=== PATIENT | male | born 1965 | race Caucasian/White ===

== ENCOUNTER 2022-11-15 09:22 | Emergency (ER) | payer OTHER, SELFPAY ==
[2022-11-15 09:27] VITALS: BP 114/78; PULSE 93; RESP 18; TEMP 36.9; O2SAT 99; BMI 40.7
--- NOTE | 2022-11-15 09:53 | XR_ITS ---
[facility] [place] [id number] Patient Name: JUAN VILLAVICENCIO MRN: [id number] date: 1965 Sex: M Assigned Patient Location: ER Current Patient Location: ED.MAIN Accession/Order Number: [id number] Exam Date: 11/15/2022 09:40 Report Date: 11/15/2022 10:19 At the request of: JARAD REBOLLAR Procedure: XR hip RT 2V w/ pelvis STUDY: XR hip RT 2V w/ pelvis, [id number] HISTORY: pain COMPARISON: None FINDINGS: No acute fracture, dislocation, or suspicious osseous lesion. No evidence of osteonecrosis. Minimal osteoarthritis of the right hip. Prominence of the left femoral head neck junction which can be exposed to left-sided CAM-type femoral acetabular impingement. XR/XR hip RT 2V w/ pelvis IMPRESSION: No acute osseous abnormality. Electronically authenticated by: LEMUEL CAMPOS Date: 11/15/2022 10:19
--- NOTE | 2022-11-15 12:19 | ED.GENADUL1 ---
HPI - General Adult General Chief complaint: Extremity Problem, Nontraumatic Stated complaint: HIP PAIN Time Seen by Provider: 11/15/22 12:08 Source: patient Mode of arrival: walk-in Limitations: no limitations History of Present Illness HPI narrative: Patient is a 57-year-old male who is presenting to the Emergency Room today with chief complaint of cellulitis of left leg, pain to left leg, and also right hip pain secondary to the pain to left leg is causing him to put more weight onto his right leg/hip. Patient has no systemic complaints. Patient has no fever, chills, nausea, vomiting, or any other systemic complaints. Patient has no headache. No chest pain or shortness of breath. No significant swelling in the left leg compared to the right, but he does have a bandlike redness/cellulitis starts around his right ankle and progresses up to the right knee. Patient has circumferential redness and swelling. Patient does have a PCP. Patient is a diabetic. Patient states that he is stubborn and didn't call anybody until today he came into the Emergency Room. No other acute complaints. . All systems are negative except as noted/marked. All systems reviewed and otherwise negative. . Nurses note and vital signs reviewed and patient is not hypoxic. General: The patient appears well and in no apparent distress. Patient is resting comfortably on cart. Patient is not toxic, lethargic, or listless Skin: Warm, dry, no pallor noted. There is no rash noted. No petechiae, purpura. Patient has diffuse redness/erythema, mild, to the left lower extremity that starts at the left ankle and comes on the way up to the left knee, irregular border. No swelling in the left leg more compared to the right. Patient has no tenderness to palpation to the posterior aspect of his left calf, popliteal fossa, or thigh. No signs of deep vein thrombosis. No pain to the right posterior aspect of his right lower extremity, no signs of deep vein thrombosis. Head: Normocephalic, atraumatic Eye: Normal conjunctiva, no drainage, EOMI. PERRL Ears, Nose, Mouth, and Throat: oral mucosa is moist. Nares patent. Mouth without vesicles. Cardiovascular: Regular Rate and Rhythm, no murmur, gallop, rub Respiratory: Patient is in no distress, no accessory muscle use, lungs are clear to auscultation, no wheezing, rales or rhonchi Back: non-tender, no CVA tenderness bilaterally to percussion. No CT LS midline pain GI: soft, no tenderness to palpation, no masses appreciated. No rebound, guarding, or rigidity noted. No flank pain bilateral, No distention Musculoskeletal: Patient has full range of motion of all of the extremities Except to his left leg. Patient feels like there is mild swelling to left leg, feeling his left leg is tight, he does have full range of motion of left knee, ankle and foot with mild pain deep vein thrombosis, see skin section. no motor, sensory, or focal neurological deficits Neurological: A&O x3, normal speech Psychiatric: Cooperative Related Data Home Medications Medication Instructions Recorded Confirmed amlodipine 5 mg tablet 5 mg PO QDAY 11/15/22 11/15/22 ergocalciferol (vitamin D2) 1,250 1,250 mcg PO QDAY 11/15/22 11/15/22 mcg (50,000 unit) capsule glimepiride 4 mg tablet 4 mg PO QDAY 11/15/22 11/15/22 lisinopril 20 mg tablet 20 mg PO QDAY 11/15/22 11/15/22 meloxicam 15 mg tablet 15 mg PO .qhs 11/15/22 11/15/22 metformin 1,000 mg tablet 1,000 mg PO BID 11/15/22 11/15/22 metoprolol succinate 50 mg 50 mg PO QDAY 11/15/22 11/15/22 tablet,extended release 24 hr pioglitazone 45 mg tablet 45 mg PO QDAY 11/15/22 11/15/22 tadalafil 20 mg tablet 20 mg PO .qhs PRN sexual activity 11/15/22 11/15/22 vardenafil 20 mg tablet 20 mg PO QDAY 11/15/22 11/15/22 Previous Rx's Medication Instructions Recorded cephalexin 500 mg capsule 500 mg PO QID 10 days #40 caps 11/15/22 sulfamethoxazole 800 1 tab PO TID 10 days #30 tabs 11/15/22 mg-trimethoprim 160 mg tablet (Bactrim DS) Allergies Allergy/AdvReac Type Severity Reaction Status Date / Time No Known Drug Allergies Allergy Verified 11/15/22 09:27 [facility] Medical History (Updated 11/15/22 @ 12:12 by Scout Bustos MD) Social History Smoking status: Current every day smoker Exam Constitutional Vital Signs, click to edit/add: Last Vital Signs Temp 98.4 F 11/15/22 09:27 Pulse 93 H 11/15/22 09:27 Resp 18 11/15/22 09:27 BP 114/78 11/15/22 09:27 Pulse Ox 99 11/15/22 09:27 O2 Del Method Room Air 11/15/22 09:27 Course Vital Signs Vital signs: Vital Signs Temperature 98.4 F 11/15/22 09:27 Pulse Rate 93 H 11/15/22 09:27 Respiratory Rate 18 11/15/22 09:27 Blood Pressure 114/78 11/15/22 09:27 Pulse Oximetry 99 11/15/22 09:27 Oxygen Delivery Method Room Air 11/15/22 09:27 Temperature 98.4 F 11/15/22 09:27 Pulse Rate 93 H 11/15/22 09:27 Respiratory Rate 18 11/15/22 09:27 Blood Pressure 114/78 11/15/22 09:27 Pulse Oximetry 99 11/15/22 09:27 Oxygen Delivery Method Room Air 11/15/22 09:27 Medical Decision Making MDM Narrative Medical decision making narrative: Patient's right hip x--ray shows arthritis to the left hip, compared to the right. Patient's pelvis x-ray, bilateral hips, right hip x-ray show no acute findings or changes. Patient was given IM injection of Rocephin, 2 g secondary to his weight. Patient was given 2 tablets of Bactrim today as well to be aggressive with starting antibiotics therapy for left leg cellulitis. No indication for ultrasound testing rule out deep vein thrombosis at this time. Patient understands importance of following up with PCP the next 2 or 3 days. No questions at discharge Discharge Plan Discharge Chief Complaint: Extremity Problem, Nontraumatic Clinical Impression: Cellulitis of left leg, Lower extremity edema, Hip pain, right Patient Disposition: Home, Self-Care Time of Disposition Decision: 12:18 Condition: Fair Prescriptions / Home Meds: New sulfamethoxazole-trimethoprim [Bactrim DS] 800-160 mg tablet 1 tab PO TID 10 Days Qty: 30 0RF cephalexin 500 mg capsule 500 mg PO QID 10 Days Qty: 40 0RF No Action amlodipine 5 mg tablet 5 mg PO QDAY glimepiride 4 mg tablet 4 mg PO QDAY lisinopril 20 mg tablet 20 mg PO QDAY ergocalciferol (vitamin D2) 1,250 mcg (50,000 unit) capsule 1,250 mcg PO QDAY meloxicam 15 mg tablet 15 mg PO .qhs metformin 1,000 mg tablet 1,000 mg PO BID metoprolol succinate 50 mg tablet extended release 24 hr 50 mg PO QDAY pioglitazone 45 mg tablet 45 mg PO QDAY tadalafil 20 mg tablet 20 mg PO .qhs PRN (Reason: sexual activity) vardenafil 20 mg tablet 20 mg PO QDAY Instructions: Cellulitis (ED), Leg Edema (ED), Hip Pain (ED) Additional Instructions: Keep her legs elevated, especially nighttime in your sleeping. The redness here left leg will get outside the skin marker line that was made today before it starts getting better. The redness will go one or 2 fingers outside the line before starts improving like discussed at bedside. Take all your antibiotics as prescribed. If the redness is going up into the middle of your left thigh, and he streaks going up into her middle of the left thigh or into her groin, he started having fever, chills, nausea, vomiting, or any other systemic complaints, return to the Emergency Room. A copy of your x-ray report was given to you. Stand Alone Forms: Portal Instructions Referrals: MARIA L MITTAL [Primary Care Provider] - 1 week
[2022-11-15] MEDS: CEFTRIAXONE 1,000 MG, LIDOCAINE HCL/PF 2.1 ML IM ×2 (12:38→12:39)
[2022-11-15] MEDS: SULFAMETHOXAZOLE/TRIMETHOPRIM 800-160 MG TABLET 2 TAB PO (12:38)
== END 2022-11-15 12:41 | disposition home or self-care (01) ==
PROVIDERS: Emergency Provider Emergency Medicine; PCP Physician Assistant
DX: L03.116 Cellulitis of left lower limb (principal); M25.551 Pain in right hip; R60.0 Localized edema; F17.210 Nicotine dependence, cigarettes, uncomplicated; Z79.899 Other long term (current) drug therapy; Z79.84 Long term (current) use of oral hypoglycemic drugs; E11.9 Type 2 diabetes mellitus without complications
CPT/HCPCS: 73502; 96372; 99284

== ENCOUNTER 2022-11-19 10:35 | Outpatient (OUT) | payer OTHER, SELFPAY ==
--- NOTE | 2022-11-19 10:41 | US_ITS ---
The [address] [address] Patient Name: JUAN VILLAVICENCIO MRN: [id number] date: 1965 Sex: M Assigned Patient Location: US Current Patient Location: US Accession/Order Number: [id number] Exam Date: 11/19/2022 10:42 Report Date: 11/19/2022 11:17 At the request of: MARIA L MITTAL Procedure: US venous doppler LE LT ULTRASOUND OF BILATERAL LOWER EXTREMITY VENOUS SYSTEMS WITH DUPLEX, 11/19/2022 10:42 AM EDT INDICATION: Left lower leg erythema x2 weeks. COMPARISON: None. TECHNIQUE: Multi-planar real-time ultrasonography of the left lower extremity venous systems using grayscale imaging supplemented by color Doppler. Augmentation and compression maneuvers were utilized as needed. FINDINGS: The saphenofemoral junction, common femoral, profunda femoral, superficial femoral, popliteal, posterior tibial and anterior tibial veins are fully compressible. Respiratory variation and waveform response to augmentation within normal limits. US/US venous doppler LE LT IMPRESSION: Negative for deep venous thrombosis within the left lower extremity. Electronically authenticated by: WEN NUNEZ Date: 11/19/2022 11:17
== END 2022-11-19 10:36 | disposition home or self-care (01) ==
LOC: US 10:36
PROVIDERS: PCP Physician Assistant; Visit Provider Physician Assistant
DX: M79.89 Other specified soft tissue disorders (principal); M79.662 Pain in left lower leg; L53.9 Erythematous condition, unspecified
CPT/HCPCS: 93971

== ENCOUNTER 2023-01-26 00:36 | Inpatient (IN) | payer OTHER, SELFPAY ==
[2023-01-26] VITALS (25 sets, daily range): BP systolic 123–185; BP diastolic 62–91; PULSE 10–109; RESP 16–32; TEMP 36.7–39.4; O2SAT 92–96; BMI 49.4
--- NOTE | 2023-01-26 00:39 | ED_ITS ---
HPI - Extremity Problem General Chief complaint: Extremity Problem, Nontraumatic Stated complaint: LEG INFECTION Time Seen by Provider: 01/26/23 00:39 History of Present Illness HPI Narrative: patient presents complaining of redness and pain of his left leg for a couple of days. Last admitted for infection of his leg 11/27. States tonight low grade fever and started to feel weak. He is diabetic. Brought to the ER via Squad. No nausea or chills Complaint: Reports extremity pain and extremity swelling Related Data Home Medications Medication Instructions Recorded Confirmed amlodipine 5 mg tablet 5 mg PO QDAY 11/15/22 11/15/22 ergocalciferol (vitamin D2) 1,250 1,250 mcg PO QDAY 11/15/22 11/15/22 mcg (50,000 unit) capsule glimepiride 4 mg tablet 4 mg PO QDAY 11/15/22 11/15/22 lisinopril 20 mg tablet 20 mg PO QDAY 11/15/22 11/15/22 meloxicam 15 mg tablet 15 mg PO .qhs 11/15/22 11/15/22 metformin 1,000 mg tablet 1,000 mg PO BID 11/15/22 11/15/22 metoprolol succinate 50 mg 50 mg PO QDAY 11/15/22 11/15/22 tablet,extended release 24 hr pioglitazone 45 mg tablet 45 mg PO QDAY 11/15/22 11/15/22 tadalafil 20 mg tablet 20 mg PO .qhs PRN sexual activity 11/15/22 11/15/22 vardenafil 20 mg tablet 20 mg PO QDAY 11/15/22 11/15/22 Previous Rx's Medication Instructions Recorded cephalexin 500 mg capsule 500 mg PO QID 10 days #40 caps 11/15/22 sulfamethoxazole 800 1 tab PO TID 10 days #30 tabs 11/15/22 mg-trimethoprim 160 mg tablet (Bactrim DS) Allergies Allergy/AdvReac Type Severity Reaction Status Date / Time No Known Drug Allergies Allergy Verified 11/15/22 09:27 Review of Systems ROS Status of ROS 10 or more systems reviewed and unremarkable except as noted in history and below [facility] Medical History (Updated 01/26/23 @ 02:42 by Zach Houston MD) Diabetes ?E11.9 - Type 2 diabetes mellitus without complications (ICD-10) High cholesterol ?E78.00 - Pure hypercholesterolemia, unspecified (ICD-10) Hypertension ?I10 - Essential (primary) hypertension (ICD-10) Social History Smoking status: Former smoker Exam Constitutional Vital Signs, click to edit/add: Last Vital Signs Temp 99.1 F 01/26/23 00:38 Pulse 109 H 01/26/23 00:38 Resp 16 01/26/23 00:38 BP 160/91 H 01/26/23 00:38 Pulse Ox 96 01/26/23 00:38 O2 Del Method Room Air 01/26/23 00:38 Common normals: no apparent distress, average body habitus, oriented x3, no limitations, healthy appearing, alert and well nourished Eye Common normals: EOMs intact bilaterally and conjunctivae normal Respiratory Common normals: normal respiratory effort, no retractions, no use of accessory muscles and clear to auscultation bilaterally Cardio Common normals: regular rate, regular rhythm, S1 normal heart sound and S2 normal heart sound GI Common normals: Normal to inspection, nondistended, normoactive bowel sounds present and soft to palpation Extremity Other: swelling and erythema of his entire lower left leg. mild tenderness. Leg is warm Neuro Common normals: oriented x3, CN's II-XII intact bilaterally, moves all extremities and no focal motor deficits Psych Appearance: grossly normal Course Vital Signs Vital signs: Vital Signs Temperature 99.1 F 01/26/23 00:38 Pulse Rate 109 H 01/26/23 00:38 Respiratory Rate 16 01/26/23 00:38 Blood Pressure 160/91 H 01/26/23 00:38 Pulse Oximetry 96 01/26/23 00:38 Oxygen Delivery Method Room Air 01/26/23 00:38 Temperature 99.1 F 01/26/23 00:38 Pulse Rate 109 H 01/26/23 00:38 Respiratory Rate 16 01/26/23 00:38 Blood Pressure 160/91 H 01/26/23 00:38 Pulse Oximetry 96 01/26/23 00:38 Oxygen Delivery Method Room Air 01/26/23 00:38 MDM - Extremity (Nontraumatic) MDM Narrative Medical decision making narrative: patient is diabetic. Past history of cellulitis left leg 11/27. Now presents complaining of redness and swelling of the left leg for past couple of days. Low grade fever at home. Started to feel weak tonight and arrives via Squad. Low grade fever of 99.1., tachycardia and elevated lactic acid and WBC 15.6. left leg is warm erythematous and tender. Also has mildly elevated d-dimer. IV clindamycin ordered. Hospitalist paged for admission Lab Data Labs: Lab Results 01/26/23 Range/Units 01:09 WBC 15.6 H (4.0-11.0) 10^3/uL RBC 4.42 L (4.70-6.10) 10^6/uL Hgb 13.4 L (14.0-18.0) g/dL Hct 40.3 L (42.0-54.0) % MCV 91.2 (80.0-94.0) fL MCH 30.3 (25.9-34.0) pg MCHC 33.3 (29.9-35.2) g/dL RDW 14.6 (11.0-15.0) % Plt Count 163 (150-450) 10^3/uL MPV 9.8 (9.5-13.5) fL Neut % (Auto) 93.3 H (43.0-75.0) % Lymph % (Auto) 2.6 L (20.5-60.0) % Starke % (Auto) 3.2 (1.7-12.0) % Eos % (Auto) 0.0 L (0.9-7.0) % Baso % (Auto) 0.1 L (0.2-2.0) % Neut # (Auto) 14.5 H (1.4-6.5) 10^3/uL Lymph # (Auto) 0.4 L (1.2-3.8) 10^3/uL Starke # (Auto) 0.5 (0.3-0.8) 10^3/uL Eos # (Auto) 0.0 (0.0-0.7) 10^3/uL Baso # (Auto) 0.0 (0.0-0.1) 10^3/uL Abs Immat Gran (auto) 0.13 H (0.00-0.03) 10^3/uL Imm/Tot Granulo (auto) 0.8 H (0.0-0.5) % D-Dimer 1.23 H* (<=0.59) mg/L FEU Sodium 131 L (136-145) mmol/L Potassium 3.7 (3.5-5.1) mmol/L Chloride 93 L (98-107) mmol/L Carbon Dioxide 29.3 (21.0-32.0) mmol/L Anion Gap 12.4 BUN 18.0 (7.0-18.0) mg/dL Creatinine 1.25 (0.70-1.30) mg/dL Est GFR ( Amer) >60 (>=60) Est GFR (Non-Af Amer) 59 L (>=60) BUN/Creatinine Ratio 14.4 Glucose 293 H (74-106) mg/dL Lactate 2.6 H* (0.4-2.0) mmol/L Calcium 9.2 (8.5-10.1) mg/dL Troponin I High Sens 45.8 (4.0-76.1) pg/mL Discharge Plan Discharge Chief Complaint: Extremity Problem, Nontraumatic Clinical Impression: Cellulitis of left leg, Elevated d-dimer Prescriptions / Home Meds: No Action amlodipine 5 mg tablet 5 mg PO QDAY glimepiride 4 mg tablet 4 mg PO QDAY lisinopril 20 mg tablet 20 mg PO QDAY ergocalciferol (vitamin D2) 1,250 mcg (50,000 unit) capsule 1,250 mcg PO QDAY meloxicam 15 mg tablet 15 mg PO .qhs metformin 1,000 mg tablet 1,000 mg PO BID metoprolol succinate 50 mg tablet extended release 24 hr 50 mg PO QDAY pioglitazone 45 mg tablet 45 mg PO QDAY tadalafil 20 mg tablet 20 mg PO .qhs PRN (Reason: sexual activity) vardenafil 20 mg tablet 20 mg PO QDAY sulfamethoxazole-trimethoprim [Bactrim DS] 800-160 mg tablet 1 tab PO TID 10 Days Qty: 30 0RF cephalexin 500 mg capsule 500 mg PO QID 10 Days Qty: 40 0RF Referrals: MARIA L MITTAL [Primary Care Provider] - 1 week
--- NOTE | 2023-01-26 00:42 | ECG_ITS ---
[facility] Test Date: 2023-01-26 Pat Name: JUAN VILLAVICENCIO Department: Room: - Gender: Male Physical Therapist Aide: : 1965 Requested By: [id number] Order Number: [id number] Reading MD: VILMA MULLER Measurements Intervals [place] Rate: 106 P: 70 OR: 144 QRS: 13 QRSD: 112 T: 20 QT: 372 QTc: 434 Interpretive Statements 1120 Sinus tachycardia RIGHT BUNDLE BRANCH BLOCK [address] depression, probably normal 9140 abnormal rhythm ECG No previous ECG available for comparison Electronically Signed On 01-27-2023 7:17:36 EST by VILMA MULLER
[2023-01-26 01:16] LABS: Basophils Percent Auto 0.1 % (0.2-2.0); Hematocrit 40.3 % (42.0-54.0); Hemoglobin 13.4 g/dL (14.0-18.0); Immature Granulocytes Abs Auto 0.13 10^3/uL (0.00-0.03); Immature Granulocytes Pct Auto 0.8 % (0.0-0.5); Lymphocytes Absolute Auto 0.4 10^3/uL (1.2-3.8); Lymphocytes Percent Auto 2.6 % (20.5-60.0); Mean Corpuscular HGB Conc 33.3 g/dL (29.9-35.2); Mean Corpuscular Hemoglobin 30.3 pg (25.9-34.0); Mean Corpuscular Volume 91.2 fL (80.0-94.0); Mean Platelet Volume 9.8 fL (9.5-13.5); Monocytes Absolute Auto 0.5 10^3/uL (0.3-0.8); Monocytes Percent Auto 3.2 % (1.7-12.0); Neutrophils Absolute Auto 14.5 10^3/uL (1.4-6.5); Neutrophils Percent Auto 93.3 % (43.0-75.0); Platelet Count 163 10^3/uL (150-450); Red Blood Count 4.42 10^6/uL (4.70-6.10); Red Cell Distribution Width 14.6 % (11.0-15.0); White Blood Count 15.6 10^3/uL (4.0-11.0)
[2023-01-26] MEDS: 0.9 % SODIUM CHLORIDE 1,000 ML 100 ML IV ×3 (01:19→19:42)
[2023-01-26] MEDS: CLINDAMYCIN PHOSPHATE/D5W 900 MG/50 ML PIGGYBACK 100 MG IV (01:20)
[2023-01-26 01:34] LABS: Anion Gap 12.4; BUN Creatinine Ratio 14.4; Calcium 9.2 mg/dL (8.5-10.1); Carbon Dioxide 29.3 mmol/L (21.0-32.0); Chloride 93 mmol/L (98-107); Estimated GFR (African America >60 (>=60); Estimated GFR (Non-African Ame 59 (>=60); Glucose 293 mg/dL (74-106); Potassium 3.7 mmol/L (3.5-5.1); Sodium 131 mmol/L (136-145); Troponin I High Sensitivity 45.8 pg/mL (4.0-76.1)
[2023-01-26 01:40] LABS: Lactate/Lactic Acid 2.6 mmol/L (0.4-2.0)
[2023-01-26 01:49] LABS: D Dimer 1.23 mg/L FEU (<=0.59)
--- NOTE | 2023-01-26 04:32 | P.PN_ITS ---
Progress Note: Subjective Subjective Interval history: 58yo man with a PMHx of HTN and T2DM who presented to the ED with LLE pain and swelling. Exam Constitutional Vital Signs, click to edit/add: Last Vital Signs Temp 98.7 F 01/26/23 03:52 Pulse 10 L 01/26/23 03:52 Resp 20 01/26/23 03:52 BP 185/62 H 01/26/23 03:52 Pulse Ox 92 L 01/26/23 03:52 O2 Del Method Room Air 01/26/23 03:52 Extremity General: other findings (Erythema to left lower extremity from ankle to knee. There is a small wound) Progress Note: Objective Labs Labs: Short CBC 01/26/23 Range/Units 01:09 WBC 15.6 H (4.0-11.0) 10^3/uL Hgb 13.4 L (14.0-18.0) g/dL Hct 40.3 L (42.0-54.0) % Plt Count 163 (150-450) 10^3/uL BMP 01/26/23 01:09 Sodium 131 L Potassium 3.7 Chloride 93 L Carbon Dioxide 29.3 BUN 18.0 Creatinine 1.25 Glucose 293 H Calcium 9.2 Progress Note: A&P Assessment and Plan (1) Cellulitis of left leg: Assessment and Plan: - admit to hospitalist service - c/w ceftriaxone and vancomycin - f/u blood cultures - pain control - track border of cellulitis (2) Elevated d-dimer: Assessment and Plan: He has an elevated D-dimer and swelling in his leg. Most likely the leg is swollen from cellulitis but we should rule out a DVT. - check US duplex of left LE (3) Diabetes: Assessment and Plan: - insulin sliding scale - restart oral medications (4) High cholesterol: Assessment and Plan: - c/w simvastatin (5) Hypertension: Assessment and Plan: - c/w lisinopril, amlodipine, metoprolol Telemedicine Attestation Telemedicine Attestation I conducted this encounter from [place] via secure live, [id number] video conference with the patient, located at [facility] with Kaitlin. Prior to the interview, the risks and benefits of telemedicine were discussed with the patient and verbal consent was obtained.
--- NOTE | 2023-01-26 04:50 | US_ITS ---
[address] [address] Patient Name: JUAN VILLAVICENCIO MRN: [id number] date: 1965 Sex: M Assigned Patient Location: MS Current Patient Location: MS Accession/Order Number: [id number] Exam Date: 01/26/2023 07:40 Report Date: 01/26/2023 09:58 At the request of: CHECO CARBONE Procedure: US venous doppler LE LT EXAMINATION: US venous doppler LE LT HISTORY: elevated D-dimer, swelling of left foot COMPARISON: Ultrasound venous Doppler lower extremity left 11/19/2022 FINDINGS: REGION: Left lower extremity THROMBI: None. COMPRESSIBILITY: Normal compressibility. FLOW: Normal waveform and antegrade flow between 5 and 20 cm/s. OTHER: None. US/US venous doppler LE LT IMPRESSION: 1. No deep vein thrombus within the left lower extremity. Electronically authenticated by: LYLY RUVALCABA Date: 01/26/2023 09:58
[2023-01-26 05:38] LABS: Basophils Percent Auto 0.2 % (0.2-2.0); Hematocrit 36.1 % (42.0-54.0); Hemoglobin 12.2 g/dL (14.0-18.0); Immature Granulocytes Abs Auto 0.17 10^3/uL (0.00-0.03); Immature Granulocytes Pct Auto 1.2 % (0.0-0.5); Lymphocytes Absolute Auto 0.5 10^3/uL (1.2-3.8); Lymphocytes Percent Auto 3.7 % (20.5-60.0); Mean Corpuscular HGB Conc 33.8 g/dL (29.9-35.2); Mean Corpuscular Hemoglobin 30.7 pg (25.9-34.0); Mean Corpuscular Volume 90.7 fL (80.0-94.0); Mean Platelet Volume 10.2 fL (9.5-13.5); Monocytes Absolute Auto 0.6 10^3/uL (0.3-0.8); Monocytes Percent Auto 3.9 % (1.7-12.0); Neutrophils Absolute Auto 12.9 10^3/uL (1.4-6.5); Platelet Count 146 10^3/uL (150-450); Red Blood Count 3.98 10^6/uL (4.70-6.10); Red Cell Distribution Width 14.4 % (11.0-15.0); White Blood Count 14.2 10^3/uL (4.0-11.0)
[2023-01-26] MEDS: CEFTRIAXONE 1,000 MG in 0.9 % SODIUM CHLORIDE 50 ML 100 MG IV (05:40)
[2023-01-26 05:45] LABS: BUN Creatinine Ratio 15.9; Calcium 8.8 mg/dL (8.5-10.1); Carbon Dioxide 28.5 mmol/L (21.0-32.0); Chloride 95 mmol/L (98-107); Estimated GFR (African America >60 (>=60); Estimated GFR (Non-African Ame >60 (>=60); Glucose 282 mg/dL (74-106); Potassium 3.5 mmol/L (3.5-5.1); Sodium 132 mmol/L (136-145)
[2023-01-26 05:55] LABS: Lactate/Lactic Acid 2.1 mmol/L (0.4-2.0)
[2023-01-26 07:49] LABS: Estimated Average Glucose 171 mg/dL; Glycohemoglobin A1C 7.6 % (4.5-6.2)
[2023-01-26] MEDS: ENOXAPARIN SODIUM 40 MG/0.4 ML SYRINGE SUBQ (09:22)
[2023-01-26] MEDS: HYDROCHLOROTHIAZIDE 25 MG TABLET PO (09:23)
[2023-01-26] MEDS: PIOGLITAZONE 15 MG TABLET 45 MG PO (09:23)
[2023-01-26] MEDS: LISINOPRIL 20 MG TABLET PO ×2 (09:24→20:31)
[2023-01-26] MEDS: AMLODIPINE BESYLATE 5 MG TABLET PO (09:24)
[2023-01-26] MEDS: METOPROLOL SUCCINATE 50 MG TAB.ER.24H PO (09:24)
[2023-01-26] MEDS: INSULIN ASPART 300 UNIT/3 ML PEN SUBQ ×4 (09:24→21:21)
[2023-01-26] MEDS: ACETAMINOPHEN 325 MG TABLET 650 MG PO ×2 (09:45→21:25)
[2023-01-26 10:26] LABS: Lactate/Lactic Acid 1.8 mmol/L (0.4-2.0)
[2023-01-26] MEDS: VANCOMYCIN HCL 2,000 MG in 0.9 % SODIUM CHLORIDE 500 ML 250 MG IV ×2 (10:35→22:23)
[2023-01-26 11:12] LABS: Glucometer 210 mg/dL (74-106)
--- NOTE | 2023-01-26 13:10 | DIETREC ---
Pt's estimated nutrient requirements are calculated at 9322-3782 kcal (20-25 kcal/kg adjusted BW 118.2 kg), 142-177 gm PRO (1.2-1.5 gm/kg adj BW 118.2 kg). Recommend change diet order to 2200 kcal CCD. Also recommend 30 mL PRO-stat BID to ensure adequate PRO for healing and 1 packet Rickey BID to aid wound healing.
--- NOTE | 2023-01-26 13:30 | P.HP_ITS ---
Agree with input and findings from nurse practitioner. Would also add patient meets criteria for his severe sepsis.(Tachycardia, respiratory distress, leukocytosis, positive lactate) treatment currently would be the same. Also thrombocytopenia-we will monitor daily. Sugars well-controlled at home per patient but likely elevated here with the severe sepsis. H&P: HPI History of Present Illness Chief complaint: LEG INFECTION Narrative: Date/time of exam: 01/26/23 0891 This is a 58-year-old male patient with a past medical history as outlined below including poorly controlled DM 2, hypertension, and hyperlipidemia; who presented to the ED with a recurrent left lower extremity cellulitic infection. The patient was seen in the ED in November for the same issue and was treated effectively with outpatient antibiotics. Patient reports complete resolution of that infection. He scraped his left haines on something last week. He noted yesterday that he had a red band developing in the area around that injury. By the time he went back to bed there was significant increase in the redness and swelling and pain of that extremity. He was unable able to sleep due to fevers (100.0) and chills and presented to the ED for further evaluation. Work-up in the ED noted leukocytosis (15.6), lactic acidosis (2.6), borderline fever (99.9), and clinical findings consistent with significant cellulitis. He was admitted last night to the hospitalist service for definitive treatment with IV antibiotics. At the time of my exam this morning the patient is warm to the touch and repeat temperature taken by nursing is now 102.9. The patient is alert and oriented in no mottling is noted on exam. His BP remains stable, but he is mildly tachycardic. Cellulitis encompassing more than 50% of the LLE is noted on exam. No wound drainage is present. Clinical concern exists for sepsis based on exam findings. He reports feeling a little better after receiving IVFs and antibiotics overnight. 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 - Other postprocedural complications and disorders of genitourinary system (ICD-10) ?N47.5 - Adhesions of prepuce and glans penis (ICD-10) Surgical History (Updated 01/26/23 @ 03:45 by Yuli Lo) Hx of tonsillectomy ?Z90.89 - Acquired absence of other organs (ICD-10) Family History (Updated 01/26/23 @ 03:47 by Yuli Lo) Sister Family history of cancer Mother Family history of diabetes mellitus Family history of hypertension Family history of myocardial infarction Father Family history of diabetes mellitus Grandfather Family history of stroke Social History (Updated 01/26/23 @ 03:50 by Yuli Lo) Within the past year, how often did you have a drink containing alcohol: 2-3 times a week Within the past year, how many standard drinks containing alcohol did you have on a typical day: 3 or 4 Within the past year, how often did you have six or more drinks on one occasion: less than monthly Total score: 3 Score interpretation: A score of 4 or more indicates drinking is likely to affect patient's safety. 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 Highest level of school completed/degree received: 11th grade Do you want help with school or training: No Are you now , , , , never or living with a partner: In a typical week, how many times do you talk on the telephone with family, friends, or neighbors: 3 or more times per week How often do you get together with friends or relatives: twice per week How often do you attend jehovah's witness or mandaen services: 1-3 times per year Do you belong to any clubs or organizations such as jehovah's witness groups unions, fraternal or athletic groups, or school groups: no Total score: 1 Score interpretation: A score of less than or equal to 1 indicates the most socially isolated. Little interest or pleasure in doing things: not at all Feeling down, depressed, or hopeless: not at all Feel stressed/tense/nervous/anxious/difficulty sleeping: not at all Due to disability, difficulty making decisions: No Do you think of yourself as: straight/heterosexual Gender Identity: male Meds Home Medications and Allergies Home Medications Medication Instructions Recorded Confirmed Type amlodipine 5 mg tablet 5 mg PO QDAY 11/15/22 01/26/23 History ergocalciferol (vitamin D2) 1,250 1,250 mcg PO .COMPLEX 11/15/22 01/26/23 History mcg (50,000 unit) capsule glimepiride 4 mg tablet 4 mg PO BID 11/15/22 01/26/23 History lisinopril 20 mg tablet 20 mg PO QDAY 11/15/22 01/26/23 History meloxicam 15 mg tablet 15 mg PO .qhs 11/15/22 01/26/23 History metformin 1,000 mg tablet 1,000 mg PO BID 11/15/22 01/26/23 History metoprolol succinate 50 mg 50 mg PO QDAY 11/15/22 01/26/23 History tablet,extended release 24 hr pioglitazone 45 mg tablet 45 mg PO QDAY 11/15/22 01/26/23 History lisinopril 20 1 tab PO .AM 01/26/23 01/26/23 History mg-hydrochlorothiazide 25 mg tablet simvastatin 40 mg tablet 40 mg PO BEDTIME 01/26/23 01/26/23 History tizanidine 4 mg capsule 4 mg PO Q8H PRN Back Spasm 01/26/23 01/26/23 History Allergies Allergy/AdvReac Type Severity Reaction Status Date / Time No Known Drug Allergies Allergy Verified 11/15/22 09:27 Exam Constitutional Vital Signs, click to edit/add: Last Vital Signs Temp 99.1 F 01/26/23 11:12 Pulse 102 H 01/26/23 10:32 Resp 18 01/26/23 10:32 BP 137/77 01/26/23 10:32 Pulse Ox 93 L 01/26/23 10:32 O2 Del Method Room Air 01/26/23 10:32 Common normals: no apparent distress, oriented x3, alert and well nourished General appearance: cooperative Nutritional appearance: obese Orientation/consciousness: Yes awake HENMT Common normals: normocephalic, head/scalp atraumatic, hearing grossly normal bilaterally and moist oral mucous membranes Face and sinus: normal facial exam Eye Common normals: PERRL, EOMs intact bilaterally, conjunctivae normal and no scleral icterus Alignment: alignment normal Eyelid: eyelids normal Neck & C-Spine Common normals: full ROM, supple and no JVD Chest Common normals: inspection of chest normal Chest: symmetrical chest wall rise Respiratory Common normals: normal respiratory effort, no retractions, no use of accessory muscles and clear to auscultation bilaterally Effort & inspection: able to speak in complete sentences Cardio Common normals: no JVD, regular rhythm, S1 normal heart sound, S2 normal heart sound, no gallops, no clicks, no murmurs, no rub and peripheral pulses 2+ throughout Rate: tachycardic GI Common normals: Normal to inspection, nondistended, normoactive bowel sounds present, soft to palpation, non-tender, no hepatosplenomegaly, no masses and no bruits Bladder/kidney exam: bladder normal to palpation Back & Pelvis Common normals: thoracic and lumbar spine normal to inspection Extremity Common normals: normal capillary refill General: edema (trace bilat insteps); no clubbing and no cyanosis Left lower extremity: lower leg (Entire lower leg except the foot red, swollen, warm, tender) Neuro Iva Coma Scale: GCS not evaluated Common normals: CN's II-XII intact bilaterally, moves all extremities, no focal motor deficits and no sensory deficits noted Speech: speech normal Motor exam: strength 5/5 throughout Psych Common normals: mental status grossly normal, thought process normal, affect normal and activity/motor behavior normal Results Labs Labs: Short CBC 01/26/23 01/26/23 Range/Units 01:09 05:10 WBC 15.6 H 14.2 H (4.0-11.0) 10^3/uL Hgb 13.4 L 12.2 L (14.0-18.0) g/dL Hct 40.3 L 36.1 L (42.0-54.0) % Plt Count 163 146 L (150-450) 10^3/uL BMP 01/26/23 01/26/23 01:09 05:10 Sodium 131 L 132 L Potassium 3.7 3.5 Chloride 93 L 95 L Carbon Dioxide 29.3 28.5 BUN 18.0 17.0 Creatinine 1.25 1.07 Glucose 293 H 282 H Calcium 9.2 8.8 Pulse Oximetry Attestation: I have reviewed the pertinent pulse oximetry results. Assessment and Plan Assessment and Plan (1) Sepsis: Assessment and Plan: ACUTE * Adm inpatient * AEB * T-102.9, P-109, R-30, WBC-15.6, Lactic Acid 2.6, Source: LLE Cellulitis * Continue NS IVF as initiated in the ED, after 1 liter bolus was administered * No clinical concern for septic shock at this time * Monitor VS q4h * No blood cultures drawn in ED - draw BC x 2 now * CBC, CMP in AM (2) Cellulitis of left leg: Assessment and Plan: ACUTE * >50% LLE * IVPB Vancomycin and rocephin initiated in the ED * Continue vancomycin * Change gram neg coverage to Zosyn in setting of sepsis for broader empiric coverage * No wound drainage to culture at this time * Cellulitic margins marked (3) Hyponatremia: Assessment and Plan: ACUTE * Likely d/t dehydration in setting of sepsis and concurrent HCTZ administration * Hold HCTZ * IVF as above * CMP daily (4) Elevated d-dimer: Assessment and Plan: ACUTE * Obtain venous doppler study today to r/o DVT of the affected extremity (5) Diabetes: Assessment and Plan: CHRONIC * Hold home glimepiride, pioglitazone, and metformin for now during acute infection/hospitalization * ACHS glucometer checks * CC diet - 2200 Kcal per molded rubber goods cutter recommendations * Med dose SS insulin correction * start Levemir 20 un at HS tonight * A1C 7.6 today - not at goal but not severely abnormal either. Defer to outpatient management after discharge (6) High cholesterol: Assessment and Plan: CHRONIC * Continue home statin * low threshold to hold if renal or liver function is impaired (7) Hypertension: Assessment and Plan: CHRONIC * Continue home ACEi * Low threshold to hold if BPs become soft in setting of sepsis * Hold HCTZ d/t hyponatremia/sepsis/IVF admin
[2023-01-26] MEDS: PIPERACILLIN SODIUM/TAZOBACTAM 3.375 GM in 0.9 % SODIUM CHLORIDE 50 ML IV ×2 (14:32→21:22)
[2023-01-26 16:13] LABS: Glucometer 154 mg/dL (74-106)
[2023-01-26 20:03] LABS: Glucometer 204 mg/dL (74-106)
[2023-01-26] MEDS: JUVEN PACKET 1 PACKET PO (20:31)
[2023-01-26] MEDS: PROSTAT 15 GM PROTEIN/100 CAL 30 ML LIQUID PACKET PO (20:31)
[2023-01-26] MEDS: TIZANIDINE HCL 4 MG TABLET PO (20:32)
[2023-01-26] MEDS: ATORVASTATIN CALCIUM 20 MG TABLET PO (21:19)
[2023-01-26] MEDS: MELOXICAM 7.5 MG TABLET 15 MG PO (21:19)
[2023-01-26] MEDS: INSULIN DETEMIR 300 UNIT/3 ML INSULN.PEN 20 UNIT SUBQ (21:20)
[2023-01-26 22:34] LABS: Glucometer 267 mg/dL (74-106)
[2023-01-27] VITALS (7 sets, daily range): BP systolic 91–147; BP diastolic 56–81; PULSE 78–93; RESP 18–20; TEMP 36.6–37.4; O2SAT 92–95
[2023-01-27 05:08] LABS: Basophils Percent Auto 0.3 % (0.2-2.0); Eosinophils Absolute Auto 0.1 10^3/uL (0.0-0.7); Eosinophils Percent Auto 0.4 % (0.9-7.0); Hematocrit 36.8 % (42.0-54.0); Immature Granulocytes Abs Auto 0.07 10^3/uL (0.00-0.03); Immature Granulocytes Pct Auto 0.6 % (0.0-0.5); Lymphocytes Absolute Auto 1.1 10^3/uL (1.2-3.8); Lymphocytes Percent Auto 9.4 % (20.5-60.0); Mean Corpuscular HGB Conc 32.6 g/dL (29.9-35.2); Mean Corpuscular Hemoglobin 30.6 pg (25.9-34.0); Mean Corpuscular Volume 93.9 fL (80.0-94.0); Mean Platelet Volume 10.6 fL (9.5-13.5); Monocytes Absolute Auto 1.1 10^3/uL (0.3-0.8); Monocytes Percent Auto 9.6 % (1.7-12.0); Neutrophils Absolute Auto 9.5 10^3/uL (1.4-6.5); Neutrophils Percent Auto 79.7 % (43.0-75.0); Platelet Count 130 10^3/uL (150-450); Red Blood Count 3.92 10^6/uL (4.70-6.10); Red Cell Distribution Width 15.1 % (11.0-15.0); White Blood Count 11.9 10^3/uL (4.0-11.0)
[2023-01-27] MEDS: 0.9 % SODIUM CHLORIDE 1,000 ML 100 ML IV ×2 (05:10→15:29)
[2023-01-27] MEDS: PIPERACILLIN SODIUM/TAZOBACTAM 3.375 GM in 0.9 % SODIUM CHLORIDE 50 ML IV ×3 (05:10→21:28)
[2023-01-27 05:28] LABS: Estimated Average Glucose 171 mg/dL; Glycohemoglobin A1C 7.6 % (4.5-6.2)
[2023-01-27 05:42] LABS: Alanine Aminotransferase 24 U/L (16-63); Albumin Globulin Ratio 0.6; Albumin Level 2.8 g/dL (3.4-5.0); Alkaline Phosphatase 67 U/L (46-116); Aspartate Amino Transferase 31 U/L (15-37); Bilirubin Total 0.7 mg/dL (0.2-1.0); Calcium 8.6 mg/dL (8.5-10.1); Carbon Dioxide 27.7 mmol/L (21.0-32.0); Chloride 98 mmol/L (98-107); Estimated GFR (African America >60 (>=60); Estimated GFR (Non-African Ame >60 (>=60); Globulin 4.6 g/dL; Glucose 228 mg/dL (74-106); Potassium 3.7 mmol/L (3.5-5.1); Sodium 132 mmol/L (136-145); Total Protein 7.4 g/dL (6.4-8.2)
[2023-01-27 07:35] LABS: Glucometer 204 mg/dL (74-106)
[2023-01-27] MEDS: METOPROLOL SUCCINATE 50 MG TAB.ER.24H PO (08:34)
[2023-01-27] MEDS: AMLODIPINE BESYLATE 5 MG TABLET PO (08:34)
[2023-01-27] MEDS: LISINOPRIL 20 MG TABLET PO ×2 (08:34→20:02)
[2023-01-27] MEDS: JUVEN PACKET 1 PACKET PO ×2 (08:35→20:04)
[2023-01-27] MEDS: ENOXAPARIN SODIUM 40 MG/0.4 ML SYRINGE SUBQ (08:35)
[2023-01-27] MEDS: PROSTAT 15 GM PROTEIN/100 CAL 30 ML LIQUID PACKET PO ×2 (08:35→20:01)
[2023-01-27] MEDS: INSULIN ASPART 300 UNIT/3 ML PEN SUBQ ×4 (08:36→21:25)
--- NOTE | 2023-01-27 11:03 | P.PN_ITS ---
Progress Note: Subjective Subjective Interval history: Leg definitely looks improved, less swelling. Erythema is still at the line of demarcation but has not spread outside the line of demarcation. Exam Constitutional Vital Signs, click to edit/add: Last Vital Signs Temp 99.1 F 01/27/23 05:36 Pulse 84 01/27/23 05:36 Resp 20 01/27/23 05:36 BP 122/71 01/27/23 08:34 Pulse Ox 92 L 01/27/23 05:36 O2 Del Method Room Air 01/27/23 05:36 Documenting provider has reviewed patient's vital signs: yes Common normals: no apparent distress HENMT Common normals: moist oral mucous membranes Chest Common normals: inspection of chest normal Respiratory Common normals: normal respiratory effort and no retractions Cardio Common normals: regular rate and regular rhythm GI Common normals: Normal to inspection, nondistended, normoactive bowel sounds present Extremity Common normals: abnormal to inspection Other: Erythema at the line of demarcation, less edema than previous day Progress Note: Objective Labs Labs: Short CBC 01/27/23 Range/Units 04:19 WBC 11.9 H (4.0-11.0) 10^3/uL Hgb 12.0 L (14.0-18.0) g/dL Hct 36.8 L (42.0-54.0) % Plt Count 130 L (150-450) 10^3/uL BMP 01/27/23 04:19 Sodium 132 L Potassium 3.7 Chloride 98 Carbon Dioxide 27.7 BUN 25.0 H Creatinine 1.04 Glucose 228 H Calcium 8.6 Liver Function 01/27/23 Range/Units 04:19 Total Bilirubin 0.7 (0.2-1.0) mg/dL AST 31 (15-37) U/L ALT 24 (16-63) U/L Alkaline Phosphatase 67 (46-116) U/L Albumin 2.8 L (3.4-5.0) g/dL Progress Note: A&P Assessment and Plan (1) Sepsis: (2) Cellulitis of left leg: (3) Hyponatremia: (4) Elevated d-dimer: (5) Diabetes: (6) High cholesterol: (7) Hypertension: Plan Fever, leukocytosis, thrombocytopenia, positive lactate secondary to cellulitis resulting in severe Sepsis: Secondary to cellulitis of left lower extremity complicated by diabetes. Cellulitis of left leg: Overall not deteriorated. Erythema still inside the line of demarcation somewhat less edema of his left lower extremity. Ultrasound of left lower extremity without DVT Hyponatremia: Stable Elevated d-dimer: Secondary to the inflammation as outlined above Diabetes: Elevated here likely complicated by the cellulitis. High cholesterol: Maintain current medications Hypertension: Maintain current medications Morbid obesity-diet management Moderate protein calorie malnutrition-diet supplement
[2023-01-27 11:24] LABS: Glucometer 202 mg/dL (74-106)
[2023-01-27] MEDS: VANCOMYCIN HCL 2,000 MG in 0.9 % SODIUM CHLORIDE 500 ML 250 MG IV (11:28)
[2023-01-27 16:26] LABS: Glucometer 170 mg/dL (74-106)
[2023-01-27 20:24] LABS: Vancomycin Trough 15.4 ug/mL (5.0-20.0)
--- NOTE | 2023-01-27 21:02 | PC.NURSE ---
vanco re-timed due to two IV antibiotics overlapping infusion time
[2023-01-27] MEDS: ATORVASTATIN CALCIUM 20 MG TABLET PO (21:21)
[2023-01-27] MEDS: MELOXICAM 7.5 MG TABLET 15 MG PO (21:21)
[2023-01-27] MEDS: L. ACIDOPHILUS/L.BULGARICUS 1 PACKET GRAN.PACK PO (21:21)
[2023-01-27] MEDS: INSULIN DETEMIR 300 UNIT/3 ML INSULN.PEN 20 UNIT SUBQ (21:25)
[2023-01-27 21:27] LABS: Glucometer 211 mg/dL (74-106)
[2023-01-28] VITALS: BP 122/73; PULSE 83; RESP 18; TEMP 37.6; O2SAT 94
[2023-01-28] MEDS: 0.9 % SODIUM CHLORIDE 1,000 ML 100 ML IV (01:24)
[2023-01-28 01:28] VITALS: TEMP 37.6
[2023-01-28] MEDS: VANCOMYCIN HCL 2,000 MG in 0.9 % SODIUM CHLORIDE 500 ML 250 MG IV ×2 (01:28→12:07)
[2023-01-28 04:00] VITALS: BP 123/67; PULSE 85; RESP 18; TEMP 37; O2SAT 93
[2023-01-28 05:05] LABS: Basophils Percent Auto 0.3 % (0.2-2.0); Eosinophils Absolute Auto 0.1 10^3/uL (0.0-0.7); Eosinophils Percent Auto 1.1 % (0.9-7.0); Hematocrit 32.7 % (42.0-54.0); Hemoglobin 10.6 g/dL (14.0-18.0); Immature Granulocytes Abs Auto 0.04 10^3/uL (0.00-0.03); Immature Granulocytes Pct Auto 0.5 % (0.0-0.5); Lymphocytes Percent Auto 13.4 % (20.5-60.0); Mean Corpuscular HGB Conc 32.4 g/dL (29.9-35.2); Mean Corpuscular Hemoglobin 30.6 pg (25.9-34.0); Mean Corpuscular Volume 94.5 fL (80.0-94.0); Mean Platelet Volume 10.8 fL (9.5-13.5); Monocytes Absolute Auto 0.5 10^3/uL (0.3-0.8); Monocytes Percent Auto 6.9 % (1.7-12.0); Neutrophils Absolute Auto 5.8 10^3/uL (1.4-6.5); Neutrophils Percent Auto 77.8 % (43.0-75.0); Platelet Count 148 10^3/uL (150-450); Red Blood Count 3.46 10^6/uL (4.70-6.10); Red Cell Distribution Width 14.7 % (11.0-15.0); White Blood Count 7.4 10^3/uL (4.0-11.0)
[2023-01-28] MEDS: PIPERACILLIN SODIUM/TAZOBACTAM 3.375 GM in 0.9 % SODIUM CHLORIDE 50 ML IV ×2 (05:07→14:14)
[2023-01-28 05:32] LABS: Alanine Aminotransferase 33 U/L (16-63); Albumin Globulin Ratio 0.7; Albumin Level 2.7 g/dL (3.4-5.0); Alkaline Phosphatase 54 U/L (46-116); Anion Gap 10.9; Aspartate Amino Transferase 35 U/L (15-37); BUN Creatinine Ratio 22.9; Bilirubin Total 0.7 mg/dL (0.2-1.0); Calcium 8.4 mg/dL (8.5-10.1); Carbon Dioxide 28.6 mmol/L (21.0-32.0); Chloride 101 mmol/L (98-107); Estimated GFR (African America >60 (>=60); Estimated GFR (Non-African Ame >60 (>=60); Globulin 4.1 g/dL; Glucose 179 mg/dL (74-106); Potassium 3.5 mmol/L (3.5-5.1); Sodium 137 mmol/L (136-145); Total Protein 6.8 g/dL (6.4-8.2)
[2023-01-28 07:26] VITALS: BP 127/72; PULSE 85; RESP 20; TEMP 36.6; O2SAT 94
[2023-01-28] MEDS: INSULIN ASPART 300 UNIT/3 ML PEN SUBQ (08:00)
--- NOTE | 2023-01-28 08:08 | CM.NOTE ---
Rounds made with Dr. Phelan. Dr. Phelan would like Mr. Bean to complete his IV antibiotics today and then may be discharged to home. Follow up with PCP next week or as scheduled.
--- NOTE | 2023-01-28 08:11 | P.DS_ITS ---
DS: Providers Provider Date of admission: 01/26/23 05:52 Primary care physician: MARIA L MITTAL DS: Diagnosis Discharge Diagnosis (1) Sepsis: (2) Cellulitis of left leg: (3) Hyponatremia: (4) Elevated d-dimer: (5) Diabetes: (6) High cholesterol: (7) Hypertension: Plan Fever, leukocytosis, thrombocytopenia, positive lactate secondary to cellulitis resulting in severe Sepsis: Secondary to cellulitis of left lower extremity complicated by diabetes. Cellulitis of left leg: Overall not deteriorated. Erythema still inside the line of demarcation somewhat less edema of his left lower extremity. Ultrasound of left lower extremity without DVT Hyponatremia: Stable Elevated d-dimer: Secondary to the inflammation as outlined above Diabetes: Elevated here likely complicated by the cellulitis. High cholesterol: Maintain current medications Hypertension: Maintain current medications Morbid obesity-diet management Moderate protein calorie malnutrition-diet supplement ? DS: Summary Hospital Course Hospital Course: Patient was admitted with a very aggressive cellulitis of his left lower extremity. Spread throughout most of his left lower leg over the course of less than a day. This is complicated and likely due to his diabetes. He was treated with IV vancomycin and Zosyn. Overall the swelling is improved today. Erythema is improving. Did not spread outside the line of demarcation. Patient feels like he is comfortable with going home with close follow-up with his PCP. Will discharge patient home in improving condition. Medications see list. Follow-up with his PCP next week. Other issues that may need to be followed up on his thrombocytopenia and mild anemia. Hyponatremia on admission is improved. Time Spent with Patient Time attestation: Total time spent providing and/or coordinating discharge services: Exam Constitutional Vital Signs, click to edit/add: Last Vital Signs Temp 98 F 01/28/23 07:26 Pulse 85 01/28/23 07:26 Resp 20 01/28/23 07:26 BP 127/72 01/28/23 07:26 Pulse Ox 94 L 01/28/23 07:26 O2 Del Method Room Air 01/28/23 07:26 Documenting provider has reviewed patient's vital signs: yes Common normals: no apparent distress HENMT Common normals: moist oral mucous membranes Chest Common normals: inspection of chest normal Respiratory Common normals: normal respiratory effort and no retractions Cardio Common normals: regular rate and regular rhythm GI Common normals: Normal to inspection, nondistended, normoactive bowel sounds present Extremity Common normals: abnormal to inspection Other: Erythema at the line of demarcation, less edema than previous day DS: Data Data Completed and Pending Labs on day of discharge: Labs from last 24 hours 01/28/23 01/27/23 01/27/23 04:05 21:23 19:53 WBC 7.4 RBC 3.46 L Hgb 10.6 L Hct 32.7 L MCV 94.5 H MCH 30.6 MCHC 32.4 RDW 14.7 Plt Count 148 L MPV 10.8 Neut % (Auto) 77.8 H Lymph % (Auto) 13.4 L Preston % (Auto) 6.9 Eos % (Auto) 1.1 Baso % (Auto) 0.3 Neut # (Auto) 5.8 Lymph # (Auto) 1.0 L Preston # (Auto) 0.5 Eos # (Auto) 0.1 Baso # (Auto) 0.0 Abs Immat Gran (auto) 0.04 H Imm/Tot Granulo (auto) 0.5 Sodium 137 Potassium 3.5 Chloride 101 Carbon Dioxide 28.6 Anion Gap 10.9 BUN 19.0 H Creatinine 0.83 Est GFR ( Amer) >60 Est GFR (Non-Af Amer) >60 BUN/Creatinine Ratio 22.9 Glucose 179 H Calcium 8.4 L Total Bilirubin 0.7 AST 35 ALT 33 Alkaline Phosphatase 54 Total Protein 6.8 Albumin 2.7 L Globulin 4.1 Albumin/Globulin Ratio 0.7 Vancomycin Trough 15.4 POC Glucose 211 H 01/27/23 01/27/23 16:21 11:24 WBC RBC Hgb Hct MCV MCH MCHC RDW Plt Count MPV Neut % (Auto) Lymph % (Auto) Preston % (Auto) Eos % (Auto) Baso % (Auto) Neut # (Auto) Lymph # (Auto) Preston # (Auto) Eos # (Auto) Baso # (Auto) Abs Immat Gran (auto) Imm/Tot Granulo (auto) Sodium Potassium Chloride Carbon Dioxide Anion Gap BUN Creatinine Est GFR ( Amer) Est GFR (Non-Af Amer) BUN/Creatinine Ratio Glucose Calcium Total Bilirubin AST ALT Alkaline Phosphatase Total Protein Albumin Globulin Albumin/Globulin Ratio Vancomycin Trough POC Glucose 170 H 202 H Discharge Plan Discharge Disposition: Home, Self-Care Discharge Medications: New doxycycline monohydrate 100 mg capsule 100 mg PO BID 14 Days Qty: 28 0RF cefdinir 300 mg capsule 600 mg PO DAILY 14 Days Qty: 28 0RF Continued amlodipine 5 mg tablet 5 mg PO QDAY glimepiride 4 mg tablet 4 mg PO BID Rx Instructions: per refill hx: last filled 01/04 #60/30 days. directions are 1BID with meals. attending [facility] PA[employer] Alysha notified of different instructions via [employer] (originally entered as QD) lisinopril 20 mg tablet 20 mg PO QDAY ergocalciferol (vitamin D2) 1,250 mcg (50,000 unit) capsule 1,250 mcg PO .COMPLEX Rx Instructions: 1,250 mcg orally once a week; meloxicam 15 mg tablet 15 mg PO .qhs metformin 1,000 mg tablet 1,000 mg PO BID metoprolol succinate 50 mg tablet extended release 24 hr 50 mg PO QDAY pioglitazone 45 mg tablet 45 mg PO QDAY simvastatin 40 mg tablet 40 mg PO BEDTIME lisinopril-hydrochlorothiazide 20-25 mg tablet 1 tab PO .AM tizanidine 4 mg capsule 4 mg PO Q8H PRN (Reason: Back Spasm) Rx Instructions: per refill hx: last filled 01/04/23 1QHS PRN #30/30 days - attending [facility] Alysha notified of different instructions via [employer] Patient Instructions: Doxycycline (By mouth), Cefdinir (By mouth), Cellulitis (GEN) Forms: Portal Instructions Referrals: MARIA L MITTAL [Primary Care Provider] - 1 week Follow Up Appointments: Patient is to call MEGGAN Lawler on Mon. Nov. 27 to schedule a hospital stay follow up appt. for 5-7 days following discharge. office #: [phone]
[2023-01-28] MEDS: ENOXAPARIN SODIUM 40 MG/0.4 ML SYRINGE SUBQ (08:18)
[2023-01-28] MEDS: PROSTAT 15 GM PROTEIN/100 CAL 30 ML LIQUID PACKET PO (08:18)
[2023-01-28] MEDS: L. ACIDOPHILUS/L.BULGARICUS 1 PACKET GRAN.PACK PO (08:18)
[2023-01-28] MEDS: JUVEN PACKET 1 PACKET PO (08:18)
[2023-01-28] MEDS: LISINOPRIL 20 MG TABLET PO (08:19)
[2023-01-28] MEDS: METOPROLOL SUCCINATE 50 MG TAB.ER.24H PO (08:19)
[2023-01-28] MEDS: AMLODIPINE BESYLATE 5 MG TABLET PO (08:19)
--- NOTE | 2023-01-31 11:36 | CM.DCFOLLOWU ---
Person spoke with: patient How are you feeling? still a little sore but the redness seems to be a little less How is your pain? just a little sore Did you understand your discharge instructions? yes Do you have any questions about your discharge instructions? no Were you given any prescriptions at discharge? yes antibiotics Were you able to get your prescriptions filled? yes Do you understand how to take your medications as ordered? yes and patient has no questions regarding medications at this time. Do you have any questions about your follow up appointment and do you plan to keep your follow up appointment? patient stated he has a follow up this tuesday in the operations processor hours. Is there anything else that you would like to discuss? no Questions/Comments/Concerns/Other: n/a
== END 2023-01-28 15:39 | disposition home or self-care (01) | DRG 872 ==
LOC: ER 02:47 → MS 03:48
PROVIDERS: Internal Medicine; Nurse Practitioner; Admitting Provider Family Medicine; Emergency Provider Internal Medicine; PCP Physician Assistant; Visit Provider Family Medicine
DX: A41.9 Sepsis, unspecified organism (principal); L03.116 Cellulitis of left lower limb; E87.1 Hypo-osmolality and hyponatremia; E44.0 Moderate protein-calorie malnutrition; Z68.42 Body mass index [BMI] 45.0-49.9, adult; E11.628 Type 2 diabetes mellitus with other skin complications; D69.6 Thrombocytopenia, unspecified; E66.01 Morbid (severe) obesity due to excess calories; E78.00 Pure hypercholesterolemia, unspecified; I10 Essential (primary) hypertension; R79.1 Abnormal coagulation profile; R65.20 Severe sepsis without septic shock; E11.65 Type 2 diabetes mellitus with hyperglycemia; Z90.89 Acquired absence of other organs; F17.220 Nicotine dependence, chewing tobacco, uncomplicated; Z79.899 Other long term (current) drug therapy; Z79.84 Long term (current) use of oral hypoglycemic drugs
CPT/HCPCS: 36415; 80048; 80053; 80202; 82948; 83036; 83605; 84484; 85025; 85378; 87040; 93005; 93971; 96365; 96366; 96367; 96368; 96372; 99285; G0328; J3370

== ENCOUNTER 2024-03-07 14:52 | Inpatient (IN) | payer OTHER, SELFPAY ==
[2024-03-07] VITALS (30 sets, daily range): BP systolic 158–200; BP diastolic 78–85; PULSE 109–119; TEMP 37–39.2; O2SAT 87–95; BMI 48.4; BMI 53.7
--- NOTE | 2024-03-07 15:51 | XR_ITS ---
[place] [id number] Patient Name: JUAN VILLAVICENCIO MRN: [id number] date: 1965 Sex: M Assigned Patient Location: ER Current Patient Location: ER Accession/Order Number: [id number] Exam Date: 03/07/2024 16:14 Report Date: 03/07/2024 17:16 At the request of: RAVINDRA SANCHEZ Procedure: XR chest 1V EXAMINATION: XR chest 1V, , 03/07/2024 4:14 PM EST INDICATION: Shortness of breath HISTORY: Ordering Provider Reason for Exam: Shortness of breath Technologist Note: Additional: COMPARISON: None. TECHNIQUE: Chest x-ray: One view. FINDINGS: No pneumothorax, pleural effusion or focal airspace consolidation. Heart is normal in size. Bony thorax is unremarkable. XR/XR chest 1V IMPRESSION: No acute cardiopulmonary process. Electronically authenticated by: RAMESH PENN Date: 03/07/2024 17:16
--- NOTE | 2024-03-07 15:51 | ECG_ITS ---
[facility] Test Date: 2024-03-07 Pat Name: JUAN VILLAVICENCIO Department: Room: - Gender: Male Mate Relief: : 1965 Requested By: [id number] Order Number: [id number] Reading MD: TRACEY HUDSON Measurements Intervals [place] Rate: 111 P: -71 ME: 120 QRS: -45 QRSD: 150 T: 8 QT: 360 QTc: 426 Interpretive Statements Sinus rhythm 2450 Right bundle branch block 7300 Indeterminate axis 9150 abnormal ECG Electronically Signed On 03-10-2024 8:10:35 EST by TRACEY HUDSON
--- NOTE | 2024-03-07 15:53 | ED.GENADUL1 ---
HPI HPI - General Adult General Chief complaint: Shortness of Breath/Dyspnea Stated complaint: DIZZINESS AND SHORTNESS OF BREATH Time Seen by Provider: 03/07/24 15:42 Source: patient Mode of arrival: Wheelchair Limitations: no limitations History of Present Illness HPI narrative: Patient is a 59-year-old male with a history of obesity, diabetes who presents to the emergency department for evaluation of not feeling well for the last several days. He reports body aches, shortness of breath and cough, diarrhea. He reports his grandchildren were also sick with upper respiratory symptoms. No medications taken prior to arrival. He states he feels dizzy and weak. He denies chest pain, vomiting. He has not had any significant sputum production or hemoptysis. Related Data Home Medications ?Medication ?Instructions ?Recorded ?Confirmed amlodipine 5 mg tablet 5 mg PO QDAY 11/15/22 03/07/24 ergocalciferol (vitamin D2) 1,250 1,250 mcg PO .COMPLEX 11/15/22 03/07/24 mcg (50,000 unit) capsule glimepiride 4 mg tablet 4 mg PO BID 11/15/22 03/07/24 lisinopril 20 mg tablet 20 mg PO QDAY 11/15/22 03/07/24 meloxicam 15 mg tablet 15 mg PO .qhs 11/15/22 03/07/24 metformin 1,000 mg tablet 1,000 mg PO BID 11/15/22 03/07/24 metoprolol succinate 50 mg 50 mg PO QDAY 11/15/22 03/07/24 tablet,extended release 24 hr pioglitazone 45 mg tablet 45 mg PO QDAY 11/15/22 03/07/24 lisinopril 20 1 tab PO .AM 01/26/23 03/07/24 mg-hydrochlorothiazide 25 mg tablet simvastatin 40 mg tablet 40 mg PO BEDTIME 01/26/23 03/07/24 tizanidine 4 mg capsule 4 mg PO Q8H PRN Back Spasm 01/26/23 03/07/24 Previous Rx's ?Medication ?Instructions ?Recorded cefdinir 300 mg capsule 600 mg (2 x 300 mg) PO DAILY 14 01/28/23 days #28 caps doxycycline monohydrate 100 mg 100 mg PO BID 14 days #28 caps 01/28/23 capsule Allergies Allergy/AdvReac Type Severity Reaction Status Date / Time No Known Drug Allergies Allergy Verified 03/07/24 15:38 Opioid HPI Opioid Management Most Recent Opioid Data: Last Pain Scale 0 01/26/23 22:21 01/26/23 Review of Systems ROS Constitutional Reports: fever and chills Ears, nose, mouth, and throat Denies: throat pain or nasal congestion Cardiovascular Denies: chest pain Respiratory Reports: shortness of breath and cough Gastrointestinal Reports: nausea and diarrhea; Denies: abdominal pain or vomiting Musculoskeletal Denies: back pain Integumentary/Breast Denies: rash Neurological Reports: dizziness; Denies: headache, numbness in extremities or weakness in extremities Hematologic/Lymphatic Denies: easy bruising or easy bleeding [facility] Medical History (Updated 03/07/24 @ 19:03 by MEGGAN Shipman) Hyponatremia ?E87.1 - Hypo-osmolality and hyponatremia (ICD-10) Sepsis ?A41.9 - Sepsis, unspecified organism (ICD-10) 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 - Other postprocedural complications and disorders of genitourinary system (ICD-10) ?N47.5 - Adhesions of prepuce and glans penis (ICD-10) Elevated d-dimer ?R79.89 - Other specified abnormal findings of blood chemistry (ICD-10) Hip pain, right ?M25.551 - Pain in right hip (ICD-10) Lower extremity edema ?R60.0 - Localized edema (ICD-10) Cellulitis of left leg ?L03.116 - Cellulitis of left lower limb (ICD-10) Diabetes ?E11.9 - Type 2 diabetes mellitus without complications (ICD-10) Hypertension ?I10 - Essential (primary) hypertension (ICD-10) High cholesterol ?E78.00 - Pure hypercholesterolemia, unspecified (ICD-10) Surgical History (Updated 01/26/23 @ 03:45 by Yuli Lo) Hx of tonsillectomy ?Z90.89 - Acquired absence of other organs (ICD-10) Family History (Updated 01/26/23 @ 03:47 by Yuli Lo) Sister Family history of cancer Mother Family history of diabetes mellitus Family history of hypertension Family history of myocardial infarction Father Family history of diabetes mellitus Grandfather Family history of stroke Social History Within the past year, how often did you have a drink containing alcohol: 2-3 times a week Within the past year, how many standard drinks containing alcohol did you have on a typical day: 3 or 4 Within the past year, how often did you have six or more drinks on one occasion: less than monthly Total score: 3 Score interpretation: A score of 4 or more indicates drinking is likely to affect patient's safety. 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 Highest level of school completed/degree received: 11th grade Do you want help with school or training: No Are you now , , , , never or living with a partner: In a typical week, how many times do you talk on the telephone with family, friends, or neighbors: 3 or more times per week How often do you get together with friends or relatives: twice per week How often do you attend protestant or anabaptism services: 1-3 times per year Do you belong to any clubs or organizations such as protestant groups unions, fraternal or athletic groups, or school groups: no Total score: 1 Score interpretation: A score of less than or equal to 1 indicates the most socially isolated. Little interest or pleasure in doing things: not at all Feeling down, depressed, or hopeless: not at all Feel stressed/tense/nervous/anxious/difficulty sleeping: not at all Due to disability, difficulty making decisions: No Do you think of yourself as: straight/heterosexual Gender Identity: male Exam Narrative Exam Narrative: Gen.: Awake, alert, in no distress, morbidly obese male Head: Normocephalic, atraumatic ENT: Moist mucous membranes Respiratory: No respiratory distress, lungs clear bilaterally Cardio: Regular rate and rhythm Gastrointestinal: Abdomen is soft, nondistended and nontender to palpation Extremities: Moves extremities equally Psych: Normal mood and affect Neuro: No focal neuro deficit Skin: Warm, dry, intact Constitutional Vital Signs, click to edit/add: Last Vital Signs Temp 102.5 F H 03/07/24 15:29 Pulse 118 H 03/07/24 16:40 Resp 23 H 03/07/24 16:40 BP 175/85 H 03/07/24 18:24 Pulse Ox 92 L 03/07/24 18:24 O2 Del Method Room Air 03/07/24 16:39 Course Vital Signs Vital signs: Vital Signs Temperature 102.5 F H 03/07/24 15:29 Pulse Rate 117 H 03/07/24 15:29 Respiratory Rate 20 03/07/24 15:29 Blood Pressure 200/80 H 03/07/24 15:29 Pulse Oximetry 92 L 03/07/24 15:29 Oxygen Delivery Method Room Air 03/07/24 15:29 Temperature 102.5 F H 03/07/24 15:29 Pulse Rate 118 H 03/07/24 16:40 Respiratory Rate 23 H 03/07/24 16:40 Blood Pressure 175/85 H 03/07/24 18:24 Pulse Oximetry 92 L 03/07/24 18:24 Oxygen Delivery Method Room Air 03/07/24 16:39 Medical Decision Making MDM Narrative Medical decision making narrative: A full septic workup was ordered for this patient including chest x-ray, blood cultures, urine specimen, blood work, respiratory swabs. Workup shows the patient has mild leukocytosis, bandemia, elevated lactic acid. He was treated with 2 L of IV fluids. Chest x-ray with no evidence of acute cardiopulmonary changes, however by my interpretation this is very limited by body habitus. He was treated with Tylenol for fever. CT of the chest was ordered to evaluate the lungs further. Almost 4 hours into the patient's evaluation, his daughter came to the desk to state that his left leg is warm and red. He has a history of cellulitis. The patient was aware of the redness and pain, however he did not mention it. Daughter states this is typical for him. Patient treated for cellulitis with Zosyn and vancomycin, he meets sepsis criteria so he is admitted for further evaluation and treatment. SUPERVISED APC VISIT, PHYSICIAN ATTESTATION: Based on the medical record the care appears appropriate. ? Medical Records Medical records reviewed: Yes I reviewed the patient's medical records Lab Data Lab results reviewed: Yes I reviewed the patient's lab results Labs: Lab Results 03/07/24 03/07/24 03/07/24 Range/Units 14:55 15:46 16:15 WBC 11.7 H (4.0-11.0) 10^3/uL RBC 4.23 L (4.70-6.10) 10^6/uL Hgb 13.2 L (14.0-18.0) g/dL Hct 39.8 L (42.0-54.0) % MCV 94.1 H (80.0-94.0) fL MCH 31.2 (25.9-34.0) pg MCHC 33.2 (29.9-35.2) g/dL RDW 13.5 (11.0-15.0) % Plt Count 170 (150-450) 10^3/uL MPV 10.2 (9.5-13.5) fL Seg Neuts % (Manual) 84.0 H (43.0-75.0) Band Neutrophils % 2.0 (0-5) % Lymphocytes % (Manual) 6.0 L (20.5-60.0) % Monocytes % (Manual) 6.0 (1.7-12.0) % Eosinophils % (Manual) 0.0 L (0.9-7.0) % Basophils % (Manual) 2.0 (0.2-2.0) % Neutrophils # (Manual) 9.82 H (1.4-6.5) 10^3/uL Band Neutrophils # 0.2 (0.0-0.3) 10^3/uL Lymphocytes # (Manual) 0.70 L (1.20-3.80) 10^3/uL Monocytes # (Manual) 0.70 (0.30-0.80) 10^3/uL Eosinophils # (Manual) 0.00 (0.00-0.70) 10^3/uL Basophils # (Manual) 0.23 H (0.00-0.10) 10^3/uL PT 11.2 (9.0-11.6) sec INR 1.06 VBG pH 7.419 (7.330-7.430) VBG pCO2 52.2 H (40.0-52.0) mmHg Sodium (136-145) mmol/L Potassium (3.5-5.1) mmol/L Chloride (98-107) mmol/L Carbon Dioxide (21.0-32.0) mmol/L Anion Gap BUN (7.0-18.0) mg/dL Creatinine (0.70-1.30) mg/dL Est GFR ( Amer) (>=60 mL/min/1.73m^2) Est GFR (Non-Af Amer) (>=60 mL/min/1.73m^2) BUN/Creatinine Ratio Glucose (74-106) mg/dL Lactate 2.8 H* (0.4-2.0) mmol/L Calcium (8.5-10.1) mg/dL Total Bilirubin (0.2-1.0) mg/dL AST (15-37) U/L ALT (16-63) U/L Alkaline Phosphatase (46-116) U/L Troponin I High Sens (4.0-76.1) pg/mL NT-Pro-B Natriuret Pep (<=900.0) pg/mL Total Protein (6.4-8.2) g/dL Albumin (3.4-5.0) g/dL Globulin g/dL Albumin/Globulin Ratio Influenza Type A Ag Negative Influenza Type B Ag Negative RSV Antigen Not detected (NOT DETECTE) SARS-CoV-2 Ag (CV2AG) Negative (NEGATIVE) 03/07/24 Range/Units 16:42 WBC (4.0-11.0) 10^3/uL RBC (4.70-6.10) 10^6/uL Hgb (14.0-18.0) g/dL Hct (42.0-54.0) % MCV (80.0-94.0) fL MCH (25.9-34.0) pg MCHC (29.9-35.2) g/dL RDW (11.0-15.0) % Plt Count (150-450) 10^3/uL MPV (9.5-13.5) fL Seg Neuts % (Manual) (43.0-75.0) Band Neutrophils % (0-5) % Lymphocytes % (Manual) (20.5-60.0) % Monocytes % (Manual) (1.7-12.0) % Eosinophils % (Manual) (0.9-7.0) % Basophils % (Manual) (0.2-2.0) % Neutrophils # (Manual) (1.4-6.5) 10^3/uL Band Neutrophils # (0.0-0.3) 10^3/uL Lymphocytes # (Manual) (1.20-3.80) 10^3/uL Monocytes # (Manual) (0.30-0.80) 10^3/uL Eosinophils # (Manual) (0.00-0.70) 10^3/uL Basophils # (Manual) (0.00-0.10) 10^3/uL PT (9.0-11.6) sec INR VBG pH (7.330-7.430) VBG pCO2 (40.0-52.0) mmHg Sodium 139 (136-145) mmol/L Potassium 4.0 (3.5-5.1) mmol/L Chloride 97 L (98-107) mmol/L Carbon Dioxide 34.3 H (21.0-32.0) mmol/L Anion Gap 11.7 BUN 15.0 (7.0-18.0) mg/dL Creatinine 1.06 (0.70-1.30) mg/dL Est GFR ( Amer) >60 (>=60 mL/min/1.73m^2) Est GFR (Non-Af Amer) >60 (>=60 mL/min/1.73m^2) BUN/Creatinine Ratio 14.2 Glucose 240 H (74-106) mg/dL Lactate (0.4-2.0) mmol/L Calcium 9.6 (8.5-10.1) mg/dL Total Bilirubin 1.0 (0.2-1.0) mg/dL AST 28 (15-37) U/L ALT 40 (16-63) U/L Alkaline Phosphatase 92 (46-116) U/L Troponin I High Sens 17.3 (4.0-76.1) pg/mL NT-Pro-B Natriuret Pep 58.0 (<=900.0) pg/mL Total Protein 7.5 (6.4-8.2) g/dL Albumin 3.5 (3.4-5.0) g/dL Globulin 4.0 g/dL Albumin/Globulin Ratio 0.9 Influenza Type A Ag Influenza Type B Ag RSV Antigen (NOT DETECTE) SARS-CoV-2 Ag (CV2AG) (NEGATIVE) Imaging Data Chest x-ray: Attestation: I have reviewed the pertinent imaging results. Radiologist's impression: ITS Impressions Chest X-Ray 03/07/24 15:51 IMPRESSION: No acute cardiopulmonary process. Electronically authenticated by: RAMESH PENN Date: 03/07/2024 17:16 ECG Data Attestation: I personally reviewed and interpreted this ECG as follows: (Sinus tachycardia at a rate of 111, right bundle branch block, no acute ST elevation or ectopy. No significant change from EKG 01/26/2023. EKG reviewed by attending physician) Discharge Plan Discharge Chief Complaint: Shortness of Breath/Dyspnea Clinical Impression: Cellulitis of left leg, Sepsis, Fever Patient Disposition: Admitted As Inpatient Time of Disposition Decision: 19:02 Condition: Good
--- OUTSIDE RECORDS SUMMARY | 2024-03-07 16:14 | XMS_ITS | CCD ---
Author Organization [facility] Care Team Providers Care Field Marketing Director Name Role Phone MANISH RODRIGUEZ Primary Care Physician MD Timmy Santana Attending Provider MIKEY Verdin Primary Care Provider [phone] Divya Verdin Unavailable Unavailable Unavailable Unavailable Ritesh Ordonez Attending Unavailable Lambert, Mrs. Stokes Dnoa Primary Care Unav ailable Dr. Timmy Santana Referring Unavailab Daniel Huerta MD Primary Care Provider DO Silvio Yu II Attending Provider MD Timmy Santana Referring Provider [phone] DIVYA VERDIN Primary Care Physician [phone] Divya Verdin Primary Care Provider DANIEL LEONARD Primary Care Unavailable VÍCTOR ROSALES Attending UnavailDANIEL Echavarria Primary Care Unavailable VÍCTOR ROSALES Attending UnavailVÍCTOR Quiñones Admitting UnavailDIVYA Mascorro Primary Care Unavailable Timmy SANTANA Attending Unavailable Timmy SANTANA Attending Unavailable DIVYA VERDIN Referring Unavailable Timmy SANTANA Attending Unavailable Timmy SANTANA Attending Unavailable DIVYA VERDIN Primary Care Unavailable Timmy SANTANA Attending Unavailable DIVYA VERDIN Primary Care Unavailable MIKEY Verdin Primary Care Provider Amadeo, SPA RECEPTIONIST-BC Roya E Emergency Provider [phone] Osiel Lewis Unavailable Divya Thornton Unavailable [phone] Manish Rodriguez MD Primary Care Provider Roya Childs Admitting Unavailable Roya Childs Attending Unavailable Divya Verdin Primary Care Unavailable Divya Verdin Primary Care Unavailable Osiel Lewis Admitting Unavailable Osiel Lewis Attending Unavailable Manish Rodriguze MD Unavailable DIVYA VERDIN Attending Unavailable DIVYA VERDIN Attending Unavailable DIVYA VERDIN Attending Unavailable DIVYA VERDIN Attending Unavailable DIVYA VERDIN Attending Unavailable Allergies Allergy Classification Reported Allergen(s) Allergy Type Date of Onset Reaction(s) Facility (1 source) No Known Medication Allergies; Translations: [No Known Medication Allergies] Propensity to adverse reactions (disorder) [facility] Repository Medications Current Medications Medication Drug Class(es) Dates Sig (Normalized) Sig (Original) acetaminophen 325 mg / HYDROcodone bitartrate 5 mg oral tablet (8 sources) Opioid Agonist Start: 12-01-2022 take 1 tablet by mouth every six hours Hydrocodone-Aceta minophen Active 1 TAB PO Q6H 10 3 December 01, 2022 Start: 05-31-2022 End: 06-22-2022 take 1 tablet by mouth every four to six hours Hydrocodone-Acetaminophen Discontinued 1 TAB PO EVERY 4-6 HOURS 10 3 May 31, 2022 June 22, 2022 8:06am Start: 05-31-2022 take 1 tablet by vickey th once HYDROcodone-acetaminophen (NORCO) 5-325 mg per tablet Take 1 tablet by mouth. 0 05/31/2022 Active Comment on above: Take 1 tablet by vickey th. 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) TAKE 1 TABLET BY MOUTH DAILY 100 tablet 3 10/19/2023 Active Start: 05-17-2022 take 5 mg by mouth o nce daily in the morning Amlodipine Active 5 MG PO Every morning May 17, 2022 12:00am BD Luer-Shruthi Syringe 22G X 1 (2 sources) BD Luer-Shruthi Syri nge 22G X 1 use every 2 (TWO) weeks with testosterone injection intramuscular once every 2 weeks for 90 days Active BD Luer-Shruthi Syringe 22G X 1 3 ML (2 sources) BD Luer-Shruthi Syri nge 22G X 1 3 ML USE DIRECTED WITH testosterone EVERY 2 WEEKS Active Blood Glucose Monitoring Sup pl (D-Care Glucometer) w/Device kit (10 sources) Start: 08-24-2023 Blood Glucose Monitoring Suppl (D-Care Glucometer) w/Device kit Indications: Type 2 diabetes mellitus with other specified complication (CMS/FORMER[facility]) 1 each Daily Test glucose once a day. 08/24/2023 Active Start: 02-02-2023 Blood Glucose Monitoring Suppl (D-Care Glucometer) w/Device kit Indications: Type 2 diabetes mellitus without complication, without long-term current use of insulin ([facility]) 1 each in the morning. Test glucose once a day.. 1 kit 0 02/02/2023 Active cefdinir 300 mg oral capsule (1 source) Cephalosporin Antibacterial Cefdinir 300 MG as directed Orally Active cephalexin 500 mg oral capsule (3 sources) Cephalosporin Antibacterial Start: 3 End: 3 take 1 capsule by mouth twice daily cephALEXin (KEFLEX) 500 mg capsule Take 1 capsule by mouth twice daily for 7 days. 14 capsule 0 08/13/2022 08/20/2022 Active Start: 05-31-2022 take 1 capsule by mo ut twice daily cephALEXin (KEFLEX) 500 mg capsule Take 500 mg by mouth twice daily. 0 05/31/2022 Active Comment on above: Take 500 mg by mouth twice daily. Take 1 capsule by mo uth twice daily for 7 days. docosahexaenoic acid 120 mg / eicosapentaenoic acid 180 mg oral capsule (14 sources) take 1 capsule by mouth once daily omega-3 (Fish Oil) 1000 MG capsule Take 1 capsule by mouth 1 (one) time each day at the same time. Active Docosahexanoic A rebecca-Eicosapent 120-180 mg capsule Take by mouth q 24 HR. 0 Active Comment on above: Take by mouth q 24 H R. doxycycline monohydrate 100 mg oral capsule (1 source) Tetracycline-class Drug take 1 capsule by mouth every twenty-four hours Doxycycline Monohydrate 100 MG 1 capsule Orally Once a day Active ergocalciferol 1.25 mg oral capsule (20 sources) Provitamin D2 Compound Start: 09-06-19 take 1 capsule by mouth every week ergocalciferol (Vitamin D2) 1.25 MG (87834 UT) capsule Indications: Vitamin D deficiency TAKE 1 CAPSULE BY MOUTH once a week 12 capsule 3 09/06/2023 Active Start: 08-12-2022 take 1 capsule by mo [facility] every week ergocalciferol (Vitamin D2) 1.25 MG (68825 UT) capsule Indications: Vitamin D deficiency Take 1 capsule (1.25 mg) by mouth 1 (one) time per week. 12 capsule 3 08/12/2022 Active Start: 05-10-2022 take 1250 [IU] by mo ut every week Ergocalciferol (Vitamin D2) Active 1250 UNIT PO every week May 17, 2022 12:00am Start: 05-10-2022 ergocalciferol 50,000 intl units Cap Refills(s) 0 Start Date: 05/10/22 Status: Ordered Comment on above: Ergocalciferol (Marjan min D2) Active 1250 UNIT PO every week May 17, 2022 12:00am glimepiride 4 mg oral tablet (20 sources) Sulfonylurea Start: 08-24-19 take 1 tablet by mouth in the morning glimepiride (Amaryl) 4 MG tablet Indications: Type 2 diabetes mellitus with other specified complication (CMS/HCC) Take 1 tablet (4 mg) by mouth in the morning. 08/24/2023 Active Start: 05-10-2022 take 4 mg by mouth twice daily Glimepiride Active 4 MG PO Twice daily May 17, 2022 12:00am take 1 tablet by vickey th once daily Glimepiride 4 MG Oral Tablet TAKE 1 TABLET DAILY DIRECTED. 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 In addition to lisinopril 20 mg QPM. 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) TAKE 1 TABLET BY MOUTH ONCE DAILY 100 tablet 3 07/05/2023 Active Comment on above: Lisinopril Active 20 MG PO Every evening May 17, 2022 12:00am meloxicam 15 mg oral tablet (18 sources) Nonsteroidal Anti-inflammatory Drug Start: 05-18-19 take 1 tablet by mouth once daily at mealtime meloxicam (Mobic) 15 MG tablet Indications: Lumbar pain TAKE 1 TABLET BY MOUTH ONCE DAILY WITH FOOD 100 tablet 3 06/06/2023 Active metFORMIN hydrochloride 1000 mg oral tablet (20 sources) Biguanide Start: 08-24-19 take 1 tablet by mouth in the morning metFORMIN (Glucophage) 1000 MG tablet Indications: Type 2 diabetes mellitus with other specified complication (CMS/HCC) Take 1 tablet (1,000 mg) by mouth in the morning and 1 tablet (1,000 mg) in the evening. Take with meals. 08/24/2023 Active Start: 10-14-2015 take 1000 mg by mout h twice daily Metformin Active 1000 MG PO Twice daily May 17, 2022 12:00am take 1 tablet by vickey th twice daily metFORMIN HCl ER (MOD) 1000 MG Oral Tablet Extended Release 24 Hour Take 1 tablet twice daily Quantity: 0 Refills: 0 Ordered: 20-May-2022 DO Active 24 hr metoprolol succinate 50 mg extended release oral tablet (20 sources) beta-Adrenergic Isiah Start: 07-07-2022 metopr olol succinate ER (TOPROL XL) 50 mg 24 hr tablet Start: 05-17-2022 take 1 tablet by vickey th once daily metoprolol succinate XL (Toprol-XL) 50 MG 24 hr tablet 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) TAKE 1 TABLET BY MOUTH DAILY 100 tablet 3 01/20/2023 Active Start: 05-10-2022 metoprolol suc cinate ER 50 mg tablet,extended release 24 hr metoprolol succinate ER 50 mg tablet,extended release 24 hr Start Date: 05/10/22 Status: Ordered OneTouch Verio - (2 sources) OneTouch Verio - use to test blood sugar twice daily Active phentermine hydrochloride 37.5 mg oral tablet (13 sources) Sympathomimetic Amine Anorectic Start: 09-12-19 End: 12-28-19 take 1 tablet by mouth before mealtime phentermine (Adipex-P) 37.5 MG tablet Indications: Morbid obesity (CMS/HCC) Take 1 tablet (37.5 mg) by mouth in the morning. Take before meals. 30 tablet 11/21/2023 Active Start: 04-06-2023 End: 05-06-2023 take 1 tablet by mouth before mealtime phentermine (Adipex-P) 37.5 MG tablet Indications: Morbid obesity (CMS/HCC) Take 1 tablet (37.5 mg) by mouth in the morning. Take before meals. 30 tablet 0 04/06/2023 05/06/2023 Active pioglitazone 45 mg oral tablet (20 sources) Peroxisome Proliferator Receptor alpha Agonist, Peroxisome Proliferator Receptor gamma Agonist, Thiazolidinedione Start: 08-24-2023 take 1 tablet by mouth once daily pioglitazone (Actos) 45 MG tablet Indications: Type 2 diabetes mellitus with other specified complication (CMS/HCC) Take 1 tablet (45 mg) by mouth Daily 08/24/2023 Active Start: 12-10-2014 take 45 mg by mouth once daily in the morning Pioglitazone Active 45 MG PO Every morning May 17, 2022 12:00am predniSONE 20 mg oral tablet (2 sources) Start: 12-01-2022 take 20 mg by mouth twice daily Prednisone Active 20 MG PO Twice daily 12 09December 01, 2022 12:00am simvastatin 40 mg oral tablet (20 sources) HMG-CoA Reductase Inhibitor Start: 05-17-2022 take 1 tablet by mouth once daily in the evening simvastatin (Zocor) 40 MG tablet Indications: Pure hypercholesterolem ia, unspecified (CMS/HCC) TAKE 1 TABLET BY MOUTH EVERY EVENING 100 tablet 3 01/20/2023 Active Comment on above: Simvastatin Active 4 0 MG PO Every evening May 17, 2022 12:00am Syringe 23G X 1 3 ML misc (10 sources) Start: 02-09-2023 Syringe 23G X 1 3 ML misc Indications: Testicular dysfunction Inject 1 each into the shoulder, thigh, or buttocks every 14 (fourteen) days 6 each 1 02/09/2023 Active testosterone cypionate 100 mg/ml injectable solution (14 sources) Androgen Start: 02-09-2023 testosterone cypionate (Depo-Testosterone ) 100 MG/ML injection Indications: Testicular dysfunction Inject 1 mL (100 mg) into the shoulder, thigh, or buttocks every 14 (fourteen) days 2 mL 2 02/09/2023 Active inject 100 mg by int ramuscular injection every other week Depo-Testosterone 200 MG/ML 100 mg (0.5 ml) Intramuscular Q 2 weeks Not-Taking Testosterone Cyp ionate 200 MG/ML 100 mg (0.50ml) of 200mg/ml vial intramuscularly every 2 weeks for 90 days Not-Taking tiZANidine 4 mg oral capsule (18 sources) Central alpha-2 Adrenergic Agonist Start: 05-17-2022 take 1 capsule by mouth at bedtime as needed tiZANidine (Zanaflex) 4 MG capsule Indications: Muscle spasm of back TAKE 1 CAPSULE BY MOUTH AT BEDTIME NEEDED 30 capsule 5 07/05/2023 Active Comment on above: Tizanidine (Zanaflex ) 4 mg capsule Active 4 MG PO Every evening May 17, 2022 12:00am Completed/Discontinued Medications Medication Drug Class(es) Dates Sig (Normalized) Sig (Original) acetaminophen 500 mg oral tablet (1 source) Start: 08-13-2022 take 2 tablets by mouth every six hours as needed acetaminophen (TYLENOL EXTRA STRENGTH) 500 mg tablet Take 2 tablets by mouth every 6 hours as needed for pain. 60 tablet 0 08/13/2022 Active Comment on above: Take 2 tablets by mo uth every 6 hours as needed for pain. cholecalciferol 1.25 mg oral capsule (3 sources) Vitamin D cholecalciferol, Vitamin D3, (VITAMIN D3) 1,250 mcg (50,000 unit) cap capsule Take by mouth. 0 Active take 1 tablet by mouth every wee k Vitamin D3 1.25 MG (42141 UT) Oral Capsule one tablet weekly Quantity: 30 Refills: 5 Ordered: 20-May-2022 DO Active Comment on above: Take by mouth. dicyclomine hydrochloride 20 mg oral tablet (3 sources) Anticholinergic Start: 03-09-19 20 dicyclomine (BENTYL) 20 mg tablet Take 20 mg by mouth. 0 03/09/2019 Active Comment on above: Take 20 mg by mouth. docusate sodium 100 mg oral capsule (1 source) Start: 08-14-19 23 take 1 capsule by mouth twice daily docusate sodium (COLACE) 100 mg capsule Take 1 capsule by mouth twice daily. 14 capsule 0 08/13/2022 Active Comment on above: Take 1 capsule by [facility] twice daily. Ketorolac (4 sources) Nonsteroidal Anti-inflammatory Drug, Cyclooxygenase Inhibitor Start: 04-15-19 Toradol per 15 mg Apr, 30 mg Start: 10-30-2015 Toradol per 15 mg Oct, 30 mg latanoprost 0.05 mg/ml ophthalmic solution (4 sources) Prostaglandin Analog latanoprost (XALATAN) 0.005 % ophthalmic solution Use in eyes q 24 HR. 0 Active take 1 drop(s) into the eye(s) once daily Latanoprost 0.005 % Ophthalmic Solution INSTILL 1 DROP INTO AFFECTED EYE(S) ONCE DAILY DIRECTED. Quantity: 0 Refills: 0 Ordered: 20-May-2022 DO Active Comment on above: Use in eyes q 24 HR. methylPREDNISolone (2 sources) Corticosteroid Start: 2015 Depo-Medrol 40 mg Oct, 20 mg naproxen sodium 550 mg oral tablet (2 sources) Nonsteroidal Anti-inflammatory Drug take 1 tablet by mouth every twelve hours Anaprox DS 550 MG 1 tablet Orally Twice a day for 10 days Not-Taking Syringe (Disposable) 1 ML (2 sources) Start: 2013 Syringe (Disposable) 1 ML 22 guage 1 intramuscularly Q 2 weeks for 90 days Nov, Not-Taking Syringe (Disposable) 3 ML (2 sources) Start: 2013 Syringe (Disposable) 3 ML as directed IM q 2 weeks for 90 days Jun, Not-Taking Triamcinolone (2 sources) Corticosteroid Start: 2019 KENALOG - 10 mg Apr, 20 mg Problems Active Problems Problem Classification Problem Date Documented Date Episodic/Chronic Cancer of other male genital organs (20 sources) Malignant tumor of penis; Translations: [Malignant neoplasm of penis, unspecified] Onset: 07-12-2022 Chronic Conduction disorders (11 sources) EKG: right bundle branch block; Translations: [Right bundle branch block] Onset: 08-12-2022 08-12-2022 Chronic Diabetes mellitus with complications (20 sources) Disorder due to type 2 diabetes mellitus; Translations: [Type 2 diabetes mellitus with unspecified complications] Onset: 08-24-2023 08-24-2023 Chronic Disorders of lipid metabolism (20 sources) Hyperlipidemia; Translations: [Other and unspecified hyperlipidemia] Onset: 08-12-2022 Resolved: 02-02-2023 05-06-2022 Chronic Essential hypertension (19 sources) Hypertensive disorder; Translations: [Unspecified essential hypertension] Onset: 10-13-2022 05-06-2022 Chronic Gout and other crystal arthropathies (10 sources) Gout; Translations: [Gout, unspecified] Onset: 08-12-2022 08-12-2022 Chronic Hypertension with complications and secondary hypertension (10 sources) Hypertension secondary to endocrine disorder; Translations: [Hypertension secondary to endocrine disorders] Onset: 08-12-2022 08-12-2022 Chronic Inflammatory conditions of male genital organs (13 sources) Balanoposthitis; 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] Onset: 05-10-2022 Chronic Nutritional deficiencies (12 sources) Vitamin D deficiency; Translations: [Vitamin D deficiency, unspecified] Onset: 08-12-2022 08-12-2022 Chronic Other acquired deformities (10 sources) Scoliosis of lumbar spine; Translations: [Other forms of scoliosis, lumbar region] Onset: 08-12-2022 08-12-2022 Chronic Other aftercare (2 sources) Long-term current use of insulin; Translations: [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] Episodic Other endocrine disorders (1 source) Testicular hypofunction; Translations: [Testicular hypofunction] Onset: 05-10-2022 Chronic Other endocrine disorders (1 source) Male hypogonadism 06-21-2022 Chronic Other endocrine disorders (2 sources) Hypogonadotropic hypogonadism; Translations: [Hypopituitarism] Chronic Other endocrine disorders (10 sources) Disorder of endocrine testis; Translations: [Testicular dysfunction, unspecified] Onset: 08-12-2022 08-12-2022 Chronic Other male genital disorders (7 sources) Male erectile dysfunction, unspecified; Translations: [Impotence of organic origin] Onset: 08-24-2023 08-24-2023 Chronic Other nervous system disorders (2 sources) Chronic pain; Translations: [Other chronic pain] Chronic Other nervous system disorders (2 sources) Other chronic pain Chronic Other non-traumatic joint disorders (2 sources) Hip pain; Translations: [Pain in right hip] 12-01-2022 Episodic Other nutritional; endocrine; and metabolic disorders (2 sources) Obesity 05-06-2022 Chronic Other nutritional; endocrine; and metabolic disorders (7 sources) Body mass index 40+ - severely obese; Translations: [Morbid obesity] Onset: 07-12-2022 Chronic Other nutritional; endocrine; and metabolic disorders (1 source) Morbid (severe) obesity due to excess calories; Translations: [Morbid obesity with BMI of 45.0-49.9, adult ([facility])] Onset: 07-12-2022 Chronic Other nutritional; endocrine; and metabolic disorders (1 source) Body mass index (BMI) 45.0-49.9, adult; Translations: [Morbid obesity with BMI of 45.0-49.9, adult ([facility])] Onset: 07-12-2022 Chronic Other nutritional; endocrine; and metabolic disorders (20 sources) Morbid obesity; Translations: [Morbid (severe) obesity due to excess calories] Onset: 08-12-2022 08-12-2022 Chronic Other screening for suspected conditions (not mental disorders or infectious disease) (1 source) Patient encounter status; Translations: [Encounter for screening for other disorder] Episodic Screening and history of mental health and substance abuse codes (1 source) Ex-smoker; Translations: [Personal history of tobacco use] Episodic Comment on above: quit 29+ years ago; Spondylosis; intervertebral disc disorders; other back problems (20 sources) Solitary sacroiliitis; Translations: [Sacroiliitis, not elsewhere classified] Onset: 08-12-2022 Chronic Unclassified (1 source) Pain in right hip; Translations: [Pain in right hip] Onset: 12-01-2022 Past or Other Problems Problem Classification Problem Date Documented Date Episodic/Chronic Biliary tract disease (12 sources) Biliary calculus; Translations: [Calculus of gallbladder without cholecystitis without obstruction] Onset: 10-13-2022 05-06-2022 Episodic Diabetes mellitus without complication (20 sources) Diabetes mellitus; Translations: [Diabetes mellitus without mention of complication, type II or unspecified type, not stated as uncontrolled] Onset: 08-12-2022 Resolved: 08-24-2023 05-06-2022 Chronic Genitourinary congenital anomalies (15 sources) Congenital buried penis; 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] Onset: 07-12-2022 Resolved: 10-13-2022 Chronic Infective arthritis and osteomyelitis (except that caused by tuberculosis or sexually transmitted disease) (10 sources) Bacterial arthritis of sacroiliac joint; Translations: [Arthritis due to other bacteria, vertebrae] Onset: 12-03-2022 12-03-2022 Episodic Other male genital disorders (16 sources) Phimosis; Translations: [Phimosis] Onset: 05-10-2022 Episodic Other non-traumatic joint disorders (9 sources) Pain in right hip joint; Translations: [Pain in right hip] Onset: 04-20-2023 04-20-2023 Episodic Spondylosis; intervertebral disc disorders; other back problems (20 sources) Radiculopathy, lumbar region; Translations: [Low back pain] Onset: 08-12-2022 Episodic Results Test Name Value Interpretation Reference Range Facility Laboratory - Hematology and Cell countson 12-28-2023 HbA1c (Bld) [Mass fraction] 7.3 % [facility] No Panel Informationon 12-27 Interpretation and review of laboratory results Abnormal [facility] XR pre/post mri xrayon 01-28 XR pre/post mri xray [facility] [place] [address] MRI Report Signed Patient: Juan Bean JR MR#: [id number] : 1965 Acct:[id number] Age/Sex: 58 / M ADM Date: 01/28/23 Loc: MR Room: Type: [facility] Attending Dr: Osiel Lewis MD Copies to: Osiel Lewis MD Ordering Provider: Osiel Lewis MD Date of Service: 01/28/23 MR/MR lumbar spine wo con: M54.16 ([id number]) XR/XR pre/post mri xray: PRE MRI LUMBAR MR lumbar spine wo con, XR pre/post mri xray 01/28/2023 7:30 PM SIGNS AND SYMPTOMS: Low back and right leg pain PROTOCOL: Frontal and lateral radiographs of the lumbar spine. Multiplanar multisequence MR images of the lumbar spine were obtained without IV contrast. COMPARISON: None. FINDINGS: Radiograph the lumbar spine: There is a levoconvex curvature of the lumbar spine. There is moderate disc height loss throughout the lumbar spine. Vertebral body heights are preserved. There is no fracture or subluxation. Degenerative changes are noted in the hips and sacroiliac joints. Stones are noted in the gallbladder lumen. Anterior and lateral osteophyte formation is noted throughout, greatest between the L2-L3 and L3-L4 levels. MRI lumbar spine: Disc height loss and alignment is as noted above. This preservation vertebral body heights. There is Schmorl's information the superior endplate at L2 and superior endplate of L4. There are benign- appearing hemangiomas at L2 and L5. There is Modic type II fatty endplate degenerative change at L5- S1. This is present to a lesser extent at T12-L1. The marrow signal is within normal limits. The conus terminates at the superior endplate of the L1 vertebral body level. No epidural or paraspinous fluid collection is appreciated. There is a simple cyst in the left renal cortex requiring no further follow-up. At T12-L1: There is a circumferential disc bulge with a central disc extrusion and cranial migration. There is mild to moderate spinal canal stenosis with moderate left and mild right neural foraminal narrowing. At L1-L2: There is a circumferential disc bulge with facet hypertrophy and endplate osteophyte formation contributing to moderate spinal canal stenosis with mild left and moderate right neural foraminal narrowing. At L2-L3: There is a circumferential disc bulge with anterior and lateral osteophyte formation. There is subtle periventricular left. There is moderate narrowing of spinal canal with mild left and moderate severe right neural foraminal narrowing. At L3-L4: There is a circumferential disc bulge with anterior and lateral aspect formation in the right. There is facet hypertrophy right greater than left. There is moderate to severe spinal canal stenosis with severe right and mild left neural foraminal narrowing. There is mass effect on the exiting right L3 nerve roots. At L4-L5: There is a circumferential disc bulge with facet hypertrophy and ligamentum flavum thickening. There is moderate to severe stenosis of the spinal canal. There is severe bilateral neural foraminal narrowing with mass effect on the exiting L4 nerve roots bilaterally. At L5-S1: There is a circumferential disc bulge with endplate osteophyte formation and facet hypertrophy left greater than right. There is mild spinal canal narrowing with severe left and mild to moderate right neural foraminal narrowing. There is mass effect on the exiting left L5 nerve roots. MR/MR lumbar spine wo con IMPRESSION: There is a levoconvex curvature of the lumbar spine. At L3-L4: There is a circumferential disc bulge with anterior and lateral aspect formation in the right. There is facet hypertrophy right greater than left. There is moderate to severe spinal canal stenosis with severe right and mild left neural foraminal narrowing. There is mass effect on the exiting right L3 nerve roots. At L4-L5: There is a circumferential disc bulge with facet hypertrophy and ligamentum flavum thickening. There is moderate to severe stenosis of the spinal canal. There is severe bilateral neural foraminal narrowing with mass effect on the exiting L4 nerve roots bilaterally. At L5-S1: There is a circumferential disc bulge with endplate osteophyte formation and facet hypertrophy left greater than right. There is mild spinal canal narrowing with severe left and mild to moderate right neural foraminal narrowing. There is mass effect on the exiting left L5 nerve roots. Significant but lesser degrees of degenerative changes are noted above these levels. Gallstones are noted in the right upper quadrant. Impression dictated by: Tyrese Coon M.D.01/28/2023 9:08 PM Dictation Location: [place] [address] Transcribed By: [facility] 01/28/232107 Dictated By: Tyrese Coon II, MD 01/28/232056 Signed By: 01/28/232107 [place] [facility] CT hip RT wo [facility] 3 CT hip RT wo [facility] [place] [address] CT Scan Report Signed Patient: Juan Bean JR MR#: [id number] : 1965 Acct:[id number] Age/Sex: 57 / M ADM Date: 12/01/22 Loc: ER Room: Type: [facility] ER Attending Dr: Copies to: POLO Andrade Ordering Provider: POLO Andrade Date of Service: 12/01/22 CT/CT hip RT wo con: severe pain numbness R hip groin CT hip RT wo con 12/01/2022 9:42 AM SIGNS AND SYMPTOMS: severe pain numbness R hip groin TECHNIQUE: Multidetector CT axial slices of the right hip without IV contrast. Multiplanar and 3-D reformats were performed and viewed on a separate workstation and reviewed to further define anatomy and possible pathology. CT was performed with one or more of the following dose reduction techniques: Automated exposure control, adjustment of the mA and/or kV according to patient size, or use of iterative reconstruction technique. COMPARISON: 06/30/2022 FINDINGS: Degenerative changes are redemonstrated in the sacroiliac joints bilaterally. The sacrum and iliac bones are intact. The right hip shows mild narrowing of the joint space. There is no fracture or dislocation. Bony ring of the pelvis is intact. The visualized pelvic viscera are within normal limits. CT/CT hip RT wo con IMPRESSION: No fracture or dislocation. Degenerative changes are noted in the sacroiliac joints with mild degenerative changes in the right hip joint space similar to the prior study. Impression dictated by: Tyrese Coon M.D.12/01/2022 10:10 AM Dictation Location: [place] [address] Transcribed By: [facility] 12/01/22 1010 Dictated By: Tyrese Coon II, MD 12/01/22 1002 Signed By: 12/01/22 1010 Normal [facility] Pre-Certification Formon Pre-Certification Form [id number]:127 Normal [facility] RAD - CT Reporton 09-06-2022 RAD - CT Report [id number]:[address] [facility] Consultation Noteon 08-27-19 Consultation Note [id number]:[address] [facility] CNPNon 08-19-2022 CNPN Telephone (UROLMN) -- JUAN BEAN ([id number]) 1965 M Date Time Provider Department 08/19/22 VÍCTOR ROSALES During your visit today, we recorded the following information about you: Víctor Rosales MD 08/19/2022 9:50 AM Signed Phoned patient with pathology results from recent surgery - no evidence of malignancy, LS present. Recommend periodic physical exam and CT scan pelvis to monitor for local recurrence and to monitor inguinal nodes that cannot be reliably palpated due to obesity. He prefers to arrange follow-up with Dr. Santana and will return here as needed. Víctor Rosales MD Allergies As of Date: 08/19/2022 (No Known Allergies) Date Reviewed: 08/13/2022 Reviewed by: Fany Dorado RN - Fully Assessed Reason for Visit: Results [95] Prescriptions as of 08/19/2022 - cephALEXin (KEFLEX) 500 mg capsule Take 1 capsule by mouth twice daily for 7 days. - acetaminophen (TYLENOL EXTRA STRENGTH) 500 mg tablet Take 2 tablets by mouth every 6 hours as needed for pain. - docusate sodium (COLACE) 100 mg capsule Take 1 capsule by mouth twice daily. - lisinopril-hydroCHLOROthia zide (ZESTORETIC) 20-25 mg per tablet Take 1 tablet by mouth once daily. In addition to lisinopril 20 mg QPM. - amLODIPine (NORVASC) 5 mg tablet - dicyclomine (BENTYL) 20 mg tablet Take 20 mg by mouth. - Docosahexanoic Acid-Eicosapent 120-180 mg capsule Take by mouth q 24 HR. - ergocalciferol 50,000 unit capsule (VITAMIN D2, DRISDOL) Ergocalciferol (Vitamin D2) Active 1250 UNIT PO every week May 17, 2022 12:00am - glimepiride (AMARYL) 4 mg tablet - HYDROcodone-acetaminophen (NORCO) 5-325 mg per tablet Take 1 tablet by mouth. - latanoprost (XALATAN) 0.005 % ophthalmic solution Use in eyes q 24 HR. 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 Author Type: Anesthesiologist Type: Anesthesia Postprocedure Evaluation Filed: 08/13/2022 5:07 PM Note Text: POST ANESTHESIA EVALUATION NOTE : 1965 Procedure Summary Date: 08/13/22 Room / Location: [address] [facility] Anesthesia Start: 1448 Anesthesia Stop: 1632 Procedures: BIOPSY PENIS (Penis) EXCISION BENIGN LESION GENITALS 3.1 TO 4.0 CM (Penis) Diagnosis: Penile cancer (HCC) (Penile cancer (HCC) [C60.9]) Surgeons: Víctor Rosales MD Responsible Provider: Brennan Henley MD Anesthesia Type: general ASA Status: 3 Anesthesia Type: general Airway Type: LMA Last Vitals Vitals Value Taken Time BP 119/57 08/13/22 1700 Temp 36.7 ?C (98.1 ?F) 08/13/22 1630 Pulse 81 08/13/22 1704 Resp 17 08/13/22 1704 SpO2 91 % 08/13/22 1704 Vitals shown include unvalidated device data. Post Anesthesia Patient Status Patient Evaluation: PACU. PACU/ICU Patient Condition: stable. Anticipated Disposition: phase 2 then home. Neurological Status: aware and responsive. Pulmonary Status: breathing comfortably on room air Airway Control: returned to baseline unsupported. Cardiovascular Status: stable. Pain Management: clinically adequate Postoperative Hydration: acceptable. Intraoperative Events: no significant anesthesia events Post Operative Nausea/Vomiting Status: no significant post operative nausea or vomiting Recommendation: continue current plan of care. Anesthesia Observations No Documentation SIGNATURE: Brennan Henley MD PATIENT NAME: Juan Bean DATE: August 13, 2022 TIME: 5:06 PM CSN: [id number] Normal [facility] ANES PRE-OPon 08-13-2022 ANES PRE-OP HNO ID: [id number] Author: Brennan Henley MD Service: ? Author Type: Anesthesiologist Type: Anesthesia Preprocedure Evaluation Filed: 08/13/2022 1:52 PM Note Text: ANESTHESIOLOGY DAY OF SURGERY NOTE : 1965 Procedure Information Date/Time: 08/13/22 1310 Procedures: BIOPSY PENIS (Penis) EXCISION BENIGN LESION GENITALS 3.1 TO 4.0 CM (Penis) [facility] Surgeons: Víctor Rosales MD Estimated body mass index is 46.97 kg/m? as calculated from the following: Height as of 07/12/22: 185.4 cm (6' 1 ). Weight as of 07/12/22: 161.5 kg (356 lb). Most recent hematocrit and potassium results: No results found for this basename: HCT,HEMATOCRIT,K,POTASSIUM Relevant Problems No relevant active problems I - PHYSICAL EVALUATION AIRWAY Patient intubated: No. Tracheostomy tube not present Mallampati: III. TM distance: >3 FB. Neck ROM: full ROM without neurological symptoms. Mouth opening: adequate. Short neck: no. Thick neck: no Garibay present: yes Lip Bite Test: I Microretrognathia/Micronag thia/Recessed Chin: No DENTAL Dental findings: missing tooth/teeth. Dentures, upper: complete. Additional exam findings: no II - ANESTHESIA PLAN ASA Score: 3 Anesthetic Plan: general Airway type: LMA NPO Status: adequate Beta Isiah Monitoring Plan Monitoring plan: standard ASA. Post Procedure Analgesic Plan Postoperative analgesic plan: multimodal analgesia. Informed Consent Anesthetic risks, benefits, alternatives, personnel and consent discussed: yes. Patient / Responsible Constitution Party agrees to proceed: yes Patient / Surrogate agrees to blood products: Yes DNR status not reviewed with patient and/or family prior to surgery. Significant changes in the patient condition since the History and Physical, not otherwise documented in primary service progress note: no. Potential Anesthesia issues that may suggest increased risk of complications or contraindication to planned procedure: none and potential difficult intubation. Vitals Value Taken Time BP 125/58 08/13/22 1144 Pulse 87 08/13/22 1144 Resp 16 08/13/22 1144 Temp 37 ?C (98.6 ?F) 08/13/22 1144 SpO2 95 % 08/13/22 1144 Facility-Administered Medications as of 08/13/2022 Medication Dose Route Frequency - lidocaine (PF) 10 mg/mL (1 %) 1-2 mg injection (XYLOCAINE) 0.1-0.2 mL INTRADERMAL PRN Or - lidocaine 1% 0.25 mL subcutaneous j-tip syringe (XYLOCAINE) 0.25 mL SUBCUTANEOUS PRN - lactated ringers iv infusion 5-30 mL/hr INTRAVENOUS CONTINUOUS - NaCl 0.9% iv flush bag 20 mL INTRAVENOUS PRN - ceFAZolin 3 g in D5W 100 mL (ANCEF) 3 g INTRAVENOUS Pre-Op Once Outpatient Medications as of 08/13/2022 Medication Sig - amLODIPine (NORVASC) 5 mg tablet - Docosahexanoic Acid-Eicosapent 120-180 mg capsule Take by mouth q 24 HR. - ergocalciferol 50,000 unit capsule (VITAMIN D2, BALWINDEROL) Ergocalciferol (Vitamin D2) Active 1250 UNIT PO every week May 17, 2022 12:00am - glimepiride (AMARYL) 4 mg tablet - latanoprost (XALATAN) 0.005 % ophthalmic solution Use in eyes q 24 HR. - lisinopril (ZESTRIL) 20 mg tablet Lisinopril Active 20 MG PO Every evening May 17, 2022 12:00am - meloxicam (MOBIC) 15 mg tablet - metFORMIN (GLUCOPHAGE) 1,000 mg tablet - metoprolol succinate ER (TOPROL XL) 50 mg 24 hr tablet - pioglitazone (ACTOS) 45 mg tablet - simvastatin (ZOCOR) 40 mg tablet Simvastatin Active 40 MG PO Every evening May 17, 2022 12:00am - tiZANidine HCl (ZANAFLEX) 4 mg capsule Tizanidine (Zanaflex) 4 mg capsule Active 4 MG PO Every evening May 17, 2022 12:00am - cephALEXin (KEFLEX) 500 mg capsule Take 500 mg by mouth twice daily. - dicyclomine (BENTYL) 20 mg tablet Take 20 mg by mouth. - HYDROcodone-acetaminophen (NORCO) 5-325 mg per tablet Take 1 tablet by mouth. I have interviewed and examined the patient. I have reviewed the medical record and/or the pre-anesthesia evaluation, pertinent labs, and test results. This contains updated information obtained within 48 hours of Surgery/Procedure. SIGNATURE: Brennan Henley MD PATIENT NAME: Juan Bean DATE: August 13, 2022 TIME: 1:51 PM CSN: [id number] [facility] BRIEF OP NOTon 08-13-2022 BRIEF OP NOT HNO ID: [id number] Author: Vinh Montague MD Service: Urology Author Type: Resident Type: Brief Op Note Filed: 08/13/2022 4:03 PM Note Text: UROLOGY SERVICE BRIEF OPERATIVE NOTE LOG ID: [id number] Surgery/Procedure Date: 08/13/2022 Incision/Procedure Start Time: 3:30 PM Incision Close/Procedure End Time: 3:57 PM Patient Age: [age] year old Surgeon(s)/Proceduralist(s ) and Medicine Teacher(s): Surgeon(s) and Role: * Víctor Rosales MD - Primary * Vinh Montague MD - Fellow No Additional Staff Anesthesia: General Preop Diagnosis: Pre-Op Diagnosis Codes: * Penile cancer (HCC) [C60.9] Postop Diagnosis: Same as preoperative diagnosis Procedure: Excision of penile lesions FLUIDS Intake: 1500cc crystalloid Urine Output: Not recorded Estimated Blood Loss: 5 mls Accidental punctures or Lacerations: None Drains: None Cultures: None Findings: - 5 mm polypoid lesion just inferior to the frenulum on the ventral shaft excised with elliptical excision -Erythematous glanular tissue along the dorsum biopsied with wedge excision -Dorsal shaft skin along the circ line excised -Hemostatic at conclusion Specimens: ID Type Source Tests Collected by Time Destination A : distal ventral penile lesion Tissue PENIS BIOPSY SURGICAL PATHOLOGY Víctor Rosales MD 08/13/2022 3:33 PM B : left dorsal glans penis Tissue PENIS BIOPSY SURGICAL PATHOLOGY Víctor Rosales MD 08/13/2022 3:41 PM C : dorsal distal penile skin Tissue PENIS BIOPSY SURGICAL PATHOLOGY Víctor Rosales MD 08/13/2022 3:46 PM Complications: None SIGNATURE: Vinh Montague MD PATIENT NAME: Juan Bean DATE: August 13, 2022 TIME: 4:00 PM PAGER/CONTACT #: Normal [facility] CNCOon 08-13-2022 CNCO Letter Text Normal [facility] HISTORY PHYSICALon HISTORY PHYSICAL HNO ID: [id number] Author: Hollis Lugo MD Service: Urology Author Type: Resident Type: HANDP Filed: 08/13/2022 12:31 PM Note Text: -- Attestation signed by Víctor Rosales MD at 08/13/2022 2:06 PM Discussed with resident, agree with plan Víctor Rosales M.D. -- Preoperative HANDP Chief complaint: Patient is here today for management of penile cancer via excisional biopsy. History, update from last visit: Previous notes, reviewed, no significant new changes, patient is doing well, denies fever, abdominal pain, nausea or vomiting, no new voiding symptoms or constipation. Examination: Patient is awake and alert , oriented to time, person, place Chest: unlabored breathing, lung sounds clear and equal bilaterally on auscultation Heart: regular rate and rhythm, normal S1/S2 hear sounds appreciated, normal peripheral pulsations Abdomen: Soft, non tender, non distended, no palpable organs All lab results, imaging reviewed and there was no change. Assessment and plan of management: Patient is here today for management of penile cancer Plan for excisional biopsy with Dr. Parks All patient's questions were discussed in details, outline of procedure and recovery discussed. Hollis Lugo MD, MS Urology PGY-2 Pager: [phone] After Hours [facility] Urology Service Pager: [phone] [facility] NURSING PROGon 08-13-2022 NURSING PROG HNO ID: [id number] Author: Fany Dorado RN Service: ? 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 Bean [id number], needs letter written not to work for at least one week. Thanks Fany [phone] This note was completed by: Fany Dorado RN [facility] NURSING PROG HNO ID: [id number] Author: Fany Dorado RN Service: ? Author Type: Registered Nurse Type: Nursing Progress Note Filed: 08/13/2022 7:10 PM Note Text: Nursing Progress Note Topic of Note: Maria D Bean [id number] Dr. Rosales text paged: Mr. 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 Needs work excuse if can't go to work. Please call [phone]. Fany This note was completed by: Fany Dorado RN [facility] NURSING PROG HNO ID: [id number] Author: Fany Dorado RN Service: ? Author Type: Registered Nurse Type: Nursing Progress Note Filed: 08/13/2022 7:06 PM Note Text: Nursing Progress Note Topic of Note: Incidental Juan Pack [place] [id number] Dr. Montague (urology surgical instrument mechanic) text paged: good afternoon, Mr. Bean [id number], ? re: work, lifting, [place] [phone]? Thanks, Fany [phone] This note was completed by: Fany Dorado RN [facility] NURSING PROG HNO ID: [id number] Author: Fany Dorado RN Service: ? Author Type: Registered Nurse Type: Nursing Progress Note Filed: 08/13/2022 6:51 PM Note Text: PATIENT EDUCATION TOPIC: PROCEDURE / SURGERY: Post-op Teaching: Med Administration, Symptom Management, and Wound Care PATIENT NAME: Juan Bean PATIENT LOCATION: Main - Periop OR/Main - * READINESS TO LEARN COGNITIVE ABILITY: Alert and oriented MOTIVATION TO LEARN: Eager Interested FAMILY SUPPORT: High - Very involved in pt care INSTRUCTION PROVIDED TO: Patient and Significant Other PATIENT LEARNS BEST BY: Written Instruction - Hand-outs Verbal Instruction FACTORS AFFECTING LEARNING: None PHYSICAL LIMITATIONS AFFECTING LEARNING: None LEARNING RESPONSE DIAGNOSIS: ADULT: penile cancer PATIENT/FAMILY RESPONSE: Verbalizes understanding of: INFECTION MANAGEMENT-Signs and symptoms of an infection and importance of contacting the physician MEDICAL REGIMEN-Importance of following prescribed medical regimen MEDICATION DOSE MISSED-Correct action to take if medication dose is missed MEDICATION PRESCRIBED-Accurate knowledge of prescribed medication prior to discharge MEDICATION ROUTE-Correct route for administration of the prescribed medication MEDICATION SIDE EFFECTS-Side effects associated with the medication that warrant a call to the physician PAIN MANAGEMENT-Effective strategies to manage pain in addition to pain medication PHYSICAL RESTRICTIONS-Physical restrictions and recommendations after discharge from the hospital POST-OPERATIVE INSTRUCTIONS-Correct actions to take to reduce postoperative complications PATIENT SAFETY PRINCIPLES SYMPTOM MANAGEMENT-Correct actions to take to manage symptoms associated with his/her disease/illness WORSENING CONDITION-Signs and symptoms of a worsening condition that warrant a call to the physician WOUND CARE-Correct procedure to perform wound care Information received as demonstrated by interest and questions METHOD OF INSTRUCTION: Written instruction - handouts Verbal instruction FOLLOW-UP PLAN: Patient instructed to call with any further issues Recommend - Recommend continued instruction and follow up as directed Contact information given. INSTRUCTIONAL AIDS USED: NA SUPPLEMENTAL MATERIAL PROVIDED TO PATIENT: None REFERRAL (RECOMMENDATION): None Electronically Signed By: Fany Dorado RN [facility] NURSING PROG HNO ID: [id number] Author: Marisel Jones, ОЛЕГ Service: Nursing Author Type: Registered Nurse Type: Nursing Progress Note Filed: 08/13/2022 12:06 PM Note Text: Other: [facility] Nursing Note Dr. Henley, anesthesia, paged [id number], OR , [facility], [facility] patient's pre-op blood sugar is 197. Held PO diabetic meds per pre-op instructions. Thanks, Karla [id number] Urology resident paged [phone]) for updated HANDP. [id number], OR 21 - [facility], Patient's HANDP needs updated, > 30 days. Thanks, Karla Manzanares [facility] OPERATIVE NOon 08-13-2022 OPERATIVE NO HNO ID: [id number] Author: Víctor Rosales MD Service: Urology Author Type: Physician Type: Operative Report Filed: 08/16/2022 9:36 AM Note Text: UROLOGY OPERATIVE REPORT LOG ID: [id number] Surgery/Procedure Date: 08/13/2022 Incision/Procedure Start Time: 3:30 PM Incision Close/Procedure End Time: 3:57 PM Surgeon(s)/Proceduralist(s ) and Medicine Teacher(s): Surgeon(s) and Role: * Víctor Rosales MD - Primary * Vinh Montague MD - Fellow No Additional Staff Procedure(s): Operation: Excision of penile lesions Anatomic Site: Penis, Laterality: Not applicable Approach: Open Device: None Qualifier: None Anesthesia: General Operative Indications: Juan Bean is a 57 year old male with a history of morbid obesity, diabetes, hypertension and hyperlipidemia who underwent circumcision at an outside hospital and was found to have invasive moderately differentiated squamous cell carcinoma on pathology. On post-operative exam, there was concern for penile lesions on the distal penile shaft skin and glans. He was referred to us for further management. After discussing the risks, benefits, and alternatives of the procedure, the patient elected to pursue management of their condition via the aforementioned surgery. Operative Findings: -5 mm polypoid lesion just inferior to the frenulum on the ventral shaft excised with a wide elliptical excision -Erythematous glanular tissue along the dorsum biopsied with wedge excision -Reddened dorsal shaft skin along the circumcision line excised -Hemostatic at conclusion Procedure Details: The patient was correctly identified and the operative plan was confirmed with the patient and the operative team. A weight appropriate dose of prophylactic antibiotics was administered intravenously prior to the procedure and sequential compression devices were applied to the lower extremities and activated prior to induction of anesthesia. The patient was placed in the supine position. General anesthesia was induced. All pressure points were padded per protocol and the operative area was prepped and draped in the standard sterile fashion. The penis was moderately buried given his obesity and pannus, but could be exposed with manual pressure. A glans traction suture was placed to tailor helper in exposure of the penis. Exam revealed a ~5 mm polypoid lesion just inferior to the frenulum on the ventral shaft. The mass was mobile and did not appear invasive into the urethra or sponge. A large portion of the dorsal aspect of the glans was erythematous which looked like balanitis but malignancy could not be ruled out. Finally, along the dorsal shaft skin just distal to the circumcision line there was some erythematous skin, but no obvious mass. An elliptical incision was made around the ventral shaft lesion with a blade. Tenotomy scissors were used to excise the mass along with some underlying dartos as well. The urethra was identified just deep to the excision bed but appeared uninvolved. Hemostasis was then obtained with bipolar cautery. The frenulum was brought together with several interrupted 5-0 vicryl sutures. The elliptical incision was then brought together transversely with interrupted 5-0 vicryl as well. Attention was then turned to the glans. An elliptical wedge incision was made in the left aspect of the dorsal glans in an area of concerning erythema. Hemostasis was obtained and the glans was re-approximated with several interrupted 5-0 vicryl. Finally, tenotomy scissors were used to excise some of the concerning dorsal penile shaft skin at about 12 o'clock. The skin was also re-approximated with several interrupted 5-0 vicryl sutures. All specimens were sent to pathology for analysis. Hemostasis was excellent. The incisions were covered with Bacitracin ointment. The glans traction suture was removed and pressure held until it was hemostatic. The patient tolerated the procedure well, emerged from anesthesia without incident, and was transferred to PACU in stable condition. The primary surgeon/proceduralist performed the procedure with assistance. Pre-Op/Pre-Procedure Diagnosis: Pre-Op Diagnosis Codes: * Penile cancer (HCC) [C60.9] Post-Op/Post-Procedure Diagnosis: Post-Op Diagnosis Codes: * Penile cancer (HCC) [C60.9] Accidental Punctures or Lacerations: Not applicable Estimated Blood Loss: 5cc Specimens: ID Type Source Tests Collected by Time Destination A : distal ventral penile lesion Tissue PENIS BIOPSY SURGICAL PATHOLOGY Víctor Rosales MD 08/13/2022 3:33 PM B : left dorsal glans penis Tissue PENIS BIOPSY SURGICAL PATHOLOGY Víctor Rosales MD 08/13/2022 3:41 PM C : dorsal distal penile skin Tissue PENIS BIOPSY SURGICAL PATHOLOGY Víctor Rosales MD 08/13/2022 3:46 PM Implanted Devices: None Drains: None Complications: None I/primary surgeon/proceduralist performed the procedure with (more content not included)... Normal [facility] SURGICAL PATHOLOGYon 023 CASE REPORT Normal [facility] Comment on above: Order Comment: Speci men Type: TISSUE SPECIMENOrdering Facility: [facility] Address: [address] [place] [phone] Result Comment: Surg [facility] Pathology Report Case: [id number] Authorizing Provider: Víctor Rosales MD Collected: 08/13/2022 03:33 PM Ordering Location: Admitting Received: 08/13/2022 04:30 PM Pathologist: Nazia Dunne MD Specimens: A) - PENIS BIOPSY, distal ventral penile lesion B) - PENIS BIOPSY, left dorsal glans penis C) - PENIS BIOPSY, dorsal distal penile skin Performed By: #### S ####[facility] LABCLIA [id number] [place] [address] [place] CLINICAL HISTORY Normal [facility] Comment on above: Order Comment: Speci men Type: TISSUE SPECIMENOrdering Facility: [facility] Address: [address] [address] Result Comment: Pre- op diagnosis: Penile cancer (HCC) [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 D istal ventral penile lesion, excision: -Lichen sclerosus. -Skin with ulceration, acute and chronic inflammation and reactive changes. -Negative for malignancy. B. Left dorsal glans penis, biopsy: -Lichen sclerosus. -Negative for malignancy. C. Distal dorsal penile skin, biopsy: -Benign skin with acute and chronic inflammation. Performed By: #### S ####[facility] LABIA [id number] [address] [place] FINAL PERFORMING LAB Normal [facility] Comment on above: Order Comment: Speci men Type: TISSUE SPECIMENOrdering Facility: [facility] Address: [address] [place] [address] Result Comment: Diag nostic interpretation performed at [facility] [place], [address] [address] CLIA# [id number] Dual Hose Cementer: Antonio Peters M.D. Performed By: #### S ####[facility] LABCLIA [id number] [place] [address] [place] GROSS DESCRIPTION A. PENIS BIOPSY Normal [facility] Comment on above: Order Comment: Speci men Type: TISSUE SPECIMENOrdering Facility: [facility] Address: [address] [address] Result Comment: Rece ived in formalin labeled as distal ventral penile lesion is an elliptical segment of possible briceno-mcgill, wrinkled unoriented skin measuring 1.7 x 0.9 x 0.5 cm. The margin is completely inked black. A mcgill, nodular area is identified measuring 0.6 x 0.5 cm, extending 0.3 cm above the possible skin surface. The specimen is bisected to reveal the nodule extends 0.1 cm below the skin surface, located 0.4 cm from the deep margin the remaining cut surfaces are slightly fibrous. Totally submitted in 1 cassette. B. PENIS BIOPSY Received in formalin labeled as left dorsal glans penis is a briceno-mcgill mucosal covered, unoriented, irregularly shaped tissue fragment measuring 0.4 x 0.2 x 0.2 cm. A possible resection margin is identified and inked black. Totally submitted in 1 cassette. C. PENIS BIOPSY Received in formalin labeled as dorsal distal penile skin is an elliptical segment of briceno-mcgill mucosal covered, irregularly shaped tissue measuring 1.3 x 0.6 x 0.2 cm. The specimen is bisected and totally submitted in 1 cassette. RSA August 16, 2022 1:19 PM Gross examination performed at [facility] [place], [address] [place] [address] Performed By: #### S ####[facility] LABCLIA [id number] [facility] [id number] [place] Bernadette 07-28-2022 DANGELO Telephone (DARLING) -- JUAN BEAN ([id number]) 1965 M Date Time Provider Department 07/28/22 NEEMA ARIAS During your visit today, we recorded the following information about you: Neema Arias RN 07/28/2022 8:32 AM Signed ----- Message from Atiya Cotter Patient Service Spec sent at 07/21/2022 11:18 AM EDT ----- Regarding: pre op instructions Contact: Spoke to Juan- he wants to know of any pre op instructions as far as fasting and/or stopping any medications. Please advise and thank you, Atiya Allergies As of Date: 07/28/2022 (No Known Allergies) Date Reviewed: 07/12/2022 Reviewed by: ADELA Crandall - Fully Assessed Reason for Visit: Patient Question [4682] Cmt: Patient call with Marco Antonio Michael NP to discuss pre op medications to hold. Prescriptions as of 07/28/2022 - lisinopril-hydroCHLOROthia zide (ZESTORETIC) 20-25 mg per tablet Take 1 tablet by mouth once daily. In addition to lisinopril 20 mg QPM. - amLODIPine (NORVASC) 5 mg tablet - cephALEXin (KEFLEX) 500 mg capsule Take 500 mg by mouth twice daily. - dicyclomine (BENTYL) 20 mg tablet Take 20 mg by mouth. - Docosahexanoic Acid-Eicosapent 120-180 mg capsule Take by mouth q 24 HR. - ergocalciferol 50,000 unit capsule (VITAMIN D2, DRISDOL) Ergocalciferol (Vitamin D2) Active 1250 UNIT PO every week May 17, 2022 12:00am - glimepiride (AMARYL) 4 mg tablet - HYDROcodone-acetaminophen (NORCO) 5-325 mg per tablet Take 1 tablet by mouth. - latanoprost (XALATAN) 0.005 % ophthalmic solution Use in eyes q 24 HR. 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] 07/12/2022 Morbid obesity with BMI of 45.0-49.9, adult (HC*07/12/2022 Encounter Status:Closed by NEEMA ARIAS on 07/28/22 [facility] 07-27-2022 CNPN Telephone (UROLBE) -- JUAN BEAN ([id number]) 1965 M Date Time Provider Department 07/27/22 MARCO ANTONIO MICHAEL UROLBE During your visit today, we recorded the following information about you: Marco Antonio Michael APRN.[facility] 07/27/2022 1:33 PM Signed ----- Message from Neema Arias RN sent at 07/23/2022 1:01 PM EDT ----- Regarding: FW: pre op instructions Contact: Marco Antonio, This patient is having a penile biopsy with [facility] on 08/13. He lives far away and did not want to come and take time off work for [employer]. Now he is calling to find out what meds to hold prior to surgery. I really don't feel comfortable looking at his list making those judgments. Can you let me know what he should hold and either call him or tell me and I will call him? He did get labwork locally ThanksJOSE ANGEL ----- Message ----- From: Atiya Cotter Patient Service Spec Sent: 07/21/2022 11:32 AM EDT To: Neema Arias RN Subject: pre op instructions Spoke to Juan- he wants to know of any pre op instructions as far as fasting and/or stopping any medications. Please advise and thank you, Atiya Michael APRN.[employer] 07/27/2022 1:41 PM Signed Called Juan Bean. He reports that he takes lisinopril-HCTZ 20-25 mg in AM and lisinopril 20 mg in PM. Typically takes meloxicam every day. Advised that he should stop fish oil on 07/30/2022. He should stop meloxicam on 08/06/2022. He should hold lisinopril-HCTZ and lisinopril on 08/12/2022 and 08/13/2022. He should hold all DM meds (metformin, glipizide, and Actos) on 08/13/2022. Advised that he will likely need to arrive around 12:00 (but will get call on 08/12/2022 with official check in instructions) and that surgery may take up to 4 hours. Juan Bean verbalizes understanding. No other questions at this time. Marco Antonio Michael, SHAHZAD.ELECTRICAL TESTER Allergies As of Date: 07/27/2022 (No Known Allergies) Date Reviewed: 07/12/2022 Reviewed by: ADELA Crandall - Fully Assessed Reason for Visit: Patient Question [1477] Prescriptions as of 07/27/2022 - lisinopril-hydroCHLOROthia zide (ZESTORETIC) 20-25 mg per tablet Take 1 tablet by mouth once daily. In addition to lisinopril 20 mg QPM. - amLODIPine (NORVASC) 5 mg tablet - cephALEXin (KEFLEX) 500 mg capsule Take 500 mg by mouth twice daily. - dicyclomine (BENTYL) 20 mg tablet Take 20 mg by mouth. - Docosahexanoic Acid-Eicosapent 120-180 mg capsule Take by mouth q 24 HR. - ergocalciferol 50,000 unit capsule (VITAMIN D2, DRISDOL) Ergocalciferol (Vitamin D2) Active 1250 UNIT PO every week May 17, 2022 12:00am - glimepiride (AMARYL) 4 mg tablet - HYDROcodone-acetaminophen (NORCO) 5-325 mg per tablet Take 1 tablet by mouth. - latanoprost (XALATAN) 0.005 % ophthalmic solution Use in eyes q 24 HR. 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 - lisinopril (ZESTRIL) 20 mg tablet (Discontinued) - lisinopril-hydroCHLOROthia zide (ZESTORETIC) 20-25 mg per tablet (Discontinued) Encounter Status:Closed by MARCO ANTONIO MICHAEL on 07/27/22 [facility] Consultation Noteon 07-19-19 Consultation Note [id number]:[address] [facility] Consultation Noteon 07-15-19 Consultation Note [id number]:[address] [facility] CNOVon 07-12-2022 CNOV Office Visit (UROLMN ) -- JUAN BEAN ([id number]) 1965 M Date Time Provider Department 07/12/22 8:30 AM VÍCTOR ROSALES During your visit today, we recorded the following information about you: Pulse Blood pressure Weight Height 92/minute 162/81 161.5 kg 1.854 m Víctor Rosales MD 07/12/2022 9:40 AM Signed [facility] NEW PATIENT HISTORY AND PHYSICAL EXAM PATIENT INFO: Juan Bean 57 year old REFERRING M.D.: No referring provider defined for this encounter. This consult was requested by Daniel Leonard MD for an opinion regarding penile cancer, and my final recommendations will be communicated to the requesting health care provider by way of the shared medical record for internal providers or letter via the [employer] for external providers. ====== HISTORY ====== CHIEF COMPLAINT: Penile cancer HPI: 57M former smoker w BMI 46, HTN, HLD, and DM2 presents for penile cancer. 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 Today, he has recovered well from surgery and denies LUTS. He is able to get moderate erections, and he hopes to be sexually active w his girlfriend in the future. MEDICATIONS: Current Outpatient Medications Medication Sig dicyclomine (BENTYL) 20 mg tablet Take 20 mg by mouth. ergocalciferol 50,000 unit capsule (VITAMIN D2, DRISDOL) Ergocalciferol (Vitamin D2) Active 1250 UNIT PO every week May 17, 2022 12:00am lisinopril (ZESTRIL) 20 mg tablet Lisinopril Active 20 MG PO Every evening May 17, 2022 12:00am simvastatin (ZOCOR) 40 mg tablet Simvastatin Active 40 MG PO Every evening May 17, 2022 12:00am tiZANidine HCl (ZANAFLEX) 4 mg capsule Tizanidine (Zanaflex) 4 mg capsule Active 4 MG PO Every evening May 17, 2022 12:00am amLODIPine (NORVASC) 5 mg tablet cephALEXin (KEFLEX) 500 mg capsule Take 500 mg by mouth twice daily. cholecalciferol, Vitamin D3, (VITAMIN D3) 1,250 mcg (50,000 unit) cap capsule Take by mouth. Docosahexanoic Acid-Eicosapent 120-180 mg capsule Take by mouth q 24 HR. glimepiride (AMARYL) 4 mg tablet HYDROcodone-acetaminophen (NORCO) 5-325 mg per tablet Take 1 tablet by mouth. latanoprost (XALATAN) 0.005 % ophthalmic solution Use in eyes q 24 HR. lisinopril (ZESTRIL) 20 mg tablet lisinopril-hydroCHLOROthia zide (ZESTORETIC) 20-25 mg per tablet meloxicam (MOBIC) 15 mg tablet metFORMIN (GLUCOPHAGE) 1,000 mg tablet metoprolol succinate ER (TOPROL XL) 50 mg 24 hr tablet pioglitazone (ACTOS) 45 mg tablet No current facility-administered medications for this visit. MEDICATION ALLERGIES: ALLERGIES No Known Allergies No past medical history on file. No past surgical history on file. FAMILY HISTORY: NEGATIVE: No related previous family history. Social History Tobacco Use Smoking status: Former Types: Cigarettes Smokeless tobacco: Current REVIEW OF SYSTEMS: Constitutional: negative Eyes: negative Ear Nose and Throat: negative Cardiovascular: negative Respiratory: negative Gastrointestinal: negative Musculoskeletal: negative Integumentary: negative Neurological: negative Psychiatric: negative Endocrine: negative Hematologic/Lymphatic: negative Allergic/Immunologic: negative ====== PHYSICAL EXAM: ====== BP 162/81 (BP Site: Left Arm, BP Position: Sitting, BP Cuff Size: Large Adult) Pulse 92 Ht 185.4 cm (6' 1 ) Wt (!) 161.5 kg (356 lb) BMI 46.97 kg/m? GENERAL:WNL nutrition, no deformities, healthy appearing HEAD AND NECK: No masses, adenopathy, icterus. Thyroid nonpalpable RESP: Chest clear to auscultation without wheezing, rales, or rhonchi. CV: RRR, no murmurs, rubs or gallops ABDOMEN: Soft, nontender, nondistended, no masses. HERNIAS: None SKIN/LYMPH: No rash, lesions NEURO/PSYCH: No signs of depression, anxiety, or agitation EXTREMITIES: Extremities normal. No deformities, edema, clubbing or skin discoloration. GENITOURINARY: MALE EXAM: No scrotal lesions, cysts, rashes. Spermatoceles: None Hydroceles: None Varicoceles: None Epididymis AND testes: normal size, position, without masses Urethra AND meatus: normal size AND position w/o lesion or discharge Penis: buried but easily exposed with pressure. circumcised with a subcentimeter erythematous polyp at the ventral circ line as well as multiple erythematous areas of the glans c/f SCC. ====== MEDICAL DECISION MAKING: ====== (A1) IMPRESSION: (Diagnostic Possibilities) New or Established 1) Buried penis 2) Penile SCC (A2) PLAN: (Management Options) OR excision of concerning lesions Allan Mayorga Jr., MD Reconstructive Urology Fellow Electronically signed = (more content not included)... Normal [facility] URINALYSIS, REFLEX MICROSCOP ICon 07-12-2022 Bilirubin Ql (U) Negative Normal Negative [facility] Comment on above: Order Comment: Speci men Type: URINE SPECIMENOrdering Facility: [facility] Address: [address] [place] [address] Performed By: #### L [id number] ####[facility] LABCLIA [id number] [place] [address] [place] Clarity (Unsp spec) Clear Normal Clear [facility] Comment on above: Order Comment: Speci men Type: URINE SPECIMENOrdering Facility: [facility] Address: [address] [place] [address] Performed By: #### L [id number] ####[facility] LABCLIA [id number] [place] [address] [place] Color (U) Light Yellow Normal Yellow [facility] Comment on above: Order Comment: Speci men Type: URINE SPECIMENOrdering Facility: [facility] Address: [address] [address] Performed By: #### L [id number] ####[facility] LABCLIA [id number] [place] [address] [place] Glucose Test strip (U) [Mass/Vol] Negative Normal Trace, Negative [facility] Comment on above: Order Comment: Speci men Type: URINE SPECIMENOrdering Facility: [facility] Address: [address] [place] [address] Performed By: #### L [id number] ####[facility] LABCLIA [id number] [place] [address] [place] Hemoglobin Ql (U) Negative Normal Negative, Trace [facility] Comment on above: Order Comment: Speci men Type: URINE SPECIMENOrdering Facility: [facility] Address: [address] [place], [place] [id number] Performed By: #### L [id number] ####[facility] LABCLIA [id number] [place] [address] [place] Ketones Ql (U) Negative Normal Negative, Trace [facility] Comment on above: Order Comment: Speci men Type: URINE SPECIMENOrdering Facility: [facility] Address: [address] Performed By: #### L [id number] ####[facility] LABCLIA [id number] [place] [address] [place] Leukocyte esterase Test strip Ql (U) 75 Doreen/uL Abnormal Negative, 25 Doreen/uL [facility] Comment on above: Order Comment: Speci men Type: URINE SPECIMENOrdering Facility: [facility] Address: [address] [place] [address] Performed By: #### L [id number] ####[facility] LABIA [id number] [place] [address] [place] Nitrite Ql (U) Negative Normal Negative [facility] Comment on above: Order Comment: Speci men Type: URINE SPECIMENOrdering Facility: [facility] Address: [address] [place], [place] [id number] Performed By: #### L [id number] ####[facility] LABIA [id number] [place] [address] [place] pH (U) 5.5 [pH] Normal 5.0-8.0 [facility] Comment on above: Order Comment: Speci men Type: URINE SPECIMENOrdering Facility: [facility] Address: [address] [place], [place] [id number] Performed By: #### L [id number] ####[facility] LABIA [id number] [place] [address] [place] Protein (U) [Mass/Vol] Negative Normal Trace , Negative [facility] Comment on above: Order Comment: Speci men Type: URINE SPECIMENOrdering Facility: [facility] Address: [address] [place], [place] [id number] Performed By: #### L [id number] ####[facility] LABIA [id number] [place] [address] [place] Specific gravity (U) [Rel density] 1.018 Normal 1.005-1.030 [facility] Comment on above: Order Comment: Speci men Type: URINE SPECIMENOrdering Facility: [facility] Address: [address] [place], [place] [id number] Performed By: #### L [id number] ####[facility] LABIA [id number] [place] [address] [place] Urobilinogen Ql (U) Negative Normal Negative [facility] Comment on above: Order Comment: Speci men Type: URINE SPECIMENOrdering Facility: [facility] Address: [address] [place] [address] Performed By: #### L [id number] ####[facility] LABCLIA [id number] MAGUI [facility]ITAL[facility]elle [id number] OF [facility] Bilirubin Ql (U) Negative Negative [facility] Clarity (Unsp spec) Clear Clear [facility] Color (U) Light Yellow Yellow [facility] Glucose Test strip (U) [Mass/Vol] Negative Trace, Negative [facility] Hemoglobin Ql (U) Negative Negative, Trace [facility] Ketones Ql (U) Negative Negative, Trace [facility] Leukocyte esterase Test strip Ql (U) 75 Doreen/uL Abnormal Negative, 25 Doreen/uL [facility] Nitrite Ql (U) Negative Negative [facility] pH (U) 5.5 [pH] 5.0 - 8.0 [facility] Protein (U) [Mass/Vol] Negative Trace , Negative [facility] Specific gravity (U) [Rel density] 1.018 1.005 - 1.030 [facility] Urobilinogen Ql (U) Negative Negative [facility] Pathology Noteon 07-06-2022 Pathology Note [id number]:127 Normal [facility] Alanine aminotransferase [En zymatic activity/volume] in Serum or PlasmaOrdered By: Silvio Yu on 06-30-2022 ALT [Catalytic activity/Vol] 20 U/L 7-52 [facility] Albumin [Mass/volume] in Ser um or Plasma by Bromocresol green (BCG) dye binding methoOrdered By: Silvio Yu on 06-30-2022 Albumin BCG dye [Mass/Vol] 4.5 g/dL 3.5-5.7 [facility] Alkaline phosphatase [Enzyma tic activity/volume] in Serum or PlasmaOrdered By: Silvio Yu on 06-30-2022 ALP [Catalytic activity/Vol] 57 U/L 34-104 [facility] Aspartate aminotransferase [ Enzymatic activity/volume] in Serum or PlasmaOrdered By: Silvio Yu on 06-30-2022 AST [Catalytic activity/Vol] 17 U/L 13-39 [facility] Basophils Auto (Bld) [#/Vol] Ordered By: Silvio Yu on 06-30-2022 Basophils (Bld) [#/Vol] 0.0 10*3/uL 0.0-0.2 [facility] Basophils/100 WBC Auto (Bld) Ordered By: Silvio Yu on 06-30-2022 Basophils/100 WBC (Bld) 0.2 % . [facility] Bilirubin.total [Mass/volume ] in Serum or PlasmaOrdered By: Silvio Yu on 06-30-2022 Bilirubin [Mass/Vol] 0.7 mg/dL 0.3-1.0 [facility] Calcium [Mass/volume] in Ser um or PlasmaOrdered By: Silvio Yu on 06-30-2022 Calcium [Mass/Vol] 9.7 mg/dL 8.6-10.3 [facility] Carbon dioxide, total [Moles /volume] in Serum or PlasmaOrdered By: Silvio Yu on 06-30-2022 CO2 [Moles/Vol] 29.5 mmol/L 21.0-31.0 [facility] Chloride [Moles/volume] in S radha or PlasmaOrdered By: Silvio Yu on 06-30-2022 Chloride [Moles/Vol] 98 mmol/L 98-107 [facility] Creatinine [Mass/volume] in Serum or PlasmaOrdered By: Silvio Yu on 06-30-2022 Creatinine [Mass/Vol] 0.85 mg/dL 0.70-1.30 [facility] Eosinophils Auto (Bld) [#/Vo l]Ordered By: Silvio Yu on 06-30-2022 Eosinophils (Bld) [#/Vol] 0.1 10*3/uL 0.0-0.45 [facility] Eosinophils/100 WBC Auto (Bl d)Ordered By: Silvio Yu on 06-30-2022 Eosinophils/100 WBC (Bld) 1.3 % . [facility] Erythrocyte distribution wid th Auto (RBC) [Ratio]Ordered By: Silvio Yu on 06-30-2022 Erythrocyte distribution width (RBC) [Ratio] 13.8 % 12.0-14.8 [facility] Globulin Calc (S) [Mass/Vol] Ordered By: Silvio Yu on 06-30-2022 Globulin (S) [Mass/Vol] 3.1 g/dL [facility] Glucose [Mass/volume] in Ser um or PlasmaOrdered By: Silvio Yu on 06-30-2022 Glucose [Mass/Vol] 154 mg/dL 70-100 [facility] Comment on above: ADA recommended refe rence rangeRandom Glucose Reference Range is dependent on time and content of last meal. Glucose of more than 200 mg/dL in a nonstressed, ambulatory subject supports the diagnosis of Diabetes Mellitus. Hematocrit Auto (Bld) [Volum e fraction]Ordered By: Silvio Yu on 06-30-2022 Hematocrit (Bld) [Volume fraction] 43.8 % 38.8-50.0 [facility] Hemoglobin [Mass/volume] in BloodOrdered By: Silvio Yu on 06-30-2022 Hemoglobin (Bld) [Mass/Vol] 14.7 g/dL 13.0-17.0 [facility] Leukocytes [#/volume] correc mariah for nucleated erythrocytes in Blood by Automated counOrdered By: Silvio Yu on 06-30-2022 WBC corrected for nucl RBC Auto (Bld) [#/Vol] 8.5 10*3/uL 4.1-10.5 [facility] Lymphocytes Auto (Bld) [#/Vo l]Ordered By: Silvio Yu on 06-30-2022 Lymphocytes (Bld) [#/Vol] 1.3 10*3/uL 1.00-4.8 [facility] Lymphocytes/100 WBC Auto (Bl d)Ordered By: Silvio Yu on 06-30-2022 Lymphocytes/100 WBC (Bld) 15.0 % . [facility] MCH Auto (RBC) [Entitic mass ]Ordered By: Silvio Yu on 06-30-2022 MCH (RBC) [Entitic mass] 30.4 pg 27.5-35.2 [facility] MCHC Auto (RBC) [Mass/Vol]Or dered By: Silvio Yu on 06-30-2022 MCHC (RBC) [Mass/Vol] 33.6 g/dL 32.5-35.6 [facility] MCV Auto (RBC) [Entitic vol] Ordered By: Silvio Yu on 06-30-2022 MCV (RBC) [Entitic vol] 90.6 fL 83.5-101 [facility] Monocytes Auto (Bld) [#/Vol] Ordered By: Silvio Yu on 06-30-2022 Monocytes (Bld) [#/Vol] 0.7 10*3/uL 0.0-0.8 [facility] Monocytes/100 WBC Auto (Bld) Ordered By: Silvio Yu on 06-30-2022 Monocytes/100 WBC (Bld) 8.8 % . [facility] Neutrophils Auto (Bld) [#/Vo l]Ordered By: Silvio Yu on 06-30-2022 Neutrophils (Bld) [#/Vol] 6.3 10*3/uL 1.8-7.7 [facility] Neutrophils/100 WBC Auto (Bl d)Ordered By: Silvio Yu on 06-30-2022 Neutrophils/100 WBC (Bld) 74.7 % . [facility] No Panel InformationOrdered By: Silvio Yu on 06-30-2022 Estimated GFR (CKD-EPI) > 60.0 mL/Min [facility] Creatinine Clearance (Chem 154.44 [facility] Nucleated erythrocytes [Pres ence] in Blood by Automated countOrdered By: Silvio Yu on 06-30-2022 Nucleated RBC Auto Ql (Bld) 0.1 /100{WBC} 0-0.5 [facility] Platelet mean volume Auto (B ld) [Entitic vol]Ordered By: Silvio Yu on 06-30-2022 Platelet mean volume (Bld) [Entitic vol] 8.3 fL 6.6-10.1 [facility] Platelets Auto (Bld) [#/Vol] Ordered By: Silvio Yu on 06-30-2022 Platelets (Bld) [#/Vol] 173 10*3/uL 150-450 [facility] Potassium [Moles/volume] in Serum or PlasmaOrdered By: Silvio Yu on 06-30-2022 Potassium [Moles/Vol] 4.1 mmol/L 3.5-5.1 [facility] Protein [Mass/volume] in Ser um or PlasmaOrdered By: Silvio Yu on 06-30-2022 Protein [Mass/Vol] 7.6 g/dL 6.4-8.9 [facility] RBC Auto (Bld) [#/Vol]Ordere d By: Silvio Yu on 06-30-2022 RBC (Bld) [#/Vol] 4.83 10*6/uL 3.90-5.60 [facility] Serum or plasma albumin/glob ulin mass ratioOrdered By: Silvio Yu on 06-30-2022 Albumin/Globulin [Mass ratio] 1.5 {ratio} [facility] Serum or plasma anion gap de terminationOrdered By: Silvio Yu on 06-30-2022 Anion gap [Moles/Vol] 12.6 mmol/L 6.0-15.0 [facility] Serum or plasma carcinoembry onic antigen measurement (mass/volume)Ordered By: Silvio Yu on 06-30-2022 Carcinoembryonic Ag [Mass/Vol] 1.7 ng/mL 0.0-3.0 [facility] Sodium [Moles/volume] in Ser um or PlasmaOrdered By: Silvio Yu on 06-30-2022 Sodium [Moles/Vol] 136 mmol/L 136-145 [facility] Urea nitrogen [Mass/volume] in Serum or PlasmaOrdered By: Silvio Yu on 06-30-2022 Urea nitrogen [Mass/Vol] 20 mg/dL 7-25 [facility] WBC Auto (Bld) [#/Vol]Ordere d By: Silvio Yu on 06-30-2022 WBC (Bld) [#/Vol] 8.5 10*3/uL 4.1-10.5 [facility] Pathology Noteon 06-28-2022 Pathology Note [id number]:127 Normal [facility] Pathology Noteon 06-24-2022 Pathology Note [id number]#1.00CD:127 Normal [facility] Physician Referralon 023 Physician Referral [id number]#[id number]:127 Normal [facility] Pathology Noteon 06-23-2022 Pathology Note [id number]#[id number]:127 Normal [facility] SURGICAL PATHOLOGY REFERENCE LAB CONSULTon 06-23-2022 CASE REPORT Normal [facility] Comment on above: Order Comment: Speci men Type: SLIDEOrdering Facility: [facility] Address: [address] [place], [place] [phone] Result Comment: Surg ical Pathology Report Case: [id number] Authorizing Provider: Ritesh Calderon MD Collected: 06/23/2022 10:07 AM Ordering Location: [facility] Main Received: 06/23/2022 10:07 AM Pathologist: Shubham Pritchett MD, PhD Specimen: SLIDE(S), 3 SLIDES ([id number]) Performed By: #### L [id number] ####[facility] LABCLIA [id number] [place] [address] [place] CLINICAL HISTORY CONSULT REQUESTED Normal [facility] Comment on above: Order Comment: Speci men Type: SLIDEOrdering Facility: [facility] Address: [address] [place] [id number] Performed By: #### L [id number] ####[facility] LABCLIA [id number] [place] [address] [place] DIAGNOSIS COMMENT [facility] Comment on above: Order Comment: Speci men Type: SLIDEOrdering Facility: [facility] Address: [address] [place], [place] [phone] Result Comment: Many thanks for sending in consultation this excision specimen from the penis of a 57-year-old male. Histologic sections demonstrate a keratinocytic neoplasm composed of full-thickness keratinocyte dysplasia with invasive irregular islands of atypical keratinocytes. These islands demonstrate marked cellular atypia and mitotic activity. Enclosed immunohistochemical stains are reviewed at the [facility] [place]. A Ki-67 stain demonstrates an increased proliferative index amongst the lesional cells. A stain for p16 is diffusely positive in the dysplastic areas. These findings support the above diagnosis. Overall, I agree with Dr. 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 The squamous cell carcinoma involves the excision margins. Performed By: #### L [id number] ####[facility] LABCLIA [id number] [address] OF [facility] FINAL DIAGNOSIS Normal [facility] Comment on above: Order Comment: Speci men Type: SLIDEOrdering Facility: [facility] Address: [address] [place], [place] [phone] Result Comment: A. Allegra clemons, foreskin, circumcision ( [id number], 06/01/2022) : -Invasive moderately differentiated squamous cell carcinoma, see comment. AF/CK 06/23/2022 Performed By: #### L [id number] ####[facility] LABCLIA [id number] [address] OF [facility] FINAL PERFORMING LAB Normal [facility] Comment on above: Order Comment: Speci men Type: SLIDEOrdering Facility: [facility] Address: [address] [place], [place] [phone] Result Comment: Diag nostic interpretation performed at [facility] [place], [address] [place] [address] CLIA# [id number] Dual Hose Cementer: Antonio Peters M.D. Performed By: #### L [id number] ####[facility] LABCLIA [id number] [address] [address] [place] Consultation Noteon 06-23-19 Consultation Note [id number]:127 Normal [facility] Screenson 06-22-2022 Screens [id number]:127 Normal [facility] Patient Educationon 06-22-19 Patient Education Urology Balanitis Balanitis is swelling and irritation (inflammation) of the head of the penis (glans penis). The condition may also cause inflammation of the skin around the glans penis (foreskin) in men who have not been circumcised. It may develop because of an infection or another medical condition. Balanitis occurs most often among men who have not had their foreskin removed (uncircumcised men). Balanitis sometimes causes scarring of the penis or foreskin, which can require surgery. Untreated balanitis can increase the risk of penile cancer. What are the causes? Common causes of this condition include: ? Poor personal hygiene, especially in uncircumcised men. Not cleaning the glans penis and foreskin well can result in buildup of bacteria, viruses, and yeast, which can lead to infection and inflammation. ? Irritation and lack of air flow due to fluid (smegma) that can build up on the glans penis. Other causes include: ? Chemical irritation from products such as soaps or shower gels (especially those that have fragrance), condoms, personal lubricants, petroleum jelly, spermicides, or fabric softeners. ? Skin conditions, such as eczema, dermatitis, and psoriasis. ? Allergies to medicines, such as tetracycline and sulfa drugs. ? Certain medical conditions, including liver cirrhosis, congestive heart failure, diabetes, and kidney disease. ? Infections, such as candidiasis, HPV (human papillomavirus), herpes simplex, gonorrhea, and syphilis. ? Severe obesity. What increases the risk? The following factors may make you more likely to develop this condition: ? Having diabetes. This is the most common risk factor. ? Having a tight foreskin that is difficult to pull back (retract) past the glans. ? Having sexual intercourse without using a condom. What are the signs or symptoms? Symptoms of this condition include: ? Discharge from under the foreskin. ? A bad smell. ? Pain or difficulty retracting the foreskin. ? Tenderness, redness, and swelling of the glans. ? A rash or sores on the glans or foreskin. ? Itchiness. ? Inability to get an erection due to pain. ? Difficulty urinating. ? Scarring of the penis or foreskin, in some cases. How is this diagnosed? This condition may be diagnosed based on: ? A physical exam. ? Testing a swab of discharge to check for bacterial or fungal infection. ? Blood tests: ? To check for viruses that can cause balanitis. ? To check your blood sugar (glucose) level. High blood glucose could be a sign of diabetes, which can cause balanitis. How is this treated? Treatment for balanitis depends on the cause. Treatment may include: ? Improving personal hygiene. Your health care provider may recommend sitting in a bath of warm water that is deep enough to cover your hips and buttocks (sitz bath). ? Medicines such as: ? Creams or ointments to reduce swelling (steroids) or to treat an infection. ? Antibiotic medicine. ? Antifungal medicine. ? Surgery to remove or cut the foreskin (circumcision). This may be done if you have scarring on the foreskin that makes it difficult to retract. ? Controlling other medical problems that may be causing your condition or making it worse. Follow these instructions at home: ? Do not have sex until the condition clears up, or until your health care provider approves. ? Keep your penis clean and dry. Take sitz baths as recommended by your health care provider. ? Avoid products that irritate your skin or make symptoms worse, such as soaps and shower gels that have fragrance. ? Take [id number] and prescription medicines only as told by your health care provider. ? If you were prescribed an antibiotic medicine or a cream or ointment, use it as told by your health care provider. Do not stop using your medicine, cream, or ointment even if you start to feel better. ? Do not drive or use heavy machinery while taking prescription pain medicine. Contact a health care provider if: ? Your symptoms get worse or do not improve with home care. ? You develop chills or a fever. ? You have trouble urinating. ? You cannot retract your foreskin. Get help right away if: ? You develop severe pain. ? You are unable to urinate. Summary ? Balanitis is inflammation of the head of the penis (glans penis) caused by irritation or infection. ? Balanitis causes pain, redness, and swelling of the glans penis. ? This condition is most common among uncircumcised men who do not keep their glans penis clean and in men who have diabetes. ? Treatment may include creams or ointments. ? Good hygiene is important for prevention. This includes pulling back the foreskin when washing your penis. This information is not intended to replace advice given to you by your health care provider. Make sure you discuss any questions you have with your health care provider. Document Released: 07/10/2009 Document Revised: 02/03/2018 (more content not included)... Normal [facility] Urology Office/Clinic Noteon 06-21-2022 Urology Office/Clinic Note Chief Complaint Pt is here for PO circumcision HPI Staff Juan is a 57 y.o. male here for PO circumcision. Previous Dx: balanoposthitis, phimosis. S/P circumcision done on 05/31/22. Pathology showed moderately differentiated squamous cell carcinomas at least superficially invasive. Dysuria: denies Incomplete bladder emptying: denies Hematuria: denies Frequency: denies Urgency: denies Nocturia: 1x a night on occasion Stream: steady stream Leaking: denies Post void dripping: denies Wearing pads/ Depends: denies Urge incontinence: denies Stress incontinence: denies Incontinence without Sensory Awareness: denies Abdominal pain: denies Flank pain: denies Sexual complaints: _ History of Present Illness I have reviewed and verified the staff HPI to be accurate for this encounter. Review of Systems PHQ Score Initial Depression Screen Score: 0 ROS - Provider Constitutional: denies weight loss, denies hot flashes. Eyes: denies eye problems. Gastrointestinal: denies nausea, denies vomiting. Cardiovascular: denies chest pain or angina. Integumentary: no dryness Musculoskeletal: denies musculoskeletal symptoms. ENMT: denies otolaryngeal symptoms. Respiratory: no shortness of breath. Heme/Lymph: denies easy bleeding tendency, denies easy bruising tendency. Psychiatric: no confusion, no anxiety. Genitourinary: denies dysuria, denies hematuria, denies discharge, denies urinary frequency, denies urinary hesitancy, denies nocturia, denies incontinence, denies genital sores, denies decreased libido, and denies erectile dysfunction. Physical Exam Vitals & Measurements HT: 73 in HT: 186 cm WT: 165 kg WT: 363 lb BMI: 47.69 General Appearance: alert, no distress, well nourished, well developed male. Genitourinary: normal scrotum, normal testes, normal urethra, normal epididymis, normal vas deferens/spermatic cord. Healing penile anastomosis. Chromic sutures still intact. Assessment/Plan 1. Phimosis (N47.1: Phimosis) S/P circumcision done on 05/31/22. Pathology showed moderately differentiated squamous cell carcinomas at least superficially invasive. This was certainly not an expected diagnosis. Upon today's exam pt appears to be healing well. Pt was treated last OV for a yeast infection. 2. Hypogonadism male (E29.1: Testicular hypofunction) Pt was on testosterone via his PCP but was taken off due to Elevated Blood pressure. PCP checks pt's PSA 3. Cancer of skin of penis (C60.9: Malignant neoplasm of penis, unspecified) S/P circumcision done on 05/31/22. 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 Will consult with from medical oncology No obvious palpable lymphadenopathy the patient has not been noticing any groin masses. He agrees with opinion from Dr. Vega concerning this new diagnosis. Decision whether or not to proceed with any imaging studies will be left up to Dr. García. (? CT or PET, etc) , and consideration for other therapies. Follow-up With When Contact Information RHONDA PROCTOR, Timmy Howard, URL In 2 months 08/21/2022 EDT [address] [place] [phone] Additional Instructions: Patient Education Ramona Christiansen , personally scribed for Dr. Santana on 06/21/2022 09:11:31. . Problem List/Past Medical History Ongoing Balanoposthitis Cancer of skin of penis Cholelithiasis Diabetes Diabetes mellitus Hyperlipidemia Hypertension Hypogonadism male Obesity Penile carcinoma Phimosis Historical No qualifying data Procedure/Surgical History Circumcision (05/31/2022), History of tonsillectomy (1969). Medications ergocalciferol 50,000 intl units Cap glimepiride 4 mg Tab hydrochlorothiazide-lisino pril 25 mg-20 mg Tab metformin 1000 mg Tab, 1000 mg= 1 tab(s) metoprolol succinate ER 50 mg tablet,extended release 24 hr, 0 pioglitazone 45 mg Tab Allergies No Known Medication Allergies Social History Tobacco Never (less than 100 in lifetime) Tobacco Use:. Never Smokeless Tobacco Use:., 05/10/2022 Family History Diabetes: Mother. Kidney stone: Father. Stroke: Grandparent. Immunizations Vaccine Date Status Comments SARS-CoV-2 (COVID-19) mRNA-1273 vaccine 02/24/2021 Recorded SARS-CoV-2 (COVID-19) mRNA-1273 vaccine 07/03/2020 Recorded 2022-05-10: TPV50 SARS-CoV-2 (COVID-19) mRNA-1273 vaccine 06/05/2020 Recorded 2022-05-10: TPV50 influenza virus vaccine, inactivated 12/06/2016 Recorded Normal [facility] Comment on above: Result Comment: Elec tronically Signed By: RHONDA PROCTOR, Timmy Howard\.br\Date and Time Signed: 06/21/22 09:30 EDT\.br\Electronically Co-Signed By: Ramona Yost MA\.br\Date and Time Co-Signed: 06/21/22 09:11 EDT Pathology Noteon 06-16-2022 Pathology Note [id number]#1.00CD:127 Normal [facility] Operative Reporton Operative Report [id number]#1.00CD:127 Normal [facility] Consultation Noteon 06-01-19 Consultation Note [id number]#1.00CD:[address] [facility] Consultation Note [id number]#1.00CD:[address] [facility] Glucose Glucometer (BldC) [M ass/Vol]Ordered By: Timmy Santana on 05-31-2022 Glucose [Mass/Vol] 176 mg/dL [facility] Comment on above: Random Glucose Refer ence Range is dependent on time and content of last meal. Glucose of more than 200 mg/dL in a nonstressed, ambulatory subject supports the diagnosis of Diabetes Mellitus. Lab Reportson 05-31-2022 Lab Reports [id number]#1.00CD:[address] [facility] RAD - MISCon 05-26-2022 RAD - MISC [id number]#1.00CD:[address] [facility] Office Visit (Cardiology)on 05-20-2022 Follow-up visit Diagnoses/Problems Assessed Hyperlipidemia (272.4) (E78.5) Hypertension (401.9) (I10) Diabetes (250.00) (E11.9) Right bundle branch block (RBBB) on electrocardiogram (ECG) (426.4) (I45.10) Preoperative cardiovascular examination (V72.81) (Z01.810) Morbid obesity with BMI of 45.0-49.9, adult (278.01,V85.42) (E66.01,Z68.42) Former smoker (V15.82) (Z87.891) quit 29+ years ago Orders Hypertension, Preoperative cardiovascular examination, Right bundle branch block (RBBB) on electrocardiogram (ECG) IO EKG Electrocardiogram- 12 Lead; Status:Complete; Done: 20May2022 Morbid obesity with BMI of 45.0-49.9, adult Healthy Weight Tips; Status:Complete - Retrospective Authorization; Done: 20May2022 Some eating tips that can help you lose weight.; Status:Complete - Retrospective Authorization; Done: 20May2022 SocHx: Former smoker Tobacco Use Screening; Status:Complete; Done: 20May2022 Patient Instructions Please bring all medicines, vitamins, and herbal supplements with you when you come to the office. Prescriptions will not be filled unless you are compliant with your follow up appointments or have a follow up appointment scheduled as per instruction of your physician. Refills should be requested at the time of your visit. Patient is clear for surgical procedure per Dr. Ritesh Ordonez, DO Follow-up as needed only Chief Complaint JUAN BEAN is being seen for a cardiovascular evaluation of pre-operative clearance and Dr. Santana Circumcision. 57-year-old gentleman seen in cardiology consultation at the request of anesthesia and Dr. Santana of urology for preoperative risk assessment prior to circumcision. Surgery itself is a low risk procedure. The patient has comorbidities inclusive for diabetes, hypertension and obesity. There is no prior history of myocardial infarction, revascularization, stroke, thromboembolic or bleeding disorder. He is a reformed smoker quit over 27 years ago. Baseline ECG reveals sinus rhythm with right bundle branch block (not necessarily pathologic). 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 Medications are reviewed and are appropriate for his comorbidities, he is slightly tachycardic and hypertensive today likely due to underlying anxiety in the office. His overall revised Mariusz criteria for presurgical assessment for major adverse cardiac events is low at 0.6%. He can proceed without any further cardiovascular testing or imaging. We will follow-up on a as needed basis Surgical History Problems Denied: History of Complete colonoscopy Current Meds Medication NameInstruction amLODIPine Besylate 5 MG Oral TabletTAKE 1 TABLET BY MOUTH EVERY DAY Fish Oil 1000 MG Oral CapsuleTAKE 1 CAPSULE Daily Glimepiride 4 MG Oral TabletTAKE 1 TABLET DAILY DIRECTED. Latanoprost 0.005 % Ophthalmic SolutionINSTILL 1 DROP INTO AFFECTED EYE(S) ONCE DAILY DIRECTED. Lisinopril 20 MG Oral TabletTAKE 1 TABLET DAILY DIRECTED. Lisinopril-hydroCHLOROthia zide 20-25 MG Oral TabletTAKE 1 TABLET DAILY. Meloxicam 15 MG Oral TabletTAKE 1 TABLET DAILY WITH FOOD. metFORMIN HCl ER (MOD) 1000 MG Oral Tablet Extended Release 24 HourTake 1 tablet twice daily Metoprolol Succinate ER 50 MG Oral Tablet Extended Release 24 HourTake 1 tablet daily Pioglitazone HCl - 45 MG Oral TabletTAKE 1 TABLET ONCE DAILY. Simvastatin 40 MG Oral TabletTAKE 1 TABLET AT BEDTIME. tiZANidine HCl - 4 MG Oral CapsuleTAKE 1 CAPSULE Bedtime as needed Vitamin D3 1.25 MG (38798 UT) Oral Capsuleone tablet weekly Allergies Medication No Known Drug Allergies Recorded By: Simi Santa; 05/20/2022 11:13:02 AM Family History Mother Family history of amyotrophic lateral sclerosis (V17.2) (Z82.0) Family history of cardiovascular disease (V17.49) (Z82.49) Family history of diabetes mellitus (V18.0) (Z83.3) Father Family history of diabetes mellitus (V18.0) (Z83.3) Sister Family history of malignant neoplasm (V16.9) (Z80.9) Brother Family history of diabetes mellitus (V18.0) (Z83.3) Social History Problems Caffeine use (V49.89) (Z78.9) tea all day, occasionally coffee Former smoker (V15.82) (Z87.891) quit 29+ years ago No illicit drug use Occasional alcohol use couple shots 1- 2 per week Review of Systems Constitutional: not feeling tired. Cardiovascular: no intermittent leg claudication and as noted in HPI. Respiratory: no cough and no shortness of breath. Gastrointestinal: no change in bowel habits and no blood in stools. Integumentary: no skin rashes. Neurological: no seizures and no frequent falls. All other systems have been reviewed and are negative for complaint. Vitals Vital Signs Recorded: 20May2022 11:13AMRecorded: 20May2022 11:12AM [id number], LUE, [id number], RUE, Sitting [id number], LUE, [id number], RUE, Sitting Heart Ra (more content not included)... Normal [facility] Tobacco Screening.on 023 Adult depression screening assessment No [facility] [employer] DO Work Phone: Fall risk assessment c) Not medically indicated [facility] [employer] DO Work Phone: Tobacco use status CP b) No [facility] [employer] DO Work Phone: Activated partial thrombopla stin time (aPTT) in platelet poor plasma by coagulation aOrdered By: Timmy Santana on 05-17-2022 aPTT Coag (PPP) [Time] 31.0 s 25.1-36.5 [facility] Basophils Auto (Bld) [#/Vol] Ordered By: Timmy Santana on 05-17-2022 Basophils (Bld) [#/Vol] 0.0 10*3/uL 0.0-0.2 [facility] Basophils/100 WBC Auto (Bld) Ordered By: Timmy Santana on 05-17-2022 Basophils/100 WBC (Bld) 0.6 % . [facility] Calcium [Mass/volume] in Ser um or PlasmaOrdered By: Timmy Santana on 05-17-2022 Calcium [Mass/Vol] 9.5 mg/dL 8.6-10.3 [facility] Carbon dioxide, total [Moles /volume] in Serum or PlasmaOrdered By: Timmy Santana on 05-17-2022 CO2 [Moles/Vol] 27.9 mmol/L 21.0-31.0 [facility] Chloride [Moles/volume] in S radha or PlasmaOrdered By: Timmy Santana on 05-17-2022 Chloride [Moles/Vol] 98 mmol/L 98-107 [facility] Creatinine [Mass/volume] in Serum or PlasmaOrdered By: Timmy Santana on 05-17-2022 Creatinine [Mass/Vol] 0.75 mg/dL 0.70-1.30 [facility] Eosinophils Auto (Bld) [#/Vo l]Ordered By: Timmy Santana on 05-17-2022 Eosinophils (Bld) [#/Vol] 0.1 10*3/uL 0.0-0.45 [facility] Eosinophils/100 WBC Auto (Bl d)Ordered By: Timmy Santana on 05-17-2022 Eosinophils/100 WBC (Bld) 1.2 % . [facility] Erythrocyte distribution wid th Auto (RBC) [Ratio]Ordered By: Timmy Santana on 05-17-2022 Erythrocyte distribution width (RBC) [Ratio] 13.8 % 12.0-14.8 [facility] Glucose [Mass/volume] in Ser um or PlasmaOrdered By: Timmy Santana on 05-17-2022 Glucose [Mass/Vol] 172 mg/dL 74-109 [facility] Comment on above: ADA recommended refe rence rangeRandom Glucose Reference Range is dependent on time and content of last meal. Glucose of more than 200 mg/dL in a nonstressed, ambulatory subject supports the diagnosis of Diabetes Mellitus. Hematocrit Auto (Bld) [Volum e fraction]Ordered By: Timmy Santana on 05-17-2022 Hematocrit (Bld) [Volume fraction] 39.5 % 38.8-50.0 [facility] Hemoglobin [Mass/volume] in BloodOrdered By: Timmy Santana on 05-17-2022 Hemoglobin (Bld) [Mass/Vol] 13.7 g/dL 13.0-17.0 [facility] Laboratory - Chemistry and C hemistry - challengeOrdered By: Timmy Santana on 05-17-2022 GFR/1.73 sq M.predicted MDRD (S/P/Bld) [Vol rate/Area] mL/min/{1.73_m2} [facility] Laboratory - CoagulationOrde red By: Timmy Santana on 05-17-2022 PT Coag (PPP) [Time] 11.9 s 9.0-12.9 [facility] Leukocytes [#/volume] correc mariah for nucleated erythrocytes in Blood by Automated counOrdered By: Timmy Santana on 05-17-2022 WBC corrected for nucl RBC Auto (Bld) [#/Vol] 7.9 10*3/uL 4.1-10.5 [facility] Lymphocytes Auto (Bld) [#/Vo l]Ordered By: Timmy Santana on 05-17-2022 Lymphocytes (Bld) [#/Vol] 1.1 10*3/uL 1.00-4.8 [facility] Lymphocytes/100 WBC Auto (Bl d)Ordered By: Timmy Santana on 05-17-2022 Lymphocytes/100 WBC (Bld) 14.3 % . [facility] MCH Auto (RBC) [Entitic mass ]Ordered By: Timmy Santana on 05-17-2022 MCH (RBC) [Entitic mass] 30.8 pg 27.5-35.2 [facility] MCHC Auto (RBC) [Mass/Vol]Or dered By: Timmy Santana on 05-17-2022 MCHC (RBC) [Mass/Vol] 34.5 g/dL 32.5-35.6 [facility] MCV Auto (RBC) [Entitic vol] Ordered By: Timmy Santana on 05-17-2022 MCV (RBC) [Entitic vol] 89.2 fL 83.5-101 [facility] Monocytes Auto (Bld) [#/Vol] Ordered By: Timmy Santana on 05-17-2022 Monocytes (Bld) [#/Vol] 0.6 10*3/uL 0.0-0.8 [facility] Monocytes/100 WBC Auto (Bld) Ordered By: Timmy Santana on 05-17-2022 Monocytes/100 WBC (Bld) 7.5 % . [facility] Neutrophils Auto (Bld) [#/Vo l]Ordered By: Timmy Santana on 05-17-2022 Neutrophils (Bld) [#/Vol] 6.1 10*3/uL 1.8-7.7 [facility] Neutrophils/100 WBC Auto (Bl d)Ordered By: Timmy Santana on 05-17-2022 Neutrophils/100 WBC (Bld) 76.4 % . [facility] No Panel InformationOrdered By: Timmy Santana on 05-17-2022 Pharmacy Creatinine Clearance (Chem N/A [facility] Nucleated erythrocytes [Pres ence] in Blood by Automated countOrdered By: Timmy Santana on 05-17-2022 Nucleated RBC Auto Ql (Bld) 0.0 /100{WBC} 0-0.5 [facility] Platelet mean volume Auto (B ld) [Entitic vol]Ordered By: Timmy Santana on 05-17-2022 Platelet mean volume (Bld) [Entitic vol] 8.2 fL 6.6-10.1 [facility] Platelet poor plasma interna tional normalized ratio (INR) by coagulation assay (relatOrdered By: Timmy Santana on 05-17-2022 INR Coag (PPP) [Relative time] 1.0 {INR} [facility] Comment on above: INR Therapeutic Rang e A) Pre- and Peroperative OAT started two weeks before surgery. NOT HIP SURGERY: 1.5 - 2.5 HIP SURGERY: 2 - 3B) Primary and secondary prevention of venous THROMBOSIS: 2 - 3C) Active venous thrombosis, pulmonary embolismand prevention of recurrent venous thrombosis: 2 - 3D) Prevention of arterial thromboembolismincluding patients with mechanical heart valves: 3 - 4.5 Platelets Auto (Bld) [#/Vol] Ordered By: Timmy Santana on 05-17-2022 Platelets (Bld) [#/Vol] 174 10*3/uL 150-450 [facility] Potassium [Moles/volume] in Serum or PlasmaOrdered By: Timmy Santana on 05-17-2022 Potassium [Moles/Vol] 3.9 mmol/L 3.5-5.1 [facility] RBC Auto (Bld) [#/Vol]Ordere d By: Timmy Santana on 05-17-2022 RBC (Bld) [#/Vol] 4.43 10*6/uL 3.90-5.60 [facility] Serum or plasma anion gap de terminationOrdered By: Timmy Santana on 05-17-2022 Anion gap [Moles/Vol] 13.0 mmol/L 6.0-15.0 [facility] Sodium [Moles/volume] in Ser um or PlasmaOrdered By: Timmy Santana on 05-17-2022 Sodium [Moles/Vol] 135 mmol/L 136-145 [facility] Urea nitrogen [Mass/volume] in Serum or PlasmaOrdered By: Timmy Santana on 05-17-2022 Urea nitrogen [Mass/Vol] 16 mg/dL 7-25 [facility] WBC Auto (Bld) [#/Vol]Ordere d By: Timmy Santana on 05-17-2022 WBC (Bld) [#/Vol] 7.9 10*3/uL 4.1-10.5 [facility] [employer] 05-12-2022 Forms [id number]:127 Normal [facility] Physician Referralon 023 Physician Referral [id number]:127 Normal [facility] Screenson 05-12-2022 Screens [id number]:127 Normal [facility] Ambulatory Visit Summaryon 0 05-10-2022 Ambulatory Visit Summary JUAN BEAN :1965 Visit Date:05/10/2022 Ambulatory Visit Instructions Your Diagnosis Phimosis Balanoposthitis Hypogonadism male Tests Performed Urnls Dip Stick Auto w/o Microscopy POC 70922 Your Care Team Attending Physician - RHONDA PROCTOR, Timmy Howard Primary Care Physician - YUE PROCTOR, MANISH Coffman Referring Physician - DIVYA THORNTON This Is Your Medications List Contact prescribing physician if questions or concerns Misc Prescription (metoprolol succinate ER 50 mg tablet,extended release 24 hr) ergocalciferol (ergocalciferol 50,000 intl units Cap) glimepiride (glimepiride 4 mg Tab) hydrochlorothiazide-lisino pril (hydrochlorothiazide-lisin opril 25 mg-20 mg Tab) metformin (metformin 1000 mg Tab) pioglitazone (pioglitazone 45 mg Tab) Procedures Performed History of tonsillectomy (1969). Discharge Vitals Heart Rate (Peripheral) 84 Respiratory Rate 70 Blood Pressure 146/85 Height 73 in Height 186 cm Weight 364.76 lb Weight 165.8 kg BMI 47.92 What to do next You Need to Schedule the Following Appointments Follow Up with RHONDA PROCTOR, ROSCOE Garcia When: Where: [address] [place], [place] [id number]- Medications What How Much When Instructions Unchanged ergocalciferol (ergocalciferol 50,000 intl units Cap) Contact prescribing physician if questions or concerns Unchanged glimepiride (glimepiride 4 mg Tab) Contact prescribing physician if questions or concerns Unchanged hydrochlorothiazide-lisino pril (hydrochlorothiazide-lisin opril 25 mg-20 mg Tab) Contact prescribing physician if questions or concerns Unchanged metformin (metformin 1000 mg Tab) 1 Tablets Contact prescribing physician if questions or concerns Unchanged Misc Prescription (metoprolol succinate ER 50 mg tablet,extended release 24 hr) 0 Contact prescribing physician if questions or concerns Unchanged pioglitazone (pioglitazone 45 mg Tab) Contact prescribing physician if questions or concerns Test Results Urnls Dip Stick Auto w/o Microscopy POC 28436 (05/10/2022) Bilirubin Urine Dipstick - Negative Blood Urine Dipstick - Trace-intact Glucose Urine Dipstick - Negative Ketones Urine Dipstick - Negative Leukocytes Urine Dipstick - Negative Nitrite Urine Dipstick - Negative Protein Urine Dipstick - Negative Specific [place] Urine Dipstick - 1.025 Urine Appearance Urine Dipstick - Clear Urine Color Urine Dipstick - Yellow Urobilinogen Urine Dipstick - Normal 0.2-1 EU/dl pH Urine Dipstick - 6 Allergies No Known Medication Allergies Problems Ongoing - Any problem that you are currently receiving treatment for. Balanoposthitis Cholelithiasis Diabetes Diabetes mellitus Hyperlipidemia Hypertension Obesity Phimosis [employer] Balanitis Balanitis is swelling and irritation (inflammation) of the head of the penis (glans penis). The condition may also cause inflammation of the skin around the glans penis (foreskin) in men who have not been circumcised. It may develop because of an infection or another medical condition. Balanitis occurs most often among men who have not had their foreskin removed (uncircumcised men). Balanitis sometimes causes scarring of the penis or foreskin, which can require surgery. Untreated balanitis can increase the risk of penile cancer. What are the causes? Common causes of this condition include: ? Poor personal hygiene, especially in uncircumcised men. Not cleaning the glans penis and foreskin well can result in buildup of bacteria, viruses, and yeast, which can lead to infection and inflammation. ? Irritation and lack of air flow due to fluid (smegma) that can build up on the glans penis. Other causes include: ? Chemical irritation from products such as soaps or shower gels (especially those that have fragrance), condoms, personal lubricants, petroleum jelly, spermicides, or fabric softeners. ? Skin conditions, such as eczema, dermatitis, and psoriasis. ? Allergies to medicines, such as tetracycline and sulfa drugs. ? Certain medical conditions, including liver cirrhosis, congestive heart failure, diabetes, and kidney disease. ? Infections, such as candidiasis, HPV (human papillomavirus), herpes simplex, gonorrhea, and syphilis. ? Severe obesity. What increases the risk? The following factors may make you more likely to develop this condition: ? Having diabetes. This is the most common risk factor. ? Having a tight foreskin that is difficult to pull back (retract) past the glans. ? Having sexual intercourse without using a condom. What are the signs or symptoms? Symptoms of this condition include: ? Discharge from under the foreskin. ? A bad smell. ? Pain or difficulty retracting the foreskin. ? Tenderness, redness, and swelling of the glans. ? A rash or sores on the glans or foreskin. ? Itc (more content not included)... Normal [facility] Patient Educationon 05-11-19 23 Patient Education Urology Balanitis Balanitis is swelling and irritation (inflammation) of the head of the penis (glans penis). The condition may also cause inflammation of the skin around the glans penis (foreskin) in men who have not been circumcised. It may develop because of an infection or another medical condition. Balanitis occurs most often among men who have not had their foreskin removed (uncircumcised men). Balanitis sometimes causes scarring of the penis or foreskin, which can require surgery. Untreated balanitis can increase the risk of penile cancer. What are the causes? Common causes of this condition include: ? Poor personal hygiene, especially in uncircumcised men. Not cleaning the glans penis and foreskin well can result in buildup of bacteria, viruses, and yeast, which can lead to infection and inflammation. ? Irritation and lack of air flow due to fluid (smegma) that can build up on the glans penis. Other causes include: ? Chemical irritation from products such as soaps or shower gels (especially those that have fragrance), condoms, personal lubricants, petroleum jelly, spermicides, or fabric softeners. ? Skin conditions, such as eczema, dermatitis, and psoriasis. ? Allergies to medicines, such as tetracycline and sulfa drugs. ? Certain medical conditions, including liver cirrhosis, congestive heart failure, diabetes, and kidney disease. ? Infections, such as candidiasis, HPV (human papillomavirus), herpes simplex, gonorrhea, and syphilis. ? Severe obesity. What increases the risk? The following factors may make you more likely to develop this condition: ? Having diabetes. This is the most common risk factor. ? Having a tight foreskin that is difficult to pull back (retract) past the glans. ? Having sexual intercourse without using a condom. What are the signs or symptoms? Symptoms of this condition include: ? Discharge from under the foreskin. ? A bad smell. ? Pain or difficulty retracting the foreskin. ? Tenderness, redness, and swelling of the glans. ? A rash or sores on the glans or foreskin. ? Itchiness. ? Inability to get an erection due to pain. ? Difficulty urinating. ? Scarring of the penis or foreskin, in some cases. How is this diagnosed? This condition may be diagnosed based on: ? A physical exam. ? Testing a swab of discharge to check for bacterial or fungal infection. ? Blood tests: ? To check for viruses that can cause balanitis. ? To check your blood sugar (glucose) level. High blood glucose could be a sign of diabetes, which can cause balanitis. How is this treated? Treatment for balanitis depends on the cause. Treatment may include: ? Improving personal hygiene. Your health care provider may recommend sitting in a bath of warm water that is deep enough to cover your hips and buttocks (sitz bath). ? Medicines such as: ? Creams or ointments to reduce swelling (steroids) or to treat an infection. ? Antibiotic medicine. ? Antifungal medicine. ? Surgery to remove or cut the foreskin (circumcision). This may be done if you have scarring on the foreskin that makes it difficult to retract. ? Controlling other medical problems that may be causing your condition or making it worse. Follow these instructions at home: ? Do not have sex until the condition clears up, or until your health care provider approves. ? Keep your penis clean and dry. Take sitz baths as recommended by your health care provider. ? Avoid products that irritate your skin or make symptoms worse, such as soaps and shower gels that have fragrance. ? Take bzzm-xxt-hwhwnwn and prescription medicines only as told by your health care provider. ? If you were prescribed an antibiotic medicine or a cream or ointment, use it as told by your health care provider. Do not stop using your medicine, cream, or ointment even if you start to feel better. ? Do not drive or use heavy machinery while taking prescription pain medicine. Contact a health care provider if: ? Your symptoms get worse or do not improve with home care. ? You develop chills or a fever. ? You have trouble urinating. ? You cannot retract your foreskin. Get help right away if: ? You develop severe pain. ? You are unable to urinate. Summary ? Balanitis is inflammation of the head of the penis (glans penis) caused by irritation or infection. ? Balanitis causes pain, redness, and swelling of the glans penis. ? This condition is most common among uncircumcised men who do not keep their glans penis clean and in men who have diabetes. ? Treatment may include creams or ointments. ? Good hygiene is important for prevention. This includes pulling back the foreskin when washing your penis. This information is not intended to replace advice given to you by your health care provider. Make sure you discuss any questions you have with your health care provider. Document Released: 07/10/2009 Document Revised: 02/03/2018 (more content not included)... Normal [facility] Vital Signs Date Time Vital Sign Value Performing Clinician Facility 12-28-2023 16:51-0400 Body height 185.4 cm Divya BRODERICK Work Phone: [facility] 12-28-2023 16:51-0400 Body mass index (BMI) [Ratio] 49.5 kg/m2 Divya BRODERICK Work Phone: [facility] 12-28-2023 16:51-0400 Body weight 170.19 kg Divya BRODERICK Work Phone: [facility] 12-28-2023 16:51-0400 Diastolic blood pressure 86 mm[Hg] Divya BRODERICK Work Phone: [facility] 12-28-2023 16:51-0400 Heart rate 93 /min Divya Verdin PA Work Phone: [facility] 12-28-2023 16:51-0400 Respiratory rate 16 /min Divya BRODERICK Work Phone: [facility] 12-28-2023 16:51-0400 SaO2% (BldA) [Mass fraction] 96 % Divya BRODERICK Work Phone: [facility] 12-28-2023 16:51-0400 Systolic blood pressure 142 mm[Hg] Divya Hemmer PA Work Phone: [facility] 04-20-2023 16:40-0500 Diastolic blood pressure 82 mm[Hg] Divya Hemmer PA Work Phone: [facility] 04-20-2023 16:40-0500 Systolic blood pressure 138 mm[Hg] Divya Hemmer PA Work Phone: [facility] 04-20-2023 16:28-0500 Body mass index (BMI) [Ratio] 46.39 kg/m2 Divya Hemmer PA Work Phone: [facility] 04-20-2023 16:28-0500 Body weight 159.49 kg Divya Hemmer PA Work Phone: [facility] 04-20-2023 16:28-0500 Heart rate 91 /min Divya Hemmer PA Work Phone: [facility] 04-20-2023 16:28-0500 Respiratory rate 18 /min Divya Hemmer PA Work Phone: [facility] 04-20-2023 16:28-0500 SaO2% (BldA) [Mass fraction] 97 % Divya Hemmer PA Work Phone: [facility] 02-02-2023 13:45-0500 Body height 185.42 cm Osiel Lewis Other [employer] Other 02-02-2023 13:45-0500 Diastolic blood pressure 70 mm[Hg] Osiel Lewis Other [employer] Other 02-02-2023 13:45-0500 SaO2% (BldA) [Mass fraction] 97 % Osiel Lewis Other [employer] Other 02-02-2023 13:45-0500 Systolic blood pressure 120 mm[Hg] Osiel Lewis Other [employer] Other 12-30-2022 16:00-0400 Body height 185.42 cm Osiel Lewis Other [employer] Other 12-30-2022 16:00-0400 Body mass index (BMI) [Ratio] 48.02 kg/m2 Osiel Lewis Other [employer] Other 12-30-2022 16:00-0400 Body weight 165.11 kg Osiel Lewis Other [employer] Other 12-30-2022 16:00-0400 Diastolic blood pressure 82 mm[Hg] Osiel Lewis Other [employer] Other 12-30-2022 16:00-0400 SaO2% (BldA) [Mass fraction] 96 % Osile Lewis Other [employer] Other 12-30-2022 16:00-0400 Systolic blood pressure 138 mm[Hg] Osiel Lewis Other [employer] Other 12-01-2022 11:06-0400 Diastolic blood pressure 82 mm[Hg] PA-C Divya Hemmer Work Phone: [facility] 12-01-2022 11:06-0400 Heart rate 77 /min PA-C Divya Hemmer Work Phone: [facility] 12-01-2022 11:06-0400 Respiratory rate 19 /min PA-C Divya Hemmer Work Phone: [facility] 12-01-2022 11:06-0400 SaO2% (BldA) [Mass fraction] 97 % PA-C Divya Hemmer Work Phone: [facility] 12-01-2022 11:06-0400 Systolic blood pressure 158 mm[Hg] PA-C Divya Hemmer Work Phone: [facility] 12-01-2022 09:24-0400 Body temperature 98.6 [degF] PA-C Divya Hemmer Work Phone: [facility] 12-01-2022 09:23-0400 Body height 185.42 cm PA-C Divya Hemmer Work Phone: [facility] 12-01-2022 09:23-0400 Body weight 162.8 kg PA-C Divya Hemmer Work Phone: [facility] 07-13-2022 09:07-0400 Body temperature 98.2 [degF] PA-C Divya Hemmer Work Phone: [facility] 07-13-2022 09:07-0400 Body weight 169.68 kg PA-C Divya Hemmer Work Phone: [facility] 07-13-2022 09:07-0400 Diastolic blood pressure 89 mm[Hg] PA-C Divya Hemmer Work Phone: [facility] 07-13-2022 09:07-0400 Heart rate 80 /min PA-C Divya Hemmer Work Phone: [facility] 07-13-2022 09:07-0400 Respiratory rate 20 /min PA-C Divya Hemmer Work Phone: [facility] 07-13-2022 09:07-0400 SaO2% (BldA) [Mass fraction] 97 % PA-C Divya Hemmer Work Phone: [facility] 07-13-2022 09:07-0400 Systolic blood pressure 158 mm[Hg] PA-C Divya Hemmer Work Phone: [facility] 07-12-2022 08:52-0400 Body height 185.4 cm Víctor Rosales MD Work Phone: [facility] 07-12-2022 08:52-0400 Body weight 161.48 kg Víctor Rosales MD Work Phone: [facility] 07-12-2022 08:52-0400 Diastolic blood pressure 81 mm[Hg] Víctor Rosales MD Work Phone: [facility] 07-12-2022 08:52-0400 Heart rate 92 /min Víctor Rosales MD Work Phone: [facility] 07-12-2022 08:52-0400 Systolic blood pressure 162 mm[Hg] Víctor Rosales MD Work Phone: [facility] 06-22-2022 08:01-0400 Body height 185.42 cm PA-C Divya Hemmer Work Phone: [facility] 05-31-2022 17:55-0400 Diastolic blood pressure 77 mm[Hg] PA-C Divya Hemmer Work Phone: [facility] 05-31-2022 17:55-0400 Heart rate 92 /min PA-C Divya Hemmer Work Phone: [facility] 05-31-2022 17:55-0400 Respiratory rate 16 /min PA-C Divya Hemmer Work Phone: [facility] 05-31-2022 17:55-0400 SaO2% (BldA) [Mass fraction] 94 % PA-C Divya Hemmer Work Phone: [facility] 05-31-2022 17:55-0400 Systolic blood pressure 131 mm[Hg] PA-C Divya Hemmer Work Phone: [facility] 05-31-2022 17:25-0400 Inhaled oxygen flow rate 1 L/min PA-C Divya Hemmer Work Phone: [facility] 05-31-2022 16:26-0400 Body temperature 97.4 [degF] PA-C Divya Hemmer Work Phone: [facility] 05-31-2022 15:31-0400 Body height 185.42 cm PA-C Divya Conwaymer Work Phone: [facility] 05-31-2022 15:31-0400 Body mass index (BMI) [Ratio] 48.2 kg/m2 PA-C Divya Hemmer Work Phone: [facility] 05-31-2022 15:31-0400 Body weight 166 kg PA-C Divya Hemmer Work Phone: [facility] 05-20-2022 11:13-0400 Diastolic blood pressure 94 mm[Hg] Divya Verdin -[facility] DO Work Phone: 05-20-2022 11:13-0400 Systolic blood pressure 152 mm[Hg] Divya Verdin [facility] DO Work Phone: 05-20-2022 11:12-0400 Body height 185.42 cm Divya Verdin [facility] 250 DO Work Phone: 05-20-2022 11:12-0400 Body mass index (BMI) [Ratio] 47.36 kg/m2 Divya Verdin [facility] DO Work Phone: 05-20-2022 11:12-0400 Body surface area Derived from formula 2.76 m2 Divya Verdin [facility] DO Work Phone: 05-20-2022 11:12-0400 Body weight 162.84 kg Divya Verdin -[facility] DO Work Phone: 05-20-2022 11:12-0400 Diastolic blood pressure 90 mm[Hg] Divya Verdin -[facility] DO Work Phone: 05-20-2022 11:12-0400 Heart rate 90 /min Divya Verdin MP-[facility] 250 DO Work Phone: 05-20-2022 11:12-0400 Systolic blood pressure 154 mm[Hg] Divya Verdin MP-[facility] 250 DO Work Phone: 05-10-2022 10:54-0500 Diastolic blood pressure 85 mm[Hg] [facility] 05-10-2022 10:54-0500 Mean blood pressure 105 mm[Hg] [facility] 05-10-2022 10:54-0500 Respiratory rate 70 /min [facility] 05-10-2022 10:54-0500 Systolic blood pressure 146 mm[Hg] [facility] 05-10-2022 10:37-0500 Blood Pressure Location [facility] 05-10-2022 10:37-0500 Diastolic blood pressure 90 mm[Hg] [facility] 05-10-2022 10:37-0500 Heart rate 84 /min [facility] 05-10-2022 10:37-0500 Systolic blood pressure 150 mm[Hg] [facility] Encounters Encounter Date Encounter Type Care Provider Facility Start: 12-28-2023 End: 12-28-2023 Office outpatient visit 25 minutes Divya Verdin PA Work Phone: [facility] Comment on above: Type 2 diabetes yareli itus with other specified complication, without long-term current use of insulin ([facility]) (Primary Dx); Primary hypertension (CMS/HCC); Morbid obesity (CMS/HCC) Start: 12-28-2023 End: 12-28-2023 ambulatory DIVYA VERDIN Not Available Start: 12-28-2023 End: 12-28-2023 Bamboo flowsheet Divya Verdin PA Work Phone: [facility] Start: 12-28-2023 End: 12-28-2023 Bamboo flowsheet Divya Conwaymer PA Work Phone: [facility] Start: 12-27-2023 End: 12-27-2023 Refill Manish Rodriguez MD Work Phone: [facility] Comment on above: Morbid obesity (CMS/ HCC) Start: 11-23-2023 End: 11-23-2023 Refill Divya Verdin PA Work Phone: [facility] Comment on above: Morbid obesity (CMS/ HCC) Start: 11-21-2023 End: 11-21-2023 Refill Manish Rodriguez MD Work Phone: [facility] Comment on above: Morbid obesity (CMS/ HCC) Start: 10-24-2023 End: 10-25-2023 Refill Divya Verdin PA Work Phone: [facility] Comment on above: Morbid obesity (CMS/ HCC) Start: 08-24-2023 End: 08-24-2023 ambulatory DIVYA VERDIN Not Available Start: 04-20-2023 End: 04-20-2023 Office outpatient visit 15 minutes Divya Verdin PA Work Phone: [facility] Comment on above: Primary hypertension (CMS/HCC) (Primary Dx); Morbid obesity (CMS/HCC) Start: 04-20-2023 End: 04-20-2023 ambulatory DIVYA VERDIN Not Available Start: 04-20-2023 Bamboo flowsheet Divya Andrews Hemme r PA Work Phone: [facility] Start: 04-20-2023 Bamboo flowsheet Divya Andrews Hemme r PA Work Phone: [facility] Start: 03-16-2023 End: 03-16-2023 ambulatory DIVYA VERDIN Not Available Start: 02-02-2023 End: 02-02-2023 ambulatory DIVYA VERDIN [facility] Other Start: 02-02-2023 Office outpatient vi sit 15 minutes Osiel Joshua [facility] Start: 01-28-2023 End: 01-28-2023 ambulatory Divya Hemmer Facility:[facility] Start: 12-30-2022 End: 12-30-2022 ambulatory Osielsilvano Lewis Other [facility] Other Start: 12-30-2022 Office consultation new/estab patient 60 min Osiel Joshua [facility] Start: 12-01-2022 End: 12-01-2022 Emergency department patient visit PA-Falguni Verdin Work Phone: [facility]Emergency [facility] Work Phone: Start: 11-09-2022 End: 11-10-2022 ambulatory DIVYA HEMMER Facility:[facility] Start: 08-19-2022 Telephone encounter Víctor Rosales MD Work Phone: Urology Comment on above: Results Start: 08-13-2022 End: 08-13-2022 ambulatory DANIEL LEONARD Facility:[facility] Start: 08-09-2022 End: 08-10-2022 ambulatory Timmy SANATNA Facility:[facility] Start: 08-09-2022 End: 08-09-2022 Patient encounter procedure Timmy SANTANA [facility] Start: 07-13-2022 End: 07-13-2022 ambulatory PA-C Divyabritney Conwayjef Work Phone: [facility] Work Phone: Start: 07-13-2022 End: 07-13-2022 Registered Recurring PA-C Divya Hemmer Work Phone: [facility]Cancer Center Work Phone: Start: 07-12-2022 End: 07-13-2022 ambulatory Víctor Rosales MD Work Phone: Urology Start: 07-12-2022 End: 07-12-2022 Patient encounter procedure Víctor Rosales MD Work Phone: Urology Comment on above: Penile cancer (HCC) (Primary Dx); Hidden penis; Morbid obesity with BMI of 45.0-49.9, adult (HCC) Start: 06-21-2022 End: 06-22-2022 ambulatory Timmy SANTANA Facility: [facility] Start: 05-31-2022 End: 06-01-2022 ambulatory Timmy SANTANA Facility:[id number] Start: 05-31-2022 End: 05-31-2022 Admission to same day surgery center MIKEY Verdin Work Phone: [facility] [place] Start: 05-20-2022 Office consultation new/estab patient 60 min Divya Verdin -[facility] 250 DO Work Phone: Start: 05-20-2022 ambulatory Ritesh Ordonez Ariadne y: Start: 05-17-2022 End: 05-17-2022 ambulatory MIKEY Verdin Work Phone: [facility] Work Phone: Start: 05-17-2022 End: 05-17-2022 Patient encounter procedure MIKEY Verdin Work Phone: [facility]-Pre-Surgical Testing Work Phone: Start: 05-10-2022 End: 05-11-2022 ambulatory Timmy SANTANA Facility: [facility] Start: 05-10-2022 End: 05-10-2022 Patient encounter procedure Timmy SANTANA [facility] Start: 04-08-2022 ambulatory DIVYA VERDIN Facility:[facility] Patient encounter status Divya Verdin -[facility] DO Work Phone: Procedures Date Procedure Procedure Detail Performing Clinician Start: 12-28-2023 Hemoglobin glycosyla mariah a1c Divya Verdin PA Work Phone: Start: 12-01-2022 CT of right hip PA-C Jada Verdin Work Phone: Start: 07-12-2022 Urnls dip stick/tabl et rgnt auto w/o microscopy Bulk Order Provider Start: 06-30-2022 Computed tomography of abdomen and pelvis with contrast PA-C Divya Verdin Work Phone: Start: 06-30-2022 CT of thorax with contrast PA-C Divya Verdin Work Phone: Start: 05-31-2022 Circumcision PA-C Divya Verdin Work Phone: Start: 05-31-2022 Circumcision Timmy THOMAS Start: 05-17-2022 Plain chest X-ray PA-C Divya Verdin Work Phone: Start: 03-07-1969 History of tonsillectomy Timmy SANTANA NEGATED: Highlighted row has not occurred! Total colonoscopy Divya Verdin Plan of Treatment Date Care Activity Detail Author Start: 07-10-2025 PROSTATE CANCER SCREENING DISCUSSION PROSTATE CANCER SCREENING DISCUSSION [facility] Start: 09-03-2024 Influenza vaccination Influenza Vacc ine (#1) [facility] Comment on above: Postponed from 11/05 (Patient Refused) Start: 08-23-2024 Screening for malign ant neoplasm of colon Colorectal Cancer Screening [facility] Comment on above: Postponed from 01/16 (Patient Refused) Start: 04-04-2024 End: 04-04-2024 Patient encounter procedure 04/04/2024 5:00 PM EST Office Visit [facility] [address] [place] [address] Divya Verdin, PA [address] [place] [address] [facility] Start: 03-29-2024 Hemoglobin A1c measurement Diabetes: Hemoglobin A1C [facility] Start: 02-05-2024 Urine screening for protein Diabetes: Urine Protein Screening [facility] Start: 12-28-2023 End: 12-28-2023 Patient encounter procedure [facility] Comment on above: Arrived Start: 11-24-2023 Hemoglobin A1c measurement Diabetes: Hemoglobin A1C [facility] Start: 11-23-2023 End: 11-23-2023 Patient encounter procedure 11/23/2023 5:00 PM EDT Office Visit [facility] [address] [place] [address] Divya Verdin, PA [address] [place] [address] [facility] Start: 11-06-2023 Influenza vaccination Influenza Vacc ine (#1) [facility] Start: 08-07-2023 DIABETES SCREEN DIABETES SCREEN [facility] Start: 07-20-2023 End: 07-20-2023 Patient encounter procedure 07/20/2023 5:00 PM EDT Office Visit [facility] [address] [place] [address] Divya Verdin, PA [address] [place] [address] [facility] Start: 05-05-2023 Hemoglobin A1c measurement Diabetes: Hemoglobin A1C [facility] Start: 04-20-2023 End: 04-20-2023 Patient encounter procedure 04/20/2023 5:00 PM EST Office Visit [facility] [address] [place] [address] Divya Verdin, PA [address] [place] [address] Arrived [facility] Comment on above: Arrived Start: 11-05-2022 Influenza vaccination INFLUENZ A (Season Ended) [facility] Start: 09-18-2022 Screening for malign ant neoplasm of colon [facility] Start: 06-10-2022 Glaucoma screening Diabetes: R etinopathy Screening [facility] Start: 05-31-2022 [facility] Start: 05-31-2022 [facility] Start: 05-17-2022 Plain chest X-ray XR chest 2V* [facility] Start: 05-17-2022 XR Chest 2 Views [facility] Start: 03-07-2022 DEPRESSION ASSESSMENT DEPRESSION ASS ESSMENT [facility] Start: 04-21-2021 COVID-19 VACCINE (4 - Booster for Moderna series) COVID-19 VACCINE (4 - Booster for Moderna series) [facility] Start: 2015 SHINGRIX VACCINE (1 of 2) SHINGRIX VACCINE (1 of 2) [facility] Start: 2010 COLOGUARD (FIT-DNA) COLOGUARD (FIT-D NA) [facility] Start: 2010 Colonoscopy COLONOSCOPY [facility] Start: 2010 COLORECTAL CANCER SCREENING COLORECTAL CANCER SCREENING [facility] Start: [address] COLONOGRAPHY [facility] Start: 2010 FECAL OCCULT BLOOD FECAL OCCULT BLOO D [facility] Start: 2010 SIGMOIDOSCOPY SIGMOIDOSCOPY [facility] Start: 01-17-2000 LIPID SCREEN LIPID SCREEN [facility] Start: 01-17-1984 Urine microalbumin profile DTAP,TDAP,TD (1 - Tdap) [facility] Start: 1983 HEPATITIS C SCREENING HEPATITIS C SC [facility] Start: 1983 HIV SCREENING HIV SCREENING [facility] Start: 1965 HEPATITIS B (1 of 3 - 3-dose series) HEPATITIS B (1 of 3 - 3-dose series) [facility] Start: 1965 Screening for malign ant neoplasm of colon [facility] Patient Education Hip Pain ED [facility] Work Phone: Patient referral [facility] Work Phone: [facility] Immunizations Immunization Date Immunization Notes Care Provider Fa cility 12-21-2022 influenza, injectabl e, quadrivalent, preservative free Divya BRODERICK Work Phone: [facility] 12-21-2022 influenza virus vaccine, unspecified formulation Divya BRODERICK Work Phone: [facility] 02-24-2021 SARS-CoV-2 (COVID-19 ) mRNA-1273 vaccine Timmy SANTANA [facility] 07-03-2020 SARS-CoV-2 (COVID-19 ) mRNA-1273 vaccine Timmy [employer] [facility] Comment on above: Result Comment: 2022: [id number] 06-05-2020 SARS-CoV-2 (COVID-19 ) mRNA-1273 vaccine Timmy SANTANA [facility] Comment on above: Result Comment: 2022: [id number] 12-06-2016 influenza virus vaccine, unspecified formulation Timmy SANTANA [facility] 12-06-2016 seasonal influenza, intradermal, preservative free Divya Verdin [facility] Payers Date Payer Category Payer Self-pay 2022 Private Health Insurance [employer] [id number] 2022 Unknown 2022 Unknown [id number] 1965 Unknown [id number]. 356 1965 Unknown [id number] [id number]. 727 1965 Unknown [id number] [id number]. 727 1965 Unknown [id number] [id number]. 727 1965 Unknown [id number] [id number]. 727 1965 Unknown [id number] [id number]. 727 1965 Unknown [id number] [id number]. 1259 1965 Unknown [id number] [id number]. 1259 1965 Unknown [id number] [id number]. 1259 1965 Unknown [id number] [id number]. 1259 1965 Unknown [id number] [id number]. 1259 Unknown [id number] [id number]. 531 Unknown [id number]. 531 Social History Date Type Detail Facility Start: 05-10-2022 End: 03-16-2023 Tobacco smoking status Never smoked tobacco (finding) [facility] Tobacco smoking status Never [facility] Start: 03-16-2023 End: 08-24-2023 Sex Assigned At Male [facility] Start: 05-17-2022 End: 07-12-2022 Tobacco smoking status NHIS Ex-smoker (finding) [facility] Start: 1965 Sex Assigned At Male [facility] Start: 03-16-2023 End: 08-24-2023 Occasional alcohol use Occasional alcohol use [facility] 250 DO Work Phone: Comment on above: couple shots 1- 2 pe r week; tea all day, occasio kendra coffee; quit 29+ years ago; History of tobacco use Current smoker [facility] History of tobacco use Cigarette Smoker [facility] Start: 07-12-2022 End: 03-16-2023 Tobacco use and exposure User of smokeless tobacco [facility] Start: 1965 Sex Assigned At Not on file [facility] History of tobacco use Snuff User [facility] Start: 03-16-2023 End: 08-24-2023 Alcohol intake Current drinker of alcohol (finding) [facility] Start: 10-13-2022 Alcohol Comment Caffeine intak e: coffee, soda [facility] Medical Equipment Procedure Code Equipment Code Equipment Origin al Text Equipment Identifier Dates [id number], [id number] Start: 07-03-2013 Goals Date Patient Goal Desired Activity /State Functional Status Date Assessment Result Facility 05-10-2022 Functional Status N/A [facility] Clinical Notes 05-10-2022 to 12-28-2023 MEGGAN Lopez - 12/28/2023 5:00 PM EDTTelephone Encounter - MEGGAN Lopez - 12/27/2023 10:02 AM EDTTelephone Encounter - MEGGAN Lopez - 12/27/2023 10:02 AM EDT Note Date & Type Note Facility 12-28-2023 History of Presen t illness Narrative Images from the original note were not included. Subjective Patient ID: Juan Bean is a 58 y.o. male who presents for diabetes. Juan is present today for follow up diabetes. Denies foot ulcers. Admits hypoglycemia and tingling/numbness in extremities. Does not check BS's at home. Currently on Glimepiride, Metformin, and Pioglitazone. [facility] has a co-worker who saw him have a hypoglycemic episode and so has been buying him lunch every day, not healthy foods. Has had 3-4 episodes since his last appointment. Happens when he doesn't eat. Is starting to carry some bars with him in case he is running late. States while he was on the Adipex he did not crave sweets. Current Outpatient Medications on File Prior to Visit Medication Sig Dispense Refill amLODIPine (Norvasc) 5 MG tablet TAKE 1 TABLET BY MOUTH DAILY 100 tablet 3 Blood Glucose Monitoring Suppl (D-Tacoda Glucometer) w/Device kit 1 each Daily Test glucose once a day. ergocalciferol (Vitamin D2) 1.25 MG (49997 UT) capsule TAKE 1 CAPSULE BY MOUTH once a week 12 capsule 3 glimepiride (Amaryl) 4 MG tablet Take 1 tablet (4 mg) by mouth in the morning. glucose blood (FREESTYLE TEST STRIPS) test strip 1 each by Other route Daily Use as instructed Lancets 30G misc 1 each Daily lisinopril 20 MG tablet TAKE 1 TABLET BY MOUTH ONCE DAILY 100 tablet 3 lisinopril-hydroCHLOROthiazide 20-25 MG tablet TAKE 1 TABLET BY MOUTH ONCE DAILY 100 tablet 3 meloxicam (Mobic) 15 MG tablet TAKE 1 TABLET BY MOUTH ONCE DAILY WITH FOOD 100 tablet 3 metFORMIN (Glucophage) 1000 MG tablet Take 1 tablet (1,000 mg) by mouth in the morning and 1 tablet (1,000 mg) in the evening. Take with meals. metoprolol succinate XL (Toprol-XL) 50 MG 24 hr tablet TAKE 1 TABLET BY MOUTH DAILY 100 tablet 3 omega-3 (Fish Oil) 1000 MG capsule Take 1 capsule by mouth 1 (one) time each day at the same time. pioglitazone (Actos) 45 MG tablet Take 1 tablet (45 mg) by mouth Daily simvastatin (Zocor) 40 MG tablet TAKE 1 TABLET BY MOUTH EVERY EVENING 100 tablet 3 Syringe 23G X 1 3 ML misc Inject 1 each into the shoulder, thigh, or buttocks every 14 (fourteen) days 6 each 1 testosterone cypionate (Depo-Testosterone) 100 MG/ML injection Inject 1 mL (100 mg) into the shoulder, thigh, or buttocks every 14 (fourteen) days 2 mL 2 tiZANidine (Zanaflex) 4 MG capsule TAKE 1 CAPSULE BY MOUTH AT BEDTIME NEEDED 30 capsule 5 [DISCONTINUED] phentermine (Adipex-P) 37.5 MG tablet Take 1 tablet (37.5 mg) by mouth in the morning. Take before meals. 30 tablet 0 [DISCONTINUED] phentermine (Adipex-P) 37.5 MG tablet Take 1 tablet (37.5 mg) by mouth in the morning. Take before meals. 30 tablet 0 No current facility-administered medications on file prior to visit. I have reviewed and reconciled the history and medication list with the patient today. 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 Negative for chills, fatigue and fever. Respiratory: Negative for cough, shortness of breath and wheezing. Cardiovascular: Negative for chest pain, palpitations and leg swelling. Gastrointestinal: Negative for abdominal pain, constipation, diarrhea, nausea and vomiting. Skin: Negative for rash. Objective Physical Exam Constitutional: General: He is not in acute distress. Appearance: He is obese. Comments: Very pleasant HENT: Head: Normocephalic and atraumatic. Eyes: General: No scleral icterus. Cardiovascular: Rate and Rhythm: Normal rate and regular rhythm. Heart sounds: No murmur heard. Pulmonary: Effort: Pulmonary effort is normal. No respiratory distress. Breath sounds: Normal breath sounds. No wheezing, rhonchi or rales. Musculoskeletal: General: No swelling. Skin: General: Skin is warm and dry. Neurological: General: No focal deficit present. Mental Status: He is alert and oriented to person, place, and time. Psychiatric: Mood and Affect: Mood normal. Behavior: Behavior normal. Office Visit on 12/28/2023 Component Date Value Ref Range Status Hemoglobin A1C 12/28/2023 7.3 Final Assessment/Plan Diagnoses and all orders for this visit: Type 2 diabetes mellitus with other specified complication, without long-term current use of insulin ([facility]) - POCT Glycated hemoglobin, total Advised pt that his HgbA1c has increased to 7.3. He had a recent change in his diet and was eating unhealthier foods at lunch consistently. Discussed healthier options for snacks or quick meal solutions. Limit simple sugars and carbs. Will recheck in three months. His insurance does not cover GLP class medications. Primary hypertension ([facility]) Patient's blood pressure is currently stable. Continue with current medications and I will continue to monitor. Morbid obesity ([facility]) Pt has gained 21 pounds since his last appointment. Unable to continue the Adipex for the patient at this time as the benefits are no longer outweighing the potential risks of the medication. Encouraged him to work on improving his diet. Stay active, can re-evaluate in three months. Follow up in about 3 months (around 03/29/2024) for Diabetes. documented in this encounter [facility] 12-27-2023 Telephone encounter Note Form atting of this note might be different from the original. OARRS reviewed, Rx sent into patient's pharmacy. [facility] 12-27-2023 Miscellaneous Notes Formattin g of this note might be different from the original. OARRS reviewed, Rx sent into patient's pharmacy. phentermine (Adipex-P) 37.5 MG tablet Ddm in [place] documented in this encounter [facility] 12-27-2023 Telephone encounter Note Form atting of this note might be different from the original. phentermine (Adipex-P) 37.5 MG tablet Ddm in [place] [facility] 11-23-2023 Telephone encounter Note Form atting of this note might be different from the original. Yes, med was already sent [facility] 11-23-2023 Miscellaneous Notes Formattin g of this note might be different from the original. Yes, med was already sent This looks as though it was sent in on 11/20 documented in this encounter [facility] 11-23-2023 Telephone encounter Note Form atting of this note might be different from the original. This looks as though it was sent in on 11/20 [facility] 11-21-2023 Telephone encounter Note Form atting of this note might be different from the original. OARRS reviewed, Rx sent into patient's pharmacy. [facility] 11-21-2023 Miscellaneous Notes Formattin g of this note might be different from the original. OARRS reviewed, Rx sent into patient's pharmacy. phentermine (Adipex-P) 37.[address] [facility] [place] documented in this encounter [facility] 11-21-2023 Telephone encounter Note Form atting of this note might be different from the original. phentermine (Adipex-P) 37.5 [facility] [place] [facility] 10-25-2023 Telephone encounter Note Form atting of this note might be different from the original. OARRS reviewed, Rx sent into patient's pharmacy. [facility] 10-25-2023 Miscellaneous Notes Formattin g of this note might be different from the original. OARRS reviewed, Rx sent into patient's pharmacy. documented in this encounter [facility] 02-02-2023 Evaluation note Encounter Date Diagnosis Assessment Notes Jan, Lumbosacral spondylosis (ICD-10 - M47.817) In the future if the pain persists, we can consider proceeding with lumbar facet MBB followed by a RFA if applicable under fluoroscopic guidance. Jan, Lumbar radiculopathy (ICD-10 - M54.16) 58 year old male here for follow up to discuss chronic pain. He voices complaints of low back and right hip pain with radiation into the groin and to the anterior aspect of the right thigh. He feels the numbness in the right thigh has improved some since his last office visit. Since he was here last he was hospitalized for cellulitis of the left lower extremity. He is currently on 2 ATB. Pertinent imaging of the lumbar spine reviewed in detail with the patient and shows degenerative changes. Anatomy of spine discussed in detail with patient in regards to patients condition. I do not recommend proceeding with injections at this time due to active infection. If his symptoms, persist we can consider other interventional treatment options in the future Jan, Chronic pain (ICD-10 - G89.29) Patient is encouraged to call the office if his symptoms worsen. appbackr Other 11-29-2023 History of Present illness Narrative* MEGGAN Lopez - 04/20/2023 5:00 PM EST Subjective Patient ID: Juan Bean is a 58 y.o. male who presents for weight check. Juan is present today for follow up obesity. Here for weight check. Started Adipex 02/02/23. 02/02/23 wt - 373 03/16/23 wt - 356.6 Today - 351.6 Pt is watching what he eats. Current Outpatient Medications on File Prior to Visit Medication Sig Dispense Refill amLODIPine (Norvasc) 5 MG tablet TAKE 1 TABLET BY MOUTH DAILY 100 tablet 3 Blood Glucose Monitoring Suppl (D-Care Glucometer) w/Device kit 1 each in the morning. Test glucoseonce a day.. 1 kit 0 ergocalciferol (Vitamin D2) 1.25 MG (41525 UT) capsule Take 1 capsule (1.25 mg) by mouth 1 (one) time per week. 12 capsule 3 glimepiride (Amaryl) 4 MG tablet Take 1 tablet by mouth. With a meal twice a day glucose blood (FREESTYLE TEST STRIPS) test strip 1 each by Other route in the morning. Use as instructed. 100 each 3 Lancets 30G misc 1 each in the morning. 100 each 3 lisinopril 20 MG tablet Take 1 tablet by mouth 1 (one) time each day. lisinopril-hydroCHLOROthiazide 20-25 MG tablet Take 1 tablet by mouth 1 (one) time each day. meloxicam (Mobic) 15 MG tablet Take 1 tablet by mouth 1 (one) time each day. Take with food. metFORMIN (Glucophage) 1000 MG tablet Take 1 tablet by mouth in the morning and 1 tablet in the evening. Take with meals. metoprolol succinate XL (Toprol-XL) 50 MG 24 hr tablet TAKE 1 TABLET BY MOUTH DAILY 100 tablet 3 omega-3 (Fish Oil) 1000 MG capsule Take 1 capsule by mouth 1 (one) time each day at the same time. phentermine (Adipex-P) 37.5 MG tablet Take 1 tablet (37.5 mg) by mouth in the morning. Take before meals. 30 tablet 0 pioglitazone (Actos) 45 MG tablet Take 1 tablet by mouth 1 (one) time each day. simvastatin (Zocor) 40 MG tablet TAKE 1 TABLET BY MOUTH EVERY EVENING 100 tablet 3 Syringe 23G X 1 3 ML misc Inject 1 each into the shoulder, thigh, or buttocks every 14 (fourteen) days 6 each 1 testosterone cypionate (Depo-Testosterone) 100 MG/ML injection Inject 1 mL (100 mg) into the shoulder, thigh, or buttocks every 14 (fourteen) days 2 mL 2 tiZANidine (Zanaflex) 4 MG capsule TAKE 1 CAPSULE BY MOUTH AT BEDTIME NEEDED 30 capsule 5 No current facility-administered medications on file prior to visit. 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 Respiratory: Negative for cough and shortness of breath. Cardiovascular: Negative for chest pain, palpitations and leg swelling. Gastrointestinal: Negative for abdominal pain, constipation, diarrhea, nausea and vomiting. Skin: Negative for rash. Objective Physical Exam Constitutional: General: He is not in acute distress. Appearance: He is obese. Comments: Very pleasant HENT: Head: Normocephalic and atraumatic. Eyes: General: No scleral icterus. Cardiovascular: Rate and Rhythm: Normal rate and regular rhythm. Heart sounds: No murmur heard. Pulmonary: Effort: Pulmonary effort is normal. No respiratory distress. Breath sounds: Normal breath sounds. No wheezing, rhonchi or rales. Musculoskeletal: General: No swelling. Skin: General: Skin is warm and dry. Neurological: General: No focal deficit present. Mental Status: He is alert and oriented to person, place, and time. Psychiatric: Mood and Affect: Mood normal. Behavior: Behavior normal. Assessment/Plan Diagnoses and all orders for this visit: Primary hypertension (CMS/HCC) BP improved on recheck. Continue current medications as prescribed. Will continue to monitor. Goal BP < 130/80. He does have a wrist cuff now and will be monitoring his BP at home periodically. Reviewed proper technique for checking BP with wrist cuff. Morbid obesity (CMS/HCC) Patient has lost a total of 21.4 pounds since starting the Adipex. Encouraged pt to continue to aimfor a gradual weight loss over the next 3 months. Encouraged routine exercise. Limit simple sugars and carbohydrates, watch portion sizes. Will see pt back in 3 months. If continues to tolerate it well and patient continues to have health benefit from medication, the Adipex can be continued. Follow up in about 3 months (around 07/19/2023) for Medication Follow Up, Hypertension. documented in this encounterMiss[facility]-[id number] Evaluation note* Encounter Date Diagnosis Assessment Notes Treatment Notes Treatment Clinical Notes Dec, Lumbar radiculopathy (ICD-10 - M54.16) 57 year old male presents with complaints of low back and right hip pain with radiation into the groin and to the anterior aspect of the right thigh. He states pain has been constant and increasing over the last 3-4 years. He states he completed physical therapy last week which he states improved radicular symptoms. He feels pain negatively impacts his ADLs and sleeping pattern. Prior to examining the patient, I reviewed progress notes from his referring physician Satnam Wright. I also independently reviewed recent imaging of the lumbar spine which shows moderatley extensive rotary levoscoliosis and facet arthropathy. Anatomy of spine discussed in detail with patient in regards to patients condition. I will order an updated MRI of the lumbar spine at this time to determine if patient will benefit from interventional treatment. Dec, Chronic pain (ICD-10 - G89.29) Follow up after imaging Dec, Sacroiliitis (ICD-10 - M46.1) In the future if the pain persists, we can consider proceeding with a right sacroiliac joint injection under fluoroscopic guidance Dec, Lumbosacral spondylosis (ICD-10 - M47.817) In the future if the pain persists, we can consider proceeding with a right lumbar facet MBB followed by a RFA if applicable under fluoroscopic guidance. Dec, Other Medical deci mark making shows a new problem to me with further workup planned or suggested with the potential for extensive treatment options that were considered with the most applicable given this patient's situation as noted above. Treatment options considered include a combination of physical therapy approaches, pharmacologic management, and interventional procedures. Those most applicable to the patient were discussed at this time. Risk of complications and/or morbidity and mortality is high given that acute and chronic pain poses a threat to life and bodily function if undertreated, poorly treated or with failure to maintain adequate treatment and timely followup. Given the serious and fluctuating nature of pain with extensive consideration for whenever pain changes, there always remains the possibility of prolonged functional impairment requiring constant patient reassessment and high-level medical decision making. The amount and complexity of data reviewed is high given that patient labs, radiology reports, and other test were obtained, reviewed and summarized as applicable from the physician portal and/or outside medical records. Pertinent positive and negative findings were considered in medical decision-making. appbackr Other [id number] Miscellaneous Notes* Telephone Encounter - Víctor Rosales MD - 08/19/2022 9:48 AM EDT Phoned patient with pathology results from recent surgery - no evidence of malignancy, LS present. Recommend periodic physical exam and CT scan pelvis to monitor for local recurrence and to monitor inguinal nodes that cannot be reliably palpated due to obesity. He prefers to arrange follow-up withDr. Santana and will return here as needed. Víctor Rosales MD documented in this encounterSelect [facility] [place] NoteHNO ID: [id number] Author: Elena Teran APRN.BREAKFAST BAR ATTENDANT Service: ? Author Type: Nurse Shoes Hand Sewer Type: Anesthesia Procedure Notes Filed: 08/13/2022 3:45 PM Note Text: ANESTHESIOLOGY PROCEDURE NOTE Airway General Information Procedure Start Time/Medication Administration: 08/13/2022 3:07 PM Procedure End Time: 08/13/2022 3:08 PM Patient location during procedure: OR Timeout Performed Pre-procedure: timeout performed Consent Obtained: Yes Patient identity confirmed: patient sedated or unresponsive and arm band Staffing Anesthesiologist: Brennan Henley MD BREAKFAST BAR ATTENDANT: Elena Teran APRN.BREAKFAST BAR ATTENDANT Performed by: BREAKFAST BAR ATTENDANT Indications and Patient Condition Indications for airway management: anesthesia Preoxygenated: yes anesthesia circuit Patient position: sniffing and ramp Method: asleep Difficult Mask: Yes (garibay, two handed mask unsuccessful, LMA placed) Airway Accessory: LMA and oral airway (Oral airway 5 unsuccessful LMA 5 placed) Final Airway Details Final airway type: endotracheal airway Final Endotracheal Airway: ETT Cuffed: yes Successful intubation technique: video laryngoscopy Devices used: Mcmahon and intubating stylet Endotracheal tube insertion site: oral Blade: Toya Blade size: #4 ETT size (mm): 7.5 Measured from: lips Measurement (cm): 23 Placement verified by: capnometry Cormack-Lehane Classification: grade I - full view of glottis Number of attempts at approach: 2 Ventilation between attempts: supraglottic airway Airway not difficult Comments First attempt with iGel 5 did not seat, LMA removed and 2 handed BVM unsuccessful, Succ given and iGel 5 replaced with successful ventilation. Pt then intubated with Mcmahon and stylette. SIGNATURE: Elena Teran APRN.BREAKFAST BAR ATTENDANT PATIENT NAME: Juan Bean DATE: August 13, 2022 TIME: 3:38 PM CSN: [id number] [facility]als [facility]06-09-2023 NoteThis case was seen in consultation with Drs. Florentin Shirley, Hema Edwards and Rita Funez who agree with the above interpretation.[facility] Comment on above:Order Comment: Specimen Type: TISSUE SPECIMENOrdering Facility: [facility] Address: [address] [id number] Performed By: #### S ####[facility] LABCLIA [id number] [address] OF [id number] Note Patient Outreach (UROLMN) JUAN BAEN ([id number]) 1965 M Date Time Provider Department 07/12/22 VÍCTOR ROSALES During your visit today, we recorded the following information about you: Allergies As of Date: 07/12/2022 (No Known Allergies) Date Reviewed: 07/12/2022 Reviewed by: ADELA Crandall - Fully Assessed Visit Diagnosis:Screening for genitourinary condition [Z13.89] Order(s):URINALYSIS, REFLEX MICROSCOPIC [[id number]] Order #: [id number]. #:[id number] Prescriptions as of 07/15/2022 - amLODIPine (NORVASC) 5 mg tablet - cephALEXin (KEFLEX) 500 mg capsule Take 500 mg by mouth twice daily. - cholecalciferol, Vitamin D3, (VITAMIN D3) 1,250 mcg (50,000 unit) cap capsule Take by mouth. - dicyclomine (BENTYL) 20 mg tablet Take 20 mg by mouth. - Docosahexanoic Acid-Eicosapent 120-180 mg capsule Take by mouth q 24 HR. - ergocalciferol 50,000 unit capsule (VITAMIN D2, DRISDOL) Ergocalciferol (Vitamin D2) Active 1250 UNIT PO every week May 17, 2022 12:00am - glimepiride (AMARYL) 4 mg tablet - HYDROcodone-acetaminophen (NORCO) 5-325 mg per tablet Take 1 tablet by mouth. - latanoprost (XALATAN) 0.005 % ophthalmic solution Use in eyes q 24 HR. - lisinopril (ZESTRIL) 20 mg tablet - lisinopril (ZESTRIL) 20 mg tablet Lisinopril Active 20 MG PO Every evening May 17, 2022 12:00am - lisinopril-hydroCHLOROthiazide (ZESTORETIC) 20-25 mg per tablet - meloxicam (MOBIC) 15 mg tablet - metFORMIN (GLUCOPHAGE) 1,000 mg tablet - metoprolol succinate ER (TOPROL XL) 50 mg 24 hr tablet - pioglitazone (ACTOS) 45 mg tablet - simvastatin (ZOCOR) 40 mg tablet Simvastatin Active 40 MG PO Every evening May 17, 2022 12:00am - tiZANidine HCl (ZANAFLEX) 4 mg capsule Tizanidine (Zanaflex) 4 mg capsule Active 4 MG PO Every evening May 17, 2022 12:00am Problem List As Of Date 07/12/2022 Noted Resolved Penile cancer (HCC) [C60.9] 07/12/2022 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 Author Type: Physician Type: Progress Notes Filed: 07/12/2022 9:40 AM Note Text: [facility] NEW PATIENT HISTORY AND PHYSICAL EXAM PATIENT INFO: Juan Bean 57 year old REFERRING M.D.: No referring provider defined for this encounter. This consult was requested by Daniel Leonard MD for an opinion regarding penile cancer, and my final recommendations will be communicated to the requesting health care provider by way of the shared medical record for internal providers or letter via the [employer] for external providers. HISTORY CHIEF COMPLAINT: Penile cancer HPI: 57M former smoker w BMI 46, HTN, HLD, and DM2 presents for penile cancer. 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 Today, he has recovered well from surgery and denies LUTS. He is able to get moderate erections, and he hopes to be sexually active w his girlfriend in the future. MEDICATIONS: Current Outpatient Medications Medication Sig dicyclomine (BENTYL) 20 mg tablet Take 20 mg by mouth. ergocalciferol 50,000 unit capsule (VITAMIN D2, DRISDOL) Ergocalciferol (Vitamin D2) Active 1250 UNIT PO every week May 17, 2022 12:00am lisinopril (ZESTRIL) 20 mg tablet Lisinopril Active 20 MG PO Every evening May 17, 2022 12:00am simvastatin (ZOCOR) 40 mg tablet Simvastatin Active 40 MG PO Every evening May 17, 2022 12:00am tiZANidine HCl (ZANAFLEX) 4 mg capsule Tizanidine (Zanaflex) 4 mg capsule Active 4 MG PO Every evening May 17, 2022 12:00am amLODIPine (NORVASC) 5 mg tablet cephALEXin (KEFLEX) 500 mg capsule Take 500 mg by mouth twice daily. cholecalciferol, Vitamin D3, (VITAMIN D3) 1,250 mcg (50,000 unit) cap capsule Take by mouth. Docosahexanoic Acid-Eicosapent 120-180 mg capsule Take by mouth q 24 HR. glimepiride (AMARYL) 4 mg tablet HYDROcodone-acetaminophen (NORCO) 5-325 mg per tablet Take 1 tablet by mouth. latanoprost (XALATAN) 0.005 % ophthalmic solution Use in eyes q 24 HR. lisinopril (ZESTRIL) 20 mg tablet lisinopril-hydroCHLOROthiazide (ZESTORETIC) 20-25 mg per tablet meloxicam (MOBIC) 15 mg tablet metFORMIN (GLUCOPHAGE) 1,000 mg tablet metoprolol succinate ER (TOPROL XL) 50 mg 24 hr tablet pioglitazone (ACTOS) 45 mg tablet No current facility-administered medications for this visit. MEDICATION ALLERGIES: ALLERGIES No Known Allergies No past medical history on file. No past surgical history on file. FAMILY HISTORY: NEGATIVE: No related previous family history. Social History Tobacco Use Smoking status: Former Types: Cigarettes Smokeless tobacco: Current REVIEW OF SYSTEMS: Constitutional: negative Eyes: negative Ear Nose and Throat: negative Cardiovascular: negative Respiratory: negative Gastrointestinal: negative Musculoskeletal: negative Integumentary: negative Neurological: negative Psychiatric: negative Endocrine: negative Hematologic/Lymphatic: negative Allergic/Immunologic: negative PHYSICAL EXAM: BP 162/81 (BP Site: Left Arm, BP Position: Sitting, BP Cuff Size: Large Adult) Pulse 92 Ht 185.4 cm (6' 1 ) Wt (!) 161.5 kg (356 lb) BMI 46.97 kg/m? GENERAL:WNL nutrition, no deformities, healthy appearing HEAD AND NECK: No masses, adenopathy, icterus. Thyroid nonpalpable RESP: Chest clear to auscultation without wheezing, rales, or rhonchi. CV: RRR, no murmurs, rubs or gallops ABDOMEN: Soft, nontender, nondistended, no masses. HERNIAS: None SKIN/LYMPH: No rash, lesions NEURO/PSYCH: No signs of depression, anxiety, or agitation EXTREMITIES: Extremities normal. No deformities, edema, clubbing or skin discoloration. GENITOURINARY: MALE EXAM: No scrotal lesions, cysts, rashes. Spermatoceles: None Hydroceles: None Varicoceles: None Epididymis AND testes: normal size, position, without masses Urethra AND meatus: normal size AND position w/o lesion or discharge Penis: buried but easily exposed with pressure. circumcised with a subcentimeter erythematous polyp at the ventral circ line as well as multiple erythematous areas of the glans c/f SCC. MEDICAL DECISION MAKING: (A1) IMPRESSION: (Diagnostic Possibilities) New or Established 1) Buried penis 2) Penile SCC (A2) PLAN: (Management Options) OR excision of concerning lesions Allan Mayorga Jr., MD Reconstructive Urology Fellow Electronically signed STAFF NOTE: I evaluated the patient and personally participated in the sanches components. I agree with the resident's findings and plan as documented and have discussed the case and management of the patient's care with the res (more content not included)...[facility]05-08-2023 History of Present illness Narrative* Víctor Rosales MD - 07/12/2022 9:18 AM EDT [facility] NEW PATIENT HISTORY AND PHYSICAL EXAM PATIENT INFO: Juan Bean 57 year old REFERRING M.D.: No referring provider defined for this encounter. This consult was requested by Daniel Leonard MD for an opinion regarding penile cancer, and my final recommendations will be communicated to the requesting health care provider by way of the shared medical record for internal providers or letter via the [employer] for external p roviders. HISTORY CHIEF COMPLAINT: Penile cancer HPI: 57M former smoker w BMI 46, HTN, HLD, and DM2 presents for penile cancer. 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 Today, he has recovered well from surgery and denies LUTS. He is able to get moderate erections, and he hopes to be sexually active w his girlfriend in the future. MEDICATIONS: Current Outpatient Medications Medication Sig dicyclomine (BENTYL) 20 mg tablet Take 20 mg by mouth. ergocalciferol 50,000 unit capsule (VITAMIN D2, DRISDOL) Ergocalciferol (Vitamin D2) Active 1250 UNIT PO every week May 17, 2022 12:00am lisinopril (ZESTRIL) 20 mg tablet Lisinopril Active 20 MG PO Every evening May 17, 2022 12:00am simvastatin (ZOCOR) 40 mg tablet Simvastatin Active 40 MG PO Every evening May 17, 2022 12:00am tiZANidine HCl (ZANAFLEX) 4 mg capsule Tizanidine (Zanaflex) 4 mg capsule Active 4 MG PO Every evening May 17, 2022 12:00am amLODIPine (NORVASC) 5 mg tablet cephALEXin (KEFLEX) 500 mg capsule Take 500 mg by mouth twice daily. cholecalciferol, Vitamin D3, (VITAMIN D3) 1,250 mcg (50,000 unit) cap capsule Take by mouth. Docosahexanoic Acid-Eicosapent 120-180 mg capsule Take by mouth q 24 HR. glimepiride (AMARYL) 4 mg tablet HYDROcodone-acetaminophen (NORCO) 5-325 mg per tablet Take 1 tablet by mouth. latanoprost (XALATAN) 0.005 % ophthalmic solution Use in eyes q 24 HR. lisinopril (ZESTRIL) 20 mg tablet lisinopril-hydroCHLOROthiazide (ZESTORETIC) 20-25 mg per tablet meloxicam (MOBIC) 15 mg tablet metFORMIN (GLUCOPHAGE) 1,000 mg tablet metoprolol succinate ER (TOPROL XL) 50 mg 24 hr tablet pioglitazone (ACTOS) 45 mg tablet No current facility-administered medications for this visit. MEDICATION ALLERGIES: ALLERGIES No Known Allergies No past medical history on file. No past surgical history on file. FAMILY HISTORY: NEGATIVE: No related previous family history. Social History Tobacco Use Smoking status: Former Types: Cigarettes Smokeless tobacco: Current REVIEW OF SYSTEMS: Constitutional: negative Eyes: negative Ear Nose and Throat: negative Cardiovascular: negative Respiratory: negative Gastrointestinal: negative Musculoskeletal: negative Integumentary: negative Neurological: negative Psychiatric: negative Endocrine: negative Hematologic/Lymphatic: negative Allergic/Immunologic: negative PHYSICAL EXAM: BP 162/81 (BP Site: Left Arm, BP Position: Sitting, BP Cuff Size: Large Adult) Pulse 92 Ht 185.4 cm (6' 1 ) Wt (!) 161.5 kg (356 lb) BMI 46.97 kg/m GENERAL:WNL nutrition, no deformities, healthy appearing HEAD & NECK: No masses, adenopathy, icterus. Thyroid nonpalpable RESP: Chest clear to auscultation without wheezing, rales, or rhonchi. CV: RRR, no murmurs, rubs or gallops ABDOMEN: Soft, nontender, nondistended, no masses. HERNIAS: None SKIN/LYMPH: No rash, lesions NEURO/PSYCH: No signs of depression, anxiety, or agitation EXTREMITIES: Extremities normal. No deformities, edema, clubbing or skin discoloration. GENITOURINARY: MALE EXAM: No scrotal lesions, cysts, rashes. Spermatoceles: None Hydroceles: None Varicoceles: None Epididymis & testes: normal size, position, without masses Urethra & meatus: normal size & position w/o lesion or discharge Penis: buried but easily exposed with pressure. circumcised with a subcentimeter erythematous polypat the ventral circ line as well as multiple erythematous areas of the glans c/f SCC. MEDICAL DECISION MAKING: (A1) IMPRESSION: (Diagnostic Possibilities) New or Established 1) Buried penis 2) Penile SCC (A2) PLAN: (Management Options) OR excision of concerning lesions Allan Mayorga Jr., MD Reconstructive Urology Fellow Electronically signed STAFF NOTE: I evaluated the patient and personally participated in the sanches components. I agree with the resident's findings and plan as documented and have discussed the case and management of the patient's carewith the resident. Referred for evaluation of recently diagnosed penile cancer. He underwent circumcision with pathology report as noted above. On examination, the penis is buried when supine, however it can be exposed. Ventrally at 6:00 thereis a raised lesion that could be consistent with persistent or recurrent disease. Dorsally there isdark red inflammatory appearing skin that needs to be biopsied again as well. The glans penis looks fairly good, likely will biopsy this area during upcoming surgery. Urethral meatus patent. Morbidlyobese and unable to do an adequate exam of the inguinal regions, however he had a recent CT scan. BMI = 47 ASSESSMENT/PLAN: 1. 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 Morbid obesity with BMI of 45.0-49.9, adult (HCC) - ICD9: 278.01, V85.42, ICD10: E66.01, Z68.42 Discussed with patient, emphasized the importance of weight loss to improve penile hygiene and improve exposure. Recommend biopsies in the operating room to determine the extent of disease currently,if any. He understands that the results of the biopsies will determine future treatment. I discussed the RBAP related to the procedure, outcomes, appropriate postoperative expectations, recovery. Patient agrees to proceed. Signature: Víctor Rosales MD Service Date: 07/12/2022 Service Time: 9:37 AM documented in this encounterSelect [facility], [place]04-18-2023 Progress note Author Silvio Yu [facility] June 22, 2022 9:03am Note Date/Time June 22, 2022 8:2 [facility] [place] [address] Hem/Onc Follow Up Note - OP Signed Patient: Juan Bean JR MR#: [id number] : 1965 Acct:[id number] Age/Sex: 57 / M Type: REG RCR Copies to: MD Div[facility] Caicedo [facility]~ Date of Service: 06/22/2022 Time of Service: 08:21 - Assessment & Plan (1) Squamous cell carcinoma, penis Plan: I reviewed the guidelines very closely in the situation as I do not have a lot of experience with early-stage penile cancers. Based on the NCCN guidelines if this is a T1 a lesion which would mean the pathologic grade is 1 or 2 and limited to the foreskin only he would be monitored if we were certain that margins were negative. This would be considered a T1b lesion if pathologic grade 3 or 4 and he would beconsidered for CT of the chest abdomen and pelvis and inguinal lymph node dissection. Based on the Ki-67 of 85%, it is possible he is a T1b. will send to [facility] path review for second opinion. We would like to ascertain he has no residual disease. Dr. Santana will speak withhis colleague Dr. Víctor Rosales at [facility] and determine if additional excision or biopsy is necessary. Follow Up Instructions: Dr. Santana is setting up to see [facility] urology. send path report to [facility] for review. ct c/a/p with contrst cbc, cmp, cea with ct . f/u in 3 wks. 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 Hadcircumcision 05/31/22, [facility] pathology. HPI: 57-year-old male past medical history includes hypertension, hyperlipidemia, type 2 diabetes, low testosterone. Outpatient medications include glimepiride, hydrochlorothiazide, lisinopril, metformin, metoprolol, pioglitazone. His primary care provider is Divya Verdin. On May 31, 2022 Dr. Santana took him to the operating room for circumcision to correct phimosis with inability to retract the foreskin. After careful reading of the op report it did not seem like there was a significant concern for cancer. Pathology confirmed a moderately differentiated squamous cell carcinomaat least superficially invasive which is p16 positive. Adjacent to the tumor and there is a penile intraepithelial neoplasia with no definitive perineural orlymphovascular invasion seen. Ki-67 was noted to be 85%. - Physical Exam ECOG PS:0 General : patient is alert and oriented to person place and time, no acute distress. Neck: no JVD or thyromegaly. Lymph: no cervical, supraclavicular, axillary adenopathy. Heart: regular rate and rhythm no murmurs rubs or gallops. Abdomen: soft tender centrally, nondistended, no hepatosplenomegaly. Lungs: clear to auscultation bilaterally. No wheezes, rales, rhonchi. Extremities: no clubbing cyanosis Careful examination of the glans penis reveals well-healing circumferential suture line with no excessive erythema. He does have superficial skin maceration of the glans penis and surrounding the suture line consistent with probable fungal infection and granulation tissue. He does have a small nodule at the inferior portion of the glans penis of unclear significance. No obvious lumps or masses. No testicular masses. Normal epididymis bilaterally. He does not have any palpable inguinal lymph nodes. - Time with Patient Coordination of Care & Counseling Time: Greater than 50% of time spent with patient was for coordination of care (as documented) and [id number] counseling of patient and/or family. [facility] - Medical History Medical History: Medical History (Last Updated 06/22/22 @ 08:05 by Tatiana Brown) Back pain Chewing tobacco use Cholelithiasis Diabetes type 2 History of gout HTN (hypertension) Hyperlipemia Male circumcision 05/31/22 Pain in right leg Phimosis Scoliosis deformity of spine - Surgical History Surgical History: Surgical History (Last Reviewed 05/31/22 @ 12:06 by Pamela Machado LPN) History of tonsillectomy - Family History Family History: Family History (Last Reviewed 06/22/22 @ 08:08 by Tatiana Brown) Mother Heart attack Keri Gehrig disease Father Heart attack Renal disease Sister Cancer - Social History Smoking Status: Former smoker Substance Use Type: Alcohol Social History Comments: adult son stays with patient Additional Data - Additional Objective Data Height/Weight: Height 6 ft 1 in Weight 164.835 kg Vital Signs: 06/22/22 08:12 Temperature 97.9 F Pulse Rate [Right Brachial] 86 Respiratory Rate 20 Blood Pressure [Right Arm] 145/79 H 02 Sat by Pulse Oximetry 97 Oxygen Delivery Method Room Air - Home Medications and Allergies Allergies/Adverse Reactions: Allergies No Known Allergies Allergy (Verified 06/22/22 08:06) Home Medications: Home Medications amlodipine 5 mg tablet 5 mg PO QAM 05/17/22 [History Confirmed 06/22/22] ergocalciferol (vitamin D2) 1,250 mcg (50,000 unit) capsule 1,250 unit PO QWEEK 05/17/22 [History Confirmed 06/22/22] glimepiride 4 mg tablet 4 mg PO BID 05/17/22 [History Confirmed 06/22/22] lisinopril 20 mg tablet 20 mg PO QPM 05/17/22 [History Confirmed 06/22/22] lisinopril 20 mg-hydrochlorothiazide 25 mg tablet 1 tab PO QAM 05/17/22 [History Confirmed 06/22/22] meloxicam 15 mg tablet 15 mg PO DAILY 05/17/22 [History Confirmed 06/22/22] metformin 1,000 mg tablet 1,000 mg PO BID 05/17/22 [History Confirmed 06/22/22] metoprolol succinate 50 mg tablet,extended release 24 hr 50 mg PO QAM 05/17/22 [History Confirmed 06/22/22] pioglitazone 45 mg tablet 45 mg PO QAM 05/17/22 [History Confirmed 06/22/22] simvastatin 40 mg tablet 40 mg PO QPM 05/17/22 [History Confirmed 06/22/22] tizanidine 4 mg capsule (Zanaflex) 4 mg PO QPM PRN Pain 05/17/22 [History Confirmed 06/22/22] Dictated By: Silvio Yu II, DO DD/ 0821 Signed By: <Electronically signed by Silvio Yu II, DO> 06/22/22 [address] [facility] Work Phone: [phone]) 308-615603-06-2023 NoteChief Complaint Referral HPI Staff Referral per Divya Verdin due to circumcision. IPSS score is 2. Pt states penis gets sore, pt states a women has scrapped her tooth across his foreskin and it caused the slight bleeding and tenderness. Pt seen per DLS back in 2016. Dysuria: sore sometimes when urinating Incomplete bladder emptying: denies Hematuria: denies visible blood Frequency: denies Urgency: denies Nocturia: sometimes once a night Stream: denies hesitancy, denies weak stream Leaking: denies Post void dripping: denies Wearing pads/ Depends: denies Urge incontinence: denies Stress incontinence: denies Incontinence without Sensory Awareness: denies Abdominal pain: denies Flank pain: denies Sexual complaints: denies History of Present Illness I have reviewed and verified the staff HPI to be accurate for this encounter. Review of Systems PHQ Score Initial Depression Screen Score: 0 ROS - Provider Constitutional: denies weight loss, denies hot flashes. Eyes: denies eye problems. Gastrointestinal: denies nausea, denies vomiting. Cardiovascular: denies chest pain or angina. Integumentary: no dryness Musculoskeletal: denies musculoskeletal symptoms. ENMT: denies otolaryngeal symptoms. Respiratory: no shortness of breath. Heme/Lymph: denies easy bleeding tendency, denies easy bruising tendency. Psychiatric: no confusion, no anxiety. Genitourinary: denies dysuria, denies hematuria, denies discharge, denies urinary frequency, deniesurinary hesitancy, denies nocturia, denies incontinence, denies genital sores, denies decreased libido, and denies erectile dysfunction. Physical Exam Vitals & Measurements HR: 84(Peripheral) RR: 70 BP: 146/85 HT: 73 in HT: 186 cm WT: 165.8 kg WT: 364.76 lb BMI: 47.92 General Appearance: alert, no distress, well nourished, well developed male. Obese Head: normocephalic . Eyes: normal orbit and globe. ENMT: normal examination of external ears. Chest: Lungs CTA, respirations non labored. Cardiovascular: regular rate and rhythm. Abdomen: soft, non distended, no tenderness, no mass or organomegaly, no hernia. Obese, prominent pannus Genitourinary: normal scrotum, normal testes, normal urethra, normal epididymis, normal vas deferens/spermatic cord. Flank Pain: none. Bladder: nonpalpable. Penis: With moderate retraction of the foreskin he does have excoriated areas with cracking and erythema. Unable to retract. Unable to evaluate the head of the penis. Lymph Nodes: unremarkable palpation of the cervical area. Skin: warm, dry, no bruising. Psychiatric: cooperative, affect appropriate for age, normal judgement, euthymic mood. Assessment/Plan 1. Phimosis (N47.1: Phimosis) Pt is having difficulty retracting his foreskin. Will schedule Circumcision. The procedure risks, benefits, and details have been discussed with thepatient. These include bleeding, infection, potential separation of the skin edges (which will healin), change in penile sensation which may affect sexual intercourse and erections, as well as the need for additional procedures, among others. Full informed consent has been obtained. Will order General anesthesia. 2. Balanoposthitis (N47.6: Balanoposthitis) Pt states penis gets sore, pt states a women has scrapped her tooth across his foreskin and it caused the slight bleeding and tenderness. Pt saw in the past and was treated for yeast infections in the past. Upon exam today it appears that pt may have a yeast infection currently. Discussed with pt getting over the counter medication to help clear this up. 3. Hypogonadism male (E29.1: Testicular hypofunction) Pt was on testosterone via his PCP but was taken off due to Elevated Blood pressure. PCP checks pt's PSA Overall the patient has having fairly long-term difficulties with balanoposthitis, even back in 2016. He is now having difficulty retracting the penis indicating a phimosis. He is morbidly obese and does carry an increased anesthesia risk. PFTs will definitely be indicated. Due to his body habitus and obesity, and anatomy I let him know that he may have some redundant foreskin still present even after circumcision. This is not optimal but I would rather leave more foreskin so he can achieve an erection without pulling on the scrotal skin. He understands all that and wants to proceed. He denies any past history of heart or pulmonary difficulties. He agrees with the plan Follow-up With When Contact Information Timmy SANTANA MD, URL [address] [id number]- Additional Instructions: pt will f/u after procedure Patient Education Ramona Christiansen , personally scribed for Dr. Santana on 05/10/2022 11:00:16. . Documentation recorded by the scribe, Ramona Yost MA, accurately reflects the services(s) I performed and decisions made by me. Authenticated by (more content not included)...[facility] HospitalComment on above:Result Comment: Electronically Signed By: Timmy SANTANA MD\.br\Date and Time Signed: 05/10/22 11:03 EST\.br\Electronically Co-Signed By: Ramona Yost MA\.br\Date and Time Co-Signed: 05/10/22 11:00 [id number] Hospital Discharge instructions Patient Education 05/10/2022 10:53:42 Balanitis Balanitis Balanitis is swelling and irritation (inflammation) of the head of the penis (glans penis). The condition may also cause inflammation of the skin around the glans penis (foreskin) in men who have notbeen circumcised. It may develop because of an infection or another medical condition. Balanitis occurs most often among men who have not had their foreskin removed (uncircumcised men). Balanitis sometimes causes scarring of the penis or foreskin, which can require surgery. Untreated balanitis can increase the risk of penile cancer. What are the causes? Common causes of this condition include: Poor personal hygiene, especially in uncircumcised men. Not cleaning the glans penis and foreskin well can result in buildup of bacteria, viruses, and yeast, which can lead to infection and inflammation. Irritation and lack of air flow due to fluid (smegma) that can build up on the glans penis. Other causes include: Chemical irritation from products such as soaps or shower gels (especially those that have fragrance), condoms, personal lubricants, petroleum jelly, spermicides, or fabric softeners. Skin conditions, such as eczema, dermatitis, and psoriasis. Allergies to medicines, such as tetracycline and sulfa drugs. Certain medical conditions, including liver cirrhosis, congestive heart failure, diabetes, and kidney disease. Infections, such as candidiasis, HPV (human papillomavirus), herpes simplex, gonorrhea, and syphilis. Severe obesity. What increases the risk? The following factors may make you more likely to develop this condition: Having diabetes. This is the most common risk factor. Having a tight foreskin that is difficult to pull back (retract) past the glans. Having sexual intercourse without using a condom. What are the signs or symptoms? Symptoms of this condition include: Discharge from under the foreskin. A bad smell. Pain or difficulty retracting the foreskin. Tenderness, redness, and swelling of the glans. A rash or sores on the glans or foreskin. Itchiness. Inability to get an erection due to pain. Difficulty urinating. Scarring of the penis or foreskin, in some cases. How is this diagnosed? This condition may be diagnosed based on: A physical exam. Testing a swab of discharge to check for bacterial or fungal infection. Blood tests: ?To check for viruses that can cause balanitis. ?To check your blood sugar (glucose) level. High blood glucose could be a sign of diabetes, which can cause balanitis. How is this treated? Treatment for balanitis depends on the cause. Treatment may include: Improving personal hygiene. Your health care provider may recommend sitting in a bath of warm waterthat is deep enough to cover your hips and buttocks (sitz bath). Medicines such as: ?Creams or ointments to reduce swelling (steroids) or to treat an infection. ?Antibiotic medicine. ?Antifungal medicine. Surgery to remove or cut the foreskin (circumcision). This may be done if you have scarring on the foreskin that makes it difficult to retract. Controlling other medical problems that may be causing your condition or making it worse. Follow these instructions at home: Do not have sex until the condition clears up, or until your health care provider approves. Keep your penis clean and dry. Take sitz baths as recommended by your health care provider. Avoid products that irritate your skin or make symptoms worse, such as soaps and shower gels that have fragrance. Take [id number] and prescription medicines only as told by your health care provider. ?If you were prescribed an antibiotic medicine or a cream or ointment, use it as told by your health care provider. Do not stop using your medicine, cream, or ointment even if you start to feel better. ?Do not drive or use heavy machinery while taking prescription pain medicine. Contact a health care provider if: Your symptoms get worse or do not improve with home care. You develop chills or a fever. You have trouble urinating. You cannot retract your foreskin. Get help right away if: You develop severe pain. You are unable to urinate. Summary Balanitis is inflammation of the head of the penis (glans penis) caused by irritation or infection. Balanitis causes pain, redness, and swelling of the glans penis. This condition is most common among uncircumcised men who do not keep their glans penis clean and in men who have diabetes. Treatment may include creams or ointments. Good hygiene is important for prevention. This includes pulling back the foreskin when washing yourpenis. This information is not intended to replace advice given to you by your health care provider. Make sure you discuss any questions you have with your health care provider. Document Released: 07/10/2009 Document Revised: 02/03/2018 Document Reviewed: 01/10/2017 [employer] Patient Education 2020 [employer] Follow Up Care 04/08/2022 10:13:04 With:RHONDA PROCTOR, Timmy Howard, URL Address: [address] [place], [place] [id number]- When: Unknown [facility] Shane Chief complaint Narrative - Reported* JUAN BEAN is being seen for a cardiovascular evaluation of pre-operative clearance and Dr. Santana Circumcision. * 57-year-old gentleman seen in cardiology consultation at the request of anesthesia and Dr. Santana of urology for preoperative risk assessment prior to circumcision. Surgery itself is a low risk procedure. * The patient has comorbidities inclusive for diabetes, hypertension and obesity. * There is no prior history of myocardial infarction, revascularization, stroke, thromboembolic or bleeding disorder. He is a reformed smoker quit over 27 years ago. * Baseline ECG reveals sinus rhythm with right bundle branch block (not necessarily pathologic). 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 * Medications are reviewed and are appropriate for his comorbidities, he is slightly tachycardic and hypertensive today likely due to underlying anxiety in the office. * His overall revised Mariusz criteria for presurgical assessment for major adverse cardiac events is lowat 0.6%. * He can proceed without any further cardiovascular testing or imaging. We will follow-up on a as needed basis [facility] 250 DO Work Phone: Evaluation + Plan note No data available for this section [facility] Shaen Evaluation noteNo assessment information available [facility] Work Phone: Evaluation note* Diagnosis Penile cancer (HCC)- Primary Malignant neoplasm of penis, part unspecified Hidden penis Morbid obesity with BMI of 45.0-49.9, adult (HCC) Morbid obesity [facility] in this encounter [facility]* Diagnosis Onset Date Resolution Status Squamous cell carcinoma, penis acute [facility] Work Phone: Evaluation note* Diagnosis Screening for genitourinary condition Screening for other and unspecified genitourinary condition Penile cancer (HCC) Malignant neoplasm of penis, part unspecified documented in this encounter [facility]* Diagnosis Primary hypertension (CMS/HCC)- Primary Unspecified essential hypertension Morbid obesity (CMS/HCC) Morbid obesity [facility]* Diagnosis Morbid obesity (CMS/HCC) Morbid obesity documented in this encounter [facility]* Diagnosis Type 2 diabetes mellitus with other specified complication, without long-term current use of insulin (CMS/HCC)- Primary Primary hypertension (CMS/HCC) Unspecified essential hypertension Morbid obesity (CMS/HCC) Morbid obesity documented in this encounter [facility]* Diagnosis Morbid obesity (CMS/HCC) Morbid obesity documented in [facility] encounter [facility]* Diagnosis Morbid obesity (CMS/HCC) Morbid obesity documented in this encounter [facility]* Diagnosis Morbid obesity (CMS/HCC) Morbid obesity [facility] Narrative - Reported* Type Description Date Medical History DM2 Medical History hyperlipedemia Medical History HTN Medical History gum disease Medical History hypogonadism Medical History vit d dif Medical History Gout Surgical History T&A 1969 Hospitalization History SEE ABOVE SURGERY appbackr Other History general Narrative - Reported* Type Description Date Medical History DM2 Medical History hyperlipedemia Medical History HTN Medical History gum disease Medical History hypogonadism Medical History vit d dif Medical History Gout Surgical History T&A 1970 Hospitalization History SEE ABOVE SURGERY Hospitalization History cellulitis LLE 01/2023 appbackr Other Hospital Discharge instructions No data available for this section [facility] Discharge instructions Additional Instructions Take the prednisone twice a day for 5 days Take 1 hydrocodone every 6 hours for severe pain May use ice or warm moist heat Gentle stretching Continue your other medication The steroids can elevate your blood sugar so carefully watch her blood sugar in your diet Follow-up with family doctor and/or [facility] Return to the ER for worsening pain unable to walk fever or any other concerns [facility] Work Phone: Procmccg note No data available for this section [facility] Progrtfr note Author Silvio Yu [facility] July 13, 2022 9:24am Note Date/Time July 13, 2022 9:18am [facility] [place] [id number] Hem/Onc Follow Up Note - OP Signed Patient: Juan Bean JR MR#: [id number] : 1965 Acct:[id number] Age/Sex: 57 / M Type: REG RCR Copies to: MD Divya Caicedo [facility]~ Date of Service: 07/13/2022 Time of Service: 09:17 - Assessment & Plan (1) Squamous cell carcinoma, penis Plan: I reviewed the guidelines very closely in the situation as I do not have a lot of experience with early-stage penile cancers. Based on the NCCN guidelines if this is a T1 a lesion which would mean the pathologic grade is 1 or 2 and limited to the foreskin only he would be monitored if we were certain that margins were negative. ct c/a/p in july 2022 with no evidence of metastatic disease. comanaged by Dr. Av Rosales at [facility], plans additional biopsies under anesthesia for accurate staging. not yet scheduled. This would be considered a T1b lesion if pathologic grade 3 or 4 and he would beconsidered for inguinal lymph node dissection. Based on the Ki-67 of 85%, it is possible he is a T1b. Follow Up Instructions: f/u in about 2 months. make sure we thave notes from dr rosales at [facility] and potential surgical report and pathology at f/u. no labs. - History of Present Illness Chief Complaint: Patient is here for a 3 week follow up with CT scans and labs 06/30/22 for review. Also has outside notes for review. No concerns voiced at this time. HPI: 57-year-old male past medical history includes hypertension, hyperlipidemia, type 2 diabetes, low testosterone. Outpatient medications include glimepiride, hydrochlorothiazide, lisinopril, metformin, metoprolol, pioglitazone. His primary care provider is Divya Verdin. On May 31, 2022 Dr. Santana took him to the operating room for circumcision to correct phimosis with inability to retract the foreskin. After careful reading of the op report it did not seem like there was a significant concern for cancer. Pathology confirmed a moderately differentiated squamous cell carcinoma at least superficially invasive which is p16 positive. Adjacent to the tumor and there is a penile intraepithelial neoplasia with no definitive perineural or lymphovascular invasion seen. Ki-67 was noted to be 85%. 07/13/[address] av rosales at [facility]. recommended additional biopsy under anesthesia. ct c/a/p from 06/30 noted IMPRESSION: No malignant or metastatic disease. No acute findings. Hepatic steatosis. Cholelithiasis. The LEFT renal cyst. no new complaints. - Physical Exam ECOG PS:0 General : patient is alert and oriented to person place and time, no acute distress. Neck: no JVD or thyromegaly. Lymph: no cervical, supraclavicular, axillary adenopathy. Heart: regular rate and rhythm no murmurs rubs or gallops. Abdomen: soft tender centrally, nondistended, no hepatosplenomegaly. Lungs: clear to auscultation bilaterally. No wheezes, rales, rhonchi. Extremities: no clubbing cyanosis did not examine penis today. - Time with Patient Coordination of Care & Counseling Time: Greater than 50% of time spent with patient was for coordination of care (as documented) and [id number] counseling of patient and/or family. [facility] - Medical History Medical History: Medical History (Last Updated 06/22/22 @ 08:05 by Tatiana Brown) Back pain Chewing tobacco use Cholelithiasis Diabetes type 2 History of gout HTN (hypertension) Hyperlipemia Male circumcision 05/31/22 Pain in right leg Phimosis Scoliosis deformity of spine - Surgical History Surgical History: Surgical History (Last Reviewed 05/31/22 @ 12:06 by Pamela Machado LPN) History of tonsillectomy - Family History Family History: Family History (Last Reviewed 06/22/22 @ 08:08 by Tatiana Brown) Mother Heart attack Keri Gehrig disease Father Heart attack Renal disease Sister Cancer - Social History Smoking Status: Former smoker Substance Use Type: Alcohol Social History Comments: adult son stays with patient Additional Data - Additional Objective Data Height/Weight: Height 6 ft 1 in Weight 169.689 kg Vital Signs: 07/13/22 09:07 Temperature 98.2 F Pulse Rate [Right Brachial] 80 Respiratory Rate 20 Blood Pressure [Right Arm] 158/89 H 02 Sat by Pulse Oximetry 97 Oxygen Delivery Method Room Air - Lab Results Diagram of Most Recent CBC and CMP 06/30/22 09:52 06/30/22 09:52 - Home Medications and Allergies Allergies/Adverse Reactions: Allergies No Known Allergies Allergy (Verified 06/22/22 08:06) Home Medications: Home Medications amlodipine 5 mg tablet 5 mg PO QAM 05/17/22 [History Confirmed 07/13/22] ergocalciferol (vitamin D2) 1,250 mcg (50,000 unit) capsule 1,250 unit PO QWEEK 05/17/22 [History Confirmed 07/13/22] glimepiride 4 mg tablet 4 mg PO BID 05/17/22 [History Confirmed 07/13/22] lisinopril 20 mg tablet 20 mg PO QPM 05/17/22 [History Confirmed 07/13/22] lisinopril 20 mg-hydrochlorothiazide 25 mg tablet 1 tab PO QAM 05/17/22 [History Confirmed 07/13/22] meloxicam 15 mg tablet 15 mg PO DAILY 05/17/22 [History Confirmed 07/13/22] metformin 1,000 mg tablet 1,000 mg PO BID 05/17/22 [History Confirmed 07/13/22] metoprolol succinate 50 mg tablet,extended release 24 hr 50 mg PO QAM 05/17/22 [History Confirmed 07/13/22] pioglitazone 45 mg tablet 45 mg PO QAM 05/17/22 [History Confirmed 07/13/22] simvastatin 40 mg tablet 40 mg PO QPM 05/17/22 [History Confirmed 07/13/22] tizanidine 4 mg capsule (Zanaflex) 4 mg PO QPM PRN Pain 05/17/22 [History Confirmed 07/13/22] Dictated By: Silvio Yu II, DO DD/ 6 Signed By: <Electronically signed by Silvio Yu II, DO> 07/13/22923 [facility] Work Phone: Chief Complaint and Reason for Visit Chief Complaint Phimosis Chief Complaint Phimosis Phimosis squamous cell cancer of penis Reason for Visit Squamous cell carcin brendan, penis Chief Complaint rt hip pain, nki Family History Relationship Condition Age at Onset Recorded Date/T raghav Not Specified Myocardial infarction Unknown Amyotrophic lateral sclerosis Unknown father Myocardial infarction Unknown Disorder of kidney Unknown sister Malignant neoplasm Unknown Unknown Family Member Name Dates Details Family history of cardiovasc ular disease: Mother(V17.49, Z82.49) Status:Active Family history of diabetes m ellitus: Mother, Father, Brother(V18.0, Z83.3) Status:Active Family history of malignant neoplasm: Sister(V16.9, Z80.9) Status:Active Family history of amyotrophi c lateral sclerosis: Mother(V17.2, Z82.0) Status:Active Relationship Condition Age at Onset Recorded Date/T raghav Not Specified Myocardial infarction Unknown Amyotrophic lateral sclerosis Unknown father Myocardial infarction Unknown Disorder of kidney Unknown sister Malignant neoplasm Unknown father Hypertension Unknown family member Family history of other condition Unknow n Not Specified Unknown Diabetes mellitus Unknown Type 2 diabetes mellitus Unknown sister Unknown Advance Directives Advance Directive Response Recorded Date/ Time Advance Directives No May 14, 023 10:32am Summary Purpose Reason for Referral Specialty Diagnoses / Procedures Referred By Contac t Referred To Contact Diagnoses Morbid obesity (CMS/HCC) Divya Verdin PA [address] [place] [address] Referral ID Status Reason Start Date Expiration Date V isits Requested Visits Authorized [id number] Pending Review 1 1 Additional Source Comments Patient Care team informatio n (unrecognized section and content) Team Status: Active Member Role Status Dates Divya Verdin PA-C Primary Care Provider Active Team Status: Inactive Member Role Status Dates Timmy Santana MD Attending Provider Active Divya Verdin PA-C Primary Care Provider Active Field Marketing Director Relationship Specialty Start Date End Date Daniel Leonard MD PCP - General Family Medicine 01/10/13 Team Status: Active Member Role Status Dates Divya Verdin PA-C Primary Care Provider Active Silvio Yu II, DO Attending Provider Active Timmy Santana MD Referring Provider Active Field Marketing Director Relationship Specialty Start Date End Date Daniel Leonard MD PCP - General Family Medicine 01/10/13 Field Marketing Director Relationship Specialty Start Date End Date Divya Verdin [address] [place] [address] PCP - General Family Medicine 07/27/22 Team Status: Inactive Member Role Status Dates MEGGAN Lawler-C Primary Care Provider Active Roya Childs , SPA RECEPTIONIST-BC Emergency Provider Active Field Marketing Director Relationship Specialty Start Date End Date Divya Verdin PA [address] [place] [address] PCP - Medical [employer] 08/05/22 Manish Rodriguez MD [address] [place] [address] PCP - General Internal Medicine 07/13/22 Field Marketing Director Relationship Specialty Start Date End Date Divya Verdin PA [address] [place] [address] PCP - [facility] [employer] 08/05/22 Manish Rodriguez MD [address] [place] [address] PCP - General Internal Medicine 07/13/22 Field Marketing Director Relationship Specialty Start Date End Date Manish Rodriguez MD [address] [place] [address] PCP - General Internal Medicine 07/13/22 Manish Rodriguez MD [address] [place] [address] PCP - Medical [employer] 03/07/17 03/06/99 Field Marketing Director Relationship Specialty Start Date End Date Manish Rodriguez MD [address] [place] [address] PCP - General Internal Medicine 07/13/22 Manish Rodriguez MD [address] [place] [address] PCP - [facility] [employer] 03/07/17 03/06/99 Field Marketing Director Relationship Specialty Start Date End Date Manish Rodriguez MD [address] [place] [address] PCP - General Internal Medicine 07/13/22 Manish Rodriguez MD [address] [place] [address] PCP - [facility] [employer] 03/07/17 03/06/99 Field Marketing Director Relationship Specialty Start Date End Date Manish Rodriguez MD [address] [place] [address] PCP - General Internal Medicine 07/13/22 Manish Rodriguez MD [address] [place] [address] PCP - [facility] [employer] 03/07/17 03/06/99 Field Marketing Director Relationship Specialty Start Date End Date Manish Rodriguez MD [address] [place] [address] PCP - General Internal Medicine 07/13/22 Manish Rodriguez MD [address] [place] [address] PCP - [facility] [employer] 03/07/17 03/06/99 Field Marketing Director Relationship Specialty Start Date End Date Manish Rodriguez MD [address] [place] [address] PCP - General Internal Medicine 07/13/22 Manish Rodriguez MD [address] [facility] [address] [place] [address] PCP - Medical [employer] 03/07/17 03/06/99 Goals (unrecognized section and content) Goals may be documented in a n alternate section (unrecognized sect ion and content) No Status Records FoundNo Status Records FoundNo Status Records FoundNo Status Records FoundNo Status Records FoundNo Status Records Found INFORMATION SOURCE (unrecogn ized section and content) DATE CREATED AUTHOR 05/21/2022 [facility] DATE CREATED AUTHOR AUTHOR'S ORGANIZ ATION 05/21/2022 [employer] DATE CREATED AUTHOR AUTHOR'S ORGANIZ ATION 08/19/2022 [facility] DATE CREATED AUTHOR AUTHOR'S ORGANIZ ATION 11/10/2022 [facility] DATE CREATED AUTHOR AUTHOR'S ORGANIZ ATION 08/19/2023 [facility] DATE CREATED AUTHOR AUTHOR'S ORGANIZ ATION 12/30/2023 [facility] EPIC Source Comments (unrecognize d section and content) In the event this informatio n is protected by the Federal Confidentiality of Alcohol and Drug Abuse Patient Records regulations: The Federal rules restrict any use of the information to criminally investigate or prosecute any alcohol or drug abuse patient.[facility] the event this information is protected by the Federal Confidentiality of Alcohol and Drug Abuse Patient Records regulations: The Federal rules restrict any use of the information to criminally investigate or prosecute any alcohol or drug abuse patient.[facility] the event this information is protected by the Federal Confidentiality of Alcohol and Drug Abuse Patient Records regulations: The Federal rules restrict any use of the information to criminally investigate or prosecute any alcohol or drug abuse patient.[facility] Reason for Visit (unrecogniz ed section and content) Reason Comments New Patient Reason Comments Results Reason Onset Date Comments Med Refill 12/27/2023 Reason Comments Med Refill Reason Onset Date Comments Med Refill 10/24/2023 [facility] [place] FOR RECORDS PERTAINING TO PATIENTS WHO ARE OR HAVE BEEN ENROLLED IN A CHEMICAL DEPENDENCY/SUBSTANCEABUSE PROGRAM, SOME INFORMATION MAY BE OMITTED. This clinical summary was aggregated from multiple sources. Caution should be exercised in using it in the provision of clinical care. This summary normalizes information from multiple sources, and as a consequence, information in this document may materially change the coding, format and clinical context of patient data. In addition, data may be omitted in some cases. CLINICAL DECISIONS SHOULD BE BASED ON THE PRIMARY CLINICAL RECORDS. [facility]. provides no warranty or guarantee of the accuracy or completeness of information in this document.
[2024-03-07 16:17] LABS: Influenza Virus A Antigen Negative; Influenza Virus B Antigen Negative
[2024-03-07 16:18] LABS: Internal Control Within Normal Limits; Respiratory Syncytial Virus Not Detected (NOT DETECTE); SARS-CoV-2 Ag NEGATIVE (NEGATIVE)
[2024-03-07] MEDS: 0.9 % SODIUM CHLORIDE 1,000 ML 1000 ML IV ×2 (16:31→19:36)
[2024-03-07] MEDS: ACETAMINOPHEN 500 MG TABLET 1000 MG PO ×2 (16:31→22:49)
[2024-03-07] MEDS: ALBUTEROL SULFATE 2.5 MG/3 ML VIAL NEB IH (16:39)
[2024-03-07 16:55] LABS: Hematocrit 39.8 % (42.0-54.0); Hemoglobin 13.2 g/dL (14.0-18.0); Mean Corpuscular HGB Conc 33.2 g/dL (29.9-35.2); Mean Corpuscular Hemoglobin 31.2 pg (25.9-34.0); Mean Corpuscular Volume 94.1 fL (80.0-94.0); Mean Platelet Volume 10.2 fL (9.5-13.5); Platelet Count 170 10^3/uL (150-450); Red Blood Count 4.23 10^6/uL (4.70-6.10); Red Cell Distribution Width 13.5 % (11.0-15.0); White Blood Count 11.7 10^3/uL (4.0-11.0)
[2024-03-07 16:58] LABS: PCO2 VBG 52.2 mmHg (40.0-52.0); pH VBG 7.419 (7.330-7.430)
[2024-03-07 17:32] LABS: Alanine Aminotransferase 40 U/L (16-63); Albumin Globulin Ratio 0.9; Albumin Level 3.5 g/dL (3.4-5.0); Alkaline Phosphatase 92 U/L (46-116); Anion Gap 11.7; Aspartate Amino Transferase 28 U/L (15-37); BUN Creatinine Ratio 14.2; Calcium 9.6 mg/dL (8.5-10.1); Carbon Dioxide 34.3 mmol/L (21.0-32.0); Chloride 97 mmol/L (98-107); Estimated GFR (African America >60 (>=60 mL/min/1.73m^2); Estimated GFR (Non-African Ame >60 (>=60 mL/min/1.73m^2); Glucose 240 mg/dL (74-106); Sodium 139 mmol/L (136-145); Total Protein 7.5 g/dL (6.4-8.2); Troponin I High Sensitivity 17.3 pg/mL (4.0-76.1)
[2024-03-07 17:35] LABS: Lactate/Lactic Acid 2.8 mmol/L (0.4-2.0)
[2024-03-07 17:46] LABS: Band Neutrophils Absolute 0.2 10^3/uL (0.0-0.3); Basophils Abs Manual 0.23 10^3/uL (0.00-0.10); Segmented Neut Absolute Manual 9.82 10^3/uL (1.4-6.5)
[2024-03-07 18:06] LABS: INR 1.06; Prothrombin Time 11.2 sec (9.0-11.6)
--- NOTE | 2024-03-07 18:09 | CT_ITS ---
[address] [address] Patient Name: JUAN VILLAVICENCIO MRN: [id number] date: 1965 Sex: M Assigned Patient Location: ED.MAIN Current Patient Location: ED.MAIN Accession/Order Number: [id number] Exam Date: 03/07/2024 18:48 Report Date: 03/07/2024 19:53 At the request of: RAVINDRA SANCHEZ Procedure: CT chest w con EXAMINATION: CT chest w con HISTORY: Shortness of breath, fever COMPARISON: No relevant comparison available. TECHNIQUE: Multi-planar CT images were obtained without and/or with IV contrast as indicated by examination type. Axial, Coronal, and Sagittal images. Dose reduction techniques were achieved by using automated exposure control and/or adjustment of mA and/or kV according to patient size and/or use of iterative reconstruction technique. FINDINGS: LUNGS: Trace amount of basilar discoid atelectasis or scarring. Infectious infiltrates are felt less likely. PLEURA: No mass, effusion, or pneumothorax. VASCULATURE: No abnormality. ROMULO: No mass or adenopathy. MEDIASTINUM: No mass or adenopathy. CARDIAC: No enlargement or pericardial thickening.. Coronary artery calcifications: AORTA: No aneurysm or dissection. CHEST WALL: No mass or axillary adenopathy. BONES: No bone lesion or fracture. LIMITED ABDOMEN: No suspicious findings Limited images of the upper abdomen. OTHER: Negative. CT/CT chest w con IMPRESSION: 1. Trace amount of bibasilar discoid atelectasis versus scarring, or possibly very mild infiltrates. Electronically authenticated by: LYLY RUVALCABA Date: 03/07/2024 19:53
[2024-03-07] MEDS: PIPERACILLIN SODIUM/TAZOBACTAM 4.5 GM in 0.9 % SODIUM CHLORIDE 50 ML IV (19:36)
[2024-03-07] MEDS: ENOXAPARIN SODIUM 100 MG/ML SYRINGE 170 MG SUBQ (19:38)
[2024-03-07 20:17] LABS: Lactate/Lactic Acid 2.4 mmol/L (0.4-2.0)
--- OUTSIDE RECORDS SUMMARY | 2024-03-07 21:01 | XMS_ITS | CCD ---
Author Organization [facility] Care Team Providers Care Flare Stitcher Name Role Phone MANISH RODRIGUEZ Primary Care Physician MD Timmy Santana Attending Provider MIKEY Verdin Primary Care Provider Divya Verdin Unavailable Unavailable Unavailable Unavailable Ritesh Ordonez Attending Unavailable Lambert, Mrs. Stokes Dona Primary Care Unav ailable Dr. Timmy Santana Referring Unavailab Daniel Huerta MD Primary Care Provider DO Silvio Yu II Attending Provider MD Timmy Santana Referring Provider DIVYA VERDIN Primary Care Physician Divya Verdin Primary Care Provider DANIEL LEONARD Primary Care Unavailable VÍCTRO ROSALES Attending UnavailDANIEL Echavarria Primary Care Unavailable VÍCTOR ROSALES Attending UnavailVÍCTOR Quiñones Admitting UnavailDIVYA Mascorro Primary Care Unavailable Timmy SANTANA Attending Unavailable Timmy SANTANA Attending Unavailable DIVYA VERDIN Referring Unavailable Timmy SANTANA Attending Unavailable Timmy SANTANA Attending Unavailable DIVYA VERDIN Primary Care Unavailable Timmy SANTANA Attending Unavailable DIVYA VERDIN Primary Care Unavailable MIKEY Verdin Primary Care Provider Amadeo, EMPLOYEE COMMUNICATIONS COORDINATOR-BC Roya E Emergency Provider Osiel Lewis Unavailable Divya Thornton Unavailable Manish Rodriguez MD Primary Care Provider [phone] Roya Childs Admitting Unavailable Roya Childs Attending Unavailable Divya Verdin Primary Care Unavailable Divya Verdin Primary Care Unavailable Osiel Lewis Admitting Unavailable Osiel Lewis Attending Unavailable Manish Rodriguez MD Unavailable [phone] DIVYA VERDIN Attending Unavailable DIVYA VERDIN Attending Unavailable DIVYA VERDIN Attending Unavailable DIVYA VERDIN Attending Unavailable DIVYA VERDIN Attending Unavailable Allergies Allergy Classification Reported Allergen(s) Allergy Type Date of Onset Reaction(s) Facility (1 source) No Known Medication Allergies; Translations: [No Known Medication Allergies] Propensity to adverse reactions (disorder) [facility] Repository Medications Current Medications Medication Drug [...] diabetes mellitus with other specified complication (CMS/FORMERLY [facility]) 1 each Daily Test glucose once a day. 08/24/2023 Active Start: 02-02-2023 Blood Glucose Monitoring Suppl (D-Care Glucometer) w/Device kit Indications: Type 2 diabetes mellitus without complication, without long-term current use of insulin ([facility]) 1 each in the morning. Test glucose [...] every week ergocalciferol (Vitamin D2) 1.25 MG (54321 UT) capsule Indications: Vitamin D deficiency TAKE 1 CAPSULE BY MOUTH once a week 12 capsule 3 09/06/2023 Active Start: 08-12-2022 take 1 capsule by mo [facility] every week ergocalciferol (Vitamin D2) 1.25 MG (20516 UT) capsule Indications: Vitamin D deficiency Take [...] every wee k Vitamin D3 1.25 MG (13115 UT) Oral Capsule one tablet weekly Quantity: [...] Comment on above: Take [address] [facility] twice daily. 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] Episodic Other endocrine [...] obesity with BMI of 45.0-49.9, adult (FORMER[facility])] Onset: 07-12-2022 Chronic Other nutritional; endocrine; and metabolic disorders (1 source) Body mass index (BMI) 45.0-49.9, adult; Translations: [Morbid obesity with BMI of 45.0-49.9, adult ([facility])] Onset: 07-12-2022 Chronic Other nutritional; endocrine; and [...] 12-28-2023 HbA1c (Bld) [Mass fraction] 7.3 % [facility] No Panel Informationon 12-27 Interpretation and review of laboratory results Abnormal [facility] XR pre/post mri xrayon 01-28 XR pre/post mri xray [facility] [place] [address] MRI Report Signed Patient: Juan Bean JR MR#: [id number] : 1965 Acct:[id number] Age/Sex: 58 / M ADM Date: 01/28/23 Loc: MR Room: Type: [facility] Attending Dr: Osiel Lewis MD Copies to: Osiel Lewis MD Ordering Provider: Osiel Lewis MD Date of Service: 01/28/23 MR/MR lumbar spine wo con: M54.16 ([id number]) XR/XR pre/post mri xray: PRE MRI LUMBAR [...] Tyrese Coon M.D.01/28/2023 9:08 PM Dictation Location: [place] [address] Transcribed By: [facility] 01/28/232107 Dictated By: Tyrese Coon II, MD 01/28/232056 Signed By: 01/28/232107 [place] [facility] CT hip RT wo [facility] 3 CT hip RT [place] [facility] [place] [address] CT Scan Report Signed Patient: Juan Bean JR MR#: [id number] : 1965 Acct:[id number] Age/Sex: 57 / M ADM Date: 12/01/22 Loc: ER Room: Type: [facility] ER Attending Dr: Copies to: POLO Andrade [...] Tyrese Coon M.D.12/01/2022 10:10 AM Dictation Location: [place] [address] Transcribed By: [facility] 12/01/22 1010 Dictated By: Tyrese Coon II, MD 12/01/22 1002 Signed By: 12/01/22 1010 Normal [facility] Pre-Certification Formon Pre-Certification Form [id number]#1.00CD:127 Normal [facility] RAD - CT Reporton 09-06-2022 RAD - CT Report [id number]#1.00CD:127 [facility] Consultation Noteon 08-27-19 Consultation Note [id number]#[id number]:127 [facility] CNPNon 08-19-2022 CNPN Telephone (UROLMN) -- JUAN BEAN ([id number]) 1965 M Date Time Provider Department 08/19/22 [...] Encounter Status:Closed by VÍCTOR ROSALES on 08/19/22 [facility] ANES POSTPROC EVALon 023 ANES POSTPROC EVAL HNO ID: [id number] Author: Brennan Henley MD Service: ? Author Type: Anesthesiologist Type: Anesthesia Postprocedure Evaluation Filed: 08/13/2022 5:07 PM Note Text: POST ANESTHESIA EVALUATION NOTE : 1965 Procedure Summary Date: 08/13/22 Room / Location: [address] [facility] Anesthesia Start: 1448 Anesthesia Stop: [...] August 13, 2022 TIME: 5:06 PM CSN: [id number] Normal [facility] ANES PRE-OPon 08-13-2022 ANES PRE-OP HNO ID: [id number] Author: Brennan Henley MD Service: ? Author Type: Anesthesiologist Type: Anesthesia Preprocedure Evaluation Filed: 08/13/2022 1:52 PM Note Text: ANESTHESIOLOGY DAY OF SURGERY NOTE : 1965 Procedure Information Date/Time: 08/13/22 1310 Procedures: BIOPSY PENIS (Penis) EXCISION BENIGN LESION GENITALS 3.1 TO 4.0 CM (Penis) [facility] Sur[facility]: Víctor Rosales MD Estimated body mass [...] and consent discussed: yes. Patient / Responsible Alliance Party agrees to proceed: yes Patient / [...] August 13, 2022 TIME: 1:51 PM CSN: [id number] [facility] BRIEF OP NOTon 08-13-2022 BRIEF OP NOT HNO ID: [id number] Author: Vinh Montague MD Service: Urology Author Type: Resident Type: Brief Op Note Filed: 08/13/2022 4:03 PM Note Text: UROLOGY SERVICE BRIEF OPERATIVE NOTE LOG ID: [id number] Surgery/Procedure Date: 08/13/2022 Incision/Procedure Start Time: 3:30 PM Incision Close/Procedure End Time: 3:57 PM Patient Age: [age] year old Surgeon(s)/Proceduralist(s ) and Mattress Renovator(s): Surgeon(s) and Role: * Víctor Rosales MD [...] 2022 TIME: 4:00 PM PAGER/CONTACT #: Normal [facility] CNCOon 08-13-2022 CNCO Letter Text Normal [facility] HISTORY PHYSICALon HISTORY PHYSICAL HNO ID: [id number] Author: Hollis Lugo MD Service: Urology Author [...] Hollis Lugo MD, MS Urology PGY-2 Pager: [phone] After Hours [facility] Urology Service Pager: [phone] [facility] NURSING PROGon 08-13-2022 NURSING PROG HNO ID: [id number] Author: Fany Dorado RN Service: ? 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 Bean [id number], needs letter written not to work for at least one week. Thanks Fany [phone] This note was completed by: Fany Dorado RN [facility] NURSING PROG HNO ID: [id number] Author: Fany Dorado RN Service: ? Author Type: Registered Nurse Type: Nursing Progress Note Filed: 08/13/2022 7:10 PM Note Text: Nursing Progress Note Topic of Note: Maria D Bean [id number] Dr. Rosales text paged: Mr. 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 Needs work excuse if can't go to work. Please call [phone]. Fany This note was completed by: Fany Dorado RN [facility] NURSING PROG HNO ID: [id number] Author: Fany Dorado RN Service: ? Author Type: Registered Nurse Type: Nursing Progress Note Filed: 08/13/2022 7:06 PM Note Text: Nursing Progress Note Topic of Note: Incidental Juan Pack Reader [phone] Dr. Montague (urology surgical scrub technologist) text paged: good afternoon, Mr. Bean M023-34, ? re: work, lifting, [place] [phone]? Thanks, Fany [phone] This note was completed by: Fany Dorado RN [facility] NURSING PROG HNO ID: [id number] Author: Fany Dorado RN Service: ? Author [...] None Electronically Signed By: Fany Dorado RN [facility] NURSING PROG HNO ID: [id number] Author: Marisel Jones, ОЛЕГ Service: Nursing Author Type: Registered Nurse Type: Nursing Progress Note Filed: 08/13/2022 12:06 PM Note Text: Other: [facility] Nursing Note Dr. Henley, anesthesia, paged M23-38, OR , [facility] [place], [facility] patient's pre-op blood sugar is 197. Held PO diabetic meds per pre-op instructions. Thanks, Karla Hylton288 Urology resident paged [phone]) for updated HANDP. [id number], OR 21 - [facility], Patient's HANDP needs updated, > 30 days. Thanks, Karla Manzanares [facility] OPERATIVE NOon 08-13-2022 OPERATIVE NO HNO ID: [id number] Author: Víctor Rosales MD Service: Urology Author Type: Physician Type: Operative Report Filed: 08/16/2022 9:36 AM Note Text: UROLOGY OPERATIVE REPORT LOG ID: [id number] Surgery/Procedure Date: 08/13/2022 Incision/Procedure Start Time: 3:30 PM Incision Close/Procedure End Time: 3:57 PM Surgeon(s)/Proceduralist(s ) and Mattress Renovator(s): Surgeon(s) and Role: * Víctor Rosales MD [...] A glans traction suture was placed to cork insulator helper in exposure of the penis. Exam [...] procedure with (more content not included)... Normal [facility] SURGICAL PATHOLOGYon 023 CASE REPORT [facility] Comment on above: Order Comment: Speci men Type: TISSUE SPECIMENOrdering Facility: [facility] Address: [address] [place] [id number] Result Comment: Surg [facility] Pathology Report Case: [id number] Authorizing Provider: Víctor Rosales MD Collected: 08/13/2022 03:33 PM Ordering Location: Admitting Received: 08/13/2022 04:30 PM Pathologist: Nazia Dunne MD Specimens: A) - PENIS BIOPSY, distal ventral penile lesion B) - PENIS BIOPSY, left dorsal glans penis C) - PENIS BIOPSY, dorsal distal penile skin Performed By: #### S ####[facility] LABCLIA [id number] [place] [address] [place] CLINICAL HISTORY Normal [facility] Comment on above: Order Comment: Speci men Type: TISSUE SPECIMENOrdering Facility: [facility] Address: [address] [place] [address] Result Comment: 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 D istal ventral penile lesion, excision: -Lichen sclerosus. -Skin with ulceration, acute and chronic inflammation and reactive changes. -Negative for malignancy. B. Left dorsal glans penis, biopsy: -Lichen sclerosus. -Negative for malignancy. C. Distal dorsal penile skin, biopsy: -Benign skin with acute and chronic inflammation. Performed By: #### S ####[facility] LABIA [id number] [address] [place] FINAL PERFORMING LAB Normal [facility] Comment on above: Order Comment: Speci men Type: TISSUE SPECIMENOrdering Facility: [facility] Address: [address] [place] [address] Result Comment: Diag nostic interpretation performed at [facility], [address] [place] [address] CLIA# [id number] Signals Intelligence Analysis Manager: Antonio Peters M.D. Performed By: #### S ####[facility] LABCLIA [id number] [place] [address] [place] GROSS DESCRIPTION A. PENIS BIOPSY Normal [facility] Comment on above: Order Comment: Speci men Type: TISSUE SPECIMENOrdering Facility: [facility] Address: [address] [facility] [place] [place] [address] Result Comment: Rece ived in formalin labeled [...] 2022 1:19 PM Gross examination performed at [facility], [address] [place] [address] Performed By: #### S ####[facility] LABCLIA [id number] [facility] [id number] [place] Bernadette 07-28-2022 DANGELO Telephone (DARLING) -- JUAN BEAN ([id number]) 1965 M Date Time Provider Department 07/28/22 [...] Fully Assessed Reason for Visit: Patient Question [1841] Cmt: Patient call with Marco Antonio Michael [...] Encounter Status:Closed by NEEMA ARIAS on 07/28/22 [facility] 07-27-2022 CNPN Telephone (UROLBE) -- JUAN BEAN ([id number]) 1965 M Date Time Provider Department 07/27/22 MARCO ANTONIO MICHAEL UROLBE During your visit today, we recorded the following information about you: Marco Antonio Michael APRN.[employer] 07/27/2022 1:33 PM Signed ----- Message from [...] Please advise and thank you, Atiya Michael APRN.PATTERN HANGER 07/27/2022 1:41 PM Signed Called Juan Bean. [...] questions at this time. Marco Antonio Michael, SHAHZAD.PATTERN HANGER Allergies As of Date: 07/27/2022 (No Known [...] Status:Closed by MARCO ANTONIO MICHAEL on 07/27/22 [facility] Consultation Noteon 07-19-19 Consultation Note [id number]#1.00CD:127 [facility] Consultation Noteon 07-15-19 Consultation Note [id number]#1.00CD:127 [facility] CNOVon 07-12-2022 CNOV Office Visit (UROLMN ) -- JUAN BEAN ([id number]) 1965 M Date Time Provider Department 07/12/22 8:30 AM VÍCTOR ROSALES During your visit today, we recorded the following information about you: Pulse Blood pressure Weight Height 92/minute 162/81 161.5 kg 1.854 m Víctor Rosales MD 07/12/2022 9:40 AM Signed [facility] NEW PATIENT HISTORY AND PHYSICAL [...] for internal providers or letter via the [employer] for external providers. ====== HISTORY [...] signed = (more content not included)... Normal [facility] URINALYSIS, REFLEX MICROSCOP ICon 07-12-2022 Bilirubin Ql (U) Negative Normal Negative [facility] Comment on above: Order Comment: Speci men Type: URINE SPECIMENOrdering Facility: [facility] Address: [address] [place] [address] Performed By: #### L [id number] ####[facility] LABCLIA [id number] [place] [address] [place] Clarity (Unsp spec) Clear Normal Clear [facility] Comment on above: Order Comment: Speci men Type: URINE SPECIMENOrdering Facility: [facility] Address: [address] [place] [address] Performed By: #### L [id number] ####[facility] LABCLIA [id number] [place] [address] [place] Color (U) Light Yellow Normal Yellow [facility] Comment on above: Order Comment: Speci men Type: URINE SPECIMENOrdering Facility: [facility] Address: [address] [place] [address] Performed By: #### L [id number] ####[facility] LABCLIA [id number] [place] [address] [place] Glucose Test strip (U) [Mass/Vol] Negative Normal Trace, Negative [facility] Comment on above: Order Comment: Speci men Type: URINE SPECIMENOrdering Facility: [facility] Address: [address] [place] [address] Performed By: #### L [id number] ####[facility] LABCLIA [id number] [place] [address] [place] Hemoglobin Ql (U) Negative Normal Negative, Trace [facility] Comment on above: Order Comment: Speci men Type: URINE SPECIMENOrdering Facility: [facility] Address: [address] [place], [place] [address] Performed By: #### L [id number] ####[facility] LABCLIA [id number] [place] [address] [place] Ketones Ql (U) Negative Normal Negative, Trace [facility] Comment on above: Order Comment: Speci men Type: URINE SPECIMENOrdering Facility: [facility] Address: [address] Performed By: #### L [id number] ####[facility] LABCLIA [id number] [place] [address] [place] Leukocyte esterase Test strip Ql (U) 75 Doreen/uL Abnormal Negative, 25 Doreen/uL [facility] Comment on above: Order Comment: Speci men Type: URINE SPECIMENOrdering Facility: [facility] Address: [address] [place] [address] Performed By: #### L [id number] ####[facility] LABIA [id number] [place] [address] [place] Nitrite Ql (U) Negative Normal Negative [facility] Comment on above: Order Comment: Speci men Type: URINE SPECIMENOrdering Facility: [facility] Address: [address] [place], [place] [address] Performed By: #### L [id number] ####[facility] LABIA [id number] [place] [address] [place] pH (U) 5.5 [pH] Normal 5.0-8.0 [facility] Comment on above: Order Comment: Speci men Type: URINE SPECIMENOrdering Facility: [facility] Address: [address] [place], [place] [address] Performed By: #### L [id number] ####[facility] LABIA [id number] [place] [address] [place] Protein (U) [Mass/Vol] Negative Normal Trace , Negative [facility] Comment on above: Order Comment: Speci men Type: URINE SPECIMENOrdering Facility: [facility] Address: [address] [place], [place] [address] Performed By: #### L [id number] ####[facility] LABIA [id number] [place] [address] [place] Specific gravity (U) [Rel density] 1.018 Normal 1.005-1.030 [facility] Comment on above: Order Comment: Speci men Type: URINE SPECIMENOrdering Facility: [facility] Address: [address] [place], [place] [address] Performed By: #### L [id number] ####[facility] LABIA [id number] [place] [address] [place] Urobilinogen Ql (U) Negative Normal Negative [facility] Comment on above: Order Comment: Speci men Type: URINE SPECIMENOrdering Facility: [facility] Address: [address] [place] [address] Performed By: #### L [id number] ####[facility] LABCLIA [id number] [facility]ITAL[facility] [id number] OF [facility] Bilirubin Ql (U) Negative Negative [facility] Clarity (Unsp spec) Clear Clear [facility] Color (U) Light Yellow Yellow [facility] Glucose Test strip (U) [Mass/Vol] Negative Trace, Negative [facility] Hemoglobin Ql (U) Negative Negative, Trace [facility] Ketones Ql (U) Negative Negative, Trace [facility] Leukocyte esterase Test strip Ql (U) 75 Doreen/uL Abnormal Negative, 25 Doreen/uL [facility] Nitrite Ql (U) Negative Negative [facility] pH (U) 5.5 [pH] 5.0 - 8.0 [facility] Protein (U) [Mass/Vol] Negative Trace , Negative [facility] Specific gravity (U) [Rel density] 1.018 1.005 - 1.030 [facility] Urobilinogen Ql (U) Negative Negative [facility] Pathology Noteon 07-06-2022 Pathology Note [id number]#[id number]:127 Normal [facility] Alanine aminotransferase [En zymatic activity/volume] in Serum or PlasmaOrdered By: Silvio Yu on 06-30-2022 ALT [Catalytic activity/Vol] 20 U/L 7-52 [facility] Albumin [Mass/volume] in Ser um or Plasma by Bromocresol green (BCG) dye binding methoOrdered By: Silvio Yu on 06-30-2022 Albumin BCG dye [Mass/Vol] 4.5 g/dL 3.5-5.7 [facility] Alkaline phosphatase [Enzyma tic activity/volume] in Serum or PlasmaOrdered By: Silvio Yu on 06-30-2022 ALP [Catalytic activity/Vol] 57 U/L 34-104 [facility] Aspartate aminotransferase [ Enzymatic activity/volume] in Serum or PlasmaOrdered By: Silvio Yu on 06-30-2022 AST [Catalytic activity/Vol] 17 U/L 13-39 [facility] Basophils Auto (Bld) [#/Vol] Ordered By: Silvio Yu on 06-30-2022 Basophils (Bld) [#/Vol] 0.0 10*3/uL 0.0-0.2 [facility] Basophils/100 WBC Auto (Bld) Ordered By: Silvio Yu on 06-30-2022 Basophils/100 WBC (Bld) 0.2 % . [facility] Bilirubin.total [Mass/volume ] in Serum or PlasmaOrdered By: Silvio Yu on 06-30-2022 Bilirubin [Mass/Vol] 0.7 mg/dL 0.3-1.0 [facility] Calcium [Mass/volume] in Ser um or PlasmaOrdered By: Silvio Yu on 06-30-2022 Calcium [Mass/Vol] 9.7 mg/dL 8.6-10.3 [facility] Carbon dioxide, total [Moles /volume] in Serum or PlasmaOrdered By: Silvio Yu on 06-30-2022 CO2 [Moles/Vol] 29.5 mmol/L 21.0-31.0 [facility] Chloride [Moles/volume] in S radha or PlasmaOrdered By: Silvio Yu on 06-30-2022 Chloride [Moles/Vol] 98 mmol/L 98-107 [facility] Creatinine [Mass/volume] in Serum or PlasmaOrdered By: Silvio Yu on 06-30-2022 Creatinine [Mass/Vol] 0.85 mg/dL 0.70-1.30 [facility] Eosinophils Auto (Bld) [#/Vo l]Ordered By: Silvio Yu on 06-30-2022 Eosinophils (Bld) [#/Vol] 0.1 10*3/uL 0.0-0.45 [facility] Eosinophils/100 WBC Auto (Bl d)Ordered By: Silvio Yu on 06-30-2022 Eosinophils/100 WBC (Bld) 1.3 % . [facility] Erythrocyte distribution wid th Auto (RBC) [Ratio]Ordered By: Silvio Yu on 06-30-2022 Erythrocyte distribution width (RBC) [Ratio] 13.8 % 12.0-14.8 [facility] Globulin Calc (S) [Mass/Vol] Ordered By: Silvio Yu on 06-30-2022 Globulin (S) [Mass/Vol] 3.1 g/dL [facility] Glucose [Mass/volume] in Ser um or PlasmaOrdered By: Silvio Yu on 06-30-2022 Glucose [Mass/Vol] 154 mg/dL 70-100 [facility] Comment on above: ADA recommended refe rence rangeRandom Glucose Reference Range is dependent on time and content of last meal. Glucose of more than 200 mg/dL in a nonstressed, ambulatory subject supports the diagnosis of Diabetes Mellitus. Hematocrit Auto (Bld) [Volum e fraction]Ordered By: Silvio Yu on 06-30-2022 Hematocrit (Bld) [Volume fraction] 43.8 % 38.8-50.0 [facility] Hemoglobin [Mass/volume] in BloodOrdered By: Silvio Yu on 06-30-2022 Hemoglobin (Bld) [Mass/Vol] 14.7 g/dL 13.0-17.0 [facility] Leukocytes [#/volume] correc mariah for nucleated erythrocytes in Blood by Automated counOrdered By: Silvio Yu on 06-30-2022 WBC corrected for nucl RBC Auto (Bld) [#/Vol] 8.5 10*3/uL 4.1-10.5 [facility] Lymphocytes Auto (Bld) [#/Vo l]Ordered By: Silvio Yu on 06-30-2022 Lymphocytes (Bld) [#/Vol] 1.3 10*3/uL 1.00-4.8 [facility] [facility] Lymphocytes/100 WBC Auto (Bl d)Ordered By: Silvio Yu on 06-30-2022 Lymphocytes/100 WBC (Bld) 15.0 % . [facility] MCH Auto (RBC) [Entitic mass ]Ordered By: Silvio Yu on 06-30-2022 MCH (RBC) [Entitic mass] 30.4 pg 27.5-35.2 [facility] MCHC Auto (RBC) [Mass/Vol]Or dered By: Silvio Yu on 06-30-2022 MCHC (RBC) [Mass/Vol] 33.6 g/dL 32.5-35.6 [facility] MCV Auto (RBC) [Entitic vol] Ordered By: Silvio Yu on 06-30-2022 MCV (RBC) [Entitic vol] 90.6 fL 83.5-101 [facility] Monocytes Auto (Bld) [#/Vol] Ordered By: Silvio Yu on 06-30-2022 Monocytes (Bld) [#/Vol] 0.7 10*3/uL 0.0-0.8 [facility] Monocytes/100 WBC Auto (Bld) Ordered By: Silvio Yu on 06-30-2022 Monocytes/100 WBC (Bld) 8.8 % . [facility] Neutrophils Auto (Bld) [#/Vo l]Ordered By: Silvio Yu on 06-30-2022 Neutrophils (Bld) [#/Vol] 6.3 10*3/uL 1.8-7.7 [facility] Neutrophils/100 WBC Auto (Bl d)Ordered By: Silvio Yu on 06-30-2022 Neutrophils/100 WBC (Bld) 74.7 % . [facility] No Panel InformationOrdered By: Silvio Yu on 06-30-2022 Estimated GFR (CKD-EPI) > 60.0 mL/Min [facility] Creatinine Clearance (Chem 154.44 [facility] Nucleated erythrocytes [Pres ence] in Blood by Automated countOrdered By: Silvio Yu on 06-30-2022 Nucleated RBC Auto Ql (Bld) 0.1 /100{WBC} 0-0.5 [facility] Platelet mean volume Auto (B ld) [Entitic vol]Ordered By: Silvio Yu on 06-30-2022 Platelet mean volume (Bld) [Entitic vol] 8.3 fL 6.6-10.1 [facility] Platelets Auto (Bld) [#/Vol] Ordered By: Silvio Yu on 06-30-2022 Platelets (Bld) [#/Vol] 173 10*3/uL 150-450 [facility] Potassium [Moles/volume] in Serum or PlasmaOrdered By: Silvio Yu on 06-30-2022 Potassium [Moles/Vol] 4.1 mmol/L 3.5-5.1 [facility] Protein [Mass/volume] in Ser um or PlasmaOrdered By: Silvio Yu on 06-30-2022 Protein [Mass/Vol] 7.6 g/dL 6.4-8.9 [facility] RBC Auto (Bld) [#/Vol]Ordere d By: Silvio Yu on 06-30-2022 RBC (Bld) [#/Vol] 4.83 10*6/uL 3.90-5.60 [facility] Serum or plasma albumin/glob ulin mass ratioOrdered By: Silvio Yu on 06-30-2022 Albumin/Globulin [Mass ratio] 1.5 {ratio} [facility] Serum or plasma anion gap de terminationOrdered By: Silvio Yu on 06-30-2022 Anion gap [Moles/Vol] 12.6 mmol/L 6.0-15.0 [facility] Serum or plasma carcinoembry onic antigen measurement (mass/volume)Ordered By: Silvio Yu on 06-30-2022 Carcinoembryonic Ag [Mass/Vol] 1.7 ng/mL 0.0-3.0 [facility] Sodium [Moles/volume] in Ser um or PlasmaOrdered By: Silvio Yu on 06-30-2022 Sodium [Moles/Vol] 136 mmol/L 136-145 [facility] Urea nitrogen [Mass/volume] in Serum or PlasmaOrdered By: Silvio Yu on 06-30-2022 Urea nitrogen [Mass/Vol] 20 mg/dL 7-25 [facility] WBC Auto (Bld) [#/Vol]Ordere d By: Silvio Yu on 06-30-2022 WBC (Bld) [#/Vol] 8.5 10*3/uL 4.1-10.5 [facility] Pathology Noteon 06-28-2022 Pathology Note [id number]#1.00CD:127 Normal [facility] Pathology Noteon 06-24-2022 Pathology Note [id number]#1.00CD:127 Normal [facility] Physician Referralon 023 Physician Referral [id number]#1.00CD:127 Normal [facility] Pathology Noteon 06-23-2022 Pathology Note [id number]#1.00CD:127 Normal [facility] SURGICAL PATHOLOGY REFERENCE LAB CONSULTon 06-23-2022 CASE REPORT Normal [facility] Comment on above: Order Comment: Speci men Type: SLIDEOrdering Facility: [facility] Address: [address] [place], [place] [address] Result Comment: Surg ical Pathology Report Case: [id number] Authorizing Provider: Ritesh Calderon MD Collected: 06/23/2022 10:07 AM Ordering Location: [facility] Received: 06/23/2022 10:07 AM Pathologist: Shubham Pritchett MD, PhD Specimen: SLIDE(S), 3 SLIDES ([id number]) Performed By: #### L [id number] ####[facility] LABCLIA [id number] [place] [address] [place] CLINICAL HISTORY CONSULT REQUESTED [facility] Comment on above: Order Comment: Speci men Type: SLIDEOrdering Facility: [facility] Address: [address] [place] [address] Performed By: #### L [id number] ####[facility] LABCLIA [id number] [place] [address] [place] DIAGNOSIS COMMENT [facility] Comment on above: Order Comment: Speci men Type: SLIDEOrdering Facility: [facility] Address: [address] [place], [place] [address] Result Comment: Many thanks for sending in consultation this excision specimen from the penis of a 57-year-old male. Histologic sections demonstrate a keratinocytic neoplasm composed of full-thickness keratinocyte dysplasia with invasive irregular islands of atypical keratinocytes. These islands demonstrate marked cellular atypia and mitotic activity. Enclosed immunohistochemical stains are reviewed at the [facility]. A Ki-67 stain demonstrates an increased proliferative index amongst the lesional cells. A stain for p16 is diffusely positive in the dysplastic areas. These findings support the above diagnosis. Overall, I agree with Dr. 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 The squamous cell carcinoma involves the excision margins. Performed By: #### L [id number] ####[facility] LABCLIA [id number] [address] OF [facility] FINAL DIAGNOSIS Normal [facility] Comment on above: Order Comment: Speci men Type: SLIDEOrdering Facility: [facility] Address: [address] [place], [place] [address] Result Comment: A. Allegra clemons, foreskin, circumcision ( [id number], 06/01/2022) : -Invasive moderately differentiated squamous cell carcinoma, see comment. AF/CK 06/23/2022 Performed By: #### L [id number] ####[facility] LABCLIA [id number] [address] OF [facility] FINAL PERFORMING LAB Normal [facility] Comment on above: Order Comment: Speci men Type: SLIDEOrdering Facility: [facility] Address: [address] [place], [place] [address] Result Comment: Diag nostic interpretation performed at [facility], [address] [place] [address] CLIA# [id number] Signals Intelligence Analysis Manager: Antonio Peters M.D. Performed By: #### L [id number] ####[facility] LABCLIA [id number] [address] [address] [place] Consultation Noteon 06-23-19 Consultation Note [id number]#1.00CD:127 Normal [facility] Screenson 06-22-2022 Screens [id number]#1.00CD:127 Normal [facility] Patient Educationon 06-22-19 Patient Education Urology [...] shower gels that have fragrance. ? Take xlkq-hhf-vozxeyh and prescription medicines only as told by [...] 02/03/2018 (more content not included)... Normal [facility] Urology Office/Clinic Noteon 06-21-2022 Urology [...] URL In 2 months 08/21/[address] [place] [id number]- Additional Instructions: Patient Education Ramona Christiansen , [...] influenza virus vaccine, inactivated 12/06/2016 Recorded Normal [facility] Comment on above: Result Comment: Elec tronically Signed By: RHONDA PROCTOR, Timmy Howard\.br\Date and Time Signed: 06/21/22 09:30 EDT\.br\Electronically Co-Signed By: Ramona Yost MA\.br\Date and Time Co-Signed: 06/21/22 09:11 EDT Pathology Noteon 06-16-2022 Pathology Note [id number]#1.00CD:127 Normal [facility] Operative Reporton Operative Report [id number]#1.00CD:127 Normal [facility] Consultation Noteon 06-01-19 Consultation Note [id number]#1.00CD:127 [facility] Consultation Note [id number]#1.00CD:127 [facility] Glucose Glucometer (BldC) [M ass/Vol]Ordered By: Timmy Santana on 05-31-2022 Glucose [Mass/Vol] 176 mg/dL [facility] Comment on above: Random Glucose Refer ence Range is dependent on time and content of last meal. Glucose of more than 200 mg/dL in a nonstressed, ambulatory subject supports the diagnosis of Diabetes Mellitus. 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 Normal 71lbs Tobacco Screening.on 023 Adult depression screening assessment No [facility] [employer] DO Work Phone: Fall risk assessment c) Not medically indicated [facility] [employer] DO Work Phone: Tobacco use status CP b) No [facility] [employer] DO Work Phone: Activated partial thrombopla stin time (aPTT) in platelet poor plasma by coagulation aOrdered By: Timmy Santana on 05-17-2022 aPTT Coag (PPP) [Time] 31.0 s 25.1-36.5 [facility] Basophils Auto (Bld) [#/Vol] Ordered By: Timmy Santana on 05-17-2022 Basophils (Bld) [#/Vol] 0.0 10*3/uL 0.0-0.2 [facility] Basophils/100 WBC Auto (Bld) Ordered By: Timmy Santana on 05-17-2022 Basophils/100 WBC (Bld) 0.6 % . [facility] Calcium [Mass/volume] in Ser um or PlasmaOrdered By: Timmy Santana on 05-17-2022 Calcium [Mass/Vol] 9.5 mg/dL 8.6-10.3 [facility] Carbon dioxide, total [Moles /volume] in Serum or PlasmaOrdered By: Timmy Santana on 05-17-2022 CO2 [Moles/Vol] 27.9 mmol/L 21.0-31.0 [facility] Chloride [Moles/volume] in S radha or PlasmaOrdered By: Timmy Santana on 05-17-2022 Chloride [Moles/Vol] 98 mmol/L 98-107 [facility] Creatinine [Mass/volume] in Serum or PlasmaOrdered By: Timmy Santana on 05-17-2022 Creatinine [Mass/Vol] 0.75 mg/dL 0.70-1.30 [facility] Eosinophils Auto (Bld) [#/Vo l]Ordered By: Timmy Santana on 05-17-2022 Eosinophils (Bld) [#/Vol] 0.1 10*3/uL 0.0-0.45 [facility] Eosinophils/100 WBC Auto (Bl d)Ordered By: Timmy Santana on 05-17-2022 Eosinophils/100 WBC (Bld) 1.2 % . [facility] Erythrocyte distribution wid th Auto (RBC) [Ratio]Ordered By: Timmy Santana on 05-17-2022 Erythrocyte distribution width (RBC) [Ratio] 13.8 % 12.0-14.8 [facility] Glucose [Mass/volume] in Ser um or PlasmaOrdered By: Timmy Santana on 05-17-2022 Glucose [Mass/Vol] 172 mg/dL 74-109 [facility] Comment on above: ADA recommended refe rence rangeRandom Glucose Reference Range is dependent on time and content of last meal. Glucose of more than 200 mg/dL in a nonstressed, ambulatory subject supports the diagnosis of Diabetes Mellitus. Hematocrit Auto (Bld) [Volum e fraction]Ordered By: Timmy Santana on 05-17-2022 Hematocrit (Bld) [Volume fraction] 39.5 % 38.8-50.0 [facility] Hemoglobin [Mass/volume] in BloodOrdered By: Timmy Santana on 05-17-2022 Hemoglobin (Bld) [Mass/Vol] 13.7 g/dL 13.0-17.0 [facility] Laboratory - Chemistry and C hemistry - challengeOrdered By: Timmy Santana on 05-17-2022 GFR/1.73 sq M.predicted MDRD (S/P/Bld) [Vol rate/Area] mL/min/{1.73_m2} [facility] - CoagulationOrde red By: Timmy Santana on 05-17-2022 PT Coag (PPP) [Time] 11.9 s 9.0-12.9 [facility] Leukocytes [#/volume] correc mariah for nucleated erythrocytes in Blood by Automated counOrdered By: Timmy Santana on 05-17-2022 WBC corrected for nucl RBC Auto (Bld) [#/Vol] 7.9 10*3/uL 4.1-10.5 [facility] Lymphocytes Auto (Bld) [#/Vo l]Ordered By: Timmy Santana on 05-17-2022 Lymphocytes (Bld) [#/Vol] 1.1 10*3/uL 1.00-4.8 [facility] Lymphocytes/100 WBC Auto (Bl d)Ordered By: Timmy Santana on 05-17-2022 Lymphocytes/100 WBC (Bld) 14.3 % . [facility] MCH Auto (RBC) [Entitic mass ]Ordered By: Timmy Santana on 05-17-2022 MCH (RBC) [Entitic mass] 30.8 pg 27.5-35.2 [facility] MCHC Auto (RBC) [Mass/Vol]Or dered By: Timmy Santana on 05-17-2022 MCHC (RBC) [Mass/Vol] 34.5 g/dL 32.5-35.6 [facility] MCV Auto (RBC) [Entitic vol] Ordered By: Timmy Santana on 05-17-2022 MCV (RBC) [Entitic vol] 89.2 fL 83.5-101 [facility] Monocytes Auto (Bld) [#/Vol] Ordered By: Timmy Santana on 05-17-2022 Monocytes (Bld) [#/Vol] 0.6 10*3/uL 0.0-0.8 [facility] Monocytes/100 WBC Auto (Bld) Ordered By: Timmy Santana on 05-17-2022 Monocytes/100 WBC (Bld) 7.5 % . [facility] Neutrophils Auto (Bld) [#/Vo l]Ordered By: Timmy Santana on 05-17-2022 Neutrophils (Bld) [#/Vol] 6.1 10*3/uL 1.8-7.7 [facility] Neutrophils/100 WBC Auto (Bl d)Ordered By: Timmy Santana on 05-17-2022 Neutrophils/100 WBC (Bld) 76.4 % . [facility] No Panel InformationOrdered By: Timmy Santana on 05-17-2022 Pharmacy Creatinine Clearance (Chem N/A [facility] Nucleated erythrocytes [Pres ence] in Blood by Automated countOrdered By: Timmy Santana on 05-17-2022 Nucleated RBC Auto Ql (Bld) 0.0 /100{WBC} 0-0.5 [facility] Platelet mean volume Auto (B ld) [Entitic vol]Ordered By: Timmy Santana on 05-17-2022 Platelet mean volume (Bld) [Entitic vol] 8.2 fL 6.6-10.1 [facility] Platelet poor plasma interna tional normalized ratio (INR) by coagulation assay (relatOrdered By: Timmy Santana on 05-17-2022 INR Coag (PPP) [Relative time] 1.0 {INR} [facility] Comment on above: INR Therapeutic Rang e [...] 05-17-2022 Platelets (Bld) [#/Vol] 174 10*3/uL 150-450 [facility] Potassium [Moles/volume] in Serum or PlasmaOrdered By: Timmy Santana on 05-17-2022 Potassium [Moles/Vol] 3.9 mmol/L 3.5-5.1 [facility] RBC Auto (Bld) [#/Vol]Ordere d By: Timmy Santana on 05-17-2022 RBC (Bld) [#/Vol] 4.43 10*6/uL 3.90-5.60 [facility] Serum or plasma anion gap de terminationOrdered By: Timmy Santana on 05-17-2022 Anion gap [Moles/Vol] 13.0 mmol/L 6.0-15.0 [facility] Sodium [Moles/volume] in Ser um or PlasmaOrdered By: Timmy Santana on 05-17-2022 Sodium [Moles/Vol] 135 mmol/L 136-145 [facility] Urea nitrogen [Mass/volume] in Serum or PlasmaOrdered By: Timmy Santana on 05-17-2022 Urea nitrogen [Mass/Vol] 16 mg/dL 7-25 [facility] WBC Auto (Bld) [#/Vol]Ordere d By: Timmy Santana on 05-17-2022 WBC (Bld) [#/Vol] 7.9 10*3/uL 4.1-10.5 [facility] Formson 05-12-2022 Forms [id number]#[id number]:127 Normal [facility] Physician Referralon 023 Physician Referral [id number]#[id number]:127 Normal [facility] Screenson 05-12-2022 Screens [id number]#[id number]:127 Normal [facility] Ambulatory Visit Summaryon 0 05-10-2022 Ambulatory Visit Summary JUAN BEAN :1965 Visit Date:05/10/2022 Ambulatory Visit Instructions Your Diagnosis Phimosis Balanoposthitis Hypogonadism male Tests Performed Urnls Dip Stick Auto w/o Microscopy POC 46687 Your Care Team Attending Physician - RHONDA [...] RHONDA PROCTOR, ROSCOE Garcia When: Where: [address] [place], [place] [id number]- Medications What How Much When Instructions Unchanged [...] Urnls Dip Stick Auto w/o Microscopy POC 38846 (05/10/2022) Bilirubin Urine Dipstick - Negative Blood Urine Dipstick - Trace-intact Glucose Urine Dipstick - Negative Ketones Urine Dipstick - Negative Leukocytes Urine Dipstick - Negative Nitrite Urine Dipstick - Negative Protein Urine Dipstick - Negative Specific [place] Urine Dipstick - 1.025 Urine Appearance Urine [...] ? Itc (more content not included)... Normal [facility] Patient Educationon 05-11-19 23 Patient Education [...] shower gels that have fragrance. ? Take fkeh-txv-hlspjws and prescription medicines only as told by [...] Revised: 02/03/2018 (more content not included)... Normal [facility] Vital Signs Date Time Vital Sign Value Performing Clinician Facility 12-28-2023 16:51-0400 Body height 185.4 cm Divya BRODERICK Work Phone: [facility] 12-28-2023 16:51-0400 Body mass index (BMI) [Ratio] 49.5 kg/m2 Divya BRODERICK Work Phone: [facility] 12-28-2023 16:51-0400 Body weight 170.19 kg Divya BRODERICK Work Phone: [facility] 12-28-2023 16:51-0400 Diastolic blood pressure 86 mm[Hg] Divya BRODERICK Work Phone: [facility] 12-28-2023 16:51-0400 Heart rate 93 /min Divya Verdin PA Work Phone: [facility] 12-28-2023 16:51-0400 Respiratory rate 16 /min Divya BRODERICK Work Phone: [facility] 12-28-2023 16:51-0400 SaO2% (BldA) [Mass fraction] 96 % Divya BRODERICK Work Phone: [facility] 12-28-2023 16:51-0400 Systolic blood pressure 142 mm[Hg] Divya Hemmer PA Work Phone: [facility] 04-20-2023 16:40-0500 Diastolic blood pressure 82 mm[Hg] Divya Hemmer PA Work Phone: [facility] 04-20-2023 16:40-0500 Systolic blood pressure 138 mm[Hg] Divya Hemmer PA Work Phone: [facility] 04-20-2023 16:28-0500 Body mass index (BMI) [Ratio] 46.39 kg/m2 Divya Hemmer PA Work Phone: [facility] 04-20-2023 16:28-0500 Body weight 159.49 kg Divya Hemmer PA Work Phone: [facility] 04-20-2023 16:28-0500 Heart rate 91 /min Divya Hemmer PA Work Phone: [facility] 04-20-2023 16:28-0500 Respiratory rate 18 /min Divya Hemmer PA Work Phone: [facility] 04-20-2023 16:28-0500 SaO2% (BldA) [Mass fraction] 97 % Divya Hemmer PA Work Phone: [facility] 02-02-2023 13:45-0500 Body height 185.42 cm Osiel Lewis Other [employer] Other 02-02-2023 13:45-0500 Diastolic blood pressure 70 mm[Hg] Osiel Lewis Other [employer] Other 02-02-2023 13:45-0500 SaO2% (BldA) [Mass fraction] 97 % Osiel Lewis Other [employer] Other 02-02-2023 13:45-0500 Systolic blood pressure 120 mm[Hg] Osiel Lewis Other [employer] Other 12-30-2022 16:00-0400 Body height 185.42 cm Osiel Lewis Other [employer] Other 12-30-2022 16:00-0400 Body mass index (BMI) [Ratio] 48.02 kg/m2 Osiel Lewis Other [employer] Other 12-30-2022 16:00-0400 Body weight 165.11 kg Osiel Lewis Other [employer] Other 12-30-2022 16:00-0400 Diastolic blood pressure 82 mm[Hg] Osiel Lewis Other [employer] Other 12-30-2022 16:00-0400 SaO2% (BldA) [Mass fraction] 96 % Osiel Lewis Other [employer] Other 12-30-2022 16:00-0400 Systolic blood pressure 138 mm[Hg] Osiel Lewis Other [employer] Other 12-01-2022 11:06-0400 Diastolic blood pressure 82 mm[Hg] PA-C Divya Hemmer Work Phone: [facility] 12-01-2022 11:06-0400 Heart rate 77 /min PA-C Divya Hemmer Work Phone: [facility] 12-01-2022 11:06-0400 Respiratory rate 19 /min PA-C Divya Hemmer Work Phone: [facility] 12-01-2022 11:06-0400 SaO2% (BldA) [Mass fraction] 97 % PA-C Divya Hemmer Work Phone: [facility] 12-01-2022 11:06-0400 Systolic blood pressure 158 mm[Hg] PA-C Divya Hemmer Work Phone: [facility] 12-01-2022 09:24-0400 Body temperature 98.6 [degF] PA-C Divya Hemmer Work Phone: [facility] 12-01-2022 09:23-0400 Body height 185.42 cm PA-C Divya Hemmer Work Phone: [facility] 12-01-2022 09:23-0400 Body weight 162.8 kg PA-C Divya Hemmer Work Phone: [facility] 07-13-2022 09:07-0400 Body temperature 98.2 [degF] PA-C Divya Hemmer Work Phone: [facility] 07-13-2022 09:07-0400 Body weight 169.68 kg PA-C Divya Hemmer Work Phone: [facility] 07-13-2022 09:07-0400 Diastolic blood pressure 89 mm[Hg] PA-C Divya Hemmer Work Phone: [facility] 07-13-2022 09:07-0400 Heart rate 80 /min PA-C Divya Hemmer Work Phone: [facility] 07-13-2022 09:07-0400 Respiratory rate 20 /min PA-C Divya Hemmer Work Phone: [facility] 07-13-2022 09:07-0400 SaO2% (BldA) [Mass fraction] 97 % PA-C Divya Hemmer Work Phone: [facility] 07-13-2022 09:07-0400 Systolic blood pressure 158 mm[Hg] PA-C Divya Hemmer Work Phone: [facility] 07-12-2022 08:52-0400 Body height 185.4 cm Víctor Rosales MD Work Phone: [facility] 07-12-2022 08:52-0400 Body weight 161.48 kg Víctor Rosales MD Work Phone: [facility] 07-12-2022 08:52-0400 Diastolic blood pressure 81 mm[Hg] Víctor Rosales MD Work Phone: [facility] 07-12-2022 08:52-0400 Heart rate 92 /min Víctor Rosales MD Work Phone: [facility] 07-12-2022 08:52-0400 Systolic blood pressure 162 mm[Hg] Víctor Rosales MD Work Phone: [facility] 06-22-2022 08:01-0400 Body height 185.42 cm PA-C Divya Hemmer Work Phone: [facility] 05-31-2022 17:55-0400 Diastolic blood pressure 77 mm[Hg] PA-C Divya Hemmer Work Phone: [facility] 05-31-2022 17:55-0400 Heart rate 92 /min PA-C Divya Hemmer Work Phone: [facility] 05-31-2022 17:55-0400 Respiratory rate 16 /min PA-C Divya Hemmer Work Phone: [facility] 05-31-2022 17:55-0400 SaO2% (BldA) [Mass fraction] 94 % PA-C Divya Hemmer Work Phone: [facility] 05-31-2022 17:55-0400 Systolic blood pressure 131 mm[Hg] PA-C Divya Hemmer Work Phone: [facility] 05-31-2022 17:25-0400 Inhaled oxygen flow rate 1 L/min PA-C Divya Hemmer Work Phone: [facility] 05-31-2022 16:26-0400 Body temperature 97.4 [degF] PA-C Divya Hemmer Work Phone: [facility] 05-31-2022 15:31-0400 Body height 185.42 cm PA-C Divya Conwaymer Work Phone: [facility] 05-31-2022 15:31-0400 Body mass index (BMI) [Ratio] 48.2 kg/m2 PA-C Divya Hemmer Work Phone: [facility] 05-31-2022 15:31-0400 Body weight 166 kg PA-C Divya Hemmer Work Phone: [facility] 05-20-2022 11:13-0400 Diastolic blood pressure 94 mm[Hg] Divya Verdin -[facility] [employer] DO Work Phone: 05-20-2022 11:13-0400 Systolic blood pressure 152 mm[Hg] Divya Verdin [facility] [employer] DO Work Phone: 05-20-2022 11:12-0400 Body height 185.42 cm Divya Verdin [facility] [facility] [facility] 250 DO Work Phone: 05-20-2022 11:12-0400 Body mass index (BMI) [Ratio] 47.36 kg/m2 Divya Verdin [facility] [place] [facility] 250 DO Work Phone: 05-20-2022 11:12-0400 Body surface area Derived from formula 2.76 m2 Divya Verdin [facility] [place] [facility] 250 DO Work Phone: 05-20-2022 11:12-0400 Body weight 162.84 kg Divya Verdin -[facility] 250 DO Work Phone: 05-20-2022 11:12-0400 Diastolic blood pressure 90 mm[Hg] Divya Verdin -[facility] 250 DO Work Phone: 05-20-2022 11:12-0400 Heart rate 90 /min Divya Verdin [facility] [facility] 250 DO Work Phone: 05-20-2022 11:12-0400 Systolic blood pressure 154 mm[Hg] Divya Verdin [facility] 250 DO Work Phone: 05-10-2022 10:54-0500 Diastolic blood pressure 85 mm[Hg] [place] [facility] 05-10-2022 10:54-0500 Mean blood pressure 105 mm[Hg] [place] [facility] 05-10-2022 10:54-0500 Respiratory rate 70 /min [place] [facility] 05-10-2022 10:54-0500 Systolic blood pressure 146 mm[Hg] [place] [facility] 05-10-2022 10:37-0500 Blood Pressure Location [place] [facility] 05-10-2022 10:37-0500 Diastolic blood pressure 90 mm[Hg] [place] [facility] 05-10-2022 10:37-0500 Heart rate 84 /min [place] [facility] 05-10-2022 10:37-0500 Systolic blood pressure 150 mm[Hg] [place] Encounters Encounter Date Encounter Type Care Provider Facility Start: 12-28-2023 End: 12-28-2023 Office outpatient visit 25 minutes Divya Verdin PA Work Phone: [facility] Comment on above: Type 2 diabetes yareli itus with other specified complication, without long-term current use of insulin ([facility]) (Primary Dx); Primary hypertension (CMS/HCC); Morbid obesity [...] Start: 02-02-2023 End: 02-02-2023 ambulatory DIVYA VERDIN [facility] Other Start: 02-02-2023 Office outpatient vi sit 15 minutes Osiel Joshua [facility] Start: 01-28-2023 End: 01-28-2023 ambulatory Divya Hemmer Facility:[facility] Start: 12-30-2022 End: 12-30-2022 ambulatory Osielsilvano Lewis Other [facility] Other Start: 12-30-2022 Office consultation new/estab patient 60 min Osiel Joshua [facility] Start: 12-01-2022 End: 12-01-2022 Emergency department patient visit PA-Falguni Verdin Work Phone: [facility]gency [facility] Work Phone: Start: 11-09-2022 End: 11-10-2022 ambulatory DIVYA HEMMER Facility:[facility] Start: 08-19-2022 Telephone encounter Víctor Rosales MD Work Phone: Urology Comment on above: Results Start: 08-13-2022 End: 08-13-2022 ambulatory DANIEL LEONARD Facility:[facility] Start: 08-09-2022 End: 08-10-2022 ambulatory Timmy SANTANA Facility:[facility] Start: 08-09-2022 End: 08-09-2022 Patient encounter procedure Timmy SANTANA [facility] Start: 07-13-2022 End: 07-13-2022 ambulatory PA-C Divyabritney Conwayjef Work Phone: [facility] Work Phone: Start: 07-13-2022 End: 07-13-2022 Registered Recurring PA-C Divya Hemmer Work Phone: [facility] Work Phone: Start: 07-12-2022 End: 07-13-2022 ambulatory Víctor Rosales MD Work Phone: Urology Start: 07-12-2022 End: 07-12-2022 Patient encounter procedure Víctor Rosales MD Work Phone: Urology Comment on above: Penile cancer (HCC) (Primary Dx); Hidden penis; Morbid obesity with BMI of 45.0-49.9, adult (HCC) Start: 06-21-2022 End: 06-22-2022 ambulatory Timmy SANTANA Facility: [facility] Start: 05-31-2022 End: 06-01-2022 ambulatory Timmy SANTANA Facility:CD:[id number] Start: 05-31-2022 End: 05-31-2022 Admission to same day surgery center MIKEY Verdin Work Phone: [facility] [place] Start: 05-20-2022 Office consultation new/estab patient 60 min Divya Verdin -[facility] 250 DO Work Phone: Start: 05-20-2022 ambulatory Ritesh Ordonez Ariadne y: Start: 05-17-2022 End: 05-17-2022 ambulatory MIKEY Verdin Work Phone: [facility] Work Phone: Start: 05-17-2022 End: 05-17-2022 Patient encounter procedure MIKEY Verdin Work Phone: [facility]Pre-Surgical Testing Work Phone: Start: 05-10-2022 End: 05-11-2022 ambulatory Timmy SANTANA Facility: [facility] Start: 05-10-2022 End: 05-10-2022 Patient encounter procedure Timmy SANTANA [facility] Start: 04-08-2022 ambulatory DIVYA VERDIN Facility:[facility] Patient encounter status [facility] Work Phone: Procedures Date Procedure [...] CANCER SCREENING DISCUSSION PROSTATE CANCER SCREENING DISCUSSION [facility] Start: 09-03-2024 Influenza vaccination Influenza Vacc ine (#1) [facility] Comment on above: Postponed from 11/05 (Patient Refused) Start: 08-23-2024 Screening for malign ant neoplasm of colon Colorectal Cancer Screening [facility] Comment on above: Postponed from 01/16 (Patient Refused) Start: 04-04-2024 End: 04-04-2024 Patient encounter procedure 04/04/2024 5:00 PM EST Office Visit [facility] [address] [place] [address] Divya Verdin, PA [address] [place] [address] [facility] Start: 03-29-2024 Hemoglobin A1c [...] [address] [place] [address] Divya Verdin, PA [address] [place] [address] [facility] Start: 11-06-2023 Influenza vaccination Influenza Vacc ine (#1) [facility] Start: 08-07-2023 DIABETES SCREEN DIABETES SCREEN [facility] Start: 07-20-2023 End: 07-20-2023 Patient encounter procedure 07/20/2023 5:00 PM EDT Office Visit [facility] [address] [place] [address] Divya Verdin, PA [address] [place] [address] [facility] Start: 05-05-2023 Hemoglobin A1c measurement Diabetes: Hemoglobin A1C [facility] Start: 04-20-2023 End: 04-20-2023 Patient encounter procedure 04/20/2023 5:00 PM EST Office Visit [facility] [address] [place] [address] Divya Verdin, PA [address] [place] [address] Arrived [facility] Comment on above: Arrived Start: 11-05-2022 Influenza vaccination INFLUENZ A (Season Ended) [facility] Start: 09-18-2022 Screening for malign ant neoplasm of colon [facility] Start: 06-10-2022 Glaucoma screening Diabetes: R etinopathy Screening [facility] Healthcare Start: 05-31-2022 [facility] Start: 05-31-2022 [facility] Start: 05-17-2022 Plain chest X-ray XR chest 2V* [facility] Start: 05-17-2022 XR Chest 2 Views [facility] Start: 03-07-2022 DEPRESSION ASSESSMENT DEPRESSION ASS ESSMENT [facility] Start: 04-21-2021 COVID-19 VACCINE (4 - Booster for Moderna series) COVID-19 VACCINE (4 - Booster for Moderna series) [facility] Start: 2015 SHINGRIX VACCINE (1 of 2) SHINGRIX VACCINE (1 of 2) [facility] Start: 2010 COLOGUARD (FIT-DNA) COLOGUARD (FIT-D NA) [facility] Start: 2010 Colonoscopy COLONOSCOPY [facility] Start: 2010 COLORECTAL CANCER SCREENING COLORECTAL CANCER SCREENING [facility] Start: [address] COLONOGRAPHY [facility] Start: 2010 FECAL OCCULT BLOOD FECAL OCCULT BLOO D [facility] Start: 2010 SIGMOIDOSCOPY SIGMOIDOSCOPY [facility] Start: 01-17-2000 LIPID SCREEN LIPID SCREEN [facility] Start: 01-17-1984 Urine microalbumin profile DTAP,TDAP,TD (1 - Tdap) [facility] Start: 1983 HEPATITIS C SCREENING HEPATITIS C [facility] Start: 1983 HIV SCREENING HIV SCREENING [facility] Start: 1965 HEPATITIS B (1 of 3 - 3-dose series) HEPATITIS B (1 of 3 - 3-dose series) [facility] Start: 1965 Screening for malign ant neoplasm of colon [facility] Healthcare Patient Education Hip Pain ED [facility] Work Phone: Patient referral [facility] Work Phone: [facility] Immunizations Immunization Date Immunization Notes Care Provider Fa cility 12-21-2022 influenza, injectabl e, quadrivalent, preservative free Divya BRODERICK Work Phone: [facility] 12-21-2022 influenza virus vaccine, unspecified formulation Divya BRODERICK Work Phone: [facility] 02-24-2021 SARS-CoV-2 (COVID-19 ) mRNA-1273 vaccine Timmy SANTANA [facility] 07-03-2020 SARS-CoV-2 (COVID-19 ) mRNA-1273 vaccine Timmy Urban Ladder [facility] Comment on above: Result Comment: 2022: TPV50 06-05-2020 SARS-CoV-2 (COVID-19 ) mRNA-1273 vaccine Timmy SANTANA [facility] Comment on above: Result Comment: 2022: TPV50 12-06-2016 influenza virus vaccine, unspecified formulation Timmy SANTANA [facility] 12-06-2016 seasonal influenza, intradermal, preservative free Divya Verdin [facility] Healthcare Payers Date Payer Category Payer Self-pay 2022 Private Health Insurance [employer] [id number] 2022 Unknown 2022 Unknown [id number] 1965 Unknown [id number] [id number]. 356 1965 Unknown [id number] 2.16.840.1.266808.3.579.2. 727 1965 Unknown [id number] 2.16.840.1.991500.3.579.2. 727 1965 Unknown [id number] 2.16.840.1.547008.3.579.2. 727 1965 Unknown [id number] 2.16.840.1.365206.3.579.2. 727 1965 Unknown [id number] 2.16.840.1.795976.3.579.2. 727 1965 Unknown [id number] 2.16.840.1.994212.3.579.2. 1259 1965 Unknown [id number] 2.16.840.1.116256.3.579.2. 1259 1965 Unknown [id number] 2.16.840.1.763556.3.579.2. 1259 1965 Unknown [id number] 2.16.840.1.564513.3.579.2. 1259 1965 Unknown [id number] 2.16.840.1.941095.3.579.2. 1259 Unknown [id number] 2.16.840.1.012795.3.579.2. 531 Unknown [id number] 2.16.840.1.264150.3.579.2. 531 Social History Date Type Detail Facility Start: 05-10-2022 End: 03-16-2023 Tobacco smoking status Never smoked tobacco (finding) [facility] Tobacco smoking status Never [facility] Start: 03-16-2023 End: 08-24-2023 Sex Assigned At Male [facility] Start: 05-17-2022 End: 07-12-2022 Tobacco smoking status NHIS Ex-smoker (finding) [facility] Start: 1965 Sex Assigned At Male [facility] Start: 03-16-2023 End: 08-24-2023 Occasional alcohol use Occasional alcohol use [facility] 250 DO Work Phone: Comment on above: couple shots 1- 2 pe r week; tea all day, occasio kendra coffee; quit 29+ years ago; History of tobacco use Current smoker [facility] History of tobacco use Cigarette Smoker [facility] Start: 07-12-2022 End: 03-16-2023 Tobacco use and exposure User of smokeless tobacco [facility] Start: 1965 Sex Assigned At Not on file C [facility] History of tobacco use Snuff User [facility] Start: 03-16-2023 End: 08-24-2023 Alcohol intake Current drinker of alcohol (finding) [facility] Start: 10-13-2022 Alcohol Comment Caffeine intak e: coffee, soda [facility] Medical Equipment Procedure Code Equipment Code Equipment Origin al Text Equipment Identifier Dates [id number], [id number] Start: 07-03-2013 Goals Date Patient Goal Desired Activity /State Functional Status Date Assessment Result Facility 05-10-2022 Functional Status N/A [facility] Clinical Notes 05-10-2022 to 12-28-2023 MEGGAN Lopez - 12/28/2023 5:00 PM EDTTelephone Encounter - MEGGAN Lopez - 12/27/2023 10:02 AM EDTTelephone Encounter - MEGGNA Lopez - 12/27/2023 10:02 AM EDT Note [...] home. Currently on Glimepiride, Metformin, and Pioglitazone. [facility] has a co-worker who saw him have [...] 100 tablet 3 Blood Glucose Monitoring Suppl ([employer] ([employer]) Glucometer) w/Device kit 1 each Daily Test glucose once a day. ergocalciferol (Vitamin D2) 1.25 MG (57139 UT) capsule TAKE 1 CAPSULE BY MOUTH [...] complication, without long-term current use of insulin ([facility]) - POCT Glycated hemoglobin, total Advised pt that his HgbA1c has increased to 7.3. He had a recent change in his diet and was eating unhealthier foods at lunch consistently. Discussed healthier options for snacks or quick meal solutions. Limit simple sugars and carbs. Will recheck in three months. His insurance does not cover GLP class medications. Primary hypertension ([facility]) Patient's blood pressure is currently stable. Continue with current medications and I will continue to monitor. Morbid obesity ([facility]) Pt has gained 21 pounds since his last appointment. Unable to continue the Adipex for the patient at this time as the benefits are no longer outweighing the potential risks of the medication. Encouraged him to work on improving his diet. Stay active, can re-evaluate in three months. Follow up in about 3 months (around 03/29/2024) for Diabetes. documented in this encounter [facility] 12-27-2023 Telephone encounter Note Form atting of this note might be different from the original. OARRS reviewed, Rx sent into patient's pharmacy. [facility] 12-27-2023 Miscellaneous Notes Formattin g of this note might be different from the original. OARRS reviewed, Rx sent into patient's pharmacy. phentermine (Adipex-P) 37.5 MG tablet Ddm in [place] documented in this encounter [facility] 12-27-2023 Telephone encounter Note Form atting of this note might be different from the original. phentermine (Adipex-P) 37.5 MG tablet Ddm in [place] [facility] 11-23-2023 Telephone encounter Note Form atting of this note might be different from the original. Yes, med was already sent [facility] 11-23-2023 Miscellaneous Notes Formattin g of this note might be different from the original. Yes, med was already sent This looks as though it was sent in on 11/20 documented in this encounter [facility] 11-23-2023 Telephone encounter Note Form atting of this note might be different from the original. This looks as though it was sent in on 11/20 [facility] 11-21-2023 Telephone encounter Note Form atting of this note might be different from the original. OARRS reviewed, Rx sent into patient's pharmacy. [facility] 11-21-2023 Miscellaneous Notes Formattin g of this note might be different from the original. OARRS reviewed, Rx sent into patient's pharmacy. phentermine (Adipex-P) [facility] [place] documented in this encounter [facility] 11-21-2023 Telephone encounter Note Form atting of this note might be different from the original. phentermine (Adipex-P) 37.5 MG tablet [facility] [place] [facility] 10-25-2023 Telephone encounter Note Form atting of this note might be different from the original. OARRS reviewed, Rx sent into patient's pharmacy. [facility] 10-25-2023 Miscellaneous Notes Formattin g of this note might be different from the original. OARRS reviewed, Rx sent into patient's pharmacy. documented in this encounter [facility] 02-02-2023 Evaluation note Encounter Date Diagnosis Assessment [...] call the office if his symptoms worsen. [employer] Other 11-29-2023 History of Present illness Narrative* [...] kit 0 ergocalciferol (Vitamin D2) 1.25 MG (62988 UT) capsule Take 1 capsule (1.25 mg) [...] Medication Follow Up, Hypertension. documented in this encounterCox [id number] Evaluation note* Encounter Date Diagnosis Assessment Notes [...] negative findings were considered in medical decision-making. [employer] Other [id number] Miscellaneous Notes* Telephone Encounter - Víctor Rosales [...] needed. Víctor Rosales MD [facility] NoteHNO ID: [id number] Author: Elena Teran APRN.LAUNDRY TECH Service: ? Author Type: Nurse Rn Psych Type: Anesthesia Procedure Notes Filed: 08/13/2022 3:45 PM Note Text: ANESTHESIOLOGY PROCEDURE NOTE Airway General Information Procedure Start Time/Medication Administration: 08/13/2022 3:07 PM Procedure End Time: 08/13/2022 3:08 PM Patient location during procedure: OR Timeout Performed Pre-procedure: timeout performed Consent Obtained: Yes Patient identity confirmed: patient sedated or unresponsive and arm band Staffing Anesthesiologist: Brennan Henley MD LAUNDRY TECH: Elena Teran APRN.LAUNDRY TECH Performed by: LAUNDRY TECH Indications and Patient Condition Indications for airway [...] with Mcmahon and stylette. SIGNATURE: Elena Teran APRN.LAUNDRY TECH PATIENT NAME: Juan Bean DATE: August 13, 2022 TIME: 3:38 PM CSN: [id number] NoteThis case was seen in consultation with Drs. Florentin Shirley, Hema Edwards and Rita Funez who agree with the above interpretation.[facility] Comment on above:Order Comment: Specimen Type: TISSUE SPECIMENOrdering Facility: [facility] Address: [address] [id number] Performed By: #### S ####[facility] LABCLIA [id number] [address] OF [id number] Note Patient Outreach (UROLMN) JUAN BEAN ([id number]) 1965 M Date Time Provider Department 07/12/22 VÍCTOR ROSALES During your visit today, we recorded the following information about you: Allergies As of Date: 07/12/2022 (No Known Allergies) Date Reviewed: 07/12/2022 Reviewed by: ADELA Crandall - Fully Assessed Visit Diagnosis:Screening for genitourinary condition [Z13.89] Order(s):URINALYSIS, REFLEX MICROSCOPIC [TIF2833] Order #: [id number]. #:[id number] Prescriptions as of 07/15/2022 - amLODIPine (NORVASC) [...] of 45.0-49.9, adult (HC*07/12/2022 Encounter Status:Closed by [employer], PRODUSER on 07/15/22[facility] 07-12-2022 NoteHNO ID: [id number] Author: Víctor Rosales MD Service: ? Author Type: Physician Type: Progress Notes Filed: 07/12/2022 9:40 AM Note Text: [facility] NEW PATIENT HISTORY AND PHYSICAL [...] for internal providers or letter via the [employer] for external providers. HISTORY CHIEF [...] care with the res (more content not included)...[facility]05-08-2023 History of Present illness Narrative* Víctor Rosales MD - 07/12/2022 9:18 AM EDT [facility] NEW PATIENT HISTORY AND PHYSICAL [...] for internal providers or letter via the [employer] for external p roviders. HISTORY CHIEF COMPLAINT: [...] Service Time: 9:37 AM documented in this encounterMer[facility]04-18-2023 Progress note Author Silvio Yu [facility] June 22, 2022 9:03am Note Date/Time June 22, 2022 8:2 [facility] [place] [address] Hem/Onc Follow Up Note - OP Signed Patient: Juan Bean JR MR#: [id number] : 1965 Acct:[id number] Age/Sex: 57 / M Type: REG RCR [...] he is a T1b. will send to [facility] path review for second opinion. We would like to ascertain he has no residual disease. Dr. Santana will speak withhis colleague Dr. Víctor Rosales at [facility] and determine if additional excision or biopsy is necessary. Follow Up Instructions: Dr. Santana is setting up to see [facility] urology. send path report to [facility] for review. ct c/a/p with contrst cbc, cmp, cea with ct . f/u in 3 wks. 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 Hadcircumcision 05/31/22, [facility] pathology. HPI: 57-year-old male past medical history [...] for coordination of care (as documented) and ycir-jo-uvvv counseling of patient and/or family. [facility] - Medical History Medical History: Medical [...] by Silvio Yu II, DO> 06/22/22 0903 [facility] Work Phone: 1(387) 158-899503-06-2023 NoteChief Complaint Referral HPI Staff Referral per [...] Contact Information Timmy SANTANA MD, URL [address] [address]- Additional Instructions: pt will f/u after procedure Patient Education Ramona Christiansen , personally scribed for Dr. Santana on 05/10/2022 11:00:16. . Documentation recorded by the scribe, Ramona Yost MA, accurately reflects the services(s) I performed and decisions made by me. Authenticated by (more content not included)...[facility]:Result Comment: Electronically Signed By: Timmy SANTANA MD\.br\Date and Time Signed: 05/10/22 11:03 EST\.br\Electronically Co-Signed By: Ramona Yost MA\.br\Date and Time Co-Signed: 05/10/22 11:00 [id number] Hospital Discharge instructions Patient Education 05/10/2022 10:53:42 [...] and shower gels that have fragrance. Take axwm-sml-ggxsgtd and prescription medicines only as told by [...] 07/10/2009 Document Revised: 02/03/2018 Document Reviewed: 01/10/2017 [employer] Patient Education 2020 [employer] 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 and yard [...] will follow-up on a as needed basis [facility] 250 DO Work Phone: Evaluation + Plan note No data available for this section [facility] Evaluation noteNo assessment information available [facility] Work Phone: Evaluation note* Diagnosis Penile cancer (HCC)- Primary Malignant neoplasm of penis, part unspecified Hidden penis Morbid obesity with BMI of 45.0-49.9, adult (HCC) Morbid obesity documented in [facility]* Diagnosis Onset Date Resolution Status Squamous cell carcinoma, penis acute [facility] Work Phone: Evaluation note* Diagnosis Screening for genitourinary condition Screening for other and unspecified genitourinary condition Penile cancer (HCC) Malignant neoplasm of penis, part unspecified documented in this encounter [facility]* Diagnosis Primary hypertension (CMS/HCC)- Primary Unspecified essential hypertension Morbid obesity (CMS/HCC) Morbid obesity [facility] Diagnosis Morbid obesity (CMS/HCC) Morbid obesity documented in this encounter [facility] HealthcareEvaluation note* Diagnosis Type 2 diabetes mellitus with other specified complication, without long-term current use of insulin (CMS/HCC)- Primary Primary hypertension (CMS/HCC) Unspecified essential hypertension Morbid obesity (CMS/HCC) Morbid obesity documented in this encounter [facility] HealthcareEvaluation note* Diagnosis Morbid obesity (CMS/HCC) Morbid obesity [facility]* Diagnosis Morbid obesity (CMS/HCC) Morbid obesity documented in this encounter [facility] HealthcareEvaluation note* Diagnosis Morbid obesity (CMS/HCC) Morbid obesity documented in this encounter [facility] HealthcareHistory general Narrative - Reported* Type Description Date Medical History DM2 Medical History hyperlipedemia Medical History HTN Medical History gum disease Medical History hypogonadism Medical History vit d dif Medical History Gout Surgical History T&A 1969 Hospitalization History SEE ABOVE SURGERY [employer] Other History general Narrative - Reported* Type Description Date Medical History DM2 Medical History hyperlipedemia Medical History HTN Medical History gum disease Medical History hypogonadism Medical History vit d dif Medical History Gout Surgical History T&A 1970 Hospitalization History SEE ABOVE SURGERY Hospitalization History cellulitis LLE 01/2023 [employer] Other Hospital Discharge instructions No data available for this section [facility] [employer] [facility] Discharge instructions Additional Instructions Take the prednisone twice a day for 5 days Take 1 hydrocodone every 6 hours for severe pain May use ice or warm moist heat Gentle stretching Continue your other medication The steroids can elevate your blood sugar so carefully watch her blood sugar in your diet Follow-up with family doctor and/or [facility] Return to the ER for worsening pain unable to walk fever or any other concerns [facility] Work Phone: Proxncnn note No data available for this section [facility] note Author Silvio Yu [facility] July 13, 2022 9:24am Note Date/Time July 13, 2022 9:18am [facility] [place] [id number] Hem/Onc Follow Up Note - OP Signed Patient: Juan Bean JR MR#: [id number] : 1965 Acct:[id number] Age/Sex: 57 / M Type: REG RCR [...] disease. comanaged by Dr. Av Rosales at [facility], plans additional biopsies under anesthesia for [...] we thave notes from dr rosales at [facility] and potential surgical report and pathology [...] 85%. 07/13/[address] av rosales at [facility]. recommended additional biopsy under anesthesia. ct [...] for coordination of care (as documented) and [id number] counseling of patient and/or family. [facility] - Medical History Medical History: Medical [...] signed by Silvio Yu II, DO> 07/13/22923 [facility] Work Phone: Chief Complaint and Reason [...] Morbid obesity (CMS/HCC) Divya Verdin PA [address] [place] [address] Referral ID Status Reason Start Date Expiration Date V isits Requested Visits Authorized [id number] Pending Review 1 1 Additional Source Comments Patient Care team informatio n (unrecognized section and content) Team Status: Active Member Role Status Dates Divya Verdin PA-C Primary Care Provider Active Team Status: Inactive Member Role Status Dates Timmy Santana MD Attending Provider Active Divya Verdin PA-C Primary Care Provider Active Flare Stitcher Relationship Specialty Start Date End Date Daniel Leonard MD PCP - General Family Medicine 01/10/13 Team Status: Active Member Role Status Dates Divya Verdin PA-C Primary Care Provider Active Silvio Yu II, DO Attending Provider Active Timmy Santana MD Referring Provider Active Flare Stitcher Relationship Specialty Start Date End Date Daniel Leonard MD PCP - General Family Medicine 01/10/13 Flare Stitcher Relationship Specialty Start Date End Date Divya Verdin [address] [place] [address] PCP - General Family Medicine 07/27/22 Team Status: Inactive Member Role Status Dates MEGGAN Lawler-C Primary Care Provider Active Roya Childs , EMPLOYEE COMMUNICATIONS COORDINATOR-BC Emergency Provider Active Flare Stitcher Relationship Specialty Start Date End Date Divya Verdin PA [address] [place] [address] PCP - Medical [employer] 08/05/22 Manish Rodriguez MD [address] [place] [address] PCP - General Internal Medicine 07/13/22 Flare Stitcher Relationship Specialty Start Date End Date Divya Verdin PA [address] [place] [address] PCP - Medical [employer] 08/05/22 Manish Rodriguez MD [address] [place] [address] PCP - General Internal Medicine 07/13/22 Flare Stitcher Relationship Specialty Start Date End Date Manish Rodriguez MD [address] [place] [address] PCP - General Internal Medicine 07/13/22 Manish Rodriguez MD [address] [place] [address] PCP - Medical [employer] 03/07/17 03/06/99 Flare Stitcher Relationship Specialty Start Date End Date Manish Rodriguez MD [address] [place] [address] PCP - General Internal Medicine 07/13/22 Manish Rodriguez MD [address] [place] [address] PCP - Medical [employer] 03/07/17 03/06/99 Flare Stitcher Relationship Specialty Start Date End Date Manish Rodriguez MD [address] [place] [address] PCP - General Internal Medicine 07/13/22 Manish Rodriguez MD [address] [place] [address] PCP - Medical [employer] 03/07/17 03/06/99 Flare Stitcher Relationship Specialty Start Date End Date Manish Rodriguez MD [address] [place] [address] PCP - General Internal Medicine 07/13/22 Manish Rodriguez MD [address] [place] [address] PCP - Medical [employer] 03/07/17 03/06/99 Flare Stitcher Relationship Specialty Start Date End Date Manish Rodriguez MD [address] [place] [address] PCP - General Internal Medicine 07/13/22 Manish Rodriguez MD [address] [place] [address] PCP - Medical [employer] 03/07/17 03/06/99 Flare Stitcher Relationship Specialty Start Date End Date Manish Rodriguez MD [address] [place] [address] PCP - General Internal Medicine 07/13/22 Manish Rodriguez MD [address] [facility] [address] [place] [address] PCP - Medical [employer] 03/07/17 03/06/99 Goals (unrecognized section and content) Goals may be documented in a n alternate section (unrecognized sect ion and content) No Status Records FoundNo Status Records FoundNo Status Records FoundNo Status Records FoundNo Status Records FoundNo Status Records Found INFORMATION SOURCE (unrecogn ized section and content) DATE CREATED AUTHOR 05/21/2022 [facility] DATE CREATED AUTHOR AUTHOR'S ORGANIZ ATION 05/21/2022 [employer] DATE CREATED AUTHOR AUTHOR'S ORGANIZ ATION 08/19/2022 [facility] DATE CREATED AUTHOR AUTHOR'S ORGANIZ ATION 11/10/[address] [facility] DATE CREATED AUTHOR AUTHOR'S ORGANIZ ATION 08/19/2023 [facility] DATE CREATED AUTHOR AUTHOR'S ORGANIZ ATION 12/30/2023 [facility] EPIC Source Comments (unrecognize d section and content) In the event this informatio n is protected by the Federal Confidentiality of Alcohol and Drug Abuse Patient Records regulations: The Federal rules restrict any use of the information to criminally investigate or prosecute any alcohol or drug abuse patient.[facility] the event this information is protected by the Federal Confidentiality of Alcohol and Drug Abuse Patient Records regulations: The Federal rules restrict any use of the information to criminally investigate or prosecute any alcohol or drug abuse patient.[facility] the event this information is protected by the Federal Confidentiality of Alcohol and Drug Abuse Patient Records regulations: The Federal rules restrict any use of the information to criminally investigate or prosecute any alcohol or drug abuse patient.[facility] Reason for Visit (unrecogniz ed section and content) Reason Comments New Patient Reason Comments Results Reason Onset Date Comments Med Refill 12/27/2023 Reason Comments Med Refill Reason Onset Date Comments Med Refill 10/24/2023 [facility] [place] FOR RECORDS PERTAINING TO PATIENTS WHO [...] BE BASED ON THE PRIMARY CLINICAL RECORDS. [facility] [employer] [facility]. provides no warranty or guarantee of the accuracy or completeness of information in this document.
[2024-03-07 21:30] LABS: Glucometer 206 mg/dL (74-106)
[2024-03-07] MEDS: ATORVASTATIN CALCIUM 20 MG TABLET PO (22:50)
[2024-03-07] MEDS: VANCOMYCIN HCL 2,000 MG in 0.9 % SODIUM CHLORIDE 500 ML 250 MG IV (22:50)
[2024-03-08] VITALS (22 sets, daily range): BP systolic 115–168; BP diastolic 62–78; PULSE 92–113; TEMP 36.7–37.7; O2SAT 90–94
[2024-03-08] MEDS: PIPERACILLIN SODIUM/TAZOBACTAM 3.375 GM in 0.9 % SODIUM CHLORIDE 50 ML IV ×3 (02:26→17:12)
[2024-03-08 04:28] LABS: Bilirubin Urine SMALL (NEGATIVE); Blood Urine NEGATIVE (NEGATIVE); Clarity Urine CLEAR (CLEAR); Color Urine DK. YELLOW (YELLOW); Glucose Urine UA NEGATIVE (NEGATIVE); Ketones Urine 15 mg/dL (NEGATIVE); Leukocyte Esterase Urine NEGATIVE (NEGATIVE); Nitrite Urine NEGATIVE (NEGATIVE); Protein Urine 30 mg/dL (NEG/TRACE); Specific Gravity Urine 1.025 (1.005-1.025); pH Urine 5.5 (5.0-9.0)
[2024-03-08 04:30] LABS: Urine Microscopic Indicated YES
[2024-03-08 04:48] LABS: Bacteria Urine SMALL #/HPF (NONE SEEN); Cast Seen? NONE SEEN #/LPF (NONE SEEN); Crystals Seen? None Seen #/HPF (None Seen); Mucus Urine NONE SEEN (NONE SEEN); RBC Urine 0-2 #/HPF (0-2); Squamous Epithelial Cell Urine FEW #/LPF (NONE/RARE); Urine Culture Indicated YES
[2024-03-08 05:20] LABS: A. calcoaceticus-baumannii Cpx NOT DETECTED (NOT DETECTE); Bacteroides fragilis NOT DETECTED (NOT DETECTE); Candida albicans NOT DETECTED (NOT DETECTE); Candida auris NOT DETECTED (NOT DETECTE); Candida glabrata NOT DETECTED (NOT DETECTE); Candida krusei NOT DETECTED (NOT DETECTE); Candida parapsilosis NOT DETECTED (NOT DETECTE); Candida tropicalis NOT DETECTED (NOT DETECTE); Cryptococcus neoformans/gattii NOT DETECTED (NOT DETECTE); Enterobacter cloacae complex NOT DETECTED (NOT DETECTE); Enterobacterales NOT DETECTED (NOT DETECTE); Enterococcus faecalis NOT DETECTED (NOT DETECTE); Enterococcus faecium NOT DETECTED (NOT DETECTE); Haemophilus influenzae NOT DETECTED (NOT DETECTE); Klebsiella aerogenes NOT DETECTED (NOT DETECTE); Klebsiella pneumoniae group NOT DETECTED (NOT DETECTE); Listeria monocytogenes NOT DETECTED (NOT DETECTE); Neisseria meningitidis NOT DETECTED (NOT DETECTE); Proteus spp. NOT DETECTED (NOT DETECTE); Pseudomonas aeruginosa NOT DETECTED (NOT DETECTE); Salmonella spp. NOT DETECTED (NOT DETECTE); Serratia marcescens NOT DETECTED (NOT DETECTE); Staphylococcus epidermidis NOT DETECTED (NOT DETECTE); Staphylococcus lugdunensis NOT DETECTED (NOT DETECTE); Staphylococcus spp. NOT DETECTED (NOT DETECTE); Stenotrophomonas maltophilia NOT DETECTED (NOT DETECTE); Streptococcus agalactiae NOT DETECTED (NOT DETECTE); Streptococcus pneumoniae NOT DETECTED (NOT DETECTE); Streptococcus pyogenes NOT DETECTED (NOT DETECTE)
[2024-03-08 05:49] LABS: Basophils Percent Auto 0.2 % (0.2-2.0); Hematocrit 35.4 % (42.0-54.0); Hemoglobin 11.7 g/dL (14.0-18.0); Immature Granulocytes Abs Auto 0.16 10^3/uL (0.00-0.03); Immature Granulocytes Pct Auto 1.2 % (0.0-0.5); Lymphocytes Absolute Auto 0.4 10^3/uL (1.2-3.8); Lymphocytes Percent Auto 2.7 % (20.5-60.0); Mean Corpuscular HGB Conc 33.1 g/dL (29.9-35.2); Mean Corpuscular Hemoglobin 30.9 pg (25.9-34.0); Mean Corpuscular Volume 93.4 fL (80.0-94.0); Mean Platelet Volume 10.1 fL (9.5-13.5); Monocytes Absolute Auto 0.4 10^3/uL (0.3-0.8); Neutrophils Absolute Auto 12.2 10^3/uL (1.4-6.5); Neutrophils Percent Auto 92.9 % (43.0-75.0); Platelet Count 161 10^3/uL (150-450); Red Blood Count 3.79 10^6/uL (4.70-6.10); Red Cell Distribution Width 13.7 % (11.0-15.0); White Blood Count 13.1 10^3/uL (4.0-11.0)
[2024-03-08 06:11] LABS: Alanine Aminotransferase 31 U/L (16-63); Albumin Globulin Ratio 0.8; Albumin Level 2.9 g/dL (3.4-5.0); Alkaline Phosphatase 62 U/L (46-116); Anion Gap 9.4; Aspartate Amino Transferase 25 U/L (15-37); BUN Creatinine Ratio 14.3; Bilirubin Total 1.3 mg/dL (0.2-1.0); Calcium 8.4 mg/dL (8.5-10.1); Carbon Dioxide 31.1 mmol/L (21.0-32.0); Chloride 96 mmol/L (98-107); Estimated GFR (African America >60 (>=60 mL/min/1.73m^2); Estimated GFR (Non-African Ame >60 (>=60 mL/min/1.73m^2); Globulin 3.6 g/dL; Glucose 244 mg/dL (74-106); Magnesium 1.3 mg/dL (1.8-2.4); Potassium 3.5 mmol/L (3.5-5.1); Sodium 133 mmol/L (136-145); Total Protein 6.5 g/dL (6.4-8.2)
[2024-03-08 06:30] LABS: C Reactive Protein 12.72 mg/dL (<=0.50)
[2024-03-08 06:42] LABS: Source BLOOD
[2024-03-08 06:44] LABS: Streptococcus spp. DETECTED (NOT DETECTE)
--- OUTSIDE RECORDS SUMMARY | 2024-03-08 07:07 | XMS_ITS | CCD ---
Author Organization [facility] Care Team Providers Care Clock And Watch Assembler Name Role Phone MANISH RODRIGUEZ Primary Care Physician MD Timmy Santana Attending Provider MIKEY Verdin Primary Care Provider [phone] Divya Verdin Unavailable Unavailable Unavailable Unavailable Ritesh Ordonez Attending Unavailable Lambert, Mrs. Stokes Dona Primary Care Unav ailable Dr. Timmy Santana Referring Unavailab Daniel Huerta MD Primary Care Provider DO Silvio Yu II Attending Provider [phone] MD Timmy Santana Referring Provider DIVYA VERDIN [...] Care Unavailable MIKEY Verdin Primary Care Provider [phone] Amadeo, LIBRARY CIRCULATION TECHNICIAN-BC Roya E Emergency Provider [phone] Osiel Lewis Unavailable Divya Thornton Unavailable [phone] Manish Rodriguez MD Primary Care Provider [phone] Roya Childs Admitting Unavailable Roya Childs Attending Unavailable Divya Verdin Primary Care Unavailable Divya Verdin Primary Care Unavailable Osiel Lewis Admitting Unavailable Osiel Lewis Attending Unavailable Manish Rodriguez MD Unavailable DIVYA VERDIN Attending Unavailable DIVYA VERDIN Attending Unavailable DIVYA VERDIN Attending Unavailable DIVYA VERDIN Attending Unavailable DIVYA VERDIN Attending Unavailable Allergies Allergy Classification Reported Allergen(s) Allergy Type Date of Onset Reaction(s) Facility (1 source) No Known Medication Allergies; Translations: [No Known Medication Allergies] Propensity to adverse reactions (disorder) [facility] Medications Current Medications Medication [...] 2 diabetes mellitus with other specified complication (CMS/[facility]) 1 each Daily Test glucose once a day. 08/24/2023 Active Start: 02-02-2023 Blood Glucose Monitoring Suppl (D-Care Glucometer) w/Device kit Indications: Type 2 diabetes mellitus without complication, without long-term current use of insulin ([facility]) 1 each in the morning. Test [...] every week ergocalciferol (Vitamin D2) 1.25 MG (67962 UT) capsule Indications: Vitamin D deficiency TAKE 1 CAPSULE BY MOUTH once a week 12 capsule 3 09/06/2023 Active Start: 08-12-2022 take 1 capsule by mo [facility] every week ergocalciferol (Vitamin D2) 1.25 MG (97164 UT) capsule Indications: Vitamin D deficiency Take [...] every wee k Vitamin D3 1.25 MG (26818 UT) Oral Capsule one tablet weekly Quantity: [...] Comment on above: Take 1 capsule by [facility] twice daily. 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] Episodic Other endocrine [...] [Morbid obesity with BMI of 45.0-49.9, adult ([facility])] Onset: 07-12-2022 Chronic Other nutritional; endocrine; and metabolic disorders (1 source) Body mass index (BMI) 45.0-49.9, adult; Translations: [Morbid obesity with BMI of 45.0-49.9, adult ([facility])] Onset: 07-12-2022 Chronic Other nutritional; endocrine; [...] 12-28-2023 HbA1c (Bld) [Mass fraction] 7.3 % [facility] No Panel Informationon 12-27 Interpretation and review of laboratory results Abnormal On license of [facility] XR pre/post mri xrayon 01-28 XR pre/post mri xray [facility] [place] [address] MRI Report Signed Patient: Juan Bean JR MR#: [id number] : 1965 Acct:[id number] Age/Sex: 58 / M ADM Date: 01/28/23 Loc: MR Room: Type: [facility] Attending Dr: Osiel Lewis MD Copies to: Osiel Lewis MD Ordering Provider: Osiel Lewis MD Date of Service: 01/28/23 MR/MR lumbar spine wo con: M54.16 ([id number]) XR/XR pre/post mri xray: PRE MRI LUMBAR [...] Tyrese Coon M.D.01/28/2023 9:08 PM Dictation Location: [place] [address] Transcribed By: [facility] 01/28/232107 Dictated By: Tyrese Coon II, MD 01/28/232056 Signed By: 01/28/232107 [place] [facility] CT hip RT wo [facility] [place] 3 CT hip RT wo [facility] [place] [address] CT Scan Report Signed Patient: Juan Bean JR MR#: [id number] : 1965 Acct:[id number] Age/Sex: 57 / M ADM Date: 12/01/22 Loc: ER Room: Type: [facility] ER Attending Dr: Copies to: POLO Andrade [...] Tyrese Coon M.D.12/01/2022 10:10 AM Dictation Location: [place] [address] Transcribed By: [facility] 12/01/22 1010 Dictated By: Tyrese Coon II, MD 12/01/22 1002 Signed By: 12/01/22 1010 Normal [facility] Pre-Certification Formon Pre-Certification Form [id number]#1.00CD:127 [facility] RAD - CT Reporton 09-06-2022 RAD - CT Report [id number]#1.00CD:127 [facility] Consultation Noteon 08-27-19 Consultation Note [id number]#1.00CD:127 [facility] CNPNon 08-19-2022 CNPN Telephone (UROLMN) -- JUAN BEAN ([id number]) 1965 M Date Time Provider Department 08/19/22 [...] Encounter Status:Closed by VÍCTOR ROSALES on 08/19/22 [facility] ANES POSTPROC EVALon 023 ANES POSTPROC EVAL HNO ID: [id number] Author: Brennan Henley MD Service: ? Author Type: Anesthesiologist Type: Anesthesia Postprocedure Evaluation Filed: 08/13/2022 5:07 PM Note Text: POST ANESTHESIA EVALUATION NOTE : 1965 Procedure Summary Date: 08/13/22 Room / Location: [address] [facility] Anesthesia Start: 1448 Anesthesia Stop: [...] August 13, 2022 TIME: 5:06 PM CSN: [id number] Normal [facility] ANES PRE-OPon 08-13-2022 ANES PRE-OP HNO ID: [id number] Author: Brennan Henley MD Service: ? Author Type: Anesthesiologist Type: Anesthesia Preprocedure Evaluation Filed: 08/13/2022 1:52 PM Note Text: ANESTHESIOLOGY DAY OF SURGERY NOTE : 1965 Procedure Information Date/Time: 08/13/22 1310 Procedures: BIOPSY PENIS (Penis) EXCISION BENIGN LESION GENITALS 3.1 TO 4.0 CM (Penis) [facility]: Víctor Rosales MD Estimated body [...] August 13, 2022 TIME: 1:51 PM CSN: [id number] [facility] BRIEF OP NOTon 08-13-2022 BRIEF OP NOT HNO ID: [id number] Author: Vinh Montague MD Service: Urology Author Type: Resident Type: Brief Op Note Filed: 08/13/2022 4:03 PM Note Text: UROLOGY SERVICE BRIEF OPERATIVE NOTE LOG ID: [id number] Surgery/Procedure Date: 08/13/2022 Incision/Procedure Start Time: 3:30 PM Incision Close/Procedure End Time: 3:57 PM Patient Age: [age] year old Surgeon(s)/Proceduralist(s ) and Eight Section Blower(s): Surgeon(s) and Role: * Víctor Rosales MD [...] 2022 TIME: 4:00 PM PAGER/CONTACT #: Normal [facility] CNCOon 08-13-2022 CNCO Letter Text Normal [facility] HISTORY PHYSICALon HISTORY PHYSICAL HNO ID: [id number] Author: Hollis Lugo MD Service: Urology Author Type: Resident Type: HANDP Filed: 08/13/2022 12:31 PM Note Text: -- Attestation signed by Víctor Rosalse MD at 08/13/2022 2:06 PM Discussed with [...] Hollis Lugo MD, MS Urology PGY-2 Pager: [phone] [facility] Urology Service Pager: [phone] [facility] NURSING PROGon 08-13-2022 NURSING PROG HNO ID: [id number] Author: Fany Dorado RN Service: ? Author Type: Registered Nurse Type: Nursing Progress Note Filed: 08/13/2022 7:21 PM Note Text: Nursing Progress Note Topic of Note: Maria D Bean [id number] Urology Resident Slitting Machine Feeder text paged: Can you please call me re: . Bean M023-33, needs letter written not to work for at least one week. Thanks Fany [phone] This note was completed by: Fany Dorado RN [facility] NURSING PROG HNO ID: [id number] Author: Fany Dorado RN Service: ? Author Type: Registered Nurse Type: Nursing Progress Note Filed: 08/13/2022 7:10 PM Note Text: Nursing Progress Note Topic of Note: Maria D Bean [id number] Dr. Rosales text paged: Mr. 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 Needs work excuse if can't go to work. Please call [phone]. Fany This note was completed by: Fany Dorado RN [facility] NURSING PROG HNO ID: [id number] Author: Fany Dorado RN Service: ? Author Type: Registered Nurse Type: Nursing Progress Note Filed: 08/13/2022 7:06 PM Note Text: Nursing Progress Note Topic of Note: Incidental Juan Pack Aniwa [id number] Dr. Montague (urology surgical garment inspector) text paged: good afternoon, Mr. Bean M023-34, ? re: work, lifting, [place] [phone]? Thanks, Fany [id number] This note was completed by: Fany Dorado RN [facility] NURSING PROG HNO ID: [id number] Author: Fany Dorado RN Service: ? Author [...] None Electronically Signed By: Fany Dorado RN [facility] NURSING PROG HNO ID: [id number] Author: Marisel Jones, ОЛЕГ Service: Nursing Author Type: Registered Nurse Type: Nursing Progress Note Filed: 08/13/2022 12:06 PM Note Text: Other: [facility] Nursing Note Dr. Henley, anesthesia, paged M23-38, OR , [facility], [facility] patient's pre-op blood sugar is 197. Held PO diabetic meds per pre-op instructions. Thanks, Karla Hylton288 Urology resident paged [phone]) for updated HANDP. [id number], OR 21 - [facility], Patient's HANDP needs updated, > 30 days. Thanks, Karla Manzanares [facility] OPERATIVE NOon 08-13-2022 OPERATIVE NO HNO ID: [id number] Author: Víctor Rosales MD Service: Urology Author Type: Physician Type: Operative Report Filed: 08/16/2022 9:36 AM Note Text: UROLOGY OPERATIVE REPORT LOG ID: [id number] Surgery/Procedure Date: 08/13/2022 Incision/Procedure Start Time: 3:30 PM Incision Close/Procedure End Time: 3:57 PM Surgeon(s)/Proceduralist(s ) and Eight Section Blower(s): Surgeon(s) and Role: * Víctor Rosales MD [...] A glans traction suture was placed to butadiene converter helper in exposure of the penis. Exam [...] procedure with (more content not included)... Normal [facility] SURGICAL PATHOLOGYon 023 CASE REPORT Normal [facility] Comment on above: Order Comment: Speci men Type: TISSUE SPECIMENOrdering Facility: [facility] Address: [address] [place] [phone] Result Comment: [facility] Pathology Report Case: [id number] Authorizing Provider: Víctor Rosales MD Collected: 08/13/2022 03:33 PM Ordering Location: Admitting Received: 08/13/2022 04:30 PM Pathologist: Nazia Dunne MD Specimens: A) - PENIS BIOPSY, distal ventral penile lesion B) - PENIS BIOPSY, left dorsal glans penis C) - PENIS BIOPSY, dorsal distal penile skin Performed By: #### S ####[facility] LABCLIA [id number] [place] [address] [place] CLINICAL HISTORY Normal [facility] Comment on above: Order Comment: Speci men Type: TISSUE SPECIMENOrdering Facility: [facility] Address: [address] [place] [address] Result Comment: 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 D istal ventral penile lesion, excision: -Lichen sclerosus. -Skin with ulceration, acute and chronic inflammation and reactive changes. -Negative for malignancy. B. Left dorsal glans penis, biopsy: -Lichen sclerosus. -Negative for malignancy. C. Distal dorsal penile skin, biopsy: -Benign skin with acute and chronic inflammation. Performed By: #### S ####[facility] LABIA [id number] [address] [place] FINAL PERFORMING LAB Normal [facility] Comment on above: Order Comment: Speci men Type: TISSUE SPECIMENOrdering Facility: [facility] Address: [address] [place] [address] Result Comment: Diag nostic interpretation performed at [facility], [address] [place] [address] CLIA# [id number] Toy Electric Train Repairer: Antonio Peters M.D. Performed By: #### S ####[facility] LABCLIA [id number] [place] [address] [place] GROSS DESCRIPTION A. PENIS BIOPSY Normal [facility] Comment on above: Order Comment: Speci men Type: TISSUE SPECIMENOrdering Facility: [facility] Address: [address] [place] [address] Result Comment: Rece ived in formalin labeled [...] 2022 1:19 PM Gross examination performed at [facility], [address] [place] [address] Performed By: #### S ####[facility] LABCLIA [id number] [facility] [id number] [place] Bernadette 07-28-2022 DANGELO Telephone (DARLING) -- JUAN BEAN ([id number]) 1965 M Date Time Provider Department 07/28/22 [...] Fully Assessed Reason for Visit: Patient Question [5308] Cmt: Patient call with Marco Antonio Michael [...] Encounter Status:Closed by NEEMA ARIAS on 07/28/22 [facility] 07-27-2022 CNPN Telephone (UROLBE) -- JUAN BEAN ([id number]) 1965 M Date Time Provider Department 07/27/22 MARCO ANTONIO MICHAEL UROLBE During your visit today, we recorded the following information about you: Marco Antonio Michael APRN.[facility] 07/27/2022 1:33 PM Signed ----- Message [...] Please advise and thank you, Atiya Michael APRN.MANAGER RESEARCH AND DEVELOPMENT 07/27/2022 1:41 PM Signed Called Juan Bean. [...] questions at this time. Marco Antonio Michael, SHAHZAD.MANAGER RESEARCH AND DEVELOPMENT Allergies As of Date: 07/27/2022 (No Known [...] Status:Closed by MARCO ANTONIO MICHAEL on 07/27/22 [facility] Consultation Noteon 07-19-19 Consultation Note [id number]#[id number]:127 [facility] Consultation Noteon 07-15-19 Consultation Note [id number]#1.00CD:127 [facility] CNOVon 07-12-2022 CNOV Office Visit (UROLMN ) -- JUAN BEAN ([id number]) 1965 M Date Time Provider Department 07/12/22 8:30 AM VÍCTOR ROSALES During your visit today, we recorded the following information about you: Pulse Blood pressure Weight Height 92/minute 162/81 161.5 kg 1.854 m Víctor Rosales MD 07/12/2022 9:40 AM Signed COUNTS INCLUDE 234 BEDS AT THE [facility] NEW PATIENT HISTORY AND PHYSICAL [...] for internal providers or letter via the [employer] Postal Service for external providers. ====== HISTORY [...] signed = (more content not included)... Normal [facility] URINALYSIS, REFLEX MICROSCOP ICon 07-12-2022 Bilirubin Ql (U) Negative Normal Negative [facility] Comment on above: Order Comment: Speci men Type: URINE SPECIMENOrdering Facility: [facility] Address: [address] [place] [address] Performed By: #### L [id number] ####[facility] LABCLIA [id number] [place] [address] [place] Clarity (Unsp spec) Clear Normal Clear [facility] Comment on above: Order Comment: Speci men Type: URINE SPECIMENOrdering Facility: [facility] Address: [address] [place] [address] Performed By: #### L [id number] ####[facility] LABCLIA [id number] [place] [address] [place] Color (U) Light Yellow Normal Yellow [facility] Comment on above: Order Comment: Speci men Type: URINE SPECIMENOrdering Facility: [facility] Address: [address] [place] [address] Performed By: #### L [id number] ####[facility] LABCLIA [id number] [place] [address] [place] Glucose Test strip (U) [Mass/Vol] Negative Normal Trace, Negative [facility] Comment on above: Order Comment: Speci men Type: URINE SPECIMENOrdering Facility: [facility] Address: [address] [place] [address] Performed By: #### L [id number] ####[facility] LABCLIA [id number] [place] [address] [place] Hemoglobin Ql (U) Negative Normal Negative, Trace [facility] Comment on above: Order Comment: Speci men Type: URINE SPECIMENOrdering Facility: [facility] Address: [address] [place], [place] [address] Performed By: #### L [id number] ####[facility] LABCLIA [id number] [place] [address] [place] Ketones Ql (U) Negative Normal Negative, Trace [facility] Comment on above: Order Comment: Speci men Type: URINE SPECIMENOrdering Facility: [facility] Address: [address] Performed By: #### L [id number] ####[facility] LABCLIA [id number] [place] [address] [place] Leukocyte esterase Test strip Ql (U) 75 Doreen/uL Abnormal Negative, 25 Doreen/uL [facility] Comment on above: Order Comment: Speci men Type: URINE SPECIMENOrdering Facility: [facility] Address: [address] [place] [address] Performed By: #### L [id number] ####[facility] LABIA [id number] [place] [address] [place] Nitrite Ql (U) Negative Normal Negative [facility] Comment on above: Order Comment: Speci men Type: URINE SPECIMENOrdering Facility: [facility] Address: [address] [place], [place] [address] Performed By: #### L [id number] ####[facility] LABIA [id number] [place] [address] [place] pH (U) 5.5 [pH] Normal 5.0-8.0 [facility] Comment on above: Order Comment: Speci men Type: URINE SPECIMENOrdering Facility: [facility] Address: [address] [place], [place] [address] Performed By: #### L [id number] ####[facility] LABIA [id number] [place] [address] [place] Protein (U) [Mass/Vol] Negative Normal Trace , Negative [facility] Comment on above: Order Comment: Speci men Type: URINE SPECIMENOrdering Facility: [facility] Address: [address] [place], [place] [address] Performed By: #### L [id number] ####[facility] LABIA [id number] [place] [address] [place] Specific gravity (U) [Rel density] 1.018 Normal 1.005-1.030 [facility] Comment on above: Order Comment: Speci men Type: URINE SPECIMENOrdering Facility: [facility] Address: [address] [place], [place] [address] Performed By: #### L [id number] ####[facility] LABIA [id number] [place] [address] [place] Urobilinogen Ql (U) Negative Normal Negative [facility] Comment on above: Order Comment: Speci men Type: URINE SPECIMENOrdering Facility: [facility] Address: [address] [place] [address] Performed By: #### L [id number] ####[facility] LABCLIA [id number] MAG[facility]PITALGabrielle [id number] OF [facility] Bilirubin Ql (U) Negative Negative [facility] Clarity (Unsp spec) Clear Clear [facility] Color (U) Light Yellow Yellow [facility] Glucose Test strip (U) [Mass/Vol] Negative Trace, Negative [facility] Hemoglobin Ql (U) Negative Negative, Trace [facility] Ketones Ql (U) Negative Negative, Trace [facility] Leukocyte esterase Test strip Ql (U) 75 Doreen/uL Abnormal Negative, 25 Doreen/uL [facility] Nitrite Ql (U) Negative Negative [facility] pH (U) 5.5 [pH] 5.0 - 8.0 [facility] Protein (U) [Mass/Vol] Negative Trace , Negative [facility] Specific gravity (U) [Rel density] 1.018 1.005 - 1.030 [facility] Urobilinogen Ql (U) Negative Negative [facility] Pathology Noteon 07-06-2022 Pathology Note [id number]:127 [facility] Alanine aminotransferase [En zymatic activity/volume] in Serum or PlasmaOrdered By: Silvio Yu on 06-30-2022 ALT [Catalytic activity/Vol] 20 U/L 7-52 [facility] Albumin [Mass/volume] in Ser um or Plasma by Bromocresol green (BCG) dye binding methoOrdered By: Silvio Yu on 06-30-2022 Albumin BCG dye [Mass/Vol] 4.5 g/dL 3.5-5.7 [facility] Alkaline phosphatase [Enzyma tic activity/volume] in Serum or PlasmaOrdered By: Silvio Yu on 06-30-2022 ALP [Catalytic activity/Vol] 57 U/L 34-104 [facility] Aspartate aminotransferase [ Enzymatic activity/volume] in Serum or PlasmaOrdered By: Silvio Yu on 06-30-2022 AST [Catalytic activity/Vol] 17 U/L 13-39 [facility] Basophils Auto (Bld) [#/Vol] Ordered By: Silvio Yu on 06-30-2022 Basophils (Bld) [#/Vol] 0.0 10*3/uL 0.0-0.2 [facility] Basophils/100 WBC Auto (Bld) Ordered By: Silvio Yu on 06-30-2022 Basophils/100 WBC (Bld) 0.2 % . [facility] Bilirubin.total [Mass/volume ] in Serum or PlasmaOrdered By: Silvio Yu on 06-30-2022 Bilirubin [Mass/Vol] 0.7 mg/dL 0.3-1.0 [facility] Calcium [Mass/volume] in Ser um or PlasmaOrdered By: Silvio Yu on 06-30-2022 Calcium [Mass/Vol] 9.7 mg/dL 8.6-10.3 [facility] Carbon dioxide, total [Moles /volume] in Serum or PlasmaOrdered By: Silvio Yu on 06-30-2022 CO2 [Moles/Vol] 29.5 mmol/L 21.0-31.0 [facility] Chloride [Moles/volume] in S radha or PlasmaOrdered By: Silvio Yu on 06-30-2022 Chloride [Moles/Vol] 98 mmol/L 98-107 [facility] Creatinine [Mass/volume] in Serum or PlasmaOrdered By: Silvio Yu on 06-30-2022 Creatinine [Mass/Vol] 0.85 mg/dL 0.70-1.30 [facility] Eosinophils Auto (Bld) [#/Vo l]Ordered By: Silvio Yu on 06-30-2022 Eosinophils (Bld) [#/Vol] 0.1 10*3/uL 0.0-0.45 [facility] Eosinophils/100 WBC Auto (Bl d)Ordered By: Silvio Yu on 06-30-2022 Eosinophils/100 WBC (Bld) 1.3 % . [facility] Erythrocyte distribution wid th Auto (RBC) [Ratio]Ordered By: Silvio Yu on 06-30-2022 Erythrocyte distribution width (RBC) [Ratio] 13.8 % 12.0-14.8 [facility] Globulin Calc (S) [Mass/Vol] Ordered By: Silvio Yu on 06-30-2022 Globulin (S) [Mass/Vol] 3.1 g/dL [facility] Glucose [Mass/volume] in Ser um or PlasmaOrdered By: Silvio Yu on 06-30-2022 Glucose [Mass/Vol] 154 mg/dL 70-100 [facility] Comment on above: ADA recommended refe rence rangeRandom Glucose Reference Range is dependent on time and content of last meal. Glucose of more than 200 mg/dL in a nonstressed, ambulatory subject supports the diagnosis of Diabetes Mellitus. Hematocrit Auto (Bld) [Volum e fraction]Ordered By: Silvio Yu on 06-30-2022 Hematocrit (Bld) [Volume fraction] 43.8 % 38.8-50.0 [facility] Hemoglobin [Mass/volume] in BloodOrdered By: Silvio Yu on 06-30-2022 Hemoglobin (Bld) [Mass/Vol] 14.7 g/dL 13.0-17.0 [facility] Leukocytes [#/volume] correc mariah for nucleated erythrocytes in Blood by Automated counOrdered By: Silvio Yu on 06-30-2022 WBC corrected for nucl RBC Auto (Bld) [#/Vol] 8.5 10*3/uL 4.1-10.5 [facility] Lymphocytes Auto (Bld) [#/Vo l]Ordered By: Silvio Yu on 06-30-2022 Lymphocytes (Bld) [#/Vol] 1.3 10*3/uL 1.00-4.8 [facility] Lymphocytes/100 WBC Auto (Bl d)Ordered By: Silvio Yu on 06-30-2022 Lymphocytes/100 WBC (Bld) 15.0 % . [facility] MCH Auto (RBC) [Entitic mass ]Ordered By: Silvio Yu on 06-30-2022 MCH (RBC) [Entitic mass] 30.4 pg 27.5-35.2 [facility] MCHC Auto (RBC) [Mass/Vol]Or dered By: Silvio Yu on 06-30-2022 MCHC (RBC) [Mass/Vol] 33.6 g/dL 32.5-35.6 [facility] MCV Auto (RBC) [Entitic vol] Ordered By: Silvio Yu on 06-30-2022 MCV (RBC) [Entitic vol] 90.6 fL 83.5-101 [facility] Monocytes Auto (Bld) [#/Vol] Ordered By: Silvio Yu on 06-30-2022 Monocytes (Bld) [#/Vol] 0.7 10*3/uL 0.0-0.8 [facility] Monocytes/100 WBC Auto (Bld) Ordered By: Silvio Yu on 06-30-2022 Monocytes/100 WBC (Bld) 8.8 % . [facility] Neutrophils Auto (Bld) [#/Vo l]Ordered By: Silvio Yu on 06-30-2022 Neutrophils (Bld) [#/Vol] 6.3 10*3/uL 1.8-7.7 [facility] Neutrophils/100 WBC Auto (Bl d)Ordered By: Silvio Yu on 06-30-2022 Neutrophils/100 WBC (Bld) 74.7 % . [facility] No Panel InformationOrdered By: Silvio Yu on 06-30-2022 Estimated GFR (CKD-EPI) > 60.0 mL/Min [facility] Creatinine Clearance (Chem 154.44 [facility] Nucleated erythrocytes [Pres ence] in Blood by Automated countOrdered By: Silvio Yu on 06-30-2022 Nucleated RBC Auto Ql (Bld) 0.1 /100{WBC} 0-0.5 [facility] Platelet mean volume Auto (B ld) [Entitic vol]Ordered By: Silvio Yu on 06-30-2022 Platelet mean volume (Bld) [Entitic vol] 8.3 fL 6.6-10.1 [facility] Platelets Auto (Bld) [#/Vol] Ordered By: Silvio Yu on 06-30-2022 Platelets (Bld) [#/Vol] 173 10*3/uL 150-450 [facility] Potassium [Moles/volume] in Serum or PlasmaOrdered By: Silvio Yu on 06-30-2022 Potassium [Moles/Vol] 4.1 mmol/L 3.5-5.1 [facility] Protein [Mass/volume] in Ser um or PlasmaOrdered By: Silvio Yu on 06-30-2022 Protein [Mass/Vol] 7.6 g/dL 6.4-8.9 [facility] RBC Auto (Bld) [#/Vol]Ordere d By: Silvio Yu on 06-30-2022 RBC (Bld) [#/Vol] 4.83 10*6/uL 3.90-5.60 [facility] Serum or plasma albumin/glob ulin mass ratioOrdered By: Silvio Yu on 06-30-2022 Albumin/Globulin [Mass ratio] 1.5 {ratio} [facility] Serum or plasma anion gap de terminationOrdered By: Silvio Yu on 06-30-2022 Anion gap [Moles/Vol] 12.6 mmol/L 6.0-15.0 [facility] Serum or plasma carcinoembry onic antigen measurement (mass/volume)Ordered By: Silvio Yu on 06-30-2022 Carcinoembryonic Ag [Mass/Vol] 1.7 ng/mL 0.0-3.0 [facility] Sodium [Moles/volume] in Ser um or PlasmaOrdered By: Silvio Yu on 06-30-2022 Sodium [Moles/Vol] 136 mmol/L 136-145 [facility] Urea nitrogen [Mass/volume] in Serum or PlasmaOrdered By: Silvio Yu on 06-30-2022 Urea nitrogen [Mass/Vol] 20 mg/dL 7-25 [facility] WBC Auto (Bld) [#/Vol]Ordere d By: Silvio Yu on 06-30-2022 WBC (Bld) [#/Vol] 8.5 10*3/uL 4.1-10.5 [facility] Pathology Noteon 06-28-2022 Pathology Note [id number]#1.00CD:127 [facility] Pathology Noteon 06-24-2022 Pathology Note [id number]#1.00CD:127 [facility] Physician Referralon 023 Physician Referral [id number]#1.00CD:127 [facility] Pathology Noteon 06-23-2022 Pathology Note [id number]#1.00CD:127 [facility] SURGICAL PATHOLOGY REFERENCE LAB CONSULTon 06-23-2022 CASE REPORT Normal [facility] Comment on above: Order Comment: Speci men Type: SLIDEOrdering Facility: [facility] Address: [address] [place], [place] [address] Result Comment: Surg ical Pathology Report Case: [id number] Authorizing Provider: Ritesh Calderon MD Collected: 06/23/2022 10:07 AM Ordering Location: [facility] Main Received: 06/23/2022 10:07 AM Pathologist: Shubham Pritchett MD, PhD Specimen: SLIDE(S), 3 SLIDES ([id number]) Performed By: #### L [id number] ####[facility] LABCLIA [id number] [place] [address] [place] CLINICAL HISTORY CONSULT REQUESTED [facility] Comment on above: Order Comment: Speci men Type: SLIDEOrdering Facility: [facility] Address: [address] [place] [id number] Performed By: #### L [id number] ####[facility] LABCLIA [id number] [place] [address] [place] DIAGNOSIS COMMENT [facility] Comment on above: Order Comment: Speci men Type: SLIDEOrdering Facility: [facility] Address: [address] [place], [place] [address] Result Comment: Many thanks for sending in consultation this excision specimen from the penis of a 57-year-old male. Histologic sections demonstrate a keratinocytic neoplasm composed of full-thickness keratinocyte dysplasia with invasive irregular islands of atypical keratinocytes. These islands demonstrate marked cellular atypia and mitotic activity. Enclosed immunohistochemical stains are reviewed at the [facility]. A Ki-67 stain demonstrates an increased proliferative index amongst the lesional cells. A stain for p16 is diffusely positive in the dysplastic areas. These findings support the above diagnosis. Overall, I agree with Dr. 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 The squamous cell carcinoma involves the excision margins. Performed By: #### L [id number] ####[facility] LABCLIA [id number] [address] OF [facility] FINAL DIAGNOSIS Normal [facility] Comment on above: Order Comment: Speci men Type: SLIDEOrdering Facility: [facility] Address: [address] [place], [place] [address] Result Comment: A. Allegra clemons, foreskin, circumcision ( [id number], 06/01/2022) : -Invasive moderately differentiated squamous cell carcinoma, see comment. AF/CK 06/23/2022 Performed By: #### L [id number] ####[facility] LABCLIA [id number] [address] OF [facility] FINAL PERFORMING LAB Normal [facility] Comment on above: Order Comment: Speci men Type: SLIDEOrdering Facility: [facility] Address: [address] [place], [place] [address] Result Comment: Diag nostic interpretation performed at [facility], [address] [place] [address] CLIA# [id number] [employer] Repairer: Antonio Peters M.D. Performed By: #### L [id number] ####[facility] LABCLIA [id number] [address] [address] [place] Consultation Noteon 06-23-19 Consultation Note [id number]#1.00CD:127 [facility] Screenson 06-22-2022 Screens [id number]#1.00CD:127 [facility] Patient Educationon 06-22-19 Patient Education [...] shower gels that have fragrance. ? Take unul-rmc-kellbqp and prescription medicines only as told by [...] 02/03/2018 (more content not included)... Normal [facility] Urology Office/Clinic Noteon 06-21-2022 Urology Office/Clinic Note Chief Complaint Pt is here for PO circumcision HPI Staff Jaun is a 57 y.o. male here for [...] URL In 2 months 08/21/2022 EDT [address] [place] [address]- Additional Instructions: Patient Education Ramona Christiansen , [...] influenza virus vaccine, inactivated 12/06/2016 Recorded [facility] Comment on above: Result Comment: Elec tronically Signed By: RHONDA PROCTOR, Timmy Howard\.br\Date and Time Signed: 06/21/22 09:30 EDT\.br\Electronically Co-Signed By: Ramona Yost MA\.br\Date and Time Co-Signed: 06/21/22 09:11 EDT Pathology Noteon 06-16-2022 Pathology Note [id number]#1.00CD:127 [facility] Operative Reporton Operative Report [id number]#1.00CD:127 [facility] Consultation Noteon 06-01-19 Consultation Note [id number]#1.00CD:127 [facility] Consultation Note [id number]#1.00CD:127 [facility] Glucose Glucometer (BldC) [M ass/Vol]Ordered By: Timmy Santana on 05-31-2022 Glucose [Mass/Vol] 176 mg/dL [facility] Comment on above: Random Glucose Refer ence Range is dependent on time and content of last meal. Glucose of more than 200 mg/dL in a nonstressed, ambulatory subject supports the diagnosis of Diabetes Mellitus. 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 Normal [facility] Tobacco Screening.on 023 Adult depression screening assessment No [facility] Britely DO Work Phone: Fall risk assessment c) Not medically indicated [facility] Britely DO Work Phone: Tobacco use status CP b) No [facility] [employer] 250 DO Work Phone: Activated partial thrombopla stin time (aPTT) in platelet poor plasma by coagulation aOrdered By: Timmy Santana on 05-17-2022 aPTT Coag (PPP) [Time] 31.0 s 25.1-36.5 [facility] Basophils Auto (Bld) [#/Vol] Ordered By: Timmy Santana on 05-17-2022 Basophils (Bld) [#/Vol] 0.0 10*3/uL 0.0-0.2 [facility] Basophils/100 WBC Auto (Bld) Ordered By: Timmy Santana on 05-17-2022 Basophils/100 WBC (Bld) 0.6 % . [facility] Calcium [Mass/volume] in Ser um or PlasmaOrdered By: Timmy Santana on 05-17-2022 Calcium [Mass/Vol] 9.5 mg/dL 8.6-10.3 [facility] Carbon dioxide, total [Moles /volume] in Serum or PlasmaOrdered By: Timmy Santana on 05-17-2022 CO2 [Moles/Vol] 27.9 mmol/L 21.0-31.0 [facility] Chloride [Moles/volume] in S radha or PlasmaOrdered By: Timmy Santana on 05-17-2022 Chloride [Moles/Vol] 98 mmol/L 98-107 [facility] Creatinine [Mass/volume] in Serum or PlasmaOrdered By: Timmy Santana on 05-17-2022 Creatinine [Mass/Vol] 0.75 mg/dL 0.70-1.30 [facility] Eosinophils Auto (Bld) [#/Vo l]Ordered By: Timmy Santana on 05-17-2022 Eosinophils (Bld) [#/Vol] 0.1 10*3/uL 0.0-0.45 [facility] Eosinophils/100 WBC Auto (Bl d)Ordered By: Timmy Santana on 05-17-2022 Eosinophils/100 WBC (Bld) 1.2 % . [facility] Erythrocyte distribution wid th Auto (RBC) [Ratio]Ordered By: Timmy Santana on 05-17-2022 Erythrocyte distribution width (RBC) [Ratio] 13.8 % 12.0-14.8 [facility] Glucose [Mass/volume] in Ser um or PlasmaOrdered By: Timmy Santana on 05-17-2022 Glucose [Mass/Vol] 172 mg/dL 74-109 [facility] Comment on above: ADA recommended refe rence rangeRandom Glucose Reference Range is dependent on time and content of last meal. Glucose of more than 200 mg/dL in a nonstressed, ambulatory subject supports the diagnosis of Diabetes Mellitus. Hematocrit Auto (Bld) [Volum e fraction]Ordered By: Timmy Santana on 05-17-2022 Hematocrit (Bld) [Volume fraction] 39.5 % 38.8-50.0 [facility] Hemoglobin [Mass/volume] in BloodOrdered By: Timmy Santana on 05-17-2022 Hemoglobin (Bld) [Mass/Vol] 13.7 g/dL 13.0-17.0 [facility] Laboratory - Chemistry and C hemistry - challengeOrdered By: Timmy Santana on 05-17-2022 GFR/1.73 sq M.predicted MDRD (S/P/Bld) [Vol rate/Area] mL/min/{1.73_m2} [facility] Laboratory - CoagulationOrde red By: Timmy Santana on 05-17-2022 PT Coag (PPP) [Time] 11.9 s 9.0-12.9 [facility] Leukocytes [#/volume] correc mariah for nucleated erythrocytes in Blood by Automated counOrdered By: Timmy Santana on 05-17-2022 WBC corrected for nucl RBC Auto (Bld) [#/Vol] 7.9 10*3/uL 4.1-10.5 [facility] Lymphocytes Auto (Bld) [#/Vo l]Ordered By: Timmy Santana on 05-17-2022 Lymphocytes (Bld) [#/Vol] 1.1 10*3/uL 1.00-4.8 [facility] Lymphocytes/100 WBC Auto (Bl d)Ordered By: Timmy Santana on 05-17-2022 Lymphocytes/100 WBC (Bld) 14.3 % . [facility] MCH Auto (RBC) [Entitic mass ]Ordered By: Timmy Santana on 05-17-2022 MCH (RBC) [Entitic mass] 30.8 pg 27.5-35.2 [facility] MCHC Auto (RBC) [Mass/Vol]Or dered By: Timmy Santana on 05-17-2022 MCHC (RBC) [Mass/Vol] 34.5 g/dL 32.5-35.6 [facility] MCV Auto (RBC) [Entitic vol] Ordered By: Timmy Santana on 05-17-2022 MCV (RBC) [Entitic vol] 89.2 fL 83.5-101 [facility] Monocytes Auto (Bld) [#/Vol] Ordered By: Timmy Santana on 05-17-2022 Monocytes (Bld) [#/Vol] 0.6 10*3/uL 0.0-0.8 [facility] Monocytes/100 WBC Auto (Bld) Ordered By: Timmy Santana on 05-17-2022 Monocytes/100 WBC (Bld) 7.5 % . [facility] Neutrophils Auto (Bld) [#/Vo l]Ordered By: Timmy Santana on 05-17-2022 Neutrophils (Bld) [#/Vol] 6.1 10*3/uL 1.8-7.7 [facility] Neutrophils/100 WBC Auto (Bl d)Ordered By: Timmy Santana on 05-17-2022 Neutrophils/100 WBC (Bld) 76.4 % . [facility] No Panel InformationOrdered By: Timmy Santana on 05-17-2022 Pharmacy Creatinine Clearance (Chem N/A [facility] Nucleated erythrocytes [Pres ence] in Blood by Automated countOrdered By: Timmy Santana on 05-17-2022 Nucleated RBC Auto Ql (Bld) 0.0 /100{WBC} 0-0.5 [facility] Platelet mean volume Auto (B ld) [Entitic vol]Ordered By: Timmy Santana on 05-17-2022 Platelet mean volume (Bld) [Entitic vol] 8.2 fL 6.6-10.1 [facility] Platelet poor plasma interna tional normalized ratio (INR) by coagulation assay (relatOrdered By: Timmy Santana on 05-17-2022 INR Coag (PPP) [Relative time] 1.0 {INR} [facility] Comment on above: INR Therapeutic Rang e [...] 05-17-2022 Platelets (Bld) [#/Vol] 174 10*3/uL 150-450 [facility] Potassium [Moles/volume] in Serum or PlasmaOrdered By: Timmy Santana on 05-17-2022 Potassium [Moles/Vol] 3.9 mmol/L 3.5-5.1 [facility] RBC Auto (Bld) [#/Vol]Ordere d By: Timmy Santana on 05-17-2022 RBC (Bld) [#/Vol] 4.43 10*6/uL 3.90-5.60 [facility] Serum or plasma anion gap de terminationOrdered By: Timmy Santana on 05-17-2022 Anion gap [Moles/Vol] 13.0 mmol/L 6.0-15.0 [facility] Sodium [Moles/volume] in Ser um or PlasmaOrdered By: Timmy Santana on 05-17-2022 Sodium [Moles/Vol] 135 mmol/L 136-145 [facility] Urea nitrogen [Mass/volume] in Serum or PlasmaOrdered By: Timmy Santana on 05-17-2022 Urea nitrogen [Mass/Vol] 16 mg/dL 7-25 [facility] WBC Auto (Bld) [#/Vol]Ordere d By: Timmy Santana on 05-17-2022 WBC (Bld) [#/Vol] 7.9 10*3/uL 4.1-10.5 [facility]son 05-12-2022 Forms [id number]#1.00CD:127 [facility] Physician Referralon 023 Physician Referral [id number]#1.00CD:127 [facility] 05-12-2022 Screens [id number]#1.00CD:127 [facility] Ambulatory Visit Summaryon 0 05-10-2022 Ambulatory Visit Summary JUAN BEAN :1965 Visit Date:05/10/2022 Ambulatory Visit Instructions Your Diagnosis Phimosis Balanoposthitis Hypogonadism male Tests Performed Urnls Dip Stick Auto w/o Microscopy POC 33212 Your Care Team Attending Physician - RHONDA [...] RHONDA PROCTOR, ROSCOE Garcia When: Where: [address] [place], [place] [id number]- Medications What How Much When Instructions Unchanged [...] Urnls Dip Stick Auto w/o Microscopy POC 89179 (05/10/2022) Bilirubin Urine Dipstick - Negative Blood Urine Dipstick - Trace-intact Glucose Urine Dipstick - Negative Ketones Urine Dipstick - Negative Leukocytes Urine Dipstick - Negative Nitrite Urine Dipstick - Negative Protein Urine Dipstick - Negative Specific [place] Urine Dipstick - 1.025 Urine Appearance Urine [...] ? Itc (more content not included)... [facility] Patient Educationon 05-11-19 23 Patient [...] shower gels that have fragrance. ? Take oqoz-ftk-icpuaqs and prescription medicines only as told by [...] Revised: 02/03/2018 (more content not included)... [facility] Vital Signs Date Time Vital Sign Value Performing Clinician Facility 12-28-2023 16:51-0400 Body height 185.4 cm Divya BRODERICK Work Phone: [facility] 12-28-2023 16:51-0400 Body mass index (BMI) [Ratio] 49.5 kg/m2 Divya BRODERICK Work Phone: [facility] 12-28-2023 16:51-0400 Body weight 170.19 kg Divya BRODERICK Work Phone: [facility] 12-28-2023 16:51-0400 Diastolic blood pressure 86 mm[Hg] Divya BRODERICK Work Phone: [facility] 12-28-2023 16:51-0400 Heart rate 93 /min Divya Verdin PA Work Phone: [facility] 12-28-2023 16:51-0400 Respiratory rate 16 /min Divya BRODERICK Work Phone: [facility] 12-28-2023 16:51-0400 SaO2% (BldA) [Mass fraction] 96 % Divya BRODERICK Work Phone: [facility] 12-28-2023 16:51-0400 Systolic blood pressure 142 mm[Hg] Divya Hemmer PA Work Phone: [facility] 04-20-2023 16:40-0500 Diastolic blood pressure 82 mm[Hg] Divya Hemmer PA Work Phone: [facility] 04-20-2023 16:40-0500 Systolic blood pressure 138 mm[Hg] Divya Hemmer PA Work Phone: [facility] 04-20-2023 16:28-0500 Body mass index (BMI) [Ratio] 46.39 kg/m2 Divya Hemmer PA Work Phone: [facility] 04-20-2023 16:28-0500 Body weight 159.49 kg Divya Hemmer PA Work Phone: [facility] 04-20-2023 16:28-0500 Heart rate 91 /min Divya Hemmer PA Work Phone: [facility] 04-20-2023 16:28-0500 Respiratory rate 18 /min Divya Hemmer PA Work Phone: [facility] 04-20-2023 16:28-0500 SaO2% (BldA) [Mass fraction] 97 % Divya Hemmer PA Work Phone: [facility] 02-02-2023 13:45-0500 Body height 185.42 cm Osiel Lewis Other [facility] Other 02-02-2023 13:45-0500 Diastolic blood pressure 70 mm[Hg] Osiel Lewis Other [facility] Other 02-02-2023 13:45-0500 SaO2% (BldA) [Mass fraction] 97 % Osiel Lewis Other [facility] Other 02-02-2023 13:45-0500 Systolic blood pressure 120 mm[Hg] Osiel Lewis Other [facility] Other 12-30-2022 16:00-0400 Body height 185.42 cm Osiel Lewis Other [facility] Other 12-30-2022 16:00-0400 Body mass index (BMI) [Ratio] 48.02 kg/m2 Osiel Lewis Other [facility] Other 12-30-2022 16:00-0400 Body weight 165.11 kg Osiel Lewis Other [facility] Other 12-30-2022 16:00-0400 Diastolic blood pressure 82 mm[Hg] Osiel Lewis Other [facility] Other 12-30-2022 16:00-0400 SaO2% (BldA) [Mass fraction] 96 % Osiel Lewis Other [facility] Other 12-30-2022 16:00-0400 Systolic blood pressure 138 mm[Hg] Osiel Lewis Other [facility] Other 12-01-2022 11:06-0400 Diastolic blood pressure 82 mm[Hg] PA-C Divya Hemmer Work Phone: [facility] 12-01-2022 11:06-0400 Heart rate 77 /min PA-C Divya Hemmer Work Phone: [facility] 12-01-2022 11:06-0400 Respiratory rate 19 /min PA-C Divya Hemmer Work Phone: [facility] 12-01-2022 11:06-0400 SaO2% (BldA) [Mass fraction] 97 % PA-C Divya Hemmer Work Phone: [facility] 12-01-2022 11:06-0400 Systolic blood pressure 158 mm[Hg] PA-C Divya Hemmer Work Phone: [facility] 12-01-2022 09:24-0400 Body temperature 98.6 [degF] PA-C Divya Hemmer Work Phone: [facility] 12-01-2022 09:23-0400 Body height 185.42 cm PA-C Divya Hemmer Work Phone: [facility] 12-01-2022 09:23-0400 Body weight 162.8 kg PA-C Divya Hemmer Work Phone: [facility] 07-13-2022 09:07-0400 Body temperature 98.2 [degF] PA-C Divya Hemmer Work Phone: [facility] 07-13-2022 09:07-0400 Body weight 169.68 kg PA-C Divya Hemmer Work Phone: [facility] 07-13-2022 09:07-0400 Diastolic blood pressure 89 mm[Hg] PA-C Divya Hemmer Work Phone: [facility] 07-13-2022 09:07-0400 Heart rate 80 /min PA-C Divya Hemmer Work Phone: [facility] 07-13-2022 09:07-0400 Respiratory rate 20 /min PA-C Divya Hemmer Work Phone: [facility] 07-13-2022 09:07-0400 SaO2% (BldA) [Mass fraction] 97 % PA-C Divya Hemmer Work Phone: [facility] 07-13-2022 09:07-0400 Systolic blood pressure 158 mm[Hg] PA-C Divya Hemmer Work Phone: [facility] 07-12-2022 08:52-0400 Body height 185.4 cm Víctor Rosales MD Work Phone: [facility] 07-12-2022 08:52-0400 Body weight 161.48 kg Víctor Rosales MD Work Phone: [facility] 07-12-2022 08:52-0400 Diastolic blood pressure 81 mm[Hg] Víctor Rosales MD Work Phone: [facility] 07-12-2022 08:52-0400 Heart rate 92 /min Víctor Rosales MD Work Phone: [facility] 07-12-2022 08:52-0400 Systolic blood pressure 162 mm[Hg] Víctor Rosales MD Work Phone: [facility] 06-22-2022 08:01-0400 Body height 185.42 cm PA-C Divya Hemmer Work Phone: [facility] 05-31-2022 17:55-0400 Diastolic blood pressure 77 mm[Hg] PA-C Divya Hemmer Work Phone: [facility] 05-31-2022 17:55-0400 Heart rate 92 /min PA-C Divya Hemmer Work Phone: [facility] 05-31-2022 17:55-0400 Respiratory rate 16 /min PA-C Divya Hemmer Work Phone: [facility] 05-31-2022 17:55-0400 SaO2% (BldA) [Mass fraction] 94 % PA-C Divya Hemmer Work Phone: [facility] 05-31-2022 17:55-0400 Systolic blood pressure 131 mm[Hg] PA-C Divya Hemmer Work Phone: [facility] 05-31-2022 17:25-0400 Inhaled oxygen flow rate 1 L/min PA-C Divya Hemmer Work Phone: [facility] 05-31-2022 16:26-0400 Body temperature 97.4 [degF] PA-C Divya Hemmer Work Phone: [facility] 05-31-2022 15:31-0400 Body height 185.42 cm PA-C Divya Conwaymer Work Phone: [facility] 05-31-2022 15:31-0400 Body mass index (BMI) [Ratio] 48.2 kg/m2 PA-C Divya Hemmer Work Phone: [facility] 05-31-2022 15:31-0400 Body weight 166 kg PA-C Divya Hemmer Work Phone: [facility] 05-20-2022 11:13-0400 Diastolic blood pressure 94 mm[Hg] Divya Verdin -[facility] DO Work Phone: 05-20-2022 11:13-0400 Systolic blood pressure 152 mm[Hg] Divya Verdin [facility] DO Work Phone: 05-20-2022 11:12-0400 Body height 185.42 cm Divya Verdin [facility] DO Work Phone: 05-20-2022 11:12-0400 Body mass index (BMI) [Ratio] 47.36 kg/m2 Divya Verdin [facility] [employer] DO Work Phone: 05-20-2022 11:12-0400 Body surface area Derived from formula 2.76 m2 Divya Verdin [facility] DO Work Phone: 05-20-2022 11:12-0400 Body weight 162.84 kg Divya Verdin -[facility] DO Work Phone: 05-20-2022 11:12-0400 Diastolic blood pressure 90 mm[Hg] Divya Verdin -[facility] DO Work Phone: 05-20-2022 11:12-0400 Heart rate 90 /min Divya Verdin [facility] [facility] DO Work Phone: 05-20-2022 11:12-0400 Systolic blood pressure 154 mm[Hg] Divya Verdin [facility] 250 DO Work Phone: 05-10-2022 10:54-0500 Diastolic blood pressure 85 mm[Hg] [facility] [facility] 05-10-2022 10:54-0500 Mean blood pressure 105 mm[Hg] Fusion Antibodies [facility] 05-10-2022 10:54-0500 Respiratory rate 70 /min Fusion Antibodies [facility] 05-10-2022 10:54-0500 Systolic blood pressure 146 mm[Hg] Fusion Antibodies [facility] 05-10-2022 10:37-0500 Blood Pressure Location Fusion Antibodies [facility] 05-10-2022 10:37-0500 Diastolic blood pressure 90 mm[Hg] Fusion Antibodies [facility] 05-10-2022 10:37-0500 Heart rate 84 /min Fusion Antibodies [facility] 05-10-2022 10:37-0500 Systolic blood pressure 150 mm[Hg] Fusion Antibodies [facility] Encounters Encounter Date Encounter Type Care Provider Facility Start: 12-28-2023 End: 12-28-2023 Office outpatient visit 25 minutes Divya Verdin PA Work Phone: [facility] Comment on above: Type 2 diabetes yareli itus with other specified complication, without long-term current use of insulin ([facility]) (Primary Dx); Primary hypertension (CMS/HCC); Morbid [...] Start: 02-02-2023 End: 02-02-2023 ambulatory DIVYA VERDIN [facility] [employer] Other Start: 02-02-2023 Office outpatient vi sit 15 minutes Osiel Joshua [facility] Start: 01-28-2023 End: 01-28-2023 ambulatory Divya Hemmer Facility:[facility] Start: 12-30-2022 End: 12-30-2022 ambulatory Osielsilvano Lewis Other [facility] [employer] Other Start: 12-30-2022 Office consultation new/estab patient 60 min Osiel Joshua [facility] Start: 12-01-2022 End: 12-01-2022 Emergency department patient visit PA-Falguni Verdin Work Phone: [facility]-Emergency Room Work Phone: Start: 11-09-2022 End: 11-10-2022 ambulatory DIVYA HEMMER Facility:[facility] Start: 08-19-2022 Telephone encounter Víctor Rosales MD Work Phone: Urology Comment on above: Results Start: 08-13-2022 End: 08-13-2022 ambulatory DANIEL LEONARD Facility:[facility] Start: 08-09-2022 End: 08-10-2022 ambulatory Timmy SANTANA Facility:[facility] Start: 08-09-2022 End: 08-09-2022 Patient encounter procedure Timmy SANTANA [facility] [place] Start: 07-13-2022 End: 07-13-2022 ambulatory PA-C Divyabritney Conwayjef Work Phone: [facility] Work Phone: Start: 07-13-2022 End: 07-13-2022 Registered Recurring PA-C Divya Hemmer Work Phone: [facility]-Cancer Center Work Phone: Start: 07-12-2022 End: 07-13-2022 ambulatory Víctor Rosales MD Work Phone: Urology Start: 07-12-2022 End: 07-12-2022 Patient encounter procedure Víctor Rosales MD Work Phone: Urology Comment on above: Penile cancer (HCC) (Primary Dx); Hidden penis; Morbid obesity with BMI of 45.0-49.9, adult (HCC) Start: 06-21-2022 End: 06-22-2022 ambulatory Timmy SANTANA Facility: [place] Start: 05-31-2022 End: 06-01-2022 ambulatory Timmy SANTANA Facility:CD:[id number] Start: 05-31-2022 End: 05-31-2022 Admission to same day surgery center MIKEY Verdin Work Phone: [facility]-Surgery Center [place] Start: 05-20-2022 Office consultation new/estab patient 60 min Divya Verdin -[facility] 250 DO Work Phone: Start: 05-20-2022 ambulatory Ritesh Ordonez Ariadne y: Start: 05-17-2022 End: 05-17-2022 ambulatory MIKEY Verdin Work Phone: [facility] Work Phone: Start: 05-17-2022 End: 05-17-2022 Patient encounter procedure MIKEY Verdin Work Phone: [facility]-Pre-Surgical Testing Work Phone: Start: 05-10-2022 End: 05-11-2022 ambulatory Timmy SANTANA Facility: [place] Start: 05-10-2022 End: 05-10-2022 Patient encounter procedure Timmy SANTANA [facility] Start: 04-08-2022 ambulatory DIVYA VERDIN Facility:[facility] [place] Patient encounter status Divya Verdin -[facility] Work Phone: Procedures Date Procedure [...] CANCER SCREENING DISCUSSION PROSTATE CANCER SCREENING DISCUSSION [facility] Start: 09-03-2024 Influenza vaccination Influenza Vacc ine (#1) [facility] Comment on above: Postponed from 11/05 (Patient Refused) Start: 08-23-2024 Screening for malign ant neoplasm of colon Colorectal Cancer Screening [facility] Comment on above: Postponed from 01/16 (Patient Refused) Start: 04-04-2024 End: 04-04-2024 Patient encounter procedure 04/04/2024 5:00 PM EST Office Visit [facility] [address] [place] [address] Divya Verdin, PA [address] [place] [address] [facility] Start: 03-29-2024 Hemoglobin A1c [...] [address] [place] [address] Divya Verdin, PA [address] [place] [address] [facility] Start: 11-06-2023 Influenza vaccination Influenza Vacc ine (#1) [facility] Start: 08-07-2023 DIABETES SCREEN DIABETES SCREEN [facility] Start: 07-20-2023 End: 07-20-2023 Patient encounter procedure 07/20/2023 5:00 PM EDT Office Visit [facility] [address] [place] [address] Divya Verdin, PA [address] [place] [address] [facility] Start: 05-05-2023 Hemoglobin A1c measurement Diabetes: Hemoglobin A1C [facility] Start: 04-20-2023 End: 04-20-2023 Patient encounter procedure 04/20/2023 5:00 PM EST Office Visit [facility] [address] [place] [address] Divya Verdin, PA [address] [place] [address] Arrived [facility] Comment on above: Arrived Start: 11-05-2022 Influenza vaccination INFLUENZ A (Season Ended) [facility] Start: 09-18-2022 Screening for malign ant neoplasm of colon [facility] Start: 06-10-2022 Glaucoma screening Diabetes: R etinopathy Screening [facility] Start: 05-31-2022 [facility] Start: 05-31-2022 [facility] Start: 05-17-2022 Plain chest X-ray XR chest 2V* [facility] Start: 05-17-2022 XR Chest 2 Views [facility] Start: 03-07-2022 DEPRESSION ASSESSMENT DEPRESSION ASS ESSMENT [facility] Start: 04-21-2021 COVID-19 VACCINE (4 - Booster for Moderna series) COVID-19 VACCINE (4 - Booster for Moderna series) [facility] Start: 2015 SHINGRIX VACCINE (1 of 2) SHINGRIX VACCINE (1 of 2) [facility] Start: 2010 COLOGUARD (FIT-DNA) COLOGUARD (FIT-D NA) [facility] Start: 2010 Colonoscopy COLONOSCOPY [facility] Start: 2010 COLORECTAL CANCER SCREENING COLORECTAL CANCER SCREENING [facility] Start: [address] COLONOGRAPHY [facility] Start: 2010 FECAL OCCULT BLOOD FECAL OCCULT BLOO D [facility] Start: 2010 SIGMOIDOSCOPY SIGMOIDOSCOPY [facility] Start: 01-17-2000 LIPID SCREEN LIPID SCREEN [facility] Start: 01-17-1984 Urine microalbumin profile DTAP,TDAP,TD (1 - Tdap) [facility] Start: 1983 HEPATITIS C SCREENING HEPATITIS C SC [facility] Start: 1983 HIV SCREENING HIV SCREENING [facility] Start: 1965 HEPATITIS B (1 of 3 - 3-dose series) HEPATITIS B (1 of 3 - 3-dose series) [facility] Start: 1965 Screening for malign ant neoplasm of colon [facility] Healthcare Patient Education Hip Pain ED [facility] Work Phone: Patient referral [facility] Work Phone: [facility] Immunizations Immunization Date Immunization Notes Care Provider Fa cility 12-21-2022 influenza, injectabl e, quadrivalent, preservative free Divya BRODERICK Work Phone: [facility] 12-21-2022 influenza virus vaccine, unspecified formulation Divya BRODERICK Work Phone: [facility] 02-24-2021 SARS-CoV-2 (COVID-19 ) mRNA-1273 vaccine Timmy SANTANA [facility] 07-03-2020 SARS-CoV-2 (COVID-19 ) mRNA-1273 vaccine Timmy [employer] [facility] Comment on above: Result Comment: 2022: TPV50 06-05-2020 SARS-CoV-2 (COVID-19 ) mRNA-1273 vaccine Timmy SANTANA [facility] Comment on above: Result Comment: 2022: TPV50 12-06-2016 influenza virus vaccine, unspecified formulation Timmy SANTANA [facility] 12-06-2016 seasonal influenza, intradermal, preservative free Divya Verdin [facility] Healthcare Payers Date Payer Category Payer Self-pay 2022 Private Health Insurance [employer] [id number] 2022 Unknown 2022 Unknown [id number] 1965 Unknown [id number] [id number]. 356 1965 Unknown [id number] 2.16.840.1.666919.3.579.2. 727 1965 Unknown [id number] 2.16.840.1.172198.3.579.2. 727 1965 Unknown [id number] 2.16.840.1.803440.3.579.2. 727 1965 Unknown [id number] 2.16.840.1.167675.3.579.2. 727 1965 Unknown [id number] 2.16.840.1.003054.3.579.2. 727 1965 Unknown [id number] 2.16.840.1.630999.3.579.2. 1259 1965 Unknown [id number] 2.16.840.1.950768.3.579.2. 1259 1965 Unknown [id number] 2.16.840.1.304786.3.579.2. 1259 1965 Unknown [id number] 2.16.840.1.241851.3.579.2. 1259 1965 Unknown [id number] 2.16.840.1.653137.3.579.2. 1259 Unknown [id number] 2.16.840.1.534894.3.579.2. 531 Unknown [id number] 2.16.840.1.343051.3.579.2. 531 Social History Date Type Detail Facility Start: 05-10-2022 End: 03-16-2023 Tobacco smoking status Never smoked tobacco (finding) [facility] Tobacco smoking status Never [facility] Start: 03-16-2023 End: 08-24-2023 Sex Assigned At Male [facility] Start: 05-17-2022 End: 07-12-2022 Tobacco smoking status NHIS Ex-smoker (finding) [facility] Start: 1965 Sex Assigned At Male [facility] Start: 03-16-2023 End: 08-24-2023 Occasional alcohol use Occasional alcohol use [facility] 250 DO Work Phone: Comment on above: couple shots 1- 2 pe r week; tea all day, occasio kendra coffee; quit 29+ years ago; History of tobacco use Current smoker [facility] History of tobacco use Cigarette Smoker C [facility] Start: 07-12-2022 End: 03-16-2023 Tobacco use and exposure User of smokeless tobacco [facility] Start: 1965 Sex Assigned At Not on file C [facility] History of tobacco use Snuff User [facility] Start: 03-16-2023 End: 08-24-2023 Alcohol intake Current drinker of alcohol (finding) [facility] Start: 10-13-2022 Alcohol Comment Caffeine intak e: coffee, soda [facility] Medical Equipment Procedure Code Equipment Code Equipment Origin al Text Equipment Identifier Dates [id number], [id number] Start: 07-03-2013 Goals Date Patient Goal Desired Activity /State Functional Status Date Assessment Result Facility 05-10-2022 Functional Status N/A [facility] Clinical Notes 05-10-2022 to 12-28-2023 MEGGAN Lopze - 12/28/2023 5:00 PM EDTTelephone Encounter - [...] home. Currently on Glimepiride, Metformin, and Pioglitazone. [facility] has a co-worker who saw him [...] 100 tablet 3 Blood Glucose Monitoring Suppl (D-[employer] Glucometer) w/Device kit 1 each Daily Test glucose once a day. ergocalciferol (Vitamin D2) 1.25 MG (00252 UT) capsule TAKE 1 CAPSULE BY MOUTH [...] complication, without long-term current use of insulin ([facility]) - POCT Glycated hemoglobin, total Advised pt that his HgbA1c has increased to 7.3. He had a recent change in his diet and was eating unhealthier foods at lunch consistently. Discussed healthier options for snacks or quick meal solutions. Limit simple sugars and carbs. Will recheck in three months. His insurance does not cover GLP class medications. Primary hypertension ([facility]) Patient's blood pressure is currently stable. Continue with current medications and I will continue to monitor. Morbid obesity ([facility]) Pt has gained 21 pounds since his last appointment. Unable to continue the Adipex for the patient at this time as the benefits are no longer outweighing the potential risks of the medication. Encouraged him to work on improving his diet. Stay active, can re-evaluate in three months. Follow up in about 3 months (around 03/29/2024) for Diabetes. documented in this encounter [facility] 12-27-2023 Telephone encounter Note Form atting of this note might be different from the original. OARRS reviewed, Rx sent into patient's pharmacy. [facility] 12-27-2023 Miscellaneous Notes Formattin g of this note might be different from the original. OARRS reviewed, Rx sent into patient's pharmacy. phentermine (Adipex-P) 37.5 MG tablet Ddm in [place] documented in this encounter [facility] 12-27-2023 Telephone encounter Note Form atting of this note might be different from the original. phentermine (Adipex-P) 37.5 MG tablet Ddm in [place] [facility] 11-23-2023 Telephone encounter Note Form atting of this note might be different from the original. Yes, med was already sent [facility] 11-23-2023 Miscellaneous Notes Formattin g of this note might be different from the original. Yes, med was already sent This looks as though it was sent in on 11/20 documented in this encounter [facility] 11-23-2023 Telephone encounter Note Form atting of this note might be different from the original. This looks as though it was sent in on 11/20 [facility] 11-21-2023 Telephone encounter Note Form atting of this note might be different from the original. OARRS reviewed, Rx sent into patient's pharmacy. [facility] 11-21-2023 Miscellaneous Notes Formattin g of this note might be different from the original. OARRS reviewed, Rx sent into patient's pharmacy. phentermine (Adipex-P) [facility] [place] documented in this encounter [facility] 11-21-2023 Telephone encounter Note Form atting of this note might be different from the original. phentermine (Adipex-P) 37.5 MG tablet [facility] [place] [facility] 10-25-2023 Telephone encounter Note Form atting of this note might be different from the original. OARRS reviewed, Rx sent into patient's pharmacy. [facility] 10-25-2023 Miscellaneous Notes Formattin g of this note might be different from the original. OARRS reviewed, Rx sent into patient's pharmacy. documented in this encounter [facility] 02-02-2023 Evaluation note Encounter Date Diagnosis Assessment [...] call the office if his symptoms worsen. [facility] Other 11-29-2023 History of Present illness Narrative* [...] kit 0 ergocalciferol (Vitamin D2) 1.25 MG (31402 UT) capsule Take 1 capsule (1.25 mg) [...] Medication Follow Up, Hypertension. documented [facility] encounter[facility] [id number] Evaluation note* Encounter Date Diagnosis Assessment Notes [...] negative findings were considered in medical decision-making. [facility] Other [id number] Miscellaneous Notes* Telephone Encounter - Víctor Rosales [...] needed. Víctor Rosales MD [facility] NoteHNO ID: [id number] Author: Elena Teran APRN.[employer] Service: ? Author Type: Nurse Business Continuity Director Type: Anesthesia Procedure Notes Filed: 08/13/2022 3:45 PM Note Text: ANESTHESIOLOGY PROCEDURE NOTE Airway General Information Procedure Start Time/Medication Administration: 08/13/2022 3:07 PM Procedure End Time: 08/13/2022 3:08 PM Patient location during procedure: OR Timeout Performed Pre-procedure: timeout performed Consent Obtained: Yes Patient identity confirmed: patient sedated or unresponsive and arm band Staffing Anesthesiologist: Brennan Henley MD [employer]: Elena Teran APRN.[employer] Performed by: [employer] Indications and Patient Condition Indications for airway [...] with Mcmahon and stylette. SIGNATURE: Elena Teran APRN.[employer] PATIENT NAME: Juan Bean DATE: August 13, 2022 TIME: 3:38 PM CSN: [id number]06-[facility]-2023 NoteThis case was seen in consultation with Drs. Florentin Shirley, Hema Edwards and Rita Funez who agree with the above interpretation.[facility] Comment on above:Order Comment: Specimen Type: TISSUE SPECIMENOrdering Facility: [facility] Address: [address] [id number] Performed By: #### S ####[facility] LABCLIA [id number] [address] OF [id number] Note Patient Outreach (UROLMN) JUAN BEAN ([id number]) 1965 M Date Time Provider Department 07/12/22 VÍCTOR ROSALES During your visit today, we recorded the following information about you: Allergies As of Date: 07/12/2022 (No Known Allergies) Date Reviewed: 07/12/2022 Reviewed by: ADELA Crandall - Fully Assessed Visit Diagnosis:Screening for genitourinary condition [Z13.89] Order(s):URINALYSIS, REFLEX MICROSCOPIC [LNK1971] Order #: [id number]. #:[id number] Prescriptions as of 07/15/2022 - amLODIPine (NORVASC) [...] of 45.0-49.9, adult (HC*07/12/2022 Encounter Status:Closed by [employer], PRODUSER on 07/15/22[facility] 07-12-2022 NoteHNO ID: [id number] Author: Víctor Rosales MD Service: ? Author Type: Physician Type: Progress Notes Filed: 07/12/2022 9:40 AM Note Text: COUNTS INCLUDE 234 BEDS AT THE [facility] NEW PATIENT HISTORY AND PHYSICAL [...] for internal providers or letter via the [employer] Service for external providers. HISTORY CHIEF [...] care with the res (more content not included)...[facility]05-08-20[facility] History of Present illness Narrative* Víctor Rosales MD - 07/12/2022 9:18 AM EDT COUNTS INCLUDE 234 BEDS AT THE [facility] NEW PATIENT HISTORY AND PHYSICAL [...] for internal providers or letter via the [employer] for external p roviders. HISTORY CHIEF COMPLAINT: [...] Service Time: 9:37 AM documented in [facility]04-[facility]-2023 Progress note Author Silvio Yu [facility] June 22, 2022 9:03am Note Date/Time June 22, 2022 8:2 [facility] [place] [address] Hem/Onc Follow Up Note - OP Signed Patient: Juan Bean JR MR#: [id number] : 1965 Acct:[id number] Age/Sex: 57 / M Type: REG RCR [...] he is a T1b. will send to [facility] path review for second opinion. We would like to ascertain he has no residual disease. Dr. Santana will speak withhis colleague Dr. Víctor Rosales at [facility] and determine if additional excision or biopsy is necessary. Follow Up Instructions: Dr. Santana is setting up to see [facility] urology. send path report to [facility] for review. ct c/a/p with contrst cbc, cmp, cea with ct . f/u in 3 wks. 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 Hadcircumcision 05/31/22, [facility] pathology. HPI: 57-year-old male past medical history [...] for coordination of care (as documented) and [id number] counseling of patient and/or family. [facility] - Medical History Medical History: Medical [...] by Silvio Yu II, DO> 06/22/22 0903 [facility] Work Phone: 1(382) 555-194003-06-2023 NoteChief Complaint Referral HPI Staff Referral per [...] Contact Information Timmy SANTANA MD, URL [address] [address]- Additional Instructions: pt will f/u after procedure Patient Education Ramona Christiansen , personally scribed for Dr. Santana on 05/10/2022 11:00:16. . Documentation recorded by the scribe, Ramona Yost MA, accurately reflects the services(s) I performed and decisions made by me. Authenticated by (more content not included)...[facility] HospitalComment [facility]:Result Comment: Electronically Signed By: Timmy SANTANA MD\.br\Date and Time Signed: 05/10/22 11:03 EST\.br\Electronically Co-Signed By: Ramona Yost MA\.br\Date and Time Co-Signed: 05/10/22 11:00 [id number] Hospital Discharge instructions Patient Education 05/10/2022 10:53:42 [...] and shower gels that have fragrance. Take [id number] and prescription medicines only as told by [...] 07/10/2009 Document Revised: 02/03/2018 Document Reviewed: 01/10/2017 [email or web address] Patient Education 2020 [email or web address] 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 250 DO Work Phone: Evaluation + Plan note No data available for this section [facility] Evaluation noteNo assessment information available [facility] Work Phone: Evaluation note* Diagnosis Penile cancer (HCC)- Primary Malignant neoplasm of penis, part unspecified Hidden penis Morbid obesity with BMI of 45.0-49.9, adult (HCC) Morbid obesity [facility] Diagnosis Onset Date Resolution Status Squamous cell carcinoma, penis acute [facility] Work Phone: Evaluation note* Diagnosis Screening for genitourinary condition Screening for other and unspecified genitourinary condition Penile cancer (HCC) Malignant neoplasm of penis, part unspecified [facility]* Diagnosis Primary hypertension (CMS/HCC)- Primary Unspecified essential hypertension Morbid obesity (CMS/HCC) Morbid obesity [facility]* Diagnosis Morbid obesity (CMS/HCC) Morbid obesity documented in this encounter [facility]* Diagnosis Type 2 diabetes mellitus with other specified complication, without long-term current use of insulin (CMS/HCC)- Primary Primary hypertension (CMS/HCC) Unspecified essential hypertension Morbid obesity (CMS/HCC) Morbid obesity documented in this encounter [facility] HealthcareEvaluation note* Diagnosis Morbid obesity (CMS/HCC) Morbid obesity [facility]* Diagnosis Morbid obesity (CMS/HCC) Morbid obesity documented in this encounter [facility] note* Diagnosis Morbid obesity (CMS/HCC) Morbid obesity documented in this encounter [facility] HealthcareHistory general Narrative - Reported* Type Description Date Medical History DM2 Medical History hyperlipedemia Medical History HTN Medical History gum disease Medical History hypogonadism Medical History vit d dif Medical History Gout Surgical History T&A 1969 Hospitalization History SEE ABOVE SURGERY [facility] Other History general Narrative - Reported* Type Description Date Medical History DM2 Medical History hyperlipedemia Medical History HTN Medical History gum disease Medical History hypogonadism Medical History vit d dif Medical History Gout Surgical History T&A 1970 Hospitalization History SEE ABOVE SURGERY Hospitalization History cellulitis LLE 01/2023 [facility] Discharge instructions No data available for this section [facility] Discharge instructions Additional Instructions Take the prednisone twice a day for 5 days Take 1 hydrocodone every 6 hours for severe pain May use ice or warm moist heat Gentle stretching Continue your other medication The steroids can elevate your blood sugar so carefully watch her blood sugar in your diet Follow-up with family doctor and/or [facility] Return to the ER for worsening pain unable to walk fever or any other concerns [facility] Work Phone: Provwzdf note No data available for this section [facility] note Author Silvio Yu [facility] July 13, 2022 9:24am Note Date/Time July 13, 2022 9:18am [facility] [place] [id number] Hem/Onc Follow Up Note - OP Signed Patient: Juan Bean JR MR#: [id number] : 1965 Acct:[id number] Age/Sex: 57 / M Type: REG RCR [...] disease. comanaged by Dr. Av Rosales at [facility], plans additional biopsies under anesthesia for accurate staging. not yet scheduled. This would be considered a T1b lesion if pathologic grade 3 or 4 and he would beconsidered for inguinal lymph node dissection. Based on the Ki-67 of 85%, it is possible he is a T1b. Follow Up Instructions: f/u in about 2 months. make sure we thave notes from dr rosales at [facility] and potential surgical report and pathology at [...] 85%. 07/13/[address] av rosales at [facility]. recommended additional biopsy under anesthesia. ct c/a/p [...] for coordination of care (as documented) and [id number] counseling of patient and/or family. [facility] - Medical History Medical History: Medical [...] signed by Silvio Yu II, DO> 07/13/22923 [facility] Work Phone: Chief Complaint and [...] Morbid obesity (CMS/HCC) Divya Verdin PA [address] [place] [address] Referral ID Status Reason Start Date Expiration Date V isits Requested Visits Authorized [id number] Pending Review 1 1 Additional Source Comments Patient Care team informatio n (unrecognized section and content) Team Status: Active Member Role Status Dates Divya Verdin PA-C Primary Care Provider Active Team Status: Inactive Member Role Status Dates Timmy Santana MD Attending Provider Active Divya Verdin PA-C Primary Care Provider Active Clock And Watch Assembler Relationship Specialty Start Date End Date Daniel Leonard MD PCP - General Family Medicine 01/10/13 Team Status: Active Member Role Status Dates Divya Verdin PA-C Primary Care Provider Active Silvio Yu II, DO Attending Provider Active Timmy Santana MD Referring Provider Active Clock And Watch Assembler Relationship Specialty Start Date End Date Daniel Leonard MD PCP - General Family Medicine 01/10/13 Clock And Watch Assembler Relationship Specialty Start Date End Date Divya Verdin [address] [place] [address] PCP - General Family Medicine 07/27/22 Team Status: Inactive Member Role Status Dates MEGGAN Lawler-C Primary Care Provider Active Roya Childs , LIBRARY CIRCULATION TECHNICIAN-BC Emergency Provider Active Clock And Watch Assembler Relationship Specialty Start Date End Date Divya Verdin PA [address] [place] [address] PCP - Medical [facility] 08/05/22 Manish Rodriguez MD [address] [place] [address] PCP - General Internal Medicine 07/13/22 Clock And Watch Assembler Relationship Specialty Start Date End Date Divya Verdin PA [address] [place] [address] PCP - Medical [facility] [employer] 08/05/22 Manish Rodriguez MD [address] [place] [address] PCP - General Internal Medicine 07/13/22 Clock And Watch Assembler Relationship Specialty Start Date End Date Manish Rodriguez MD [address] [place] [address] PCP - General Internal Medicine 07/13/22 Manish Rodriguez MD [address] [place] [address] PCP - Medical [facility] [employer] 03/07/17 03/06/99 Clock And Watch Assembler Relationship Specialty Start Date End Date Manish Rodriguez MD [address] [place] [address] PCP - General Internal Medicine 07/13/22 Manish Rodriguez MD [address] [place] [address] PCP - Medical [facility] [employer] 03/07/17 03/06/99 Clock And Watch Assembler Relationship Specialty Start Date End Date Manish Rodriguez MD [address] [place] [address] PCP - General Internal Medicine 07/13/22 Manish Rodriguez MD [address] [place] [address] PCP - Medical [facility] [employer] 03/07/17 03/06/99 Clock And Watch Assembler Relationship Specialty Start Date End Date Manish Rodriguez MD [address] [place] [address] PCP - General Internal Medicine 07/13/22 Manish Rodriguez MD [address] [place] [address] PCP - Medical [facility] [employer] 03/07/17 03/06/99 Clock And Watch Assembler Relationship Specialty Start Date End Date Manish Rodriguez MD [address] [place] [address] PCP - General Internal Medicine 07/13/22 Manish Rodriguez MD [address] [place] [address] PCP - Medical [facility] [employer] 03/07/17 03/06/99 Clock And Watch Assembler Relationship Specialty Start Date End Date Manish Rodriguez MD [address] [place] [address] PCP - General Internal Medicine 07/13/22 Manish Rodriguez MD [address] [facility] [address] [place] [address] PCP - Medical [employer] [facility] [employer] 03/07/17 03/06/99 Goals (unrecognized section and content) Goals may be documented in a n alternate section (unrecognized sect ion and content) No Status Records FoundNo Status Records FoundNo Status Records FoundNo Status Records FoundNo Status Records FoundNo Status Records Found INFORMATION SOURCE (unrecogn ized section and content) DATE CREATED AUTHOR 05/21/2022 [facility] DATE CREATED AUTHOR AUTHOR'S ORGANIZ ATION 05/21/2022 [facility] DATE CREATED AUTHOR AUTHOR'S ORGANIZ ATION 08/19/2022 [facility] DATE CREATED AUTHOR AUTHOR'S ORGANIZ ATION 11/10/2022 [facility] DATE CREATED AUTHOR AUTHOR'S ORGANIZ ATION 08/19/2023 [facility] DATE CREATED AUTHOR AUTHOR'S ORGANIZ ATION 12/30/2023 [facility] EPIC Source Comments (unrecognize d section and content) In the event this informatio n is protected by the Federal Confidentiality of Alcohol and Drug Abuse Patient Records regulations: The Federal rules restrict any use of the information to criminally investigate or prosecute any alcohol or drug abuse patient.[facility] the event this information is protected by the Federal Confidentiality of Alcohol and Drug Abuse Patient Records regulations: The Federal rules restrict any use of the information to criminally investigate or prosecute any alcohol or drug abuse patient.[facility] the event this information is protected by the Federal Confidentiality of Alcohol and Drug Abuse Patient Records regulations: The Federal rules restrict any use of the information to criminally investigate or prosecute any alcohol or drug abuse patient.[facility] Reason for Visit (unrecogniz ed section and content) Reason Comments New Patient Reason Comments Results Reason Onset Date Comments Med Refill 12/27/2023 Reason Comments Med Refill Reason Onset Date Comments Med Refill 10/24/2023 [facility] [place] FOR RECORDS PERTAINING TO PATIENTS WHO [...] ON THE PRIMARY CLINICAL RECORDS. [facility]. provides no warranty or guarantee of the accuracy or completeness of information in this document.
[2024-03-08 08:31] LABS: Glucometer 304 mg/dL (74-106)
[2024-03-08] MEDS: METOPROLOL SUCCINATE 50 MG TAB.ER.24H PO (08:50)
[2024-03-08] MEDS: INSULIN ASPART 300 UNIT/3 ML PEN SUBQ ×3 (08:50→21:36)
[2024-03-08] MEDS: AMLODIPINE BESYLATE 5 MG TABLET PO (08:50)
[2024-03-08] MEDS: PIOGLITAZONE 15 MG TABLET 45 MG PO (08:50)
[2024-03-08] MEDS: ACETAMINOPHEN 500 MG TABLET 1000 MG PO (08:50)
[2024-03-08] MEDS: GLIMEPIRIDE 2 MG TABLET 4 MG PO ×2 (08:51→21:33)
[2024-03-08] MEDS: ENOXAPARIN SODIUM 100 MG/ML SYRINGE 150 MG SUBQ ×2 (08:51→21:34)
--- NOTE | 2024-03-08 09:00 | P.HP_ITS ---
HPI H&P: HPI History of Present Illness Chief complaint: CELLULITIS LEG c SEPSIS Narrative: Patient presented to emergency room with increasing swelling left leg and increasing erythema, has had a history of cellulitis there before and feels like this is coming back, exam would be consistent with that, he also had fever sinus tachycardia respiratory distress and acute hypoxia resulting in severe sepsis. With lactic acidosis. When I saw patient up on the medical surgical floor, resting comfortably at the side of the bed, significant erythema in his lower extremity, so far at the line of demarcation but just placed, some significant labored with his breathing though. 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 - Other postprocedural complications and disorders of genitourinary system (ICD-10) ?N47.5 - Adhesions of prepuce and glans penis (ICD-10) Elevated d-dimer ?R79.89 - Other specified abnormal findings of blood chemistry (ICD-10) Hip pain, right ?M25.551 - Pain in right hip (ICD-10) Lower extremity edema ?R60.0 - Localized edema (ICD-10) Cellulitis of left leg ?L03.116 - Cellulitis of left lower limb (ICD-10) Diabetes ?E11.9 - Type 2 diabetes mellitus without complications (ICD-10) Hypertension ?I10 - Essential (primary) hypertension (ICD-10) High cholesterol ?E78.00 - Pure hypercholesterolemia, unspecified (ICD-10) Surgical History (Updated 01/26/23 @ 03:45 by Yuli Lo) Hx of tonsillectomy ?Z90.89 - Acquired absence of other organs (ICD-10) Family History (Updated 01/26/23 @ 03:47 by Yuli Lo) Sister Family history of cancer Mother Family history of diabetes mellitus Family history of hypertension Family history of myocardial infarction Father Family history of diabetes mellitus Grandfather Family history of stroke Social History Within the past year, how often did you have a drink containing alcohol: 2-3 times a week Within the past year, how many standard drinks containing alcohol did you have on a typical day: 3 or 4 Within the past year, how often did you have six or more drinks on one occasion: less than monthly Total score: 3 Score interpretation: A score of 4 or more indicates drinking is likely to affect patient's safety. 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 Highest level of school completed/degree received: high school graduate Do you want help with school or training: No Are you now , , , , never or living with a partner: In a typical week, how many times do you talk on the telephone with family, friends, or neighbors: 3 or more times per week How often do you get together with friends or relatives: twice per week How often do you attend congregation or pentecostalism services: 1-3 times per year Do you belong to any clubs or organizations such as congregation groups unions, fraternal or athletic groups, or school groups: no Total score: 1 Score interpretation: A score of less than or equal to 1 indicates the most socially isolated. Little interest or pleasure in doing things: not at all Feeling down, depressed, or hopeless: not at all Feel stressed/tense/nervous/anxious/difficulty sleeping: not at all Due to disability, difficulty making decisions: No Do you think of yourself as: straight/heterosexual Gender Identity: male Meds Home Medications and Allergies Home Medications ?Medication ?Instructions ?Recorded ?Confirmed ?Type amlodipine 5 mg tablet 5 mg PO QDAY 11/15/22 03/07/24 History ergocalciferol (vitamin D2) 1,250 1,250 mcg PO .COMPLEX 11/15/22 03/07/24 History mcg (50,000 unit) capsule glimepiride 4 mg tablet 4 mg PO BID 11/15/22 03/08/24 History lisinopril 20 mg tablet 20 mg PO QDAY 11/15/22 03/07/24 History meloxicam 15 mg tablet 15 mg PO .qhs 11/15/22 03/07/24 History metformin 1,000 mg tablet 1,000 mg PO BID 11/15/22 03/07/24 History metoprolol succinate 50 mg 50 mg PO QDAY 11/15/22 03/07/24 History tablet,extended release 24 hr pioglitazone 45 mg tablet 45 mg PO QDAY 11/15/22 03/07/24 History lisinopril 20 1 tab PO .AM 01/26/23 03/07/24 History mg-hydrochlorothiazide 25 mg tablet simvastatin 40 mg tablet 40 mg PO BEDTIME 01/26/23 03/07/24 History tizanidine 4 mg tablet 4 mg PO .QHS PRN muscle spasticity 03/08/24 03/08/24 History Allergies Allergy/AdvReac Type Severity Reaction Status Date / Time No Known Drug Allergies Allergy Verified 03/07/24 15:38 Exam Constitutional Vital Signs, click to edit/add: Last Vital Signs Temp 99.8 F 03/08/24 04:05 Pulse 103 H 03/08/24 07:59 Resp 20 03/08/24 04:05 BP 134/78 03/08/24 04:05 Pulse Ox 92 L 03/08/24 05:40 O2 Del Method Nasal Cannula 03/08/24 05:40 O2 Flow Rate 2 03/08/24 05:40 Documenting provider has reviewed patient's vital signs: yes Common normals: apparent distress (Mild resp distress) Respiratory Common normals: abnormal respiratory effort (Mild respiratory distress) Auscultation: rhonchi Cardio Common normals: regular rate and regular rhythm Extremity Common normals: abnormal to inspection (Cellulitis left lower extremity with significant edema) Results Labs Labs: Short CBC 03/07/24 03/08/24 Range/Units 16:15 05:08 WBC 11.7 H 13.1 H (4.0-11.0) 10^3/uL Hgb 13.2 L 11.7 L (14.0-18.0) g/dL Hct 39.8 L 35.4 L (42.0-54.0) % Plt Count 170 161 (150-450) 10^3/uL BMP 03/07/24 03/08/24 16:42 05:08 Sodium 139 133 L Potassium 4.0 3.5 Chloride 97 L 96 L Carbon Dioxide 34.3 H 31.1 BUN 15.0 15.0 Creatinine 1.06 1.05 Glucose 240 H 244 H Calcium 9.6 8.4 L Liver Function 03/07/24 03/08/24 Range/Units 16:42 05:08 Total Bilirubin 1.0 1.3 H (0.2-1.0) mg/dL AST 28 25 (15-37) U/L ALT 40 31 (16-63) U/L Alkaline Phosphatase 92 62 (46-116) U/L Albumin 3.5 2.9 L (3.4-5.0) g/dL Urine 03/08/24 Range/Units 04:20 Urine Color Dk. yellow (YELLOW) Urine Clarity Clear (CLEAR) Urine pH 5.5 (5.0-9.0) Ur Specific [place] 1.025 (1.005-1.025) Urine Protein 30 A (NEG/TRACE) mg/dL Urine Glucose (UA) Negative (NEGATIVE) mg/dL ABG ABG results: 03/07/24 16:15 VBG pH 7.419 VBG pCO2 52.2 H Assessment and Plan Assessment and Plan (1) Fever: (2) Sepsis: (3) Cellulitis of left leg: (4) Hyponatremia: (5) Cellulitis of left leg: (6) Diabetes: (7) Hypertension: Plan Admission findings: Fever, sinus tachycardia, respiratory distress, uncontrolled hypertension, acute hypoxia with O2 sat of 87%, leukocytosis, lactic acidosis, positive culture for Peptostreptococcus on PCR testing, all consistent with cellulitis with severe sepsis Cellulitis resulting in severe sepsis-infection so far showing positive for Peptostreptococcus-on Zosyn and vancomycin which should cover that, will maintain current antibiotics and repeat labs in a.m., white blood cell count is higher today Bilateral lower lobe pneumonia with hypoxia-try to obtain sputum culture, antibiotics as outlined above should improve With the Peptostreptococcus-concern for valvular vegetations-check echocardiogram Hypertension-continue with home medications Diabetes mellitus-insulin sliding scale and home medications Hypercholesterolemia continue with home medications Low back pain continue with home medications Severe morbid obesity-diet management Iron deficiency anemia-monitor daily Abnormal UA with few white blood cells-culture pending Admission status: Patient with cellulitis lower extremity but is resulting in severe sepsis with lactic acidosis and leukocytosis and positive blood culture on PCR testing for Peptostreptococcus. Medically necessary treatment will span 2 midnights, inpatient status.
--- NOTE | 2024-03-08 09:02 | CA_ITS ---
Patient Name: JUAN VILLAVICENCIO MR#: [id number] : 1965 Exam Date: 03/08/2024 Ordering Doctor: DR VILMA MULLER . ECHOCARDIOGRAM REPORT PROCEDURE: CA ECHO DOPPLER COMPLETE INDICATIONS: R/O Valvular vegetations, sepsis COMPARISON: None. DESCRIPTION: COMPLETE ECHOCARDIOGRAM Real-time transthoracic echocardiography with 2D, M-mode, spectral and color flow Doppler performed. QUALITY: Technical quality was adequate. LEFT VENTRICLE: Normal chamber size. Mild concentric left ventricular hypertrophy. LV EF: Global left ventricular systolic function is hyperdynamic; visually estimated ejection fraction 65 to 70%. No obvious wall motion abnormalities. DIASTOLIC: Normal diastolic function. ATRIAL SEPTUM: Inadequately seen. LEFT ATRIUM: Normal chamber size. RIGHT ATRIUM: Mild dilatation. RIGHT VENTRICLE: Normal chamber size. Normal right ventricular systolic function. TRICUSPID VALVE: Normal mobility and thickness. No vegetations are present. No stenosis with mild regurgitation. Mild pulmonary hypertension. RVSP 38mmHg. MITRAL VALVE: Normal mobility and thickness. No vegetations are present. No evidence of mitral valve stenosis. There is no mitral annular calcification. No mitral regurgitation. AORTIC VALVE: Normal trileaflet appearance. No visible sclerosis. Normal leaflet mobility. No vegetations are present. No evidence of aortic valve stenosis. No aortic regurgitation. AORTIC ROOT: Normal diameter and appearance. PULMONIC VALVE: Grossly normal. No stenosis. No regurgitation. PERICARDIUM: Anterior free space; trivial effusion versus fat pad IVC: Not well visualized. CONCLUSION: 1. Normal left ventricular systolic function is hyperdynamic; visually estimated ejection fraction 65 to 70% 2. Normal right ventricular size and systolic function 3. Normal diastolic function 4. The right atrium is mildly dilated 5. Mild tricuspid regurgitation 6. Valves are poorly seen; no obvious valvular masses/vegetations are seen -consider transesophageal echocardiography if clinically appropriate 7. Anterior free space; trivial effusion versus fat pad Adult Echocardiography Procedure Report Left Ventricle LVEDD (3.7 - 5.6 cm): 4.37 cm LVESD (2.2 - 4.0 cm): 2.99 cm LVIVS thickness (0.6 - 1.2 cm): 1.42 cm LVPW thickness (0.5 - 1.0 cm): 1.21 cm e': 0.11 m/s E - e': 9.27 LVOT Max Gradient: 2.09 mm[Hg] LVOT Area (cm2): 0.72 m/s Peak Velocity (LVOT): 0.72 m/s Mean Velocity (LVOT): 0.47 m/s LVOT Diameter 2.21 cm Left Atrium Left Atrium Systolic Dimension: 4.25 cm Mitral Valve MV E to A Ratio: 1.21 Mitral Valve A-Wave Peak Velocity: 0.87 m/s Mitral Valve E-Wave Peak Velocity: 1.06 m/s Right Ventricle RV Internal Diastolic Dimension: 3.07 cm Aorta AO Root Diam: 3.47 cm Ascending Ao Diam: 2.98 cm Aortic Valve AoV Area (Peak Elliot): 2.12 cm2, 2.12 cm2 AoV Area (VTI): 2.57 cm2, 2.57 cm2 Peak Velocity(Antegrade Flow): 1.32 m/s Peak Gradient(Antegrade Flow): 6.92 mm[Hg] Mean Velocity(Antegrade Flow): 0.97 m/s Mean Gradient(Antegrade Flow): 4.07 mm[Hg] Velocity Time Integral: 24.60 cm Tricuspid Valve Peak Velocity (Regurgitant Flow): 2.98 m/s, 2.78 m/s, 2.50 m/s, 2.76 m/s Pulmonic Valve Mean Gradient: 2.17 mm[Hg] Mean Velocity: 0.67 m/s Peak Velocity: 1.13 m/s, 1.22 m/s Peak Gradient: 5.08 mm[Hg], 5.92 mm[Hg] Right Atrium Right Atrium Systolic Pressure: 38.19 ml, 38.19 ml Dictated by: Jon Turner M.D. on 03/12/2024 at 16:10 Approved by: Jon Turner M.D. on 03/12/2024 at 16:14
--- NOTE | 2024-03-08 09:04 | US_ITS ---
[place] [id number] Patient Name: JUAN VILLAVICENCIO MRN: [id number] date: 1965 Sex: M Assigned Patient Location: [place] Current Patient Location: [place] Accession/Order Number: [id number] Exam Date: 03/08/2024 09:05 Report Date: 03/08/2024 10:13 At the request of: VILMA MULLER Procedure: US venous doppler LE BI EXAM: US venous doppler LE BI HISTORY: dvt COMPARISON: None. TECHNIQUE: Grayscale, color and Doppler FINDINGS: Region: Bilateral legs Thrombus: None Flow: Normal Augmentation: Normal Compressibility: Normal Other: Bilateral lower leg subcutaneous edema US/US venous doppler LE BI IMPRESSION: No deep or superficial vein thrombus identified in the legs Electronically authenticated by: SAFIA WEINSTEIN Date: 03/08/2024 10:13
--- NOTE | 2024-03-08 09:48 | CM.NOTE ---
Rounds made with Dr. Phelan, pt will have echo and ultrasound of lower extremity today. No discharge. Discussed with pt plan of care.
[2024-03-08] MEDS: VANCOMYCIN HCL 1,500 MG in 0.9 % SODIUM CHLORIDE 500 ML 250 MG IV (10:24)
[2024-03-08] MEDS: 0.9 % SODIUM CHLORIDE 250 ML 100 ML IV (10:24)
[2024-03-08] MEDS: IPRATROPIUM/ALBUTEROL SULFATE 3 ML AMPUL.NEB IH ×2 (10:46→17:21)
[2024-03-08 11:56] LABS: Glucometer 221 mg/dL (74-106)
[2024-03-08] MEDS: HYDROCHLOROTHIAZIDE 25 MG TABLET PO (11:56)
[2024-03-08] MEDS: LISINOPRIL 20 MG TABLET PO ×2 (11:56→21:35)
[2024-03-08 16:15] LABS: Glucometer 200 mg/dL (74-106)
--- NOTE | 2024-03-08 17:27 | XR_ITS ---
The [address] [address] Patient Name: JUAN VILLAVICENCIO MRN: [id number] date: 1965 Sex: M Assigned Patient Location: Current Patient Location: Accession/Order Number: [id number] Exam Date: 03/08/2024 17:45 Report Date: 03/08/2024 21:09 At the request of: VILMA MULLER Procedure: XR chest 1V EXAM: XR chest 1V HISTORY: sepsis COMPARISON: Chest 03/07/2024. TECHNIQUE: One view was performed. FINDINGS: This study is limited due to low lung volumes and body habitus. The cardiac silhouette is normal in size. There is developing moderate subsegmental atelectasis at the right lung base and there is also mild left basilar atelectasis. There is no definite pleural effusion or pneumothorax. Bones and soft tissues appear unremarkable. XR/XR chest 1V IMPRESSION: 1. Limited study. 2. Low lung volumes with bibasilar atelectasis, right greater than left. Electronically authenticated by: LYLY CHANDRA Date: 03/08/2024 21:09
[2024-03-08] MEDS: 0.9 % SODIUM CHLORIDE 1,000 ML 1000 ML IV ×2 (17:38→21:44)
[2024-03-08 18:59] LABS: Basophils Percent Auto 0.2 % (0.2-2.0); Hematocrit 34.2 % (42.0-54.0); Hemoglobin 11.4 g/dL (14.0-18.0); Immature Granulocytes Abs Auto 0.31 10^3/uL (0.00-0.03); Immature Granulocytes Pct Auto 2.4 % (0.0-0.5); Lymphocytes Absolute Auto 0.5 10^3/uL (1.2-3.8); Lymphocytes Percent Auto 3.9 % (20.5-60.0); Mean Corpuscular HGB Conc 33.3 g/dL (29.9-35.2); Mean Corpuscular Hemoglobin 31.2 pg (25.9-34.0); Mean Corpuscular Volume 93.7 fL (80.0-94.0); Mean Platelet Volume 9.8 fL (9.5-13.5); Monocytes Absolute Auto 0.5 10^3/uL (0.3-0.8); Monocytes Percent Auto 3.9 % (1.7-12.0); Neutrophils Absolute Auto 11.6 10^3/uL (1.4-6.5); Neutrophils Percent Auto 89.6 % (43.0-75.0); Platelet Count 167 10^3/uL (150-450); Red Blood Count 3.65 10^6/uL (4.70-6.10); Red Cell Distribution Width 13.7 % (11.0-15.0)
[2024-03-08 19:00] LABS: pH VBG 7.451 (7.330-7.430)
[2024-03-08 19:01] LABS: PCO2 VBG 42.3 mmHg (40.0-52.0)
[2024-03-08 19:10] LABS: Anion Gap 10.4; BUN Creatinine Ratio 16.3; Calcium 8.4 mg/dL (8.5-10.1); Chloride 96 mmol/L (98-107); Estimated GFR (African America >60 (>=60 mL/min/1.73m^2); Estimated GFR (Non-African Ame >60 (>=60 mL/min/1.73m^2); Glucose 214 mg/dL (74-106); Potassium 3.4 mmol/L (3.5-5.1); Sodium 134 mmol/L (136-145)
[2024-03-08 19:28] LABS: Troponin I High Sensitivity 19.3 pg/mL (4.0-76.1)
--- NOTE | 2024-03-08 19:57 | P.DS_ITS ---
DS: Providers Provider Date of admission: 03/08/24 06:14 Primary care physician: MARIA L MITTAL DS: Diagnosis Discharge Diagnosis (1) Fever: (2) Sepsis: (3) Cellulitis of left leg: (4) Hyponatremia: (5) Diabetes: (6) Hypertension: Plan Admission findings: Fever, sinus tachycardia, respiratory distress, uncontrolled hypertension, acute hypoxia with O2 sat of 87%, leukocytosis, lactic acidosis, positive culture for Peptostreptococcus on PCR testing, all consistent with cellulitis with severe sepsis Cellulitis resulting in severe sepsis-infection so far showing positive for Peptostreptococcus-on Zosyn and vancomycin which should cover that, will maintain current antibiotics and repeat labs in a.., white blood cell count is higher today Bilateral lower lobe pneumonia with hypoxia-try to obtain sputum culture, antibiotics as outlined above should improve With the Peptostreptococcus-concern for valvular vegetations-check echocardiogram Hypertension-continue with home medications Diabetes mellitus-insulin sliding scale and home medications Hypercholesterolemia continue with home medications Low back pain continue with home medications Severe morbid obesity-diet management Iron deficiency anemia-monitor daily Abnormal UA with few white blood cells-culture pending Admission status: Patient with cellulitis lower extremity but is resulting in severe sepsis with lactic acidosis and leukocytosis and positive blood culture on PCR testing for Peptostreptococcus. Medically necessary treatment will span 2 midnights, inpatient status. DS: Summary Hospital Course Hospital Course: Patient admitted with cellulitis of his lower extremity, initial culture came back showing likelihood for Peptostreptococcus, white blood cell count was slightly elevated but he just tarted the treatments, he does have lactic acidosis consistent with sepsis, verbal report that the culture also came back positive for E. coli. Patient had a episode where he was just feeling kind of weak all over, repeated labs white blood cell count still stable his lactic acidosis has resolved, his heart failure test is still pending but was normal on admission, echocardiogram for valvular vegetations is pending, likely needs DEMETRIUS at some point, after discussion with patient he discussed with his send he would prefer to be transferred to [facility] for infectious disease management. Currently have a call out to the hospitalist with viral illness, likely arrange transfer for this evening Currently on vancomycin and Zosyn, will add levofloxacin for double coverage for gram-negative's, he received 3 L of fluids in the ER received 1 additional liter this evening and will repeat later on this evening, patient improved after last bolus Time Spent with Patient Time attestation: Total time spent providing and/or coordinating discharge services: Exam Constitutional Vital Signs, click to edit/add: Last Vital Signs Temp 98.2 F 03/08/24 16:16 Pulse 113 H 03/08/24 18:00 Resp 24 H 03/08/24 16:16 BP 168/71 H 03/08/24 16:16 Pulse Ox 91 L 03/08/24 17:22 O2 Del Method Nasal Cannula 03/08/24 17:22 O2 Flow Rate 2 03/08/24 16:16 Documenting provider has reviewed patient's vital signs: yes Common normals: apparent distress (Mild resp distress) Respiratory Common normals: abnormal respiratory effort (Mild respiratory distress) Auscultation: rhonchi Cardio Common normals: regular rate and regular rhythm Extremity Common normals: abnormal to inspection (Cellulitis left lower extremity with significant edema) DS: Data Data Completed and Pending Labs on day of discharge: Labs from last 24 hours 03/08/24 03/08/24 03/08/24 18:40 16:03 11:53 WBC 13.0 H RBC 3.65 L Hgb 11.4 L Hct 34.2 L MCV 93.7 MCH 31.2 MCHC 33.3 RDW 13.7 Plt Count 167 MPV 9.8 Neut % (Auto) 89.6 H Lymph % (Auto) 3.9 L Haakon % (Auto) 3.9 Eos % (Auto) 0.0 L Baso % (Auto) 0.2 Neut # (Auto) 11.6 H Lymph # (Auto) 0.5 L Haakon # (Auto) 0.5 Eos # (Auto) 0.0 Baso # (Auto) 0.0 Abs Immat Gran (auto) 0.31 H Imm/Tot Granulo (auto) 2.4 H VBG pH 7.451 H VBG pCO2 42.3 Sodium 134 L Potassium 3.4 L Chloride 96 L Carbon Dioxide 31.0 Anion Gap 10.4 BUN 17.0 Creatinine 1.04 Est GFR ( Amer) >60 Est GFR (Non-Af Amer) >60 BUN/Creatinine Ratio 16.3 Glucose 214 H Lactate 1.0 Calcium 8.4 L Magnesium Total Bilirubin AST ALT Alkaline Phosphatase Troponin I High Sens 19.3 C-Reactive Protein NT-Pro-B Natriuret Pep 201.0 Total Protein Albumin Globulin Albumin/Globulin Ratio Urine Color Urine Clarity Urine pH Ur Specific [place] Urine Protein Urine Glucose (UA) Urine Ketones Urine Occult Blood Urine Nitrite Urine Bilirubin Urine Urobilinogen Ur Leukocyte Esterase Urine RBC Urine WBC Ur Squamous Epith Cells Urine Crystals Urine Bacteria Urine Casts Urine Mucus Ur Culture Indicated? Specimen Source A.calcoaceticus-baumannii cmplx PCR Bacteroides fragilis Margaret albicans (PCR) Margaret auris (PCR) C. glabrata (PCR) C. krusei (PCR) C. parapsilosis (PCR) C. tropicalis (PCR) C. neoform/gattii (PCR) Enterobacterales (PCR) E. cloacae complex PCR Enterococc faecalis PCR Enterococc faecium PCR E. coli (PCR) H. influenzae (PCR) Klebsiella aerogenes (PCR) Klebsiella oxytoca PCR K. pneumoniae group (PCR) List. monocytogenes PCR N. meningitidis (PCR) Proteus spp. (copies/mL) Salmonella spp. (PCR) Serratia marcescens PCR Staphylococcus sp PCR Staph aureus (PCR) mecA/C & MREJ Resist Gene mecA/C-Methicil Resis Gene mcr-1 Colistin Res Gene PCR Staph epidermidis (PCR) Staph lugdunensis (TEM-PCR) S. maltophilia (PCR) Streptococcus sp PCR Strep agalactiae (PCR) Strep pneumoniae (PCR) S. pyogenes (PCR) P. aeruginosa (PCR) Blanca/B-Vanco Res Genes blaIMP Car res Gene PCR KPC (blaKPC) Detect PCR NDM (blaNDM) Detect PCR OXA-48 Carbapenem Resis Gene (PCR) blaVIM Car Res Gene PCR CTX-M ESBL (PCR) POC Glucose 200 H 221 H 03/08/24 03/08/24 03/08/24 08:22 05:08 04:20 WBC 13.1 H RBC 3.79 L Hgb 11.7 L Hct 35.4 L MCV 93.4 MCH 30.9 MCHC 33.1 RDW 13.7 Plt Count 161 MPV 10.1 Neut % (Auto) 92.9 H Lymph % (Auto) 2.7 L Haakon % (Auto) 3.0 Eos % (Auto) 0.0 L Baso % (Auto) 0.2 Neut # (Auto) 12.2 H Lymph # (Auto) 0.4 L Haakon # (Auto) 0.4 Eos # (Auto) 0.0 Baso # (Auto) 0.0 Abs Immat Gran (auto) 0.16 H Imm/Tot Granulo (auto) 1.2 H VBG pH VBG pCO2 Sodium 133 L Potassium 3.5 Chloride 96 L Carbon Dioxide 31.1 Anion Gap 9.4 BUN 15.0 Creatinine 1.05 Est GFR ( Amer) >60 Est GFR (Non-Af Amer) >60 BUN/Creatinine Ratio 14.3 Glucose 244 H Lactate Calcium 8.4 L Magnesium 1.3 L Total Bilirubin 1.3 H AST 25 ALT 31 Alkaline Phosphatase 62 Troponin I High Sens C-Reactive Protein 12.72 H NT-Pro-B Natriuret Pep 221.0 Total Protein 6.5 Albumin 2.9 L Globulin 3.6 Albumin/Globulin Ratio 0.8 Urine Color Dk. yellow Urine Clarity Clear Urine pH 5.5 Ur Specific [place] 1.025 Urine Protein 30 A Urine Glucose (UA) Negative Urine Ketones 15 A Urine Occult Blood Negative Urine Nitrite Negative Urine Bilirubin Small A Urine Urobilinogen 1.0 Ur Leukocyte Esterase Negative Urine RBC 0-2 Urine WBC 2-5 A Ur Squamous Epith Cells Few A Urine Crystals None seen Urine Bacteria Small A Urine Casts None seen Urine Mucus None seen Ur Culture Indicated? Yes Specimen Source A.calcoaceticus-baumannii cmplx PCR Bacteroides fragilis Margaret albicans (PCR) Margaret auris (PCR) C. glabrata (PCR) C. krusei (PCR) C. parapsilosis (PCR) C. tropicalis (PCR) C. neoform/gattii (PCR) Enterobacterales (PCR) E. cloacae complex PCR Enterococc faecalis PCR Enterococc faecium PCR E. coli (PCR) H. influenzae (PCR) Klebsiella aerogenes (PCR) Klebsiella oxytoca PCR K. pneumoniae group (PCR) List. monocytogenes PCR N. meningitidis (PCR) Proteus spp. (copies/mL) Salmonella spp. (PCR) Serratia marcescens PCR Staphylococcus sp PCR Staph aureus (PCR) mecA/C & MREJ Resist Gene mecA/C-Methicil Resis Gene mcr-1 Colistin Res Gene PCR Staph epidermidis (PCR) Staph lugdunensis (TEM-PCR) S. maltophilia (PCR) Streptococcus sp PCR Strep agalactiae (PCR) Strep pneumoniae (PCR) S. pyogenes (PCR) P. aeruginosa (PCR) Blanca/B-Vanco Res Genes blaIMP Car res Gene PCR KPC (blaKPC) Detect PCR NDM (blaNDM) Detect PCR OXA-48 Carbapenem Resis Gene (PCR) blaVIM Car Res Gene PCR CTX-M ESBL (PCR) POC Glucose 304 H 03/07/24 03/07/24 03/07/24 21:28 19:43 16:14 WBC RBC Hgb Hct MCV MCH MCHC RDW Plt Count MPV Neut % (Auto) Lymph % (Auto) Haakon % (Auto) Eos % (Auto) Baso % (Auto) Neut # (Auto) Lymph # (Auto) Haakon # (Auto) Eos # (Auto) Baso # (Auto) Abs Immat Gran (auto) Imm/Tot Granulo (auto) VBG pH VBG pCO2 Sodium Potassium Chloride Carbon Dioxide Anion Gap BUN Creatinine Est GFR ( Amer) Est GFR (Non-Af Amer) BUN/Creatinine Ratio Glucose Lactate 2.4 H* Calcium Magnesium Total Bilirubin AST ALT Alkaline Phosphatase Troponin I High Sens C-Reactive Protein NT-Pro-B Natriuret Pep Total Protein Albumin Globulin Albumin/Globulin Ratio Urine Color Urine Clarity Urine pH Ur Specific [place] Urine Protein Urine Glucose (UA) Urine Ketones Urine Occult Blood Urine Nitrite Urine Bilirubin Urine Urobilinogen Ur Leukocyte Esterase Urine RBC Urine WBC Ur Squamous Epith Cells Urine Crystals Urine Bacteria Urine Casts Urine Mucus Ur Culture Indicated? Specimen Source Blood A.calcoaceticus-baumannii cmplx PCR Not detected Bacteroides fragilis Not detected Margaret albicans (PCR) Not detected Margaret auris (PCR) Not detected C. glabrata (PCR) Not detected C. krusei (PCR) Not detected C. parapsilosis (PCR) Not detected C. tropicalis (PCR) Not detected C. neoform/gattii (PCR) Not detected Enterobacterales (PCR) Not detected E. cloacae complex PCR Not detected Enterococc faecalis PCR Not detected Enterococc faecium PCR Not detected E. coli (PCR) Not detected H. influenzae (PCR) Not detected Klebsiella aerogenes (PCR) Not detected Klebsiella oxytoca PCR Not detected K. pneumoniae group (PCR) Not detected List. monocytogenes PCR Not detected N. meningitidis (PCR) Not detected Proteus spp. (copies/mL) Not detected Salmonella spp. (PCR) Not detected Serratia marcescens PCR Not detected Staphylococcus sp PCR Not detected Staph aureus (PCR) Not detected mecA/C & MREJ Resist Gene Not applicable mecA/C-Methicil Resis Gene Not applicable mcr-1 Colistin Res Gene PCR Not applicable Staph epidermidis (PCR) Not detected Staph lugdunensis (TEM-PCR) Not detected S. maltophilia (PCR) Not detected Streptococcus sp PCR Detected A* Strep agalactiae (PCR) Not detected Strep pneumoniae (PCR) Not detected S. pyogenes (PCR) Not detected P. aeruginosa (PCR) Not detected Blanca/B-Vanco Res Genes Not applicable blaIMP Car res Gene PCR Not applicable KPC (blaKPC) Detect PCR Not applicable NDM (blaNDM) Detect PCR Not applicable OXA-48 Carbapenem Resis Gene (PCR) Not applicable blaVIM Car Res Gene PCR Not applicable CTX-M ESBL (PCR) Not applicable POC Glucose 206 H Preliminary micro results at discharge 03/07/24 20:17 Blood Culture Result 2 - Preliminary Blood - Left Forearm 03/07/24 16:14 Blood Culture Result 1 - Preliminary Blood Discharge Plan Discharge Disposition: [facility] Condition: Good
[2024-03-08 21:17] LABS: Glucometer 225 mg/dL (74-106)
[2024-03-08] MEDS: ATORVASTATIN CALCIUM 20 MG TABLET PO (21:33)
[2024-03-08] MEDS: MELOXICAM 7.5 MG TABLET 15 MG PO (21:33)
[2024-03-08] MEDS: METFORMIN HCL 500 MG TABLET 1000 MG PO (21:34)
--- NOTE | 2024-03-08 21:35 | PC.NURSE ---
[facility] paper work faxed and will have transportation within an hour to take pt to [facility]. Demographic sheet also faxed to [facility]
[2024-03-09 07:54] LABS: BOX Test Reference Lab FIRELANDS; BOX Test Sent Out POSITIVE BLOOD CX
[2024-03-09 07:56] LABS: BOX Test Reference Lab FIRELANDS
--- NOTE | 2024-03-11 08:42 | PC.NURSE ---
Urine culture completed from 03/08/24 and no growth in two days. no change in treatment.
== END 2024-03-08 22:08 | disposition short-term general hospital (02) | DRG 871 ==
LOC: ER 19:03 → MS 03-08 07:04
PROVIDERS: Physician Assistant; Registered Nurse; Admitting Provider Family Medicine; Emergency Provider Emergency Medicine; PCP Physician Assistant; Visit Provider Family Medicine
DX: A40.8 Other streptococcal sepsis (principal); J18.9 Pneumonia, unspecified organism; L03.116 Cellulitis of left lower limb; E87.1 Hypo-osmolality and hyponatremia; Z68.43 Body mass index [BMI] 50.0-59.9, adult; I10 Essential (primary) hypertension; R09.02 Hypoxemia; R65.20 Severe sepsis without septic shock; E78.00 Pure hypercholesterolemia, unspecified; M54.50 Low back pain, unspecified; E66.01 Morbid (severe) obesity due to excess calories; D50.9 Iron deficiency anemia, unspecified; R82.998 Other abnormal findings in urine; E11.9 Type 2 diabetes mellitus without complications; Z79.84 Long term (current) use of oral hypoglycemic drugs; Z79.899 Other long term (current) drug therapy; Z79.1 Long term (current) use of non-steroidal anti-inflammatories (NSAID); Z87.891 Personal history of nicotine dependence; Z82.49 Family history of ischemic heart disease and other diseases of the circulatory system; Z83.3 Family history of diabetes mellitus
CPT/HCPCS: 36415; 71045; 71260; 80048; 80053; 81001; 82800; 82948; 83605; 83735; 83880; 84484; 85007; 85025; 85027; 85610; 86140; 87040; 87070; 87086; 87150; 87205; 87420; 87804; 87811; 93005; 93306; 93970; 94640; 94667; 94668; 94761; 96361; 96365; 96372; 99285; G0378; J1650; J2543; J3370; Q9967

== ENCOUNTER 2025-01-04 08:48 | Inpatient (IN) | payer OTHER, SELFPAY ==
--- OUTSIDE RECORDS SUMMARY | 2025-01-04 08:59 | XMS_ITS | Clinical Summary ---
Author Organization [facility] Address [address] [place] [address] Phone Care Team Providers Care Cowlman Name Role Phone Divya Verdin PA-C Primary Care Provider Social History Tobacco UseTypesPacks/DayYears UsedDateSmoking Tobacco: Never AssessedSex and Gender InformationValueDate RecordedSex Assigned at BirthNot on fileLegal Sex Male05/19/2022 9:59 AM EDTGender IdentityNot on fileSexual OrientationNot on file Last Filed Vital Signs Vital SignReadingTime TakenCommentsBlood Gtzelkca260/9405/20/2022 11:13 AM EDT Ccqdf056505/20/2022 11:12 AM EDTTemperature--Respiratory Rate--Oxygen Saturation-- Inhaled Oxygen Concentration--Upbamx910 kg (359 lb)05/20/2022 11:12 AM EDTHeight 185.4 cm (6' 1 )05/20/2022 11:12 AM EDTBody Mass Index47.36005/20/2022 11:12 AM EDT Plan of Treatment Health MaintenanceDue DateLast DoneCommentsCT Ypkggsmnqtsf1965Colonoscopy 1965Colorectal Cancer Udtdvrzip1965FIT-DNA (Cologuard)1965FIT 1965HIV Ctnjpnbja1965Lipid Panel01/16/19653188Pswyqiridpjqi1965 Yearly Adult Trqbwvgw1965MMR Vaccines (1 of 1 - Standard series)1966 Hepatitis C Yvotwjeqi80/12/1983Hepatitis B Vaccines (1 of 3 - 19+ 3-dose series) 01/17/1984DTaP/Tdap/Td Vaccines (1 - Tdap)1987PSA Prostate Cancer Jckfetwqu99/12/2015Pneumococcal Vaccine (1 of 1 - PCV)2015Zoster Vaccines (1 of 2)2015Influenza Vaccine (#1)5COVID-19 Vaccine (1 - season)2024HIB VaccinesAged OutNo longer eligible based on patient's age to complete this topicHPV VaccinesAged OutNo longer eligible based on patient's age to complete this topicHepatitis A VaccinesAged OutNo longer eligible based on patient's age to complete this topicIPV VaccinesAged OutNo longer eligible based on patient's age to complete this topicMeningococcal VaccineAged OutNo longer eligible based on patient's age to complete this topicRotavirus Vaccines Aged OutNo longer eligible based on patient's age to complete this topic Care Teams Team MemberRelationshipSpecialtyStart DateEnd Date Divya Verdin PA-C [facility]05/20/22
--- OUTSIDE RECORDS SUMMARY | 2025-01-04 08:59 | XMS_ITS | CCD ---
Author Organization [facility] Care Team Providers Care Compliance Advisor Name Role Phone MANISH RODRIGUEZ Primary Care Physician [phone] MD Timmy Santana Attending Provider [phone] MIKEY Verdin Primary Care Provider Carolyn Verdin Unavailable Unavailable Unavailable Unavailable Ritesh Ordonez Attending Unavailable Lambert, Mrs. Stokes Dona Primary Care Unav ailable Dr. Timmy Santana Referring Unavailab Daniel Huerta MD Primary Care Provider [phone] DO Silvio Yu II Attending Provider MD Timmy Santana Referring Provider CAROLYN VERDIN Primary Care Physician Carolyn Verdin Primary Care Provider [phone] DANIEL LEONARD Primary Care Unavailable VÍCTOR ROSALES Attending UnavailDANIEL Echavarria Primary Care Unavailable VÍCTOR ROSALES Attending UnavailVÍCTOR Quiñones Admitting UnavailCAROLYN Mascorro Primary Care Unavailable Timmy SANTANA Attending Unavailable Timmy SANTANA Attending Unavailable CAROLYN VERDIN Referring Unavailable Timmy SANTANA Attending Unavailable Timmy SANTANA Attending Unavailable CAROLYN VERDIN Primary Care Unavailable Timmy SANTANA Attending Unavailable CAROLYN VERDIN Primary Care Unavailable MIKEY Verdin Primary Care Provider Amadeo TECHNICAL PROJECT LEAD- Roya E Emergency Provider Osiel Lewis Unavailable Carolyn Thornton Unavailable Manish Rodriugez MD Primary Care Provider Michael PROCTOR, Manish Coffman Unavailable Mike Phelan MD Attending Provider NON STAFF Primary Care Provider Unavailabl e Adelaida MADDEN, Calvin Admit Provider Calvin Son DO Attending Provider Brett Chang MD Other Provider Nelda Casanova MD Other Provider Vasquez CHEMICAL PROCESSING TECHNICIAN-C, Makayla Cedeno Other Provider Franco Graf DO Other Provider [phone] Marek Mullen MD Other Provider Waldemar Rizzo DO Other Provider Jorge Luis Mcgregor MD Attending Provider [phone] Calvin Navarro MD Other Provider Hemjef CHEMICAL PROCESSING TECHNICIAN-C, Carolyn Primary Care Provider Vasquez CHEMICAL PROCESSING TECHNICIAN-C, Makayla Cedeno Other Provider Unavail able Carolyn Bautista APRN Attending Provider [phone] CAROLYN VERDIN Attending Unavailable HEMMERCAROLYN Attending Unavailable HEMMER, CAROLYN Andrews Attending Unavailable HEMMERCAROLYN Attending Unavailable HEMMERCAROLYN Attending Unavailable HEMMERCAROLYN Attending Unavailable HEMCAROLYN BURNS Attending Unavailable HEMCAROLYN BURNS Attending Unavailable Hemmer CHEMICAL PROCESSING TECHNICIAN-C, Carolyn Primary Care Provider [phone] Osiel Lewis MD Attending Provider Osiel Lewis Admitting Unavailable Osiel Lewis Attending Unavailable Carolyn Verdin Primary Care Unavailable Carolyn Verdin Admitting Unavailable HemCarolyn burns Primary Care Unavailable Carolyn Verdin Attending Unavailable Calvin Son Admitting Unavailable Jorge Luis Mcgregor Attending Unavailable Brett Chang Consulting Unavailable Carolyn Verdin Primary Care Unavailable Nelda Casanova Consulting Unavailable Makayla Ovalle Consulting Unavailable Franco Graf Consulting Unavailable Marek Mullen II Consulting UnavailWaldemar Hanna Consulting Unavailable Calvin Navarro Consulting Unavailable Mike Phelan Admitting Unavailable Mike Phelan Attending Unavailable Carolyn Bautista Admitting Unavailable Carolyn Bautista Attending Unavailable Carolyn Verdin Primary Care Unavailable Allergies Allergy ClassificationReported Allergen(s)Allergy TypeDate of OnsetReaction(s) Facility (1 source)No Known Medication Allergies; Translations: [No Known Medication Allergies]Propensity to adverse reactions (disorder)[facility] Medications Current Medications MedicationDrug Class(es)DatesSig (Normalized)Sig (Original)amLODIPine 5 mg oral tablet (20 sources)Dihydropyridine Calcium Channel BlockerStart: 58-13-6154yafl 1 tablet by mouth once daily in the morningAmlodipine 5 mg tablet Active 5 MG PO Every morning May 17, 2022 12:00am Complies with drug therapyBD Luer-Shruthi Syringe 22G X 1 (2 sources)BD Luer-Shruthi Syringe 22G X 1 use every 2 (TWO) weeks with testosterone injection intramuscular once every 2 weeks for 90 days ActiveBD Luer-Shruthi Syringe 22G X 1 3 ML (2 sources)BD Luer-Shruthi Syringe 22G X 1 3 ML USE DIRECTED WITH testosterone EVERY 2 WEEKS ActiveBlood Glucose Monitoring Suppl (D-Care Glucometer) w/Device kit (20 sources)Start: 74-31-7711Xrkro Glucose Monitoring Suppl (D-Care Glucometer) w/Device kit Indications: Type 2 diabetes mellitus with other specified complication (HCC) 1 each Daily Test glucose once a day. 08/24/2023 ActiveStart: 29-87-1673Udlwv Glucose Monitoring Suppl (D-Care Glucometer) w/Device kit Indications: Type 2 diabetes mellitus with other specified complication 1 each Daily Test glucose once a day. 08/24/2023 ActiveStart: 46-12-9082Nfrhy Glucose Monitoring Suppl (D-Care Glucometer) w/Device kit Indications: Type 2 diabetes mellitus with other specified complication ([facility]/HCC) 1 each Daily Test glucose once a day. 08/24/2023 ActiveStart: 18-42-8568Rdvqx Glucose Monitoring Suppl (D- Care Glucometer) w/Device kit Indications: Type 2 diabetes mellitus without complication, without long-term current use of insulin ([facility]/HCC) 1 each in the morning. Test glucose once a day.. 1 kit 0 02/02/2023 Activecefdinir 300 mg oral capsule (1 source)Cephalosporin AntibacterialCefdinir 300 MG as directed Orally Active clobetasol propionate 0.0005 mg/mg topical ointment (20 sources)CorticosteroidStart: 40-65-2369pirbmnhqcg (Temovate) 0.05 % ointment Apply 1 application topically in the morning and 1 application before bedtime. 04/02/2024 ActiveStart: 27-32-1472Dheoymjvii 0.05 % ointment Active 1 APPLIC TOPICAL Daily 60 March 19, 2024 1:00am Complies with drug therapy Continuous Glucose Sensor (FreeStyle Jalil 3 Plus Sensor) misc (7 sources)Start: 77-20-7589Rypdzzdusq Glucose Sensor (FreeStyle Jalil 3 Plus Sensor) misc Indications: Type 2 diabetes mellitus with other specified complication, with long-term current use of insulin ([facility]) 1 each every 14 (fou rteen) days 6 each 3 08/01/2024 ActiveStart: 80-09-8416Ihyjlwnjmn Glucose Sensor (FreeStyle Jalil 3 Plus Sensor) misc Indications: Type 2 diabetes mellitus with other specified complication, with long-term current use of insulin 1 each every 14 (fourteen) days 6 each 3 08/01/2024 Activedoxycycline hyclate 100 mg oral capsule (7 sources)Tetracycline-class DrugStart: 04-26-2024 End: 26-47-3385ctfppfxzuei (Vibramycin) 100 MG capsule Indications: Cellulitis of left lower leg Take 1 capsule (100 mg) by mouth in the morning and 1 capsule (100 mg) before bedtime. Do all this for 10 days. Take with at least 8 ounces (large glass) of water, do not lie down for 30 minutes after. 20 capsule 05/0905/19/2024 Activetake 1 capsule by mouth every twenty-four hours Doxycycline Monohydrate 100 MG 1 capsule Orally Once a day Activeergocalciferol 1.25 mg oral capsule (20 sources)Provitamin D2 CompoundStart: 38-85-9170nwyl 1 capsule by mouth every weekergocalciferol (Vitamin D2) 1.25 MG (62498 UT) capsule Indications: Vitamin D deficiency TAKE 1 CAPSULE BY MOUTH ONCE A WEEK 12 capsule 3 10/01/2024 Active Start: 73-94-2293wsvz 1 capsule by mouth every weekergocalciferol (Vitamin D2) 1.25 MG (98176 UT) capsule Indications: Vitamin D deficiency TAKE 1 CAPSULE BY MOUTH once a week 12 capsule 3 09/06/2023 ActiveStart: 96-91-3035aceg 1 capsule by mouth every weekergocalciferol (Vitamin D2) 1.25 MG (59659 UT) capsule Indications: Vitamin D deficiency Take 1 capsule (1.25 mg) by mouth 1 (one) time per week. 12 capsule 3 08/12/2022 ActiveStart: 74-40-6628Pcskjivfhyforv (Vitamin D2) 1,250 mcg (50,000 unit) capsule Active 1250 UNIT PO every week May 17, 2022 12:00am Complies with drug therapyStart: 62-44-1059cpxfeafawcmxqn 50,000 intl units Cap Refills(s) 0 Start Date: 05/10/22 Status: OrderedComment on above: Ergocalciferol (Vitamin D2) Active 1250 UNIT PO every week May 17, 2022 12:00amfurosemide 40 mg oral tablet (14 sources)Loop DiureticStart: 26-12-0404ctfp 1 tablet by mouth once daily Furosemide (Lasix) 40 mg tablet Active 40 MG PO Daily November 12, 2024 12:00am Complies with drug therapyStart: 46-44-9482ibyh 1 tablet by mouth once dailyfurosemide (Lasix) 40 MG tablet 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 Take 1 tablet (40 mg) by mouth Daily 30 tablet 5 05/09/2024 Active3 ml insulin glargine 100 unt/ml / lixisenatide 0.033 mg/ml pen injector (13 sources)Insulin AnalogStart: 53-42-6052Fkpwjnh Glargine-Lixisenatide (Soliqua 100/33) 100 unit-33 mcg/mL insulin pen Active 20 UNIT SUBCUTEvery morning November 12, 2024 12:00am Complies with drug therapyStart: 08-29-2024 insulin glargine-lixisenatide (Soliqua) 100-33 UNT-MCG/ML pen Indications: Type 2 diabetes mellituswith other specified complication, with long-term current use of insulin ([facility]) Inject 20 Units under the skin in the morning. Inject before meals. 6 mL 5 08/29/2024 ActiveStart: 08-01-2024 End: 26-84-0220jipqcc 15 [IU] by subcutaneous injection before mealtimeSoliqua 100-33 UNT-MCG/ML pen Indications: Type 2 diabetes mellitus with other specified complication, with long-term current use of insulin ([facility]) INJECT 15 UNITS SUBCUTANEOUSLY (UNDER THE SKIN) IN THE MORNING. 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 ([facility]/HCC) Take 1 tablet (20 mg) by mouth at bedtime 04/04/2024 05/09/2024 DiscontinuedStart: 05-17-2022 End: 21-41-1053soac 1 tablet by mouth once daily in the eveningLisinopril 20 mg tablet Discontinued 20 MG PO Every evening May 17, 2022 12:00am March 14, 2024 3:05pmComment on above:Lisinopril Active 20 MG PO Every evening May 17, 2022 12:00ammeloxicam 15 mg oral tablet (20 sources)Nonsteroidal Anti-inflammatory DrugStart: 63-40-4278cbfb 1 tablet by mouth once dailyMeloxicam 15 mg tablet Active 15 MG PO Daily May 17, 2022 12:00am Complies with drug therapymetFORMIN hydrochloride 1000 mg oral tablet (20 sources)BiguanideStart: 50-29-0742aftm 0.5 tablet by mouth in the morning metFORMIN (Glucophage) 1000 MG tablet Indications: Type 2 diabetes mellitus with other specified complication, with long-term current use of insulin (HCC) Take 0.5 tablets (500 mg) by mouth in the morning and 0.5 tablets (500 mg) in the evening. Take with meals. 08/01/2024 ActiveStart: 10-14-2015 End: 16-21-5898oqcf 1 tablet by mouth twice dailyMetformin 1,000 mg tablet Active 1000 MG PO Twice daily May 17, 2022 12:00am Complies with drugtherapy take 1 tablet by mouth twice dailymetFORMIN HCl ER (MOD) 1000 MG Oral Tablet Extended Release 24 Hour Take 1 tablet twice daily Quantity: 0 Refills: 0 Ordered: 20-May-2022 DO Xresos38 hr metoprolol succinate 50 mg extended release oral tablet (20 sources)beta-Adrenergic BlockerStart: 68-67-8116Yqxwlvgpfc Succinate 50 mg tablet extended release 24 hr Active 100 MG PO Every morning November 12, 2024 3:15pm Complies with drug therapyStart: 96-96-4417mtsr 1 tablet by mouth once dailymetoprolol succinate XL (Toprol-XL) 100 MG 24 hr tablet 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 Take 1 tablet (100 mg) by mouth Daily 100 tablet 3 04/26/2024 ActiveStart: 13-35-7757fxln 1 tablet by mouth once dailymetoprolol succinate XL (Toprol-XL) 100 MG 24 hr tablet 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) Take 1 tablet (100 mg) by mouth Daily 04/04/2024 ActiveStart: 42-29-8322lfmetlwgsx succinate ER (TOPROL XL) 50 mg 24 hr tabletStart: 05-17-2022 End: 48-45-3499pcjd 1 tablet by mouth once daily in the morningMetoprolol Succinate 50 mg tablet extended release 24 hr Discontinued 50 MG PO Every morning May 17, 2022 12:00am November 12, 2024 3:16pmStart: 05-10-2022 metoprolol succinate ER 50 mg tablet,extended release 24 hr metoprolol succinate ER 50 mg tablet,extended release 24 hr Start Date: 05/10/22 Status: Ordered OneTouch Verio - (2 sources)OneTouch Verio - use to test blood sugar twice daily Active phentermine hydrochloride 37.5 mg oral tablet (13 sources)Sympathomimetic Amine AnorecticStart: 09-12-2023 End: 29-12-2471nbai 1 tablet by mouth before mealtimephentermine (Adipex-P) 37.5 MG tablet Indications: Morbid obesity (CMS/HCC) Take 1 tablet (37.5 mg)by mouth in the morning. Take before meals. 30 tablet 11/21/2023 ActiveStart: 04-06-2023 End: 16-71-3305pjnv 1 tablet by mouth before mealtimephentermine (Adipex-P) 37.5 MG tablet Indications: Morbid obesity (CMS/HCC) Take 1 tablet (37.5 mg)by mouth in the morning. Take before meals. 30 tablet 0 04/06/2023 05/06/2023 Active pioglitazone 45 mg oral tablet (20 sources)Peroxisome Proliferator Receptor alpha Agonist, Peroxisome Proliferator Receptor gamma Agonist, ThiazolidinedioneStart: 92-51-8731eqmn 1 tablet by mouth once daily in the morningPioglitazone 45 mg tablet Active 45 MG PO Every morning May 17, 2022 12:00am Complies with drugtherapy microencapsulated potassium chloride 10 meq extended release oral tablet (14 sources)Start: 04-26-2024 End: 07-36-3361lipk 1 tablet by mouth once dailypotassium chloride CR (Klor-Con M10) 10 MEQ ER tablet Indications: Pitting edema Take 1 tablet (10 mEq) by mouth Daily Do not crush or chew. 30 tablet 5 05/09/2024 Activesimvastatin 40 mg oral tablet (20 sources)HMG-CoA Reductase InhibitorStart: 53-95-6985psqk 1 tablet by mouth once daily in the eveningSimvastatin 40 mg Tablet Active 40 MG PO Every evening May 17, 2022 12:00am Complies with drug therapyComment on above:Simvastatin Active 40 MG PO Every evening May 17, 2022 12:00amtiZANidine 4 mg oral tablet (20 sources)Central alpha-2 Adrenergic AgonistStart: 12-18-7349rifa 1 tablet by mouth at bedtime as neededtiZANidine (Zanaflex) 4 MG tablet Indications: Muscle spasm of back TAKE 1 TABLET BY MOUTH AT BEDTIME NEEDED 30 tablet 3 05/28/2024 ActiveStart: 43-19-7239uskb 1 tablet by mouth at bedtime as neededtiZANidine (Zanaflex) 4 MG tablet Indications: Muscle spasm of back TAKE 1 TABLET BY MOUTH AT BEDTIME NEEDED 30 tablet 3 01/26/2024 ActiveStart: 87-63-4590eelc 1 capsule by mouth once daily in the evening as needed for painTizanidine (Zanaflex) 4 mg capsule Active 4 MG PO Every evening as needed for Pain May 172:00am Complies with drug therapyComment on above:Tizanidine (Zanaflex) 4 mg capsule Active 4 MG PO Every evening May 17, 2022 12:00am Completed/Discontinued Medications MedicationDrug Class(es)DatesSig (Normalized)Sig (Original)acetaminophen 500 mg oral tablet (1 source)Start: 62-19-9060ecas 2 tablets by mouth every six hours as needed acetaminophen (TYLENOL EXTRA STRENGTH) 500 mg tablet Take 2 tablets by mouth every 6 hours as needed for pain. 60 tablet 0 08/13/2022 ActiveComment on above: Take 2 tablets by mouth every 6 hours as needed for pain.acetaminophen 325 mg / HYDROcodone bitartrate 5 mg oral tablet (20 sources)Opioid AgonistStart: 03-14-2024 End: 49-04-7140onap 1 tablet by mouth twice daily as needed for painHydrocodone- Acetaminophen 5-325 mg tablet Discontinued 1 TAB PO Twice daily as needed for pain 10 5March 14, 2024 November 12, 2024 3:13pmStart: 12-01-2022 End: 15-74-8475wmph 1 tablet by mouth every six hours as needed for pain Hydrocodone-Acetaminophen 5-325 mg tablet Discontinued 1 TAB PO Q6H as needed for pain 10 December 01, 2022 March 09, 2024 3:42amStart: 05-31-2022 End: 04-15-6181yenm 1 tablet by mouth every four to six hours as needed for pain Hydrocodone-Acetaminophen 5-325 mg tablet Discontinued 1 TAB PO EVERY 4-6 HOURS as needed for pain 10 May 31, 2022 June 22, 2022 8:06amStart: 18-35-7422aazf 1 tablet by mouth onceHYDROcodone-acetaminophen (NORCO) 5-325 mg per tablet Take 1 tablet by mouth. 0 05/31/2022 ActiveComment on above:Take 1 tablet by mouth.amoxicillin 875 mg / clavulanate 125 mg oral tablet (12 sources)Penicillin-class AntibacterialStart: 03-23-2024 End: 53-37-1449mjdl 1 tablet by mouth onceamoxicillin-clavulanate (Augmentin) 875-125 MG tablet Indications: Cellulitis of left lower leg Take 1 tablet (875 mg) by mouth every 12 (twelve) hours for 7 days 14 tablet 03/23/2024 04/04/2024 Discontinued (Therapy completed)Start: 03-14-2024 End: 42-74-6639xkid 1 tablet by mouth every twelve hoursamoxicillin-clavulanate (Augmentin) 875-125 MG tablet Take 1 tablet by mouth every 12 (twelve) hours 03/14/2024 03/23/2024 Discontinued (Reorder)Start: 03-14-2024 End: 98-39-5706wkqv 1 tablet by mouth every twelve hoursAmoxicillin-Pot Clavulanate 875-125 mg tablet Discontinued 1 TAB PO Every 12 hours 24 12March 14, 2024 1:00am November 12, 2024 3:13pmcephalexin 500 mg oral capsule (6 sources)Cephalosporin AntibacterialStart: 04-10-2024 End: 72-78-1549wfax 1 capsule by mouth in the morning, then take 1 capsule by mouth in the evening, then take 1 capsule by mouth at bedtimecephalexin (Keflex) 500 MG capsule Indications: Cellulitis of both lower extremities Take 1 capsule (500 mg) by mouth in the morning and 1 capsule (500 mg) in the evening and 1 capsule (500 mg) before bedtime. Do all this for 10 days. 30 capsule 04/10/2024 04/26/2024 Discontinued (Therapy completed)Start: 08-13-2022 End: 45-99-7006gzoy 1 capsule by mouth twice dailycephALEXin (KEFLEX) 500 mg capsule Take 1 capsule by mouth twice daily for 7 days. 14 capsule 0 08/13/2022 08/20/2022 ActiveStart: 74-49-3295relu 1 capsule by mouth twice dailycephALEXin (KEFLEX) 500 mg capsule Take 500 mg by mouth twice daily. 0 05/31/2022 Active Comment on above:Take 500 mg by mouth twice daily.Take 1 capsule by mouth twice daily for 7 days.cholecalciferol 1.25 mg oral capsule (3 sources)Vitamin Dcholecalciferol, Vitamin D3, (VITAMIN D3) 1,250 mcg (50,000 unit) cap capsule Take by mouth. 0 Activetake 1 tablet by mouth every week Vitamin D3 1.25 MG (05789 UT) Oral Capsule one tablet weekly Quantity: 30 Refills: 5 Ordered: 20-May-2022 DO ActiveComment on above:Take by mouth. dicyclomine hydrochloride 20 mg oral tablet (3 sources)AnticholinergicStart: 10-74-3206lqbexyksazf (BENTYL) 20 mg tablet Take 20 mg by mouth. 0 03/09/2019 ActiveComment on above:Take 20 mg by mouth. docosahexaenoic acid 120 mg / eicosapentaenoic acid 180 mg oral capsule (20 sources) End: 84-23-7840zwcc 1 capsule by mouth once dailyomega-3 (Fish Oil) 1000 MG capsule Take 1 capsule by mouth 1 (one) time each day at the same time. 0 04/04/2024 Discontinued (Other)Docosahexanoic Acid-Eicosapent 120-180 mg capsule Take by mouth q 24 HR. 0 ActiveComment on above:Take by mouth q 24 HR.docusate sodium 100 mg oral capsule (1 source)Start: 29-92-0704fjgk 1 capsule by mouth twice dailydocusate sodium (COLACE) 100 mg capsule Take 1 capsule by mouth twice daily. 14 capsule 0 08/13/2022 ActiveComment on above:Take 1 capsule by mouth twice daily. glimepiride 4 mg oral tablet (20 sources)SulfonylureaStart: 05-10-2022 End: 87-83-9953agvl 1 tablet by mouth twice dailyGlimepiride 4 mg tablet Discontinued 4 MG PO Twice daily May 17, 2022 12:00am November 12, 2024 3:13pmtake 1 tablet by mouth once dailyGlimepiride 4 MG Oral Tablet TAKE 1 TABLET DAILY DIRECTED. Quantity: 0 Refills: 0 Ordered: 20-May-2022 DO Active hydroCHLOROthiazide 25 mg / lisinopril 20 mg oral tablet (20 sources)Thiazide Diuretic, Angiotensin Converting Enzyme InhibitorStart: 39-12-7162pufbgjcoqy-hydroCHLOROthiazide (ZESTORETIC) 20-25 mg per tabletStart: 05-17-2022 End: 62-60-9258hmaj 1 tablet by mouth once daily in the morningLisinopril- Hydrochlorothiazide 20-25 mg tablet Discontinued 1 TAB PO Every morning May 172:00am November 12, 2024 3:13pmStart: 05-10-2022 hydrochlorothiazide-lisinopril 25 mg-20 mg Tab Refill(s) 0 Start Date: 05/10/22 Status: OrderedComment on above:Take 1 tablet by mouth once daily. In addition to lisinopril 20 mg QPM.Ketorolac (4 sources)Nonsteroidal Anti-inflammatory Drug, Cyclooxygenase InhibitorStart: 38-26-3297Othbord per 15 mg Apr, 30 mgStart: 32-40-8546Zhugpfd per 15 mg Oct, 30 mglatanoprost 0.05 mg/ml ophthalmic solution (4 sources)Prostaglandin Analoglatanoprost (XALATAN) 0.005 % ophthalmic solution Use in eyes q 24 HR. 0 Activetake 1 drop(s) into the eye(s) once daily Latanoprost 0.005 % Ophthalmic Solution INSTILL 1 DROP INTO AFFECTED EYE(S) ONCE DAILY DIRECTED.Quantity: 0 Refills: 0 Ordered: 20-May-2022 DO ActiveComment on above:Use in eyes q 24 HR.levoFLOXacin 500 mg oral tablet (11 sources)Quinolone AntimicrobialStart: 04-02-2024 End: 71-72-9037nvcc 1 tablet by mouth once dailyLevofloxacin 500 mg tablet Discontinued 500 MG PO Daily April 02, 2024 1:00am November 12, 2024 3:13pmmethylPREDNISolone (2 sources)CorticosteroidStart: 86-65-0142Urdt-Medrol 40 mg Oct, 20 mg metOLazone 5 mg oral tablet (5 sources)Thiazide-like DiureticStart: 04-26-2024 End: 84-34-7525zslz 1 tablet by mouth once dailymetOLazone (Zaroxolyn) 5 MG tablet Indications: Pitting edema Take 1 tablet (5 mg) by mouth Daily for 5 days 5 tablet 04/26/2024 05/09/2024 Discontinued (Therapy completed)naproxen sodium 550 mg oral tablet (2 sources)Nonsteroidal Anti-inflammatory Drugtake 1 tablet by mouth every twelve hoursAnaprox DS 550 MG 1 tablet Orally Twice a day for 10 days Not-Taking predniSONE 20 mg oral tablet (9 sources)Start: 12-01-2022 End: 66-77-2954eyoc 1 tablet by mouth twice dailyPrednisone 20 mg tablet Discontinued 20 MG PO Twice daily 10 December 01, 2022 12:00am 2024 3:43amSemaglutide,0.25 or 0.5MG/DOS, (Ozempic, 0.25 or 0.5 MG/DOSE,) 2 MG/3ML solution pen-injector (2 sources)Start: 08-01-2024 End: 82-72-0428ttnqmf 0.25 mg by subcutaneous injection every week, then inject 0.25 mg by subcutaneous injection every week, then inject 0.5 mg by subcutaneous injection every weekSemaglutide,0.25 or 0.5MG/DOS, (Ozempic, 0.25 or 0.5 MG/DOSE,) 2 MG/3ML solution pen-injector Inject 0.25 mg under the skin 1 (one) time per week 0.25 mg weekly x 1 month, then 0.5 mg weekly. 3 mL 1 08/01/2024 08/01/2024 DiscontinuedSyringe (Disposable) 1 ML (2 sources)Start: 47-42-8336Cvpkrso (Disposable) 1 ML 22 guage 1 intramuscularly Q 2 weeks for 90 days Nov, Not-TakingSyringe (Disposable) 3 ML (2 sources)Start: 01-40-6292Okjfkiz (Disposable) 3 ML as directed IM q 2 weeks for 90 days Jun, Not-TakingSyringe 23G X 1 3 ML misc (19 sources)Start: 02-09-2023 End: 03-25-1171Wtwklch 23G X 1 3 ML misc Indications: Testicular dysfunction Inject 1 each into the shoulder, thigh, or buttocks every 14 (fourteen) days 6 each 1 02/09/2023 04/26/2024 Discontinued (Other)Start: 99-69-0500Fxpkwwq 23G X 1 3 ML [facility] [place] Indications: Testicular dysfunction Inject 1 each into the shoulder, thigh, or buttocks every 14 (fourteen) days 6 each 1 02/09/2023 Active testosterone cypionate 100 mg/ml injectable solution (20 sources)AndrogenStart: 02-09-2023 End: 84-07-4534ervznhndwwxr cypionate (Depo-Testosterone) 100 MG/ML injection Indications: Testicular dysfunction Inject 1 mL (100 mg) into the shoulder, thigh, or buttocks every 14 (fourteen) days 2 mL 2 02/09/2023 04/26/2024 Discontinued (Other)inject 100 mg by intramuscular injection every other week Depo-Testosterone 200 MG/ML 100 mg (0.5 ml) Intramuscular Q 2 weeks Not-Taking Testosterone Cypionate 200 MG/ML 100 mg (0.50ml) of 200mg/ml vial intramuscularly every 2 weeks for90 days Not-TakingTriamcinolone (2 sources)CorticosteroidStart: 19-28-6778NZJSFDZ - 10 mg Apr, 20 mg Problems Active Problems Problem ClassificationProblemDateDocumented DateEpisodic/ChronicBacterial infection; unspecified site (9 sources)Bacteremia; Translations: [Bacteremia]Onset: 608778-27-7764 EpisodicCancer of other male genital organs (20 sources)Malignant tumor of penis; Translations: [Malignant neoplasm of penis, unspecified]Onset: 69-05-1870AjgfhcfBapkzvq ulcer of skin (13 sources)Ulcer of skin of lower extremity; Translations: [Non-pressure chronic ulcer of unspecified part of left lower leg with unspecified severity] Onset: 385125-61-2479KcctwwuRlqefrdfxb disorders (20 sources)EKG: right bundle branch block; Translations: [Right bundle branch block]Onset: 246525-63-0902IpkqagdKgqwhybw mellitus with complications (20 sources)Disorder due to type 2 diabetes mellitus; Translations: [Type 2 diabetes mellitus with unspecified complications]Onset: 649163-97-7704 ChronicDiabetes mellitus without complication (20 sources)Diabetes mellitus; Translations: [Diabetes mellitus without mention of complication, type II or unspecified type, not stated as uncontrolled]Onset: 08-12-2022 Resolved: 502591-62-0707BoaifrxKzkmsxx on above:type 2Disorders of lipid metabolism (20 sources)Hyperlipidemia; Translations: [Other and unspecified hyperlipidemia] Onset: 08-12-2022 Resolved: 052209-85-1063GyeseucImirtbpcd hypertension (20 sources)Hypertensive disorder; Translations: [Unspecified essential hypertension]Onset: 848732-01-1726WyavrekRxwv and other crystal arthropathies (20 sources)Gout; Translations: [Gout, unspecified]Onset: ChronicHeart valve disorders (18 sources)Rheumatic tricuspid insufficiency; Translations: [Diseases of tricuspid valve]Onset: 336354-86-8577YcayirbDzwvlbronjgm with complications and secondary hypertension (20 sources)Hypertension secondary to endocrine disorder; Translations: [Hypertension secondary to endocrine disorders]Onset: ChronicNutritional deficiencies (20 sources)Vitamin D deficiency; Translations: [Vitamin D deficiency, unspecified]Onset: 765952-82-0091AxawukqXxwko acquired deformities (20 sources)Scoliosis of lumbar spine; Translations: [Other forms of scoliosis, lumbar region]Onset: 991567-90-6430SasrhwnKcokn aftercare (2 sources)Long-term current use of insulin; Translations: [wrist liner (current) use of insulin]EpisodicOther connective tissue disease (1 source)Pain in calf; Translations: [Pain in left lower leg]71-95-4095Hhkdwpgo Other connective tissue disease (1 source)Pain in left lower leg; Translations: [Pain in limb]62-98-2054Ecgowsja Other connective tissue disease (4 sources)Pain of left calf; Translations: [Pain in left lower leg]04-02-2024 EpisodicOther connective tissue disease (5 sources)Myofascial pain; Translations: [Myalgia, other site]12-06-2024 EpisodicOther diseases of veins and lymphatics (20 sources)Lymphedema; Translations: [Lymphedema, not elsewhere classified] Onset: 996167-91-1432WiywzcfXjrbj diseases of veins and lymphatics (4 sources)Lymphedema, not elsewhere classified; Translations: [Other lymphedema]Onset: 564647-41-6141NurysbbZscou diseases of veins and lymphatics (5 sources)Edema of left lower limb; Translations: [Chronic venous hypertension (idiopathic) without complications of left lower extremity]78-07-6394Odigufr Other diseases of veins and lymphatics (5 sources)Disorder of vein of lower extremity; Translations: [Venous insufficiency (chronic) (peripheral)]33-82-3239HqawssxwRfuyv diseases of veins and lymphatics (1 source)Venous insufficiency (chronic) (peripheral); Translations: [Varicose veins of lower extremities with inflammation]40-23-0502HhwjrcvnKybvt endocrine disorders (1 source)Testicular hypofunction; Translations: [Testicular hypofunction]Onset: 76-77-9808XjctegfFxmjb endocrine disorders (1 source)Male hzxlvxenzfkp75-80-6904LnognoqJlcjr endocrine disorders (2 sources)Hypogonadotropic hypogonadism; 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 Other endocrine disorders (20 sources)Disorder of endocrine testis; Translations: [Testicular dysfunction, unspecified]Onset: 084927-95-6630BriacxsVzsyt infections; including parasitic (2 sources)History of sepsis; Translations: [Personal history of other infectious and parasitic diseases]23-54-7450XvzjomyvLarho male genital disorders (20 sources)Male erectile dysfunction, unspecified; Translations: [Impotence of organic origin]Onset: 560432-92-2944UrestroWgszf male genital disorders (20 sources)Phimosis; Translations: [Phimosis]Onset: 93-00-1019MpqdeihmEenhl nervous system disorders (17 sources)Chronic pain; Translations: [Other chronic pain]97-29-3146Ltynuut Other nervous system disorders (2 sources)Other chronic painChronicOther non-traumatic joint disorders (12 sources)Hip pain; Translations: [Pain in right hip]12-81-3637NiqwgctdAogjq non-traumatic joint disorders (20 sources)Pain in right hip joint; Translations: [Pain in right hip]Onset: 098774-24-1675TrarlbbmHqjfb non-traumatic joint disorders (1 source)Pain in right hip; Translations: [Pain in right hip]Onset: 11-13-2024 EpisodicOther nutritional; endocrine; and metabolic disorders (2 sources)Sxcuepc26-58-3932CnuhzxuTduwe nutritional; endocrine; and metabolic disorders (20 sources)Body mass index 40+ - severely obese; Translations: [Morbid obesity] Onset: 80-50-0091TllbtehKcswa nutritional; endocrine; and metabolic disorders (1 source)Morbid (severe) obesity due to excess calories; Translations: [Morbid obesity with BMI of 45.0-49.9, adult ([facility])]Onset: 02-64-7808WltvbpxCpdjw nutritional; endocrine; and metabolic disorders (1 source)Body mass index (BMI) 45.0-49.9, adult; Translations: [Morbid obesity with BMI of 45.0-49.9, adult ([facility])]Onset: 55-97-3552ZhlletlSwrtn nutritional; endocrine; and metabolic disorders (20 sources)Morbid obesity; Translations: [Morbid (severe) obesity due to excess calories]Onset: 429087-74-0695XjuduylYntuj nutritional; endocrine; and metabolic disorders (6 sources)Hypophosphatemia; Translations: [Other disorders of phosphorus metabolism]27-53-2952ZslzeyzWybin nutritional; endocrine; and metabolic disorders (6 sources)Hypomagnesemia; Translations: [Hypomagnesemia]70-83-9442NeftxohBmitt nutritional; endocrine; and metabolic disorders (3 sources)Hypomagnesemia; Translations: [Disorders of magnesium metabolism] Onset: 715084-04-4281QzkizheNcvxi nutritional; endocrine; and metabolic disorders (3 sources)Other disorders of phosphorus metabolism; Translations: [Disorders of phosphorus metabolism]Onset: 829431-72-2042LpmfkwbAoiuj screening for suspected conditions (not mental disorders or infectious disease) (1 source)Patient encounter status; Translations: [Encounter for screening for other disorder]EpisodicOther skin disorders (5 sources)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; Translations: [Other specified disorders of pigmentation]03-19-2024 EpisodicOther skin disorders (1 source)Other specified disorders of pigmentation; Translations: [Dyschromia, unspecified]76-03-7500IdzrcaoyOwlgokeu codes; unclassified (6 sources)Pitting edema; Translations: [Edema, unspecified]94-47-6601Ybymuubz Respiratory failure; insufficiency; arrest (adult) (9 sources)Acute respiratory failure; Translations: [Acute respiratory failure with hypoxia]Onset: 445751-52-7792VjcfhlyzUbuxrqbjf and history of mental health and substance abuse codes (1 source)Ex-smoker; Translations: [Personal history of tobacco use]Episodic Comment on above:quit 29+ years ago;Septicemia (except in labor) (9 sources)Sepsis; Translations: [Sepsis, unspecified organism]Onset: 03-08-2024 92-55-3290TrlxoczkWsgw and subcutaneous tissue infections (20 sources)Cellulitis; Translations: [Cellulitis, unspecified]Onset: 03-08-2024 81-10-0790VeggmmypKylbpflbhlq; intervertebral disc disorders; other back problems (20 sources)Solitary sacroiliitis; Translations: [Sacroiliitis, not elsewhere classified]Onset: 20-52-2849UxbrxfmHdgirvcqrkh; intervertebral disc disorders; other back problems (20 sources)Radiculopathy, lumbar region; Translations: [Low back pain]Onset: 23-81-5801Ztsfojnq Past or Other Problems Problem ClassificationProblemDateDocumented DateEpisodic/ChronicBiliary tract disease (20 sources)Biliary calculus; Translations: [Calculus of gallbladder without cholecystitis without obstruction]Onset: 213789-42-5163Zkipvdaz Genitourinary congenital anomalies (20 sources)Congenital buried penis; 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]Onset: 07-12-2022 Resolved: 36-12-0916YtnthrfRnudcqqjz arthritis and osteomyelitis (except that caused by tuberculosis or sexually transmitted disease) (20 sources)Bacterial arthritis of sacroiliac joint; Translations: [Arthritis due to other bacteria, vertebrae]Onset: 174252-36-7257XzoapauvMonooltggyfo conditions of male genital organs (20 sources)Balanoposthitis; 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]Onset: 05-10-2022 Resolved: 82-58-3029Gmbrbev Results Test NameValueInterpretationReference RangeFacilityX-ray reportOrdered By: Adryan Del Castillo on 69-26-1969Vxmkp [facility] Main [place] [id number] XRay Report Signed Patient: Juan Bean JR MR#: [id number] : 1965 Acct:[id number] Age/Sex: 59 / M ADM Date: 5 Loc: XD Room: Type: REG CLI Attending Dr: Osiel Lewis MD Copies to: Osiel Lewis MD~ Ordering Provider: Osiel Lewis MD Date of Service: 11/13/24 XR/XR hip RT min 2V(w/wo pelvis)*: M25.551 - Pain in right hip 2 views right hip INDICATION: Mid to lower back pain, right hip pain FINDINGS: Mild to moderate degenerative changes right hip and right sacroiliac joint. No fractures or dislocation identified. Soft tissues unremarkable. XR/XR hip RT min 2V(w/wo pelvis)* IMPRESSION: Xtgo-ox-rpqeyvjg degenerative changes without evidence acute osseousabnormality. Impression dictated by: Adryan Del Castillo M.D. 11/13/2024 11:24 PM Dictation Location: [place] [address] Transcribed By: [facility] 11/13/242323 Dictated By: Adryan Del Castillo MD 11/13/242323 Signed By: 11/13/24 [facility] Work Phone: [facility] Main [address] [address] XRay Report Signed Patient: Juan Bean JR MR#: [id number] : 1965 Acct:[id number] Age/Sex: 59 / M ADM Date: 5 Loc: XD Room: Type: REG CLI Attending Dr: Osiel Lewis MD Copies to: Osiel Lewis MD~ Ordering Provider: Osiel Lewis MD Date of Service: 11/13/24 XR/XR thoracic spine 3V*: M54.9 - Dorsalgia, unspecified 3 views of the thoracic spine INDICATION: Mid/lower back pain, right hip pain for years getting worse Comparison CT chest 03/07/2024 FINDINGS: Straightening of the normal thoracic kyphosis. Overall moderate multilevel intervertebralspace narrowing and endplate spurring involving the thoracic spine. Focal congenital wedging of W02gwvtjgksv body likely congenital basis. Otherwise the The thoracic vertebral heights preserved. Mild dextrocurvature at the level of the thoracal lumbar junction. Gallstones identified. XR/XR thoracic spine 3V* IMPRESSION: Moderate degenerative changes. No evidence acute fracture malalignment. Incidental note of cholelithiasis. Impression dictated by: Adryan Del Castillo M.D. 11/13/2024 10:28 PM Dictation Location: [facility] Transcribed By: [facility] 11/13/242227 Dictated By: Adryan Del Castillo MD 11/13/242224 Signed By: 11/13/242227 [facility] Work Phone: XR hip RT min 2V(w/wo pelvis)*on 84-20-2001IZ hip RT min 2V(w/wo pelvis)*[facility] [place] [address] [place] [address] XRay Report Signed Patient: Juan Bean JR MR#: [id number] : 1965 Acct:[id number] Age/Sex: 59 / M ADM Date: 11/13/24 Loc: XD Room: Type: [facility] Attending Dr: Osiel Lewis MD Copies to: Osiel Lewis MD Ordering Provider: Osiel Lewis MD Date of Service: 11/13/24 XR/XR hip RT min 2V(w/wo pelvis)*: M25.551 - Pain in right hip 2 views right hip INDICATION: Mid to lower back pain, right hip pain FINDINGS: Mild to moderate degenerative changes right hip and right sacroiliac joint. No fractures or dislocation identified. Soft tissues unremarkable. XR/XR hip RT min 2V(w/wo pelvis)* IMPRESSION: Dwvk-kc-zvtowawd degenerative changes without evidence acute osseous abnormality. Impression dictated by: Adryan Del Castillo M.D. 11/13/2024 11:24 PM Dictation Location: [facility]IO-PC-29 Transcribed By: GISSELL 11/13/242323 Dictated By: Adryan Del Castillo MD 11/13/242323 Signed By: 11/13/242323[facility] Physician GroupXR thoracic spine 3V*on 35-14-0181SM thoracic spine 3V*[facility] Main [place] [address] [place] [address] XRay Report Signed Patient: Juan Bean JR MR#: [id number] : 1965 Acct:[id number] Age/Sex: 59 / M ADM Date: 11/13/24 Loc: XD Room: Type: [facility] Attending Dr: Osiel Lewis MD Copies to: Osiel Lewis MD Ordering Provider: Osiel Lewis MD Date of Service: 11/13/24 XR/XR thoracic spine 3V*: M54.9 - Dorsalgia, unspecified 3 views of the thoracic spine INDICATION: Mid/lower back pain, right hip pain for years getting worse Comparison CT chest 03/07/2024 FINDINGS: Straightening of the normal thoracic kyphosis. Overall moderate multilevel intervertebral space narrowing and endplate spurring involving the thoracic spine. Focal congenital wedging of T10 vertebral body likely congenital basis. Otherwise the The thoracic vertebral heights preserved. Mild dextrocurvature at the level of the thoracal lumbar junction. Gallstones identified. XR/XR thoracic spine 3V* IMPRESSION: Moderate degenerative changes. No evidence acute fracture malalignment. Incidental note of cholelithiasis. Impression dictated by: Adryan Del Castillo M.D. 11/13/2024 10:28 PM Dictation Location: [facility]-29 Transcribed By: GISSELL 11/13/242227 Dictated By: Adryan Del Castillo MD 11/13/242224 Signed By: 11/13/242227[facility] GroupLaboratory - Hematology and Cell countson 88-24-7690ZqN7o (Bld) [Mass fraction]6.9 %[facility] Panel Informationon 90-58-5024Cglkcvgyfxgulb and review of laboratory resultsAbUNC Health SoutheasternLaboratory - Hematology and Cell countson 03-46-4297AmK4r (Bld) [Mass fraction]8.3 %[facility] Panel Informationon 85-51-4618Xasqwmkutgzexu and review of laboratory resultsAbMcLaren Oakland HealthcareALBUMIN, RANDOM URINE W/CREATININEon 27-49-1455SYJDEBY, URINE<0.2 NormalSee Note:[facility] DiagnosticsComment on above:Result Comment: Reference Range: Reference Range Not establishedPerformed By: #### 6517, 3850 #### [facility] [address], [address] [place] [address] Zipper Repairer: Urban Galloway MD #### 6399, 366[address] #### [facility] [address] [place] [phone] Zipper Repairer: Ryann FrankliniALBUMIN/CREATININE RATIO, RANDOM URINENOTE Normal<30Quest DiagnosticsComment on above:Result Comment: NOTE: The urine albumin value is less than 0.2 mg/dL therefore we are unable to calculate excretion and/or creatinine ratio. The ADA defines abnormalities in albumin excretion as follows: Albuminuria Category Result (mg/g creatinine) Normal to Mildly increased <30 Moderately increased 30-299 Severely increased > OR = 300 The ADA recommends that at least two of three specimens collected within a 3-6 month period be abnormal before considering a patient to be within a diagnostic category.Performed By: #### 6517, 7600 #### [facility] [address], [address] [place] [address] Zipper Repairer: Urban Galloway MD #### 6399, 20997 #### [email or web address] [address] [place] [phone] Zipper Repairer: Ryann Pack FlatiCreatinine (U) [Mass/Vol]12 mg/tOYsq04-592 Quest DiagnosticsComment on above:Performed By: #### 6517, 7600 #### [facility] [address], [address] [place] [address] Zipper Repairer: Urban Galloway MD #### 6399, 38[address] #### [facility] [address] [place] [address] Zipper Repairer: Ryann FrankliniCBC (INCLUDES DIFF/PLT)on 82-16-5753Obtmenenj (Bld) [#/Vol]0.017 10*3/uLNormal0-200Quest DiagnosticsComment on above:Performed By: #### 6517, 7600 #### [facility] [address], [address] [place] [address] Zipper Repairer: Urban Galloway MD #### 6399, 78360 #### [facility] [address] [place] [address] Zipper Repairer: Ryann FrankliniBasophils/100 WBC (Bld)0.2 %NormalQuest DiagnosticsComment on above:Performed By: #### 6517, 0 #### [facility] [address], [address] [place] [address] Zipper Repairer: Urban Galloway MD #### 6399, 15853 #### [facility] [address] [place] [address] Zipper Repairer: Ryann FrankliniCOMMENT(S)NormalQuest DiagnosticsComment on above:Result Comment: Review of peripheral smear confirms automated results.Performed By: #### 6517, 0 #### [facility] [address], [address] [place] [address] Zipper Repairer: Urban Galloway MD #### 6399, 850[address] #### [facility] [address] [place] [address] Zipper Repairer: Ryann Pack FlatiEosinophils (Bld) [#/Vol]0.118 10*3/uLNormal 15-500Quest DiagnosticsComment on above:Performed By: #### 6517, 5280 #### [facility] [address], [address] [place] [address] Zipper Repairer: Urban Galloway MD #### 6399, 30626 #### [facility] [address] [place] [address] Zipper Repairer: Ryann FrankliniEosinophils/100 WBC (Bld)1.4 %NormalQuest DiagnosticsComment on above:Performed By: #### 6517, 7600 #### [facility] [address], [address] [place] [address] Zipper Repairer: Urban Galloway MD #### 6399, 37931 #### [facility] [address] [place] [address] Zipper Repairer: Ryann FrankliniErythrocyte distribution width (RBC) [Ratio] 14.7 %Japajr69.0-15.0Quest DiagnosticsComment on above:Performed By: #### 6517, 5470 #### [facility] [address], [address] [place] [address] Zipper Repairer: Urban Galloway MD #### 6399, 30457 #### [facility] [address] [place] [address] Zipper Repairer: Ryann Pack FlatiHematocrit (Bld) [Volume fraction]40.6 %Normal 38.5-50.0Quest DiagnosticsComment on above:Performed By: #### 6517, 0 #### [facility] [address], [address] [place] [address] Zipper Repairer: Urban Galloway MD #### 6399, 23996 #### [facility] [address] [place] [address] Zipper Repairer: Ryann Pack FlatiHemoglobin (Bld) [Mass/Vol]12.9 g/dLLow 13.2-17.1Quest DiagnosticsComment on above:Performed By: #### 6517, 7600 #### [facility] [address], [address] [place] [address] Zipper Repairer: Urban Galloway MD #### 6399, 36468 #### [facility] [address] [place] [address] Zipper Repairer: Ryann FrankliniLymphocytes (Bld) [#/Vol]1.109 10*3/uLNormal 850-3900Quest DiagnosticsComment on above:Performed By: #### 6517, 7600 #### [facility] [place] [address], [address] [place] [address] Zipper Repairer: Urban Galloway MD #### 6399, 27272 #### [facility] [address] [place] [address] Zipper Repairer: Ryann FrankliniLymphocytes/100 WBC (Bld)13.2 %NormalQuest DiagnosticsComment on above:Performed By: #### 6517, 7600 #### [facility] [address], [address] [place] [address] Zipper Repairer: Urban Galloway MD #### 6399, 91801 #### [facility] [address] [place] [address] Zipper Repairer: Ryann BaltazarCH (RBC) [Entitic mass]29.7 guKukurj31.0-33.0 Quest DiagnosticsComment on above:Performed By: #### 6517, 7600 #### [facility] [address], [address] [place] [address] Zipper Repairer: Urban Galloway MD #### 6399, 95236 #### [facility] [address] [place], [place] [id number] Zipper Repairer: Ryann FrankliniMCHC (RBC) [Mass/Vol]31.8 g/dLLow32.0-36.0 Quest DiagnosticsComment on above:Result Comment: For adults, a slight decrease in the calculated MCHC value (in the range of 30 to 32 g/dL) is most likely not clinically significant; however, it should be interpreted with caution in correlation with other red cell parameters and the patient's clinical condition.Performed By: #### 6517, 0 #### [facility] [address], [address] [place] [address] Zipper Repairer: Urban Galloway MD #### 6399, 26853 #### [facility] [address] [place] [address] Zipper Repairer: Ryann Pack FlatiMCV (RBC) [Entitic vol]93.5 pVYjfynx40.0-100.0 Quest DiagnosticsComment on above:Performed By: #### 6517, 0 #### [facility] [address], [address] [place] [address] Zipper Repairer: Urban Galloway MD #### 6399, 59881 #### [facility] [address] Zipper Repairer: Ryann Pack FlatiMonocytes (Bld) [#/Vol]0.596 10*3/uLNormal 200-950Quest DiagnosticsComment on above:Performed By: #### 6517, 0 #### [facility] [address], [address] [place] [address] Zipper Repairer: Urban Galloway MD #### 6399, 36206 #### [facility]-[address] Zipper Repairer: Ryann Pack FlatiMonocytes/100 WBC (Bld)7.1 %NormalQuest DiagnosticsComment on above:Performed By: #### 6517, 7600 #### [facility] [address] , [address] [place] [address] Zipper Repairer: Urban Galloway MD #### 6399, 91515 #### [facility] [address] [place] [address] Zipper Repairer: Ryann Pack FlatiNeutrophils (Bld) [#/Vol]6.56 10*3/uLNormal 1500-7800Quest DiagnosticsComment on above:Performed By: #### 6517, 7600 #### [facility] [address], [address] [place], [place] [id number] Zipper Repairer: Urban Galloway MD #### 6399, 90836 #### [facility] [address] [place] [address] Zipper Repairer: Ryann Pack FlatiNeutrophils/100 WBC (Bld)78.1 %NormalQuest DiagnosticsComment on above:Performed By: #### 6517, 7600 #### [facility] [address], [address] [place] [address] Zipper Repairer: Urban Galloway MD #### 6399, 64886 #### [facility] [address] Zipper Repairer: Ryann Pack FlatiPlatelet mean volume (Bld) [Entitic vol]10.0 fLNormal7.5-12.5Quest DiagnosticsComment on above:Performed By: #### 6517, 7600 #### [facility] [place] [address], [address] [place] [address] Zipper Repairer: Urban Galloway MD #### 6399, 15362 #### [facility] [address] Zipper Repairer: Ryann Pack FlatiPlatelets (Bld) [#/Vol]186 10*3/uLNormal 140-400Quest DiagnosticsComment on above:Performed By: #### 6517, 7600 #### [facility] [address], [address] [place] [address] Zipper Repairer: Urban Galloway MD #### 6399, 12651 #### [facility] [address] [place] [address] Zipper Repairer: Ryann Pack FlatiRBC (Bld) [#/Vol]4.34 10*6/uLNormal4.20-5.80 [facility] DiagnosticsComment on above:Performed By: #### 6517, 0 #### [facility] [address], [address] [place] [address] Zipper Repairer: Urban Galloway MD #### 6399, 23688 #### [facility] [address] [place] [address] Zipper Repairer: Ryann FrankliniWBC (Bld) [#/Vol]8.4 10*3/uLNormal3.8-10.8 [facility] DiagnosticsComment on above:Performed By: #### 6517, 7600 #### [facility] [address], [address] [place] [address] Zipper Repairer: Urban Galloway MD #### 6399, 69157 #### [facility]-[place] [address] Zipper Repairer: Ryann FrankliniCOMPREHENSIVE METABOLIC PANELon 05-15-2024 Albumin [Mass/Vol]4.4 g/dLNormal3.6-5.1Quest DiagnosticsComment on above: Performed By: #### 6517, 0 #### [facility] [address], [address] [place] [address] Zipper Repairer: Urban Galloway MD #### 6399, 83522 #### [facility] [address] Zipper Repairer: Ryann FrankliniAlbumin/Globulin [Mass ratio]1.4 {ratio}Normal 1.0-2.5Quest DiagnosticsComment on above:Performed By: #### 6517, 7600 #### [facility] [address], [address] [place] [address] Zipper Repairer: Urban Galloway MD #### 6399, 20613 #### [facility] [address] [place], [place] [address] Zipper Repairer: Ryann Pack FlatiALP [Catalytic activity/Vol]54 U/MKcsuyr08-276 Quest DiagnosticsComment on above:Performed By: #### 6517, 3700 #### [facility] [address], [address] [place] [address] Zipper Repairer: Urban Galloway MD #### 6399, 17184 #### [facility] [address] [place] [address] Zipper Repairer: Ryann Pack FlatiALT [Catalytic activity/Vol]22 U/LNormal9-46 [facility] DiagnosticsComment on above:Performed By: #### 6517, 7600 #### [facility] [address], [address] [place] [address] Zipper Repairer: Urban Galloway MD #### 6399, 01927 #### [facility] [address] [place] [address] Zipper Repairer: Ryann FrankliniAST [Catalytic activity/Vol]21 U/TVbieoj56-06 [facility] DiagnosticsComment on above:Performed By: #### 6517, 0 #### [facility] [address], [address] [place] [address] Zipper Repairer: Urban Galloway MD #### 6399, 89094 #### [facility] [address] [place] [address] Zipper Repairer: Ryann FrankliniBilirubin [Mass/Vol]0.6 mg/dLNormal0.2-1.2 Quest DiagnosticsComment on above:Performed By: #### 6517, 0 #### [facility] [address], [address] [place] [address] Zipper Repairer: Urban Galloway MD #### 6399, 80184 #### [facility] [address] [place] [address] Zipper Repairer: Ryann FrankliniBUN/CREATININE RATIOSEE NOTE:Normal6-22Quest DiagnosticsComment on above:Result Comment: Not Reported: BUN and Creatinine are within reference range.Performed By: #### 6517, 8660 #### [facility] [address], [address] [place] [address] Zipper Repairer: Urban Galloway MD #### 6399, 19013 #### [facility] [address] [place] [address] Zipper Repairer: Ryann Pack FlatiCalcium [Mass/Vol]9.7 mg/dLNormal8.6-10.3Quest DiagnosticsComment on above:Performed By: #### 6517, 7600 #### [facility] [address], [address] [place] [address] Zipper Repairer: Urban Galloway MD #### 6399, 00549 #### [facility] [address] [place] [address] Zipper Repairer: Ryann Pack FlatiChloride [Moles/Vol]98 mmol/BKfogyf88-881Oauhk DiagnosticsComment on above:Performed By: #### 6517, 0830 #### [facility] [address] , [address] [place] [address] Zipper Repairer: Urban Galloway MD #### 6399, 26587 #### [facility] [address] Zipper Repairer: Ryann FrankliniCO2 [Moles/Vol]31 mmol/YNxayha37-54Gxhtr DiagnosticsComment on above:Performed By: #### 6517, 7600 #### [facility] [address], [address] [place] [address] Zipper Repairer: Urban Galloway MD #### 6399, 70330 #### [facility] [address] [place] [address] Zipper Repairer: Ryann Pack FlatiCreatinine [Mass/Vol]0.79 mg/dLNormal0.70-1.30 Quest DiagnosticsComment on above:Performed By: #### 6517, 7600 #### [facility] [address] , [address] [place] [address] Zipper Repairer: Urban Galloway MD #### 6399, 93095 #### [facility] [address] [place] [phone] Zipper Repairer: Ryann FrankliniGFR/1.73 sq M.predicted among non-blacks MDRD (S/P/Bld) [Vol rate/Area]102 mL/min/{1.73_m2}Normal> OR = 60[facility] Comment on above:Performed By: #### 6517, 4370 #### [facility] [address], [address] [place] [address] Zipper Repairer: Urban Galloway MD #### 6399, 32468 #### [facility] [address] [place] [phone] Zipper Repairer: Ryann FrankliniGlobulin (S) [Mass/Vol]3.1 g/dLNormal1.9-3.7 Quest DiagnosticsComment on above:Performed By: #### 6517, 5150 #### [facility] [address], [address] [place] [address] Zipper Repairer: Urban Galloway MD #### 6399, 64162 #### [facility] [address] [place] [phone] Zipper Repairer: Ryann Pack FlatiGlucose [Mass/Vol]193 mg/gYTvrm18-85Zckvx DiagnosticsComment on above:Result Comment: Fasting reference interval For someone without known diabetes, a glucose value >125 mg/dL indicates that they may have diabetes and this should be confirmed with a follow-up test.Performed By: #### 6517, 8030 #### [facility] [address], [address] [place], [place] [id number] Zipper Repairer: Urban Galloway MD #### 6399, 88218 #### [facility] [address] [place] [phone] Zipper Repairer: Ryann Pack FlatiPotassium [Moles/Vol]4.5 mmol/LNormal3.5-5.3 Quest DiagnosticsComment on above:Performed By: #### 6517, 7430 #### [facility] [address], [address] [place] [address] Zipper Repairer: Urban Galloway MD #### 6399, 04304 #### [facility] [address] [place] [address] Zipper Repairer: Ryann FrankliniProtein [Mass/Vol]7.5 g/dLNormal6.1-8.1Quest DiagnosticsComment on above:Performed By: #### 6517, 7600 #### [facility] [address], [address] [place] [address] Zipper Repairer: Urban Galloway MD #### 6399, 55549 #### [facility] [address] Zipper Repairer: Ryann FrankliniSodium [Moles/Vol]139 mmol/JGmdmau429-147Xbwvu DiagnosticsComment on above:Performed By: #### 6517, 0 #### [facility] [address], [address] [place] [address] Zipper Repairer: Urban Galloway MD #### 6399, 32854 #### [facility] [address] Zipper Repairer: Ryann FrankliniUrea nitrogen [Mass/Vol]25 mg/dLNormal7-25 Quest DiagnosticsComment on above:Performed By: #### 6517, 0 #### [facility] [address], [address] [place] [address] Zipper Repairer: Urban Galloway MD #### 6399, 93459 #### [facility] [address] [place] [phone] Zipper Repairer: Ryann FrankliniLIPIJorge HYLTON, [facility] 93-27-5080Pqocowraaxx [Mass/Vol]136 mg/dLNormal<200Quest DiagnosticsComment on above:Order Comment: FASTING:YES FASTING: YESPerformed By: #### 6517, 0 #### [facility] [address], [address] [place], [place] [address] Zipper Repairer: Urban Galloway MD #### 6399, 26185 #### [facility] [address] [place] [phone] Zipper Repairer: Ryann Pack FlatiCholesterol in HDL [Mass/Vol]63 mg/dLNormal> OR = 40Quest DiagnosticsComment on above:Order Comment: FASTING:YES FASTING: YESPerformed By: #### 6517, 0 #### [facility] [address], [address] [place] [address] Zipper Repairer: Urban Galloway MD #### 6399, 70605 #### [facility] [address] Zipper Repairer: Ryann Pack FlatiCholesterol in LDL [Mass/Vol]50 mg/dLNormal [facility] DiagnosticsComment on above:Order Comment: FASTING:YES FASTING: YESResult Comment: Reference range: <100 Desirable range <100 mg/dL for primary prevention; <70 mg/dL for patients with CHD or diabetic patients with > or = 2 CHD risk factors. LDL-C is now calculated using the Sedrick-Papito calculation, which is a validated novel method providing better accuracy than the Friedewald equation in the estimation of LDL-C. Sedrick HOLBROOK et al. MITZY. 2013;310(19): 7656-6095 (http://education.[employer]/faq/VVL795)Performed By: #### 6517, 0 #### [facility] [address], [address] [place], [place] [address] Zipper Repairer: Urban Galloway MD #### 6399, 35351 #### [facility] [address] [place] [phone] Zipper Repairer: Ryann Ashley.total/Cholesterol in HDL [Mass ratio]2.2 {ratio}Normal<5.0Quest DiagnosticsComment on above:Order Comment: FASTING:YES FASTING: YESPerformed By: #### 6517, 0 #### [facility] [address], [address] [place] [address] Zipper Repairer: Urban Galloway MD #### 6399, 60519 #### [facility] [address] [place] [phone] Zipper Repairer: Ryann Anne HDL IEARDJGVZWK18 mg/dL (calc)Normal<130 Quest DiagnosticsComment on above:Order Comment: FASTING:YES FASTING: YESResult Comment: For patients with diabetes plus 1 major ASCVD risk factor, treating to a non-HDL-C goal of <100 mg/dL (LDL-C of <70 mg/dL) is considered a therapeutic option.Performed By: #### 6517, 7600 #### [facility] [address], [address] [place] [address] Zipper Repairer: Urban Galloway MD #### 6399, 80297 #### [facility] [address] [place] [phone] Zipper Repairer: Ryann FrankliniTriglyceride [Mass/Vol]152 mg/dLHigh<150Quest DiagnosticsComment on above:Order Comment: FASTING:YES FASTING: YESPerformed By: #### 6517, 7600 #### [facility] [address], [address] [place] [address] Zipper Repairer: Urban Galloway MD #### 6399, 48514 #### [facility] [address] [place] [phone] Zipper Repairer: Ryann Goodrichatory - Hematology and Cell countson 60-68-7066IcG4o (Bld) [Mass fraction]7.8 %NOMS HealthcareNo Panel Informationon 18-09-6639Mhpivcjaqdamqr and review of laboratory resultsAbnormalNOIA Healthcare NOMS HealthcareUS venous duplex LE LTon 76-45-9582ZK venous duplex LE [facility] [address] Ultrasound Report Signed Patient: Juan Bean JR MR#: [id number] : 1965 Acct:[id number] Age/Sex: 59 / M ADM Date: 04/02/24 [facility]: [facility]: [facility] Att[facility] Dr: Carolyn Bautista APRN Ordering Provider: Carolyn Bautista APRN Date of Service: 04/02/24 US/US venous duplex LE LT: CALF TENDERNESS, EDEMA, PAIN REDNESS Copies to: Carolyn Bautista APRN LEFT LOWER EXTREMITY VENOUS DUPLEX INDICATION: Edema pain and tenderness. Wound on the left leg. Unilateral left lower extremity venous duplex Doppler study was obtained utilizing B-mode, color- flow and spectral Doppler. FINDINGS: The left common femoral, femoral, and popliteal veins showed adequate compressibility, color-flow and augmentation. The left posterior tibial and peroneal veins were compressible, as well as proximal greater saphenous vein. The contralateral right common femoral vein was compressible with color-flow and augmentation. US/US venous duplex LE LT IMPRESSION: NO EVIDENCE OF DEEP VENOUS THROMBOSIS IN THE LEFT LOWER EXTREMITY. NO SUPERFICIAL THROMBOPHLEBITIS WAS NOTED. Impression dictated by: Alex Sandoval MD04/02/2024 3:30 PM Dictation Location: [place] [address] Tech: Joanne Lorenzo Transcribed By: GISSELL 04/02/24 1530 Dictated By: Alex Sandoval MD 04/02/24 1527 Signed By: 04/02/24 1530NoFormerly [facility] Physician GroupGlucose Glucometer (dC) [Mass/Vol]Ordered By: Jorge Luis Mcgregor on 75-12-1026Iwypqqh [Mass/Vol]Capillary blood glucose measurement by glucometer (mass/volume)[facility] Jewish HospitalComment on above:Random Glucose Reference Range is dependent on time and content of last meal. Glucose of more than 200 mg/dL in a nonstressed, ambulatory subject supports the diagnosis of Diabetes Mellitus.Glucose Poct Glucometerson 12-16-1228Fhqplhf [Mass/Vol]172 mg/dLTGH Crystal River Physician GroupComment on above:Result Comment: Random Glucose Reference Range is dependent on time and content of last meal. Glucose of more than 200 mg/dL in a nonstressed, ambulatory subject supports the diagnosis of Diabetes Mellitus. PERFORMED BY: [place] [id number] PATHOLOGIST INSPECTOR HAIRSPRING WICHO EVERETT M.D.Performed By: #### MG, CMP, CBC #### [place] [address] USAGlucose [Mass/Vol]177 mg/dLNoFormerly [facility] Physician GroupComment on above:Result Comment: Random Glucose Reference Range is dependent on time and content of last meal. Glucose of more than 200 mg/dL in a nonstressed, ambulatory subject supports the diagnosis of Diabetes Mellitus. PERFORMED BY: [place] [id number] PATHOLOGIST INSPECTOR HAIRSPRING WICHO EVERETT M.D.Performed By: #### MG, CMP, CBC #### [place] [address] USAGlucose [Mass/Vol]154 mg/dLNormBeraja Medical Institute Physician GroupComment on above:Result Comment: Random Glucose Reference Range is dependent on time and content of last meal. Glucose of more than 200 mg/dL in a nonstressed, ambulatory subject supports the diagnosis of Diabetes Mellitus. PERFORMED BY: [place] [id number] PATHOLOGIST INSPECTOR HAIRSPRING WICHO EVERETT M.D.Performed By: #### GLULS #### Point of Care testing ,Glucose Poct Glucometerson 81-63-6932Fmcpcqx [Mass/Vol]222 mg/dLNoFormerly [facility] Physician GroupComment on above:Result Comment: Random Glucose Reference Range is dependent on time and content of last meal. Glucose of more than 200 mg/dL in a nonstressed, ambulatory subject supports the diagnosis of Diabetes Mellitus. PERFORMED BY: [place] [id number] PATHOLOGIST INSPECTOR HAIRSPRING WICHO EVERETT M.D.Performed By: #### MG, CMP, CBC #### [place] [address] USAGlucose [Mass/Vol]179 mg/dLTGH [facility] River Physician GroupComment on above:Result Comment: Random Glucose Reference Range is dependent on time and content of last meal. Glucose of more than 200 mg/dL in a nonstressed, ambulatory subject supports the diagnosis of Diabetes Mellitus. PERFORMED BY: [place] [id number] PATHOLOGIST INSPECTOR HAIRSPRING WICHO EVERETT M.D.Performed By: #### MG, CMP, CBC #### [facility] [address] [place] [address] [id number]: Cleaned MeterNoFormerly [facility] Physician GroupComment on above:Result Comment: PERFORMED BY: [place] [id number] PATHOLOGIST INSPECTOR HAIRSPRING WICHO EVERETT M.D.Performed By: #### GLULS #### Point of Care testing ,Glucose [Mass/Vol]183 mg/dLNoFormerly [facility] Physician GroupComment on above: Result Comment: Random Glucose Reference Range is dependent on time and content of last meal. Glucose of more than 200 mg/dL in a nonstressed, ambulatory subject supports the diagnosis of Diabetes Mellitus.Performed By: #### GLULS #### Point of Care testing ,Glucose [Mass/Vol]176 mg/dLNoFormerly [facility] Physician GroupComment on above: Result Comment: Random Glucose Reference Range is dependent on time and content of last meal. Glucose of more than 200 mg/dL in a nonstressed, ambulatory subject supports the diagnosis of Diabetes Mellitus. PERFORMED BY: [place] [id number] PATHOLOGIST INSPECTOR HAIRSPRING WICHO EVERETT M.D.Performed By: #### MG, CMP, CBC #### [facility] [address] [place], [place] [address] USANo Panel InformationOrdered By: Jorge Luis Mcgregor on 37-00-2101Thjooxh Glucose CommentGlu2: cleaned meterMercy Health – The Jewish HospitalGlucose Poct Glucometerson 87-27-8033Qcrqoxr [Mass/Vol]184 mg/dLNoFormerly [facility] Physician GroupComment on above:Result Comment: Random Glucose Reference Range is dependent on time and content of last meal. Glucose of more than 200 mg/dL in a nonstressed, ambulatory subject supports the diagnosis of Diabetes Mellitus. PERFORMED BY: [place] [id number] PATHOLOGIST INSPECTOR HAIRSPRING WICHO EVERETT M.D.Performed By: #### GLULS #### Point of Care testing ,Vgkuxtm5Xbm1: Cleaned MeterNoFormerly [facility] Physician GroupComment on above: Result Comment: PERFORMED BY: [place] [address] PATHOLOGIST INSPECTOR HAIRSPRING WICHO EVERETT M.D.Performed By: #### MG, CMP, CBC #### [facility] [address] [place] [address] USAGlucose [Mass/Vol]171 mg/dLNoFormerly [facility] Physician GroupComment on above:Result Comment: Random Glucose Reference Range is dependent on time and content of last meal. Glucose of more than 200 mg/dL in a nonstressed, ambulatory subject supports the diagnosis of Diabetes Mellitus.Performed By: #### MG, CMP, CBC #### [facility] [address] [place] [address] USAGlucose [Mass/Vol]257 mg/dLNoFormerly [facility] Physician GroupComment on above:Result Comment: Random Glucose Reference Range is dependent on time and content of last meal. Glucose of more than 200 mg/dL in a nonstressed, ambulatory subject supports the diagnosis of Diabetes Mellitus. PERFORMED BY: [place] [id number] PATHOLOGIST INSPECTOR HAIRSPRING WICHO EVERETT M.D.Performed By: #### MG, CMP, CBC #### [facility] [address] [place] [address] [id number]: Cleaned MeterTGH Crystal River Physician GroupComment on above:Result Comment: PERFORMED BY: [address] [place] [address] PATHOLOGIST INSPECTOR HAIRSPRING WICHO EVERETT M.D.Performed By: #### GLULS #### Point of Care testing ,Glucose [Mass/Vol]237 mg/dLTGH [facility] River Physician GroupComment on above: Result Comment: Random Glucose Reference Range is dependent on time and content of last meal. Glucose of more than 200 mg/dL in a nonstressed, ambulatory subject supports the diagnosis of Diabetes Mellitus.Performed By: #### GLULS #### Point of Care testing ,Basic Metabolic Panelon 52-14-9517Rsuyf gap [Moles/Vol]11.6 mmol/LNormal 6.0-15.0The [facility] Physician GroupComment on above:Performed By: #### MG, CMP, CBC #### [facility] [address] [place] [address] USACalcium [Mass/Vol]8.6 mg/dLNormal8.6-10.3The [facility] Physician GroupComment on above:Performed By: #### MG, CMP, CBC #### [facility] [address] [place] [address] USAChloride [Moles/Vol]94 mmol/YJlh45-150Uqk [facility] Physician GroupComment on above:Performed By: #### MG, CMP, CBC #### [facility] [address] [place] [address] USACO2 [Moles/Vol]33.6 mmol/LHigh21.0-31.0The [facility] Physician GroupComment on above:Performed By: #### MG, CMP, CBC #### [facility] [address] [place] [id number] USACreatinine [Mass/Vol]0.89 mg/dLNormal0.70-1.30The [facility] Physician GroupComment on above:Performed By: #### MG, CMP, CBC #### [facility] [address] [place] [id number] USACreatinine Clr Calc Gxrrotpw651.42NormMarymount Hospitale [facility] Physician GroupComment on above:Performed By: #### MG, CMP, CBC #### [facility] [address] [place] [address] USAGFR/1.73 sq M.predicted MDRD (S/P/Bld) [Vol rate/Area] mL/min/{1.73_m2}NormalThe [facility] Physician GroupComment on above:Performed By: #### MG CMP, CBC #### [facility] [address] [place] [address] USAGlucose [Mass/Vol]214 mg/tEVrjq92-159Nld [facility] Physician GroupComment on above:Result Comment: Random Glucose Reference Range is dependent on time and content of last meal. Glucose of more than 200 mg/dL in a nonstressed, ambulatory subject supports the diagnosis of Diabetes Mellitus. ADA recommended reference rangePerformed By: #### MG CMP, CBC #### [facility] [address] [place] [address] USAPotassium [Moles/Vol]4.2 mmol/LNormal3.5-5.1The [facility] Physician GroupComment on above:Performed By: #### MG CMP, CBC #### [facility] [address] [place] [address] USASodium [Moles/Vol]135 mmol/LSignificant change bjbc356-478 The [facility] Physician GroupComment on above:Performed By: #### MG CMP, CBC #### [facility] [address] [place] [address] USAUrea nitrogen [Mass/Vol]15 mg/dLNormal7-25The [facility] Physician GroupComment on above:Performed By: #### MG CMP, CBC #### [facility] [address] [place] [address] USACalcium [Mass/volume] in Serum or PlasmaOrdered By: Gomez Sunshine on 28-16-0962Yvwcowz [Mass/Vol]Calcium [Mass/volume] in Serum or Plasma 8.6-10.3FPremier Health Atrium Medical CenterCarbon dioxide, total [Moles/volume] in Serum or PlasmaOrdered By: Gomez Sunshine on 76-78-0813GH4 [Moles/Vol]Carbon dioxide, total [Moles/volume] in Serum or YdpcypWufj09.0-31.0[facility] HospitalChloride [Moles/volume] in Serum or PlasmaOrdered By: Gomez Sunshine on 11-35-4297Ptnrmyyf [Moles/Vol]Chloride [Moles/volume] in Serum or IyrakmXyl21-948ZvqbqsxvlMercy Health – The Jewish HospitalCreatinine [Mass/volume] in Serum or PlasmaOrdered By: Gomez Sunshine on 13-46-8916Iqmrcursbh [Mass/Vol] Creatinine [Mass/volume] in Serum or Plasma0.70-1.30[facility] HospitalGlucose Poct Glucometerson 65-25-0731Czahmcr0Vfz4: Cleaned MeterTGH Crystal River Physician GroupComment on above:Result Comment: PERFORMED BY: [place] [id number] PATHOLOGIST INSPECTOR HAIRSPRING WICHO EVERETT M.D.Performed By: #### MG, CMP, CBC #### [facility] [address] [place] [address] USAGlucose [Mass/Vol]227 mg/dLNoFormerly [facility] Physician GroupComment on above:Result Comment: Random Glucose Reference Range is dependent on time and content of last meal. Glucose of more than 200 mg/dL in a nonstressed, ambulatory subject supports the diagnosis of Diabetes Mellitus.Performed By: #### MG, CMP, CBC #### [place] [address] TSZOopcifc4Vdc3: Cleaned MeterTGH Crystal River Physician GroupComment on above:Result Comment: PERFORMED BY: [place] [address] PATHOLOGIST INSPECTOR HAIRSPRING WICHO EVERETT M.D.Performed By: #### MG, CMP, CBC #### [facility] [address] [place] [address] USAGlucose [Mass/Vol]276 mg/dLNoFormerly [facility] Physician GroupComment on above:Result Comment: Random Glucose Reference Range is dependent on time and content of last meal. Glucose of more than 200 mg/dL in a nonstressed, ambulatory subject supports the diagnosis of Diabetes Mellitus.Performed By: #### MG, CMP, CBC #### [facility] [address] [place] [address] USAGlucose [Mass/Vol]262 mg/dLTGH [facility] River Physician GroupComment on above:Result Comment: Random Glucose Reference Range is dependent on time and content of last meal. Glucose of more than 200 mg/dL in a nonstressed, ambulatory subject supports the diagnosis of Diabetes Mellitus. PERFORMED BY: [place] [id number] PATHOLOGIST INSPECTOR HAIRSPRING WICHO EVERETT M.D.Performed By: #### MG, CMP, CBC #### [facility] [address] [place] [address] HANFjwddvd1Wni4: Cleaned MeterNoFormerly [facility] Physician GroupComment on above:Result Comment: PERFORMED BY: [place] [address] PATHOLOGIST INSPECTOR HAIRSPRING WICHO EVERETT M.D.Performed By: #### GLULS #### Point of Care testing ,Glucose [Mass/Vol]224 mg/dLTGH Crystal River Physician GroupComment on above: Result Comment: Random Glucose Reference Range is dependent on time and content of last meal. Glucose of more than 200 mg/dL in a nonstressed, ambulatory subject supports the diagnosis of Diabetes Mellitus.Performed By: #### GLULS #### Point of Care testing ,Glucose [Mass/volume] in Serum or PlasmaOrdered By: Gomez Sunshine on 03-11-2024 Glucose [Mass/Vol]Glucose [Mass/volume] in Serum or UanaphTkmd00-532JpjgdqxibMercy Health – The Jewish HospitalComment on above:ADA recommended reference rangeRandom Glucose Reference Range is dependent on time and content of last meal. Glucose of more than 200 mg/dL in a nonstressed, ambulatory subject supports the diagnosisof Diabetes Mellitus.No Panel InformationOrdered By: Gomez Sunshine on 96-66-1984Odtdvuntp GFR (CKD-EPI)> 60.0 mL/MinMercy Health – The Jewish Hospital Pharmacy Creatinine Clearance (Tesw621.42[facility] Phosphate [Mass/volume] in Serum or PlasmaOrdered By: Gomez Sunhsine on 79-09-7858Npkvxpxai [Mass/Vol]Phosphate [Mass/volume] in Serum or Plasma2.5-4.5 [facility] Jewish HospitalPhosphoruson 12-17-8682Ygisoxqai [Mass/Vol]3.0 mg/dLNormal2.5-4.5The [facility] Physician GroupComment on above:Result Comment: PERFORMED BY: [facility] [address] [place] [address] PATHOLOGIST INSPECTOR HAIRSPRING WICHO EVERETT M.D.Performed By: #### MG, CMP, CBC #### [place] [address] USAPotassium [Moles/volume] in Serum or PlasmaOrdered By: Gomez Sunshine on 93-35-4346Tkibmxrzh [Moles/Vol]Potassium [Moles/volume] in Serum or Plasma3.5-5.1FUniversity Hospitals Samaritan Medical Centererum or plasma anion gap determinationOrdered By: Gomez Sunshine on 57-22-8036Gbizx gap [Moles/Vol]Serum or plasma anion gap determination6.0-15.0[facility] Hospitalodium [Moles/volume] in Serum or PlasmaOrdered By: Gomez Sunshine on 29-82-0165Kurshc [Moles/Vol]Sodium [Moles/volume] in Serum or PlasmaInvalid Interpretation Code 136-145[facility] Jewish HospitalComment on above:Delta: 129 on 03/10/24Urea nitrogen [Mass/volume] in Serum or PlasmaOrdered By: Gomez Sunshine on 30-55-7267Renp nitrogen [Mass/Vol]Urea nitrogen [Mass/volume] in Serum or Plasma09-28[facility] HospitalVancomycin [Mass/volume] in Serum or Plasma --troughOrdered By: Gomez Sunshine on 47-03-9700Btpwiszhxd trough [Mass/Vol]Serum or plasma trough vancomycin level10.0-20.0[facility] HospitalComment on above:Last dose: -Vancomycin,Troughon 03-11-2024 Vancomycin,Xnfiuw62.8 ug/aJCtrumb93.0-20.0[facility] Physician GroupComment on above:Order Comment: Time of next dose? 499 Date of last dose?: 20240310 Time of last dose?: 2099Result Comment: Last dose: - PERFORMED BY: [place] [id number] PATHOLOGIST INSPECTOR HAIRSPRING WICHO EVERETT M.D.Performed By: #### MG, CMP, CBC #### [facility] [address]Alanine aminotransferase [Enzymatic activity/volume] in Serum or PlasmaOrdered By: Gomez Sunshine on 23-75-4055NBJ [Catalytic activity/Vol]Alanine aminotransferase [Enzymatic activity/volume] in Serum or Plasma7[facility] HospitalAlbumin [Mass/volume] in Serum or Plasma by Bromocresol green (BCG) dye binding methoOrdered By: Gomez Sunshine on 58-16-6711Uhvgsuf BCG dye [Mass/Vol]Albumin [Mass/volume] in Serum or Plasma by Bromocresol green (BCG) dye binding methoLow3.5-5.7FPremier Health Atrium Medical CenterAlkaline phosphatase [Enzymatic activity/volume] in Serum or PlasmaOrdered By: Gomez Sunshine on 89-87-6227ZRQ [Catalytic activity/Vol]Alkaline phosphatase [Enzymatic activity/volume] in Serum or Kenoeu73-114HswmdwkrbMercy Health – The Jewish HospitalAppearance of UrineOrdered By: Gomez Sunshine on 27-14-4287Flwhimqqpj (U) Urine appearanceCleWilson HealthAspartate aminotransferase [Enzymatic activity/volume] in Serum or PlasmaOrdered By: Gomez Sunshine on 12-79-8833RIM [Catalytic activity/Vol]Aspartate aminotransferase [Enzymatic activity/volume] in Serum or Yiabgk12-20GieggjyydMercy Health – [facility] Hospital Bacteria [Presence] in Urine by AutomatedOrdered By: Gomez Sunshine on 03-10-2024 Bacteria Auto Ql (U)Bacteria [Presence] in Urine by AutomatedNone SeenMercy Health – The Jewish HospitalBasophils Auto (Bld) [#/Vol]Ordered By: Gomez Sunshine on 24-67-2202Xjclxhkjx (Bld) [#/Vol]Automated basophil count0.0-0.2FPremier Health Atrium Medical CenterBasophils/100 WBC Auto (Bld)Ordered By: Gomez Sunshine on 13-06-7852Enrutxfjg/100 WBC (Bld)Automated basophil %.[facility] HospitalBilirubin Test strip Ql (U)Ordered By: Gomez Sunshine on 03-10-2024 Bilirubin Ql (U)Bilirubin.total [Presence] in Urine by Test stripNegative [facility] HospitalBilirubin.total [Mass/volume] in Serum or PlasmaOrdered By: Gomez Sunshine on 55-96-3238Tywmnpcdl [Mass/Vol]Bilirubin.total [Mass/volume] in Serum or Plasma0.3-1.0[facility] HospitalColor Auto (U)Ordered By: Gomez Sunshine on 61-28-5254Nmrlt (U)Color of Urine by Auto YellowMercy Health – The Jewish HospitalComplete Blood Count Auto Diffon 68-49-4516Vptijyeys (Bld) [#/Vol]0.0 10*3/uLNormal0.0-0.2The [facility] Physician GroupComment on above:Result Comment: PERFORMED BY: [place] [id number] PATHOLOGIST INSPECTOR HAIRSPRING WICHO EVERETT M.D.Performed By: #### MG, CMP, CBC #### [facility] [address] [place] [address] USABasophils/100 WBC (Bld)0.2 %Normal.The [facility] Physician GroupComment on above:Performed By: #### MG, CMP, CBC #### [facility] [address] [place] [address] USAEosinophils (Bld) [#/Vol]0.1 10*3/uLNormal0.0-0.45The [facility] Physician GroupComment on above:Performed By: #### MG, CMP, CBC #### [facility] [address] [place] [address] USAEosinophils/100 WBC (Bld)0.6 %Normal.The [facility] Physician GroupComment on above:Performed By: #### MG, CMP, CBC #### [place] [address] USAErythrocyte distribution width (RBC) [Ratio]14.0 %Normal 12.0-14.8The [facility] Physician GroupComment on above:Performed By: #### MG, CMP, CBC #### [place] [address] USAHematocrit (Bld) [Volume fraction]31.1 %Low38.8-50.0[facility] Physician GroupComment on above:Performed By: #### MG, CMP, CBC #### [place] [address] USAHemoglobin (Bld) [Mass/Vol]10.6 g/dLLow13.0-17.0The [facility] Physician GroupComment on above:Performed By: #### MG, CMP, CBC #### [place] [address] USALymphocytes (Bld) [#/Vol]0.9 10*3/uLLow1.00-4.8The [facility] Physician GroupComment on above:Performed By: #### MG, CMP, CBC #### [place] [address] USALymphocytes/100 WBC (Bld)8.2 %Normal.The [facility] Physician GroupComment on above:Performed By: #### MG, CMP, CBC #### [place] [address] USAMCH (RBC) [Entitic mass]31.2 mjIocoop82.5-35.2The [facility] Physician GroupComment on above:Performed By: #### MG, CMP, CBC #### [place] [address] USAMCV (RBC) [Entitic vol]91.3 kKUzpzmo95.5-101The [facility] Physician GroupComment on above:Performed By: #### MG, CMP, CBC #### [address] [place] [address] USAMean Corpuscular HGB Conc34.2 g/hMHjvcky20.5-35.6The [facility] Physician GroupComment on above:Performed By: #### MG, CMP, CBC #### [place] [address] USAMonocytes (Bld) [#/Vol]0.9 10*3/uLHigh0.0-0.8The [facility] Physician GroupComment on above:Performed By: #### MG, CMP, CBC #### [place] [address] USAMonocytes/100 WBC (Bld)8.2 %Normal.The [facility] Physician GroupComment on above:Performed By: #### MG, CMP, CBC #### [place] [address] USANeutrophils (Bld) [#/Vol]8.7 10*3/uLHigh1.8-7.7The [facility] Physician GroupComment on above:Performed By: #### MG, CMP, CBC #### [place] [address] USANeutrophils/100 WBC (Bld)82.8 %Normal.The [facility] Physician GroupComment on above:Performed By: #### MG, CMP, CBC #### [place] [address] USANRBC%0.1 /100{WBC}Normal0-0.5The [facility]ician Group Comment on above:Performed By: #### MG, CMP, CBC #### [place] [address] USAPlatelet mean volume (Bld) [Entitic vol]8.1 fLNormal 6.6-10.1The [facility] Physician GroupComment on above:Performed By: #### MG, CMP, CBC #### [place] [address] USAPlatelets (Bld) [#/Vol]184 10*3/uGWszaco398-144Npt [facility] Physician GroupComment on above:Performed By: #### MG, CMP, CBC #### [place] [address] USARBC (Bld) [#/Vol]3.40 10*6/uLLow3.90-5.60The [facility] Physician GroupComment on above:Performed By: #### MG, CMP, CBC #### [place] [address] USAWBC (Bld) [#/Vol]10.5 10*3/uLNormal4.1-10.5The [facility] Physician GroupComment on above:Performed By: #### MG, CMP, CBC #### [place] [address] USAComprehensive Metabolic Panelon 57-43-8952Svbpcuq [Mass/Vol]3.2 g/dLLow3.5-5.7The [facility] Physician GroupComment on above: Performed By: #### MG, CMP, CBC #### [place] [address] USAAlbumin/Globulin [Mass ratio]1.0 {ratio}NormalThe [facility] Physician GroupComment on above:Performed By: #### MG, CMP, CBC #### [place] [address] USAALP [Catalytic activity/Vol]54 U/GTfwlpk48-690Zjc [facility] Physician GroupComment on above:Performed By: #### MG, CMP, CBC #### [place] [address] USAALT [Catalytic activity/Vol]36 U/LNormal7-52The [facility] Physician GroupComment on above:Performed By: #### MG, CMP, CBC #### [place] [address] USAAnion gap [Moles/Vol]8.0 mmol/LNormal6.0-15.0The [facility] Physician GroupComment on above:Performed By: #### MG, CMP, CBC #### [place] [address] USAAST [Catalytic activity/Vol]39 U/TGqlkzv89-75Hep [facility] Physician GroupComment on above:Performed By: #### MG, CMP, CBC #### [place] [address] USABilirubin [Mass/Vol]0.8 mg/dLNormal0.3-1.0The [facility] Physician GroupComment on above:Performed By: #### MG, CMP, CBC #### [place] [address] USACalcium [Mass/Vol]8.3 mg/dLLow8.6-10.3The [facility] Physician GroupComment on above:Performed By: #### MG, CMP, CBC #### [place] [address] USAChloride [Moles/Vol]94 mmol/ALqp04-325Ifm [facility] Physician GroupComment on above:Performed By: #### MG, CMP, CBC #### [place] [address] USACO2 [Moles/Vol]30.7 mmol/RVnknfm65.0-31.0The [facility] Physician GroupComment on above:Performed By: #### MG, CMP, CBC #### [place] [address] USACreatinine [Mass/Vol]0.82 mg/dLNormal0.70-1.30The [facility] Physician GroupComment on above:Performed By: #### MG, CMP, CBC #### [place] [address] USACreatinine Clr Calc Nwklxmyk337.70NormalThe [facility] Physician GroupComment on above:Performed By: #### MG, CMP, CBC #### [place] [address] USAGFR/1.73 sq M.predicted MDRD (S/P/Bld) [Vol rate/Area] mL/min/{1.73_m2}NormalThe [facility] Physician GroupComment on above:Performed By: #### MG, CMP, CBC #### [place] [id number] USAGlobulin (S) [Mass/Vol]3.1 g/dLNormalThe [facility] Physician GroupComment on above:Performed By: #### MG, CMP, CBC #### [place] [address] USAGlucose [Mass/Vol]222 mg/kTSfia68-987Kto [facility] Physician GroupComment on above:Result Comment: Random Glucose Reference Range is dependent on time and content of last meal. Glucose of more than 200 mg/dL in a nonstressed, ambulatory subject supports the diagnosis of Diabetes Mellitus. ADA recommended reference rangePerformed By: #### MG, CMP, CBC #### [place] [address] USAPotassium [Moles/Vol]3.7 mmol/LNormal3.5-5.1The [facility] Physician GroupComment on above:Performed By: #### MG, CMP, CBC #### [place] [address] USAProtein [Mass/Vol]6.3 g/dLLow6.4-8.9The [facility] Physician GroupComment on above:Performed By: #### MG, CMP, CBC #### [place] [address] USASodium [Moles/Vol]129 mmol/VNxh809-818Iud [facility] Physician GroupComment on above:Performed By: #### MG, CMP, CBC #### [place] [address] USAUrea nitrogen [Mass/Vol]15 mg/dLNormal7-25The [facility] Physician GroupComment on above:Performed By: #### MG, CMP, CBC #### [place] [address] USADipstick and Microscopicon 80-20-3387Rqxddeyrib (U)Clear NormalClearThe [facility] Physician GroupComment on above:Order Comment: Name Collection Type:: Clean-Voided MidstreamPerformed By: #### MG, CMP, CBC #### [place] [address] USABacteria,UrineRareNormalNone SeenJackson Memorial Hospital Physician GroupComment on above:Order Comment: Name Collection Type:: Clean-Voided MidstreamPerformed By: #### MG, CMP, CBC #### [facility] [address] [place] [address] USABilirubin,UrineNegativeNormalNegativeJackson Memorial Hospital Physician GroupComment on above:Order Comment: Name Collection Type:: Clean- Voided MidstreamPerformed By: #### MG, CMP, CBC #### [facility] [address] [place] [address] USAColor (U)YellowNormalYellowJackson Memorial Hospital Physician Group Comment on above:Order Comment: Name Collection Type:: Clean-Voided Midstream Performed By: #### MG, CMP, CBC #### [facility] [address] [place], [place] [id number] USAGlucose Ql (U)NormalNormalNormalThSt. Luke's [facility] Physician GroupComment on above:Order Comment: Name Collection Type:: Clean-Voided MidstreamPerformed By: #### MG, CMP, CBC #### [facility] [address] [place] [address] USAHyaline Casts,UrineNoneNormal0-8The [facility] Physician GroupComment on above:Order Comment: Name Collection Type:: Clean-Voided MidstreamPerformed By: #### MG, CMP, CBC #### [facility] [address] [place] [address] USAKetones Ql (U)NegativeNormalNegativeJackson Memorial Hospital Physician GroupComment on above:Order Comment: Name Collection Type:: Clean- Voided MidstreamPerformed By: #### MG, CMP, CBC #### [facility] [address] [place] [address] USALeukocyte esterase Test strip Ql (U)NegativeNormalNegative The [facility] Physician GroupComment on above:Order Comment: Name Collection Type:: Clean-Voided MidstreamPerformed By: #### MG, CMP, CBC #### [facility] [address] [place], [place] [id number] USAMucus,UrineRareNormalJackson Memorial Hospital Physician GroupComment on above:Order Comment: Name Collection Type:: Clean-Voided MidstreamResult Comment: PERFORMED BY: [place] [id number] PATHOLOGIST INSPECTOR HAIRSPRING WICHO EVERETT M.D.Performed By: #### MG, CMP, CBC #### [place] [address] USANitrite,UrineNegativeNormalNegativeThe [facility] Physician GroupComment on above:Order Comment: Name Collection Type:: Clean-Voided MidstreamPerformed By: #### MG, CMP, CBC #### [place] [address] USAOccult Blood,Urine1+HighNegativeThe [facility] Physician GroupComment on above:Order Comment: Name Collection Type:: Clean-Voided MidstreamResult Comment: PERFORMED BY: [place] [id number] PATHOLOGIST INSPECTOR HAIRSPRING WICHO EVERETT M.D.Performed By: #### MG, CMP, CBC #### [place] [address] USApH (U)6.0 [pH]Normal5.0-9.0The [facility]ician Group Comment on above:Order Comment: Name Collection Type:: Clean-Voided Midstream Performed By: #### MG, CMP, CBC #### [place] [address] USAProtein (U) [Mass/Vol]50 mg/dLHighNegativeThe [facility] Physician GroupComment on above:Order Comment: Name Collection Type:: Clean- Voided MidstreamPerformed By: #### MG, CMP, CBC #### [place] [address] USARBC,Urine1 [HPF]Normal0-4The [facility]ician Group Comment on above:Order Comment: Name Collection Type:: Clean-Voided Midstream Performed By: #### MG, CMP, CBC #### [place] [address] USASpecificy Dora,Urine1.169Uufk2.001-1.030The [facility] Physician GroupComment on above:Order Comment: Name Collection Type:: Clean- Voided MidstreamPerformed By: #### MG, CMP, CBC #### [facility] [address] [place] [address] USASquamous Epithelial Cell,Urine1 [HPF]Normal0-2The [facility] Physician GroupComment on above:Order Comment: Name Collection Type:: Clean-Voided MidstreamPerformed By: #### MG, CMP, CBC #### [facility] [address] [place] [address] USAUrobilinogen,UrineNormalNormalNormalThe [facility] Physician GroupComment on above:Order Comment: Name Collection Type:: Clean- Voided MidstreamPerformed By: #### MG, CMP, CBC #### [facility] [address] [place] [address] USAWBC,Urine5 [HPF]High0-4The [facility] Comment on above:Order Comment: Name Collection Type:: Clean-Voided Midstream Performed By: #### MG, CMP, CBC #### [facility] [address] [place] [address] USAEosinophils Auto (Bld) [#/Vol]Ordered By: Gomez Sunshine on 03-67-1640Vphdsnmtbzy (Bld) [#/Vol]Automated eosinophil count0.0-0.45[facility] HospitalEosinophils/100 WBC Auto (Bld)Ordered By: Gomez Sunshine on 36-07-2616Hihlkgqepze/100 WBC (Bld)Automated eosinophil %.[facility] HospitalEpithelial cells.squamous [#/area] in Urine sediment by Automated countOrdered By: Gomez Sunshine on 29-63-0008Krasdydnvl cells.squamous Auto (Urine sed) [#/Area]Epithelial cells.squamous [#/area] in Urine sediment by Automated count0-2FPremier Health Atrium Medical CenterErythrocyte distribution width Auto (RBC) [Ratio]Ordered By: Gomez Sunshine on 10-47-2147Cgxbgvetsvo distribution width (RBC) [Ratio]Erythrocyte distribution width [Ratio] by Automated count12.0-14.8[facility] HospitalErythrocytes [#/area] in Urine sediment by Automated countOrdered By: Gomez Sunshine on 16-75-8812KSH Auto (Urine sed) [#/Area]Erythrocytes [#/area] in Urine sediment by Automated count0-4FPremier Health Atrium Medical CenterGlobulin Calc (S) [Mass/Vol]Ordered By: Gomez Sunshine on 89-33-4539Csvvtbhq (S) [Mass/Vol]Serum globulin measurement by calculation (mass/volume)[facility] HospitalGlucose Poct Glucometerson 93-79-9619Ugegxkt [Mass/Vol]267 mg/dLNoFormerly [facility] Physician GroupComment on above:Result Comment: Random Glucose Reference Range is dependent on time and content of last meal. Glucose of more than 200 mg/dL in a nonstressed, ambulatory subject supports the diagnosis of Diabetes Mellitus. PERFORMED BY: [place] [id number] PATHOLOGIST INSPECTOR HAIRSPRING WICHO EVERETT M.D.Performed By: #### GLULS #### Point of Care testing ,Vatcyea8Lex8: Cleaned MeterNoFormerly [facility] Physician GroupComment on above: Result Comment: PERFORMED BY: [place] [id number] PATHOLOGIST INSPECTOR HAIRSPRING WICHO EVERETT M.D.Performed By: #### MG, CMP, CBC #### [facility] [address] [place] [address] USAGlucose [Mass/Vol]232 mg/dLNoFormerly [facility] Physician GroupComment on above:Result Comment: Random Glucose Reference Range is dependent on time and content of last meal. Glucose of more than 200 mg/dL in a nonstressed, ambulatory subject supports the diagnosis of Diabetes Mellitus.Performed By: #### MG, CMP, CBC #### [facility] [address] [place] [address] USAGlucose [Mass/Vol]259 mg/dLNoFormerly [facility] Physician GroupComment on above:Result Comment: Random Glucose Reference Range is dependent on time and content of last meal. Glucose of more than 200 mg/dL in a nonstressed, ambulatory subject supports the diagnosis of Diabetes Mellitus. PERFORMED BY: [facility] [address] [place] [id number] PATHOLOGIST INSPECTOR HAIRSPRING WICHO EVERETT M.D.Performed By: #### GLULS #### Point of Care testing ,Glucose [Mass/Vol]240 mg/dLTGH Crystal River Physician GroupComment on above: Result Comment: Random Glucose Reference Range is dependent on time and content of last meal. Glucose of more than 200 mg/dL in a nonstressed, ambulatory subject supports the diagnosis of Diabetes Mellitus. PERFORMED BY: [facility] [address] [place] [address] PATHOLOGIST INSPECTOR HAIRSPRING WICHO EVERETT M.D.Performed By: #### MG, CMP, CBC #### [place] [address] USAGlucose [Mass/volume] in Urine by Test stripOrdered By: Gomez Sunshine on 65-88-9730Vzyukqn Test strip (U) [Mass/Vol]Glucose [Mass/volume] in Urine by Test stripNormalMercy Health – [facility] Hospital Hematocrit Auto (Bld) [Volume fraction]Ordered By: Gomez Sunshine on 03-10-2024 Hematocrit (Bld) [Volume fraction]Hematocrit [Volume Fraction] of Blood by Automated dxkuiGcj07.8-50.0[facility] HospitalHemoglobin Test strip Ql (U)Ordered By: Gomez Sunshine on 00-70-5929Uprxybcqyb Ql (U)Hemoglobin [Presence] in Urine by Test stripHighNegativeMercy Health – [facility] Hospital Hemoglobin [Mass/volume] in BloodOrdered By: Gomez Sunshine on 03-10-2024 Hemoglobin (Bld) [Mass/Vol]Hemoglobin [Mass/volume] in OhitqWwi70.0-17.0 [facility] HospitalHyaline casts [#/area] in Urine sediment by Automated countOrdered By: Gomez Sunshine on 26-26-8745Pixtliu casts Auto (Urine sed) [#/Area]Hyaline casts [#/area] in Urine sediment by Automated count0-8 [facility] HospitalKetones Test strip Ql (U)Ordered By: Gomez Sunshine on 04-93-0621Xmrmuhj Ql (U)Ketones [Presence] in Urine by Test strip NegativeMercy Health – The Jewish HospitalLeukocyte esterase [Presence] in Urine by Test stripOrdered By: Gomez Sunshine on 57-48-3698Mcfxbbchq esterase Test strip Ql (U)Leukocyte esterase [Presence] in Urine by Test stripNegative [facility] HospitalLeukocytes [#/area] in Urine sediment by Automated countOrdered By: Gomez Sunshine on 88-87-1374VTS Auto (Urine sed) [#/Area]Leukocytes [#/area] in Urine sediment by Automated countHigh0-4FPremier Health Atrium Medical CenterLeukocytes [#/volume] corrected for nucleated erythrocytes in Blood by Automated counOrdered By: Gomez Sunshine on 03-10-2024 WBC corrected for nucl RBC Auto (Bld) [#/Vol]Leukocytes [#/volume] corrected for nucleated erythrocytes in Blood by Automated coun4.1-10.5FPremier Health Atrium Medical CenterLymphocytes Auto (Bld) [#/Vol]Ordered By: Gomez Snushine on 26-04-4160Vogxizuykjj (Bld) [#/Vol]Lymphocytes [#/volume] in Blood by Automated countLow1.00-4.8[facility] HospitalLymphocytes/100 WBC Auto (Bld) Ordered By: Gomez Sunshine on 02-76-4750Vdwzdbvygkp/100 WBC (Bld)Lymphocytes/100 leukocytes in Blood by Automated count.[facility] HospitalMCH Auto (RBC) [Entitic mass]Ordered By: Gomez Sunshine on 59-94-9678VAK (RBC) [Entitic mass]MCH [Entitic mass] by Automated count27.5-35.2FPremier Health Atrium Medical CenterMCHC Auto (RBC) [Mass/Vol]Ordered By: Gomez Sunshine on 12-57-7297IOJQ (RBC) [Mass/Vol]MCHC [Mass/volume] by Automated count32.5-35.6FPremier Health Atrium Medical CenterMCV Auto (RBC) [Entitic vol]Ordered By: Gomez Sunshine on 03-11-2891VHY (RBC) [Entitic vol]MCV [Entitic volume] by Automated count83.5-101 [facility] HospitalMagnesiumon 56-84-5567Bapseojje [Mass/Vol]1.9 mg/dLNormal1.9-2.7The [facility] Physician GroupComment on above:Result Comment: PERFORMED BY: [facility] [address] [place] [address] PATHOLOGIST INSPECTOR HAIRSPRING WICHO EVERETT M.D.Performed By: #### MG, CMP, CBC #### [place] [address] USAMagnesium [Mass/volume] in Serum or PlasmaOrdered By: Gomez Guan on 03-06-1518Gzjyhtrmz [Mass/Vol]Magnesium [Mass/volume] in Serum or Plasma1.9-2.7FPremier Health Atrium Medical CenterMonocytes Auto (Bld) [#/Vol] Ordered By: Gomez Sunshine on 92-04-4593Hxvkqlsxi (Bld) [#/Vol]Automated blood monocyte countHigh0.0-0.8[facility] HospitalMonocytes/100 WBC Auto (Bld)Ordered By: Gomez Sunshine on 70-53-4810Ibuttirmb/100 WBC (Bld)Automated monocyte %.[facility] HospitalMucus [Presence] in Urine by AutomatedOrdered By: Gomez Sunshine on 85-89-8904Xzwao Auto Ql (U)Mucus [Presence] in Urine by AutomatedMercy Health – The Jewish HospitalNeutrophils Auto (Bld) [#/Vol]Ordered By: Gomez Sunshine on 29-09-8413Xvuboolgdoi (Bld) [#/Vol]Neutrophils [#/volume] in Blood by Automated countHigh1.8-7.7FPremier Health Atrium Medical CenterNeutrophils/100 WBC Auto (Bld)Ordered By: Gomez Guan on 65-90-8072Hmdvlkxkubs/100 WBC (Bld)Automated neutrophil %.[facility] HospitalNitrite Test strip Ql (U)Ordered By: Gomez Sunshine on 03-10-2024 Nitrite Ql (U)Nitrite [Presence] in Urine by Test stripNegativeMercy Health – The Jewish HospitalNucleated erythrocytes [Presence] in Blood by Automated countOrdered By: Gomez Sunshine on 67-26-3997Kbkkrjyjv RBC Auto Ql (Bld)Nucleated erythrocytes [Presence] in Blood by Automated count0-0.5FPremier Health Atrium Medical CenterPlatelet mean volume Auto (Bld) [Entitic vol]Ordered By: Gomez Sunshine on 08-77-0887Gegmgewa mean volume (Bld) [Entitic vol]Platelet mean volume [Entitic volume] in Blood by Automated count6.6-10.1FPremier Health Atrium Medical CenterPlatelets Auto (Bld) [#/Vol]Ordered By: Gomez Sunshine on 42-93-3243Mragoohjj (Bld) [#/Vol]Platelets [#/volume] in Blood by Automated -125IauweletyMercy Health – The Jewish HospitalProtein Test strip (U) [Mass/Vol] Ordered By: Gomez Sunshine on 48-92-4495Mflfxdu (U) [Mass/Vol]Protein [Mass/volume] in Urine by Test stripHighNegWilson Memorial HospitalProtein [Mass/volume] in Serum or PlasmaOrdered By: Gomez Sunshine on 48-72-1304Adhjofw [Mass/Vol]Protein [Mass/volume] in Serum or PlasmaLow6.4-8.9 [facility] HospitalRBC Auto (Bld) [#/Vol]Ordered By: Gomez Sunshine on 26-16-7338OSJ (Bld) [#/Vol]Erythrocytes [#/volume] in Blood by Automated countLow3.90-5.60Sheltering Arms Hospitalerum or plasma albumin/globulin mass ratioOrdered By: Gomez Sunshine on 03-10-2024 Albumin/Globulin [Mass ratio]Serum or plasma albumin/globulin mass ratio [facility] Hospitalpecific gravity Test strip (U) [Rel density] Ordered By: Gomez Sunshine on 90-10-8479Jzxyyftm gravity (U) [Rel density] Specific gravity of Urine by Test stripHigh1.001-1.030[facility] HospitalUrobilinogen Test strip (U) [Mass/Vol]Ordered By: Gomez Sunshine on 67-33-8753Rbggntuexzrz (U) [Mass/Vol]Urobilinogen [Mass/volume] in Urine by Test stripNoalMercy Health – The Jewish HospitalVancomycin [Mass/volume] in Serum or Plasma --peakOrdered By: Gomez Sunshine on 06-13-3060Ivlmnqpmjf peak [Mass/Vol]Vancomycin [Mass/volume] in Serum or Plasma --peak20.0-40.0[facility] HospitalComment on above:Last dose: -Vancomycin,Peakon 03-10-2024 Vancomycin,Peak22.6 ug/uGNytrjc07.0-40.0The [facility] Physician GroupComment on above:Order Comment: Comment ?DRAW 1 HOUR AFTER INFUSION COMPLETES Date of last dose?: 20240310 Time of last dose?: 2099Result Comment: Last dose: - PERFORMED BY: [address] [id number] PATHOLOGIST INSPECTOR HAIRSPRING WICHO EVERETT M.D.Performed By: #### GLULS #### Point of Care testing ,WBC Auto (Bld) [#/Vol]Ordered By: Gomez Sunshine on 96-03-1930HJO (Bld) [#/Vol] Leukocytes [#/volume] in Blood by Automated count4.1-10.5FPremier Health Atrium Medical CenterpH Test strip (U)Ordered By: Gomez Sunshine on 40-55-0292eP (U)pH of Urine by Test strip5.0-9.0[facility] HospitalA1C with Estimated Average Gluon 27-87-4351Xhhowbn [Mass/Vol]192 mg/dLNoalThSt. Luke's El[facility] Center Physician GroupComment on above:Result Comment: PERFORMED BY: [address] [address] PATHOLOGIST INSPECTOR HAIRSPRING WICHO EVERETT M.D.Performed By: #### MG, CMP, CBC #### [facility] [address] [place] [address] LOFWwA4d (Bld) [Mass fraction]8.3 %High4.3-5.6The [facility] Physician GroupComment on above:Result Comment: Increased risk for diabetes: 5.7 - 6.4 diabetes: >6.4 glycemic control for adults with diabetes: <7.0Performed By: #### MG, CMP, CBC #### [facility] [address] [place] [address] USABasic Metabolic Panelon 50-78-6326Kgaed gap [Moles/Vol] 10.8 mmol/LNormal6.0-15.0The [facility] Physician GroupComment on above:Performed By: #### MG, CMP, CBC #### [facility] [address] [place] [address] USACalcium [Mass/Vol]8.4 mg/dLLow8.6-10.3The [facility] Physician GroupComment on above:Performed By: #### MG, CMP, CBC #### [facility] [address] [place] [address] USAChloride [Moles/Vol]94 mmol/BGmg90-900Nfj [facility] Physician GroupComment on above:Performed By: #### MG, CMP, CBC #### [facility] [address] [place] [address] USACO2 [Moles/Vol]29.4 mmol/KPsuxij14.0-31.0The [facility] Physician GroupComment on above:Performed By: #### MG, CMP, CBC #### [facility] [address] [place] [address] USACreatinine [Mass/Vol]0.84 mg/dLNormal0.70-1.30The [facility] Physician GroupComment on above:Performed By: #### MG, CMP, CBC #### [facility] [address] [place] [address] USACreatinine Clr Calc Ecrkhjvq426.63NormalThe [facility] Physician GroupComment on above:Performed By: #### MG, CMP, CBC #### [facility] [address] [place] [address] USAGFR/1.73 sq M.predicted MDRD (S/P/Bld) [Vol rate/Area] mL/min/{1.73_m2}NormalThe [facility] Physician GroupComment on above:Performed By: #### MG, CMP, CBC #### [facility] [address] [place] [address] USAGlucose [Mass/Vol]185 mg/iGKkke34-697Gsf [facility] Physician GroupComment on above:Result Comment: Random Glucose Reference Range is dependent on time and content of last meal. Glucose of more than 200 mg/dL in a nonstressed, ambulatory subject supports the diagnosis of Diabetes Mellitus. ADA recommended reference rangePerformed By: #### MG, CMP, CBC #### [facility] [address] [place] [address] USAPotassium [Moles/Vol]3.2 mmol/LLow3.5-5.1The [facility] Physician GroupComment on above:Performed By: #### MG, CMP, CBC #### [facility] [address] [place] [address] USASodium [Moles/Vol]131 mmol/HHlf659-693Mbn [facility] Physician GroupComment on above:Performed By: #### MG, CMP, CBC #### [facility] [address] [place] [address] USAUrea nitrogen [Mass/Vol]15 mg/dLNormal7-25The [facility] Physician GroupComment on above:Performed By: #### MG, CMP, CBC #### [facility] [address] [place] [address] USAAnion gap [Moles/Vol]11.4 mmol/LNormal6.0-15.0The [facility] Physician GroupComment on above:Performed By: #### MG, CMP, CBC #### [facility] [address] [place] [address] USACalcium [Mass/Vol]8.4 mg/dLLow8.6-10.3The [facility] Physician GroupComment on above:Performed By: #### MG, CMP, CBC #### [facility] [address] [place] [address] USAChloride [Moles/Vol]94 mmol/QAao53-780Kjs [facility] Physician GroupComment on above:Performed By: #### MG, CMP, CBC #### [place] [address] USACO2 [Moles/Vol]29.2 mmol/ZEcotlr98.0-31.0The [facility] Physician GroupComment on above:Performed By: #### MG, CMP, CBC #### [place] [address] USACreatinine [Mass/Vol]0.86 mg/dLNormal0.70-1.30The [facility] Physician GroupComment on above:Performed By: #### MG, CMP, CBC #### [place] [address] USACreatinine Clr Calc Ilbwfqto429.76NormalThe [facility] Physician [facility] CenterComment on above:Result Comment: PERFORMED BY: [place] [id number] PATHOLOGIST INSPECTOR HAIRSPRING WICHO EVERETT M.D.Performed By: #### MG, CMP, CBC #### [place] [address] USAGFR/1.73 sq M.predicted MDRD (S/P/Bld) [Vol rate/Area] mL/min/{1.73_m2}NormalThe [facility] Physician [facility] CenterComment on above:Performed By: #### MG, CMP, CBC #### [place] [address] USAGlucose [Mass/Vol]196 mg/tGInjg38-845Tmj [facility] Physician GroupComment on above:Result Comment: Random Glucose Reference Range is dependent on time and content of last meal. Glucose of more than 200 mg/dL in a nonstressed, ambulatory subject supports the diagnosis of Diabetes Mellitus. ADA recommended reference rangePerformed By: #### MG, CMP, CBC #### [place] [address] USAPotassium [Moles/Vol]3.6 mmol/LNormal3.5-5.1The [facility] Physician GroupComment on above:Result Comment: Hemolysis is present at a level that could interfere with the result. Contact lab if redraw is requiredPerformed By: #### MG, CMP, CBC #### [facility] [address] [place] [address] USASodium [Moles/Vol]131 mmol/DLme212-288Njj [facility] Physician GroupComment on above:Performed By: #### MG, CMP, CBC #### [facility] [address] [place] [address] USAUrea nitrogen [Mass/Vol]16 mg/dLNormal7-25The [facility] Physician GroupComment on above:Performed By: #### MG, CMP, CBC #### [facility] [address] [place] [address] USABlood Cultureon 18-34-8117Lmzsgeze identified Cx Nom (Bld) NO GROWTH 5 DAYS PERFORMED BY: [place] [id number] PATHOLOGIST INSPECTOR HAIRSPRING WICHO EVERETT M.D.NormalThe [facility] Physician GroupComment on above: Performed By: #### MG, CMP, CBC #### [place] [address] USABacteria identified Cx Nom (Bld)NO GROWTH 5 DAYS PERFORMED BY: [place] [id number] PATHOLOGIST INSPECTOR HAIRSPRING WICHO EVERETT M.D.[facility] Physician [facility]idential CenterComment on above: Performed By: #### MG, CMP, CBC #### [facility] [address] [place] [address] USABlood estimated average glucose determination by estimation from glycated hemoglobinOrdered By: Yecenia Meléndez on 48-23-2936Aphaxmk glucose Estimated from glycated hemoglobin (Bld) [Mass/Vol]Glucose mean value [Mass/volume] in Blood Estimated from glycated hemoglobinMercy Health – The Jewish HospitalC reactive protein [Mass/volume] in Serum or PlasmaOrdered By: Yecenia Meléndez on 38-78-7579RFZ [Mass/Vol]C reactive protein [Mass/volume] in Serum or PlasmaHigh0.0-0.5FPremier Health Atrium Medical CenterC-Reactive Proteinon 38-34-5448D-Reactive Rrcrgjx56.1 mg/dLHigh0.0-0.5The [facility] Physician Group Comment on above:Result Comment: PERFORMED BY: [place] [id number] PATHOLOGIST INSPECTOR HAIRSPRING WICHO EVERETT M.D.Performed By: #### MG, CMP, CBC #### [place] [address] USACT lower leg LT w conon 12-33-0885GQ lower leg LT w con [facility] [place] [address] [place], [place] [id number] CT Scan Report Signed Patient: Juan Bean JR MR#: [id number] : 1965 Acct:[id number] Age/Sex: 59 / M ADM Date: 03/08/24 Loc: Room: [address] [place] [address] Type: ADM IN Attending Dr: Gomez Sunshine MD Copies to: Gomez Sunshine MD Ordering Provider: Gomez Sunshine MD Date of Service: 03/09/24 CT/CT lower leg LT w con: deep tissue abscess CT lower leg LT w con 03/09/2024 1:28 PM SIGNS AND SYMPTOMS: Tenderness and redness from left knee to left ankle with bulging in the pretibial soft tissues, leukocytosis, rule out abscess TECHNIQUE: Multidetector CT axial slices of the left lower leg with IV contrast. Multiplanar reformats were performed and viewed on a separate workstation and reviewed to further define anatomy and possible pathology. CT was performed with one or more of the following dose reduction techniques: Automated exposure control, adjustment of the mA and/or kV according to patient size, or use of iterative reconstruction technique. CONTRAST: 90 mL of intravenous Isovue-300 COMPARISON: None. FINDINGS: There is a healing transverse aortic fracture of the mid body of the navicular with periosteal new bone incorporation. There is enthesophyte formation along the lateral margin of the navicular and cuneiforms. The tibiotalar joint space is preserved. No osteolytic or bony destructive process is noted. There is diffuse soft tissue swelling. There is a focal area of soft tissue swelling involving the cutaneous soft tissues of the anterior/lateral aspect of the mid haines which may represent a cutaneous abscess or sebaceous cyst. No peripherally enhancing subcutaneous abscess. Vascular calcifications are noted in the popliteal artery, anterior tibial artery, and posterior tibial artery. CT/CT lower leg LT w con IMPRESSION: No osteolytic or bony destructive process is noted. No peripherally enhancing subcutaneous abscess. There is a focal area of soft tissue swelling involving the cutaneous soft tissues of the anterior/lateral aspect of the mid haines which may represent a cutaneous abscess or sebaceous cyst. There is diffuse soft tissue edema suggesting cellulitis. Impression dictated by: Tyrese Coon M.D.03/09/2024 7:51 PM Dictation Location: [place] [address] Transcribed By: [facility] 03/09/241950 Dictated By: Tyrese Coon II, MD 03/09/241943 Signed By: 03/09/241950NoFormerly [facility] Physician [facility] CenterComplete Blood Count Auto Diffon 01-42-7453Gvjoqdhun (Bld) [#/Vol]0.1 10*3/uLNormal0.0-0.2The [facility] Physician GroupComment on above:Performed By: #### MG, CMP, CBC #### [facility] [address] [place] [address] USABasophils/100 WBC (Bld)0.5 %Normal.The [facility] Physician GroupComment on above:Performed By: #### MG, CMP, CBC #### [facility] [address] [place] [address] USAEosinophils (Bld) [#/Vol]0.0 10*3/uLNormal0.0-0.45The [facility] Physician GroupComment on above:Performed By: #### MG, CMP, CBC #### [facility] [address] [place] [address] USAEosinophils/100 WBC (Bld)0.0 %Normal.The [facility] Physician GroupComment on above:Performed By: #### MG, CMP, CBC #### [facility] [address] [place] [address] USAErythrocyte distribution width (RBC) [Ratio]14.0 %Normal 12.0-14.8The [facility] Physician GroupComment on above:Performed By: #### MG, CMP, CBC #### [place] [address] USAHematocrit (Bld) [Volume fraction]33.6 %Low38.8-50.0The [facility] Physician GroupComment on above:Performed By: #### MG, CMP, CBC #### [place] [address] USAHemoglobin (Bld) [Mass/Vol]11.4 g/dLLow13.0-17.0The [facility] Physician GroupComment on above:Performed By: #### MG, CMP, CBC #### [place] [address] USALymphocytes (Bld) [#/Vol]0.8 10*3/uLLow1.00-4.8The [facility] Physician GroupComment on above:Performed By: #### MG, CMP, CBC #### [place] [address] USALymphocytes/100 WBC (Bld)5.7 %Normal.The [facility] Physician GroupComment on above:Performed By: #### MG, CMP, CBC #### [place] [address] USAMCH (RBC) [Entitic mass]31.0 jrYighpk07.5-35.2The [facility] Physician GroupComment on above:Performed By: #### MG, CMP, CBC #### [place] [address] USAMCV (RBC) [Entitic vol]91.5 rXDijrdu22.5-101The [facility] Physician GroupComment on above:Performed By: #### MG, CMP, CBC #### [place] [address] USAMean Corpuscular HGB Conc33.8 g/kORsqipp80.5-35.6The [facility] Physician GroupComment on above:Performed By: #### MG, CMP, CBC #### [address] [address] USAMonocytes (Bld) [#/Vol]0.6 10*3/uLNormal0.0-0.8The [facility] Physician GroupComment on above:Performed By: #### MG, CMP, CBC #### [facility] [address] [place] [address] USAMonocytes/100 WBC (Bld)4.5 %Normal.The [facility] Physician GroupComment on above:Performed By: #### MG, CMP, CBC #### [facility] [address] [place] [address] USANeutrophils (Bld) [#/Vol]12.4 10*3/uLHigh1.8-7.7The [facility] Physician GroupComment on above:Performed By: #### MG, CMP, CBC #### [place] [address] USANeutrophils/100 WBC (Bld)89.3 %Normal.The [facility] Physician GroupComment on above:Performed By: #### MG, CMP, CBC #### [facility] [address] [place] [address] USANRBC%0.3 /100{WBC}Normal0-0.5The [facility] Physician Group Comment on above:Performed By: #### MG, CMP, CBC #### [facility] [address] [place] [address] USAPlatelet mean volume (Bld) [Entitic vol]8.0 fLNormal 6.6-10.1The [facility] Physician GroupComment on above:Performed By: #### MG, CMP, CBC #### [facility] [address] [place] [address] USAPlatelets (Bld) [#/Vol]196 10*3/vGPvipsk425-990Who [facility] Physician GroupComment on above:Performed By: #### MG, CMP, CBC #### [facility] [address] [place] [address] USARBC (Bld) [#/Vol]3.67 10*6/uLLow3.90-5.60The [facility] Physician GroupComment on above:Performed By: #### MG, CMP, CBC #### [facility] [address] [place] [address] USAWBC (Bld) [#/Vol]13.9 10*3/uLHigh4.1-10.5The [facility] Physician GroupComment on above:Performed By: #### MG, CMP, CBC #### [facility] [address] [place] [id number] USAErythrocyte Sedimentation Rateon 11-51-3346GQU (Bld) [Velocity]67 mm/hHigh0-19The [facility] Physician GroupComment on above:Result Comment: PERFORMED BY: [place] [id number] PATHOLOGIST INSPECTOR HAIRSPRING WICHO EVERETT M.D.Performed By: #### MG, CMP, CBC #### [facility] [address] [place] [address] USAErythrocyte sedimentation rate by Photometric method Ordered By: Yecenia Meléndez on 87-91-9481PCD Photometric method (Bld) [Velocity] Erythrocyte sedimentation rate by Photometric methodHigh0-19[facility] HospitalGlucose Poct Glucometerson 51-81-3919Vefeodp [Mass/Vol]212 mg/dL NormalThe [facility] Physician GroupComment on above:Result Comment: Random Glucose Reference Range is dependent on time and content of last meal. Glucose of more than 200 mg/dL in a nonstressed, ambulatory subject supports the diagnosis of Diabetes Mellitus. PERFORMED BY: [place] [id number] PATHOLOGIST INSPECTOR HAIRSPRING WICHO EVERETT M.D.Performed By: #### GLULS #### Point of Care testing ,Glucose [Mass/Vol]328 mg/dLNormalThe [facility] Physician GroupComment on above: Result Comment: Random Glucose Reference Range is dependent on time and content of last meal. Glucose of more than 200 mg/dL in a nonstressed, ambulatory subject supports the diagnosis of Diabetes Mellitus. PERFORMED BY: [place] [id number] PATHOLOGIST INSPECTOR HAIRSPRING WICHO EVERETT M.D.Performed By: #### GLULS #### Point of Care testing ,Glucose [Mass/Vol]240 mg/dLNoFormerly [facility] Physician GroupComment on above: Result Comment: Random Glucose Reference Range is dependent on time and content of last meal. Glucose of more than 200 mg/dL in a nonstressed, ambulatory subject supports the diagnosis of Diabetes Mellitus. PERFORMED BY: [place] [id number] PATHOLOGIST INSPECTOR HAIRSPRING WICHO EVERETT M.D.Performed By: #### MG, CMP, CBC #### [place] [address] USAGlucose [Mass/Vol]242 mg/dLNoFormerly [facility] Physician GroupComment on above:Result Comment: Random Glucose Reference Range is dependent on time and content of last meal. Glucose of more than 200 mg/dL in a nonstressed, ambulatory subject supports the diagnosis of Diabetes Mellitus. PERFORMED BY: [place] [id number] PATHOLOGIST INSPECTOR HAIRSPRING WICHO EVERETT M.D.Performed By: #### GLULS #### Point of Care testing ,Hemoglobin A1c/Hemoglobin.total in BloodOrdered By: Yecenia Meléndez on 03-09-2024 HbA1c (Bld) [Mass fraction]Hemoglobin A1c percentageHigh4.3-5.6FPremier Health Atrium Medical CenterComment on above:Increased risk for diabetes: 5.7 - 6.4diabetes: >6.4glycemic control for adults with diabetes: <7.0INR in Platelet poor plasma by Coagulation assayOrdered By: Yecenia Meléndez on 03-09-2024 INR Coag (PPP) [Relative time]INR in Platelet poor plasma by Coagulation assay [facility] HospitalComment on above:INR Therapeutic Range A) Pre- and Peroperative OAT started two weeks before surgery. NOT HIP SURGERY: 1.5 - 2.5 HIP SURGERY: 2 - 3B) Primary and secondary prevention of venous THROMBOSIS: 2 - 3C) Active venous thrombosis, pulmonary embolismand prevention of recurrent venous thrombosis: 2 - 3D) Prevention of arterial thromboembolismincluding patients with mechanical heart valves: 3 - 4.5Laboratory - Microbiology and Antimicrobial susceptibilityOrdered By: Yecenia Meléndez on 66-06-6431Fizqeufb identified Cx Nom (Bld)NO GROWTH 5 DAYSMercy Health – The Jewish HospitalBacteria identified Cx Nom (Bld)NO GROWTH 5 DAYSMercy Health – The Jewish Hospital Magnesiumon 35-14-8157Qkbxgqdws [Mass/Vol]1.4 mg/dLLow1.9-2.7The [facility] Physician GroupComment on above:Performed By: #### MG, CMP, CBC #### [facility] [address] [place] [address] USAPartial Thromboplastin Timeon 38-53-8837iVYK Coag (Bld) [Time]36.5 uZmahvj49.1-36.5The [facility] Physician GroupComment on above:Result Comment: A hematocrit value greater than 55% may lead to inaccurate results in coagulation testing. Patients having hematocrit values >55% require a special collection tube for coagulation studies. Please contact the laboratory at [phone] for redraw instructions. PERFORMED BY: [address] [address] PATHOLOGIST INSPECTOR HAIRSPRING WICHO EVERETT M.D.Performed By: #### MG, CMP, CBC #### [address] [address] USAPhosphoruson 89-98-7038Jpqoyagcl [Mass/Vol]1.9 mg/dLLow 2.5-4.5The [facility] Physician GroupComment on above:Order Comment: Comment Please add to AM labsResult Comment: PERFORMED BY: [address] [id number] PATHOLOGIST INSPECTOR HAIRSPRING WICHO EVERETT M.D.Performed By: #### MG, CMP, CBC #### [place] [id number] USAProthrombin Time INRon 79-83-3025GQE Coag (PPP) [Relative time]1.2 {INR}NormalThe [facility] Physician GroupComment on above:Result Comment: INR Therapeutic Range A) Pre- and Peroperative OAT started two weeks before surgery. NOT HIP SURGERY: 1.5 - 2.5 HIP SURGERY: 2 - 3 B) Primary and secondary prevention of venous THROMBOSIS: 2 - 3 C) Active venous thrombosis, pulmonary embolism and prevention of recurrent venous thrombosis: 2 - 3 D) Prevention of arterial thromboembolism including patients with mechanical heart valves: 3 - 4.5Performed By: #### MG, CMP, CBC #### [facility] [address] [place] [address] USAPT Coag (PPP) [Time]14.3 sHigh9.0-12.9The [facility] Physician GroupComment on above:Result Comment: A hematocrit value greater than 55% may lead to inaccurate results in coagulation testing. Patients having hematocrit values >55% require a special collection tube for coagulation studies. Please contact the laboratory at [phone] for redraw instructions.Performed By: #### MG, CMP, CBC #### [facility] [address] [place] [address] USAProthrombin time (PT)Ordered By: Yecenia Meléndez on 03-09-2024 PT Coag (PPP) [Time]Prothrombin time (PT)High9.0-12.9[facility] HospitalComment on above:A hematocrit value greater than 55% may lead to inaccurate results in coagulation testing. Patientshaving hematocrit values >55% require a special collection tube for coagulation studies. Please contact the laboratory at [phone] for redraw instructions.aPTT in Platelet poor plasma by Coagulation assayOrdered By: Yecenia Meléndez on 93-06-6453wVKD Coag (PPP) [Time] Activated partial thromboplastin time (aPTT) in platelet poor plasma by coagulation a25.1-36.5FPremier Health Atrium Medical CenterComment on above:A hematocrit value greater than 55% may lead to inaccurate results in coagulation testing. Patientshaving hematocrit values >55% require a special collection tube for coagulation studies. Please contact the laboratory at [phone] for redraw instructions.Blood Cultureon 69-80-4959Fixbvurg identified Cx Nom (Bld) Gram Stain Gram Positive Cocci in Chains ORGANISM: Strep dysgalactiae (O:STRDYS) Aerobic Miguel A Charge (Strep) SUSCEPTIBILITY ORGANISM: O:ALEX ANTIBIOTIC INTERPRETATION MIGUEL A Ampicillin S <0.06 Cefepime S <0.25 Ceftriaxone S <0.25 Erythromycin S <0.06 Levofloxacin S 1 Penicillin S <0.03 Vancomycin S 0.5 S = SUSCEPTIBLE I = INTERMEDIATE R = RESISTANT BLANK = DATA NOT AVAILABLE, OR DRUG NOT ADVISABLE OR TESTED R* = RESISTANCE DUE TO EXTENDED SPECTRUM BETA-LACTAMASES ESBL = EXTENDED SPECTRUM BETA-LACTAMASE TFG = THYMIDINE-DEPENDENT STRAIN RUDDY = BETA-LACTAMASE POSITIVE IB = INDUCIBLE BETA-LACTAMASE. APPEARS IN PLACE OF 'S' WITH SPECIES KNOWN TO POSSESS INDUCIBLE BETA-LACTAMASES. POTENTIALLY THEY MAY BECOME RESISTANT TO ALL B-LACTAM DRUGS. PERFORMED BY: [address] [place] [address] PATHOLOGIST INSPECTOR HAIRSPRING WICHO EVERETT M.D.[facility] Physician GroupComment on above: Performed By: #### GLULS #### Point of Care testing ,Bacteria identified Cx Nom (Bld)[employer] BCID Panel results called at 1601 on 03/08/24 Gram Stain Gram Negative Bacilli ORGANISM: Escherichia coli (O:ESCCOL) Aerobic MIGUEL A Charge (NMIC56) SUSCEPTIBILITY ORGANISM: O:ESCCOL ANTIBIOTIC INTERPRETATION MIGUEL A Amikacin S <16 Amoxacillin/K Clavulanate S <8 Ampicillin S <8 Ampicillin/Sulbactam S <4 Aztreonam S <4 Cefazolin S <2 Cefepime S <2 Ceftazidime S <1 Ceftazidime/Avibactam S <4 Ceftolozane/Tazobactam S <2 Ceftriaxone S <1 Cefuroxime S <4 Ciprofloxacin S <0.25 Ertapenem S <0.5 Gentamicin S <2 Levofloxacin S <0.5 Meropenem S <1 Meropenem/Vaborbactam S <2 Piperacillin/Tazobactam S <8 Tetracycline S <4 Tobramycin S <2 Trimethoprim/Sulfamethoxazole S <0.5 [facility] [employer] BCID Panel results called at 1601 on 03/08/24 Staphylococcus aureus DNA [Presence] by OLGA with non-probe detection in Positive blood culture Not detected Bacteroides fragilis DNA [Presence] by OLGA with non-probe detection in Positive blood culture Not detected Margaret auris DNA [Presence] by OLGA with non-probe detection in Positive blood culture Not detected Margaret albicans DNA [Presence] by OLAG with non-probe detection in Positive blood culture Not detected Acinetobacter calcoaceticus-baumannii complex DNA [Presence] by OLGA with non- probe detection in Positive blood culture Not detected Cryptococcus neoformans or gattii 9002 Not detected Cephalosporin resistance blaCTX-M gene [Presence] by Molecular method Not detected Escherichia coli Detected Enterobacterales DNA [Presence] by OLGA with non-probe detection in Positive blood culture Detected Enterobacter cloacae complex DNA [Presence] by OLGA with non-probe detection in Positive blood culture Not detected Staphylococcus epidermidis DNA [Presence] by OLGA with non-probe detection in Positive blood culture Not detected Enterococcus faecalis DNA [Presence] by OLGA with non-probe detection in Positive blood culture Not detected Enterococcus faecium DNA [Presence] by OLGA with non-probe detection in Positive blood culture Not detected Margaret glabrata DNA [Presence] by OLGA with non-probe detection in Positive blood culture Not detected Haemophilus influenzae (reported as H flu) Not detected Carbapenem resistance blaIMP gene [Presence] by Molecular method Not detected Klebsiella aerogenes DNA [Presence] by OLGA with non-probe detection in Positive blood culture Not detected Klebsiella pneumoniae+Klebsiella variicola+Klebsiella quasipneumoniae DNA [Presence] by OLGA with non-probe detection in Positive blood culture Not detected Klebsiella oxytoca DNA [Presence] by OLGA with non-probe detection in Positive blood culture Not detected Carbapenem resistance blaKPC gene [Presence] by Molecular method Not detected Amrgaret krusei DNA [Presence] by OLGA with non-probe detection in Positive blood culture Not detected Listeria monocytogenes (reported as listeriosis) Not detected Staphylococcus lugdunensis DNA [Presence] by OLGA with non-probe detection in Positive blood culture Not detected Methicillin resistance mecA+mecC genes+SCCmec+OrfX junction [Presence] by Molecular method Not Applicable Carbapenem resistance blaNDM gene [Presence] by Molecular method Not detected Neisseria meningitidis - reported as meningococcal disease Not detected Carbapenem resistance margarita OXA-48-like gene [Presence] by Molecular method Not detected Margaret parapsilosis DNA [Presence] by OLGA with non-probe detection in Positive blood culture Not detected Streptococcus pneumoniae - reported at ISP Not detected Proteus sp DNA [Presence] by OLGA with non-probe detection in Positive blood culture Not detected Pseudomonas aeruginosa DNA [Presence] by OLGA with non-probe detection in Positive blood culture Not detected Salmonella sp DNA [Presence] by OLGA with non-probe detection in Positive blood culture Not detected Serratia marcescens DNA [Presence] by OLGA with non-probe detection in Positive blood culture Not detected Staphylococcus sp DNA [Presence] by OLGA with non-probe detection in Positive blood culture Not detected Stenotrophomonas maltophilia DNA [Presence] by OLGA with non-probe detection in Positive blood culture Not detected Group A (Streptococcus pyogenes) [id number] Not detected Group B Strep (Streptococcus agalactiae) Not detected Streptococcus sp DNA [Presence] by OLGA with non-probe detection in Positive blood culture Not detected Margaret tropicalis DNA [Presence] by OLGA with non-probe detection in Positive blood culture Not detected Vancomycin resistance Izabella + vanB genes [Presence] by Molecular method Not Applicable Carbapenem resistance blaVIM gene [Presence] by Molecular method Not detected Colistin resistance mcr-1 gene [Presence] by Molecular method Not detected Methicillin resistance mecA+mecC genes [Presence] in Isolate or Specimen by Molecular (more contentnot included)...NormalThe [facility] Comment on above:Performed By: #### GLULS #### Point of Care testing ,Laboratory - Microbiology and Antimicrobial susceptibilityOrdered By: Mike Phelan on 97-93-8635Ncndhpcz identified Cx Nom (Bld)Escherichia coliAbnormal [facility] HospitalBacteria identified Cx Nom (Bld)Abnormal [facility] HospitalNo Panel InformationOrdered By: Mike Phelan on 66-97-5170Xvfsnqzua ID (NA Multiplex Assay)[facility] Bacterial ID (NA Multiplex Assay)[facility] HospitalLaboratory - Hematology and Cell countson 94-65-6432TtY7i (Bld) [Mass fraction]7.3 %NOMS HealthcareNo Panel Informationon 36-06-1262Ewwcauqjqvpvtk and review of laboratory resultsAbnormWellSpan Waynesboro HospitalNOIA HealthcarePre-Certification Formon 56-54-9783Vft-Certification Form [id number]#1.00CD:[address] [place], [place] [address]RAD - [place] Reporton 52-28-8484YJG - [place] Report [id number]#1.00CD:[address] [place], [place] [address]Consultation Noteon 20-24-2930Ufdfqdzgqrcv Note [id number]:[address] [place], [place] [address]CNPNon 09-23-1488JWTGQhllnuplw (UROLMN) JUAN BEAN ([id number]) 1965 M Date Time Provider Department 08/19/22 [...] 1 capsule by mouth twice daily. - lisinopril-hydroCHLOROthiazide (ZESTORETIC) 20-25 mg per tablet Take 1 [...] (HC*07/12/2022 Encounter Status:Closed by VÍCTOR ROSALES on 08/19/22NoC[facility] POSTPROC EVALon 65-84-4887WYIK POSTPROC EVALHNO ID: [id number] Author: Brennan Henley MD Service: ? Author Type: Anesthesiologist Type: Anesthesia Postprocedure Evaluation Filed: 08/13/2022 5:07 PM Note Text: POST ANESTHESIA EVALUATION NOTE : 1965 Procedure Summary Date: 08/13/22 Room / Location: [address] Anesthesia Start: 1448 Anesthesia Stop: 1632 Procedures: [...] August 13, 2022 TIME: 5:06 PM CSN: [id number] [facility]ty [facility] PRE-OPon 63-10-1098WPRH PRE-OPHNO ID: [id number] Author: Brennan Henley MD Service: ? Author Type: Anesthesiologist Type: Anesthesia Preprocedure Evaluation Filed: 08/13/2022 1:52 PM Note Text: ANESTHESIOLOGY DAY OF SURGERY NOTE : 1965 Procedure Information Date/Time: 08/13/22 1310 Procedures: BIOPSY PENIS (Penis) EXCISION BENIGN LESION GENITALS 3.1 TO 4.0 CM (Penis) Location: [address] [facility] Surgeons: Víctor Rosales MD Estimated body mass [...] Garibay present: yes Lip Bite Test: I Microretrognathia/Micronagthia/Recessed Chin: No DENTAL Dental findings: missing tooth/teeth. Dentures, upper: complete. Additional exam findings: no II - ANESTHESIA PLAN ASA Score: 3 Anesthetic Plan: general Airway type: LMA NPO Status: adequate Beta Isiah Monitoring Plan Monitoring plan: standard ASA. Post Procedure Analgesic Plan Postoperative analgesic plan: multimodal analgesia. Informed Consent Anesthetic risks, benefits, alternatives, personnel and consent discussed: yes. Patient / Responsible Libertarian agrees to proceed: yes Patient / Surrogate [...] August 13, 2022 TIME: 1:51 PM CSN: [id number] Lake Joint [facility] OP NOTon 29-54-1814OBCYJ OP NOTHNO ID: [id number] Author: Vinh Montague MD Service: Urology Author Type: Resident Type: Brief Op Note Filed: 08/13/2022 4:03 PM Note Text: UROLOGY SERVICE BRIEF OPERATIVE NOTE LOG ID: [id number] Surgery/Procedure Date: 08/13/2022 Incision/Procedure Start Time: 3:30 PM Incision Close/Procedure End Time: 3:57 PM Patient Age: [age] year old Surgeon(s)/Proceduralist(s) and Donor Technician(s): Surgeon(s) and Role: * Víctor Rosales MD [...] August 13, 2022 TIME: 4:00 PM PAGER/CONTACT #:NormalSt. Francis Hospital ClevelandCNCOon 08-13-2022 CNCOLetter TextNormalCRiverview Health InstituteTORY PHYSICALon 08-13-2022 HISTORY PHYSICALHNO ID: [id number] Author: Hollis Lugo MD Service: Urology Author Type: Resident Type: HANDP Filed: 08/13/2022 12:31 PM Note Text: Attestation signed by Víctor Rosales MD at 08/13/2022 2:06 PM Discussed with resident, agree with plan Víctor Rosales M.D. Preoperative HANDP Chief complaint: Patient is here [...] Hollis Lugo MD, MS Urology PGY-2 Pager: [phone] After Hours [facility] Urology Service Pager: [phone]y Hospitals TriPoint [facility] Center PROGon 63-17-7445HJVQFFN PRODESIRAE ID: [id number] Author: Fany Dorado RN Service: ? 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 Bean M023-33, needs letter written not to work for at least one week. Thanks Fany [phone] This note was completed by: Fany NicolasMcCullough-Hyde Memorial Hospital ID: [id number] Author: Fany Dorado RN Service: ? Author Type: Registered Nurse Type: Nursing Progress Note Filed: 08/13/2022 7:10 PM Note Text: Nursing Progress Note Topic of Note: Incidental Juan Pack Nunn [phone] Dr. Rosales text paged: . 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 Needs work excuse if can't go to work. Please call [phone]. Fany This note was completed by: Fany NicolasMcCullough-Hyde [facility] Hospital ID: [id number] Author: Fany Dorado RN Service: ? Author Type: Registered Nurse Type: Nursing Progress Note Filed: 08/13/2022 7:06 PM Note Text: Nursing Progress Note Topic of Note: Incidental Juan Pack Nunn [phone] Dr. Montague (urology surgical oncologist) text paged: good afternoon, . Bean M023-34, ? re: work, lifting, [place] [phone]? Thanks, Fany [phone] This note was completed by: Fany NicolasMcCullough-[facility] ID: [id number] Author: Fany Dorado RN Service: ? Author [...] (RECOMMENDATION): None Electronically Signed By: Fany Dorado RNNoUniversity Hospitals TriPoint Medical Center LIN ID: [id number] Author: Marisel Jones, ОЛЕГ Service: Nursing Author Type: Registered Nurse Type: Nursing Progress Note Filed: 08/13/2022 12:06 PM Note Text: Other: SDS Nursing Note Dr. Henley, anesthesia, paged M23-38, OR 21, [facility], [facility] patient's pre-op blood sugar is 197. Held PO diabetic meds per pre-op instructions. Thanks, Karla [phone] Urology resident paged [phone]) for updated HANDP. M23-38, OR 21 - [facility], Patient's HANDP needs updated, > 30 days. Thanks, Karla Manzanares Normal Children'S Hospital Of ColumbusOPERATIVE NOon [id number] NOHNO ID: [id number] Author: Víctor Rosales MD Service: Urology Author Type: Physician Type: Operative Report Filed: 08/16/2022 9:36 AM Note Text: UROLOGY OPERATIVE REPORT LOG ID: [id number] Surgery/Procedure Date: 08/13/2022 Incision/Procedure Start Time: 3:30 PM Incision Close/Procedure End Time: 3:57 PM Surgeon(s)/Proceduralist(s) and Donor Technician(s): Surgeon(s) and Role: * Víctor Rosales MD [...] A glans traction suture was placed to coremaker helper in exposure of the penis. Exam [...] performed the procedure with (more content not included)...NormalOhioHealth Doctors HospitalGICAL PATHOLOGYon 84-46-4518VKLR REPORTNormalCProtestant Deaconess HospitalComment on above:Order Comment: Specimen Type: TISSUE SPECIMENOrdering Facility: [facility] Address: [address] [place], [place] [address]RENATO CAMACHO, S[address]Result Comment: Surgical Pathology Report Case: [id number] Authorizing Provider: Víctor Rosales MD Collected: 08/13/2022 03:33 PM Ordering Location: Admitting Received: 08/13/2022 04:30 PM Pathologist: Nazia Dunne MD Specimens: A) - PENIS BIOPSY, distal ventral penile lesion B) - PENIS BIOPSY, left dorsal glans penis C) - PENIS BIOPSY, dorsal distal penile skinPerformed By: #### S ####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 LABIA [id number] [address] DIAGNOSISNormCleveland Clinic Akron General Lodi HospitalComment on above:Order Comment: Specimen Type: TISSUE SPECIMENOrdering Facility: [facility] Address: [address] [place], [place] [address]Result Comment: A. Distal ventral penile lesion, excision: -Lichen sclerosus. -Skin with ulceration, acute and chronic inflammation and reactive changes. -Negative for malignancy. B. Left dorsal glans penis, biopsy: -Lichen sclerosus. -Negative for malignancy. C. Distal dorsal penile skin, biopsy: -Benign skin with acute and chronic inflammation. Performed By: #### S ####[facility] LABIA [id number] [address] PERFORMING LABNormal Children'S Hospital Of ColumbusComment on above:Order Comment: Specimen Type: TISSUE SPECIMENOrdering Facility: [facility] Address: [address] [place], [place] [address]Result Comment: Diagnostic interpretation performed at [facility], [address] [id number] CLIA# [id number] Respiratory Technician: Antonio Peters M.D.Performed By: #### S ####[facility] LABCLIA [id number] [place] [address] [place] OF AMERICAGROSS DESCRIPTIONA. PENIS BIOPSYNormalCProtestant Deaconess HospitalComment on above:Order Comment: Specimen Type: TISSUE SPECIMENOrdering Facility: [facility] Address: [address] [address]Result Comment: Received in formalin labeled as distal ventral penile lesion is an elliptical segment of possible briceno-mcgill, wrinkled unoriented skin measuring 1.7 x 0.9 x 0.5 cm. The margin is completely inked black. A mcgill, nodular area is identified measuring 0.6 x 0.5 cm, extending 0.3 cm abovethe possible skin surface. The specimen is bisected [...] 2022 1:19 PM Gross examination performed at [facility], [facility] [place], [place] [address]Performed By: #### S ####[facility] LABIA [id number] [place] [id number] [place] CNPNon 22-78-8783CWEZWcttvqdct (UROLMN) JUAN BEAN ([id number]) 1965 M Date Time Provider Department 07/28/22 [...] Fully Assessed Reason for Visit: Patient Question [3587] Cmt: Patient call with Marco Antonio Michael NP to discuss pre op medications to hold. Prescriptions as of 07/28/2022 - lisinopril-hydroCHLOROthiazide (ZESTORETIC) 20-25 mg per tablet Take 1 [...] (HC*07/12/2022 Encounter Status:Closed by NEEMA ARIAS on 07/28/22NoMiami Valley Hospital 75-29-0959CUIQVtyrkghkd (UROLBE) JUAN BEAN ([id number]) 1965 M Date Time Provider Department 07/27/22 MARCO ANTONIO MICHAEL During your visit today, we recorded the following information about you: Marco Antonio Michael APRN.TIP INSERTER 07/27/2022 1:33 PM Signed ----- Message from [...] call him? He did get labwork locally Thanks, JOSE ANGEL ----- Message ----- From: Atiya Cotter Patient Service Spec Sent: 07/21/2022 11:32 AM EDT To: Neema Arias RN Subject: pre op instructions Spoke to Juan- he wants to know of any pre op instructions as far as fasting and/or stopping any medications. Please advise and thank you, Atiya Michael APRN.TIP INSERTER 07/27/2022 1:41 PM Signed Called Juan Bean. [...] questions at this time. Marco Antonio Michael, SHAHZAD.TIP INSERTER Allergies As of Date: 07/27/2022 (No Known Allergies) Date Reviewed: 07/12/2022 Reviewed by: ADELA Crandall - Fully Assessed Reason for Visit: Patient Question [1477] Prescriptions as of 07/27/2022 - lisinopril-hydroCHLOROthiazide (ZESTORETIC) 20-25 mg per tablet Take 1 [...] lisinopril (ZESTRIL) 20 mg tablet (Discontinued) - lisinopril-hydroCHLOROthiazide (ZESTORETIC) 20-25 mg per tablet (Discontinued) Encounter Status:Closed by MARCO ANTONIO MICHAEL on 07/27/22[facility] HospitalConsultation Noteon 93-25-2072Sthtvexdhjcs Note [id number]#1.00CD:127[facility] FoundationConsultation Noteon 29-11-6399Scadwzajtzyn Note [id number]#1.00CD:127[facility] FoundationCNOVon 02-72-3648UIVGCgupxu Visit (UROLMN) JUAN BEAN ([id number]) 1965 M Date Time Provider Department 07/12/22 8:30 AM VÍCTOR ROSALES During your visit today, we recorded the following information about you: Pulse Blood pressure Weight Height 92/minute 162/81 161.5 kg 1.854 m Víctor Rosales MD 07/12/2022 9:40 AM Signed [facility] NEW PATIENT HISTORY AND [...] for internal providers or letter via the [employer] for external providers. HISTORY CHIEF [...] Fellow Electronically signed = (more content not included)...NormalCleOhio Valley HospitalURINALYSIS, REFLEX MICROSCOPICon 75-47-9829Gyzscdhdz Ql (U)NegativeNormalNegativeCleBlanchard Valley Health System on above:Order Comment: Specimen Type: URINE SPECIMENOrdering Facility: [facility] Address:[address] [place] [address]Performed By: #### [id number] ####[facility] LABCLIA [id number] [place] [address] [place] AMERICAClarity (Unsp spec)ClearNormalClearCleOhio Valley Hospital Comment on above:Order Comment: Specimen Type: URINE SPECIMENOrdering Facility: [facility] Address:[address] [place], [place] [address] Performed By: #### [id number] ####[facility] LABCLIA [id number] [place] [address] [place] Color (U)Light YellowNormalYellowCleBlanchard Valley Health System on above: Order Comment: Specimen Type: URINE SPECIMENOrdering Facility: [facility] Address:[address] [place], [place] [address]Performed By: #### [id number] ####[facility] LABCLIA [id number] [place] [address] [place] AMERICAGlucose Test strip (U) [Mass/Vol]NegativeNormalTrace, NegativeChildren'S Hospital Of ColumbusComdeckerville community hospital on above:Order Comment: Specimen Type: URINE SPECIMENOrdering Facility: [facility] Address:[address] [place] [address]Performed By: #### [id number] ####[facility] LABCLIA [id number] [place] [address] [place] AMERICAHemoglobin Ql (U) NegativeNormalNegative, TraceGrant Hospital on above:Order Comment: Specimen Type: URINE SPECIMENOrdering Facility: [facility] Address:[address] [place] [address]Performed By: #### [id number] ####[facility] LABCLIA [id number] [place] [address] [place] AMERICAKetones Ql (U)Negative NormalNegative, TraceGrant Hospital on above:Order Comment: Specimen Type: URINE SPECIMENOrdering Facility: [facility] Address:[address] [place], [place] [address]Performed By: #### [id number] ####[facility] LABCLIA [id number] [place] [address] [place] [facility] HOSPITALLeukocyte esterase Test strip Ql (U)75 Doreen/uLAbnormalNegative, 25 Doreen/uLGrant Hospital on above:Order Comment: Specimen Type: URINE SPECIMENOrdering Facility: [facility] Address:[address] [place], [place] [address]Performed By: #### [id number] ####[facility] LABCLIA [id number] [place] [address] [place] AMERICANitrite Ql (U)Negative NormalNegativeGrant Hospital on above:Order Comment: Specimen Type: URINE SPECIMENOrdering Facility: [facility] Address:[address] [place], [place] [address]Performed By: #### [id number] ####[facility] LABCLIA [id number] [place] [address] [place] [facility] HOSPITALpH (U)5.5 [pH]Normal5.0-8.0[facility] on above:Order Comment: Specimen Type: URINE SPECIMENOrdering Facility: [facility] Address:[address] [place], [place] [address]Performed By: #### [id number] ####[facility] LABCLIA [id number] [place] [address] [place] Protein (U) [Mass/Vol]NegativeNormalTrace, NegativeChildren'S Hospital Of Columbus Comment on above:Order Comment: Specimen Type: URINE SPECIMENOrdering Facility: [facility] Address:[address] [place], [place] [address] Performed By: #### [id number] ####[facility] LABCLIA [id number] [place] [address] [place] Specific gravity (U) [Rel density]1.185Cmdkkv2.005-1.030[facility] HospitalvelandComment on above:Order Comment: Specimen Type: URINE SPECIMENOrdering Facility: [facility] Address:[address] [place], [place] [address]Performed By: #### [id number] ####[facility] LABCLIA [id number] [place] [address] [place] Urobilinogen Ql (U)NegativeNormalNegativeChildren'S Hospital Of ColumbusComdeckerville community hospital on above:Order Comment: Specimen Type: URINE SPECIMENOrdering Facility: [facility] Address:[address] [place], [place] [address]Performed By: #### [id number] ####[facility] LABIA [id number] [place] [address] [place] AMERICABilirubin Ql (U) NegativeNegativeSt. Francis HospitalClarity (Unsp spec)ClearClearCselect medical [facility] Color (U)Light YellowYellowCleAultman Orrville HospitalGlucose Test strip (U) [Mass/Vol] NegativeTrace, NegativeSt. Francis HospitalHemoglobin Ql (U)NegativeNegative, Trace St. Francis HospitalKetones Ql (U)NegativeNegative, TraceSt. Francis HospitalLeukocyte esterase Test strip Ql (U)75 Doreen/uLAbnormalNegative, 25 Doreen/uLOrange Clinic Nitrite Ql (U)NegativeNegativeSt. Francis HospitalpH (U)5.5 [pH]5.0 - 8.0Clekindred hospital lima ClinicProtein (U) [Mass/Vol]NegativeTrace, NegativeUniversity Hospitals St. John Medical Centerpecific gravity (U) [Rel density]1.0181.005 - 1.030St. Francis HospitalUrobilinogen Ql (U) NegativeNegativeSt. Francis HospitalPathology Noteon 23-72-6073Useluuthl Note [id number]#1.00CD:[address] [place], [place] [address]Alanine aminotransferase [Enzymatic activity/volume] in Serum or Plasma Ordered By: Silvio Yu on 77-44-1351DWD [Catalytic activity/Vol]20 U/L 7-52[facility] HospitalAlbumin [Mass/volume] in Serum or Plasma by Bromocresol green (BCG) dye binding methoOrdered By: Silvio Yu on 22-57-2857Ntjarmv BCG dye [Mass/Vol]4.5 g/dL3.5-5.7FPremier Health Atrium Medical CenterAlkaline phosphatase [Enzymatic activity/volume] in Serum or PlasmaOrdered By: Silvio Yu on 01-69-0098LTP [Catalytic activity/Vol]57 U/L34-104 [facility] HospitalAspartate aminotransferase [Enzymatic activity/volume] in Serum or PlasmaOrdered By: Silvio Yu on 06-30-2022 AST [Catalytic activity/Vol]17 U/E81-19NycwvaaycMercy Health – The Jewish Hospital Basophils Auto (Bld) [#/Vol]Ordered By: Silvio Yu on 18-64-6836Rlnetwmgt (Bld) [#/Vol]0.0 10*3/uL0.0-0.2FPremier Health Atrium Medical CenterBasophils/100 WBC Auto (Bld)Ordered By: Silvio Yu on 64-37-1358Jnkamxgmf/100 WBC (Bld) 0.2 %.[facility] HospitalBilirubin.total [Mass/volume] in Serum or PlasmaOrdered By: Silvio Yu 91-87-0616Dqosbkggx [Mass/Vol]0.7 mg/dL 0.3-1.0[facility] HospitalCalcium [Mass/volume] in Serum or Plasma Ordered By: Silvio Yu 53-87-9374Phposld [Mass/Vol]9.7 mg/dL8.6-10.3 [facility] HospitalCarbon dioxide, total [Moles/volume] in Serum or PlasmaOrdered By: Silvio Yu on 93-03-1501PO2 [Moles/Vol]29.5 mmol/L 21.0-31.0[facility] HospitalChloride [Moles/volume] in Serum or PlasmaOrdered By: Silvio Yu 20-42-3857Vwervohe [Moles/Vol]98 mmol/L 98-107[facility] HospitalCreatinine [Mass/volume] in Serum or PlasmaOrdered By: Silvio Yu on 75-24-2486Vpjbxuqqfw [Mass/Vol]0.85 mg/dL 0.70-1.30[facility] HospitalEosinophils Auto (Bld) [#/Vol]Ordered By: Silvio Yu on 61-48-5276Ueidcfsrsrp (Bld) [#/Vol]0.1 10*3/uL0.0-0.45 [facility] HospitalEosinophils/100 WBC Auto (Bld)Ordered By: Silvio Yu on 68-98-7011Lvlkqrfiutw/100 WBC (Bld)1.3 %.[facility] Jewish HospitalErythrocyte distribution width Auto (RBC) [Ratio]Ordered By: Silvio Yu on 87-36-7044Eiiwizoccpb distribution width (RBC) [Ratio]13.8 %12.0-14.8[facility] HospitalGlobulin Calc (S) [Mass/Vol]Ordered By: Silvio Yu on 43-62-4193Nuqpddpj (S) [Mass/Vol]3.1 g/dLMercy Health – The Jewish HospitalGlucose [Mass/volume] in Serum or PlasmaOrdered By: Silvio Yu on 38-40-2717Yiilfow [Mass/Vol]154 mg/yU08-393GobmodijoMercy Health – The Jewish HospitalComment on above:ADA recommended reference rangeRandom Glucose Reference Range is dependent on time and content of last meal. Glucose of more than 200 mg/dL in a nonstressed, ambulatory subject supports the diagnosisof Diabetes Mellitus.Hematocrit Auto (Bld) [Volume fraction]Ordered By: Silvio Yu on 47-42-3227Svdlboebkv (Bld) [Volume fraction]43.8 %38.8-50.0 [facility] HospitalHemoglobin [Mass/volume] in BloodOrdered By: Silvio Yu on 42-33-0656Jbpfsiukai (Bld) [Mass/Vol]14.7 g/dL13.0-17.0 [facility] HospitalLeukocytes [#/volume] corrected for nucleated erythrocytes in Blood by Automated counOrdered By: Silvio Yu on 95-63-0849WEN corrected for nucl RBC Auto (Bld) [#/Vol]8.5 10*3/uL4.1-10.5 [facility] HospitalLymphocytes Auto (Bld) [#/Vol]Ordered By: Silvio Yu on 91-96-9564Ubajuqvckqo (Bld) [#/Vol]1.3 10*3/uL1.00-4.8 [facility] HospitalLymphocytes/100 WBC Auto (Bld)Ordered By: Silvio Yu on 84-31-3865Yxramdswyor/100 WBC (Bld)15.0 %.[facility] Auto (RBC) [Entitic mass]Ordered By: Silvio Yu on 52-74-3694FZZ (RBC) [Entitic mass]30.4 pg27.5-35.2FPremier Health Atrium Medical CenterMCHC Auto (RBC) [Mass/Vol]Ordered By: Silvio Yu on 12-24-1919TIHM (RBC) [Mass/Vol]33.6 g/dL32.5-35.6FPremier Health Atrium Medical CenterMCV Auto (RBC) [Entitic vol]Ordered By: Silvio Yu on 42-26-3598TTM (RBC) [Entitic vol]90.6 fL83.5-101[facility] HospitalMonocytes Auto (Bld) [#/Vol]Ordered By: Silvio Yu on 78-92-2442Olvqsause (Bld) [#/Vol]0.7 10*3/uL0.0-0.8[facility] HospitalMonocytes/100 WBC Auto (Bld)Ordered By: Silvio Yu on 96-27-8194Krxaotwom/100 WBC (Bld)8.8 %. [facility] HospitalNeutrophils Auto (Bld) [#/Vol]Ordered By: Silvio Yu on 82-68-8801Bigcjvpfqmb (Bld) [#/Vol]6.3 10*3/uL1.8-7.7 [facility] HospitalNeutrophils/100 WBC Auto (Bld)Ordered By: Silvio Yu on 34-79-2017Virfarsgglb/100 WBC (Bld)74.7 %.[facility] HospitalNo Panel InformationOrdered By: Silvio Yu on 70-29-2268Bhvdjqaqf GFR (CKD-EPI)> 60.0 mL/MinMercy Health – The Jewish Hospital Pharmacy Creatinine Clearance (Lrrq978.44[facility] Nucleated erythrocytes [Presence] in Blood by Automated countOrdered By: Silvio Yu on 29-34-2637Ftcpdakgf RBC Auto Ql (Bld)0.1 /100{WBC}0-0.5FPremier Health Atrium Medical CenterPlatelet mean volume Auto (Bld) [Entitic vol]Ordered By: Silvio Yu on 97-12-7349Frqfvneq mean volume (Bld) [Entitic vol]8.3 fL 6.6-10.1FPremier Health Atrium Medical CenterPlatelets Auto (Bld) [#/Vol]Ordered By: Silvio Yu on 47-03-7849Kbksidpsd (Bld) [#/Vol]173 10*3/dH879-664 [facility] HospitalPotassium [Moles/volume] in Serum or Plasma Ordered By: Silvio Yu on 96-06-7622Gjieiwdno [Moles/Vol]4.1 mmol/L 3.5-5.1FPremier Health Atrium Medical CenterProtein [Mass/volume] in Serum or Plasma Ordered By: Silvio Yu on 77-14-7321Pbhpwrl [Mass/Vol]7.6 g/dL6.4-8.9 [facility] HospitalRBC Auto (Bld) [#/Vol]Ordered By: Silvio Yu on 27-82-5933OHF (Bld) [#/Vol]4.83 10*6/uL3.90-5.60[facility]tering Arms Hospitalerum or plasma albumin/globulin mass ratioOrdered By: Silvio Yu on 48-53-4777Giauynj/Globulin [Mass ratio]1.5 {ratio}[facility] Hospitalerum or plasma anion gap determinationOrdered By: Silvio Yu on 35-43-6307Cstxq gap [Moles/Vol]12.6 mmol/L6.0-15.0[facility] Hospitalerum or plasma carcinoembryonic antigen measurement (mass/volume)Ordered By: Silvio Yu on 80-26-9173Llxsxyytystmornt Ag [Mass/Vol]1.7 ng/mL0.0-3.0[facility] Hospitalodium [Moles/volume] in Serum or PlasmaOrdered By: Silvio Yu on 82-83-7840Thbzki [Moles/Vol] 136 mmol/M260-238VuyjsxmblMercy Health – The Jewish HospitalUrea nitrogen [Mass/volume] in Serum or PlasmaOrdered By: Silvio Yu on 18-98-3801Mylb nitrogen [Mass/Vol]20 mg/dL7-25[facility] HospitalWBC Auto (Bld) [#/Vol] Ordered By: Silvio Yu on 18-78-7689NRY (Bld) [#/Vol]8.5 10*3/uL4.1-10.5 [facility] HospitalPathology Noteon 67-30-1641Gjgdxcpar Note [id number]#1.00CD:[address] [place], [place] [address]Pathology Noteon 94-70-5459Zdnciogqf Note [id number]#1.00CD:[address] [place], [place] [address]Physician Referralon 39-83-8144Fdwaxdkcw Referral [id number]#1.00CD:[address] [place], [place] [address]Pathology Noteon 45-29-8636Dpniyshmg Note [id number]#1.00CD:[address] [place], [place] [address]URGICAL PATHOLOGY REFERENCE LAB CONSULTon 69-58-6473KYVP REPORTNormal [facility] on above:Order Comment: Specimen Type: SLIDEOrdering Facility: [facility] Address: [address] [place] [id number] Comment: Surgical Pathology Report Case: [id number] Authorizing Provider: Ritesh Calderon MD Collected: 06/23/2022 10:07 AM Ordering Location: [facility] Main Received: 06/23/2022 10:07 AM Pathologist: Shubham Pritchett MD, PhD Specimen: SLIDE(S), 3 SLIDES ([id number])Performed By: #### [id number] ####[facility] LABCLIA [id number] [address] STATES OF AMERICACLINICAL HISTORYCONSULT REQUESTEDNoClermont County Hospital on above:Order Comment: Specimen Type: SLIDEOrdering Facility: [facility] Address: [address] [place], [place] [address]Performed By: #### [id number] ####[facility] LABIA [id number] [address]ETDIAGNOSIS COMMENTRiverview Health Institute on above:Order Comment: Specimen Type: SLIDEOrdering Facility: [facility] Address: [address] [place], [place] [address]Result Comment: Many thanks for sending in consultation this excision specimen from the penis of a 57-year-old male. Histologic sections demonstrate a keratinocytic neoplasm composed of full- thickness keratinocyte dysplasia with invasive irregular islands of atypical keratinocytes. These islands demonstrate marked cellular atypia and mitotic activity. Enclosed immunohistochemical stains are reviewed at the [facility]. A Ki- 67 stain demonstrates an increased proliferative index amongst the lesional cells. A stain for p16 is diffusely positivein the dysplastic areas. These findings support the above diagnosis. Overall, I agree with Dr. 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 The squamous cell carcinoma involves the excision margins.Performed By: #### [id number] ####[facility] LABCLIA [id number] [address] STATES OF [facility] HOSPITALFINAL DIAGNOSISNoClermont County Hospital on above:Order Comment: Specimen Type: SLIDEOrdering Facility: [facility] Address: [address] [place], [place] [address] Result Comment: A. Skin, foreskin, circumcision ( [id number], 06/01/2022) : -Invasive moderately differentiated squamous cell carcinoma, see comment. AF/CK 06/23/2022 Performed By: #### [id number] ####[facility] LABCLIA [id number] [address] OF [facility] FINAL PERFORMING LABNormBellevue Hospital on above:Order Comment: Specimen Type: SLIDEOrdering Facility: [facility] Address: [address] [place] [phone] Comment: Diagnostic interpretation performed at [facility], [address] [place] [address] CLIA# [id number] Respiratory Technician: Antonio Peters M.D.Performed By: #### [id number] ####[facility] LABCLIA [id number] [address]Consultation Noteon 06-22-2022 Consultation [id number]#1.00CD:127Fort [facility] Hospitalcreenson 62-40-4199Ehgfkho [id number]#1.00CD:[address] [place], [place] [address]Patient Educationon 06-42-8461Nmubdyx EducationUrology Balanitis Balanitis is swelling and irritation (inflammation) [...] men. Not cleaning the glans penis and foreskinwell can result in buildup of bacteria, viruses, [...] worse, such as soaps and shower gels thathave fragrance. ? Take tmoy-qdv-wyehhol and prescription medicines only as told by [...] do not keep their glans penis clean andin men who have diabetes. ? Treatment may [...] 07/10/2009 Document Revised: 02/03/2018 (more content not included)...[facility] FoundationUrology Office/Clinic Noteon 91-33-4247Wiylcyg Office/Clinic NoteChief Complaint Pt is here for PO circumcision [...] (? CT or PET, etc) , and considerationfor other therapies. Follow-up With When Contact Information RHONDA PROCTOR, Timmy Howard, AMYL In 2 months 08/21/[address] [place] [id number]- Additional Instructions: Patient Education Ramona Christiansen , personally scribed for Dr. Santana on 06/21/2022 09:11:31. . Problem List/Past Medical History Ongoing Balanoposthitis Cancer of skin of penis Cholelithiasis Diabetes Diabetes mellitus Hyperlipidemia Hypertension Hypogonadism male Obesity Penile carcinoma Phimosis Historical No qualifying data Procedure/Surgical History Circumcision (05/31/2022), History of tonsillectomy (1969). Medications ergocalciferol 50,000 intl units Cap glimepiride 4 mg Tab hydrochlorothiazide-lisinopril 25 mg-20 mg Tab metformin 1000 mg [...] 2022-05-10: TPV50 influenza virus vaccine, inactivated 12/06/2016 RecordedCleveland Clinic FoundationComment on above:Result Comment: Electronically Signed By: Timmy SANTANA MD\.br\Date and Time Signed: 06/21/22 09:30 EDT\.br\Electronically Co-Signed By: Ramona Yost MA\.br\Date and Time Co-Signed: 06/21/22 09:11 EDT Pathology Noteon 76-69-6193Xvtbrefhg Note [id number]#1.00CD:[address] [place], [place] [address]Operative Reporton 65-40-4718Xpybskmxg Report [id number]#1.00CD:[address] [place], [place] [address]Consultation Noteon 46-40-3985Riofauckmxks Note [id number]#1.00CD:[address] [place], [place] [address]Consultation [id number]#1.00CD:[address] [place], [place] [address]Glucose Glucometer (BldC) [Mass/Vol]Ordered By: Timmy Santana on 02-56-6371Lfjlpsa [Mass/Vol]176 mg/dLMercy Health – The Jewish HospitalComment on above:Random Glucose Reference Range is dependent on time and content of last meal. Glucose of more than 200 mg/dL in a nonstressed, ambulatory subject supports the diagnosis of Diabetes Mellitus.Lab Reportson 19-04-1152Izx [id number]#1.00CD:127[facility] HospitalRAD - MISCon 96-69-4712FVS - MISC [id number]#1.00CD:127[facility] HospitalalFisher [facility]itus Medical CenterOffice Visit (Cardiology)on 75-65-7953Zockiz-up visitDiagnoses/Problems Assessed Hyperlipidemia (272.4) (E78.5) Hypertension (401.9) (I10) Diabetes (250.00) (E11.9) Right bundle branch block (RBBB) on electrocardiogram (ECG) (426.4) (I45.10) Preoperative cardiovascular examination (V72.81) (Z01.810) Morbid obesity with BMI of 45.0-49.9, adult (278.01,V85.42) (E66.01,Z68.42) Former smoker (V15.82) (Z87.891) quit 29+ years ago Orders Hypertension, Preoperative cardiovascular examination, Right bundle branch block (RBBB) on electrocardiogram (ECG) IO EKG Electrocardiogram- 12 Lead; Status:Complete; Done: 20Suv3291 Morbid obesity with BMI of 45.0-49.9, adult Healthy Weight Tips; Status:Complete - Retrospective Authorization; Done: 20May2022 Some eating tips that can help you lose weight.; Status:Complete - Retrospective Authorization; Done: 20May2022 SocHx: Former smoker Tobacco Use Screening; Status:Complete; Done: [id number] Patient Instructions Please bring all medicines, vitamins, [...] 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 Medications are reviewed and are appropriate for his comorbidities, he is slightly tachycardic and hypertensive today likely due to underlying anxiety in the office. His overall revised Mariusz criteria for presurgical assessment for major adverse cardiac events is lowat 0.6%. He can proceed without any further [...] MG Oral TabletTAKE 1 TABLET DAILY DIRECTED. Lisinopril-hydroCHLOROthiazide 20-25 MG Oral TabletTAKE 1 TABLET DAILY. [...] Bedtime as needed Vitamin D3 1.25 MG (58075 UT) Oral Capsuleone tablet weekly Allergies Medication [...] Vital Signs Recorded: 20May2022 11:13AMRecorded: 20May2022 11:12AM Cfkbagqb547, LUE, Btgtbat222, RUE, Sitting Zmcsjhpqw84, LUE, Jprfecn22, RUE, Sitting Heart Ra (more content not included)...NormalUH TouchworksTobacco Screening.on 04-23-1136Ygkjb depression screening assessmentNoMason General Hospital [employer] 250 DO Work Phone: Fall risk assessmentc) Not medically indicatedMason General Hospital [employer] 250 DO Work Phone: Tobacco use status CPHSb) NoMProvidence Sacred [facility] Medical Center [employer] 250 DO Work Phone: Activated partial thromboplastin time (aPTT) in platelet poor plasma by coagulation aOrdered By: Timmy Santana on 95-08-4600vQUD Coag (PPP) [Time]31.0 s25.1-36.5FPremier Health Atrium Medical CenterBasophils Auto (Bld) [#/Vol]Ordered By: Timmy Santana on 72-52-6846Sqrcjvipe (Bld) [#/Vol]0.0 10*3/uL0.0-0.2FPremier Health Atrium Medical CenterBasophils/100 WBC Auto (Bld) Ordered By: Timmy Santana on 17-15-5732Jmwznzjwq/100 WBC (Bld)0.6 %.[facility] HospitalCalcium [Mass/volume] in Serum or PlasmaOrdered By: Timmy Santana on 78-53-0317Yoobctw [Mass/Vol]9.5 mg/dL8.6-10.3FPremier Health Atrium Medical CenterCarbon dioxide, total [Moles/volume] in Serum or PlasmaOrdered By: Timmy Santana on 62-46-2434AT0 [Moles/Vol]27.9 mmol/L21.0-31.0[facility] HospitalChloride [Moles/volume] in Serum or PlasmaOrdered By: Timmy Santana on 66-20-6650Tqdifmow [Moles/Vol]98 mmol/L87-371CvtaivpyvMercy Health – The Jewish HospitalCreatinine [Mass/volume] in Serum or PlasmaOrdered By: Timmy Santana on 53-44-1705Yqxvxtprsw [Mass/Vol]0.75 mg/dL0.70-1.30[facility] Jewish HospitalEosinophils Auto (Bld) [#/Vol]Ordered By: Timmy Santana on 05-17-2022 Eosinophils (Bld) [#/Vol]0.1 10*3/uL0.0-0.45[facility] Eosinophils/100 WBC Auto (Bld)Ordered By: Timmy Santana on 05-17-2022 Eosinophils/100 WBC (Bld)1.2 %.[facility] Jewish HospitalErythrocyte distribution width Auto (RBC) [Ratio]Ordered By: Timmy Santana on 05-17-2022 Erythrocyte distribution width (RBC) [Ratio]13.8 %12.0-14.8[facility] HospitalGlucose [Mass/volume] in Serum or PlasmaOrdered By: Timmy Santana on 46-44-3629Lydkpse [Mass/Vol]172 mg/eL09-567KiukbdilvMercy Health – The Jewish Hospital Comment on above:ADA recommended reference rangeRandom Glucose Reference Range is dependent on time and content of last meal. Glucose of more than 200 mg/dL in a nonstressed, ambulatory subject supports the diagnosisof Diabetes Mellitus. Hematocrit Auto (Bld) [Volume fraction]Ordered By: Timmy Santana on 05-17-2022 Hematocrit (Bld) [Volume fraction]39.5 %38.8-50.0[facility] HospitalHemoglobin [Mass/volume] in BloodOrdered By: Timmy Santana on 05-17-2022 Hemoglobin (Bld) [Mass/Vol]13.7 g/dL13.0-17.0[facility] Laboratory - Chemistry and Chemistry - challengeOrdered By: Timmy Santana on 64-25-4686BFR/1.73 sq M.predicted MDRD (S/P/Bld) [Vol rate/Area]mL/min/{1.73_m2} [facility] HospitalLaboratory - CoagulationOrdered By: Timmy Santana on 85-70-5919UH Coag (PPP) [Time]11.9 s9.0-12.9[facility] Jewish HospitalLeukocytes [#/volume] corrected for nucleated erythrocytes in Blood by Automated counOrdered By: Timmy Santana on 44-70-9185BBK corrected for nucl RBC Auto (Bld) [#/Vol]7.9 10*3/uL4.1-10.5FPremier Health Atrium Medical Center Lymphocytes Auto (Bld) [#/Vol]Ordered By: Timmy Santana on 46-04-9461Tahockrnpyd (Bld) [#/Vol]1.1 10*3/uL1.00-4.8[facility] Jewish HospitalLymphocytes/100 WBC Auto (Bld)Ordered By: Timmy Santana on 75-89-6587Tjonoyqebif/100 WBC (Bld) 14.3 %.[facility] HospitalH Auto (RBC) [Entitic mass]Ordered By: Timmy Santana on 82-20-5151EJP (RBC) [Entitic mass]30.8 pg27.5-35.2FPremier Health Atrium Medical CenterMCHC Auto (RBC) [Mass/Vol]Ordered By: Timmy Santana on 45-36-7246FPRF (RBC) [Mass/Vol]34.5 g/dL32.5-35.6FPremier Health Atrium Medical CenterMCV Auto (RBC) [Entitic vol]Ordered By: Timmy Santana on 94-89-0615OYJ (RBC) [Entitic vol]89.2 fL83.5-101[facility] HospitalMonocytes Auto (Bld) [#/Vol]Ordered By: Timmy Santana on 94-85-0203Ohmctgsmw (Bld) [#/Vol] 0.6 10*3/uL0.0-0.8[facility] HospitalMonocytes/100 WBC Auto (Bld) Ordered By: Timmy Santana on 58-68-4234Zhqzatcwx/100 WBC (Bld)7.5 %.[facility] HospitalNeutrophils Auto (Bld) [#/Vol]Ordered By: Timmy Santana on 75-62-0815Amidjndsrms (Bld) [#/Vol]6.1 10*3/uL1.8-7.7FPremier Health Atrium Medical CenterNeutrophils/100 WBC Auto (Bld)Ordered By: Timmy Santana on 05-17-2022 Neutrophils/100 WBC (Bld)76.4 %.[facility] HospitalNo Panel InformationOrdered By: Timmy Santana on 43-25-3671Oprmvmpj Creatinine Clearance (ChemN/AFPremier Health Atrium Medical CenterNucleated erythrocytes [Presence] in Blood by Automated countOrdered By: Timmy Santana on 59-66-4425Xoexxqxet RBC Auto Ql (Bld)0.0 /100{WBC}0-0.5FPremier Health Atrium Medical CenterPlatelet mean volume Auto (Bld) [Entitic vol]Ordered By: Timmy Santana on 36-43-8096Johqayim mean volume (Bld) [Entitic vol]8.2 fL6.6-10.1FPremier Health Atrium Medical Center Platelet poor plasma international normalized ratio (INR) by coagulation assay (relatOrdered By: Timmy Santana on 53-02-0148GYB Coag (PPP) [Relative time]1.0 {INR}[facility] HospitalComment on above:INR Therapeutic Range A) Pre- and Peroperative OAT started two weeks before surgery. NOT HIP SURGERY: 1.5 - 2.5 HIP SURGERY: 2 - 3B) Primary and secondary prevention of venous THROMBOSIS: 2 - 3C) Active venous thrombosis, pulmonary embolismand prevention of recurrent venous thrombosis: 2 - 3D) Prevention of arterial thromboembolismincluding patients with mechanical heart valves: 3 - 4.5Platelets Auto (Bld) [#/Vol]Ordered By: Timmy Santana on 62-99-6264Wetmdexwd (Bld) [#/Vol] 174 10*3/dK125-571MofoanqjnMercy Health – The Jewish HospitalPotassium [Moles/volume] in Serum or PlasmaOrdered By: Timmy Santana on 02-06-7741Dhvvsvbag [Moles/Vol]3.9 mmol/L3.5-5.1FPremier Health Atrium Medical CenterRBC Auto (Bld) [#/Vol]Ordered By: Timmy Santana on 13-81-0738JDN (Bld) [#/Vol]4.43 10*6/uL3.90-5.60Sheltering Arms Hospitalerum or plasma anion gap determinationOrdered By: Timmy Santana on 39-41-7236Lsqjl gap [Moles/Vol]13.0 mmol/L6.0-15.0S[facility] Hospitalodium [Moles/volume] in Serum or PlasmaOrdered By: Timmy Santana on 67-16-5872Joelvu [Moles/Vol]135 mmol/F429-906XryemsietMercy Health – The Jewish HospitalUrea nitrogen [Mass/volume] in Serum or PlasmaOrdered By: Timmy Santana on 60-55-0783Racb nitrogen [Mass/Vol]16 mg/dL7-25[facility] HospitalWBC Auto (Bld) [#/Vol]Ordered By: Timmy Santana on 89-67-7808UUW (Bld) [#/Vol]7.9 10*3/uL4.1-10.5FPremier Health Atrium Medical CenterFormson 05-12-2022 [id number]#1.00CD:[address] [place], [place] [address]Physician Referralon 13-67-9062Rnyoymijr Referral [id number]#1.00CD:[address] [place], [place] [address]creenson 99-91-5020Ytgzdmo [id number]#1.00CD:[address] [place], [place] [address]Ambulatory Visit Summaryon 21-81-7701Ecjikomltz Visit Summary JUAN BEAN :1965 Visit Date:05/10/2022 Ambulatory Visit Instructions Your Diagnosis Phimosis Balanoposthitis Hypogonadism male Tests Performed Urnls Dip Stick Auto w/o Microscopy POC 34986 Your Care Team Attending Physician - RHONDA PROCTOR, Timmy Howard Primary Care Physician - MICHAEL PROCTOR, MANISH Coffman Referring Physician - CAROLYN THORNTON This Is Your Medications List Contact prescribing physician if questions or concerns Misc Prescription (metoprolol succinate ER 50 mg tablet,extended release 24 hr) ergocalciferol (ergocalciferol 50,000 intl units Cap) glimepiride (glimepiride 4 mg Tab) hydrochlorothiazide-lisinopril (hydrochlorothiazide-lisinopril 25 mg-20 mg Tab) metformin (metformin 1000 mg Tab) pioglitazone (pioglitazone 45 mg Tab) Procedures Performed History of tonsillectomy (1970). Discharge Vitals Heart Rate (Peripheral) 84 Respiratory Rate 70 Blood Pressure 146/85 Height 73 in Height 186 cm Weight 364.76 lb Weight 165.8 kg BMI 47.92 What to do next You Need to Schedule the Following Appointments Follow Up with RHONDA PROCTOR, ROSCOE Garcia When: Where: [facility] [place] [phone]- Medications What How Much When Instructions Unchanged ergocalciferol (ergocalciferol 50,000 intl units Cap) Contact prescribing physician if questions or concerns Unchanged glimepiride (glimepiride 4 mg Tab) Contact prescribing physician if questions or concerns Unchanged hydrochlorothiazide-lisinopril (hydrochlorothiazide-lisinopril 25 mg- 20 mg Tab) Contact prescribing physician if questions or concerns Unchanged metformin (metformin 1000 mg Tab) 1 Tablets Contact prescribing physician if questions orconcerns Unchanged Misc Prescription (metoprolol succinate ER 50 mg tablet,extended release 24 hr) 0 Contactprescribing physician if questions or concerns Unchanged pioglitazone (pioglitazone 45 mg Tab) Contact prescribing physician if questions or concerns Test Results Urnls Dip Stick Auto w/o Microscopy POC 21744 (05/10/2022) Bilirubin Urine Dipstick - Negative Blood Urine Dipstick - Trace-intact Glucose Urine Dipstick - Negative Ketones Urine Dipstick - Negative Leukocytes Urine Dipstick - Negative Nitrite Urine Dipstick - Negative Protein Urine Dipstick - Negative Specific Dora Urine Dipstick - 1.025 Urine Appearance Urine [...] or foreskin. ? Itc (more content not included)...[facility] Educationon 06-51-1448Xlusuru EducationUrology Balanitis Balanitis is swelling and irritation (inflammation) [...] men. Not cleaning the glans penis and foreskinwell can result in buildup of bacteria, viruses, [...] worse, such as soaps and shower gels thathave fragrance. ? Take oeal-shs-ktmagoc and prescription medicines only as told by [...] do not keep their glans penis clean andin men who have diabetes. ? Treatment may [...] 07/10/2009 Document Revised: 02/03/2018 (more content not included)...[facility] Vital Signs Date TimeVital SignValuePerforming WlcqjantkOoxlawab27-61-9853 15:20-0400 Diastolic blood wwhzveay915 mm[Hg]Carolyn Hemmer CHEMICAL PROCESSING TECHNICIAN-C Work Phone: [phone]10-09-2025 15:20-0400 Heart rate82 /minKaren Hemmer CHEMICAL PROCESSING TECHNICIAN-C Work Phone: [phone] [place], [place] [address]10-09-2025 15:20-0400 SaO2% (BldA) [Mass fraction]98 %Carolyn Hemmer CHEMICAL PROCESSING TECHNICIAN-C Work Phone: [phone] [place], [place] 3988610-09-2025 15:20-0400 Systolic blood olgiyoij427 mm[Hg]Carolyn Hemmer CHEMICAL PROCESSING TECHNICIAN-C Work Phone: [phone]10-02-2025 14:32-0400 Diastolic blood cmbxrgko270 mm[Hg]Carolyn Hemmer CHEMICAL PROCESSING TECHNICIAN-C Work Phone: [phone] [place], [place] 3988610-02-2025 14:32-0400 Heart rate89 /minKaren Hemmer CHEMICAL PROCESSING TECHNICIAN-C Work Phone: [phone] [place], [place] 3988610-02-2025 14:32-0400 SaO2% (BldA) [Mass fraction]92 %Carolyn Hemmer CHEMICAL PROCESSING TECHNICIAN-C Work Phone: [phone] [place], [place] 3988610-02-2025 14:32-0400 Systolic blood mm[Hg]Carolyn Hemmer CHEMICAL PROCESSING TECHNICIAN-C Work Phone: [phone] [place], [place] 3988609-08-2025 15:10-0400 Body vycrxv142.42 cmKaren Hemmer CHEMICAL PROCESSING TECHNICIAN-C Work Phone: [phone]09-08-2025 15:10-0400 Diastolic blood drdbholk66 mm[Hg]Carolyn Hemmer CHEMICAL PROCESSING TECHNICIAN-C Work Phone: [phone])[facility] [place], [place] [address]509-08-2025 15:10-0400 Heart rate81 /minKaren Hemmer CHEMICAL PROCESSING TECHNICIAN-C Work Phone: [phone] [place], [place] 3988609-08-2025 15:10-0400 SaO2% (BldA) [Mass fraction]93 %Carolyn Hemmer CHEMICAL PROCESSING TECHNICIAN-C Work Phone: 1(419)[address] [place], [place] 3988609-08-2025 15:10-0400 Systolic blood towbqzuv006 mm[Hg]Carolyn Hemmer CHEMICAL PROCESSING TECHNICIAN-C Work Phone: 1(973)[address] [place], [place] 3988608-25-2025 16:54-0400 Diastolic blood wcxqivlb80 mm[Hg]Carolyn Hemmer PA Work Phone: 1(741)[address] [place], [place] 4564808-25-2025 16:54-0400Systolic blood zctzvabc076 mm[Hg]Carolyn Hemmer PA Work Phone: 1(405)[facility] [place], [place] [address]Ccxlupsqlx28-61-8889 16:30-0400Body zwxilv797.4 cmKaren Hemmer PA Work Phone: 1(224)[address] [place], [place] 4564808-25-2025 16:30-0400Body mass index (BMI) [Ratio]54.22 kg/i7Jmnxy Hemmer PA Work Phone: 1(564)[address] [place], [place] 4564808-25-2025 16:30-0400Body yvymif632.43 kgKaren Hemmer PA Work Phone: 1(459)[address] [place], [place] 4564808-25-2025 16:30-0400Heart rate82 /min Carolyn Hemmer PA Work Phone: 1(649)[facility] [place], [place] [address]Micnckjmds66-04-2252 16:30-0400Respiratory rate16 /minKaren Hemmer PA Work Phone: 1(384)[facility]-[address] [place], [place] [address]Qqvtpbgmhp11-51-3881 16:30-5349DkI4% (BldA) [Mass fraction]96 %Carolyn Hemmer PA Work Phone: 1(884)[address] [place], [place] 4564806-25-2025 16:36-0400Body gwhihd610.4 cmKaren Hemmer PA Work Phone: [facility] CenterFvdktxueaj65-93-0248 16:36-0400Body mass index (BMI) [Ratio]53.3 kg/l4Hjgfj Hemmer PA Work Phone: [facility] CenterWxwtcmfqff43-53-9387 16:36-0400Body ngtqgu126.25 kgKaren Hemmer PA Work Phone: [facility] CenterBtjtrzayqz36-91-1304 16:36-0400Diastolic blood mezbgbvu41 mm[Hg]Carolyn Hemmer PA Work Phone: [facility] CenterJawesejmfm21-67-0414 16:36-0400Heart rate82 /min Carolyn Hemmer PA Work Phone: [facility] CenterWpvgfgxwpi15-02-6872 16:36-8439QlB5% (BldA) [Mass fraction]95 %Carolyn Hemmer PA Work Phone: [facility] CenterQpxlfwrien31-25-1531 16:36-0400Systolic blood wxgavgba585 mm[Hg]Carolyn Hemmer PA Work Phone: [facility] CenterVczhboglob14-70-5450 16:58-0400Body ftwulv278.4 cmKaren Hemmer PA Work Phone: [facility] CenterEkuifwvrwk18-79-5440 16:58-0400Body mass index (BMI) [Ratio]54.41 kg/o1Twknn Hemmer PA Work Phone: [facility] CenterWvdwdttjsu48-24-9370 16:58-0400Body ohuycf479.06 kgKaren Hemmer PA Work Phone: [facility] CenterWsmzyxgbnf82-77-1344 16:58-0400Diastolic blood wknhyowo84 mm[Hg]Carolyn Hemmer PA Work Phone: [facility] CenterUhnmceltpi58-58-0496 16:58-0400Heart rate83 /min Carolyn Hemmer PA Work Phone: [facility] CenterRazucwikfp62-98-1373 16:58-0400Respiratory rate16 /minKaren Hemmer PA Work Phone: noMin[facility] CenterBalmquzzak60-90-2885 16:58-0434UvU2% (BldA) [Mass fraction]98 %Carolyn Hemmer PA Work Phone: no[facility] CenterAhgabumhuz26-65-4150 16:58-0400Systolic blood frrjuikn239 mm[Hg]Carolyn Hemmer PA Work Phone: no[facility] CenterPckhbxzkcj45-26-3850 17:23-0500Diastolic blood cekldqed80 mm[Hg]Carolyn Hemmer PA Work Phone: no[facility] CenterJfpedbbfuh29-42-0385 17:23-0500Systolic blood yyjcpprd607 mm[Hg]Carolyn Hemmer PA Work Phone: no[facility] CenterArgsfofuuj36-08-7304 16:45-0500Body mzhbil840.4 cmKaren Hemmer PA Work Phone: no[facility] CenterTpfgwkpklh24-28-9718 16:45-0500Body mass index (BMI) [Ratio]52.93 kg/y3Hilsh Hemmer PA Work Phone: noMin[facility] CenterIerlfmacut98-18-8008 16:45-0500Body hozenp262.98 kgKaren Hemmer PA Work Phone: no[facility] CenterUnlkptnqlt14-79-9413 16:45-0500Heart rate71 /min Carolyn Hemmer PA Work Phone: no[facility] CenterDrfllgelkf93-95-7163 16:45-0500Respiratory rate18 /minKaren Hemmer PA Work Phone: no[facility] CenterTrqjbvqfji05-22-9606 16:45-8462NpR0% (BldA) [Mass fraction]98 %Carolyn Hemmer PA Work Phone: noMin[facility] CenterNodtqnegpj65-70-9359 14:33-0500Diastolic blood pcjutlnk16 mm[Hg]Carolyn Hemmer PA Work Phone: noMin[facility] CenterVvvvgvqxly35-34-4103 14:33-0500Systolic blood dbnwpafn498 mm[Hg]Carolyn Hemmer PA Work Phone: [facility] CenterShwrwxytcc02-48-8060 14:08-0500Body dduqyh343.4 cmKaren Hemmer PA Work Phone: [facility] CenterTvsmricfff77-65-1210 14:08-0500Body mass index (BMI) [Ratio]52.59 kg/i2Jcsay Hemmer PA Work Phone: [facility] CenterUurkjgopic71-69-6962 14:08-0500Body temperature 98.6 [degF]Carolyn Hemmer PA Work Phone: [facility] CenterAhvssiblly91-47-8606 14:08-0500Body kkmiom075.8 kgKaren Hemmer PA Work Phone: [facility] CenterAkmlqwjaiq90-70-5181 14:08-0500Heart rate91 /min Carolyn Hemmer PA Work Phone: [facility] CenterAqhisimhhs09-49-5595 14:08-0500Respiratory rate16 /minKaren Hemmer PA Work Phone: [facility] CenterSfilwdvfcq51-93-4539 14:08-1468WdU0% (BldA) [Mass fraction]96 %Carolyn Hemmer PA Work Phone: [facility] CenterMlqhmskbkw71-56-1327 16:41-0500Body huerbr503.4 cmKaren Hemmer PA Work Phone: [facility] CenterRqrcmlxlil85-19-7183 16:41-0500Body mass index (BMI) [Ratio]51.16 kg/x0Mzlyq Hemmer PA Work Phone: [facility] CenterQaulrjtmcr80-63-5282 16:41-0500Body .91 kgKaren Hemmer PA Work Phone: [facility] CenterHkzvcnlnrm57-78-7531 16:41-0500Diastolic blood vdesgnjp59 mm[Hg]Carolyn Hemmer PA Work Phone: [facility] CenterXkfxhszteo34-16-4011 16:41-0500Heart rate89 /min Carolyn Hemmer PA Work Phone: [facility] CenterIvchrnqfhu19-96-5764 16:41-0500Respiratory rate16 /minKaren Hemmer PA Work Phone: [facility] CenterCfmzzgvqvs80-22-3181 16:41-3991NfQ7% (BldA) [Mass fraction]96 %Carolyn Hemmer PA Work Phone: [facility] CenterPshhyeiixz12-23-5576 16:41-0500Systolic blood mm[Hg]Carolyn Conwaymer PA Work Phone: [facility] CenterXsndahuqit18-39-3737 14:12-0500Body gdgbil284.42 cmMichael Frings DO Work Phone: 1(132)[address]01-27-2025 14:12-0500 Body mass index (BMI) [Ratio]50.1 kg/k5Syhxpwu Frings DO Work Phone: 1(304)[address] [place], [place] 1052601-27-2025 14:12-0500 Body duneyr327.36 kgMichael Frings DO Work Phone: 1(959)[address] [place], [place] 1052601-27-2025 08:05-0500 Body .7 [degF]Calvin Hannonngs DO Work Phone: 1(189)[address] [place], [place] 1052601-27-2025 08:05-0500 Heart rate98 /minMichael Frings DO Work Phone: 1(083)[address] [place], [place] 1052601-27-2025 08:05-0500 Respiratory rate18 /minMichael Frings DO Work Phone: 1(745)[address] [place], [place] 1052601-13-2025 15:31-0500 Body .4 cmCarolyn Hemmer PA Work Phone: [facility] CenterSlykcphetr64-40-5234 15:31-0500Body mass index (BMI) [Ratio]50.95 kg/v1Sunqp Hemmer PA Work Phone: [facility] CenterAxuqdvigax96-14-7585 15:31-0500Body axmfdk954.18 kgJesusbritney Hemmer PA Work Phone: [facility] CenterXexuefsqky05-88-8692 15:31-0500Diastolic blood jlybgnbk25 mm[Hg]Carolyn Conwaymer PA Work Phone: [facility] CenterXfxvnwxjtm93-54-6281 15:31-0500Heart rate96 /min Carolyn Conwaymer PA Work Phone: [facility] CenterIlwlmoihfw78-74-3761 15:31-0500Respiratory rate18 /minCarolyn Conwaymer PA Work Phone: [facility] CenterBtematzlzq04-33-2927 15:31-6734UkR4% (BldA) [Mass fraction]97 %Carolyn Conwaymer PA Work Phone: [facility] CenterVatckbfvqp54-46-1099 15:31-0500Systolic blood jawmrluv139 mm[Hg]Carolyn Conwaymer PA Work Phone: [facility] CenterWelqgtluew94-80-7087 08:29-0500Diastolic blood uffidsmi48 mm[Hg]Calvin Hannonngs DO Work Phone: 1(681)516-[address] [place], [place] 3386701-13-2025 08:29-0500 Systolic blood bwfaojle429 mm[Hg]Calvin Riddhings DO Work Phone: 1(437)177-[address] [place], [place] 3386701-08-2025 11:16-0500 Diastolic blood hawhfedw26 mm[Hg]Calvin Riddhings DO Work Phone: 1(289)761-[address] [place], [place] 3386701-08-2025 11:16-0500 Heart rate98 /minMichael Frings DO Work Phone: 1(429)988-[address] [place], [place] 3386701-08-2025 11:16-0500 Respiratory rate18 /minMichael Frings DO Work Phone: 1(824)684-[address] [place], [place] 3386701-08-2025 11:16-0500 SaO2% (BldA) [Mass fraction]95 %Calvin Hannonngs DO Work Phone: 1(699)823-[address] [place], [place] 3386701-08-2025 11:16-0500 Systolic blood lauxlmqi138 mm[Hg]Calvin Hannonngs DO Work Phone: 1(132)858-[address] [place], [place] 3386701-08-2025 08:00-0500 Body fveqwdnarwn85.6 [degF]Calvin Osunas DO Work Phone: [facility]01-08-2025 06:50-0500 Body qljoju911.8 kgMicsanti Frings DO Work Phone: [facility]01-05-2025 16:00-0500 Inhaled oxygen flow rate2 L/minMichaepancho Frings DO Work Phone: 1(664)221-[address] [place], [place] 3386701-03-2025 15:21-0500 Body ynaboa463.42 cmMichael Frings DO Work Phone: [address] [place], [place] 3009410-23-2024 16:51-0400 Body tisyuc895.4 cmJesusen Hemmer PA Work Phone: [facility] CenterPskosqornb77-75-8602 16:51-0400Body mass index (BMI) [Ratio]49.5 kg/o8Hozxc Hemmer PA Work Phone: [facility] CenterShivzzpkhn14-81-6381 16:51-0400Body xakixi754.19 kgKaren Hemmer PA Work Phone: [facility] CenterBkkkugsazq09-78-3982 16:51-0400Diastolic blood wydkpwdx49 mm[Hg]Carolyn Hemmer PA Work Phone: [facility] CenterKjlnqsuqbj83-38-5375 16:51-0400Heart rate93 /min Carolyn Hemmer PA Work Phone: [facility] CenterNxxfixdyih76-61-1736 16:51-0400Respiratory rate16 /minJeussen Hemmer PA Work Phone: [facility] CenterNpbikzfrqp84-64-2275 16:51-6328IeO2% (BldA) [Mass fraction]96 %Carolyn Hemmer PA Work Phone: [facility] CenterOrncsdhmhf36-78-3784 16:51-0400Systolic blood gccfvnsi915 mm[Hg]Carolyn Hemmer PA Work Phone: [facility] CenterKwgvkmhboo89-54-1297 16:40-0500Diastolic blood tjkqretc44 mm[Hg]Carolyn Hemmer PA Work Phone: [place] Xjszgdgwaz28-84-6264 16:40-0500Systolic blood dpvympll301 mm[Hg]Carolyn Hemmer PA Work Phone: [facility] CenterUowzugsxrx91-84-0066 16:28-0500Body mass index (BMI) [Ratio]46.39 kg/h4Xvpwf Hemmer PA Work Phone: [facility] CenterCrokolayey81-30-0488 16:28-0500Body .49 kgKaren Hemmer PA Work Phone: [facility] CenterHotsfsgauu29-25-2614 16:28-0500Heart rate91 /min Carolyn Hemmer PA Work Phone: [facility] CenterFiziccaice08-71-5646 16:28-0500Respiratory rate18 /minJesusen Hemmer PA Work Phone: [facility] CenterLimawpusco84-67-7063 16:28-1476EfK8% (BldA) [Mass fraction]97 %Carolyn Hemmer PA Work Phone: [facility] CenterWvwscezrne21-94-5001 13:45-0500Body nxljmu342.42 Yamel Lewis Other [facility] Other 11-29-2023 13:45-0500Diastolic blood hfaracxk49 mm[Hg] Osiel Lewis Other [facility] Other 11-29-2023 13:45-0131PiW6% (BldA) [Mass fraction]97 % Osiel Lewis Other [facility] Other 11-29-2023 13:45-0500Systolic blood oxmyrxjo546 mm[Hg] Osiel Lewis Other [facility] Other 10-26-2023 16:00-0400Body zauman375.42 Yamel Lewis Other [facility] Other 10-26-2023 16:00-0400Body mass index (BMI) [Ratio] 48.02 kg/w4ZpjvfwOsiel Lewis Other [place] [facility] Other 10-26-2023 16:00-0400Body ouygqz717.11 kgOsiel Lewis Other [facility] Other 10-26-2023 16:00-0400Diastolic blood vbvooaoo11 mm[Hg] Osiel Lewis Other [place] [facility] Other 10-26-2023 16:00-9834HyT0% (BldA) [Mass fraction]96 % Osiel Lewis Other [place] [facility] Other 10-26-2023 16:00-0400Systolic blood nkyesvxm375 mm[Hg] Osiel Lewis Other [place] [facility] Other 09-27-2023 11:06-0400Diastolic blood ooklzcok77 mm[Hg] PA-C Carolyn Hemmer Work Phone: [facility]09-27-2023 11:06-0400 Heart rate77 /minPA-C Carolyn Hemmer Work Phone: [facility]09-27-2023 11:06-0400 Respiratory rate19 /minPA-C Carolyn Hemmer Work Phone: [facility]09-27-2023 11:06-0400 SaO2% (BldA) [Mass fraction]97 %PA-C Carolyn Hemmer Work Phone: [facility]09-27-2023 11:06-0400 Systolic blood yqezjidk552 mm[Hg]PA-C Carolyn Hemmer Work Phone: 1(408)[address] [place], [place] 7310809-27-2023 09:24-0400 Body kbapbbycuuj47.6 [degF]PA-C Carolyn Hemmer Work Phone: 1(186)[address] [place], [place] 7310809-27-2023 09:23-0400 Body mvtusl768.42 cmPA-C Carolyn Hemmer Work Phone: 1(076)[address] [place], [place] 7310809-27-2023 09:23-0400 Body simudb273.8 kgPA-C Carolyn Hemmer Work Phone: 1(052)[address] [place], [place] 7310805-09-2023 09:07-0400 Body pynlxztfosu54.2 [degF]PA-C Carolyn Hemmer Work Phone: 1(890)[address] [place], [place] 7310805-09-2023 09:07-0400 Body .68 kgPA-C Carolyn Hemmer Work Phone: 1(920)[address] [place], [place] 7310805-09-2023 09:07-0400 Diastolic blood zxcwzhwu87 mm[Hg]PA-C Carolyn Hemmer Work Phone: 1(101)[address] [place], [place] 7310805-09-2023 09:07-0400 Heart rate80 /minPA-C Carolyn Hemmer Work Phone: 1(883)[address] [place], [place] 7310805-09-2023 09:07-0400 Respiratory rate20 /minPA-C Carolyn Hemmer Work Phone: 1(684)[address] [place], [place] 7310805-09-2023 09:07-0400 SaO2% (BldA) [Mass fraction]97 %PA-C Carolyn Hemmer Work Phone: 1(571)[address] [place], [place] 7310805-09-2023 09:07-0400 Systolic blood nraspomx071 mm[Hg]PA-C Carolyn Hemmer Work Phone: 1(920)[address] [place], [place] 7310805-08-2023 08:52-0400 Body evejdr862.4 cmVíctor Rosales MD Work Phone: cH[facility] HospitalVuzagb89-59-9652 08:52-0400Body ienxel407.48 kgVíctor Rosales MD Work Phone: [phone] Xwgpbw36-89-8084 08:52-0400Diastolic blood fqqrijis34 mm[Hg]Víctor Rosales MD Work Phone: [phone] Wpeqbh50-89-3934 08:52-0400Heart rate92 /min Víctor Rosales MD Work Phone: [place] Ndylsw58-96-3779 08:52-0400Systolic blood xytgtzbs179 mm[Hg]Víctor Rosales MD Work Phone: [phone])[phone] Lzlvjo37-31-0854 08:01-0400Body zaktnh545.42 cmPA-C Carolyn Hemmer Work Phone: 1(222)967[facility]36[facility]03-27-2023 17:55-0400 Diastolic blood egyqejya53 mm[Hg]PA-C Carolyn Hemmer Work Phone: [facility]03-27-2023 17:55-0400 Heart rate92 /minPA-C Carolyn Hemmer Work Phone: [facility]03-27-2023 17:55-0400 Respiratory rate16 /minPA-C Carolyn Hemmer Work Phone: [facility]03-27-2023 17:55-0400 SaO2% (BldA) [Mass fraction]94 %PA-C Carolyn Hemmer Work Phone: [facility]03-27-2023 17:55-0400 Systolic blood ujgzikxh545 mm[Hg]PA-C Carolyn Hemmer Work Phone: [facility]03-27-2023 17:25-0400 Inhaled oxygen flow rate1 L/minPA-C Carolyn Hemmer Work Phone: [facility]03-27-2023 16:26-0400 Body nbezfujyehk74.4 [degF]PA-C Carolyn Hemmer Work Phone: [facility]03-27-2023 15:31-0400 Body sooehz815.42 cmPA-C Carolyn Hemmer Work Phone: [facility]03-27-2023 15:31-0400 Body mass index (BMI) [Ratio]48.2 kg/m2PA-C Carolyn Hemmer Work Phone: [facility]03-27-2023 15:31-0400 Body qwkukq987 kgPA-C Carolyn Hemmer Work Phone: [facility]03-16-2023 11:13-0400 Diastolic blood codpohfr91 mm[Hg][facility]yn [facility]dinM[facility] [facility] DO Work Phone: [phone](607)979-457-393780-62 11:13-0400Systolic blood jvslheut866 mm[Hg] Carolyn Andrews [facility] [address] DO Work Phone: 1(857)115-944-511705-79 11:12-0400Body lxrwaw376.42 cmCarolyn Andrews [facility] 250 DO Work Phone: [phone](745)084-330-401855-20 11:12-0400Body mass index (BMI) [Ratio] 47.36 kg/d2Lgnsb M [facility] [facility] DO Work Phone: [phone](398)771-659-914556-20 11:12-0400Body surface area Derived from formula2.76 r1Sekqs M [facility] [address] DO Work Phone: 5(099)682-335-096534-23 11:12-0400Body .84 kgCarolyn Andrews [facility] [facility] DO Work Phone: [phone](783)086-720-546111-47 11:12-0400Diastolic blood yizkpswq31 mm[Hg] Carolyn Andrews [facility] 250 DO Work Phone: [phone](783)130-454-827479-27 11:12-0400Heart rate90 /minCarolyn Verdin [facility] 250 DO Work Phone: 1(737) 540-253203-16-2023 11:12-0400Systolic blood ovgwunwu453 mm[Hg] [facility]dinM[facility] 250 DO Work Phone: 1(505) 805-352903-06-2023 10:54-0500Diastolic blood owhnailj54 mm[Hg] [employer] [facility]03-06-2023 10:54-0500Mean blood dqqwdspo945 mm[Hg][employer] [facility]03-06-2023 10:54-0500Respiratory rate70 /minSilvercare Solutions [facility]03-06-2023 10:54-0500Systolic blood dkhkdeve005 mm[Hg][employer] [facility]03-06-2023 10:37-0500Blood Pressure LocationGregBoatsGo [facility]03-06-2023 10:37-0500Diastolic blood nolycasl52 mm[Hg][employer] [facility]03-06-2023 10:37-0500Heart rate84 /minDoniBoatsGo [facility]03-06-2023 10:37-0500Systolic blood ciypodhj672 mm[Hg][employer] [facility] Encounters Encounter DateEncounter TypeCare ProviderFacilityStart: 12-13-2024 End: 16-11-6054joknioosbcLcnyo Hemmer CHEMICAL PROCESSING TECHNICIAN-C Work Phone: [facility] Work Phone: Start: 12-13-2024 End: 87-81-1982Wdrzitk encounter procedureSbarbara Lewis MDEcu [facility] Work Phone: Start: 12-06-2024 End: 58-18-4720uhwxjrlpcoMnfmm Hemmer CHEMICAL PROCESSING TECHNICIAN-C Work Phone: [facility] Work Phone: Start: 12-06-2024 End: 07-21-1474Fimkkxh encounter procedureSbarbara Lewis MDDec[facility] Work Phone: Start: 11-13-2024 End: 42-84-6147Nsbfchc encounter procedureSbarbara Lewis MDBeverly [facility] Work Phone: Start: 11-13-2024 End: 46-30-0770lhwggqxvuyFplob Hemmer CHEMICAL PROCESSING TECHNICIAN-C Work Phone: [facility] Work Phone: Start: 11-12-2024 End: 46-67-0538pzcvchzdefGfgsq Hemmer CHEMICAL PROCESSING TECHNICIAN-C Work Phone: [facility] Work Phone: Start: 11-12-2024 End: 35-63-3760Nittmsz encounter procedureSbarbara Lewis MDEcu [facility] Work Phone: Start: 10-29-2024 End: 64-13-6357Xgnnvl outpatient visit 25 minutesCarolyn BRODERICK Work Phone: [facility] above:Type 2 diabetes mellitus with hyperglycemia, with long-term current use of insulin (HCC) (Primary Dx); Primary hypertension ; Morbid obesity (CMS-HCC); BMI 50.0-59.9, adult ([facility]-HCC); Lumbar spondylosisStart: 10-29-2024 End: 87-90-6379gffgxksabeYVKZT M HEMMERNot AvailableStart: 10-29-2024 End: 89-30-0993Lrahyv Donavan Veridn PA Work Phone: [facility] MedinceStart: 10-29-2024 End: 85-60-9579Lyknnh Donavan Verdin PA Work Phone: [facility] MedinceStart: 08-29-2024 End: 00-75-3495Ibcrvc outpatient visit 25 minutesCarolyn BRODERICK Work Phone: [facility] CI FMComment on above: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); Type 2 diabetes mellitus with hyperglycemia, with long-term current use of insulin (HCC); Morbid obesity (CMS-HCC); BMI 50.0-59.9, adult ([facility]-HCC); Type 2 diabetes mellitus with other specified complication, with long-term current use of insulin (HCC)Start: 08-29-2024 End: 22-29-1473vrzxbggvpgVIWPX M HEMMERNot AvailableStart: 08-01-2024 End: 54-32-7234Ikwtfg outpatient visit 25 minutesCarolyn BRODERICK Work Phone: [facility] CI FMComment on above:Type 2 diabetes mellitus with other specified complication, with long-term current use of insulin (P rimary Dx); 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); Lymphedema; Lumbar spondylosis; Type 2 diabetes mellitus with hyperglycemia, with long-term current use of insulin (CMS/HCC); Morbid obesity (CMS/HCC); BMI 50.0-59.9, adult ([facility]/HCC)Start: 08-01-2024 End: 59-57-9536izhgewkpinGMDKA M HEMMERNot AvailableStart: 08-01-2024 End: 26-92-3614Fbhxdn Donavan BRODERICK Work Phone: [facility] CI FMStart: 08-01-2024 End: 49-26-7187Yigxjn Donavan BRODERICK Work Phone: [facility] CI FMStart: 00-19-5552clcnpxpcyoRneos Hemmer [facility] 05-09-2024 End: 75-43-5657Adrulg outpatient visit 25 minutesCarolyn BRODERICK Work Phone: [facility] CI FMComment on above:Type 2 diabetes mellitus with hyperglycemia, without long-term current use of insulin (CMS/HCC) (Primary Dx); Morbid obesity (CMS/HCC); BMI 50.0-59.9, adult (CMS/HCC); 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); Cellulitis of left lower leg; Lymphedema; Pitting edema; Levoscoliosis of lumbar spineStart: 05-09-2024 End: 92-39-8799hqkgjaxdzsUVQNE M HEMMERNot AvailableStart: 05-09-2024 End: 31-40-4739Qecuqk Donavan BRODERICK Work Phone: [facility] CI FMStart: 05-09-2024 End: 71-90-0061Vpqdrugeorge BRODERICK Work Phone: [facility] CI FMStart: 04-26-2024 End: 26-08-6071Vonxdv outpatient visit 25 minutesCarolyn BRODERICK Work Phone: [facility] CI FMComment on above: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) (Primary Dx); Cellulitis of left lower leg; Pitting edema; Lumbar spondylosis; Spinal stenosis of lumbar region, unspecified whether neurogenic claudication presentStart: 04-26-2024 End: 65-65-2182misfhnskjoWZXOLAmrita Deng AvailableStart: 04-10-2024 End: 44-08-2540Wlyjvhdkm Andrew Rodriguez MD Work Phone: [facility] CI FMStart: 04-04-2024 End: 07-32-1676Wxthkw outpatient visit 25 minutesCarolyn BRODERICK Work Phone: [facility] CI FMComment on above:Type 2 diabetes mellitus with other specified complication, without long-term current use of insulin (CMS/HCC) (Primary Dx); 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); Cellulitis of left lower leg; Morbid obesity (CMS/HCC); BMI 50.0-59.9, adult (CMS/HCC); Mild tricuspid regurgitationStart: 04-04-2024 End: 91-01-9438thpfxovmgdGUKQZAmrita Deng AvailableStart: 04-04-2024 End: 10-71-8945Ncvamg Donavan BRODERICK Work Phone: [facility] CI FMStart: 04-04-2024 End: 84-34-1287Pvsvqa Donavan BRODERICK Work Phone: [facility] CI FMStart: 04-02-2024 End: 72-01-1082qxivzhsocaHlnveai Frings DO Work Phone: [facility] Work Phone: Start: 04-02-2024 End: 89-55-1364Hqjzmvmnyy RecurringMichael Frings DO Work Phone: [facility] [place] Work Phone: Start: 03-22-2024 End: 39-36-7617Kfwveaffm encounterDaleonila Rodriguez MD Work Phone: [facility] FMStart: 03-19-2024 End: 30-27-2209Lghicv outpatient visit 25 minutesCarolyn BRODERICK Work Phone: [facility] FMComment on above:Cellulitis of left lower leg (Primary Dx); History of sepsis; Morbid obesity (CMS/HCC); Primary hypertension (CMS/HCC)Start: 03-19-2024 End: 81-38-5732kmjchbahfuWNJLUAmrita Deng AvailableStart: 65-67-3752Juv-patient / Non-visitMichael Frings DO Work Phone: [facility] Work Phone: Start: 50-31-3047Qwt-patient / Non-visitMichael Frings DO Work Phone: [facility] Work Phone: Start: 03-08-2024 End: 56-84-2328Pouifsvwdp and management of inpatientMike Phelan MD Work Phone: [facility] [place] [facility] Work Phone: Start: 03-07-2024 End: 22-79-5819wuuahzgxguUMT [facility] Work Phone: Start: 03-07-2024 End: 43-70-2960Gcloofqd ReferredMike Phelan MD Work Phone: [facility]-LAB Path Spec Gloria HospStart: 12-28-2023 End: 69-75-9950Qicbup outpatient visit 25 minutesCarolyn BRODERICK Work Phone: [facility] CI FMComment on above:Type 2 diabetes mellitus with other specified complication, without long-term current use of insulin (CMS/HCC) (Primary Dx); Primary hypertension (CMS/HCC); Morbid obesity (CMS/HCC)Start: 12-28-2023 End: 44-79-7921baymyuzmxqWNKKUAmrita Deng AvailableStart: 12-28-2023 End: 24-88-9208Uzjzrubryan BRODERICK Work Phone: [facility] FMStart: 12-28-2023 End: 81-59-6258Iejliibryan BRODERICK Work Phone: [facility] FMStart: 12-27-2023 End: 20-11-7566BxknppUrlobl B Berry MD Work Phone: [facility] CI FMComment on above:Morbid obesity (CMS/HCC) Start: 11-23-2023 End: 45-28-8249QkgewtKnpgrNikki BRODERICK Work Phone: [facility] CI FMComment on above:Morbid obesity (CMS/HCC) Start: 11-21-2023 End: 54-89-5047VgxkvxSvcvyd B Berry MD Work Phone: [facility] CI FMComment on above:Morbid obesity (CMS/HCC) Start: 10-24-2023 End: 56-13-2238BevupbXjezuNikki BRODERICK Work Phone: [facility] CI FMComment on above:Morbid obesity (CMS/HCC) Start: 04-20-2023 End: 42-02-2624Upmczl outpatient visit 15 minutesCarolyn Verdin PA Work Phone: [facility] CI FMComment on above:Primary hypertension (CMS/HCC) (Primary Dx); Morbid obesity (CMS/HCC)Start: 37-07-5030Vgytus Donavan Verdin PA Work Phone: [facility] FMStart: 03-73-7434Cwytdw Donavan BRODERICK Work Phone: [facility] CI FMStart: 02-02-2023 End: 54-95-2511mgebuamgviVfrmuh Joshua Other [employer] Other Start: 82-44-6378Owcxcb outpatient visit 15 minutes Osiel ZakyFPG Pain ManagementStart: 12-30-2022 End: 62-90-3357xtlhnryizvHmcdao Joshua Other noSol[employer] Ecal Other Start: 28-01-8274Hirnll consultation new/estab patient 60 minSherif ZakyFPG Pain ManagementStart: 12-01-2022 End: 19-99-8942Grjeywjzm department patient visitPA-Falguni Verdin Work Phone: [facility] Work Phone: Start: 11-09-2022 End: 37-03-3407pfryrdhbztMILBB HEMMERFacility:EU [place]kyStart: 08-19-2022 Telephone Dereje Rosales MD Work Phone: UrologyComment on above:ResultsStart: 08-13-2022 End: 87-51-3369miopjunatuPRMDZHJ L RALOFSKYFacility:[facility] Start: 08-09-2022 End: 36-38-4933xtzrigiobgKulvxli P COOKFacility:[facility] [place]kyStart: 08-09-2022 End: 46-62-6130Igwbzyg encounter procedureGregjames SANTANA [facility] Start: 07-13-2022 End: 09-37-3247snisfxcdosCXC Carolyn Verdin Work Phone: [facility] Work Phone: Start: 07-13-2022 End: 19-53-3151Mplkjrmajz RecurringNE-C Carolyn Verdin Work Phone: [facility] Work Phone: Start: 07-12-2022 End: 81-78-4375ctzvbhlcbxXevkfnq W Angermeier MD Work Phone: UrologyStart: 07-12-2022 End: 44-19-5428Iaitbrt encounter procedureVíctor Rosales MD Work Phone: UrologyComment on above:Penile cancer (HCC) (Primary Dx); Hidden penis; Morbid obesity with BMI of 45.0-49.9, adult (HCC)Start: 06-21-2022 End: 52-46-5490iuiantnpvyHgordmf P COOKFacility:[facility] [place]kyStart: 05-31-2022 End: 44-00-6284wxkdcwriodEywiogb P RHONDAFacility:CD:[id number]: 05-31-2022 End: 45-01-3425Gluigxihg to same day surgery centerPA-Falguni Verdin Work Phone: [facility] CampusStart: 12-89-5251Nuiwsg consultation new/estab patient 60 minCarolyn VerdinMason [facility] [address] DO Work Phone: Start: 83-46-7017anhubtheizKlkguwb Sheldon Facility:[id number]: 05-17-2022 End: 42-17-9724hhkvcjvxslFK-Falguni Stokes Hemmer Work Phone: [facility] Work Phone: Start: 05-17-2022 End: 90-25-9265Epifzor encounter procedurePA-C Carolyn Hemmer Work Phone: [facility] Clo-Pjv-Ymloltbk Testing Work Phone: Start: 05-10-2022 End: 39-62-0706rszwepcvgiHmirciy P COOKFacility:[facility] [place]kyStart: 05-10-2022 End: 20-20-5186Rbyyama encounter procedureTimmy SANTANA [facility] Start: 92-96-6921fzdcargxeoRINRT HEMMERFacility:EU [place]uskyPatient encounter Babak VerdinM[facility] 250 DO Work Phone: Procedures DateProcedureProcedure DetailPerforming ClinicianStart: 17-40-0098Knnvf X-ray of right hipCarolyn Conwaymer CHEMICAL PROCESSING TECHNICIAN-C Work Phone: Start: 42-33-0302Z-ray of thoracic spine, three views Carolyn Hemmer CHEMICAL PROCESSING TECHNICIAN-C Work Phone: Start: 48-55-3412Ofxjckokzc glycosylated c0jKwptg M Hemmer PA Work Phone: Start: 10-85-9774Akvxgyhaqx glycosylated b4cIwlep M Hemmer PA Work Phone: Start: 96-02-8218Obvqszpcbn glycosylated g2kEcvpb M Hemmer PA Work Phone: Start: 43-73-1291Wwvipv scan of lower limb veins Calvin Son DO Work Phone: Start: 93-66-3219Bzuormab identified in Blood by CultureMichael Frings DO Work Phone: Start: 59-21-5296JQ of lower leg with contrastMichael Frings DO Work Phone: Start: 67-84-8538Uhtlpxat identified in Blood by CultureMichael Frings DO Work Phone: Start: 60-88-4157Hmuzpmzkd ID (NA Multiplex Assay) Mike Phelan MD Work Phone: Start: 05-20-6526Mmqrmkfgat glycosylated x5jHkhctCarolyn Verdin PA Work Phone: Start: 83-40-3195AS of right hipPA-C Carolyn Hemmer Work Phone: Start: 87-73-9489Nmbtw dip stick/tablet rgnt auto w/o microscopyBulk Order ProviderStart: 98-39-3187Lcziywes tomography of abdomen and pelvis with contrastPA-C Carolyn Hemmer Work Phone: Start: 65-46-8294JC of thorax with contrastPA-C Carolyn Hemmer Work Phone: Start: 41-46-6966WiokyknfnskgFQ-C Carolyn Hemmer Work Phone: Start: 20-40-1030JttjxcwzslweRqwazkc [employer] Start: 82-08-3129Rdixi chest X-rayPA-C Carolyn Hemmer Work Phone: Start: 84-53-3399Eblueed of tonsillectomyGregtrihealth good [facility] [employer] NEGATED: Highlighted row has not occurred!Total colonoscopyCarolyn Verdin Plan of Treatment DateCare ActivityDetailAuthorStart: 10-93-6949RMLIORIE CANCER SCREENING DISCUSSIONPROSTATE CANCER SCREENING DISCUSSIONCleveland ClinicStart: 05-14-2025 Urine screening for proteinDiabetes: Urine Protein ScreeningNOIA Healthcare Start: 02-06-2025 End: 84-10-0506Ydstbqt encounter xhweopblv46/03/2025 4:30 PM EST Office Visit [facility] [place] [facility] [address] [place] [address] Carolyn Verdin PA [address] [place] [address] [facility] [place] [facility]Start: 01-29-2025 Hemoglobin A1c measurementDiabetes: Hemoglobin S7EMCZP HealthcareStart: 36-85-1658Qkbffqjjr vaccinationInfluenza Vaccine (#1)[facility] HealthcareStart: 69-90-7701Dczvajprgt A1c measurementDiabetes: Hemoglobin G2TAOHA Healthcare Start: 10-29-2024 End: 06-18-3429Uetllnv encounter procedureNOMS CI FMComment on above:Arrived Start: 15-60-6469Qjoyxsoya vaccinationInfluenza Vaccine (#1)[facility] Healthcare Comment on above:Postponed from 11/06/2023 (Patient Refused)Start: 08-29-2024 End: 01-25-4135Tlopkpc encounter xuyicwjic56/25/2025 4:30 PM EDT Office Visit [facility] FM [address] [place] [address] Carolyn Verdin PA [address] [place] [address] N[facility] CI FMStart: 10-39-4599Vxbzilsfm for malignant neoplasm of colonColorectal Cancer ScreeningNOIA HealthcareComment on above: Postponed from 1965 (Patient Refused)Start: 08-01-2024 End: 07-10-7286Hpphqcc encounter wvenyblbd95/28/2025 5:00 PM EDT Office Visit [facility] [address] [place] [address] Carolyn Verdin, PA [address] [place] [address] ArrivedNOMS CI FMComment on above:ArrivedStart: 24-72-6564Ubzxcakemf A1c measurementDiabetes: Hemoglobin Q2VNEVW Healthcare Start: 06-13-2024 End: 94-73-6143Sjauvah encounter ftyhevctl26/09/2025 5:00 PM EDT Office Visit [facility] [address] [facility] [address] [place] [address] Carolyn Verdin PA [address] [place] [address] N[facility] CI FMStart: 05-09-2024 End: 99-58-5629Jneoyjo encounter procedureNOMS CI FMComment on above:Arrived Start: 05-09-2024 End: 00-87-7355Ksyduggaabwqi metabolic 2000 panel - Serum or PlasmaComprehensive metabolic panel Lab Routine Type 2 diabetes mellitus with hyperglycemia, without long-term current use of insulin ([facility]) Expected: 05/09/2024 (Approximate), Expires: 05/09/2025NOMS HealthcareComment on above:Expected: 05/09/2024 (Approximate), Expires: 05/09/2025Start: 05-09-2024 End: 60-01-4619Esoofolhnflp/Creatinine panel in random UrineMicroalbumin / creatinine, urine ratio Lab Routine Type 2 diabetes mellitus with hyperglycemia, without long-term current use of insulin ([facility]) Expected: 05/09/2024 (Approximate), Expires: 05/09/2025[facility] Work Phone: Comment on above:Expected: 05/09/2024 (Approximate), Expires: 05/09/2025Start: 04-04-2024 End: 61-19-6078Ydoapny encounter procedureNOMS CI FMComment on above:Arrived Start: 40-38-7710Dvzidwwmgx A1c measurementDiabetes: Hemoglobin M2KCNJS HealthcareStart: 15-94-7762ZcnbhzngeSheltering Arms Hospitaltart: 03-09-2024 ConsultationSheltering Arms Hospitaltart: 99-54-1937Sbggkgrs to infectious diseases physicianSheltering Arms Hospitaltart: 03-09-2024 [facility] Hospitaltart: 86-18-5874Dckuvtpy admissionSheltering Arms Hospitaltart: 10-10-0935TswhllylvAccess [facility] CenterStart: 78-35-8866RjuqtrqjgAccess Hospital [facility] CenterStart: 24-86-7390Utemmtyj identified in Blood by CultureBlood CultureSheltering Arms Hospitaltart: 53-95-2327Yjkqq screening for proteinDiabetes: Urine Protein ScreeningLAKEVIEW HOSPITAL HealthcareStart: 12-28-2023 End: 48-40-8017Bsaspsi encounter procedureNOMS CI FMComment on above:Arrived Start: 47-01-5189Litybwbeqy A1c measurementDiabetes: Hemoglobin C4KSHPV HealthcareStart: 11-23-2023 End: 77-90-6101Djpbgaf encounter ghbpggutw99/18/2024 5:00 PM EDT Office Visit [facility] [address] [facility] [address] [place] [address] Carolyn Verdin PA [address] [facility] [address] [place] [address] N[facility] CI FMStart: 17-79-9905Fnfpqcyyj vaccination Influenza Vaccine (#1)[facility] HealthcareStart: 25-40-4692HMVEJHWR SCREENDIABETES SCREENUniversity Hospitals St. John Medical Centertart: 07-20-2023 End: 46-76-5169Lyvmljy encounter uljgizacn13/15/2024 5:00 PM EDT Office Visit [facility] [address] [facility] [address] [place] [address] Carolyn Verdin PA [address] [facility] [address] [place] [address] NOMS CI FMStart: 66-83-4256Kxolbndkfb A1c measurement Diabetes: Hemoglobin S3WTIDV HealthcareStart: 04-20-2023 End: 61-34-2534Orijddu encounter uxiplpqid66/14/2024 5:00 PM EST Office Visit [facility] [address] [facility] [address] [place] [address] Carolyn Verdin PA [address] [facility] [address] [place] [address] ArrivedNOMS CI FMComment on above:ArrivedStart: 17-07-9733Lfgbpbzbe vaccinationINFLUENZA (Season Ended)[facility] Centertart: 19-69-6829Btxztyqlp for malignant neoplasm of colonNOMS HealthcareStart: 39-12-6577Wgrybjbt screeningDiabetes: Retinopathy ScreeningNOIA HealthcareStart: 50-39-2172BhptqbedcSheltering Arms Hospitaltart: 73-55-4781NusguzcriSheltering Arms Hospitaltart: 34-34-9979Mkmkz chest X-rayXR chest 2V*[facility] Hospitaltart: 51-22-0804TU Chest 2 ViewsMercy Health – The Jewish [facility] Start: 68-71-2238YCDVTKFNCD ASSESSMENTDEPRESSION ASSESSMENTSt. Francis Hospital Start: 55-72-6039KDIMF-19 VACCINE (4 - Booster for Moderna series)COVID-19 VACCINE (4 - Booster for Moderna series)[facility] Centertart: 2015 SHINGRIX VACCINE (1 of 2)SHINGRIX VACCINE (1 of 2)[facility] Centertart: 67-81-3285NSVMRZTWT (FIT-DNA)COLOGUARD (FIT-DNA)[facility] Centertart: 99-78-5409BfjbwusygsrZILROKEZTBXPresalpcw ClinicStart: 80-72-9977ODTCJOIKHQ CANCER SCREENINGCOLORECTAL CANCER SCREENINGUniversity Hospitals St. John Medical Centertart: 44-24-5376NG COLONOGRAPHYCT COLONOGRAPHYUniversity Hospitals St. John Medical Centertart: 03-22-0558PFPLV OCCULT BLOOD FECAL OCCULT BLOODUniversity Hospitals St. John Medical Centertart: 69-70-9615SDNBNVWVYMWIFNGWCOXWGSRRHQ [facility] Centertart: 71-41-4136IHULZ SCREENLIPID SCREENUniversity Hospitals St. John Medical Centertart: 74-38-4764Dnqrl microalbumin profileDTAP,TDAP,TD (1 - Tdap)[facility] Start: 48-63-5804AFFAHIQIZ C SCREENINGHEPATITIS C SCREENINGSt. Francis Hospital Start: 79-66-0166JTM SCREENINGHIV SCREENINGUniversity Hospitals St. John Medical Centertart: 1965 HEPATITIS B (1 of 3 - 3-dose series)HEPATITIS B (1 of 3 - 3-dose series) [facility] Centertart: 95-00-7109Tqpgeesuy for malignant neoplasm of colonLAKEVIEW HOSPITAL HealthcareCBC W Auto Differential panel - BloodCBC and differential Lab Routine Type 2 diabetes mellitus with hyperglycemia, without long-term current use of insulin (CMS/HCC) Hypertension due to endocrine disorder ([facility]/HCC) Cellulitis of left lower leg Ordered: 05/09/2024NOIA HealthcareComment on above:Ordered: 05/09/2024Lipid 1996 panel - Serum or PlasmaLipid panel Lab Routine Type 2 diabetes mellitus with hyperglycemia, without long-term current use of insulin (CMS/HCC) 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) Ordered: 05/09/2024 [facility] HealthcareComment on above:Ordered: 05/09/2024Patient Education[facility] Work Phone: [facility] referral[facility] Work Phone: [facility]R Hip - right 2 [facility]XR [facility] 3 [facility] Immunizations Immunization DateImmunizationNotesCare MwkxbvudXbgqhrtw72-36-7170atzhsqapu, seasonal, injectable, preservative freeKaren Hemmer PA Work Phone: [facility] CenterUntkwgrrwv11-92-3660delfowpbn virus vaccine, unspecified formulationKaren Hemmer PA Work Phone: [facility] CenterTfledxgjup38-32-6798rkhaaeeqh, injectable, quadrivalent, preservative freeKaren Hemmer PA Work Phone: [facility] CenterFgmxrxphsu50-69-9420irwoahgmm virus vaccine, unspecified formulationKaren Hemmer PA Work Phone: [facility] CenterFohotfxezk65-51-4393CJRJ-JcL-9 (COVID-19) mRNA- 1273 vaccineGregory [facility]to[employer] Hospitaly04-29-2021SARS-CoV-2 (COVID-19) mRNA-1273 vaccineGregory Cyto[employer]iva [facility] HospitalyComment on above:Result Comment: 2022-05-10: TEH8775-50-6706TBQF-TiU-8 (COVID-19) iORM-6353 vaccineTimmy [facility]to[employer] RadhayComment on above:Result Comment: 2022-05-10: VVP7361-53-1648qbdberyaw virus vaccine, unspecified formulationTimmy CytoViva [facility] Hospitaly10-02-2017seasonal influenza, intradermal, preservative [facility] Payers DatePayer CategoryPayerPolicy [id number] Health InsuranceMEDICAL MUTUAL [id number] [id number] [id number] 2..1.970937.3.57[id number] 2.0.1.636302.3.57[id number] 2..1.911227.3.57[id number] 2.0.1.250064.3.57[id number] 2.0.1.069714.3.57[id number] 2..840.1.867682.3.57[id number] 2.16.840.1.145560.3.57[id number] 2.840.1.917028.3.579.2.[id number] 2..840.1.014173.3.57[id number] 2.0.1.455140.3.57[id number] 2.0.1.264406.3.57[id number] 2..1.794957.3.57[id number] 2.0.1.629136.3.57[id number] 2..840.1.0978[id number] 2.840.1.168901.3.579.2.531 [id number] 2.840.1.6[id number] 2.840.1.87664[id number] 2.840.1.615476.3.579.2.531 [id number] 2.840.1.261496.3.579.2.531 Social History DateTypeDetailFacilityStart: 05-10-2022 End: 74-01-6840Cbpxzte smoking statusNever smoked tobacco (finding)[facility] SandrussellyTobacco smoking statusNever [facility] SanduskyStart: 03-16-2023 End: 63-66-9429Ogc Assigned At [facility]ertart: 05-17-2022 End: 32-80-8132Ckrcevc smoking status NHISEx-smoker (finding)[facility] Hospitaltart: 73-82-1824Rjh Assigned At [facility] Centertart: 03-16-2023 End: 29-31-5414Iyeyeurlhw alcohol useOccasional alcohol use-[facility] 250 DO Work Phone: Comment on above:couple shots 1- 2 per week;tea all day, occasionally coffee;quit 29+ years ago;History of tobacco useCurrent smoker St. [facility] HospitalHistory of tobacco useCigarette SmokerUniversity Hospitals St. John Medical Centertart: 07-12-2022 End: 99-57-2782Uylcfsv use and exposureUser of smokeless tobaccoSt. Francis Hospital Start: 75-11-3608Tad Assigned At BirthNot on fileSt. Francis HospitalHistory of tobacco useSnuff UserNOMS HealthcareStart: 03-16-2023 End: 01-78-8938Vzzqqrx intakeCurrent drinker of alcohol (finding)[facility] Start: 21-18-8139Mvuvamn CommentCaffeine intake: coffee, sodaNOMS Healthcare Start: 03-09-2024 End: 11-56-9330UpxWwbk (finding)[facility] Medical Equipment Procedure CodeEquipment CodeEquipment Original TextEquipment IdentifierDates [id number], [id number], [id number]: 07-03-2013 Goals DatePatient GoalDesired Activity/State Functional Status QsdvTgthjueiwnOeercjJlduidtu30-39-8953Nltbzqq Health Questionnaire 2 item (PHQ- 2) [Reported][facility] CenterWocdcxfhqi20-83-6508Ngwwhpfvgl statusPatient at [facility] Work Phone: 1(214) 200-806003198145-74-3453Xwbjhekarz StatusN/AExecutive [facility]rology of [facility] Mental Status IvwmMchknjgwygLoglqgMgowciju85-24-9038Disxymwpt functionCognitive Status [facility] Work Phone: Clinical Notes 05-10-2022 to 11-12-2024 Note Date & NajoGooeCqjgcyfo71-62-6384 Evaluation note* Diagnosis Onset Date Resolution Status Admit Date Lumbosacral spondylosis acuteSeptember 2024 2:54pmMid back painacuteSeptember 2024 2:54pmOther chronic painacuteSeptember 2024 2:54pmRight hip painacuteSeptember 2024 2:54pmThoracic spondylosisacuteSeptember 2024 2:54pm [facility] Work Phone: 1(321) 263-867609-08-2025 Evaluation note* Diagnosis Onset Date Resolution Status Admit Date Lumbosacral spondylosis acuteSeptember 2024 2:54pmMid back painacuteSeptember 2024 2:54pmOther chronic painacuteSeptember 2024 2:54pmRight hip painacuteSeptember 2024 2:54pmThoracic spondylosisacuteSeptember 2024 2:54pmMyofascial muscle painacuteOctober 2024 2:16pmOther chronic painacuteOctober 2024 2:16pm Thoracic spondylosisacuteOctober 2024 2:16pm [facility] Work Phone: 1(810) 815-779009-08-2025 Evaluation note* Diagnosis Onset Date Resolution Status Admit Date Lumbosacral spondylosis acuteSeptember 2024 2:54pmMid back painacuteSeptember 2024 2:54pmOther chronic painacuteSeptember 2024 2:54pmRight hip painacuteSeptember 2024 2:54pmThoracic spondylosisacuteSeptember 2024 2:54pmMyofascial muscle painacuteOctober 2024 2:16pmOther chronic painacuteOctober 2024 2:16pm Thoracic spondylosisacuteOctober 2024 2:16pmMyofascial muscle painacute October 2024 3:12pmOther chronic painacuteOctober 2024 3:12pm [facility] Work Phone: 1(407) 355-562408-25-2025 History of Present illness Narrative* MEGGAN Lopez - 10/29/2024 4:30 PM EDT Images from the original note were not included. Subjective Patient ID: Juan Bean is a 59 y.o. male who presents for diabetes. Juan is present today for follow up diabetes. Denies foot ulcers. Admits hypoglycemia, tingling/numbness in extremities. Does check BS's at home and on average running around 162. Currently on Actos, Metformin and at last o/v his Soliqua was increased to 20 units daily. Is eating protein bars when he needs something quick. Still eating salads for dinner. C/o pain across his back and it shoots down his right leg. The muscles on the left side of his backbother him. Tizanidine helps him sleep. Was scheduled for injections in his back and the infection his leg flared up, happened twice that way. Has to get a hold of them to reschedule, was seeing Dr. Lewis. Is drinking two large bottles of water a day. Also drinking green tea. Over the past 2 weeks, how often have you been bothered by any of the following problems? Little interest or pleasure in doing things: Not at all Feeling down, depressed, or hopeless: Not at all Patient Health Questionnaire-2 Score: 0 Current Outpatient Medications on File Prior to Visit Medication Sig Dispense Refill amLODIPine (Norvasc) 5 MG tablet TAKE 1 TABLET BY MOUTH DAILY 100 tablet 3 Blood Glucose Monitoring Suppl (D-Care Glucometer) w/Device kit 1 each Daily Test glucose once a day. clobetasol (Temovate) 0.05 % ointment Apply 1 application topically in the morning and 1 application before bedtime. Continuous Glucose Sensor (FreeStyle Jalil 3 Plus Sensor) [facility] 1 each every 14 (fourteen) days 6 each 3 ergocalciferol (Vitamin D2) 1.25 MG (61980 UT) capsule TAKE 1 CAPSULE BY MOUTH ONCE A WEEK 12 capsule 3 furosemide (Lasix) 40 MG tablet Take 1 tablet (40 mg) by mouth Daily 30 tablet 5 glucose blood (FREESTYLE TEST STRIPS) test strip 1 each by Other route Daily Use as instructed HYDROcodone-acetaminophen (Tucumcari) 5-325 MG tablet Take 1 tablet by mouth 2 (two) times a day as needed insulin glargine-lixisenatide (Soliqua) 100-33 UNT-MCG/ML pen Inject 20 Units under the skin in themorning. Inject before meals. 6 mL 5 insulin pen needle (BD Pen Needle Mini Ultrafine) 31G x 5 mm misc Inject 1 each under the skin Daily Use as instructed 100 each 3 Lancets 30G misc 1 each Daily lisinopril 40 MG tablet Take 1 tablet (40 mg) by mouth Daily 90 tablet 3 meloxicam (Mobic) 15 MG tablet TAKE 1 TABLET BY MOUTH ONCE DAILY WITH FOOD 100 tablet 3 metFORMIN (Glucophage) 1000 MG tablet Take 0.5 tablets (500 mg) by mouth in the morning and 0.5 tablets (500 mg) in the evening. Take with meals. metoprolol succinate XL (Toprol-XL) 100 MG 24 hr tablet Take 1 tablet (100 mg) by mouth Daily 100 tablet 3 pioglitazone (Actos) 45 MG tablet TAKE 1 TABLET BY MOUTH ONCE DAILY 100 tablet 3 potassium chloride CR (Klor-Con M10) 10 MEQ ER tablet Take 1 tablet (10 mEq) by mouth Daily Do not crush or chew. 30 tablet 5 simvastatin (Zocor) 40 MG tablet TAKE 1 TABLET BY MOUTH EVERY EVENING 100 tablet 3 tiZANidine (Zanaflex) 4 MG tablet TAKE 1 TABLET BY MOUTH AT BEDTIME NEEDED 30 tablet 3 No current facility-administered medications on file prior to visit. I have reviewed and reconciled the history and medication list with the patient today. No Known Allergies Social History Tobacco Use Smoking status: Never Smokeless tobacco: Current Types: Snuff Vaping Use Vaping status: Never Used Substance Use Topics Alcohol use: Yes Alcohol/week: 2.0 standard drinks of alcohol Types: 2 Standard drinks or equivalent per week Comment: Caffeine intake: coffee, soda Drug use: Never Family History Problem Relation Name Age of Onset Cancer Sister Hyperlipidemia Other Past Medical History: Diagnosis Date Balanoposthitis 10/13/2022 Cholelithiasis 03/2019 Diabetes mellitus (HCC) History of being hospitalized 03/08/2024 Sepsis, Left Leg Cellulitis Hyperlipidemia Hypertension Obesity Squamous cell carcinoma of penis (HCC) 05/2022 Past Surgical History: Procedure Laterality Date CIRCUMCISION, PRIMARY 05/31/2022 PROSTATE BIOPSY TONSILLECTOMY 1970 Visit Vitals BP 142/72 (BP Location: Left arm) Pulse 82 Resp 16 Ht 6' 1 Wt (!) 411 lb SpO2 96% BMI 54.22 kg/m Smoking Status Never BSA 3.09 m Review of Systems Constitutional: Negative for chills, fatigue and fever. Respiratory: Negative for cough, shortness of breath and wheezing. Cardiovascular: Negative for chest pain, palpitations and leg swelling. Gastrointestinal: Negative for abdominal pain, constipation, diarrhea, nausea and vomiting. Skin: Negative for rash. Objective Physical Exam Constitutional: General: He is not in acute distress. Appearance: He is obese. HENT: Head: Normocephalic and atraumatic. Eyes: General: No scleral icterus. Cardiovascular: Rate and Rhythm: Normal rate and regular rhythm. Heart sounds: No murmur heard. Pulmonary: Effort: Pulmonary effort is normal. No respiratory distress. Breath sounds: Normal breath sounds. No wheezing, rhonchi or rales. Musculoskeletal: General: No swelling. Lumbar back: Positive right straight leg raise test (Back and hip pain). Negative left straight legraise test. Skin: General: Skin is warm and dry. Neurological: General: No focal deficit present. Mental Status: He is alert and oriented to person, place, and time. Psychiatric: Mood and Affect: Mood normal. Behavior: Behavior normal. Office Visit on 10/29/2024 Component Date Value Ref Range Status Hemoglobin A1C 10/29/2024 6.9 Final Assessment/Plan Diagnoses and all orders for this visit: Type 2 diabetes mellitus with hyperglycemia, with long-term current use of insulin ([facility]) - POCT Glycated hemoglobin, total Advised pt that his HgbA1c is significantly improved from 8.3 to 6.9 and is now considered controlled. Continue current medications. Will recheck in three months. Primary hypertension BP is much improved on recheck. Continue current medications as prescribed. Will continue to monitor. Morbid obesity ([facility]) Encouraged adequate protein intake. Continue to watch portion sizes. Stay hydrated. BMI 50.0-59.9, adult ([facility]) Encouraged pt to start some from of low impact exercise on a routine basis. Reviewed potential examples, foot pedals, resistance bands, small weights for his arms, arm circles. Advised these can helpget some of his strength back over time and should not aggravate his back/leg pain. Lumbar spondylosis Encouraged him to reach out to Pain Management, Dr. Lewis's office, to get rescheduled for the back injections. A decrease in his pain level would allow him to be more active. Follow up in about 3 months (around 01/29/2025) for Diabetes. documented in this encounterEx[facility] [id number] History of Present illness Narrative* MEGGAN Lopez - 08/29/2024 4:30 PM EDT Images from the original note were not included. Subjective Patient ID: Juan Bean is a 59 y.o. male who presents for Hypertension and Diabetes. Juan is present today for follow up diabetes. Denies foot ulcers, tingling/numbness in extremities. Did have one hypoglycemic episode, was able to manage it ok though. Does not check BS's at home. He is currently on Soliqua, Metformin, Pioglitazone. Pt sugars have been all over, average for 17 days is 160 pt states the previous medication he was on he has been taking when his sugars go high like up into 200 300. Has been eating hard boiled eggs, protein bars, low carb breakfast options, chef de partie salads. Does feel the CGM is helpful in knowing how foods affect his sugars. States his glucose does seem to go up during the night. Current Outpatient Medications on File Prior to Visit Medication Sig Dispense Refill amLODIPine (Norvasc) 5 MG tablet TAKE 1 TABLET BY MOUTH DAILY 100 tablet 3 Blood Glucose Monitoring Suppl (D-Care Glucometer) w/Device kit 1 each Daily Test glucose once a day. clobetasol (Temovate) 0.05 % ointment Apply 1 application topically in the morning and 1 application before bedtime. Continuous Glucose Sensor (FreeStyle Jalil 3 Plus Sensor) [facility] 1 each every 14 (fourteen) days 6 each 3 ergocalciferol (Vitamin D2) 1.25 MG (09623 UT) capsule TAKE 1 CAPSULE BY MOUTH once a week 12 capsule 3 furosemide (Lasix) 40 MG tablet Take 1 tablet (40 mg) by mouth Daily 30 tablet 5 glucose blood (FREESTYLE TEST STRIPS) test strip 1 each by Other route Daily Use as instructed HYDROcodone-acetaminophen (Tucumcari) 5-325 MG tablet Take 1 tablet by mouth 2 (two) times a day as needed insulin pen needle (BD Pen Needle Mini Ultrafine) 31G x 5 mm misc Inject 1 each under the skin Daily Use as instructed 100 each 3 Lancets 30G misc 1 each Daily lisinopril 40 MG tablet Take 1 tablet (40 mg) by mouth Daily 90 tablet 3 meloxicam (Mobic) 15 MG tablet TAKE 1 TABLET BY MOUTH ONCE DAILY WITH FOOD 100 tablet 3 metFORMIN (Glucophage) 1000 MG tablet Take 0.5 tablets (500 mg) by mouth in the morning and 0.5 tablets (500 mg) in the evening. Take with meals. metoprolol succinate XL (Toprol-XL) 100 MG 24 hr tablet Take 1 tablet (100 mg) by mouth Daily 100 tablet 3 pioglitazone (Actos) 45 MG tablet TAKE 1 TABLET BY MOUTH ONCE DAILY 100 tablet 3 potassium chloride CR (Klor-Con M10) 10 MEQ ER tablet Take 1 tablet (10 mEq) by mouth Daily Do not crush or chew. 30 tablet 5 simvastatin (Zocor) 40 MG tablet TAKE 1 TABLET BY MOUTH EVERY EVENING 100 tablet 3 tiZANidine (Zanaflex) 4 MG tablet TAKE 1 TABLET BY MOUTH AT BEDTIME NEEDED 30 tablet 3 [DISCONTINUED] Soliqua 100-33 UNT-MCG/ML pen INJECT 15 UNITS SUBCUTANEOUSLY (UNDER THE SKIN) IN THEMORNING. INJECT BEFORE MEALS 15 mL 2 No current facility-administered medications on file prior to visit. I have reviewed and reconciled the history and medication list with the patient today. No Known Allergies Social History Tobacco Use Smoking status: Never Smokeless tobacco: Current Types: Snuff Vaping Use Vaping status: Never Used Substance Use Topics Alcohol use: Yes Alcohol/week: 2.0 standard drinks of alcohol Types: 2 Standard drinks or equivalent per week Comment: Caffeine intake: coffee, soda Drug use: Never Family History Problem Relation Name Age of Onset Cancer Sister Hyperlipidemia Other Past Medical History: Diagnosis Date Balanoposthitis 10/13/2022 Cholelithiasis 03/2019 Diabetes mellitus (HCC) History of being hospitalized 03/08/2024 Sepsis, Left Leg Cellulitis Hyperlipidemia Hypertension Obesity Squamous cell carcinoma of penis (HCC) 05/2022 Past Surgical History: Procedure Laterality Date CIRCUMCISION, PRIMARY 05/31/2022 PROSTATE BIOPSY TONSILLECTOMY 1970 Visit Vitals BP 170/90 Pulse 82 Ht 6' 1 Wt (!) 404 lb SpO2 95% BMI 53.30 kg/m Smoking Status Never BSA 3.07 m Review of Systems Constitutional: Negative for chills, fatigue and fever. Respiratory: Negative for cough, shortness of breath and wheezing. Cardiovascular: Positive for leg swelling (Intermittent). Negative for chest pain and palpitations. Gastrointestinal: Negative for abdominal pain, constipation, diarrhea, nausea and vomiting. Musculoskeletal: Positive for back pain. Skin: Negative for rash. Objective Physical Exam Constitutional: General: He is not in acute distress. Appearance: He is obese. HENT: Head: Normocephalic and atraumatic. Eyes: General: No scleral icterus. Cardiovascular: Rate and Rhythm: Normal rate and regular rhythm. Heart sounds: No murmur heard. Pulmonary: Effort: Pulmonary effort is normal. No respiratory distress. Breath sounds: Normal breath sounds. No wheezing, rhonchi or rales. Musculoskeletal: General: No swelling. Comments: Stasis dermatitis bilateral lower legs Skin: General: Skin is warm and dry. Neurological: General: No focal deficit present. Mental Status: He is alert and oriented to person, place, and time. Psychiatric: Mood and Affect: Mood normal. Behavior: Behavior normal. Assessment/Plan Diagnoses and all orders for this visit: Hypertension due to endocrine disorder BP remains elevated on recheck. Pt has not been taking the Furosemide as he cannot get into and outof the boles during the mornings. He is agreeable to restarting the medication, taking it in the afternoon. Advised that will help his BP as well as help with any swelling. Encouraged him to monitor he BP at home periodically. Type 2 diabetes mellitus with hyperglycemia, with long-term current use of insulin (HCC) Patient's glucose readings have been improving with the Soliqua and he is tolerating the medicationwell. The CGM has been very helpful for the patient, and he continues to work on improving his diet. Discussed the hypoglycemic episode. Will have patient increase the Soliqua to 20 units daily. Continue to monitor glucose closely. Willrecheck HgbA1c in October, he can return sooner if needed. Goal will be to have patient on Soliqua only for DM management, and completely off of the Metforminand Actos. Morbid obesity ([facility]) Pt has lost 8 pounds since his labs appointment, which is excellent. Encouraged portion control, decrease simple sugars and carbohydrates, gradually increase activity level. Aim for continued, gradual steady weight loss. BMI 50.0-59.9, adult ([facility]) See above. Type 2 diabetes mellitus with other specified complication, with long-term current use of insulin ([facility]) - insulin glargine-lixisenatide (Soliqua) 100-33 UNT-MCG/ML pen; Inject 20 Units under the skin in the morning. Inject before meals. See above. Follow up in about 2 months (around 11/01/2024) for Diabetes. documented in this encounterEx[facility] [id number] History of Present illness Narrative* MEGGAN Lopez - 08/01/2024 5:00 PM EDT Images from the original note were not included. HPI Hypertension Additional comments: Denies chest pain, SOB, blurry vision, headaches. Does not check BP's at home.At last o/v stopped Lisinopril/hydrochlorothiazide and started Lisinopril 40 mg and Furosemide 40 mg. He is also on Metoprolol and Amlodipine. Med Refill Additional comments: Lisinopril - has been out of this for 3 -4 days. Last edited by Amparo Nash LPN on 08/01/2024 4:58 PM. Subjective Patient ID: Juan Bean is a 59 y.o. male who presents for diabetes. Juan is present today for follow up diabetes. Denies foot ulcers, tingling/numbness in extremities. Admits 1 time of hypoglycemia. Does not check BS's at home. He is currently on Glimepiride, Metformin, Pioglitazone. Not eating much, but still gaining weight. States has a $6000 deductible for medication. Weight gain is making his back hurt more. Requesting handicap placard Will be getting the lymphedema pumps this week. Current Outpatient Medications on File Prior to Visit Medication Sig Dispense Refill amLODIPine (Norvasc) 5 MG tablet TAKE 1 TABLET BY MOUTH DAILY 100 tablet 3 Blood Glucose Monitoring Suppl (D-Care Glucometer) w/Device kit 1 each Daily Test glucose once a day. clobetasol (Temovate) 0.05 % ointment Apply 1 application topically in the morning and 1 application before bedtime. ergocalciferol (Vitamin D2) 1.25 MG (41738 UT) capsule TAKE 1 CAPSULE BY MOUTH once a week 12 capsule 3 furosemide (Lasix) 40 MG tablet Take 1 tablet (40 mg) by mouth Daily 30 tablet 5 glucose blood (FREESTYLE TEST STRIPS) test strip 1 each by Other route Daily Use as instructed HYDROcodone-acetaminophen (Tucumcari) 5-325 MG tablet Take 1 tablet by mouth 2 (two) times a day as needed Lancets 30G misc 1 each Daily meloxicam (Mobic) 15 MG tablet TAKE 1 TABLET BY MOUTH ONCE DAILY WITH FOOD 100 tablet 3 metoprolol succinate XL (Toprol-XL) 100 MG 24 hr tablet Take 1 tablet (100 mg) by mouth Daily 100 tablet 3 pioglitazone (Actos) 45 MG tablet TAKE 1 TABLET BY MOUTH ONCE DAILY 100 tablet 3 potassium chloride CR (Klor-Con M10) 10 MEQ ER tablet Take 1 tablet (10 mEq) by mouth Daily Do not crush or chew. 30 tablet 5 simvastatin (Zocor) 40 MG tablet TAKE 1 TABLET BY MOUTH EVERY EVENING 100 tablet 3 tiZANidine (Zanaflex) 4 MG tablet TAKE 1 TABLET BY MOUTH AT BEDTIME NEEDED 30 tablet 3 [DISCONTINUED] glimepiride (Amaryl) 4 MG tablet TAKE 1 TABLET BY MOUTH TWICE DAILY WITH A MEAL 200 tablet 3 [DISCONTINUED] lisinopril 40 MG tablet Take 1 tablet (40 mg) by mouth Daily [DISCONTINUED] metFORMIN (Glucophage) 1000 MG tablet TAKE 1 TABLET BY MOUTH TWICE DAILY WITH MEALS 200 tablet 3 No current facility-administered medications on file prior to visit. I have reviewed and reconciled the history and medication list with the patient today. No Known Allergies Social History Tobacco Use Smoking status: Never Smokeless tobacco: Current Types: Snuff Vaping Use Vaping status: Never Used Substance Use Topics Alcohol use: Yes Alcohol/week: 2.0 standard drinks of alcohol Types: 2 Standard drinks or equivalent per week Comment: Caffeine intake: coffee, soda Drug use: Never Family History Problem Relation Name Age of Onset Cancer Sister Hyperlipidemia Other Past Medical History: Diagnosis Date Balanoposthitis 10/13/2022 Cholelithiasis 03/2019 Diabetes mellitus ([facility]) History of being hospitalized 03/08/2024 Sepsis, Left Leg Cellulitis Hyperlipidemia ([facility]) Hypertension ([facility]) Obesity Squamous cell carcinoma of penis ([facility]) 05/2022 Past Surgical History: Procedure Laterality Date CIRCUMCISION, PRIMARY 05/31/2022 PROSTATE BIOPSY TONSILLECTOMY 1970 Visit Vitals BP 176/78 Pulse 83 Resp 16 Ht 6' 1 Wt (!) 412 lb 6.4 oz SpO2 98% BMI 54.41 kg/m Smoking Status Never BSA 3.1 m Review of Systems Constitutional: Positive for unexpected weight change. Negative for chills, fatigue and fever. Respiratory: Negative for cough, shortness of breath and wheezing. Cardiovascular: Negative for chest pain, palpitations and leg swelling. Gastrointestinal: Negative for abdominal pain, constipation, diarrhea, nausea and vomiting. Musculoskeletal: Positive for back pain. Skin: Negative for rash. Objective Physical Exam Constitutional: General: He is not in acute distress. Appearance: He is obese. HENT: Head: Normocephalic and atraumatic. Eyes: General: No scleral icterus. Cardiovascular: Rate and Rhythm: Normal rate and regular rhythm. Heart sounds: No murmur heard. Pulmonary: Effort: Pulmonary effort is normal. No respiratory distress. Breath sounds: Normal breath sounds. No wheezing, rhonchi or rales. Musculoskeletal: Comments: Compression stockings in place today. Difficulty going from seated to standing position Skin: General: Skin is warm and dry. Neurological: General: No focal deficit present. Mental Status: He is alert and oriented to person, place, and time. Gait: Gait abnormal (Broad based). Psychiatric: Mood and Affect: Mood normal. Behavior: Behavior normal. Office Visit on 08/01/2024 Component Date Value Ref Range Status Hemoglobin A1C 08/01/2024 8.3 Final Assessment/Plan Diagnoses and all orders for this visit: Type 2 diabetes mellitus with other specified complication, with long-term current use of insulin - POCT Glycated hemoglobin, total - Continuous Glucose Sensor (FreeStyle Jalil 3 Plus Sensor) misc; 1 each every 14 (fourteen) days - metFORMIN (Glucophage) 1000 MG tablet; Take 0.5 tablets (500 mg) by mouth in the morning and 0.5 tablets (500 mg) in the evening. Take with meals. - insulin pen needle (BD Pen Needle Mini Ultrafine) 31G x 5 mm misc; Inject 1 each under the skin Daily Use as instructed Advised pt that his HgbA1c increased from 7.8 to 8.3. Patient's insurance coverage does limit what patient is able to take. Provided pt with Soliqua samples and will have patient start it at 15 unitsdaily. Reviewed how the medication works in the body. Patient is seen for [id number] encounter today and has a current diagnosis of Diabetes. It is medically necessary for patient to have a continuous glucose monitor (CGM) due to current medications and required frequency of testing. It is medically necessary for patient to test glucose levels 3 or more times a day for proper management. Patient (or caregiver) has been sufficiently trained on the CGM system's use. The CGM is being prescribed in accordance with the FDA's indications for use of the system. The CGM will be used to improve glycemic control for the patient and to help prevent problematic hypoglycemic episodes which can lead to increased ER utilization or even . Will continueto monitor the patient routinely to assess benefit and compliance with use of the CGM. Will also monitor HgbA1c routinely. Due to potential for hypoglycemia with insulin use, will have patient stop Glimepiride at this time. Will also have him decrease his Metformin to 500 mg BID. Goal would be to gradually stop oral medications and use injectable only. Will see him back in one month to see how his sugars are progressing with the above medication changes. Hypertension due to endocrine disorder ([facility]) - lisinopril 40 MG tablet; Take 1 tablet (40 mg) by mouth Daily Encouraged pt in the future to contact the office if he is going to be out of medication, and not wait until his next appointment to request a refill. He voices understanding. Stressed importance of good BP control. Continue Lisinopril, Metoprolol, Amlodipine, and Furosemide as prescribed. Lymphedema Compression stockings have been helpful and will be receiving the lymphedema boots this week. Will continue to monitor. Lumbar spondylosis - Handicap Placard 5 Years Provided pt with handicap placard due to worsening back pain. Patient understands that his back pain is likely getting worse due to his continued weight gain. Type 2 diabetes mellitus with hyperglycemia, with long-term current use of insulin ([facility]) Encouraged him to continue to aim for healthy diet. Limit simple sugars. Intake adequate protein. Stay hydrated. Morbid obesity ([facility]) Pt has gained 11 pounds since his last appointment. Encouraged pt to aim for gradual weight loss. BMI 50.0-59.9, adult ([facility]) See above. Follow up in about 4 weeks (around 08/29/2024) for Diabetes, Hypertension. documented in this encounterExcelsior Springs Medical [id number] History of Present illness Narrative* MEGGAN Lopez - 05/09/2024 5:00 PM EST Images from the original note were not included. HPI Leg Swelling Additional comments: Left leg is still swollen, red, tender to the touch, shooting pain along the calf area off/on but does have back issues so states that could be from that. He will be done with the ATB tonight, He is not sure if he finished it or if he still has one more to take tonight. Does feel his leg may be slightly improved. Last edited by Amparo Nash LPN on 05/09/2024 4:50 PM. Subjective Patient ID: Juan Bean is a 59 y.o. male who presents for hypertension. Juan is present today for follow up hypertension. Denies chest pain, SOB, blurry vision, headaches. Does not check BP's at home. At last o/v his metoprolol was increased, changed Lisinopril to at night, Lisinpril- hydrochlorothiazide to in the am and amlodipine daily. Is eating Activia yogurt. Current Outpatient Medications on File Prior to Visit Medication Sig Dispense Refill tiZANidine (Zanaflex) 4 MG tablet TAKE 1 TABLET BY MOUTH AT BEDTIME NEEDED 30 tablet 3 amLODIPine (Norvasc) 5 MG tablet TAKE 1 TABLET BY MOUTH DAILY 100 tablet 3 Blood Glucose Monitoring Suppl (D-Care Glucometer) w/Device kit 1 each Daily Test glucose once a day. clobetasol (Temovate) 0.05 % ointment Apply 1 application topically in the morning and 1 application before bedtime. ergocalciferol (Vitamin D2) 1.25 MG (34464 UT) capsule TAKE 1 CAPSULE BY MOUTH once a week 12 capsule 3 glimepiride (Amaryl) 4 MG tablet Take 1 tablet (4 mg) by mouth in the morning. glucose blood (FREESTYLE TEST STRIPS) test strip 1 each by Other route Daily Use as instructed HYDROcodone-acetaminophen (T[place]umcari) 5-325 MG tablet Take 1 tablet by mouth 2 (two) times a day as needed Lancets 30G misc 1 each Daily meloxicam (Mobic) 15 MG tablet TAKE 1 TABLET BY MOUTH ONCE DAILY WITH FOOD 100 tablet 3 metFORMIN (Glucophage) 1000 MG tablet Take 1 tablet (1,000 mg) by mouth in the morning and 1 tablet(1,000 mg) in the evening. Take with meals. metoprolol succinate XL (Toprol-XL) 100 MG 24 hr tablet Take 1 tablet (100 mg) by mouth Daily 100 tablet 3 pioglitazone (Actos) 45 MG tablet Take 1 tablet (45 mg) by mouth Daily simvastatin (Zocor) 40 MG tablet TAKE 1 TABLET BY MOUTH EVERY EVENING 100 tablet 3 [DISCONTINUED] doxycycline (Vibramycin) 100 MG capsule Take 1 capsule (100 mg) by mouth in the morning and 1 capsule (100 mg) before bedtime. Do all this for 10 days. Take with at least 8 ounces (large glass) of water, do not lie down for 30 minutes after. 20 capsule 0 [DISCONTINUED] lisinopril 20 MG tablet Take 1 tablet (20 mg) by mouth at bedtime [DISCONTINUED] lisinopril-hydroCHLOROthiazide 20-25 MG tablet Take 1 tablet by mouth Daily 90 tablet 3 [DISCONTINUED] metOLazone (Zaroxolyn) 5 MG tablet Take 1 tablet (5 mg) by mouth Daily for 5 days 5 tablet 0 [DISCONTINUED] potassium chloride CR (Klor-Con M10) 10 MEQ ER tablet Take 1 tablet (10 mEq) by mouth Daily for 7 days Do not crush or chew. 7 tablet 0 No current facility-administered medications on [...] Hyperlipidemia Other Past Medical History: Diagnosis Date Balanoposthitis 10/13/2022 Cholelithiasis 03/2019 Diabetes mellitus ([facility]) History of being hospitalized 03/08/2024 Sepsis, Left Leg Cellulitis Hyperlipidemia (CMS/HCC) Hypertension (CMS/HCC) Obesity Squamous cell carcinoma of penis ([facility]) 05/2022 Past Surgical History: Procedure Laterality Date CIRCUMCISION, PRIMARY 05/31/2022 PROSTATE BIOPSY TONSILLECTOMY 1970 Visit Vitals BP 158/82 (BP Location: Left arm) Pulse 71 Resp 18 Ht 6' 1 Wt (!) 401 lb 3.2 oz SpO2 98% BMI 52.93 kg/m Smoking Status Never BSA 3.06 m Review of Systems Constitutional: Negative for chills, fatigue and fever. Respiratory: Negative for cough, shortness of breath and wheezing. Cardiovascular: Positive for leg swelling. Negative for chest pain and palpitations. Gastrointestinal: Negative for abdominal pain, constipation, diarrhea, nausea and vomiting. Musculoskeletal: Positive for back pain. Skin: Positive for rash. Objective Physical Exam Constitutional: General: He is not in acute distress. Appearance: Normal appearance. He is obese. HENT: Head: Normocephalic and atraumatic. Eyes: General: No scleral icterus. Cardiovascular: Rate and Rhythm: Normal rate and regular rhythm. Heart sounds: No murmur heard. Pulmonary: Effort: Pulmonary effort is normal. No respiratory distress. Breath sounds: Normal breath sounds. No wheezing, rhonchi or rales. Musculoskeletal: General: No swelling. Right lower leg: Edema present. Left lower leg: Tenderness present. Pitting Edema present. Comments: Left lower leg with moderate erythema, mildly increased warmth to touch. Right lower leg with Stasis Dermatitis. Skin: General: Skin is warm and dry. Neurological: General: No focal deficit present. Mental Status: He is alert and oriented to person, place, and time. Psychiatric: Mood and Affect: Mood normal. Behavior: Behavior normal. Assessment/Plan Diagnoses and all orders for this visit: Type 2 diabetes mellitus with hyperglycemia, without long-term current use of insulin ([facility]) - Microalbumin / creatinine, urine ratio; Future - Comprehensive metabolic panel; Future - CBC and differential - Lipid panel Ordered updated lab work for the patient to have drawn prior to his next appointment. Patient's insurance coverage for diabetic medications is limited and most are too expensive for himto take, including GLP and GLP/GIP class medications. When his HgbA1c is checked next, could consider adding on Farxiga if needed at that time. Morbid obesity ([facility]) Encouraged portion control, decrease simple sugars and carbohydrates, gradually increase activity level. Aim for gradual steady weight loss. BMI 50.0-59.9, adult ([facility]) See above. Hypertension due to endocrine disorder ([facility]) - CBC and differential - Lipid panel - furosemide (Lasix) 40 MG tablet; Take 1 tablet (40 mg) by mouth Daily - lisinopril 40 MG tablet; Take 1 tablet (40 mg) by mouth Daily Stop the Lisinopril/hydrochlorothiazide. Take Lisinopril 40 mg daily. Add Furosemide 40 mg daily. With addition of the Furosemide, will have him continue Potasium supplement daily. Increase water intake. Does have a BP cuff at home, not set up yet, but is planning to do so. Encouraged him to start monitoring his BP periodically at home. Cellulitis of left lower leg - doxycycline (Vibramycin) 100 MG capsule; Take 1 capsule (100 mg) by mouth in the morning and 1 capsule (100 mg) before bedtime. Do all this for 10 days. Take with at least 8 ounces (large glass) ofwater, do not lie down for 30 minutes after. - CBC and differential It has improved slightly from last visit. Continue Doxycycline as prescribed. Continue probiotics daily. Lymphedema - Ambulatory referral to Physical Therapy; Future Provided pt with referral to the Lymphedema Clinic. Patient would likely benefit greatly from lymphedema boots he could use at home after work. Pitting edema - potassium chloride CR (Klor-Con M10) 10 MEQ ER tablet; Take 1 tablet (10 mEq) by mouth Daily Do not crush or chew. - Ambulatory referral to Physical Therapy; Future Continue potassium as prescribed. Furosemide. Elevate legs when possible. Move legs often if sitting for extended periods of time to stimulate blood flow. Levoscoliosis of lumbar spine Patient is following with a Chiropractor. He has seen Pain Management in the past, and they were going to do injections for his back, but he kept getting the cellulitis and they cancelled the procedure. Follow up in about 4 weeks (around 06/06/2024) for Hypertension, Diabetes. documented in this encounterExcelsior Springs Medical [id number] History of Present illness Narrative* MEGGAN Lopez - 04/26/2024 2:00 PM EST Images from the original note were not included. HPI Med Refill Additional comments: Metoprolol Hypertension Additional comments: Denies chest pain, SOB, blurry vision, headaches. At his last o/v his Metoprolol was increased. He has not been checking his BP's at home. Last edited by Amparo Nash LPN on 04/26/2024 2:09 PM. Subjective Patient ID: Juan Bean is a 59 y.o. male who presents for possible cellulitis. Juan is present today for evaluation of possible cellulitis. Admits left leg red, 4+ pitting edema, tenderness, warm to the touch last night, a few open sores on it. This has been ongoing since March and he keeps being put on ATB's and never really seems to heal. He is still on the Cephalexin and thinks he will be done with it on Tuesday. Did see his Chiropractor today. Did find it helpful for his back. Current Outpatient Medications on File Prior to Visit Medication Sig Dispense Refill tiZANidine (Zanaflex) 4 MG tablet TAKE 1 TABLET BY MOUTH AT BEDTIME NEEDED 30 tablet 3 amLODIPine (Norvasc) 5 MG tablet TAKE 1 TABLET BY MOUTH DAILY 100 tablet 3 Blood Glucose Monitoring Suppl (D-Care Glucometer) w/Device kit 1 each Daily Test glucose once a day. clobetasol (Temovate) 0.05 % ointment Apply 1 application topically in the morning and 1 application before bedtime. ergocalciferol (Vitamin D2) 1.25 MG (55530 UT) capsule TAKE 1 CAPSULE BY MOUTH once a week 12 capsule 3 glimepiride (Amaryl) 4 MG tablet Take 1 tablet (4 mg) by mouth in the morning. glucose blood (FREESTYLE TEST STRIPS) test strip 1 each by Other route Daily Use as instructed HYDROcodone-acetaminophen (Tucumcari) 5-325 MG tablet Take 1 tablet by mouth 2 (two) times a day as needed Lancets 30G misc 1 each Daily lisinopril 20 MG tablet Take 1 tablet (20 mg) by mouth at bedtime lisinopril-hydroCHLOROthiazide 20-25 MG tablet Take 1 tablet by mouth Daily 90 tablet 3 meloxicam (Mobic) 15 MG tablet TAKE 1 TABLET BY MOUTH ONCE DAILY WITH FOOD 100 tablet 3 metFORMIN (Glucophage) 1000 MG tablet Take 1 tablet (1,000 mg) by mouth in the morning and 1 tablet(1,000 mg) in the evening. Take with meals. metoprolol succinate XL (Toprol-XL) 100 MG 24 hr tablet Take 1 tablet (100 mg) by mouth Daily 100 tablet 3 pioglitazone (Actos) 45 MG tablet Take 1 tablet (45 mg) by mouth Daily simvastatin (Zocor) 40 MG tablet TAKE 1 TABLET BY MOUTH EVERY EVENING 100 tablet 3 [DISCONTINUED] cephalexin (Keflex) 500 MG capsule Take 1 capsule (500 mg) by mouth in the morning and 1 capsule (500 mg) in the evening and 1 capsule (500 mg) before bedtime. Do all this for 10 days.30 capsule 0 [DISCONTINUED] levoFLOXacin (Levaquin) 500 MG tablet Take 1 tablet by mouth Daily [DISCONTINUED] metoprolol succinate XL (Toprol-XL) 100 MG 24 hr tablet Take 1 tablet (100 mg) by mouth Daily [DISCONTINUED] Syringe 23G X 1 3 ML misc Inject 1 each into the shoulder, thigh, or buttocks every14 (fourteen) days 6 each 1 [DISCONTINUED] testosterone cypionate (Depo-Testosterone) 100 MG/ML injection Inject 1 mL (100 mg) into the shoulder, thigh, or buttocks every 14 (fourteen) days (Patient not taking: Reported on 04/04/2024) 2 mL 2 No current facility-administered medications on file prior [...] Hyperlipidemia Other Past Medical History: Diagnosis Date Balanoposthitis 10/13/2022 Cholelithiasis 03/2019 Diabetes mellitus (CMS/HCC) History of being hospitalized 03/08/2024 Sepsis, Left Leg Cellulitis Hyperlipidemia (CMS/HCC) Hypertension (CMS/HCC) Obesity Squamous cell carcinoma of penis (CMS/HCC) 05/2022 Past Surgical History: Procedure Laterality Date CIRCUMCISION, PRIMARY 05/31/2022 PROSTATE BIOPSY TONSILLECTOMY 1970 Visit Vitals BP 162/88 (BP Location: Left arm) Pulse 91 Temp 98.6 F Resp 16 Ht 6' 1 Wt 398 lb 9.6 oz SpO2 96% BMI 52.59 kg/m Smoking Status Never BSA 3.05 m Review of Systems Constitutional: Negative for chills, fatigue and fever. Respiratory: Negative for cough, shortness of breath and wheezing. Cardiovascular: Positive for leg swelling. Negative for chest pain and palpitations. Gastrointestinal: Negative for abdominal pain, constipation, diarrhea, nausea and vomiting. Musculoskeletal: Positive for back pain. Skin: Positive for rash. Neurological: Positive for numbness (RIght anterior thigh). Objective Physical Exam Constitutional: General: He is not in acute distress. Appearance: He is obese. HENT: Head: Normocephalic and atraumatic. Eyes: General: No scleral icterus. Cardiovascular: Rate and Rhythm: Normal rate and regular rhythm. Heart sounds: No murmur heard. Pulmonary: Effort: Pulmonary effort is normal. No respiratory distress. Breath sounds: Normal breath sounds. No wheezing, rhonchi or rales. Musculoskeletal: General: Swelling present. Right lower leg: Edema present. Left lower leg: Tenderness present. Pitting Edema present. Comments: Left lower leg with significant erythema, mildly increased warmth to touch Skin: General: Skin is warm and dry. Neurological: General: No focal deficit present. Mental Status: He is alert and oriented to person, place, and time. Psychiatric: Mood and Affect: Mood normal. Behavior: Behavior normal. Assessment/Plan Diagnoses and all orders for this visit: 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) BP is mildly improved on recheck, but remains elevated. He is working on getting a cuff to monitor his BP at home. He is on multiple medications without adequate BP control. He admits he had multiplecups of coffee today, has been rushing around, and does have active leg infection. Will see him back as scheduled in May. If BP not improved, will need to address possible further work up, and/or referral to Cardiology. Cellulitis of left lower leg - doxycycline (Vibramycin) 100 MG capsule; Take 1 capsule (100 mg) by mouth in the morning and 1 capsule (100 mg) before bedtime. Do all this for 10 days. Take with at least 8 ounces (large glass) ofwater, do not lie down for 30 minutes after. Keflex not effective for patient. Start Doxycycline as prescribed. Encouraged pt to make sure he continues to eat yogurt with active cultures, or take a probiotic daily. ER if symptoms worsen. Pitting edema - metOLazone (Zaroxolyn) 5 MG tablet; Take 1 tablet (5 mg) by mouth Daily for 5 days - potassium chloride CR (Klor-Con M10) 10 MEQ ER tablet; Take 1 tablet (10 mEq) by mouth Daily for 7 days Do not crush or chew. Will do short burst of Metolazone to try to remove some of the excess fluid in his legs. Potassium as prescribed to prevent hypokalemia with the diuretic. Elevate legs when possible. If this does notimprove, will likely due a trial without the Amlodipine to make sure that is not worsening this condition. May need further work up. Lumbar spondylosis Pt is going to a Chiropractor with improvement in symptoms. Patient is seeing Pain Management. His symptoms are causing weakness in his legs. Spinal stenosis of lumbar region May need referral to presidential support specialist. Need to get current infection and his BP under control priorto doing any more to pursue additional treatment for his back. He voiced understanding. Follow up for Appointment As Scheduled. documented in this encounterNOMineral Area Regional Medical [id number] Telephone encounter Note* Telephone Encounter - Chioma Webb - 04/10/2024 9:00 AM EST Patient was recently seen by carolyn. He called stating that his leg is getting slightly more red. Heis going to be running out of antibiotics by the weekend. He didn't know if he should need more antibiotics or what he should do next for this. [facility] [id number] Miscellaneous Notes* Telephone Encounter - Chioma Webb - 04/10/2024 9:00 AM EST Patient was recently seen by carolyn. He called stating that his leg is getting slightly more red. Heis going to be running out of antibiotics by the weekend. He didn't know if he should need more antibiotics or what he should do next for this. documented in this encounterExcelsior Springs Medical [id number] History of Present illness Narrative* MEGGAN Lopez - 04/04/2024 5:00 PM EST Images from the original note were not included. HPI Med Refill Additional comments: Lisinopril-HCTZ Last edited by Amparo Nash LPN on 04/04/2024 4:41 PM. Subjective Patient ID: Juan Bean is a 59 y.o. male who presents for diabetes. Juan is present today for follow up diabetes. Denies foot ulcers, hypoglycemia. Admits tingling/numbness in extremities. Does not check BS at home. Currently on Glimpiride, Metformin, Pioglitazone. Did get a BP cuff at home. So is going to start watching it at home. Started an antibiotic for his leg yesterday. The wounds have healed, but it started getting really red again. Drinks mostly green tea, doesn't drink much water. Drinks a bottle of flavored water every day. Thinks the tea may have caffeine. Does drink premiere protein shakes, drank one yesterday and one today. Current Outpatient Medications on File Prior to Visit Medication Sig Dispense Refill clobetasol (Temovate) 0.05 % ointment Apply 1 application topically in the morning and 1 application before bedtime. levoFLOXacin (Levaquin) 500 MG tablet Take 1 tablet by mouth Daily tiZANidine (Zanaflex) 4 MG tablet TAKE 1 TABLET BY MOUTH AT BEDTIME NEEDED 30 tablet 3 amLODIPine (Norvasc) 5 MG tablet TAKE 1 TABLET BY MOUTH DAILY 100 tablet 3 Blood Glucose Monitoring Suppl (D-Care Glucometer) w/Device kit 1 each Daily Test glucose once a day. ergocalciferol (Vitamin D2) 1.25 MG (85318 UT) capsule TAKE 1 CAPSULE BY MOUTH once a week 12 capsule 3 glimepiride (Amaryl) 4 MG tablet Take 1 tablet (4 mg) by mouth in the morning. glucose blood (FREESTYLE TEST STRIPS) test strip 1 each by Other route Daily Use as instructed HYDROcodone-acetaminophen (Tucumcari) 5-325 MG tablet Take 1 tablet by mouth 2 (two) times a day as needed Lancets 30G misc 1 each Daily meloxicam (Mobic) 15 MG tablet TAKE 1 TABLET BY MOUTH ONCE DAILY WITH FOOD 100 tablet 3 metFORMIN (Glucophage) 1000 MG tablet Take 1 tablet (1,000 mg) by mouth in the morning and 1 tablet(1,000 mg) in the evening. Take with meals. pioglitazone (Actos) 45 MG tablet Take 1 [...] thigh, or buttocks every 14 (fourteen) days (Patient not taking: Reported on 04/04/2024) 2 mL 2 [DISCONTINUED] amoxicillin-clavulanate (Augmentin) 875-125 MG tablet Take 1 tablet (875 mg) by mouth every 12 (twelve) hours for 7 days 14 tablet 0 [DISCONTINUED] lisinopril-hydroCHLOROthiazide 20-25 MG tablet TAKE 1 TABLET BY MOUTH ONCE DAILY 100tablet 3 [DISCONTINUED] metoprolol succinate XL (Toprol-XL) 50 MG 24 hr tablet TAKE 1 TABLET BY MOUTH DAILY 100 tablet 3 [DISCONTINUED] omega-3 (Fish Oil) 1000 MG capsule Take 1 capsule by mouth 1 (one) time each day at the same time. No current facility-administered medications on file prior [...] Hyperlipidemia Other Past Medical History: Diagnosis Date Balanoposthitis 10/13/2022 Cholelithiasis 03/2019 Diabetes mellitus ([facility]/HCC) History of being hospitalized 03/08/2024 Sepsis, Left Leg Cellulitis Hyperlipidemia (CMS/HCC) Hypertension (CMS/HCC) Obesity Squamous cell carcinoma of penis (CMS/HCC) 05/2022 Past Surgical History: Procedure Laterality Date CIRCUMCISION, PRIMARY 05/31/2022 PROSTATE BIOPSY TONSILLECTOMY 1970 Visit Vitals BP (!) 178/96 Pulse 89 Resp 16 Ht 6' 1 Wt 387 lb 12.8 oz SpO2 96% BMI 51.16 kg/m Smoking Status Never BSA 3.01 m Review of Systems Constitutional: Negative for chills, fatigue and fever. Respiratory: Negative for cough, shortness of breath and wheezing. Cardiovascular: Negative for chest pain, palpitations and leg swelling. Gastrointestinal: Negative for abdominal pain, constipation, diarrhea, nausea and vomiting. Skin: Positive for rash (Erythema Lt lower leg). Objective Physical Exam Constitutional: General: He is not in acute distress. Appearance: He is obese. HENT: Head: Normocephalic and atraumatic. Eyes: General: No scleral icterus. Cardiovascular: Rate and Rhythm: Normal rate and regular rhythm. Heart sounds: No murmur heard. Pulmonary: Effort: Pulmonary effort is normal. No respiratory distress. Breath sounds: Normal breath sounds. No wheezing, rhonchi or rales. Musculoskeletal: General: No swelling. Skin: General: Skin is warm and dry. Findings: Erythema present. Comments: Left lower leg with significant erythema, increased warmth to touch Neurological: General: No focal deficit present. Mental Status: He is alert and oriented to person, place, and time. Psychiatric: Mood and Affect: Mood normal. Behavior: Behavior normal. Office Visit on 04/04/2024 Component Date Value Ref Range Status Hemoglobin A1C 04/04/2024 7.8 Final Assessment/Plan Diagnoses and all orders for this visit: Type 2 diabetes mellitus with other specified complication, without long-term current use of insulin ([facility]) - POCT Glycated hemoglobin, total Advised pt that his HgbA1c has increased from 7.3 to 7.8. Possibly increased due to recent infections and being less active. Medication coverage through pt's insurance does limit treatment options. Will recheck in three months. Contact office sooner if glucose increases at home. 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) - lisinopril 20 MG tablet; Take 1 tablet (20 mg) by mouth at bedtime - metoprolol succinate XL (Toprol-XL) 100 MG 24 hr tablet; Take 1 tablet (100 mg) by mouth Daily - lisinopril-hydroCHLOROthiazide 20-25 MG tablet; Take 1 tablet by mouth Daily BP markedly elevated today. Will increase the Metoprolol to 100 mg daily. Monitor for any dizzinessor increased fatigue. Continue Amlodipine once a day, Lisinopril at night, Lisinopril/hydrochlorothiazide in the morning. Cellulitis of left lower leg Continue Levaquin as prescribed. Elevate leg when possible. Contact office if does not improve. Is set to RTW full duty on 04/08/2024. Will instead have him RTW light duty for the month of Feburary. Morbid obesity (CMS/HCC) Reviewed diet modification. Encouraged smaller more frequent meals. Make sure to get adequate protein in diet. There have been some days he barely eats at all. Discouraged this and reviewed lower glycemic foods. Aim for gradual weight loss. BMI 50.0-59.9, adult (CMS/HCC) See above. Mild tricuspid regurgitation ECHO done on 03/07/2024 showed mild tricuspid regurgitation, EF was 65-70%. Follow up in about 4 weeks (around 05/02/2024) for Hypertension. documented in this encounterExcelsior Springs Medical [id number] Progress note Author Carolyn Bautista [facility] HospitalNote Date/TimeJanuary 2024 2:12pm [place] [address] Wound Center Provider Note Signed Patient: Juan Bean JR MR#: [id number] : 1965 Acct:[id number] Age/Sex: 59 / M Copies to: SHAHZAD Thurston PA-C~ HPI Date of Visit Date of Visit: Date of Service: 04/02/2024 Time of Service: 14:09 Narrative HPI: 03/19/2024-Juan is a 59-year-old male who presents to [facility] wound center for evaluation and treatment of ulcers to the left lower leg and left dorsal foot. Patient was recently admitted here at [facility] due to cellulitis of the left lower extremity and bacteremia. Patient was treated with Teflaro IV while inpatient, switched to oral Augmentin at time of discharge per Dr. Navarro's recommendations. Patient remains on Augmentin at this time. Patient is accompanied to his visit today byhis daughter who has been assisting with care and performingdressing changes. Upon exam, lymphedema and venous stasis skin changes are present. Patient has been utilizing an Ten wrap with dressings to control edema, as well as elevatinghis legs throughout theday. Ulcers to the left lower anterior leg and left dorsal foot originally began as blisters in conjunction with the cellulitis. Both blisters have unroofed with partial-thickness skin loss present at today's visit, each comprised of red, moist tissue. Venous stasis dermatitis is noted to the entire left lower extremity, we will initiate clobetasol topically to assist with this- Rx sent to pharmacy. Will plan to apply Xeroform to open wounds and top with a superabsorber for drainage control, wewill continue to utilize Ten wrap's to assist with edema. Patient's daughter reports she is comfortable continuing to change the dressings daily. No acute s/s of infection are noted at today's visit-no periwound erythema, no increased warmth, no purulence, no malodor, no induration, no N/V/D, no fever or chills reported. Encouraged patient to continue course of Augmentin as prescribed- patient ve rbalized understanding. We will see the patient back in the clinic in 2 weeks. 04/02/2024- Mr. Bean presents to [facility] [place] [facility] for follow up evaluation and treatment of LLE ulceration. Upon exam, ulcers are healed at today's visit and previously noted dermatitis is resolved. However, there is some notable erythemaand increased warmth to the lateral aspect of the LLE that extends to the calf region. Patient does endorse pain to this area as well. Patient denies any fever, chills, N/V/D, or shortness of breath. This clinician ordered a STAT venous duplex to r/o DVT. Should the ultrasound be negative, I will likely startantibiotic therapy given the patient's history of recurrent cellulitis based upon exam findings or +erythema and icnreased warmth today. We will hold compression at this time until results for the venous duplex result. Patient waswheeled down to ultrasound by our office. I also ordered a full functional venous study today as well d/t patient's chronic edema and varicosities, will refer to vascular if necessary based upon results. 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 Chewing tobacco use History of gout Pain in right leg Scoliosis deformity of spine Back pain Phimosis Cholelithiasis HTN (hypertension) Hyperlipemia Diabetes type 2 Surgical History History of tonsillectomy Family History Mother Myocardial infarction Keri Gehrig disease Father Myocardial infarction Renal disease Sister Cancer Father Hypertension Father Hypertension Kidney failure Family/Other Family history of other condition Legacy FamHx Problem: SISTER FROM CANCER-NOT SURE WHAT KIND IT WAS Mother Diabetes Type 2 diabetes mellitus Legacy FamHx Problem: DM2 Sister Brother Diabetes Social History Smoking Status: Former smoker Tobacco Type: cigarettes Substance Use Type: None Social History Comments: adult son stays with patient Grafts History of Graft History of Graft?: No Exam Physical Exam Vital Signs: Temp Pulse Resp BP O2 Del Method 97.7 F 98 18 169/96 H Room Air 04/02/24 08:05 04/02/24 08:05 04/02/24 08:05 03/19/24 08:29 04/02/24 08:05 Const General: cooperative, comfortable and no acute distress Nutritional Appearance: obese Orientation: alert, awake and oriented x3 Lower/Upper Extremity Exam Vascular Exam-Edema Left Lower Extremity: Edema Type: Lymphedema Vascular Exam-Pulses Left Brachial: Pulse Assessment Method: NIBP Left Dorsalis Pedis: Pulse Assessment Method: Doppler Left Posterior Tibial: Pulse Assessment Method: Doppler Objective Meds/Allergies Home Medications amlodipine 5 mg tablet 5 mg PO QAM 05/17/22 [History Confirmed 03/19/24] ergocalciferol (vitamin D2) 1,250 mcg (50,000 unit) capsule 1,250 unit PO QWEEK 05/17/22 [History Confirmed 03/19/24] glimepiride 4 mg tablet 4 mg PO BID 05/17/22 [History Confirmed 03/19/24] lisinopril 20 mg-hydrochlorothiazide 25 mg tablet 1 tab PO QAM 05/17/22 [History Confirmed 03/19/24] meloxicam 15 mg tablet 15 mg PO DAILY 05/17/22 [History Confirmed 03/19/24] metformin 1,000 mg tablet 1,000 mg PO BID 05/17/22 [History Confirmed 03/19/24] metoprolol succinate 50 mg tablet,extended release 24 hr 50 mg PO QAM 05/17/22 [History Confirmed 03/19/24] pioglitazone 45 mg tablet 45 mg PO QAM 05/17/22 [History Confirmed 03/19/24] simvastatin 40 mg tablet 40 mg PO QPM 05/17/22 [History Confirmed 03/19/24] tizanidine 4 mg capsule (Zanaflex) 4 mg PO QPM PRN Pain 05/17/22 [History Confirmed 03/19/24] amoxicillin 875 mg-potassium clavulanate 125 mg tablet 1 tab PO Q12HR 10 days #20 tabs 03/14/24 [RxConfirmed 03/19/24] hydrocodone 5 mg-acetaminophen 325 mg tablet 1 tab PO BID PRN pain 5 days #10 tabs 03/14/24 [Rx Confirmed 03/19/24] clobetasol 0.05 % topical ointment 1 applic topical DAILY Apply topically with dressing changes. 2 weeks #60 grams 03/19/24 [Rx Confirmed 04/02/24] Allergies No Known Allergies Allergy (Verified 03/19/24 08:31) Wound/Ulcer Left Lower Leg: Type: Ulcer 2nd Infection Thickness: Partial Bed Appearance: Beefy Red, Epithelial Tissue or Bridge, [place] and Yellow Percent of Wound Bed Granulated/Red: 90 Percent of Devitalized: 10 Length (cm): 0 Width (cm): 0 Depth (cm): 0 CM Sq: 0.000 Surrounding Tissue Appearance: Hyperpigmented Surrounding Tissue Temp: Warm Drainage Amount: None Drainage Description: Serosanguineous Drainage Odor: No Odor Left Foot: Type: Ulcer 2nd Infection Thickness: Partial Bed Appearance: Other Percent of Wound Bed Granulated/Red: 90 Percent of Devitalized: 10 Length (cm): 0 Width (cm): 0 Depth (cm): 0 CM Sq: 0.000 Surrounding Tissue Appearance: Ethnic/Norm Surrounding Tissue Temp: Warm Drainage Amount: None Drainage Description: Serosanguineous Drainage Odor: No Odor Results Height: 6 ft 1 in Weight: 172.365 kg Body Mass Index: 50.1 Assessment/Plan Assessment/Plan (1) Ulcer of left lower leg: Code(s): L97.929 - Non-pressure chronic ulcer of unspecified part of left lower leg with unspecified severity Plan: 04/02/24- Healed (2) Ulcer of left foot: Code(s): L97.529 - Non-pressure chronic ulcer of other part of left foot with unspecifiedseverity Plan: 04/02/24- Healed (3) Pain of left calf: Code(s): M79.662 - Pain in left lower leg Plan: 04/02/24- Stat ultrasound ordered to rule out DVT. (4) Cellulitis: Code(s): L03.90 - Cellulitis, unspecified Plan: 04/02/24-Currently finished with antibiotics. Should ultrasound results be negative for DVT, will plan to initiate antibiotics. (5) Lymphedema: Code(s): I89.0 - Lymphedema, not elsewhere classified (6) Hemosiderin pigmentation of lower extremity due to varicose veins: Code(s): L81.8 - Other specified disorders of pigmentation; I83.899 - Varicose veins of unspecified lower extremity with other complications Plan: 04/02/24- Full functional venous ultrasound ordered. (7) Venous stasis dermatitis of lower extremity: Code(s): I87.2 - Venous insufficiency (chronic) (peripheral) Plan: 04/02/24- resolved. Will D/C clobetasol. Plan See orders and HPI. Dictated By: Carolyn Bautista APRN DD/ 1409 Signed By: <Electronically signed by SHAHZAD Bautista> 04/02/24 1412 [facility] Work Phone: [phone]) 383-899401-27-2025 [facility]iology [facility] Main [place] [address] [place], [place] [id number] Ultrasound Report Signed Patient: Juan Bean JR MR#: [id number] : 1965 Acct:[id number] Age/Sex: 59 / M ADM Date: 5 Loc: Room: Type: [facility] Attending Dr: Carolyn Bautista APRN Ordering Provider: Carolyn Bautista APRN Date of Service: 04/02/24 US/US venous duplex LE LT: CALF TENDERNESS, EDEMA, PAIN REDNESS Copies to: Carolyn Bautista APRN~ LEFT LOWER EXTREMITY VENOUS DUPLEX INDICATION: Edema pain and tenderness. Wound on the left leg. Unilateral left lower extremity venous duplex Doppler study was obtained utilizing B-mode, color-flow and spectral Doppler. FINDINGS: The left common femoral, femoral, and popliteal veins showed adequatecompressibility, color-flow and augmentation. The left posterior tibial and peroneal veins were compressible, as well asproximal greater saphenous vein. The contralateral right common femoral vein was compressible with color-flow andaugmentation. US/US venous duplex LE LT IMPRESSION: NO EVIDENCE OF DEEP VENOUS THROMBOSIS IN THE LEFT LOWER EXTREMITY. NO SUPERFICIAL THROMBOPHLEBITIS WAS NOTED. Impression dictated by: Alex Sandoval MD04/02/2024 3:30 PM Dictation Location: RAD-DOC-04 Tech: Joanne Lorenzo Transcribed By: GISSELL 04/02/24 1530 Dictated By: Alex Sandoval MD 04/02/24 1527 Signed By: 04/02/24 1530 [facility] Work Phone: [phone]) 694-203501-27-[address] [address] Wound Center Provider Note Signed Patient: Juan Bean JR MR#: [id number] : 1965 Acct:[id number] Age/Sex: 59 / M Copies to: SHAHZAD Thurston PA-C~ HPI Date of Visit Date of Visit: Date of Service: 04/02/2024 Time of Service: 14:09 Narrative HPI: 03/19/2024-Juan is a 59-year-old male who presents to [facility] wound center for evaluation and treatment of ulcers to the left lower leg and left dorsal foot. Patient was recently admitted here at [facility] due to cellulitis of the left lower extremity and bacteremia. Patient was treated with Teflaro IV while inpatient, switched to oral Augmentin at time of discharge per Dr. Navarro's recommendations. Patient remains on Augmentin at this time. Patient is accompanied to his visit today byhis daughter who has been assisting with care and performingdressing changes. Upon exam, lymphedema and venous stasis skin changes are present. Patient has been utilizing an Ten wrap with dressings to control edema, as well as elevatinghis legs throughout theday. Ulcers to the left lower anterior leg and left dorsal foot originally began as blisters in conjunction with the cellulitis. Both blisters have unroofed with partial-thickness skin loss present at today's visit, each comprised of red, moist tissue. Venous stasis dermatitis is noted to the entire left lower extremity, we will initiate clobetasol topically to assist with this- Rx sent to pharmacy. Will plan to apply Xeroform to open wounds and top with a superabsorber for drainage control, wewill continue to utilize Ten wrap's to assist with edema. Patient's daughter reports she is comfortable continuing to change the dressings daily. No acute s/s of infection are noted at today's visit-no periwound erythema, no increased warmth, no purulence, no malodor, no induration, no N/V/D, no fever or chills reported. Encouraged patient to continue course of Augmentin as prescribed- patient ve rbalized understanding. We will see the patient back in the clinic in 2 weeks. 04/02/2024- Mr. Bean presents to [facility] [place] center for follow up evaluation and treatment of LLE ulceration. Upon exam, ulcers are healed at today's visit and previously noted dermatitis is resolved. However, there is some notable erythemaand increased warmth to the lateral aspect of the LLE that extends to the calf region. Patient does endorse pain to this area as well. Patient denies any fever, chills, N/V/D, or shortness of breath. This clinician ordered a STAT venous duplex to r/o DVT. Should the ultrasound be negative, I will likely startantibiotic therapy given the patient's history of recurrent cellulitis based upon exam findings or +erythema and icnreased warmth today. We will hold compression at this time until results for the venous duplex result. Patient waswheeled down to ultrasound by our office. I also ordered a full functional venous study today as well d/t patient's chronic edema and varicosities, will refer to vascular if necessary based upon results. 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 Chewing tobacco use History of gout Pain in right leg Scoliosis deformity of spine Back pain Phimosis Cholelithiasis HTN (hypertension) Hyperlipemia Diabetes type 2 Surgical History History of tonsillectomy Family History Mother Myocardial infarction Keri Gehrig disease Father Myocardial infarction Renal disease Sister Cancer Father Hypertension Father Hypertension Kidney failure Family/Other Family history of other condition Legacy FamHx Problem: SISTER FROM CANCER-NOT SURE WHAT KIND IT WAS Mother Diabetes Type 2 diabetes mellitus Legacy FamHx Problem: DM2 Sister Brother Diabetes Social History Smoking Status: Former smoker Tobacco Type: cigarettes Substance Use Type: None Social History Comments: adult son stays with patient Grafts History of Graft History of Graft?: No Exam Physical Exam Vital Signs: Temp Pulse Resp BP O2 Del Method 97.7 F 98 18 169/96 H Room Air 04/02/24 08:05 04/02/24 08:05 04/02/24 08:05 03/19/24 08:29 04/02/24 08:05 Const General: cooperative, comfortable and no acute distress Nutritional Appearance: obese Orientation: alert, awake and oriented x3 Lower/Upper Extremity Exam Vascular Exam-Edema Left Lower Extremity: Edema Type: Lymphedema Vascular Exam-Pulses Left Brachial: Pulse Assessment Method: NIBP Left Dorsalis Pedis: Pulse Assessment Method: Doppler Left Posterior Tibial: Pulse Assessment Method: Doppler Objective Meds/Allergies Home Medications amlodipine 5 mg tablet 5 mg PO QAM 05/17/22 [History Confirmed 03/19/24] ergocalciferol (vitamin D2) 1,250 mcg (50,000 unit) capsule 1,250 unit PO QWEEK 05/17/22 [History Confirmed 03/19/24] glimepiride 4 mg tablet 4 mg PO BID 05/17/22 [History Confirmed 03/19/24] lisinopril 20 mg-hydrochlorothiazide 25 mg tablet 1 tab PO QAM 05/17/22 [History Confirmed 03/19/24] meloxicam 15 mg tablet 15 mg PO DAILY 05/17/22 [History Confirmed 03/19/24] metformin 1,000 mg tablet 1,000 mg PO BID 05/17/22 [History Confirmed 03/19/24] metoprolol succinate 50 mg tablet,extended release 24 hr 50 mg PO QAM 05/17/22 [History Confirmed 03/19/24] pioglitazone 45 mg tablet 45 mg PO QAM 05/17/22 [History Confirmed 03/19/24] simvastatin 40 mg tablet 40 mg PO QPM 05/17/22 [History Confirmed 03/19/24] tizanidine 4 mg capsule (Zanaflex) 4 mg PO QPM PRN Pain 05/17/22 [History Confirmed 03/19/24] amoxicillin 875 mg-potassium clavulanate 125 mg tablet 1 tab PO Q12HR 10 days #20 tabs 03/14/24 [RxConfirmed 03/19/24] hydrocodone 5 mg-acetaminophen 325 mg tablet 1 tab PO BID PRN pain 5 days #10 tabs 03/14/24 [Rx Confirmed 03/19/24] clobetasol 0.05 % topical ointment 1 applic topical DAILY Apply topically with dressing changes. 2 weeks #60 grams 03/19/24 [Rx Confirmed 04/02/24] Allergies No Known Allergies Allergy (Verified 03/19/24 08:31) Wound/Ulcer Left Lower Leg: Type: Ulcer 2nd Infection Thickness: Partial Bed Appearance: Beefy Red, Epithelial Tissue or Bridge, [place] and Yellow Percent of Wound Bed Granulated/Red: 90 Percent of Devitalized: 10 Length (cm): 0 Width (cm): 0 Depth (cm): 0 CM Sq: 0.000 Surrounding Tissue Appearance: Hyperpigmented Surrounding Tissue Temp: Warm Drainage Amount: None Drainage Description: Serosanguineous Drainage Odor: No Odor Left Foot: Type: Ulcer 2nd Infection Thickness: Partial Bed Appearance: Other Percent of Wound Bed Granulated/Red: 90 Percent of Devitalized: 10 Length (cm): 0 Width (cm): 0 Depth (cm): 0 CM Sq: 0.000 Surrounding Tissue Appearance: Ethnic/Norm Surrounding Tissue Temp: Warm Drainage Amount: None Drainage Description: Serosanguineous Drainage Odor: No Odor Results Height: 6 ft 1 in Weight: 172.365 kg Body Mass Index: 50.1 Assessment/Plan Assessment/Plan (1) Ulcer of left lower leg: Code(s): L97.929 - Non-pressure chronic ulcer of unspecified part of left lower leg with unspecified severity Plan: 04/02/24- Healed (2) Ulcer of left foot: Code(s): L97.529 - Non-pressure chronic ulcer of other part of left foot with unspecifiedseverity Plan: 04/02/24- Healed (3) Pain of left calf: Code(s): M79.662 - Pain in left lower leg Plan: 04/02/24- Stat ultrasound ordered to rule out DVT. (4) Cellulitis: Code(s): L03.90 - Cellulitis, unspecified Plan: 04/02/24-Currently finished with antibiotics. Should ultrasound results be negative for DVT, will plan to initiate antibiotics. (5) Lymphedema: Code(s): I89.0 - Lymphedema, not elsewhere classified (6) Hemosiderin pigmentation of lower extremity due to varicose veins: Code(s): L81.8 - Other specified disorders of pigmentation; I83.899 - Varicose veins of unspecified lower extremity with other complications Plan: 04/02/24- Full functional venous ultrasound ordered. (7) Venous stasis dermatitis of lower extremity: Code(s): I87.2 - Venous insufficiency (chronic) (peripheral) Plan: 04/02/24- resolved. Will D/C clobetasol. Plan See orders and HPI. Dictated By: Carolyn Bautista APRN DD/ 1409 Signed By: 04/02/24 1412 [facility]01-17-2025 Telephone encounter Note* Telephone Encounter - MEGGAN Lopez - 03/23/2024 8:25 AM EST Augmentin sent in for pt. [facility] [id number] Miscellaneous Notes* Telephone Encounter - MEGGAN Lopez - 03/23/2024 8:25 AM EST Augmentin sent in for pt. * Telephone Encounter - Rosario Sutherland - 03/22/2024 2:44 PM EST Lt leg is looking better but still has reddness to it. He'd like to have more antibiotics, PT states the hospital told him it would take 10 days to get better but he hasn't been homr 10days in out ofantibiotics. David Schwartz documented in this encounterNOMineral Area Regional Medical [id number] Telephone encounter Note* Telephone Encounter - Rosario Sutherland - 03/22/2024 2:44 PM EST Lt leg is looking better but still has reddness to it. He'd like to have more antibiotics, PT states the hospital told him it would take 10 days to get better but he hasn't been homr 10days in out ofantibiotics. David Schwartz [facility] [id number] History of Present illness Narrative* MEGGAN Lopez - 03/19/2024 3:30 PM EST Images from the original note were not included. Subjective Patient ID: Juan Bean is a 59 y.o. male who presents for [facility] follow up. Flowsheet Row Patient Outreach from 03/15/2024 in [facility] with Elizabeth Nevarez LPN Hospital Information ED, Hospital or Custodial Facility Discharge? Hospital Patient has been contacted within two business days of discharge Yes Diagnosis Cellulitis, bacteremia, hypophosphatemia, hypomagnesemia, sepsis Discharge Date 03/14/24 Discharged To: Home Setting [transferred from [facility]] Discharge Hospital [facility] Engagement Call Start Time 1410 Medications Discharge medications reviewed and reconciled from hospital? Yes [START: Hydrocodone-acetaminophen, Augmentin] Is the patient having any side effects they believe may be caused by any medication additions or changes? No Does the patient have all medications ordered at discharge? Yes Nursing Interventions No intervention needed Is the patient taking all medications as directed (includes completed medication regime)? Yes Nursing Interventions Nurse provided patient education Appointments Does the patient have a primary care provider? Yes [[facility]U on 03/19 with Carolyn] Nursing Interventions Verified appointment date/time/provider Does the patient have any upcoming specialty appointments? Yes [Wound Clinic on 03/19] Nursing Interventions Advised patient to keep appointment Self Management Patient Teaching Does the patient have access to their discharge instructions? Yes Nursing Interventions Reviewed instructions with patient What is the patient's perception of their health status since discharge? Improving Is the patient/caregiver able to teach back the hierarchy of who to call/visit for symptoms/problems? PCP, Specialist, Home Health nurse, Urgent Care, ED, 911 Yes Wrap Up Wrap Up Additional Comments Had labs, blood cultures Call End Time 1418 Pt is feeling better and is still on ATB and is seeing wound clinic. Admits to still feeling weak. States had pneumonia, but that has resolved. States was also diagnosed with salmonella. States his BP was running well while he was in the hospital. Current Outpatient Medications on File Prior to Visit Medication Sig Dispense Refill tiZANidine (Zanaflex) 4 MG tablet TAKE 1 TABLET BY MOUTH AT BEDTIME NEEDED 30 tablet 3 amLODIPine (Norvasc) 5 MG tablet TAKE 1 TABLET BY MOUTH DAILY 100 tablet 3 amoxicillin-clavulanate (Augmentin) 875-125 MG tablet Take 1 tablet by mouth every 12 (twelve) hours Blood Glucose Monitoring Suppl (D-Care Glucometer) w/Device kit 1 each Daily Test glucose once a day. ergocalciferol (Vitamin D2) 1.25 MG (92679 UT) capsule TAKE 1 CAPSULE BY MOUTH once a week 12 capsule 3 glimepiride (Amaryl) 4 MG tablet Take 1 tablet (4 mg) by mouth in the morning. glucose blood (FREESTYLE TEST STRIPS) test strip 1 each by Other route Daily Use as instructed HYDROcodone-acetaminophen ([place]) 5-325 MG tablet Take 1 tablet by mouth 2 (two) times a day as needed Lancets 30G misc 1 each Daily lisinopril-hydroCHLOROthiazide 20-25 MG tablet TAKE 1 TABLET BY MOUTH ONCE DAILY 100 tablet 3 meloxicam (Mobic) 15 MG tablet TAKE 1 TABLET BY MOUTH ONCE DAILY WITH FOOD 100 tablet 3 metFORMIN (Glucophage) 1000 MG tablet Take 1 tablet (1,000 mg) by mouth in the morning and 1 tablet(1,000 mg) in the evening. Take with meals. 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 Respiratory: Negative for cough, shortness of breath and wheezing. Cardiovascular: Negative for chest pain, palpitations and leg swelling. Gastrointestinal: Negative for abdominal pain, constipation, diarrhea, nausea and vomiting. Skin: Positive for wound. Negative for rash. Neurological: Positive for weakness. Objective Physical Exam Constitutional: General: He is not in acute distress. Appearance: He is obese. Comments: Very pleasant HENT: Head: Normocephalic and atraumatic. Eyes: General: No scleral icterus. Cardiovascular: Rate and Rhythm: Normal rate and regular rhythm. Heart sounds: No murmur heard. Pulmonary: Effort: Pulmonary effort is normal. No respiratory distress. Breath sounds: Normal breath sounds. No wheezing, rhonchi or rales. Musculoskeletal: Right lower leg: Edema present. Left lower leg: Edema present. Comments: Left lower leg wrapped. Post op shoe in place Skin: General: Skin is warm and dry. Neurological: General: No focal deficit present. Mental Status: He is alert and oriented to person, place, and time. Psychiatric: Mood and Affect: Mood normal. Behavior: Behavior normal. Assessment/Plan Diagnoses and all orders for this visit: Cellulitis of left lower leg Continue antibiotic as prescribed by Infectious Disease. Continue daily wound dressing changes, he has family that has been helping him. Follow up with Wound Care Clinic as per their instruction. Will keep pt off work through 04/08/2024. He has a physically active job that he is not currently safe toperform. History of sepsis Symptoms improving. Advised the weakness will improve over time. Encouraged him to stay hydrated, get plenty of rest. Morbid obesity Encouraged healthy diet, will promote healing. He would like to restart Adipex. Advised would recommend holding off until he is healed and able to be more active. Primary hypertension Pt states was running well for him prior to today's visit. Will recheck at follow up appointment. The patient was seen today in follow up of recent hospital stay. All available hospital records were reviewed and discussed with the patient. Hospital discharge meds were reviewed. Follow up for Appointment As Scheduled. documented in this encounterExcelsior Springs Medical [id number] Progress note Author Carolyn Bautista [facility] HospitalNote Date/TimeJanuary 2024 8:55am [place] [address] Wound Center Provider Note Signed Patient: Juan Bean JR MR#: [id number] : 1965 Acct:[id number] Age/Sex: 59 / M Copies to: SHAHZAD Thurston PA-C~ HPI Date of Visit Date of Visit: Date of Service: 03/19/2024 Time of Service: 08:41 Narrative HPI: 03/19/2024-Juan is a 59-year-old male who presents to [facility] wound center for evaluation and treatment of ulcers to the left lower leg and left dorsal foot. Patient was recently admitted here at [facility] due to cellulitis of the left lower extremity and bacteremia. Patient was treated with Teflaro IV while inpatient, switched to oral Augmentin at time of discharge per Dr. Navarro's recommendations. Patient remains on Augmentin at this time. Patient is accompanied to his visit today byhis daughter who has been assisting with care and performingdressing changes. Upon exam, lymphedema and venous stasis skin changes are present. Patient has been utilizing an Ten wrap with dressings to control edema, as well as elevatinghis legs throughout theday. Ulcers to the left lower anterior leg and left dorsal foot originally began as blisters in conjunction with the cellulitis. Both blisters have unroofed with partial-thickness skin loss present at today's visit, each comprised of red, moist tissue. Venous stasis dermatitis is noted to the entire left lower extremity, we will initiate clobetasol topically to assist with this- Rx sent to pharmacy. Will plan to apply Xeroform to open wounds and top with a superabsorber for drainage control, wewill continue to utilize Ten wrap's to assist with edema. Patient's daughter reports she is comfortable continuing to change the dressings daily. No acute s/s of infection are noted at today's visit-no periwound erythema, no increased warmth, no purulence, no malodor, no induration, no N/V/D, no fever or chills reported. Encouraged patient to continue course of Augmentin as prescribed- patient ve rbalized understanding. We will see the patient back in the clinic in 2 weeks. 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 Chewing tobacco use History of gout Pain in right leg Scoliosis deformity of spine Back pain Phimosis Cholelithiasis HTN (hypertension) Hyperlipemia Diabetes type 2 Surgical History History of tonsillectomy Family History Mother Myocardial infarction Keri Gehrig disease Father Myocardial infarction Renal disease Sister Cancer Father Hypertension Father Hypertension Kidney failure Family/Other Family history of other condition Legacy FamHx Problem: SISTER FROM CANCER-NOT SURE WHAT KIND IT WAS Mother Diabetes Type 2 diabetes mellitus Legacy FamHx Problem: DM2 Sister Brother Diabetes Social History Smoking Status: Former smoker Tobacco Type: cigarettes Substance Use Type: None Social History Comments: adult son stays with patient Grafts History of Graft History of Graft?: No Exam Physical Exam Vital Signs: Temp Pulse Resp BP O2 Del Method 97.9 F 83 20 169/96 H Room Air 03/19/24 08:29 03/19/24 08:29 03/19/24 08:29 03/19/24 08:29 03/19/24 08:29 Const General: cooperative, comfortable and no acute distress Nutritional Appearance: obese Orientation: alert, awake and oriented x3 Lower/Upper Extremity Exam Vascular Exam-Edema Left Lower Extremity: Edema Type: Lymphedema Vascular Exam-Pulses Left Dorsalis Pedis: Pulse Assessment Method: Doppler Left Posterior Tibial: Pulse Assessment Method: Doppler Objective Meds/Allergies Home Medications amlodipine 5 mg tablet 5 mg PO QAM 05/17/22 [History Confirmed 03/19/24] ergocalciferol (vitamin D2) 1,250 mcg (50,000 unit) capsule 1,250 unit PO QWEEK 05/17/22 [History Confirmed 03/19/24] glimepiride 4 mg tablet 4 mg PO BID 05/17/22 [History Confirmed 03/19/24] lisinopril 20 mg-hydrochlorothiazide 25 mg tablet 1 tab PO QAM 05/17/22 [History Confirmed 03/19/24] meloxicam 15 mg tablet 15 mg PO DAILY 05/17/22 [History Confirmed 03/19/24] metformin 1,000 mg tablet 1,000 mg PO BID 05/17/22 [History Confirmed 03/19/24] metoprolol succinate 50 mg tablet,extended release 24 hr 50 mg PO QAM 05/17/22 [History Confirmed 03/19/24] pioglitazone 45 mg tablet 45 mg PO QAM 05/17/22 [History Confirmed 03/19/24] simvastatin 40 mg tablet 40 mg PO QPM 05/17/22 [History Confirmed 03/19/24] tizanidine 4 mg capsule (Zanaflex) 4 mg PO QPM PRN Pain 05/17/22 [History Confirmed 03/19/24] amoxicillin 875 mg-potassium clavulanate 125 mg tablet 1 tab PO Q12HR 10 days #20 tabs 03/14/24 [RxConfirmed 03/19/24] hydrocodone 5 mg-acetaminophen 325 mg tablet 1 tab PO BID PRN pain 5 days #10 tabs 03/14/24 [Rx Confirmed 03/19/24] Allergies No Known Allergies Allergy (Verified 03/19/24 08:31) Wound/Ulcer Left Lower Leg: Type: Ulcer 2nd Infection Thickness: Partial Bed Appearance: Beefy Red, Epithelial Tissue or Bridge, [place] and Yellow Percent of Wound Bed Granulated/Red: 90 Percent of Devitalized: 10 Length (cm): 19.5 Width (cm): 11.0 Depth (cm): 0.1 CM Sq: 214.500 Surrounding Tissue Appearance: Hyperpigmented Surrounding Tissue Temp: Warm Drainage Amount: Moderate Drainage Description: Serosanguineous Drainage Odor: No Odor Left Foot: Type: Ulcer 2nd Infection Thickness: Partial Bed Appearance: Beefy Red, [place] and Yellow Percent of Wound Bed Granulated/Red: 90 Percent of Devitalized: 10 Length (cm): 4.7 Width (cm): 6.4 Depth (cm): 0.1 CM Sq: 30.080 Surrounding Tissue Appearance: Hyperpigmented Surrounding Tissue Temp: Warm Drainage Amount: Moderate Drainage Description: Serosanguineous Drainage Odor: No Odor Results Height: 6 ft 1 in Weight: 172.365 kg Body Mass Index: 50.1 Assessment/Plan Assessment/Plan (1) Ulcer of left lower leg: Code(s): L97.929 - Non-pressure chronic ulcer of unspecified part of left lower leg with unspecified severity (2) Ulcer of left foot: Code(s): L97.529 - Non-pressure chronic ulcer of other part of left foot with unspecifiedseverity (3) Cellulitis: Code(s): L03.90 - Cellulitis, unspecified (4) Lymphedema: Code(s): I89.0 - Lymphedema, not elsewhere classified (5) Hemosiderin pigmentation of lower extremity due to varicose veins: Code(s): L81.8 - Other specified disorders of pigmentation; I83.899 - Varicose veins of unspecified lower extremity with other complications (6) Venous stasis dermatitis of lower extremity: Code(s): I87.2 - Venous insufficiency (chronic) (peripheral) Plan See orders and HPI. Time spent with patient Time Spent With Patient (min): 20 Dictated By: Carolyn Bautista APRN DD/ [id number] Signed By: <Electronically signed by SHAHZAD Bautista> 03/19/24 0855 [facility] Work Phone: [phone] 400-974601-13-2025 [place] [address] Wound [place] Provider Note Signed Patient: Juan Bean JR MR#: [id number] : 1965 Acct:[id number] Age/Sex: 59 / M Copies to: SHAHZAD Thurston PA-C~ HPI Date of Visit Date of Visit: Date of Service: 03/19/2024 Time of Service: 08:41 Narrative HPI: 03/19/2024-Juan is a 59-year-old male who presents to [facility] wound center for evaluation and treatment of ulcers to the left lower leg and left dorsal foot. Patient was recently admitted here at [facility] due to cellulitis of the left lower extremity and bacteremia. Patient was treated with Teflaro IV while inpatient, switched to oral Augmentin at time of discharge per Dr. Navarro's recommendations. Patient remains on Augmentin at this time. Patient is accompanied to his visit today byhis daughter who has been assisting with care and performingdressing changes. Upon exam, lymphedema and venous stasis skin changes are present. Patient has been utilizing an Ten wrap with dressings to control edema, as well as elevatinghis legs throughout theday. Ulcers to the left lower anterior leg and left dorsal foot originally began as blisters in conjunction with the cellulitis. Both blisters have unroofed with partial-thickness skin loss present at today's visit, each comprised of red, moist tissue. Venous stasis dermatitis is noted to the entire left lower extremity, we will initiate clobetasol topically to assist with this- Rx sent to pharmacy. Will plan to apply Xeroform to open wounds and top with a superabsorber for drainage control, wewill continue to utilize Ten wrap's to assist with edema. Patient's daughter reports she is comfortable continuing to change the dressings daily. No acute s/s of infection are noted at today's visit-no periwound erythema, no increased warmth, no purulence, no malodor, no induration, no N/V/D, no fever or chills reported. Encouraged patient to continue course of Augmentin as prescribed- patient ve rbalized understanding. We will see the patient back in the clinic in 2 weeks. 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 Chewing tobacco use History of gout Pain in right leg Scoliosis deformity of spine Back pain Phimosis Cholelithiasis HTN (hypertension) Hyperlipemia Diabetes type 2 Surgical History History of tonsillectomy Family History Mother Myocardial infarction Keri Gehrig disease Father Myocardial infarction Renal disease Sister Cancer Father Hypertension Father Hypertension Kidney failure Family/Other Family history of other condition Legacy FamHx Problem: SISTER FROM CANCER-NOT SURE WHAT KIND IT WAS Mother Diabetes Type 2 diabetes mellitus Legacy FamHx Problem: DM2 Sister Brother Diabetes Social History Smoking Status: Former smoker Tobacco Type: cigarettes Substance Use Type: None Social History Comments: adult son stays with patient Grafts History of Graft History of Graft?: No Exam Physical Exam Vital Signs: Temp Pulse Resp BP O2 Del Method 97.9 F 83 20 169/96 H Room Air 03/19/24 08:29 03/19/24 08:29 03/19/24 08:29 03/19/24 08:29 03/19/24 08:29 Const General: cooperative, comfortable and no acute distress Nutritional Appearance: obese Orientation: alert, awake and oriented x3 Lower/Upper Extremity Exam Vascular Exam-Edema Left Lower Extremity: Edema Type: Lymphedema Vascular Exam-Pulses Left Dorsalis Pedis: Pulse Assessment Method: Doppler Left Posterior Tibial: Pulse Assessment Method: Doppler Objective Meds/Allergies Home Medications amlodipine 5 mg tablet 5 mg PO QAM 05/17/22 [History Confirmed 03/19/24] ergocalciferol (vitamin D2) 1,250 mcg (50,000 unit) capsule 1,250 unit PO QWEEK 05/17/22 [History Confirmed 03/19/24] glimepiride 4 mg tablet 4 mg PO BID 05/17/22 [History Confirmed 03/19/24] lisinopril 20 mg-hydrochlorothiazide 25 mg tablet 1 tab PO QAM 05/17/22 [History Confirmed 03/19/24] meloxicam 15 mg tablet 15 mg PO DAILY 05/17/22 [History Confirmed 03/19/24] metformin 1,000 mg tablet 1,000 mg PO BID 05/17/22 [History Confirmed 03/19/24] metoprolol succinate 50 mg tablet,extended release 24 hr 50 mg PO QAM 05/17/22 [History Confirmed 03/19/24] pioglitazone 45 mg tablet 45 mg PO QAM 05/17/22 [History Confirmed 03/19/24] simvastatin 40 mg tablet 40 mg PO QPM 05/17/22 [History Confirmed 03/19/24] tizanidine 4 mg capsule (Zanaflex) 4 mg PO QPM PRN Pain 05/17/22 [History Confirmed 03/19/24] amoxicillin 875 mg-potassium clavulanate 125 mg tablet 1 tab PO Q12HR 10 days #20 tabs 03/14/24 [RxConfirmed 03/19/24] hydrocodone 5 mg-acetaminophen 325 mg tablet 1 tab PO BID PRN pain 5 days #10 tabs 03/14/24 [Rx Confirmed 03/19/24] Allergies No Known Allergies Allergy (Verified 03/19/24 08:31) Wound/Ulcer Left Lower Leg: Type: Ulcer 2nd Infection Thickness: Partial Bed Appearance: Beefy Red, Epithelial Tissue or Bridge, [place] and Yellow Percent of Wound Bed Granulated/Red: 90 Percent of Devitalized: 10 Length (cm): 19.5 Width (cm): 11.0 Depth (cm): 0.1 CM Sq: 214.500 Surrounding Tissue Appearance: Hyperpigmented Surrounding Tissue Temp: Warm Drainage Amount: Moderate Drainage Description: Serosanguineous Drainage Odor: No Odor Left Foot: Type: Ulcer 2nd Infection Thickness: Partial Bed Appearance: Beefy Red, [place] and Yellow Percent of Wound Bed Granulated/Red: 90 Percent of Devitalized: 10 Length (cm): 4.7 Width (cm): 6.4 Depth (cm): 0.1 CM Sq: 30.080 Surrounding Tissue Appearance: Hyperpigmented Surrounding Tissue Temp: Warm Drainage Amount: Moderate Drainage Description: Serosanguineous Drainage Odor: No Odor Results Height: 6 ft 1 in Weight: 172.365 kg Body Mass Index: 50.1 Assessment/Plan Assessment/Plan (1) Ulcer of left lower leg: Code(s): L97.929 - Non-pressure chronic ulcer of unspecified part of left lower leg with unspecified severity (2) Ulcer of left foot: Code(s): L97.529 - Non-pressure chronic ulcer of other part of left foot with unspecifiedseverity (3) Cellulitis: Code(s): L03.90 - Cellulitis, unspecified (4) Lymphedema: Code(s): I89.0 - Lymphedema, not elsewhere classified (5) Hemosiderin pigmentation of lower extremity due to varicose veins: Code(s): L81.8 - Other specified disorders of pigmentation; I83.899 - Varicose veins of unspecified lower extremity with other complications (6) Venous stasis dermatitis of lower extremity: Code(s): I87.2 - Venous insufficiency (chronic) (peripheral) Plan See orders and HPI. Time spent with patient Time Spent With Patient (min): 20 Dictated By: Carolyn Bautista APRN DD/ Signed By: 03/19/24 0855 [facility]01-08-2025 Discharge summary Author Jorge Luis Mcgregor [facility] HospitalNote Date/TimeJanuary 2024 2:[place] [address] Discharge Summary Signed Patient: Juan Bean JR MR#: [id number] : 1965 Acct:[id number] Age/Sex: 59 / M Adm Date: 5 Loc: 3T Room: [address] [place] [address]: Jorge Luis Mcgregor MD Copies to: Carolyn Verdin, MIKEY Mcgregor MD~ Providers Date of Discharge: 03/14/24 Discharging Provider: Obaydah M Daromar Primary Care Provider: Carolyn Verdin Consults: 03/09/24 08:48 Consult to Infectious Diseases Routine Comment: Consulting Provider: [facility] - Infectious Disease Reason For Exam: sepsis, cellulitis Has Provider Been Notified: Yes Date of Notification: 03/12/24 Time of Notification: 07:46 03/09/24 12:14 Consult to Orthopedic Surgery Routine Comment: Consulting Provider: [facility] Reason For Exam: Rule out leg compartment syndrome Has Provider Been Notified: Yes Date of Notification: 03/10/24 Time of Notification: 07:48 Discharge Diagnosis (1) Cellulitis: (2) Bacteremia: (3) Hypophosphatemia: (4) Hypomagnesemia: Final Diagnosis Final Discharge Diagnosis: Sepsis and bacteremia present on admission secondary to extensive left lower extremity cellulitis E.coli, Strep dysgalactia bacteremia Diabetes, with hyperglycemia HTN Hypomagnesemia, hypophosphatemia Summary Hospital Course Hospital course: Mr. Bean is a 59-year-old male with a PMH of HTN, T2DM, HLD, morbidly obese?BMI 55.6 [facility] leg [facility] March 07. Patient states that he had cellulitis to the left leg last year and he believes it has been red since. But his daughter noticed increased redness last week. States on Tuesday he was driving his children around shopping and hedeveloped fever and chills. Did complain of shortness of breath, denied chest pain, nausea vomiting. He also states that there is increased swelling to his left leg. States he quit smoking 29 years ago, daily whiskey drink?reports at least 2 drinks a day. Denies illicit drug use. During hospital course, patient was started on IV antibiotics and has been responding well to treatment with gradual improvement to his left lower extremity. Blood cultures came back positive for E. coli and strep dysgalactiae. ID has been consulted and recommended to maintain Teflaro IV during hosp italization. Patient remained afebrile, no leukocytosis, reports improvement in his left lower extremity, he did have blisters that bursted. Repeat blood cultures negative to date. Discussed with ID team, plan to transition to oral Augmentin oral to complete 2 weeks from last negative blood culture. Discussed with patient at bedside, all question answered, patient in agreement and comfortable with discharge plan at this time. He was given instructions regarding wound care and special boot for his left foot. Patient has multiple complex medical issues as listed above and others that are not listed. All appear to be stable at this time. Patient is feeling significantly better and feeling comfortable with this plan of discharge. I do not have any clear or strong clinical justification to extend inpatient hospitalization. Patient however will require close and the frequent monitoring as well as additional work-up, investigation and therapeutic intervention that could take place from this point on postdischarge. That is to prevent relapse,decompensation, rehospitalization and other medical implications. Outpatient follow up as directed for continuity of care. Verbal and written discharge instructions will be provided to the patient. Condition Condition at Discharge: Stable Time Spent with Patient Time spent providing/coordinating discharge services (# min): 41 Discharge Plan Discharge Plan Patient Disposition: Home Activity: Ambulate as Tolerated Diet: Diabetic Additional Instructions: LLE blisters- Clean with Vashe. Clean entire lower leg with Theraworx protect foam. Xeroform gauze to the wound bed. Top with gauze. Secure with Kerlix and ACEwraps (starting at the base of the toes to below the knee) Monitor blood glucose as done previously Instructions: Know your Meds Prescriptions: New hydrocodone-acetaminophen 5-325 mg tablet 1 tab PO BID PRN (Reason: pain) 5 Days Qty: 10 0RF amoxicillin-pot clavulanate 875-125 mg tablet 1 tab PO Q12HR 10 Days Qty: 20 0RF Continued metoprolol succinate 50 mg tablet extended release 24 hr 50 mg PO QAM Patient Comments: TAKE 1 TABLET BY MOUTH DAILY meloxicam 15 mg tablet 15 mg PO DAILY Patient Comments: TAKE 1 TABLET BY MOUTH ONCE DAILY WITH FOOD pioglitazone 45 mg tablet 45 mg PO QAM Patient Comments: TAKE 1 TABLET BY MOUTH EVERY DAY amlodipine 5 mg tablet 5 mg PO QAM Patient Comments: TAKE 1 TABLET BY MOUTH DAILY simvastatin 40 mg Tablet 40 mg PO QPM metformin 1,000 mg tablet 1,000 mg PO BID Patient Comments: TAKE 1 TABLET BY MOUTH TWICE DAILY WITH A MEAL glimepiride 4 mg tablet 4 mg PO BID Patient Comments: TAKE 1 TABLET BY MOUTH TWICE DAILY, first dose WITH BREAKFAST or first main meal OF the day lisinopril-hydrochlorothiazide 20-25 mg tablet 1 tab PO QAM Patient Comments: TAKE 1 TABLET BY MOUTH ONCE DAILY ergocalciferol (vitamin D2) 1,250 mcg (50,000 unit) capsule 1,250 unit PO QWEEK Patient Comments: TAKE 1 CAPSULE BY MOUTH ONCE A WEEK tizanidine [Zanaflex] 4 mg capsule 4 mg PO QPM PRN (Reason: Pain) Patient Comments: TAKE 1 CAPSULE BY MOUTH EVERY NIGHT AT BEDTIME NEEDED FOR 30 DAYS Discontinued lisinopril 20 mg tablet 20 mg PO QPM Patient Comments: TAKE 1 TABLET BY MOUTH ONCE DAILY Follow Up: [facility]] - 03/19/24 7:45 am (Call and pre register for this appointment by March 15 at 3pm. [phone]) Carolyn Verdin NP-C [Primary Care Provider] - 03/19/24 3:30 pm Exam Physical Exam Vital Signs: Temp Pulse Resp BP Pulse Ox O2 Del Method O2 Flow Rate 97.6 F 98 18 164/87 H 95 Room Air 2 03/14/24 08:00 03/14/24 11:16 03/14/24 11:16 03/14/24 11:16 03/14/24 11:16 03/14/24 11:16 03/11/24 16:00 Narrative: Const General: cooperative, morbidly obese. HEENT Normal oropharyngeal mucosa without any ulcers or exudates Eyes: Conjunctiva normal Pulmonary Auscultation: clear to auscultation , no crackles, no wheezes Cardiovascular Rate: normal rate Rhythm: regular rhythm Heart Sounds: S1 normal, S2 normal and no murmurs GI Inspection: non-distended Palpation: soft, not firm and nontender. No rigidity or rebound. Deferred Neuro General: alert, awake and oriented x3. No obvious new focal deficit Musculoskeletal: LLE wrapped with dressing and Ten bandage. Extrem General: no cyanosis, no pedal edema Psych Appearance: appropriate affect. Grossly normal. Pleasant Diagnostic Studies Completed and Pending Studies Labs on day of discharge: 03/14/24 11:17: POC Glucose 177 03/14/24 08:09: POC Glucose 154 03/13/24 20:29: POC Glucose 222 03/13/24 16:44: POC Glucose 179 Documented By: Jorge Luis Mcgregor MD 03/14/24 11 58 Signed By: <Electronically signed by Jorge Luis Mcgregor MD> 03/14/24 1413 [facility] Work Phone: [phone] [address] Discharge Summary Signed Patient: Juan Bean JR MR#: [id number] : 1965 Acct:[id number] Age/Sex: 59 / M Adm Date: 5 Loc: 3T Room: [address] [place] [address]: Jorge Luis Mcgregor MD Copies to: MIKEY Lopez MD~ Providers Date of Discharge: 03/14/24 Discharging Provider: Jorge Luis Mcgregor Primary Care Provider: Carolyn Verdin Consults: 03/09/24 08:48 Consult to Infectious Diseases Routine Comment: Consulting Provider: [facility] - Infectious Disease Reason For Exam: sepsis, cellulitis Has Provider Been Notified: Yes Date of Notification: 03/12/24 Time of Notification: 07:46 03/09/24 12:14 Consult to Orthopedic Surgery Routine Comment: Consulting Provider: [facility] Reason For Exam: Rule out leg compartment syndrome Has Provider Been Notified: Yes Date of Notification: 03/10/24 Time of Notification: 07:48 Discharge Diagnosis (1) Cellulitis: (2) Bacteremia: (3) Hypophosphatemia: (4) Hypomagnesemia: Final Diagnosis Final Discharge Diagnosis: Sepsis and bacteremia present on admission secondary to extensive left lower extremity cellulitis E.coli, Strep dysgalactia bacteremia Diabetes, with hyperglycemia HTN Hypomagnesemia, hypophosphatemia Summary Hospital Course Hospital course: Mr. Bean is a 59-year-old male with a PMH of HTN, T2DM, HLD, morbidly obese?BMI 55.6 that [facility] redness to his left leg on March 07. Patient states that he had cellulitis to the left leg last year and he believes it has been red since. But his daughter noticed increased redness last week. States on Tuesday he was driving his children around shopping and hedeveloped fever and chills. Did complain of shortness of breath, denied chest pain, nausea vomiting. He also states that there is increased swelling to his left leg. States he quit smoking 29 years ago, daily whiskey drink?reports at least 2 drinks a day. Denies illicit drug use. During hospital course, patient was started on IV antibiotics and has been responding well to treatment with gradual improvement to his left lower extremity. Blood cultures came back positive for E. coli and strep dysgalactiae. ID has been consulted and recommended to maintain Teflaro IV during hosp italization. Patient remained afebrile, no leukocytosis, reports improvement in his left lower extremity, he did have blisters that bursted. Repeat blood cultures negative to date. Discussed with ID team, plan to transition to oral Augmentin oral to complete 2 weeks from last negative blood culture. Discussed with patient at bedside, all question answered, patient in agreement and comfortable with discharge plan at this time. He was given instructions regarding wound care and special boot for his left foot. Patient has multiple complex medical issues as listed above and others that are not listed. All appear to be stable at this time. Patient is feeling significantly better and feeling comfortable with this plan of discharge. I do not have any clear or strong clinical justification to extend inpatient hospitalization. Patient however will require close and the frequent monitoring as well as additional work-up, investigation and therapeutic intervention that could take place from this point on postdischarge. That is to prevent relapse,decompensation, rehospitalization and other medical implications. Outpatient follow up as directed for continuity of care. Verbal and written discharge instructions will be provided to the patient. Condition Condition at Discharge: Stable Time Spent with Patient Time spent providing/coordinating discharge services (# min): 41 Discharge Plan Discharge Plan Patient Disposition: Home Activity: Ambulate as Tolerated Diet: Diabetic Additional Instructions: LLE blisters- Clean with Vashe. Clean entire lower leg with Theraworx protect foam. Xeroform gauze to the wound bed. Top with gauze. Secure with Kerlix and ACEwraps (starting at the base of the toes to below the knee) Monitor blood glucose as done previously Instructions: Know your Meds Prescriptions: New hydrocodone-acetaminophen 5-325 mg tablet 1 tab PO BID PRN (Reason: pain) 5 Days Qty: 10 0RF amoxicillin-pot clavulanate 875-125 mg tablet 1 tab PO Q12HR 10 Days Qty: 20 0RF Continued metoprolol succinate 50 mg tablet extended release 24 hr 50 mg PO QAM Patient Comments: TAKE 1 TABLET BY MOUTH DAILY meloxicam 15 mg tablet 15 mg PO DAILY Patient Comments: TAKE 1 TABLET BY MOUTH ONCE DAILY WITH FOOD pioglitazone 45 mg tablet 45 mg PO QAM Patient Comments: TAKE 1 TABLET BY MOUTH EVERY DAY amlodipine 5 mg tablet 5 mg PO QAM Patient Comments: TAKE 1 TABLET BY MOUTH DAILY simvastatin 40 mg Tablet 40 mg PO QPM metformin 1,000 mg tablet 1,000 mg PO BID Patient Comments: TAKE 1 TABLET BY MOUTH TWICE DAILY WITH A MEAL glimepiride 4 mg tablet 4 mg PO BID Patient Comments: TAKE 1 TABLET BY MOUTH TWICE DAILY, first dose WITH BREAKFAST or first main meal OF the day lisinopril-hydrochlorothiazide 20-25 mg tablet 1 tab PO QAM Patient Comments: TAKE 1 TABLET BY MOUTH ONCE DAILY ergocalciferol (vitamin D2) 1,250 mcg (50,000 unit) capsule 1,250 unit PO QWEEK Patient Comments: TAKE 1 CAPSULE BY MOUTH ONCE A WEEK tizanidine [Zanaflex] 4 mg capsule 4 mg PO QPM PRN (Reason: Pain) Patient Comments: TAKE 1 CAPSULE BY MOUTH EVERY NIGHT AT BEDTIME NEEDED FOR 30 DAYS Discontinued lisinopril 20 mg tablet 20 mg PO QPM Patient Comments: TAKE 1 TABLET BY MOUTH ONCE DAILY Follow Up: [facility]] - 03/19/24 7:45 am (Call and pre register for this appointment by March 15 at 3pm. [phone]) Carolyn Verdin NP-C [Primary Care Provider] - 03/19/24 3:30 pm Exam Physical Exam Vital Signs: Temp Pulse Resp BP Pulse Ox O2 Del Method O2 Flow Rate 97.6 F 98 18 164/87 H 95 Room Air 2 03/14/24 08:00 03/14/24 11:16 03/14/24 11:16 03/14/24 11:16 03/14/24 11:16 03/14/24 11:16 03/11/24 16:00 Narrative: Const General: cooperative, morbidly obese. HEENT Normal oropharyngeal mucosa without any ulcers or exudates Eyes: Conjunctiva normal Pulmonary Auscultation: clear to auscultation , no crackles, no wheezes Cardiovascular Rate: normal rate Rhythm: regular rhythm Heart Sounds: S1 normal, S2 normal and no murmurs GI Inspection: non-distended Palpation: soft, not firm and nontender. No rigidity or rebound. Deferred Neuro General: alert, awake and oriented x3. No obvious new focal deficit Musculoskeletal: LLE wrapped with dressing and Ten bandage. Extrem General: no cyanosis, no pedal edema Psych Appearance: appropriate affect. Grossly normal. Pleasant Diagnostic Studies Completed and Pending Studies Labs on day of discharge: 03/14/24 11:17: POC Glucose 177 03/14/24 08:09: POC Glucose 154 03/13/24 20:29: POC Glucose 222 03/13/24 16:44: POC Glucose 179 Documented By: Jorge Luis Mcgregor MD 03/14/24 11 58 Signed By: 03/14/[address] [place], [place] 4701101-08-2025 Progress note Author Calvin Melanie [facility] Date/TimeJanuary 2024 10:33am [place] [address] Infect. Disease Progress Note Signed Patient: Juan Bean JR MR#: [id number] : 1965 Acct:[id number] Age/Sex: 59 / M Adm Date: 5 Loc: Room: [address] [place] [address] Type: ADM IN Attending Dr: Jorge Luis Mcgregor MD Copies to: ~ Date of Service: 03/14/2024 Subjective Interval history: Patient overall states he is doing okay today. States his left leg is still quite painful. Overnight was afebrile Exam Physical Exam Vital Signs: Temp Pulse Resp BP Pulse Ox O2 Del Method O2 Flow Rate 97.6 F 76 18 134/79 94 L Room Air 2 03/14/24 08:00 03/14/24 08:00 03/14/24 08:00 03/14/24 08:00 03/14/24 08:00 03/14/24 08:00 03/11/24 16:00 Const General: cooperative, comfortable and no acute distress HEENT Ears: hearing grossly normal bilaterally Mouth: oral mucosae normal Eyes General: appearance normal, both eyes and all related structures Neck Neck: normal visual inspection Chest Chest palpation & inspection: normal inspection of the chest Resp Effort & Inspection: normal respiratory effort Cardio Palpation: normal PMI Rate: regular rate Rhythm: regular rhythm GI Palpation: soft Auscultation: normal bowel sounds Skin Other: Patient's left lower extremity is wrapped with dressing and Ten bandage. This is due to be changed.Patient cannot get pant leg past his calf. Will wait fordressing to be taken down. Neuro General: patient oriented x3 Extrem General: abnormal to inspection Objective Microbiology Microbiology: Microbiology - Results from entire visit 03/09/24 05:50 Blood - Right Antecubital Blood Culture - Final NO GROWTH 5 DAYS 03/09/24 05:45 Blood - Right Hand Blood Culture - Final NO GROWTH 5 DAYS Allergies and Medications Allergies and Active Meds Allergies No Known Allergies Allergy (Verified 12/01/22 09:23) Active Medications Acetaminophen (Acetaminophen 500 Mg Tablet) 1,000 mg PO Q6HR PRN PRN Reason: Pain Scale 1 - 3 or fever Stop: 03/09/25 01:45 Last Admin: 03/12/24 21:33 Dose: 1,000 mg Albuterol (Albuterol Neb 2.5 Mg/3 Ml Vial.Neb) 2.5 mg INHALATION Q3H PRN PRN Reason: Cough/Wheeze Stop: 03/09/25 01:45 Amlodipine Besylate (Amlodipine 5 Mg Tablet) 5 mg PO QAM [facility] Stop: 03/13/25 08:59 Last Admin: 03/14/24 08:14 Dose: 5 mg Atorvastatin Calcium (Atorvastatin 20 Mg Tablet) 20 mg PO QPM MARI Stop: 03/09/25 20:59 Last Admin: 03/13/24 22:02 Dose: Not Given Dextrose (Dextrose 50% In Water 25 Gm/50 Ml Syringe) 0 gm IV-PUSH PRN PRN PRN Reason: Hypoglycemia Stop: 03/09/25 01:50 Enoxaparin Sodium (Enoxaparin 40 Mg/0.4 Ml Syringe) 40 mg SUBCUT BID [facility] Stop: 03/09/25 20:59 Last Admin: 03/14/24 08:12 Dose: 40 mg Ergocalciferol (Ergocalciferol 1,250 Mcg (50,000 Units) Capsule) 1,250 mcg PO Th@0900 [facility] Stop: 03/16/25 08:59 Glimepiride (Glimepiride 4 Mg Tablet) 4 mg PO BID.WITH.MEALS [facility] Stop: 03/09/25 16:59 Last Admin: 03/14/24 08:14 Dose: 4 mg Glucose (Dextrose 40% Gel 15 Gm Tube) 0 gm PO PRN PRN PRN Reason: Hypoglycemia Stop: 03/09/25 01:50 Guaifenesin (Guaifenesin Syrup 10 Ml Udc) 20 ml PO Q6H PRN PRN Reason: Cough Stop: 03/09/25 01:45 Ceftaroline Fosamil (Teflaro) 600 mg in 100 mls @ 200 mls/hr IV Q12H [facility] Last Infusion: 03/14/24 05:40 Dose: Infused Insulin Aspart (Insulin Aspart 300 Units/3 Ml) 0 units SUBCUT TID.WM.HS [facility]; Protocol Stop: 03/09/25 07:59 Last Admin: 03/14/24 08:12 Dose: 3 units Insulin Aspart (Insulin Aspart 300 Units/3 Ml) 5 units SUBCUT TID.AC [facility] Stop: 03/10/25 11:29 Last Admin: 03/14/24 08:12 Dose: 5 units Lisinopril (Lisinopril 20 Mg Tablet) 20 mg PO QPM [facility] Stop: 03/09/25 20:59 Last Admin: 03/13/24 22:00 Dose: 20 mg Magnesium Oxide (Magnesium Oxide 400 Mg Tablet) 400 mg PO DAILY [facility] Stop: 03/10/25 09:59 Last Admin: 03/14/24 08:14 Dose: 400 mg Melatonin (Melatonin 5 Mg Tablet) 5 mg PO QHS PRN PRN Reason: Insomnia Stop: 03/09/25 01:45 Last Admin: 03/13/24 22:01 Dose: 5 mg Metformin HCl (Metformin 500 Mg Tablet) 1,000 mg PO BID.WITH.MEALS [facility] Stop: 03/09/25 16:59 Last Admin: 03/14/24 08:14 Dose: 1,000 mg Metoprolol Succinate (Metoprolol Succinate 50 Mg Tab.Er.24h) 50 mg PO QAM [facility] Stop: 03/10/25 08:59 Last Admin: 03/14/24 08:14 Dose: 50 mg Ondansetron HCl (Ondansetron 4 Mg/2 Ml Vial) 4 mg IV-PUSH Q6H PRN PRN Reason: Nausea And Vomiting Stop: 03/09/25 01:45 Oxycodone HCl (Oxycodone Ir 5 Mg Tablet) 5 mg PO Q6HR PRN PRN Reason: Pain Scale 4 - 7 Last Admin: 03/13/24 22:01 Dose: 5 mg Sodium Chloride (Sodium Chloride 0.9 % 10 Ml Syringe) 0 ml IV-PUSH QSHIFT MARI Stop: 03/09/25 05:59 Last Admin: 03/14/24 05:03 Dose: 10 ml Vancomycin HCl (Vancomycin - Pharmacy Dosing 1 Each Miscell) 1 each IV ONCE PRN; Protocol PRN Reason: ZZ.Pharmacy Consult A&P - Infectious Disease Assessment/Plan (1) Cellulitis: (2) Bacteremia: Plan Follow-up blood cultures are negative and final. Source of bacteremia though 2 different organisms felt to be from his left lower extremity cellulitis. Patient will need ongoing appropriate wound care to the left lower extremity with wound care and compression wrapping on a regular basis. I do not think he has the resources at home to provide this for him. Also patient cannot even geta shoe on onthe left foot currently. He is currently on Teflaro and he can stay on this while he is in the hospital. Transition to p.o. Augmentin when discharge is finalized Documented By: Calvin Navarro MD 03/14/24 1030 Signed By: <Electronically signed by MD Calvin Navarro> 03/14/24 1033 [facility] Work Phone: [phone] [place] [address] Infect. Disease Progress Note Signed Patient: Juan Bean JR MR#: [id number] : 1965 Acct:[id number] Age/Sex: 59 / M Adm Date: 5 Loc: 3T Room: [address] [place] [address] Type: ADM IN Attending Dr: Jorge Luis Mcgregor MD Copies to: ~ Date of Service: 03/14/2024 Subjective Interval history: Patient overall states he is doing okay today. States his left leg is still quite painful. Overnight was afebrile Exam Physical Exam Vital Signs: Temp Pulse Resp BP Pulse Ox O2 Del Method O2 Flow Rate 97.6 F 76 18 134/79 94 L Room Air 2 03/14/24 08:00 03/14/24 08:00 03/14/24 08:00 03/14/24 08:00 03/14/24 08:00 03/14/24 08:00 03/11/24 16:00 Const General: cooperative, comfortable and no acute distress HEENT Ears: hearing grossly normal bilaterally Mouth: oral mucosae normal Eyes General: appearance normal, both eyes and all related structures Neck Neck: normal visual inspection Chest Chest palpation & inspection: normal inspection of the chest Resp Effort & Inspection: normal respiratory effort Cardio Palpation: normal PMI Rate: regular rate Rhythm: regular rhythm GI Palpation: soft Auscultation: normal bowel sounds Skin Other: Patient's left lower extremity is wrapped with dressing and Ten bandage. This is due to be changed.Patient cannot get pant leg past his calf. Will wait fordressing to be taken down. Neuro General: patient oriented x3 Extrem General: abnormal to inspection Objective Microbiology Microbiology: Microbiology - Results from entire visit 03/09/24 05:50 Blood - Right Antecubital Blood Culture - Final NO GROWTH 5 DAYS 03/09/24 05:45 Blood - Right Hand Blood Culture - Final NO GROWTH 5 DAYS Allergies and Medications Allergies and Active Meds Allergies No Known Allergies Allergy (Verified 12/01/22 09:23) Active Medications Acetaminophen (Acetaminophen 500 Mg Tablet) 1,000 mg PO Q6HR PRN PRN Reason: Pain Scale 1 - 3 or fever Stop: 03/09/25 01:45 Last Admin: 03/12/24 21:33 Dose: 1,000 mg Albuterol (Albuterol Neb 2.5 Mg/3 Ml Vial.Neb) 2.5 mg INHALATION Q3H PRN PRN Reason: Cough/Wheeze Stop: 03/09/25 01:45 Amlodipine Besylate (Amlodipine 5 Mg Tablet) 5 mg PO QAM [facility] Stop: 03/13/25 08:59 Last Admin: 03/14/24 08:14 Dose: 5 mg Atorvastatin Calcium (Atorvastatin 20 Mg Tablet) 20 mg PO QPM [facility] Stop: 03/09/25 20:59 Last Admin: 03/13/24 22:02 Dose: Not Given Dextrose (Dextrose 50% In Water 25 Gm/50 Ml Syringe) 0 gm IV-PUSH PRN PRN PRN Reason: Hypoglycemia Stop: 03/09/25 01:50 Enoxaparin Sodium (Enoxaparin 40 Mg/0.4 Ml Syringe) 40 mg SUBCUT BID [facility] Stop: 03/09/25 20:59 Last Admin: 03/14/24 08:12 Dose: 40 mg Ergocalciferol (Ergocalciferol 1,250 Mcg (50,000 Units) Capsule) 1,250 mcg PO Th@0900 [facility] Stop: 03/16/25 08:59 Glimepiride (Glimepiride 4 Mg Tablet) 4 mg PO BID.WITH.MEALS [facility] Stop: 03/09/25 16:59 Last Admin: 03/14/24 08:14 Dose: 4 mg Glucose (Dextrose 40% Gel 15 Gm Tube) 0 gm PO PRN PRN PRN Reason: Hypoglycemia Stop: 03/09/25 01:50 Guaifenesin (Guaifenesin Syrup 10 Ml Udc) 20 ml PO Q6H PRN PRN Reason: Cough Stop: 03/09/25 01:45 Ceftaroline Fosamil (Teflaro) 600 mg in 100 mls @ 200 mls/hr IV Q12H [facility] Last Infusion: 03/14/24 05:40 Dose: Infused Insulin Aspart (Insulin Aspart 300 Units/3 Ml) 0 units SUBCUT TID.WM.HS [facility]; Protocol Stop: 03/09/25 07:59 Last Admin: 03/14/24 08:12 Dose: 3 units Insulin Aspart (Insulin Aspart 300 Units/3 Ml) 5 units SUBCUT TID.AC [facility] Stop: 03/10/25 11:29 Last Admin: 03/14/24 08:12 Dose: 5 units Lisinopril (Lisinopril 20 Mg Tablet) 20 mg PO QPM MARI Stop: 03/09/25 20:59 Last Admin: 03/13/24 22:00 Dose: 20 mg Magnesium Oxide (Magnesium Oxide 400 Mg Tablet) 400 mg PO DAILY MARI Stop: 03/10/25 09:59 Last Admin: 03/14/24 08:14 Dose: 400 mg Melatonin (Melatonin 5 Mg Tablet) 5 mg PO QHS PRN PRN Reason: Insomnia Stop: 03/09/25 01:45 Last Admin: 03/13/24 22:01 Dose: 5 mg Metformin HCl (Metformin 500 Mg Tablet) 1,000 mg PO BID.WITH.MEALS [facility] Stop: 03/09/25 16:59 Last Admin: 03/14/24 08:14 Dose: 1,000 mg Metoprolol Succinate (Metoprolol Succinate 50 Mg Tab.Er.24h) 50 mg PO QAM [facility] Stop: 03/10/25 08:59 Last Admin: 03/14/24 08:14 Dose: 50 mg Ondansetron HCl (Ondansetron 4 Mg/2 Ml Vial) 4 mg IV-PUSH Q6H PRN PRN Reason: Nausea And Vomiting Stop: 03/09/25 01:45 Oxycodone HCl (Oxycodone Ir 5 Mg Tablet) 5 mg PO Q6HR PRN PRN Reason: Pain Scale 4 - 7 Last Admin: 03/13/24 22:01 Dose: 5 mg Sodium Chloride (Sodium Chloride 0.9 % 10 Ml Syringe) 0 ml IV-PUSH QSHIFT [facility] Stop: 03/09/25 05:59 Last Admin: 03/14/24 05:03 Dose: 10 ml Vancomycin HCl (Vancomycin - Pharmacy Dosing 1 Each Miscell) 1 each IV ONCE PRN; Protocol PRN Reason: ZZ.Pharmacy Consult A&P - Infectious Disease Assessment/Plan (1) Cellulitis: (2) Bacteremia: Plan Follow-up blood cultures are negative and final. Source of bacteremia though 2 different organisms felt to be from his left lower extremity cellulitis. Patient will need ongoing appropriate wound care to the left lower extremity with wound care and compression wrapping on a regular basis. I do not think he has the resources at home to provide this for him. Also patient cannot even geta shoe on onthe left foot currently. He is currently on Teflaro and he can stay on this while he is in the hospital. Transition to p.o. Augmentin when discharge is finalized Documented By: Calvin Navarro MD 03/14/24 1030 Signed By: 03/14/24 1033 [facility]01-07-2025 Progress note Author Jorge Luis Mcgregor [facility] HospitalNote Date/TimeJanuary 2024 1:11pmSteven [place] [id number] Hospitalist Progress Note Signed Patient: Juan Bean JR MR#: [id number] : 1965 Acct:[id number] Age/Sex: 59 / M Adm Date: 5 Loc: Room: [address] [place] [address] Type: ADM IN Attending Dr: Jorge Luis Mcgregor MD Copies to: ~ Date of Service: 03/13/2024 Subjective Subjective Narrative: Remained afebrile, WBC has normalized. Pain in his leg is improving, he ambulates in the room. Remained on IV AB. ID consulted for input. Exam Physical Exam Vital Signs: Temp Pulse Resp BP Pulse Ox O2 Del Method O2 Flow Rate 98.1 F 84 18 136/84 93 L Room Air 2 03/13/24 08:20 03/13/24 08:20 03/13/24 08:20 03/13/24 08:20 03/13/24 08:20 03/13/24 08:20 03/11/24 16:00 Narrative: Const General: cooperative, morbidly obese. HEENT Normal oropharyngeal mucosa without any ulcers or exudates Eyes: Conjunctiva normal Pulmonary Auscultation: clear to auscultation , no crackles, no wheezes Cardiovascular Rate: normal rate Rhythm: regular rhythm Heart Sounds: S1 normal, S2 normal and no murmurs GI Inspection: non-distended Palpation: soft, not firm and nontender. No rigidity or rebound. Deferred Neuro General: alert, awake and oriented x3. No obvious new focal deficit Musculoskeletal: LLE wrapped with dressing and Ten bandage. Extrem General: no cyanosis, no pedal edema Psych Appearance: appropriate affect. Grossly normal. Pleasant Objective Lab Results 03/10/24 06:23 03/11/24 06:11 Microbiology Results Microbiology 03/09/24 05:50 Blood - Right Antecubital Blood Culture - Preliminary No Growth 4 Days 03/09/24 05:45 Blood - Right Hand Blood Culture - Preliminary No Growth 4 Days Meds Allergies and Active Meds Allergies No Known Allergies Allergy (Verified 12/01/22 09:23) Active Meds: Active Medications Generic Name Dose Route Start Last Admin Trade Name Freq PRN Reason Stop Dose Admin Acetaminophen 1,000 mg 03/09/24 01:46 03/12/24 21:33 Acetaminophen 500 Mg Tablet PO 03/09/25 01:45 1,000 mg Q6HR PRN Administration Pain Scale 1 - 3 or fever Albuterol 2.5 mg 03/09/24 01:46 Albuterol Neb 2.5 Mg/3 Ml Vial.Neb INHALATION 03/09/25 01:45 Q3H PRN Cough/Wheeze Amlodipine Besylate 5 mg 03/13/24 09:00 03/13/24 08:18 Amlodipine 5 Mg Tablet PO 03/13/25 08:59 5 mg QAM MARI Administration Atorvastatin Calcium 20 mg 03/09/24 21:00 03/12/24 21:33 Atorvastatin 20 Mg Tablet PO 03/09/25 20:59 20 mg QPM MARI Administration Dextrose 0 gm 03/09/24 01:51 Dextrose 50% In Water 25 Gm/50 Ml Syringe IV-PUSH 03/09/25 01:50 PRN PRN Hypoglycemia Enoxaparin Sodium 40 mg 03/09/24 21:00 03/13/24 08:18 Enoxaparin 40 Mg/0.4 Ml Syringe SUBCUT 03/09/25 20:59 40 mg BID MARI Administration Ergocalciferol 1,250 mcg 03/16/24 09:00 Ergocalciferol 1,250 Mcg (50,000 Units) Capsule PO 03/16/25 08:59 Th@0900 MARI Glimepiride 4 mg 03/09/24 17:00 03/13/24 08:18 Glimepiride 4 Mg Tablet PO 03/09/25 16:59 4 mg BID.WITH.MEALS MARI Administration Glucose 0 gm 03/09/24 01:51 Dextrose 40% Gel 15 Gm Tube PO 03/09/25 01:50 PRN PRN Hypoglycemia Guaifenesin 20 ml 03/09/24 01:46 Guaifenesin Syrup 10 Ml Udc PO 03/09/25 01:45 Q6H PRN Cough Ceftaroline Fosamil 600 mg in 100 mls @ 200 mls/hr 03/12/24 17:00 03/13/24 05:56 Teflaro IV 200 mls/hr Q12H MARI Administration Insulin Aspart 0 units 03/09/24 08:00 03/13/24 08:18 Insulin Aspart 300 Units/3 Ml SUBCUT 03/09/25 07:59 3 units TID.WM.HS MARI Administration Protocol Insulin Aspart 5 units 03/10/24 11:30 03/13/24 08:19 Insulin Aspart 300 Units/3 Ml SUBCUT 03/10/25 11:29 5 units TID.AC MARI Administration Lisinopril 20 mg 03/09/24 21:00 03/12/24 21:33 Lisinopril 20 Mg Tablet PO 03/09/25 20:59 20 mg QPM MARI Administration Magnesium Oxide 400 mg 03/10/24 10:00 03/13/24 08:17 Magnesium Oxide 400 Mg Tablet PO 03/10/25 09:59 400 mg DAILY MARI Administration Melatonin 5 mg 03/09/24 01:46 03/12/24 21:33 Melatonin 5 Mg Tablet PO 03/09/25 01:45 5 mg QHS PRN Administration Insomnia Metformin HCl 1,000 mg 03/09/24 17:00 03/13/24 08:18 Metformin 500 Mg Tablet PO 03/09/25 16:59 1,000 mg BID.WITH.MEALS MARI Administration Metoprolol Succinate 50 mg 03/10/24 09:00 03/13/24 08:17 Metoprolol Succinate 50 Mg Tab.Er.24h PO 03/10/25 08:59 50 mg QAM MARI Administration Ondansetron HCl 4 mg 03/09/24 01:46 Ondansetron 4 Mg/2 Ml Vial IV-PUSH 03/09/25 01:45 Q6H PRN Nausea And Vomiting Oxycodone HCl 5 mg 03/09/24 01:46 03/11/24 21:18 Oxycodone Ir 5 Mg Tablet PO 5 mg Q6HR PRN Administration Pain Scale 4 - 7 Sodium Chloride 0 ml 03/09/24 06:00 03/13/24 06:45 Sodium Chloride 0.9 % 10 Ml Syringe IV-PUSH 03/09/25 05:59 10 ml QSHIFT MARI Administration Vancomycin HCl 1 each 03/09/24 12:16 Vancomycin - Pharmacy Dosing 1 Each Miscell IV ONCE PRN ZZ.Pharmacy Consult Protocol A&P - Hospitalist Assessment/Plan (1) Sepsis: (2) Cellulitis: (3) Lymphedema: (4) Acute hypoxic respiratory failure: (5) Hypomagnesemia: (6) Hypophosphatemia: (7) Diabetes: Plan Sepsis and bacteremia present on admission secondary to extensive left leg cellulitis Patient was seen by orthopedic team who does not believe that patient has compartment syndrome nor abscess requiring I&D.. venous study at outside hospital before transferring here and that came back negative for DVT. ID following. IV AB as per ID. Plan for oral antibiotics on discharge Repeat blood culture is negative thus far Diabetes, uncontrolled Resume preadmission home medications. Adjusted sliding scale. Continue short acting insulin 5 units 3 times a day with meals. DVT prophylaxis Lovenox 40 mg subcu twice a day. Hypertension Resume preadmission home medication Hypomagnesemia, hypophosphatemia Replete magnesium and phosphate as needed. Discussed with patient at bedside, all question answered, patient in agreement with above plan Possible discharge tomorrow on oral antibiotics as per ID Documented By: Jorge Luis Mcgregor MD 03/13/24 13 10 Signed By: <Electronically signed by Jorge Luis Mcgregor MD> 03/13/24 1311 [facility] Work Phone: 1(858) 482-784201-07-2025 Progress note Author Calvin Navarro [facility] Date/TimeJanuary 2024 12:43pm [place] [address] Infect. Disease Progress Note Signed Patient: Juan Bean JR MR#: [id number] : 1965 Acct:[id number] Age/Sex: 59 / M Adm Date: 5 Loc: Room: [address] [place] [address] Type: ADM IN Attending Dr: Jorge Luis Mcgregor MD Copies to: ~ Date of Service: 03/13/2024 Subjective Interval history: Comfortable today though still endorses LLE discomfort Exam Physical Exam Vital Signs: Temp Pulse Resp BP Pulse Ox O2 Del Method O2 Flow Rate 98.1 F 84 18 136/84 93 L Room Air 2 03/13/24 08:20 03/13/24 08:20 03/13/24 08:20 03/13/24 08:20 03/13/24 08:20 03/13/24 08:20 03/11/24 16:00 Const General: cooperative, comfortable and no acute distress HEENT Ears: hearing grossly normal bilaterally Mouth: oral mucosae normal Eyes General: appearance normal, both eyes and all related structures Neck Neck: normal visual inspection Chest Chest palpation & inspection: normal inspection of the chest Resp Effort & Inspection: normal respiratory effort Cardio Palpation: normal PMI Rate: regular rate Rhythm: regular rhythm GI Palpation: soft Auscultation: normal bowel sounds Skin Other: Patient's left lower extremity is wrapped with dressing and Ten bandage. This is due to be changed.Patient cannot get pant leg past his calf. Will wait fordressing to be taken down. Neuro General: patient oriented x3 Extrem General: abnormal to inspection Objective Microbiology Microbiology: Microbiology - Results from entire visit 03/09/24 05:50 Blood - Right Antecubital Blood Culture - Preliminary No Growth 4 Days 03/09/24 05:45 Blood - Right Hand Blood Culture - Preliminary No Growth 4 Days Allergies and Medications Allergies and Active Meds Allergies No Known Allergies Allergy (Verified 12/01/22 09:23) Active Medications Acetaminophen (Acetaminophen 500 Mg Tablet) 1,000 mg PO Q6HR PRN PRN Reason: Pain Scale 1 - 3 or fever Stop: 03/09/25 01:45 Last Admin: 03/12/24 21:33 Dose: 1,000 mg Albuterol (Albuterol Neb 2.5 Mg/3 Ml Vial.Neb) 2.5 mg INHALATION Q3H PRN PRN Reason: Cough/Wheeze Stop: 03/09/25 01:45 Amlodipine Besylate (Amlodipine 5 Mg Tablet) 5 mg PO QAM MARI Stop: 03/13/25 08:59 Last Admin: 03/13/24 08:18 Dose: 5 mg Atorvastatin Calcium (Atorvastatin 20 Mg Tablet) 20 mg PO QPM MARI Stop: 03/09/25 20:59 Last Admin: 03/12/24 21:33 Dose: 20 mg Dextrose (Dextrose 50% In Water 25 Gm/50 Ml Syringe) 0 gm IV-PUSH PRN PRN PRN Reason: Hypoglycemia Stop: 03/09/25 01:50 Enoxaparin Sodium (Enoxaparin 40 Mg/0.4 Ml Syringe) 40 mg SUBCUT BID MARI Stop: 03/09/25 20:59 Last Admin: 03/13/24 08:18 Dose: 40 mg Ergocalciferol (Ergocalciferol 1,250 Mcg (50,000 Units) Capsule) 1,250 mcg PO Th@0900 [facility] Stop: 03/16/25 08:59 Glimepiride (Glimepiride 4 Mg Tablet) 4 mg PO BID.WITH.MEALS [facility] Stop: 03/09/25 16:59 Last Admin: 03/13/24 08:18 Dose: 4 mg Glucose (Dextrose 40% Gel 15 Gm Tube) 0 gm PO PRN PRN PRN Reason: Hypoglycemia Stop: 03/09/25 01:50 Guaifenesin (Guaifenesin Syrup 10 Ml Udc) 20 ml PO Q6H PRN PRN Reason: Cough Stop: 03/09/25 01:45 Ceftaroline Fosamil (Teflaro) 600 mg in 100 mls @ 200 mls/hr IV Q12H [facility] Last Admin: 03/13/24 05:56 Dose: 200 mls/hr Insulin Aspart (Insulin Aspart 300 Units/3 Ml) 0 units SUBCUT TID.WM.HS [facility]; Protocol Stop: 03/09/25 07:59 Last Admin: 03/13/24 08:18 Dose: 3 units Insulin Aspart (Insulin Aspart 300 Units/3 Ml) 5 units SUBCUT TID.AC [facility] Stop: 03/10/25 11:29 Last Admin: 03/13/24 08:19 Dose: 5 units Lisinopril (Lisinopril 20 Mg Tablet) 20 mg PO QPM [facility] Stop: 03/09/25 20:59 Last Admin: 03/12/24 21:33 Dose: 20 mg Magnesium Oxide (Magnesium Oxide 400 Mg Tablet) 400 mg PO DAILY [facility] Stop: 03/10/25 09:59 Last Admin: 03/13/24 08:17 Dose: 400 mg Melatonin (Melatonin 5 Mg Tablet) 5 mg PO QHS PRN PRN Reason: Insomnia Stop: 03/09/25 01:45 Last Admin: 03/12/24 21:33 Dose: 5 mg Metformin HCl (Metformin 500 Mg Tablet) 1,000 mg PO BID.WITH.MEALS [facility] Stop: 03/09/25 16:59 Last Admin: 03/13/24 08:18 Dose: 1,000 mg Metoprolol Succinate (Metoprolol Succinate 50 Mg Tab.Er.24h) 50 mg PO QAM [facility] Stop: 03/10/25 08:59 Last Admin: 03/13/24 08:17 Dose: 50 mg Ondansetron HCl (Ondansetron 4 Mg/2 Ml Vial) 4 mg IV-PUSH Q6H PRN PRN Reason: Nausea And Vomiting Stop: 03/09/25 01:45 Oxycodone HCl (Oxycodone Ir 5 Mg Tablet) 5 mg PO Q6HR PRN PRN Reason: Pain Scale 4 - 7 Last Admin: 03/11/24 21:18 Dose: 5 mg Sodium Chloride (Sodium Chloride 0.9 % 10 Ml Syringe) 0 ml IV-PUSH QSHIFT MARI Stop: 03/09/25 05:59 Last Admin: 03/13/24 06:45 Dose: 10 ml Vancomycin HCl (Vancomycin - Pharmacy Dosing 1 Each Miscell) 1 each IV ONCE PRN; Protocol PRN Reason: ZZ.Pharmacy Consult A&P - Infectious Disease Assessment/Plan (1) Cellulitis: (2) Bacteremia: Plan Patient did not have MRSA bacteremia despite what my original plan states. He had strep dysgalactiae and E. coli that had grown from his blood cultures. Maintaining Teflaro to cover potential pathogens like MRSA for his left lower extremity. Will reevaluate leg tomorrow and if doing okay then wouldconsider oral antibiotics upon discharge. Documented By: Calvin Navarro MD 03/13/24 1240 Signed By: <Electronically signed by MD Calvin Navarro> 03/13/24 1243 [facility] Work Phone: [phone]) 867-808101-07-2025 [place] [address] Hospitalist Progress Note Signed Patient: Juan Bean JR MR#: [id number] : 1965 Acct:[id number] Age/Sex: 59 / M Adm Date: 5 Loc: Room: [address] [place] [address] Type: ADM IN Attending Dr: Jorge Luis Mcgregor MD Copies to: ~ Date of Service: 03/13/2024 Subjective Subjective Narrative: Remained afebrile, WBC has normalized. Pain in his leg is improving, he ambulates in the room. Remained on IV AB. ID consulted for input. Exam Physical Exam Vital Signs: Temp Pulse Resp BP Pulse Ox O2 Del Method O2 Flow Rate 98.1 F 84 18 136/84 93 L Room Air 2 03/13/24 08:20 03/13/24 08:20 03/13/24 08:20 03/13/24 08:20 03/13/24 08:20 03/13/24 08:20 03/11/24 16:00 Narrative: Const General: cooperative, morbidly obese. HEENT Normal oropharyngeal mucosa without any ulcers or exudates Eyes: Conjunctiva normal Pulmonary Auscultation: clear to auscultation , no crackles, no wheezes Cardiovascular Rate: normal rate Rhythm: regular rhythm Heart Sounds: S1 normal, S2 normal and no murmurs GI Inspection: non-distended Palpation: soft, not firm and nontender. No rigidity or rebound. Deferred Neuro General: alert, awake and oriented x3. No obvious new focal deficit Musculoskeletal: LLE wrapped with dressing and Ten bandage. Extrem General: no cyanosis, no pedal edema Psych Appearance: appropriate affect. Grossly normal. Pleasant Objective Lab Results 03/10/24 06:23 03/11/24 06:11 Microbiology Results Microbiology 03/09/24 05:50 Blood - Right Antecubital Blood Culture - Preliminary No Growth 4 Days 03/09/24 05:45 Blood - Right Hand Blood Culture - Preliminary No Growth 4 Days Meds Allergies and Active Meds Allergies No Known Allergies Allergy (Verified 12/01/22 09:23) Active Meds: Active Medications Generic Name Dose Route Start Last Admin Trade Name Freq PRN Reason Stop Dose Admin Acetaminophen 1,000 mg 03/09/24 01:46 03/12/24 21:33 Acetaminophen 500 Mg Tablet PO 03/09/25 01:45 1,000 mg Q6HR PRN Administration Pain Scale 1 - 3 or fever Albuterol 2.5 mg 03/09/24 01:46 Albuterol Neb 2.5 Mg/3 Ml Vial.Neb INHALATION 03/09/25 01:45 Q3H PRN Cough/Wheeze Amlodipine Besylate 5 mg 03/13/24 09:00 03/13/24 08:18 Amlodipine 5 Mg Tablet PO 03/13/25 08:59 5 mg QAM MARI Administration Atorvastatin Calcium 20 mg 03/09/24 21:00 03/12/24 21:33 Atorvastatin 20 Mg Tablet PO 03/09/25 20:59 20 mg QPM MARI Administration Dextrose 0 gm 03/09/24 01:51 Dextrose 50% In Water 25 Gm/50 Ml Syringe IV-PUSH 03/09/25 01:50 PRN PRN Hypoglycemia Enoxaparin Sodium 40 mg 03/09/24 21:00 03/13/24 08:18 Enoxaparin 40 Mg/0.4 Ml Syringe SUBCUT 03/09/25 20:59 40 mg BID MARI Administration Ergocalciferol 1,250 mcg 03/16/24 09:00 Ergocalciferol 1,250 Mcg (50,000 Units) Capsule PO 03/16/25 08:59 Th@0900 MARI Glimepiride 4 mg 03/09/24 17:00 03/13/24 08:18 Glimepiride 4 Mg Tablet PO 03/09/25 16:59 4 mg BID.WITH.MEALS MARI Administration Glucose 0 gm 03/09/24 01:51 Dextrose 40% Gel 15 Gm Tube PO 03/09/25 01:50 PRN PRN Hypoglycemia Guaifenesin 20 ml 03/09/24 01:46 Guaifenesin Syrup 10 Ml Udc PO 03/09/25 01:45 Q6H PRN Cough Ceftaroline Fosamil 600 mg in 100 mls @ 200 mls/hr 03/12/24 17:00 03/13/24 05:56 Teflaro IV 200 mls/hr Q12H MARI Administration Insulin Aspart 0 units 03/09/24 08:00 03/13/24 08:18 Insulin Aspart 300 Units/3 Ml SUBCUT 03/09/25 07:59 3 units TID.WM.HS MARI Administration Protocol Insulin Aspart 5 units 03/10/24 11:30 03/13/24 08:19 Insulin Aspart 300 Units/3 Ml SUBCUT 03/10/25 11:29 5 units TID.AC MARI Administration Lisinopril 20 mg 03/09/24 21:00 03/12/24 21:33 Lisinopril 20 Mg Tablet PO 03/09/25 20:59 20 mg QPM MARI Administration Magnesium Oxide 400 mg 03/10/24 10:00 03/13/24 08:17 Magnesium Oxide 400 Mg Tablet PO 03/10/25 09:59 400 mg DAILY MARI Administration Melatonin 5 mg 03/09/24 01:46 03/12/24 21:33 Melatonin 5 Mg Tablet PO 03/09/25 01:45 5 mg QHS PRN Administration Insomnia Metformin HCl 1,000 mg 03/09/24 17:00 03/13/24 08:18 Metformin 500 Mg Tablet PO 03/09/25 16:59 1,000 mg BID.WITH.MEALS MARI Administration Metoprolol Succinate 50 mg 03/10/24 09:00 03/13/24 08:17 Metoprolol Succinate 50 Mg Tab.Er.24h PO 03/10/25 08:59 50 mg QAM MARI Administration Ondansetron HCl 4 mg 03/09/24 01:46 Ondansetron 4 Mg/2 Ml Vial IV-PUSH 03/09/25 01:45 Q6H PRN Nausea And Vomiting Oxycodone HCl 5 mg 03/09/24 01:46 03/11/24 21:18 Oxycodone Ir 5 Mg Tablet PO 5 mg Q6HR PRN Administration Pain Scale 4 - 7 Sodium Chloride 0 ml 03/09/24 06:00 03/13/24 06:45 Sodium Chloride 0.9 % 10 Ml Syringe IV-PUSH 03/09/25 05:59 10 ml QSHIFT MARI Administration Vancomycin HCl 1 each 03/09/24 12:16 Vancomycin - Pharmacy Dosing 1 Each Miscell IV ONCE PRN ZZ.Pharmacy Consult Protocol A&P - Hospitalist Assessment/Plan (1) Sepsis: (2) Cellulitis: (3) Lymphedema: (4) Acute hypoxic respiratory failure: (5) Hypomagnesemia: (6) Hypophosphatemia: (7) Diabetes: Plan Sepsis and bacteremia present on admission secondary to extensive left leg cellulitis Patient was seen by orthopedic team who does not believe that patient has compartment syndrome nor abscess requiring I&D.. venous study at outside hospital before transferring here and that came back negative for DVT. ID following. IV AB as per ID. Plan for oral antibiotics on discharge Repeat blood culture is negative thus far Diabetes, uncontrolled Resume preadmission home medications. Adjusted sliding scale. Continue short acting insulin 5 units 3 times a day with meals. DVT prophylaxis Lovenox 40 mg subcu twice a day. Hypertension Resume preadmission home medication Hypomagnesemia, hypophosphatemia Replete magnesium and phosphate as needed. Discussed with patient at bedside, all question answered, patient in agreement with above plan Possible discharge tomorrow on oral antibiotics as per ID Documented By: Jorge Luis Mcgregor MD 03/13/24 13 10 Signed By: 03/13/24 [facility]01-07-2025 [facility] [address] [place] [address] Infect. Disease Progress Note Signed Patient: Juan Bean JR MR#: [id number] : 1965 Acct:[id number] Age/Sex: 59 / M Adm Date: 5 Loc: 3T Room: [address] [place] [address] Type: ADM IN Attending Dr: Jorge Luis Mcgregor MD Copies to: ~ Date of Service: 03/13/2024 Subjective Interval history: Comfortable today though still endorses LLE discomfort Exam Physical Exam Vital Signs: Temp Pulse Resp BP Pulse Ox O2 Del Method O2 Flow Rate 98.1 F 84 18 136/84 93 L Room Air 2 03/13/24 08:20 03/13/24 08:20 03/13/24 08:20 03/13/24 08:20 03/13/24 08:20 03/13/24 08:20 03/11/24 16:00 Const General: cooperative, comfortable and no acute distress HEENT Ears: hearing grossly normal bilaterally Mouth: oral mucosae normal Eyes General: appearance normal, both eyes and all related structures Neck Neck: normal visual inspection Chest Chest palpation & inspection: normal inspection of the chest Resp Effort & Inspection: normal respiratory effort Cardio Palpation: normal PMI Rate: regular rate Rhythm: regular rhythm GI Palpation: soft Auscultation: normal bowel sounds Skin Other: Patient's left lower extremity is wrapped with dressing and Ten bandage. This is due to be changed.Patient cannot get pant leg past his calf. Will wait fordressing to be taken down. Neuro General: patient oriented x3 Extrem General: abnormal to inspection Objective Microbiology Microbiology: Microbiology - Results from entire visit 03/09/24 05:50 Blood - Right Antecubital Blood Culture - Preliminary No Growth 4 Days 03/09/24 05:45 Blood - Right Hand Blood Culture - Preliminary No Growth 4 Days Allergies and Medications Allergies and Active Meds Allergies No Known Allergies Allergy (Verified 12/01/22 09:23) Active Medications Acetaminophen (Acetaminophen 500 Mg Tablet) 1,000 mg PO Q6HR PRN PRN Reason: Pain Scale 1 - 3 or fever Stop: 03/09/25 01:45 Last Admin: 03/12/24 21:33 Dose: 1,000 mg Albuterol (Albuterol Neb 2.5 Mg/3 Ml Vial.Neb) 2.5 mg INHALATION Q3H PRN PRN Reason: Cough/Wheeze Stop: 03/09/25 01:45 Amlodipine Besylate (Amlodipine 5 Mg Tablet) 5 mg PO QAM [facility] Stop: 03/13/25 08:59 Last Admin: 03/13/24 08:18 Dose: 5 mg Atorvastatin Calcium (Atorvastatin 20 Mg Tablet) 20 mg PO QPM [facility] Stop: 03/09/25 20:59 Last Admin: 03/12/24 21:33 Dose: 20 mg Dextrose (Dextrose 50% In Water 25 Gm/50 Ml Syringe) 0 gm IV-PUSH PRN PRN PRN Reason: Hypoglycemia Stop: 03/09/25 01:50 Enoxaparin Sodium (Enoxaparin 40 Mg/0.4 Ml Syringe) 40 mg SUBCUT BID MARI Stop: 03/09/25 20:59 Last Admin: 03/13/24 08:18 Dose: 40 mg Ergocalciferol (Ergocalciferol 1,250 Mcg (50,000 Units) Capsule) 1,250 mcg PO Th@0900 [facility] Stop: 03/16/25 08:59 Glimepiride (Glimepiride 4 Mg Tablet) 4 mg PO BID.WITH.MEALS [facility] Stop: 03/09/25 16:59 Last Admin: 03/13/24 08:18 Dose: 4 mg Glucose (Dextrose 40% Gel 15 Gm Tube) 0 gm PO PRN PRN PRN Reason: Hypoglycemia Stop: 03/09/25 01:50 Guaifenesin (Guaifenesin Syrup 10 Ml Udc) 20 ml PO Q6H PRN PRN Reason: Cough Stop: 03/09/25 01:45 Ceftaroline Fosamil (Teflaro) 600 mg in 100 mls @ 200 mls/hr IV Q12H [facility] Last Admin: 03/13/24 05:56 Dose: 200 mls/hr Insulin Aspart (Insulin Aspart 300 Units/3 Ml) 0 units SUBCUT TID.WM.HS [facility]; Protocol Stop: 03/09/25 07:59 Last Admin: 03/13/24 08:18 Dose: 3 units Insulin Aspart (Insulin Aspart 300 Units/3 Ml) 5 units SUBCUT TID.AC [facility] Stop: 03/10/25 11:29 Last Admin: 03/13/24 08:19 Dose: 5 units Lisinopril (Lisinopril 20 Mg Tablet) 20 mg PO QPM [facility] Stop: 03/09/25 20:59 Last Admin: 03/12/24 21:33 Dose: 20 mg Magnesium Oxide (Magnesium Oxide 400 Mg Tablet) 400 mg PO DAILY [facility] Stop: 03/10/25 09:59 Last Admin: 03/13/24 08:17 Dose: 400 mg Melatonin (Melatonin 5 Mg Tablet) 5 mg PO QHS PRN PRN Reason: Insomnia Stop: 03/09/25 01:45 Last Admin: 03/12/24 21:33 Dose: 5 mg Metformin HCl (Metformin 500 Mg Tablet) 1,000 mg PO BID.WITH.MEALS [facility] Stop: 03/09/25 16:59 Last Admin: 03/13/24 08:18 Dose: 1,000 mg Metoprolol Succinate (Metoprolol Succinate 50 Mg Tab.Er.24h) 50 mg PO QAM [facility] Stop: 03/10/25 08:59 Last Admin: 03/13/24 08:17 Dose: 50 mg Ondansetron HCl (Ondansetron 4 Mg/2 Ml Vial) 4 mg IV-PUSH Q6H PRN PRN Reason: Nausea And Vomiting Stop: 03/09/25 01:45 Oxycodone HCl (Oxycodone Ir 5 Mg Tablet) 5 mg PO Q6HR PRN PRN Reason: Pain Scale 4 - 7 Last Admin: 03/11/24 21:18 Dose: 5 mg Sodium Chloride (Sodium Chloride 0.9 % 10 Ml Syringe) 0 ml IV-PUSH QSHIFT [facility] Stop: 03/09/25 05:59 Last Admin: 03/13/24 06:45 Dose: 10 ml Vancomycin HCl (Vancomycin - Pharmacy Dosing 1 Each Miscell) 1 each IV ONCE PRN; Protocol PRN Reason: ZZ.Pharmacy Consult A&P - Infectious Disease Assessment/Plan (1) Cellulitis: (2) Bacteremia: Plan Patient did not have MRSA bacteremia despite what my original plan states. He had strep dysgalactiae and E. coli that had grown from his blood cultures. Maintaining Teflaro to cover potential pathogens like MRSA for his left lower extremity. Will reevaluate leg tomorrow and if doing okay then wouldconsider oral antibiotics upon discharge. Documented By: Calvin Navarro MD 03/13/24 1240 Signed By: 03/13/24 1243 [facility]01-06-2025 Progress note Author Jorge Luis Mcgregor [facility] Date/TimeJanuary 2024 10:54am [place] [id number] Hospitalist Progress Note Signed Patient: Juan Bean JR MR#: [id number] : 1965 Acct:[id number] Age/Sex: 59 / M Adm Date: 5 Loc: 3T Room: [address] [place] [address] Type: ADM IN Attending Dr: Jorge Luis Mcgregor MD Copies to: ~ Date of Service: 03/12/2024 Subjective Subjective Narrative: Remained afebrile, WBC downtrending. Still with pain and discomfort in the leftleg. Remained on AB.ID consulted for input. Exam Physical Exam Vital Signs: Temp Pulse Resp BP Pulse Ox O2 Del Method O2 Flow Rate 97.6 F 87 18 160/95 H 90 L Room Air 2 03/12/24 08:08 03/12/24 08:08 03/12/24 08:08 03/12/24 08:08 03/12/24 08:08 03/12/24 08:08 03/11/24 16:00 Narrative: Const General: cooperative, morbidly obese. HEENT Normal oropharyngeal mucosa without any ulcers or exudates Eyes: Conjunctiva normal Pulmonary Auscultation: clear to auscultation , no crackles, no wheezes Cardiovascular Rate: normal rate Rhythm: regular rhythm Heart Sounds: S1 normal, S2 normal and no murmurs GI Inspection: non-distended Palpation: soft, not firm and nontender. No rigidity or rebound. Deferred Neuro General: alert, awake and oriented x3. No obvious new focal deficit Musculoskeletal: LLE wrapped with dressing and Ten bandage. Extrem General: no cyanosis, no pedal edema Psych Appearance: appropriate affect. Grossly normal. Pleasant Objective Lab Results 03/10/24 06:23 03/11/24 06:11 Microbiology Results Microbiology 03/09/24 05:50 Blood - Right Antecubital Blood Culture - Preliminary No Growth 3 Days 03/09/24 05:45 Blood - Right Hand Blood Culture - Preliminary No Growth 3 Days Meds Allergies and Active Meds Allergies No Known Allergies Allergy (Verified 12/01/22 09:23) Active Meds: Active Medications Generic Name Dose Route Start Last Admin Trade Name Freq PRN Reason Stop Dose Admin Acetaminophen 1,000 mg 03/09/24 01:46 Acetaminophen 500 Mg Tablet PO 03/09/25 01:45 Q6HR PRN Pain Scale 1 - 3 or fever Albuterol 2.5 mg 03/09/24 01:46 Albuterol Neb 2.5 Mg/3 Ml Vial.Neb INHALATION 03/09/25 01:45 Q3H PRN Cough/Wheeze Amlodipine Besylate 2.5 mg 03/09/24 13:00 03/12/24 08:04 Amlodipine 2.5 Mg Tablet PO 03/09/25 12:59 2.5 mg QAM MARI Administration Atorvastatin Calcium 20 mg 03/09/24 21:00 03/11/24 21:18 Atorvastatin 20 Mg Tablet PO 03/09/25 20:59 20 mg QPM MARI Administration Ceftaroline Fosamil 1 each 03/12/24 10:25 Ceftaroline - Pharmacy Dosing MISCELLANE ONCE PRN ZZ.Pharmacy Consult Protocol Dextrose 0 gm 03/09/24 01:51 Dextrose 50% In Water 25 Gm/50 Ml Syringe IV-PUSH 03/09/25 01:50 PRN PRN Hypoglycemia Enoxaparin Sodium 40 mg 03/09/24 21:00 03/12/24 08:04 Enoxaparin 40 Mg/0.4 Ml Syringe SUBCUT 03/09/25 20:59 40 mg BID MARI Administration Ergocalciferol 1,250 mcg 03/16/24 09:00 Ergocalciferol 1,250 Mcg (50,000 Units) Capsule PO 03/16/25 08:59 Th@0900 MARI Glimepiride 4 mg 03/09/24 17:00 03/12/24 08:04 Glimepiride 4 Mg Tablet PO 03/09/25 16:59 4 mg BID.WITH.MEALS MARI Administration Glucose 0 gm 03/09/24 01:51 Dextrose 40% Gel 15 Gm Tube PO 03/09/25 01:50 PRN PRN Hypoglycemia Guaifenesin 20 ml 03/09/24 01:46 Guaifenesin Syrup 10 Ml Udc PO 03/09/25 01:45 Q6H PRN Cough Insulin Aspart 0 units 03/09/24 08:00 03/12/24 08:04 Insulin Aspart 300 Units/3 Ml SUBCUT 03/09/25 07:59 4 units TID.WM.HS MARI Administration Protocol Insulin Aspart 5 units 03/10/24 11:30 03/12/24 08:05 Insulin Aspart 300 Units/3 Ml SUBCUT 03/10/25 11:29 5 units TID.AC MARI Administration Lisinopril 20 mg 03/09/24 21:00 03/11/24 21:18 Lisinopril 20 Mg Tablet PO 03/09/25 20:59 20 mg QPM MARI Administration Magnesium Oxide 400 mg 03/10/24 10:00 03/12/24 08:04 Magnesium Oxide 400 Mg Tablet PO 03/10/25 09:59 400 mg DAILY MARI Administration Melatonin 5 mg 03/09/24 01:46 03/10/24 21:13 Melatonin 5 Mg Tablet PO 03/09/25 01:45 5 mg QHS PRN Administration Insomnia Metformin HCl 1,000 mg 03/09/24 17:00 03/12/24 08:04 Metformin 500 Mg Tablet PO 03/09/25 16:59 1,000 mg BID.WITH.MEALS MARI Administration Metoprolol Succinate 50 mg 03/10/24 09:00 03/12/24 08:04 Metoprolol Succinate 50 Mg Tab.Er.24h PO 03/10/25 08:59 50 mg QAM MARI Administration Ondansetron HCl 4 mg 03/09/24 01:46 Ondansetron 4 Mg/2 Ml Vial IV-PUSH 03/09/25 01:45 Q6H PRN Nausea And Vomiting Oxycodone HCl 5 mg 03/09/24 01:46 03/11/24 21:18 Oxycodone Ir 5 Mg Tablet PO 5 mg Q6HR PRN Administration Pain Scale 4 - 7 Sodium Chloride 0 ml 03/09/24 06:00 03/12/24 05:15 Sodium Chloride 0.9 % 10 Ml Syringe IV-PUSH 03/09/25 05:59 Not Given QSHIFT MARI Vancomycin HCl 1 each 03/09/24 12:16 Vancomycin - Pharmacy Dosing 1 Each Miscell IV ONCE PRN ZZ.Pharmacy Consult Protocol A&P - Hospitalist Assessment/Plan (1) Sepsis: (2) Cellulitis: (3) Lymphedema: (4) Acute hypoxic respiratory failure: (5) Hypomagnesemia: (6) Hypophosphatemia: (7) Diabetes: Plan Sepsis and bacteremia present on admission secondary to extensive left leg cellulitis Patient was seen by orthopedic team who does not believe that patient has compartment syndrome nor abscess requiring I&D.. venous study at outside hospital before transferring here and that came back negative for DVT. ID was consulted. IV AB as per ID. Repeat blood culture is negative thus far Diabetes, uncontrolled Resume preadmission home medications. Adjusted sliding scale. Continue short acting insulin 5 units 3 times a day with meals. DVT prophylaxis Lovenox 40 mg subcu twice a day. Hypertension Resume preadmission home medication Hypomagnesemia, hypophosphatemia Replete magnesium and phosphate as needed. Discussed with patient at bedside, all question answered, patient in agreement with above plan Documented By: Jorge Luis Mcgregor MD 03/12/24 10 48 Signed By: <Electronically signed by Jorge Luis Mcgregor MD> 03/12/24 1055 [facility] Work Phone: 1(234) 438-829001-06-2025 Consult note Author Calvin Navarro [facility] Date/TimeJanuary 2024 10:25am [place] [address] Infect. Disease Consult Note Signed Patient: Juan Bean JR MR#: [id number] : 1965 Acct:[id number] Age/Sex: 59 / M Adm Date: 5 Loc: Room: [address] [place] [address] Type: ADM IN Attending Dr: Jorge Luis Mcgregor MD Copies to: NON STAFF MD Jorge Luis Segovia MD~ HPI Data of Consult Consult date: 03/12/24 Requesting Physician: Jorge Luis Mcgregor MD Primary Care Provider: NON STAFF Consult Narrative History of present illness: Mr. Bean is a 59 year old male who was admitted 4 days ago. He has type 2 diabetes and morbid obesity who came from [facility] for redness on his left leg. He was given vancomycin and Zosyn and apparently received this cath [facility] as well. From March 07 are positive for 2 separate organisms. 1 blood culture grew strep dysgalactiae with the other blood culturegrowing E. coli. Follow-up blood cultures are negative at 3 days. The leg doeshave a blister that is draining. No cultures were taken of this. 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 Chewing tobacco use History of gout Pain in right leg Scoliosis deformity of spine Back pain Phimosis Cholelithiasis HTN (hypertension) Hyperlipemia Diabetes type 2 Surgical History History of tonsillectomy Family History (Updated 03/09/24 @ 03:23 by Yecenia Meléndez APRN) Mother Myocardial infarction Keri Gehrig disease Father Myocardial infarction Renal disease Sister Cancer Father Hypertension Father Hypertension Kidney failure Family/Other Family history of other condition Legacy FamHx Problem: SISTER FROM CANCER-NOT SURE WHAT KIND IT WAS Mother Diabetes Type 2 diabetes mellitus Legacy FamHx Problem: DM2 Sister Brother Diabetes Social History Smoking Status: Former smoker Tobacco Type: cigarettes Substance Use Type: Alcohol (daily whiskey) Social History Comments: adult son stays with patient Allergies and Medications Allergies and Active Meds Allergies No Known Allergies Allergy (Verified 12/01/22 09:23) Active Medications Acetaminophen (Acetaminophen 500 Mg Tablet) 1,000 mg PO Q6HR PRN PRN Reason: Pain Scale 1 - 3 or fever Stop: 03/09/25 01:45 Albuterol (Albuterol Neb 2.5 Mg/3 Ml Vial.Neb) 2.5 mg INHALATION Q3H PRN PRN Reason: Cough/Wheeze Stop: 03/09/25 01:45 Amlodipine Besylate (Amlodipine 2.5 Mg Tablet) 2.5 mg PO QAM MARI Stop: 03/09/25 12:59 Last Admin: 03/12/24 08:04 Dose: 2.5 mg Atorvastatin Calcium (Atorvastatin 20 Mg Tablet) 20 mg PO QPM MARI Stop: 03/09/25 20:59 Last Admin: 03/11/24 21:18 Dose: 20 mg Dextrose (Dextrose 50% In Water 25 Gm/50 Ml Syringe) 0 gm IV-PUSH PRN PRN PRN Reason: Hypoglycemia Stop: 03/09/25 01:50 Enoxaparin Sodium (Enoxaparin 40 Mg/0.4 Ml Syringe) 40 mg SUBCUT BID MARI Stop: 03/09/25 20:59 Last Admin: 03/12/24 08:04 Dose: 40 mg Ergocalciferol (Ergocalciferol 1,250 Mcg (50,000 Units) Capsule) 1,250 mcg PO Th@0900 [facility] Stop: 03/16/25 08:59 Glimepiride (Glimepiride 4 Mg Tablet) 4 mg PO BID.WITH.MEALS [facility] Stop: 03/09/25 16:59 Last Admin: 03/12/24 08:04 Dose: 4 mg Glucose (Dextrose 40% Gel 15 Gm Tube) 0 gm PO PRN PRN PRN Reason: Hypoglycemia Stop: 03/09/25 01:50 Guaifenesin (Guaifenesin Syrup 10 Ml Udc) 20 ml PO Q6H PRN PRN Reason: Cough Stop: 03/09/25 01:45 Piperacillin Sod/Tazobactam Sod (Zosyn) 4.5 gm in 100 mls @ 200 mls/hr IV Q6H [facility] Last Admin: 03/12/24 04:19 Dose: 200 mls/hr Vancomycin HCl (Vancomycin) 1 gm in 250 mls @ 250 mls/hr IV Q8H [facility] Last Admin: 03/12/24 08:05 Dose: 250 mls/hr Insulin Aspart (Insulin Aspart 300 Units/3 Ml) 0 units SUBCUT TID.WM.HS [facility]; Protocol Stop: 03/09/25 07:59 Last Admin: 03/12/24 08:04 Dose: 4 units Insulin Aspart (Insulin Aspart 300 Units/3 Ml) 5 units SUBCUT TID.AC [facility] Stop: 03/10/25 11:29 Last Admin: 03/12/24 08:05 Dose: 5 units Lisinopril (Lisinopril 20 Mg Tablet) 20 mg PO QPM [facility] Stop: 03/09/25 20:59 Last Admin: 03/11/24 21:18 Dose: 20 mg Magnesium Oxide (Magnesium Oxide 400 Mg Tablet) 400 mg PO DAILY [facility] Stop: 03/10/25 09:59 Last Admin: 03/12/24 08:04 Dose: 400 mg Melatonin (Melatonin 5 Mg Tablet) 5 mg PO QHS PRN PRN Reason: Insomnia Stop: 03/09/25 01:45 Last Admin: 03/10/24 21:13 Dose: 5 mg Metformin HCl (Metformin 500 Mg Tablet) 1,000 mg PO BID.WITH.MEALS [facility] Stop: 03/09/25 16:59 Last Admin: 03/12/24 08:04 Dose: 1,000 mg Metoprolol Succinate (Metoprolol Succinate 50 Mg Tab.Er.24h) 50 mg PO QAM [facility] Stop: 03/10/25 08:59 Last Admin: 03/12/24 08:04 Dose: 50 mg Ondansetron HCl (Ondansetron 4 Mg/2 Ml Vial) 4 mg IV-PUSH Q6H PRN PRN Reason: Nausea And Vomiting Stop: 03/09/25 01:45 Oxycodone HCl (Oxycodone Ir 5 Mg Tablet) 5 mg PO Q6HR PRN PRN Reason: Pain Scale 4 - 7 Last Admin: 03/11/24 21:18 Dose: 5 mg Sodium Chloride (Sodium Chloride 0.9 % 10 Ml Syringe) 0 ml IV-PUSH QSHIFT [facility] Stop: 03/09/25 05:59 Last Admin: 03/12/24 05:15 Dose: Not Given Vancomycin HCl (Vancomycin - Pharmacy Dosing 1 Each Miscell) 1 each IV ONCE PRN; Protocol PRN Reason: ZZ.Pharmacy Consult Exam Physical Exam Vital Signs: Temp Pulse Resp BP Pulse Ox O2 Del Method O2 Flow Rate 97.6 F 87 18 160/95 H 90 L Room Air 2 03/12/24 08:08 03/12/24 08:08 03/12/24 08:08 03/12/24 08:08 03/12/24 08:08 03/12/24 08:08 03/11/24 16:00 Const General: cooperative, comfortable and no acute distress HEENT Ears: hearing grossly normal bilaterally Mouth: oral mucosae normal Eyes General: appearance normal, both eyes and all related structures Neck Neck: normal visual inspection Chest Chest palpation & inspection: normal inspection of the chest Resp Effort & Inspection: normal respiratory effort Cardio Palpation: normal PMI Rate: regular rate Rhythm: regular rhythm GI Palpation: soft Auscultation: normal bowel sounds Skin Other: Patient's left lower extremity is wrapped with dressing and Ten bandage. This is due to be changed.Patient cannot get pant leg past his calf. Will wait fordressing to be taken down. Neuro General: patient oriented x3 Extrem General: abnormal to inspection Other: See above Results - Infectious Disease Labs 03/10/24 06:23 03/11/24 06:11 Microbiology Results Microbiology Narrative: 03/09/24 05:50 Blood Culture - Preliminary Blood - Right Antecubital No Growth 3 Days 03/09/24 05:45 Blood Culture - Preliminary Blood - Right Hand No Growth 3 Days Microbiology 03/07/24 16:14 Blood - Left Forearm Blood Culture - Final 03/07/24 16:14 Blood - Left Forearm Bacterial ID (NA Multiplex Assay) - Final Escherichia coli 03/07/24 16:14 Blood - Left Antecubital Blood Culture - Final Strep dysgalactiae A&P - Infectious Disease (1) Cellulitis: (2) Bacteremia: Plan MRSA bacteremia could be from the left leg however with 2 separate organisms andno cultures from the leg drainage is difficult to know. Will order superficial wound culture from the leg with next dressing change. Will also adjust antibiotics to Teflaro. Still feel that appropriate empiric coverage for MRSA is warranted. Documented By: Calvin Navarro MD 03/12/24 1011 Signed By: <Electronically signed by MD Calvin Navarro> 03/12/24 1025 [facility] Work Phone: 1(387) 440-418101-06-2025 [place] [address] Hospitalist Progress Note Signed Patient: Juan Bean JR MR#: [id number] : 1965 Acct:[id number] Age/Sex: 59 / M Adm Date: 5 Loc: 3T Room: [address] [place] [address] Type: ADM IN Attending Dr: Jorge Luis Mcgregor MD Copies to: ~ Date of Service: 03/12/2024 Subjective Subjective Narrative: Remained afebrile, WBC downtrending. Still with pain and discomfort in the leftleg. Remained on AB.ID consulted for input. Exam Physical Exam Vital Signs: Temp Pulse Resp BP Pulse Ox O2 Del Method O2 Flow Rate 97.6 F 87 18 160/95 H 90 L Room Air 2 03/12/24 08:08 03/12/24 08:08 03/12/24 08:08 03/12/24 08:08 03/12/24 08:08 03/12/24 08:08 03/11/24 16:00 Narrative: Const General: cooperative, morbidly obese. HEENT Normal oropharyngeal mucosa without any ulcers or exudates Eyes: Conjunctiva normal Pulmonary Auscultation: clear to auscultation , no crackles, no wheezes Cardiovascular Rate: normal rate Rhythm: regular rhythm Heart Sounds: S1 normal, S2 normal and no murmurs GI Inspection: non-distended Palpation: soft, not firm and nontender. No rigidity or rebound. Deferred Neuro General: alert, awake and oriented x3. No obvious new focal deficit Musculoskeletal: LLE wrapped with dressing and Ten bandage. Extrem General: no cyanosis, no pedal edema Psych Appearance: appropriate affect. Grossly normal. Pleasant Objective Lab Results 03/10/24 06:23 03/11/24 06:11 Microbiology Results Microbiology 03/09/24 05:50 Blood - Right Antecubital Blood Culture - Preliminary No Growth 3 Days 03/09/24 05:45 Blood - Right Hand Blood Culture - Preliminary No Growth 3 Days Meds Allergies and Active Meds Allergies No Known Allergies Allergy (Verified 12/01/22 09:23) Active Meds: Active Medications Generic Name Dose Route Start Last Admin Trade Name Freq PRN Reason Stop Dose Admin Acetaminophen 1,000 mg 03/09/24 01:46 Acetaminophen 500 Mg Tablet PO 03/09/25 01:45 Q6HR PRN Pain Scale 1 - 3 or fever Albuterol 2.5 mg 03/09/24 01:46 Albuterol Neb 2.5 Mg/3 Ml Vial.Neb INHALATION 03/09/25 01:45 Q3H PRN Cough/Wheeze Amlodipine Besylate 2.5 mg 03/09/24 13:00 03/12/24 08:04 Amlodipine 2.5 Mg Tablet PO 03/09/25 12:59 2.5 mg QAM MARI Administration Atorvastatin Calcium 20 mg 03/09/24 21:00 03/11/24 21:18 Atorvastatin 20 Mg Tablet PO 03/09/25 20:59 20 mg QPM MARI Administration Ceftaroline Fosamil 1 each 03/12/24 10:25 Ceftaroline - Pharmacy Dosing MISCELLANE ONCE PRN ZZ.Pharmacy Consult Protocol Dextrose 0 gm 03/09/24 01:51 Dextrose 50% In Water 25 Gm/50 Ml Syringe IV-PUSH 03/09/25 01:50 PRN PRN Hypoglycemia Enoxaparin Sodium 40 mg 03/09/24 21:00 03/12/24 08:04 Enoxaparin 40 Mg/0.4 Ml Syringe SUBCUT 03/09/25 20:59 40 mg BID MARI Administration Ergocalciferol 1,250 mcg 03/16/24 09:00 Ergocalciferol 1,250 Mcg (50,000 Units) Capsule PO 03/16/25 08:59 Th@0900 MARI Glimepiride 4 mg 03/09/24 17:00 03/12/24 08:04 Glimepiride 4 Mg Tablet PO 03/09/25 16:59 4 mg BID.WITH.MEALS MARI Administration Glucose 0 gm 03/09/24 01:51 Dextrose 40% Gel 15 Gm Tube PO 03/09/25 01:50 PRN PRN Hypoglycemia Guaifenesin 20 ml 03/09/24 01:46 Guaifenesin Syrup 10 Ml Udc PO 03/09/25 01:45 Q6H PRN Cough Insulin Aspart 0 units 03/09/24 08:00 03/12/24 08:04 Insulin Aspart 300 Units/3 Ml SUBCUT 03/09/25 07:59 4 units TID.WM.HS MARI Administration Protocol Insulin Aspart 5 units 03/10/24 11:30 03/12/24 08:05 Insulin Aspart 300 Units/3 Ml SUBCUT 03/10/25 11:29 5 units TID.AC MARI Administration Lisinopril 20 mg 03/09/24 21:00 03/11/24 21:18 Lisinopril 20 Mg Tablet PO 03/09/25 20:59 20 mg QPM MARI Administration Magnesium Oxide 400 mg 03/10/24 10:00 03/12/24 08:04 Magnesium Oxide 400 Mg Tablet PO 03/10/25 09:59 400 mg DAILY MARI Administration Melatonin 5 mg 03/09/24 01:46 03/10/24 21:13 Melatonin 5 Mg Tablet PO 03/09/25 01:45 5 mg QHS PRN Administration Insomnia Metformin HCl 1,000 mg 03/09/24 17:00 03/12/24 08:04 Metformin 500 Mg Tablet PO 03/09/25 16:59 1,000 mg BID.WITH.MEALS MARI Administration Metoprolol Succinate 50 mg 03/10/24 09:00 03/12/24 08:04 Metoprolol Succinate 50 Mg Tab.Er.24h PO 03/10/25 08:59 50 mg QAM MARI Administration Ondansetron HCl 4 mg 03/09/24 01:46 Ondansetron 4 Mg/2 Ml Vial IV-PUSH 03/09/25 01:45 Q6H PRN Nausea And Vomiting Oxycodone HCl 5 mg 03/09/24 01:46 03/11/24 21:18 Oxycodone Ir 5 Mg Tablet PO 5 mg Q6HR PRN Administration Pain Scale 4 - 7 Sodium Chloride 0 ml 03/09/24 06:00 03/12/24 05:15 Sodium Chloride 0.9 % 10 Ml Syringe IV-PUSH 03/09/25 05:59 Not Given QSHIFT MARI Vancomycin HCl 1 each 03/09/24 12:16 Vancomycin - Pharmacy Dosing 1 Each Miscell IV ONCE PRN ZZ.Pharmacy Consult Protocol A&P - Hospitalist Assessment/Plan (1) Sepsis: (2) Cellulitis: (3) Lymphedema: (4) Acute hypoxic respiratory failure: (5) Hypomagnesemia: (6) Hypophosphatemia: (7) Diabetes: Plan Sepsis and bacteremia present on admission secondary to extensive left leg cellulitis Patient was seen by orthopedic team who does not believe that patient has compartment syndrome nor abscess requiring I&D.. venous study at outside hospital before transferring here and that came back negative for DVT. ID was consulted. IV AB as per ID. Repeat blood culture is negative thus far Diabetes, uncontrolled Resume preadmission home medications. Adjusted sliding scale. Continue short acting insulin 5 units 3 times a day with meals. DVT prophylaxis Lovenox 40 mg subcu twice a day. Hypertension Resume preadmission home medication Hypomagnesemia, hypophosphatemia Replete magnesium and phosphate as needed. Discussed with patient at bedside, all question answered, patient in agreement with above plan Documented By: Jorge Luis Mcgregor MD 03/12/24 10 48 Signed By: 03/12/[address] [place], [place] 7270401-06-2025 [place] [address] Infect. Disease Consult Note Signed Patient: Juan Bean JR MR#: [id number] : 1965 Acct:[id number] Age/Sex: 59 / M Adm Date: 5 Loc: Room: [address] [place] [address] Type: ADM IN Attending Dr: Jorge Luis Mcgregor MD Copies to: NON STAFF MD Jorge Luis Segovia MD~ HPI Data of Consult Consult date: 03/12/24 Requesting Physician: Jorge Luis Mcgregor MD Primary Care Provider: NON STAFF Consult Narrative History of present illness: Mr. Bean is a 59 year old male who was admitted 4 days ago. He has type 2 diabetes and morbid obesity who came from [facility] for redness on his left leg. He was given vancomycin and Zosyn and apparently received this cath [facility] as well. From March 07 are positive for 2 separate organisms. 1 blood culture grew strep dysgalactiae with the other blood culturegrowing E. coli. Follow-up blood cultures are negative at 3 days. The leg doeshave a blister that is draining. No cultures were taken of this. 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 Chewing tobacco use History of gout Pain in right leg Scoliosis deformity of spine Back pain Phimosis Cholelithiasis HTN (hypertension) Hyperlipemia Diabetes type 2 Surgical History History of tonsillectomy Family History (Updated 03/09/24 @ 03:23 by Yecenia Meléndez APRN) Mother Myocardial infarction Keri Gehrig disease Father Myocardial infarction Renal disease Sister Cancer Father Hypertension Father Hypertension Kidney failure Family/Other Family history of other condition Legacy FamHx Problem: SISTER FROM CANCER-NOT SURE WHAT KIND IT WAS Mother Diabetes Type 2 diabetes mellitus Legacy FamHx Problem: DM2 Sister Brother Diabetes Social History Smoking Status: Former smoker Tobacco Type: cigarettes Substance Use Type: Alcohol (daily whiskey) Social History Comments: adult son stays with patient Allergies and Medications Allergies and Active Meds Allergies No Known Allergies Allergy (Verified 12/01/22 09:23) Active Medications Acetaminophen (Acetaminophen 500 Mg Tablet) 1,000 mg PO Q6HR PRN PRN Reason: Pain Scale 1 - 3 or fever Stop: 03/09/25 01:45 Albuterol (Albuterol Neb 2.5 Mg/3 Ml Vial.Neb) 2.5 mg INHALATION Q3H PRN PRN Reason: Cough/Wheeze Stop: 03/09/25 01:45 Amlodipine Besylate (Amlodipine 2.5 Mg Tablet) 2.5 mg PO QAM [facility] Stop: 03/09/25 12:59 Last Admin: 03/12/24 08:04 Dose: 2.5 mg Atorvastatin Calcium (Atorvastatin 20 Mg Tablet) 20 mg PO QPM [facility] Stop: 03/09/25 20:59 Last Admin: 03/11/24 21:18 Dose: 20 mg Dextrose (Dextrose 50% In Water 25 Gm/50 Ml Syringe) 0 gm IV-PUSH PRN PRN PRN Reason: Hypoglycemia Stop: 03/09/25 01:50 Enoxaparin Sodium (Enoxaparin 40 Mg/0.4 Ml Syringe) 40 mg SUBCUT BID [facility] Stop: 03/09/25 20:59 Last Admin: 03/12/24 08:04 Dose: 40 mg Ergocalciferol (Ergocalciferol 1,250 Mcg (50,000 Units) Capsule) 1,250 mcg PO Th@0900 [facility] Stop: 03/16/25 08:59 Glimepiride (Glimepiride 4 Mg Tablet) 4 mg PO BID.WITH.MEALS [facility] Stop: 03/09/25 16:59 Last Admin: 03/12/24 08:04 Dose: 4 mg Glucose (Dextrose 40% Gel 15 Gm Tube) 0 gm PO PRN PRN PRN Reason: Hypoglycemia Stop: 03/09/25 01:50 Guaifenesin (Guaifenesin Syrup 10 Ml Udc) 20 ml PO Q6H PRN PRN Reason: Cough Stop: 03/09/25 01:45 Piperacillin Sod/Tazobactam Sod (Zosyn) 4.5 gm in 100 mls @ 200 mls/hr IV Q6H [facility] Last Admin: 03/12/24 04:19 Dose: 200 mls/hr Vancomycin HCl (Vancomycin) 1 gm in 250 mls @ 250 mls/hr IV Q8H [facility] Last Admin: 03/12/24 08:05 Dose: 250 mls/hr Insulin Aspart (Insulin Aspart 300 Units/3 Ml) 0 units SUBCUT TID.WM.HS [facility]; Protocol Stop: 03/09/25 07:59 Last Admin: 03/12/24 08:04 Dose: 4 units Insulin Aspart (Insulin Aspart 300 Units/3 Ml) 5 units SUBCUT TID.AC [facility] Stop: 03/10/25 11:29 Last Admin: 03/12/24 08:05 Dose: 5 units Lisinopril (Lisinopril 20 Mg Tablet) 20 mg PO QPM [facility] Stop: 03/09/25 20:59 Last Admin: 03/11/24 21:18 Dose: 20 mg Magnesium Oxide (Magnesium Oxide 400 Mg Tablet) 400 mg PO DAILY MARI Stop: 03/10/25 09:59 Last Admin: 03/12/24 08:04 Dose: 400 mg Melatonin (Melatonin 5 Mg Tablet) 5 mg PO QHS PRN PRN Reason: Insomnia Stop: 03/09/25 01:45 Last Admin: 03/10/24 21:13 Dose: 5 mg Metformin HCl (Metformin 500 Mg Tablet) 1,000 mg PO BID.WITH.MEALS [facility] Stop: 03/09/25 16:59 Last Admin: 03/12/24 08:04 Dose: 1,000 mg Metoprolol Succinate (Metoprolol Succinate 50 Mg Tab.Er.24h) 50 mg PO QAM [facility] Stop: 03/10/25 08:59 Last Admin: 03/12/24 08:04 Dose: 50 mg Ondansetron HCl (Ondansetron 4 Mg/2 Ml Vial) 4 mg IV-PUSH Q6H PRN PRN Reason: Nausea And Vomiting Stop: 03/09/25 01:45 Oxycodone HCl (Oxycodone Ir 5 Mg Tablet) 5 mg PO Q6HR PRN PRN Reason: Pain Scale 4 - 7 Last Admin: 03/11/24 21:18 Dose: 5 mg Sodium Chloride (Sodium Chloride 0.9 % 10 Ml Syringe) 0 ml IV-PUSH QSHIFT [facility] Stop: 03/09/25 05:59 Last Admin: 03/12/24 05:15 Dose: Not Given Vancomycin HCl (Vancomycin - Pharmacy Dosing 1 Each Miscell) 1 each IV ONCE PRN; Protocol PRN Reason: ZZ.Pharmacy Consult Exam Physical Exam Vital Signs: Temp Pulse Resp BP Pulse Ox O2 Del Method O2 Flow Rate 97.6 F 87 18 160/95 H 90 L Room Air 2 03/12/24 08:08 03/12/24 08:08 03/12/24 08:08 03/12/24 08:08 03/12/24 08:08 03/12/24 08:08 03/11/24 16:00 Const General: cooperative, comfortable and no acute distress HEENT Ears: hearing grossly normal bilaterally Mouth: oral mucosae normal Eyes General: appearance normal, both eyes and all related structures Neck Neck: normal visual inspection Chest Chest palpation & inspection: normal inspection of the chest Resp Effort & Inspection: normal respiratory effort Cardio Palpation: normal PMI Rate: regular rate Rhythm: regular rhythm GI Palpation: soft Auscultation: normal bowel sounds Skin Other: Patient's left lower extremity is wrapped with dressing and Ten bandage. This is due to be changed.Patient cannot get pant leg past his calf. Will wait fordressing to be taken down. Neuro General: patient oriented x3 Extrem General: abnormal to inspection Other: See above Results - Infectious Disease Labs 03/10/24 06:23 03/11/24 06:11 Microbiology Results Microbiology Narrative: 03/09/24 05:50 Blood Culture - Preliminary Blood - Right Antecubital No Growth 3 Days 03/09/24 05:45 Blood Culture - Preliminary Blood - Right Hand No Growth 3 Days Microbiology 03/07/24 16:14 Blood - Left Forearm Blood Culture - Final 03/07/24 16:14 Blood - Left Forearm Bacterial ID (NA Multiplex Assay) - Final Escherichia coli 03/07/24 16:14 Blood - Left Antecubital Blood Culture - Final Strep dysgalactiae A&P - Infectious Disease (1) Cellulitis: (2) Bacteremia: Plan MRSA bacteremia could be from the left leg however with 2 separate organisms andno cultures from the leg drainage is difficult to know. Will order superficial wound culture from the leg with next dressing change. Will also adjust antibiotics to Teflaro. Still feel that appropriate empiric coverage for MRSA is warranted. Documented By: Calvin Navarro MD 03/12/24 1011 Signed By: 03/12/24 1025 [facility]01-05-2025 Progress note Author Gomez Sunshine [facility] HospitalNote Date/TimeJanuary 2024 10:12am [place] [address] Hospitalist Progress Note Signed Patient: Juan Bean JR MR#: [id number] : 1965 Acct:[id number] Age/Sex: 59 / M Adm Date: Loc: 3T Room: [address] [place] [address] Type: ADM IN Attending Dr: Gomez Sunshine MD Copies to: ~ Date of Service: 03/11/2024 Subjective Subjective Narrative: No new symptoms. Persistent pain and discomfort in the left leg. Exam Physical Exam Vital Signs: Temp Pulse Resp BP Pulse Ox O2 Del Method O2 Flow Rate 98.6 F 81 18 138/80 93 L Room Air 3 03/11/24 08:17 03/11/24 08:17 03/11/24 08:17 03/11/24 08:17 03/11/24 08:17 03/11/24 08:17 03/09/24 09:07 Narrative: Patient is sitting in a chair. Morbidly obese. No distress. Chest is clear, heart is regular. Abdomen soft. Increased abdominal girth therefore abdominal exam is inconclusive. Extensive erythema, induration and tenderness involving the left leg from the knee down to the ankle. Bullous formation involving the upper lateral aspect of the haines where there is a clinical suspicion of a superficial abscess. Palpable dorsalis pedis. Objective Lab Results 03/10/24 06:23 03/11/24 06:11 Microbiology Results Microbiology 03/09/24 05:50 Blood - Right Antecubital Blood Culture - Preliminary No Growth 2 Days 03/09/24 05:45 Blood - Right Hand Blood Culture - Preliminary No Growth 2 Days Meds Allergies and Active Meds Allergies No Known Allergies Allergy (Verified 12/01/22 09:23) Active Meds: Active Medications Generic Name Dose Route Start Last Admin Trade Name Freq PRN Reason Stop Dose Admin Acetaminophen 1,000 mg 03/09/24 01:46 Acetaminophen 500 Mg Tablet PO 03/09/25 01:45 Q6HR PRN Pain Scale 1 - 3 or fever Albuterol 2.5 mg 03/09/24 01:46 Albuterol Neb 2.5 Mg/3 Ml Vial.Neb INHALATION 03/09/25 01:45 Q3H PRN Cough/Wheeze Amlodipine Besylate 2.5 mg 03/09/24 13:00 03/11/24 10:01 Amlodipine 2.5 Mg Tablet PO 03/09/25 12:59 2.5 mg QAM MARI Administration Atorvastatin Calcium 20 mg 03/09/24 21:00 03/10/24 21:13 Atorvastatin 20 Mg Tablet PO 03/09/25 20:59 20 mg QPM MARI Administration Dextrose 0 gm 03/09/24 01:51 Dextrose 50% In Water 25 Gm/50 Ml Syringe IV-PUSH 03/09/25 01:50 PRN PRN Hypoglycemia Enoxaparin Sodium 40 mg 03/09/24 21:00 03/11/24 10:00 Enoxaparin 40 Mg/0.4 Ml Syringe SUBCUT 03/09/25 20:59 40 mg BID MARI Administration Ergocalciferol 1,250 mcg 03/16/24 09:00 Ergocalciferol 1,250 Mcg (50,000 Units) Capsule PO 03/16/25 08:59 Th@0900 MARI Glimepiride 4 mg 03/09/24 17:00 03/11/24 10:01 Glimepiride 4 Mg Tablet PO 03/09/25 16:59 4 mg BID.WITH.MEALS MARI Administration Glucose 0 gm 03/09/24 01:51 Dextrose 40% Gel 15 Gm Tube PO 03/09/25 01:50 PRN PRN Hypoglycemia Guaifenesin 20 ml 03/09/24 01:46 Guaifenesin Syrup 10 Ml Udc PO 03/09/25 01:45 Q6H PRN Cough Piperacillin Sod/Tazobactam Sod 4.5 gm in 100 mls @ 200 mls/hr 03/09/24 04:00 03/11/24 04:13 Zosyn IV 200 mls/hr Q6H MARI Administration Vancomycin HCl 1 gm in 250 mls @ 250 mls/hr 03/09/24 21:00 03/11/24 09:06 Vancomycin IV 250 mls/hr Q8H MARI Administration Insulin Aspart 0 units 03/09/24 08:00 03/11/24 08:00 Insulin Aspart 300 Units/3 Ml SUBCUT 03/09/25 07:59 4 units TID.WM.HS MARI Administration Protocol Insulin Aspart 5 units 03/10/24 11:30 03/11/24 08:01 Insulin Aspart 300 Units/3 Ml SUBCUT 03/10/25 11:29 5 units TID.AC MARI Administration Lisinopril 20 mg 03/09/24 21:00 03/10/24 21:13 Lisinopril 20 Mg Tablet PO 03/09/25 20:59 20 mg QPM MARI Administration Magnesium Oxide 400 mg 03/10/24 10:00 03/11/24 10:00 Magnesium Oxide 400 Mg Tablet PO 03/10/25 09:59 400 mg DAILY MARI Administration Melatonin 5 mg 03/09/24 01:46 03/10/24 21:13 Melatonin 5 Mg Tablet PO 03/09/25 01:45 5 mg QHS PRN Administration Insomnia Metformin HCl 1,000 mg 03/09/24 17:00 03/10/24 08:48 Metformin 500 Mg Tablet PO 03/09/25 16:59 1,000 mg BID.WITH.MEALS MRAI Administration Metoprolol Succinate 50 mg 03/10/24 09:00 03/11/24 10:01 Metoprolol Succinate 50 Mg Tab.Er.24h PO 03/10/25 08:59 50 mg QAM MARI Administration Ondansetron HCl 4 mg 03/09/24 01:46 Ondansetron 4 Mg/2 Ml Vial IV-PUSH 03/09/25 01:45 Q6H PRN Nausea And Vomiting Oxycodone HCl 5 mg 03/09/24 01:46 03/10/24 21:13 Oxycodone Ir 5 Mg Tablet PO 5 mg Q6HR PRN Administration Pain Scale 4 - 7 Potassium Phos/Sodium Phos 1 each 03/10/24 09:55 03/11/24 10:00 Sodium, Potassium Phosphates 1 Each Powd.Pack PO 03/11/24 13:01 1 each TID.PC.HS MARI Administration Sodium Chloride 0 ml 03/09/24 06:00 03/11/24 09:06 Sodium Chloride 0.9 % 10 Ml Syringe IV-PUSH 03/09/25 05:59 10 ml QSHIFT MARI Administration Vancomycin HCl 1 each 03/09/24 12:16 Vancomycin - Pharmacy Dosing 1 Each Miscell IV ONCE PRN ZZ.Pharmacy Consult Protocol A&P - Hospitalist Assessment/Plan (1) Sepsis: (2) Cellulitis: (3) Lymphedema: (4) Acute hypoxic respiratory failure: (5) Hypomagnesemia: (6) Hypophosphatemia: (7) Diabetes: Plan Sepsis and bacteremia present on admission secondary to extensive left leg cellulitis. Probable abscess formation. Patient was seen by orthopedic team who does not believe that patient has compartment syndrome nor abscess requiring I&D.. Rule out DVT request venous study. Requested venous study which was canceled due to the fact that the patient had a venous study at outside hospital before transferring here and that came back negative for DVT. Continue broad-spectrum antibiotic pending ID evaluation recommendation Repeat blood culture is negative thus far Diabetes, poor but better control. Resume preadmission home medications. Added sliding scale. Add to an already drawn sample 5 units 3 times a day with meals. DVT prophylaxis Lovenox 40 mg subcu twice a day. Hypertension Resume preadmission home medication Hypomagnesemia, hypophosphatemia Additional magnesium and phosphate supplementation. Documented By: Gomez Sunshine MD 03/11/24 1011 Signed By: <Electronically signed by Gomez Sunshine MD> 03/11/24 1012 [facility] Work Phone: [phone]) 532-237001-05-2025 [place] [address] Hospitalist Progress Note Signed Patient: Juan Bean JR MR#: [id number] : 1965 Acct:[id number] Age/Sex: 59 / M Adm Date: 5 Loc: Room: [address] [place] [address] Type: ADM IN Attending Dr: Gomez Sunshine MD Copies to: ~ Date of Service: 03/11/2024 Subjective Subjective Narrative: No new symptoms. Persistent pain and discomfort in the left leg. Exam Physical Exam Vital Signs: Temp Pulse Resp BP Pulse Ox O2 Del Method O2 Flow Rate 98.6 F 81 18 138/80 93 L Room Air 3 03/11/24 08:17 03/11/24 08:17 03/11/24 08:17 03/11/24 08:17 03/11/24 08:17 03/11/24 08:17 03/09/24 09:07 Narrative: Patient is sitting in a chair. Morbidly obese. No distress. Chest is clear, heart is regular. Abdomen soft. Increased abdominal girth therefore abdominal exam is inconclusive. Extensive erythema, induration and tenderness involving the left leg from the knee down to the ankle. Bullous formation involving the upper lateral aspect of the haines where there is a clinical suspicion of a superficial abscess. Palpable dorsalis pedis. Objective Lab Results 03/10/24 06:23 03/11/24 06:11 Microbiology Results Microbiology 03/09/24 05:50 Blood - Right Antecubital Blood Culture - Preliminary No Growth 2 Days 03/09/24 05:45 Blood - Right Hand Blood Culture - Preliminary No Growth 2 Days Meds Allergies and Active Meds Allergies No Known Allergies Allergy (Verified 12/01/22 09:23) Active Meds: Active Medications Generic Name Dose Route Start Last Admin Trade Name Freq PRN Reason Stop Dose Admin Acetaminophen 1,000 mg 03/09/24 01:46 Acetaminophen 500 Mg Tablet PO 03/09/25 01:45 Q6HR PRN Pain Scale 1 - 3 or fever Albuterol 2.5 mg 03/09/24 01:46 Albuterol Neb 2.5 Mg/3 Ml Vial.Neb INHALATION 03/09/25 01:45 Q3H PRN Cough/Wheeze Amlodipine Besylate 2.5 mg 03/09/24 13:00 03/11/24 10:01 Amlodipine 2.5 Mg Tablet PO 03/09/25 12:59 2.5 mg QAM MARI Administration Atorvastatin Calcium 20 mg 03/09/24 21:00 03/10/24 21:13 Atorvastatin 20 Mg Tablet PO 03/09/25 20:59 20 mg QPM MARI Administration Dextrose 0 gm 03/09/24 01:51 Dextrose 50% In Water 25 Gm/50 Ml Syringe IV-PUSH 03/09/25 01:50 PRN PRN Hypoglycemia Enoxaparin Sodium 40 mg 03/09/24 21:00 03/11/24 10:00 Enoxaparin 40 Mg/0.4 Ml Syringe SUBCUT 03/09/25 20:59 40 mg BID MARI Administration Ergocalciferol 1,250 mcg 03/16/24 09:00 Ergocalciferol 1,250 Mcg (50,000 Units) Capsule PO 03/16/25 08:59 Th@0900 MARI Glimepiride 4 mg 03/09/24 17:00 03/11/24 10:01 Glimepiride 4 Mg Tablet PO 03/09/25 16:59 4 mg BID.WITH.MEALS MARI Administration Glucose 0 gm 03/09/24 01:51 Dextrose 40% Gel 15 Gm Tube PO 03/09/25 01:50 PRN PRN Hypoglycemia Guaifenesin 20 ml 03/09/24 01:46 Guaifenesin Syrup 10 Ml Udc PO 03/09/25 01:45 Q6H PRN Cough Piperacillin Sod/Tazobactam Sod 4.5 gm in 100 mls @ 200 mls/hr 03/09/24 04:00 03/11/24 04:13 Zosyn IV 200 mls/hr Q6H MARI Administration Vancomycin HCl 1 gm in 250 mls @ 250 mls/hr 03/09/24 21:00 03/11/24 09:06 Vancomycin IV 250 mls/hr Q8H MARI Administration Insulin Aspart 0 units 03/09/24 08:00 03/11/24 08:00 Insulin Aspart 300 Units/3 Ml SUBCUT 03/09/25 07:59 4 units TID.WM.HS MARI Administration Protocol Insulin Aspart 5 units 03/10/24 11:30 03/11/24 08:01 Insulin Aspart 300 Units/3 Ml SUBCUT 03/10/25 11:29 5 units TID.AC MARI Administration Lisinopril 20 mg 03/09/24 21:00 03/10/24 21:13 Lisinopril 20 Mg Tablet PO 03/09/25 20:59 20 mg QPM MARI Administration Magnesium Oxide 400 mg 03/10/24 10:00 03/11/24 10:00 Magnesium Oxide 400 Mg Tablet PO 03/10/25 09:59 400 mg DAILY MARI Administration Melatonin 5 mg 03/09/24 01:46 03/10/24 21:13 Melatonin 5 Mg Tablet PO 03/09/25 01:45 5 mg QHS PRN Administration Insomnia Metformin HCl 1,000 mg 03/09/24 17:00 03/10/24 08:48 Metformin 500 Mg Tablet PO 03/09/25 16:59 1,000 mg BID.WITH.MEALS MARI Administration Metoprolol Succinate 50 mg 03/10/24 09:00 03/11/24 10:01 Metoprolol Succinate 50 Mg Tab.Er.24h PO 03/10/25 08:59 50 mg QAM MARI Administration Ondansetron HCl 4 mg 03/09/24 01:46 Ondansetron 4 Mg/2 Ml Vial IV-PUSH 03/09/25 01:45 Q6H PRN Nausea And Vomiting Oxycodone HCl 5 mg 03/09/24 01:46 03/10/24 21:13 Oxycodone Ir 5 Mg Tablet PO 5 mg Q6HR PRN Administration Pain Scale 4 - 7 Potassium Phos/Sodium Phos 1 each 03/10/24 09:55 03/11/24 10:00 Sodium, Potassium Phosphates 1 Each Powd.Pack PO 03/11/24 13:01 1 each TID.PC.HS MARI Administration Sodium Chloride 0 ml 03/09/24 06:00 03/11/24 09:06 Sodium Chloride 0.9 % 10 Ml Syringe IV-PUSH 03/09/25 05:59 10 ml QSHIFT MARI Administration Vancomycin HCl 1 each 03/09/24 12:16 Vancomycin - Pharmacy Dosing 1 Each Miscell IV ONCE PRN ZZ.Pharmacy Consult Protocol A&P - Hospitalist Assessment/Plan (1) Sepsis: (2) Cellulitis: (3) Lymphedema: (4) Acute hypoxic respiratory failure: (5) Hypomagnesemia: (6) Hypophosphatemia: (7) Diabetes: Plan Sepsis and bacteremia present on admission secondary to extensive left leg cellulitis. Probable abscess formation. Patient was seen by orthopedic team who does not believe that patient has compartment syndrome nor abscess requiring I&D.. Rule out DVT request venous study. Requested venous study which was canceled due to the fact that the patient had a venous study at outside hospital before transferring here and that came back negative for DVT. Continue broad-spectrum antibiotic pending ID evaluation recommendation Repeat blood culture is negative thus far Diabetes, poor but better control. Resume preadmission home medications. Added sliding scale. Add to an already drawn sample 5 units 3 times a day with meals. DVT prophylaxis Lovenox 40 mg subcu twice a day. Hypertension Resume preadmission home medication Hypomagnesemia, hypophosphatemia Additional magnesium and phosphate supplementation. Documented By: Gomez Sunshine MD 03/11/24 1011 Signed By: 03/11/24 1012 [facility]01-05-2025 Progress note Author Brett Chang [facility] Hospital[facility] Date/TimeJanuary 2024 8:01[place] [id number] Orthopedic Progress Note Signed Patient: Juan Bean MR#: [id number] : 1965 Acct:[id number] Age/Sex: 59 / M Adm Date: 5 Loc: 3T Room: [address] [place] [address] Type: ADM IN Attending Dr: Gomez Sunshine MD Copies to: ~ Date of Service: 03/11/2024 Exam Physical Exam Vital Signs: Temp Pulse Resp BP Pulse Ox O2 Del Method O2 Flow Rate 98.4 F 93 18 131/79 96 Room Air 3 03/11/24 04:00 03/11/24 04:00 03/11/24 04:00 03/11/24 04:00 03/11/24 04:00 03/11/24 04:00 03/09/24 09:07 Narrative: Patient sitting up in chair. States he feels a little better today. The quickly decreased redness about the leg. Continued notable swelling. The blister of the anterolateral leg has opened. Objective Labs Labs: Laboratory Results - last 24 hr 03/10/24 03/10/24 03/10/24 11:27 16:25 21:10 PHA Creatinine Clear Sodium Potassium Chloride Carbon Dioxide Anion Gap BUN Creatinine Est GFR (CKD-EPI) Glucose POC Glucose 259 232 267 POC Glucose Comment Glu2: cleaned meter Calcium Phosphorus Vancomycin Peak Vancomycin Trough 03/10/24 03/11/24 23:08 06:11 PHA Creatinine Clear 157.42 Sodium 135 L D Potassium 4.2 Chloride 94 L Carbon Dioxide 33.6 H Anion Gap 11.6 BUN 15 Creatinine 0.89 Est GFR (CKD-EPI) > 60.0 Glucose 214 H POC Glucose POC Glucose Comment Calcium 8.6 Phosphorus 3.0 Vancomycin Peak 22.6 Vancomycin Trough 12.8 Micro Microbiology Results: Microbiology 03/09/24 05:50 Blood - Right Antecubital Blood Culture - Preliminary No Growth 2 Days 03/09/24 05:45 Blood - Right Hand Blood Culture - Preliminary No Growth 2 Days Assessment / Plan Assessment and plan (1) Cellulitis: Code(s): L03.90 - Cellulitis, unspecified Plan I would like to see a nonstick gauze dressing over the blister for now. May leave this open at times to dry up. Documented By: Brett Chang MD 03/11/24 0800 Signed By: <Electronically signed by MD Brett Chang> 03/11/24 0801 [facility] Work Phone: [phone]) 561-343401-05-2025 [place] [id number] Orthopedic Progress Note Signed Patient: Juan Bean JR MR#: [id number] : 1965 Acct:[id number] Age/Sex: 59 / M Adm Date: 5 Loc: 3T Room: [address] [place] [address] Type: ADM IN Attending Dr: Gomez Sunshine MD Copies to: ~ Date of Service: 03/11/2024 Exam Physical Exam Vital Signs: Temp Pulse Resp BP Pulse Ox O2 Del Method O2 Flow Rate 98.4 F 93 18 131/79 96 Room Air 3 03/11/24 04:00 03/11/24 04:00 03/11/24 04:00 03/11/24 04:00 03/11/24 04:00 03/11/24 04:00 03/09/24 09:07 Narrative: Patient sitting up in chair. States he feels a little better today. The quickly decreased redness about the leg. Continued notable swelling. The blister of the anterolateral leg has opened. Objective Labs Labs: Laboratory Results - last 24 hr 03/10/24 03/10/24 03/10/24 11:27 16:25 21:10 PHA Creatinine Clear Sodium Potassium Chloride Carbon Dioxide Anion Gap BUN Creatinine Est GFR (CKD-EPI) Glucose POC Glucose 259 232 267 POC Glucose Comment Glu2: cleaned meter Calcium Phosphorus Vancomycin Peak Vancomycin Trough 03/10/24 03/11/24 23:08 06:11 PHA Creatinine Clear 157.42 Sodium 135 L D Potassium 4.2 Chloride 94 L Carbon Dioxide 33.6 H Anion Gap 11.6 BUN 15 Creatinine 0.89 Est GFR (CKD-EPI) > 60.0 Glucose 214 H POC Glucose POC Glucose Comment Calcium 8.6 Phosphorus 3.0 Vancomycin Peak 22.6 Vancomycin Trough 12.8 Micro Microbiology Results: Microbiology 03/09/24 05:50 Blood - Right Antecubital Blood Culture - Preliminary No Growth 2 Days 03/09/24 05:45 Blood - Right Hand Blood Culture - Preliminary No Growth 2 Days Assessment / Plan Assessment and plan (1) Cellulitis: Code(s): L03.90 - Cellulitis, unspecified Plan I would like to see a nonstick gauze dressing over the blister for now. May leave this open at times to dry up. Documented By: Brett Chang MD 03/11/24 08 Signed By: 03/11/24 08 [facility]01-04-2025 Progress note Author Gomez Sunshine [facility] Date/TimeJanuary 2024 10:00am [place] [address] Hospitalist Progress Note Signed Patient: Juan Bean JR MR#: [id number] : 1965 Acct:[id number] Age/Sex: 59 / M Adm Date: 5 Loc: 3T Room: [address] [place] [address] Type: ADM IN Attending Dr: Gomez Sunshine MD Copies to: ~ Date of Service: 03/10/2024 Subjective Subjective Narrative: Patient is feeling better, less discomfort. No chest pain, no abdominal pain. Exam Physical Exam Vital Signs: Temp Pulse Resp BP Pulse Ox O2 Del Method O2 Flow Rate 98.1 F 81 20 125/79 92 L Room Air 3 03/10/24 08:00 03/10/24 08:00 03/10/24 08:00 03/10/24 08:00 03/10/24 08:00 03/10/24 08:00 03/09/24 09:07 Narrative: Patient is sitting in a chair. Morbidly obese. No distress. Chest is clear, heart is regular. Abdomen soft. Increased abdominal girth therefore abdominal exam is inconclusive. Extensive erythema, induration and tenderness involving the left leg from the knee down to the ankle. Bullous formation involving the upper lateral aspect of the haines where there is a clinical suspicion of a superficial abscess. Palpable dorsalis pedis. Objective Lab Results 03/10/24 06:23 03/10/24 06:23 Microbiology Results Microbiology 03/09/24 05:50 Blood - Right Antecubital Blood Culture - Preliminary No Growth 1 Day 03/09/24 05:45 Blood - Right Hand Blood Culture - Preliminary No Growth 1 Day Meds Allergies and Active Meds Allergies No Known Allergies Allergy (Verified 12/01/22 09:23) Active Meds: Active Medications Generic Name Dose Route Start Last Admin Trade Name Freq PRN Reason Stop Dose Admin Acetaminophen 1,000 mg 03/09/24 01:46 Acetaminophen 500 Mg Tablet PO 03/09/25 01:45 Q6HR PRN Pain Scale 1 - 3 or fever Albuterol 2.5 mg 03/09/24 01:46 Albuterol Neb 2.5 Mg/3 Ml Vial.Neb INHALATION 03/09/25 01:45 Q3H PRN Cough/Wheeze Amlodipine Besylate 2.5 mg 03/09/24 13:00 03/10/24 08:49 Amlodipine 2.5 Mg Tablet PO 03/09/25 12:59 2.5 mg QAM MARI Administration Atorvastatin Calcium 20 mg 03/09/24 21:00 03/09/24 21:17 Atorvastatin 20 Mg Tablet PO 03/09/25 20:59 20 mg QPM MARI Administration Dextrose 0 gm 03/09/24 01:51 Dextrose 50% In Water 25 Gm/50 Ml Syringe IV-PUSH 03/09/25 01:50 PRN PRN Hypoglycemia Enoxaparin Sodium 40 mg 03/09/24 21:00 03/10/24 08:48 Enoxaparin 40 Mg/0.4 Ml Syringe SUBCUT 03/09/25 20:59 40 mg BID MARI Administration Ergocalciferol 1,250 mcg 03/16/24 09:00 Ergocalciferol 1,250 Mcg (50,000 Units) Capsule PO 03/16/25 08:59 Th@0900 MARI Glimepiride 4 mg 03/09/24 17:00 03/10/24 08:49 Glimepiride 4 Mg Tablet PO 03/09/25 16:59 4 mg BID.WITH.MEALS MARI Administration Glucose 0 gm 03/09/24 01:51 Dextrose 40% Gel 15 Gm Tube PO 03/09/25 01:50 PRN PRN Hypoglycemia Guaifenesin 20 ml 03/09/24 01:46 Guaifenesin Syrup 10 Ml Udc PO 03/09/25 01:45 Q6H PRN Cough Piperacillin Sod/Tazobactam Sod 4.5 gm in 100 mls @ 200 mls/hr 03/09/24 04:00 03/10/24 04:41 Zosyn IV 200 mls/hr Q6H MARI Administration Vancomycin HCl 1 gm in 250 mls @ 250 mls/hr 03/09/24 21:00 03/10/24 05:52 Vancomycin IV 250 mls/hr Q8H MARI Administration Insulin Aspart 0 units 03/09/24 08:00 03/10/24 08:49 Insulin Aspart 300 Units/3 Ml SUBCUT 03/09/25 07:59 4 units TID.WM.HS MARI Administration Protocol Insulin Aspart 5 units 03/10/24 11:30 Insulin Aspart 300 Units/3 Ml SUBCUT 03/10/25 11:29 TID.AC MARI Lisinopril 20 mg 03/09/24 21:00 03/09/24 21:17 Lisinopril 20 Mg Tablet PO 03/09/25 20:59 20 mg QPM MARI Administration Magnesium Oxide 400 mg 03/10/24 10:00 Magnesium Oxide 400 Mg Tablet PO 03/10/25 09:59 DAILY MARI Melatonin 5 mg 03/09/24 01:46 03/10/24 02:18 Melatonin 5 Mg Tablet PO 03/09/25 01:45 5 mg QHS PRN Administration Insomnia Metformin HCl 1,000 mg 03/09/24 17:00 03/10/24 08:48 Metformin 500 Mg Tablet PO 03/09/25 16:59 1,000 mg BID.WITH.MEALS MARI Administration Metoprolol Succinate 50 mg 03/10/24 09:00 03/10/24 08:49 Metoprolol Succinate 50 Mg Tab.Er.24h PO 03/10/25 08:59 50 mg QAM MARI Administration Ondansetron HCl 4 mg 03/09/24 01:46 Ondansetron 4 Mg/2 Ml Vial IV-PUSH 03/09/25 01:45 Q6H PRN Nausea And Vomiting Oxycodone HCl 5 mg 03/09/24 01:46 03/10/24 02:18 Oxycodone Ir 5 Mg Tablet PO 5 mg Q6HR PRN Administration Pain Scale 4 - 7 Sodium Chloride 0 ml 03/09/24 06:00 03/10/24 06:38 Sodium Chloride 0.9 % 10 Ml Syringe IV-PUSH 03/09/25 05:59 10 ml QSHIFT MARI Administration Vancomycin HCl 1 each 03/09/24 12:16 Vancomycin - Pharmacy Dosing 1 Each Miscell IV ONCE PRN ZZ.Pharmacy Consult Protocol A&P - Hospitalist Assessment/Plan (1) Sepsis: (2) Cellulitis: (3) Lymphedema: (4) Acute hypoxic respiratory failure: (5) Hypomagnesemia: (6) Hypophosphatemia: (7) Diabetes: Plan Sepsis and bacteremia present on admission secondary to extensive left leg cellulitis. Probable abscess formation. Patient was seen by orthopedic team who does not believe that patient has compartment syndrome nor abscess requiring I&D.. Rule out DVT request venous study. Requested venous study Continue broad-spectrum antibiotic. Repeat blood culture is negative thus far Diabetes, poor control. Resume preadmission home medications. Added sliding scale. Add to an already drawn sample 5 units 3 times a day with meals. DVT prophylaxis Lovenox 40 mg subcu twice a day. Hypertension Resume preadmission home medication Hypomagnesemia, hypophosphatemia Additional magnesium and phosphate supplementation. Documented By: Gomez Sunshine MD 03/10/24 0956 Signed By: <Electronically signed by Gomez Sunshine MD> 03/10/24 1000 [facility] Work Phone: [phone]) 957-938301-04-2025 [place] [address] Hospitalist Progress Note Signed Patient: Juan Bean JR MR#: [id number] : 1965 Acct:[id number] Age/Sex: 59 / M Adm Date: 5 Loc: Room: [address] [place] [address] Type: ADM IN Attending Dr: Gomez Sunshine MD Copies to: ~ Date of Service: 03/10/2024 Subjective Subjective Narrative: Patient is feeling better, less discomfort. No chest pain, no abdominal pain. Exam Physical Exam Vital Signs: Temp Pulse Resp BP Pulse Ox O2 Del Method O2 Flow Rate 98.1 F 81 20 125/79 92 L Room Air 3 03/10/24 08:00 03/10/24 08:00 03/10/24 08:00 03/10/24 08:00 03/10/24 08:00 03/10/24 08:00 03/09/24 09:07 Narrative: Patient is sitting in a chair. Morbidly obese. No distress. Chest is clear, heart is regular. Abdomen soft. Increased abdominal girth therefore abdominal exam is inconclusive. Extensive erythema, induration and tenderness involving the left leg from the knee down to the ankle. Bullous formation involving the upper lateral aspect of the haines where there is a clinical suspicion of a superficial abscess. Palpable dorsalis pedis. Objective Lab Results 03/10/24 06:23 03/10/24 06:23 Microbiology Results Microbiology 03/09/24 05:50 Blood - Right Antecubital Blood Culture - Preliminary No Growth 1 Day 03/09/24 05:45 Blood - Right Hand Blood Culture - Preliminary No Growth 1 Day Meds Allergies and Active Meds Allergies No Known Allergies Allergy (Verified 12/01/22 09:23) Active Meds: Active Medications Generic Name Dose Route Start Last Admin Trade Name Freq PRN Reason Stop Dose Admin Acetaminophen 1,000 mg 03/09/24 01:46 Acetaminophen 500 Mg Tablet PO 03/09/25 01:45 Q6HR PRN Pain Scale 1 - 3 or fever Albuterol 2.5 mg 03/09/24 01:46 Albuterol Neb 2.5 Mg/3 Ml Vial.Neb INHALATION 03/09/25 01:45 Q3H PRN Cough/Wheeze Amlodipine Besylate 2.5 mg 03/09/24 13:00 03/10/24 08:49 Amlodipine 2.5 Mg Tablet PO 03/09/25 12:59 2.5 mg QAM MARI Administration Atorvastatin Calcium 20 mg 03/09/24 21:00 03/09/24 21:17 Atorvastatin 20 Mg Tablet PO 03/09/25 20:59 20 mg QPM MARI Administration Dextrose 0 gm 03/09/24 01:51 Dextrose 50% In Water 25 Gm/50 Ml Syringe IV-PUSH 03/09/25 01:50 PRN PRN Hypoglycemia Enoxaparin Sodium 40 mg 03/09/24 21:00 03/10/24 08:48 Enoxaparin 40 Mg/0.4 Ml Syringe SUBCUT 03/09/25 20:59 40 mg BID MARI Administration Ergocalciferol 1,250 mcg 03/16/24 09:00 Ergocalciferol 1,250 Mcg (50,000 Units) Capsule PO 03/16/25 08:59 Th@0900 MARI Glimepiride 4 mg 03/09/24 17:00 03/10/24 08:49 Glimepiride 4 Mg Tablet PO 03/09/25 16:59 4 mg BID.WITH.MEALS MARI Administration Glucose 0 gm 03/09/24 01:51 Dextrose 40% Gel 15 Gm Tube PO 03/09/25 01:50 PRN PRN Hypoglycemia Guaifenesin 20 ml 03/09/24 01:46 Guaifenesin Syrup 10 Ml Udc PO 03/09/25 01:45 Q6H PRN Cough Piperacillin Sod/Tazobactam Sod 4.5 gm in 100 mls @ 200 mls/hr 03/09/24 04:00 03/10/24 04:41 Zosyn IV 200 mls/hr Q6H MARI Administration Vancomycin HCl 1 gm in 250 mls @ 250 mls/hr 03/09/24 21:00 03/10/24 05:52 Vancomycin IV 250 mls/hr Q8H MARI Administration Insulin Aspart 0 units 03/09/24 08:00 03/10/24 08:49 Insulin Aspart 300 Units/3 Ml SUBCUT 03/09/25 07:59 4 units TID.WM.HS MARI Administration Protocol Insulin Aspart 5 units 03/10/24 11:30 Insulin Aspart 300 Units/3 Ml SUBCUT 03/10/25 11:29 TID.AC MARI Lisinopril 20 mg 03/09/24 21:00 03/09/24 21:17 Lisinopril 20 Mg Tablet PO 03/09/25 20:59 20 mg QPM MARI Administration Magnesium Oxide 400 mg 03/10/24 10:00 Magnesium Oxide 400 Mg Tablet PO 03/10/25 09:59 DAILY MARI Melatonin 5 mg 03/09/24 01:46 03/10/24 02:18 Melatonin 5 Mg Tablet PO 03/09/25 01:45 5 mg QHS PRN Administration Insomnia Metformin HCl 1,000 mg 03/09/24 17:00 03/10/24 08:48 Metformin 500 Mg Tablet PO 03/09/25 16:59 1,000 mg BID.WITH.MEALS MARI Administration Metoprolol Succinate 50 mg 03/10/24 09:00 03/10/24 08:49 Metoprolol Succinate 50 Mg Tab.Er.24h PO 03/10/25 08:59 50 mg QAM MARI Administration Ondansetron HCl 4 mg 03/09/24 01:46 Ondansetron 4 Mg/2 Ml Vial IV-PUSH 03/09/25 01:45 Q6H PRN Nausea And Vomiting Oxycodone HCl 5 mg 03/09/24 01:46 03/10/24 02:18 Oxycodone Ir 5 Mg Tablet PO 5 mg Q6HR PRN Administration Pain Scale 4 - 7 Sodium Chloride 0 ml 03/09/24 06:00 03/10/24 06:38 Sodium Chloride 0.9 % 10 Ml Syringe IV-PUSH 03/09/25 05:59 10 ml QSHIFT MARI Administration Vancomycin HCl 1 each 03/09/24 12:16 Vancomycin - Pharmacy Dosing 1 Each Miscell IV ONCE PRN ZZ.Pharmacy Consult Protocol A&P - Hospitalist Assessment/Plan (1) Sepsis: (2) Cellulitis: (3) Lymphedema: (4) Acute hypoxic respiratory failure: (5) Hypomagnesemia: (6) Hypophosphatemia: (7) Diabetes: Plan Sepsis and bacteremia present on admission secondary to extensive left leg cellulitis. Probable abscess formation. Patient was seen by orthopedic team who does not believe that patient has compartment syndrome nor abscess requiring I&D.. Rule out DVT request venous study. Requested venous study Continue broad-spectrum antibiotic. Repeat blood culture is negative thus far Diabetes, poor control. Resume preadmission home medications. Added sliding scale. Add to an already drawn sample 5 units 3 times a day with meals. DVT prophylaxis Lovenox 40 mg subcu twice a day. Hypertension Resume preadmission home medication Hypomagnesemia, hypophosphatemia Additional magnesium and phosphate supplementation. Documented By: Gomez Sunshine MD 03/10/24 0956 Signed By: 03/10/[address] [place], [place] 2634801-04-2025 Consult note Author Brett Chang [facility] Date/TimeJanuary 2024 7:46[place] [address] Orthopedic Consult Note Signed Patient: Juan Bean JR MR#: [id number] : 1965 Acct:[id number] Age/Sex: 59 / M Adm Date: 5 Loc: Room: [address] [place] [address] Type: ADM IN Attending Dr: Gomez Sunshine MD Copies to: NON STAFF MD Brett Franks MD~ History of Present Illness HPI Consult date: 03/10/2024 Requesting provider: Gomez Sunshine MD History of present illness: Patient is a 59-year-old male who states that he has noted significant swelling and redness about the left lower leg over the past week. He states this has happened previously. No specific injury. 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 Pain in right leg Phimosis Scoliosis deformity of spine Surgical History History of tonsillectomy Family History (Updated 03/09/24 @ 03:23 by Yecenia Meléndez APRN) Mother Myocardial infarction Keri Gehrig disease Father Myocardial infarction Renal disease Sister Cancer Father Hypertension Father Hypertension Kidney failure Family/Other Family history of other condition Legacy FamHx Problem: SISTER FROM CANCER-NOT SURE WHAT KIND IT WAS Mother Diabetes Type 2 diabetes mellitus Legacy FamHx Problem: DM2 Sister Brother Diabetes Social History Smoking Status: Former smoker Tobacco Type: cigarettes Substance Use Type: Alcohol (daily whiskey) Social History Comments: adult son stays with patient Allergies & Medications Medications and Allergies Allergies No Known Allergies Allergy (Verified 12/01/22 09:23) Home Medications amlodipine 5 mg tablet 5 mg PO QAM 05/17/22 [History Confirmed 03/08/24] ergocalciferol (vitamin D2) 1,250 mcg (50,000 unit) capsule 1,250 unit PO QWEEK 05/17/22 [History Confirmed 03/08/24] glimepiride 4 mg tablet 4 mg PO BID 05/17/22 [History Confirmed 03/08/24] lisinopril 20 mg tablet 20 mg PO QPM 05/17/22 [History Confirmed 03/08/24] lisinopril 20 mg-hydrochlorothiazide 25 mg tablet 1 tab PO QAM 05/17/22 [History Confirmed 03/08/24] meloxicam 15 mg tablet 15 mg PO DAILY 05/17/22 [History Confirmed 03/08/24] metformin 1,000 mg tablet 1,000 mg PO BID 05/17/22 [History Confirmed 03/08/24] metoprolol succinate 50 mg tablet,extended release 24 hr 50 mg PO QAM 05/17/22 [History Confirmed 03/08/24] pioglitazone 45 mg tablet 45 mg PO QAM 05/17/22 [History Confirmed 03/09/24] simvastatin 40 mg tablet 40 mg PO QPM 05/17/22 [History Confirmed 03/08/24] tizanidine 4 mg capsule (Zanaflex) 4 mg PO QPM PRN Pain 05/17/22 [History Confirmed 03/09/24] Exam Physical Exam Vital Signs: Temp Pulse Resp BP Pulse Ox O2 Del Method O2 Flow Rate 98.9 F 97 20 136/85 93 L Room Air 3 03/10/24 00:00 03/10/24 00:00 03/10/24 00:00 03/10/24 00:00 03/10/24 00:00 03/10/24 00:00 03/09/24 09:07 Narrative: Patient sitting up in bed responding appropriately Const General: cooperative and no acute distress HEENT Head: normal to inspection Neck Neck: normal visual inspection Resp Effort & Inspection: normal respiratory effort Extrem Other: Moving both upper extremities without difficulty. Good muscle tone and joint stability bilateral Left lower leg: Notable redness and swelling about the entire lower leg and foot. Large blister noted over the anterolateral leg. Compartments are soft. Patient is passively and actively moving the ankle without severe pain. Nonpainful active knee flexion and extension. No notable redness or swelling about the right leg Results - Orthopedics Lab Results 03/10/24 06:23 03/10/24 06:23 Labs: Laboratory Results - Last 48 hrs. 03/10/24 06:43: POC Glucose 240 03/10/24 06:23: Corrected WBC 10.5, Uncorrected WBC Count 10.5, RBC 3.40 L, Hgb 10.6 L, Hct 31.1 L,MCV 91.3, MCH 31.2, MCHC 34.2, RDW 14.0, Plt Count 184, MPV 8.1, Neut % (Auto) 82.8, Lymph % (Auto)8.2, Smyth % (Auto) 8.2, Eos % (Auto) 0.6, Baso % (Auto) 0.2, Nucleat RBC Rel Count 0.1, Neut # (Auto) 8.7 H, Lymph # (Auto) 0.9 L, Smyth # (Auto) 0.9 H, Eos # (Auto) 0.1, Baso # (Auto) 0.0, PHA Creatinine Clear 170.70, Sodium 129 L, Potassium 3.7, Chloride 94 L, Carbon Dioxide 30.7, Anion Gap 8.0, BUN 15, Creatinine 0.82, Est GFR (CKD-EPI) > 60.0, Glucose 222 H, Calcium 8.3 L, Magnesium 1.9, Total Bilirubin 0.8, AST 39, ALT 36, Alkaline Phosphatase 54, Total Protein 6.3 L, Albumin 3.2 L, Globulin 3.1, Albumin/Globulin Ratio 1.0 03/10/24 02:25: Urine Color Yellow, Urine Appearance Clear, Urine pH 6.0, Ur Specific Dora 1.037H, Urine Protein 50 H, Urine Glucose (UA) Normal, Urine Ketones Negative, Urine Occult Blood 1+ H, Urine Nitrite Negative, Urine Bilirubin Negative, Urine Urobilinogen Normal, Ur Leukocyte Esterase Negative, Urine RBC 1-2, Urine WBC 5-9 H, Ur Squamous Epith Cells 1-2, Urine Bacteria Rare, Hyaline Casts None, Urine Mucus Rare 03/09/24 20:48: POC Glucose 212 03/09/24 16:05: POC Glucose 328 03/09/24 11:36: POC Glucose 240 03/09/24 06:26: POC Glucose 242 03/09/24 05:55: Phosphorus 1.9 L 03/09/24 05:50: Corrected WBC 13.9 H, Uncorrected WBC Count 13.9 H, RBC 3.67 L, Hgb 11.4 L, Hct 33.6 L, MCV 91.5, MCH 31.0, MCHC 33.8, RDW 14.0, Plt Count 196, MPV 8.0, Neut % (Auto) 89.3, Lymph % (Auto) 5.7, Smyth % (Auto) 4.5, Eos % (Auto)0.0, Baso % (Auto) 0.5, Nucleat RBC Rel Count 0.3, Neut # (Auto) 12.4 H, Lymph #(Auto) 0.8 L, Smyth # (Auto) 0.6, Eos # (Auto) 0.0, Baso # (Auto) 0.1, ESR 67 H,PT 14.3 H, INR 1.2, APTT 36.5, PHA Creatinine Clear 166.63, Sodium 131 L, Potassium 3.2 L, [id number] L, Carbon Dioxide 29.4, Anion Gap 10.8, BUN 15, Creatinine 0.84, Est GFR (CKD-EPI) > 60.0, Glucose 185 H, Estimat Average Glucose 192, Hemoglobin A1c 8.3 H, Calcium 8.4 L, Magnesium 1.4 L, C-Reactive Prot, Quant 27.1 H 03/09/24 02:34: PHA Creatinine Clear 162.76, Sodium 131 L, Potassium 3.6, Chloride 94 L, Carbon Dioxide 29.2, Anion Gap 11.4, BUN 16, Creatinine 0.86, EstGFR (CKD-EPI) > 60.0, Glucose 196 H, Calcium 8.4 L H & H 03/09/24 03/10/24 Range/Units 05:50 06:23 Hgb 11.4 L 10.6 L (13.0-17.0) g/dL Hct 33.6 L 31.1 L (38.8-50.0) % Coagulation 03/09/24 Range/Units 05:50 INR 1.2 All other labs are normal. Microbiology Results Microbiology: Microbiology - Results from entire visit 03/09/24 05:50 Blood - Right Antecubital Blood Culture - Preliminary No Growth 1 Day 03/09/24 05:45 Blood - Right Hand Blood Culture - Preliminary No Growth 1 Day Imaging & Diagnostic Results Imaging/Diagnostics: CT scan demonstrates generalized soft tissue swelling left lower leg particular involving the anterolateral aspect in the subcutaneous tissue Assessment/Plan (1) Cellulitis: Code(s): L03.90 - Cellulitis, unspecified Plan This appears to be significant cellulitis left lower leg. No evidence of compartment syndrome. I would recommend continue range of motion exercises for knee and ankle to maintain vascularity. Warm packs to the left leg as well as elevation. Continue IV antibiotics. No plans for surgery at this time. Documented By: Brett Chang MD 03/10/24 0740 Signed By: <Electronically signed by MD Brett Chang> 03/10/24 [facility] [facility] Work Phone: [phone]) 537-962801-04-2025 [place] [id number] Orthopedic Consult Note Signed Patient: Juan Bean JR MR#: [id number] : 1965 Acct:[id number] Age/Sex: 59 / M Adm Date: 5 Loc: 3T Room: [address] [place] [address] Type: ADM IN Attending Dr: Gomez Sunshine MD Copies to: NON STAFF MD Brett Franks MD~ History of Present Illness HPI Consult date: 03/10/2024 Requesting provider: Gomez Sunshine MD History of present illness: Patient is a 59-year-old male who states that he has noted significant swelling and redness about the left lower leg over the past week. He states this has happened previously. No specific injury. 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 Pain in right leg Phimosis Scoliosis deformity of spine Surgical History History of tonsillectomy Family History (Updated 03/09/24 @ 03:23 by Yecenia Meléndez APRN) Mother Myocardial infarction Keri Gehrig disease Father Myocardial infarction Renal disease Sister Cancer Father Hypertension Father Hypertension Kidney failure Family/Other Family history of other condition Legacy FamHx Problem: SISTER FROM CANCER-NOT SURE WHAT KIND IT WAS Mother Diabetes Type 2 diabetes mellitus Legacy FamHx Problem: DM2 Sister Brother Diabetes Social History Smoking Status: Former smoker Tobacco Type: cigarettes Substance Use Type: Alcohol (daily whiskey) Social History Comments: adult son stays with patient Allergies & Medications Medications and Allergies Allergies No Known Allergies Allergy (Verified 12/01/22 09:23) Home Medications amlodipine 5 mg tablet 5 mg PO QAM 05/17/22 [History Confirmed 03/08/24] ergocalciferol (vitamin D2) 1,250 mcg (50,000 unit) capsule 1,250 unit PO QWEEK 05/17/22 [History Confirmed 03/08/24] glimepiride 4 mg tablet 4 mg PO BID 05/17/22 [History Confirmed 03/08/24] lisinopril 20 mg tablet 20 mg PO QPM 05/17/22 [History Confirmed 03/08/24] lisinopril 20 mg-hydrochlorothiazide 25 mg tablet 1 tab PO QAM 05/17/22 [History Confirmed 03/08/24] meloxicam 15 mg tablet 15 mg PO DAILY 05/17/22 [History Confirmed 03/08/24] metformin 1,000 mg tablet 1,000 mg PO BID 05/17/22 [History Confirmed 03/08/24] metoprolol succinate 50 mg tablet,extended release 24 hr 50 mg PO QAM 05/17/22 [History Confirmed 03/08/24] pioglitazone 45 mg tablet 45 mg PO QAM 05/17/22 [History Confirmed 03/09/24] simvastatin 40 mg tablet 40 mg PO QPM 05/17/22 [History Confirmed 03/08/24] tizanidine 4 mg capsule (Zanaflex) 4 mg PO QPM PRN Pain 05/17/22 [History Confirmed 03/09/24] Exam Physical Exam Vital Signs: Temp Pulse Resp BP Pulse Ox O2 Del Method O2 Flow Rate 98.9 F 97 20 136/85 93 L Room Air 3 03/10/24 00:00 03/10/24 00:00 03/10/24 00:00 03/10/24 00:00 03/10/24 00:00 03/10/24 00:00 03/09/24 09:07 Narrative: Patient sitting up in bed responding appropriately Const General: cooperative and no acute distress HEENT Head: normal to inspection Neck Neck: normal visual inspection Resp Effort & Inspection: normal respiratory effort Extrem Other: Moving both upper extremities without difficulty. Good muscle tone and joint stability bilateral Left lower leg: Notable redness and swelling about the entire lower leg and foot. Large blister noted over the anterolateral leg. Compartments are soft. Patient is passively and actively moving the ankle without severe pain. Nonpainful active knee flexion and extension. No notable redness or swelling about the right leg Results - Orthopedics Lab Results 03/10/24 06:23 03/10/24 06:23 Labs: Laboratory Results - Last 48 hrs. 03/10/24 06:43: POC Glucose 240 03/10/24 06:23: Corrected WBC 10.5, Uncorrected WBC Count 10.5, RBC 3.40 L, Hgb 10.6 L, Hct 31.1 L,MCV 91.3, MCH 31.2, MCHC 34.2, RDW 14.0, Plt Count 184, MPV 8.1, Neut % (Auto) 82.8, Lymph % (Auto)8.2, Smyth % (Auto) 8.2, Eos % (Auto) 0.6, Baso % (Auto) 0.2, Nucleat RBC Rel Count 0.1, Neut # (Auto) 8.7 H, Lymph # (Auto) 0.9 L, Smyth # (Auto) 0.9 H, Eos # (Auto) 0.1, Baso # (Auto) 0.0, PHA Creatinine Clear 170.70, Sodium 129 L, Potassium 3.7, Chloride 94 L, Carbon Dioxide 30.7, Anion Gap 8.0, BUN 15, Creatinine 0.82, Est GFR (CKD-EPI) > 60.0, Glucose 222 H, Calcium 8.3 L, Magnesium 1.9, Total Bilirubin 0.8, AST 39, ALT 36, Alkaline Phosphatase 54, Total Protein 6.3 L, Albumin 3.2 L, Globulin 3.1, Albumin/Globulin Ratio 1.0 03/10/24 02:25: Urine Color Yellow, Urine Appearance Clear, Urine pH 6.0, Ur Specific Dora 1.037H, Urine Protein 50 H, Urine Glucose (UA) Normal, Urine Ketones Negative, Urine Occult Blood 1+ H, Urine Nitrite Negative, Urine Bilirubin Negative, Urine Urobilinogen Normal, Ur Leukocyte Esterase Negative, Urine RBC 1-2, Urine WBC 5-9 H, Ur Squamous Epith Cells 1-2, Urine Bacteria Rare, Hyaline Casts None, Urine Mucus Rare 03/09/24 20:48: POC Glucose 212 03/09/24 16:05: POC Glucose 328 03/09/24 11:36: POC Glucose 240 03/09/24 06:26: POC Glucose 242 03/09/24 05:55: Phosphorus 1.9 L 03/09/24 05:50: Corrected WBC 13.9 H, Uncorrected WBC Count 13.9 H, RBC 3.67 L, Hgb 11.4 L, Hct 33.6 L, MCV 91.5, MCH 31.0, MCHC 33.8, RDW 14.0, Plt Count 196, MPV 8.0, Neut % (Auto) 89.3, Lymph % (Auto) 5.7, Smyth % (Auto) 4.5, Eos % (Auto)0.0, Baso % (Auto) 0.5, Nucleat RBC Rel Count 0.3, Neut # (Auto) 12.4 H, Lymph #(Auto) 0.8 L, Smyth # (Auto) 0.6, Eos # (Auto) 0.0, Baso # (Auto) 0.1, ESR 67 H,PT 14.3 H, INR 1.2, APTT 36.5, PHA Creatinine Clear 166.63, Sodium 131 L, Potassium 3.2 L, Oczubeep44 L, Carbon Dioxide 29.4, Anion Gap 10.8, BUN 15, Creatinine 0.84, Est GFR (CKD-EPI) > 60.0, Glucose 185 H, Estimat Average Glucose 192, Hemoglobin A1c 8.3 H, Calcium 8.4 L, Magnesium 1.4 L, C-Reactive Prot, Quant 27.1 H 03/09/24 02:34: PHA Creatinine Clear 162.76, Sodium 131 L, Potassium 3.6, Chloride 94 L, Carbon Dioxide 29.2, Anion Gap 11.4, BUN 16, Creatinine 0.86, EstGFR (CKD-EPI) > 60.0, Glucose 196 H, Calcium 8.4 L H & H 03/09/24 03/10/24 Range/Units 05:50 06:23 Hgb 11.4 L 10.6 L (13.0-17.0) g/dL Hct 33.6 L 31.1 L (38.8-50.0) % Coagulation 03/09/24 Range/Units 05:50 INR 1.2 All other labs are normal. Microbiology Results Microbiology: Microbiology - Results from entire visit 03/09/24 05:50 Blood - Right Antecubital Blood Culture - Preliminary No Growth 1 Day 03/09/24 05:45 Blood - Right Hand Blood Culture - Preliminary No Growth 1 Day Imaging & Diagnostic Results Imaging/Diagnostics: CT scan demonstrates generalized soft tissue swelling left lower leg particular involving the anterolateral aspect in the subcutaneous tissue Assessment/Plan (1) Cellulitis: Code(s): L03.90 - Cellulitis, unspecified Plan This appears to be significant cellulitis left lower leg. No evidence of compartment syndrome. I would recommend continue range of motion exercises for knee and ankle to maintain vascularity. Warm packs to the left leg as well as elevation. Continue IV antibiotics. No plans for surgery at this time. Documented By: Brett Chang MD 03/10/24 0740 Signed By: 03/10/24 0746 [facility]01-03-2025 Radiology Diagnostic study note [facility] [place] [address] [place] [address] CT Scan Report Signed Patient: Juan Bean JR MR#: [id number] : 1965 Acct:[id number] Age/Sex: 59 / M ADM Date: 5 Loc: Room: [address] [place] [address] Type: ADM IN Attending Dr: Gomez Sunshine MD Copies to: Gomez Sunshine MD~ Ordering Provider: Gomez Sunshine MD Date of Service: 03/09/24 CT/CT lower leg LT w con: deep tissue abscess CT lower leg LT w con 03/09/2024 1:28 PM SIGNS AND SYMPTOMS: Tenderness and redness from left knee to left ankle with bulging in the pretibial soft tissues, leukocytosis, rule out abscess TECHNIQUE: Multidetector CT axial slices of the left lower leg with IV contrast.Multiplanar reformats were performed and viewed on a separate workstation and reviewed to further define anatomy and possible pathology. CT was performed withone or more of the following dose reduction techniques: Automa mariah exposure control, adjustment of the mA and/or kV according to patient size, or use of iterativereconstruction technique. CONTRAST: 90 mL of intravenous Isovue-300 COMPARISON: None. FINDINGS: There is a healing transverse aortic fracture of the mid body of the navicular with periosteal new bone incorporation. There is enthesophyte formation along the lateral margin of the navicular and cuneiforms. The tibiotalar joint space is preserved. No osteolytic or bony destructive process is noted. There is diffuse soft tissue swelling. There is a focal area of soft tissue swelling involving the cutaneous soft tissues of the anterior/lateral aspect of the mid haines which may represent a cutaneous abscess or sebaceous cyst. No peripherally enhancing subcutaneous abscess. Vascular calcifications are noted in the popliteal artery, anterior tibial artery, and posterior tibial artery. CT/CT lower leg LT w con IMPRESSION: No osteolytic or bony destructive process is noted. No peripherally enhancing subcutaneous abscess. There is a focal area of soft tissue swelling involving the cutaneous soft tissues of the anterior/lateral aspect of the mid haines which may represent a cutaneous abscess or sebaceous cyst. There is diffuse soft tissue edema suggesting cellulitis. Impression dictated by: Tyrese Coon M.D.03/09/2024 7:51 PM Dictation Location: [place] [address] Transcribed By: GISSELL 03/09/241950 Dictated By: Tyrese Coon II, MD 03/09/241943 Signed By: 03/09/241950 [facility] Work Phone: 1(917) 333-834501-03-2025 Progress note Author Gomez Sunshine [facility] Date/TimeJanuary 2024 12:24pm [place] [address] Hospitalist Progress Note Signed Patient: Juan Bean JR MR#: [id number] : 1965 Acct:[id number] Age/Sex: 59 / M Adm Date: 5 Loc: Room: [address] [place] [address] Type: ADM IN Attending Dr: Gomez Sunshine MD Copies to: ~ Date of Service: 03/09/2024 Subjective Subjective Narrative: Mr. Bean is a 59-year-old male with a PMH of HTN, T2DM, HLD, morbidly obese?BMI 55.6 that [facility] for redness to his left leg on March 07. Patient states that he had cellulitis to the left leg last year and he believes it has been red since. But his daughter noticed increased redness last week. States on Tuesday he was driving his children around shopping and hedeveloped fever and chills. Did complain of shortness of breath, denied chest pain, nausea vomiting. He also states that there is increased swelling to his left leg. States he quit smoking 29 years ago, daily whiskey drink?reports at least 2 drinks a day. Denies illicit drug use. [facility] chart review?in the emergency room he met sepsis criteria?white blood cell count of 11.7, lactic acid 2.8, febrile and tachycardic. Received 2 L saline bolus, acetaminophen, Zosyn and vancomycin. Chest x-ray showed no acute cardiopulmonary process. He was also noted to be acutely hypoxic, oxygen was applied. Repeat labs?WBC 13.1, H&H 11.7/35.4, CMP unremarkable. UA with darkyellow, clear urine, negative for infection. VBG with pH 7.451, pCO2 42.3. Repeat lactic acid was 2.4. Lactic acid was drawn supriya.m. down to 1. Magnesium is 1.3. Troponins were negative. CRP 12.72. Nasal swab was negative for COVID, influenza and RSV. Blood culture positive for Streptococcus SP, pending final. CT of the chest showed trace amount of basilardiscoid atelectasis or scarring, infectious infiltrates felt less likely. Venous Doppler of bilateral lower extremities was negative for DVT. Chest x-raywas repeated showed developing moderate subsegmental atelectasis at the right lung base and a mild left basilar atelectasis. EKGs sinus tachycardia with RBBB. Family requested transfer to [facility]. He was treated with vancomycin, Zosyn and 1 dose of ceftriaxone. With IV hydration overnight during his stay. He was transferred here to [facility] as inpatient to the [facility] telemetry floor. Exam Physical Exam Vital Signs: Temp Pulse Resp BP Pulse Ox O2 Del Method O2 Flow Rate 97.3 F L 97 20 136/75 91 L Nasal Cannula 3 03/09/24 07:52 03/09/24 07:52 03/09/24 07:52 03/09/24 07:52 03/09/24 07:52 03/09/24 09:07 03/09/24 09:07 Objective Lab Results 03/09/24 05:50 03/09/24 05:50 Meds Allergies and Active Meds Allergies No Known Allergies Allergy (Verified 12/01/22 09:23) Active Meds: Active Medications Generic Name Dose Route Start Last Admin Trade Name Freq PRN Reason Stop Dose Admin Acetaminophen 1,000 mg 03/09/24 01:46 Acetaminophen 500 Mg Tablet PO 03/09/25 01:45 Q6HR PRN Pain Scale 1 - 3 or fever Albuterol 2.5 mg 03/09/24 01:46 Albuterol Neb 2.5 Mg/3 Ml Vial.Neb INHALATION 03/09/25 01:45 Q3H PRN Cough/Wheeze Amlodipine Besylate 2.5 mg 03/09/24 12:20 Amlodipine 2.5 Mg Tablet PO 03/09/25 12:19 QAM MARI Dextrose 0 gm 03/09/24 01:51 Dextrose 50% In Water 25 Gm/50 Ml Syringe IV-PUSH 03/09/25 01:50 PRN PRN Hypoglycemia Enoxaparin Sodium 40 mg 03/09/24 21:00 Enoxaparin 40 Mg/0.4 Ml Syringe SUBCUT 03/09/25 20:59 BID MARI Ergocalciferol mcg 03/16/24 09:00 Ergocalciferol 1,250 Mcg (50,000 Units) Capsule PO 03/16/25 08:59 QWEEK MARI Glimepiride 4 mg 03/09/24 12:30 Glimepiride 4 Mg Tablet PO 03/09/25 12:29 BID [facility] Glucose 0 gm 03/09/24 01:51 Dextrose 40% Gel 15 Gm Tube PO 03/09/25 01:50 PRN PRN Hypoglycemia Guaifenesin 20 ml 03/09/24 01:46 Guaifenesin Syrup 10 Ml Udc PO 03/09/25 01:45 Q6H PRN Cough Piperacillin Sod/Tazobactam Sod 4.5 gm in 100 mls @ 200 mls/hr 03/09/24 04:00 03/09/24 09:09 Zosyn IV Not Given Q6H [facility] Magnesium Sulfate 4 gm in 100 mls @ 25 mls/hr 03/09/24 09:15 03/09/24 09:29 Magnesium Sulf 4 Gm-*Swfi* IV 03/09/24 13:14 25 mls/hr ONCE ONE Administration Vancomycin HCl 1.25 gm/ 275 mls @ 183.333 mls/hr 03/09/24 12:30 Dextrose IV 03/09/25 12:29 Q12H [facility] Insulin Aspart 0 units 03/09/24 08:00 03/09/24 08:46 Insulin Aspart 300 Units/3 Ml SUBCUT 03/09/25 07:59 2 units TID.WM.HS MARI Administration Protocol Lisinopril 20 mg 03/09/24 21:00 Lisinopril 20 Mg Tablet PO 03/09/25 20:59 QPM MARI Melatonin 5 mg 03/09/24 01:46 Melatonin 5 Mg Tablet PO 03/09/25 01:45 QHS PRN Insomnia Metoprolol Succinate 50 mg 03/10/24 09:00 Metoprolol Succinate 50 Mg Tab.Er.24h PO 03/10/25 08:59 QAM [facility] Non-Formulary Medication 1,000 mg 03/09/24 21:00 Metformin PO 03/09/25 20:59 BID [facility] Non-Formulary Medication 40 mg 03/09/24 21:00 Simvastatin PO 03/09/25 20:59 QPM MARI Ondansetron HCl 4 mg 03/09/24 01:46 Ondansetron 4 Mg/2 Ml Vial IV-PUSH 03/09/25 01:45 Q6H PRN Nausea And Vomiting Oxycodone HCl 5 mg 03/09/24 01:46 Oxycodone Ir 5 Mg Tablet PO Q6HR PRN Pain Scale 4 - 7 Sodium Chloride 0 ml 03/09/24 06:00 03/09/24 06:39 Sodium Chloride 0.9 % 10 Ml Syringe IV-PUSH 03/09/25 05:59 10 ml QSHIFT MARI Administration Vancomycin HCl 1 each 03/09/24 12:16 Vancomycin - Pharmacy Dosing 1 Each Miscell INTRAPERIT ONCE PRN ZZ.Pharmacy Consult Protocol A&P - Hospitalist Assessment/Plan (1) Sepsis: (2) Cellulitis: (3) Lymphedema: (4) Acute hypoxic respiratory failure: Plan Acute hypoxic respiratory failure ? Continue oxygen as needed, keep SpO2 greater than 90% ? Albuterol nebs as needed ? Venous Doppler BLE negative at [facility] ? Bibasilar atelectasis on chest x-ray ? Pep therapy Sepsis- likely due to cellulitis, septic workup received at [place] Cellulitis to LLE Lymphedema to LLE likely due to cellulitis - Blood culture x 1 with streptococcus on preliminary result, started on Vanco, pip/tazo at [facility] [place], received one dose 2gm ceftriaxone on 03/07/24, preliminary culture results on [employer] with E-coli - Repeat blood cultures, CBC, BMP, Mag, ESR, CRP - Continue pip/tazo- pharmacy to dose - Echo was performed at [facility]- please obtain results Chronic conditions HTN- amlodipine, lisinopril, HCTZ T2DM- glimepiride, pioglitazone, fingersticks ACHS, SSIC, hold metformin DVT PPx?heparin Diet order?1800 ADA CODE STATUS?full code The aforementioned paragrapg was documented by my colleague Patient is morbidly obese. Patient weighs about 450 pounds. Extensive erythema, induration and tenderness involving the left leg from the knee down to the ankle. Bulging involving the lateral aspect of the left haines suspecting to have abscess formation. Chestis clear, heart is regular. Abdomen soft. Sepsis and bacteremia present on admission secondary to extensive left leg cellulitis. Rule out abscess formation in the lateral aspect of the left calf Requested CT scan of the leg. Rule out DVT request venous study. Rule out compartment syndrome, requested Ortho evaluation. Continue broad-spectrum antibiotic. Repeat blood culture in 24 to 48 hours. Diabetes, poor control. Resume preadmission home medications. Added sliding scale. DVT prophylaxis Lovenox 40 mg subcu twice a day. Hypertension Resume preadmission home medication Documented By: Gomez Sunshine MD 03/09/24 1222 Signed By: <Electronically signed by Gomez Sunshine MD> 03/09/24 4765 [facility] Work Phone: 1(295) 377-737701-03-2025 [place] [id number] Hospitalist Progress Note Signed Patient: Juan Bean JR MR#: [id number] : 1965 Acct:[id number] Age/Sex: 59 / M Adm Date: 5 Loc: 3T Room: 0C0384-6 Type: ADM IN Attending Dr: Gomez Sunshine MD Copies to: ~ Date of Service: 03/09/2024 Subjective Subjective Narrative: Mr. Bean is a 59-year-old male with a PMH of HTN, T2DM, HLD, morbidly obese?BMI 55.6 that [facility] for redness to his left leg on March 07. Patient states that he had cellulitis to the left leg last year and he believes it has been red since. But his daughter noticed increased redness last week. States on Tuesday he was driving his children around shopping and hedeveloped fever and chills. Did complain of shortness of breath, denied chest pain, nausea vomiting. He also states that there is increased swelling to his left leg. States he quit smoking 29 years ago, daily whiskey drink?reports at least 2 drinks a day. Denies illicit drug use. [facility] chart review?in the emergency room he met sepsis criteria?white blood cell count of 11.7, lactic acid 2.8, febrile and tachycardic. Received 2 L saline bolus, acetaminophen, Zosyn and vancomycin. Chest x-ray showed no acute cardiopulmonary process. He was also noted to be acutely hypoxic, oxygen was applied. Repeat labs?WBC 13.1, H&H 11.7/35.4, CMP unremarkable. UA with darkyellow, clear urine, negative for infection. VBG with pH 7.451, pCO2 42.3. Repeat lactic acid was 2.4. Lactic acid was drawn supriya.m. down to 1. Magnesium is 1.3. Troponins were negative. CRP 12.72. Nasal swab was negative for COVID, influenza and RSV. Blood culture positive for Streptococcus SP, pending final. CT of the chest showed trace amount of basilardiscoid atelectasis or scarring, infectious infiltrates felt less likely. Venous Doppler of bilateral lower extremities was negative for DVT. Chest x-raywas repeated showed developing moderate subsegmental atelectasis at the right lung base and a mild left basilar atelectasis. EKGs sinus tachycardia with RBBB. Family requested transfer to [facility]. He was treated with vancomycin, Zosyn and 1 dose of ceftriaxone. With IV hydration overnight during his stay. He was transferred here to [facility] as inpatient to the [facility] telemetry floor. Exam Physical Exam Vital Signs: Temp Pulse Resp BP Pulse Ox O2 Del Method O2 Flow Rate 97.3 F L 97 20 136/75 91 L Nasal Cannula 3 03/09/24 07:52 03/09/24 07:52 03/09/24 07:52 03/09/24 07:52 03/09/24 07:52 03/09/24 09:07 03/09/24 09:07 Objective Lab Results 03/09/24 05:50 03/09/24 05:50 Meds Allergies and Active Meds Allergies No Known Allergies Allergy (Verified 12/01/22 09:23) Active Meds: Active Medications Generic Name Dose Route Start Last Admin Trade Name Freq PRN Reason Stop Dose Admin Acetaminophen 1,000 mg 03/09/24 01:46 Acetaminophen 500 Mg Tablet PO 03/09/25 01:45 Q6HR PRN Pain Scale 1 - 3 or fever Albuterol 2.5 mg 03/09/24 01:46 Albuterol Neb 2.5 Mg/3 Ml Vial.Neb INHALATION 03/09/25 01:45 Q3H PRN Cough/Wheeze Amlodipine Besylate 2.5 mg 03/09/24 12:20 Amlodipine 2.5 Mg Tablet PO 03/09/25 12:19 QAM MARI Dextrose 0 gm 03/09/24 01:51 Dextrose 50% In Water 25 Gm/50 Ml Syringe IV-PUSH 03/09/25 01:50 PRN PRN Hypoglycemia Enoxaparin Sodium 40 mg 03/09/24 21:00 Enoxaparin 40 Mg/0.4 Ml Syringe SUBCUT 03/09/25 20:59 BID MARI Ergocalciferol mcg 03/16/24 09:00 Ergocalciferol 1,250 Mcg (50,000 Units) Capsule PO 03/16/25 08:59 QWEEK MARI Glimepiride 4 mg 03/09/24 12:30 Glimepiride 4 Mg Tablet PO 03/09/25 12:29 BID MARI Glucose 0 gm 03/09/24 01:51 Dextrose 40% Gel 15 Gm Tube PO 03/09/25 01:50 PRN PRN Hypoglycemia Guaifenesin 20 ml 03/09/24 01:46 Guaifenesin Syrup 10 Ml Udc PO 03/09/25 01:45 Q6H PRN Cough Piperacillin Sod/Tazobactam Sod 4.5 gm in 100 mls @ 200 mls/hr 03/09/24 04:00 03/09/24 09:09 Zosyn IV Not Given Q6H MARI Magnesium Sulfate 4 gm in 100 mls @ 25 mls/hr 03/09/24 09:15 03/09/24 09:29 Magnesium Sulf 4 Gm-*Swfi* IV 03/09/24 13:14 25 mls/hr ONCE ONE Administration Vancomycin HCl 1.25 gm/ 275 mls @ 183.333 mls/hr 03/09/24 12:30 Dextrose IV 03/09/25 12:29 Q12H [facility] Insulin Aspart 0 units 03/09/24 08:00 03/09/24 08:46 Insulin Aspart 300 Units/3 Ml SUBCUT 03/09/25 07:59 2 units TID.WM.HS [facility] Administration Protocol Lisinopril 20 mg 03/09/24 21:00 Lisinopril 20 Mg Tablet PO 03/09/25 20:59 QPM [facility] Melatonin 5 mg 03/09/24 01:46 Melatonin 5 Mg Tablet PO 03/09/25 01:45 QHS PRN Insomnia Metoprolol Succinate 50 mg 03/10/24 09:00 Metoprolol Succinate 50 Mg Tab.Er.24h PO 03/10/25 08:59 QAM [facility] Non-Formulary Medication 1,000 mg 03/09/24 21:00 Metformin PO 03/09/25 20:59 BID [facility] Non-Formulary Medication 40 mg 03/09/24 21:00 Simvastatin PO 03/09/25 20:59 QPM [facility] Ondansetron HCl 4 mg 03/09/24 01:46 Ondansetron 4 Mg/2 Ml Vial IV-PUSH 03/09/25 01:45 Q6H PRN Nausea And Vomiting Oxycodone HCl 5 mg 03/09/24 01:46 Oxycodone Ir 5 Mg Tablet PO Q6HR PRN Pain Scale 4 - 7 Sodium Chloride 0 ml 03/09/24 06:00 03/09/24 06:39 Sodium Chloride 0.9 % 10 Ml Syringe IV-PUSH 03/09/25 05:59 10 ml QSHIFT [facility] Administration Vancomycin HCl 1 each 03/09/24 12:16 Vancomycin - Pharmacy Dosing 1 Each Miscell INTRAPERIT ONCE PRN ZZ.Pharmacy Consult Protocol A&P - Hospitalist Assessment/Plan (1) Sepsis: (2) Cellulitis: (3) Lymphedema: (4) Acute hypoxic respiratory failure: Plan Acute hypoxic respiratory failure ? Continue oxygen as needed, keep SpO2 greater than 90% ? Albuterol nebs as needed ? Venous Doppler BLE negative at [facility] ? Bibasilar atelectasis on chest x-ray ? Pep therapy Sepsis- likely due to cellulitis, septic workup received at [place] Cellulitis to LLE Lymphedema to LLE likely due to cellulitis - Blood culture x 1 with streptococcus on preliminary result, started on Vanco, pip/tazo [place], received one dose 2gm ceftriaxone on 03/07/24, preliminary culture results on [employer] with E-coli - Repeat blood cultures, CBC, BMP, Mag, ESR, CRP - Continue pip/tazo- pharmacy to dose - Echo was performed at [facility]- please obtain results Chronic conditions HTN- amlodipine, lisinopril, HCTZ T2DM- glimepiride, pioglitazone, fingersticks ACHS, SSIC, hold metformin DVT PPx?heparin Diet order?1800 ADA CODE STATUS?full code The aforementioned paragrapg was documented by my colleague Patient is morbidly obese. Patient weighs about 450 pounds. Extensive erythema, induration and tenderness involving the left leg from the knee down to the ankle. Bulging involving the lateral aspect of the left haines suspecting to have abscess formation. Chestis clear, heart is regular. Abdomen soft. Sepsis and bacteremia present on admission secondary to extensive left leg cellulitis. Rule out abscess formation in the lateral aspect of the left calf Requested CT scan of the leg. Rule out DVT request venous study. Rule out compartment syndrome, requested Ortho evaluation. Continue broad-spectrum antibiotic. Repeat blood culture in 24 to 48 hours. Diabetes, poor control. Resume preadmission home medications. Added sliding scale. DVT prophylaxis Lovenox 40 mg subcu twice a day. Hypertension Resume preadmission home medication Documented By: Gomez Sunshine MD 03/09/24 1222 Signed By: 03/09/24 1224 [facility]01-03-2025 History and physical note Author Yecenia Meléndez [facility] Date/TimeJanuary 2024 8:48[place] [address] Hospitalist H&P Signed Patient: Juan Bean JR MR#: [id number] : 1965 Acct:[id number] Age/Sex: 59 / M Adm Date: 5 Loc: Room: [address] [place] [address] Type: ADM IN Attending Dr: Gomez Sunshine MD Copies to: NON STAFF DO Yecenia Armenta, SHAHZAD Sunshine MD~ HPI DATE OF EXAMINATION: 03/09/24 CHIEF COMPLAINT: left leg red HISTORY OF PRESENT ILLNESS: Mr. Bean is a 59-year-old male with a PMH of HTN, T2DM, HLD, morbidly obese?BMI 55.6 that [facility] for redness to his left leg on March 07. Patient states that he had cellulitis to the left leg last year and he believes it has been red since. But his daughter noticed increased redness last week. States on Tuesday he was driving his children around shopping and hedeveloped fever and chills. Did complain of shortness of breath, denied chest pain, nausea vomiting. He also states that there is increased swelling to his left leg. States he quit smoking 29 years ago, daily whiskey drink?reports at least 2 drinks a day. Denies illicit drug use. [facility] chart review?in the emergency room he met sepsis criteria?white blood cell count of 11.7, lactic acid 2.8, febrile and tachycardic. Received 2 L saline bolus, acetaminophen, Zosyn and vancomycin. Chest x-ray showed no acute cardiopulmonary process. He was also noted to be acutely hypoxic, oxygen was applied. Repeat labs?WBC 13.1, H&H 11.7/35.4, CMP unremarkable. UA with darkyellow, clear urine, negative for infection. VBG with pH 7.451, pCO2 42.3. Repeat lactic acid was 2.4. Lactic acid was drawn supriya.m. down to 1. Magnesium is 1.3. Troponins were negative. CRP 12.72. Nasal swab was negative for COVID, influenza and RSV. Blood culture positive for Streptococcus SP, pending final. CT of the chest showed trace amount of basilardiscoid atelectasis or scarring, infectious infiltrates felt less likely. Venous Doppler of bilateral lower extremities was negative for DVT. Chest x-raywas repeated showed developing moderate subsegmental atelectasis at the right lung base and a mild left basilar atelectasis. EKGs sinus tachycardia with RBBB. Family requested transfer to [facility]. He was treated with vancomycin, Zosyn and 1 dose of ceftriaxone. With IV hydration overnight during his stay. He was transferred here to [facility] as inpatient to the [facility] telemetry floor. Review of Systems Review of Systems Review of systems: A 10 point review of systems was obtained, negative unless noted in the HPI or below. 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 Pain in right leg Phimosis Scoliosis deformity of spine Surgical History History of tonsillectomy Family History (Updated 03/09/24 @ 03:23 by Yecenia Meléndez APRN) Mother Myocardial infarction Keri Gehrig disease Father Myocardial infarction Renal disease Sister Cancer Father Hypertension Father Hypertension Kidney failure Family/Other Family history of other condition Legacy FamHx Problem: SISTER FROM CANCER-NOT SURE WHAT KIND IT WAS Mother Diabetes Type 2 diabetes mellitus Legacy FamHx Problem: DM2 Sister Brother Diabetes Social History Smoking Status: Former smoker Tobacco Type: cigarettes Substance Use Type: Alcohol (daily whiskey) Current Occupational Status: employed 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 Social History Comments: adult son stays with patient Meds Medications and Allergies Allergies No Known Allergies Allergy (Verified 12/01/22 09:23) Home Medications amlodipine 5 mg tablet 5 mg PO QAM 05/17/22 [History Confirmed 03/08/24] ergocalciferol (vitamin D2) 1,250 mcg (50,000 unit) capsule 1,250 unit PO QWEEK 05/17/22 [History Confirmed 03/08/24] glimepiride 4 mg tablet 4 mg PO BID 05/17/22 [History Confirmed 03/08/24] lisinopril 20 mg tablet 20 mg PO QPM 05/17/22 [History Confirmed 03/08/24] lisinopril 20 mg-hydrochlorothiazide 25 mg tablet 1 tab PO QAM 05/17/22 [History Confirmed 03/08/24] meloxicam 15 mg tablet 15 mg PO DAILY 05/17/22 [History Confirmed 03/08/24] metformin 1,000 mg tablet 1,000 mg PO BID 05/17/22 [History Confirmed 03/08/24] metoprolol succinate 50 mg tablet,extended release 24 hr 50 mg PO QAM 05/17/22 [History Confirmed 03/08/24] pioglitazone 45 mg tablet 45 mg PO QAM 05/17/22 [History Confirmed 03/09/24] simvastatin 40 mg tablet 40 mg PO QPM 05/17/22 [History Confirmed 03/08/24] tizanidine 4 mg capsule (Zanaflex) 4 mg PO QPM PRN Pain 05/17/22 [History Confirmed 03/09/24] Exam Physical Exam Vital Signs: Temp Pulse Resp BP Pulse Ox O2 Del Method O2 Flow Rate 99.7 F H 111 H 20 157/84 H 94 L Nasal Cannula 3 03/08/24 22:45 03/08/24 22:45 03/08/24 22:45 03/08/24 22:45 03/08/24 22:45 03/08/24 22:45 03/08/24 22:45 Narrative: CONST- Appears well -developed and well nourished. Morbidly obese?BMI 55.6 HEAD - Normocephalic and atraumatic EENT-Sclera nonicteric, conjunctive are non-erythemic, moist oral mucosa, pharynx clear NECK-Supple, no cervical lymphadenopathy CARDIAC-normal rate, regular rhythm, S1 & S2. PULM-diminished without wheeze or rhonchi, 2L NC, no accessory muscle use or cough noted ABD - Soft. Bowel sounds are normal. No distention. No tenderness, large pannus EXTREM- +2 pitting edema RLE calf, ankle and foot, lymphedema to LLE calf, ankleand foot, tenderness to LLE SKIN- W/D good turgor, redness to Left calf MS- MAEX4 spontaneously with equal with equal strength NEURO- A&Ox3 speech clear and tongue midline, equal facial symmetry, no focal motor deficits PSYCH-Mood, affect, and behavior appropriate Assessment & Plan Assessment/Plan (1) Sepsis: (2) Cellulitis: (3) Lymphedema: (4) Acute hypoxic respiratory failure: Plan Acute hypoxic respiratory failure ? Continue oxygen as needed, keep SpO2 greater than 90% ? Albuterol nebs as needed ? Venous Doppler BLE negative at [facility] ? Bibasilar atelectasis on chest x-ray ? Pep therapy Sepsis- likely due to cellulitis, septic workup received at [place] Cellulitis to LLE Lymphedema to LLE likely due to cellulitis - Blood culture x 1 with streptococcus on preliminary result, started on Vanco, pip/tazo at water mill, received one dose 2gm ceftriaxone on 03/07/24, preliminary culture results on [employer] with E-coli - Repeat blood cultures, CBC, BMP, Mag, ESR, CRP - Continue pip/tazo- pharmacy to dose - Echo was performed at [facility]- please obtain results Chronic conditions HTN- amlodipine, lisinopril, HCTZ T2DM- glimepiride, pioglitazone, fingersticks ACHS, SSIC, hold metformin DVT PPx?heparin Diet order?1800 ADA CODE STATUS?full code IP vs OBS Justification Based on differential dx, clinical care plan, and risk of adverse events, if untreated, in my clinical judgement this patient requires an acute care setting as: INPATIENT because of an expectation ofan over 2 midnight stay. Estimated length of stay (# of days): 3 Quality Measures SEPSIS Tissue perfusion reassessment (select if applicable): Tissue perfusion reassessed after bolus given FOCUSED EXAM Capillary refill: Capillary refill < 3 seconds Peripheral pulses: Pulses present bilaterally Skin color/condition: Warm and pink Urinary output: Increased output Documented By: Yecenia Meléndez APRN 03/09/24 0245 Signed By: <Electronically signed by SHAHZAD Meléndez> 03/09/24 0440 <Electronically signed by Calvin Son DO> 03/09/24 0848 [facility] Work Phone: 1(343) 486-705301-03-2025 History and physical [place] [id number] Hospitalist H&P Signed Patient: Juan Bean JR MR#: [id number] : 1965 Acct:[id number] Age/Sex: 59 / M Adm Date: 5 Loc: Room: [address] [place] [address] Type: ADM IN Attending Dr: Gomez Sunshine MD Copies to: NON STAFF DO Yecenia Armenta, SHAHZAD Sunshine MD~ HPI DATE OF EXAMINATION: 03/09/24 CHIEF COMPLAINT: left leg red HISTORY OF PRESENT ILLNESS: Mr. Bean is a 59-year-old male with a PMH of HTN, T2DM, HLD, morbidly obese?BMI 55.6 that presentedto the [facility] for redness to his left leg on March 07. Patient states that he had cellulitis to the left leg last year and he believes it has been red since. But his daughter noticed increased redness last week. States on Tuesday he was driving his children around shopping and hedeveloped fever and chills. Did complain of shortness of breath, denied chest pain, nausea vomiting. He also states that there is increased swelling to his left leg. States he quit smoking 29 years ago, daily whiskey drink?reports at least 2 drinks a day. Denies illicit drug use. [facility] chart review?in the emergency room he met sepsis criteria?white blood cell count of 11.7, lactic acid 2.8, febrile and tachycardic. Received 2 L saline bolus, acetaminophen, Zosyn and vancomycin. Chest x-ray showed no acute cardiopulmonary process. He was also noted to be acutely hypoxic, oxygen was applied. Repeat labs?WBC 13.1, H&H 11.7/35.4, CMP unremarkable. UA with darkyellow, clear urine, negative for infection. VBG with pH 7.451, pCO2 42.3. Repeat lactic acid was 2.4. Lactic acid was drawn supriya.m. down to 1. Magnesium is 1.3. Troponins were negative. CRP 12.72. Nasal swab was negative for COVID, influenza and RSV. Blood culture positive for Streptococcus SP, pending final. CT of the chest showed trace amount of basilardiscoid atelectasis or scarring, infectious infiltrates felt less likely. Venous Doppler of bilateral lower extremities was negative for DVT. Chest x-raywas repeated showed developing moderate subsegmental atelectasis at the right lung base and a mild left basilar atelectasis. EKGs sinus tachycardia with RBBB. Family requested transfer to [facility]. He was treated with vancomycin, Zosyn and 1 dose of ceftriaxone. With IV hydration overnight during his stay. He was transferred here to [facility] as inpatient to the [facility] telemetry floor. Review of Systems Review of Systems Review of systems: A 10 point review of systems was obtained, negative unless noted in the HPI or below. 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 Pain in right leg Phimosis Scoliosis deformity of spine Surgical History History of tonsillectomy Family History (Updated 03/09/24 @ 03:23 by Yecenia Meléndez APRN) Mother Myocardial infarction Keri Gehrig disease Father Myocardial infarction Renal disease Sister Cancer Father Hypertension Father Hypertension Kidney failure Family/Other Family history of other condition Legacy FamHx Problem: SISTER FROM CANCER-NOT SURE WHAT KIND IT WAS Mother Diabetes Type 2 diabetes mellitus Legacy FamHx Problem: DM2 Sister Brother Diabetes Social History Smoking Status: Former smoker Tobacco Type: cigarettes Substance Use Type: Alcohol (daily whiskey) Current Occupational Status: employed 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 Social History Comments: adult son stays with patient Meds Medications and Allergies Allergies No Known Allergies Allergy (Verified 12/01/22 09:23) Home Medications amlodipine 5 mg tablet 5 mg PO QAM 05/17/22 [History Confirmed 03/08/24] ergocalciferol (vitamin D2) 1,250 mcg (50,000 unit) capsule 1,250 unit PO QWEEK 05/17/22 [History Confirmed 03/08/24] glimepiride 4 mg tablet 4 mg PO BID 05/17/22 [History Confirmed 03/08/24] lisinopril 20 mg tablet 20 mg PO QPM 05/17/22 [History Confirmed 03/08/24] lisinopril 20 mg-hydrochlorothiazide 25 mg tablet 1 tab PO QAM 05/17/22 [History Confirmed 03/08/24] meloxicam 15 mg tablet 15 mg PO DAILY 05/17/22 [History Confirmed 03/08/24] metformin 1,000 mg tablet 1,000 mg PO BID 05/17/22 [History Confirmed 03/08/24] metoprolol succinate 50 mg tablet,extended release 24 hr 50 mg PO QAM 05/17/22 [History Confirmed 03/08/24] pioglitazone 45 mg tablet 45 mg PO QAM 05/17/22 [History Confirmed 03/09/24] simvastatin 40 mg tablet 40 mg PO QPM 05/17/22 [History Confirmed 03/08/24] tizanidine 4 mg capsule (Zanaflex) 4 mg PO QPM PRN Pain 05/17/22 [History Confirmed 03/09/24] Exam Physical Exam Vital Signs: Temp Pulse Resp BP Pulse Ox O2 Del Method O2 Flow Rate 99.7 F H 111 H 20 157/84 H 94 L Nasal Cannula 3 03/08/24 22:45 03/08/24 22:45 03/08/24 22:45 03/08/24 22:45 03/08/24 22:45 03/08/24 22:45 03/08/24 22:45 Narrative: CONST- Appears well -developed and well nourished. Morbidly obese?BMI 55.6 HEAD - Normocephalic and atraumatic EENT-Sclera nonicteric, conjunctive are non-erythemic, moist oral mucosa, pharynx clear NECK-Supple, no cervical lymphadenopathy CARDIAC-normal rate, regular rhythm, S1 & S2. PULM-diminished without wheeze or rhonchi, 2L NC, no accessory muscle use or cough noted ABD - Soft. Bowel sounds are normal. No distention. No tenderness, large pannus EXTREM- +2 pitting edema RLE calf, ankle and foot, lymphedema to LLE calf, ankleand foot, tenderness to LLE SKIN- W/D good turgor, redness to Left calf MS- MAEX4 spontaneously with equal with equal strength NEURO- A&Ox3 speech clear and tongue midline, equal facial symmetry, no focal motor deficits PSYCH-Mood, affect, and behavior appropriate Assessment & Plan Assessment/Plan (1) Sepsis: (2) Cellulitis: (3) Lymphedema: (4) Acute hypoxic respiratory failure: Plan Acute hypoxic respiratory failure ? Continue oxygen as needed, keep SpO2 greater than 90% ? Albuterol nebs as needed ? Venous Doppler BLE negative at [facility] ? Bibasilar atelectasis on chest x-ray ? Pep therapy Sepsis- likely due to cellulitis, septic workup received at [place] Cellulitis to LLE Lymphedema to LLE likely due to cellulitis - Blood culture x 1 with streptococcus on preliminary result, started on Vanco, pip/tazo at [place], received one dose 2gm ceftriaxone on 03/07/24, preliminary culture results on [employer] with E-coli - Repeat blood cultures, CBC, BMP, Mag, ESR, CRP - Continue pip/tazo- pharmacy to dose - Echo was performed at [facility]- please obtain results Chronic conditions HTN- amlodipine, lisinopril, HCTZ T2DM- glimepiride, pioglitazone, fingersticks ACHS, SSIC, hold metformin DVT PPx?heparin Diet order?1800 ADA CODE STATUS?full code IP vs OBS Justification Based on differential dx, clinical care plan, and risk of adverse events, if untreated, in my clinical judgement this patient requires an acute care setting as: INPATIENT because of an expectation ofan over 2 midnight stay. Estimated length of stay (# of days): 3 Quality Measures SEPSIS Tissue perfusion reassessment (select if applicable): Tissue perfusion reassessed after bolus given FOCUSED EXAM Capillary refill: Capillary refill < 3 seconds Peripheral pulses: Pulses present bilaterally Skin color/condition: Warm and pink Urinary output: Increased output Documented By: Yecenia Meléndez APRN 03/09/24 0245 Signed By: 03/09/24 [id number] 03/09/24 0868 [facility]01-03-2025 Evaluation note* Diagnosis Onset Date Resolution Status Admit Date Acute hypoxic respiratory failure acuteJanuary 2024 11:05pmBacteremiaacuteJanuary 2024 11:05pmCellulitis acuteJanuary 2024 11:05pmDiabetesacuteJanuary 2024 11:05pm HypomagnesemiaacuteJanuary 2024 11:05pmHypophosphatemiaacuteJanuary 2024 11:05pmLymphedemaacuteJanuary 2024 11:05pmSepsisacuteJanuary 2024 11:05pm [facility] Work Phone: 1(460) 381-358501-03-2025 Evaluation note* Diagnosis Onset Date Resolution Status Admit Date Cellulitis acuteJanuary 2024 11:05pmLymphedemaacuteJanuary 2024 11:05pmAcute hypoxic respiratory failureinactiveJanuary 2024 11:05pmBacteremiainactive March 08, 2024 11:05pmDiabetesinactiveJanuary 2024 11:05pmHypomagnesemia inactiveJanuary 2024 11:05pmHypophosphatemiainactiveJanuary 2024 11:05pmSepsisinactiveJanuary 2024 11:05pmCellulitisacuteJanuary 2024 8:30amHemosiderin pigmentation of lower extremity due to varicose veinsacute April 02, 2024 8:30amLymphedemaacuteJanuary 2024 8:30amPain of left calfacuteMaruary 2024 8:30amUlcer of left footacuteJanuary 2024 8:30amUlcer of left lower legacuteJanuary 2024 8:30amVenous stasis dermatitis of lower extremityacuteApril 02, 2024 8:30am [facility] Work Phone: 1(578) 992-573510-23-2024 History of Present illness Narrative* MEGGAN Lopez - 12/28/2023 5:00 PM EDT Images from the original note were not included. Subjective Patient ID: Juan Bean is a 58 y.o. male who presents for diabetes. Juan is present today for follow up diabetes. Denies foot ulcers. Admits hypoglycemia and tingling/numbness in extremities. Does not check BS's at home. Currently on Glimepiride, Metformin, and Pioglitazone. has a co-worker who saw him have [...] Suppl ([employer]-Care Glucometer) w/Device kit 1 each Daily Test glucose once a day. ergocalciferol (Vitamin D2) 1.25 MG (70572 UT) capsule TAKE 1 CAPSULE BY MOUTH [...] by mouth in the morning and 1 tablet(1,000 mg) in the evening. Take with meals. [...] complication, without long-term current use of insulin ([facility]) - POCT Glycated hemoglobin, total Advised pt that his HgbA1c has increased to 7.3. He had a recent change in his diet and was eating unhealthier foods at lunch consistently. Discussed healthier options for snacks or quick meal solutions. Limit simple sugars and carbs. Will recheck in three months. His insurance does not cover GLP class medications. Primary hypertension ([facility]) Patient's blood pressure is currently stable. Continue with current medications and I will continueto monitor. Morbid obesity ([facility]) Pt has gained 21 pounds since his last appointment. Unable to continue the Adipex for the patient at this time as the benefits are no longer outweighing the potential risks of the medication. Encouraged him to work on improving his diet. Stay active, can re-evaluate in three months. Follow up in about 3 months (around 03/29/2024) for Diabetes. documented in this encounterExcelsior Springs Medical [id number] Telephone encounter Note* Telephone Encounter - MEGGAN Lopez - 12/27/2023 10:02 AM EDT OARRS reviewed, Rx sent into patient's pharmacy. [facility] [id number] Miscellaneous Notes* Telephone Encounter - MEGGAN Lopez - 12/27/2023 10:02 AM EDT OARRS reviewed, Rx sent into patient's pharmacy. * Telephone Encounter - Chioma Webb - 12/27/2023 9:06 AM EDT phentermine (Adipex-P) 37.5 MG tablet Ddm in [place] documented in this [facility]10-22-2024 Telephone encounter Note* Telephone Encounter - Chioma Webb - 12/27/2023 9:06 AM EDT phentermine (Adipex-P) 37.5 MG tablet Ddm in [place] [facility] [id number] Telephone encounter Note* Telephone Encounter - MEGGAN Lopez - 11/23/2023 8:49 AM EDT Yes, med was already sent [facility] [id number] Miscellaneous Notes* Telephone Encounter - MEGGAN Lopez - 11/23/2023 8:49 AM EDT Yes, med was already sent * Telephone Encounter - Alysha Kent MA - 11/23/2023 8:33 AM EDT This looks as though it was sent in on 11/20 documented in this [facility]09-18-2024 Telephone encounter Note* Telephone Encounter - Alysha Kent MA - 11/23/2023 8:33 AM EDT This looks as though it was sent in on 11/20 [facility] CenterPchqvhwynq34-09-9896 Telephone encounter Note* Telephone Encounter - MEGGAN Lopez - 11/21/2023 9:57 AM EDT OARRS reviewed, Rx sent into patient's pharmacy. [facility] [id number] Miscellaneous Notes* Telephone Encounter - MEGGAN Lopez - 11/21/2023 9:57 AM EDT OARRS reviewed, Rx sent into patient's pharmacy. * Telephone Encounter - Rosario Sutherland - 11/21/2023 9:14 AM EDT phentermine (Adipex-P) 37.[facility] [place] documented in this encounterExcelsior Springs Medical CenterZpgvprgbfg99-03-8630 Telephone encounter Note* Telephone Encounter - Rosario Sutherland - 11/21/2023 9:14 AM EDT phentermine (Adipex-P) 37.5 MG tablet [facility] [place] [facility] CenterJfsqknnser72-18-0813 Telephone encounter Note* Telephone Encounter - MEGGAN Lopez - 10/25/2023 4:03 PM EDT OARRS reviewed, Rx sent into patient's pharmacy. [facility] CenterGnwpotemra52-45-7005 Miscellaneous Notes* Telephone Encounter - MEGGAN Lopez - 10/25/2023 4:03 PM EDT OARRS reviewed, Rx sent into patient's pharmacy. documented in this encounterExcelsior Springs Medical CenterZrieiobkbt44-47-6650 Evaluation note* Encounter Date Diagnosis Assessment Notes Treatment Notes Treatment Clinical Notes Jan, Lumbosacral spondylosis (ICD-10 - M47.817) In the future if the pain persists, we can consider proceeding with lumbar facet MBB followed by a RFA if applicable under fluoroscopic guidance. Jan,Lumbar radiculopathy (ICD-10 - M54.16) 58 year old [...] regards to patients condition. I do not recommendproceeding with injections at this time due to active infection. If his symptoms, persist we can consider other interventional treatment options in the future Jan,hronic pain (ICD-10 - G89.29) Patient is encouraged to call the office if his symptoms worsen. [employer] Other [id number] History of Present illness Narrative* MEGGAN Lopez [...] kit 0 ergocalciferol (Vitamin D2) 1.25 MG (87198 UT) capsule Take 1 capsule (1.25 mg) [...] Medication Follow Up, Hypertension. documented in this encounterExcelsior Springs Medical CenterEtwzfytvme85-84-0003 Evaluation note* Encounter Date Diagnosis Assessment Notes Treatment Notes Treatment Clinical Notes Dec, Lumbar radiculopathy (ICD-10 - M 54.16) 57 year old male presents with complaints [...] detail with patient in regards to patients con dition. I will order an updated MRI of the lumbar spine at this time to determine if patient will benefit from interventional treatment. Dec,hronic pain (ICD-10 - G89.29) Follow up after imaging Dec,Sacroiliitis (ICD-10 - M46.1) In the future if the pain persists, we can consider proceeding with a right sacroiliac joint injection under fluoroscopic guidance Dec,Lumbosacral spondylosis (ICD-10 - M47.817) In the future if the pain persists, we can consider proceeding with a right lumbar facet MBB followed by a RFA if applicable under fluoroscopic guidance. Dec,OtherMedical decision making shows a new problem to me with further workup planned or suggested with thepotential for extensive treatment options that were considered with the most applicable given this patient's situation as noted above. Treatment options considered include a combination of physical th erapy approaches, pharmacologic management, and interventional procedures. Those most applicable tothe patient were discussed at this time. Risk [...] prolonged functional impairment requiring constant patient reassessment andhigh-level medical decision making. The amount and complexity of data reviewed is high given that patient labs, radiology reports, and other test were obtained, reviewed and summarized as applicable from the physician portal and/or outside medical records. Pertinent positive and negative findings were considered in medical decision-making. [employer] Other [id number] Miscellaneous Notes* Telephone Encounter - Víctor Rosales [...] needed. Víctor Rosales MD [facility] NoteHNO ID: [id number] Author: Elena Teran APRN.AIRWAYS CONTROL SPECIALIST Service: ? Author Type: Nurse Java Web Architect Type: Anesthesia Procedure Notes Filed: 08/13/2022 3:45 PM Note Text: ANESTHESIOLOGY PROCEDURE NOTE Airway General Information Procedure Start Time/Medication Administration: 08/13/2022 3:07 PM Procedure End Time: 08/13/2022 3:08 PM Patient location during procedure: OR Timeout Performed Pre-procedure: timeout performed Consent Obtained: Yes Patient identity confirmed: patient sedated or unresponsive and arm band Staffing Anesthesiologist: Brennan Henley MD AIRWAYS CONTROL SPECIALIST: Elena Teran APRN.AIRWAYS CONTROL SPECIALIST Performed by: LOLA Indications and Patient Condition Indications for airway [...] with Mcmahon and stylette. SIGNATURE: Elena Teran APRN.AIRWAYS CONTROL SPECIALIST PATIENT NAME: Juan Bean DATE: August 13, 2022 TIME: 3:38 PM CSN: [id number][facility] NoteThis case was seen in consultation with Drs. Florentin Shirley, Hema Edwards and Rita Funez who agree with the above interpretation.[facility] Comment on above:Order Comment: Specimen Type: TISSUE SPECIMENOrdering Facility: [facility] Address: [address] [place] [address] Performed By: #### S ####[facility] LABCLIA [id number] [address]05-08-2023 Note Patient Outreach (UROLMN) JUAN BEAN ([id number]) 1965 M Date Time Provider Department 07/12/22 VÍCTOR ROSALES During your visit today, we recorded the following information about you: Allergies As of Date: 07/12/2022 (No Known Allergies) Date Reviewed: 07/12/2022 Reviewed by: ADELA Crandall - Fully Assessed Visit Diagnosis:Screening for genitourinary condition [Z13.89] Order(s):URINALYSIS, REFLEX MICROSCOPIC [[id number]] Order #: [id number]. #:[id number] Prescriptions as of 07/15/2022 - amLODIPine (NORVASC) [...] of 45.0-49.9, adult (HC*07/12/2022 Encounter Status:Closed by ERLINDA GONZALEZ on 07/15/22[facility] 07-[facility]2022 NoteHNO ID: [id number] Author: Víctor Rosales MD Service: ? Author Type: Physician Type: Progress Notes Filed: 07/12/2022 9:40 AM Note Text: [facility] NEW PATIENT HISTORY AND [...] for internal providers or letter via the [employer] for external providers. HISTORY CHIEF [...] care with the res (more content not included)...[facility]05-08-2023 History of Present illness Narrative* Víctor Rosales MD - 07/12/2022 9:18 AM EDT [facility] NEW PATIENT HISTORY AND PHYSICAL EXAM PATIENT INFO: Juan Pack Vikas 57 year old REFERRING M.D.: No referring provider defined for this encounter. This consult was requested by Daniel Leonard MD for an opinion regarding penile cancer, and my final recommendations will be communicated to the requesting health care provider by way of the shared medical record for internal providers or letter via the [employer] for external p roviders. HISTORY CHIEF COMPLAINT: [...] Service Time: 9:37 AM documented in this encounterSt[facility] Progress note Author Silvio Yu [facility] June 22, 2022 9:03amNote Date/TimeApril 2022 8:21[facility] [place] [address] Hem/Onc Follow Up Note - OP Signed Patient: Juan Bean JR MR#: [id number] : 1965 Acct:[id number] Age/Sex: 57 / M Type: REG RCR Copies to: MD [facility]~ Date of Service: [...] would mean the pathologic grade is 1 or2 and limited to the foreskin only he [...] he is a T1b. will send to [facility] path review for second opinion. We would like to ascertain he has no residual disease. Dr. Santana will speak withhis colleague Dr. Víctor Rosales at [facility] and determine if additional excision or biopsy is necessary. Follow Up Instructions: Dr. Santana is setting up to see [facility] urology. send path report to [facility] for review. ct c/a/p with contrst cbc, cmp, cea with ct day. f/u in 3 wks. 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 Hadcircumcision 05/31/22, [facility] pathology. HPI: 57-year-old male past medical history includes hypertension, hyperlipidemia, type 2 diabetes, low testosterone. Outpatient medications include glimepiride, hydrochlorothiazide, lisinopril, metformin,metoprolol, pioglitazone. His primary care provider is Carolyn Verdin. On May 31, 2022 Dr. Santana took him to the operating room for circumcision to correct phimosis withinability to retract the foreskin. After careful reading [...] for coordination of care (as documented) and fxxk-fe-gfkv counseling of patient and/or family. [facility] - Medical History Medical History: Medical [...] by Silvio Yu II, DO> 06/22/22 0903 [facility] Work Phone: 1(830) 579-890003-06-2023 NoteChief Complaint Referral HPI Staff Referral per Carolyn Verdin due to circumcision. IPSS score is [...] Contact Information Timmy SANTANA MD, URL [address] [address]- Additional Instructions: pt will f/u after procedure Patient Education Ramona Christiansen , personally scribed for Dr. Santana on 05/10/2022 11:00:16. . Documentation recorded by the scribe, Ramona Yost MA, accurately reflects the services(s) I performed and decisions made by me. Authenticated by (more content not included)...[facility] PrebleComment on above:Result Comment: Electronically Signed By: Timmy SANTANA MD\.br\Date and Time Signed: 05/10/22 11:03 EST\.br\Electronically Co-Signed By: Ramona Yost MA\.br\Date and Time Co-Signed: 05/10/22 11:00 [id number] Hospital Discharge instructions Patient Education 05/10/2022 10:53:42 [...] and shower gels that have fragrance. Take [id number]-sxftnxp and prescription medicines only as told by [...] 07/10/2009 Document Revised: 02/03/2018 Document Reviewed: 01/10/2017 [employer] Patient Education 2020 [employer]. 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 Diagnosis Onset Date Resolution Status Squamous cell carcinoma, penis acute [facility] Work Phone: Evaluation note* Diagnosis Screening for genitourinary condition Screening for other and unspecified genitourinary condition Penile cancer (HCC) Malignant neoplasm of penis, part unspecified [facility] Diagnosis Primary hypertension (CMS/HCC)- Primary Unspecified essential hypertension Morbid obesity (CMS/HCC) Morbid obesity documented in this encounter [facility]* Diagnosis Morbid obesity (CMS/HCC) Morbid obesity documented in this encounter [facility]* Diagnosis Type 2 diabetes mellitus with other specified complication, without long-term current use of insulin (CMS/HCC)- Primary Primary hypertension (CMS/HCC) Unspecified essential hypertension Morbid obesity (CMS/HCC) Morbid obesity documented in this encounter [facility]* Diagnosis Morbid obesity (CMS/HCC) Morbid obesity documented in this encounter [facility]* Diagnosis Morbid obesity (CMS/HCC) Morbid obesity documented in this encounter [facility]* Diagnosis Morbid obesity (CMS/HCC) Morbid obesity documented in this encounter [facility]* Diagnosis Cellulitis of left lower leg- Primary History of sepsis Personal history of other infectious and parasitic disease Morbid obesity ([facility]/HCC) Morbid obesity Primary hypertension ([facility]) Unspecified essential hypertension documented in this encounter [facility]* Diagnosis Cellulitis of left lower leg- Primary documented in this encounter [facility]* Diagnosis Type 2 diabetes mellitus with other specified complication, without long-term current use of insulin ([facility])- Primary Hypertension secondary to endocrine disorders ([facility]/HCC) Cellulitis of left lower leg Morbid obesity ([facility]/HCC) Morbid obesity BMI 50.0-59.9, adult ([facility]) Mild tricuspid regurgitation documented in this encounter [facility]* Diagnosis Cellulitis of both lower extremities- Primary documented in this encounter [facility]* Diagnosis Hypertension due to endocrine disorder ([facility]/HCC)- Primary Cellulitis of left lower leg Pitting edema Edema Lumbar spondylosis Lumbosacral spondylosis without myelopathy Spinal stenosis of lumbar region, unspecified whether neurogenic claudication present documented in this encounter [facility]* Diagnosis Type 2 diabetes mellitus with hyperglycemia, without long-term current use of insulin ([facility])- Primary Morbid obesity ([facility]/HCC) Morbid obesity BMI 50.0-59.9, adult ([facility]) Hypertension due to endocrine disorder ([facility]/HCC) Cellulitis of left lower leg Lymphedema Other noninfectious lymphedema Pitting edema Edema Levoscoliosis of lumbar spine documented in this encounter [facility]* Diagnosis Type 2 diabetes mellitus with other specified complication, with long-term current use of insulin- Primary Hypertension due to endocrine disorder ([facility]/HCC) Lymphedema Other noninfectious lymphedema Lumbar spondylosis Lumbosacral spondylosis without myelopathy Type 2 diabetes mellitus with hyperglycemia, with long-term current use of insulin ([facility]/HCC) Morbid obesity ([facility]/HCC) Morbid obesity BMI 50.0-59.9, adult ([facility]) documented in this encounter [facility]* Diagnosis Hypertension due to endocrine disorder- Primary Type 2 diabetes mellitus with hyperglycemia, with long-term current use of insulin ([facility]) Morbid obesity ([facility]) Morbid obesity BMI 50.0-59.9, adult ([facility]) Type 2 diabetes mellitus with other specified complication, with long-term current use of insulin ([facility]) documented in this encounter [facility]* Diagnosis Type 2 diabetes mellitus with hyperglycemia, with long-term current use of insulin ([facility])- Primary Primary hypertension Unspecified essential hypertension Morbid obesity ([facility]) Morbid obesity BMI 50.0-59.9, adult ([facility]) Lumbar spondylosis Lumbosacral spondylosis without myelopathy documented in this encounter [facility]* Diagnosis Onset Date Resolution Status Admit Date Lumbosacral spondylosis acuteSeptember 2024 2:54pmMid back painacuteSeptember 2024 2:54pmOther chronic painacuteSeptember 2024 2:54pmRight hip painacuteSept2024 2:54pm [facility] Work Phone: [employer] general Narrative - Reported* Type Description Date Medical History DM2 Medical HistoryhyperlipedemiaMedical HistoryHTNMedical Historygum diseaseMedical HistoryhypogonadismMedical Historyvit d difMedical HistoryGoutSurgical History [id number] HistorySEE ABOVE SURGERY [facility] Other History general Narrative - Reported* Type Description Date Medical History DM2 Medical HistoryhyperlipedemiaMedical HistoryHTNMedical Historygum diseaseMedical HistoryhypogonadismMedical Historyvit d difMedical HistoryGoutSurgical History [id number] HistorySEE ABOVE SURGERYHospitalization Historycellulitis LLE103/2022 [facility] Other Hospital Discharge instructions No data available for this section [facility] Discharge instructions Additional Instructions Take the prednisone twice a day for 5 days Take 1 hydrocodone every 6 hours for severe pain May use ice or warm moist heat Gentle stretching Continue your other medication The steroids can elevate your blood sugar so carefully watch her blood sugar in your diet Follow-up with family doctor and/or [facility] Return to the ER for worsening pain unable to walk fever or any other concerns [facility] Work Phone: Progrmfw note No data available for this section [facility] Progress note Author Silvio Yu [facility] July 13, 2022 9:24amNote Date/TimeMay 2022 9:18[facility] [place] [address] Hem/Onc Follow Up Note - OP Signed Patient: Juan Bean JR MR#: [id number] : 1965 Acct:[id number] Age/Sex: 57 / M Type: REG RCR Copies to: MD [facility]~ Date of Service: [...] would mean the pathologic grade is 1 or2 and limited to the foreskin only he would be monitored if we were certain that margins were negative. ct c/a/p in july 2022 with no evidence of metastatic disease. comanaged by Dr. Av Rosales at [facility], plans additional biopsies under anesthesia [...] we thave notes from dr rosales at [facility] and potential surgical report and pathology at f/u. no labs. - History of Present Illness Chief Complaint: Patient is here for a 3 week follow up with CT scans and labs 06/30/22 for review.Also has outside notes for review. No concerns voiced at this time. HPI: 57-year-old male past medical history includes hypertension, hyperlipidemia, type 2 diabetes, low testosterone. Outpatient medications include glimepiride, hydrochlorothiazide, lisinopril, metformin,metoprolol, pioglitazone. His primary care provider is Carolyn Verdin. On May 31, 2022 Dr. Santana took him to the operating room for circumcision to correct phimosis withinability to retract the foreskin. After careful reading [...] 85%. 07/13/[address] av rosales at [facility]. recommended additional biopsy under anesthesia. ct c/a/p from 06/30 noted IMPRESSION: No malignant or metastatic disease. No acute findings. Hepaticsteatosis. Cholelithiasis. The LEFT renal cyst. no new [...] for coordination of care (as documented) and xluf-qa-[id number] counseling of patient and/or family. [facility] - Medical History Medical History: Medical [...] Dictated By: Silvio Yu II, DO DD/ 0917 Signed By: <Electronically signed by Silvio Yu II, DO> 07/13/22 0924 [facility] Work Phone: Reason for referral (narrative)No reason for referral information availableReg[facility] Work Phone: Chief Complaint and Reason for Visit Chief Complaint Phimosis Chief Complaint Phimosis Phimosis squamous cell cancer of penisReason for VisitSquamous cell carcinoma, penis Chief Complaint rt hip pain, nki Chief Complaint Admit Date Unknown March 07, 2024 4: 14pm Sepsis March 08, 2024 11 :05pm Chief Complaint Admit Date Unknown March 07, 2024 4: 14pm Sepsis March 08, 2024 11 :05pm Sepsis March 10, 2024 7: 40am Sepsis March 12, 2024 10 :11am Reason for Visit Admit Date Acute hypoxic respiratory failure 2024 11:05pm Bacteremia March 08, 2024 11 :05pm Cellulitis March 08, 2024 11 :05pm Diabetes March 08, 2024 11 :05pm Hypomagnesemia March 08, 2024 11 :05pm Hypophosphatemia March 08, 2024 11 :05pm Lymphedema March 08, 2024 11 :05pm Sepsis March 08, 2024 11 :05pm Chief Complaint Admit Date Unknown March 07, 2024 4: 14pm Sepsis March 08, 2024 11 :05pm Sepsis March 10, 2024 7: 40am Sepsis March 12, 2024 10 :11am Open Wound, edema, nonhealing wound L le April 02, 2024 8:30am Reason for Visit Admit Date Cellulitis March 08, 2024 11 :05pm Lymphedema March 08, 2024 11 :05pm Acute hypoxic respiratory failure 2024 11:05pm Bacteremia March 08, 2024 11 :05pm Diabetes March 08, 2024 11 :05pm Hypomagnesemia March 08, 2024 11 :05pm Hypophosphatemia March 08, 2024 11 :05pm Sepsis March 08, 2024 11 :05pm Cellulitis April 02, 2024 8 :30am Hemosiderin pigmentation of lower extremity due to varicose veins April 02, 2024 8:30am Lymphedema April 02, 2024 8 :30am Pain of left calf April 02, 2024 8 :30am Ulcer of left foot April 02, 2024 8 :30am Ulcer of left lower leg April 02 8:30am Venous stasis dermatitis of lower extrem ity April 02, 2024 8:30am Chief Complaint Admit Date back/leg pain November 12, 2024 2:54pm Reason for Visit Admit Date Lumbosacral spondylosis November 12, 2 025 2:54pm Mid back pain November 12, 2024 2:54pm Other chronic pain November 12, 2024 2:54pm Right hip pain November 12, 2024 2:54pm Chief Complaint Admit Date back/leg pain November 12, 2024 2:54pm M54.9 M25.551 November 13, 2024 4:21pm Reason for Visit Admit Date Lumbosacral spondylosis November 12, 2 025 2:54pm Mid back pain November 12, 2024 2:54pm Other chronic pain November 12, 2024 2:54pm Right hip pain November 12, 2024 2:54pm Thoracic spondylosis November 12, 2024 2:54pm Chief Complaint Admit Date back/leg pain November 12, 2024 2:54pm M54.9 M25.551 November 13, 2024 4:21pm TRIGGER POINT INJECTION December 06 2:16pm Reason for Visit Admit Date Lumbosacral spondylosis November 12, 2 025 2:54pm Mid back pain November 12, 2024 2:54pm Other chronic pain November 12, 2024 2:54pm Right hip pain November 12, 2024 2:54pm Thoracic spondylosis November 12, 2024 2:54pm Myofascial muscle pain December 06, 2024 2:16pm Other chronic pain December 06, 2024 2: 16pm Thoracic spondylosis December 06, 2024 2 :16pm Chief Complaint Admit Date back/leg pain November 12, 2024 2:54pm M54.9 M25.551 November 13, 2024 4:21pm TRIGGER POINT INJECTION December 06 2:16pm TPI December 13, 2024 3: 12pm Reason for Visit Admit Date Lumbosacral spondylosis November 12, 2 025 2:54pm Mid back pain November 12, 2024 2:54pm Other chronic pain November 12, 2024 2:54pm Right hip pain November 12, 2024 2:54pm Thoracic spondylosis November 12, 2024 2:54pm Myofascial muscle pain December 06, 2024 2:16pm Other chronic pain December 06, 2024 2: 16pm Thoracic spondylosis December 06, 2024 2 :16pm Myofascial muscle pain December 13, 2024 3:12pm Other chronic pain December 13, 2024 3: 12pm Family History Relationship Condition Age at Onset Recorded Date/T raghav Not Specified Myocardial infarction Unknown Amyotrophic lateral sclerosisUnknownfatherMyocardial infarctionUnknownDisorder of kidneyUnknownsisterMalignant neoplasmUnknownUnknown Family Member Name Dates Details Family history of cardiovasc ular disease: Mother(V17.49, Z82.49) Status:ActiveFamily history of diabetes mellitus: Mother, Father, Brother(V18.0, Z83.3) Status:ActiveFamily history of malignant neoplasm: Sister(V16.9, Z80.9) Status:ActiveFamily history of amyotrophic lateral sclerosis: Mother(V17.2, Z82.0) Status:Active Relationship Condition Age at Onset Recorded Date/T raghav Not Specified Myocardial infarction Unknown Amyotrophic lateral sclerosisUnknownfatherMyocardial infarctionUnknownDisorder of kidneyUnknownsisterMalignant neoplasmUnknownfatherHypertensionUnknownfamily memberFamily history of other conditionUnknownNot SpecifiedDeceasedUnknown Diabetes mellitusUnknownType 2 diabetes mellitusUnknownsisterDeceasedUnknown Relationship Condition Age at Onset Recorded Date/T raghav mother Myocardial infarction Unknown Amyotrophic lateral sclerosisUnknownfatherMyocardial infarctionUnknownDisorder of kidneyUnknownsisterMalignant neoplasmUnknownfatherHypertensionUnknownfamily memberFamily history of other conditionUnknownmotherDeceasedUnknownDiabetes mellitusUnknownType 2 diabetes mellitusUnknownsisterDeceasedUnknown Relationship Condition Age at Onset Recorded Date/T raghav mother Myocardial infarction Unknown Amyotrophic lateral sclerosisUnknownfatherMyocardial infarctionUnknownDisorder of kidneyUnknownsisterMalignant neoplasmUnknownfatherHypertensionUnknownRenal failureUnknownfamily memberFamily history of other conditionUnknownmother DeceasedUnknownDiabetes mellitusUnknownType 2 diabetes mellitusUnknownsister DeceasedUnknownbrotherDiabetes mellitusUnknown Advance Directives Advance Directive Response Recorded Date/ Time Advance Directives No May 14, 023 10:32am Advance Directive Response Recorded Date/ Time Advance Directives No May 14 9:32am Summary Purpose Reason for Referral SpecialtyDiagnoses / ProceduresReferred By ContactReferred To Contact Diagnoses Morbid obesity (CMS/HCC) Carolyn Verdin PA [address] [facility] [address] [place] [address] Referral IDStatusReasonStart DateExpiration DateVisits RequestedVisits [id number] Additional Source Comments Patient Care team informatio n (unrecognized section and content) Team Status: Active Member Role Status Dates Carolyn Verdin PA-C Primary Care Provider Active Team Status: Inactive Member Role Status Dates Timmy Santana MD Attending Provider Active SOUTH LawlerCPrimary Care ProviderActiveTeam MemberRelationshipSpecialty Start DateEnd Date Daniel Leonard MD PCP - [facility] Clxxxtdv29/6/13 Team Status: Active Member Role Status Dates Carolyn Verdin PA-C Primary Care Provider Active Silvio Yu II, DOAttending ProviderActiveTimmy Santana , MDReferring ProviderActiveTeam MemberRelationshipSpecialtyStart DateEnd Date Daniel Leonard MD PCP - [facility]01/10/13Team MemberRelationshipSpecialtyStart DateEnd Date Carolyn Verdin [address] [facility] [address] [place] [address] [facility]/27/22 Team Status: Inactive Member Role Status Dates MEGGAN Lawler-C Primary Care Provider Active ANNABEL Andrade-BCEmerbridgeway hospital ProviderActiveTeam MemberRelationship SpecialtyStart DateEnd Date Carolyn Verdin PA [address] [address] [place] [address] PCP - [facility]08/05/22 Manish Rodriguez MD [address] [place] [address] [facility]/13/22Team MemberRelationshipSpecialtyStart Date End Date Carolyn Verdin PA [address] [place] [address] PCP - [facility]08/05/22 Manish Rodriguez MD [address] [place] [address] [facility]07/13/22Team MemberRelationshipSpecialtyStart Date End Date Manish Rodriguez MD [address] [place] [address] [facility]/13/22 Manish Rodriguez MD [address] [place] [address] PCP - [facility]03/07/1811Team MemberRelationshipSpecialty Start DateEnd Date Manish Rodriguez MD [address] [place] [address] PCP - GeneralInternal Medicine07/13/22 Manish Rodriguez MD [address] [place] [address] PCP - [facility]03/07/1811Team MemberRelationshipSpecialty Start DateEnd Date Manish Rodriguez MD [address] [place] [address] PCP - [facility]07/13/22 Manish Rodriguez MD [address] [place] [address] PCP - [facility]03/07/1811Team MemberRelationshipSpecialty Start DateEnd Date Manish Rodriguez MD [address] [place] [address] PCP - [facility]07/13/22 Manish Rodriguez MD [address] [place] [address] PCP - [facility]03/07/1811Team MemberRelationshipSpecialty Start DateEnd Date Manish Rodriguez MD [address] [place] [address] PCP - [facility]07/13/22 Manish Rodriguez MD [address] [place] [address] PCP - [facility]03/07/1811Team MemberRelationshipSpecialty Start DateEnd Date Manish Rodriguez MD [address] [place] [address] PCP - GeneralInternal Medicine07/13/22 Manish Rodriguez MD [address] [facility] [address] [place] [address] PCP - Medical [facility]03/07/1811 Team Status: Active Member Role Status Dates NON STAFF Primary Care Provider Active Team Status: Inactive Member Role Status Dates Mike Phelan MD Attending Provider Active Sta rt: March 07, 2024 End: March 07, 2024 Team Status: Active Member Role Status Dates NON STAFF Primary Care Provider Active Start: March 08, 2024 Bennett Tapia Provider, Attending ProviderActiveStart: March 08, 2024 Team Status: Active Member Role Status Dates Carolyn Verdin NP-C Primary Care Provider Active Team Status: Inactive Member Role Status Dates DO Vini Tapia Provider Active Start: March 08, 2024 End: March 14, 2024Thdennis Chang MDOther ProviderActiveStart: March 08, 2024 End: March 14siva Casanova MDOther ProviderActiveStart: March 08, 2024 End: March 14, 2024Jeaga Ovalle NP-COther ProviderActiveStart: March 08, 2024 End: March 14, 2024Jupatricia Graf DOOther ProviderActiveStart: March 08, 2024 End: March 14, 2024Marek Mullen II, MDOther ProviderActiveStart: March 08, 2024 End: March 14, 2024Kemelissa Rizzo DOOther ProviderActiveStart: March 08, 2024 End: March 14, 2024Obarichi Mcgregor MDAttending ProviderActiveStart: March 08, 2024 End: March 14, 2024MicChristiano Simon ProviderActiveStart: March 08, 2024 End: March 14, 2024Carolyn Verdin NP-CPrimary Care ProviderActiveStart: March 08, 2024 End: March 14, 2024 Team Status: Active Member Role Status Dates NON STAFF Primary Care Provider Active Start: March 10, 2024 Calvin Frings , DOAdmit ProviderActiveStart: March 10, 2024 Gomez Sunshine MDOther ProviderActiveStart: March 10, 2024 Brett Chang , Lukeending ProviderActiveStart: March 10, 2024 Team Status: Active Member Role Status Dates NON STAFF Primary Care Provider Active Start: March 12, 2024 Calvin Hannonvictor manuel , DOAdmit ProviderActiveStart: March 12, 2024 Brett Chang MDOther ProviderActiveStart: March 12, 2024 Nelda Casanova MDOther ProviderActiveStart: March 12, 2024 Makayla [place] , CHEMICAL PROCESSING TECHNICIAN-COther ProviderActiveStart: March 12, 2024 Franco Graf , DOOther ProviderActiveStart: March 12, 2024 Marek Mullen II, MDOther ProviderActiveStart: March 12, 2024 Waldemar Rizzo , DOOther ProviderActiveStart: March 12, 2024 Jorge Luis Mcgregor MDOther ProviderActiveStart: March 12, 2024 Calvin Navarro , MDAttending Provider, Other ProviderActiveStart: March 12, 2024 Team MemberRelationshipSpecialtyStart DateEnd Date Manish Rodriguez MD [address] [facility] [address] [place] [address] [facility] - [facility] Manish Rodriguez MD [address] [facility] [address] [place] [address] PCP - [facility]03/07/1811Team MemberRelationshipSpecialty Start DateEnd Date Manish Rodriguez MD [address] [facility] [address] [place] [address] PCP - GeneralInternal Medicine07/13/22 Manish Rodriguez MD [address] [facility] [address] [place] [address] PCP - [facility]03/07/1811Team MemberRelationshipSpecialty Start DateEnd Date Manish Rodriguez MD [address] [facility] [address] [place] [address] PCP - [facility]07/13/22 Manish Rodriguez MD [address] [facility] [address] [place] [address] PCP - [facility]03/07/1811 Team Status: Active Member Role Status Dates MARIELLA LawlerC Primary Care Provider Active Start: March 10, 2024 Yaquelin Burns ProviderActiveStart: March 10, 2024 Team Status: Inactive Member Role Status Dates Carolyn Verdin NP-C Primary Care Provider Active Start: April 02, 2024 End: April 02, 2024Cheryl Thurston ProviderActiveStart: April 02, 2024 End: April 02, 2024Team MemberRelationshipSpecialtyStart DateEnd Date Manish Rodriguez MD [address] [facility] [address] [place] [address] PCP - [facility]07/13/22 Manish Rodriguez MD [address] [facility] [address] [place] [address] PCP - [facility]03/07/1811Team MemberRelationshipSpecialty Start DateEnd Date Manish Rodriguez MD [address] [facility] [address] [place] [address] PCP - [facility]07/13/22 Manish Rodriguez MD [address] [facility] [address] [place] [address] PCP - [facility]03/07/1811Team MemberRelationshipSpecialty Start DateEnd Date Manish Rodriguez MD [address] [facility] [address] [place] [address] PCP - [facility]07/13/22 Manish Rodriguez MD [address] [facility] [address] [place] [address] [facility] - [facility]03/07/1811Team MemberRelationshipSpecialty Start DateEnd Date Manish Rodriguez MD [address] [facility] [address] [place] [address] PCP - [facility]07/13/22 Manish Rodriguez MD [address] [facility] [address] [place] [address] [facility]03/07/1811Team MemberRelationshipSpecialty Start DateEnd Date Manish Rodriguez MD [address] [facility] [address] [place] [address] PCP - [facility]07/13/22 Manish Rodriguez MD [address] [facility] [address] [place] [address] [facility]03/07/1811Team MemberRelationshipSpecialty Start DateEnd Date Manish Rodriguez MD [address] [facility] [address] [place] [address] PCP - [facility]07/13/22 Manish Rodriguez MD [address] [facility] [address] [place] [address] PCP - [facility]03/07/1811 Team Status: Inactive Member Role Status Dates PATO Lawler Primary Care Provider Active Start: November 12, 2024 End: November 12, 2024Andrew Omer ProviderActiveStart: November 12, 2024 End: November 12, 2024 Team Status: Inactive Member Role Status Dates PATO Lawler Primary Care Provider Active Start: November 13, 2024 End: November 13, 2024Andrew Omer ProviderActiveStart: November 13, 2024 End: November 13, 2024 Team Status: Inactive Member Role Status Dates PATO Lawler Primary Care Provider Active Start: December 06, 2024 End: December 06, 2024Andrew Omer ProviderActiveStart: December 06, 2024 End: December 06, 2024 Team Status: Inactive Member Role Status Dates PATO Lawler Primary Care Provider Active Start: December 13, 2024 End: December 13, 2024Andrew Omer ProviderActiveStart: December 13, 2024 End: December 13, 2024 Goals (unrecognized section and content) Goals may be documented in a n alternate section (unrecognized sect ion and content) No Status Records FoundNo Status Records FoundNo Status Records FoundNo Status Records FoundNo Status Records FoundNo Status Records FoundNo Status Records Found INFORMATION SOURCE (unrecogn ized section and content) DATE CREATED AUTHOR 05/21/2022 [facility] DATE CREATED AUTHOR AUTHOR'S ORGANIZ ATION 05/21/2022 [employer] DATE CREATED AUTHOR AUTHOR'S ORGANIZ ATION 08/19/2022 [facility] DATE CREATED AUTHOR AUTHOR'S ORGANIZ ATION 11/10/2022 [facility] DATE CREATED AUTHOR AUTHOR'S ORGANIZ ATION 05/18/2024 [facility] DATE CREATED AUTHOR AUTHOR'S ORGANIZ ATION 10/30/2024 [facility] DATE CREATED AUTHOR AUTHOR'S ORGANIZ ATION 11/16/2024 [facility] Source Comments (unrecognize d section and content) In the event this informatio n is protected by the Federal Confidentiality of Alcohol and Drug Abuse Patient Records regulations: The Federal rules restrict any use of the information to criminally investigate or prosecute any alcohol or drug abuse patient.[facility] the event this information is protected by the Federal Confidentiality of Alcohol and Drug Abuse Patient Records regulations: The Federal rules restrict any use of the information to criminally investigate or prosecute any alcohol or drug abuse patient.[facility] HospitalIn the event this information is protected by the Federal Confidentiality of Alcohol and Drug Abuse Patient Records regulations: The Federal rules restrict any use of the information to criminally investigate or prosecute any alcohol or drug abuse patient.[facility] Reason for Visit (unrecogniz ed section and content) ReasonCommentsNew PatientReasonCommentsResultsReasonOnset DateCommentsMed Refill 4ReasonCommentsMed RefillReasonOnset DateCommentsMed Sdjexs8310/24/2023 [facility] ClydeReasonCommentsMed RefillLisinopril-HCTZReasonCommentsMed RefillMetoprololHypertensionDenies chest pain, SOB, blurry vision, headaches. At his last o/v his Metoprolol was increased. He has not been checking his BP's at home.ReasonCommentsLeg SwellingLeft leg is still swollen, red, tender to the touch, shooting pain along the calf area off/on but does have back issues so states that could be from that. He will be done with the ATB tonight, He is not sure if he finished it or if he still has one more to take tonight. Does feel his leg may be slightly improved.ReasonCommentsHypertensionDenies chest pain, SOB, blurry vision, headaches. Does not check BP's at home. At last o/v stopped Lisinopril/hydrochlorothiazide and started Lisinopril 40 mg and Furosemide 40 mg. He is also on Metoprolol and Amlodipine.Med RefillLisinopril - has been out of this for 3 -4 days.ReasonCommentsHypertensionDiabetes FOR RECORDS PERTAINING TO PATIENTS WHO ARE [...] BE BASED ON THE PRIMARY CLINICAL RECORDS. [employer] provides no warranty or guarantee of the accuracy or completeness of information in this document.
--- OUTSIDE RECORDS SUMMARY | 2025-01-04 08:59 | XMS_ITS | Clinical Summary ---
Author Organization [employer] s tem Address [id number] [address] [place] [address] Care Team Providers Care Rn Invasive Name Role Phone Shanna Hebert MD Primary Care Provider [phone] Allergies No known active allergies Medications MedicationSigDispense QuantityRefillsLast FilledStart DateEnd DateStatus metFORMIN (GLUCOPHAGE) 500 mg tablet Take 1 tablet by mouth 2 (two) times a day.Active pioglitazone (ACTOS) 45 mg tablet Take 45 mg by mouth daily.Active dicyclomine (BENTYL) 20 mg tablet Take 1 tablet (20 mg total) by mouth 3 (three) times a day as needed (abdominal pain). 20 tablet 03/09/2019Active Immunizations ImmunizationAdministration DatesNext DueCOVID-19, mRNA, LNP-S, PF, 100mcg/0.5mL Dose07/03/2020,06/05/2020 Social History Tobacco UseTypesPacks/DayYears UsedDateSmoking Tobacco: NeverSmokeless Tobacco: NeverChildcareAnswerDate JhuqpivgZafytxcxhKqqfoqs13/12/2019EmploymentAnswerDate FqvwybknXwdtotsswwUltjsry29/12/2019Purpose - LifeAnswerDate RecordedPurpose and direction in soltViifzrz76/11/2021ex and Gender InformationValueDate Recorded Sex Assigned at BirthNot on fileLegal OpyXdrw8610/10/2014 12:10 PM EDTGender IdentityNot on fileSexual OrientationNot on file Last Filed Vital Signs Vital SignReadingTime TakenCommentsBlood Lwwkyqkz274/8803/09/2019 4:50 PM EST Xjuou34165/03/2020 4:50 PM FNTHisfdnutrlu24.8 ??C (98.3 ??F)03/09/2019 4:50 PM ESTRespiratory Pyxq981303/09/2019 4:50 PM ESTOxygen Gftpjdxuhm97%03/09/2019 4:55 PM ESTInhaled Oxygen Concentration--Ywuizx436.8 kg (370 lb)03/09/2019 4:50 PM DHAPdsmxp726.4 cm (6' 1 )03/09/2019 4:50 PM ESTBody Mass Index48.8203/09/2019 4:50 PM EST Plan of Treatment Health MaintenanceDue DateLast DoneCommentsDepression Kslzaxuwq39/12/1977Tobacco Jbmircwhz44/12/1977Adult BMI Ypnndtosg10/12/1983DTaP,Tdap and Td Vaccines (1 - Tdap)01/17/1984Zoster (Shingles) Vaccine (1 of 2)2015COVID-19 Vaccine (3 - season)504/, 06/05/2020Influenza Ifbzsdd2011/05/2024 12/06/2016 [employer] Devices Not on file Insurance Care Teams Team MemberRelationshipSpecialtyStart DateEnd Date [place] [address] [place] [address] PCP - GeneralFamily Medicine03/09/19
--- OUTSIDE RECORDS SUMMARY | 2025-01-04 09:00 | XMS_ITS | Clinical Summary ---
Author Organization [facility] Address [address] [place] [address] Care Team Providers Care Brooch And Bracelet Maker Name Role Phone Manish Rodriguez MD Primary Care Provider [phone] Divya Verdin Unavailable [phone] Allergies No known active allergies Medications MedicationSigDispense QuantityRefillsLast FilledStart DateEnd DateStatus Lancets 30G misc Indications:Type 2 diabetes mellitus with other specified complication (HCC)1 each Daily4Active glucose blood (FREESTYLE TEST STRIPS) test strip Indications:Type 2 diabetes mellitus with other specified complication (HCC)1 each by Other route Daily Use as xczdzdwore26/19/2024ctive Blood Glucose Monitoring Suppl (D-Care Glucometer) w/Device kit Indications:Type 2 diabetes mellitus with other specified complication (HCC)1 each Daily Test glucose once a day.4Active HYDROcodone-acetaminophen (Mantee) 5-325 MG tablet Take 1 tablet by mouth 2 (two) times a day as ozcebz595Active clobetasol (Temovate) 0.05 % ointment Apply 1 application topically in the morning and 1 application before bedtime. 5Active metoprolol succinate XL (Toprol-XL) 100 MG 24 hr tablet Indications:Hypertension secondary to endocrine disordersTake 1 tablet (100 mg) by mouth Daily 100 tablet 5Active meloxicam (Mobic) 15 MG tablet Indications:Lumbar painTAKE 1 TABLET BY MOUTH ONCE DAILY WITH FOOD 100 tablet 5Active pioglitazone (Actos) 45 MG tablet Indications:Type 2 diabetes mellitus with other specified complication (HCC)TAKE 1 TABLET BY MOUTH ONCE DAILY 100 tablet 5Active lisinopril 40 MG tablet Indications:Hypertension due to endocrine disorderTake 1 tablet (40 mg) by mouth Daily 90 tablet 5Active Continuous Glucose Sensor (FreeStyle Jalil 3 Plus Sensor) [facility] [place], [place] Indications:Type 2 diabetes mellitus with other specified complication, with long-term current use of insulin (HCC)1 each every 14 (fourteen) days 6 each tive metFORMIN (Glucophage) 1000 MG tablet Indications:Type 2 diabetes mellitus with other specified complication, with long-term current use of insulin ([facility])Take 0.5 tablets (500 mg) by mouth in the morning and 0.5 tablets (500 mg) in the evening. Take with meals.08/01/2024 Active insulin pen needle (BD Pen Needle Mini Ultrafine) 31G x 5 mm [facility] [place], [place] Indications:Type 2 diabetes mellitus with other specified complication, with long-term current use of insulin ([facility])Inject 1 each under the skin Daily Use as instructed 100 each tive ergocalciferol (Vitamin D2) 1.25 MG (21725 UT) capsule Indications:Vitamin D deficiencyTAKE 1 CAPSULE BY MOUTH ONCE A WEEK 12 capsule tive amLODIPine (Norvasc) 5 MG tablet Indications:Hypertension secondary to endocrine disordersTAKE 1 TABLET BY MOUTH DAILY 100 tablet tive potassium chloride CR (Klor-Con M10) 10 MEQ ER tablet Indications:Pitting edemaTAKE 1 TABLET BY MOUTH DAILY DO NOT CRUSH OR CHEW 30 tablet tive tiZANidine (Zanaflex) 4 MG tablet Indications:Muscle spasm of backTAKE 1 TABLET BY MOUTH AT BEDTIME NEEDED 30 tablet 5Active furosemide (Lasix) 40 MG tablet Indications:Hypertension due to endocrine disorderTAKE 1 TABLET BY MOUTH DAILY 30 tablet 5Active rosuvastatin (Crestor) 10 MG tablet Indications:Pure hypercholesterolemia, unspecifiedTAKE 1 TABLET BY MOUTH IN THE EVENING 100 tablet 5Active insulin glargine-lixisenatide (Soliqua) 100-33 UNT-MCG/ML pen Indications:Type 2 diabetes mellitus with other specified complication, with long-term current use of insulin ([facility])Inject 22 Units under the skin in the morning. Inject before meals. 6 mL 5Active insulin glargine-lixisenatide (Soliqua) 100-33 UNT-MCG/ML pen Indications:Type 2 diabetes mellitus with other specified complication, with long-term current use of insulin (HCC)Inject 20 Units under the skin in the morning. Inject before meals. 6 mL Discontinued(Dose adjustment) insulin glargine-lixisenatide (Soliqua) 100-33 UNT-MCG/ML pen Indications:Type 2 diabetes mellitus with other specified complication, with long-term current use of insulin (HCC)Inject 22 Units under the skin in the morning. Inject before meals.Discontinued(Reorder) Active Problems ProblemNoted DateDiagnosed HvewWfzokbdcmn46/05/2025MI 50.0-59.9, adult 04/04/2024Mild tricuspid ubbdslqpqtnbp14/29/2025Type 2 diabetes mellitus with qymwggsejegsv48/19/2024Type 2 diabetes mellitus with other specified victmejqpdmf96/19/2024Male erectile dysfunction, khefpiyiewy95/19/2024rthralgia of hip, right04/20/2023Spinal stenosis of lumbar gaeosx4202/02/2023Lumbar rvrsdqqhjyw71/29/2023acterial arthritis of SI joint12/03/2022Squamous cell carcinoma, penis10/13/20222290Znclnbsdzpqcah99/09/2037Afcoeyzzvglpkc39/09/2023 Ekzbreqpfvvq08/09/2420Skqjrnhx55/09/2023isorder of intervertebral disc of cervical spine08/12/2022Gout08/12/2022Hypertension due to endocrine disorder 08/12/2022Levoscoliosis of lumbar spine08/12/2022Lumbar pain08/12/2022Lumbar paraspinal muscle spasm08/12/2022Morbid fqirebq6208/12/2022RBBB (right bundle branch block)08/12/2022Right sided piiylzij31/08/2023Testicular dysfunction 08/12/2022Vitamin D xozrqejutn28/08/2023enile jzcuup1907/12/2022 Resolved Problems ProblemNoted DateDiagnosed DateResolved RfecTjtmgezoagfinwa18/09/202301/ Diabetes esyhcycp38ure najcaxqsdocpdrwwlyqc71/08/2023 02/02/2023ure njbmydfkoqojukcvilkm33/08/202311/29/2023Type 2 diabetes mellitus without wqqgdrabftmxq64/08/202306/Hidden penis/11/2022 Encounters DateTypeDepartmentCare YicwVcvglbcelmo99/13/2025Telephone [facility] [address] [place] [address] Manish Rodriguez MD 12/14/2024bstract [facility] [address] [place] [address] Manish Rodriguez MD 12/07/2024bstract [facility] [address] [place] [address] Manish Rodriguez MD 12/06/2024Telephone [facility] [address] [place] [address] Divya Verdin PA 12/03/2024Refill [facility] [address] [place] [address] Manish Rodriguez MD Pure hypercholesterolemia, isjvmijxdjc06/24/2025Refill [facility] [address] [place] [address] Divya Verdin PA Hypertension due to endocrine ainbidtt42/09/2025bstract [facility] [address] [place] [address] Manish Rodriguez MD 11/13/2024bstract [facility] [address] [place] [address] Manish Rodriguez MD 11/01/2024Refill [facility] [address] [place] [address] Manish Rodriguez MD Muscle spasm of back11/01/2024Refill [facility] [address] [facility] [address] [place] [address] Divya Verdin PA Hypertension secondary to endocrine disorders ; Pitting edema10/29/2024 4:30 PM EDTOffice Visit [address] [place] [address] Dviya Verdin PA Type 2 diabetes mellitus with hyperglycemia, with long-term current use of insulin ([facility]) (Primary Dx); Primary hypertension ; Morbid obesity ([facility]); BMI 50.0-59.9, adult ([facility]); Lumbar vnufknjrssm55/25/2025amboo flowsheet [facility] [address] [facility] [address] [place] [phone] Divya Verdin PA 10/29/2024Travelfrom Last 3 Months Immunizations ImmunizationAdministration DatesNext DueInfluenza, injectable, quadrivalent, preservative free12/21/2022Influenza, seasonal, injectable, preservative free 01/11/2024Influenza, seasonal, intradermal, preservative free12/06/2016 Family History Medical HistoryRelationNameCommentsHyperlipidemiaOther 1CancerSisterRelationName StatusCommentsFatherDeceasedMotherDeceasedOther 1Family hxOther 2DeceasedStep momSisterDeceased Social History Tobacco UseTypesPacks/DayYears UsedDateSmoking Tobacco: NeverSmokeless Tobacco: CurrentSnuff Tobacco Cessation:Ready to Q uit: Not Asked; Counseling Given: Not Answered Alcohol UseStandard Drinks/WeekCommentsYes2 (1 standard drink = 0.6 oz pure alcohol)Caffeine intake: coffee, sodaPHQ-2AnswerDate RecordedPatient Health Questionnaire-2 Dqaxn205Sex and Gender InformationValueDate RecordedSex Assigned at BirthNot on fileLegal VmmTlal3305/19/2022 6:52 PM EDTGender Identity Not on fileSexual OrientationNot on file Last Filed Vital Signs Vital SignReadingTime TakenCommentsBlood Adjawilw379/7208 4:54 PM EDT Cjcyl672510/29/2024 4:30 PM NFQJerseepinqi04 ??C (98.6 ??F)04/26/2024 2:08 PM EST Respiratory Uawl235410/29/2024 4:30 PM EDTOxygen Hkkxbdmiqh26%10/29/2024 4:30 PM EDTInhaled Oxygen Concentration--Ztiqug116 kg (411 lb)10/29/2024 4:30 PM EDT Jmgofs098.4 cm (6' 1 )10/29/2024 4:30 PM EDTBody Mass Index54.22010/29/2024 4:30 PM EDT Plan of Treatment DateTypeDepartmentCare Team (Latest Contact Info)Vjfjoxbifaz72/03/2025 4:30 PM ESTOffice Visit [facility] [address] [facility] [address] [place] [phone] Divya Verdin PA [address] [facility] [address] [place], [place] [id number] Health MaintenanceDue DateLast DoneCommentsCT Njuaiqjytbxd1965Colonoscopy 1965FIT1965FOBT01/16/19651895Budlocoyizuzo1965Diabetes: Retinopathy Konwyjxoz77/06/287929/08/2020, 11/13/2018Colorectal Cancer Screening 09/18/2022FIT-DNA/Influenza Vaccine (#1)511/08/2023, 12/21/2022, 12/06/2016Diabetes: Hemoglobin A1C/, 08/01/2024, 04/04/2024, Additional history existsDiabetes: Urine Protein Cntqisgoa34/10/2026 05/14/2024, 02/04/2023, 01/15/2022, Additional history exists Procedures Procedure NamePriorityDate/TimeAssociated DiagnosisCommentsPOCT GLYCATED HEMOGLOBIN, DJSXGNspejln06/25/2025 4:34 PM EDT Type 2 diabetes mellitus with hyperglycemia, with long-term current use of insulin (HCC) MICROALBUMIN / CREATININE URINE OSYDUPtsskba45/10/2025 8:46 AM EDT COLOR FUNDUS PHOTOGRAPHY - OU - BOTH CETKYpirrws47/06/2021 12:00 PM EDT LAB COLOGUARD?? COLON CANCER OMALWYIzcoruc88/15/2020 from Last 3 Months or Most Recently Relevant to Health Maintenance Results * (ABNORMAL) POCT Glycated hemoglobin, total (10/29/2024 4:34 PM EDT)Component ValueRef RangeTest MethodAnalysis TimePerformed AtPathologist Signature Hemoglobin A1C6.9Specimen (Source)Anatomical Location / LateralityCollection Method / VolumeCollection TimeReceived DpstBvwxd27/25/2025 4:34 PM EDT Narrative Authorizing ProviderResult TypeResult StatusDivya Verdin [facility] TEST ENTER/EDIT ORDERABLESFinal Result * (ABNORMAL) Microalbumin / creatinine urine ratio (05/14/2024 8:46 AM EDT) ComponentValueRef RangeTest MethodAnalysis TimePerformed AtPathologist SignatureCREATININE, RANDOM URINE12(L)20 - 320 mg/dLQUESTALBUMIN, URINE<0.2See Note: mg/dLQUESTComment: Reference Range: Reference Range Not established ALBUMIN/CREATININE RATIO, RANDOM URINENOTE<30 mg/g creatQUESTComment: NOTE: The urine albumin value is less than 0.2 mg/dL therefore we are unable to calculate excretion and/or creatinine ratio. The ADA defines abnormalities in albumin excretion as follows: Albuminuria Category ?Result (mg/g creatinine) Normal to Mildly increased <30 Moderately increased ? 30-299 Severely increased > OR = 300 The ADA recommends that at least two of three specimens collected within a 3-6 month period be abnormal before considering a patient to be within a diagnostic category. Specimen (Source)Anatomical Location / LateralityCollection Method / Volume Collection TimeReceived Time05/14/2024 8:46 AM EDT05/14/2024 3:12 PM EDT Narrative [facility] - 05/15/2024 10:50 PM EDT FASTING:YES FASTING: YES Resulting Agency Comment Performing Organization Information ?Site ID: [id number] ?Name: [employer] [facility] ?Address: [address] [place] [address] ?Director: Urban Galloway MD Authorizing ProviderResult TypeResult StatusDivya Verdin PALAB URINE ORDERABLESFinal ResultPerforming OrganizationAddressCity/State/ZIP CodePhone Number [facility] * [employer] - OU - Both Eyes (06/10/2020 12:00 PM EDT)Anatomical RegionLateralityModalityHeadFundus PhotographySpecimen (Source)Anatomical Location / LateralityCollection Method / VolumeCollection TimeReceived Time 06/10/2020 12:00 PM EDT Narrative 06/10/2020 12:00 PM EDT PERFORMED AT [facility] LOCATION:[id number] [facility] Procedure Note CONVERSION, GENERIC - 07/21/2022 PERFORMED AT [facility] LOCATION:[id number] [facility] Authorizing ProviderResult TypeResult StatusShanna Hebert MDOPHTH PHOTOGRAPHY Final Result * Cologuard?? colon cancer screening (09/19/2019)ComponentValueRef RangeTest MethodAnalysis TimePerformed AtPathologist SignatureCOLOGUARD RESULT REPORTABLECancelled - Order ExpiredNot ApplicableN[facility] Comment: This order has because it has exceeded 365 days from the initial order. Please contact the laboratory to reorder this test if clinically indicated. Test Type: Composite algorithmic analysis of stool DNA-biomarkers with hemoglobin immunoassay. ?? Quantitative values of individual biomarkers are not reportable and are not associated with individual biomarker result reference ranges. Precautions and Limitations: Cologuard is intended for colorectal cancer screening of adults of either sex, 45 years or older, who are at average-risk for CRC. Cologuard has been approved for use by the U.S. FDA. Cologuard may produce a false negative or false positive result. A negative Cologuard test result does not guarantee the absence of colorectal cancer (CRC) or advanced adenoma (pre-cancer). Patients with a negative Cologuard test result should be advised to continue participating in a colorectal cancer screening program. The screening interval for Cologuard is currently recommended at an interval of every 3 years by the [place] [employer] and U.S. Multi-Society Task Force. A false positive result occurs when Cologuard produces a positive result, even though a colonoscopy maynot find colorectal cancer or precancerous polyps. The performance of Cologuard has been established in a cross sectional study (i.e., single point in time) of average-risk adults aged 50-84. Cologuard performance in patients ages 45 to 49 years was estimated by sub-group analysis of near-age groups. Cologuard performance data in a 10,000 patient pivotal study using colonoscopy as the reference method can be accessed at the following location: www.[employer]/results. Additional description of the Cologuard test process, warnings and precautions can be found at www.cologuardtest.com. Rx only. Specimen (Source)Anatomical Location / LateralityCollection Method / Volume Collection TimeReceived Time09/19/2019 Narrative Authorizing ProviderResult TypeResult StatusDivya Verdin [facility] ORDERABLESFinal ResultPerforming OrganizationAddressCity/State/ZIP CodePhone Number [facility] from Last 3 Months or Most Recently Relevant to Health Maintenance Insurance Care Teams Team MemberRelationshipSpecialtyStart DateEnd Date Manish Rordiguez MD [address] [place] [address] PCP - GeneralInternal Medicine07/13/22 Divya Verdin PA [address] [place] [id number] PCP - Medical [employer]03/07/1811
--- OUTSIDE RECORDS SUMMARY | 2025-01-04 09:00 | XMS_ITS | Clinical Summary ---
Author Organization [facility] Address [address] [place], [place] [address] Care Team Providers Care Audio/Video Engineer Name Role Phone Divya Verdin PA-C Primary Care Provider [phone] Allergies No known active allergies Medications MedicationSigDispense QuantityRefillsLast FilledStart DateEnd DateStatus amLODIPine (NORVASC) 5 mg tablet 07/07/2022ctive dicyclomine (BENTYL) 20 mg tablet Take 20 mg by mouth.03/09/2019Active Docosahexanoic Acid-Eicosapent 120-180 mg capsule Take by mouth q 24 HR.Active ergocalciferol 50,000 unit capsule (VITAMIN D2, DRISDOL) Ergocalciferol (Vitamin D2) Active 1250 UNIT PO every week May 17, 2022 12:0005/10/2022ctive glimepiride (AMARYL) 4 mg tablet 07/07/2022ctive HYDROcodone-acetaminophen (NORCO) 5-325 mg per tablet Take 1 tablet by mouth.05/31/2022ctive latanoprost (XALATAN) 0.005 % ophthalmic solution Use in eyes q 24 HR.Active lisinopril (ZESTRIL) 20 mg tablet Lisinopril Active 20 MG PO Every evening May 17, 2022 12:0005/17/2022 Active meloxicam (MOBIC) 15 mg tablet 07/07/2022ctive metFORMIN (GLUCOPHAGE) 1,000 mg tablet 07/07/2022ctive metoprolol succinate ER (TOPROL XL) 50 mg 24 hr tablet 07/07/2022ctive pioglitazone (ACTOS) 45 mg tablet 07/07/2022ctive simvastatin (ZOCOR) 40 mg tablet Simvastatin Active 40 MG PO Every evening May 17, 2022 12:0005/17/2022 Active tiZANidine HCl (ZANAFLEX) 4 mg capsule Tizanidine (Zanaflex) 4 mg capsule Active 4 MG PO Every evening May 17, 2022 12:0005/17/2022ctive lisinopril-hydroCHLOROthiazide (ZESTORETIC) 20-25 mg per tablet Take 1 tablet by mouth once daily. In addition to lisinopril 20 mg QPM. 07/27/2022ctive acetaminophen (TYLENOL EXTRA STRENGTH) 500 mg tablet Take 2 tablets by mouth every 6 hours as needed for pain. 60 tablet 08/13/2022ctive docusate sodium (COLACE) 100 mg capsule Take 1 capsule by mouth twice daily. 14 capsule 08/13/2022ctive Active Problems ProblemNoted DateDiagnosed DatePenile lkflcd4507/12/2022Hidden penis07/12/2022 Morbid obesity with BMI of 45.0-49.9, adult07/12/2022 Social History Tobacco UseTypesPacks/DayYears UsedDateSmoking Tobacco: FormerCigarettes Smokeless Tobacco: Current Tobacco Cessation:Ready to Q uit: Not Asked; Counseling Given: Not Answered Area Deprivation IndexAnswerDate RecordedNational Score (1-100), lower number is lower rrqk180607/12/2022State Score (1-10), lower number is lower diku56107/12/2022 Data from: https://www.neighborhoodatlas.medicine.[facility].edu/. Last address used for [address] [facility]07/12/2022Sex and Gender InformationValueDate RecordedSex Assigned at BirthNot on fileLegal HtcOcuw81/06/2013 8:55 AM EST Gender IdentityNot on fileSexual OrientationNot on file Last Filed Vital Signs Vital SignReadingTime TakenCommentsBlood Wozmqauo363/6506 6:25 PM EDT Qoonv7242 6:25 PM APJToinxwmyvmr88.8 ??C (98.2 ??F)08/13/2022 6:25 PM EDTRespiratory Qkoi7411 6:25 PM EDTOxygen Rhvuqfyvdr94%08/13/2022 6:25 PM EDTInhaled Oxygen Concentration--Suxuen797.5 kg (356 lb)07/12/2022 8:52 AM NLKZmduas535.4 cm (6' 1 )07/12/2022 8:52 AM EDTBody Mass Index46.9707/12/2022 8:52 AM EDT Plan of Treatment Health MaintenanceDue DateLast DoneCommentsAnxiety Jqbitmmef83/12/1983Depression Fjqphimhy85/12/1983HIV Ojllszgtg79/12/1983Hepatitis C Blfojvzzy86/12/1983 DTaP,Tdap,Td Vaccine (1 - Tdap)01/17/1984Lipid Ikylklxzq45/12/2000CT Ukucmhgbckmd12/12/2010Cologuard (FIT-DNA)01/16/20106014Qkvqgxjjsrt63/12/2010 Colorectal Cancer Durhfodkj11/12/2010Fecal Occult Blood2010Sigmoidoscopy 2010Pneumococcal Vaccine: 50+ (1 of 1 - PCV)2015Shingrix Vaccine (1 of 2)2015Diabetes Zfjpmhjpq49/04/2020, 02/13/2020, 10/17/2019, Additional history existsCovid-19 Vaccine ( season)2024 02/24/2021, 07/03/2020, 06/05/2020Influenza Vaccine (#1)/04/2016 Prostate Cancer Screening Bkfreowbei71/06/186315/08/2020 Insurance Care Teams Team MemberRelationshipSpecialtyStart DateEnd Date Divya Verdin, MIKEY [address] [place] [id number] [facility]
[2025-01-04 09:13] VITALS: BP 142/74; PULSE 91; TEMP 37.1; O2SAT 93; BMI 38.0
--- NOTE | 2025-01-04 09:41 | XR_ITS ---
The [address] [address] Patient Name: JUAN VILLAVICENCIO MRN: [id number] date: 1965 Sex: M Assigned Patient Location: ER Current Patient Location: ER Accession/Order Number: [id number] Exam Date: 01/04/2025 10:25 Report Date: 01/04/2025 10:48 At the request of: LUCIA BHAGAT MD Procedure: XR tibia fibula LT 2V LEFT TIBIA AND FIBULA - 2 views CLINICAL HISTORY: swelling and erythema at the left lower leg. No injury. COMPARISON: None AP and lateral views of the left tibia and fibula were obtained. There is no acute fracture, dislocation or bony destruction. There is slight narrowing at the medial tibiofemoral joint compartment. There is squaring off the articular margins at the knee. There is an enthesophyte at the insertion of quadriceps tendon. Calcaneal spurs are noted. There is spurring at the dorsum of the tarsals. Subcutaneous edema is seen. XR/XR tibia fibula LT 2V IMPRESSION: NO ACUTE BONY FINDINGS. Impression dictated by: Divya Hoff M.D. 01/04/2025 10:48 AM Dictation Location: [place] [address] Electronically authenticated by: [id number] Y Date: 01/04/2025 10:48
[2025-01-04 10:04] LABS: Hematocrit 44.0 % (42.0-54.0); Hemoglobin 14.1 g/dL (14.0-18.0); Mean Corpuscular HGB Conc 32.0 g/dL (29.9-35.2); Mean Corpuscular Hemoglobin 30.5 pg (25.9-34.0); Mean Corpuscular Volume 95.0 fL (80.0-94.0); Platelet Count 123 10^3/uL (150-450); Red Blood Count 4.63 10^6/uL (4.70-6.10); White Blood Count 8.7 10^3/uL (4.0-11.0)
[2025-01-04 10:18] LABS: Alanine Aminotransferase 23 U/L (16-63); Albumin Globulin Ratio 0.9; Albumin Level 3.3 g/dL (3.4-5.0); Alkaline Phosphatase 49 U/L (46-116); Anion Gap 11.2; Aspartate Amino Transferase 17 U/L (15-37); Blood Urea Nitrogen 16.0 mg/dL (7.0-18.0); Calcium 8.9 mg/dL (8.5-10.1); Carbon Dioxide 32.7 mmol/L (21.0-32.0); Chloride 98 mmol/L (98-107); Estimated GFR (African America >60 (>=60 mL/min/1.73m^2); Estimated GFR (Non-African Ame >60 (>=60 mL/min/1.73m^2); Globulin 3.6 g/dL; Glucose 172 mg/dL (74-106); Potassium 3.9 mmol/L (3.5-5.1); Sodium 138 mmol/L (136-145); Total Protein 6.9 g/dL (6.4-8.2)
[2025-01-04 10:23] LABS: Lactate/Lactic Acid 0.8 mmol/L (0.4-2.0)
[2025-01-04 10:28] LABS: Band Neutrophils Absolute 0.1 10^3/uL (0.0-0.3); Basophils Abs Manual 0.00 10^3/uL (0.00-0.10); Basophils Percent Manual 0.0 % (0.2-2.0); Eosinophils Absolute Manual 0.00 10^3/uL (0.00-0.70); Eosinophils Percent Manual 0.0 % (0.9-7.0); Lymphocytes Absolute Manual 0.43 10^3/uL (1.20-3.80); Lymphocytes Percent Manual 5.0 % (20.5-60.0); Monocytes Absolute Manual 0.17 10^3/uL (0.30-0.80); Monocytes Percent Manual 2.0 % (1.7-12.0); Segmented Neut Absolute Manual 8.00 10^3/uL (1.4-6.5); Segmented Neutrophils % Manual 92.0 (43.0-75.0)
--- NOTE | 2025-01-04 11:14 | ED.EXTPRO1 ---
HPI - Extremity Problem General Chief complaint: Extremity Problem, Nontraumatic Stated complaint: LOWER EXTREMITY PAIN Time Seen by Provider: 01/04/25 09:32 Source: patient Mode of arrival: Wheelchair Limitations: no limitations History of Present Illness HPI Narrative: The patient is a 59 years old male with history of diabetes type 2 and presentation before with cellulitis of the lower extremity, presenting to us with 2 to 3 days history of left leg redness and pain, there is no fever or chills and the patient does not give any history of fall or trauma He has been having pain in his leg not in his feet on the left side Related Data Home Medications ?Medication ?Instructions ?Recorded ?Confirmed amlodipine 5 mg tablet 5 mg PO QDAY 11/15/22 01/04/25 ergocalciferol (vitamin D2) 1,250 1,250 mcg PO .COMPLEX 11/15/22 01/04/25 mcg (50,000 unit) capsule meloxicam 15 mg tablet 15 mg PO .qhs 11/15/22 01/04/25 pioglitazone 45 mg tablet 45 mg PO QDAY 11/15/22 01/04/25 tizanidine 4 mg tablet 4 mg PO .QHS PRN muscle spasticity 03/08/24 01/04/25 furosemide 40 mg tablet 40 mg PO DAILY 01/04/25 01/04/25 insulin glargine 100 subcut 01/04/25 unit-lixisenatide 33 mcg/mL subcutaneous pen ([place] 100/33) lisinopril 40 mg tablet 40 mg PO DAILY 01/04/25 01/04/25 metoprolol succinate 100 mg 100 mg PO DAILY 01/04/25 01/04/25 tablet,extended release 24 hr potassium chloride 10 mEq 10 meq PO DAILY 01/04/25 01/04/25 tablet,extended release(part/cryst) rosuvastatin 10 mg tablet 10 mg PO DAILY 01/04/25 01/04/25 Allergies Allergy/AdvReac Type Severity Reaction Status Date / Time No Known Drug Allergies Allergy Verified 01/04/25 09:12 Review of Systems ROS Status of ROS 10 or more systems reviewed and unremarkable except as noted in history and below [facility] Medical History Hyponatremia ?E87.1 - Hypo-osmolality and hyponatremia (ICD-10) Sepsis ?A41.9 - Sepsis, unspecified organism (ICD-10) 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 - Other postprocedural complications and disorders of genitourinary system (ICD-10) ?N47.5 - Adhesions of prepuce and glans penis (ICD-10) Elevated d-dimer ?R79.89 - Other specified abnormal findings of blood chemistry (ICD-10) Hip pain, right ?M25.551 - Pain in right hip (ICD-10) Lower extremity edema ?R60.0 - Localized edema (ICD-10) Cellulitis of left leg ?L03.116 - Cellulitis of left lower limb (ICD-10) Diabetes ?E11.9 - Type 2 diabetes mellitus without complications (ICD-10) Hypertension ?I10 - Essential (primary) hypertension (ICD-10) High cholesterol ?E78.00 - Pure hypercholesterolemia, unspecified (ICD-10) Surgical History (Updated 01/26/23 @ 03:45 by Yuli Lo) Hx of tonsillectomy ?Z90.89 - Acquired absence of other organs (ICD-10) Family History (Updated 01/26/23 @ 03:47 by Yuli Lo) Sister Family history of cancer Mother Family history of diabetes mellitus Family history of hypertension Family history of myocardial infarction Father Family history of diabetes mellitus Grandfather Family history of stroke Social History Within the past year, how often did you have a drink containing alcohol: 2-3 times a week Within the past year, how many standard drinks containing alcohol did you have on a typical day: 3 or 4 Within the past year, how often did you have six or more drinks on one occasion: less than monthly Total score: 3 Score interpretation: A score of 4 or more indicates drinking is likely to affect patient's safety. 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 Highest level of school completed/degree received: high school graduate Do you want help with school or training: No Are you now , , , , never or living with a partner: In a typical week, how many times do you talk on the telephone with family, friends, or neighbors: 3 or more times per week How often do you get together with friends or relatives: twice per week How often do you attend jew or baptism services: 1-3 times per year Do you belong to any clubs or organizations such as jew groups unions, fraternal or athletic groups, or school groups: no Total score: 1 Score interpretation: A score of less than or equal to 1 indicates the most socially isolated. Little interest or pleasure in doing things: not at all Feeling down, depressed, or hopeless: not at all Feel stressed/tense/nervous/anxious/difficulty sleeping: not at all Due to disability, difficulty making decisions: No Do you think of yourself as: straight/heterosexual Gender Identity: male Exam Narrative Exam Narrative: Nurses notes and vital signs reviewed and patient is not hypoxic. General: Well-appearing and in no apparent distress. Head: Normocephalic, atraumatic. Neck: Supple, non-tender. Eye: Pupils are equal, round and EOMI. No scleral icterus. Cardiovascular: Regular Rate and Rhythm without murmur, gallop or rub. Respiratory: No accessory muscle use or respiratory distress. Lungs are clear to auscultation, no wheezing, rales or rhonchi Musculoskeletal: The patient have a significant bilateral lower extremity edema more on the left than the right and there is a significant redness and hotness and tenderness on examination of the left lower extremity extending from the ankle up to the knee with no involvement of the joint himself, the patient have a good anterior tibial pulse and there is no vascular injury detected there is no tenderness upon palpation of the foot but the patient is tender upon palpation of the leg, there is a abrasion just above the knee on the left side that is healing well with a scab on top of it. Anterior tibial pulse is easily felt and there is no vascular injury detected the patient also have a good capillary refill in the toes he is able to move his toes with no difficulty as well as ankle with no limitation No concern for compartment syndrome GI: Abdomen is soft, non-distended. Normal bowel sounds. No masses appreciated. No tenderness to palpation. No rebound, guarding, or rigidity noted. Neurological: A&O x4. No cranial nerve dysfunction observed. No truncal ataxia. Constitutional Vital Signs, click to edit/add: Last Vital Signs Temp 98.7 F 01/04/25 09:13 Pulse 91 H 01/04/25 09:13 Resp 18 01/04/25 09:13 BP 142/74 H 01/04/25 09:13 Pulse Ox 93 L 01/04/25 09:13 O2 Del Method Room Air 01/04/25 09:13 Course Vital Signs Vital signs: Vital Signs Temperature 98.7 F 01/04/25 09:13 Pulse Rate 91 H 01/04/25 09:13 Respiratory Rate 18 01/04/25 09:13 Blood Pressure 142/74 H 01/04/25 09:13 Pulse Oximetry 93 L 01/04/25 09:13 Oxygen Delivery Method Room Air 01/04/25 09:13 Temperature 98.7 F 01/04/25 09:13 Pulse Rate 91 H 01/04/25 09:13 Respiratory Rate 18 01/04/25 09:13 Blood Pressure 142/74 H 01/04/25 09:13 Pulse Oximetry 93 L 01/04/25 09:13 Oxygen Delivery Method Room Air 01/04/25 09:13 MDM - Extremity (Nontraumatic) MDM Narrative Medical decision making narrative: The patient is a 59 years old male with history of diabetes type 2 as well as morbid obesity presenting to us with left leg cellulitis The patient presentation is concerning for cellulitis of the left lower extremity There is no concern right now for vascular pathology regarding the patient feet and there is no concern for compartment syndrome The patient presentation with cellulitis the fact that he is morbidly obese and having history of diabetes type 2 he would require IV antibiotic with the significant erythema that he have The patient was started on cefazolin The patient x-ray showed no acute pathology Duplex of the lower extremity is negative CBC and chemistry showed no acute pathology except for the fact that the patient have elevated ESR and CRP Patient case discussed with and he agreed on admitting the patient Lab Data Labs: Lab Results 01/04/25 Range/Units 09:45 WBC 8.7 (4.0-11.0) 10^3/uL RBC 4.63 L (4.70-6.10) 10^6/uL Hgb 14.1 (14.0-18.0) g/dL Hct 44.0 (42.0-54.0) % MCV 95.0 H (80.0-94.0) fL MCH 30.5 (25.9-34.0) pg MCHC 32.0 (29.9-35.2) g/dL RDW 14.8 (11.0-15.0) % Plt Count 123 L (150-450) 10^3/uL MPV 10.1 (9.5-13.5) fL Seg Neuts % (Manual) 92.0 H (43.0-75.0) Band Neutrophils % 1.0 (0-5) % Lymphocytes % (Manual) 5.0 L (20.5-60.0) % Monocytes % (Manual) 2.0 (1.7-12.0) % Eosinophils % (Manual) 0.0 L (0.9-7.0) % Basophils % (Manual) 0.0 L (0.2-2.0) % Neutrophils # (Manual) 8.00 H (1.4-6.5) 10^3/uL Band Neutrophils # 0.1 (0.0-0.3) 10^3/uL Lymphocytes # (Manual) 0.43 L (1.20-3.80) 10^3/uL Monocytes # (Manual) 0.17 L (0.30-0.80) 10^3/uL Eosinophils # (Manual) 0.00 (0.00-0.70) 10^3/uL Basophils # (Manual) 0.00 (0.00-0.10) 10^3/uL ESR 29 H (<=20) mm/hr Sodium 138 (136-145) mmol/L Potassium 3.9 (3.5-5.1) mmol/L Chloride 98 (98-107) mmol/L Carbon Dioxide 32.7 H (21.0-32.0) mmol/L Anion Gap 11.2 BUN 16.0 (7.0-18.0) mg/dL Creatinine 0.83 (0.70-1.30) mg/dL Est GFR ( Amer) >60 (>=60 mL/min/1.73m^2) Est GFR (Non-Af Amer) >60 (>=60 mL/min/1.73m^2) BUN/Creatinine Ratio 19.3 Glucose 172 H (74-106) mg/dL Estimat Average Glucose 192 mg/dL Hemoglobin A1c 8.3 H (4.5-6.2) % Lactate 0.8 (0.4-2.0) mmol/L Calcium 8.9 (8.5-10.1) mg/dL Total Bilirubin 1.3 H (0.2-1.0) mg/dL AST 17 (15-37) U/L ALT 23 (16-63) U/L Alkaline Phosphatase 49 (46-116) U/L C-Reactive Protein 5.20 H (<=0.50) mg/dL Total Protein 6.9 (6.4-8.2) g/dL Albumin 3.3 L (3.4-5.0) g/dL Globulin 3.6 g/dL Albumin/Globulin Ratio 0.9 Discharge Plan Discharge Chief Complaint: Extremity Problem, Nontraumatic Clinical Impression: Cellulitis Patient Disposition: Admitted As Inpatient Time of Disposition Decision: 12:13
[2025-01-04] MEDS: CEFAZOLIN SODIUM/DEXTROSE,ISO 2 GM/50 ML PIGGYBACK IV (11:32)
[2025-01-04 12:26] VITALS: BP 146/73; O2SAT 93
--- OUTSIDE RECORDS SUMMARY | 2025-01-04 14:37 | XMS_ITS | CCD ---
Author Organization [facility] Care Team Providers Care Parts Counter Representative Name Role Phone MANISH RODRIGUEZ Primary Care Physician [phone] MD Timmy Santana Attending Provider MIKEY Verdin Primary Care Provider Carolyn Verdin Unavailable Unavailable Unavailable Unavailable Ritesh Ordonez Attending Unavailable Lambert, Mrs. Stkoes Dona Primary Care Unav ailable Dr. Timmy Santana Referring Unavailab Daniel Huerta MD Primary Care Provider DO Silvio Yu II Attending Provider MD Timmy Santana Referring Provider CAROLYN VERDIN Primary Care Physician Carolyn Verdin Primary Care Provider DANIEL LEONARD Primary [...] Care Unavailable MIKEY Verdin Primary Care Provider [phone] Amadeo FISH BONING MACHINE FEEDER- Roya E Emergency Provider Osiel Lewis Unavailable Carolyn Thornton Unavailable Manish Rodriguez MD Primary Care Provider Michael PROCTOR, Manish Coffman Unavailable [phone] Mike Phelan MD Attending Provider NON STAFF Primary Care Provider Unavailabl e Adelaida MADDEN, Calvin Admit Provider Calvin Son DO Attending Provider [phone] Brett Chang MD Other Provider Nelda Casanova MD Other Provider Vasquez CUFFING MACHINE OPERATOR-C, Makayla Cedeno Other Provider Franco Graf DO Other Provider [phone] Marek Mullen MD Other Provider Waldemar Rizzo DO Other Provider Jorge Luis Mcgregor MD Attending Provider [phone] Calvin Navarro MD Other Provider Hemjef CUFFING MACHINE OPERATOR-C, Carolyn Primary Care Provider Vasquez CUFFING MACHINE OPERATOR-C, Makayla Cedeno Other Provider Unavail able Carolyn Bautista APRN Attending Provider CAROLYN VERDIN Attending Unavailable HEMMERCAROLYN Attending Unavailable HEMMER, CAROLYN Andrews Attending Unavailable HEMMERCAROLYN Attending Unavailable HEMMERCAROLYN Attending Unavailable HEMMERCAROLYN Attending Unavailable HEMCAROLYN BURNS Attending Unavailable HEMCAROLYN BURNS Attending Unavailable Hemmer CUFFING MACHINE OPERATOR-C, Carolyn Primary Care Provider Osiel Lewis MD Attending Provider [phone] Osiel Lewis Admitting Unavailable Osiel Lewis Attending [...] [No Known Medication Allergies]Propensity to adverse reactions (disorder)[facility] Repository Medications Current Medications MedicationDrug Class(es)DatesSig (Normalized)Sig (Original)amLODIPine 5 mg oral tablet (20 sources)Dihydropyridine Calcium Channel BlockerStart: 39-53-6481razs 1 tablet by mouth once daily in [...] Suppl (D-Care Glucometer) w/Device kit (20 sources)Start: 87-66-5030Yftoj Glucose Monitoring Suppl (D-Care Glucometer) w/Device kit Indications: Type 2 diabetes mellitus with other specified complication (HCC) 1 each Daily Test glucose once a day. 08/24/2023 ActiveStart: 70-12-2048Kovmx Glucose Monitoring Suppl (D-Care Glucometer) w/Device kit Indications: Type 2 diabetes mellitus with other specified complication 1 each Daily Test glucose once a day. 08/24/2023 ActiveStart: 84-28-3808Zggcx Glucose Monitoring Suppl (D-Care Glucometer) w/Device kit Indications: Type 2 diabetes mellitus with other specified complication ([facility]/HCC) 1 each Daily Test glucose once a day. 08/24/2023 ActiveStart: 90-18-0343Pkxff Glucose Monitoring Suppl (D- Care Glucometer) w/Device kit Indications: Type 2 diabetes mellitus without complication, without long-term current use of insulin ([facility]/HCC) 1 each in the morning. Test glucose once a day.. 1 kit 0 02/02/2023 Activecefdinir 300 mg oral capsule (1 source)Cephalosporin AntibacterialCefdinir 300 MG as directed Orally Active clobetasol propionate 0.0005 mg/mg topical ointment (20 sources)CorticosteroidStart: 37-23-9641lsgltqkjdp (Temovate) 0.05 % ointment Apply 1 application topically in the morning and 1 application before bedtime. 04/02/2024 ActiveStart: 01-93-2540Bfsmyxiset 0.05 % ointment Active 1 APPLIC TOPICAL Daily 60 March 19, 2024 1:00am Complies with drug therapy Continuous Glucose Sensor (FreeStyle Jalil 3 Plus Sensor) misc (7 sources)Start: 93-74-1251Yjkaoywisj Glucose Sensor (FreeStyle Jalil 3 Plus Sensor) misc Indications: Type 2 diabetes mellitus with other specified complication, with long-term current use of insulin ([facility]) 1 each every 14 (fou rteen) days 6 each 3 08/01/2024 ActiveStart: 57-07-2522Ajwsjskyfb Glucose Sensor (FreeStyle Jalil 3 Plus Sensor) misc Indications: Type 2 diabetes mellitus with other specified complication, with long-term current use of insulin 1 each every 14 (fourteen) days 6 each 3 08/01/2024 Activedoxycycline hyclate 100 mg oral capsule (7 sources)Tetracycline-class DrugStart: 04-26-2024 End: 80-48-8100bemafwyhfdz (Vibramycin) 100 MG capsule Indications: Cellulitis of [...] mg oral capsule (20 sources)Provitamin D2 CompoundStart: 12-37-6779hzdd 1 capsule by mouth every weekergocalciferol (Vitamin D2) 1.25 MG (73625 UT) capsule Indications: Vitamin D deficiency TAKE 1 CAPSULE BY MOUTH ONCE A WEEK 12 capsule 3 10/01/2024 Active Start: 27-94-7241kpev 1 capsule by mouth every weekergocalciferol (Vitamin D2) 1.25 MG (10836 UT) capsule Indications: Vitamin D deficiency TAKE 1 CAPSULE BY MOUTH once a week 12 capsule 3 09/06/2023 ActiveStart: 38-90-5543hidm 1 capsule by mouth every weekergocalciferol (Vitamin D2) 1.25 MG (17730 UT) capsule Indications: Vitamin D deficiency Take 1 capsule (1.25 mg) by mouth 1 (one) time per week. 12 capsule 3 08/12/2022 ActiveStart: 58-36-4735Csjewcwpfoxtnh (Vitamin D2) 1,250 mcg (50,000 unit) capsule Active 1250 UNIT PO every week May 17, 2022 12:00am Complies with drug therapyStart: 56-59-3185mtunppqzakpvpc 50,000 intl units Cap Refills(s) 0 Start Date: 05/10/22 Status: OrderedComment on above: Ergocalciferol (Vitamin D2) Active 1250 UNIT PO every week May 17, 2022 12:00amfurosemide 40 mg oral tablet (14 sources)Loop DiureticStart: 50-00-4115bjgs 1 tablet by mouth once daily Furosemide (Lasix) 40 mg tablet Active 40 MG PO Daily November 12, 2024 12:00am Complies with drug therapyStart: 01-30-9667kkhq 1 tablet by mouth once dailyfurosemide (Lasix) 40 MG tablet 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 Take 1 tablet (40 mg) by mouth Daily 30 tablet 5 05/09/2024 Active3 ml insulin glargine 100 unt/ml / lixisenatide 0.033 mg/ml pen injector (13 sources)Insulin AnalogStart: 99-71-9189Uqkohqj Glargine-Lixisenatide (Soliqua 100/33) 100 unit-33 mcg/mL insulin pen Active 20 UNIT SUBCUTEvery morning November 12, 2024 12:00am Complies with drug therapyStart: 08-29-2024 insulin glargine-lixisenatide (Soliqua) 100-33 UNT-MCG/ML pen Indications: Type 2 diabetes mellituswith other specified complication, with long-term current use of insulin ([facility]) Inject 20 Units under the skin in the morning. Inject before meals. 6 mL 5 08/29/2024 ActiveStart: 08-01-2024 End: 67-92-4078eeennv 15 [IU] by subcutaneous injection before mealtimeSoliqua 100-33 UNT-MCG/ML pen Indications: Type 2 diabetes mellitus with other specified complication, with long-term current use of insulin ([facility]) INJECT 15 UNITS SUBCUTANEOUSLY (UNDER THE SKIN) IN THE MORNING. INJECT BEFORE MEALS 15 mL 2 08/02/2024 08/29/2024 Discontinued (Reorder)lisinopril 40 mg oral tablet (20 sources)Angiotensin Converting Enzyme InhibitorStart: 21-79-7681hosj 1 tablet by mouth once dailyLisinopril 40 mg tablet Active 40 MG PO Daily November 12, 2024 12:00am Complies with drug therapyStart: 05-09-2024 End: 86-41-2699jwhz 1 tablet by mouth once dailylisinopril 40 MG tablet 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 Take 1 tablet (40 mg) by mouth Daily 90 tablet 3 08/01/2024 ActiveStart: 04-04-2024 End: 96-68-4307qagn 1 tablet by mouth at bedtimelisinopril 20 MG tablet 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 ([facility]/HCC) Take 1 tablet (20 mg) by mouth at bedtime 04/04/2024 05/09/2024 DiscontinuedStart: 05-17-2022 End: 50-54-5398crlk 1 tablet by mouth once daily in the eveningLisinopril 20 mg tablet Discontinued 20 MG PO Every evening May 17, 2022 12:00am March 14, 2024 3:05pmComment on above:Lisinopril Active 20 MG PO Every evening May 17, 2022 12:00ammeloxicam 15 mg oral tablet (20 sources)Nonsteroidal Anti-inflammatory DrugStart: 02-70-2351urek 1 tablet by mouth once dailyMeloxicam 15 mg tablet Active 15 MG PO Daily May 17, 2022 12:00am Complies with drug therapymetFORMIN hydrochloride 1000 mg oral tablet (20 sources)BiguanideStart: 36-79-7303ipot 0.5 tablet by mouth in the morning metFORMIN (Glucophage) 1000 MG tablet Indications: Type 2 diabetes mellitus with other specified complication, with long-term current use of insulin (HCC) Take 0.5 tablets (500 mg) by mouth in the morning and 0.5 tablets (500 mg) in the evening. Take with meals. 08/01/2024 ActiveStart: 10-14-2015 End: 51-04-6171xzeq 1 tablet by mouth twice dailyMetformin 1,000 mg tablet Active 1000 MG PO Twice daily May 17, 2022 12:00am Complies with drugtherapy take 1 tablet by mouth twice dailymetFORMIN HCl ER (MOD) 1000 MG Oral Tablet Extended Release 24 Hour Take 1 tablet twice daily Quantity: 0 Refills: 0 Ordered: 20-May-2022 DO Zyxqjp16 hr metoprolol succinate 50 mg extended release oral tablet (20 sources)beta-Adrenergic BlockerStart: 12-82-2908Ndgrrwxybq Succinate 50 mg tablet extended release 24 hr Active 100 MG PO Every morning November 12, 2024 3:15pm Complies with drug therapyStart: 27-66-6529euts 1 tablet by mouth once dailymetoprolol succinate XL (Toprol-XL) 100 MG 24 hr tablet 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 Take 1 tablet (100 mg) by mouth Daily 100 tablet 3 04/26/2024 ActiveStart: 27-91-0554ntkb 1 tablet by mouth once dailymetoprolol succinate XL (Toprol-XL) 100 MG 24 hr tablet 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) Take 1 tablet (100 mg) by mouth Daily 04/04/2024 ActiveStart: 79-42-7450sbinwmjeyp succinate ER (TOPROL XL) 50 mg 24 hr tabletStart: 05-17-2022 End: 33-00-4669mpbt 1 tablet by mouth once daily in [...] tablet (13 sources)Sympathomimetic Amine AnorecticStart: 09-12-2023 End: 54-67-7824dxuo 1 tablet by mouth before mealtimephentermine (Adipex-P) 37.5 MG tablet Indications: Morbid obesity (CMS/HCC) Take 1 tablet (37.5 mg)by mouth in the morning. Take before meals. 30 tablet 11/21/2023 ActiveStart: 04-06-2023 End: 26-25-4324cwcp 1 tablet by mouth before mealtimephentermine (Adipex-P) 37.5 MG tablet Indications: Morbid obesity (CMS/HCC) Take 1 tablet (37.5 mg)by mouth in the morning. Take before meals. 30 tablet 0 04/06/2023 05/06/2023 Active pioglitazone 45 mg oral tablet (20 sources)Peroxisome Proliferator Receptor alpha Agonist, Peroxisome Proliferator Receptor gamma Agonist, ThiazolidinedioneStart: 88-91-3149lueq 1 tablet by mouth once daily in the morningPioglitazone 45 mg tablet Active 45 MG PO Every morning May 17, 2022 12:00am Complies with drugtherapy microencapsulated potassium chloride 10 meq extended release oral tablet (14 sources)Start: 04-26-2024 End: 16-87-4321opyt 1 tablet by mouth once dailypotassium chloride CR (Klor-Con M10) 10 MEQ ER tablet Indications: Pitting edema Take 1 tablet (10 mEq) by mouth Daily Do not crush or chew. 30 tablet 5 05/09/2024 Activesimvastatin 40 mg oral tablet (20 sources)HMG-CoA Reductase InhibitorStart: 26-25-6049rkrd 1 tablet by mouth once daily in the eveningSimvastatin 40 mg Tablet Active 40 MG PO Every evening May 17, 2022 12:00am Complies with drug therapyComment on above:Simvastatin Active 40 MG PO Every evening May 17, 2022 12:00amtiZANidine 4 mg oral tablet (20 sources)Central alpha-2 Adrenergic AgonistStart: 38-70-0592wbmn 1 tablet by mouth at bedtime as neededtiZANidine (Zanaflex) 4 MG tablet Indications: Muscle spasm of back TAKE 1 TABLET BY MOUTH AT BEDTIME NEEDED 30 tablet 3 05/28/2024 ActiveStart: 27-96-0168tcpe 1 tablet by mouth at bedtime as neededtiZANidine (Zanaflex) 4 MG tablet Indications: Muscle spasm of back TAKE 1 TABLET BY MOUTH AT BEDTIME NEEDED 30 tablet 3 01/26/2024 ActiveStart: 40-51-3687mygz 1 capsule by mouth once daily in the evening as needed for painTizanidine (Zanaflex) 4 mg capsule Active 4 MG PO Every evening as needed for Pain May 172:00am Complies with drug therapyComment on above:Tizanidine (Zanaflex) 4 mg capsule Active 4 MG PO Every evening May 17, 2022 12:00am Completed/Discontinued Medications MedicationDrug Class(es)DatesSig (Normalized)Sig (Original)acetaminophen 500 mg oral tablet (1 source)Start: 83-26-9055uppz 2 tablets by mouth every six hours as needed acetaminophen (TYLENOL EXTRA STRENGTH) 500 mg tablet Take 2 tablets by mouth every 6 hours as needed for pain. 60 tablet 0 08/13/2022 ActiveComment on above: Take 2 tablets by mouth every 6 hours as needed for pain.acetaminophen 325 mg / HYDROcodone bitartrate 5 mg oral tablet (20 sources)Opioid AgonistStart: 03-14-2024 End: 34-63-8521oefg 1 tablet by mouth twice daily as needed for painHydrocodone- Acetaminophen 5-325 mg tablet Discontinued 1 TAB PO Twice daily as needed for pain 10 5March 14, 2024 November 12, 2024 3:13pmStart: 12-01-2022 End: 37-27-5181sfgs 1 tablet by mouth every six hours as needed for pain Hydrocodone-Acetaminophen 5-325 mg tablet Discontinued 1 TAB PO Q6H as needed for pain 10 December 01, 2022 March 09, 2024 3:42amStart: 05-31-2022 End: 36-15-5087qynh 1 tablet by mouth every four to six hours as needed for pain Hydrocodone-Acetaminophen 5-325 mg tablet Discontinued 1 TAB PO EVERY 4-6 HOURS as needed for pain 10 May 31, 2022 June 22, 2022 8:06amStart: 06-29-9188uets 1 tablet by mouth onceHYDROcodone-acetaminophen (NORCO) 5-325 mg per tablet Take 1 tablet by mouth. 0 05/31/2022 ActiveComment on above:Take 1 tablet by mouth.amoxicillin 875 mg / clavulanate 125 mg oral tablet (12 sources)Penicillin-class AntibacterialStart: 03-23-2024 End: 42-45-6080emjs 1 tablet by mouth onceamoxicillin-clavulanate (Augmentin) 875-125 MG tablet Indications: Cellulitis of left lower leg Take 1 tablet (875 mg) by mouth every 12 (twelve) hours for 7 days 14 tablet 03/23/2024 04/04/2024 Discontinued (Therapy completed)Start: 03-14-2024 End: 93-85-0399untf 1 tablet by mouth every twelve hoursamoxicillin-clavulanate (Augmentin) 875-125 MG tablet Take 1 tablet by mouth every 12 (twelve) hours 03/14/2024 03/23/2024 Discontinued (Reorder)Start: 03-14-2024 End: 57-63-7993smpb 1 tablet by mouth every twelve hoursAmoxicillin-Pot Clavulanate 875-125 mg tablet Discontinued 1 TAB PO Every 12 hours 24 12March 14, 2024 1:00am November 12, 2024 3:13pmcephalexin 500 mg oral capsule (6 sources)Cephalosporin AntibacterialStart: 04-10-2024 End: 63-58-7200dsvs 1 capsule by mouth in the morning, [...] 04/10/2024 04/26/2024 Discontinued (Therapy completed)Start: 08-13-2022 End: 73-84-8712xqyp 1 capsule by mouth twice dailycephALEXin (KEFLEX) 500 mg capsule Take 1 capsule by mouth twice daily for 7 days. 14 capsule 0 08/13/2022 08/20/2022 ActiveStart: 78-41-3862rntf 1 capsule by mouth twice dailycephALEXin (KEFLEX) [...] mouth every week Vitamin D3 1.25 MG (52978 UT) Oral Capsule one tablet weekly Quantity: 30 Refills: 5 Ordered: 20-May-2022 DO ActiveComment on above:Take by mouth. dicyclomine hydrochloride 20 mg oral tablet (3 sources)AnticholinergicStart: 83-32-3679pdhjmomgtif (BENTYL) 20 mg tablet Take 20 mg by mouth. 0 03/09/2019 ActiveComment on above:Take 20 mg by mouth. docosahexaenoic acid 120 mg / eicosapentaenoic acid 180 mg oral capsule (20 sources) End: 12-66-8642lqcz 1 capsule by mouth once dailyomega-3 (Fish Oil) 1000 MG capsule Take 1 capsule by mouth 1 (one) time each day at the same time. 0 04/04/2024 Discontinued (Other)Docosahexanoic Acid-Eicosapent 120-180 mg capsule Take by mouth q 24 HR. 0 ActiveComment on above:Take by mouth q 24 HR.docusate sodium 100 mg oral capsule (1 source)Start: 55-38-2766wait 1 capsule by mouth twice dailydocusate sodium (COLACE) 100 mg capsule Take 1 capsule by mouth twice daily. 14 capsule 0 08/13/2022 ActiveComment on above:Take 1 capsule by mouth twice daily. glimepiride 4 mg oral tablet (20 sources)SulfonylureaStart: 05-10-2022 End: 56-27-7676hrah 1 tablet by mouth twice dailyGlimepiride 4 mg tablet Discontinued 4 MG PO Twice daily May 17, 2022 12:00am November 12, 2024 3:13pmtake 1 tablet by mouth once dailyGlimepiride 4 MG Oral Tablet TAKE 1 TABLET DAILY DIRECTED. Quantity: 0 Refills: 0 Ordered: 20-May-2022 DO Active hydroCHLOROthiazide 25 mg / lisinopril 20 mg oral tablet (20 sources)Thiazide Diuretic, Angiotensin Converting Enzyme InhibitorStart: 71-33-3468ncpfqghjjq-hydroCHLOROthiazide (ZESTORETIC) 20-25 mg per tabletStart: 05-17-2022 End: 81-82-2137xrmp 1 tablet by mouth once daily in the morningLisinopril- Hydrochlorothiazide 20-25 mg tablet Discontinued 1 TAB PO Every morning May 172:00am November 12, 2024 3:13pmStart: 05-10-2022 hydrochlorothiazide-lisinopril 25 mg-20 mg Tab Refill(s) 0 Start Date: 05/10/22 Status: OrderedComment on above:Take 1 tablet by mouth once daily. In addition to lisinopril 20 mg QPM.Ketorolac (4 sources)Nonsteroidal Anti-inflammatory Drug, Cyclooxygenase InhibitorStart: 99-57-9424Robkqcb per 15 mg Apr, 30 mgStart: 75-92-4241Ydxabsf per 15 mg Oct, 30 mglatanoprost 0.05 [...] oral tablet (11 sources)Quinolone AntimicrobialStart: 04-02-2024 End: 26-23-7144vgxs 1 tablet by mouth once dailyLevofloxacin 500 mg tablet Discontinued 500 MG PO Daily April 02, 2024 1:00am November 12, 2024 3:13pmmethylPREDNISolone (2 sources)CorticosteroidStart: 21-34-9097Ekvw-Medrol 40 mg Oct, 20 mg metOLazone 5 mg oral tablet (5 sources)Thiazide-like DiureticStart: 04-26-2024 End: 07-34-5690qtui 1 tablet by mouth once dailymetOLazone (Zaroxolyn) [...] mg oral tablet (9 sources)Start: 12-01-2022 End: 25-91-2060sskm 1 tablet by mouth twice dailyPrednisone 20 mg tablet Discontinued 20 MG PO Twice daily 10 December 01, 2022 12:00am 2024 3:43amSemaglutide,0.25 or 0.5MG/DOS, (Ozempic, 0.25 or 0.5 MG/DOSE,) 2 MG/3ML solution pen-injector (2 sources)Start: 08-01-2024 End: 84-71-5763syaqrq 0.25 mg by subcutaneous injection every week, [...] 08/01/2024 DiscontinuedSyringe (Disposable) 1 ML (2 sources)Start: 79-41-1790Zzsjbpj (Disposable) 1 ML 22 guage 1 intramuscularly Q 2 weeks for 90 days Nov, Not-TakingSyringe (Disposable) 3 ML (2 sources)Start: 35-57-1408Tsphmio (Disposable) 3 ML as directed IM q 2 weeks for 90 days Jun, Not-TakingSyringe 23G X 1 3 ML misc (19 sources)Start: 02-09-2023 End: 92-55-7391Nflorev 23G X 1 3 ML misc Indications: Testicular dysfunction Inject 1 each into the shoulder, thigh, or buttocks every 14 (fourteen) days 6 each 1 02/09/2023 04/26/2024 Discontinued (Other)Start: 50-77-4253Fbhcxgu 23G X 1 3 ML [facility] Indications: Testicular dysfunction Inject 1 each into the shoulder, thigh, or buttocks every 14 (fourteen) days 6 each 1 02/09/2023 Active testosterone cypionate 100 mg/ml injectable solution (20 sources)AndrogenStart: 02-09-2023 End: 15-40-3887cxklbjffjvuc cypionate (Depo-Testosterone) 100 MG/ML injection Indications: Testicular [...] 2 weeks for90 days Not-TakingTriamcinolone (2 sources)CorticosteroidStart: 79-94-1525PMTCDGH - 10 mg Apr, 20 mg Problems Active Problems Problem ClassificationProblemDateDocumented DateEpisodic/ChronicBacterial infection; unspecified site (9 sources)Bacteremia; Translations: [Bacteremia]Onset: 580475-05-6229 EpisodicCancer of other male genital organs (20 sources)Malignant tumor of penis; Translations: [Malignant neoplasm of penis, unspecified]Onset: 55-83-0256KkxlpfrKdlnpzu ulcer of skin (13 sources)Ulcer of skin of lower extremity; Translations: [Non-pressure chronic ulcer of unspecified part of left lower leg with unspecified severity] Onset: 677078-84-3124GdnofehWtojuonpty disorders (20 sources)EKG: right bundle branch block; Translations: [Right bundle branch block]Onset: 911609-05-8438QrpvsgrXkdwoksn mellitus with complications (20 sources)Disorder due to type 2 diabetes mellitus; Translations: [Type 2 diabetes mellitus with unspecified complications]Onset: 943743-32-3104 ChronicDiabetes mellitus without complication (20 sources)Diabetes mellitus; Translations: [Diabetes mellitus without mention of complication, type II or unspecified type, not stated as uncontrolled]Onset: 08-12-2022 Resolved: 927397-16-5912SvlcbyuXrpjpyg on above:type 2Disorders of lipid metabolism (20 sources)Hyperlipidemia; Translations: [Other and unspecified hyperlipidemia] Onset: 08-12-2022 Resolved: 190438-25-3183EccrwxuWzazqtlsy hypertension (20 sources)Hypertensive disorder; Translations: [Unspecified essential hypertension]Onset: 135751-59-1537EurvuygUkrj and other crystal arthropathies (20 sources)Gout; Translations: [Gout, unspecified]Onset: ChronicHeart valve disorders (18 sources)Rheumatic tricuspid insufficiency; Translations: [Diseases of tricuspid valve]Onset: 217857-73-1865BtbipkySrqnbuweejbt with complications and secondary hypertension (20 sources)Hypertension secondary to endocrine disorder; Translations: [Hypertension secondary to endocrine disorders]Onset: ChronicNutritional deficiencies (20 sources)Vitamin D deficiency; Translations: [Vitamin D deficiency, unspecified]Onset: 487824-20-8029LhflzkeXhynv acquired deformities (20 sources)Scoliosis of lumbar spine; Translations: [Other forms of scoliosis, lumbar region]Onset: 061980-37-5918NjpgjttXnnpb aftercare (2 sources)Long-term current use of insulin; Translations: [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 (current) use of insulin]EpisodicOther connective tissue disease (1 source)Pain in calf; Translations: [Pain in left lower leg]15-17-5594Ublueimi Other connective tissue disease (1 source)Pain in left lower leg; Translations: [Pain in limb]17-81-1473Aixasinf Other connective tissue disease (4 sources)Pain of left calf; Translations: [Pain in left lower leg]04-02-2024 EpisodicOther connective tissue disease (5 sources)Myofascial pain; Translations: [Myalgia, other site]12-06-2024 EpisodicOther diseases of veins and lymphatics (20 sources)Lymphedema; Translations: [Lymphedema, not elsewhere classified] Onset: 778613-87-3766IpjixnrSmqyi diseases of veins and lymphatics (4 sources)Lymphedema, not elsewhere classified; Translations: [Other lymphedema]Onset: 836325-75-2112PshdnbhBctkt diseases of veins and lymphatics (5 sources)Edema of left lower limb; Translations: [Chronic venous hypertension (idiopathic) without complications of left lower extremity]63-67-9782Qmcogvm Other diseases of veins and lymphatics (5 sources)Disorder of vein of lower extremity; Translations: [Venous insufficiency (chronic) (peripheral)]22-10-2416PiuighejSatmn diseases of veins and lymphatics (1 source)Venous insufficiency (chronic) (peripheral); Translations: [Varicose veins of lower extremities with inflammation]11-81-7303OpjcufjfRrqqi endocrine disorders (1 source)Testicular hypofunction; Translations: [Testicular hypofunction]Onset: 58-17-1376HhmhsugBcbtl endocrine disorders (1 source)Male yiyrldpampel51-97-0493QomrrtmVyxai endocrine disorders (2 sources)Hypogonadotropic hypogonadism; 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 Other endocrine disorders (20 sources)Disorder of endocrine testis; Translations: [Testicular dysfunction, unspecified]Onset: 656794-06-9720DjcxyeoVlvan infections; including parasitic (2 sources)History of sepsis; Translations: [Personal history of other infectious and parasitic diseases]08-92-2678QidnwrkkCevqv male genital disorders (20 sources)Male erectile dysfunction, unspecified; Translations: [Impotence of organic origin]Onset: 097276-97-3995UqptgxtSiusc male genital disorders (20 sources)Phimosis; Translations: [Phimosis]Onset: 89-25-6699BrczvbtkFtmwq nervous system disorders (17 sources)Chronic pain; Translations: [Other chronic pain]81-74-8365Pvvbyyq Other nervous system disorders (2 sources)Other chronic painChronicOther non-traumatic joint disorders (12 sources)Hip pain; Translations: [Pain in right hip]13-71-5419ZaavwdfuCdcin non-traumatic joint disorders (20 sources)Pain in right hip joint; Translations: [Pain in right hip]Onset: 684460-32-0360RnzgkozhBjkrv non-traumatic joint disorders (1 source)Pain in right hip; Translations: [Pain in right hip]Onset: 11-13-2024 EpisodicOther nutritional; endocrine; and metabolic disorders (2 sources)Koyyhth63-03-7918ZvylyuyLtnee nutritional; endocrine; and metabolic disorders (20 sources)Body mass index 40+ - severely obese; Translations: [Morbid obesity] Onset: 38-53-1743SrafiyiXfsmn nutritional; endocrine; and metabolic disorders (1 source)Morbid (severe) obesity due to excess calories; Translations: [Morbid obesity with BMI of 45.0-49.9, adult ([facility])]Onset: 32-40-4925HyvenndJhbwl nutritional; endocrine; and metabolic disorders (1 source)Body mass index (BMI) 45.0-49.9, adult; Translations: [Morbid obesity with BMI of 45.0-49.9, adult ([facility])]Onset: 02-43-8582HvdhufxVrrqb nutritional; endocrine; and metabolic disorders (20 sources)Morbid obesity; Translations: [Morbid (severe) obesity due to excess calories]Onset: 398785-07-6136AmhnlwbXugmk nutritional; endocrine; and metabolic disorders (6 sources)Hypophosphatemia; Translations: [Other disorders of phosphorus metabolism]49-33-4886JrcahybYdvki nutritional; endocrine; and metabolic disorders (6 sources)Hypomagnesemia; Translations: [Hypomagnesemia]57-80-1792DrktaynQylta nutritional; endocrine; and metabolic disorders (3 sources)Hypomagnesemia; Translations: [Disorders of magnesium metabolism] Onset: 141221-54-9653OvkcbxpJcnng nutritional; endocrine; and metabolic disorders (3 sources)Other disorders of phosphorus metabolism; Translations: [Disorders of phosphorus metabolism]Onset: 975468-57-7184IdphiauLrvnu screening for suspected conditions (not mental disorders or infectious disease) (1 source)Patient encounter status; Translations: [Encounter for screening for other disorder]EpisodicOther skin disorders (5 sources)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; Translations: [Other specified disorders of pigmentation]03-19-2024 EpisodicOther skin disorders (1 source)Other specified disorders of pigmentation; Translations: [Dyschromia, unspecified]80-53-7986QucuskkaTxpikele codes; unclassified (6 sources)Pitting edema; Translations: [Edema, unspecified]02-36-7609Zngwsbgo Respiratory failure; insufficiency; arrest (adult) (9 sources)Acute respiratory failure; Translations: [Acute respiratory failure with hypoxia]Onset: 388218-07-5829DgbeqycvMfhxvxfcc and history of mental health and substance abuse codes (1 source)Ex-smoker; Translations: [Personal history of tobacco use]Episodic Comment on above:quit 29+ years ago;Septicemia (except in labor) (9 sources)Sepsis; Translations: [Sepsis, unspecified organism]Onset: 03-08-2024 05-28-6876XexomczhKddq and subcutaneous tissue infections (20 sources)Cellulitis; Translations: [Cellulitis, unspecified]Onset: 03-08-2024 93-67-8092WljfnyyeJbjpzquoefe; intervertebral disc disorders; other back problems (20 sources)Solitary sacroiliitis; Translations: [Sacroiliitis, not elsewhere classified]Onset: 70-58-2772DmmeposLfmnrngpape; intervertebral disc disorders; other back problems (20 sources)Radiculopathy, lumbar region; Translations: [Low back pain]Onset: 96-99-6334Tzoxsjmo Past or Other Problems Problem ClassificationProblemDateDocumented DateEpisodic/ChronicBiliary tract disease (20 sources)Biliary calculus; Translations: [Calculus of gallbladder without cholecystitis without obstruction]Onset: 197810-81-0840Oqzqbray Genitourinary congenital anomalies (20 sources)Congenital buried penis; 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]Onset: 07-12-2022 Resolved: 57-91-1857AafwyhlOwesbvlge arthritis and osteomyelitis (except that caused by tuberculosis or sexually transmitted disease) (20 sources)Bacterial arthritis of sacroiliac joint; Translations: [Arthritis due to other bacteria, vertebrae]Onset: 011687-21-9355FgiuiuooVevknavirncj conditions of male genital organs (20 sources)Balanoposthitis; 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]Onset: 05-10-2022 Resolved: 50-83-9326Onrxyer Results Test NameValueInterpretationReference RangeFacilityX-ray reportOrdered By: Adryan Del Castillo on 24-38-1997Gtgse [facility] Main [place] [id number] XRay Report Signed Patient: Juan Bean JR MR#: [id number] : 1965 Acct:[id number] Age/Sex: 59 / M ADM Date: 5 [...] XR/XR hip RT min 2V(w/wo pelvis)* IMPRESSION: Kwmb-qn-rzwltffz degenerative changes without evidence acute osseousabnormality. Impression dictated by: Adryan Del Castillo M.D. 11/13/2024 11:24 PM Dictation Location: [place] [address] Transcribed By: [facility] 11/13/242323 Dictated By: Adryan Del Castillo MD 11/13/242323 Signed By: 11/13/24 [facility] Work Phone: [facility] Main [address] [address] XRay Report Signed Patient: Juan Bean JR MR#: [id number] : 1965 Acct:[id number] Age/Sex: 59 / M ADM Date: 5 [...] the thoracic spine. Focal congenital wedging of D82iuagmtdpl body likely congenital basis. Otherwise the The thoracic vertebral heights preserved. Mild dextrocurvature at the level of the thoracal lumbar junction. Gallstones identified. XR/XR thoracic spine 3V* IMPRESSION: Moderate degenerative changes. No evidence acute fracture malalignment. Incidental note of cholelithiasis. Impression dictated by: Adryan Del Castillo M.D. 11/13/2024 10:28 PM Dictation Location: [facility] Transcribed By: [facility] 11/13/242227 Dictated By: Adryan Del Castillo MD 11/13/242224 Signed By: 11/13/242227 [facility] Work Phone: XR hip RT min 2V(w/wo pelvis)*on 07-97-4838FF hip RT min 2V(w/wo pelvis)*[facility] Main [place] [address] [place] [address] XRay Report Signed Patient: Juan Bean JR MR#: [id number] : 1965 Acct:[id number] Age/Sex: 59 / M ADM Date: 11/13/24 Loc: XD Room: Type: [facility] Attending Dr: Osiel Lewis MD Copies to: [...] XR/XR hip RT min 2V(w/wo pelvis)* IMPRESSION: Wqrq-pb-kixqrqvb degenerative changes without evidence acute osseous abnormality. Impression dictated by: Adryan Del Castillo M.D. 11/13/2024 11:24 PM Dictation Location: RADIO-PC-29 Transcribed By: GISSELL 11/13/242323 Dictated By: Adryan Del Castillo MD 11/13/242323 Signed By: 11/13/242323[facility] Physician GroupXR thoracic spine 3V*on 81-81-5128MV thoracic spine 3V*[facility] Main [place] [address] [place] [address] XRay Report Signed Patient: Juan Bean JR MR#: [id number] : 1965 Acct:[id number] Age/Sex: 59 / M ADM Date: 11/13/24 Loc: XD Room: Type: [facility] Attending Dr: Osiel Lewis MD Copies to: [...] Adryan Del Castillo MD 11/13/242224 Signed By: 11/13/242227[facility] Physician GroupLaboratory - Hematology and Cell countson 15-91-0144WvR8x (Bld) [Mass fraction]6.9 %[facility] Informationon 20-06-4112Mxwqicuozkjjhp and review of laboratory resultsAbHighsmith-Rainey Specialty HospitalLaboratory - Hematology and Cell countson 14-07-9269IbL6e (Bld) [Mass fraction]8.3 %[facility] Informationon 40-38-3529Tygjxsmwzvxtno and review of laboratory resultsAbUP Health System HealthcareALBUMIN, RANDOM URINE W/CREATININEon 51-52-6292FZTCFAA, URINE<0.2 NormalSee Note:Quest DiagnosticsComment on above:Result Comment: Reference Range: Reference Range Not establishedPerformed By: #### 6517, 5140 #### [facility] [address], [address] [place] [address] Rate Inserter: Urban Galloway MD #### 6399, 830[address] #### [facility] [address] [place] [address] Rate Inserter: Ryann FrankliniALBUMIN/CREATININE RATIO, RANDOM URINENOTE Normal<30Quest DiagnosticsComment [...] By: #### 6517, 7600 #### [facility] [address], [address] [place] [address] Rate Inserter: Urban Galloway MD #### 6399, 66936 #### [facility] [address] [place] [address] Rate Inserter: Ryann Pack FlatiCreatinine (U) [Mass/Vol]12 mg/eQYof25-241 Quest DiagnosticsComment on above:Performed By: #### 6517, 7600 #### [facility] [address], [address] [place] [address] Rate Inserter: Urban Galloway MD #### 6399, 87269 #### [facility] [address] [place] [address] Rate Inserter: Ryann FrankliniCBC (INCLUDES DIFF/PLT)on 86-71-7874Fmuzqtkrh (Bld) [#/Vol]0.017 10*3/uLNormal0-200Quest DiagnosticsComment on above:Performed By: #### 6517, 7600 #### [facility] [address], [address] [place] [address] Rate Inserter: Urban Galloway MD #### 6399, 35741 #### [facility] [address] [place] [address] Rate Inserter: Ryann FrankliniBasophils/100 WBC (Bld)0.2 %NormalQuest DiagnosticsComment on above:Performed By: #### 6517, 0 #### [facility] [address], [address] [place] [address] Rate Inserter: Urban Galloway MD #### 6399, 80424 #### [facility] [address] [place] [address] Rate Inserter: Ryann FrankliniCOMMENT(S)NormalQuest DiagnosticsComment on above:Result Comment: Review of peripheral smear confirms automated results.Performed By: #### 6517, 0 #### [facility] [address], [address] [place] [address] Rate Inserter: Urban Galloway MD #### 6399, 96407 #### [facility] [address] [place] [address] Rate Inserter: Ryann Pack FlatiEosinophils (Bld) [#/Vol]0.118 10*3/uLNormal 15-500Quest DiagnosticsComment on above:Performed By: #### 6517, 7460 #### [facility] [address], [address] [place] [address] Rate Inserter: Urban Galloway MD #### 6399, 11790 #### [facility] [address] [place] [address] Rate Inserter: Ryann FrankliniEosinophils/100 WBC (Bld)1.4 %NormalQuest DiagnosticsComment on above:Performed By: #### 6517, 7600 #### [facility] [address], [address] [place] [address] Rate Inserter: Urban Galloway MD #### 6399, 57523 #### [facility] [address] [place] [address] Rate Inserter: Ryann FrankliniErythrocyte distribution width (RBC) [Ratio] 14.7 %Yyngqg59.0-15.0Quest DiagnosticsComment on above:Performed By: #### 6517, 2220 #### [facility] [address], [address] [place] [address] Rate Inserter: Urban Galloway MD #### 6399, 29064 #### [facility] [address] [place] [address] Rate Inserter: Ryann Pack FlatiHematocrit (Bld) [Volume fraction]40.6 %Normal 38.5-50.0Quest DiagnosticsComment on above:Performed By: #### 6517, 0 #### [facility] [address], [address] [place] [address] Rate Inserter: Urban Galloway MD #### 6399, 96953 #### [facility] [address] [place] [address] Rate Inserter: Ryann Pack FlatiHemoglobin (Bld) [Mass/Vol]12.9 g/dLLow 13.2-17.1Quest DiagnosticsComment on above:Performed By: #### 6517, 7600 #### [facility] [address], [address] [place] [address] Rate Inserter: Urban Galloway MD #### 6399, 60819 #### [facility] [address] [place] [address] Rate Inserter: Ryann FrankliniLymphocytes (Bld) [#/Vol]1.109 10*3/uLNormal 850-3900Quest DiagnosticsComment on above:Performed By: #### 6517, 7600 #### [facility] [place] [address], [address] [place] [address] Rate Inserter: Urban Galloway MD #### 6399, 15211 #### [facility] [address] [place] [address] Rate Inserter: Ryann FrankliniLymphocytes/100 WBC (Bld)13.2 %NormalQuest DiagnosticsComment on above:Performed By: #### 6517, 7600 #### [facility] [address], [address] [place] [address] Rate Inserter: Urban Galloway MD #### 6399, 68337 #### [facility] [address] [place] [address] Rate Inserter: Ryann BaltazarCH (RBC) [Entitic mass]29.7 afSggcpp54.0-33.0 Quest DiagnosticsComment on above:Performed By: #### 6517, 7600 #### [facility] [address], [address] [place] [address] Rate Inserter: Urban Galloway MD #### 6399, 64913 #### [facility] [address] [place], [place] [address] Rate Inserter: Ryann FrankliniMCHC (RBC) [Mass/Vol]31.8 g/dLLow32.0-36.0 [facility] DiagnosticsComment on above:Result Comment: For adults, a slight decrease in the calculated MCHC value (in the range of 30 to 32 g/dL) is most likely not clinically significant; however, it should be interpreted with caution in correlation with other red cell parameters and the patient's clinical condition.Performed By: #### 6517, 0 #### [facility] [address], [address] [place] [address] Rate Inserter: Urban Galloway MD #### 6399, 69223 #### [facility] [address] [place] [address] Rate Inserter: Ryann Pack FlatiMCV (RBC) [Entitic vol]93.5 lBBezhko06.0-100.0 Quest DiagnosticsComment on above:Performed By: #### 6517, 0 #### [facility] [address], [address] [place] [address] Rate Inserter: Urban Galloway MD #### 6399, 71245 #### [facility] [address] Rate Inserter: Ryann Pack FlatiMonocytes (Bld) [#/Vol]0.596 10*3/uLNormal 200-950Quest DiagnosticsComment on above:Performed By: #### 6517, 0 #### [facility] [address], [address] [place] [address] Rate Inserter: Urban Galloway MD #### 6399, 07312 #### [facility] Rate Inserter: Ryann Pack FlatiMonocytes/100 WBC (Bld)7.1 %NormalQuest DiagnosticsComment on above:Performed By: #### 6517, 7600 #### [facility] [address] , [address] [place] [address] Rate Inserter: Urban Galloway MD #### 6399, 57572 #### [facility] [address] [place] [address] Rate Inserter: Ryann Pack FlatiNeutrophils (Bld) [#/Vol]6.56 10*3/uLNormal 1500-7800Quest DiagnosticsComment on above:Performed By: #### 6517, 7600 #### [facility] [address], [address] [place], [place] [address] Rate Inserter: Urban Galloway MD #### 6399, 99498 #### [facility] [address] [place] [address] Rate Inserter: Ryann Pack FlatiNeutrophils/100 WBC (Bld)78.1 %NormalQuest DiagnosticsComment on above:Performed By: #### 6517, 7600 #### [facility] [address], [address] [place] [address] Rate Inserter: Urban Galloway MD #### 6399, 220[address] #### [place] [address] Rate Inserter: Ryann Pack FlatiPlatelet mean volume (Bld) [Entitic vol]10.0 fLNormal7.5-12.5Quest DiagnosticsComment on above:Performed By: #### 6517, 7600 #### [facility] [place] [address], [address] [place] [address] Rate Inserter: Urban Galloway MD #### 6399, 15396 #### [place] [address] Rate Inserter: Ryann Pack FlatiPlatelets (Bld) [#/Vol]186 10*3/uLNormal 140-400Quest DiagnosticsComment on above:Performed By: #### 6517, 7600 #### [facility] [address], [address] [place] [address] Rate Inserter: Urban Galloway MD #### 6399, 15724 #### [facility] [address] [place] [address] Rate Inserter: Ryann Pack FlatiRBC (Bld) [#/Vol]4.34 10*6/uLNormal4.20-5.80 Quest DiagnosticsComment on above:Performed By: #### 6517, 0 #### [facility] [address], [address] [place] [address] Rate Inserter: Urban Galloway MD #### 6399, 12120 #### [facility] [address] [place] [address] Rate Inserter: Ryann FrankliniWBC (Bld) [#/Vol]8.4 10*3/uLNormal3.8-10.8 Quest DiagnosticsComment on above:Performed By: #### 6517, 7600 #### [facility] [address], [address] [place] [address] Rate Inserter: Urban Galloway MD #### 6399, 08870 #### [facility] [address] Rate Inserter: Ryann FrankliniCOMPREHENSIVE METABOLIC PANELon 05-15-2024 Albumin [Mass/Vol]4.4 g/dLNormal3.6-5.1Quest DiagnosticsComment on above: Performed By: #### 6517, 0 #### [facility] [address], [address] [place] [address] Rate Inserter: Urban Galloway MD #### 6399, 91387 #### [facility] [address] Rate Inserter: Ryann FrankliniAlbumin/Globulin [Mass ratio]1.4 {ratio}Normal 1.0-2.5Quest DiagnosticsComment on above:Performed By: #### 6517, 7600 #### [facility] [address], [address] [place] [address] Rate Inserter: Urban Galloway MD #### 6399, 99818 #### [facility] [address] [place], [place] [address] Rate Inserter: Ryann Pack FlatiALP [Catalytic activity/Vol]54 U/RIppntb24-123 [facility] DiagnosticsComment on above:Performed By: #### 6517, 7080 #### [facility] [address], [address] [place] [address] Rate Inserter: Urban Galloway MD #### 6399, 75318 #### [facility] [address] [place] [address] Rate Inserter: Ryann Pack FlatiALT [Catalytic activity/Vol]22 U/LNormal9-46 [facility] DiagnosticsComment on above:Performed By: #### 6517, 7600 #### [facility] [address], [address] [place] [address] Rate Inserter: Urban Galloway MD #### 6399, 32551 #### [facility] [address] [place] [address] Rate Inserter: yRann FrankliniAST [Catalytic activity/Vol]21 U/YHkyeqi33-00 [facility] DiagnosticsComment on above:Performed By: #### 6517, 0 #### [facility] [address], [address] [place] [address] Rate Inserter: Urban Galloway MD #### 6399, 55940 #### [facility] [address] [place] [address] Rate Inserter: Ryann FrankliniBilirubin [Mass/Vol]0.6 mg/dLNormal0.2-1.2 [facility] DiagnosticsComment on above:Performed By: #### 6517, 0 #### [facility] of [address], [address] [place] [address] Rate Inserter: Urban Galloway MD #### 6399, 34871 #### [facility] [address] [place] [address] Rate Inserter: Ryann FrankliniBUN/CREATININE RATIOSEE NOTE:Normal6-22Quest DiagnosticsComment on above:Result Comment: Not Reported: BUN and Creatinine are within reference range.Performed By: #### 6517, 6020 #### [facility] [address], [address] [place] [address] Rate Inserter: Urban Galloway MD #### 6399, 70550 #### [facility] [address] [place] [address] Rate Inserter: Ryann Pack FlatiCalcium [Mass/Vol]9.7 mg/dLNormal8.6-10.3Quest DiagnosticsComment on above:Performed By: #### 6517, 7600 #### [facility] [address], [address] [place] [address] Rate Inserter: Urban Galloway MD #### 6399, 50630 #### [facility] [address] [place] [address] Rate Inserter: Ryann Pack FlatiChloride [Moles/Vol]98 mmol/HShfpbg02-525Xpbtp DiagnosticsComment on above:Performed By: #### 6517, 5290 #### [facility] [address] , [address] [place] [address] Rate Inserter: Urban Galloway MD #### 6399, 36846 #### [facility] [address] Rate Inserter: Ryann FrankliniCO2 [Moles/Vol]31 mmol/LMbfywj47-14Drkyo DiagnosticsComment on above:Performed By: #### 6517, 7600 #### [facility] [address], [address] [place] [address] Rate Inserter: Urban Galloway MD #### 6399, 46684 #### [facility] [address] [place] [address] Rate Inserter: Ryann Pack FlatiCreatinine [Mass/Vol]0.79 mg/dLNormal0.70-1.30 [facility] DiagnosticsComment on above:Performed By: #### 6517, 7600 #### [facility] [address] , [address] [place] [address] Rate Inserter: Urban Galloway MD #### 6399, 37443 #### [facility] [address] [place] [address] Rate Inserter: Ryann FrankliniGFR/1.73 sq M.predicted among non-blacks MDRD (S/P/Bld) [Vol rate/Area]102 mL/min/{1.73_m2}Normal> OR = 60[facility] Comment on above:Performed By: #### 6517, 4620 #### [facility] [address], [address] [place] [address] Rate Inserter: Urban Galloway MD #### 6399, 77360 #### [facility] [address] [place] [address] Rate Inserter: Ryann FrankliniGlobulin (S) [Mass/Vol]3.1 g/dLNormal1.9-3.7 Quest DiagnosticsComment on above:Performed By: #### 6517, 7750 #### [facility] [address], [address] [place] [address] Rate Inserter: Urban Galloway MD #### 6399, 64270 #### [facility] [address] [place] [address] Rate Inserter: Ryann Pack FlatiGlucose [Mass/Vol]193 mg/gLHznu63-33Iaefe DiagnosticsComment on above:Result Comment: Fasting reference interval For someone without known diabetes, a glucose value >125 mg/dL indicates that they may have diabetes and this should be confirmed with a follow-up test.Performed By: #### 6517, 9930 #### [facility] [address], [address] [place], [place] [address] Rate Inserter: Urban Galloway MD #### 6399, 74147 #### [facility] [address] [place] [address] Rate Inserter: Ryann Pack FlatiPotassium [Moles/Vol]4.5 mmol/LNormal3.5-5.3 [facility] DiagnosticsComment on above:Performed By: #### 6517, 0620 #### [facility] [address], [address] [place] [address] Rate Inserter: Urban Galloway MD #### 6399, 96566 #### [facility] [address] [place] [address] Rate Inserter: Ryann FrankliniProtein [Mass/Vol]7.5 g/dLNormal6.1-8.1Quest DiagnosticsComment on above:Performed By: #### 6517, 7600 #### [facility] [address], [address] [place] [address] Rate Inserter: Urban Galloway MD #### 6399, 53015 #### [place] [address] Rate Inserter: Ryann FrankliniSodium [Moles/Vol]139 mmol/BLofmdc584-108Yakwx DiagnosticsComment on above:Performed By: #### 6517, 0 #### [facility] [address], [address] [place] [address] Rate Inserter: Urban Galloway MD #### 6399, 46290 #### [place] [address] Rate Inserter: Ryann FrankliniUrea nitrogen [Mass/Vol]25 mg/dLNormal7-25 [facility] DiagnosticsComment on above:Performed By: #### 6517, 0 #### [facility] [address], [address] [place] [address] Rate Inserter: Urban Galloway MD #### 6399, 01467 #### [facility] [address] [place] [address] Rate Inserter: Ryann FrankliniLIPIJorge HYLTON, [facility] 10-11-9373Bowhjhobwmp [Mass/Vol]136 mg/dLNormal<200Quest DiagnosticsComment on above:Order Comment: FASTING:YES FASTING: YESPerformed By: #### 6517, 0 #### [facility] [address], [address] [place], [place] [address] Rate Inserter: Urban Galloway MD #### 6399, 67060 #### [facility] [address] [place] [address] Rate Inserter: Ryann Pack FlatiCholesterol in HDL [Mass/Vol]63 mg/dLNormal> [place] = 40Quest DiagnosticsComment on above:Order Comment: FASTING:YES FASTING: YESPerformed By: #### 6517, 0 #### [facility] [address], [address] [place] [address] Rate Inserter: Urban Galloway MD #### 6399, 02894 #### [facility] [address] Rate Inserter: Ryann Pack FlatiCholesterol in LDL [Mass/Vol]50 mg/dLNormal [...] LDL-C. Sedrick HOLBROOK et al. MITZY. 2013;310(19): 7707-4855 (http://education.[employer]oferon/faq/VKA775)Performed By: #### 6517, 0 #### [facility] [address], [address] [place], [place] [address] Rate Inserter: Urban Galloway MD #### 6399, 63640 #### [facility] [address] [place] [address] Rate Inserter: Ryann Ashley.total/Cholesterol in HDL [Mass ratio]2.2 {ratio}Normal<5.0Quest DiagnosticsComment on above:Order Comment: FASTING:YES FASTING: YESPerformed By: #### 6517, 0 #### [facility] [address], [address] [place] [address] Rate Inserter: Urban Galloway MD #### 6399, 21986 #### [facility] [facility] [address] [place] [id number] Rate Inserter: Ryann Anne HDL EWYZDORTDSJ61 mg/dL (calc)Normal<130 [facility] DiagnosticsComment on above:Order Comment: FASTING:YES FASTING: YESResult Comment: For patients with diabetes plus 1 major ASCVD risk factor, treating to a non-HDL-C goal of <100 mg/dL (LDL-C of <70 mg/dL) is considered a therapeutic option.Performed By: #### 6517, 7600 #### [facility] [address], [address] [place] [address] Rate Inserter: Urban Galloway MD #### 6399, 93310 #### [facility] [address] [place] [phone] Rate Inserter: Ryann FrankliniTriglyceride [Mass/Vol]152 mg/dLHigh<150Quest DiagnosticsComment on above:Order Comment: FASTING:YES FASTING: YESPerformed By: #### 6517, 7600 #### [facility] [address], [address] [place] [address] Rate Inserter: Urban Galloway MD #### 6399, [address]138 #### [facility] [address] [place] [phone] Rate Inserter: Ryann Goodrichatory - Hematology and Cell countson 02-74-0477GrO9p (Bld) [Mass fraction]7.8 %NOMS HealthcareNo Panel Informationon 51-17-3213Miyszuweevcvuk and review of laboratory resultsAbnormalNOAL Healthcare NOMS HealthcareUS venous duplex LE LTon 44-17-0730CD venous duplex LE [facility] [place] [address] Ultrasound Report Signed Patient: Juan Bean JR MR#: [id number] : 1965 Acct:[id number] Age/Sex: 59 / M ADM Date: 04/02/24 Loc: [facility]: [facility] Attending Dr: Carolyn Bautista APRN [...] Alex Sandoval MD04/02/2024 3:30 PM Dictation Location: [place] [address] Tech: Joanne Lorenzo Transcribed By: GISSELL 04/02/24 1530 Dictated By: Alex Sandoval MD 04/02/24 1527 Signed By: 04/02/24 1530NoSelect Specialty Hospital [facility] Physician GroupGlucose Glucometer (dC) [Mass/Vol]Ordered By: Jorge Luis Mcgregor on 49-30-9632Ymyobfc [Mass/Vol]Capillary blood glucose measurement by glucometer (mass/volume)[facility] Rutan HospitalComment on above:Random Glucose Reference Range is dependent on time and content of last meal. Glucose of more than 200 mg/dL in a nonstressed, ambulatory subject supports the diagnosis of Diabetes Mellitus.Glucose Poct Glucometerson 13-93-6307Qsozlwp [Mass/Vol]172 mg/dLSt. Joseph's Women's Hospital Physician GroupComment on above:Result Comment: Random Glucose Reference Range is dependent on time and content of last meal. Glucose of more than 200 mg/dL in a nonstressed, ambulatory subject supports the diagnosis of Diabetes Mellitus. PERFORMED BY: [place] [address] PATHOLOGIST ACTIVITIES VOLUNTEER WICHO EVERETT M.D.Performed By: #### MG, CMP, CBC #### [place] [address] USAGlucose [Mass/Vol]177 mg/dLNoSelect Specialty Hospital [facility] Greens[facility] Physician GroupComment on above:Result Comment: Random Glucose Reference Range is dependent on time and content of last meal. Glucose of more than 200 mg/dL in a nonstressed, ambulatory subject supports the diagnosis of Diabetes Mellitus. PERFORMED BY: [place] [address] PATHOLOGIST ACTIVITIES VOLUNTEER WICHO EVERETT M.D.Performed By: #### MG, CMP, CBC #### [place] [address] USAGlucose [Mass/Vol]154 mg/dLNormMiami Children's Hospital Physician GroupComment on above:Result Comment: Random Glucose Reference Range is dependent on time and content of last meal. Glucose of more than 200 mg/dL in a nonstressed, ambulatory subject supports the diagnosis of Diabetes Mellitus. PERFORMED BY: [place] [address] PATHOLOGIST ACTIVITIES VOLUNTEER WICHO EVERETT M.D.Performed By: #### GLULS #### Point of Care testing ,Glucose Poct Glucometerson 69-60-1483Xfcsgqq [Mass/Vol]222 mg/dLNoSelect Specialty Hospital - [facility] Physician GroupComment on above:Result Comment: Random Glucose Reference Range is dependent on time and content of last meal. Glucose of more than 200 mg/dL in a nonstressed, ambulatory subject supports the diagnosis of Diabetes Mellitus. PERFORMED BY: [place] [address] PATHOLOGIST ACTIVITIES VOLUNTEER WICHO EVERETT M.D.Performed By: #### MG, CMP, CBC #### [place] [address] USAGlucose [Mass/Vol]179 mg/dLSt. Joseph's Women's Hospital Physician GroupComment on above:Result Comment: Random Glucose Reference Range is dependent on time and content of last meal. Glucose of more than 200 mg/dL in a nonstressed, ambulatory subject supports the diagnosis of Diabetes Mellitus. PERFORMED BY: [place] [address] PATHOLOGIST ACTIVITIES VOLUNTEER WICHO EVERETT M.D.Performed By: #### MG, CMP, CBC #### [facility] [address] [place] [address] [id number]: Cleaned MeterNoSelect Specialty Hospital [facility] Physician GroupComment on above:Result Comment: PERFORMED BY: [place] [address] PATHOLOGIST ACTIVITIES VOLUNTEER WICHO EVERETT M.D.Performed By: #### GLULS #### Point of Care testing ,Glucose [Mass/Vol]183 mg/dLNoSelect Specialty Hospital - [facility] Physician GroupComment on above: Result Comment: Random Glucose Reference Range is dependent on time and content of last meal. Glucose of more than 200 mg/dL in a nonstressed, ambulatory subject supports the diagnosis of Diabetes Mellitus.Performed By: #### GLULS #### Point of Care testing ,Glucose [Mass/Vol]176 mg/dLNoSelect Specialty Hospital - [facility] Physician GroupComment on above: Result Comment: Random Glucose Reference Range is dependent on time and content of last meal. Glucose of more than 200 mg/dL in a nonstressed, ambulatory subject supports the diagnosis of Diabetes Mellitus. PERFORMED BY: [place] [address] PATHOLOGIST ACTIVITIES VOLUNTEER WICHO EVERETT M.D.Performed By: #### MG, CMP, CBC #### [facility] [address] [place], [place] [id number] USANo Panel InformationOrdered By: Jorge Luis Mcgregor on 91-71-9034Ttgzmbn Glucose CommentGlu2: cleaned meterMary Rutan HospitalGlucose Poct Glucometerson 95-51-3125Fdytcgw [Mass/Vol]184 mg/dLNoSelect Specialty Hospital [facility] Physician GroupComment on above:Result Comment: Random Glucose Reference Range is dependent on time and content of last meal. Glucose of more than 200 mg/dL in a nonstressed, ambulatory subject supports the diagnosis of Diabetes Mellitus. PERFORMED BY: [place] [address] PATHOLOGIST ACTIVITIES VOLUNTEER WICHO EVERETT M.D.Performed By: #### GLULS #### Point of Care testing ,Shodkac0Uox8: Cleaned MeterNoSelect Specialty Hospital - [facility] Physician GroupComment on above: Result Comment: PERFORMED BY: [place] [address] PATHOLOGIST ACTIVITIES VOLUNTEER WICHO EVERETT M.D.Performed By: #### MG, CMP, CBC #### [facility] [address] [place] [address] USAGlucose [Mass/Vol]171 mg/dLNoSelect Specialty Hospital - [facility] Physician GroupComment on above:Result Comment: Random Glucose Reference Range is dependent on time and content of last meal. Glucose of more than 200 mg/dL in a nonstressed, ambulatory subject supports the diagnosis of Diabetes Mellitus.Performed By: #### MG, CMP, CBC #### [facility] [address] [place] [address] USAGlucose [Mass/Vol]257 mg/dLNoSelect Specialty Hospital - [facility] Physician GroupComment on above:Result Comment: Random Glucose Reference Range is dependent on time and content of last meal. Glucose of more than 200 mg/dL in a nonstressed, ambulatory subject supports the diagnosis of Diabetes Mellitus. PERFORMED BY: [place] [address] PATHOLOGIST ACTIVITIES VOLUNTEER WICHO EVERETT M.D.Performed By: #### MG, CMP, CBC #### [facility] [address] [place] [address] [id number]: Cleaned MeterSt. Joseph's Women's Hospital Physician GroupComment on above:Result Comment: PERFORMED BY: [address] [place] [address] PATHOLOGIST ACTIVITIES VOLUNTEER WICHO EVERETT M.D.Performed By: #### GLULS #### Point of Care testing ,Glucose [Mass/Vol]237 mg/dLSt. Joseph's Women's Hospital Physician GroupComment on above: Result Comment: Random Glucose Reference Range is dependent on time and content of last meal. Glucose of more than 200 mg/dL in a nonstressed, ambulatory subject supports the diagnosis of Diabetes Mellitus.Performed By: #### GLULS #### Point of Care testing ,Basic Metabolic Panelon 66-29-0195Xucts gap [Moles/Vol]11.6 mmol/LNormal 6.0-15.0The [facility] Physician GroupComment on above:Performed By: #### MG, CMP, CBC #### [facility] [address] [place] [address] USACalcium [Mass/Vol]8.6 mg/dLNormal8.6-10.3The [facility] Physician GroupComment on above:Performed By: #### MG, CMP, CBC #### [facility] [address] [place] [address] USAChloride [Moles/Vol]94 mmol/ZPep90-759Mqz [facility] Physician GroupComment on above:Performed By: #### MG, CMP, CBC #### [facility] [address] [place] [address] USACO2 [Moles/Vol]33.6 mmol/LHigh21.0-31.0The [facility] Physician GroupComment on above:Performed By: #### MG, CMP, CBC #### [facility] [address] [place] [id number] USACreatinine [Mass/Vol]0.89 mg/dLNormal0.70-1.30The [facility] Physician GroupComment on above:Performed By: #### MG, CMP, CBC #### [facility] [address] [place] [id number] USACreatinine Clr Calc Ttlmjvmg606.42NormKettering Health Greene Memoriale [facility] Physician GroupComment on above:Performed By: #### MG, CMP, CBC #### [facility] [address] [place] [address] USAGFR/1.73 sq M.predicted MDRD (S/P/Bld) [Vol rate/Area] mL/min/{1.73_m2}NormalThe [facility] Physician GroupComment on above:Performed By: #### MG CMP, CBC #### [facility] [address] [place] [address] USAGlucose [Mass/Vol]214 mg/uAHesw11-698Opo [facility] Physician GroupComment on above:Result Comment: Random Glucose Reference Range is dependent on time and content of last meal. Glucose of more than 200 mg/dL in a nonstressed, ambulatory subject supports the diagnosis of Diabetes Mellitus. ADA recommended reference rangePerformed By: #### MG CMP, CBC #### [facility] [address] [place] [address] USAPotassium [Moles/Vol]4.2 mmol/LNormal3.5-5.1The [facility] Physician GroupComment on above:Performed By: #### MG CMP, CBC #### [facility] [address] [place] [address] USASodium [Moles/Vol]135 mmol/LSignificant change yksb243-628 The [facility] Physician GroupComment on above:Performed By: #### MG CMP, CBC #### [facility] [address] [place] [address] USAUrea nitrogen [Mass/Vol]15 mg/dLNormal7-25The [facility] Physician GroupComment on above:Performed By: #### MG CMP, CBC #### [facility] [address] [place] [address] USACalcium [Mass/volume] in Serum or PlasmaOrdered By: Gomez Sunshine on 89-05-7467Itcnmrx [Mass/Vol]Calcium [Mass/volume] in Serum or Plasma 8.6-10.3FKindred Hospital LimaCarbon dioxide, total [Moles/volume] in Serum or PlasmaOrdered By: Gomez Sunshine on 05-15-7530NI7 [Moles/Vol]Carbon dioxide, total [Moles/volume] in Serum or PsoyxuMfwd30.0-31.0Mary Rutan HospitalChloride [Moles/volume] in Serum or PlasmaOrdered By: Gomez Sunshine on 85-48-9328Mqvcztaz [Moles/Vol]Chloride [Moles/volume] in Serum or SydmzfYao03-303NdnecspxjMary Rutan HospitalCreatinine [Mass/volume] in Serum or PlasmaOrdered By: Gomez Sunshine on 61-64-4980Whyhhwchmi [Mass/Vol] Creatinine [Mass/volume] in Serum or Plasma0.70-1.30Mary Rutan HospitalGlucose Poct Glucometerson 67-20-4790Bjczqpg3Bmo5: Cleaned MeterSt. Joseph's Women's Hospital Physician GroupComment on above:Result Comment: PERFORMED BY: [place] [address] PATHOLOGIST ACTIVITIES VOLUNTEER WICHO EVERETT M.D.Performed By: #### MG, CMP, CBC #### [facility] [address] [place] [address] USAGlucose [Mass/Vol]227 mg/dLNoSelect Specialty [facility] Physician GroupComment on above:Result Comment: Random Glucose Reference Range is dependent on time and content of last meal. Glucose of more than 200 mg/dL in a nonstressed, ambulatory subject supports the diagnosis of Diabetes Mellitus.Performed By: #### MG, CMP, CBC #### [place] [address] PXEJcoutzf4Tee9: Cleaned MeterSt. Joseph's Women's Hospital Physician GroupComment on above:Result Comment: PERFORMED BY: [place] [address] PATHOLOGIST ACTIVITIES VOLUNTEER WICHO EVERETT M.D.Performed By: #### MG, CMP, CBC #### [facility] [address] [place] [address] USAGlucose [Mass/Vol]276 mg/dLNoSelect Specialty Hospital - [facility] Physician GroupComment on above:Result Comment: Random Glucose Reference Range is dependent on time and content of last meal. Glucose of more than 200 mg/dL in a nonstressed, ambulatory subject supports the diagnosis of Diabetes Mellitus.Performed By: #### MG, CMP, CBC #### [facility] [address] [place] [address] USAGlucose [Mass/Vol]262 mg/dLSt. Joseph's Women's Hospital Physician GroupComment on above:Result Comment: Random Glucose Reference Range is dependent on time and content of last meal. Glucose of more than 200 mg/dL in a nonstressed, ambulatory subject supports the diagnosis of Diabetes Mellitus. PERFORMED BY: [place] [address] PATHOLOGIST ACTIVITIES VOLUNTEER WICHO EVERETT M.D.Performed By: #### MG, CMP, CBC #### [facility] [address] [place] [address] [id number]: Cleaned MeterNoSelect Specialty Hospital - [facility] Physician GroupComment on above:Result Comment: PERFORMED BY: [place] [address] PATHOLOGIST ACTIVITIES VOLUNTEER WICHO EVERETT M.D.Performed By: #### GLULS #### Point of Care testing ,Glucose [Mass/Vol]224 mg/dLSt. Joseph's Women's Hospital Physician GroupComment on above: Result Comment: Random Glucose Reference Range is dependent on time and content of last meal. Glucose of more than 200 mg/dL in a nonstressed, ambulatory subject supports the diagnosis of Diabetes Mellitus.Performed By: #### GLULS #### Point of Care testing ,Glucose [Mass/volume] in Serum or PlasmaOrdered By: Gomez Sunshine on 03-11-2024 Glucose [Mass/Vol]Glucose [Mass/volume] in Serum or GvihneAvta51-504IdkxncnznMary Rutan HospitalComment on above:ADA recommended reference rangeRandom Glucose Reference Range is dependent on time and content of last meal. Glucose of more than 200 mg/dL in a nonstressed, ambulatory subject supports the diagnosisof Diabetes Mellitus.No Panel InformationOrdered By: Gomez Sunshine on 46-06-8617Hyyuykbkz GFR (CKD-EPI)> 60.0 mL/MinMary Rutan Hospital Pharmacy Creatinine Clearance (Hrpm332.42[facility] Phosphate [Mass/volume] in Serum or PlasmaOrdered By: Gomez Sunshine on 83-75-7673Nlkjdrvqv [Mass/Vol]Phosphate [Mass/volume] in Serum or Plasma2.5-4.5 [facility] Rutan HospitalPhosphoruson 70-89-0246Qjuuqlcui [Mass/Vol]3.0 mg/dLNormal2.5-4.5The [facility] Physician GroupComment on above:Result Comment: PERFORMED BY: [facility] [address] [place] [address] PATHOLOGIST ACTIVITIES VOLUNTEER WICHO EVERETT M.D.Performed By: #### MG, CMP, CBC #### [place] [address] USAPotassium [Moles/volume] in Serum or PlasmaOrdered By: Gomez Sunshine on 16-26-1262Pldkswuie [Moles/Vol]Potassium [Moles/volume] in Serum or Plasma3.5-5.1FAvita Health System Bucyrus Hospitalerum or plasma anion gap determinationOrdered By: Gomez Sunshine on 42-87-1463Tlqnu gap [Moles/Vol]Serum or plasma anion gap determination6.0-15.0N[facility]wide Children's Hospitalodium [Moles/volume] in Serum or PlasmaOrdered By: Gomez Sunshine on 82-86-0660Zjvnsl [Moles/Vol]Sodium [Moles/volume] in Serum or PlasmaInvalid Interpretation Code 136-145Mary Rutan HospitalComment on above:Delta: 129 on 03/10/24Urea nitrogen [Mass/volume] in Serum or PlasmaOrdered By: Gomez Sunshine on 64-68-3648Qtaf nitrogen [Mass/Vol]Urea nitrogen [Mass/volume] in Serum or Plasma09-28Mary Rutan HospitalVancomycin [Mass/volume] in Serum or Plasma --troughOrdered By: Gomez Sunshine on 27-30-9887Sjnrdotcnz trough [Mass/Vol]Serum or plasma trough vancomycin level10.0-20.0Mary Rutan HospitalComment on above:Last dose: -Vancomycin,Troughon 03-11-2024 Vancomycin,Xafkwn92.8 ug/aULfwtja70.0-20.0The [facility] Physician GroupComment on above:Order Comment: Time of next dose? 499 Date of last dose?: 20240310 Time of last dose?: 2099Result Comment: Last dose: - PERFORMED BY: [place] [address] PATHOLOGIST ACTIVITIES VOLUNTEER WICHO EVERETT M.D.Performed By: #### MG, CMP, CBC #### [facility] [address]Alanine aminotransferase [Enzymatic activity/volume] in Serum or PlasmaOrdered By: Gomez Sunshine on 62-63-1573EVN [Catalytic activity/Vol]Alanine aminotransferase [Enzymatic activity/volume] in Serum or Plasma7Mary Rutan HospitalAlbumin [Mass/volume] in Serum or Plasma by Bromocresol green (BCG) dye binding methoOrdered By: Gomez Sunshine on 83-70-9681Ybuofky BCG dye [Mass/Vol]Albumin [Mass/volume] in Serum or Plasma by Bromocresol green (BCG) dye binding methoLow3.5-5.7FKindred Hospital LimaAlkaline phosphatase [Enzymatic activity/volume] in Serum or PlasmaOrdered By: Gomez Sunshine on 85-09-1348IZA [Catalytic activity/Vol]Alkaline phosphatase [Enzymatic activity/volume] in Serum or Jwuyme75-469PgvnbfezqMary Rutan HospitalAppearance of UrineOrdered By: Gomez Sunshine on 48-27-5859Gamlejbnyr (U) Urine appearanceCleSelect Medical Specialty Hospital - Columbus SouthAspartate aminotransferase [Enzymatic activity/volume] in Serum or PlasmaOrdered By: Gomez Sunshine on 55-33-3053RWL [Catalytic activity/Vol]Aspartate aminotransferase [Enzymatic activity/volume] in Serum or Hfmbne34-69JgzytnvwiMary Rutan Hospital Bacteria [Presence] in Urine by AutomatedOrdered By: Gomez Sunshine on 03-10-2024 Bacteria Auto Ql (U)Bacteria [Presence] in Urine by AutomatedNone SeenMary Rutan HospitalBasophils Auto (Bld) [#/Vol]Ordered By: Gomez Sunshine on 52-91-8518Aaigtmzfd (Bld) [#/Vol]Automated basophil count0.0-0.2FKindred Hospital LimaBasophils/100 WBC Auto (Bld)Ordered By: Gomez Sunshine on 65-48-6560Ezyonttnn/100 WBC (Bld)Automated basophil %.Mary Rutan HospitalBilirubin Test strip Ql (U)Ordered By: Gomez Sunshine on 03-10-2024 Bilirubin Ql (U)Bilirubin.total [Presence] in Urine by Test stripNegative Mary Rutan HospitalBilirubin.total [Mass/volume] in Serum or PlasmaOrdered By: Gomez Sunshine on 10-33-5110Auhcdmdzv [Mass/Vol]Bilirubin.total [Mass/volume] in Serum or Plasma0.3-1.0Mary Rutan HospitalColor Auto (U)Ordered By: Gomez Sunshine on 55-79-4379Lzern (U)Color of Urine by Auto YellowMary Rutan HospitalComplete Blood Count Auto Diffon 03-36-5059Secaxagko (Bld) [#/Vol]0.0 10*3/uLNormal0.0-0.2The [facility] Physician GroupComment on above:Result Comment: PERFORMED BY: [place] [address] PATHOLOGIST ACTIVITIES VOLUNTEER WICHO EVERETT M.D.Performed By: #### MG, CMP, CBC #### [facility] [address] [place] [address] USABasophils/100 WBC (Bld)0.2 %Normal.The [facility] Physician GroupComment on above:Performed By: #### MG, CMP, CBC #### [facility] [address] [place] [address] USAEosinophils (Bld) [#/Vol]0.1 10*3/uLNormal0.0-0.45The [facility] Physician GroupComment on above:Performed By: #### MG, CMP, CBC #### [facility] [address] [place] [address] USAEosinophils/100 WBC (Bld)0.6 %Normal.The [facility] Physician GroupComment on above:Performed By: #### MG, CMP, CBC #### [place] [address] USAErythrocyte distribution width (RBC) [Ratio]14.0 %Normal 12.0-14.8The [facility] Physician GroupComment on above:Performed By: #### MG, CMP, CBC #### [place] [address] USAHematocrit (Bld) [Volume fraction]31.1 %Low38.8-50.0The [facility] Physician GroupComment on above:Performed By: #### MG, CMP, CBC #### [place] [address] USAHemoglobin (Bld) [Mass/Vol]10.6 g/dLLow13.0-17.0The [facility] Physician GroupComment on above:Performed By: #### MG, CMP, CBC #### [place] [address] USALymphocytes (Bld) [#/Vol]0.9 10*3/uLLow1.00-4.8The [facility] Physician GroupComment on above:Performed By: #### MG, CMP, CBC #### [place] [address] USALymphocytes/100 WBC (Bld)8.2 %Normal.The [facility] Physician GroupComment on above:Performed By: #### MG, CMP, CBC #### [place] [address] USAMCH (RBC) [Entitic mass]31.2 grWmpwah94.5-35.2The [facility] Physician GroupComment on above:Performed By: #### MG, CMP, CBC #### [place] [address] USAMCV (RBC) [Entitic vol]91.3 qTOyagus10.5-101The [facility] Physician GroupComment on above:Performed By: #### MG, CMP, CBC #### [address] [place] [address] USAMean Corpuscular HGB Conc34.2 g/pHGwkwsu34.5-35.6The [facility] Physician GroupComment on above:Performed By: #### MG, CMP, CBC #### [place] [address] USAMonocytes (Bld) [#/Vol]0.9 10*3/uLHigh0.0-0.8The [facility] Physician GroupComment on above:Performed By: #### MG, CMP, CBC #### [place] [address] USAMonocytes/100 WBC (Bld)8.2 %Normal.The [facility] Physician GroupComment on above:Performed By: #### MG, CMP, CBC #### [place] [address] USANeutrophils (Bld) [#/Vol]8.7 10*3/uLHigh1.8-7.7The [facility] Physician GroupComment on above:Performed By: #### MG, CMP, CBC #### [place] [address] USANeutrophils/100 WBC (Bld)82.8 %Normal.The [facility] Physician GroupComment on above:Performed By: #### MG, CMP, CBC #### [place] [address] USANRBC%0.1 /100{WBC}Normal0-0.5The [facility]ician Group Comment on above:Performed By: #### MG, CMP, CBC #### [place] [address] USAPlatelet mean volume (Bld) [Entitic vol]8.1 fLNormal 6.6-10.1The [facility] Physician GroupComment on above:Performed By: #### MG, CMP, CBC #### [place] [address] USAPlatelets (Bld) [#/Vol]184 10*3/yYBkwlyd894-332Itd [facility] Physician GroupComment on above:Performed By: #### MG, CMP, CBC #### [place] [address] USARBC (Bld) [#/Vol]3.40 10*6/uLLow3.90-5.60The [facility] Physician GroupComment on above:Performed By: #### MG, CMP, CBC #### [place] [address] USAWBC (Bld) [#/Vol]10.5 10*3/uLNormal4.1-10.5The [facility] Physician GroupComment on above:Performed By: #### MG, CMP, CBC #### [place] [address] USAComprehensive Metabolic Panelon 37-15-7330Pojxabi [Mass/Vol]3.2 g/dLLow3.5-5.7The [facility] Physician GroupComment on above: Performed By: #### MG, CMP, CBC #### [place] [address] USAAlbumin/Globulin [Mass ratio]1.0 {ratio}NormalThe [facility] Physician GroupComment on above:Performed By: #### MG, CMP, CBC #### [place] [address] USAALP [Catalytic activity/Vol]54 U/KNsqljx71-104Cln [facility] Physician GroupComment on above:Performed By: #### MG, CMP, CBC #### [place] [address] USAALT [Catalytic activity/Vol]36 U/LNormal7-52The [facility] Physician GroupComment on above:Performed By: #### MG, CMP, CBC #### [place] [address] USAAnion gap [Moles/Vol]8.0 mmol/LNormal6.0-15.0The [facility] Physician GroupComment on above:Performed By: #### MG, CMP, CBC #### [place] [address] USAAST [Catalytic activity/Vol]39 U/VOykaiv82-36Tit [facility] Physician GroupComment on above:Performed By: #### MG, CMP, CBC #### [place] [address] USABilirubin [Mass/Vol]0.8 mg/dLNormal0.3-1.0The [facility] Physician GroupComment on above:Performed By: #### MG, CMP, CBC #### [place] [address] USACalcium [Mass/Vol]8.3 mg/dLLow8.6-10.3The [facility] Physician GroupComment on above:Performed By: #### MG, CMP, CBC #### [place] [address] USAChloride [Moles/Vol]94 mmol/IKdt73-748Buh [facility] Physician GroupComment on above:Performed By: #### MG, CMP, CBC #### [place] [address] USACO2 [Moles/Vol]30.7 mmol/UQprbfj95.0-31.0The [facility] Physician GroupComment on above:Performed By: #### MG, CMP, CBC #### [place] [address] USACreatinine [Mass/Vol]0.82 mg/dLNormal0.70-1.30The [facility] Physician GroupComment on above:Performed By: #### MG, CMP, CBC #### [place] [address] USACreatinine Clr Calc Pynikwgh103.70NormalThe [facility] Physician GroupComment on above:Performed By: #### MG, CMP, CBC #### [place] [address] USAGFR/1.73 sq M.predicted MDRD (S/P/Bld) [Vol rate/Area] mL/min/{1.73_m2}NormalThe [facility] Physician GroupComment on above:Performed By: #### MG, CMP, CBC #### [place] [id number] USAGlobulin (S) [Mass/Vol]3.1 g/dLNormalThe [facility] Physician GroupComment on above:Performed By: #### MG, CMP, CBC #### [place] [address] USAGlucose [Mass/Vol]222 mg/cBRfac92-423Hso [facility] Physician GroupComment on above:Result Comment: Random Glucose Reference Range is dependent on time and content of last meal. Glucose of more than 200 mg/dL in a nonstressed, ambulatory subject supports the diagnosis of Diabetes Mellitus. ADA recommended reference rangePerformed By: #### MG, CMP, CBC #### [place] [address] USAPotassium [Moles/Vol]3.7 mmol/LNormal3.5-5.1The [facility] Physician GroupComment on above:Performed By: #### MG, CMP, CBC #### [place] [address] USAProtein [Mass/Vol]6.3 g/dLLow6.4-8.9The [facility] Physician GroupComment on above:Performed By: #### MG, CMP, CBC #### [place] [address] USASodium [Moles/Vol]129 mmol/JNfs799-487Kvl [facility] Physician GroupComment on above:Performed By: #### MG, CMP, CBC #### [place] [address] USAUrea nitrogen [Mass/Vol]15 mg/dLNormal7-25The [facility] Physician GroupComment on above:Performed By: #### MG, CMP, CBC #### [place] [address] USADipstick and Microscopicon 99-92-4106Payzvdcjiu (U)Clear NormalClearThe [facility] Physician GroupComment on above:Order Comment: Name Collection Type:: Clean-Voided MidstreamPerformed By: #### MG, CMP, CBC #### [place] [address] USABacteria,UrineRareNormalNone SeenBartow Regional Medical Center Physician GroupComment on above:Order Comment: Name Collection Type:: Clean-Voided MidstreamPerformed By: #### MG, CMP, CBC #### [facility] [address] [place] [address] USABilirubin,UrineNegativeNormalNegativeBartow Regional Medical Center Physician GroupComment on above:Order Comment: Name Collection Type:: Clean- Voided MidstreamPerformed By: #### MG, CMP, CBC #### [facility] [address] [place] [address] USAColor (U)YellowNormalYellowBartow Regional Medical Center Physician Group Comment on above:Order Comment: Name Collection Type:: Clean-Voided Midstream Performed By: #### MG, CMP, CBC #### [facility] [address] [place], [place] [id number] USAGlucose Ql (U)NormalNormalNormalThSt. Mary's Hospital Physician GroupComment on above:Order Comment: Name Collection Type:: Clean-Voided MidstreamPerformed By: #### MG, CMP, CBC #### [facility] [address] [place] [address] USAHyaline Casts,UrineNoneNormal0-8The [facility] Physician GroupComment on above:Order Comment: Name Collection Type:: Clean-Voided MidstreamPerformed By: #### MG, CMP, CBC #### [facility] [address] [place] [address] USAKetones Ql (U)NegativeNormalNegativeBartow Regional Medical Center Physician GroupComment on above:Order Comment: Name Collection Type:: Clean- Voided MidstreamPerformed By: #### MG, CMP, CBC #### [facility] [address] [place] [address] USALeukocyte esterase Test strip Ql (U)NegativeNormalNegative The [facility] Physician GroupComment on above:Order Comment: Name Collection Type:: Clean-Voided MidstreamPerformed By: #### MG, CMP, CBC #### [facility] [address] [place], [place] [id number] USAMucus,UrineRareNormalBartow Regional Medical Center Physician GroupComment on above:Order Comment: Name Collection Type:: Clean-Voided MidstreamResult Comment: PERFORMED BY: [place] [address] PATHOLOGIST ACTIVITIES VOLUNTEER WICHO EVERETT M.D.Performed By: #### MG, CMP, CBC #### [place] [address] USANitrite,UrineNegativeNormalNegativeThe [facility] Physician GroupComment on above:Order Comment: Name Collection Type:: Clean-Voided MidstreamPerformed By: #### MG, CMP, CBC #### [place] [address] USAOccult Blood,Urine1+HighNegativeThe [facility] Physician GroupComment on above:Order Comment: Name Collection Type:: Clean-Voided MidstreamResult Comment: PERFORMED BY: [place] [address] PATHOLOGIST ACTIVITIES VOLUNTEER WICHO EVERETT M.D.Performed By: #### MG, CMP, CBC #### [place] [address] USApH (U)6.0 [pH]Normal5.0-9.0The [facility] Comment on above:Order Comment: Name Collection Type:: Clean-Voided Midstream Performed By: #### MG, CMP, CBC #### [place] [address] USAProtein (U) [Mass/Vol]50 mg/dLHighNegativeThe [facility] Physician GroupComment on above:Order Comment: Name Collection Type:: Clean- Voided MidstreamPerformed By: #### MG, CMP, CBC #### [place] [address] USARBC,Urine1 [HPF]Normal0-4The [facility] Comment on above:Order Comment: Name Collection Type:: Clean-Voided Midstream Performed By: #### MG, CMP, CBC #### [place] [address] USASpecificy [place],Urine1.294Njpv2.001-1.030The [facility] Physician GroupComment on above:Order Comment: Name Collection Type:: Clean- Voided MidstreamPerformed By: #### MG, CMP, CBC #### [facility] [address] [place] [address] USASquamous Epithelial Cell,Urine1 [HPF]Normal0-2The [facility] Physician GroupComment on above:Order Comment: Name Collection Type:: Clean-Voided MidstreamPerformed By: #### MG, CMP, CBC #### [facility] [address] [place] [address] USAUrobilinogen,UrineNormalNormalNormalThe [facility] Physician GroupComment on above:Order Comment: Name Collection Type:: Clean- Voided MidstreamPerformed By: #### MG, CMP, CBC #### [facility] [address] [place] [address] USAWBC,Urine5 [HPF]High0-4The [facility] Comment on above:Order Comment: Name Collection Type:: Clean-Voided Midstream Performed By: #### MG, CMP, CBC #### [facility] [address] [place] [address] USAEosinophils Auto (Bld) [#/Vol]Ordered By: Gomez Sunshine on 81-29-4802Fnsjbltclli (Bld) [#/Vol]Automated eosinophil count0.0-0.45Mary Rutan HospitalEosinophils/100 WBC Auto (Bld)Ordered By: Gomez Sunshine on 60-23-4859Pnzvpmwuxqy/100 WBC (Bld)Automated eosinophil %.Mary Rutan HospitalEpithelial cells.squamous [#/area] in Urine sediment by Automated countOrdered By: Gomez Sunshine on 40-21-0008Bykemsjpxk cells.squamous Auto (Urine sed) [#/Area]Epithelial cells.squamous [#/area] in Urine sediment by Automated count0-2FKindred Hospital LimaErythrocyte distribution width Auto (RBC) [Ratio]Ordered By: Gomez Sunshine on 63-04-2423Jnimixkxgnt distribution width (RBC) [Ratio]Erythrocyte distribution width [Ratio] by Automated count12.0-14.8Mary Rutan HospitalErythrocytes [#/area] in Urine sediment by Automated countOrdered By: Gomez Sunshine on 48-84-8011EIW Auto (Urine sed) [#/Area]Erythrocytes [#/area] in Urine sediment by Automated count0-4FKindred Hospital LimaGlobulin Calc (S) [Mass/Vol]Ordered By: Gomez Sunshine on 00-75-7912Mfcxptfm (S) [Mass/Vol]Serum globulin measurement by calculation (mass/volume)Mary Rutan HospitalGlucose Poct Glucometerson 93-31-1452Ulmlouz [Mass/Vol]267 mg/dLNoSelect Specialty Hospital [facility] Physician GroupComment on above:Result Comment: Random Glucose Reference Range is dependent on time and content of last meal. Glucose of more than 200 mg/dL in a nonstressed, ambulatory subject supports the diagnosis of Diabetes Mellitus. PERFORMED BY: [place] [address] PATHOLOGIST ACTIVITIES VOLUNTEER WICHO EVERETT M.D.Performed By: #### GLULS #### Point of Care testing ,Kzjprjx3Hcg0: Cleaned MeterNoSelect Specialty Hospital - Greensboro Physician GroupComment on above: Result Comment: PERFORMED BY: [place] [address] PATHOLOGIST ACTIVITIES VOLUNTEER WICHO EVERETT M.D.Performed By: #### MG, CMP, CBC #### [facility] [address] [place] [address] USAGlucose [Mass/Vol]232 mg/dLNoSelect Specialty Hospital [facility] Physician GroupComment on above:Result Comment: Random Glucose Reference Range is dependent on time and content of last meal. Glucose of more than 200 mg/dL in a nonstressed, ambulatory subject supports the diagnosis of Diabetes Mellitus.Performed By: #### MG, CMP, CBC #### [facility] [address] [place] [address] USAGlucose [Mass/Vol]259 mg/dLNoSelect Specialty Hospital [facility] Physician GroupComment on above:Result Comment: Random Glucose Reference Range is dependent on time and content of last meal. Glucose of more than 200 mg/dL in a nonstressed, ambulatory subject supports the diagnosis of Diabetes Mellitus. PERFORMED BY: [facility] [address] [place] [id number] PATHOLOGIST ACTIVITIES VOLUNTEER WICHO EVERETT M.D.Performed By: #### GLULS #### Point of Care testing ,Glucose [Mass/Vol]240 mg/dLSt. Joseph's Women's Hospital Physician GroupComment on above: Result Comment: Random Glucose Reference Range is dependent on time and content of last meal. Glucose of more than 200 mg/dL in a nonstressed, ambulatory subject supports the diagnosis of Diabetes Mellitus. PERFORMED BY: [facility] [address] [place] [address] PATHOLOGIST ACTIVITIES VOLUNTEER WICHO EVERETT M.D.Performed By: #### MG, CMP, CBC #### [place] [address] USAGlucose [Mass/volume] in Urine by Test stripOrdered By: Gomez Sunshine on 61-15-0962Lvtszim Test strip (U) [Mass/Vol]Glucose [Mass/volume] in Urine by Test stripNormalMary Rutan Hospital Hematocrit Auto (Bld) [Volume fraction]Ordered By: Gomez Sunshine on 03-10-2024 Hematocrit (Bld) [Volume fraction]Hematocrit [Volume Fraction] of Blood by Automated nzbbjZyj47.8-50.0Mary Rutan HospitalHemoglobin Test strip Ql (U)Ordered By: Gomez Sunshine on 76-79-5253Owcefptkzs Ql (U)Hemoglobin [Presence] in Urine by Test stripHighNegativeMary Rutan Hospital Hemoglobin [Mass/volume] in BloodOrdered By: oGmez Sunshine on 03-10-2024 Hemoglobin (Bld) [Mass/Vol]Hemoglobin [Mass/volume] in JdmptMec23.0-17.0 [facility] Rutan HospitalHyaline casts [#/area] in Urine sediment by Automated countOrdered By: Gomez Sunshine on 76-27-3231Ewlgcje casts Auto (Urine sed) [#/Area]Hyaline casts [#/area] in Urine sediment by Automated count0-8 [facility] HospitalKetones Test strip Ql (U)Ordered By: Gomez Sunshine on 06-32-7532Bjqykvw Ql (U)Ketones [Presence] in Urine by Test strip NegativeMary Rutan HospitalLeukocyte esterase [Presence] in Urine by Test stripOrdered By: Gomez Sunshine on 24-34-8969Jifmelfst esterase Test strip Ql (U)Leukocyte esterase [Presence] in Urine by Test stripNegative [facility] Rut[facility] HospitalLeukocytes [#/area] in Urine sediment by Automated countOrdered By: Gomez Sunshine on 18-36-2945IPY Auto (Urine sed) [#/Area]Leukocytes [#/area] in Urine sediment by Automated countHigh0-4FKindred Hospital LimaLeukocytes [#/volume] corrected for nucleated erythrocytes in Blood by Automated counOrdered By: Gomez Sunshine on 03-10-2024 WBC corrected for nucl RBC Auto (Bld) [#/Vol]Leukocytes [#/volume] corrected for nucleated erythrocytes in Blood by Automated coun4.1-10.5FKindred Hospital LimaLymphocytes Auto (Bld) [#/Vol]Ordered By: Gomez Sunshine on 53-44-8934Doqvzampalx (Bld) [#/Vol]Lymphocytes [#/volume] in Blood by Automated countLow1.00-4.8Mary Rutan HospitalLymphocytes/100 WBC Auto (Bld) Ordered By: Gomez Sunshine on 62-58-4501Prtmubrehvl/100 WBC (Bld)Lymphocytes/100 leukocytes in Blood by Automated count.Mary Rutan HospitalMCH Auto (RBC) [Entitic mass]Ordered By: Gomez Sunshine on 07-06-1837PUN (RBC) [Entitic mass]MCH [Entitic mass] by Automated count27.5-35.2FKindred Hospital LimaMCHC Auto (RBC) [Mass/Vol]Ordered By: Gomez Sunshine on 23-70-4451FUOQ (RBC) [Mass/Vol]MCHC [Mass/volume] by Automated count32.5-35.6FKindred Hospital LimaMCV Auto (RBC) [Entitic vol]Ordered By: Gomez Sunshine on 21-20-7298PTJ (RBC) [Entitic vol]MCV [Entitic volume] by Automated count83.5-101 [facility] Rutan HospitalMagnesiumon 50-49-4029Jtjiehacg [Mass/Vol]1.9 mg/dLNormal1.9-2.7The [facility] Physician GroupComment on above:Result Comment: PERFORMED BY: [facility] [address] [place] [address] PATHOLOGIST ACTIVITIES VOLUNTEER WICHO EVERETT M.D.Performed By: #### MG, CMP, CBC #### [place] [address] USAMagnesium [Mass/volume] in Serum or PlasmaOrdered By: Gomez Guan on 19-99-5654Cbyuleqdq [Mass/Vol]Magnesium [Mass/volume] in Serum or Plasma1.9-2.7FKindred Hospital LimaMonocytes Auto (Bld) [#/Vol] Ordered By: Gomez Sunshine on 84-50-6658Vygwgfvsn (Bld) [#/Vol]Automated blood monocyte countHigh0.0-0.8Mary Rutan HospitalMonocytes/100 WBC Auto (Bld)Ordered By: Gomez Sunshine on 48-32-9632Pukofhvot/100 WBC (Bld)Automated monocyte %.[facility] Rutan HospitalMucus [Presence] in Urine by AutomatedOrdered By: Gomez Sunshine on 75-65-3959Wjhoh Auto Ql (U)Mucus [Presence] in Urine by AutomatedMary Rutan HospitalNeutrophils Auto (Bld) [#/Vol]Ordered By: Gomez Sunshine on 00-42-6903Yzdgrcxnksp (Bld) [#/Vol]Neutrophils [#/volume] in Blood by Automated countHigh1.8-7.7FKindred Hospital LimaNeutrophils/100 WBC Auto (Bld)Ordered By: Gomez Guan on 97-68-2996Ewqkklgeorc/100 WBC (Bld)Automated neutrophil %.Mary Rutan HospitalNitrite Test strip Ql (U)Ordered By: Gomez Sunshine on 03-10-2024 Nitrite Ql (U)Nitrite [Presence] in Urine by Test stripNegativeMary Rutan HospitalNucleated erythrocytes [Presence] in Blood by Automated countOrdered By: Gomez Sunshine on 21-83-0814Khjtlyasm RBC Auto Ql (Bld)Nucleated erythrocytes [Presence] in Blood by Automated count0-0.5FKindred Hospital LimaPlatelet mean volume Auto (Bld) [Entitic vol]Ordered By: Gomez Sunshine on 27-01-2462Bdncrfvx mean volume (Bld) [Entitic vol]Platelet mean volume [Entitic volume] in Blood by Automated count6.6-10.1FKindred Hospital LimaPlatelets Auto (Bld) [#/Vol]Ordered By: Gomez Sunshine on 93-14-9143Dtzhtnpki (Bld) [#/Vol]Platelets [#/volume] in Blood by Automated -412UxxdsjaqtMary Rutan HospitalProtein Test strip (U) [Mass/Vol] Ordered By: Gomez Sunshine on 09-77-6507Xuldbxg (U) [Mass/Vol]Protein [Mass/volume] in Urine by Test stripHighNegThe Christ HospitalProtein [Mass/volume] in Serum or PlasmaOrdered By: Gomez Sunshine on 35-61-2443Izrxnto [Mass/Vol]Protein [Mass/volume] in Serum or PlasmaLow6.4-8.9 [facility] Rutan HospitalRBC Auto (Bld) [#/Vol]Ordered By: Gomez Sunshine on 75-26-2488KXE (Bld) [#/Vol]Erythrocytes [#/volume] in Blood by Automated countLow3.90-5.60N[facility]wide Children's Hospitalerum or plasma albumin/globulin mass ratioOrdered By: Gomez Sunshine on 03-10-2024 Albumin/Globulin [Mass ratio]Serum or plasma albumin/globulin mass ratio [facility] Children's Hospitalpecific gravity Test strip (U) [Rel density] Ordered By: Gomez Sunshine on 88-84-5001Yberkfow gravity (U) [Rel density] Specific gravity of Urine by Test stripHigh1.001-1.030Mary Rutan HospitalUrobilinogen Test strip (U) [Mass/Vol]Ordered By: Gomez Sunshine on 08-09-1590Dldlocicsffj (U) [Mass/Vol]Urobilinogen [Mass/volume] in Urine by Test stripNoalMary Rutan HospitalVancomycin [Mass/volume] in Serum or Plasma --peakOrdered By: Gomez Sunshine on 52-76-2451Twxjqhwxip peak [Mass/Vol]Vancomycin [Mass/volume] in Serum or Plasma --peak20.0-40.0Mary Rutan HospitalComment on above:Last dose: -Vancomycin,Peakon 03-10-2024 Vancomycin,Peak22.6 ug/hSBtjmlr85.0-40.0The [facility] Physician GroupComment on above:Order Comment: Comment ?DRAW 1 HOUR AFTER INFUSION COMPLETES Date of last dose?: 20240310 Time of last dose?: 2099Result Comment: Last dose: - PERFORMED BY: [address] [address] PATHOLOGIST ACTIVITIES VOLUNTEER WICHO EVERETT M.D.Performed By: #### GLULS #### Point of Care testing ,WBC Auto (Bld) [#/Vol]Ordered By: Gomez Sunsihne on 81-32-2340OJH (Bld) [#/Vol] Leukocytes [#/volume] in Blood by Automated count4.1-10.5FKindred Hospital LimapH Test strip (U)Ordered By: Gomez Sunshine on 15-09-6101tK (U)pH of Urine by Test strip5.0-9.0Mary Rutan HospitalA1C with Estimated Average Gluon 85-76-2720Tjtzwvl [Mass/Vol]192 mg/dLNoalThSt. Mary's Hospital Physician GroupComment on above:Result Comment: PERFORMED BY: [address] [address] PATHOLOGIST ACTIVITIES VOLUNTEER WICHO EVERETT M.D.Performed By: #### MG, CMP, CBC #### [facility] [address] [place] [address] UUPZzG7d (Bld) [Mass fraction]8.3 %High4.3-5.6The [facility] Physician GroupComment on above:Result Comment: Increased risk for diabetes: 5.7 - 6.4 diabetes: >6.4 glycemic control for adults with diabetes: <7.0Performed By: #### MG, CMP, CBC #### [facility] [address] [place] [address] USABasic Metabolic Panelon 66-75-1426Jdzsr gap [Moles/Vol] 10.8 mmol/LNormal6.0-15.0The [facility] Physician GroupComment on above:Performed By: #### MG, CMP, CBC #### [facility] [address] [place] [address] USACalcium [Mass/Vol]8.4 mg/dLLow8.6-10.3The [facility] Physician GroupComment on above:Performed By: #### MG, CMP, CBC #### [facility] [address] [place] [address] USAChloride [Moles/Vol]94 mmol/DRnu01-596Mwg [facility] Physician GroupComment on above:Performed By: #### MG, CMP, CBC #### [facility] [address] [place] [address] USACO2 [Moles/Vol]29.4 mmol/PPjafaq45.0-31.0The [facility] Physician GroupComment on above:Performed By: #### MG, CMP, CBC #### [facility] [address] [place] [address] USACreatinine [Mass/Vol]0.84 mg/dLNormal0.70-1.30The [facility] Physician GroupComment on above:Performed By: #### MG, CMP, CBC #### [facility] [address] [place] [address] USACreatinine Clr Calc Anwytyax494.63NormalThe [facility] Physician GroupComment on above:Performed By: #### MG, CMP, CBC #### [facility] [address] [place] [address] USAGFR/1.73 sq M.predicted MDRD (S/P/Bld) [Vol rate/Area] mL/min/{1.73_m2}NormalThe [facility] Physician GroupComment on above:Performed By: #### MG, CMP, CBC #### [facility] [address] [place] [address] USAGlucose [Mass/Vol]185 mg/yWLjic00-185Nxy [facility] Physician GroupComment on above:Result Comment: Random Glucose Reference Range is dependent on time and content of last meal. Glucose of more than 200 mg/dL in a nonstressed, ambulatory subject supports the diagnosis of Diabetes Mellitus. ADA recommended reference rangePerformed By: #### MG, CMP, CBC #### [facility] [address] [place] [address] USAPotassium [Moles/Vol]3.2 mmol/LLow3.5-5.1The [facility] Physician GroupComment on above:Performed By: #### MG, CMP, CBC #### [facility] [address] [place] [address] USASodium [Moles/Vol]131 mmol/YAns981-523Emy [facility] Physician GroupComment on above:Performed By: #### MG, CMP, CBC #### [facility] [address] [place] [address] USAUrea nitrogen [Mass/Vol]15 mg/dLNormal7-25The [facility] Physician GroupComment on above:Performed By: #### MG, CMP, CBC #### [facility] [address] [place] [address] USAAnion gap [Moles/Vol]11.4 mmol/LNormal6.0-15.0The [facility] Physician GroupComment on above:Performed By: #### MG, CMP, CBC #### [facility] [address] [place] [address] USACalcium [Mass/Vol]8.4 mg/dLLow8.6-10.3The [facility] Physician GroupComment on above:Performed By: #### MG, CMP, CBC #### [facility] [address] [place] [address] USAChloride [Moles/Vol]94 mmol/LEgh59-054Pts [facility] Physician GroupComment on above:Performed By: #### MG, CMP, CBC #### [place] [address] USACO2 [Moles/Vol]29.2 mmol/UDbljsm64.0-31.0The [facility] Physician GroupComment on above:Performed By: #### MG, CMP, CBC #### [place] [address] USACreatinine [Mass/Vol]0.86 mg/dLNormal0.70-1.30The [facility] Physician GroupComment on above:Performed By: #### MG, CMP, CBC #### [place] [address] USACreatinine Clr Calc Ahwrhgpr735.76NormalThe [facility] Physician [facility] CenterComment on above:Result Comment: PERFORMED BY: [place] [address] PATHOLOGIST ACTIVITIES VOLUNTEER WICHO EVERETT M.D.Performed By: #### MG, CMP, CBC #### [place] [address] USAGFR/1.73 sq M.predicted MDRD (S/P/Bld) [Vol rate/Area] mL/min/{1.73_m2}NormalThe [facility] Physician [facility] CenterComment on above:Performed By: #### MG, CMP, CBC #### [place] [address] USAGlucose [Mass/Vol]196 mg/uFYtoi33-116Avm [facility] Physician GroupComment on above:Result Comment: Random Glucose Reference Range is dependent on time and content of last meal. Glucose of more than 200 mg/dL in a nonstressed, ambulatory subject supports the diagnosis of Diabetes Mellitus. ADA recommended reference rangePerformed By: #### MG, CMP, CBC #### [place] [address] USAPotassium [Moles/Vol]3.6 mmol/LNormal3.5-5.1The [facility] Physician GroupComment on above:Result Comment: Hemolysis is present at a level that could interfere with the result. Contact lab if redraw is requiredPerformed By: #### MG, CMP, CBC #### [facility] [address] [place] [address] USASodium [Moles/Vol]131 mmol/RDtp529-795Tih [facility] Physician GroupComment on above:Performed By: #### MG, CMP, CBC #### [facility] [address] [place] [address] USAUrea nitrogen [Mass/Vol]16 mg/dLNormal7-25The [facility] Physician GroupComment on above:Performed By: #### MG, CMP, CBC #### [facility] [address] [place] [address] USABlood Cultureon 78-24-1594Cyokbnaa identified Cx Nom (Bld) NO GROWTH 5 DAYS PERFORMED BY: [place] [address] PATHOLOGIST ACTIVITIES VOLUNTEER WICHO EVERETT M.D.NormalThe [facility] Physician GroupComment on above: Performed By: #### MG, CMP, CBC #### [place] [address] USABacteria identified Cx Nom (Bld)NO GROWTH 5 DAYS PERFORMED BY: [place] [address] PATHOLOGIST ACTIVITIES VOLUNTEER WICHO EVERETT M.D.[facility] Physician [facility] Medical CenterComment on above: Performed By: #### MG, CMP, CBC #### [facility] [address] [place] [address] USABlood estimated average glucose determination by estimation from glycated hemoglobinOrdered By: Yecenia Meléndez on 69-09-1600Wwebfhz glucose Estimated from glycated hemoglobin (Bld) [Mass/Vol]Glucose mean value [Mass/volume] in Blood Estimated from glycated hemoglobinMary Rutan HospitalC reactive protein [Mass/volume] in Serum or PlasmaOrdered By: Yecenia Meléndez on 78-16-4230KVV [Mass/Vol]C reactive protein [Mass/volume] in Serum or PlasmaHigh0.0-0.5FKindred Hospital LimaC-Reactive Proteinon 93-27-0788B-Reactive Pnfnjnt31.1 mg/dLHigh0.0-0.5The [facility] Comment on above:Result Comment: PERFORMED BY: [place] [address] PATHOLOGIST ACTIVITIES VOLUNTEER WICHO EVERETT M.D.Performed By: #### MG, CMP, CBC #### [place] [address] USACT lower leg LT w conon 26-62-9974DM lower leg LT w con [facility] Main [place] [address] [place], [place] [id number] CT Scan Report Signed Patient: Juan Bean JR MR#: [id number] : 1965 Acct:[id number] Age/Sex: 59 / M ADM Date: 03/08/24 Loc: Room: [address] [place] [address] Type: ADM IN Attending Dr: Gomez Sunshine [...] Tyrese Coon M.D.03/09/2024 7:51 PM Dictation Location: [place] [address] Transcribed By: [facility] 03/09/241950 Dictated By: Tyrese Coon II, MD 03/09/241943 Signed By: 03/09/241950NoSelect Specialty Hospital - [facility] Physician [facility] CenterComplete Blood Count Auto Diffon 34-04-4514Hamriatmm (Bld) [#/Vol]0.1 10*3/uLNormal0.0-0.2The [facility] Physician GroupComment on above:Performed By: #### MG, CMP, CBC #### [facility] [address] [place] [address] USABasophils/100 WBC (Bld)0.5 %Normal.[facility] Physician GroupComment on above:Performed By: #### MG, CMP, CBC #### [facility] [address] [place] [address] USAEosinophils (Bld) [#/Vol]0.0 10*3/uLNormal0.0-0.45The [facility] Physician GroupComment on above:Performed By: #### MG, CMP, CBC #### [facility] [address] [place] [address] USAEosinophils/100 WBC (Bld)0.0 %Normal.[facility] Physician GroupComment on above:Performed By: #### MG, CMP, CBC #### [facility] [address] [place] [address] USAErythrocyte distribution width (RBC) [Ratio]14.0 %Normal 12.0-14.8The [facility] Physician GroupComment on above:Performed By: #### MG, CMP, CBC #### [place] [address] USAHematocrit (Bld) [Volume fraction]33.6 %Low38.8-50.0The [facility] Physician GroupComment on above:Performed By: #### MG, CMP, CBC #### [place] [address] USAHemoglobin (Bld) [Mass/Vol]11.4 g/dLLow13.0-17.0The [facility] Physician GroupComment on above:Performed By: #### MG, CMP, CBC #### [place] [address] USALymphocytes (Bld) [#/Vol]0.8 10*3/uLLow1.00-4.8The [facility] Physician GroupComment on above:Performed By: #### MG, CMP, CBC #### [place] [address] USALymphocytes/100 WBC (Bld)5.7 %Normal.[facility] Physician GroupComment on above:Performed By: #### MG, CMP, CBC #### [place] [address] USAMCH (RBC) [Entitic mass]31.0 onAzcaoa09.5-35.2The [facility] Physician GroupComment on above:Performed By: #### MG, CMP, CBC #### [place] [address] USAMCV (RBC) [Entitic vol]91.5 qGWkgqmm11.5-101The [facility] Physician GroupComment on above:Performed By: #### MG, CMP, CBC #### [place] [address] USAMean Corpuscular HGB Conc33.8 g/jFWjkasd75.5-35.6The [facility] Physician GroupComment on above:Performed By: #### MG, CMP, CBC #### [address] [address] USAMonocytes (Bld) [#/Vol]0.6 10*3/uLNormal0.0-0.8The [facility] Physician GroupComment on above:Performed By: #### MG, CMP, CBC #### [facility] [address] [place] [address] USAMonocytes/100 WBC (Bld)4.5 %Normal.[facility] Physician GroupComment on above:Performed By: #### MG, CMP, CBC #### [facility] [address] [place] [address] USANeutrophils (Bld) [#/Vol]12.4 10*3/uLHigh1.8-7.7The [facility] Physician GroupComment on above:Performed By: #### MG, CMP, CBC #### [place] [address] USANeutrophils/100 WBC (Bld)89.3 %Normal.[facility] Physician GroupComment on above:Performed By: #### MG, CMP, CBC #### [facility] [address] [place] [address] USANRBC%0.3 /100{WBC}Normal0-0.5The [facility] Physician Group Comment on above:Performed By: #### MG, CMP, CBC #### [facility] [address] [place] [address] USAPlatelet mean volume (Bld) [Entitic vol]8.0 fLNormal 6.6-10.1The [facility] Physician GroupComment on above:Performed By: #### MG, CMP, CBC #### [facility] [address] [place] [address] USAPlatelets (Bld) [#/Vol]196 10*3/mXRgsjqx777-865Kqu [facility] Physician GroupComment on above:Performed By: #### MG, CMP, CBC #### [facility] [address] [place] [address] USARBC (Bld) [#/Vol]3.67 10*6/uLLow3.90-5.60The [facility] Physician GroupComment on above:Performed By: #### MG, CMP, CBC #### [facility] [address] [place] [address] USAWBC (Bld) [#/Vol]13.9 10*3/uLHigh4.1-10.5The [facility] Physician GroupComment on above:Performed By: #### MG, CMP, CBC #### [facility] [address] [place] [id number] USAErythrocyte Sedimentation Rateon 79-45-9434USB (Bld) [Velocity]67 mm/hHigh0-19The [facility] Physician GroupComment on above:Result Comment: PERFORMED BY: [place] [address] PATHOLOGIST ACTIVITIES VOLUNTEER WICHO EVERETT M.D.Performed By: #### MG, CMP, CBC #### [facility] [address] [place] [address] USAErythrocyte sedimentation rate by Photometric method Ordered By: Yecenia Meléndez on 80-60-6652SAK Photometric method (Bld) [Velocity] Erythrocyte sedimentation rate by Photometric methodHigh0-19Mary Rutan HospitalGlucose Poct Glucometerson 69-87-4325Yguwsww [Mass/Vol]212 mg/dL NormalThe [facility] Physician GroupComment on above:Result Comment: Random Glucose Reference Range is dependent on time and content of last meal. Glucose of more than 200 mg/dL in a nonstressed, ambulatory subject supports the diagnosis of Diabetes Mellitus. PERFORMED BY: [place] [address] PATHOLOGIST ACTIVITIES VOLUNTEER WICHO EVERETT M.D.Performed By: #### GLULS #### Point of Care testing ,Glucose [Mass/Vol]328 mg/dLNormalThe [facility] Physician GroupComment on above: Result Comment: Random Glucose Reference Range is dependent on time and content of last meal. Glucose of more than 200 mg/dL in a nonstressed, ambulatory subject supports the diagnosis of Diabetes Mellitus. PERFORMED BY: [place] [address] PATHOLOGIST ACTIVITIES VOLUNTEER WICHO EVERETT M.D.Performed By: #### GLULS #### Point of Care testing ,Glucose [Mass/Vol]240 mg/dLNoSelect Specialty Hospital - Greensboro Physician GroupComment on above: Result Comment: Random Glucose Reference Range is dependent on time and content of last meal. Glucose of more than 200 mg/dL in a nonstressed, ambulatory subject supports the diagnosis of Diabetes Mellitus. PERFORMED BY: [place] [address] PATHOLOGIST ACTIVITIES VOLUNTEER WICHO EVERETT M.D.Performed By: #### MG, CMP, CBC #### [place] [address] USAGlucose [Mass/Vol]242 mg/dLNoSelect Specialty Hospital - [facility]boro Physician GroupComment on above:Result Comment: Random Glucose Reference Range is dependent on time and content of last meal. Glucose of more than 200 mg/dL in a nonstressed, ambulatory subject supports the diagnosis of Diabetes Mellitus. PERFORMED BY: [place] [id number] PATHOLOGIST ACTIVITIES VOLUNTEER WICHO EVERETT M.D.Performed By: #### GLULS #### Point of Care testing ,Hemoglobin A1c/Hemoglobin.total in BloodOrdered By: Yecenia Meléndez on 03-09-2024 HbA1c (Bld) [Mass fraction]Hemoglobin A1c percentageHigh4.3-5.6FKindred Hospital LimaComment on above:Increased risk for diabetes: 5.7 - 6.4diabetes: >6.4glycemic control for adults with diabetes: <7.0INR in Platelet poor plasma by Coagulation assayOrdered By: Yecenia Meléndez on 03-09-2024 INR Coag (PPP) [Relative time]INR in Platelet poor plasma by Coagulation assay [facility] Rutan HospitalComment on above:INR Therapeutic Range A) Pre- [...] and Antimicrobial susceptibilityOrdered By: Yecenia Meléndez on 40-26-4828Ixrlxegb identified Cx Nom (Bld)NO GROWTH 5 DAYSMary Rutan HospitalBacteria identified Cx Nom (Bld)NO GROWTH 5 DAYSMary Rutan Hospital Magnesiumon 87-38-9078Nkqwvmzzj [Mass/Vol]1.4 mg/dLLow1.9-2.7The [facility] Physician GroupComment on above:Performed By: #### MG, CMP, CBC #### [facility] [address] [place] [address] USAPartial Thromboplastin Timeon 37-08-4295bROT Coag (Bld) [Time]36.5 iXikaql14.1-36.5The [facility] Physician GroupComment on above:Result Comment: A hematocrit value greater than 55% may lead to inaccurate results in coagulation testing. Patients having hematocrit values >55% require a special collection tube for coagulation studies. Please contact the laboratory at [phone] for redraw instructions. PERFORMED BY: [address] [address] PATHOLOGIST ACTIVITIES VOLUNTEER WICHO EVERETT M.D.Performed By: #### MG, CMP, CBC #### [address] [address] USAPhosphoruson 92-87-9572Pxwrwjean [Mass/Vol]1.9 mg/dLLow 2.5-4.5The [facility] Physician GroupComment on above:Order Comment: Comment Please add to AM labsResult Comment: PERFORMED BY: [address] [address] PATHOLOGIST ACTIVITIES VOLUNTEER WICHO EVERETT M.D.Performed By: #### MG, CMP, CBC #### [place] [id number] USAProthrombin Time INRon 31-59-0523TZG Coag (PPP) [Relative time]1.2 {INR}NormalThe [facility] Physician GroupComment on above:Result Comment: INR Therapeutic [...] 4.5Performed By: #### MG, CMP, CBC #### [facility] [address] [place] [address] USAPT Coag (PPP) [Time]14.3 sHigh9.0-12.9The [facility] Physician GroupComment on above:Result Comment: A hematocrit value greater than 55% may lead to inaccurate results in coagulation testing. Patients having hematocrit values >55% require a special collection tube for coagulation studies. Please contact the laboratory at [phone] for redraw instructions.Performed By: #### MG, CMP, CBC #### [facility] [address] [place] [address] USAProthrombin time (PT)Ordered By: Yecenia Meléndez on 03-09-2024 PT Coag (PPP) [Time]Prothrombin time (PT)High9.0-12.9Mary Rutan HospitalComment on above:A hematocrit value greater than 55% may lead to inaccurate results in coagulation testing. Patientshaving hematocrit values >55% require a special collection tube for coagulation studies. Please contact the laboratory at [phone] for redraw instructions.aPTT in Platelet poor plasma by Coagulation assayOrdered By: Yecenia Meléndez on 19-25-6254eUZD Coag (PPP) [Time] Activated partial thromboplastin time (aPTT) in platelet poor plasma by coagulation a25.1-36.5FKindred Hospital LimaComment on above:A hematocrit value greater than 55% may lead to inaccurate results in coagulation testing. Patientshaving hematocrit values >55% require a special collection tube for coagulation studies. Please contact the laboratory at [phone] for redraw instructions.Blood Cultureon 00-10-2859Cukpisuu identified Cx Nom (Bld) Gram Stain Gram [...] RESISTANT TO ALL B-LACTAM DRUGS. PERFORMED BY: [address] [place] [address] PATHOLOGIST ACTIVITIES VOLUNTEER WICHO EVERETT M.D.[facility] Physician GroupComment on above: Performed By: #### [...] <4 Tobramycin S <2 Trimethoprim/Sulfamethoxazole S <0.5 [employer]aiser[employer] BCID Panel results called at 1601 on 03/08/24 Staphylococcus aureus DNA [Presence] by OLGA with non-probe detection in Positive blood culture Not detected Bacteroides fragilis DNA [Presence] by OLGA with non-probe detection in Positive blood culture Not detected Margaret auris DNA [Presence] by OLGA with non-probe detection in Positive blood culture Not detected Margaret albicans DNA [Presence] by OLGA with non-probe detection [...] [Presence] by Molecular method Not detected Margaret krusei DNA [Presence] by OLGA with non-probe [...] culture Not detected Group A (Streptococcus pyogenes) [id number] Not detected Group B Strep (Streptococcus agalactiae) [...] or Specimen by Molecular (more contentnot included)...NormalThe [facility] Physician [facility] Comment on above:Performed By: #### GLULS #### Point of Care testing ,Laboratory - Microbiology and Antimicrobial susceptibilityOrdered By: Mike Phelan on 31-22-5412Xkkhqvfe identified Cx Nom (Bld)Escherichia coliAbnormal [facility] Rut[facility] HospitalBacteria identified Cx Nom (Bld)Abnormal [facility] HospitalNo Panel InformationOrdered By: Mike Phelan on 95-26-2060Kyterwcor ID (NA Multiplex Assay)[facility] Bacterial ID (NA Multiplex Assay)[facility] HospitalLaboratory - Hematology and Cell countson 52-73-8391PrP2l (Bld) [Mass fraction]7.3 %NOMS HealthcareNo Panel Informationon 44-88-6850Vitbmcmlpvugon and review of laboratory resultsAbnormEncompass Health Rehabilitation Hospital of Nittany ValleyNOAL HealthcarePre-Certification Formon 72-34-8483Llh-Certification Form [id number]#1.00CD:[address] [place], [place] [address]RAD - CT Reporton 04-14-5304LOD - CT Report [id number]#1.00CD:[address] [place], [place] [address]Consultation Noteon 33-01-8029Ocdmhjjvekji Note [id number]:[address] [place], [place] [address]CNPNon 38-03-2863MIBLAubprrqwr (UROLMN) JUAN BEAN ([id number]) 1965 M Date Time Provider Department 08/19/22 [...] (HC*07/12/2022 Encounter Status:Closed by VÍCTOR ROSALES on 08/19/22NoBrown [facility] POSTPROC EVALon 99-86-1378WHEK POSTPROC EVALHNO ID: [id number] Author: Brennan Henley MD Service: ? Author Type: Anesthesiologist Type: Anesthesia Postprocedure Evaluation Filed: 08/13/2022 5:07 PM Note Text: POST ANESTHESIA EVALUATION NOTE : 1965 Procedure Summary Date: 08/13/22 Room / Location: [address] Anesthesia Start: 1448 Anesthesia Stop: 1632 [...] August 13, 2022 TIME: 5:06 PM CSN: [id number] [facility] PRE-OPon 59-13-9718IMJR PRE-OPHNO ID: [id number] Author: Brennan Henley MD Service: ? Author Type: Anesthesiologist Type: Anesthesia Preprocedure Evaluation Filed: 08/13/2022 1:52 PM Note Text: ANESTHESIOLOGY DAY OF SURGERY NOTE : 1965 Procedure Information Date/Time: 08/13/22 1310 Procedures: BIOPSY PENIS (Penis) EXCISION BENIGN LESION GENITALS 3.1 TO 4.0 CM (Penis) Location: [address] [facility] Surgeons: Víctor Rosales MD [...] August 13, 2022 TIME: 1:51 PM CSN: [id number] Hospital OP NOTon 11-26-2178MVTYR OP NOTHNO ID: [id number] Author: Vinh Montague MD Service: Urology Author Type: Resident Type: Brief Op Note Filed: 08/13/2022 4:03 PM Note Text: UROLOGY SERVICE BRIEF OPERATIVE NOTE LOG ID: [id number] Surgery/Procedure Date: 08/13/2022 Incision/Procedure Start Time: 3:30 PM Incision Close/Procedure End Time: 3:57 PM Patient Age: [age] year old Surgeon(s)/Proceduralist(s) and Lime Burner(s): Surgeon(s) and Role: * Víctor Rosales MD [...] August 13, 2022 TIME: 4:00 PM PAGER/CONTACT #:NormalSelect Medical Specialty [facility] ClevelandCNCOon 08-13-2022 CNCOLetter TextNormalCTriHealthTORY PHYSICALon 08-13-2022 HISTORY PHYSICALHNO ID: [id number] Author: Hollis Lugo MD Service: Urology Author [...] Hollis Lugo MD, MS Urology PGY-2 Pager: [phone] [facility] Urology Service Pager: [phone] State East Hospital PROGon 29-61-5319WNMTPVN PRODESIRAE ID: [id number] Author: Fany Dorado RN Service: ? 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 Bean M023-33, needs letter written not to work for at least one week. Thanks Fany [phone] This note was completed by: Fany NicolasParkview Health Bryan Hospital ID: [id number] Author: Fany Dorado RN Service: ? Author Type: Registered Nurse Type: Nursing Progress Note Filed: 08/13/2022 7:10 PM Note Text: Nursing Progress Note Topic of Note: Incidental Juan Pack [place] [id number] Dr. Rosales text paged: . 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 Needs work excuse if can't go to work. Please call [phone]. Fany This note was completed by: Fany NicolasParkview Health Bryan Hospital ID: [id number] Author: Fany Dorado RN Service: ? Author Type: Registered Nurse Type: Nursing Progress Note Filed: 08/13/2022 7:06 PM Note Text: Nursing Progress Note Topic of Note: Incidental Juan Pack [place] [id number] Dr. Montague (urology surgical attendant) text paged: good afternoon, . Bean M023-34, ? re: work, lifting, [place] [phone]? Thanks, Fany [phone] This note was completed by: Fany NicolasParkview Health Bryan Hospital ID: [id number] Author: Fany Dorado RN Service: ? Author [...] (RECOMMENDATION): None Electronically Signed By: Fany Dorado RNNoOhio State East Hospital LIN ID: [id number] Author: Marisel Jones, ОЛЕГ Service: Nursing Author Type: Registered Nurse Type: Nursing Progress Note Filed: 08/13/2022 12:06 PM Note Text: Other: SDS Nursing Note Dr. Henley, anesthesia, paged M23-38, OR 21, [facility], [facility] patient's pre-op blood sugar is 197. Held PO diabetic meds per pre-op instructions. Thanks, Karla [phone] Urology resident paged [phone]) for updated HANDP. M23-38, OR 21 - [facility], Patient's HANDP needs updated, > 30 days. Thanks, Karla Manzanares Normal Uc HealthOPERATIVE NOon 61-99-1174RUCZPXDFR NOHNO ID: [id number] Author: Víctor Rosales MD Service: Urology Author Type: Physician Type: Operative Report Filed: 08/16/2022 9:36 AM Note Text: UROLOGY OPERATIVE REPORT LOG ID: [id number] Surgery/Procedure Date: 08/13/2022 Incision/Procedure Start Time: 3:30 PM Incision Close/Procedure End Time: 3:57 PM Surgeon(s)/Proceduralist(s) and Lime Burner(s): Surgeon(s) and Role: * Víctor Rosales MD [...] A glans traction suture was placed to offset press operator helper in exposure of the penis. Exam [...] penis Tissue PENIS BIOPSY SURGICAL PATHOLOGY Víctor Rosaels MD 08/13/2022 3:41 PM C : dorsal distal penile skin Tissue PENIS BIOPSY SURGICAL PATHOLOGY Víctor Rosales MD 08/13/2022 3:46 PM Implanted Devices: None Drains: None Complications: None I/primary surgeon/proceduralist performed the procedure with (more content not included)...NormalUniversity Hospitals Geneva Medical CenterGICAL PATHOLOGYon 17-17-2530CYLX REPORTNormalCPike Community HospitalComment on above:Order Comment: Specimen Type: TISSUE SPECIMENOrdering Facility: [facility] Address: [address] [place], [place] [address]RENATO CAMACHO, [address]Result Comment: Surgical Pathology Report Case: [id number] Authorizing Provider: Víctor Rosales MD Collected: 08/13/2022 03:33 PM Ordering Location: Admitting Received: 08/13/2022 04:30 PM Pathologist: Nazia Dunne MD Specimens: A) - PENIS BIOPSY, distal ventral penile lesion B) - PENIS BIOPSY, left dorsal glans penis C) - PENIS BIOPSY, dorsal distal penile skinPerformed By: #### S ####[facility] LABCLIA [id number] [address]ETINICAL HISTORYNormalCPike Community Hospital Comment on above:Order Comment: Specimen Type: TISSUE SPECIMENOrdering Facility: [facility] Address: [address] [place] [address] Result Comment: 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 Distal ventral penile lesion, excision: -Lichen sclerosus. -Skin with ulceration, acute and chronic inflammation and reactive changes. -Negative for malignancy. B. Left dorsal glans penis, biopsy: -Lichen sclerosus. -Negative for malignancy. C. Distal dorsal penile skin, biopsy: -Benign skin with acute and chronic inflammation. Performed By: #### S ####[facility] LABIA [id number] [address] PERFORMING LABNormal Uc HealthComment on above:Order Comment: Specimen Type: TISSUE SPECIMENOrdering Facility: [facility] Address: [address] [place], [place] [address]Result Comment: Diagnostic interpretation performed at [facility], [address] [id number] CLIA# [id number] Outside Parts Sales: Antonio Peters M.D.Performed By: #### S ####[facility] LABCLIA [id number] [place] [address] [place] OF AMERICAGROSS DESCRIPTIONA. PENIS BIOPSYNormalCPike Community HospitalComment on above:Order Comment: Specimen Type: TISSUE SPECIMENOrdering Facility: [facility] Address: [address] [place] [id number] Comment: Received in formalin labeled as distal [...] PM Gross examination performed at [facility], [facility] [place], [place] [address]Performed By: #### S ####[facility] LABIA [id number] [place] [id number] [place] CNPNon [id number] (UROLMN) JUAN BEAN ([id number]) 1965 M Date Time Provider Department 07/28/22 [...] Fully Assessed Reason for Visit: Patient Question [0705] Cmt: Patient call with Marco Antonio Michael [...] (HC*07/12/2022 Encounter Status:Closed by NEEMA ARIAS on 07/28/22NoProMedica Memorial Hospital 21-95-0169YRMZFevlpmpij (UROLBE) JUAN BEAN ([id number]) 1965 M Date Time Provider Department 07/27/22 MARCO ANTONIO MICHAEL During your visit today, we recorded the following information about you: Marco Antonio Michael APRN.CENTRAL SUPPLY SUPERVISOR 07/27/2022 1:33 PM Signed ----- Message from [...] Please advise and thank you, Atiya Michael APRN.CENTRAL SUPPLY SUPERVISOR 07/27/2022 1:41 PM Signed Called Juan Bean. [...] questions at this time. Marco Antonio Michael, SHAHZAD.CENTRAL SUPPLY SUPERVISOR Allergies As of Date: 07/27/2022 (No Known [...] Encounter Status:Closed by MARCO ANTONIO MICHAEL on 07/27/22[facility] SystemConsultation Noteon 72-34-0066Cqychthyjujo Note [id number]:127[facility] HospitalConsultation Noteon 02-08-3763Hsjcbwlecpzz Note [id number]:127[facility]riners HospitalCNOVon 39-75-9215EIBXSootlj Visit (UROLMN) JUAN BEAN ([id number]) 1965 M Date Time Provider Department 07/12/22 8:30 AM VÍCTOR ROSALES During your visit today, we recorded the following information about you: Pulse Blood pressure Weight Height 92/minute 162/81 161.5 kg 1.854 m Víctor Rosales MD 07/12/2022 9:40 AM Signed [facility] NEW PATIENT HISTORY AND [...] for internal providers or letter via the [employer] Postal Service for external providers. HISTORY CHIEF [...] Fellow Electronically signed = (more content not included)...NormalCleClermont County HospitalURINALYSIS, REFLEX MICROSCOPICon 64-89-1887Ecujisqew Ql (U)NegativeNormalNegativeCleThe Christ Hospital on above:Order Comment: Specimen Type: URINE SPECIMENOrdering Facility: [facility] Address:[address] [place] [address]Performed By: #### [id number] ####[facility] LABCLIA [id number] [place] [address] [place] AMERICAClarity (Unsp spec)ClearNormalClearCleClermont County Hospital Comment on above:Order Comment: Specimen Type: URINE SPECIMENOrdering Facility: [facility] Address:[address] [place], [place] [address] Performed By: #### [id number] ####[facility] LABCLIA [id number] [place] [address] [place] Color (U)Light YellowNormalYellowCleThe Christ Hospital on above: Order Comment: Specimen Type: URINE SPECIMENOrdering Facility: [facility] Address:[address] [place], [place] [address]Performed By: #### [id number] ####[facility] LABCLIA [id number] [place] [address] [place] AMERICAGlucose Test strip (U) [Mass/Vol]NegativeNormalTrace, NegativeUc HealthCompine rest christian mental health services on above:Order Comment: Specimen Type: URINE SPECIMENOrdering Facility: [facility] Address:[address] [place] [address]Performed By: #### [id number] ####[facility] LABCLIA [id number] [place] [address] [place] AMERICAHemoglobin Ql (U) NegativeNormalNegative, TraceMercy Health Allen Hospital on above:Order Comment: Specimen Type: URINE SPECIMENOrdering Facility: [facility] Address:[address] [place] [address]Performed By: #### [id number] ####[facility] LABCLIA [id number] [place] [address] [place] AMERICAKetones Ql (U)Negative NormalNegative, TraceMercy Health Allen Hospital on above:Order Comment: Specimen Type: URINE SPECIMENOrdering Facility: [facility] Address:[address] [place], [place] [address]Performed By: #### [id number] ####[facility] LABCLIA [id number] [place] [address] [place] [facility] – JACKSONLeukocyte esterase Test strip Ql (U)75 Doreen/uLAbnormalNegative, 25 Doreen/uLMercy Health Allen Hospital on above:Order Comment: Specimen Type: URINE SPECIMENOrdering Facility: [facility] [facility] Address:[address] [place], [place] [address]Performed By: #### [id number] ####[facility] LABCLIA [id number] [place] [address] [place] AMERICANitrite Ql (U)Negative NormalNegativeMercy Health Allen Hospital on above:Order Comment: Specimen Type: URINE SPECIMENOrdering Facility: [facility] Address:[address] [place], [place] [address]Performed By: #### [id number] ####[facility] LABCLIA [id number] [place] [address] [place] [facility]SONpH (U)5.5 [pH]Normal5.0-8.0[facility] on above:Order Comment: Specimen Type: URINE SPECIMENOrdering Facility: [facility] Address:[address] [place], [place] [address]Performed By: #### [id number] ####[facility] LABCLIA [id number] [place] [address] [place] Protein (U) [Mass/Vol]NegativeNormalTrace, NegativeUc Health Comment on above:Order Comment: Specimen Type: URINE SPECIMENOrdering Facility: [facility] Address:[address] [place], [place] [address] Performed By: #### [id number] ####[facility] LABCLIA [id number] [place] [address] [place] Specific gravity (U) [Rel density]1.600Rzqbtf0.005-1.030Brecks[facility] Va / Crille HospitalvelandComment on above:Order Comment: Specimen Type: URINE SPECIMENOrdering Facility: [facility] Address:[address] [place], [place] [address]Performed By: #### [id number] ####[facility] LABCLIA [id number] [place] [address] [place] Urobilinogen Ql (U)NegativeNormalNegativeUc HealthCompine rest christian [facility] services on above:Order Comment: Specimen Type: URINE SPECIMENOrdering Facility: [facility] Address:[address] [place], [place] [address]Performed By: #### [id number] ####[facility] LABIA [id number] [place] [address] [place] AMERICABilirubin Ql (U) NegativeNegativeSelect Medical Specialty Hospital - AkronClarity (Unsp spec)ClearClearCriverview health institute Clinic Color (U)Light YellowYellowCleNationwide Children's HospitalGlucose Test strip (U) [Mass/Vol] NegativeTrace, NegativeSelect Medical Specialty Hospital - AkronHemoglobin Ql (U)NegativeNegative, Trace [facility] AkronKetones Ql (U)NegativeNegative, TraceSelect Medical Specialty Hospital - AkronLeukocyte esterase Test strip Ql (U)75 Doreen/uLAbnormalNegative, 25 Doreen/uLBrooklyn Clinic Nitrite Ql (U)NegativeNegativeSelect Medical Specialty Hospital - AkronpH (U)5.5 [pH]5.0 - 8.0Cleparkview health montpelier hospital ClinicProtein (U) [Mass/Vol]NegativeTrace, NegativeCleveland Clinicpecific gravity (U) [Rel density]1.0181.005 - 1.030[facility] AkronUrobilinogen Ql (U) NegativeNegativeSelect Medical Specialty Hospital - AkronPathology Noteon 69-64-6561Didlzgvpq Note [id number]#1.00CD:[address] [place], [place] [address]Alanine aminotransferase [Enzymatic activity/volume] in Serum or Plasma Ordered By: Silvio Yu on 36-79-5383WTC [Catalytic activity/Vol]20 U/L 7-52[facility] HospitalAlbumin [Mass/volume] in Serum or Plasma by Bromocresol green (BCG) dye binding methoOrdered By: Silvio Yu on 14-19-1832Kczvyzx BCG dye [Mass/Vol]4.5 g/dL3.5-5.7FKindred Hospital LimaAlkaline phosphatase [Enzymatic activity/volume] in Serum or PlasmaOrdered By: Silvio Yu on 93-87-5920KIM [Catalytic activity/Vol]57 U/L34-104 [facility] HospitalAspartate aminotransferase [Enzymatic activity/volume] in Serum or PlasmaOrdered By: Silvio Yu on 06-30-2022 AST [Catalytic activity/Vol]17 U/G77-68YgyodfjbmMary Rutan Hospital Basophils Auto (Bld) [#/Vol]Ordered By: Silvio Yu on 22-10-1541Ugakohwar (Bld) [#/Vol]0.0 10*3/uL0.0-0.2FKindred Hospital LimaBasophils/100 WBC Auto (Bld)Ordered By: Silvio Yu on 45-16-3407Wccnsgktt/100 WBC (Bld) 0.2 %.[facility] HospitalBilirubin.total [Mass/volume] in Serum or PlasmaOrdered By: Silvio Yu 71-12-4246Imwpwwdtt [Mass/Vol]0.7 mg/dL 0.3-1.0[facility] HospitalCalcium [Mass/volume] in Serum or Plasma Ordered By: Silvio Yu 63-74-2405Ghymhrh [Mass/Vol]9.7 mg/dL8.6-10.3 [facility] HospitalCarbon dioxide, total [Moles/volume] in Serum or PlasmaOrdered By: Silvio Yu on 10-53-8341VW2 [Moles/Vol]29.5 mmol/L 21.0-31.0[facility] HospitalChloride [Moles/volume] in Serum or PlasmaOrdered By: Silvio Yu 22-69-0648Ygutuynn [Moles/Vol]98 mmol/L 98-107[facility] HospitalCreatinine [Mass/volume] in Serum or PlasmaOrdered By: Silvio Yu on 99-06-2644Zphzbcigxi [Mass/Vol]0.85 mg/dL 0.70-1.30[facility] HospitalEosinophils Auto (Bld) [#/Vol]Ordered By: Silvio Yu on 06-14-8499Ehnqbdmixxg (Bld) [#/Vol]0.1 10*3/uL0.0-0.45 [facility] HospitalEosinophils/100 WBC Auto (Bld)Ordered By: Silvio Yu on 21-18-7536Bryfqsubmdj/100 WBC (Bld)1.3 %.[facility] HospitalErythrocyte distribution width Auto (RBC) [Ratio]Ordered By: Silvio Yu on 97-68-9396Bshdvafrgej distribution width (RBC) [Ratio]13.8 %12.0-14.8[facility] HospitalGlobulin Calc (S) [Mass/Vol]Ordered By: Silvio Yu on 43-24-7347Ofjcnffl (S) [Mass/Vol]3.1 g/dLMary Rutan HospitalGlucose [Mass/volume] in Serum or PlasmaOrdered By: Silvio Yu on 44-08-4619Jxrcmca [Mass/Vol]154 mg/jF13-709FxxwzkmxhMary Rutan HospitalComment on above:ADA recommended reference rangeRandom Glucose Reference Range is dependent on time and content of last meal. Glucose of more than 200 mg/dL in a nonstressed, ambulatory subject supports the diagnosisof Diabetes Mellitus.Hematocrit Auto (Bld) [Volume fraction]Ordered By: Silvio Yu on 41-47-2810Fmljinbmck (Bld) [Volume fraction]43.8 %38.8-50.0 [facility] HospitalHemoglobin [Mass/volume] in BloodOrdered By: Silvio Yu on 99-81-2991Sucwqwqlrz (Bld) [Mass/Vol]14.7 g/dL13.0-17.0 [facility] HospitalLeukocytes [#/volume] corrected for nucleated erythrocytes in Blood by Automated counOrdered By: Silvio Yu on 34-63-5659PUB corrected for nucl RBC Auto (Bld) [#/Vol]8.5 10*3/uL4.1-10.5 [facility] HospitalLymphocytes Auto (Bld) [#/Vol]Ordered By: Silvio Yu on 87-78-4762Xnzohydzwsz (Bld) [#/Vol]1.3 10*3/uL1.00-4.8 [facility] HospitalLymphocytes/100 WBC Auto (Bld)Ordered By: Silvio Yu on 80-10-2641Qejiucqgthf/100 WBC (Bld)15.0 %.[facility] Auto (RBC) [Entitic mass]Ordered By: Silvio Yu on 48-19-2007GDO (RBC) [Entitic mass]30.4 pg27.5-35.2FKindred Hospital LimaMCHC Auto (RBC) [Mass/Vol]Ordered By: Silvio Yu on 65-38-0771IGBN (RBC) [Mass/Vol]33.6 g/dL32.5-35.6FKindred Hospital LimaMCV Auto (RBC) [Entitic vol]Ordered By: Silvio Yu on 22-73-1313KMM (RBC) [Entitic vol]90.6 fL83.5-101[facility] HospitalMonocytes Auto (Bld) [#/Vol]Ordered By: Silvio Yu on 67-26-3110Egnogsgoa (Bld) [#/Vol]0.7 10*3/uL0.0-0.8[facility] HospitalMonocytes/100 WBC Auto (Bld)Ordered By: Silvio Yu on 99-24-4943Xtpewopdl/100 WBC (Bld)8.8 %. [facility] HospitalNeutrophils Auto (Bld) [#/Vol]Ordered By: Silvio Yu on 71-99-6726Ortrpvozqgt (Bld) [#/Vol]6.3 10*3/uL1.8-7.7 [facility] HospitalNeutrophils/100 WBC Auto (Bld)Ordered By: Silvio Yu on 74-24-3556Pkqjcrpghny/100 WBC (Bld)74.7 %.[facility] HospitalNo Panel InformationOrdered By: Silvio Yu on 43-32-5151Nswgsepwp GFR (CKD-EPI)> 60.0 mL/MinMary Rutan Hospital Pharmacy Creatinine Clearance (Ncgy172.44[facility] Nucleated erythrocytes [Presence] in Blood by Automated countOrdered By: Silvio Yu on 39-03-5739Yymoevzqz RBC Auto Ql (Bld)0.1 /100{WBC}0-0.5FKindred Hospital LimaPlatelet mean volume Auto (Bld) [Entitic vol]Ordered By: Silvio Yu on 01-67-3581Mfuwxddv mean volume (Bld) [Entitic vol]8.3 fL 6.6-10.1FKindred Hospital LimaPlatelets Auto (Bld) [#/Vol]Ordered By: Silvio Yu on 44-04-8583Euicjkpxe (Bld) [#/Vol]173 10*3/kC517-870 [facility] HospitalPotassium [Moles/volume] in Serum or Plasma Ordered By: Silvio Yu on 51-39-9560Knrnphmlo [Moles/Vol]4.1 mmol/L 3.5-5.1FKindred Hospital LimaProtein [Mass/volume] in Serum or Plasma Ordered By: Silvio Yu on 76-14-2731Vuqcxqo [Mass/Vol]7.6 g/dL6.4-8.9 [facility] HospitalRBC Auto (Bld) [#/Vol]Ordered By: Silvio Yu on 37-77-1517WNN (Bld) [#/Vol]4.83 10*6/uL3.90-5.60Nationwide Children's Hospitalerum or plasma albumin/globulin mass ratioOrdered By: Silvio Yu on 53-35-5961Bmwfhdt/Globulin [Mass ratio]1.5 {ratio}N[facility]wide Children's Hospitalerum or plasma anion gap determinationOrdered By: Silvio Yu on 91-92-3843Cramt gap [Moles/Vol]12.6 mmol/L6.0-15.0N[facility] Children's Hospitalerum or plasma carcinoembryonic antigen measurement (mass/volume)Ordered By: Silvio Yu on 85-51-4877Dcohwntervxzmoxh Ag [Mass/Vol]1.7 ng/mL0.0-3.0Nationwide Children's Hospitalodium [Moles/volume] in Serum or PlasmaOrdered By: Silvio Yu on 35-96-0295Cntwrv [Moles/Vol] 136 mmol/L871-611SssymenrxMary Rutan HospitalUrea nitrogen [Mass/volume] in Serum or PlasmaOrdered By: Silvio Yu on 09-05-2858Vsgw nitrogen [Mass/Vol]20 mg/dL7-25[facility] HospitalWBC Auto (Bld) [#/Vol] Ordered By: Silvio Yu on 63-86-6498MLF (Bld) [#/Vol]8.5 10*3/uL4.1-10.5 [facility] HospitalPathology Noteon 17-97-3438Pmopcdews Note [id number]#1.00CD:[address] [place], [place] [address]Pathology Noteon 20-66-9440Wuvsviahb Note [id number]#1.00CD:[address] [place], [place] [address]Physician Referralon 24-02-4515Mvfqzvsjv Referral [id number]#1.00CD:[address] [place], [place] [address]Pathology Noteon 16-60-2408Cnytidcum Note [id number]#1.00CD:[address] [place], [place] [address]URGICAL PATHOLOGY REFERENCE LAB CONSULTon 17-90-4382VHVS REPORTNormal [facility] on above:Order Comment: Specimen Type: SLIDEOrdering Facility: [facility] Address: [address] [place] [id number] Comment: Surgical Pathology Report Case: [id number] Authorizing Provider: Ritesh Calderon MD Collected: 06/23/2022 10:07 AM Ordering Location: [facility] Main Received: 06/23/2022 10:07 AM Pathologist: Shubham Pritchett MD, PhD Specimen: SLIDE(S), 3 SLIDES ([id number])Performed By: #### [id number] ####[facility] LABCLIA [id number] [address] STATES OF AMERICACLINICAL HISTORYCONSULT REQUESTEDNoCleveland Clinic Marymount Hospital on above:Order Comment: Specimen Type: SLIDEOrdering Facility: [facility] Address: [address] [place], [place] [address]Performed By: #### [id number] ####[facility] LABIA [id number] [address]ETDIAGNOSIS COMMENTCleveland Clinic Marymount Hospital on above:Order Comment: Specimen Type: SLIDEOrdering Facility: [facility] Address: [address] [place], [place] [address]Result Comment: Many thanks for sending in consultation this excision specimen from the penis of a 57-year-old male. Histologic sections demonstrate a keratinocytic neoplasm composed of full- thickness keratinocyte dysplasia with invasive irregular islands of atypical keratinocytes. These islands demonstrate marked cellular atypia and mitotic activity. Enclosed immunohistochemical stains are reviewed at the [facility]. A Ki- 67 stain demonstrates an increased proliferative index amongst the lesional cells. A stain for p16 is diffusely positivein the dysplastic areas. These findings support the above diagnosis. Overall, I agree with Dr. 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 The squamous cell carcinoma involves the excision margins.Performed By: #### [id number] ####[facility] LABCLIA [id number] [address] STATES OF [facility] JACKSONFINAL DIAGNOSISNoCleveland Clinic [facility] on above:Order Comment: Specimen Type: SLIDEOrdering Facility: [facility] Address: [address] [place], [place] [address] Result Comment: A. Skin, foreskin, circumcision ( [id number], 06/01/2022) : -Invasive moderately differentiated squamous cell carcinoma, see comment. AF/CK 06/23/2022 Performed By: #### [id number] ####[facility] LABCLIA [id number] [address] OF [facility] FINAL PERFORMING LABNormJ.W. [facility] on above:Order Comment: Specimen Type: SLIDEOrdering Facility: [facility] Address: [address] [place] [id number] Comment: Diagnostic interpretation performed at [facility], [address] [place] [address] CLIA# [id number] [employer] Sales: Antonio Peters M.D.Performed By: #### [id number] ####[facility] LABCLIA [id number] [address]Consultation Noteon 06-22-2022 Consultation [id number]#1.00CD:127[facility] Hospitalcreenson 01-81-5883Forokog [id number]#1.00CD:[address] [place], [place] [address]Patient Educationon 60-71-1607Fmtoesy EducationUrology Balanitis Balanitis is swelling and irritation [...] and shower gels thathave fragrance. ? Take orfh-lke-vcpmrmm and prescription medicines only as told by [...] 07/10/2009 Document Revised: 02/03/2018 (more content not included)...[facility] HospitalUrology Office/Clinic Noteon 39-79-7443Hrcekds Office/Clinic NoteChief Complaint Pt is here for [...] 08/21/[address] [place] [id number]- Additional Instructions: Patient Education Ramona Christiansen , [...] 2022-05-10: TPV50 influenza virus vaccine, inactivated 12/06/2016 RecordedCincinnati Shriners HospitalComment on above:Result Comment: Electronically Signed By: Timmy SANTANA MD\.br\Date and Time Signed: 06/21/22 09:30 EDT\.br\Electronically Co-Signed By: Ramona Yost MA\.br\Date and Time Co-Signed: 06/21/22 09:11 EDT Pathology Noteon 53-95-0533Rrjbeoddm Note [id number]#1.00CD:[address] [place], [place] [address]Operative Reporton 25-54-4962Dytwxxohm Report [id number]#1.00CD:[address] [place], [place] [address]Consultation Noteon 95-93-9005Pzxtyjxfqqum Note [id number]#1.00CD:[address] [place], [place] [address]Consultation [id number]#1.00CD:[address] [place], [place] [address]Glucose Glucometer (BldC) [Mass/Vol]Ordered By: Timmy Santana on 85-74-0792Fvturae [Mass/Vol]176 mg/dLMary Rutan HospitalComment on above:Random Glucose Reference Range is dependent on time and content of last meal. Glucose of more than 200 mg/dL in a nonstressed, ambulatory subject supports the diagnosis of Diabetes Mellitus.Lab Reportson 49-81-9888Dkh [id number]#1.00CD:127[facility] HospitalRAD - MISCon 14-52-9252LKP - MISC [id number]#1.00CD:127[facility] HospitalalFisher [facility] CenterOffice Visit (Cardiology)on 60-32-7327Prjmih-up visitDiagnoses/Problems Assessed Hyperlipidemia (272.4) (E78.5) Hypertension (401.9) (I10) Diabetes (250.00) (E11.9) Right bundle branch block (RBBB) on electrocardiogram (ECG) (426.4) (I45.10) Preoperative cardiovascular examination (V72.81) (Z01.810) Morbid obesity with BMI of 45.0-49.9, adult (278.01,V85.42) (E66.01,Z68.42) Former smoker (V15.82) (Z87.891) quit 29+ years ago Orders Hypertension, Preoperative cardiovascular examination, Right bundle branch block (RBBB) on electrocardiogram (ECG) IO EKG Electrocardiogram- 12 Lead; Status:Complete; Done: 06Yhd7532 Morbid obesity with BMI of 45.0-49.9, adult Healthy Weight Tips; Status:Complete - Retrospective Authorization; Done: 20May2022 Some eating tips that can help you lose weight.; Status:Complete - Retrospective Authorization; Done: 20May2022 SocHx: Former smoker Tobacco Use Screening; Status:Complete; Done: 58Olv4244 Patient Instructions Please bring all medicines, vitamins, [...] 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 and [...] Bedtime as needed Vitamin D3 1.25 MG (70456 UT) Oral Capsuleone tablet weekly Allergies Medication [...] Vital Signs Recorded: 20May2022 11:13AMRecorded: 20May2022 11:12AM Dgkbsjrv897, LUE, Epzxrmg316, RUE, Sitting Zpgbgpnms35, LUE, Skpccdj23, RUE, Sitting Heart Ra (more content not included)...NormalUH TouchworksTobacco Screening.on 35-46-5852Tcpff depression screening assessmentNoWalla Walla General Hospital [employer] [address] DO Work Phone: Fall risk assessmentc) Not medically indicatedWalla Walla General Hospital [employer] 250 DO Work Phone: Tobacco use status CPHSb) NoMNorthern State Hospital [employer] 250 DO Work Phone: Activated partial thromboplastin time (aPTT) in platelet poor plasma by coagulation aOrdered By: Timmy Santana on 91-59-7815bPOA Coag (PPP) [Time]31.0 s25.1-36.5FKindred Hospital LimaBasophils Auto (Bld) [#/Vol]Ordered By: Timmy Santana on 40-55-0161Rodapanyr (Bld) [#/Vol]0.0 10*3/uL0.0-0.2FKindred Hospital LimaBasophils/100 WBC Auto (Bld) Ordered By: Timmy Santana on 95-80-6664Mqocreaav/100 WBC (Bld)0.6 %.[facility] HospitalCalcium [Mass/volume] in Serum or PlasmaOrdered By: Timmy Santana on 51-91-4822Phrdhvz [Mass/Vol]9.5 mg/dL8.6-10.3FKindred Hospital LimaCarbon dioxide, total [Moles/volume] in Serum or PlasmaOrdered By: Timmy Santana on 46-80-3521AN2 [Moles/Vol]27.9 mmol/L21.0-31.0[facility] HospitalChloride [Moles/volume] in Serum or PlasmaOrdered By: Timmy Santana on 89-03-2205Dfmmhfrl [Moles/Vol]98 mmol/V47-249DvslsiasmMary Rutan HospitalCreatinine [Mass/volume] in Serum or PlasmaOrdered By: Timmy Santana on 85-29-1034Hmizxblhta [Mass/Vol]0.75 mg/dL0.70-1.30[facility] HospitalEosinophils Auto (Bld) [#/Vol]Ordered By: Timmy Santana on 05-17-2022 Eosinophils (Bld) [#/Vol]0.1 10*3/uL0.0-0.45[facility] Eosinophils/100 WBC Auto (Bld)Ordered By: Timmy Santana on 05-17-2022 Eosinophils/100 WBC (Bld)1.2 %.[facility] HospitalErythrocyte distribution width Auto (RBC) [Ratio]Ordered By: Timmy Santana on 05-17-2022 Erythrocyte distribution width (RBC) [Ratio]13.8 %12.0-14.8[facility] HospitalGlucose [Mass/volume] in Serum or PlasmaOrdered By: Timmy Santana on 06-41-5805Lbtqest [Mass/Vol]172 mg/zR64-779DwvuczwopMary Rutan Hospital Comment on above:ADA recommended reference rangeRandom Glucose Reference Range is dependent on time and content of last meal. Glucose of more than 200 mg/dL in a nonstressed, ambulatory subject supports the diagnosisof Diabetes Mellitus. Hematocrit Auto (Bld) [Volume fraction]Ordered By: Timmy Santana on 05-17-2022 Hematocrit (Bld) [Volume fraction]39.5 %38.8-50.0[facility] HospitalHemoglobin [Mass/volume] in BloodOrdered By: Timmy Santana on 05-17-2022 Hemoglobin (Bld) [Mass/Vol]13.7 g/dL13.0-17.0[facility] Laboratory - Chemistry and Chemistry - challengeOrdered By: Timmy Santana on 26-96-6760MZS/1.73 sq M.predicted MDRD (S/P/Bld) [Vol rate/Area]mL/min/{1.73_m2} [facility] HospitalLaboratory - CoagulationOrdered By: Timmy Santana on 24-65-2587MH Coag (PPP) [Time]11.9 s9.0-12.9[facility] HospitalLeukocytes [#/volume] corrected for nucleated erythrocytes in Blood by Automated counOrdered By: Timmy Santana on 54-95-4697GFX corrected for nucl RBC Auto (Bld) [#/Vol]7.9 10*3/uL4.1-10.5FKindred Hospital Lima Lymphocytes Auto (Bld) [#/Vol]Ordered By: Timmy Santana on 53-81-9703Pwulqnwoual (Bld) [#/Vol]1.1 10*3/uL1.00-4.8[facility] HospitalLymphocytes/100 WBC Auto (Bld)Ordered By: Timmy Santana on 82-13-4636Sephdbfkahb/100 WBC (Bld) 14.3 %.[facility] Medical CenterH Auto (RBC) [Entitic mass]Ordered By: Timmy Santana on 59-23-6887LSM (RBC) [Entitic mass]30.8 pg27.5-35.2FKindred Hospital LimaMCHC Auto (RBC) [Mass/Vol]Ordered By: Timmy Santana on 76-74-7910UGJE (RBC) [Mass/Vol]34.5 g/dL32.5-35.6FKindred Hospital LimaMCV Auto (RBC) [Entitic vol]Ordered By: Timmy Santana on 09-35-9945XDY (RBC) [Entitic vol]89.2 fL83.5-101[facility] HospitalMonocytes Auto (Bld) [#/Vol]Ordered By: Timmy Santana on 00-42-2805Xttqbnniw (Bld) [#/Vol] 0.6 10*3/uL0.0-0.8[facility] HospitalMonocytes/100 WBC Auto (Bld) Ordered By: Timmy Santana on 49-48-4088Feovojfij/100 WBC (Bld)7.5 %.[facility] HospitalNeutrophils Auto (Bld) [#/Vol]Ordered By: Timmy Santana on 48-79-6404Fkrehuxppde (Bld) [#/Vol]6.1 10*3/uL1.8-7.7FKindred Hospital LimaNeutrophils/100 WBC Auto (Bld)Ordered By: Timmy Santana on 05-17-2022 Neutrophils/100 WBC (Bld)76.4 %.[facility] HospitalNo Panel InformationOrdered By: Timmy Santana on 41-27-3449Twucovdh Creatinine Clearance (ChemN/AFKindred Hospital LimaNucleated erythrocytes [Presence] in Blood by Automated countOrdered By: Timmy Santana on 43-19-6920Ktqtazpuh RBC Auto Ql (Bld)0.0 /100{WBC}0-0.5FKindred Hospital LimaPlatelet mean volume Auto (Bld) [Entitic vol]Ordered By: Timmy Santana on 07-08-0223Iaqcyryp mean volume (Bld) [Entitic vol]8.2 fL6.6-10.1FKindred Hospital Lima Platelet poor plasma international normalized ratio (INR) by coagulation assay (relatOrdered By: Timmy Santana on 99-73-6241JHJ Coag (PPP) [Relative time]1.0 {INR}[facility] HospitalComment on above:INR Therapeutic Range A) Pre- [...] Auto (Bld) [#/Vol]Ordered By: Timmy Santana on 88-56-3387Ogjthnvkg (Bld) [#/Vol] 174 10*3/xR564-823SzejjlleoMary Rutan HospitalPotassium [Moles/volume] in Serum or PlasmaOrdered By: Timmy Santana on 87-61-2714Fbstalshf [Moles/Vol]3.9 mmol/L3.5-5.1FKindred Hospital LimaRBC Auto (Bld) [#/Vol]Ordered By: Timmy Santana on 29-49-2272KUI (Bld) [#/Vol]4.43 10*6/uL3.90-5.60[facility] Children's Hospitalerum or plasma anion gap determinationOrdered By: Timmy Santana on 50-49-8121Airwg gap [Moles/Vol]13.0 mmol/L6.0-15.0N[facility] Children's Hospitalodium [Moles/volume] in Serum or PlasmaOrdered By: Timmy Santana on 90-93-5782Kwzhma [Moles/Vol]135 mmol/Z507-519KpluqntafMary Rutan HospitalUrea nitrogen [Mass/volume] in Serum or PlasmaOrdered By: Timmy Santana on 70-45-2235Jime nitrogen [Mass/Vol]16 mg/dL7-25[facility] HospitalWBC Auto (Bld) [#/Vol]Ordered By: Timmy Santana on 87-09-3170HHQ (Bld) [#/Vol]7.9 10*3/uL4.1-10.5FKindred Hospital LimaFormson 05-12-2022 [id number]#1.00CD:[address] [place], [place] [address]Physician Referralon 56-18-3398Hhlryzpgu Referral [id number]#1.00CD:[address] [place], [place] [address]creenson 79-25-8956Yzfnzxm [id number]#1.00CD:[address] [place], [place] [address]Ambulatory Visit Summaryon 78-34-0312Zrjbwerboy Visit Summary JUAN BEAN :1965 Visit Date:05/10/2022 Ambulatory Visit Instructions Your Diagnosis Phimosis Balanoposthitis Hypogonadism male Tests Performed Urnls Dip Stick Auto w/o Microscopy POC 11037 Your Care Team Attending Physician - RHONDA [...] with RHONDA PROCTOR, ROSCOE Garcia When: Where: [facility] [place] [phone]- Medications What How Much When Instructions Unchanged [...] Urnls Dip Stick Auto w/o Microscopy POC 37350 (05/10/2022) Bilirubin Urine Dipstick - Negative Blood Urine Dipstick - Trace-intact Glucose Urine Dipstick - Negative Ketones Urine Dipstick - Negative Leukocytes Urine Dipstick - Negative Nitrite Urine Dipstick - Negative Protein Urine Dipstick - Negative Specific [place] Urine Dipstick - 1.025 Urine Appearance Urine [...] or foreskin. ? Itc (more content not included)...[facility] Educationon [id number] EducationUrology Balanitis Balanitis is swelling and irritation [...] and shower gels thathave fragrance. ? Take cqow-hwd-pcobrze and prescription medicines only as told by [...] 07/10/2009 Document Revised: 02/03/2018 (more content not included)...[facility] Vital Signs Date TimeVital SignValuePerforming [id number] 15:20-0400 Diastolic blood [id number] mm[Hg]Carolyn Hemmer CUFFING MACHINE OPERATOR-C Work Phone: [phone]10-09-2025 15:20-0400 Heart rate82 /minKaren Hemmer CUFFING MACHINE OPERATOR-C Work Phone: [phone] [place], [place] 3216910-09-2025 15:20-0400 SaO2% (BldA) [Mass fraction]98 %Carolyn Hemmer CUFFING MACHINE OPERATOR-C Work Phone: [phone] [place], [place] 3216910-09-2025 15:20-0400 Systolic blood [id number] mm[Hg]Carolyn Hemmer CUFFING MACHINE OPERATOR-C Work Phone: 1(948)[address]10-02-2025 14:32-0400 Diastolic blood lvosgugh836 mm[Hg]Carolyn Hemmer CUFFING MACHINE OPERATOR-C Work Phone: 1(725)[address] [place], [place] 3216910-02-2025 14:32-0400 Heart rate89 /minKaren Hemmer CUFFING MACHINE OPERATOR-C Work Phone: 1(949)[address] [place], [place] 3216910-02-2025 14:32-0400 SaO2% (BldA) [Mass fraction]92 %Carolyn Hemmer CUFFING MACHINE OPERATOR-C Work Phone: 1(650)[address] [place], [place] 3216910-02-2025 14:32-0400 Systolic blood jpixpvcp729 mm[Hg]Carolyn Hemmer CUFFING MACHINE OPERATOR-C Work Phone: 1(874)[address] [place], [place] 3216909-08-2025 15:10-0400 Body .42 cmKaren Hemmer CUFFING MACHINE OPERATOR-C Work Phone: 1(490)[address]09-08-2025 15:10-0400 Diastolic blood hpwahorz83 mm[Hg]Carolyn Hemmer CUFFING MACHINE OPERATOR-C Work Phone: 1(104)[facility] [place], [place] 3330809-08-2025 15:10-0400 Heart rate81 /minKaren Hemmer CUFFING MACHINE OPERATOR-C Work Phone: 1(921)[address] [place], [place] 3216909-08-2025 15:10-0400 SaO2% (BldA) [Mass fraction]93 %Carolyn Hemmer CUFFING MACHINE OPERATOR-C Work Phone: 1(419)[address] [place], [place] 3216909-08-2025 15:10-0400 Systolic blood yzpzryno791 mm[Hg]Carolyn Hemmer CUFFING MACHINE OPERATOR-C Work Phone: 1(736)[address] [place], [place] 3216908-25-2025 16:54-0400 Diastolic blood gyiyfctp88 mm[Hg]Carolyn Hemmer PA Work Phone: 1(831)[address] [place], [place] 3596208-25-2025 16:54-0400Systolic blood ahunrarh324 mm[Hg]Carolyn Hemmer PA Work Phone: 1(114)[facility] [place], [place] [address]Uqikvodedx99-00-3995 16:30-0400Body jjsedf624.4 cmKaren Hemmer PA Work Phone: 1(204)[address] [place], [place] 3596208-25-2025 16:30-0400Body mass index (BMI) [Ratio]54.22 kg/g4Gfdzl Hemmer PA Work Phone: 1(752)[address] [place], [place] 3596208-25-2025 16:30-0400Body gfcett241.43 kgKaren Hemmer PA Work Phone: 1(484)[address] [place], [place] 3596208-25-2025 16:30-0400Heart rate82 /min Carolyn Hemmer PA Work Phone: 1(208)[facility] [place], [place] [address]Aqsdsnurfg61-48-0690 16:30-0400Respiratory rate16 /minKaren Hemmer PA Work Phone: 1(286)[facility]-[address] [place], [place] [address]Oipbxebljo04-12-5789 16:30-4146GtY9% (BldA) [Mass fraction]96 %Carolyn Hemmer PA Work Phone: 1(024)[address] [place], [place] 3596206-25-2025 16:36-0400Body baigrg227.4 cmKaren Hemmer PA Work Phone: [facility] ServicesNjahnmxtcf83-15-3207 16:36-0400Body mass index (BMI) [Ratio]53.3 kg/e1Wkmwi Hemmer PA Work Phone: [facility] ServicesFgnesdtohu97-37-2550 16:36-0400Body hzhwdo070.25 kgKaren Hemmer PA Work Phone: [facility] ServicesSvxgvyizgu15-50-8066 16:36-0400Diastolic blood jutogppl56 mm[Hg]Carolyn Hemmer PA Work Phone: [facility] ServicesZegpwypzdw10-52-6242 16:36-0400Heart rate82 /min Carolyn Hemmer PA Work Phone: [facility] ServicesWwfuqffors33-20-3220 16:36-7560JhF9% (BldA) [Mass fraction]95 %Carolyn Hemmer PA Work Phone: [facility] ServicesRjofyvkuhc93-75-3727 16:36-0400Systolic blood wjcukuhi314 mm[Hg]Carolyn Hemmer PA Work Phone: [facility] ServicesVaucdslzpg91-57-8037 16:58-0400Body iaefbl552.4 cmKaren Hemmer PA Work Phone: [facility] ServicesGmmeuiubee53-15-8856 16:58-0400Body mass index (BMI) [Ratio]54.41 kg/h3Pizzp Hemmer PA Work Phone: [facility] ServicesZmondzrmbi47-44-4209 16:58-0400Body .06 kgKaren Hemmer PA Work Phone: [facility] ServicesYwrygoltgn65-84-4235 16:58-0400Diastolic blood hiuxxfkp50 mm[Hg]Carolyn Hemmer PA Work Phone: [facility] ServicesCpgqcklwfx85-70-6581 16:58-0400Heart rate83 /min Carolyn Hemmer PA Work Phone: [facility] ServicesUfywhilurc70-42-1705 16:58-0400Respiratory rate16 /minKaren Hemmer PA Work Phone: [facility] HealthcareUbhzrbtoyb70-16-0014 16:58-4107CuN4% (BldA) [Mass fraction]98 %Carolyn Hemmer PA Work Phone: no[facility] HealthcareCppfhseulc39-33-5342 16:58-0400Systolic blood caoibnhu281 mm[Hg]Carolyn Hemmer PA Work Phone: no[facility] HealthcareEszsuqsfxd00-52-3294 17:23-0500Diastolic blood otnuspvd44 mm[Hg]Carolyn Hemmer PA Work Phone: no[facility] HealthcareCghnonhltu26-63-0400 17:23-0500Systolic blood snrsqvta080 mm[Hg]Carolyn Hemmer PA Work Phone: no[facility] HealthcareZinuflacin69-40-5321 16:45-0500Body gdyhoy460.4 cmKaren Hemmer PA Work Phone: no[facility] HealthcareSgeoutlmmx28-81-5221 16:45-0500Body mass index (BMI) [Ratio]52.93 kg/f4Lhiqm Hemmer PA Work Phone: no[facility] HealthcareDlaasnxhqe15-22-5088 16:45-0500Body zoghtt586.98 kgKaren Hemmer PA Work Phone: no[facility] HealthcareRztaazrzeh92-91-5990 16:45-0500Heart rate71 /min Carolyn Hemmer PA Work Phone: no[facility] HealthcareOfjlfkkqcg12-76-0037 16:45-0500Respiratory rate18 /minKaren Hemmer PA Work Phone: no[facility] HealthcareQacyyelohf00-57-8966 16:45-9595IoI1% (BldA) [Mass fraction]98 %Carolyn Hemmer PA Work Phone: no[facility] HealthcarePpmsxtltjr94-25-8447 14:33-0500Diastolic blood lsotdjvy14 mm[Hg]Carolyn Hemmer PA Work Phone: no[facility] HealthcareDaoogpmuqr37-38-4695 14:33-0500Systolic blood xdtjsnoi186 mm[Hg]Carolyn Hemmer PA Work Phone: [facility] ServicesZzdvjtmikw05-39-3766 14:08-0500Body rjnwuq801.4 cmKaren Hemmer PA Work Phone: [facility] ServicesFbretckhhn16-00-1536 14:08-0500Body mass index (BMI) [Ratio]52.59 kg/f1Qzbmf Hemmer PA Work Phone: [facility] ServicesGzlrvtfepf78-10-3874 14:08-0500Body temperature 98.6 [degF]Carolyn Hemmer PA Work Phone: [facility] ServicesEpjauauzzc33-72-2386 14:08-0500Body vreizy827.8 kgKaren Hemmer PA Work Phone: [facility] ServicesNwdoznufis93-76-8889 14:08-0500Heart rate91 /min Carolyn Hemmer PA Work Phone: [facility] ServicesRkaqwhauwf89-10-5501 14:08-0500Respiratory rate16 /minKaren Hemmer PA Work Phone: [facility] ServicesBvashycrap46-04-9847 14:08-2757HxU4% (BldA) [Mass fraction]96 %Carolyn Hemmer PA Work Phone: [facility] ServicesVixjqgfrre11-09-1605 16:41-0500Body .4 cmKaren Hemmer PA Work Phone: [facility] ServicesFnnchlxbou93-57-8928 16:41-0500Body mass index (BMI) [Ratio]51.16 kg/t8Kgtnc Hemmer PA Work Phone: [facility] ServicesJimovrmsga76-68-3223 16:41-0500Body .91 kgKaren Hemmer PA Work Phone: [facility] ServicesYihkkamuek45-94-6057 16:41-0500Diastolic blood elmoumfy79 mm[Hg]Carolyn Hemmer PA Work Phone: [facility] ServicesNotvumvsld35-48-5377 16:41-0500Heart rate89 /min Carolyn Hemmer PA Work Phone: [facility] ServicesZwqruqhsri15-89-1203 16:41-0500Respiratory rate16 /minKaren Hemmer PA Work Phone: [facility] ServicesZnqxylliqv04-13-0569 16:41-0689MdY0% (BldA) [Mass fraction]96 %Carolyn Hemmer PA Work Phone: [facility] ServicesYqqdiooidn01-18-3392 16:41-0500Systolic blood wvmilfur720 mm[Hg]Carolyn Conwaymer PA Work Phone: [facility] ServicesPnopznwklg79-42-0894 14:12-0500Body skmpqe217.42 cmMichael Frings DO Work Phone: 1(456)[address]01-27-2025 14:12-0500 Body mass index (BMI) [Ratio]50.1 kg/v8Hywtanb Frings DO Work Phone: 1(366)[address] [place], [place] 5048201-27-2025 14:12-0500 Body xnqbme093.36 kgMichael Frings DO Work Phone: 1(025)[address] [place], [place] 5048201-27-2025 08:05-0500 Body jtkgaxnvedn79.7 [degF]Calvin Hannonngs DO Work Phone: 1(952)[address] [place], [place] 5048201-27-2025 08:05-0500 Heart rate98 /minMichael Frings DO Work Phone: 1(175)[address] [place], [place] 5048201-27-2025 08:05-0500 Respiratory rate18 /minMichael Frings DO Work Phone: 1(545)[address] [place], [place] 5048201-13-2025 15:31-0500 Body cadxei705.4 cmCarolyn Hemmer PA Work Phone: [facility] ServicesWzauatezot55-37-4016 15:31-0500Body mass index (BMI) [Ratio]50.95 kg/d4Vjwnx Hemmer PA Work Phone: [facility] ServicesJrepvwwfil55-00-5342 15:31-0500Body riiopf670.18 kgJesusbritney Hemmer PA Work Phone: [facility] ServicesRpwsyjpzoj33-18-2939 15:31-0500Diastolic blood cipfmhss34 mm[Hg]Carolyn Conwaymer PA Work Phone: [facility] ServicesIurafteuwq13-92-5148 15:31-0500Heart rate96 /min Carolyn Conwaymer PA Work Phone: [facility] ServicesAuryavhixp17-34-3126 15:31-0500Respiratory rate18 /minCarolyn Conwaymer PA Work Phone: [facility] ServicesFzckbcehjk13-67-6143 15:31-7313EgX8% (BldA) [Mass fraction]97 %Carolyn Conwaymer PA Work Phone: [facility] ServicesVrtfatkbwh28-55-5997 15:31-0500Systolic blood mm[Hg]Carolyn Conwaymer PA Work Phone: [facility] ServicesRlpsxoeisk45-40-9443 08:29-0500Diastolic blood mm[Hg]Calvin Hannonngs DO Work Phone: 1(015)145-[address] [place], [place] 7363801-13-2025 08:29-0500 Systolic blood mm[Hg]Calvin Riddhings DO Work Phone: 1(309)787-[address] [place], [place] 7363801-08-2025 11:16-0500 Diastolic blood zoqzhxjp53 mm[Hg]Calvin Riddhings DO Work Phone: 1(853)132-[address] [place], [place] 7363801-08-2025 11:16-0500 Heart rate98 /minMichael Frings DO Work Phone: 1(634)075-[address] [place], [place] 7363801-08-2025 11:16-0500 Respiratory rate18 /minMichael Frings DO Work Phone: 1(017)561-[address] [place], [place] 7363801-08-2025 11:16-0500 SaO2% (BldA) [Mass fraction]95 %Calvin Hannonngs DO Work Phone: 1(456)948-[address] [place], [place] 7363801-08-2025 11:16-0500 Systolic blood hqvgvogk277 mm[Hg]Calvin Hannonngs DO Work Phone: 1(955)198-[address] [place], [place] 7363801-08-2025 08:00-0500 Body uruqfqcvzoe79.6 [degF]Calvin Osunas DO Work Phone: [facility]01-08-2025 06:50-0500 Body crnjoc581.8 kgMicsanti Frings DO Work Phone: [facility]01-05-2025 16:00-0500 Inhaled oxygen flow rate2 L/minMichaepancho Frings DO Work Phone: 1(538)423-[address] [place], [place] 7363801-03-2025 15:21-0500 Body cvnaqg368.42 cmMichael Frings DO Work Phone: [address] [place], [place] 4410210-23-2024 16:51-0400 Body ajgnwb159.4 cmJesusen Hemmer PA Work Phone: [facility] ServicesPiplenmnrj29-81-0595 16:51-0400Body mass index (BMI) [Ratio]49.5 kg/y2Uhhjy Hemmer PA Work Phone: [facility] ServicesSfxrczpbbi23-00-2399 16:51-0400Body gbnsna123.19 kgKaren Hemmer PA Work Phone: [facility] ServicesYibnslklwq12-66-3185 16:51-0400Diastolic blood fuvkgyxi83 mm[Hg]Carolyn Hemmer PA Work Phone: [facility] ServicesNectsiaqao66-30-6185 16:51-0400Heart rate93 /min Carolyn Hemmer PA Work Phone: [facility] ServicesWpwtaloaok40-89-0300 16:51-0400Respiratory rate16 /minJesusen Hemmer PA Work Phone: [facility] ServicesFxmkxzbwaw16-71-4569 16:51-4899XeJ8% (BldA) [Mass fraction]96 %Carolyn Hemmer PA Work Phone: [facility] ServicesHnfeivpsxx76-20-6167 16:51-0400Systolic blood lhincabd179 mm[Hg]Carolyn Hemmer PA Work Phone: [facility] ServicesUaksuygkma66-92-1823 16:40-0500Diastolic blood prbpinsa77 mm[Hg]Carolyn Hemmer PA Work Phone: [facility] Ryodrseocx54-28-6439 16:40-0500Systolic blood ofnzopgv634 mm[Hg]Carolyn Hemmer PA Work Phone: [facility] ServicesNxetrsgyqs38-54-7548 16:28-0500Body mass index (BMI) [Ratio]46.39 kg/x9Iaoan Hemmer PA Work Phone: [facility] ServicesCfvysrqkhz07-03-7529 16:28-0500Body .49 kgKaren Hemmer PA Work Phone: [facility] ServicesIbcvgchwhx89-59-5336 16:28-0500Heart rate91 /min Carolyn Hemmer PA Work Phone: [facility] ServicesEjfjspapcg13-81-7229 16:28-0500Respiratory rate18 /minJesusen Hemmer PA Work Phone: [facility] ServicesOyuvllzfrq96-82-6619 16:28-8672DfR9% (BldA) [Mass fraction]97 %Carolyn Hemmer PA Work Phone: [facility] ServicesCpofoahgvo86-99-5711 13:45-0500Body .42 Yamel [facility] [employer] Other 11-29-2023 13:45-0500Diastolic blood mm[Hg] Osiel Lewis Other [facility] [employer] Other 11-29-2023 13:45-6402BuU7% (BldA) [Mass fraction]97 % Osiel Lewis Other [facility] [employer] Other 11-29-2023 13:45-0500Systolic blood ksjurrrx973 mm[Hg] Osiel Lewis Other [facility] [employer] Other 10-26-2023 16:00-0400Body wqatfl875.42 Yamel Lewis Other [facility] [employer] Other 10-26-2023 16:00-0400Body mass index (BMI) [Ratio] 48.02 kg/d7TvtgbbOsiel Lewis Other [facility] [employer] Other 10-26-2023 16:00-0400Body ckpnag435.11 kgOsiel Lewis [facility] [employer] Other 10-26-2023 16:00-0400Diastolic blood pestwgcf74 mm[Hg] Osiel Lewis Other [facility] [employer] Other 10-26-2023 16:00-9823WvE7% (BldA) [Mass fraction]96 % Osiel Lewis Other [facility] [employer] Other 10-26-2023 16:00-0400Systolic blood qfbofqyu377 mm[Hg] Osiel Lewis Other [facility] [employer] Other 09-27-2023 11:06-0400Diastolic blood mm[Hg] PA-C Carolyn Hemmer Work Phone: [facility]09-27-2023 11:06-0400 Heart rate77 /minPA-C Carolyn Hemmer Work Phone: [facility]09-27-2023 11:06-0400 Respiratory rate19 /minPA-C Carolyn Hemmer Work Phone: [facility]09-27-2023 11:06-0400 SaO2% (BldA) [Mass fraction]97 %PA-C Carolyn Hemmer Work Phone: [facility]09-27-2023 11:06-0400 Systolic blood mgkazqxv256 mm[Hg]PA-C Carolyn Hemmer Work Phone: [address] [place], [place] 2801709-27-2023 09:24-0400 Body ookhdhkcdwm50.6 [degF]PA-C Carolyn Hemmer Work Phone: 1(760)[address] [place], [place] 2801709-27-2023 09:23-0400 Body crlzja975.42 cmPA-C Carolyn Hemmer Work Phone: 1(572)[address] [place], [place] 2801709-27-2023 09:23-0400 Body .8 kgPA-C Carolyn Hemmer Work Phone: 1(726)[address] [place], [place] 2801705-09-2023 09:07-0400 Body tkrfalohvpg94.2 [degF]PA-C Carolyn Hemmer Work Phone: 1(122)[address] [place], [place] 2801705-09-2023 09:07-0400 Body codxuj659.68 kgPA-C Carolyn Hemmer Work Phone: 1(628)[address] [place], [place] 2801705-09-2023 09:07-0400 Diastolic blood jhxvhnxy18 mm[Hg]PA-C Carolyn Hemmer Work Phone: 1(922)[address] [place], [place] 2801705-09-2023 09:07-0400 Heart rate80 /minPA-C Carolyn Hemmer Work Phone: 1(655)[address] [place], [place] 2801705-09-2023 09:07-0400 Respiratory rate20 /minPA-C Carolyn Hemmer Work Phone: 1(780)[address] [place], [place] 2801705-09-2023 09:07-0400 SaO2% (BldA) [Mass fraction]97 %PA-C Carolyn Hemmer Work Phone: 1(750)[address] [place], [place] 2801705-09-2023 09:07-0400 Systolic blood mm[Hg]PA-C Carolyn Hemmer Work Phone: 1(399)[address] [place], [place] 2801705-08-2023 08:52-0400 Body hbrjxi051.4 cmVíctor Rosales MD Work Phone: [facility] CenterBwypdb80-29-5573 08:52-0400Body rjkhba106.48 kgVíctor Rosales MD Work Phone: [phone] Zzpiwp54-85-6479 08:52-0400Diastolic blood lobuwmlj78 mm[Hg]Víctor Rosales MD Work Phone: [phone] Jcwlgp85-70-2946 08:52-0400Heart rate92 /min Víctor Rosales MD Work Phone: [place] Eesojl53-61-3547 08:52-0400Systolic blood mm[Hg]Víctor Rosales MD Work Phone: [phone] Dggwmm16-46-3993 08:01-0400Body tlucmz144.42 cmPA-C Carolyn Hemmer Work Phone: 1(897)619[facility]97[facility]03-27-2023 17:55-0400 Diastolic blood dsniccnw92 mm[Hg]PA-C Carolyn Hemmer Work Phone: [facility]03-27-2023 17:55-0400 Heart rate92 /minPA-C Carolyn Hemmer Work Phone: [facility]03-27-2023 17:55-0400 Respiratory rate16 /minPA-C Carolyn Hemmer Work Phone: [facility]03-27-2023 17:55-0400 SaO2% (BldA) [Mass fraction]94 %PA-C Carolyn Hemmer Work Phone: [facility]03-27-2023 17:55-0400 Systolic blood imluozvk007 mm[Hg]PA-C Carolyn Hemmer Work Phone: [facility]03-27-2023 17:25-0400 Inhaled oxygen flow rate1 L/minPA-C Carolyn Hemmer Work Phone: [facility]03-27-2023 16:26-0400 Body vjreeinyave39.4 [degF]PA-C Carolyn Hemmer Work Phone: [facility]03-27-2023 15:31-0400 Body dwyhxw823.42 cmPA-C Carolyn Hemmer Work Phone: [facility]03-27-2023 15:31-0400 Body mass index (BMI) [Ratio]48.2 kg/m2PA-C Carolyn Hemmer Work Phone: [facility]03-27-2023 15:31-0400 Body umwbyd093 kgPA-C Carolyn Hemmer Work Phone: [facility]03-16-2023 11:13-0400 Diastolic blood ereiztbc71 mm[Hg][facility]dinW[facility] [facility] DO Work Phone: 1(035)[phone] 11:13-0400Systolic blood mm[Hg] Carolyn Andrews [facility] [address] DO Work Phone: 1(940)021-163-317076-21 11:12-0400Body xfygpk754.42 cmCarolyn Andrews [facility] [address] DO Work Phone: 7(294)250-015-317901-00 11:12-0400Body mass index (BMI) [Ratio] 47.36 kg/l1Evutc M [facility] [address] DO Work Phone: [phone](439)[phone] 11:12-0400Body surface area Derived from formula2.76 m6Lzfbl M [facility] [address] DO Work Phone: 1(455)177-535-657091-67 11:12-0400Body wirgue998.84 kgCarolyn Andrews [facility] [address] DO Work Phone: 7(816)[phone] 11:12-0400Diastolic blood jriyilnf40 mm[Hg] Carolyn Andrews [facility] [address] DO Work Phone: 7(660)660-823-338362-02 11:12-0400Heart rate90 /minCarolyn Verdin [facility] [address] DO Work Phone: 1(376) 303-400903-16-2023 11:12-0400Systolic blood qdanfelk562 mm[Hg] Carol[facility]dinW[facility] [address] DO Work Phone: 1(343) 282-274703-06-2023 10:54-0500Diastolic blood sojsbsoy38 mm[Hg] TimmyADENTS HTI [facility]03-06-2023 10:54-0500Mean blood jzfvyypp228 mm[Hg][employer] [facility]03-06-2023 10:54-0500Respiratory rate70 /minVoIPshield Systems [facility]03-06-2023 10:54-0500Systolic blood anjjbcfg615 mm[Hg][employer] [facility]03-06-2023 10:37-0500Blood Pressure LocationGregADENTS HTI [facility]03-06-2023 10:37-0500Diastolic blood etecwwbe90 mm[Hg]TimmyADENTS HTI [facility]03-06-2023 10:37-0500Heart rate84 /minDoniADENTS HTI [facility]03-06-2023 10:37-0500Systolic blood pzkyekmh314 mm[Hg][employer] [facility] Encounters Encounter DateEncounter TypeCare ProviderFacilityStart: 12-13-2024 End: 52-48-9541pzuziqeblzXqcyy Hemmer CUFFING MACHINE OPERATOR-C Work Phone: [facility] Work Phone: Start: 12-13-2024 End: 84-40-2774Vzelwvh encounter procedureSbarbara Lewis [facility]DEcu [facility] Work Phone: Start: 12-06-2024 End: 63-51-1602chpmqzufdnBsoap Hemmer CUFFING MACHINE OPERATOR-C Work Phone: [facility] Work Phone: Start: 12-06-2024 End: 22-41-7812Bnusnim encounter procedureSbarbara Lewis MDPortage Hospital Work Phone: Start: 11-13-2024 End: 21-00-1492Bsunhrb encounter procedureSbarbara Lewis MDSanta [facility] Work Phone: Start: 11-13-2024 End: 95-65-6896frntkaokhrXtlxv Hemmer CUFFING MACHINE OPERATOR-C Work Phone: [facility] Work Phone: Start: 11-12-2024 End: 63-75-0813tbbnposrolWukrn Hemmer CUFFING MACHINE OPERATOR-C Work Phone: [facility] Work Phone: Start: 11-12-2024 End: 61-35-3415Ituhzgf encounter procedureSbarbara Lewis MDEcu [facility] Work Phone: Start: 10-29-2024 End: 68-02-5741Vpzjff outpatient visit 25 minutesCarolyn BRODERICK Work Phone: [facility] on above:Type 2 diabetes mellitus with hyperglycemia, with long-term current use of insulin (HCC) (Primary Dx); Primary hypertension ; Morbid obesity (CMS-HCC); BMI 50.0-59.9, adult ([facility]-HCC); Lumbar spondylosisStart: 10-29-2024 End: 02-76-6943fismsdyfajBDJNU M HEMMERNot AvailableStart: 10-29-2024 End: 86-85-3884Rrnjxp Donavan Verdin PA Work Phone: [facility] MedinceStart: 10-29-2024 End: 21-56-7232Vlozrg Donavan Verdin PA Work Phone: [facility] MedinceStart: 08-29-2024 End: 82-97-6267Dkgzmv outpatient visit 25 minutesCarolyn BRODERICK Work Phone: [facility] CI FMComment on above: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); Type 2 diabetes mellitus with hyperglycemia, with long-term current use of insulin (HCC); Morbid obesity (CMS-HCC); BMI 50.0-59.9, adult ([facility]-HCC); Type 2 diabetes mellitus with other specified complication, with long-term current use of insulin (HCC)Start: 08-29-2024 End: 32-47-6221utbeanrjfpHKGIB M HEMMERNot AvailableStart: 08-01-2024 End: 28-22-7818Xldfnm outpatient visit 25 minutesCarolyn BRODERICK Work Phone: [facility] CI FMComment on above:Type 2 diabetes mellitus with other specified complication, with long-term current use of insulin (P rimary Dx); 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); Lymphedema; Lumbar spondylosis; Type 2 diabetes mellitus with hyperglycemia, with long-term current use of insulin (CMS/HCC); Morbid obesity (CMS/HCC); BMI 50.0-59.9, adult ([facility]/HCC)Start: 08-01-2024 End: 33-49-1490kcpawnlqpjYMLNU M HEMMERNot AvailableStart: 08-01-2024 End: 12-55-3589Rozxyn Donavan BRODERICK Work Phone: [facility] CI FMStart: 08-01-2024 End: 54-45-7414Gmiair Donavan BRODERICK Work Phone: [facility] CI FMStart: 18-85-1174xupslktegxPqpeb Hemmer [facility] 05-09-2024 End: 58-79-4641Hahlpe outpatient visit 25 minutesCarolyn BRODERICK Work Phone: [facility] CI FMComment on above:Type 2 diabetes mellitus with hyperglycemia, without long-term current use of insulin (CMS/HCC) (Primary Dx); Morbid obesity (CMS/HCC); BMI 50.0-59.9, adult (CMS/HCC); 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); Cellulitis of left lower leg; Lymphedema; Pitting edema; Levoscoliosis of lumbar spineStart: 05-09-2024 End: 22-33-7371rvyhgatfaxZPNSJ M HEMMERNot AvailableStart: 05-09-2024 End: 19-19-8708Lixojq Donavan BRODERICK Work Phone: [facility] CI FMStart: 05-09-2024 End: 81-98-3275Jnszaxgeorge BRODERICK Work Phone: [facility] CI FMStart: 04-26-2024 End: 17-88-9326Phbihu outpatient visit 25 minutesCarolyn BRODERICK Work Phone: [facility] CI FMComment on above: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) (Primary Dx); Cellulitis of left lower leg; Pitting edema; Lumbar spondylosis; Spinal stenosis of lumbar region, unspecified whether neurogenic claudication presentStart: 04-26-2024 End: [id number] Deng AvailableStart: 04-10-2024 End: 04-77-0169Vzffhkmjz Andrew Rodriguez MD Work Phone: [facility] FMStart: 04-04-2024 End: [id number] outpatient visit 25 minutesCarolyn BRODERICK Work Phone: [facility] FMComment on above:Type 2 diabetes mellitus with other specified complication, without long-term current use of insulin (CMS/HCC) (Primary Dx); 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); Cellulitis of left lower leg; Morbid obesity (CMS/HCC); BMI 50.0-59.9, adult (CMS/HCC); Mild tricuspid regurgitationStart: 04-04-2024 End: 11-43-4876gwwpzehpvxKZNFAAmrita Deng AvailableStart: 04-04-2024 End: 29-31-3763Pwyqul Donavan BRODERICK Work Phone: [facility] FMStart: 04-04-2024 End: 49-49-8312Pejxij Donavan BRODERICK Work Phone: [facility] FMStart: 04-02-2024 End: 54-81-4745aynkkhqzwuCllxtgp Frings DO Work Phone: [facility] Work Phone: Start: 04-02-2024 End: 25-67-3291Qquwpfzozz RecurringMichael Frings DO Work Phone: [facility] [place] Work Phone: Start: 03-22-2024 End: 64-65-7053Jfvzzuasy encounterDaleonila Rodriguez MD Work Phone: [facility] FMStart: 03-19-2024 End: 36-52-4033Quusbc outpatient visit 25 minutesCarolyn BRODERICK Work Phone: [facility] CI FMComment on above:Cellulitis of left lower leg (Primary Dx); History of sepsis; Morbid obesity (CMS/HCC); Primary hypertension (CMS/HCC)Start: 03-19-2024 End: 75-64-9167quepspkukuRCJXWAmrita Deng AvailableStart: 26-91-7316Mjv-patient / Non-visitMichael Frings DO Work Phone: [facility] Work Phone: Start: 29-03-7511Mmu-patient / Non-visitMichael Frings DO Work Phone: [facility] Work Phone: Start: 03-08-2024 End: 42-69-3407Saigbuxstp and management of inpatientMike Phelan MD Work Phone: [facility] [place] [facility] Work Phone: Start: 03-07-2024 End: 67-74-3888pmdvczpgymJME [facility] Work Phone: Start: 03-07-2024 End: 79-15-5462Ndayewkj ReferredMike Phelan MD Work Phone: [facility] Path Spec Gloria HospStart: 12-28-2023 End: 96-59-4567Bjctvz outpatient visit 25 minutesCarolyn BRODERICK Work Phone: [facility] CI FMComment on above:Type 2 diabetes mellitus with other specified complication, without long-term current use of insulin (CMS/HCC) (Primary Dx); Primary hypertension (CMS/HCC); Morbid obesity (CMS/HCC)Start: 12-28-2023 End: 69-34-7576algwgvohbjESHUZAmrita Deng AvailableStart: 12-28-2023 End: 93-72-5178Viwhchbryan BRODERICK Work Phone: [facility] FMStart: 12-28-2023 End: 11-19-6805Pddbgvbryan BRODERICK Work Phone: [facility] FMStart: 12-27-2023 End: 30-51-7164OeggbqCkhwvq B Berry MD Work Phone: [facility] CI FMComment on above:Morbid obesity (CMS/HCC) Start: 11-23-2023 End: 85-78-9977LrbkhtIgvkqNikki BRODERICK Work Phone: [facility] CI FMComment on above:Morbid obesity (CMS/HCC) Start: 11-21-2023 End: 37-03-5515AuimxwPozmjo B Berry MD Work Phone: [facility] CI FMComment on above:Morbid obesity (CMS/HCC) Start: 10-24-2023 End: 16-59-5804DlmkqrTvvmzNikki BRODERICK Work Phone: [facility] CI FMComment on above:Morbid obesity (CMS/HCC) Start: 04-20-2023 End: 14-94-4654Hhwjbc outpatient visit 15 minutesCarolyn Verdin PA Work Phone: [facility] CI FMComment on above:Primary hypertension (CMS/HCC) (Primary Dx); Morbid obesity (CMS/HCC)Start: 08-06-8679Uzsghi Donavan Verdin PA Work Phone: [facility] FMStart: 18-29-9874Mfpvbd Donavan BRODERICK Work Phone: [facility] FMStart: 02-02-2023 End: 40-44-8072ykplvkqbzyDaxmwl Joshua Other noG[employer] Swarm [employer] Other Start: 14-76-7492Jdtnwv outpatient visit 15 minutes Osiel ZakyFPG Pain ManagementStart: 12-30-2022 End: 66-33-0496tyurjrgtbdUiuwho Joshua Other noGiant Swarm Experifun Other Start: 59-27-5205Mqngyq consultation new/estab patient 60 minSherif ZakyFPG Pain ManagementStart: 12-01-2022 End: 44-19-5488Uqugfbbps department patient visitPA-Falguni Verdin Work Phone: [facility] Work Phone: Start: 11-09-2022 End: 07-30-1328zshncihevgDVNCH HEMMERFacility:EU [place]kyStart: 08-19-2022 Telephone Dereje Rosales MD Work Phone: UrologyComment on above:ResultsStart: 08-13-2022 End: 57-16-6872wgvdaycshhQYTTVQB L RALOFSKYFacility:[facility] Start: 08-09-2022 End: 64-29-9696mraomkpxijExfdtzi P COOKFacility:EU [place]kyStart: 08-09-2022 End: 46-37-4965Hvqvxoa encounter procedureGregjames SANTANA [facility] [place] Start: 07-13-2022 End: 89-57-5604jnqfitpsutNRC Carolyn Verdin Work Phone: [facility] Work Phone: Start: 07-13-2022 End: 31-01-6402Ierdkjtzgg RecurringCT-C Carolyn Verdin Work Phone: [facility] Work Phone: Start: 07-12-2022 End: 69-05-7294ipytgphelnVnpnpot W Angermeier MD Work Phone: UrologyStart: 07-12-2022 End: 22-99-8971Gzqgitc encounter procedureVíctor Rosales MD Work Phone: UrologyComment on above:Penile cancer (HCC) (Primary Dx); Hidden penis; Morbid obesity with BMI of 45.0-49.9, adult (HCC)Start: 06-21-2022 End: 41-21-2342pvpnjhwfwwVvtyvie P COOKFacility:EU [place]kyStart: 05-31-2022 End: 53-30-5805cmrkmsglmhCuxzxie P RHONDAFacility:CD:[id number]: 05-31-2022 End: 28-30-4615Kowuwkfsx to same day surgery centerPA-Falguni Verdin Work Phone: [facility] Main CampusStart: 98-07-4338Hohxzq consultation new/estab patient 60 minCarolyn VerdinWalla Walla General [facility]-[place] DO Work Phone: Start: 78-27-4876nytmqzanvsJhxrncz She[place]on Facility:[id number]: 05-17-2022 End: 35-39-6907kshiyjlapgLR-Falguni Stokes Hemmer Work Phone: [facility] Work Phone: Start: 05-17-2022 End: 73-75-9974Ezmqczv encounter procedurePA-C Carolyn Hemmer Work Phone: [facility]Iupvcwsj Testing Work Phone: Start: 05-10-2022 End: 15-99-1319sfoyweddsxFahuxti P COOKFacility:EU [place]kyStart: 05-10-2022 End: 40-59-4561Fapboil encounter procedureTimmy SANTANA [facility] [place] Start: 23-18-4772uzwfvavzrdGZHTD HEMMERFacility:EU [place]kyPatient encounter Babak VerdinWalla Walla [facility] [address] DO Work Phone: Procedures DateProcedureProcedure DetailPerforming ClinicianStart: 29-71-5646Wwgpg X-ray of right hipCarolyn Conwaymer CUFFING MACHINE OPERATOR-C Work Phone: Start: 39-75-5716B-ray of thoracic spine, three views Carolyn Hemmer CUFFING MACHINE OPERATOR-C Work Phone: Start: 56-86-2186Bbvecrvgxg glycosylated a6fLqwdh M Hemmer PA Work Phone: Start: 95-80-0137Bhjcqklyqv glycosylated l5gZlrrj M Hemmer PA Work Phone: Start: 19-46-0799Qseljwvkmu glycosylated d3fUover M Hemmer PA Work Phone: Start: 12-32-4932Rxvehy scan of lower limb veins Calvin Son DO Work Phone: Start: 90-47-6161Ujqaohxc identified in Blood by CultureMichael Frings DO Work Phone: Start: 96-07-1824AQ of lower leg with contrastMichael Frings DO Work Phone: Start: 80-09-3062Hqtcrwdf identified in Blood by CultureMichael Frings DO Work Phone: Start: 59-16-1798Obzoojfct ID (NA Multiplex Assay) Mike Phelan MD Work Phone: Start: 59-13-0957Msdqbvihob glycosylated o1rPjrdmCarolyn Verdin PA Work Phone: Start: 02-77-0456EM of right hipPA-C Carolyn Hemmer Work Phone: Start: 39-48-3286Egswx dip stick/tablet rgnt auto w/o microscopyBulk Order ProviderStart: 89-80-2298Enkrjjqi tomography of abdomen and pelvis with contrastPA-C Carolyn Hemmer Work Phone: Start: 62-70-7391QR of thorax with contrastPA-C Carolyn Hemmer Work Phone: Start: 14-29-3190XwokvflkdkolLV-C Carolyn Hemmer Work Phone: Start: 94-92-1156CniohjxwwnlbQonkjbj [facility] Start: 97-53-6490Ptptl chest X-rayPA-C Carolyn Hemmer Work Phone: Start: 98-40-1129Erpbwga of tonsillectomyGregcommunity memorial hospital [facility] NEGATED: Highlighted row has not occurred!Total colonoscopyCarolyn Verdin Plan of Treatment DateCare ActivityDetailAuthorStart: 37-00-7405USPWNTOB CANCER SCREENING DISCUSSIONPROSTATE CANCER SCREENING DISCUSSIONCleveland ClinicStart: 05-14-2025 Urine screening for proteinDiabetes: Urine Protein ScreeningNOAL Healthcare Start: 02-06-2025 End: 27-11-7032Cdolnpr encounter bwelonbpj32/03/2025 4:30 PM EST Office Visit [facility] [place] [facility]re[facility] [address] [place] [address] Carolyn Verdin PA [address] [place] [address] [facility] [place] [facility]re[facility] CenternceStart: 01-29-2025 Hemoglobin A1c measurementDiabetes: Hemoglobin H5ZZVSW HealthcareStart: 98-55-6262Fhglfgoob vaccinationInfluenza Vaccine (#1)[facility] HealthcareStart: 70-23-8869Agsptulqxl A1c measurementDiabetes: Hemoglobin U9NFFIQ Healthcare Start: 10-29-2024 End: 05-95-5231Itchzjp encounter procedureNOMS CI FMComment on above:Arrived Start: 69-15-9295Kvewxkreo vaccinationInfluenza Vaccine (#1)[facility] Healthcare Comment on above:Postponed from 11/06/2023 (Patient Refused)Start: 08-29-2024 End: 54-26-3212Hzeyehi encounter rrrvutiqz34/25/2025 4:30 PM EDT Office Visit [facility] FM [address] [place] [address] Carolyn Verdin PA [address] [place] [address] [facility] CI FMStart: 78-77-5119Gwwivcvyy for malignant neoplasm of colonColorectal Cancer ScreeningNOAL HealthcareComment on above: Postponed from 1965 (Patient Refused)Start: 08-01-2024 End: 90-88-1158Igdhxel encounter lquurtwaf12/28/2025 5:00 PM EDT Office Visit [facility] [address] [place] [address] Carolyn Verdin, PA [address] [place] [address] ArrivedNOMS CI FMComment on above:ArrivedStart: 37-06-6191Dbdtfbaqph A1c measurementDiabetes: Hemoglobin C1SRUZL Healthcare Start: 06-13-2024 End: 31-50-0932Badocoi encounter /09/2025 5:00 PM EDT Office Visit [facility] [address] [facility] [address] [place] [address] Carolyn Verdin PA [address] [place] [address] [facility] CI FMStart: 05-09-2024 End: 75-67-1485Rlvdqay encounter procedureNOMS CI FMComment on above:Arrived Start: 05-09-2024 End: 19-74-7755Zfkvrdbkybjam metabolic 2000 panel - Serum or PlasmaComprehensive metabolic panel Lab Routine Type 2 diabetes mellitus with hyperglycemia, without long-term current use of insulin ([facility]) Expected: 05/09/2024 (Approximate), Expires: 05/09/2025NOMS HealthcareComment on above:Expected: 05/09/2024 (Approximate), Expires: 05/09/2025Start: 05-09-2024 End: 58-18-1818Rwtjyynffhnq/Creatinine panel in random UrineMicroalbumin / creatinine, urine ratio Lab Routine Type 2 diabetes mellitus with hyperglycemia, without long-term current use of insulin ([facility]) Expected: 05/09/2024 (Approximate), Expires: 05/09/2025[facility] Work Phone: Comment on above:Expected: 05/09/2024 (Approximate), Expires: 05/09/2025Start: 04-04-2024 End: 14-37-4128Gojdnie encounter procedureNOMS CI FMComment on above:Arrived Start: 60-22-2530Cklpaexoau A1c measurementDiabetes: Hemoglobin X9ERFGZ HealthcareStart: 96-62-4499YyaeqhtspNationwide Children's Hospitaltart: 03-09-2024 ConsultationNationwide Children's Hospitaltart: 79-15-8075Cjrtlbgy to infectious diseases physicianNationwide Children's Hospitaltart: 03-09-2024 [facility]: 08-00-7996Hoptgsst admissionNationwide Children's Hospitaltart: 96-78-0659AgbrfxheoC[facility] Clinic Foundation CenterStart: 10-93-9712RgmtoktkrCleveland Clinic Foundation CenterStart: 36-17-0770Hvcsszdm identified in Blood by CultureBlood CultureNationwide Children's Hospitaltart: 94-83-8110Ktvru screening for proteinDiabetes: Urine Protein ScreeningSALT LAKE REG[facility]AL [facility]ICAL [facility] HealthcareStart: 12-28-2023 End: 71-28-6803Qkbgywm encounter procedureNOMS CI FMComment on above:Arrived Start: 34-79-6618Mreuniwxca A1c measurementDiabetes: Hemoglobin N1RBSXJ HealthcareStart: 11-23-2023 End: 05-64-0418Nokjvvb encounter /18/2024 5:00 PM EDT Office Visit [facility] [address] [facility] [address] [place] [address] Carolyn Verdin PA [address] [facility] [address] [place] [address] N[facility] CI FMStart: 45-11-1098Xcrfgmcsu vaccination Influenza Vaccine (#1)NOM[facility] HealthcareStart: 55-70-0446MYLYLOVL SCREENDIABETES SCREENCleveland Clinictart: 07-20-2023 End: 31-78-6579Etxaijt encounter /15/2024 5:00 PM EDT Office Visit [facility] [address] [facility] [address] [place] [address] Carolyn Verdin PA [address] [place] [address] [facility] CI FMStart: 74-11-1704Yymbwejvje A1c measurement Diabetes: Hemoglobin T0JZHKJ HealthcareStart: 04-20-2023 End: 03-19-9986Drrexxx encounter uejuwrvqf87/14/2024 5:00 PM EST Office Visit [facility] [address] [facility] [address] [place] [address] Carolyn Verdin PA [address] [place] [address] ArrivedNOMS CI FMComment on above:ArrivedStart: 57-55-2607Lzyfwehrj vaccinationINFLUENZA (Season Ended)[facility] Clin[facility]art: 10-64-0491Mypeanyng for malignant neoplasm of colonNOMS HealthcareStart: 12-40-7921Giziwmmg screeningDiabetes: Retinopathy ScreeningNOAL HealthcareStart: 39-27-5999RuuoemoviNationwide Children's Hospitaltart: 38-89-0537KvrgoaimrNationwide Children's Hospitaltart: 51-20-1507Wwnhm chest X-rayXR chest 2V*[facility] Hospitaltart: 56-25-9756PE Chest 2 ViewsMary Rutan Hospital Start: 10-54-5649PQPZQNUOBS ASSESSMENTDEPRESSION ASSESSMENTSelect [facility] Start: 72-79-2577FAUJV-19 VACCINE (4 - Booster for Moderna series)COVID-19 VACCINE (4 - Booster for Moderna series)[facility]: 2015 SHINGRIX VACCINE (1 of 2)SHINGRIX VACCINE (1 of 2)[facility]: 14-71-6252LGBAQJAPG (FIT-DNA)COLOGUARD (FIT-DNA)[facility]: 25-50-4567WrqeqeqhnjqGFWXSTCBZTUWbmbfwekw ClinicStart: 22-40-9946RFBBYKEHRE CANCER SCREENINGCOLORECTAL CANCER SCREENINGCleveland Clinictart: 02-45-5108UR COLONOGRAPHYCT COLONOGRAPHYCleveland Clinictart: 01-33-9144TNHOQ OCCULT BLOOD FECAL OCCULT BLOODCleveland Clinictart: 02-38-2678WOLKUMDZVIIPDUJMZCDPGVKLAO [facility]: 80-53-9877YYZPX SCREENLIPID SCREENCleveland Clinictart: 61-34-1507Wcbva microalbumin profileDTAP,TDAP,TD (1 - Tdap)[facility] Start: 45-88-4848AFYTINPXU C SCREENINGHEPATITIS C SCREENINGSelect [facility]ty [facility] Start: 31-86-2335UIH SCREENINGHIV SCREENINGCleveland Clinictart: 1965 HEPATITIS B (1 of 3 - 3-dose series)HEPATITIS B (1 of 3 - 3-dose series) [facility]: 33-40-6989Bxdlwuhsq for malignant neoplasm of colonSALT LAKE REGIONAL [facility]ICAL [facility]ENTER HealthcareCBC W Auto Differential panel - BloodCBC and differential Lab Routine Type 2 diabetes mellitus with hyperglycemia, without long-term current use of insulin (CMS/HCC) Hypertension due to endocrine disorder ([facility]/HCC) Cellulitis of left lower leg Ordered: 05/09/2024NOAL HealthcareComment on above:Ordered: 05/09/2024Lipid 1996 panel - Serum or PlasmaLipid panel Lab Routine Type 2 diabetes mellitus with hyperglycemia, without long-term current use of insulin (CMS/HCC) 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) Ordered: 05/09/2024 [facility] HealthcareComment on above:Ordered: 05/09/2024Patient EducationC[facility] Clinic Foundation Ctr Work Phone: Patient referralC[facility] Clinic [facility] Work Phone: XR Hip [facility] right [facility] 3 [facility] Immunizations Immunization DateImmunizationNotesCare XjdsmdygBwlteawr31-91-8960ujjovoewq, seasonal, injectable, preservative freeKaren Hemmer PA Work Phone: [facility] ServicesRaszqnkjtj47-26-0660awhxsihzj virus vaccine, unspecified formulationKaren Hemmer PA Work Phone: [facility] ServicesTbarfexzmx54-32-3619pbcysizdl, injectable, quadrivalent, preservative freeKaren Hemmer PA Work Phone: [facility] ServicesNsgscxkxgb46-04-8329jnydljxfl virus vaccine, unspecified formulationKaren Hemmer PA Work Phone: [facility] ServicesIqdztnwxoj74-39-0123KKUN-CiQ-0 (COVID-19) mRNA- 1273 vaccineGregory [facility] Hospitaly04-29-2021SARS-CoV-2 (COVID-19) mRNA-1273 vaccineGregory [facility] Charles HospitalyComment on above:Result Comment: 2022-05-10: FEF2084-23-8426KFWI-YdI-5 (COVID-19) iJBH-7780 vaccineTimmy [facility] RadhayComment on above:Result Comment: 2022-05-10: EGS5486-37-9235fjmjsykhs virus vaccine, unspecified formulationTimmy [facility] Hospitaly10-02-2017seasonal influenza, intradermal, preservative [facility] Payers DatePayer CategoryPayerPolicy [id number] Health InsuranceMEDICAL MUTUAL [id number] [id number] [id number] 2..1.348673.3.57[id number] 2.0.1.964669.3.57[id number] 2..1.648031.3.57[id number] 2.0.1.210745.3.57[id number] 2.0.1.117653.3.57[id number] 2..840.1.849530.3.57[id number] 2.16.840.1.961349.3.57[id number] 2.840.1.512545.3.57[id number] 2..840.1.166575.3.57[id number] 2.0.1.626821.3.57[id number] 2.0.1.377372.3.57[id number] 2..1.325990.3.57[id number] 2.0.1.922981.3.57[id number] 2..840.1.3979[id number] 2.840.1.506072.3.579.2.531 [id number] 2.840.1.2[id number] 2.840.1.924[id number] 2.840.1.760949.3.579.2.531 [id number] 2.840.1.867968.3.579.2.531 Social History DateTypeDetailFacilityStart: 05-10-2022 End: 90-23-6538Yenahxv smoking statusNever smoked tobacco (finding)[facility] SandpirtlevilleyTobacco smoking statusNever [facility] [place]Start: 03-16-2023 End: 96-17-5616Eqs Assigned At [facility] Hospitaltart: 05-17-2022 End: 02-01-8590Dkojdda smoking status NHISEx-smoker (finding)[facility]tart: 39-22-0096Byr Assigned At [facility] Centertart: 03-16-2023 End: 74-47-9174Jaqphrtwcb alcohol useOccasional alcohol use-[facility] [address] DO Work Phone: Comment on above:couple shots 1- 2 per week;tea all day, occasionally coffee;quit 29+ years ago;History of tobacco useCurrent smoker [facility]ronHistory of tobacco useCigarette SmokerCleveland Clinictart: 07-12-2022 End: 10-66-1744Kenmqoa use and exposureUser of smokeless tobaccoSelect Medical Specialty Hospital - [facility] Start: 01-64-0250Veh Assigned At BirthNot on fileSelect Medical Specialty Hospital - AkronHistory of tobacco useSnuff UserNOMS HealthcareStart: 03-16-2023 End: 24-66-4266Xjjcuwn intakeCurrent drinker of alcohol (finding)[facility] Start: 45-24-5833Londuqj CommentCaffeine intake: coffee, sodaNOMS Healthcare Start: 03-09-2024 End: 34-29-9433OfiIjzm (finding)[facility] Medical Equipment Procedure CodeEquipment CodeEquipment Original TextEquipment IdentifierDates [id number], [id number], [id number]: 07-03-2013 Goals DatePatient GoalDesired Activity/State Functional Status YauwVnjnwqzlzaAyadymYzkkaeua96-96-3518Bringbh Health Questionnaire 2 item (PHQ- 2) [Reported][facility] Health ServicesGkqqpkolvu48-11-0358Omdnndvihg statusPatient at Baseline [facility] Work Phone: [phone]) 535-836103465850-94-7309Crqiqncjxu StatusN/AExecutive [facility]rology of [facility] Mental Status ZusnEhxrtpccdjHsfefaStljoknj81-99-5741Xceilijdy functionCognitive Status [facility]Tr[facility] Work Phone: Clinical Notes 05-10-2022 to 11-12-2024 Note Date & FmllGegpYsomtejz07-79-1299 Evaluation note* Diagnosis Onset Date Resolution Status Admit Date Lumbosacral spondylosis acuteSeptember 2024 2:54pmMid back painacuteSeptember 2024 2:54pmOther chronic painacuteSeptember 2024 2:54pmRight hip painacuteSeptember 2024 2:54pmThoracic spondylosisacuteSeptember 2024 2:54pm [facility] Work Phone: 1(453) 579-226609-08-2025 Evaluation note* Diagnosis Onset Date Resolution Status Admit Date Lumbosacral spondylosis acuteSeptember 2024 2:54pmMid back painacuteSeptember 2024 2:54pmOther chronic painacuteSeptember 2024 2:54pmRight hip painacuteSeptember 2024 2:54pmThoracic spondylosisacuteSeptember 2024 2:54pmMyofascial muscle painacuteOctober 2024 2:16pmOther chronic painacuteOctober 2024 2:16pm Thoracic spondylosisacuteOctober 2024 2:16pm [facility] Work Phone: 1(759) 100-227609-08-2025 Evaluation note* Diagnosis Onset Date Resolution Status Admit Date Lumbosacral spondylosis acuteSeptember 2024 2:54pmMid back painacuteSeptember 2024 2:54pmOther chronic painacuteSeptember 2024 2:54pmRight hip painacuteSeptember 2024 2:54pmThoracic spondylosisacuteSeptember 2024 2:54pmMyofascial muscle painacuteOctober 2024 2:16pmOther chronic painacuteOctober 2024 2:16pm Thoracic spondylosisacuteOctober 2024 2:16pmMyofascial muscle painacute October 2024 3:12pmOther chronic painacuteOctober 2024 3:12pm [facility] Work Phone: 1(482) 625-160308-25-2025 History of Present illness Narrative* MEGGAN Lopez [...] Glucose Sensor (FreeStyle Jalil 3 Plus Sensor) [facility] 1 each every 14 (fourteen) days 6 each 3 ergocalciferol (Vitamin D2) 1.25 MG (99314 UT) capsule TAKE 1 CAPSULE BY MOUTH ONCE A WEEK 12 capsule 3 furosemide (Lasix) 40 MG tablet Take 1 tablet (40 mg) by mouth Daily 30 tablet 5 glucose blood (FREESTYLE TEST STRIPS) test strip 1 each by Other route Daily Use as instructed HYDROcodone-acetaminophen (Hilbert) 5-325 MG tablet Take 1 tablet by [...] hyperglycemia, with long-term current use of insulin ([facility]) - POCT Glycated hemoglobin, total Advised pt that his HgbA1c is significantly improved from 8.3 to 6.9 and is now considered controlled. Continue current medications. Will recheck in three months. Primary hypertension BP is much improved on recheck. Continue current medications as prescribed. Will continue to monitor. Morbid obesity ([facility]) Encouraged adequate protein intake. Continue to watch portion sizes. Stay hydrated. BMI 50.0-59.9, adult ([facility]) Encouraged pt to start some from of [...] (around 01/29/2025) for Diabetes. documented in this encounterSaint Francis Hospital & Health ServicesJaqetyclnp45-62-1837 History of Present illness Narrative* MEGGAN Lopez [...] eggs, protein bars, low carb breakfast options, [employer] salads. Does feel the CGM is helpful [...] Glucose Sensor (FreeStyle Jalil 3 Plus Sensor) [facility] 1 each every 14 (fourteen) days 6 each 3 ergocalciferol (Vitamin D2) 1.25 MG (69441 UT) capsule TAKE 1 CAPSULE BY MOUTH once a week 12 capsule 3 furosemide (Lasix) 40 MG tablet Take 1 tablet (40 mg) by mouth Daily 30 tablet 5 glucose blood (FREESTYLE TEST STRIPS) test strip 1 each by Other route Daily Use as instructed HYDROcodone-acetaminophen (Hilbert) 5-325 MG tablet Take 1 tablet by [...] off of the Metforminand Actos. Morbid obesity ([facility]) Pt has lost 8 pounds since his labs appointment, which is excellent. Encouraged portion control, decrease simple sugars and carbohydrates, gradually increase activity level. Aim for continued, gradual steady weight loss. BMI 50.0-59.9, adult ([facility]) See above. Type 2 diabetes mellitus with other specified complication, with long-term current use of insulin ([facility]) - insulin glargine-lixisenatide (Soliqua) 100-33 UNT-MCG/ML pen; Inject 20 Units under the skin in the morning. Inject before meals. See above. Follow up in about 2 months (around 11/01/2024) for Diabetes. documented in this encounterSaint Francis Hospital & Health ServicesUkztlflrvn37-58-8393 History of Present illness Narrative* MEGGAN Lopez [...] before bedtime. ergocalciferol (Vitamin D2) 1.25 MG (63213 UT) capsule TAKE 1 CAPSULE BY MOUTH once a week 12 capsule 3 furosemide (Lasix) 40 MG tablet Take 1 tablet (40 mg) by mouth Daily 30 tablet 5 glucose blood (FREESTYLE TEST STRIPS) test strip 1 each by Other route Daily Use as instructed HYDROcodone-acetaminophen (Hilbert) 5-325 MG tablet Take 1 tablet by [...] Date Balanoposthitis 10/13/2022 Cholelithiasis 03/2019 Diabetes mellitus ([facility] [facility]) History of being hospitalized 03/08/2024 Sepsis, Left Leg Cellulitis Hyperlipidemia ([facility]/HCC) Hypertension ([facility]/HCC) Obesity 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 Patient is seen for [id number] encounter today and has a current diagnosis [...] medication changes. Hypertension due to endocrine disorder ([facility]) - lisinopril 40 MG tablet; Take 1 [...] hyperglycemia, with long-term current use of insulin ([facility]) Encouraged him to continue to aim for healthy diet. Limit simple sugars. Intake adequate protein. Stay hydrated. Morbid obesity ([facility]) Pt has gained 11 pounds since his last appointment. Encouraged pt to aim for gradual weight loss. BMI 50.0-59.9, adult ([facility]) See above. Follow up in about 4 weeks (around 08/29/2024) for Diabetes, Hypertension. documented in this encounterSaint Francis Hospital & Health [id number] History of Present illness Narrative* MEGGAN Lopez [...] before bedtime. ergocalciferol (Vitamin D2) 1.25 MG (60087 UT) capsule TAKE 1 CAPSULE BY MOUTH once a week 12 capsule 3 glimepiride (Amaryl) 4 MG tablet Take 1 tablet (4 mg) by mouth in the morning. glucose blood (FREESTYLE TEST STRIPS) test strip 1 each by Other route Daily Use as instructed HYDROcodone-acetaminophen (Hilbert) 5-325 MG tablet Take 1 tablet by [...] Date Balanoposthitis 10/13/2022 Cholelithiasis 03/2019 Diabetes mellitus ([facility]/HCC) History of being hospitalized 03/08/2024 Sepsis, Left Leg Cellulitis Hyperlipidemia (CMS/HCC) Hypertension (CMS/HCC) Obesity Squamous cell carcinoma of penis ([facility]/HCC) 05/2022 Past Surgical History: Procedure Laterality Date [...] hyperglycemia, without long-term current use of insulin ([facility]) - Microalbumin / creatinine, urine ratio; Future [...] if needed at that time. Morbid obesity ([facility]) Encouraged portion control, decrease simple sugars and carbohydrates, gradually increase activity level. Aim for gradual steady weight loss. BMI 50.0-59.9, adult ([facility]) See above. Hypertension due to endocrine disorder ([facility]) - CBC and differential - Lipid panel [...] 06/06/2024) for Hypertension, Diabetes. documented in this encounterSaint Francis Hospital & Health [id number] History of Present illness Narrative* MEGGAN Lopez [...] before bedtime. ergocalciferol (Vitamin D2) 1.25 MG (61779 UT) capsule TAKE 1 CAPSULE BY MOUTH once a week 12 capsule 3 glimepiride (Amaryl) 4 MG tablet Take 1 tablet (4 mg) by mouth in the morning. glucose blood (FREESTYLE TEST STRIPS) test strip 1 each by Other route Daily Use as instructed HYDROcodone-acetaminophen (Hilbert) 5-325 MG tablet Take 1 tablet by [...] of lumbar region May need referral to programming specialist. Need to get current infection and his BP under control priorto doing any more to pursue additional treatment for his back. He voiced understanding. Follow up for Appointment As Scheduled. documented in this encounterNOMissouri Southern [id number] Telephone encounter Note* Telephone Encounter - Chioma Webb - 04/10/2024 9:00 AM EST Patient was recently seen by carolyn. He called stating that his leg is getting slightly more red. Heis going to be running out of antibiotics by the weekend. He didn't know if he should need more antibiotics or what he should do next for this. NOMS [id number] Miscellaneous Notes* Telephone Encounter - Chioma Webb - 04/10/2024 9:00 AM EST Patient was recently seen by carolyn. He called stating that his leg is getting slightly more red. Heis going to be running out of antibiotics by the weekend. He didn't know if he should need more antibiotics or what he should do next for this. documented in this encounterSaint Francis Hospital & Health [id number] History of Present illness Narrative* MEGGAN Lopez [...] a day. ergocalciferol (Vitamin D2) 1.25 MG (11312 UT) capsule TAKE 1 CAPSULE BY MOUTH once a week 12 capsule 3 glimepiride (Amaryl) 4 MG tablet Take 1 tablet (4 mg) by mouth in the morning. glucose blood (FREESTYLE TEST STRIPS) test strip 1 each by Other route Daily Use as instructed HYDROcodone-acetaminophen (Hilbert) 5-325 MG tablet Take 1 tablet by [...] Date Balanoposthitis 10/13/2022 Cholelithiasis 03/2019 Diabetes mellitus ([facility]/HCC) History of being hospitalized 03/08/2024 Sepsis, Left [...] complication, without long-term current use of insulin ([facility]) - POCT Glycated hemoglobin, total Advised [...] (around 05/02/2024) for Hypertension. documented in this encounterSaint Francis Hospital & Health [id number] Progress note Author Carolyn Bautista [facility] HospitalNote Date/TimeJanuary 2024 2:12pm [place] [address] Wound Center Provider Note Signed Patient: Juan Bean JR MR#: [id number] : 1965 Acct:[id number] Age/Sex: 59 / M Copies to: SHAHZAD Thurston PA-C~ HPI Date of Visit Date of Visit: Date of Service: 04/02/2024 Time of Service: 14:09 Narrative HPI: 03/19/2024-Juan is a 59-year-old male who presents to [facility] wound center for evaluation and treatment of ulcers to the left lower leg and left dorsal foot. Patient was recently admitted here at [facility] due to cellulitis of the left lower [...] 2 weeks. 04/02/2024- Mr. Bean presents to [facility] wound center for follow up evaluation and [...] start?: Early March 2024 Mode of Arrival/ Manager Performance: Personal vehicle Assistive Device Used Today: Cane Lives with:: Alone Appetite Description: Within Normal Limits Who helps w/ dressing change?: Family Smoking Status: Former smoker [facility] Medical History (Updated 04/02/24 @ 08:24 [...] Appearance: Beefy Red, Epithelial Tissue or Bridge, Gibbs and Yellow Percent of Wound Bed Granulated/Red: [...] <Electronically signed by SHAHZAD Bautista> 04/02/24 1412 [facility] Work Phone: 1(389) 287-427301-27-2025 Radiology [facility] Main [place] [address] [place], [place] [id number] Ultrasound Report Signed Patient: Juan Bean JR MR#: [id number] : 1965 Acct:[id number] Age/Sex: 59 / M ADM Date: 5 Loc: Room: Type: [facility] Attending Dr: Carolyn Bautista APRN Ordering Provider: [...] MD 04/02/24 1527 Signed By: 04/02/24 1530 [facility] Work Phone: 1(856) 723-602401-27-[address] [address] Wound Center Provider Note Signed Patient: Juan Bean JR MR#: [id number] : 1965 Acct:[id number] Age/Sex: 59 / M Copies to: SHAHZAD Thurston PA-C~ HPI Date of Visit Date of Visit: Date of Service: 04/02/2024 Time of Service: 14:09 Narrative HPI: 03/19/2024-Juan is a 59-year-old male who presents to [facility] wound center for evaluation and treatment of ulcers to the left lower leg and left dorsal foot. Patient was recently admitted here at [facility] due to cellulitis of the left lower [...] 2 weeks. 04/02/2024- Mr. Bean presents to [facility] wound center for follow up evaluation and [...] start?: Early March 2024 Mode of Arrival/ Manager Performance: Personal vehicle Assistive Device Used Today: Cane Lives with:: Alone Appetite Description: Within Normal Limits Who helps w/ dressing change?: Family Smoking Status: Former smoker [facility] Medical History (Updated 04/02/24 @ 08:24 [...] Appearance: Beefy Red, Epithelial Tissue or Bridge, Gibbs and Yellow Percent of Wound Bed Granulated/Red: [...] APRN DD/ 1409 Signed By: 04/02/24 1412 [facility]01-17-2025 Telephone encounter Note* Telephone Encounter - MEGGAN Lopez - 03/23/2024 8:25 AM EST Augmentin sent in for pt. [facility] [id number] Miscellaneous Notes* Telephone Encounter - MEGGAN Lopez [...] out ofantibiotics. David Schwartz documented in this encounterNOMissouri Southern [id number] Telephone encounter Note* Telephone Encounter - Rosario Sutherland - 03/22/2024 2:44 PM EST Lt leg is looking better but still has reddness to it. He'd like to have more antibiotics, PT states the hospital told him it would take 10 days to get better but he hasn't been homr 10days in out ofantibiotics. David Schwartz [facility] [id number] History of Present illness Narrative* MEGGAN Lopez - 03/19/2024 3:30 PM EST Images from the original note were not included. Subjective Patient ID: Juan Bean is a 59 y.o. male who presents for [facility] follow up. Flowsheet Row Patient Outreach from 03/15/2024 in [facility] with Elizabeth Nevarez LPN Hospital Information ED, Hospital or Retirement Facility Discharge? Hospital Patient has been contacted within two business days of discharge Yes Diagnosis Cellulitis, bacteremia, hypophosphatemia, hypomagnesemia, sepsis Discharge Date 03/14/24 Discharged To: Home Setting [transferred from [facility]] Discharge Hospital [facility] Engagement Call Start Time 1410 Medications [...] a day. ergocalciferol (Vitamin D2) 1.25 MG (13595 UT) capsule TAKE 1 CAPSULE BY MOUTH once a week 12 capsule 3 glimepiride (Amaryl) 4 MG tablet Take 1 tablet (4 mg) by mouth in the morning. glucose blood (FREESTYLE TEST STRIPS) test strip 1 each by Other route Daily Use as instructed HYDROcodone-acetaminophen (Hilbert) 5-325 MG tablet Take 1 tablet by [...] History: Diagnosis Date Cholelithiasis 03/2019 Diabetes mellitus ([facility]/HCC) History of being hospitalized 03/08/2024 Sepsis, Left Leg Cellulitis Hyperlipidemia (CMS/HCC) Hypertension (CMS/HCC) Obesity Squamous cell carcinoma of penis ([facility]/HCC) 05/2022 Past Surgical History: Procedure Laterality Date [...] for Appointment As Scheduled. documented in this encounterSaint Francis Hospital & Health [id number] Progress note Author Carolyn Bautista [facility] HospitalNote Date/TimeJanuary 2024 8:55am [place] [address] Wound Center Provider Note Signed Patient: Juan Bean JR MR#: [id number] : 1965 Acct:[id number] Age/Sex: 59 / M Copies to: SHAHZAD Thurston PA-C~ HPI Date of Visit Date of Visit: Date of Service: 03/19/2024 Time of Service: 08:41 Narrative HPI: 03/19/2024-Juan is a 59-year-old male who presents to [facility] wound center for evaluation and treatment of ulcers to the left lower leg and left dorsal foot. Patient was recently admitted here at [facility] due to cellulitis of the left lower [...] start?: Early March 2024 Mode of Arrival/ Manager Performance: Personal vehicle Assistive Device Used Today: Cane Lives with:: Alone Appetite Description: Within Normal Limits Who helps w/ dressing change?: Family Smoking Status: Former smoker [facility] Medical History (Updated 03/19/24 @ 08:43 [...] Appearance: Beefy Red, Epithelial Tissue or Bridge, Gibbs and Yellow Percent of Wound Bed Granulated/Red: 90 Percent of Devitalized: 10 Length (cm): 19.5 Width (cm): 11.0 Depth (cm): 0.1 CM Sq: 214.500 Surrounding Tissue Appearance: Hyperpigmented Surrounding Tissue Temp: Warm Drainage Amount: Moderate Drainage Description: Serosanguineous Drainage Odor: No Odor Left Foot: Type: Ulcer 2nd Infection Thickness: Partial Bed Appearance: Beefy Red, Gibbs and Yellow Percent of Wound Bed Granulated/Red: [...] <Electronically signed by SHAHZAD Bautista> 03/19/24 0855 [facility] Work Phone: 1([phone]) 401-719801-13-2025 [place] [address] Wound Center Provider Note Signed Patient: Juan Bean JR MR#: [id number] : 1965 Acct:[id number] Age/Sex: 59 / M Copies to: SHAHZAD Thurston PA-C~ HPI Date of Visit Date of Visit: Date of Service: 03/19/2024 Time of Service: 08:41 Narrative HPI: 03/19/2024-Juan is a 59-year-old male who presents to [facility] wound center for evaluation and treatment of ulcers to the left lower leg and left dorsal foot. Patient was recently admitted here at [facility] due to cellulitis of the left lower [...] start?: Early March 2024 Mode of Arrival/ Manager Performance: Personal vehicle Assistive Device Used Today: Cane Lives with:: Alone Appetite Description: Within Normal Limits Who helps w/ dressing change?: Family Smoking Status: Former smoker [facility] Medical History (Updated 03/19/24 @ 08:43 [...] Appearance: Beefy Red, Epithelial Tissue or Bridge, Gibbs and Yellow Percent of Wound Bed Granulated/Red: 90 Percent of Devitalized: 10 Length (cm): 19.5 Width (cm): 11.0 Depth (cm): 0.1 CM Sq: 214.500 Surrounding Tissue Appearance: Hyperpigmented Surrounding Tissue Temp: Warm Drainage Amount: Moderate Drainage Description: Serosanguineous Drainage Odor: No Odor Left Foot: Type: Ulcer 2nd Infection Thickness: Partial Bed Appearance: Beefy Red, Gibbs and Yellow Percent of Wound Bed Granulated/Red: [...] Bautista APRN DD/ Signed By: 03/19/24 0855 [facility]01-08-2025 Discharge summary Author Jorge Luis Mcgregor [facility] HospitalNote Date/TimeJanuary 2024 2:13[place] [address] Discharge Summary Signed Patient: Juan Bean JR MR#: [id number] : 1965 Acct:[id number] Age/Sex: 59 / M Adm Date: 5 Loc: 3T Room: [address] [place] [address]: Jorge Luis Mcgregor MD Copies [...] HLD, morbidly obese?BMI 55.6 that [facility] for redness to his left leg [...] TABLET BY MOUTH ONCE DAILY Follow Up: [facility] [Outside] - 03/19/24 7:45 am (Call and pre register for this appointment by March 15 at 3pm. [phone]) Carolyn Verdin NP-C [Primary Care Provider] - [...] by Jorge Luis Mcgregor MD> 03/14/24 1413 [facility] Work Phone: 1(659) 595-669101-08-[address] [address] Discharge Summary Signed Patient: Juan Bean JR MR#: [id number] : 1965 Acct:[id number] Age/Sex: 59 / M Adm Date: 5 Loc: 3T Room: [address] [place] [address]: Jorge Luis Mcgregor MD Copies [...] to Orthopedic Surgery Routine Comment: Consulting Provider: [facility] Reason For Exam: Rule out leg [...] HLD, morbidly obese?BMI 55.6 that presented[facility] for redness to his left leg [...] TABLET BY MOUTH ONCE DAILY Follow Up: [facility] Wound Care [facility] [Outside] - 03/19/24 7:45 am (Call and pre register for this appointment by March 15 at 3pm. [phone]) Carolyn Verdin NP-C [Primary Care Provider] - [...] MD 03/14/24 11 58 Signed By: 03/14/[address] [place], [place] 5321801-08-2025 Progress note Author Calvin Melanie [facility] HospitalNote Date/TimeJanuary 2024 10:33am [place] [address] Infect. Disease Progress Note Signed Patient: Juan Bean JR MR#: [id number] : 1965 Acct:[id number] Age/Sex: 59 / M Adm Date: 5 Loc: Room: [address] [place] [address] Type: ADM IN Attending Dr: Jorge Luis [...] 5 Mg Tablet) 5 mg PO QAM [facility] Stop: 03/13/25 08:59 Last Admin: 03/14/24 08:14 Dose: 5 mg Atorvastatin Calcium (Atorvastatin 20 Mg Tablet) 20 mg PO QPM [facility] Stop: 03/09/25 20:59 Last Admin: 03/13/24 22:02 Dose: Not Given Dextrose (Dextrose 50% In Water 25 Gm/50 Ml Syringe) 0 gm IV-PUSH PRN PRN PRN Reason: Hypoglycemia Stop: 03/09/25 01:50 Enoxaparin Sodium (Enoxaparin 40 Mg/0.4 Ml Syringe) 40 mg SUBCUT BID [facility] Stop: 03/09/25 20:59 Last Admin: 03/14/24 08:12 Dose: 40 mg Ergocalciferol (Ergocalciferol 1,250 Mcg (50,000 Units) Capsule) 1,250 mcg PO Th@0900 [facility] Stop: 03/16/25 08:59 Glimepiride (Glimepiride 4 Mg Tablet) 4 mg PO BID.WITH.MEALS [facility] Stop: 03/09/25 16:59 Last Admin: 03/14/24 08:14 Dose: 4 mg Glucose (Dextrose 40% Gel 15 Gm Tube) 0 gm PO PRN PRN PRN Reason: Hypoglycemia Stop: 03/09/25 01:50 Guaifenesin (Guaifenesin Syrup 10 Ml Udc) 20 ml PO Q6H PRN PRN Reason: Cough Stop: 03/09/25 01:45 Ceftaroline Fosamil (Teflaro) 600 mg in 100 mls @ 200 mls/hr IV Q12H [facility] Last Infusion: 03/14/24 05:40 Dose: Infused Insulin Aspart (Insulin Aspart 300 Units/3 Ml) 0 units SUBCUT TID.WM.HS [facility]; Protocol Stop: 03/09/25 07:59 Last Admin: 03/14/24 08:12 Dose: 3 units Insulin Aspart (Insulin Aspart 300 Units/3 Ml) 5 units SUBCUT TID.AC [facility] Stop: 03/10/25 11:29 Last Admin: 03/14/24 08:12 Dose: 5 units Lisinopril (Lisinopril 20 Mg Tablet) 20 mg PO QPM [facility] Stop: 03/09/25 20:59 Last Admin: 03/13/24 22:00 Dose: 20 mg Magnesium Oxide (Magnesium Oxide 400 Mg Tablet) 400 mg PO DAILY [facility] Stop: 03/10/25 09:59 Last Admin: 03/14/24 08:14 Dose: 400 mg Melatonin (Melatonin 5 Mg Tablet) 5 mg PO QHS PRN PRN Reason: Insomnia Stop: 03/09/25 01:45 Last Admin: 03/13/24 22:01 Dose: 5 mg Metformin HCl (Metformin 500 Mg Tablet) 1,000 mg PO BID.WITH.MEALS [facility] Stop: 03/09/25 16:59 Last Admin: 03/14/24 08:14 Dose: 1,000 mg Metoprolol Succinate (Metoprolol Succinate 50 Mg Tab.Er.24h) 50 mg PO QAM [facility] Stop: 03/10/25 08:59 Last Admin: 03/14/24 08:14 [...] signed by MD Calvin Navarro> 03/14/24 1033 [facility] Work Phone: 1([phone]) 862-214801-08-2025 [place] [address] Infect. Disease Progress Note Signed Patient: Juan Bean JR MR#: [id number] : 1965 Acct:[id number] Age/Sex: 59 / M Adm Date: 5 Loc: 3T Room: [address] [place] [address] Type: ADM IN Attending Dr: Jorge Luis [...] 5 Mg Tablet) 5 mg PO QAM [facility] Stop: 03/13/25 08:59 Last Admin: 03/14/24 08:14 Dose: 5 mg Atorvastatin Calcium (Atorvastatin 20 Mg Tablet) 20 mg PO QPM [facility] Stop: 03/09/25 20:59 Last Admin: 03/13/24 22:02 Dose: Not Given Dextrose (Dextrose 50% In Water 25 Gm/50 Ml Syringe) 0 gm IV-PUSH PRN PRN PRN Reason: Hypoglycemia Stop: 03/09/25 01:50 Enoxaparin Sodium (Enoxaparin 40 Mg/0.4 Ml Syringe) 40 mg SUBCUT BID [facility] Stop: 03/09/25 20:59 Last Admin: 03/14/24 08:12 Dose: 40 mg Ergocalciferol (Ergocalciferol 1,250 Mcg (50,000 Units) Capsule) 1,250 mcg PO Th@0900 [facility] Stop: 03/16/25 08:59 Glimepiride (Glimepiride 4 Mg Tablet) 4 mg PO BID.WITH.MEALS [facility] Stop: 03/09/25 16:59 Last Admin: 03/14/24 08:14 Dose: 4 mg Glucose (Dextrose 40% Gel 15 Gm Tube) 0 gm PO PRN PRN PRN Reason: Hypoglycemia Stop: 03/09/25 01:50 Guaifenesin (Guaifenesin Syrup 10 Ml Udc) 20 ml PO Q6H PRN PRN Reason: Cough Stop: 03/09/25 01:45 Ceftaroline Fosamil (Teflaro) 600 mg in 100 mls @ 200 mls/hr IV Q12H [facility] Last Infusion: 03/14/24 05:40 Dose: Infused Insulin Aspart (Insulin Aspart 300 Units/3 Ml) 0 units SUBCUT TID.WM.HS [facility]; Protocol Stop: 03/09/25 07:59 Last Admin: 03/14/24 08:12 Dose: 3 units Insulin Aspart (Insulin Aspart 300 Units/3 Ml) 5 units SUBCUT TID.AC [facility] Stop: 03/10/25 11:29 Last Admin: 03/14/24 08:12 [...] 500 Mg Tablet) 1,000 mg PO BID.WITH.MEALS [facility] Stop: 03/09/25 16:59 Last Admin: 03/14/24 08:14 Dose: 1,000 mg Metoprolol Succinate (Metoprolol Succinate 50 Mg Tab.Er.24h) 50 mg PO QAM [facility] Stop: 03/10/25 08:59 Last Admin: 03/14/24 08:14 [...] 10 Ml Syringe) 0 ml IV-PUSH QSHIFT [facility] Stop: 03/09/25 05:59 Last Admin: 03/14/24 05:03 [...] MD 03/14/24 1030 Signed By: 03/14/24 1033 [facility]01-07-2025 Progress note Author Jorge Luis Mcgregor [facility] HospitalNote Date/TimeJanuary 2024 1:11pmThe[place] [id number] Hospitalist Progress Note Signed Patient: Juan Bean JR MR#: [id number] : 1965 Acct:[id number] Age/Sex: 59 / M Adm Date: 5 Loc: Room: [address] [place] [address] Type: ADM IN Attending Dr: Jorge Luis [...] Ml SUBCUT 03/09/25 07:59 3 units TID.WM.HS [facility] Administration Protocol Insulin Aspart 5 units 03/10/24 [...] by Jorge Luis Mcgregor MD> 03/13/24 1311 [facility] Work Phone: 1(657) 789-933801-07-2025 Progress note Author Calvin Navarro [facility] HospitalNote Date/TimeJanuary 2024 12:43pm [place] [address] Infect. Disease Progress Note Signed Patient: Juan Bean JR MR#: [id number] : 1965 Acct:[id number] Age/Sex: 59 / M Adm Date: 5 Loc: Room: [address] [place] [address] Type: ADM IN Attending Dr: Jorge Luis [...] (50,000 Units) Capsule) 1,250 mcg PO Th@0900 [facility] Stop: 03/16/25 08:59 Glimepiride (Glimepiride 4 Mg Tablet) 4 mg PO BID.WITH.MEALS [facility] Stop: 03/09/25 16:59 Last Admin: 03/13/24 08:18 Dose: 4 mg Glucose (Dextrose 40% Gel 15 Gm Tube) 0 gm PO PRN PRN PRN Reason: Hypoglycemia Stop: 03/09/25 01:50 Guaifenesin (Guaifenesin Syrup 10 Ml Udc) 20 ml PO Q6H PRN PRN Reason: Cough Stop: 03/09/25 01:45 Ceftaroline Fosamil (Teflaro) 600 mg in 100 mls @ 200 mls/hr IV Q12H [facility] Last Admin: 03/13/24 05:56 Dose: 200 mls/hr Insulin Aspart (Insulin Aspart 300 Units/3 Ml) 0 units SUBCUT TID.WM.HS [facility]; Protocol Stop: 03/09/25 07:59 Last Admin: 03/13/24 08:18 Dose: 3 units Insulin Aspart (Insulin Aspart 300 Units/3 Ml) 5 units SUBCUT TID.AC [facility] Stop: 03/10/25 11:29 Last Admin: 03/13/24 08:19 Dose: 5 units Lisinopril (Lisinopril 20 Mg Tablet) 20 mg PO QPM [facility] Stop: 03/09/25 20:59 Last Admin: 03/12/24 21:33 Dose: 20 mg Magnesium Oxide (Magnesium Oxide 400 Mg Tablet) 400 mg PO DAILY [facility] Stop: 03/10/25 09:59 Last Admin: 03/13/24 08:17 Dose: 400 mg Melatonin (Melatonin 5 Mg Tablet) 5 mg PO QHS PRN PRN Reason: Insomnia Stop: 03/09/25 01:45 Last Admin: 03/12/24 21:33 Dose: 5 mg Metformin HCl (Metformin 500 Mg Tablet) 1,000 mg PO BID.WITH.MEALS [facility] Stop: 03/09/25 16:59 Last Admin: 03/13/24 08:18 Dose: 1,000 mg Metoprolol Succinate (Metoprolol Succinate 50 Mg Tab.Er.24h) 50 mg PO QAM [facility] Stop: 03/10/25 08:59 Last Admin: 03/13/24 08:17 [...] signed by MD Calvin Navarro> 03/13/24 1243 [facility] Work Phone: 1(121) 128-215901-07-2025 [place] [address] Hospitalist Progress Note Signed Patient: Juan Bean JR MR#: [id number] : 1965 Acct:[id number] Age/Sex: 59 / M Adm Date: 5 Loc: Room: [address] [place] [address] Type: ADM IN Attending Dr: Jorge Luis [...] MD 03/13/24 13 10 Signed By: 03/13/24 [facility]1 [facility]01-07-2025 [facility] [address] [place] [address] Infect. Disease Progress Note Signed Patient: Juan Bean JR MR#: [id number] : 1965 Acct:[id number] Age/Sex: 59 / M Adm Date: 5 Loc: 3T Room: [address] [place] [address] Type: ADM IN Attending Dr: Jorge Luis [...] 5 Mg Tablet) 5 mg PO QAM [facility] Stop: 03/13/25 08:59 Last Admin: 03/13/24 08:18 Dose: 5 mg Atorvastatin Calcium (Atorvastatin 20 Mg Tablet) 20 mg PO QPM [facility] Stop: 03/09/25 20:59 Last Admin: 03/12/24 21:33 Dose: 20 mg Dextrose (Dextrose 50% In Water 25 Gm/50 Ml Syringe) 0 gm IV-PUSH PRN PRN PRN Reason: Hypoglycemia Stop: 03/09/25 01:50 Enoxaparin Sodium (Enoxaparin 40 Mg/0.4 Ml Syringe) 40 mg SUBCUT BID MARI Stop: 03/09/25 20:59 Last Admin: 03/13/24 08:18 Dose: 40 mg Ergocalciferol (Ergocalciferol 1,250 Mcg (50,000 Units) Capsule) 1,250 mcg PO Th@0900 [facility] Stop: 03/16/25 08:59 Glimepiride (Glimepiride 4 Mg Tablet) 4 mg PO BID.WITH.MEALS [facility] Stop: 03/09/25 16:59 Last Admin: 03/13/24 08:18 Dose: 4 mg Glucose (Dextrose 40% Gel 15 Gm Tube) 0 gm PO PRN PRN PRN Reason: Hypoglycemia Stop: 03/09/25 01:50 Guaifenesin (Guaifenesin Syrup 10 Ml Udc) 20 ml PO Q6H PRN PRN Reason: Cough Stop: 03/09/25 01:45 Ceftaroline Fosamil (Teflaro) 600 mg in 100 mls @ 200 mls/hr IV Q12H [facility] Last Admin: 03/13/24 05:56 Dose: 200 mls/hr Insulin Aspart (Insulin Aspart 300 Units/3 Ml) 0 units SUBCUT TID.WM.HS [facility]; Protocol Stop: 03/09/25 07:59 Last Admin: 03/13/24 08:18 Dose: 3 units Insulin Aspart (Insulin Aspart 300 Units/3 Ml) 5 units SUBCUT TID.AC [facility] Stop: 03/10/25 11:29 Last Admin: 03/13/24 08:19 Dose: 5 units Lisinopril (Lisinopril 20 Mg Tablet) 20 mg PO QPM [facility] Stop: 03/09/25 20:59 Last Admin: 03/12/24 21:33 Dose: 20 mg Magnesium Oxide (Magnesium Oxide 400 Mg Tablet) 400 mg PO DAILY [facility] Stop: 03/10/25 09:59 Last Admin: 03/13/24 08:17 Dose: 400 mg Melatonin (Melatonin 5 Mg Tablet) 5 mg PO QHS PRN PRN Reason: Insomnia Stop: 03/09/25 01:45 Last Admin: 03/12/24 21:33 Dose: 5 mg Metformin HCl (Metformin 500 Mg Tablet) 1,000 mg PO BID.WITH.MEALS [facility] Stop: 03/09/25 16:59 Last Admin: 03/13/24 08:18 Dose: 1,000 mg Metoprolol Succinate (Metoprolol Succinate 50 Mg Tab.Er.24h) 50 mg PO QAM [facility] Stop: 03/10/25 08:59 Last Admin: 03/13/24 08:17 [...] 10 Ml Syringe) 0 ml IV-PUSH QSHIFT [facility] Stop: 03/09/25 05:59 Last Admin: 03/13/24 06:45 [...] MD 03/13/24 1240 Signed By: 03/13/24 1243 [facility]01-06-2025 Progress note Author Jorge Luis Mcgregor [facility] Date/TimeJanuary 2024 10:54am [place] [id number] Hospitalist Progress Note Signed Patient: Juan Bean JR MR#: [id number] : 1965 Acct:[id number] Age/Sex: 59 / M Adm Date: 5 Loc: 3T Room: [address] [place] [address] Type: ADM IN Attending Dr: Jorge Luis [...] signed by Jorge Luis Mcgregor MD> 03/12/24 1059 [facility] Work Phone: 1(870) 156-847301-06-2025 Consult note Author Calvin Navarro [facility] Date/TimeJanuary 2024 10:25am [place] [address] Infect. Disease Consult Note Signed Patient: Juan Bean JR MR#: [id number] : 1965 Acct:[id number] Age/Sex: 59 / M Adm Date: 5 Loc: Room: [address] [place] [address] Type: ADM IN Attending Dr: Jorge Luis [...] diabetes and morbid obesity who came from [facility] for redness on his left leg. He was given vancomycin and Zosyn and apparently received this cath [facility] as well. From March 07 are [...] negative unless noted below or in HPI [facility] Medical History (Updated 03/12/24 @ 10:24 [...] (50,000 Units) Capsule) 1,250 mcg PO Th@0900 [facility] Stop: 03/16/25 08:59 Glimepiride (Glimepiride 4 Mg Tablet) 4 mg PO BID.WITH.MEALS [facility] Stop: 03/09/25 16:59 Last Admin: 03/12/24 08:04 Dose: 4 mg Glucose (Dextrose 40% Gel 15 Gm Tube) 0 gm PO PRN PRN PRN Reason: Hypoglycemia Stop: 03/09/25 01:50 Guaifenesin (Guaifenesin Syrup 10 Ml Udc) 20 ml PO Q6H PRN PRN Reason: Cough Stop: 03/09/25 01:45 Piperacillin Sod/Tazobactam Sod (Zosyn) 4.5 gm in 100 mls @ 200 mls/hr IV Q6H [facility] Last Admin: 03/12/24 04:19 Dose: 200 mls/hr Vancomycin HCl (Vancomycin) 1 gm in 250 mls @ 250 mls/hr IV Q8H [facility] Last Admin: 03/12/24 08:05 Dose: 250 mls/hr Insulin Aspart (Insulin Aspart 300 Units/3 Ml) 0 units SUBCUT TID.WM.HS [facility]; Protocol Stop: 03/09/25 07:59 Last Admin: 03/12/24 08:04 Dose: 4 units Insulin Aspart (Insulin Aspart 300 Units/3 Ml) 5 units SUBCUT TID.AC [facility] Stop: 03/10/25 11:29 Last Admin: 03/12/24 08:05 Dose: 5 units Lisinopril (Lisinopril 20 Mg Tablet) 20 mg PO QPM [facility] Stop: 03/09/25 20:59 Last Admin: 03/11/24 21:18 Dose: 20 mg Magnesium Oxide (Magnesium Oxide 400 Mg Tablet) 400 mg PO DAILY [facility] Stop: 03/10/25 09:59 Last Admin: 03/12/24 08:04 Dose: 400 mg Melatonin (Melatonin 5 Mg Tablet) 5 mg PO QHS PRN PRN Reason: Insomnia Stop: 03/09/25 01:45 Last Admin: 03/10/24 21:13 Dose: 5 mg Metformin HCl (Metformin 500 Mg Tablet) 1,000 mg PO BID.WITH.MEALS [facility] Stop: 03/09/25 16:59 Last Admin: 03/12/24 08:04 Dose: 1,000 mg Metoprolol Succinate (Metoprolol Succinate 50 Mg Tab.Er.24h) 50 mg PO QAM [facility] Stop: 03/10/25 08:59 Last Admin: 03/12/24 08:04 [...] 10 Ml Syringe) 0 ml IV-PUSH QSHIFT [facility] Stop: 03/09/25 05:59 Last Admin: 03/12/24 05:15 [...] signed by MD Calvin Navarro> 03/12/24 1025 [facility] Work Phone: [phone] [place] [address] Hospitalist Progress Note Signed Patient: Juan Bean JR MR#: [id number] : 1965 Acct:[id number] Age/Sex: 59 / M Adm Date: 5 Loc: 3T Room: [address] [place] [address] Type: ADM IN Attending Dr: Jorge Luis [...] MD 03/12/24 10 48 Signed By: 03/12/[address] [place], [place] 7743201-06-2025 [place] [address] Infect. Disease Consult Note Signed Patient: Juan Bean JR MR#: [id number] : 1965 Acct:[id number] Age/Sex: 59 / M Adm Date: 5 Loc: Room: [address] [place] [address] Type: ADM IN Attending Dr: Jorge Luis [...] diabetes and morbid obesity who came from [facility] for redness on his left leg. He was given vancomycin and Zosyn and apparently received this cath [facility] as well. From March 07 are [...] negative unless noted below or in HPI [facility] Medical History (Updated 03/12/24 @ 10:24 [...] 2.5 Mg Tablet) 2.5 mg PO QAM [facility] Stop: 03/09/25 12:59 Last Admin: 03/12/24 08:04 Dose: 2.5 mg Atorvastatin Calcium (Atorvastatin 20 Mg Tablet) 20 mg PO QPM [facility] Stop: 03/09/25 20:59 Last Admin: 03/11/24 21:18 Dose: 20 mg Dextrose (Dextrose 50% In Water 25 Gm/50 Ml Syringe) 0 gm IV-PUSH PRN PRN PRN Reason: Hypoglycemia Stop: 03/09/25 01:50 Enoxaparin Sodium (Enoxaparin 40 Mg/0.4 Ml Syringe) 40 mg SUBCUT BID [facility] Stop: 03/09/25 20:59 Last Admin: 03/12/24 08:04 Dose: 40 mg Ergocalciferol (Ergocalciferol 1,250 Mcg (50,000 Units) Capsule) 1,250 mcg PO Th@0900 [facility] Stop: 03/16/25 08:59 Glimepiride (Glimepiride 4 Mg Tablet) 4 mg PO BID.WITH.MEALS [facility] Stop: 03/09/25 16:59 Last Admin: 03/12/24 08:04 Dose: 4 mg Glucose (Dextrose 40% Gel 15 Gm Tube) 0 gm PO PRN PRN PRN Reason: Hypoglycemia Stop: 03/09/25 01:50 Guaifenesin (Guaifenesin Syrup 10 Ml Udc) 20 ml PO Q6H PRN PRN Reason: Cough Stop: 03/09/25 01:45 Piperacillin Sod/Tazobactam Sod (Zosyn) 4.5 gm in 100 mls @ 200 mls/hr IV Q6H [facility] Last Admin: 03/12/24 04:19 Dose: 200 mls/hr Vancomycin HCl (Vancomycin) 1 gm in 250 mls @ 250 mls/hr IV Q8H [facility] Last Admin: 03/12/24 08:05 Dose: 250 mls/hr Insulin Aspart (Insulin Aspart 300 Units/3 Ml) 0 units SUBCUT TID.WM.HS [facility]; Protocol Stop: 03/09/25 07:59 Last Admin: 03/12/24 08:04 Dose: 4 units Insulin Aspart (Insulin Aspart 300 Units/3 Ml) 5 units SUBCUT TID.AC [facility] Stop: 03/10/25 11:29 Last Admin: 03/12/24 08:05 Dose: 5 units Lisinopril (Lisinopril 20 Mg Tablet) 20 mg PO QPM [facility] Stop: 03/09/25 20:59 Last Admin: 03/11/24 21:18 [...] 500 Mg Tablet) 1,000 mg PO BID.WITH.MEALS [facility] Stop: 03/09/25 16:59 Last Admin: 03/12/24 08:04 Dose: 1,000 mg Metoprolol Succinate (Metoprolol Succinate 50 Mg Tab.Er.24h) 50 mg PO QAM [facility] Stop: 03/10/25 08:59 Last Admin: 03/12/24 08:04 [...] 10 Ml Syringe) 0 ml IV-PUSH QSHIFT [facility] Stop: 03/09/25 05:59 Last Admin: 03/12/24 05:15 [...] MD 03/12/24 1011 Signed By: 03/12/24 1025 [facility]01-05-2025 Progress note Author Gomez Sunshine [facility] Date/TimeJanuary 2024 10:12am [place] [address] Hospitalist Progress Note Signed Patient: Juan Bean JR MR#: [id number] : 1965 Acct:[id number] Age/Sex: 59 / M Adm Date: Loc: 3T Room: [address] [place] [address] Type: ADM IN Attending Dr: Gomez Sunshine [...] signed by Gomez Sunshine MD> 03/11/24 1012 [facility] Work Phone: [phone] 193-896201-05-2025 [place] [address] Hospitalist Progress Note Signed Patient: Juan Bean JR MR#: [id number] : 1965 Acct:[id number] Age/Sex: 59 / M Adm Date: 5 Loc: Room: [address] [place] [address] Type: ADM IN Attending Dr: Gomez Sunshine [...] 03/11/24 09:06 Vancomycin IV 250 mls/hr Q8H [facility] Administration Insulin Aspart 0 units 03/09/24 08:00 [...] MD 03/11/24 1011 Signed By: 03/11/24 1012 [facility]01-05-2025 Progress note Author Brett Chang [facility] Date/TimeJanuary 2024 8:01[place] [id number] Orthopedic Progress Note Signed Patient: Juan Bean MR#: [id number] : 1965 Acct:[id number] Age/Sex: 59 / M Adm Date: 5 Loc: 3T Room: [address] [place] [address] Type: ADM IN Attending Dr: Gomez Sunshine [...] signed by MD Brett Chang> 03/11/24 0801 [facility] Work Phone: [phone] [place] [id number] Orthopedic Progress Note Signed Patient: Juan Bean JR MR#: [id number] : 1965 Acct:[id number] Age/Sex: 59 / M Adm Date: 5 Loc: 3T Room: [address] [place] [address] Type: ADM IN Attending Dr: Gomez Sunshine [...] MD 03/11/24 08 Signed By: 03/11/24 08 [facility]01-04-2025 Progress note Author Gomez Sunshine [facility] Date/TimeJanuary 2024 10:00am [place] [address] Hospitalist Progress Note Signed Patient: Juan Bean JR MR#: [id number] : 1965 Acct:[id number] Age/Sex: 59 / M Adm Date: 5 Loc: 3T Room: [address] [place] [address] Type: ADM IN Attending Dr: Gomez Sunshine [...] signed by Gomez Sunshine MD> 03/10/24 1000 [facility] Work Phone: [phone] [place] [address] Hospitalist Progress Note Signed Patient: Juan Bean JR MR#: [id number] : 1965 Acct:[id number] Age/Sex: 59 / M Adm Date: 5 Loc: Room: [address] [place] [address] Type: ADM IN Attending Dr: Gomez Sunshine [...] Sunshine MD 03/10/24 0956 Signed By: 03/10/[address] [place], [place] 1349301-04-2025 Consult note Author Brett Chang [facility] Date/TimeJanuary 2024 7:46[place] [address] Orthopedic Consult Note Signed Patient: Juan Bean JR MR#: [id number] : 1965 Acct:[id number] Age/Sex: 59 / M Adm Date: 5 Loc: Room: [address] [place] [address] Type: ADM IN Attending Dr: Gomez Sunshine [...] negative unless noted below or in HPI [facility] Medical History Back pain Chewing tobacco [...] Neut % (Auto) 82.8, Lymph % (Auto)8.2, [place] % (Auto) 8.2, Eos % (Auto) 0.6, Baso % (Auto) 0.2, Nucleat RBC Rel Count 0.1, Neut # (Auto) 8.7 H, Lymph # (Auto) 0.9 L, [place] # (Auto) 0.9 H, Eos # (Auto) [...] Appearance Clear, Urine pH 6.0, Ur Specific [place] 1.037H, Urine Protein 50 H, Urine Glucose [...] % (Auto) 89.3, Lymph % (Auto) 5.7, [place] % (Auto) 4.5, Eos % (Auto)0.0, Baso % (Auto) 0.5, Nucleat RBC Rel Count 0.3, Neut # (Auto) 12.4 H, Lymph #(Auto) 0.8 L, [place] # (Auto) 0.6, Eos # (Auto) 0.0, Baso # (Auto) 0.1, ESR 67 H,PT 14.3 H, INR 1.2, APTT 36.5, PHA Creatinine Clear 166.63, Sodium 131 L, Potassium 3.2 L, [id number] L, Carbon Dioxide 29.4, Anion Gap 10.8, [...] <Electronically signed by MD Brett Chang> 03/10/24 1887 [facility] Work Phone: [phone] 624-344701-04-2025 [place] [id number] Orthopedic Consult Note Signed Patient: Juan Bean JR MR#: [id number] : 1965 Acct:[id number] Age/Sex: 59 / M Adm Date: 5 Loc: 3T Room: [address] [place] [address] Type: ADM IN Attending Dr: Gomez Sunshine [...] negative unless noted below or in HPI [facility] Medical History Back pain Chewing tobacco [...] Neut % (Auto) 82.8, Lymph % (Auto)8.2, [place] % (Auto) 8.2, Eos % (Auto) 0.6, Baso % (Auto) 0.2, Nucleat RBC Rel Count 0.1, Neut # (Auto) 8.7 H, Lymph # (Auto) 0.9 L, [place] # (Auto) 0.9 H, Eos # (Auto) [...] Appearance Clear, Urine pH 6.0, Ur Specific [place] 1.037H, Urine Protein 50 H, Urine Glucose [...] % (Auto) 89.3, Lymph % (Auto) 5.7, [place] % (Auto) 4.5, Eos % (Auto)0.0, Baso % (Auto) 0.5, Nucleat RBC Rel Count 0.3, Neut # (Auto) 12.4 H, Lymph #(Auto) 0.8 L, [place] # (Auto) 0.6, Eos # (Auto) 0.0, Baso # (Auto) 0.1, ESR 67 H,PT 14.3 H, INR 1.2, APTT 36.5, PHA Creatinine Clear 166.63, Sodium 131 L, Potassium 3.2 L, Psjrmxvq48 L, Carbon Dioxide 29.4, Anion Gap 10.8, [...] MD 03/10/24 0740 Signed By: 03/10/24 0746 [facility]01-03-2025 Radiology Diagnostic study note [facility] Main [place] [address] [place] [address] CT Scan Report Signed Patient: Juan Bean JR MR#: [id number] : 1965 Acct:[id number] Age/Sex: 59 / M ADM Date: 5 Loc: Room: [address] [place] [address] Type: ADM IN Attending Dr: Gomez Sunshine [...] Tyrese Coon M.D.03/09/2024 7:51 PM Dictation Location: [place] [address] Transcribed By: GISSELL 03/09/241950 Dictated By: Tyrese Coon II, MD 03/09/241943 Signed By: 03/09/241950 [facility] Work Phone: [phone]) [phone] Progress note Author Gomez Sunshine [facility] Date/TimeJanuary 2024 12:24pm [place] [address] Hospitalist Progress Note Signed Patient: Juan Bean JR MR#: [id number] : 1965 Acct:[id number] Age/Sex: 59 / M Adm Date: 5 Loc: Room: [address] [place] [address] Type: ADM IN Attending Dr: Gomez Sunshine MD Copies to: ~ Date of Service: 03/09/2024 Subjective Subjective Narrative: Mr. Bean is a 59-year-old male with a PMH of HTN, T2DM, HLD, morbidly obese?BMI 55.6 that presentedto the [facility] for redness to his left leg [...] drinks a day. Denies illicit drug use. [facility] chart review?in the emergency room he [...] tachycardia with RBBB. Family requested transfer to [facility]. He was treated with vancomycin, Zosyn and 1 dose of ceftriaxone. With IV hydration overnight during his stay. He was transferred here to [facility] as inpatient to the [facility] telemetry floor. Exam Physical Exam Vital [...] 4 Mg Tablet PO 03/09/25 12:29 BID [facility] Glucose 0 gm 03/09/24 01:51 Dextrose 40% Gel 15 Gm Tube PO 03/09/25 01:50 PRN PRN Hypoglycemia Guaifenesin 20 ml 03/09/24 01:46 Guaifenesin Syrup 10 Ml Udc PO 03/09/25 01:45 Q6H PRN Cough Piperacillin Sod/Tazobactam Sod 4.5 gm in 100 mls @ 200 mls/hr 03/09/24 04:00 03/09/24 09:09 Zosyn IV Not Given Q6H [facility] Magnesium Sulfate 4 gm in 100 mls @ 25 mls/hr 03/09/24 09:15 03/09/24 09:29 Magnesium Sulf 4 Gm-*Swfi* IV 03/09/24 13:14 25 mls/hr ONCE ONE Administration Vancomycin HCl 1.25 gm/ 275 mls @ 183.333 mls/hr 03/09/24 12:30 Dextrose IV 03/09/25 12:29 Q12H [facility] Insulin Aspart 0 units 03/09/24 08:00 03/09/24 [...] 50 Mg Tab.Er.24h PO 03/10/25 08:59 QAM [facility] Non-Formulary Medication 1,000 mg 03/09/24 21:00 Metformin PO 03/09/25 20:59 BID [facility] Non-Formulary Medication 40 mg 03/09/24 21:00 Simvastatin [...] needed ? Venous Doppler BLE negative at [facility] ? Bibasilar atelectasis on chest x-ray ? Pep therapy Sepsis- likely due to cellulitis, septic workup received at [place] Cellulitis to LLE Lymphedema to LLE likely due to cellulitis - Blood culture x 1 with streptococcus on preliminary result, started on Vanco, pip/tazo at [facility], received one dose 2gm ceftriaxone on 03/07/24, preliminary culture results on [employer] with E-coli - Repeat blood cultures, CBC, BMP, Mag, ESR, CRP - Continue pip/tazo- pharmacy to dose - Echo was performed at [facility]- please obtain results Chronic conditions HTN- [...] <Electronically signed by Gomez Sunshine MD> 03/09/24 6066 [facility] Work Phone: 1(963) 973-120001-03-2025 [place] [id number] Hospitalist Progress Note Signed Patient: Juan Bean JR MR#: [id number] : 1965 Acct:[id number] Age/Sex: 59 / M Adm Date: 5 Loc: 3T Room: 3A6532-3 Type: ADM IN Attending Dr: Gomez Sunshine MD Copies to: ~ Date of Service: 03/09/2024 Subjective Subjective Narrative: Mr. Bean is a 59-year-old male with a PMH of HTN, T2DM, HLD, morbidly obese?BMI 55.6 that presentedto the [facility] for redness to his left leg [...] drinks a day. Denies illicit drug use. [facility] chart review?in the emergency room he [...] tachycardia with RBBB. Family requested transfer to [facility]. He was treated with vancomycin, Zosyn and 1 dose of ceftriaxone. With IV hydration overnight during his stay. He was transferred here to [facility] as inpatient to the [facility] telemetry floor. Exam Physical Exam Vital [...] 03/09/24 12:30 Dextrose IV 03/09/25 12:29 Q12H [facility] Insulin Aspart 0 units 03/09/24 08:00 03/09/24 08:46 Insulin Aspart 300 Units/3 Ml SUBCUT 03/09/25 07:59 2 units TID.WM.HS [facility] Administration Protocol Lisinopril 20 mg 03/09/24 21:00 Lisinopril 20 Mg Tablet PO 03/09/25 20:59 QPM [facility] Melatonin 5 mg 03/09/24 01:46 Melatonin 5 Mg Tablet PO 03/09/25 01:45 QHS PRN Insomnia Metoprolol Succinate 50 mg 03/10/24 09:00 Metoprolol Succinate 50 Mg Tab.Er.24h PO 03/10/25 08:59 QAM [facility] Non-Formulary Medication 1,000 mg 03/09/24 21:00 Metformin PO 03/09/25 20:59 BID [facility] Non-Formulary Medication 40 mg 03/09/24 21:00 Simvastatin PO 03/09/25 20:59 QPM [facility] Ondansetron HCl 4 mg 03/09/24 01:46 Ondansetron 4 Mg/2 Ml Vial IV-PUSH 03/09/25 01:45 Q6H PRN Nausea And Vomiting Oxycodone HCl 5 mg 03/09/24 01:46 Oxycodone Ir 5 Mg Tablet PO Q6HR PRN Pain Scale 4 - 7 Sodium Chloride 0 ml 03/09/24 06:00 03/09/24 06:39 Sodium Chloride 0.9 % 10 Ml Syringe IV-PUSH 03/09/25 05:59 10 ml QSHIFT [facility] Administration Vancomycin HCl 1 each 03/09/24 12:16 Vancomycin - Pharmacy Dosing 1 Each Miscell INTRAPERIT ONCE PRN ZZ.Pharmacy Consult Protocol A&P - Hospitalist Assessment/Plan (1) Sepsis: (2) Cellulitis: (3) Lymphedema: (4) Acute hypoxic respiratory failure: Plan Acute hypoxic respiratory failure ? Continue oxygen as needed, keep SpO2 greater than 90% ? Albuterol nebs as needed ? Venous Doppler BLE negative at [facility] ? Bibasilar atelectasis on chest x-ray ? Pep therapy Sepsis- likely due to cellulitis, septic workup received at [place] Cellulitis to LLE Lymphedema to LLE likely due to cellulitis - Blood culture x 1 with streptococcus on preliminary result, started on Vanco, pip/tazo at [facility], received one dose 2gm ceftriaxone on 03/07/24, preliminary culture results on [employer] with E-coli - Repeat blood cultures, CBC, BMP, Mag, ESR, CRP - Continue pip/tazo- pharmacy to dose - Echo was performed at [facility]- please obtain results Chronic conditions HTN- [...] MD 03/09/24 1222 Signed By: 03/09/24 1224 [facility]01-03-2025 History and physical note Author Yecenia Meléndez [facility] Date/TimeJanuary 2024 8:48[place] [address] Hospitalist H&P Signed Patient: Juan Bean JR MR#: [id number] : 1965 Acct:[id number] Age/Sex: 59 / M Adm Date: 5 Loc: Room: [address] [place] [address] Type: ADM IN Attending Dr: Gomez Sunshine MD Copies to: NON STAFF DO Yecenia Armenta, SHAHZAD Sunshine MD~ HPI DATE OF EXAMINATION: 03/09/24 CHIEF COMPLAINT: left leg red HISTORY OF PRESENT ILLNESS: Mr. Bean is a 59-year-old male with a PMH of HTN, T2DM, HLD, morbidly obese?BMI 55.6 that presentedto the [facility] for redness to his left leg [...] drinks a day. Denies illicit drug use. [facility] chart review?in the emergency room he [...] tachycardia with RBBB. Family requested transfer to [facility]. He was treated with vancomycin, Zosyn and 1 dose of ceftriaxone. With IV hydration overnight during his stay. He was transferred here to [facility] as inpatient to the [facility] telemetry floor. Review of Systems Review of Systems Review of systems: A 10 point review of systems was obtained, negative unless noted in the HPI or below. 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 Venous Doppler BLE negative at [facility] ? Bibasilar atelectasis on chest x-ray ? Pep therapy Sepsis- likely due to cellulitis, septic workup received at [place] Cellulitis to LLE Lymphedema to LLE likely due to cellulitis - Blood culture x 1 with streptococcus on preliminary result, started on Vanco, pip/tazo at [facility], received one dose 2gm ceftriaxone on 03/07/24, preliminary culture results on [employer] with E-coli - Repeat blood cultures, CBC, BMP, Mag, ESR, CRP - Continue pip/tazo- pharmacy to dose - Echo was performed at [facility]- please obtain results Chronic conditions HTN- [...] signed by Calvin Son DO> 03/09/24 0848 [facility] Work Phone: 1(725) 753-634001-03-2025 History and physical [place] [id number] Hospitalist H&P Signed Patient: Juan Bean JR MR#: [id number] : 1965 Acct:[id number] Age/Sex: 59 / M Adm Date: 5 Loc: Room: [address] [place] [address] Type: ADM IN Attending Dr: Gomez Sunshine MD Copies to: NON STAFF DO Yecenia Armenta, SHAHZAD Sunshine MD~ HPI DATE OF EXAMINATION: 03/09/24 CHIEF COMPLAINT: left leg red HISTORY OF PRESENT ILLNESS: Mr. Bean is a 59-year-old male with a PMH of HTN, T2DM, HLD, morbidly obese?BMI 55.6 that presentedto the [facility] for redness to his left leg [...] drinks a day. Denies illicit drug use. [facility] chart review?in the emergency room he [...] tachycardia with RBBB. Family requested transfer to [facility]. He was treated with vancomycin, Zosyn and 1 dose of ceftriaxone. With IV hydration overnight during his stay. He was transferred here to [facility] as inpatient to the [facility] telemetry floor. Review of Systems Review of Systems Review of systems: A 10 point review of systems was obtained, negative unless noted in the HPI or below. 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 Venous Doppler BLE negative at [facility] ? Bibasilar atelectasis on chest x-ray ? Pep therapy Sepsis- likely due to cellulitis, septic workup received at [place] Cellulitis to LLE Lymphedema to LLE likely due to cellulitis - Blood culture x 1 with streptococcus on preliminary result, started on Vanco, pip/tazo at [facility], received one dose 2gm ceftriaxone on 03/07/24, preliminary culture results on [employer] with E-coli - Repeat blood cultures, CBC, BMP, Mag, ESR, CRP - Continue pip/tazo- pharmacy to dose - Echo was performed at [facility]- please obtain results Chronic conditions HTN- [...] Meléndez APRN 03/09/24 0245 Signed By: 03/09/24 2390 03/09/24 5791 [facility]01-03-2025 Evaluation note* Diagnosis Onset Date Resolution Status Admit Date Acute hypoxic respiratory failure acuteJanuary 2024 11:05pmBacteremiaacuteJanuary 2024 11:05pmCellulitis acuteJanuary 2024 11:05pmDiabetesacuteJanuary 2024 11:05pm HypomagnesemiaacuteJanuary 2024 11:05pmHypophosphatemiaacuteJanuary 2024 11:05pmLymphedemaacuteJanuary 2024 11:05pmSepsisacuteJanuary 2024 11:05pm [facility] Work Phone: 1(839) 265-181101-03-2025 Evaluation note* Diagnosis Onset Date Resolution Status [...] dermatitis of lower extremityacuteApril 02, 2024 8:30am [facility] Work Phone: 1(488) 715-550410-23-2024 History of Present illness Narrative* MEGGAN Lopez [...] a day. ergocalciferol (Vitamin D2) 1.25 MG (34781 UT) capsule TAKE 1 CAPSULE BY MOUTH [...] complication, without long-term current use of insulin ([facility]) - POCT Glycated hemoglobin, total Advised pt that his HgbA1c has increased to 7.3. He had a recent change in his diet and was eating unhealthier foods at lunch consistently. Discussed healthier options for snacks or quick meal solutions. Limit simple sugars and carbs. Will recheck in three months. His insurance does not cover GLP class medications. Primary hypertension ([facility]) Patient's blood pressure is currently stable. Continue with current medications and I will continueto monitor. Morbid obesity ([facility]) Pt has gained 21 pounds since his last appointment. Unable to continue the Adipex for the patient at this time as the benefits are no longer outweighing the potential risks of the medication. Encouraged him to work on improving his diet. Stay active, can re-evaluate in three months. Follow up in about 3 months (around 03/29/2024) for Diabetes. documented in this encounterSaint [facility] [id number] Telephone encounter Note* Telephone Encounter - MEGGAN Lopez - 12/27/2023 10:02 AM EDT OARRS reviewed, Rx sent into patient's pharmacy. [facility] [id number] Miscellaneous Notes* Telephone Encounter - MEGGAN Lopez - 12/27/2023 10:02 AM EDT OARRS reviewed, Rx sent into patient's pharmacy. * Telephone Encounter - Chioma Webb - 12/27/2023 9:06 AM EDT phentermine (Adipex-P) 37.5 MG tablet Ddm in [place] documented in this [facility]10-22-2024 Telephone encounter Note* Telephone Encounter - Chioma Webb - 12/27/2023 9:06 AM EDT phentermine (Adipex-P) 37.5 MG tablet Ddm in [place] [facility] [id number] Telephone encounter Note* Telephone Encounter - MEGGAN Lopez - 11/23/2023 8:49 AM EDT Yes, med was already sent [facility] [id number] Miscellaneous Notes* Telephone Encounter - MEGGAN Lopez - 11/23/2023 8:49 AM EDT Yes, med was already sent * Telephone Encounter - Alysha Kent MA - 11/23/2023 8:33 AM EDT This looks as though it was sent in on 11/20 documented in this [facility]09-18-2024 Telephone encounter Note* Telephone Encounter - Alysha Kent MA - 11/23/2023 8:33 AM EDT This looks as though it was sent in on 11/20 [facility] [id number] Telephone encounter Note* Telephone Encounter - MEGGAN Lopez - 11/21/2023 9:57 AM EDT OARRS reviewed, Rx sent into patient's pharmacy. [facility] [id number] Miscellaneous Notes* Telephone Encounter - MEGGAN Lopez - 11/21/2023 9:57 AM EDT OARRS reviewed, Rx sent into patient's pharmacy. * Telephone Encounter - Rosario Sutherland - 11/21/2023 9:14 AM EDT phentermine (Adipex-P) [facility] [place] documented in this encounterSaint [facility] & Health [id number] Telephone encounter Note* Telephone Encounter - Rosario Sutherland - 11/21/2023 9:14 AM EDT phentermine (Adipex-P) 37.5 MG [facility] [place] [facility] [id number] Telephone encounter Note* Telephone Encounter - MEGGAN Lopez - 10/25/2023 4:03 PM EDT OARRS reviewed, Rx sent into patient's pharmacy. [facility] [id number] Miscellaneous Notes* Telephone Encounter - MEGGAN Lopez - 10/25/2023 4:03 PM EDT OARRS reviewed, Rx sent into patient's pharmacy. documented in this encounterSaint Francis Hospital & Health ServicesPjvdvkvleb13-22-2035 Evaluation note* Encounter Date Diagnosis Assessment Notes [...] call the office if his symptoms worsen. [employer] Other [id number] History of Present illness Narrative* MEGGAN Lopez [...] kit 0 ergocalciferol (Vitamin D2) 1.25 MG (09319 UT) capsule Take 1 capsule (1.25 mg) [...] Up, Hypertension. documented in this encounterSaint Francis Hospital & Health [id number] Evaluation note* Encounter Date Diagnosis Assessment Notes [...] negative findings were considered in medical decision-making. [employer] Other [id number] Miscellaneous Notes* Telephone Encounter - Víctor Rosales [...] Rosales MD [facility] NoteHNO ID: [id number] Author: Elena Teran APRN.ENVIRONMENTAL MANAGEMENT SPECIALIST Service: ? Author Type: Nurse Electrical Superintendent Type: Anesthesia Procedure Notes Filed: 08/13/2022 3:45 PM Note Text: ANESTHESIOLOGY PROCEDURE NOTE Airway General Information Procedure Start Time/Medication Administration: 08/13/2022 3:07 PM Procedure End Time: 08/13/2022 3:08 PM Patient location during procedure: OR Timeout Performed Pre-procedure: timeout performed Consent Obtained: Yes Patient identity confirmed: patient sedated or unresponsive and arm band Staffing Anesthesiologist: Brennan Henley MD ENVIRONMENTAL MANAGEMENT SPECIALIST: Elena Teran APRN.ENVIRONMENTAL MANAGEMENT SPECIALIST Performed by: LOLA Indications and Patient [...] with Mcmahon and stylette. SIGNATURE: Elena Teran APRN.ENVIRONMENTAL MANAGEMENT SPECIALIST PATIENT NAME: Juan Bean DATE: August 13, 2022 TIME: 3:38 PM CSN: [id number] Health06-09-2023 NoteThis case was seen in consultation with Drs. Florentin Shirley, Hema Edwards and Rita Funez who agree with the above interpretation.[facility] Comment on above:Order Comment: Specimen Type: TISSUE SPECIMENOrdering Facility: [facility] Address: [address] [place] [address] Performed By: #### S ####[facility] LABCLIA [id number] [address]05-08-2023 Note Patient Outreach (UROLMN) JUAN BEAN ([id number]) 1965 M Date Time Provider Department 07/12/22 VÍCTOR ROSALES During your visit today, we recorded the following information about you: Allergies As of Date: 07/12/2022 (No Known Allergies) Date Reviewed: 07/12/2022 Reviewed by: ADELA Crandall - Fully Assessed Visit Diagnosis:Screening for genitourinary condition [Z13.89] Order(s):URINALYSIS, REFLEX MICROSCOPIC [BCN1197] Order #: [id number]. #:[id number] Prescriptions as of 07/15/2022 - amLODIPine (NORVASC) [...] (HC*07/12/2022 Encounter Status:Closed by ERLINDA GONZALEZ on 07/15/22[facility] 07-12-2022 NoteHNO ID: [id number] Author: Víctor Rosales MD Service: ? Author Type: Physician Type: Progress Notes Filed: 07/12/2022 9:40 AM Note Text: [facility] NEW PATIENT HISTORY AND [...] for internal providers or letter via the [employer] for external providers. HISTORY CHIEF [...] care with the res (more content not included)...[facility]05-08-2023 History of Present illness Narrative* Víctor Rosales MD - 07/12/2022 9:18 AM EDT [facility] NEW PATIENT HISTORY AND [...] for internal providers or letter via the [employer] for external p roviders. HISTORY [...] 9:37 AM documented in this encounterSelect [facility]04-18-2023 Progress note Author Silvio Yu [facility] June 22, 2022 9:03amNote Date/TimeApril 2022 8:21[facility] [place] [address] Hem/Onc Follow Up Note - OP Signed Patient: Juan Bean JR MR#: [id number] : 1965 Acct:[id number] Age/Sex: 57 / M Type: REG RCR [...] he is a T1b. will send to [facility] path review for second opinion. We would like to ascertain he has no residual disease. Dr. Santana will speak withhis colleague Dr. Víctor Rosales at [facility] and determine if additional excision or biopsy is necessary. Follow Up Instructions: Dr. Santana is setting up to see [facility] urology. send path report to [facility] for review. ct c/a/p with contrst cbc, cmp, cea with ct day. f/u in 3 wks. 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 Hadcircumcision 05/31/22, [facility] pathology. HPI: 57-year-old male past medical history [...] for coordination of care (as documented) and gfwe-sa-ksuu counseling of patient and/or family. [facility] - Medical History Medical History: Medical [...] by Silvio Yu II, DO> 06/22/22 0903 [facility] Work Phone: 1(261) 480-913903-06-2023 NoteChief Complaint Referral HPI Staff Referral per [...] MD, URL [address] [address]- Additional Instructions: pt will f/u after procedure Patient Education Ramona Christiansen , personally scribed for Dr. Santana on 05/10/2022 11:00:16. . Documentation recorded by the scribe, Ramona Yost MA, accurately reflects the services(s) I performed and decisions made by me. Authenticated by (more content not included)...[facility] HospitalComment on above:Result Comment: Electronically Signed By: Timmy SANTANA MD\.br\Date and Time Signed: 05/10/22 11:03 EST\.br\Electronically Co-Signed By: Ramona Yost MA\.br\Date and Time Co-Signed: 05/10/22 11:00 [id number] Hospital Discharge instructions Patient Education 05/10/2022 10:53:42 [...] and shower gels that have fragrance. Take neat-smv-qebaenp and prescription medicines only as told by [...] 07/10/2009 Document Revised: 02/03/2018 Document Reviewed: 01/10/2017 [employer] Patient Education 2020 Calm. 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 and [...] will follow-up on a as needed basis [facility]-M2G 250 DO Work Phone: Evaluation + Plan note No data available for this section [facility] Evaluation noteNo assessment information available [facility] Work Phone: Evaluation note* Diagnosis Penile cancer (HCC)- Primary Malignant neoplasm of penis, part unspecified Hidden penis Morbid obesity with BMI of 45.0-49.9, adult (HCC) Morbid obesity documented in this encounter [facility]* Diagnosis Onset Date Resolution Status Squamous cell carcinoma, penis acute [facility] Work Phone: Evaluation note* Diagnosis Screening for genitourinary condition Screening for other and unspecified genitourinary condition Penile cancer (HCC) Malignant neoplasm of penis, part unspecified documented in this encounter [facility]* Diagnosis Primary hypertension (CMS/HCC)- Primary Unspecified essential hypertension Morbid obesity (CMS/HCC) Morbid obesity documented in this encounter [facility] HealthcareEvaluation note* Diagnosis Morbid obesity (CMS/HCC) Morbid obesity documented in this encounter [facility] HealthcareEvaluation note* Diagnosis Type 2 diabetes mellitus with other specified complication, without long-term current use of insulin (CMS/HCC)- Primary Primary hypertension (CMS/HCC) Unspecified essential hypertension Morbid obesity (CMS/HCC) Morbid obesity documented in this encounter [facility]* Diagnosis Morbid obesity (CMS/HCC) Morbid obesity documented in this encounter [facility] HealthcareEvaluation note* Diagnosis Morbid obesity (CMS/HCC) Morbid obesity documented in this encounter [facility] HealthcareEvaluation note* Diagnosis Morbid obesity (CMS/HCC) Morbid obesity documented in this encounter [facility] HealthcareEvaluation note* Diagnosis Cellulitis of left lower leg- Primary History of sepsis Personal history of other infectious and parasitic disease Morbid obesity ([facility]/HCC) Morbid obesity Primary hypertension ([facility]) Unspecified essential hypertension documented in this encounter [facility] HealthcareEvaluation note* Diagnosis Cellulitis of left lower leg- Primary documented in this encounter [facility] HealthcareEvaluation note* Diagnosis Type 2 diabetes mellitus with other specified complication, without long-term current use of insulin ([facility])- Primary Hypertension secondary to endocrine disorders ([facility]/HCC) Cellulitis of left lower leg Morbid obesity ([facility]/HCC) Morbid obesity BMI 50.0-59.9, adult ([facility]) Mild tricuspid regurgitation documented in this encounter [facility] HealthcareEvaluation note* Diagnosis Cellulitis of both lower extremities- Primary documented in this encounter [facility] HealthcareEvaluation note* Diagnosis Hypertension due to endocrine disorder ([facility]/HCC)- Primary Cellulitis of left lower leg Pitting edema Edema Lumbar spondylosis Lumbosacral spondylosis without myelopathy Spinal stenosis of lumbar region, unspecified whether neurogenic claudication present documented in this encounter [facility] HealthcareEvaluation note* Diagnosis Type 2 diabetes mellitus with hyperglycemia, without long-term current use of insulin ([facility])- Primary Morbid obesity ([facility]/HCC) Morbid obesity BMI 50.0-59.9, adult ([facility]) Hypertension due to endocrine disorder ([facility]/HCC) Cellulitis of left lower leg Lymphedema Other noninfectious lymphedema Pitting edema Edema Levoscoliosis of lumbar spine documented in this encounter [facility] HealthcareEvaluation note* Diagnosis Type 2 diabetes mellitus with other specified complication, with long-term current use of insulin- Primary Hypertension due to endocrine disorder ([facility]/HCC) Lymphedema Other noninfectious lymphedema Lumbar spondylosis Lumbosacral spondylosis without myelopathy Type 2 diabetes mellitus with hyperglycemia, with long-term current use of insulin ([facility]/HCC) Morbid obesity ([facility]/HCC) Morbid obesity BMI 50.0-59.9, adult ([facility]) documented in this encounter [facility] HealthcareEvaluation note* Diagnosis Hypertension due to endocrine disorder- Primary Type 2 diabetes mellitus with hyperglycemia, with long-term current use of insulin ([facility]) Morbid obesity ([facility]) Morbid obesity BMI 50.0-59.9, adult ([facility]) Type 2 diabetes mellitus with other specified complication, with long-term current use of insulin ([facility]) documented in this encounter [facility] HealthcareEvaluation note* Diagnosis Type 2 diabetes mellitus with hyperglycemia, with long-term current use of insulin ([facility])- Primary Primary hypertension Unspecified essential hypertension Morbid obesity ([facility]) Morbid obesity BMI 50.0-59.9, adult ([facility]) Lumbar spondylosis Lumbosacral spondylosis without myelopathy documented in this encounter [facility] HealthcareEvaluation note* Diagnosis Onset Date Resolution Status Admit Date Lumbosacral spondylosis acuteSeptember 2024 2:54pmMid back painacuteSeptember 2024 2:54pmOther chronic painacuteSeptember 2024 2:54pmRight hip painacuteSept2024 2:54pm [facility] Work Phone: [facility] general Narrative - Reported* Type Description Date Medical History DM2 Medical HistoryhyperlipedemiaMedical HistoryHTNMedical Historygum diseaseMedical HistoryhypogonadismMedical Historyvit d difMedical HistoryGoutSurgical History [id number] HistorySEE ABOVE SURGERY [employer] Other History general Narrative - Reported* Type Description Date Medical History DM2 Medical HistoryhyperlipedemiaMedical HistoryHTNMedical Historygum diseaseMedical HistoryhypogonadismMedical Historyvit d difMedical HistoryGoutSurgical History [id number] HistorySEE ABOVE SURGERYHospitalization Historycellulitis LLE103/2022 .[employer] Other Hospital Discharge instructions No data available for this section [facility] Hospital Discharge instructions Additional Instructions Take the prednisone twice a day for 5 days Take 1 hydrocodone every 6 hours for severe pain May use ice or warm moist heat Gentle stretching Continue your other medication The steroids can elevate your blood sugar so carefully watch her blood sugar in your diet Follow-up with family doctor and/or [facility] Return to the ER for worsening pain unable to walk fever or any other concerns [facility] Work Phone: Progrbxh note No data available for this section [facility] Progress note Author Silvio Yu [facility] July 13, 2022 9:24amNote Date/TimeMay 2022 9:18[facility] [place] [address] Hem/Onc Follow Up Note - OP Signed Patient: Juan Bean JR MR#: [id number] : 1965 Acct:[id number] Age/Sex: 57 / M Type: REG RCR [...] disease. comanaged by Dr. Av Rosales at [facility], plans additional biopsies under anesthesia for [...] we thave notes from dr rosales at [facility] and potential surgical report and pathology [...] 85%. 07/13/[address] av rosales at [facility]. recommended additional biopsy under anesthesia. ct [...] for coordination of care (as documented) and sdws-jg-rnpx counseling of patient and/or family. [facility] - Medical History Medical History: Medical [...] by Silvio Yu II, DO> 07/13/22 0924 [facility] Work Phone: Reason for referral (narrative)No reason for referral information availableUniversity [facility]als [facility] Work Phone: Chief Complaint and Reason for [...] Morbid obesity (CMS/HCC) Carolyn Verdin PA [address] [facility] [address] [place] [address] Referral IDStatusReasonStart DateExpiration DateVisits RequestedVisits [id number] Additional Source Comments Patient Care team informatio n (unrecognized section and content) Team Status: Active Member Role Status Dates Carolyn Verdin PA-C Primary Care Provider Active Team Status: Inactive Member Role Status Dates Timmy Santana MD Attending Provider Active SOUTH LawlerCPrimary Care ProviderActiveTeam MemberRelationshipSpecialty Start DateEnd Date Daniel Leonard MD PCP - [facility] Nsdxyoey56/6/13 Team Status: Active Member Role Status Dates Carolyn Verdin PA-C Primary Care Provider Active Silvio Yu II, DOAttending ProviderActiveTimmy Santana , MDReferring ProviderActiveTeam MemberRelationshipSpecialtyStart DateEnd Date Daniel Leonard MD PCP - [facility]01/10/13Team MemberRelationshipSpecialtyStart DateEnd Date Carolyn Verdin [address] [facility] [address] [place] [address] [facility]07/27/22 Team Status: Inactive Member Role Status Dates MEGGAN Lawler-C Primary Care Provider Active ANNABEL Andrade-BCEmersouth mississippi [facility] ProviderActiveTeam MemberRelationship SpecialtyStart DateEnd Date Carolyn Verdin PA [address] [place] [address] PCP - Medical [employer]08/05/22 Manish Rodriguez MD [address] [place] [address] [facility]07/13/22Team MemberRelationshipSpecialtyStart Date End Date Carolyn Verdin PA [address] [place] [address] PCP - Medical [employer]08/05/22 Manish Rodriguez MD [address] [place] [address] [facility]07/13/22Team MemberRelationshipSpecialtyStart Date End Date Manish Rodriguez MD [address] [place] [address] PCP - [address]07/13/22 Manish Rodriguez MD [address] [place] [address] PCP - Medical [employer]03/07/1811Team MemberRelationshipSpecialty Start DateEnd Date Manish Rodriguez MD [address] [place] [address] PCP - GeneralInternal Medicine07/13/22 Manish Rodriguez MD [address] [place] [address] PCP - Medical [employer]03/07/1811Team MemberRelationshipSpecialty Start DateEnd Date Manish Rodriguez MD [address] [place] [address] PCP - [facility]07/13/22 Manish Rodriguez MD [address] [place] [address] PCP - Medical [employer]03/07/1811Team MemberRelationshipSpecialty Start DateEnd Date Manish Rodriguez MD [address] [place] [address] PCP - [facility]07/13/22 Manish Rodriguez MD [address] [place] [address] PCP - Medical [employer]03/07/1811Team MemberRelationshipSpecialty Start DateEnd Date Manish Rodriguez MD [address] [place] [address] PCP - [facility]07/13/22 Manish Rodriguez MD [address] [place] [address] PCP - Medical [employer]03/07/1811Team MemberRelationshipSpecialty Start DateEnd Date Manish Rodriguez MD [address] [place] [address] PCP - GeneralInternal Medicine07/13/22 Manish Rodriguez MD [address] [facility] [address] [place] [address] PCP - Medical [employer]03/07/1811 Team Status: Active Member Role Status [...] ProviderActiveStart: March 12, 2024 Makayla Ovalle , CUFFING MACHINE OPERATOR-COther ProviderActiveStart: March 12, 2024 Franco Graf , DOOther ProviderActiveStart: March 12, 2024 Marek Mullen II, MDOther ProviderActiveStart: March 12, 2024 Waldemar Rizzo , DOOther ProviderActiveStart: March 12, 2024 Jorge Luis Mcgregor MDOther ProviderActiveStart: March 12, 2024 Calvin Navarro , MDAttending Provider, Other ProviderActiveStart: March 12, 2024 Team MemberRelationshipSpecialtyStart DateEnd Date Manish Rodriguez MD [address] [place] [address] PCP - [address] [facility]07/13/22 Manish Rodriguez MD [address] [place] [address] PCP - Medical [employer]03/07/1811Team MemberRelationshipSpecialty Start DateEnd Date Manish Rodriguez MD [address] [place] [address] PCP - GeneralInternal Medicine07/13/22 Manish Rodriguez MD [address] [place] [address] PCP - Medical [employer]03/07/1811Team MemberRelationshipSpecialty Start DateEnd Date Manish Rodriguez MD [address] [place] [address] PCP - [facility]07/13/22 Manish Rodriguez MD [address] [place] [address] PCP - [facility]03/07/1811 Team Status: Active Member Role Status Dates MARIELLA LawlerC Primary Care Provider Active Start: March 10, 2024 Yaquelin Burns ProviderActiveStart: March 10, 2024 Team Status: Inactive Member Role Status Dates Carolyn Verdin NP-C Primary Care Provider Active Start: April 02, 2024 End: April 02, 2024Cheryl Thurston ProviderActiveStart: April 02, 2024 End: April 02, 2024Team MemberRelationshipSpecialtyStart DateEnd Date Manish Rodriguez MD [address] [place] [address] PCP - [facility]07/13/22 Manish Rodriguez MD [address] [place] [address] PCP - [facility]03/07/1811Team MemberRelationshipSpecialty Start DateEnd Date Manish Rodriguez MD [address] [place] [address] PCP - [facility]07/13/22 Manish Rodriguez MD [address] [place] [address] PCP - [facility]03/07/1811Team MemberRelationshipSpecialty Start DateEnd Date Manish Rodriguez MD [address] [place] [address] PCP - [facility]07/13/22 Manish Rodriguez MD [address] [place] [address] [facility]03/07/1811Team MemberRelationshipSpecialty Start DateEnd Date Manish Rodriguez MD [address] [place] [address] PCP - [facility]07/13/22 Manish Rodriguez MD [address] [place] [address] [facility]03/07/1811Team MemberRelationshipSpecialty Start DateEnd Date Manish Rodriguez MD [address] [place] [address] PCP - [facility]07/13/22 Manish Rodriguez MD [address] [place] [address] [facility]03/07/1811Team MemberRelationshipSpecialty Start DateEnd Date Manish Rodriguez MD [address] [place] [address] PCP - [facility]07/13/22 Mainsh Rodriguez MD [address] [place] [address] PCP - [facility]03/07/1811 Team Status: Inactive Member Role Status [...] section and content) DATE CREATED AUTHOR 05/21/2022 [facility] DATE CREATED AUTHOR AUTHOR'S ORGANIZ ATION 05/21/2022 [employer] DATE CREATED AUTHOR AUTHOR'S ORGANIZ ATION 08/19/2022 [facility] DATE CREATED AUTHOR AUTHOR'S ORGANIZ ATION 11/10/2022 [facility] DATE CREATED AUTHOR AUTHOR'S ORGANIZ ATION 05/18/2024 [facility] DATE CREATED AUTHOR AUTHOR'S ORGANIZ ATION 10/30/2024 [facility] DATE CREATED AUTHOR AUTHOR'S ORGANIZ ATION 11/16/2024 [facility] Source Comments (unrecognize d section and content) In the event this informatio n is protected by the Federal Confidentiality of Alcohol and Drug Abuse Patient Records regulations: The Federal rules restrict any use of the information to criminally investigate or prosecute any alcohol or drug abuse patient.[facility] the event this information is protected by the Federal Confidentiality of Alcohol and Drug Abuse Patient Records regulations: The Federal rules restrict any use of the information to criminally investigate or prosecute any alcohol or drug abuse patient.[facility] the event this information is protected by the Federal Confidentiality of Alcohol and Drug Abuse Patient Records regulations: The Federal rules restrict any use of the information to criminally investigate or prosecute any alcohol or drug abuse patient.[facility] Reason for Visit (unrecogniz ed section and content) ReasonCommentsNew PatientReasonCommentsResultsReasonOnset DateCommentsMed Refill 4ReasonCommentsMed RefillReasonOnset DateCommentsMed Fcdjmk1010/24/2023 [facility] Harriet ClydeReasonCommentsMed RefillLisinopril-HCTZReasonCommentsMed RefillMetoprololHypertensionDenies chest pain, SOB, blurry [...] BE BASED ON THE PRIMARY CLINICAL RECORDS. [employer] provides no warranty or guarantee of the accuracy or completeness of information in this document.
[2025-01-04 14:43] VITALS: BP 149/79; PULSE 79; TEMP 36.7; O2SAT 90; BMI 55.6
[2025-01-04] MEDS: 0.9 % SODIUM CHLORIDE 1,000 ML 125 ML IV (15:28)
[2025-01-04] MEDS: AMLODIPINE BESYLATE 5 MG TABLET PO (15:32)
[2025-01-04] MEDS: METOPROLOL SUCCINATE 100 MG TAB.ER.24H PO (15:32)
[2025-01-04] MEDS: ERTAPENEM SODIUM 1 GM in 0.9 % SODIUM CHLORIDE 50 ML IV (15:32)
[2025-01-04] MEDS: VANCOMYCIN HCL 2,000 MG in 0.9 % SODIUM CHLORIDE 500 ML 250 MG IV (16:14)
--- NOTE | 2025-01-04 18:42 | DIETREC ---
Recommend 2500 kcal CCD diet.
[2025-01-04 20:00] VITALS: PULSE 82
[2025-01-04] MEDS: ATORVASTATIN CALCIUM 40 MG TABLET PO (21:30)
[2025-01-04] MEDS: ENOXAPARIN SODIUM 40 MG/0.4 ML SYRINGE SUBQ (21:30)
[2025-01-04] MEDS: INSULIN ASPART 300 UNIT/3 ML PEN SUBQ (21:36)
[2025-01-04] MEDS: INSULIN GLARGINE 300 UNIT/3 ML INSULN.PEN 25 UNIT SQ (21:39)
[2025-01-04 23:13] VITALS: BP 144/62; PULSE 74; TEMP 36.6; O2SAT 91
[2025-01-05] VITALS (10 sets, daily range): BP systolic 106–147; BP diastolic 64–85; PULSE 74–76; TEMP 36.2–37.4; O2SAT 89–98
[2025-01-05] MEDS: 0.9 % SODIUM CHLORIDE 1,000 ML 125 ML IV (02:52)
[2025-01-05 06:59] LABS: Hematocrit 46.4 % (42.0-54.0); Hemoglobin 14.6 g/dL (14.0-18.0); Immature Granulocytes Abs Auto 0.03 10^3/uL (0.00-0.03); Immature Granulocytes Pct Auto 0.4 % (0.0-0.5); Lymphocytes Absolute Auto 0.5 10^3/uL (1.2-3.8); Mean Corpuscular HGB Conc 31.5 g/dL (29.9-35.2); Mean Corpuscular Hemoglobin 30.4 pg (25.9-34.0); Mean Corpuscular Volume 96.7 fL (80.0-94.0); Platelet Count 106 10^3/uL (150-450); Red Blood Count 4.80 10^6/uL (4.70-6.10); White Blood Count 7.3 10^3/uL (4.0-11.0)
[2025-01-05 07:31] LABS: Alanine Aminotransferase 21 U/L (16-63); Albumin Globulin Ratio 0.8; Albumin Level 3.2 g/dL (3.4-5.0); Alkaline Phosphatase 49 U/L (46-116); Anion Gap 12.0; Aspartate Amino Transferase 20 U/L (15-37); Blood Urea Nitrogen 17.0 mg/dL (7.0-18.0); Calcium 8.7 mg/dL (8.5-10.1); Carbon Dioxide 29.4 mmol/L (21.0-32.0); Chloride 99 mmol/L (98-107); Estimated GFR (African America >60 (>=60 mL/min/1.73m^2); Estimated GFR (Non-African Ame >60 (>=60 mL/min/1.73m^2); Globulin 4.1 g/dL; Glucose 163 mg/dL (74-106); Potassium 4.4 mmol/L (3.5-5.1); Sodium 136 mmol/L (136-145); Total Protein 7.3 g/dL (6.4-8.2)
--- NOTE | 2025-01-05 08:00 | ECG_ITS ---
[facility] Test Date: 2025-01-05 Pat Name: JUAN VILLAVICENCIO Department: Room: 218 Gender: Male Director [employer]: : 1965 Requested By: [id number] Order Number: [id number] Reading MD: CHRIS LUKE M.D. Measurements Intervals [place] Rate: 68 P: 38 [place]: 140 QRS: 7 QRSD: 144 T: -5 QT: 377 QTc: 403 Interpretive Statements SINUS RHYTHM WITH SINUS ARRHYTHMIA RIGHT BUNDLE BRANCH BLOCK Abnormal ECG Compared to ECG 03/07/2024 16:05:32 Indeterminate axis no longer present Electronically Signed On 01-05-2025 8:43:38 EDT by CHRIS LUKE M.D.
[2025-01-05] MEDS: VANCOMYCIN HCL 2,000 MG in 0.9 % SODIUM CHLORIDE 500 ML 250 MG IV ×2 (09:07→22:43)
[2025-01-05] MEDS: INSULIN ASPART 300 UNIT/3 ML PEN SUBQ ×6 (09:08→16:48)
[2025-01-05] MEDS: LISINOPRIL 20 MG TABLET PO (09:10)
[2025-01-05] MEDS: AMLODIPINE BESYLATE 5 MG TABLET PO (09:10)
[2025-01-05] MEDS: METOPROLOL SUCCINATE 100 MG TAB.ER.24H PO (09:10)
[2025-01-05] MEDS: FUROSEMIDE 20 MG TABLET PO ×2 (09:10→09:14)
[2025-01-05] MEDS: ENOXAPARIN SODIUM 40 MG/0.4 ML SYRINGE SUBQ ×2 (09:10→22:43)
--- NOTE | 2025-01-05 14:50 | PM.HP ---
HPI H&P: HPI History of Present Illness Chief complaint: LOWER EXTREMITY PAIN, CELLULITIS LEFT LOWER EXTREM Narrative: This is a 59-year-old man who came to the emergency room on January 04, 2025 with concern for cellulitis in his legs. Left more than the right. The evening before he had had unstoppable shaking chills and rigors he had gone home and gone to bed. This patient has had problems with severe cellulitis including March of this year, 2022, and 1 time where he had to be shipped up to [place] because my leg is broken open and I had septis. The patient reports that he is not having shaking or rigors or chills since coming into the hospital here. He thinks that the redness and swelling and warmth on his left leg is little bit better than it was yesterday. He is not having a problem such as nausea vomiting or any diarrhea. Quality: Safe Use of Opioids Is the patient undergoing opioid medication assisted treatment that includes methadone, buprenorphine, and/or naltrexone: No Opioid HPI Opioid Management Most Recent Pain and Opioid Data: Last Pain Scale 0 Today, 07:51 Last Pain Assessment Today, 13:00 Last ORT Total Score 0 01/04/25, 14:43 Last ORT Risk Category Low Risk 01/04/25, 14:43 Review of Systems ROS Narrative 10 point review of systems is negative except as mention above in the history present illness. 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 - Other postprocedural complications and disorders of genitourinary system (ICD-10) ?N47.5 - Adhesions of prepuce and glans penis (ICD-10) Elevated d-dimer ?R79.89 - Other specified abnormal findings of blood chemistry (ICD-10) Hip pain, right ?M25.551 - Pain in right hip (ICD-10) Lower extremity edema ?R60.0 - Localized edema (ICD-10) Cellulitis of left leg ?L03.116 - Cellulitis of left lower limb (ICD-10) Diabetes ?E11.9 - Type 2 diabetes mellitus without complications (ICD-10) Hypertension ?I10 - Essential (primary) hypertension (ICD-10) High cholesterol ?E78.00 - Pure hypercholesterolemia, unspecified (ICD-10) Surgical History Hx of tonsillectomy ?Z90.89 - Acquired absence of other organs (ICD-10) Family History Sister Family history of cancer Mother Family history of diabetes mellitus Family history of hypertension Family history of myocardial infarction Father Family history of diabetes mellitus Grandfather Family history of stroke Social History Within the past year, how often did you have a drink containing alcohol: 2-3 times a week Within the past year, how many standard drinks containing alcohol did you have on a typical day: 3 or 4 Within the past year, how often did you have six or more drinks on one occasion: less than monthly Total score: 3 Score interpretation: A score of 4 or more indicates drinking is likely to affect patient's safety. 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 Highest level of school completed/degree received: 11th grade Do you want help with school or training: No Are you now , , , , never or living with a partner: In a typical week, how many times do you talk on the telephone with family, friends, or neighbors: 3 or more times per week How often do you get together with friends or relatives: twice per week How often do you attend bahai or rastafarian services: 1-3 times per year Do you belong to any clubs or organizations such as bahai groups unions, fraternal or athletic groups, or school groups: no Total score: 1 Score interpretation: A score of less than or equal to 1 indicates the most socially isolated. Little interest or pleasure in doing things: not at all Feeling down, depressed, or hopeless: not at all Feel stressed/tense/nervous/anxious/difficulty sleeping: not at all Due to disability, difficulty making decisions: No Do you think of yourself as: straight/heterosexual Gender Identity: male Meds Home Medications and Allergies Home Medications ?Medication ?Instructions ?Recorded ?Confirmed ?Type amlodipine 5 mg tablet 5 mg PO QDAY 11/15/22 01/04/25 History ergocalciferol (vitamin D2) 1,250 1,250 mcg PO .COMPLEX 11/15/22 01/04/25 History mcg (50,000 unit) capsule meloxicam 15 mg tablet 15 mg PO .qhs 11/15/22 01/04/25 History pioglitazone 45 mg tablet 45 mg PO QDAY 11/15/22 01/04/25 History tizanidine 4 mg tablet 4 mg PO .QHS PRN muscle spasticity 03/08/24 01/04/25 History furosemide 40 mg tablet 40 mg PO DAILY 01/04/25 01/04/25 History insulin glargine 100 25 unit subcut QDAY 01/04/25 01/04/25 History unit-lixisenatide 33 mcg/mL subcutaneous pen (Soliqua 100/33) lisinopril 40 mg tablet 40 mg PO DAILY 01/04/25 01/04/25 History metoprolol succinate 100 mg 100 mg PO DAILY 01/04/25 01/04/25 History tablet,extended release 24 hr potassium chloride 10 mEq 10 meq PO DAILY 01/04/25 01/04/25 History tablet,extended release(part/cryst) rosuvastatin 10 mg tablet 10 mg PO DAILY 01/04/25 01/04/25 History Allergies Allergy/AdvReac Type Severity Reaction Status Date / Time No Known Drug Allergies Allergy Verified 01/04/25 09:12 Exam Narrative Exam Narrative: General: High concern for obstructive sleep apnea. Patient's BMI is 55. He is sitting up in a chair by the window but the [employer] game is on and he is sound asleep. Patient says that he does not know about any history of obstructive sleep apnea. Neurologic: Once he wakes up he is A+O x 3. Eyes: EOMI. PERRLA. Psychiatric mood and affect are normal. Neck: Broad-base and wide based neck. No palpable thyromegaly. Oropharynx: Mallampati grade 4. I cannot even really visualize the top of his mouth. Pulmonary: Clear to auscultation. No wheezing. No rhonchi. GI: Very distant to auscultation but is bowel sounds are normal. Abdomen is nondistended. Cardiac: Also very distant to auscultation. No murmurs. Lower extremities: Right leg: No acute cellulitis at this time. Based on the ER doctor's note I think there is some concern there is cellulitis yesterday but now just has chronic venous stasis changes. Left leg: The cellulitis has been outlined in a marker just below his knee. There is no spread of the cellulitis above the knee. It is warm. The tissues are inflamed. No focal areas of drainage. No subcutaneous areas of purulence. This is a very severe cellulitis extending basically from the knee down to the ankle and totally and completely circumferential. Constitutional Vital Signs, click to edit/add: Last Vital Signs Temp 98.0 F 01/05/25 13:04 Pulse 76 01/05/25 13:04 Resp 18 01/05/25 13:04 BP 119/64 01/05/25 13:04 Pulse Ox 93 L 01/05/25 13:04 O2 Del Method Room Air 01/05/25 13:04 O2 Flow Rate 3 01/05/25 07:18 Results Labs Labs: Short CBC 01/05/25 Range/Units 06:05 WBC 7.3 (4.0-11.0) 10^3/uL Hgb 14.6 (14.0-18.0) g/dL Hct 46.4 (42.0-54.0) % Plt Count 106 L (150-450) 10^3/uL BMP 01/05/25 06:05 Sodium 136 Potassium 4.4 Chloride 99 Carbon Dioxide 29.4 BUN 17.0 Creatinine 0.81 Glucose 163 H Calcium 8.7 Liver Function 01/05/25 Range/Units 06:05 Total Bilirubin 0.9 (0.2-1.0) mg/dL AST 20 (15-37) U/L ALT 21 (16-63) U/L Alkaline Phosphatase 49 (46-116) U/L Albumin 3.2 L (3.4-5.0) g/dL Assessment and Plan Assessment and Plan (1) Cellulitis of left leg: (2) Uncontrolled diabetes mellitus: (3) Adult BMI 50.0-59.9 kg/sq m: Plan Assessment: Cellulitis of left lower extremity. History of multiple severe cellulitis is over the last couple years. Risk and possibility of sepsis and bacteremia because of the patient's shaking chills and rigors at home. Morbid obesity with BMI 55.6. Diabetes mellitus type 2 uncontrolled with hemoglobin A1c 8.3. Hypertension. Plan: Continue inpatient hospital care. Continue broad spectrum antibiotics with IV vancomycin and IV ertapenem. Check blood sugars ACHS. Treat hyperglycemia with sliding scale insulin. Check ESR and CRP with morning labs. Lovenox 40 mg subcutaneously daily for DVT prophylaxis. Elevate the leg is much as possible when he is sleeping flat in bed and during the daytime. Encourage walks around the room in the hallway to improve his circulation.
[2025-01-05] MEDS: ERTAPENEM SODIUM 1 GM in 0.9 % SODIUM CHLORIDE 50 ML IV (15:50)
[2025-01-05] MEDS: METFORMIN HCL 500 MG TABLET PO (17:48)
[2025-01-05 21:48] LABS: A. calcoaceticus-baumannii Cpx NOT DETECTED (NOT DETECTE); Bacteroides fragilis NOT DETECTED (NOT DETECTE); Candida auris NOT DETECTED (NOT DETECTE); Candida glabrata NOT DETECTED (NOT DETECTE); Enterobacterales NOT DETECTED (NOT DETECTE); Enterococcus faecalis NOT DETECTED (NOT DETECTE); Enterococcus faecium NOT DETECTED (NOT DETECTE); Klebsiella aerogenes NOT DETECTED (NOT DETECTE); Klebsiella pneumoniae group NOT DETECTED (NOT DETECTE); Proteus spp. NOT DETECTED (NOT DETECTE); Salmonella spp. NOT DETECTED (NOT DETECTE); Serratia marcescens NOT DETECTED (NOT DETECTE); Staphylococcus epidermidis NOT DETECTED (NOT DETECTE); Staphylococcus lugdunensis NOT DETECTED (NOT DETECTE); Staphylococcus spp. NOT DETECTED (NOT DETECTE); Stenotrophomonas maltophilia NOT DETECTED (NOT DETECTE); Streptococcus pyogenes NOT DETECTED (NOT DETECTE); Streptococcus spp. NOT DETECTED (NOT DETECTE)
[2025-01-05] MEDS: ATORVASTATIN CALCIUM 40 MG TABLET PO (22:43)
[2025-01-05] MEDS: MELOXICAM 7.5 MG TABLET 15 MG PO (22:43)
[2025-01-05 23:10] LABS: Source BLOOD
[2025-01-06] VITALS (10 sets, daily range): BP systolic 122–148; BP diastolic 67–79; PULSE 76–91; TEMP 36.6–37; O2SAT 86–98
[2025-01-06 06:33] LABS: Hematocrit 42.0 % (42.0-54.0); Hemoglobin 13.3 g/dL (14.0-18.0); Immature Granulocytes Abs Auto 0.04 10^3/uL (0.00-0.03); Immature Granulocytes Pct Auto 0.5 % (0.0-0.5); Lymphocytes Absolute Auto 0.6 10^3/uL (1.2-3.8); Mean Corpuscular HGB Conc 31.7 g/dL (29.9-35.2); Mean Corpuscular Hemoglobin 30.2 pg (25.9-34.0); Mean Corpuscular Volume 95.5 fL (80.0-94.0); Platelet Count 125 10^3/uL (150-450); Red Blood Count 4.40 10^6/uL (4.70-6.10); White Blood Count 7.6 10^3/uL (4.0-11.0)
[2025-01-06 06:45] LABS: Anion Gap 10.6; Blood Urea Nitrogen 19.0 mg/dL (7.0-18.0); Calcium 8.9 mg/dL (8.5-10.1); Carbon Dioxide 31.2 mmol/L (21.0-32.0); Chloride 99 mmol/L (98-107); Estimated GFR (African America >60 (>=60 mL/min/1.73m^2); Estimated GFR (Non-African Ame >60 (>=60 mL/min/1.73m^2); Glucose 168 mg/dL (74-106); Potassium 4.8 mmol/L (3.5-5.1); Sodium 136 mmol/L (136-145)
[2025-01-06] MEDS: INSULIN ASPART 300 UNIT/3 ML PEN SUBQ ×7 (08:30→22:15)
[2025-01-06] MEDS: INSULIN GLARGINE LIXISENATIDE SUBQ (08:31)
[2025-01-06] MEDS: [UNRECOGNIZED DRUG - OTHER] SUBQ (08:31)
[2025-01-06] MEDS: AMLODIPINE BESYLATE 5 MG TABLET PO (08:32)
[2025-01-06] MEDS: METFORMIN HCL 500 MG TABLET PO ×2 (08:32→17:55)
[2025-01-06] MEDS: POTASSIUM CHLORIDE 10 MEQ ER TABLET PO (08:32)
[2025-01-06] MEDS: ENOXAPARIN SODIUM 40 MG/0.4 ML SYRINGE SUBQ ×2 (08:32→22:12)
[2025-01-06] MEDS: LISINOPRIL 20 MG TABLET PO (08:32)
[2025-01-06] MEDS: PIOGLITAZONE 15 MG TABLET 45 MG PO (08:33)
[2025-01-06] MEDS: METOPROLOL SUCCINATE 100 MG TAB.ER.24H PO (08:33)
[2025-01-06] MEDS: FUROSEMIDE 40 MG TABLET PO (08:33)
--- NOTE | 2025-01-06 11:59 | PM.IMPN1 ---
Progress Note: A&P Assessment and Plan (1) Cellulitis of left leg: (2) Uncontrolled diabetes mellitus: (3) Adult BMI 50.0-59.9 kg/sq m: Plan Assessment: Cellulitis of left lower extremity. History of multiple severe cellulitis is over the last couple years, including 1 within the last year or so that gave him sepsis and an open wound for which he needed long-term outpatient wound care. Risk and possibility of sepsis and bacteremia because of the patient's shaking chills and rigors at home. Right now 1 out of 2 blood cultures began to report positive for gram-positive cocci in clusters. Morbid obesity with BMI 55.6. Diabetes mellitus type 2 uncontrolled with hemoglobin A1c 8.3. Hypertension. Plan: Continue inpatient hospital care. Continue broad spectrum antibiotics with IV vancomycin and IV ertapenem. Check blood sugars ACHS. Treat hyperglycemia with sliding scale insulin. Check ESR and CRP daily with morning labs. ESR yesterday was 29 and is up to 49 today. CRP was 5.20 yesterday and it is improved a little bit to 4.40 today. Lovenox 40 mg subcutaneously daily for DVT prophylaxis. Elevate the leg is much as possible when he is sleeping flat in bed and during the daytime. Encourage walks around the room in the hallway to improve his circulation. Internal Medicine - PN: Subj Subjective Interval history: Today the patient says that his leg is feeling better. It is less painful. He still has some pain around the ankle, more in the back. He recalls a hospital stay about a year ago in March in [place], and it is possible that I may have taken care of him up there. Back then he had a bad cellulitis to this left leg and he describes that the skin split open while my daughter and I were waiting in the ER and he had to be hospitalized for several days with that with sepsis and that he spent a long time going to the wound care center. After that the wound care center did arrange for him to have a Lymphapress boots which he has at home and he uses these for about 1 hour at nighttime before going to bed. He denies any diarrhea. No abdominal pain. No cough. No chest pain. The patient is interested in going home today, as soon as possible, because today is Tuesday and his family members can give him a ride. But one of the 2 blood cultures alerted for positivity and so far it is growing gram-positive cocci in clusters. It is impossible to know this early whether that will represent bacteremia or skin contaminant but I told the patient that given the possibility of bacteremia the best thing for him to do is to stay in the hospital and continue IV antibiotics for 24 more hours and allow time for the blood cultures to be resulted in lab. We discussed ambulation and leg elevation. The patient's weight is 191 kg. His BMI is 56. 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 So he spends all day in a seated position. He can have only limited ambulation due to chronic low back pain. But I told him that I want him to take some time to be able to get gentle ambulation to get his circulation going and then elevate the leg to reduce edema so he can reduce the risk of having open wounds or drainage from this leg which would certainly send him back and put him at risk for more infectious cellulitis. Exam Narrative Exam Narrative: Pulmonary: Clear to auscultation. No wheezing. No rhonchi. GI: Protuberant. Soft. Very distant to auscultation but is bowel sounds are normal. Cardiac: Also very distant to auscultation. No murmurs. Lower extremities: Right leg: No acute cellulitis at this time. Based on the ER doctor's note I think there is some concern there is cellulitis yesterday but now just has chronic venous stasis changes. Left leg: The cellulitis has been outlined in black marker just below his knee. There is no spread of the cellulitis above the knee. The redness has recessed about 2 to 3 cm below the black marker line. The warmth is about 50% improved compared to yesterday. No areas of drainage. No areas of purulence. It is more red now but I think that is because the patient took a shower this morning and then the nurse used plenty of good skin moisturizer on the leg so it actually appears more red than it did yesterday but the actual inflammation and pain and warmth is about 50% improved compared to yesterday. Constitutional Vital Signs, click to edit/add: Last Vital Signs Temp 97.9 F 01/06/25 11:29 Pulse 77 01/06/25 11:29 Resp 18 11/02/25 11:29 BP 127/72 01/06/25 11:29 Pulse Ox 93 L 01/06/25 11:29 O2 Del Method Room Air 01/06/25 11:29 O2 Flow Rate 1 01/06/25 07:23 Internal Medicine - PN: Obj Da Labs Labs: Laboratory Results - last 24 hr 01/04/25 01/06/25 01/06/25 09:58 06:12 06:13 WBC 7.6 RBC 4.40 L Hgb 13.3 L Hct 42.0 MCV 95.5 H MCH 30.2 MCHC 31.7 RDW 14.6 Plt Count 125 L MPV 10.2 Neut % (Auto) 80.9 H Lymph % (Auto) 7.7 L [place] % (Auto) 9.3 Eos % (Auto) 1.3 Baso % (Auto) 0.3 Neut # (Auto) 6.2 Lymph # (Auto) 0.6 L [place] # (Auto) 0.7 Eos # (Auto) 0.1 Baso # (Auto) 0.0 Abs Immat Gran (auto) 0.04 H Imm/Tot Granulo (auto) 0.5 ESR 49 H Sodium 136 Potassium 4.8 Chloride 99 Carbon Dioxide 31.2 Anion Gap 10.6 BUN 19.0 H Creatinine 0.69 L Est GFR ( Amer) >60 Est GFR (Non-Af Amer) >60 BUN/Creatinine Ratio 27.5 Glucose 168 H Calcium 8.9 C-Reactive Protein 4.40 H Vancomycin Trough 13.4 Specimen Source Blood A.calcoaceticus-baumannii cmplx PCR Not detected Bacteroides fragilis Not detected Margaret albicans (PCR) Not detected Margaret auris (PCR) Not detected C. glabrata (PCR) Not detected C. krusei (PCR) Not detected C. parapsilosis (PCR) Not detected C. tropicalis (PCR) Not detected C. neoform/gattii (PCR) Not detected Enterobacterales (PCR) Not detected E. cloacae complex PCR Not detected Enterococc faecalis PCR Not detected Enterococc faecium PCR Not detected E. coli (PCR) Not detected H. influenzae (PCR) Not detected Klebsiella aerogenes (PCR) Not detected Klebsiella oxytoca PCR Not detected K. pneumoniae group (PCR) Not detected List. monocytogenes PCR Not detected N. meningitidis (PCR) Not detected Proteus spp. (copies/mL) Not detected Salmonella spp. (PCR) Not detected Serratia marcescens PCR Not detected Staphylococcus sp PCR Not detected Staph aureus (PCR) Not detected mecA/C & MREJ Resist Gene Not applicable mecA/C-Methicil Resis Gene Not applicable mcr-1 Colistin Res Gene PCR Not applicable Staph epidermidis (PCR) Not detected Staph lugdunensis (TEM-PCR) Not detected S. maltophilia (PCR) Not detected Streptococcus sp PCR Not detected Strep agalactiae (PCR) Not detected Strep pneumoniae (PCR) Not detected S. pyogenes (PCR) Not detected P. aeruginosa (PCR) Not detected Blanca/B-Vanco Res Genes Not applicable blaIMP Car res Gene PCR Not applicable KPC (blaKPC) Detect PCR Not applicable NDM (blaNDM) Detect PCR Not applicable OXA-48 Carbapenem Resis Gene (PCR) Not applicable blaVIM Car Res Gene PCR Not applicable CTX-M ESBL (PCR) Not applicable
[2025-01-06] MEDS: ACETAMINOPHEN 325 MG TABLET 650 MG PO (13:51)
[2025-01-06] MEDS: ERTAPENEM SODIUM 1 GM in 0.9 % SODIUM CHLORIDE 50 ML IV (14:18)
[2025-01-06] MEDS: VANCOMYCIN HCL 2,000 MG in 0.9 % SODIUM CHLORIDE 500 ML 250 MG IV (15:26)
[2025-01-06] MEDS: ATORVASTATIN CALCIUM 40 MG TABLET PO (22:11)
[2025-01-06] MEDS: MELOXICAM 7.5 MG TABLET 15 MG PO (22:12)
[2025-01-07] VITALS (8 sets, daily range): BP systolic 100–173; BP diastolic 63–81; PULSE 64–79; TEMP 36.6–37.2; O2SAT 91–96
[2025-01-07] MEDS: VANCOMYCIN HCL 2,000 MG in 0.9 % SODIUM CHLORIDE 500 ML 250 MG IV ×2 (03:51→15:50)
[2025-01-07 07:09] LABS: Hematocrit 42.8 % (42.0-54.0); Hemoglobin 13.7 g/dL (14.0-18.0); Immature Granulocytes Abs Auto 0.03 10^3/uL (0.00-0.03); Immature Granulocytes Pct Auto 0.5 % (0.0-0.5); Lymphocytes Absolute Auto 0.5 10^3/uL (1.2-3.8); Mean Corpuscular HGB Conc 32.0 g/dL (29.9-35.2); Mean Corpuscular Hemoglobin 30.4 pg (25.9-34.0); Mean Corpuscular Volume 95.1 fL (80.0-94.0); Platelet Count 140 10^3/uL (150-450); Red Blood Count 4.50 10^6/uL (4.70-6.10); White Blood Count 6.6 10^3/uL (4.0-11.0)
[2025-01-07 07:39] LABS: Anion Gap 9.7; Blood Urea Nitrogen 18.0 mg/dL (7.0-18.0); Calcium 8.9 mg/dL (8.5-10.1); Carbon Dioxide 32.8 mmol/L (21.0-32.0); Chloride 99 mmol/L (98-107); Estimated GFR (African America >60 (>=60 mL/min/1.73m^2); Estimated GFR (Non-African Ame >60 (>=60 mL/min/1.73m^2); Glucose 151 mg/dL (74-106); Potassium 4.5 mmol/L (3.5-5.1); Sodium 137 mmol/L (136-145)
--- NOTE | 2025-01-07 08:00 | CM.NOTE ---
Rounds made with Dr. Sunshine, discussed plan of care with pt and need for continued treatment. Dr. Sunshine discussed lab finding and blood cultures. No discharge today.
[2025-01-07] MEDS: PIOGLITAZONE 15 MG TABLET 45 MG PO (08:27)
[2025-01-07] MEDS: POTASSIUM CHLORIDE 10 MEQ ER TABLET PO (08:28)
[2025-01-07] MEDS: ENOXAPARIN SODIUM 40 MG/0.4 ML SYRINGE SUBQ ×2 (08:28→21:16)
[2025-01-07] MEDS: METFORMIN HCL 500 MG TABLET PO ×2 (08:28→16:50)
[2025-01-07] MEDS: FUROSEMIDE 40 MG TABLET PO (08:28)
[2025-01-07] MEDS: AMLODIPINE BESYLATE 5 MG TABLET PO (08:28)
[2025-01-07] MEDS: LISINOPRIL 20 MG TABLET PO (08:28)
[2025-01-07] MEDS: METOPROLOL SUCCINATE 100 MG TAB.ER.24H PO (08:28)
[2025-01-07] MEDS: INSULIN GLARGINE LIXISENATIDE SUBQ (08:29)
[2025-01-07] MEDS: [UNRECOGNIZED DRUG - OTHER] SUBQ (08:29)
--- NOTE | 2025-01-07 09:50 | P.PN_ITS ---
Progress Note: Subjective Subjective Interval history: Patient continues to have pain and discomfort in the left leg. No abdominal pain. No nausea or vomiting. Exam Narrative Exam Narrative: [pt is awake and alert. oriented to place, time and person HEENT: [place] conjunctiva and NL buccal mucosa Neck: Supple, no tenderness Endocrine: No Thyromegaly. Vascular: No JVD or carotid bruit. Lymphatic: No cervical lymphadenopathy. Chest: CTA no DTP. Heart RRR, no extra sound or murmur. Abd: Soft, no tenderness, no rebound and no rigidity. Increase abd girth therefore clinically I could not exclude the possibility of intra abd mass or organomegaly. LE: Erythema, induration, tenderness involving the left leg from the knee down to the ankle anteriorly, medially, laterally and posteriorly. I could not feel the dorsalis pedis pulse but nurse was able to Doppler's dorsalis pedis. No clinical evidence of abscess formation superficially. Neuro: A A O. Nl speech, comprehension and attention. Nl and symetrical motor and tone examination through out. []] Constitutional Vital Signs, click to edit/add: Last Vital Signs Temp 98.0 F 01/07/25 07:02 Pulse 74 01/07/25 07:02 Resp 18 01/07/25 07:02 BP 132/74 01/07/25 07:02 Pulse Ox 91 L 01/07/25 07:02 O2 Del Method Room Air 01/07/25 07:02 O2 Flow Rate 2 01/06/25 20:52 Progress Note: Objective Labs Labs: Short CBC 01/07/25 Range/Units 06:57 WBC 6.6 (4.0-11.0) 10^3/uL Hgb 13.7 L (14.0-18.0) g/dL Hct 42.8 (42.0-54.0) % Plt Count 140 L (150-450) 10^3/uL BMP 01/07/25 06:57 Sodium 137 Potassium 4.5 Chloride 99 Carbon Dioxide 32.8 H BUN 18.0 Creatinine 0.59 L Glucose 151 H Calcium 8.9 Progress Note: A&P Assessment and Plan (1) Cellulitis of left leg: (2) Uncontrolled diabetes mellitus: (3) Adult BMI 50.0-59.9 kg/sq m: Plan Sepsis present on admission Extensive cellulitis involving the left leg from the knee down to the ankle anteriorly, medially, laterally and posteriorly. No clinical evidence of compartment syndrome, dopplerable pulses. No cyanosis. Bacteremia, blood cultures positive for gram-positive organism in a cluster. Could be staph. Could be MRSA. Continue vancomycin. Dose is managed by pharmacy. Consideration to discontinue ertapenem CAT scan of the leg rule out deep tissue abscess and/or osteomyelitis Venous studies negative for DVT Hypertension Fair control. Continue lisinopril, amlodipine and Toprol. Diabetes, fair but not optimal control. A1c is above 8. Increase Lantus to 35 units daily Continue meal short acting insulin Continue sliding scale. Obesity Diet, exercise and lifestyle modification. DVT prophylaxis Lovenox 40 mg SQ twice a day. Thrombocytopenia Likely secondary to sepsis Improving Chronic, subacute medical conditions not listed above, abnormal labs and imaging. These would need to be addressed. Could be addressed later on or in the outpatient setting by PCP collaboration with other needed outpatient providers when time and condition are appropriate.
--- NOTE | 2025-01-07 10:01 | CM.NOTE ---
CM in to speak with pt about concerns of job and not being released from hospital. Pt voices he was able to contact his boss this am and has taken care of concerns. Pt voices he does not need his place of employment notified or CM to send anything. Pt denies any concerns at this time. Pt is active and independent.
--- NOTE | 2025-01-07 10:49 | CT_ITS ---
The [address] [address] Patient Name: JUAN VILLAVICENCIO MRN: [id number] date: 1965 Sex: M Assigned Patient Location: [place] Current Patient Location: [place] Accession/Order Number: [id number] Exam Date: 01/07/2025 10:40 Report Date: 01/07/2025 11:40 At the request of: NELLY MACEDO MD Procedure: CT lower leg LT w con CT LEFT LOWER EXTREMITY WITH CONTRAST CLINICAL DATA: Cellulitis with pain, swelling and erythema at the left lower leg for the past few days. COMPARISON: Plain films 01/04/2025 Spiral images were obtained through the left lower leg following 100 mL of Omnipaque 300. This CT exam was performed using one or more following dose reduction techniques: Automated exposure control, adjustment of the mA and/or kV according to patient size, or use of iterative reconstruction technique. There is no acute fracture, dislocation or bony destruction. A chronic-appearing cleft is visualized at the navicular. There is narrowing at the medial tibiofemoral joint compartment. There are small marginal spurs at the knee. There is also a small enthesophyte at the insertion of quadriceps tendon. No knee effusion is seen. There are tiny calcaneal spurs. Spurring is also present at the dorsum of the tarsals. There is diffuse subcutaneous edema throughout the imaged leg, greater distally. There is also a small amount of fluid that layers over the muscle compartments. Skin thickening is visualized, greatest toward the ankle. There are no loculated fluid collections with rim enhancement to confirm a soft tissue abscess. CT/CT lower leg LT w con IMPRESSION: MILD DEGENERATIVE CHANGES. NO ACUTE BONY FINDINGS. DIFFUSE SUBCUTANEOUS EDEMA AND SKIN THICKENING COMPATIBLE WITH HISTORY OF CELLULITIS. NO OBVIOUS SOFT TISSUE ABSCESS. IF THERE IS A PERSISTENT FOCAL AREA OF CONCERN, DIRECTED ULTRASOUND COULD BE CONSIDERED. Impression dictated by: Divya Hoff M.D. 01/07/2025 11:40 AM Dictation Location: [place] [address] Electronically authenticated by: [id number] Y Date: 01/07/2025 11:40
[2025-01-07] MEDS: INSULIN ASPART 300 UNIT/3 ML PEN SUBQ ×4 (12:06→16:47)
--- NOTE | 2025-01-07 12:34 | PHOTOS ---
left leg cellulitis
[2025-01-07] MEDS: ERTAPENEM SODIUM 1 GM in 0.9 % SODIUM CHLORIDE 50 ML IV (15:17)
[2025-01-07] MEDS: MELOXICAM 7.5 MG TABLET 15 MG PO (21:16)
[2025-01-07] MEDS: ATORVASTATIN CALCIUM 40 MG TABLET PO (21:17)
[2025-01-08] VITALS (8 sets, daily range): BP systolic 121–174; BP diastolic 66–83; PULSE 72–90; TEMP 36.6–36.8; O2SAT 90–95
[2025-01-08] MEDS: VANCOMYCIN HCL 2,000 MG in 0.9 % SODIUM CHLORIDE 500 ML 250 MG IV ×2 (03:42→15:01)
--- NOTE | 2025-01-08 08:25 | CM.NOTE ---
Rounds made with Dr. Sunshine, discussed plan of care with pt. No discharge today, continue treatment as ordered.
[2025-01-08] MEDS: PIOGLITAZONE 15 MG TABLET 45 MG PO (08:26)
[2025-01-08] MEDS: LIXISENATIDE SUBQ (08:27)
[2025-01-08] MEDS: INSULIN GLARGINE SUBQ (08:27)
[2025-01-08] MEDS: INSULIN ASPART 300 UNIT/3 ML PEN SUBQ ×6 (08:27→16:22)
[2025-01-08] MEDS: METOPROLOL SUCCINATE 100 MG TAB.ER.24H PO (08:30)
[2025-01-08] MEDS: LISINOPRIL 20 MG TABLET PO (08:30)
[2025-01-08] MEDS: ENOXAPARIN SODIUM 40 MG/0.4 ML SYRINGE SUBQ ×2 (08:30→21:05)
[2025-01-08] MEDS: METFORMIN HCL 500 MG TABLET PO ×2 (08:30→16:19)
[2025-01-08] MEDS: FUROSEMIDE 40 MG TABLET PO ×2 (08:30→21:04)
[2025-01-08] MEDS: POTASSIUM CHLORIDE 10 MEQ ER TABLET PO (08:30)
[2025-01-08] MEDS: AMLODIPINE BESYLATE 5 MG TABLET PO (08:31)
--- NOTE | 2025-01-08 11:02 | P.PN_ITS ---
Progress Note: Subjective Subjective Interval history: Patient continues to have pain and discomfort in the left leg. No abdominal pain. No nausea or vomiting. Exam Narrative Exam Narrative: [pt is awake and alert. oriented to place, time and person HEENT: [place] conjunctiva and NL buccal mucosa Neck: Supple, no tenderness Endocrine: No Thyromegaly. Vascular: No JVD or carotid bruit. Lymphatic: No cervical lymphadenopathy. Chest: CTA no DTP. Heart RRR, no extra sound or murmur. Abd: Soft, no tenderness, no rebound and no rigidity. Increase abd girth therefore clinically I could not exclude the possibility of intra abd mass or organomegaly. LE: Improvement of the erythema, induration, tenderness involving the left leg from the knee down to the ankle anteriorly, medially, laterally and posteriorly compared to 01/07. Nurse was able to Doppler dorsalis pedis pulse, same intensity as the right 1. Neuro: A A O. Nl speech, comprehension and attention. Nl and symetrical motor a nd tone examination through out. []] Constitutional Vital Signs, click to edit/add: Last Vital Signs Temp 97.9 F 01/08/25 08:05 Pulse 78 01/08/25 08:05 Resp 18 01/08/25 08:05 BP 150/79 H 01/08/25 08:05 Pulse Ox 93 L 01/08/25 10:58 O2 Del Method Room Air 01/08/25 10:58 O2 Flow Rate 2 01/08/25 03:27 Progress Note: A&P Assessment and Plan (1) Cellulitis of left leg: (2) Uncontrolled diabetes mellitus: (3) Adult BMI 50.0-59.9 kg/sq m: Plan Sepsis present on admission Extensive cellulitis involving the left leg from the knee down to the ankle anteriorly, medially, laterally and posteriorly. No clinical evidence of compartment syndrome, dopplerable pulses. No cyanosis. Bacteremia, blood cultures positive for gram-positive organism in a cluster. Could be staph. Could be MRSA. Continue vancomycin. Dose is managed by pharmacy. Consideration to discontinue ertapenem CAT scan of the leg rule out deep tissue abscess and/or osteomyelitis. CAT scan does not show osteomyelitis or deep tissue abscess Venous studies negative for DVT Repeat blood cultures Continue IV antibiotic. Hypertension Fair control. Continue lisinopril, amlodipine and Toprol. Diabetes, fair control Continue Lantus to 35 units daily Continue meal short acting insulin Continue sliding scale. Obesity Diet, exercise and lifestyle modification. DVT prophylaxis Lovenox 40 mg SQ twice a day. Thrombocytopenia Likely secondary to sepsis Improving Chronic, subacute medical conditions not listed above, abnormal labs and imaging. These would need to be addressed. Could be addressed later on or in the outpatient setting by PCP collaboration with other needed outpatient providers when time and condition are appropriate.
--- NOTE | 2025-01-08 11:25 | PHOTOS ---
Left Leg Front
--- NOTE | 2025-01-08 11:26 | PHOTOS ---
Left Leg Lateral
--- NOTE | 2025-01-08 13:20 | CM.NOTE ---
Nash txt sent to Dr. Sunshine regarding blood culture final results, cardiac echo ordered r/o vegetation. Order placed per CM
[2025-01-08] MEDS: ERTAPENEM SODIUM 1 GM in 0.9 % SODIUM CHLORIDE 50 ML IV (14:25)
[2025-01-08] MEDS: ATORVASTATIN CALCIUM 40 MG TABLET PO (21:04)
[2025-01-08] MEDS: MELOXICAM 7.5 MG TABLET 15 MG PO (21:05)
[2025-01-09] VITALS: BP 148/74; PULSE 91; TEMP 36.6; O2SAT 94
[2025-01-09 04:00] VITALS: BP 149/83; PULSE 85; TEMP 36.6; O2SAT 92
[2025-01-09] MEDS: VANCOMYCIN HCL 2,000 MG in 0.9 % SODIUM CHLORIDE 500 ML 250 MG IV ×2 (04:09→15:30)
[2025-01-09 05:37] LABS: Hematocrit 44.7 % (42.0-54.0); Hemoglobin 13.9 g/dL (14.0-18.0); Mean Corpuscular HGB Conc 31.1 g/dL (29.9-35.2); Mean Corpuscular Hemoglobin 29.6 pg (25.9-34.0); Mean Corpuscular Volume 95.3 fL (80.0-94.0); Platelet Count 173 10^3/uL (150-450); Red Blood Count 4.69 10^6/uL (4.70-6.10); White Blood Count 6.6 10^3/uL (4.0-11.0)
[2025-01-09 05:52] LABS: Anion Gap 6.1; Blood Urea Nitrogen 15.0 mg/dL (7.0-18.0); Calcium 9.2 mg/dL (8.5-10.1); Carbon Dioxide 37.8 mmol/L (21.0-32.0); Chloride 98 mmol/L (98-107); Estimated GFR (African America >60 (>=60 mL/min/1.73m^2); Estimated GFR (Non-African Ame >60 (>=60 mL/min/1.73m^2); Glucose 162 mg/dL (74-106); Potassium 3.9 mmol/L (3.5-5.1); Sodium 138 mmol/L (136-145)
--- NOTE | 2025-01-09 07:20 | CM.NOTE ---
Rounds made with Dr. Sunshine, pt sleeping at this time. Dr. Sunshine will come back to assess pt.
[2025-01-09 07:52] VITALS: BP 140/78; PULSE 82; TEMP 36.6; O2SAT 98
[2025-01-09] MEDS: PIOGLITAZONE 15 MG TABLET 45 MG PO (09:10)
[2025-01-09] MEDS: FUROSEMIDE 40 MG TABLET PO (09:10)
[2025-01-09] MEDS: LISINOPRIL 20 MG TABLET PO (09:10)
[2025-01-09] MEDS: ACETAMINOPHEN 325 MG TABLET 650 MG PO (09:10)
[2025-01-09] MEDS: METFORMIN HCL 500 MG TABLET PO ×2 (09:10→16:47)
[2025-01-09] MEDS: METOPROLOL SUCCINATE 100 MG TAB.ER.24H PO (09:10)
[2025-01-09] MEDS: ENOXAPARIN SODIUM 40 MG/0.4 ML SYRINGE SUBQ (09:10)
[2025-01-09] MEDS: POTASSIUM CHLORIDE 10 MEQ ER TABLET PO (09:11)
[2025-01-09] MEDS: AMLODIPINE BESYLATE 5 MG TABLET PO (09:11)
[2025-01-09] MEDS: INSULIN ASPART 300 UNIT/3 ML PEN SUBQ ×6 (09:12→16:46)
[2025-01-09] MEDS: LIXISENATIDE SUBQ (09:13)
[2025-01-09] MEDS: INSULIN GLARGINE SUBQ (09:13)
--- NOTE | 2025-01-09 11:09 | PM.DS1 ---
DS: Providers Provider Date of admission: 01/04/25 14:23 Primary care physician: MARIA L MITTAL DS: Diagnosis Discharge Diagnosis (1) Cellulitis of left leg: (2) Uncontrolled diabetes mellitus: (3) Adult BMI 50.0-59.9 kg/sq m: Plan As listed above, below and others that are not listed DS: Summary Hospital Course Hospital Course: Mr. Bean is a 59-year-old gentleman with a known history of hypertension and diabetes. Previous history of left leg infection. Patient came in with progressive pain, swelling and redness involving the left leg from the knee down to the ankle anteriorly, medially, laterally and posteriorly. Sepsis present on admission, resolved Extensive cellulitis involving the left leg from the knee down to the ankle anteriorly, medially, laterally and posteriorly. No clinical evidence of compartment syndrome, dopplerable pulses. No cyanosis. +1 out of 2 bilateral blood culture for micrococcus. Likely contaminant. Repeat blood culture is negative thus far. Continue vancomycin and ertapenem. Dose is managed by pharmacy. CAT scan of the leg rule out deep tissue abscess and/or osteomyelitis. CAT scan does not show osteomyelitis or deep tissue abscess Venous studies negative for DVT Repeat blood cultures pending, negative thus far Since admission, there is partial improvement of the left leg cellulitis. Probably 50% better compared to admission state. CRP is trending down. White count is back to normal. Patient however continues to have noticeable degree of erythema, induration and tenderness. I recommend the patient to have extended course of IV antibiotic. Unfortunately, patient has been by again every day to be discharged so he can go back to work. 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 At this time I would have only 1 option which is to respect his wishes and request to be discharged and arrange for him to have an outpatient IV antibiotic infusion. I will discharge patient on intravenous ertapenem daily for 10 days as well as linezolid 600 mg twice daily. This combination of antibiotic regiment will target Gram positive including MRSA, gram-negative including ESBL, anaerobes. No pseudomonal coverage but I do not believe that patient has Pseudomonas infection. The patient is to follow-up with infectious disease Dr. Navarro to monitor his cellulitis and to provide further advice and recommendations as far as antibiotic selection and duration as well as suppressive therapy given the fact that patient has had this before few times. Hypertension Fair control. Continue lisinopril adjusted dose down to 20 mg, amlodipine 5 mg and Toprol 100 mg. Diabetes, fair control Continue Lantus to 35 units daily Continue meal short acting insulin Continue sliding scale. Patient will be instructed to do the following: Check your blood sugar 3 times a day before meals. Document these numbers on a blood glucose log and bring them with you to your follow-up appointment with your primary care doctor. Communicate with your primary care doctor or military personnel specialist if your blood sugar is under 100 or above 300 on 2 consecutive checks. Communicate with your primary care doctor or military personnel specialist if you have any questions about your diabetes medications. Signs of a low blood sugar include sweating, racing heart, dizziness and/or weakness. Check your blood sugar if you have any of the symptoms. Obesity Diet, exercise and lifestyle modification. DVT prophylaxis Lovenox 40 mg SQ twice a day. Thrombocytopenia Likely secondary to sepsis Resolved. Chronic, subacute medical conditions not listed above, abnormal labs and imaging. These would need to be addressed. Could be addressed later on or in the outpatient setting by PCP collaboration with other needed outpatient providers when time and condition are appropriate. Suspect sleep apnea. Will arrange for patient to have an outpatient sleep study. Patient has multiple medical issues as listed above and others that are not listed. Resolution of sepsis. White count is back to normal. CRP is trending down. Patient continues to have noticeable erythema, induration and tenderness in the left leg from the knee down to the ankle, in all direction. No evidence of compartment syndrome. Dopplerable pulse. No cyanosis. Patient is requesting to be discharged home. I will arrange for patient to have an outpatient IV antibiotic infusion for the next 10 days. Ertapenem daily and linezolid 600 twice a day for 10 days. Patient is to follow-up with Dr. Navarro on 01/17. At this time, I do not have any legal justification to extend inpatient hospitalization against his will and desire to be discharged home. Patient however will require close and frequent monitoring as well as additional work-up, investigation and therapeutic intervention that could take place from this point on post discharge. That is to prevent relapse, decompensation, rehospitalization and other medical implications.. I instructed patient to ask her primary care doctor to obtain [facility] record entirely to address abnormalities seen on labs and imaging that I have and have not addressed during this hospitalization, follow-up on pending blood work, imaging and pathology is if available and to follow-up on needed medical care in the outpatient setting. Time Spent with Patient Time attestation: Total time spent providing and/or coordinating discharge services: Time spent: greater than 30 minutes Exam Constitutional Vital Signs, click to edit/add: Last Vital Signs Temp 97.8 F 01/09/25 07:52 Pulse 82 01/09/25 07:52 Resp 18 01/09/25 07:52 BP 140/78 01/09/25 07:52 Pulse Ox 98 01/09/25 07:52 O2 Del Method Nasal Cannula 01/09/25 07:52 O2 Flow Rate 2 01/09/25 07:52 DS: Data Data Completed and Pending Labs on day of discharge: Labs from last 24 hours 01/09/25 05:23 WBC 6.6 RBC 4.69 L Hgb 13.9 L Hct 44.7 MCV 95.3 H MCH 29.6 MCHC 31.1 RDW 14.3 Plt Count 173 MPV 10.0 ESR 60 H Sodium 138 Potassium 3.9 Chloride 98 Carbon Dioxide 37.8 H Anion Gap 6.1 BUN 15.0 Creatinine 0.79 Est GFR ( Amer) >60 Est GFR (Non-Af Amer) >60 BUN/Creatinine Ratio 19.0 Glucose 162 H Calcium 9.2 C-Reactive Protein 1.37 H Preliminary micro results at discharge 01/04/25 09:58 Blood Culture Result 2 - Preliminary Blood 01/04/25 09:45 Blood Culture Result 1 - Preliminary Blood NO GROWTH AT 36-48 HOURS. FINAL TO FOLLOW. Discharge Plan Discharge Disposition: Home, Self-Care Discharge Medications: New linezolid 600 mg tablet 600 mg PO BID 10 Days Qty: 20 0RF ertapenem 1 gram recon soln 1 g IV DAILY 10 Days Continued amlodipine 5 mg tablet 5 mg PO QDAY ergocalciferol (vitamin D2) 1,250 mcg (50,000 unit) capsule 1,250 mcg PO .COMPLEX Rx Instructions: 1,250 mcg orally once a week; furosemide 40 mg tablet 40 mg PO DAILY metoprolol succinate 100 mg tablet extended release 24 hr 100 mg PO DAILY potassium chloride 10 mEq tablet,ER particles/crystals 10 meq PO DAILY rosuvastatin 10 mg tablet 10 mg PO DAILY metformin 1,000 mg tablet 500 mg PO BID tizanidine 4 mg tablet 4 mg PO .QHS PRN (Reason: muscle spasticity) Changed meloxicam 15 mg tablet 15 mg PO .qhs PRN (Reason: pain) Qty: 0 0RF lisinopril 40 mg tablet 20 mg PO DAILY Qty: 0 0RF Soliqua 100/33 100 unit-33 mcg/mL insulin pen 35 unit SUBCUT QDAY Qty: 0 0RF Rx Instructions: THERAPEUTIC INTERCHANGE TO LANTUS 25 UNITS QD WHILE IN THE HOSPITAL Discontinued pioglitazone 45 mg tablet 45 mg PO QDAY Print Language: Kazakh Activity Restrictions/Additional Instructions: I may not have addressed or treated all of your medical illnesses or the abnormal blood work or imaging studies during this hospitalization. Please ask your primary care provider to obtain [facility] records entirely to follow up on all of the abnormal physical, laboratory, and imaging findings that I have not addressed. Please return back to the emergency room or seek medical attention if your symptoms worsen or return. Check your blood sugar 3 times a day before meals. Document these numbers on a blood glucose log and bring them with you to your follow-up appointment with your primary care doctor. Communicate with your primary care doctor or military personnel specialist if your blood sugar is under 100 or above 300 on 2 consecutive checks. Communicate with your primary care doctor or military personnel specialist if you have any questions about your diabetes medications. Signs of a low blood sugar include sweating, racing heart, dizziness and/or weakness. Check your blood sugar if you have any of the symptoms. Discharging you from [facility] does not mean that your medical care ends here and now. You may still need additional monitoring, work up, investigation, and treatment plan to be handled from this point on by out patient providers including your primary care provider and specialists. For any medication question, please contact your retail pharmacist or your primary care provider. Please follow-up with Dr. Navarro on 01/17 Dr. Navarro will decide if we need to extend antibiotic treatment and when to remove the PICC line, midline Blood test CBC, BMP, CRP weekly for 2 weeks, results are to be communicated to PCP at Dr. Navarro I would recommend you to have a sleep study to make sure that you do not have sleep apnea Thank you. Forms: Portal Instructions Follow Up Appointments: Tue. 01/14 @ 4pm with MEGGAN Lawler [phone] Th01/17 @ 1p with Dr. Navarro [address] [place] [address] Sleep Clinic will contact patient to set up appt.
--- NOTE | 2025-01-09 11:14 | PHOTOS ---
left inner leg
--- NOTE | 2025-01-09 11:14 | PHOTOS ---
left front leg
--- NOTE | 2025-01-09 11:15 | PHOTOS ---
left front leg
--- NOTE | 2025-01-09 11:16 | PHOTOS ---
left lateral leg
--- NOTE | 2025-01-09 11:17 | PHOTOS ---
left leg posterior
[2025-01-09 11:36] VITALS: O2SAT 91
--- NOTE | 2025-01-09 11:40 | CM.NOTE ---
CM in to speak with pt regarding discharge planning, IV antibiotics, labs and midline placement. Pt verbalizes understanding regarding [facility] clinic for continued IV antibiotics. Discussed with pt sleep study after discharge and completed IV antibiotics. Pt is in agreement to sleep study. CM filled out [facility] form and sleep study order. Faxed sleep study order to sleep clinic, explained to pt that they would contact him for appt. Faxed [facility] form to Central[facility] scheduling, copy provided to Andrez Hyman and pharmacy. Updated pt that [facility] will contact him for time and date to start antibiotics. Pt will get today's dose of antibiotic at hospital and start next dose on 01/10 in [facility].
[2025-01-09 12:42] VITALS: BP 141/83; PULSE 76; TEMP 36.7; O2SAT 92
--- NOTE | 2025-01-09 13:39 | CM.NOTE ---
CM back in to discuss with pt return to work date. Pt has been attempting to contact boss about return to work. Pt concerned that work will not allow him to return with midline. CM awaiting answer to make sure [facility] appointment is scheduled around pt's work. CM or SW will check back again.
--- NOTE | 2025-01-09 14:02 | CM.NOTE ---
[facility] scheduling called and scheduled pt for 5:30 on 01/10. CM updated pt, pt verbalizes understanding. Wrote date and time on pt's [facility] sheet and pt provided with phone number if he would need to change appt.
[2025-01-09] MEDS: ERTAPENEM SODIUM 1 GM in 0.9 % SODIUM CHLORIDE 50 ML IV (14:14)
--- NOTE | 2025-01-10 13:11 | CM.DCFOLLOWU ---
Person spoke with:Braulio How are you feeling? Good How is your pain? No pain Did you understand your discharge instructions? Yes Do you have any questions about your discharge instructions? No Were you given any prescriptions at discharge? Yes Were you able to get your prescriptions filled? Yes Do you understand how to take your medications as ordered? Yes Do you have any questions about your follow up appointment and do you plan to keep your follow up appointment? No questions and yes he plans on keeping his appts Is there anything else that you would like to discuss? No Questions/Comments/Concerns/Other: Patient will be returning back to work on Tuesday (01/14/2025)
== END 2025-01-09 17:40 | disposition home or self-care (01) | DRG 872 ==
LOC: ER 12:13 → MS 14:29
PROVIDERS: Hospitalist; Admitting Provider Internal Medicine; Emergency Provider Emergency Medicine; PCP Physician Assistant; Visit Provider Internal Medicine
DX: A41.9 Sepsis, unspecified organism (principal); L03.116 Cellulitis of left lower limb; Z68.43 Body mass index [BMI] 50.0-59.9, adult; E11.65 Type 2 diabetes mellitus with hyperglycemia; Z79.4 Long term (current) use of insulin; Z79.84 Long term (current) use of oral hypoglycemic drugs; E66.01 Morbid (severe) obesity due to excess calories; I10 Essential (primary) hypertension; E78.00 Pure hypercholesterolemia, unspecified; Z87.891 Personal history of nicotine dependence; M54.50 Low back pain, unspecified; G89.29 Other chronic pain; D69.6 Thrombocytopenia, unspecified; G47.30 Sleep apnea, unspecified
CPT/HCPCS: 36410; 36415; 73590; 73701; 76376; 80048; 80053; 80202; 82948; 83036; 83605; 85007; 85025; 85027; 85652; 86140; 87040; 87088; 87150; 93005; 93971; 94761; 96365; 99285; C1887; J0690; J1335; J1650; J3373; Q9967

== ENCOUNTER 2025-01-16 15:20 | Outpatient (RCR) | payer OTHER, SELFPAY ==
[2025-01-10 17:38] VITALS: BP 159/83; PULSE 79; TEMP 36.6
[2025-01-10] MEDS: ERTAPENEM SODIUM 1 GM in 0.9 % SODIUM CHLORIDE 50 ML IV (17:45)
[2025-01-11 17:42] VITALS: BP 156/81; PULSE 80; TEMP 36.6; O2SAT 94
[2025-01-11] MEDS: ERTAPENEM SODIUM 1 GM in 0.9 % SODIUM CHLORIDE 50 ML IV (17:45)
[2025-01-12] MEDS: ERTAPENEM SODIUM 1 GM in 0.9 % SODIUM CHLORIDE 50 ML IV (18:02)
[2025-01-12 18:06] VITALS: BP 174/81; PULSE 83; TEMP 36.6; O2SAT 94
[2025-01-13 17:44] VITALS: BP 157/70; PULSE 82; TEMP 36.8; O2SAT 93
[2025-01-13] MEDS: ERTAPENEM SODIUM 1 GM in 0.9 % SODIUM CHLORIDE 50 ML IV (17:46)
[2025-01-14 17:14] VITALS: BP 162/90; PULSE 72; TEMP 36.6; O2SAT 95
[2025-01-14] MEDS: ERTAPENEM SODIUM 1 GM in 0.9 % SODIUM CHLORIDE 50 ML IV (17:21)
[2025-01-15 15:55] VITALS: BP 155/86; PULSE 82; TEMP 36.5; O2SAT 93
[2025-01-15] MEDS: ERTAPENEM SODIUM 1 GM in 0.9 % SODIUM CHLORIDE 50 ML IV (16:03)
[2025-01-16 15:20] VITALS: BP 131/77; PULSE 85; TEMP 36.6; O2SAT 93
[2025-01-16] MEDS: ERTAPENEM SODIUM 1 GM in 0.9 % SODIUM CHLORIDE 50 ML IV (15:30)
[2025-01-17 16:09] VITALS: BP 164/83; PULSE 75; TEMP 36.9; O2SAT 92
[2025-01-17] MEDS: ERTAPENEM SODIUM 1 GM in 0.9 % SODIUM CHLORIDE 50 ML IV (16:18)
[2025-01-18 17:04] VITALS: BP 166/79; PULSE 74; TEMP 37; O2SAT 92
[2025-01-18] MEDS: ERTAPENEM SODIUM 1 GM in 0.9 % SODIUM CHLORIDE 50 ML IV (17:15)
[2025-01-19 16:00] VITALS: BP 171/82; PULSE 85; TEMP 36.6; O2SAT 92
[2025-01-19] MEDS: ERTAPENEM SODIUM 1 GM in 0.9 % SODIUM CHLORIDE 50 ML IV (16:06)
== END 2025-02-03 23:59 | disposition home or self-care (01) ==
LOC: INF 15:20
PROVIDERS: PCP Physician Assistant; Visit Provider Internal Medicine
DX: L03.90 Cellulitis, unspecified (principal)
CPT/HCPCS: 96365; J1335

== ENCOUNTER 2025-02-06 07:30 | Outpatient (OUT) | payer OTHER, SELFPAY ==
--- OUTSIDE RECORDS SUMMARY | 2025-02-06 16:30 | XMS_ITS | Encounter Summary ---
Author Organization [facility] Address [address] [place] [address] Care Team Providers Care Procurement Analyst Name Role Phone Manish Rodriguez MD Primary Care Provider [phone] Divya Verdin PA Unavailable [phone] Encounter Details DateTypeDepartmentCare Team (Latest Contact Info)Wccmlatbnpm98/03/2025 4:30 PM ESTOffice Visit [facility] [place] [facility] [address] [place] [address] Divya Verdin PA [address] [place] [address] Type 2 diabetes mellitus with hyperglycemia, with long-term current use of insulin ([facility]) (Primary Dx); Primary hypertension; Morbid obesity ([facility]); BMI 50.0-59.9, adult ([facility]); Spinal stenosis of lumbar region with neurogenic claudication; Type 2 diabetes mellitus with other specified complication, with long-term current use of insulin ([facility]) Social History Tobacco UseTypesPacks/DayYears UsedDateSmoking Tobacco: NeverSmokeless Tobacco: CurrentSnuffAlcohol UseStandard Drinks/WeekCommentsYes2 (1 standard drink = 0.6 oz pure alcohol)Caffeine intake: coffee, sodaPHQ-2AnswerDate RecordedPatient Health Questionnaire-2 Mlljy30604/09/2024Sex and Gender InformationValueDate RecordedSex Assigned at BirthNot on fileLegal ZdpUdyt1305/19/2022 6:52 PM EDT Gender IdentityNot on fileSexual OrientationNot on filedocumented as of this encounter Last Filed Vital Signs Vital SignReadingTime TakenCommentsBlood Proulxos112/8612/05/2024 4:22 PM EST Ysxzc616302/06/2025 4:22 PM ESTTemperature--Respiratory Mcdi078304/09/2024 4:22 PM ESTOxygen Piixsyuvsd14%02/06/2025 4:22 PM ESTInhaled Oxygen Concentration-- Wkuomq115 kg (398 lb 9.6 oz)02/06/2025 4:22 PM VUAKnghox284.4 cm (6' 1 ) 02/06/2025 4:22 PM ESTBody Mass Index52.5902/06/2025 4:22 PM ESTdocumented in this encounter Functional Status * Over the past 2 weeks, how often have you been bothered by any of the following problems?QuestionAnswerDate of AssessmentAuthorLittle interest or pleasure in doing thingsNot at all02/06/2025 4:09 PM Amparo Myers LPN Feeling down, depressed, or hopelessNot at all02/06/2025 4:09 PM Amparo Myers LPNPatient Health Questionnaire-2 Qrctj49204/09/2024 4:09 PM Amparo Myers LPN documented as of this encounter Progress Notes * MEGGAN Lopez - 02/06/2025 4:30 PM EST Images from the original note were not included. Subjective Patient ID: Braulio Bean is a 60 y.o. male who presents for diabetes. Braulio is present today for follow up diabetes. Denies foot ulcers. Admits hypoglycemia, tingling/numbness in extremities. Does check BS's at home and on average running around 180. At last o/v his Soliqua was increased and he is also on Pioglitazone and Metformin. Has had 4 low sugars in the last 90 days. One in the 50's, another that was 67. On those days he hadn't eaten much. Has been eating omelets for breakfast. Eating [employer] bars. Has slowed way down on his alcohol intake. No longer drinking every night. With the pain he had been drinking 4-5 doubles every night. Sleeps better if he doesn't drink as much. Is seeing Dr. Lewis for his back pain, the shots did not help, and his insurance will not cover burning the nerves. Dry skin He has been using OTC cream for diabetics and cannot think of the name of it. Doing the in-home sleep study tonight. Over the past 2 weeks, how often [...] 100 tablet 3 Blood Glucose Monitoring Suppl (DThe Fan Machine Glucometer) w/Device kit 1 each Daily Test glucose once a day. bumetanide (Bumex) 1 MG tablet Take 1 mg by mouth in the morning and 1 mg before bedtime. clobetasol (Temovate) 0.05 % ointment Apply 1 application topically in the morning and 1 application before bedtime. Continuous Glucose Sensor (FreeStyle Jalil 3 Plus Sensor) misc 1 each every 14 (fourteen) days 6 each 3 ergocalciferol (Vitamin D2) 1.25 MG (55278 UT) capsule TAKE 1 CAPSULE BY MOUTH ONCE A WEEK 12 capsule 3 furosemide (Lasix) 40 MG tablet TAKE 1 TABLET BY MOUTH DAILY 30 tablet 5 glucose blood (FREESTYLE TEST [...] CR (Klor-Con M10) 10 MEQ ER tablet TAKE 1 TABLET BY MOUTH DAILY DO NOT CRUSH OR CHEW 30 tablet 3 rosuvastatin (Crestor) 10 MG tablet TAKE 1 TABLET BY MOUTH IN THE EVENING 100 tablet 3 tiZANidine (Zanaflex) 4 MG tablet TAKE 1 TABLET BY MOUTH AT BEDTIME NEEDED 30 tablet 3 [DISCONTINUED] insulin glargine-lixisenatide (Soliqua) 100-33 UNT-MCG/ML pen Inject 32 Units under the skin in the morning. Inject before meals. 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 Smoking Status Never BSA 3.05 m?? Review of Systems Constitutional: Negative for chills, fatigue and fever. Respiratory: Negative for cough, shortness of breath and wheezing. Cardiovascular: Negative for chest pain, palpitations and leg swelling. Gastrointestinal: Negative for abdominal pain, constipation, diarrhea, nausea and vomiting. Skin: Negative for rash. Dry skin Neurological: Positive for numbness. Objective Physical Exam Constitutional: General: He is [...] person, place, and time. Gait: Gait abnormal (Antalgic, straight cane for ambulation). Psychiatric: Mood and Affect: Mood normal. Behavior: Behavior normal. Office Visit on 02/06/2025 Component Date Value Ref Range Status Hemoglobin A1C 02/06/2025 8.3 Final Assessment/Plan Diagnoses and all orders for this visit: Type 2 diabetes mellitus with hyperglycemia, with long-term current use of insulin ([facility]) - POCT Glycated hemoglobin, total Advised pt that his HgbA1c increased from 6.9 to 8.3 since his last appt. A1c was 8.3 when he was in the hospital last month. Primary hypertension BP mildly elevated at this time. States he is due for his next medication dosage. Stay hydrated. Will recheck at follow up and adjust medications at that time if needed. Morbid obesity ([facility]) Pt has lost 15 pounds since his last appointment. Advised pt this is excellent. Encouraged portion control, decrease simple sugars and carbohydrates, gradually increase activity level. Aim for continued gradual steady weight loss. BMI 50.0-59.9, adult ([facility]) See above. Spinal stenosis of lumbar region with neurogenic claudication Continue Tizanidine and Meloxicam as prescribed. Following with Dr. Lewis for management. Type 2 diabetes mellitus with other specified complication, with long-term current use of insulin ([facility]) - insulin glargine-lixisenatide (Soliqua) 100-33 UNT-MCG/ML pen; Inject 34 Units under the skin in the morning. - insulin pen needle (BD Pen Needle Mini Ultrafine) 31G x 5 mm misc; Inject 1 each under the skin Daily Use as instructed Discussed management of hypoglycemic episodes. Some form of quick glucose intake followed by a protein rich snack 15 minutes later to prevent glucose from dropping again. Will have patient increase the Soliqua to 34 units daily. Continue to monitor glucose routinely. Small frequent meals throughout the day. Encouraged him to continue to gradually cut back on the amount of alcohol he is drinking. Has been doing well so far on cutting back. Follow up with MEGGAN Lawler in 3 months (on 05/07/2025 Diabetes, HTN). documented in this encounter Plan of Treatment DateTypeDepartmentCare Team (Latest Contact Info)Beqashmnqfb52/04/2026 4:30 PM ESTOffice Visit [facility] [place] [facility] [address] [facility] [address] [place] [address] Divya Verdin PA [address] [place] [address] documented as of this encounter Procedures Procedure NamePriorityDate/TimeAssociated DiagnosisCommentsPOCT GLYCATED HEMOGLOBIN, DTHMWVdupaor91/03/2025 4:24 PM EST Type 2 diabetes mellitus with hyperglycemia, with long-term current use of insulin ([facility]) documented in this encounter Results * (ABNORMAL) POCT Glycated hemoglobin, total (02/06/2025 4:24 PM EST)Component ValueRef RangeTest MethodAnalysis TimePerformed AtPathologist Signature Hemoglobin A1C8.3Specimen (Source)Anatomical Location / LateralityCollection Method / VolumeCollection TimeReceived SikhCuiai79/03/2025 4:24 PM EST Narrative Authorizing ProviderResult TypeResult StatusDivya Verdin PAPOINT OF CARE TEST ENTER/EDIT ORDERABLESFinal Result documented in this encounter Visit Diagnoses Diagnosis Type 2 diabetes mellitus with hyperglycemia, with long-term current use of insulin (HCC)- Primary Primary hypertension Unspecified essential hypertension Morbid obesity ([facility]) Morbid obesity BMI 50.0-59.9, adult ([facility]) Spinal stenosis of lumbar region with neurogenic claudication Type 2 diabetes mellitus with other specified complication, with long-term current use of insulin (HCC) documented in this encounter Care Teams Team MemberRelationshipSpecialtyStart DateEnd Date Manish Rodriguez MD [address] [place] [address] PCP - GeneralInternal Medicine07/13/22 Divya Verdin PA [address] [place] [address] PCP - Medical [employer] [employer]03/07/1811documented as of this encounter
--- OUTSIDE RECORDS SUMMARY | 2025-02-07 11:24 | XMS_ITS | Clinical Summary ---
Author Organization [facility] Address [address] [place] [address] Phone Care Team Providers Care Insemination Worker Name Role Phone Divya Verdin PA-C Primary Care Provider [phone] Social History Tobacco UseTypesPacks/DayYears UsedDateSmoking Tobacco: Never AssessedSex and Gender InformationValueDate RecordedSex Assigned at BirthNot on fileLegal Sex Male05/19/2022 9:59 AM EDTGender IdentityNot on fileSexual OrientationNot on file Last Filed Vital Signs Vital SignReadingTime TakenCommentsBlood Alljrmtc798/9405/20/2022 11:13 AM EDT Mkyjk003405/20/2022 11:12 AM EDTTemperature--Respiratory Rate--Oxygen Saturation-- Inhaled Oxygen Concentration--Sewslx237 kg (359 lb)05/20/2022 11:12 AM EDTHeight 185.4 cm (6' 1 )05/20/2022 11:12 AM EDTBody Mass Index47.36005/20/2022 11:12 AM EDT Plan of Treatment Health MaintenanceDue DateLast DoneCommentsCT Slihzpawljyr1965Colonoscopy 1965Colorectal Cancer Dgdysctys1965FIT-DNA (Cologuard)1965FIT 1965HIV Usjpxzgys1965Lipid Panel01/16/19657134Zsdphrjhwnlbe1965 Yearly Adult Sqarwbby1965MMR Vaccines (1 of 1 - Standard series)1966 Hepatitis C Wqavmfnhh63/12/1983DTaP/Tdap/Td Vaccines (1 - Tdap)1987PSA Prostate Cancer Nqhovfcyz49/12/2015Pneumococcal Vaccine (1 of 1 - PCV)2015 RSV High Risk: (Elderly (60+) or Population) (1 - Risk 50-74 years 1- dose series)2015Zoster Vaccines (1 of 2)2015Influenza Vaccine (#1) 5COVID-19 Vaccine (1 - 2024- season)2024HIB VaccinesAged OutNo longer eligible based on patient's age to complete this topicHPV VaccinesAged OutNo longer eligible based on patient's age to complete this topicHepatitis A VaccinesAged OutNo longer eligible based on patient's age to complete this topic Hepatitis B VaccinesAged OutNo longer eligible based on patient's age to complete this topicIPV VaccinesAged OutNo longer eligible based on patient's age to complete this topicMeningococcal VaccineAged OutNo longer eligible based on patient's age to complete this topicRotavirus VaccinesAged OutNo longer eligible based on patient's age to complete this topic Care Teams Team MemberRelationshipSpecialtyStart DateEnd Date Divya Verdin PA-C [facility]05/20/22
--- OUTSIDE RECORDS SUMMARY | 2025-02-07 11:25 | XMS_ITS | Encounter Summary ---
Author Organization [facility] Address [address] [place] [address] Care Team Providers Care Master Ocean Yacht Name Role Phone Manish Rodriguez MD Primary Care Provider [phone] Divya Verdin Unavailable [phone] Encounter Details DateTypeDepartmentCare Team (Latest Contact Info)Gstohvawpgo03/21/2025Telephone [facility] [place] [facility] [address] [place] [address] Divya Verdin PA [address] [place] [address] Social History Tobacco UseTypesPacks/DayYears UsedDateSmoking Tobacco: NeverSmokeless Tobacco: CurrentSnuffAlcohol UseStandard Drinks/WeekCommentsYes2 (1 standard drink = 0.6 oz pure alcohol)Caffeine intake: coffee, sodaPHQ-2AnswerDate RecordedPatient Health Questionnaire-2 Pjmkp16903/13/2024Sex and Gender InformationValueDate RecordedSex Assigned at BirthNot on fileLegal TzkSbgu4305/19/2022 6:52 PM EDT Gender IdentityNot on fileSexual OrientationNot on filedocumented as of this encounter Miscellaneous Notes * Telephone Encounter - JAZMÍN BONILLA - 01/25/2025 10:25 AM EST Spoke with patient he didn't see a lab work order from [facility]. He is working from 6 to 6 the next 2 weeks due to coving vacations. He can get the lab done on the day of his apportionment. Labs are ordered. * Telephone Encounter - MEGGAN Lopez - 01/25/2025 9:07 AM EST Please reach out to pt and see if he has been getting follow up blood work done as the hospital hadinstructed on discharge. He was to get a CBC, CMP, CRP weekly for two weeks and I have not seen any results come over. If not, I recommend he have it done at least once, and I am happy to order the labs for him if the hospital did not given him an order. documented in this encounter Plan of Treatment DateTypeDepartmentCare Team (Latest Contact Info)Nlqohaluman73/04/2026 4:30 PM ESTOffice Visit [facility] [place] [address] [facility] [address] [place] [address] Divya Verdin PA [address] [facility] [address] [place] [address] NameTypePriorityAssociated DiagnosesOrder ScheduleComprehensive metabolic panel LabRoutine Cellulitis of left lower leg Expected: 01/25/2025 (Approximate), Expires: 01/25/2026BCLabRoutine Cellulitis of left lower leg Expected: 01/25/2025 (Approximate), Expires: 01/25/2026-reactive proteinLab Routine Cellulitis of left lower leg Expected: 01/25/2025 (Approximate), Expires: 01/25/2026documented as of this encounter Visit Diagnoses Diagnosis Cellulitis of left lower leg documented in this encounter Care Teams Team MemberRelationshipSpecialtyStart DateEnd Date Manish Rodriguez MD [address] [facility] [address] [place] [address] PCP - GeneralInternal Medicine07/13/22 Divya Verdin PA [address] [facility] [address] [place] [address] PCP - Medical [place] [employer]03/07/1811documented as of this encounter
--- OUTSIDE RECORDS SUMMARY | 2025-02-07 11:25 | XMS_ITS | Encounter Summary ---
Author Organization [facility] Address [address] [place] [address] Care Team Providers Care Ditching Machine Engineer Name Role Phone Manish Rodriguez MD Primary Care Provider [phone] Divya Verdin Unavailable [phone] Encounter Details DateTypeDepartmentCare Team (Latest Contact Info)Lrchdfbzddn23/03/2025Travel Social History Tobacco UseTypesPacks/DayYears UsedDateSmoking Tobacco: NeverSmokeless Tobacco: CurrentSnuffAlcohol UseStandard Drinks/WeekCommentsYes2 (1 standard drink = 0.6 oz pure alcohol)Caffeine intake: coffee, sodaPHQ-2AnswerDate RecordedPatient Health Questionnaire-2 Gajyy524Sex and Gender InformationValueDate RecordedSex Assigned at BirthNot on fileLegal UddBkft0005/19/2022 6:52 PM EDT Gender IdentityNot on fileSexual OrientationNot on filedocumented as of this encounter Functional Status * Over the past 2 weeks, how often have you been bothered by any of the following problems?QuestionAnswerDate of AssessmentAuthorLittle interest or pleasure in doing thingsNot at all02/06/2025 4:09 PM ESTVoss, Amparo, ASBESTOS WORKER HELPER Feeling down, depressed, or hopelessNot at all02/06/2025 4:09 PM ESTVoss, Amparo, LPNPatient Health Questionnaire-2 Rxqnu06204/09/2024 4:09 PM ESTVoss, Amparo, ASBESTOS WORKER HELPER documented as of this encounter Plan of Treatment DateTypeDepartmentCare Team (Latest Contact Info)Pxsmgcxshqf23/04/2026 4:30 PM ESTOffice Visit [facility] [place] [facility] [address] [place] [address] Divya Verdin PA [address] [facility] 110 [place] [address] documented as of this encounter Visit Diagnoses Not on filedocumented in this encounter Care Teams Team MemberRelationshipSpecialtyStart DateEnd Date Manish Rodriguez MD [address] [facility] [address] [place] [address] PCP - GeneralInternal Medicine07/13/22 Divya Verdin PA [address] [facility] [address] [place] [address] PCP - Medical [place] [employer]03/07/1811documented as of this encounter
--- OUTSIDE RECORDS SUMMARY | 2025-02-07 11:25 | XMS_ITS | Encounter Summary ---
Author Organization [facility] Address [address] [place] [address] Care Team Providers Care Labeling Specialist Name Role Phone Manish Rodriguez MD Primary Care Provider [phone] Divya Verdin PA Unavailable [phone] Encounter Details DateTypeDepartmentCare Team (Latest Contact Info)Toiyexglczf08/03/2025amboo flowsheet [facility] [place] [facility] [address] [place] [address] Divya Verdin PA [address] [place] [address] Social History Tobacco UseTypesPacks/DayYears UsedDateSmoking Tobacco: NeverSmokeless Tobacco: CurrentSnuffAlcohol UseStandard Drinks/WeekCommentsYes2 (1 standard drink = 0.6 oz pure alcohol)Caffeine intake: coffee, sodaPHQ-2AnswerDate RecordedPatient Health Questionnaire-2 Coown64204/09/2024Sex and Gender InformationValueDate RecordedSex Assigned at BirthNot on fileLegal PbcTjqn7305/19/2022 6:52 PM EDT Gender IdentityNot on fileSexual OrientationNot on filedocumented as of this encounter Plan of Treatment DateTypeDepartmentCare Team (Latest Contact Info)Jmkvwhwzgqj30/04/2026 4:30 PM ESTOffice Visit [facility] [place] [facility] [address] [place] [address] Divya Verdin PA [address] [place] [address] documented as of this encounter Visit Diagnoses Not on filedocumented in this encounter Care Teams Team MemberRelationshipSpecialtyStart DateEnd Date Manish Rodriguez MD [address] [facility] [address] [place] [address] PCP - GeneralInternal Medicine07/13/22 Divya Verdin PA [address] [facility] [address] [place] [address] PCP - Medical [place] [employer]03/07/1811documented as of this encounter
--- OUTSIDE RECORDS SUMMARY | 2025-02-07 11:25 | XMS_ITS | Clinical Summary ---
Author Organization [facility] Address [id number] [address] [place] [address] Care Team Providers Care Dry Color Mixer Name Role Phone Shanna Hebert MD Primary Care Provider [phone] Allergies No known active allergies Medications MedicationSigDispense [...] Tobacco UseTypesPacks/DayYears UsedDateSmoking Tobacco: NeverSmokeless Tobacco: NeverChildcareAnswerDate IczgvgvfCpcblmtytAmqngnu93/12/2019EmploymentAnswerDate DdntzuegKkwusjjdcwXueozkt13/12/2019Purpose - LifeAnswerDate RecordedPurpose and direction in ihzoSqwzabz19/11/2021ex and Gender InformationValueDate Recorded Sex Assigned at BirthNot on fileLegal CvkKqru8910/10/2014 12:10 PM EDTGender IdentityNot on fileSexual OrientationNot on file Last Filed Vital Signs Vital SignReadingTime TakenCommentsBlood Obouewhv131/8803/09/2019 4:50 PM EST Knsgl86004/03/2020 4:50 PM BJJMkqvwgsbotx28.8 ??C (98.3 ??F)03/09/2019 4:50 PM ESTRespiratory Fiiv077303/09/2019 4:50 PM ESTOxygen Waqixmyhpz25%03/09/2019 4:55 PM ESTInhaled Oxygen Concentration--Rpcrnb629.8 kg (370 lb)03/09/2019 4:50 PM KDIQqkeld144.4 cm (6' 1 )03/09/2019 4:50 PM ESTBody Mass Index48.8203/09/2019 4:50 PM EST Plan of Treatment Health MaintenanceDue DateLast DoneCommentsDepression Indhsycdv67/12/1977Tobacco Ftkesefqg48/12/1977Adult BMI Ihoshnlxs56/12/1983DTaP,Tdap and Td Vaccines (1 - Tdap)01/17/1984Zoster (Shingles) Vaccine (1 of 2)2015COVID-19 Vaccine (3 - 2024- season)504/, 06/05/2020Influenza Vynoxgp7311/05/2024 12/06/2016RSV ( or age 60+ yrs) (1 - 1-dose 75+ series)01/17/2040 Medical Devices Not on file Insurance Care Teams Team MemberRelationshipSpecialtyStart DateEnd Shanna [place] [address] [place] [address] PCP - GeneralFamily Medicine03/09/19
--- OUTSIDE RECORDS SUMMARY | 2025-02-07 11:25 | XMS_ITS | Clinical Summary ---
Author Organization [facility] Address [address] [place] [address] Care Team Providers Care Organisation And Methods Analyst Name Role Phone Manish Rodriguez MD Primary Care Provider [phone] iDvya Verdin Unavailable [phone] Allergies No known active allergies Medications MedicationSigDispense QuantityRefillsLast FilledStart DateEnd DateStatus Lancets 30G mis Indications:Type 2 diabetes mellitus with other specified complication (HCC)1 each Daily4Active glucose blood (FREESTYLE TEST STRIPS) test strip Indications:Type 2 diabetes mellitus with other specified complication (HCC)1 each by Other route Daily Use as tpiqadrsrz96/19/2024ctive Blood Glucose Monitoring Suppl (D-Care Glucometer) w/Device kit Indications:Type 2 diabetes mellitus with other specified complication (HCC)1 each Daily Test glucose once a day.4Active clobetasol (Temovate) 0.05 % ointment Apply 1 [...] Sensor (FreeStyle Jalil 3 Plus Sensor) misc Indications:Type 2 diabetes mellitus with other specified complication, with long-term current use of insulin (HCC)1 each every 14 (fourteen) days 6 each 5Active metFORMIN (Glucophage) 1000 MG tablet Indications:Type 2 diabetes mellitus with other specified complication, with long-term current use of insulin (HCC)Take 0.5 tablets (500 mg) by mouth in the morning and 0.5 tablets (500 mg) in the evening. Take with meals.08/01/2024 Active ergocalciferol (Vitamin D2) 1.25 MG (64784 UT) capsule Indications:Vitamin D deficiencyTAKE 1 CAPSULE [...] BY MOUTH AT BEDTIME NEEDED 30 tablet tive furosemide (Lasix) 40 MG tablet Indications:Hypertension due to endocrine disorderTAKE 1 TABLET BY MOUTH DAILY 30 tablet 5Active rosuvastatin (Crestor) 10 MG tablet Indications:Pure hypercholesterolemia, unspecifiedTAKE 1 TABLET BY MOUTH IN THE EVENING 100 tablet 5Active bumetanide (Bumex) 1 MG tablet Take 1 mg by mouth in the morning and 1 mg before bedtime.5Active insulin glargine-lixisenatide (Soliqua) 100-33 UNT-MCG/ML pen Indications:Type 2 Diabetes MellitusInject 34 Units under the skin in the morning. 9 mL 5Active insulin pen needle (BD Pen Needle Mini Ultrafine) 31G x 5 mm [facility] [place] Indications:Type 2 diabetes mellitus with other specified complication, with long-term current use of insulin (HCC)Inject 1 each under the skin Daily Use as instructed 100 each 5Active HYDROcodone-acetaminophen ([place]) 5-325 MG tablet Take 1 tablet by mouth 2 (two) times a day as poymyg27/08/2024 Discontinued(Therapy completed) insulin pen needle (BD Pen Needle Mini Ultrafine) 31G x 5 mm [facility] [place] Indications:Type 2 diabetes mellitus with other specified complication, with long-term current use of insulin (HCC)Inject 1 each under the skin Daily Use as instructed 100 each Discontinued(Reorder) insulin glargine-lixisenatide (Soliqua) 100-33 UNT-MCG/ML pen Indications:Type 2 diabetes mellitus with other specified complication, with long-term current use of insulin (HCC)Inject 22 Units under the skin in the morning. Inject before meals. 6 mL Discontinued(Reorder) linezolid (Zyvox) 600 MG tablet Take 600 mg by mouth in the morning and 600 mg before bedtime.01/10/2025 01/18/2025Discontinued(Therapy completed) ertapenem 1 g in sodium chloride 0.9 % 50 mL IVPB Infuse 1 g into a venous catheter 1 (one) time each day at the same time Expired insulin glargine-lixisenatide (Soliqua) 100-33 UNT-MCG/ML pen Indications:Type 2 Diabetes MellitusInject 30 Units under the skin in the morning. Inject before meals.Discontinued insulin glargine-lixisenatide (Soliqua) 100-33 UNT-MCG/ML pen Indications:Type 2 Diabetes MellitusInject 32 Units under the skin in the morning. Inject before meals.Discontinued insulin glargine-lixisenatide (Soliqua) 100-33 UNT-MCG/ML pen Indications:Type 2 Diabetes MellitusInject 32 Units under the skin in the morning. Inject before meals. 9 mL Discontinued(Reorder) insulin glargine-lixisenatide (Soliqua) 100-33 UNT-MCG/ML pen Indications:Type 2 Diabetes MellitusInject 34 Units under the skin in the morning. Inject before meals.Discontinued Active Problems ProblemNoted DateDiagnosed DateAcute hypoxic respiratory iruwkim4201/10/2025 Chronic pain01/10/20257263Utxynrbbaq37/05/2025MI 50.0-59.9, adult04/04/2024Mild tricuspid llhiuceipgpan34/29/2025Type 2 diabetes mellitus with hyperglycemia 08/24/2023Type 2 diabetes mellitus with other specified qqmycsxlrcis13/19/2024 Male erectile dysfunction, lazfctuktld36/19/2024rthralgia of hip, right 04/20/2023Spinal stenosis of lumbar cqyiqa7802/02/2023Lumbar zxqpojoeysl90/29/2023 Bacterial arthritis of SI joint12/03/2022Squamous cell carcinoma, penis 10/13/20226870Ugzltemgrjmytp68/09/6721Wsqpypzfpytgas60/09/9596Tarfbvuxwjgl49/09/2023 Dsvglhtx76/09/2023isorder of intervertebral disc of cervical spine08/12/2022 Gout08/12/2022Hypertension due to endocrine cegoqckt39/08/2023Levoscoliosis of lumbar spine08/12/2022Lumbar pain08/12/2022Lumbar paraspinal muscle spasm 08/12/2022Morbid xfumdie3608/12/2022RBBB (right bundle branch block)08/12/2022 Right sided bsxsvalx74/08/2023Testicular jdlbgrfazxm14/08/2023Vitamin D hceccfigoa72/08/2023enile xhzelb1307/12/2022 Resolved Problems ProblemNoted DateDiagnosed DateResolved RbdzRzxiamwikobtgfg84/09/202301/ Diabetes szkqbece45ure cnjjcyvdzslgjkhnlada54/08/2023 02/02/2023ure efkadmohodwjvacswqqs65/08/202311/29/2023Type 2 diabetes mellitus without txfwleknvaxla17Hidden penis Encounters DateTypeDepartmentCare OzqqRslqdfjquet49/03/2025 4:30 PM ESTOffice Visit [facility] [address] [facility] [address] [place] [id number] Divya Verdin, PA Type 2 diabetes mellitus with hyperglycemia, with long-term current use of insulin ([facility]) (Primary Dx); Primary hypertension; Morbid obesity ([facility]); BMI 50.0-59.9, adult ([facility]); Spinal stenosis of lumbar region with neurogenic claudication; Type 2 diabetes mellitus with other specified complication, with long-term current use of insulin ([facility])02/06/2025amboo flowsheet [facility] [address] [facility] [address] [place] [address] Divya Verdin PA 02/06/20254120Hlutyy85/21/2025Telephone [facility] [address] [facility] [address] [place] [address] Divya Verdin PA 01/18/2025bstract [facility] [address] [facility] [address] [place] [address] Manish Rodriguez MD 01/17/2025Telephone [facility] [address] [facility] [address] [place] [address] Manish Rodriguez MD 01/11/2025 10:00 AM ESTOffice Visit [facility] [address] [facility] [address] [place] [address] Divya Verdin PA Cellulitis of left lower leg (Primary Dx); History of sepsis; Type 2 diabetes mellitus with hyperglycemia, with long-term current use of insulin ([facility]); Type 2 diabetes mellitus with other specified complication, with long-term current use of insulin ([facility]); Difficulty yjnfmojr48/07/2025amboo flowsheet [facility] [address] [facility] [address] [place] [address] Divya Verdin PA 01/11/20253549Maupop57/06/2025Patient Outreach [facility] [address] [place] [address] Gayle Cheng RN 01/09/2025bstract [facility] [address] [facility] [address] [place] [address] Manish Rodriguez MD 01/08/2025bstract [facility] [address] [facility] [address] [place] [address] Manish Rodriguez MD 01/07/2025linisync Result Encounter [facility] External Department Unsolicited Provider, Generic External Data 01/07/2025bstract [facility] [address] [facility] [address] [place] [address] Manish Rodriguez MD 01/07/2025bstract [facility] [address] [facility] [address] [place] [address] Manish Rodriguez MD 01/07/2025bstract [facility] [address] [facility] [address] [place] [address] Manish Rodriguez MD 01/07/2025bstract [facility] [address] [facility] [address] [place] [address] Manish Rodriguez MD 01/07/2025Orders Only [facility] [address] [facility] [address] [place] [address] Unallocated, [facility] MD Porsche 01/04/2025linisync Result Encounter [facility] External Department Unsolicited Provider, Generic External Data 12/17/2024Telephone [facility] [address] [facility] [address] [place] [address] Manish Rodriguez MD 12/14/2024bstract [facility] [address] [facility] [address] [place] [address] Manish Rodriguez MD 12/07/2024bstract [facility] [address] [facility] [address] [place] [address] Manish Rodriguez MD 12/06/2024[facility] [address] [facility] [address] [place] [address] Divya Verdin, PA 12/03/2024Refill [facility] [address] [facility] [address] [place] [address] Manish Rodriguez MD Pure hypercholesterolemia, rwzlyrgogil68/24/2025Refill [facility] [address] [facility] [address] [place] [address] Divya Verdin PA Hypertension due to endocrine tnivobup37/09/2025bstract [facility] [address] [facility] [address] [place] [address] Manish Rodriguez MD 11/13/[address] [facility] [address] [facility] [address] [place] [address] Manish Rodriguez MD from Last 3 Months Immunizations ImmunizationAdministration DatesNext DueInfluenza, injectable, quadrivalent, preservative free12/21/2022Influenza, seasonal, injectable, preservative free 12/11/2024,01/11/2024Influenza, seasonal, intradermal, preservative free 12/06/2016 Family History Medical HistoryRelationNameCommentsHyperlipidemiaOther 1CancerSisterRelationName StatusCommentsFatherDeceasedMotherDeceasedOther 1Family hxOther 2DeceasedStep momSisterDeceased Social History Tobacco UseTypesPacks/DayYears UsedDateSmoking Tobacco: NeverSmokeless Tobacco: CurrentSnuff Tobacco Cessation:Ready to Q uit: Not Asked; Counseling Given: Not Answered Alcohol UseStandard Drinks/WeekCommentsYes2 (1 standard drink = 0.6 oz pure alcohol)Caffeine intake: coffee, sodaPHQ-2AnswerDate RecordedPatient Health Questionnaire-2 Fppex38304/09/2024Sex and Gender InformationValueDate RecordedSex Assigned at BirthNot on fileLegal UbzMupy75/ 6:52 PM EDTGender Identity Not on fileSexual OrientationNot on file Last Filed Vital Signs Vital SignReadingTime TakenCommentsBlood Lwpuzuib836/8612 4:22 PM EST Rgshv385802/06/2025 4:22 PM MHMByhlimpnpli01 ??C (98.6 ??F)04/26/2024 2:08 PM EST Respiratory Vgcy924104/09/2024 4:22 PM ESTOxygen Mxdfpexfxv80%02/06/2025 4:22 PM ESTInhaled Oxygen Concentration--Yubcbf830 kg (398 lb 9.6 oz)02/06/2025 4:22 PM ULNTziccy223.4 cm (6' 1 )02/06/2025 4:22 PM ESTBody Mass Index52.5902/06/2025 4:22 PM EST Plan of Treatment DateTypeDepartmentCare Team (Latest Contact Info)Xqiltfmttgi46/04/2026 4:30 PM ESTOffice Visit [facility] [address] [facility] [address] [place] [address] Divya Verdin PA [address] [facility] [address] [place] [address] Health MaintenanceDue DateLast DoneCommentsCT Vrqsaeinmnfl1965Colonoscopy 1965FIT1965FOBT01/16/19659537Tqgzmqufnufnf1965Pneumococcal Vaccine: Pediatrics (0 to 5 Years) and At-Risk Patients (6 to 64 Years) (1 of 2 - PCV)01/17/1984Diabetes: Retinopathy Aoxlxsfwx85/06/613198/08/2020, 11/13/2018 FIT-DNA/COVID-19 Vaccine (2024- season)2024 02/24/2021, 07/03/2020, 1Diabetes: Hemoglobin A1C/05/2024, 10/29/2024, 08/01/2024, Additional history existsDiabetes: Urine Protein Xyqckjiul53, 02/04/2023, 01/15/2022, Additional history exists Colorectal Cancer Rzlcizrjl18/03/2026Postponed from 1965 (Patient Refused) Influenza ClvtlovUaicdydxp98/07/2025, 01/11/2024, 12/21/2022, Additional history exists Procedures Procedure NamePriorityDate/TimeAssociated DiagnosisCommentsPOCT GLYCATED HEMOGLOBIN, MYOHBCrnnzsv04/03/2025 4:24 PM EST Type 2 diabetes mellitus with hyperglycemia, with long-term current use of insulin (HCC) XR TIBIA FIBULA 2 VIEWS AJCYBcusugr29/03/2025 9:06 AM ESTBLOOD CULTURE 2Routine 01/07/2025 8:12 AM EST BLOOD CULTURE 1Yejhymu64/03/2025 7:59 AM EST BLOOD CULTURE 1Uedyopn92/31/2025 9:58 AM EDT BLOOD CULTURE 9Tkzhqfx73/31/2025 9:45 AM EDT MICROALBUMIN / CREATININE URINE BPTRMDovhibq16/10/2025 8:46 AM EDT COLOR FUNDUS PHOTOGRAPHY - OU - BOTH YGHAWvtovka89/06/2021 12:00 PM EDT LAB COLOGUARD?? COLON CANCER NVOIZXRmizbsy53/15/2020 from Last 3 Months or Most Recently Relevant to Health Maintenance Results * (ABNORMAL) POCT Glycated hemoglobin, total (02/06/2025 4:24 PM EST)Component ValueRef RangeTest MethodAnalysis TimePerformed AtPathologist Signature Hemoglobin A1C8.3Specimen (Source)Anatomical Location / LateralityCollection Method / VolumeCollection TimeReceived WvadBbgkw12/03/2025 4:24 PM EST Narrative Authorizing ProviderResult TypeResult StatusDivya Verdin PAPOINT OF CARE TEST ENTER/EDIT ORDERABLESFinal Result * XR tibia fibula 2 views left (01/07/2025 9:06 AM EST)Anatomical Region LateralityModalityLower Extremities, Lower LegLeftRadiographic Imaging Narrative Authorizing ProviderResult TypeResult StatusNoms Provider Unallocated MDIMG XR PROCEDURESFinal Result * BLOOD CULTURE 2 (01/07/2025 8:12 AM EST) Only the most recent of2 resultswithin the time period is included. ComponentValueRef RangeTest MethodAnalysis TimePerformed AtPathologist Signature BLOOD CULTURE 2 ??Blood Culture 2 NG5D NO GROWTH AT 5 DAYS.^NO GROWTH AT 5 DAYS. TBHSpecimen (Source)Anatomical Location / LateralityCollection Method / Volume Collection TimeReceived Time01/07/2025 8:12 AM EST01/07/2025 8:16 AM EST Narrative CLINISYNC - 01/12/2025 3:20 PM EST PEDS BOTTLE ONLY Authorizing ProviderResult TypeResult StatusGeneric External Data ProviderLAB BLOOD ORDERABLESFinal ResultPerforming OrganizationAddWellSpan Ephrata Community Hospitalty/State/ZIP Code Phone Number [facility] * BLOOD CULTURE 1 (01/07/2025 7:59 AM EST) Only the most recent of2 resultswithin the time period is included. ComponentValueRef RangeTest MethodAnalysis TimePerformed AtPathologist Signature BLOOD CULTURE 1 ??Blood Culture 1 NG5D NO GROWTH AT 5 DAYS.^NO GROWTH AT 5 DAYS. TBHSpecimen (Source)Anatomical Location / LateralityCollection Method / Volume Collection TimeReceived Time01/07/2025 7:59 AM EST01/07/2025 8:15 AM EST Narrative CLINISYNC - 01/12/2025 3:20 PM EST Authorizing ProviderResult TypeResult StatusGeneric External Data ProviderLAB BLOOD ORDERABLESFinal ResultPerforming OrganizationAddressty/State/ZIP Code Phone Number [facility] * (ABNORMAL) Microalbumin / creatinine urine ratio [...] Performing Organization Information ?Site ID: [id number] ?Name: [facility] ?Address: [address] [place] [address], [address] [place] [phone] ?Director: Urban Galloway MD Authorizing ProviderResult TypeResult StatusDivya Verdin PAL URINE ORDERABLESFinal ResultPerforming OrganizationAddressCity/State/ZIP CodePhone Number [facility] * Color Fundus Photography - OU - Both Eyes (06/10/2020 12:00 PM EDT)Anatomical RegionLateralityModalityHeadFundus PhotographySpecimen (Source)Anatomical Location / LateralityCollection Method / VolumeCollection TimeReceived Time 06/10/2020 12:00 PM EDT Narrative 06/10/2020 12:00 PM EDT PERFORMED AT [facility] LOCATION:[id number] [facility] Procedure Note CONVERSION, GENERIC - 07/21/2022 PERFORMED AT [facility] LOCATION:[id number] [facility] Authorizing ProviderResult TypeResult Laureano Hebert MDOPHTH PHOTOGRAPHY Final Result * Cologuard?? [...] interval of every 3 years by the [place] [employer] and U.S. Multi-Society Task Force. [...] can be accessed at the following location: [email or web address]. Additional description of the Cologuard test process, warnings and precautions can be found at [email or web address]. Rx only. Specimen (Source)Anatomical Location / LateralityCollection Method / Volume Collection TimeReceived Time09/19/2019 Narrative Authorizing ProviderResult TypeResult StatusDivya Verdin PAL MOLECULAR DIAGNOSTICS ORDERABLESFinal ResultPerforming OrganizationAddressCity/State/ZIP CodePhone Number [facility] from Last 3 Months or Most Recently Relevant to Health Maintenance Insurance Care Teams Team MemberRelationshipSpecialtyStart DateEnd Manish Rodriguez MD [address] [facility] [address] [place] [address] PCP - GeneralInternal Medicine07/13/22 Divya Verdin PA [address] [facility] [address] [place] [address] PCP - Medical [place] [employer]03/07/1811
--- OUTSIDE RECORDS SUMMARY | 2025-02-07 11:25 | XMS_ITS | Clinical Summary ---
Author Organization [facility] Address [address] [place], [place] [id number] Care Team Providers Care Wood Heel Flap Inserter Name Role Phone Divya Verdin PA-C Primary Care Provider [phone] Allergies No known active allergies Medications MedicationSigDispense [...] capsule 08/13/2022ctive Active Problems ProblemNoted DateDiagnosed DatePenile bdmttu4707/12/2022Hidden penis07/12/2022 Morbid obesity with BMI of 45.0-49.9, adult07/12/2022 Social History Tobacco UseTypesPacks/DayYears UsedDateSmoking Tobacco: FormerCigarettes Smokeless Tobacco: Current Tobacco Cessation:Ready to Q uit: Not Asked; Counseling Given: Not Answered Area Deprivation IndexAnswerDate RecordedNational Score (1-100), lower number is lower ppjn290307/12/2022State Score (1-10), lower number is lower fijb94907/12/2022 Data from: https://www.neighborhoodatlas.medicine.[facility].edu/. Last address used for [id number] [facility]07/12/2022Sex and Gender InformationValueDate RecordedSex Assigned at BirthNot on fileLegal ZdgOxkv45/06/2013 8:55 AM EST Gender IdentityNot on fileSexual OrientationNot on file Last Filed Vital Signs Vital SignReadingTime TakenCommentsBlood Molmykve125/6506 6:25 PM EDT Oufbq7971 6:25 PM TDJTkhqqxmteqw38.8 ??C (98.2 ??F)08/13/2022 6:25 PM EDTRespiratory Dwkh4676 6:25 PM EDTOxygen Zuubsqqvow17%08/13/2022 6:25 PM EDTInhaled Oxygen Concentration--Blvnbv546.5 kg (356 lb)07/12/2022 8:52 AM KUUJvnbby738.4 cm (6' 1 )07/12/2022 8:52 AM EDTBody Mass Index46.9707/12/2022 8:52 AM EDT Plan of Treatment Health MaintenanceDue DateLast DoneCommentsAnxiety Rtyrzdwri30/12/1983Depression Pukbydfwm20/12/1983HIV Hdesqstqu93/12/1983Hepatitis C Hdjbgnhnq93/12/1983 DTaP,Tdap,Td Vaccine (1 - Tdap)01/17/1984Lipid Dbnrdhkny56/12/2000CT Oendjpeqmcex02/12/2010Cologuard (FIT-DNA)01/16/20103403Hrvulzshpur71/12/2010 Colorectal Cancer Dkwwfoqcb46/12/2010Fecal Occult Blood2010Sigmoidoscopy 2010Pneumococcal Vaccine: 50+ (1 of 1 - PCV)2015Shingrix Vaccine (1 of 2)2015Diabetes Xqvvtdacx40/04/2020, 02/13/2020, 10/17/2019, Additional history existsCovid-19 Vaccine ( season)2024 02/24/2021, 07/03/2020, 06/05/2020Influenza Vaccine (#1)/04/2016RSV Vaccine (1 - Risk 60-74 years 1-dose series)2025Prostate Cancer Screening Ixkapzdhwn36/06/086926/08/2020 Insurance Care Teams Team MemberRelationshipSpecialtyStart DateEnd Date Divya Verdin, [place] [address] [address] [facility] - [facility]22
--- OUTSIDE RECORDS SUMMARY | 2025-02-07 11:39 | XMS_ITS | CCD ---
Author Organization [facility] Care Team Providers Care Donor Services Specialist Name Role Phone MANISH RODRIGUEZ Primary Care Physician MD Timmy Santana Attending Provider MIKEY Verdin Primary Care Provider [phone] Carolyn Verdin Unavailable Unavailable Unavailable Unavailable Ritesh Ordonez Attending Unavailable Lambert, Mrs. Stokes Dona Primary Care Unav ailable Dr. Timmy Santana Referring Unavailab Daniel Huerta MD Primary Care Provider DO Silvio Yu II Attending Provider MD Timmy Santana Referring Provider CAROLYN VERDIN Primary Care Physician [phone] Carolyn Verdin Primary Care Provider [phone] DANIEL LEONARD Primary Care Unavailable VÍCTOR ROSALES [...] Unavailable MIKEY Verdin Primary Care Provider Amadeo, VAULT KEEPER-BC Roya E Emergency Provider Osiel Lewis Unavailable Carolyn Thornton Unavailable [phone] Manish Rodriguez MD Primary Care Provider [phone] Manish Rodriguez MD Unavailable [phone] Mike Phelan MD Attending Provider NON STAFF Primary Care Provider Unavailabl e Calvin Son DO Admit Provider Calvin Son DO Attending Provider Brett Chang MD Other Provider Nelda Casanova MD Other Provider Vasquez SYSTEMS ADMINISTRATOR-C, Makayla Cedeno Other Provider Franco Graf DO Other Provider Marek Mullen MD Other Provider Waldemar Rizzo DO Other Provider Jorge Luis Mcgregor MD Attending Provider Calvin Navarro MD Other Provider Hemmer SYSTEMS ADMINISTRATOR-C, Carolyn Primary Care Provider [phone] Vasquez SYSTEMS ADMINISTRATOR-C, Makayla Cedeno Other Provider Unavail able Carolyn Bautista APRN Attending Provider Hemjef SYSTEMS ADMINISTRATOR-C, Carolyn Primary Care Provider [phone] Osiel Lewis MD Attending Provider Carolyn Thornton Unavailable Hemjef SYSTEMS ADMINISTRATOR-C, Carolyn Primary Care Provider Osiel Lewis MD Attending Provider Dot Chua MD Attending Provider Dot Chua Admitting Unavailable Dot Chua Attending Unavailable Carolyn Bautista Admitting Unavailable Carolyn Bautista Attending Unavailable Carolyn Verdin Primary Care Unavailable Osiel Lewis Admitting Unavailable Osiel Lewis Attending Unavailable Carolyn Verdin Primary Care Unavailable Carolyn Verdin Admitting Unavailable Carolyn Verdin Primary Care Unavailable Carolyn Verdin Attending Unavailable Calvin Son Admitting Unavailable Jorge Luis Mcgregor Attending Unavailable Brett Chang Consulting Unavailable Carolyn Verdin Primary Care Unavailable Nelda Casanova Consulting Unavailable Makayla Ovalle Consulting Unavailable Franco Graf Consulting Unavailable Marek Mullen II Consulting UnavailWaldemar Hanna Consulting Unavailable Calvin Navarro Consulting Unavailable Mike Phelan Admitting Unavailable Mike Phelan Attending Unavailable HEMMER, CAROLYN Andrews Attending Unavailable HEMMER, CAROLYN Andrews Attending Unavailable HEMMER, CAROLYN Andrews Attending Unavailable HEMMER, CAROLYN Andrews Attending Unavailable HEMMER, CAROLYN Andrews Attending Unavailable HEMMER, CAROLYN Andrews Attending Unavailable HEMMER, CAROLYN Andrews Attending Unavailable HEMMER, CAROLYN Andrews Attending Unavailable Allergies Allergy ClassificationReported Allergen(s)Allergy TypeDate of OnsetReaction(s) Facility (1 source)No Known Medication Allergies; Translations: [No Known Medication Allergies]Propensity to adverse reactions (disorder)[facility] Medications Current Medications MedicationDrug Class(es)DatesSig (Normalized)Sig (Original)acetaminophen 325 mg / HYDROcodone bitartrate 5 mg oral tablet (20 sources)Opioid AgonistStart: 03-14-2024 End: 22-60-1674dwwm 1 tablet by mouth twice daily as neededHYDROcodone- acetaminophen ([place]) 5-325 MG tablet Take 1 tablet by mouth 2 (two) times a day as needed 03/14/2024 ActiveStart: 12-01-2022 End: 53-30-3427rdlo 1 tablet by mouth every six hours as needed for pain Hydrocodone-Acetaminophen 5-325 mg tablet Discontinued 1 TAB PO Q6H as needed for pain 10 3 0 December 01, 2022 March 09, 2024 2:42am Acute pain of right hip Pain in right hipStart: 05-31-2022 End: 52-65-4634dypn 1 tablet by mouth every four to six hours as needed for pain Hydrocodone-Acetaminophen 5-325 mg tablet Discontinued 1 TAB PO EVERY 4-6 HOURS as needed for pain 10 3 0 May 31, 2022 June 22, 2022 7:06am Phimosis of penis PhimosisStart: 53-10-1694rwuy 1 tablet by mouth onceHYDROcodone- acetaminophen (NORCO) 5-325 mg per tablet Take 1 tablet by mouth. 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 TAKE 1 TABLET BY MOUTH DAILY 100 tablet 3 11/01/2024 ActiveBD Luer-Shruthi Syringe 22G X 1 (2 sources)BD Luer-Shruthi Syringe 22G X 1 use every 2 (TWO) weeks with testosterone injection intramuscular once every 2 weeks for 90 days ActiveBD Luer-Shruthi Syringe 22G X 1 3 ML (2 sources)BD Luer-Shruthi Syringe 22G X 1 3 ML USE DIRECTED WITH testosterone EVERY 2 WEEKS ActiveBlood Glucose Monitoring Suppl (D-Care Glucometer) w/Device kit (20 sources)Start: 19-92-9743Sygvo Glucose Monitoring Suppl (D-Care Glucometer) w/Device kit Indications: Type 2 diabetes mellitus with other specified complication (HCC) 1 each Daily Test glucose once a day. 08/24/2023 ActiveStart: 20-00-8890Psdkd Glucose Monitoring Suppl (D-Care Glucometer) w/Device kit Indications: Type 2 diabetes mellitus with other specified complication 1 each Daily Test glucose once a day. 08/24/2023 ActiveStart: 31-87-8080Tyswv Glucose Monitoring Suppl (D-Care Glucometer) w/Device kit Indications: Type 2 diabetes mellitus with other specified complication (CMS/HCC) 1 each Daily Test glucose once a day. 08/24/2023 ActiveStart: 58-07-6280Xvoav Glucose Monitoring Suppl (D- Care Glucometer) w/Device kit Indications: Type 2 diabetes mellitus without complication, without long-term current use of insulin (CMS/HCC) 1 each in the morning. Test glucose once a day.. 1 kit 0 02/02/2023 Activecefdinir 300 mg oral capsule (1 source)Cephalosporin AntibacterialCefdinir 300 MG as directed Orally Active clobetasol propionate 0.0005 mg/mg topical ointment (20 sources)CorticosteroidStart: 34-24-5163lnmfhzciff (Temovate) 0.05 % ointment Apply 1 application topically in the morning and 1 application before bedtime. 04/02/2024 ActiveStart: 25-97-4008Zxjdlqaeda Glucose Sensor (FreeStyle Jalil 3 Plus Sensor) mis (12 sources)Start: 87-71-2416Scdeukcrzz Glucose Sensor (FreeStyle Jalil 3 Plus Sensor) [facility] Indications: Type 2 diabetes mellitus with other specified complication, with long-term current use of insulin (HCC) 1 each every 14 (fou rteen) days 6 each 3 08/01/2024 ActiveStart: 53-73-5661Dlupczrstg Glucose Sensor (FreeStyle Jalil 3 Plus Sensor) [facility] Indications: Type 2 diabetes mellitus with other specified complication, with long-term current use of insulin 1 each every 14 (fourteen) days 6 each 08/01/2024 Activedoxycycline hyclate 100 mg oral capsule (7 sources)Tetracycline-class DrugStart: 04-26-2024 End: 85-27-3290mcfriwjlzab (Vibramycin) 100 MG capsule Indications: Cellulitis of [...] mg oral capsule (20 sources)Provitamin D2 CompoundStart: 44-60-3724dyii 1 capsule by mouth every weekergocalciferol (Vitamin D2) 1.25 MG (27935 UT) capsule Indications: Vitamin D deficiency TAKE 1 CAPSULE BY MOUTH ONCE A WEEK 12 capsule 3 10/01/2024 Active Start: 89-94-3898qvaz 1 capsule by mouth every weekergocalciferol (Vitamin D2) 1.25 MG (26907 UT) capsule Indications: Vitamin D deficiency TAKE 1 CAPSULE BY MOUTH once a week 12 capsule 3 09/06/2023 ActiveStart: 95-25-5579xnjb 1 capsule by mouth every weekergocalciferol (Vitamin D2) 1.25 MG (92912 UT) capsule Indications: Vitamin D deficiency Take 1 capsule (1.25 mg) by mouth 1 (one) time per week. 12 capsule 3 08/12/2022 ActiveStart: 79-58-0086Mxrmf: 05-10-2022 ergocalciferol 50,000 intl units Cap Refills(s) 0 Start Date: 05/10/22 Status: OrderedComment on above:Ergocalciferol (Vitamin D2) Active 1250 UNIT PO every week May 17, 2022 12:00amertapenem 1 g in sodium chloride 0.9 % 50 mL IVPB (3 sources)Start: 01-10-2025 End: 37-31-9181qetbuohdk 1 g in sodium chloride 0.9 % 50 mL IVPB Infuse 1 g into a venous catheter 1 (one) time each day at the same time 01/10/2025 01/19/2025 Activefurosemide 40 mg oral tablet (20 sources)Loop DiureticStart: 85-13-1520escn 1 tablet by mouth once daily furosemide (Lasix) 40 MG tablet 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 TAKE 1 TABLET BY MOUTH DAILY 30 tablet 5 11/28/2024 ActiveStart: 05-29-8774yhqt 1 tablet by mouth once dailyfurosemide (Lasix) 40 MG tablet 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 Take 1 tablet (40 mg) by mouth Daily 30 tablet 5 05/09/2024 Active3 ml insulin glargine 100 unt/ml / lixisenatide 0.033 mg/ml pen injector (20 sources)Insulin AnalogStart: 01-11-2025 End: 64-57-0048gkmxort glargine-lixisenatide (Soliqua) 100-33 UNT-MCG/ML pen Indications: Type 2 Diabetes MellitusInject 30 Units under the skin in the morning. Inject before meals. 01/11/2025 01/11/2025 DiscontinuedStart: 01-11-2025 End: 80-76-1959dslakdk glargine-lixisenatide (Soliqua) 100-33 UNT-MCG/ML pen Indications: Type 2 Diabetes MellitusInject 32 Units under the skin in the morning. Inject before meals. 01/11/2025 01/11/2025 DiscontinuedStart: 12-12-2024 End: 83-34-8040vbcyuum glargine-lixisenatide (Soliqua) 100-33 UNT-MCG/ML pen Indications: Type 2 diabetes mellituswith other specified complication, with long-term current use of insulin (HCC) Inject 22 Units under the skin in the morning. Inject before meals. 6 mL 5 12/12/2024 01/11/2025 Discontinued (Reorder)Start: 56-59-4868Hciwh: 67-98-6242juwmwci glargine-lixisenatide (Soliqua) 100-33 UNT-MCG/ML pen Indications: Type 2 diabetes mellituswith other specified complication, with long-term current use of insulin (HCC) Inject 20 Units under the skin in the morning. Inject before meals. 6 mL 5 08/29/2024 ActiveStart: 08-01-2024 End: 52-43-8169yzlcny 15 [IU] by subcutaneous injection before mealtimeSoliqua 100-33 UNT-MCG/ML pen Indications: Type 2 diabetes mellitus with other specified complication, with long-term current use of insulin (HCC) INJECT 15 UNITS SUBCUTANEOUSLY (UNDER THE SKIN) IN THE MORNING. INJECT BEFORE MEALS 15 mL 2 08/02/2024 08/29/2024 Discontinued (Reorder)linezolid 600 mg oral tablet (3 sources)Oxazolidinone AntibacterialStart: 01-10-2025 End: 56-30-9273lfnb 1 tablet by mouth in the morninglinezolid (Zyvox) 600 MG tablet Take 600 mg by mouth in the morning and 600 mg before bedtime. 01/10/2025 01/19/2025 Activelisinopril 40 mg oral tablet (20 sources)Angiotensin Converting Enzyme InhibitorStart: 05-09-2024 End: 03-55-9185spfp 1 tablet by mouth once dailylisinopril 40 MG tablet 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 Take 1 tablet (40 mg) by mouth Daily 90 tablet 3 08/01/2024 ActiveStart: 04-04-2024 End: 52-64-1316srpi 1 tablet by mouth at bedtimelisinopril 20 MG tablet 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) Take 1 tablet (20 mg) by mouth at bedtime 04/04/2024 05/09/2024 DiscontinuedStart: 05-17-2022 End: 60-06-5101zhrh 1 tablet by mouth once daily in the eveningLisinopril 20 mg tablet Discontinued 20 MG PO Every evening May 16, 2022 11:00pm March 14, 2024 2:05pmComment on above:Lisinopril Active 20 MG PO Every evening May 17, 2022 12:00ammeloxicam 15 mg oral tablet (20 sources)Nonsteroidal Anti-inflammatory DrugStart: 65-91-5153rsoj 1 tablet by mouth once daily at mealtimemeloxicam (Mobic) 15 MG tablet Indications: Lumbar pain TAKE 1 TABLET BY MOUTH ONCE DAILY WITH UVYR502 tablet 3 06/06/2024 Active metFORMIN hydrochloride 1000 mg oral tablet (20 sources)BiguanideStart: 66-41-5620srec 0.5 tablet by mouth in the morning metFORMIN (Glucophage) 1000 MG tablet Indications: Type 2 diabetes mellitus with other specified complication, with long-term current use of insulin (HCC) Take 0.5 tablets (500 mg) by mouth in the morning and 0.5 tablets (500 mg) in the evening. Take with meals. 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 Take 1 tablet (100 mg) by mouth Daily 100 tablet 3 04/26/2024 ActiveStart: 39-72-2592ndnj 1 tablet by mouth once dailymetoprolol succinate XL (Toprol-XL) 100 MG 24 hr tablet 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) Take 1 tablet (100 mg) by mouth Daily 04/04/2024 ActiveStart: 70-64-9893umfoeqwyrl succinate ER (TOPROL XL) 50 mg 24 hr tabletStart: 05-17-2022 End: 69-00-1925bzdv 1 tablet by mouth once daily in the morningMetoprolol Succinate 50 mg tablet extended release 24 hr Discontinued 50 MG PO Every morning May 16, 2022 11:00pm November 12, 2024 2:16pmStart: 05-10-2022 metoprolol succinate ER 50 mg tablet,extended release 24 hr metoprolol succinate ER 50 mg tablet,extended release 24 hr Start Date: 05/10/22 Status: Ordered OneTouch Verio - (2 sources)OneTouch Verio - use to test blood sugar twice daily Active phentermine hydrochloride 37.5 mg oral tablet (13 sources)Sympathomimetic Amine AnorecticStart: 09-12-2023 End: 69-98-0108jjju 1 tablet by mouth before mealtimephentermine (Adipex-P) 37.5 MG tablet Indications: Morbid obesity (CMS/HCC) Take 1 tablet (37.5 mg)by mouth in the morning. Take before meals. 30 tablet 11/21/2023 ActiveStart: 04-06-2023 End: 27-91-3773fdzy 1 tablet by mouth before mealtimephentermine (Adipex-P) 37.5 MG tablet Indications: Morbid obesity (CMS/HCC) Take 1 tablet (37.5 mg)by mouth in the morning. Take before meals. 30 tablet 0 04/06/2023 05/06/2023 Active pioglitazone 45 mg oral tablet (20 sources)Peroxisome Proliferator Receptor alpha Agonist, Peroxisome Proliferator Receptor gamma Agonist, ThiazolidinedioneStart: 03-19-7101xeix 1 tablet by mouth once dailypioglitazone (Actos) 45 MG tablet Indications: Type 2 diabetes mellitus with other specified complication (HCC) TAKE 1 TABLET BY MOUTH ONCE DAILY 100 tablet 3 07/05/2024 Activemicroencapsulated potassium chloride 10 meq extended release oral tablet (19 sources)Start: 36-47-2983nerc 1 tablet by mouth once dailypotassium chloride CR (Klor-Con M10) 10 MEQ ER tablet Indications: Pitting edema TAKE 1 TABLET BY MOUTH DAILY DO NOT CRUSH OR CHEW 30 tablet 3 11/01/2024 ActiveStart: 04-26-2024 End: 14-11-5659hepg 1 tablet by mouth once dailypotassium chloride CR (Klor-Con M10) 10 MEQ ER tablet Indications: Pitting edema Take 1 tablet (10 mEq) by mouth Daily Do not crush or chew. 30 tablet 5 05/09/2024 Activerosuvastatin calcium 10 mg oral tablet (5 sources)HMG-CoA Reductase InhibitorStart: 88-12-6115mqft 1 tablet by mouth in the eveningrosuvastatin (Crestor) 10 MG tablet Indications: Pure hypercholesterolemia, unspecified TAKE 1 TABLET BY MOUTH IN THE EVENING 100 tablet 3 12/03/2024 Activesimvastatin 40 mg oral tablet (20 sources)HMG-CoA Reductase InhibitorStart: 75-27-8589zqpz 1 tablet by mouth once daily in the eveningComment on above:Simvastatin Active 40 MG PO Every evening May 17, 2022 12:00amtiZANidine 4 mg oral tablet (20 sources)Central alpha-2 Adrenergic AgonistStart: 64-22-2532utkj 1 tablet by mouth at bedtime as neededtiZANidine (Zanaflex) 4 MG tablet Indications: Muscle spasm of back TAKE 1 TABLET BY MOUTH AT BEDTIME NEEDED 30 tablet 3 11/01/2024 ActiveStart: 55-86-0124buoo 1 tablet by mouth at bedtime as neededtiZANidine (Zanaflex) 4 MG tablet Indications: Muscle spasm of back TAKE 1 TABLET BY MOUTH AT BEDTIME NEEDED 30 tablet 3 05/28/2024 ActiveStart: 29-11-1019dhot 1 tablet by mouth at bedtime as neededtiZANidine (Zanaflex) 4 MG tablet Indications: Muscle spasm of back TAKE 1 TABLET BY MOUTH AT BEDTIME NEEDED 30 tablet 3 01/26/2024 ActiveStart: 18-03-9638drot 1 capsule by mouth once daily in the evening as needed for painComment on above:Tizanidine (Zanaflex) 4 mg capsule Active 4 MG PO Every evening May 17, 2022 12:00am Completed/Discontinued Medications MedicationDrug Class(es)DatesSig (Normalized)Sig (Original)acetaminophen 500 mg oral tablet (1 source)Start: 01-08-3376jsov 2 tablets by mouth every six hours as needed acetaminophen (TYLENOL EXTRA STRENGTH) 500 mg tablet Take 2 tablets by mouth every 6 hours as needed for pain. 60 tablet 0 08/13/2022 ActiveComment on above: Take 2 tablets by mouth every 6 hours as needed for pain.amoxicillin 875 mg / clavulanate 125 mg oral tablet (13 sources)Penicillin-class AntibacterialStart: 03-23-2024 End: 42-11-3024tkog 1 tablet by mouth onceamoxicillin-clavulanate (Augmentin) 875-125 MG tablet Indications: Cellulitis of left lower leg Take 1 tablet (875 mg) by mouth every 12 (twelve) hours for 7 days 14 tablet 03/23/2024 04/04/2024 Discontinued (Therapy completed)Start: 03-14-2024 End: 17-58-7203fbke 1 tablet by mouth every twelve hoursamoxicillin-clavulanate (Augmentin) 875-125 MG tablet Take 1 tablet by mouth every 12 (twelve) hours 03/14/2024 03/23/2024 Discontinued (Reorder)Start: 03-14-2024 End: 26-39-0996wxco 1 tablet by mouth every twelve hoursAmoxicillin-Pot Clavulanate 875-125 mg tablet Discontinued 1 TAB PO Every 12 hours 20 10 0 March 14, 2024 12:00am November 12, 2024 2:13pmcephalexin 500 mg oral capsule (6 sources)Cephalosporin AntibacterialStart: 04-10-2024 End: 11-92-6384wpmp 1 capsule by mouth in the morning, [...] 04/10/2024 04/26/2024 Discontinued (Therapy completed)Start: 08-13-2022 End: 64-46-1013twwy 1 capsule by mouth twice dailycephALEXin (KEFLEX) 500 mg capsule Take 1 capsule by mouth twice daily for 7 days. 14 capsule 0 08/13/2022 08/20/2022 ActiveStart: 93-73-9668ryov 1 capsule by mouth twice dailycephALEXin (KEFLEX) [...] mouth every week Vitamin D3 1.25 MG (87573 UT) Oral Capsule one tablet weekly Quantity: 30 Refills: 5 Ordered: 20-May-2022 DO ActiveComment on above:Take by mouth. dicyclomine hydrochloride 20 mg oral tablet (3 sources)AnticholinergicStart: 84-44-5806keeolurdrib (BENTYL) 20 mg tablet Take 20 mg by mouth. 0 03/09/2019 ActiveComment on above:Take 20 mg by mouth. docosahexaenoic acid 120 mg / eicosapentaenoic acid 180 mg oral capsule (20 sources) End: 43-19-7940mzbo 1 capsule by mouth once dailyomega-3 (Fish Oil) 1000 MG capsule Take 1 capsule by mouth 1 (one) time each day at the same time. 0 04/04/2024 Discontinued (Other)Docosahexanoic Acid-Eicosapent 120-180 mg capsule Take by mouth q 24 HR. 0 ActiveComment on above:Take by mouth q 24 HR.docusate sodium 100 mg oral capsule (1 source)Start: 48-18-1329igdv 1 capsule by mouth twice dailydocusate sodium (COLACE) 100 mg capsule Take 1 capsule by mouth twice daily. 14 capsule 0 08/13/2022 ActiveComment on above:Take 1 capsule by mouth twice daily. glimepiride 4 mg oral tablet (20 sources)SulfonylureaStart: 05-10-2022 End: 97-43-7812efir 1 tablet by mouth twice dailyGlimepiride 4 mg tablet Discontinued 4 MG PO Twice daily May 16, 2022 11:00pm November 12, 2024 2:13pmtake 1 tablet by mouth once dailyGlimepiride 4 MG Oral Tablet TAKE 1 TABLET DAILY DIRECTED. Quantity: 0 Refills: 0 Ordered: 20-May-2022 DO Active hydroCHLOROthiazide 25 mg / lisinopril 20 mg oral tablet (20 sources)Thiazide Diuretic, Angiotensin Converting Enzyme InhibitorStart: 38-35-4246kkheqfbelr-hydroCHLOROthiazide (ZESTORETIC) 20-25 mg per tabletStart: 05-17-2022 End: 19-05-5762lzlm 1 tablet by mouth once daily in the morningLisinopril- Hydrochlorothiazide 20-25 mg tablet Discontinued 1 TAB PO Every morning May 161:00pm November 12, 2024 2:13pmStart: 05-10-2022 hydrochlorothiazide-lisinopril 25 mg-20 mg Tab Refill(s) 0 Start Date: 05/10/22 Status: OrderedComment on above:Take 1 tablet by mouth once daily. In addition to lisinopril 20 mg QPM.Ketorolac (4 sources)Nonsteroidal Anti-inflammatory Drug, Cyclooxygenase InhibitorStart: 45-39-8728Aevyivv per 15 mg Apr, 30 mgStart: 36-12-3095Thfbids per 15 mg Oct, 30 mglatanoprost 0.05 [...] q 24 HR.levoFLOXacin 500 mg oral tablet (12 sources)Quinolone AntimicrobialStart: 04-02-2024 End: 98-99-1316erfk 1 tablet by mouth once dailyLevofloxacin 500 mg tablet Discontinued 500 MG PO Daily 14 14 0 April 02, 2024 12:00am November 12, 2024 2:13pmmethylPREDNISolone (2 sources)CorticosteroidStart: 94-35-5028Qhnj-Medrol 40 mg Oct, 20 mg metOLazone 5 mg oral tablet (5 sources)Thiazide-like DiureticStart: 04-26-2024 End: 02-77-2906kjjd 1 tablet by mouth once dailymetOLazone (Zaroxolyn) [...] days Not-Taking predniSONE 20 mg oral tablet (10 sources)Start: 12-01-2022 End: 99-73-5907dueq 1 tablet by mouth twice dailyPrednisone 20 mg tablet Discontinued 20 MG PO Twice daily 10 5 0 November 30, 2022 11:00pm March 09, 2024 2:43amSemaglutide,0.25 or 0.5MG/DOS, (Ozempic, 0.25 or 0.5 MG/DOSE,) 2 MG/3ML solution pen-injector (2 sources)Start: 08-01-2024 End: 96-66-7936hgcbmu 0.25 mg by subcutaneous injection every week, [...] 08/01/2024 DiscontinuedSyringe (Disposable) 1 ML (2 sources)Start: 52-05-0282Jhgakjp (Disposable) 1 ML 22 guage 1 intramuscularly Q 2 weeks for 90 days Nov, Not-TakingSyringe (Disposable) 3 ML (2 sources)Start: 06-10-5770Rfdjsir (Disposable) 3 ML as directed IM q 2 weeks for 90 days Jun, Not-TakingSyringe 23G X 1 3 ML misc (19 sources)Start: 02-09-2023 End: 90-33-6571Duujwiy 23G X 1 3 ML misc Indications: Testicular dysfunction Inject 1 each into the shoulder, thigh, or buttocks every 14 (fourteen) days 6 each 1 02/09/2023 04/26/2024 Discontinued (Other)Start: 45-15-7922Uaaxclm 23G X 1 3 ML misc Indications: Testicular dysfunction Inject 1 each into the shoulder, thigh, or buttocks every 14 (fourteen) days 6 each 1 02/09/2023 Active testosterone cypionate 100 mg/ml injectable solution (20 sources)AndrogenStart: 02-09-2023 End: 63-95-2538bkyqhqvhwcqk cypionate (Depo-Testosterone) 100 MG/ML injection Indications: Testicular [...] 2 weeks for90 days Not-TakingTriamcinolone (2 sources)CorticosteroidStart: 84-77-5613RPEOXWM - 10 mg Apr, 20 mg Problems Active Problems Problem ClassificationProblemDateDocumented DateEpisodic/ChronicCancer of other male genital organs (20 sources)Malignant tumor of penis; Translations: [Malignant neoplasm of penis, unspecified]Onset: 89-10-9799KettqkdVeomomm ulcer of skin (15 sources)Ulcer of skin of lower extremity; Translations: [Non-pressure chronic ulcer of unspecified part of left lower leg with unspecified severity] Onset: 626272-59-8299HbwnpddQmlyljzqjy disorders (20 sources)EKG: right bundle branch block; Translations: [Right bundle branch block]Onset: 041158-14-4262QboijzvCbprjndq mellitus with complications (20 sources)Disorder due to type 2 diabetes mellitus; Translations: [Type 2 diabetes mellitus with unspecified complications]Onset: 500521-24-0711 ChronicDisorders of lipid metabolism (20 sources)Hyperlipidemia; Translations: [Other and unspecified hyperlipidemia] Onset: 08-12-2022 Resolved: 303178-09-6874BwerifrKpanlnnle hypertension (20 sources)Hypertensive disorder; Translations: [Unspecified essential hypertension]Onset: 930962-35-3504KkqgnooVeip and other crystal arthropathies (20 sources)Gout; Translations: [Gout, unspecified]Onset: 362120-68-9764 ChronicHeart valve disorders (20 sources)Rheumatic tricuspid insufficiency; Translations: [Diseases of tricuspid valve]Onset: 751462-77-1181GpbhovfJifmiclpkklk with complications and secondary hypertension (20 sources)Hypertension secondary to endocrine disorder; Translations: [Hypertension secondary to endocrine disorders]Onset: ChronicNutritional deficiencies (20 sources)Vitamin D deficiency; Translations: [Vitamin D deficiency, unspecified]Onset: 056898-73-1069HfguzvbOycot acquired deformities (20 sources)Scoliosis of lumbar spine; Translations: [Other forms of scoliosis, lumbar region]Onset: 652709-65-2904TnhjgqoIrnnc aftercare (2 sources)Long-term current use of insulin; Translations: [nursing home (current) use of insulin]EpisodicOther connective tissue disease (1 source)Pain in calf; Translations: [Pain in left lower leg]37-91-2480Tssjogue Other connective tissue disease (1 source)Pain in left lower leg; Translations: [Pain in limb]63-69-1684Oxexbvip Other connective tissue disease (5 sources)Pain of left calf; Translations: [Pain in left lower leg]04-02-2024 EpisodicOther connective tissue disease (8 sources)Myofascial pain; Translations: [Myalgia, other site]12-06-2024 EpisodicOther diseases of veins and lymphatics (20 sources)Lymphedema; Translations: [Lymphedema, not elsewhere classified] Onset: 674343-61-4949ShqdcpeXxflo diseases of veins and lymphatics (4 sources)Lymphedema, not elsewhere classified; Translations: [Other lymphedema]Onset: 774672-01-0918TegrqemZpqaq diseases of veins and lymphatics (6 sources)Edema of left lower limb; Translations: [Chronic venous hypertension (idiopathic) without complications of left lower extremity]88-27-6495Kjiigwz Other diseases of veins and lymphatics (6 sources)Disorder of vein of lower extremity; Translations: [Venous insufficiency (chronic) (peripheral)]75-05-3463CpuetdkiYvlll diseases of veins and lymphatics (1 source)Venous insufficiency (chronic) (peripheral); Translations: [Varicose veins of lower extremities with inflammation]97-24-5005BtlwfkqjCdiwd endocrine disorders (1 source)Testicular hypofunction; Translations: [Testicular hypofunction]Onset: 78-58-7333KaaailjTreba endocrine disorders (1 source)Male clnbehnphkrh77-58-2486AuytmoqJdpnm endocrine disorders (2 sources)Hypogonadotropic hypogonadism; 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 Other endocrine disorders (20 sources)Disorder of endocrine testis; Translations: [Testicular dysfunction, unspecified]Onset: 279993-79-1385XrhnfuvKeeho infections; including parasitic (4 sources)History of sepsis; Translations: [Personal history of other infectious and parasitic diseases]39-45-3092EvscmwhyHdcru male genital disorders (20 sources)Male erectile dysfunction, unspecified; Translations: [Impotence of organic origin]Onset: 039318-29-7161WsulfsmTuflc nervous system disorders (20 sources)Chronic pain; Translations: [Other chronic pain]Onset: 01-10-2025 02-21-2855GjzxzodOuzks nervous system disorders (2 sources)Other chronic painChronicOther non-traumatic joint disorders (14 sources)Hip pain; Translations: [Pain in right hip]67-92-5381WecwnyekQmgix non-traumatic joint disorders (1 source)Pain in right hip; Translations: [Pain in right hip]Onset: 11-13-2024 EpisodicOther nutritional; endocrine; and metabolic disorders (2 sources)Akymtvm84-40-4230LmsioeoBomtc nutritional; endocrine; and metabolic disorders (20 sources)Body mass index 40+ - severely obese; Translations: [Morbid obesity] Onset: 50-61-1609XngeqmmBukmi nutritional; endocrine; and metabolic disorders (1 source)Morbid (severe) obesity due to excess calories; Translations: [Morbid obesity with BMI of 45.0-49.9, adult ([facility])]Onset: 09-55-9109YeuvbxsXewms nutritional; endocrine; and metabolic disorders (1 source)Body mass index (BMI) 45.0-49.9, adult; Translations: [Morbid obesity with BMI of 45.0-49.9, adult ([facility])]Onset: 65-30-5041XrpxaapWrjjp nutritional; endocrine; and metabolic disorders (20 sources)Morbid obesity; Translations: [Morbid (severe) obesity due to excess calories]Onset: 623495-93-7342MjvsdiqEkzwz nutritional; endocrine; and metabolic disorders (7 sources)Hypophosphatemia; Translations: [Other disorders of phosphorus metabolism]53-30-4828ZpyldkoDcrwi nutritional; endocrine; and metabolic disorders (7 sources)Hypomagnesemia; Translations: [Hypomagnesemia]31-20-0280GcyfhcoCdhnh nutritional; endocrine; and metabolic disorders (3 sources)Hypomagnesemia; Translations: [Disorders of magnesium metabolism] Onset: 443210-66-0491JkxbanvJlzpr nutritional; endocrine; and metabolic disorders (3 sources)Other disorders of phosphorus metabolism; Translations: [Disorders of phosphorus metabolism]Onset: 790287-23-5226QocnrzaRelnh screening for suspected conditions (not mental disorders or infectious disease) (1 source)Patient encounter status; Translations: [Encounter for screening for other disorder]EpisodicOther skin disorders (6 sources)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; Translations: [Other specified disorders of pigmentation]03-19-2024 EpisodicOther skin disorders (1 source)Other specified disorders of pigmentation; Translations: [Dyschromia, unspecified]10-56-5159YvdwbbtzMaxobdow codes; unclassified (6 sources)Pitting edema; Translations: [Edema, unspecified]02-30-1446Itwqlnkb Residual codes; unclassified (2 sources)Difficulty sleeping ; Translations: [Sleep disorder, unspecified] 43-42-8614VvbpiggjAjxzitzucci failure; insufficiency; arrest (adult) (13 sources)Acute respiratory failure; Translations: [Acute respiratory failure with hypoxia]Onset: 729840-72-6292PiqwmjwmKkzvdwdwd and history of mental health and substance abuse codes (1 source)Ex-smoker; Translations: [Personal history of tobacco use]Episodic Comment on above:quit 29+ years ago;Skin and subcutaneous tissue infections (20 sources)Cellulitis; Translations: [Cellulitis, unspecified]Onset: 03-08-2024 02-99-6802LcjjdyhoWmchsmawppu; intervertebral disc disorders; other back problems (20 sources)Solitary sacroiliitis; Translations: [Sacroiliitis, not elsewhere classified]Onset: 37-89-3578Vvhjxzu Past or Other Problems Problem ClassificationProblemDateDocumented DateEpisodic/ChronicBacterial infection; unspecified site (10 sources)Bacteremia; Translations: [Bacteremia]Onset: 834284-19-9737 EpisodicBiliary tract disease (20 sources)Biliary calculus; Translations: [Calculus of gallbladder without cholecystitis without obstruction]Onset: 287537-12-4708RrnroiikEmbrpvjg mellitus without complication (20 sources)Diabetes mellitus; Translations: [Diabetes mellitus without mention of complication, type II or unspecified type, not stated as uncontrolled]Onset: 08-12-2022 Resolved: 183045-57-4349DnlmsxxBvsjdco on above:type 2Genitourinary congenital anomalies (20 sources)Congenital buried penis; 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]Onset: 07-12-2022 Resolved: 87-66-1562CfsrpyuHncsqbdrj arthritis and osteomyelitis (except that caused by tuberculosis or sexually transmitted disease) (20 sources)Bacterial arthritis of sacroiliac joint; Translations: [Arthritis due to other bacteria, vertebrae]Onset: 148475-80-6712UotuvwwxFygilajwzyot conditions of male genital organs (20 sources)Balanoposthitis; 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]Onset: 05-10-2022 Resolved: 89-73-1008VpbukkhWtlgv male genital disorders (20 sources)Phimosis; Translations: [Phimosis]Onset: 04-69-5158EblkzbxpKgzqm non-traumatic joint disorders (20 sources)Pain in right hip joint; Translations: [Pain in right hip]Onset: 121167-84-1686SrzgufreLboghvhlmj (except in labor) (10 sources)Sepsis; Translations: [Sepsis, unspecified organism]Onset: 875937-06-9770ZhfntbbrMxvvshfpufv; intervertebral disc disorders; other back problems (20 sources)Radiculopathy, lumbar region; Translations: [Low back pain]Onset: 91-79-6873Wtljksib Results Test NameValueInterpretationReference RangeFacilityBlood Cultureon 01-04-2025 Bacteria identified Cx Nom (Bld)Gram Stain Gram Positive Cocci in Clusters ORGANISM: Micrococcus luteus (O:MICLUT) Organism Comments Organism not Routinely Tested for Susceptibilities PERFORMED BY: [place] [address] PATHOLOGIST [employer]BACK TRIMMER LESLIE PERKINS M.D.NormalThe Ecu Health Physician GroupComment on above: Performed By: #### MG, CMP, CBC #### [facility] [address] [place] [address] USAX-ray reportOrdered By: Adryan Del Castillo on 54-53-6479Knbox reportPIKE COMM[facility] [place] [address] XRay Report Signed Patient: Juan Bean JR MR#: [id number] : 1965 Acct:[id number] Age/Sex: 59 / M ADM Date: 5 Loc: XD Room: Type: [facility] Attending Dr: Osiel Lewis MD Copies to: Oseil Lewis MD~ Ordering Provider: Osiel Lewis MD Date of Service: 11/13/24 XR/XR hip RT min 2V(w/wo pelvis)*: M25.551 - Pain in right hip 2 views right hip INDICATION: Mid to lower back pain, right hip pain FINDINGS: Mild to moderate degenerative changes right hip and right sacroiliac joint. No fractures or dislocation identified. Soft tissues unremarkable. XR/XR hip RT min 2V(w/wo pelvis)* IMPRESSION: Nufc-vr-vsnruadx degenerative changes without evidence acute osseousabnormality. Impression dictated by: Adryan Del Castillo M.D. 11/13/2024 11:24 PM Dictation Location: [place] [address] Transcribed By: [facility] 11/13/242323 Dictated By: Adryan Del Castillo MD 11/13/242323 Signed By: 11/13/242323 [facility] Work Phone: Study reportPI[facility] Main [place] [address] [place] [address] XRay Report Signed Patient: Juan Bean JR MR#: [id number] : 1965 Acct:[id number] Age/Sex: 59 / M ADM Date: 5 [...] the thoracic spine. Focal congenital wedging of K30vqnumxtvv body likely congenital basis. Otherwise the The thoracic vertebral heights preserved. Mild dextrocurvature at the level of the thoracal lumbar junction. Gallstones identified. XR/XR thoracic spine 3V* IMPRESSION: Moderate degenerative changes. No evidence acute fracture malalignment. Incidental note of cholelithiasis. Impression dictated by: Adryan Del Castillo M.D. 11/13/2024 10:28 PM Dictation Location: [place] [address] Transcribed By: [facility] 11/13/242227 Dictated By: Adryan Del Castillo MD 11/13/242224 Signed By: 11/13/242227 [facility] Work Phone: xr hip RT min 2V(w/wo pelvis)*on 12-32-1106NN hip RT min 2V(w/wo pelvis)*[facility] Main [address] [address] XRay Report Signed Patient: Juan Bean JR MR#: [id number] : 1965 Acct:[id number] Age/Sex: 59 / M ADM Date: 11/13/24 Loc: XD Room: Type: REG CLI Attending [...] XR/XR hip RT min 2V(w/wo pelvis)* IMPRESSION: Yelt-ml-eniwdtzs degenerative changes without evidence acute osseous abnormality. Impression dictated by: Adryan Del Castillo M.D. 11/13/2024 11:24 PM Dictation Location: [place] [address] Transcribed By: [facility] 11/13/242323 Dictated By: Adryan Del Castillo MD 11/13/242323 Signed By: 11/13/[address] [place] [address] Physician GroupXR thoracic spine 3V*on 04-06-8309SY thoracic spine 3V*[facility] Main [place] [address] [place] [address] XRay Report Signed Patient: Juan Bean JR MR#: [id number] : 1965 Acct:[id number] Age/Sex: 59 / M ADM Date: 11/13/24 Loc: XD Room: Type: [facility] Attending Dr: Osiel Lweis MD Copies to: Osiel Lewis MD Ordering [...] Castillo M.D. 11/13/2024 10:28 PM Dictation Location: [place] [address] Transcribed By: [facility] 11/13/242227 Dictated By: Adryan Del Castillo MD 11/13/242224 Signed By: 11/13/242227[facility] Physician GroupLaboratory - Hematology and Cell countson 69-92-6992XlS8g (Bld) [Mass fraction]6.9 %[facility] HealthcareNo Panel Informationon 71-42-6020Qhiexrjvzghozv and review of laboratory resultsAbMyMichigan Medical Center AlmaNOAK HealthcareLaboratory - Hematology and Cell countson 86-98-5947SrN5n (Bld) [Mass fraction]8.3 %[facility] GoFishNo Panel Informationon 35-37-1303Gkxhvxnqppvviw and review of laboratory resultsAbPontiac General HospitalS HealthcareALBUMIN, RANDOM URINE W/CREATININEon 64-75-0210YYDUXGI, URINE<0.2 NormalSee Note:Quest DiagnosticsComment on above:Result Comment: Reference Range: Reference Range Not establishedPerformed By: #### 9877, 6520 #### [facility] [address], [address] [place] [phone] Case Packer: Urban Galloway MD #### [id number], [id number] #### [facility]ostics[facility] [address] [place] [phone] Case Packer: Ryann FrankliniALBUMIN/CREATININE RATIO, RANDOM URINENOTE Normal<30Quest DiagnosticsComment [...] be within a diagnostic category.Performed By: #### 3390, 0860 #### [facility] [address] [facility], [address] [place] [address] Case Packer: Urban Galloway MD #### [id number], 36191 #### [facility] [address] [place] [address] Case Packer: Ryann Pack FlatiCreatinine (U) [Mass/Vol]12 mg/tAUwr49-352 Quest DiagnosticsComment on above:Performed By: #### 6517, 0 #### [facility] [place] [address], [address] [place] [address] Case Packer: Urban Galloway MD #### 6399, 16787 #### [facility] [address] Case Packer: Ryann FrankliniCBC (INCLUDES DIFF/PLT)on 03-85-5617Ritwzewwo (Bld) [#/Vol]0.017 10*3/uLNormal0-200Quest DiagnosticsComment on above:Performed By: #### 6517, 0 #### [facility] [address], [address] [place] [address] Case Packer: Urban Galloway MD #### 6399, 72748 #### [facility] [address] [place] [address] Case Packer: Ryann FrankliniBasophils/100 WBC (Bld)0.2 %NormalQuest DiagnosticsComment on above:Performed By: #### 6517, 0 #### [facility] [address], [address] [place] [address] Case Packer: Urban Galloawy MD #### 6399, 14797 #### [facility] [address] [place] [address] Case Packer: Ryann FrankliniCOMMENT(S)NormalQuest DiagnosticsComment on above:Result Comment: Review of peripheral smear confirms automated results.Performed By: #### 6517, 4920 #### [facility] [address], [address] [place] [address] Case Packer: Urban Galloway MD #### [id number], 69246 #### [facility] [address] [place] [address] Case Packer: Ryann Pack FlatiEosinophils (Bld) [#/Vol]0.118 10*3/uLNormal 15-500Quest DiagnosticsComment on above:Performed By: #### 6517, 7600 #### [facility] [address], [address] [place] [address] Case Packer: Urban Galloway MD #### 6399, 36567 #### [facility] [address] Case Packer: Ryann FrankliniEosinophils/100 WBC (Bld)1.4 %NormalQuest DiagnosticsComment on above:Performed By: #### 6517, 0 #### [facility] [address], [address] [place] [address] Case Packer: Urban Galloway MD #### 6399, 13273 #### [facility] [address] [place] [address] Case Packer: Ryann FrankliniErythrocyte distribution width (RBC) [Ratio] 14.7 %Mvdwxw97.0-15.0Quest DiagnosticsComment on above:Performed By: #### 6517, 0 #### [facility] [address], [address] [place] [address] Case Packer: Urban Galloway MD #### 6399, 94383 #### [facility] [address] [place] [address] Case Packer: Ryann FrankliniHematocrit (Bld) [Volume fraction]40.6 %Normal 38.5-50.0Quest DiagnosticsComment on above:Performed By: #### 6517, 7600 #### [facility] [address], [address] [place] [address] Case Packer: Urban Galloway MD #### 6399, 19987 #### [facility] [address] [place] [address] Case Packer: Ryann FrankliniHemoglobin (Bld) [Mass/Vol]12.9 g/dLLow 13.2-17.1Quest DiagnosticsComment on above:Performed By: #### 6517, 7600 #### [facility] [place] [address], [address] [place] [address] Case Packer: Urban Galloway MD #### 6399, [id number] #### [facility] [address] [place] [address] Case Packer: Ryann FrankliniLymphocytes (Bld) [#/Vol]1.109 10*3/uLNormal 850-3900Quest DiagnosticsComment on above:Performed By: #### 6517, 0 #### [facility] [address], [address] [place] [address] Case Packer: Urban Galloway MD #### 6399, 90423 #### [facility] [address] [place] [address] Case Packer: Ryann FrankliniLymphocytes/100 WBC (Bld)13.2 %NormalQuest DiagnosticsComment on above:Performed By: #### 6517, 6790 #### [facility] [address], [address] [place] [address] Case Packer: Urban Galloway MD #### 6399, 25631 #### [facility] [address] [place], [place] [phone] Case Packer: Ryann FrankliniMCH (RBC) [Entitic mass]29.7 liNoyhih69.0-33.0 Quest DiagnosticsComment on above:Performed By: #### 6517, 3120 #### [facility] [address], [address] [place] [address] Case Packer: Urban Galloway MD #### 6399, 89385 #### [facility] [address] [place] [address] Case Packer: Ryann BaltazarCHC (RBC) [Mass/Vol]31.8 g/dLLow32.0-36.0 Quest DiagnosticsComment on above:Result Comment: For adults, a slight decrease in the calculated MCHC value (in the range of 30 to 32 g/dL) is most likely not clinically significant; however, it should be interpreted with caution in correlation with other red cell parameters and the patient's clinical condition.Performed By: #### 6517, 7600 #### [facility] [address], [address] [place] [address] Case Packer: Urban Galloway MD #### 6399, 78649 #### [facility] [address] [place], [place] [phone] Case Packer: Ryann FrankliniMCV (RBC) [Entitic vol]93.5 yBGtttyx58.0-100.0 Quest DiagnosticsComment on above:Performed By: #### 6517, 7600 #### [facility] [address], [address] [place] [address] Case Packer: Urban Galloway MD #### 6399, 55308 #### [facility] [address] [place], [place] [phone] Case Packer: Ryann Pack FlatiMonocytes (Bld) [#/Vol]0.596 10*3/uLNormal 200-950Quest DiagnosticsComment on above:Performed By: #### 6517, 7600 #### [facility] [address] , [address] [place] [address] Case Packer: Urban Galloway MD #### 6399, 62552 #### [facility] [address] [place] [phone] Case Packer: Ryann Pack FlatiMonocytes/100 WBC (Bld)7.1 %NormalQuest DiagnosticsComment on above:Performed By: #### 6517, 7600 #### [facility] [address], [address] [place], [place] [phone] Case Packer: Urban Galloway MD #### 6399, [address] #### [place] [address] Case Packer: Ryann Pack FlatiNeutrophils (Bld) [#/Vol]6.56 10*3/uLNormal 1500-7800Quest DiagnosticsComment on above:Performed By: #### 6517, 7600 #### [facility] [address], [address] [place] [address] Case Packer: Urban Galloway MD #### 6399, 67388 #### [facility] [address] Case Packer: Ryann Pack FlatiNeutrophils/100 WBC (Bld)78.1 %NormalQuest DiagnosticsComment on above:Performed By: #### 6517, 0 #### [facility] [address] , [address] [place] [address] Case Packer: Urban Galloway MD #### 6399, 15818 #### [place] [address] Case Packer: Ryann Pack FlatiPlatelet mean volume (Bld) [Entitic vol]10.0 fLNormal7.5-12.5Quest DiagnosticsComment on above:Performed By: #### 6517, 7600 #### [facility] [address], [address] [place] [address] Case Packer: Urban Galloway MD #### 6399, 05839 #### [facility] [address] [place], [place] [phone] Case Packer: Ryann Pack FlatiPlatelets (Bld) [#/Vol]186 10*3/uLNormal 140-400Quest DiagnosticsComment on above:Performed By: #### 6517, 7600 #### [facility] [address] , [address] [place] [address] Case Packer: Urban Galloway MD #### 6399, 47592 #### [facility] [address] [place] [address] Case Packer: Ryann FrankliniRBC (Bld) [#/Vol]4.34 10*6/uLNormal4.20-5.80 Quest DiagnosticsComment on above:Performed By: #### 6517, 7600 #### [facility] [address], [address] [place] [address] Case Packer: Urban Galloway MD #### 6399, 86760 #### [facility] [address] Case Packer: Ryann FrankliniWBC (Bld) [#/Vol]8.4 10*3/uLNormal3.8-10.8 Quest DiagnosticsComment on above:Performed By: #### 6517, 7600 #### [facility] [address], [address] [place] [address] Case Packer: Urban Galloway MD #### 6399, 58009 #### [facility] [address] Case Packer: Ryann FrankliniCOMPREHENSIVE METABOLIC PANELon 05-15-2024 Albumin [Mass/Vol]4.4 g/dLNormal3.6-5.1Quest DiagnosticsComment on above: Performed By: #### 6517, 7600 #### [facility] [address] , [address] [place] [address] Case Packer: Urban Galloway MD #### 6399, 78012 #### [facility] [phone] Case Packer: Ryann FrankliniAlbumin/Globulin [Mass ratio]1.4 {ratio}Normal 1.0-2.5Quest DiagnosticsComment on above:Performed By: #### 6517, 7600 #### [facility] of [address], [address] [place] [address] Case Packer: Urban Galloway MD #### 6399, 65051 #### [facility] [address] Case Packer: Ryann Pack FlatiALP [Catalytic activity/Vol]54 U/VUzignx41-628 Quest DiagnosticsComment on above:Performed By: #### 6517, 7600 #### [facility] [address], [address] [place], [place] [address] Case Packer: Urban Galloway MD #### 6399, 05633 #### [facility] [address] Case Packer: Ryann Pack FlatiALT [Catalytic activity/Vol]22 U/LNormal9-46 Quest DiagnosticsComment on above:Performed By: #### 6517, 0 #### [facility] [address] , [address] [place] [address] Case Packer: Urban Galloway MD #### 6399, 49489 #### [facility] [address] Case Packer: Ryann FrankliniAST [Catalytic activity/Vol]21 U/PPxhrta45-24 [facility] DiagnosticsComment on above:Performed By: #### 6517, 0 #### [facility] of [address], [address] [place] [address] Case Packer: Urban Galloway MD #### 6399, 47391 #### [facility] [address] [place] [address] Case Packer: Ryann FrankliniBilirubin [Mass/Vol]0.6 mg/dLNormal0.2-1.2 Quest DiagnosticsComment on above:Performed By: #### 6517, 0 #### [facility] of [address], [address] [place] [address] Case Packer: Urban Galloway MD #### 6399, 76166 #### [facility] [address] [place] [address] Case Packer: Ryann FrankliniBUN/CREATININE RATIOSEE NOTE:Normal6-22Quest DiagnosticsComment on above:Result Comment: Not Reported: BUN and Creatinine are within reference range.Performed By: #### 6517, 0 #### [facility] [place] [address], [address] [place] [address] Case Packer: Urban Galloway MD #### 6399, 40107 #### [facility] [address] [place] [address] Case Packer: Ryann Pack FlatiCalcium [Mass/Vol]9.7 mg/dLNormal8.6-10.3Quest DiagnosticsComment on above:Performed By: #### 5117, 0 #### [facility] [place] [address], [address] [place] [address] Case Packer: Urban Galloway MD #### 6399, 20415 #### [facility] [address] [place] [address] Case Packer: Ryann Pack FlatiChloride [Moles/Vol]98 mmol/JMxedqk33-314Rgkwa DiagnosticsComment on above:Performed By: #### 6517, 0 #### [facility] [place] [address], [address] [place] [address] Case Packer: Urban Galloway MD #### 6399, 74441 #### [facility] [address] [place], [place] [phone] Case Packer: Ryann Pack FlatiCO2 [Moles/Vol]31 mmol/MHsqifk70-23Cbemr DiagnosticsComment on above:Performed By: #### 6517, 7600 #### [facility] [place] [address], [address] [place] [address] Case Packer: Urban Galloway MD #### 6399, 85937 #### [facility] [address] [place] [phone] Case Packer: Ryann Pack FlatiCreatinine [Mass/Vol]0.79 mg/dLNormal0.70-1.30 Quest DiagnosticsComment on above:Performed By: #### 6517, 2350 #### [facility] [address], [address] [place] [address] Case Packer: Urban Galloway MD #### [id number], [id number] #### [facility] [address] [place] [phone] Case Packer: Ryann FrankliniGFR/1.73 sq M.predicted among non-blacks MDRD (S/P/Bld) [Vol rate/Area]102 mL/min/{1.73_m2}Normal> OR = 60[facility] Comment on above:Performed By: #### 6517, 0 #### [facility] [address], [address] [place] [address] Case Packer: Urban Galloway MD #### [id number], [id number] #### [facility] [address] [place] [phone] Case Packer: Ryann FrankliniGlobulin (S) [Mass/Vol]3.1 g/dLNormal1.9-3.7 Quest DiagnosticsComment on above:Performed By: #### 6517, 0 #### [facility] [address], [address] [place] [address] Case Packer: Urban Galloway MD #### [id number], [id number] #### [facility] [address] [place] [phone] Case Packer: Ryann FrankliniGlucose [Mass/Vol]193 mg/uJGlio18-02Obzru DiagnosticsComment on above:Result Comment: Fasting reference interval For someone without known diabetes, a glucose value >125 mg/dL indicates that they may have diabetes and this should be confirmed with a follow-up test.Performed By: #### 6517, 7600 #### [facility] [address], [address] [place] [address] Case Packer: Urban Galloway MD #### [id number], [id number] #### [facility] [address] Case Packer: Ryann Pack FlatiPotassium [Moles/Vol]4.5 mmol/LNormal3.5-5.3 Quest DiagnosticsComment on above:Performed By: #### 6517, 7600 #### [facility] [address], [address] [place] [address] Case Packer: Urban Galloway MD #### [id number], [id number] #### [facility] [address] Case Packer: Ryann Pack FlatiProtein [Mass/Vol]7.5 g/dLNormal6.1-8.1Quest DiagnosticsComment on above:Performed By: #### 6517, 0 #### [facility] [address], [address] [place] [address] Case Packer: Urban Galloway MD #### [id number], [id number] #### [facility] [address] Case Packer: Ryann Pack FlatiSodium [Moles/Vol]139 mmol/MYehctl177-212Ftelh DiagnosticsComment on above:Performed By: #### 6517, 0 #### [facility] [address], [address] [place] [address] Case Packer: Urban Galloway MD #### [id number], [id number] #### [facility] [address] [place], [place] [phone] Case Packer: Ryann FrankliniUrea nitrogen [Mass/Vol]25 mg/dLNormal7-25 Quest DiagnosticsComment on above:Performed By: #### 6517, 4100 #### [facility] [address], [address] [place] [address] Case Packer: Urban Galloway MD #### [id number], [id number] #### [facility] [address] [place] [address] Case Packer: Ryann HYLTON [facility] 61-71-5083Atgzngcdtju [Mass/Vol]136 mg/dLNormal<200Quest DiagnosticsComment on above:Order Comment: FASTING:YES FASTING: YESPerformed By: #### 6517, 7600 #### [facility] [address], [address] [place] [address] Case Packer: Urban Galloway MD #### [id number], [id number] #### [facility] [address] [place] [address] Case Packer: Ryann FrankliniCholesterol in HDL [Mass/Vol]63 mg/dLNormal> OR = 40Quest DiagnosticsComment on above:Order Comment: FASTING:YES FASTING: YESPerformed By: #### 6517, 2120 #### [facility] [address], [address] [place] [address] Case Packer: Urban Galloway MD #### [id number], [id number] #### [facility] [address] [place] [address] Case Packer: Ryann FrankliniCholesterol in LDL [Mass/Vol]50 mg/dLNormal Quest DiagnosticsComment on above:Order Comment: FASTING:YES FASTING: YESResult Comment: Reference range: <100 Desirable range <100 mg/dL for primary prevention; <70 mg/dL for patients with CHD or diabetic patients with > or = 2 CHD risk factors. LDL-C is now calculated using the Sujatha calculation, which is a validated novel method providing better accuracy than the Friedewald equation in the estimation of LDL-C. Sedrick HOLBROOK et al. MITZY. 2013;310(19): 2416-5375 (http://education.Doximity.Boutir/faq/OBR939)Performed By: #### 6517, 8820 #### [facility] [address], [address] [place] [address] Case Packer: Urban Galloway MD #### [id number], [id number] #### [facility] [address] [place] [address] Case Packer: Ryann Ashley.total/Cholesterol in HDL [Mass ratio]2.2 {ratio}Normal<5.0Quest DiagnosticsComment on above:Order Comment: FASTING:YES FASTING: YESPerformed By: #### 6517, 7600 #### [facility] [address], [address] [place] [address] Case Packer: Urban Galloway MD #### [phone], [phone] #### [facility] [address] [place] [address] Case Packer: Ryann Anne HDL SAOJIFWFZOB48 mg/dL (calc)Normal<130 Quest DiagnosticsComment on above:Order Comment: FASTING:YES FASTING: YESResult Comment: For patients with diabetes plus 1 major ASCVD risk factor, treating to a non-HDL-C goal of <100 mg/dL (LDL-C of <70 mg/dL) is considered a therapeutic option.Performed By: #### 6517, 1640 #### [facility] [address], [address] [place] [address] Case Packer: Urban Galloway MD #### [id number], [id number] #### [facility] [address] [place] [address] Case Packer: Ryann FrankliniTriglyceride [Mass/Vol]152 mg/dLHigh<150Quest DiagnosticsComment on above:Order Comment: FASTING:YES FASTING: YESPerformed By: #### 6517, 4360 #### [facility] [address], [address] [place] [address] Case Packer: Urban Galloway MD #### [id number], [id number] #### [facility] [address] [place] [address] Case Packer: Ryann R FlatiLaboratory - Hematology and Cell countson 81-72-4183McV0j (Bld) [Mass fraction]7.8 %[facility] HealthcareNo Panel Informationon 44-21-7756Fpplapvhhjmhqb and review of laboratory resultsAbChildren's Hospital of [facility] NOMS HealthcareUS venous duplex LE LTon 04-58-1436XH venous duplex LE LT [facility] [place] [address] Ultrasound Report Signed Patient: Juan Bean JR MR#: [id number] : 1965 Acct:[id number] Age/Sex: 59 / M ADM Date: 04/02/24 Loc: Room: Type: [facility] Attending Dr: Carolyn Bautista APRN Ordering Provider: [...] Alex Sandoval MD04/02/2024 3:30 PM Dictation Location: [place] [address] Tech: Joanne Lorenzo Transcribed By: GISSELL 04/02/24 1530 Dictated By: Alex Sandoval MD 04/02/24 1527 Signed By: 04/02/24 1530[facility] Physician GroupGlucose Glucometer (BldC) [Mass/Vol]Ordered By: Jorge Luis Mcgregor on 33-77-3472Rdiwnyr [Mass/Vol]Capillary blood glucose measurement by glucometer (mass/volume)[facility] TroyComment on above:Random Glucose Reference Range is dependent on time and content of last meal. Glucose of more than 200 mg/dL in a nonstressed, ambulatory subject supports the diagnosis of Diabetes Mellitus.Glucose Poct Glucometerson 03-32-7357Wztlupl [Mass/Vol]172 mg/dLNoSelect [facility]ty [facility] Physician GroupComment on above:Result Comment: Random Glucose Reference Range is dependent on time and content of last meal. Glucose of more than 200 mg/dL in a nonstressed, ambulatory subject supports the diagnosis of Diabetes Mellitus. PERFORMED BY: [place] [address] PATHOLOGIST FATBACK TRIMMER WICHO EVERETT M.D.Performed By: #### GLULS ####Point of Care testing, Glucose [Mass/Vol]177 mg/dLNoSelect Specialty Hospital [facility] Physician GroupComment on above: Result Comment: Random Glucose Reference Range is dependent on time and content of last meal. Glucose of more than 200 mg/dL in a nonstressed, ambulatory subject supports the diagnosis of Diabetes Mellitus. PERFORMED BY: [place] [phone] PATHOLOGIST FATBACK TRIMMER WICHO EVERETT M.D.Performed By: #### MG, CMP, CBC #### [address]Glucose [Mass/Vol]154 mg/dLNoSelect Specialty Hospital [facility] Physician GroupComment on above:Result Comment: Random Glucose Reference Range is dependent on time and content of last meal. Glucose of more than 200 mg/dL in a nonstressed, ambulatory subject supports the diagnosis of Diabetes Mellitus. PERFORMED BY: [place] [address] PATHOLOGIST FATBACK TRIMMER WICHO EVERETT M.D.Performed By: #### GLULS #### Point of Care testing ,Glucose Poct Glucometerson 70-72-3181Jbakcss [Mass/Vol]222 mg/dLNoSelect Specialty [facility] Physician GroupComment on above:Result Comment: Random Glucose Reference Range is dependent on time and content of last meal. Glucose of more than 200 mg/dL in a nonstressed, ambulatory subject supports the diagnosis of Diabetes Mellitus. PERFORMED BY: [place] [address] PATHOLOGIST FATBACK TRIMMER WICHO EVERETT M.D.Performed By: #### MG, CMP, CBC #### [place] [address] USAGlucose [Mass/Vol]179 mg/dLPalm Springs General Hospital Physician GroupComment on above:Result Comment: Random Glucose Reference Range is dependent on time and content of last meal. Glucose of more than 200 mg/dL in a nonstressed, ambulatory subject supports the diagnosis of Diabetes Mellitus. PERFORMED BY: [place] [address] PATHOLOGIST FATBACK TRIMMER WICHO EVERETT M.D.Performed By: #### MG, CMP, CBC #### [place] [address] VLNNvjpddn3Dkj8: Cleaned MeterNoSelect Specialty Hospital [facility] Physician GroupComment on above:Result Comment: PERFORMED BY: [place] [address] PATHOLOGIST FATBACK TRIMMER WICHO EVERETT M.D.Performed By: #### MG, CMP, CBC #### [place] [address] USAGlucose [Mass/Vol]183 mg/dLNoSelect [facility] Physician GroupComment on above:Result Comment: Random Glucose Reference Range is dependent on time and content of last meal. Glucose of more than 200 mg/dL in a nonstressed, ambulatory subject supports the diagnosis of Diabetes Mellitus.Performed By: #### MG, CMP, CBC #### [place] [address] USAGlucose [Mass/Vol]176 mg/dLNoSelect Specialty [facility] Physician GroupComment on above:Result Comment: Random Glucose Reference Range is dependent on time and content of last meal. Glucose of more than 200 mg/dL in a nonstressed, ambulatory subject supports the diagnosis of Diabetes Mellitus. PERFORMED BY: [place] [address] PATHOLOGIST FATBACK TRIMMER WICHO EVERETT M.D.Performed By: #### GLULS ####Point of Care testing,No Panel InformationOrdered By: Jorge Luis Mcgregor on 74-51-6527Usvlgsv Glucose CommentGlu2: cleaned [facility]-FairhillGlucose Poct Glucometerson 69-59-9001Hzduwtd [Mass/Vol]184 mg/dLNoSelect Specialty [facility] Physician GroupComment on above:Result Comment: Random Glucose Reference Range is dependent on time and content of last meal. Glucose of more than 200 mg/dL in a nonstressed, ambulatory subject supports the diagnosis of Diabetes Mellitus. PERFORMED BY: [place] [address] PATHOLOGIST FATBACK TRIMMER WICHO EVERETT M.D.Performed By: #### GLULS ####Point of Care testing, Pqgfstw5Iiu2: Cleaned MeterPalm Springs General Hospital Physician GroupComment on above: Result Comment: PERFORMED BY: [place] [address] PATHOLOGIST FATBACK TRIMMER WICHO EVERETT M.D.Performed By: #### MG, CMP, CBC #### [facility] [address] [place] [address] USAGlucose [Mass/Vol]171 mg/dLNoSelect Specialty [facility] Physician GroupComment on above:Result Comment: Random Glucose Reference Range is dependent on time and content of last meal. Glucose of more than 200 mg/dL in a nonstressed, ambulatory subject supports the diagnosis of Diabetes Mellitus.Performed By: #### MG, CMP, CBC #### [facility] [address] [place] [address] USAGlucose [Mass/Vol]257 mg/dLNoSelect [facility]ty [facility] Physician GroupComment on above:Result Comment: Random Glucose Reference Range is dependent on time and content of last meal. Glucose of more than 200 mg/dL in a nonstressed, ambulatory subject supports the diagnosis of Diabetes Mellitus. PERFORMED BY: [place] [address] PATHOLOGIST FATBACK TRIMMER WICHO EVERETT M.D.Performed By: #### MG, CMP, CBC #### [place] [address] [id number]: Cleaned MeterNoSelect Specialty Hospital [facility] Physician GroupComment on above:Result Comment: PERFORMED BY: [place] [address] PATHOLOGIST FATBACK TRIMMER WICHO EVERETT M.D.Performed By: #### GLULS #### Point of Care testing ,Glucose [Mass/Vol]237 mg/dLPalm Springs General Hospital Physician GroupComment on above: Result Comment: Random Glucose Reference Range is dependent on time and content of last meal. Glucose of more than 200 mg/dL in a nonstressed, ambulatory subject supports the diagnosis of Diabetes Mellitus.Performed By: #### GLULS #### Point of Care testing ,Basic Metabolic Panelon 71-00-7630Lgvvt gap [Moles/Vol]11.6 mmol/LNormal 6.0-15.0The [facility] Physician GroupComment on above:Performed By: #### MG, CMP, CBC #### [place] [address] USACalcium [Mass/Vol]8.6 mg/dLNormal8.6-10.3The [facility] Physician GroupComment on above:Performed By: #### MG, CMP, CBC #### [facility] [address] [place] [address] USAChloride [Moles/Vol]94 mmol/YRqx78-335Gpk [facility] Physician GroupComment on above:Performed By: #### MG, CMP, CBC #### [place] [address] USACO2 [Moles/Vol]33.6 mmol/LHigh21.0-31.0The [facility] Physician GroupComment on above:Performed By: #### MG, CMP, CBC #### [facility] [address] [place] [address] USACreatinine [Mass/Vol]0.89 mg/dLNormal0.70-1.30The [facility] Physician GroupComment on above:Performed By: #### MG CMP, CBC #### [facility] [address] [place] [address] USACreatinine Clr Calc Yaocfqnz172.42NormalThe [facility]cu Health Physician GroupComment on above:Performed By: #### MG CMP, CBC #### [facility] [address] [place] [address] USAGFR/1.73 sq M.predicted MDRD (S/P/Bld) [Vol rate/Area] mL/min/{1.73_m2}NormalThe [facility]cu Health Physician GroupComment on above:Performed By: #### MG CMP, CBC #### [facility] [address] [place] [address] USAGlucose [Mass/Vol]214 mg/zLXtht94-991Hfr [facility] Physician GroupComment on above:Result Comment: Random Glucose Reference Range is dependent on time and content of last meal. Glucose of more than 200 mg/dL in a nonstressed, ambulatory subject supports the diagnosis of Diabetes Mellitus. ADA recommended reference rangePerformed By: #### MG CMP, CBC #### [facility] [address] [place] [address] USAPotassium [Moles/Vol]4.2 mmol/LNormal3.5-5.1The [facility] Physician GroupComment on above:Performed By: #### MG, CMP, CBC #### [facility] [address] [place] [address] USASodium [Moles/Vol]135 mmol/LSignificant change fjzh334-191 The [facility] Physician GroupComment on above:Performed By: #### MG, CMP, CBC #### [facility] [address] [place] [address] USAUrea nitrogen [Mass/Vol]15 mg/dLNormal7-25The [facility] Physician GroupComment on above:Performed By: #### MG, CMP, CBC #### [facility] [address] [place] [id number] USACalcium [Mass/volume] in Serum or PlasmaOrdered By: Gomez Sunshine on 92-89-0593Mhdxfax [Mass/Vol]Calcium [Mass/volume] in Serum or Plasma 8.6-10.3FKettering HealthCarbon dioxide, total [Moles/volume] in Serum or PlasmaOrdered By: Gomez Sunshine on 19-13-6427QQ7 [Moles/Vol]Carbon dioxide, total [Moles/volume] in Serum or LishvwQyun36.0-31.0[facility] TroyChloride [Moles/volume] in Serum or PlasmaOrdered By: Gomez Sunshine on 17-92-7559Xttzqtzy [Moles/Vol]Chloride [Moles/volume] in Serum or GgwwunAzp69-700JawzsuyzwKettering Health TroyCreatinine [Mass/volume] in Serum or PlasmaOrdered By: Gomez Sunshnie on 52-94-8013Hrgjxbxeku [Mass/Vol] Creatinine [Mass/volume] in Serum or Plasma0.70-1.30[facility] TroyGlucose Poct Glucometerson 93-62-5238Tbhtxar8Pcm8: Cleaned MeterNoSelect Specialty Hospital - [facility] Physician GroupComment on above:Result Comment: PERFORMED BY: [place] [address] PATHOLOGIST FATBACK TRIMMER WICHO EVERETT M.D.Performed By: #### MG, CMP, CBC #### [facility] [address] [place] [address] USAGlucose [Mass/Vol]227 mg/dLNoSelect Specialty Hospital - [facility] Physician GroupComment on above:Result Comment: Random Glucose Reference Range is dependent on time and content of last meal. Glucose of more than 200 mg/dL in a nonstressed, ambulatory subject supports the diagnosis of Diabetes Mellitus.Performed By: #### MG, CMP, CBC #### [place] [address] QUWKwnmuxf1Cag5: Cleaned MeterNormBayfront Health St. Petersburg Emergency Room Physician GroupComment on above:Result Comment: PERFORMED BY: [address] [place] [address] PATHOLOGIST FATBACK TRIMMER WICHO EVERETT M.D.Performed By: #### MG, CMP, CBC #### [place] [address] USAGlucose [Mass/Vol]276 mg/dLNoSelect [facility] Physician GroupComment on above:Result Comment: Random Glucose Reference Range is dependent on time and content of last meal. Glucose of more than 200 mg/dL in a nonstressed, ambulatory subject supports the diagnosis of Diabetes Mellitus.Performed By: #### MG, CMP, CBC #### [place] [address] USAGlucose [Mass/Vol]262 mg/dLNoSelect Specialty [facility] Physician GroupComment on above:Result Comment: Random Glucose Reference Range is dependent on time and content of last meal. Glucose of more than 200 mg/dL in a nonstressed, ambulatory subject supports the diagnosis of Diabetes Mellitus. PERFORMED BY: [place] [address] PATHOLOGIST FATBACK TRIMMER WICHO EVERETT M.D.Performed By: #### MG, CMP, CBC #### [place] [address] UGEIeknvat7Wrf4: Cleaned MeterNoSelect [facility] Physician GroupComment on above:Result Comment: PERFORMED BY: [place] [address] PATHOLOGIST FATBACK TRIMMER WICHO EVERETT M.D.Performed By: #### MG, CMP, CBC #### [place] [address] USAGlucose [Mass/Vol]224 mg/dLPalm Springs General Hospital Physician GroupComment on above:Result Comment: Random Glucose Reference Range is dependent on time and content of last meal. Glucose of more than 200 mg/dL in a nonstressed, ambulatory subject supports the diagnosis of Diabetes Mellitus.Performed By: #### MG, CMP, CBC #### [place] [address] USAGlucose [Mass/volume] in Serum or PlasmaOrdered By: Gomez Sunshine on 20-11-3068Fvodktj [Mass/Vol]Glucose [Mass/volume] in Serum or Plasma Chlh73-284NpnypwjczKettering Health TroyComment on above:ADA recommended reference rangeRandom Glucose Reference Range is dependent on time and content of last meal. Glucose of more than 200 mg/dL in a nonstressed, ambulatory subject supports the diagnosisof Diabetes Mellitus.No Panel InformationOrdered By: Gomez Sunshine on 84-77-1224Xcrwhigdr GFR (CKD-EPI)> 60.0 mL/MinKettering Health TroyPharmacy Creatinine Clearance (Xevg810.42[facility] TroyPhosphate [Mass/volume] in Serum or PlasmaOrdered By: Gomez Sunshine on 30-77-3650Clhdabebc [Mass/Vol]Phosphate [Mass/volume] in Serum or Plasma2.5-4.5FKettering HealthPhosphoruson 03-11-2024 Phosphate [Mass/Vol]3.0 mg/dLNormal2.5-4.5The [facility] Physician GroupComment on above:Result Comment: PERFORMED BY: [place] [address] PATHOLOGIST FATBACK TRIMMER WICHO EVERETT M.D.Performed By: #### MG, CMP, CBC #### [place] [id number] USAPotassium [Moles/volume] in Serum or PlasmaOrdered By: Gomez Sunshine on 52-21-1819Nmfsqifli [Moles/Vol]Potassium [Moles/volume] in Serum or Plasma3.5-5.1FUniversity Hospitals Conneaut Medical Centererum or plasma anion gap determinationOrdered By: Gomez Sunshine on 79-73-0767Bfmby gap [Moles/Vol]Serum or plasma anion gap determination6.0-15.0Mercy Healthodium [Moles/volume] in Serum or PlasmaOrdered By: Gomez Sunshine on 24-58-7478Zdibvj [Moles/Vol]Sodium [Moles/volume] in Serum or PlasmaInvalid Interpretation Code 136-145K[facility] Health TroyComment on above:Delta: 129 on 03/10/24Urea nitrogen [Mass/volume] in Serum or PlasmaOrdered By: Gomez Sunshine on 86-04-5197Plzi nitrogen [Mass/Vol]Urea nitrogen [Mass/volume] in Serum or Plasma09-28[facility] TroyVancomycin [Mass/volume] in Serum or Plasma --troughOrdered By: Gomez Sunshine on 04-45-9732Cutsndnxvn trough [Mass/Vol]Serum or plasma trough vancomycin level10.0-20.0[facility] TroyComment on above:Last dose: -Vancomycin,Troughon 03-11-2024 Vancomycin,Fpvtnu72.8 ug/tAIkstnl69.0-20.0The [facility] Physician GroupComment on above:Order Comment: Time of next dose? 0500 Date of last dose?: 20240310 Time of last dose?: 2099Result Comment: Last dose: - PERFORMED BY: [place] [address] PATHOLOGIST FATBACK TRIMMER WICHO EVERETT M.D.Performed By: #### MG, CMP, CBC #### [address]Alanine aminotransferase [Enzymatic activity/volume] in Serum or PlasmaOrdered By: Gomez Sunshine on 28-14-8476VOO [Catalytic activity/Vol]Alanine aminotransferase [Enzymatic activity/volume] in Serum or PlasmaKettering Health TroyAlbumin [Mass/volume] in Serum or Plasma by Bromocresol green (BCG) dye binding methoOrdered By: Gomez Sunshine on 77-55-1161Mhyqlje BCG dye [Mass/Vol]Albumin [Mass/volume] in Serum or Plasma by Bromocresol green (BCG) dye binding methoLow3.5-5.7FKettering HealthAlkaline phosphatase [Enzymatic activity/volume] in Serum or PlasmaOrdered By: Gomez Sunshine on 68-98-8694AIQ [Catalytic activity/Vol]Alkaline phosphatase [Enzymatic activity/volume] in Serum or Ageehh70-445JvmzxpevbKettering Health TroyAppearance of UrineOrdered By: Gomez Sunshine on 26-78-5853Haqummgqel (U) Urine appearanceClearFKettering HealthAspartate aminotransferase [Enzymatic activity/volume] in Serum or PlasmaOrdered By: Gomez Sunshine on 78-67-9107KOH [Catalytic activity/Vol]Aspartate aminotransferase [Enzymatic activity/volume] in Serum or Dbmbrq89-91QxfacquodKettering Health Troy Bacteria [Presence] in Urine by AutomatedOrdered By: Gomez Sunshine on 03-10-2024 Bacteria Auto Ql (U)Bacteria [Presence] in Urine by AutomatedNone SeenKettering Health TroyBasophils Auto (Bld) [#/Vol]Ordered By: Gomez Sunshine on 19-72-0915Vykgudaiy (Bld) [#/Vol]Automated basophil count0.0-0.2FKettering HealthBasophils/100 WBC Auto (Bld)Ordered By: Gomez Sunshine on 34-91-0963Tioizswcb/100 WBC (Bld)Automated basophil %.[facility] TroyBilirubin Test strip Ql (U)Ordered By: Gomez Sunshine on 03-10-2024 Bilirubin Ql (U)Bilirubin.total [Presence] in Urine by Test stripNegative [facility] TroyBilirubin.total [Mass/volume] in Serum or PlasmaOrdered By: Gomez Sunshine on 24-17-3583Ibabqaiyn [Mass/Vol]Bilirubin.total [Mass/volume] in Serum or Plasma0.3-1.0[facility] TroyColor Auto (U)Ordered By: Gomez Sunshine on 04-25-2336Mzddd (U)Color of Urine by Auto YellowKettering Health TroyComplete Blood Count Auto Diffon 30-82-3923Gwbpnrkly (Bld) [#/Vol]0.0 10*3/uLNormal0.0-0.2The [facility] Physician GroupComment on above:Result Comment: PERFORMED BY: [facility] [address] [place] [address] PATHOLOGIST FATBACK TRIMMER WICHO EVERETT M.D.Performed By: #### MG, CMP, CBC #### [facility] [address] [place] [address] USABasophils/100 WBC (Bld)0.2 %Normal.The [facility] Physician GroupComment on above:Performed By: #### MG, CMP, CBC #### [place] [address] USAEosinophils (Bld) [#/Vol]0.1 10*3/uLNormal0.0-0.45The [facility] Health Physician GroupComment on above:Performed By: #### MG, CMP, CBC #### [place] [address] USAEosinophils/100 WBC (Bld)0.6 %Normal.The [facility] Physician GroupComment on above:Performed By: #### MG, CMP, CBC #### [place] [address] USAErythrocyte distribution width (RBC) [Ratio]14.0 %Normal 12.0-14.8The [facility] Physician GroupComment on above:Performed By: #### MG, CMP, CBC #### [place] [address] USAHematocrit (Bld) [Volume fraction]31.1 %Low38.8-50.0The [facility] Physician GroupComment on above:Performed By: #### MG, CMP, CBC #### [place] [address] USAHemoglobin (Bld) [Mass/Vol]10.6 g/dLLow13.0-17.0The [facility] Physician GroupComment on above:Performed By: #### MG, CMP, CBC #### [place] [address] USALymphocytes (Bld) [#/Vol]0.9 10*3/uLLow1.00-4.8The Ecu Health Physician GroupComment on above:Performed By: #### MG, CMP, CBC #### [place] [address] USALymphocytes/100 WBC (Bld)8.2 %Normal.The [facility]cu Health Physician GroupComment on above:Performed By: #### MG, CMP, CBC #### [facility] [address]H (RBC) [Entitic mass]31.2 xsHnbcwl67.5-35.2The [facility]cu Health Physician GroupComment on above:Performed By: #### MG, CMP, CBC #### [address] (RBC) [Entitic vol]91.3 gITxzhjs04.5-101The Ecu Health Physician GroupComment on above:Performed By: #### MG, CMP, CBC #### [place] [address] USAMean Corpuscular HGB Conc34.2 g/kAFadpyy87.5-35.6The [facility]cu Health Physician GroupComment on above:Performed By: #### MG, CMP, CBC #### [place] [address] USAMonocytes (Bld) [#/Vol]0.9 10*3/uLHigh0.0-0.8The [facility]cu Health Physician GroupComment on above:Performed By: #### MG, CMP, CBC #### [place] [address] USAMonocytes/100 WBC (Bld)8.2 %Normal.The [facility] Health Physician GroupComment on above:Performed By: #### MG, CMP, CBC #### [place] [address] USANeutrophils (Bld) [#/Vol]8.7 10*3/uLHigh1.8-7.7The [facility]cu Health Physician GroupComment on above:Performed By: #### MG, CMP, CBC #### [place] [address] USANeutrophils/100 WBC (Bld)82.8 %Normal.The [facility] Health Physician GroupComment on above:Performed By: #### MG, CMP, CBC #### [place] [address] USANRBC%0.1 /100{WBC}Normal0-0.5The [facility] Comment on above:Performed By: #### MG, CMP, CBC #### [facility] [address] [place] [address] USAPlatelet mean volume (Bld) [Entitic vol]8.1 fLNormal 6.6-10.1The [facility] Health Physician GroupComment on above:Performed By: #### MG, CMP, CBC #### [place] [address] USAPlatelets (Bld) [#/Vol]184 10*3/mESskjgj785-749Prw [facility] Health Physician GroupComment on above:Performed By: #### MG, CMP, CBC #### [place] [address] USARBC (Bld) [#/Vol]3.40 10*6/uLLow3.90-5.60The [facility] Health Physician GroupComment on above:Performed By: #### MG, CMP, CBC #### [place] [address] USAWBC (Bld) [#/Vol]10.5 10*3/uLNormal4.1-10.5The [facility] Health Physician GroupComment on above:Performed By: #### MG, CMP, CBC #### [place] [address] USAComprehensive Metabolic Panelon 74-71-6220Dkwxqoa [Mass/Vol]3.2 g/dLLow3.5-5.7The [facility] Health Physician GroupComment on above: Performed By: #### MG, CMP, CBC #### [place] [address] USAAlbumin/Globulin [Mass ratio]1.0 {ratio}NormalThe Ecu Health Physician GroupComment on above:Performed By: #### MG, CMP, CBC #### [place] [address] USAALP [Catalytic activity/Vol]54 U/GCipeoe24-974Fzz [facility] Health Physician GroupComment on above:Performed By: #### MG, CMP, CBC #### [facility] [address] [place] [address] USAALT [Catalytic activity/Vol]36 U/LNormal7-52The [facility] Health Physician GroupComment on above:Performed By: #### MG, CMP, CBC #### [facility] [address] [place] [address] USAAnion gap [Moles/Vol]8.0 mmol/LNormal6.0-15.0The [facility] Health Physician GroupComment on above:Performed By: #### MG, CMP, CBC #### [facility] [address] [place] [address] USAAST [Catalytic activity/Vol]39 U/FJjriug96-17Trd [facility] Health Physician GroupComment on above:Performed By: #### MG, CMP, CBC #### [facility] [address] [place] [id number] USABilirubin [Mass/Vol]0.8 mg/dLNormal0.3-1.0The [facility] Health Physician GroupComment on above:Performed By: #### MG, CMP, CBC #### [facility] [address] [place] [address] USACalcium [Mass/Vol]8.3 mg/dLLow8.6-10.3The [facility] Health Physician GroupComment on above:Performed By: #### MG, CMP, CBC #### [facility] [address] [place] [address] USAChloride [Moles/Vol]94 mmol/YImu58-186Qgw [facility] Health Physician GroupComment on above:Performed By: #### MG, CMP, CBC #### [facility] [address] [place] [address] USACO2 [Moles/Vol]30.7 mmol/JQiozzj79.0-31.0The [facility] Health Physician GroupComment on above:Performed By: #### MG, CMP, CBC #### [facility] [address] [place] [address] USACreatinine [Mass/Vol]0.82 mg/dLNormal0.70-1.30The [facility] Health Physician GroupComment on above:Performed By: #### MG, CMP, CBC #### [facility] [address] [place] [address] USACreatinine Clr Calc Wgyycime949.70NoSelect [facility]ty Hospital [facility] Physician GroupComment on above:Performed By: #### MG, CMP, CBC #### [facility] [address] [place] [address] USAGFR/1.73 sq M.predicted MDRD (S/P/Bld) [Vol rate/Area] mL/min/{1.73_m2}NormalThe Ecu Health Physician GroupComment on above:Performed By: #### MG, CMP, CBC #### [facility] [address] [place] [address] USAGlobulin (S) [Mass/Vol]3.1 g/dLPalm Springs General Hospital Physician GroupComment on above:Performed By: #### MG, CMP, CBC #### [place] [address] USAGlucose [Mass/Vol]222 mg/dCInuh67-834Ykv [facility] Health Physician GroupComment on above:Result Comment: Random Glucose Reference Range is dependent on time and content of last meal. Glucose of more than 200 mg/dL in a nonstressed, ambulatory subject supports the diagnosis of Diabetes Mellitus. ADA recommended reference rangePerformed By: #### MG, CMP, CBC #### [place] [address] USAPotassium [Moles/Vol]3.7 mmol/LNormal3.5-5.1The [facility] Health Physician GroupComment on above:Performed By: #### MG, CMP, CBC #### [place] [address] USAProtein [Mass/Vol]6.3 g/dLLow6.4-8.9The [facility] Health Physician GroupComment on above:Performed By: #### MG, CMP, CBC #### [facility] [address] [place] [address] USASodium [Moles/Vol]129 mmol/XNnu594-227Jwb [facility] Health Physician GroupComment on above:Performed By: #### MG, CMP, CBC #### [facility] [address] [place] [address] USAUrea nitrogen [Mass/Vol]15 mg/dLNormal7-e [facility] Health Physician GroupComment on above:Performed By: #### MG, CMP, CBC #### [facility] [address] [place] [address] USADipstick and Microscopicon 88-57-4929Bmlfqschbs (U)Clear NormalClearThe Ecu Health Physician GroupComment on above:Order Comment: Name Collection Type:: Clean-Voided MidstreamPerformed By: #### MG, CMP, CBC #### [facility] [address] [place] [address] USABacteria,UrineRareNormalNone SeenBaptist Medical Center Physician GroupComment on above:Order Comment: Name Collection Type:: Clean-Voided MidstreamPerformed By: #### MG, CMP, CBC #### [facility] [address] [place] [address] USABilirubin,UrineNegativeNormalNegativeBaptist Medical Center Physician GroupComment on above:Order Comment: Name Collection Type:: Clean- Voided MidstreamPerformed By: #### MG, CMP, CBC #### [facility] [address] [place] [address] USAColor (U)YellowNormalYellowBaptist Medical Center Physician Group Comment on above:Order Comment: Name Collection Type:: Clean-Voided Midstream Performed By: #### MG, CMP, CBC #### [facility] [address] [place] [address] USAGlucose Ql (U)NormalNormalNormBayfront Health St. Petersburg Emergency Room Physician GroupComment on above:Order Comment: Name Collection Type:: Clean-Voided MidstreamPerformed By: #### MG, CMP, CBC #### [facility] [address] [place] [address] USAHyaline Casts,UrineNoneNormal0-8The [facility] Health Physician GroupComment on above:Order Comment: Name Collection Type:: Clean-Voided MidstreamPerformed By: #### MG, CMP, CBC #### [facility] [address] [place] [address] USAKetones Ql (U)NegativeNormalNegativeThe Ecu Health Physician GroupComment on above:Order Comment: Name Collection Type:: Clean- Voided MidstreamPerformed By: #### MG, CMP, CBC #### [place] [id number] USALeukocyte esterase Test strip Ql (U)NegativeNormalNegative The [facility]cu Health Physician GroupComment on above:Order Comment: Name Collection Type:: Clean-Voided MidstreamPerformed By: #### MG, CMP, CBC #### [place] [address] USAMucus,UrineRareNormalThe Ecu Health Physician GroupComment on above:Order Comment: Name Collection Type:: Clean-Voided MidstreamResult Comment: PERFORMED BY: [place] [address] PATHOLOGIST [employer]BACK TRIMMER WICHO EVERETT M.D.Performed By: #### MG, CMP, CBC #### [place] [address] USANitrite,UrineNegativeNormalNegativeThe Ecu Health Physician GroupComment on above:Order Comment: Name Collection Type:: Clean-Voided MidstreamPerformed By: #### MG, CMP, CBC #### [place] [address] USAOccult Blood,Urine1+HighNegativeThe Ecu Health Physician GroupComment on above:Order Comment: Name Collection Type:: Clean-Voided MidstreamResult Comment: PERFORMED BY: [place] [address] PATHOLOGIST [employer]BACK TRIMMER WICHO EVERETT M.D.Performed By: #### MG, CMP, CBC #### [place] [address] USApH (U)6.0 [pH]Normal5.0-9.0The [facility] Comment on above:Order Comment: Name Collection Type:: Clean-Voided Midstream Performed By: #### MG, CMP, CBC #### [place] [address] USAProtein (U) [Mass/Vol]50 mg/dLHighNegativeThe [facility]cu Health Physician GroupComment on above:Order Comment: Name Collection Type:: Clean- Voided MidstreamPerformed By: #### MG, CMP, CBC #### [place] [address] USARBC,Urine1 [HPF]Normal0-4The [facility] Comment on above:Order Comment: Name Collection Type:: Clean-Voided Midstream Performed By: #### MG, CMP, CBC #### [place] [address] USASpecificy Wesley,Urine1.430Wqfs2.001-1.030The [facility] Health Physician GroupComment on above:Order Comment: Name Collection Type:: Clean- Voided MidstreamPerformed By: #### MG, CMP, CBC #### [place] [address] USASquamous Epithelial Cell,Urine1 [HPF]Normal0-2The [facility] Health Physician GroupComment on above:Order Comment: Name Collection Type:: Clean-Voided MidstreamPerformed By: #### MG, CMP, CBC #### [place] [address] USAUrobilinogen,UrineNormalNormalNormalThe [facility] Health Physician GroupComment on above:Order Comment: Name Collection Type:: Clean- Voided MidstreamPerformed By: #### MG, CMP, CBC #### [place] [address] USAWBC,Urine5 [HPF]High0-4The [facility] Comment on above:Order Comment: Name Collection Type:: Clean-Voided Midstream Performed By: #### MG, CMP, CBC #### [place] [address] USAEosinophils Auto (Bld) [#/Vol]Ordered By: Gomez Sunshine on 94-96-1138Cztgrabuijc (Bld) [#/Vol]Automated eosinophil count0.0-0.45[facility] TroyEosinophils/100 WBC Auto (Bld)Ordered By: Gomez Sunshine on 86-05-6349Doviwympijt/100 WBC (Bld)Automated eosinophil %.[facility] TroyEpithelial cells.squamous [#/area] in Urine sediment by Automated countOrdered By: Gomez Sunshine on 58-70-7194Xdlutbojsc cells.squamous Auto (Urine sed) [#/Area]Epithelial cells.squamous [#/area] in Urine sediment by Automated count0-2FKettering HealthErythrocyte distribution width Auto (RBC) [Ratio]Ordered By: Gomez Sunshine on 25-37-6981Oxxogsioavb distribution width (RBC) [Ratio]Erythrocyte distribution width [Ratio] by Automated count12.0-14.8[facility] TroyErythrocytes [#/area] in Urine sediment by Automated countOrdered By: Gomez Sunshine on 63-19-1379KIO Auto (Urine sed) [#/Area]Erythrocytes [#/area] in Urine sediment by Automated count0-4FKettering HealthGlobulin Calc (S) [Mass/Vol]Ordered By: Gomez Sunshine on 65-58-2944Hldjdrrk (S) [Mass/Vol]Serum globulin measurement by calculation (mass/volume)[facility] TroyGlucose Poct Glucometerson 09-37-2398Pnudptf [Mass/Vol]267 mg/dLPalm Springs General Hospital Physician GroupComment on above:Result Comment: Random Glucose Reference Range is dependent on time and content of last meal. Glucose of more than 200 mg/dL in a nonstressed, ambulatory subject supports the diagnosis of Diabetes Mellitus. PERFORMED BY: [address] [place] [id number] PATHOLOGIST [employer]BACK TRIMMER WICHO EVERETT M.D.Performed By: #### GLULS #### Point of Care testing ,Djrtmhv4Tkh7: Cleaned MeterNoSelect Specialty Hospital [facility] Greensboro Physician GroupComment on above: Result Comment: PERFORMED BY: [address] [place] [id number] PATHOLOGIST FATBACK TRIMMER MOHAMED M EL-FAKHARANY M.D.Performed By: #### MG, CMP, CBC #### [place] [address] USAGlucose [Mass/Vol]232 mg/dLNoSelect Specialty [facility] Physician GroupComment on above:Result Comment: Random Glucose Reference Range is dependent on time and content of last meal. Glucose of more than 200 mg/dL in a nonstressed, ambulatory subject supports the diagnosis of Diabetes Mellitus.Performed By: #### MG, CMP, CBC #### [place] [address] USAGlucose [Mass/Vol]259 mg/dLNoSelect Specialty Hospital [facility] Physician GroupComment on above:Result Comment: Random Glucose Reference Range is dependent on time and content of last meal. Glucose of more than 200 mg/dL in a nonstressed, ambulatory subject supports the diagnosis of Diabetes Mellitus. PERFORMED BY: [place] [address] PATHOLOGIST [employer]BACK TRIMMER WICHO EVERETT M.D.Performed By: #### GLULS #### Point of Care testing ,Glucose [Mass/Vol]240 mg/dLNoSelect Specialty [facility] Physician GroupComment on above: Result Comment: Random Glucose Reference Range is dependent on time and content of last meal. Glucose of more than 200 mg/dL in a nonstressed, ambulatory subject supports the diagnosis of Diabetes Mellitus. PERFORMED BY: [place] [address] PATHOLOGIST [employer]BACK TRIMMER WICHO EVERETT M.D.Performed By: #### MG, CMP, CBC #### [place] [address] USAGlucose [Mass/volume] in Urine by Test stripOrdered By: Gomez Sunshine on 48-93-0915Lxtnqyw Test strip (U) [Mass/Vol]Glucose [Mass/volume] in Urine by Test stripOhioHealth Nelsonville Health Center Hematocrit Auto (Bld) [Volume fraction]Ordered By: Gomez Sunshine on 03-10-2024 Hematocrit (Bld) [Volume fraction]Hematocrit [Volume Fraction] of Blood by Automated ednmfBot70.8-50.0[facility] TroyHemoglobin Test strip Ql (U)Ordered By: Gomez Sunshine on 87-36-4228Rvgjvcgmxa Ql (U)Hemoglobin [Presence] in Urine by Test stripHighNegativeKettering Health Troy Hemoglobin [Mass/volume] in BloodOrdered By: Gomez Sunshine on 03-10-2024 Hemoglobin (Bld) [Mass/Vol]Hemoglobin [Mass/volume] in GcmyxZer73.0-17.0 [facility] TroyHyaline casts [#/area] in Urine sediment by Automated countOrdered By: Gomez Sunshine on 77-25-4770Tysnhhw casts Auto (Urine sed) [#/Area]Hyaline casts [#/area] in Urine sediment by Automated count0-8 [facility] TroyKetones Test strip Ql (U)Ordered By: Gomez Sunshine on 21-01-3554Qaiwrbs Ql (U)Ketones [Presence] in Urine by Test strip NegativeKettering Health TroyLeukocyte esterase [Presence] in Urine by Test stripOrdered By: Gomez Sunshine on 94-65-2129Twznqgykj esterase Test strip Ql (U)Leukocyte esterase [Presence] in Urine by Test stripNegative [facility] TroyLeukocytes [#/area] in Urine sediment by Automated countOrdered By: Gomez Sunshine on 95-97-5932XSM Auto (Urine sed) [#/Area]Leukocytes [#/area] in Urine sediment by Automated countHigh04FKettering HealthLeukocytes [#/volume] corrected for nucleated erythrocytes in Blood by Automated counOrdered By: Gomez Sunshine on 03-10-2024 WBC corrected for nucl RBC Auto (Bld) [#/Vol]Leukocytes [#/volume] corrected for nucleated erythrocytes in Blood by Automated coun4.1-10.5FKettering HealthLymphocytes Auto (Bld) [#/Vol]Ordered By: Gomez Sunshine on 50-09-6566Lwihxvqtxta (Bld) [#/Vol]Lymphocytes [#/volume] in Blood by Automated countLow1.00-4.8[facility] TroyLymphocytes/100 WBC Auto (Bld) Ordered By: Gomez Sunshine on 60-06-2097Imguihhjvff/100 WBC (Bld)Lymphocytes/100 leukocytes in Blood by Automated count.[facility] SystemH Auto (RBC) [Entitic mass]Ordered By: Gomez Sunshine on 20-11-5611MKE (RBC) [Entitic mass]MCH [Entitic mass] by Automated count27.5-35.2FUniversity Hospitals Beachwood Medical CenterHC Auto (RBC) [Mass/Vol]Ordered By: Gomez Sunshine on 50-46-6738WOSB (RBC) [Mass/Vol]MCHC [Mass/volume] by Automated count32.5-35.6FKettering HealthMCV Auto (RBC) [Entitic vol]Ordered By: Gomez Sunshine on 06-78-5253YQD (RBC) [Entitic vol]MCV [Entitic volume] by Automated count83.5-101 [facility] TroyMagnesiumon 95-89-8215Kuiwebdqa [Mass/Vol]1.9 mg/dLNormal1.9-2.7The [facility] Health Physician GroupComment on above:Result Comment: PERFORMED BY: [place] [address] PATHOLOGIST FATBACK TRIMMER WICHO EVERETT M.D.Performed By: #### MG, CMP, CBC #### [place] [address] USAMagnesium [Mass/volume] in Serum or PlasmaOrdered By: Gomez Sunshine on 96-86-4852Nicnjfaya [Mass/Vol]Magnesium [Mass/volume] in Serum or Plasma1.9-2.7FKettering HealthMonocytes Auto (Bld) [#/Vol] Ordered By: Gomez Sunshine on 52-73-9671Wkpxboyxr (Bld) [#/Vol]Automated blood monocyte countHigh0.0-0.8[facility] TroyMonocytes/100 WBC Auto (Bld)Ordered By: Gomez Sunshine on 76-08-4104Wwarxxbkg/100 WBC (Bld)Automated monocyte %.[facility] TroyMucus [Presence] in Urine by AutomatedOrdered By: Gomez Sunshine on 70-00-2359Nncji Auto Ql (U)Mucus [Presence] in Urine by AutomatedKettering Health TroyNeutrophils Auto (Bld) [#/Vol]Ordered By: Gomez Sunshine on 30-50-5284Nbabfzpjmrm (Bld) [#/Vol]Neutrophils [#/volume] in Blood by Automated countHigh1.8-7.7FKettering HealthNeutrophils/100 WBC Auto (Bld)Ordered By: Gomez Sunshine on 65-64-4813Gufgnvxjjqe/100 WBC (Bld)Automated neutrophil %.[facility] TroyNitrite Test strip Ql (U)Ordered By: Gomez Susnhine on 03-10-2024 Nitrite Ql (U)Nitrite [Presence] in Urine by Test stripNegOhioHealth Arthur G.H. Bing, MD, Cancer CenterNucleated erythrocytes [Presence] in Blood by Automated countOrdered By: Gomez Sunshine on 87-58-0613Kzidkatol RBC Auto Ql (Bld)Nucleated erythrocytes [Presence] in Blood by Automated count0-0.5FKettering HealthPlatelet mean volume Auto (Bld) [Entitic vol]Ordered By: Gomez Sunshine on 37-46-7201Gagakktv mean volume (Bld) [Entitic vol]Platelet mean volume [Entitic volume] in Blood by Automated count6.6-10.1FKettering HealthPlatelets Auto (Bld) [#/Vol]Ordered By: Gomez Sunshine on 66-27-7451Zetbhvsab (Bld) [#/Vol]Platelets [#/volume] in Blood by Automated rczgy047-647GdccmvbfsKettering Health TroyProtein Test strip (U) [Mass/Vol] Ordered By: Gomez Sunshine on 89-23-8287Lxisqac (U) [Mass/Vol]Protein [Mass/volume] in Urine by Test stripHighNegOhioHealth Arthur G.H. Bing, MD, Cancer CenterProtein [Mass/volume] in Serum or PlasmaOrdered By: Gomez Sunshine on 70-34-6542Uuwuhjb [Mass/Vol]Protein [Mass/volume] in Serum or PlasmaLow6.4-8.9 [facility] TroyRBC Auto (Bld) [#/Vol]Ordered By: Gomez Snushine on 32-05-6430CIL (Bld) [#/Vol]Erythrocytes [#/volume] in Blood by Automated countLow3.90-5.60Mercy Healtherum or plasma albumin/globulin mass ratioOrdered By: Gomez Sunshine on 03-10-2024 Albumin/Globulin [Mass ratio]Serum or plasma albumin/globulin mass ratio Mercy Healthpecific gravity Test strip (U) [Rel density] Ordered By: Gomez Sunshine on 18-74-2308Guxrqtkh gravity (U) [Rel density] Specific gravity of Urine by Test stripHigh1.001-1.030[facility] TroyUrobilinogen Test strip (U) [Mass/Vol]Ordered By: Gomez Sunshine on 12-05-9100Gbzpfobfqbln (U) [Mass/Vol]Urobilinogen [Mass/volume] in Urine by Test stripNormalKettering Health TroyVancomycin [Mass/volume] in Serum or Plasma --peakOrdered By: Gomez Sunshine on 92-31-0691Rcddvtshti peak [Mass/Vol]Vancomycin [Mass/volume] in Serum or Plasma --peak20.0-40.0[facility] TroyComment on above:Last dose: -Vancomycin,Peakon 03-10-2024 Vancomycin,Peak22.6 ug/xQMmrpkv64.0-40.0The [facility] Health Physician GroupComment on above:Order Comment: Comment ?DRAW 1 HOUR AFTER INFUSION COMPLETES Date of last dose?: 20240310 Time of last dose?: 2099Result Comment: Last dose: - PERFORMED BY: [place] [address] PATHOLOGIST FATBACK TRIMMER WICHO EVERETT M.D.Performed By: #### MG, CMP, CBC #### [place] [address] USAWBC Auto (Bld) [#/Vol]Ordered By: Gomez Sunshine on 31-06-8379NEX (Bld) [#/Vol]Leukocytes [#/volume] in Blood by Automated count 4.1-10.5FKettering HealthpH Test strip (U)Ordered By: Gomez Sunshine on 66-86-3538eU (U)pH of Urine by Test strip5.0-9.0[facility] TroyA1C with Estimated Average Gluon 80-01-7492Iqoejvb [Mass/Vol]192 mg/dLNormalThe [facility]cu Health Physician GroupComment on above:Result Comment: PERFORMED BY: [facility] [address] [place] [id number] PATHOLOGIST FATBACK TRIMMER WICHO EVERETT M.D.Performed By: #### CBC, A1C WTH eA, MG, ESR, CRP, CUBLD, PTT, PT, BMP ####[facility] [address] [place] [id number] LSBVgU8g (Bld) [Mass fraction]8.3 %High4.3-5.6The [facility] Health Physician GroupComment on above:Result Comment: Increased risk for diabetes: 5.7 - 6.4 diabetes: >6.4 glycemic control for adults with diabetes: <7.0Performed By: #### CBC, A1C WTH eA, MG, ESR, CRP, CUBLD, PTT, PT, BMP ####[facility] [address] [place] [id number] USABasic Metabolic Panelon 78-72-5413Utjzc gap [Moles/Vol]10.8 mmol/LNormal6.0-15.0The [facility] Health Physician GroupComment on above:Performed By: #### MG, CMP, CBC #### [facility] [address] [place] [address] USACalcium [Mass/Vol]8.4 mg/dLLow8.6-10.3The [facility] Physician GroupComment on above:Performed By: #### MG, CMP, CBC #### [facility] [address] [place] [address] USAChloride [Moles/Vol]94 mmol/EWot33-182Gco [facility] Physician GroupComment on above:Performed By: #### MG, CMP, CBC #### [facility] [address] [place] [id number] USACO2 [Moles/Vol]29.4 mmol/QCtbepb51.0-31.0The [facility] Physician GroupComment on above:Performed By: #### MG, CMP, CBC #### [facility] [address] [place] [address] USACreatinine [Mass/Vol]0.84 mg/dLNormal0.70-1.30The [facility] Health Physician GroupComment on above:Performed By: #### MG, CMP, CBC #### [facility] [address] [place] [address] USACreatinine Clr Calc Gadcgiiq058.63NormalThe [facility] Health Physician GroupComment on above:Performed By: #### MG, CMP, CBC #### [place] [address] USAGFR/1.73 sq M.predicted MDRD (S/P/Bld) [Vol rate/Area] mL/min/{1.73_m2}NormalThe [facility] Health Physician GroupComment on above:Performed By: #### MG, CMP, CBC #### [place] [address] USAGlucose [Mass/Vol]185 mg/fTYkvl45-012Poz [facility] Physician GroupComment on above:Result Comment: Random Glucose Reference Range is dependent on time and content of last meal. Glucose of more than 200 mg/dL in a nonstressed, ambulatory subject supports the diagnosis of Diabetes Mellitus. ADA recommended reference rangePerformed By: #### MG, CMP, CBC #### [place] [address] USAPotassium [Moles/Vol]3.2 mmol/LLow3.5-5.1The [facility] Physician GroupComment on above:Performed By: #### MG, CMP, CBC #### [facility] [address] [place] [address] USASodium [Moles/Vol]131 mmol/WFtl846-633Oxf [facility] Physician GroupComment on above:Performed By: #### MG, CMP, CBC #### [facility] [address] [place] [address] USAUrea nitrogen [Mass/Vol]15 mg/dLNormal7-25The [facility] Physician GroupComment on above:Performed By: #### MG, CMP, CBC #### [facility] [address] [place] [address] USAAnion gap [Moles/Vol]11.4 mmol/LNormal6.0-15.0The [facility] Physician GroupComment on above:Performed By: #### MG, CMP, CBC #### [place] [address] USACalcium [Mass/Vol]8.4 mg/dLLow8.6-10.3The [facility] Physician GroupComment on above:Performed By: #### MG, CMP, CBC #### [place] [address] USAChloride [Moles/Vol]94 mmol/WTxw39-586Ozu [facility] Physician GroupComment on above:Performed By: #### MG, CMP, CBC #### [place] [address] USACO2 [Moles/Vol]29.2 mmol/SMaouno64.0-31.0The [facility] Physician GroupComment on above:Performed By: #### MG, CMP, CBC #### [place] [address] USACreatinine [Mass/Vol]0.86 mg/dLNormal0.70-1.30The [facility] Physician GroupComment on above:Performed By: #### MG, CMP, CBC #### [place] [address] USACreatinine Clr Calc Dfnrjmca594.76NormBayfront Health St. Petersburg Emergency Room Physician GroupComment on above:Result Comment: PERFORMED BY: [place] [address] PATHOLOGIST FATBACK TRIMMER WICHO EVERETT M.D.Performed By: #### MG, CMP, CBC #### [place] [address] USAGFR/1.73 sq M.predicted MDRD (S/P/Bld) [Vol rate/Area] mL/min/{1.73_m2}NormalThe [facility] Health Physician GroupComment on above:Performed By: #### MG, CMP, CBC #### [facility] [address] [place] [address] USAGlucose [Mass/Vol]196 mg/jBJpre04-605Ume [facility] Physician GroupComment on above:Result Comment: Random Glucose Reference Range is dependent on time and content of last meal. Glucose of more than 200 mg/dL in a nonstressed, ambulatory subject supports the diagnosis of Diabetes Mellitus. ADA recommended reference rangePerformed By: #### MG, CMP, CBC #### [facility] [address] [place] [address] USAPotassium [Moles/Vol]3.6 mmol/LNormal3.5-5.1The Ecu Health Physician GroupComment on above:Result Comment: Hemolysis is present at a level that could interfere with the result. Contact lab if redraw is requiredPerformed By: #### MG, CMP, CBC #### [facility] [address] [place] [address] USASodium [Moles/Vol]131 mmol/JCjj223-032Pca Ecu Health Physician GroupComment on above:Performed By: #### MG, CMP, CBC #### [facility] [address] [place] [address] USAUrea nitrogen [Mass/Vol]16 mg/dLNormal7-25The Ecu Health Physician GroupComment on above:Performed By: #### MG, CMP, CBC #### [facility] [address] [place] [address] USABlood Cultureon 90-45-7283Oauqjglh identified Cx Nom (Bld) NO GROWTH 5 DAYS PERFORMED BY: [place] [address] PATHOLOGIST FATBACK TRIMMER WICHO EVERETT M.D.NormalThe Ecu Health Physician GroupComment on above: Performed By: #### CBC, A1C WTH eA, MG, ESR, CRP, CUBLD, PTT, PT, BMP ####[facility] [address] [place] [address] [place] Bacteria identified Cx Nom (Bld)NO GROWTH 5 DAYS PERFORMED BY: [address] [address] PATHOLOGIST FATBACK TRIMMER WICHO EVERETT M.D.NormalBaptist Medical Center Physician GroupComment on above: Performed By: #### CBC, A1C WTH eA, MG, ESR, CRP, CUBLD, PTT, PT, BMP ####[place] [address] [place] [address] USABlood estimated average glucose determination by estimation from glycated hemoglobin Ordered By: Yecenia Meléndez on 22-27-9876Gmibyis glucose Estimated from glycated hemoglobin (Bld) [Mass/Vol]Glucose mean value [Mass/volume] in Blood Estimated from glycated hemoglobinKettering Health TroyC reactive protein [Mass/volume] in Serum or PlasmaOrdered By: Yecenia Meléndez on 12-43-1649GSZ [Mass/Vol]C reactive protein [Mass/volume] in Serum or PlasmaHigh0.0-0.5 [facility] TroyC-Reactive Proteinon 33-94-1353X-Reactive Eotzhrr17.1 mg/dLHigh0.0-0.5The [facility] Physician [facility] Stennis Memorial HospitalComment on above:Result Comment: PERFORMED BY: [address] [address] PATHOLOGIST FATBACK TRIMMER WICHO EVERETT M.D.Performed By: #### CBC, A1C WTH eA, MG, ESR, CRP, CUBLD, PTT, PT, BMP ####[address] [place] [address] USACT lower leg LT w conon 21-47-2984QT lower leg LT w [facility] Main [address] [address] [address] Scan Report Signed Patient: Juan Bean JR MR#: [id number] : 1965 Acct:[id number] Age/Sex: 59 / M ADM Date: 03/08/24 Loc: Room: [address] [place] [address] Type: ADM IN Attending Dr: Gomez Sunshine [...] Tyrese Coon M.D.03/09/2024 7:51 PM Dictation Location: [place] [address] Transcribed By: [facility] 03/09/241950 Dictated By: Tyrese Coon II, MD 03/09/241943 Signed By: 03/09/241950NoSelect [facility] Physician GroupComplete Blood Count Auto Diffon 75-50-6407Uiqubccns (Bld) [#/Vol]0.1 10*3/uLNormal0.0-0.2[facility] Physician GroupComment on above:Performed By: #### CBC, A1C WTH eA, MG, ESR, CRP, CUBLD, PTT, PT, BMP ####[place] [address] USABasophils/100 WBC (Bld)0.5 %Normal.The Ecu Health Physician GroupComment on above:Performed By: #### CBC, A1C WTH eA, MG, ESR, CRP, CUBLD, PTT, PT, BMP ####[place] [address] USAEosinophils (Bld) [#/Vol]0.0 10*3/uLNormal0.0-0.45 The Ecu Health Physician GroupComment on above:Performed By: #### CBC, A1C WTH eA, MG, ESR, CRP, CUBLD, PTT, PT, BMP ####[place] [address] USAEosinophils/100 WBC (Bld)0.0 %Normal.The Ecu Health Physician GroupComment on above:Performed By: #### CBC, A1C WTH eA, MG, ESR, CRP, CUBLD, PTT, PT, BMP ####[place] [address] USAErythrocyte distribution width (RBC) [Ratio]14.0 % Hdzjva06.0-14.8The Ecu Health Physician GroupComment on above:Performed By: #### CBC, A1C WTH eA, MG, ESR, CRP, CUBLD, PTT, PT, BMP ####[place] [address] USAHematocrit (Bld) [Volume fraction]33.6 %Low38.8-50.0The Ecu Health Physician GroupComment on above: Performed By: #### CBC, A1C WTH eA, MG, ESR, CRP, CUBLD, PTT, PT, BMP ####[address] Hemoglobin (Bld) [Mass/Vol]11.4 g/dLLow13.0-17.0The [facility] Comment on above:Performed By: #### CBC, A1C WTH eA, MG, ESR, CRP, CUBLD, PTT, PT, BMP ####[place] [address] USALymphocytes (Bld) [#/Vol]0.8 10*3/uLLow1.00-4.8The [facility] Comment on above:Performed By: #### CBC, A1C WTH eA, MG, ESR, CRP, CUBLD, PTT, PT, BMP ####[place] [address] USALymphocytes/100 WBC (Bld)5.7 %Normal.The Ecu Health Physician GroupComment on above:Performed By: #### CBC, A1C WTH eA, MG, ESR, CRP, CUBLD, PTT, PT, BMP ####[address] StreetH (RBC) [Entitic mass]31.0 ytVeanen17.5-35.2The Ecu Health Physician GroupComment on above:Performed By: #### CBC, A1C WTH eA, MG, ESR, CRP, CUBLD, PTT, PT, BMP ####[address] StreetMCV (RBC) [Entitic vol]91.5 zRLkhsjq35.5-101The Ecu Health Physician GroupComment on above:Performed By: #### CBC, A1C WTH eA, MG, ESR, CRP, CUBLD, PTT, PT, BMP ####[place] [address] USAMean Corpuscular HGB Conc33.8 g/lXQrrhdq46.5-35.6The Ecu Health Physician GroupComment on above:Performed By: #### CBC, A1C WTH eA, MG, ESR, CRP, CUBLD, PTT, PT, BMP ####[place] [address] [place] Monocytes (Bld) [#/Vol]0.6 10*3/uLNormal0.0-0.8The [facility] Comment on above:Performed By: #### CBC, A1C WTH eA, MG, ESR, CRP, CUBLD, PTT, PT, BMP ####[place] [address] USAMonocytes/100 WBC (Bld)4.5 %Normal.The Ecu Health Physician GroupComment on above:Performed By: #### CBC, A1C WTH eA, MG, ESR, CRP, CUBLD, PTT, PT, BMP ####[address] Neutrophils (Bld) [#/Vol]12.4 10*3/uLHigh1.8-7.7The [facility] Group Comment on above:Performed By: #### CBC, A1C WTH eA, MG, ESR, CRP, CUBLD, PTT, PT, BMP ####[place] [address] USANeutrophils/100 WBC (Bld)89.3 %Normal.The Ecu Health Physician GroupComment on above:Performed By: #### CBC, A1C WTH eA, MG, ESR, CRP, CUBLD, PTT, PT, BMP ####[place] [address] USANRBC% 0.3 /100{WBC}Normal0-0.5The Ecu Health Physician GroupComment on above:Performed By: #### CBC, A1C WTH eA, MG, ESR, CRP, CUBLD, PTT, PT, BMP ####[place] [address] USAPlatelet mean volume (Bld) [Entitic vol]8.0 fLNormal6.6-10.1The Ecu Health Physician GroupComment on above:Performed By: #### CBC, A1C WTH eA, MG, ESR, CRP, CUBLD, PTT, PT, BMP ####[place] [address] [place] Platelets (Bld) [#/Vol]196 10*3/nOXaoroy042-257Mtj [facility]ician Group Comment on above:Performed By: #### CBC, A1C WTH eA, MG, ESR, CRP, CUBLD, PTT, PT, BMP ####[address] [place] [address] USARBC (Bld) [#/Vol]3.67 10*6/uLLow3.90-5.60The Ecu Health Physician GroupComment on above:Performed By: #### CBC, A1C WTH eA, MG, ESR, CRP, CUBLD, PTT, PT, BMP ####[address] [address] USAWBC (Bld) [#/Vol]13.9 10*3/uLHigh4.1-10.5The Ecu Health Physician GroupComment on above:Performed By: #### CBC, A1C WTH eA, MG, ESR, CRP, CUBLD, PTT, PT, BMP ####[address] [address] [facility] Erythrocyte Sedimentation Rateon 08-32-7591GYC (Bld) [Velocity]67 mm/hHigh0-19 The Ecu Health Physician GroupComment on above:Result Comment: PERFORMED BY: [facility] [address] [facility] [place] [address] PATHOLOGIST FATBACK TRIMMER WICHO EVERETT M.D.Performed By: #### CBC, A1C WTH eA, MG, ESR, CRP, CUBLD, PTT, PT, BMP ####[address] [address] [facility] MEXICOErythrocyte sedimentation rate by Photometric methodOrdered By: Yecenia Meléndez on 86-64-1644OLQ Photometric method (Bld) [Velocity]Erythrocyte sedimentation rate by Photometric methodHigh0-19Kettering Health TroyGlucose Poct Glucometerson 68-51-4157Ywlrfcz [Mass/Vol]212 mg/dLNormalThe Ecu Health Physician GroupComment on above:Result Comment: Random Glucose Reference Range is dependent on time and content of last meal. Glucose of more than 200 mg/dL in a nonstressed, ambulatory subject supports the diagnosis of Diabetes Mellitus. PERFORMED BY: [facility] [address] [place] [id number] PATHOLOGIST FATBACK TRIMMER WICHO EVERETT M.D.Performed By: #### MG, CMP, CBC #### [facility] [address] [place], [place] [address] USAGlucose [Mass/Vol]328 mg/dLNoSelect Specialty Hospital - Greensboro Physician GroupComment on above:Result Comment: Random Glucose Reference Range is dependent on time and content of last meal. Glucose of more than 200 mg/dL in a nonstressed, ambulatory subject supports the diagnosis of Diabetes Mellitus. PERFORMED BY: [place] [address] PATHOLOGIST FATBACK TRIMMER WICHO EVERETT M.D.Performed By: #### GLULS #### Point of Care testing ,Glucose [Mass/Vol]240 mg/dLNoSelect Specialty Hospital - Greensboro Physician GroupComment on above: Result Comment: Random Glucose Reference Range is dependent on time and content of last meal. Glucose of more than 200 mg/dL in a nonstressed, ambulatory subject supports the diagnosis of Diabetes Mellitus. PERFORMED BY: [place] [address] PATHOLOGIST FATBACK TRIMMER WICHO EVERETT M.D.Performed By: #### MG, CMP, CBC #### [address] [address] USAGlucose [Mass/Vol]242 mg/dLNoSelect Specialty Hospital - Greens[facility] Physician GroupComment on above:Result Comment: Random Glucose Reference Range is dependent on time and content of last meal. Glucose of more than 200 mg/dL in a nonstressed, ambulatory subject supports the diagnosis of Diabetes Mellitus. PERFORMED BY: [place] [id number] PATHOLOGIST FATBACK TRIMMER WICHO EVERETT M.D.Performed By: #### GLULS #### Point of Care testing ,Hemoglobin A1c/Hemoglobin.total in BloodOrdered By: Yecenia Meléndez on 03-09-2024 HbA1c (Bld) [Mass fraction]Hemoglobin A1c percentageHigh4.3-5.6FKettering HealthComment on above:Increased risk for diabetes: 5.7 - 6.4diabetes: >6.4glycemic control for adults with diabetes: <7.0INR in Platelet poor plasma by Coagulation assayOrdered By: Yecenia Meléndez on 03-09-2024 INR Coag (PPP) [Relative time]INR in Platelet poor plasma by Coagulation assay [facility]tering Health TroyComment on above:INR Therapeutic Range A) Pre- and [...] and Antimicrobial susceptibilityOrdered By: Yecenia Meléndez on 09-38-7232Zbknvsrx identified Cx Nom (Bld)NO GROWTH 5 DAYSKettering Health TroyBacteria identified Cx Nom (Bld)NO GROWTH 5 DAYSKettering Health Troy Magnesiumon 72-08-8496Sdsgobift [Mass/Vol]1.4 mg/dLLow1.9-2.7The Ecu Health Physician GroupComment on above:Performed By: #### CBC, A1C WTH eA, MG, ESR, CRP, CUBLD, PTT, PT, BMP ####[facility] [address] [place] [address] USAPartial Thromboplastin Timeon 86-07-9684cJVD Coag (Bld) [Time]36.5 qOgmppj90.1-36.5The Ecu Health Physician GroupComment on above: Result Comment: A hematocrit value greater than 55% may lead to inaccurate results in coagulation testing. Patients having hematocrit values >55% require a special collection tube for coagulation studies. Please contact the laboratory at [phone] for redraw instructions. PERFORMED BY: [facility] [address] [place] [place] [address] PATHOLOGIST FATBACK TRIMMER WICHO EVERETT M.D.Performed By: #### MG, CMP, CBC #### [facility] [address] [place] [address] USAPhosphoruson 13-07-0488Inucnoolk [Mass/Vol]1.9 mg/dLLow 2.5-4.5The Ecu Health Physician GroupComment on above:Order Comment: Comment Please add to AM labsResult Comment: PERFORMED BY: [address] [address] PATHOLOGIST FATBACK TRIMMER WICHO EVERETT M.D.Performed By: #### MG, CMP, CBC #### [facility] [address] [place] [address] USAProthrombin Time INRon 53-48-5967JDJ Coag (PPP) [Relative time]1.2 {INR}NormalThe [facility] Physician [facility] Stennis Memorial HospitalComment on above:Result Comment: INR Therapeutic Range A) [...] 4.5Performed By: #### MG, CMP, CBC #### [address] [address] USAPT Coag (PPP) [Time]14.3 sHigh9.0-12.9The [facility] Physician [facility] Stennis Memorial HospitalComment on above:Result Comment: A hematocrit value greater than 55% may lead to inaccurate results in coagulation testing. Patients having hematocrit values >55% require a special collection tube for coagulation studies. Please contact the laboratory at [phone] for redraw instructions.Performed By: #### MG, CMP, CBC #### [address] [address] USAProthrombin time (PT)Ordered By: Yecenia Meléndez on 03-09-2024 PT Coag (PPP) [Time]Prothrombin time (PT)High9.0-12.9K[facility]tering Health TroyComment on above:A hematocrit value greater than 55% may lead to inaccurate results in coagulation testing. Patientshaving hematocrit values >55% require a special collection tube for coagulation studies. Please contact the laboratory at [phone] for redraw instructions.aPTT in Platelet poor plasma by Coagulation assayOrdered By: Yecenia Meléndez on 35-11-7905jBKB Coag (PPP) [Time] Activated partial thromboplastin time (aPTT) in platelet poor plasma by coagulation a25.1-36.5FKettering HealthComment on above:A hematocrit value greater than 55% may lead to inaccurate results in coagulation testing. Patientshaving hematocrit values >55% require a special collection tube for coagulation studies. Please contact the laboratory at [phone] for redraw instructions.Blood Cultureon 61-15-0459Booskkuz identified Cx Nom (Bld) Gram Stain Gram Positive Cocci in Chains ORGANISM: Strep dysgalactiae (O:STRDYS) Aerobic Miguel A Charge (Strep) SUSCEPTIBILITY ORGANISM: O:STRDYS ANTIBIOTIC INTERPRETATION MIGUEL A Ampicillin S <0.06 [...] RESISTANT TO ALL B-LACTAM DRUGS. PERFORMED BY: [place] [address] PATHOLOGIST FATBACK TRIMMER WICHO EVERETT M.D.NormalThe Ecu Health Physician GroupComment on above: Performed By: #### MG, CMP, CBC #### [place] [address] USABacteria identified Cx Nom (Bld)[employer] BCID Panel results [...] <4 Tobramycin S <2 Trimethoprim/Sulfamethoxazole S <0.5 [employer] BCID Panel results called at 1601 on [...] Not detected Streptococcus pneumoniae - reported at IS Not detected Proteus sp DNA [Presence] by [...] culture Not detected Group A (Streptococcus pyogenes) [id number] Not detected Group B Strep (Streptococcus agalactiae) [...] or Specimen by Molecular (more contentnot included)...NormalThe [facility] Physician Group Comment on above:Performed By: #### MG, CMP, CBC #### [facility] [address] [place] [address] USALaboratory - Microbiology and Antimicrobial susceptibility Ordered By: Mike Phelan on 30-24-5499Dostxyxq identified Cx Nom (Bld)Escherichia coliAbnormJ.W. Ruby Memorial HospitalBacteria identified Cx Nom (Bld) AbnormalKettering Health TroyNo Panel InformationOrdered By: Mike Phelan on 71-56-4066Nzgpkwcia ID (NA Multiplex Assay)[facility] TroyBacterial ID (NA Multiplex Assay)[facility] Laboratory - Hematology and Cell countson 77-80-5419CdQ1i (Bld) [Mass fraction] 7.3 %NOMS HealthcareNo Panel Informationon 65-32-6448Xdjnxukdlubovk and review of laboratory resultsAbKarmanos Cancer Center HealthcarePre-Certification Formon 33-96-2914Ebv-Certification Form [id number]#1.00CD:[address] [place], [place] [address]RAD - CT Reporton 14-22-3468RAI - CT Report [id number]#1.00CD:[address] [place], [place] [address]Consultation Noteon 81-43-4781Ojahnkbironu Note [id number]#1.00CD:[address] [place], [place] [address]CNPNon 05-75-7705JDOUYnffbukgf (UROLMN) JUAN BEAN ([id number]) 1965 M Date Time Provider Department 08/19/22 [...] of 45.0-49.9, adult (HC*07/12/2022 Encounter Status:Closed by VÍTCOR ROSALES on 08/19/22[facility] POSTPROC EVALon 24-50-4117WCIT POSTPROC EVALHNO ID: [id number] Author: Brennan Henley MD Service: ? Author Type: Anesthesiologist Type: Anesthesia Postprocedure Evaluation Filed: 08/13/2022 5:07 PM Note Text: POST ANESTHESIA EVALUATION NOTE : 1965 Procedure Summary Date: 08/13/22 Room / Location: [address] [facility] Anesthesia Start: 1448 Anesthesia Stop: 1632 [...] August 13, 2022 TIME: 5:06 PM CSN: [id number] County Hospital PRE-OPon 17-04-0353DZMV PRE-OPHNO ID: [id number] Author: Brennan Henley MD Service: ? Author Type: Anesthesiologist Type: Anesthesia Preprocedure Evaluation Filed: 08/13/2022 1:52 PM Note Text: ANESTHESIOLOGY DAY OF SURGERY NOTE : 1965 Procedure Information Date/Time: 08/13/22 1310 Procedures: BIOPSY PENIS (Penis) EXCISION BENIGN LESION GENITALS 3.1 TO 4.0 CM (Penis) Location: MAIN [facility] Surgeons: Víctor Rosales MD Estimated [...] and consent discussed: yes. Patient / Responsible Republican agrees to proceed: yes Patient / Surrogate [...] August 13, 2022 TIME: 1:51 PM CSN: [id number] Hospital OP NOTon 22-34-1715MKICY OP NOTHNO ID: [id number] Author: Vinh Montague MD Service: Urology Author Type: Resident Type: Brief Op Note Filed: 08/13/2022 4:03 PM Note Text: UROLOGY SERVICE BRIEF OPERATIVE NOTE LOG ID: [id number] Surgery/Procedure Date: 08/13/2022 Incision/Procedure Start Time: 3:30 PM Incision Close/Procedure End Time: 3:57 PM Patient Age: [age] year old Surgeon(s)/Proceduralist(s) and Maintenance Mechanic Engine(s): Surgeon(s) and Role: * Víctor Rosales MD [...] August 13, 2022 TIME: 4:00 PM PAGER/CONTACT #:NormalAvita Health System Galion HospitalvelandCNCOon 08-13-2022 CNCOLetter TextNormalCMorrow County HospitalTORY PHYSICALon 08-13-2022 HISTORY PHYSICALHNO ID: [id number] Author: Hollis Lugo MD Service: Urology Author [...] Hollis Lugo MD, MS Urology PGY-2 Pager: [phone] After Hours [facility] Urology Service Pager: [phone] Clinic 12-38-3109MXMLOBM PROGHNO ID: [id number] Author: Fany Dorado RN Service: ? Author Type: Registered Nurse Type: Nursing Progress Note Filed: 08/13/2022 7:21 PM Note Text: Nursing Progress Note Topic of Note: Incidental Juan Pack [place] [id number] Urology Resident [employer]ipe [employer] text paged: Can you please call me re: MR. Bean M023-33, needs letter written not to work for at least one week. Thanks Fany [phone] This note was completed by: Fany Dorado RNMercy Health Willard Hospital ID: [id number] Author: Fany Dorado RN Service: ? Author Type: Registered Nurse Type: Nursing Progress Note Filed: 08/13/2022 7:10 PM Note Text: Nursing Progress Note Topic of Note: Incidental Juan Pack [place] [id number] Dr. Rosales text paged: . 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 Needs work excuse if can't go to work. Please call [phone]. Fany This note was completed by: Fany Dorado RNMercy Health Willard Hospital ID: [id number] Author: Fany Dorado RN Service: ? Author Type: Registered Nurse Type: Nursing Progress Note Filed: 08/13/2022 7:06 PM Note Text: Nursing Progress Note Topic of Note: Incidental Juan Pack [place] [id number] Dr. Montague (urology surgical scrub technician) text paged: good afternoon, Mr. Bean M023-34, ? re: work, lifting[place] [phone]? Thanks, Fany [phone] This note was completed by: Fany NicolasMary [facility]an Hospital ID: [id number] Author: Fany Dorado RN Service: ? Author [...] (RECOMMENDATION): None Electronically Signed By: Fany Dorado RNMercy Health Willard Hospital ID: [id number] Author: Marisel Jones RN Service: Nursing Author Type: Registered Nurse Type: Nursing Progress Note Filed: 08/13/2022 12:06 PM Note Text: Other: SDS Nursing Note Dr. Henley, anesthesia, paged M23-38, OR 21, Juan Bean, MARGARITO patient's pre-op blood sugar is 197. Held PO diabetic meds per pre-op instructions. ThanksKarla Urology resident paged [phone]) for updated HANDP. M23-38, OR 21 - Juan Bean, Patient's HANDP needs updated, > 30 days. Thanks, Karla Manzanares Normal [facility] HospitalOPERATIVE NOon 57-00-4463DCJICSDHL NOHNO ID: [id number] Author: Víctor Rosales MD Service: Urology Author Type: Physician Type: Operative Report Filed: 08/16/2022 9:36 AM Note Text: UROLOGY OPERATIVE REPORT LOG ID: [id number] Surgery/Procedure Date: 08/13/2022 Incision/Procedure Start Time: 3:30 PM Incision Close/Procedure End Time: 3:57 PM Surgeon(s)/Proceduralist(s) and Maintenance Mechanic Engine(s): Surgeon(s) and Role: * Víctor Rosales MD [...] A glans traction suture was placed to awning hanger helper in exposure of the penis. Exam [...] performed the procedure with (more content not included)...NormalProMedica Defiance Regional HospitalRGICAL PATHOLOGYon 54-62-1580NIXM REPORTNoTwin City HospitalComment on above:Order Comment: Specimen Type: TISSUE SPECIMENOrdering Facility: [facility] Address: [address] [place], [place] [address]Result Comment: Surgical Pathology Report Case: [id number] Authorizing Provider: Víctor Rosales MD Collected: 08/13/2022 03:33 PM Ordering Location: Admitting Received: 08/13/2022 04:30 PM Pathologist: Nazia Dunne MD Specimens: A) - PENIS BIOPSY, distal ventral penile lesion B) - PENIS BIOPSY, left dorsal glans penis C) - PENIS BIOPSY, dorsal distal penile skinPerformed By: #### S ####[facility] LABIA [id number] [address] OF E[facility]IONAL HOSPITALCLINICAL HISTORYNoTwin City Hospital Comment on above:Order Comment: Specimen Type: TISSUE SPECIMENOrdering Facility: [facility] Address: [address] [place] [address] Result Comment: 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 Distal ventral penile lesion, excision: -Lichen sclerosus. -Skin with ulceration, acute and chronic inflammation and reactive changes. -Negative for malignancy. B. Left dorsal glans penis, biopsy: -Lichen sclerosus. -Negative for malignancy. C. Distal dorsal penile skin, biopsy: -Benign skin with acute and chronic inflammation. Performed By: #### S ####[facility] LABCLIA [id number] [place] [id number] [facility] CENTERFINOR PERFORMING LABNormal [facility] on above:Order Comment: Specimen Type: TISSUE SPECIMENOrdering Facility: [facility] Address: [address] [place], [place] [address]Result Comment: Diagnostic interpretation performed at [facility], [address] [place] [id number] CLIA# [id number] Hedis Analyst: Antonio Peters M.D.Performed By: #### S ####[facility] LABCLIA [id number] [address]ETGROSS DESCRIPTIONA. PENIS BIOPSYNormalCKeenan Private Hospital on above:Order Comment: Specimen Type: TISSUE SPECIMENOrdering Facility: [facility] Address: [address] [place], [place] [address]Result Comment: Received in formalin labeled as distal [...] 2022 1:19 PM Gross examination performed at [facility], [address] [place], [place] [address]Performed By: #### S ####[facility] LABCLIA [id number] [address] AVENUEDESK [id number] 13-44-1311FTSKFjxokomrt (DARLING) JUAN BEAN ([id number]) 1965 M Date Time Provider Department 07/28/22 [...] Fully Assessed Reason for Visit: Patient Question [2159] Cmt: Patient call with Marco Antonio Michael [...] (HC*07/12/2022 Encounter Status:Closed by NEEMA ARIAS on 07/28/22NoKeenan Private Hospital [id number] (UROLBE) BEAN,JUAN Pack ([id number]) 1965 M Date Time Provider Department 07/27/22 MARCO ANTONIO MICHAEL During your visit today, we recorded the following information about you: Marco Antonio Michael APRN.CNP 07/27/2022 1:33 PM Signed ----- Message from [...] Please advise and thank you, Atiya Michael APRN.CNP 07/27/2022 1:41 PM Signed Called Juan Pack Bean. He reports that he takes lisinopril-HCTZ [...] questions at this time. Marco Antonio Michael, SHAHZAD.SCRATCH FINISHER Allergies As of Date: 07/27/2022 (No Known [...] Encounter Status:Closed by MARCO ANTONIO MICHAEL on 07/27/22[facility] HospitalConsultation Noteon 85-23-2634Ohbohvhgdffr Note [id number]#1.00CD:127[facility] PrebleConsultation Noteon 13-52-5653Rvnvzclojoqd Note [id number]#1.00CD:127[facility] PrebleCNOVon 57-89-6401JVEENfcsob Visit (UROLMN) JUAN BEAN ([id number]) 1965 M Date Time Provider Department 07/12/22 8:30 AM VÍCTOR ROSALES During your visit today, we recorded the following information about you: Pulse Blood pressure Weight Height 92/minute 162/81 161.5 kg 1.854 m Víctor Rosales MD 07/12/2022 9:40 AM Signed [facility] NEW PATIENT HISTORY AND [...] for internal providers or letter via the [email or web address] for external providers. HISTORY CHIEF [...] Fellow Electronically signed = (more content not included)...NormalWvumedicine Barnesville HospitalURINALYSIS, REFLEX MICROSCOPICon 72-21-7711Uiscjgxwt Ql (U)NegativeNormalNegativeSumma Health Barberton Campus on above:Order Comment: Specimen Type: URINE SPECIMENOrdering Facility: [facility] Address:[address] [place], [place] [address]Performed By: #### [id number] ####[facility] LABCLIA [id number] [place] [address] [place] OF AMERICAClarity (Unsp spec)ClearNormalClearWvumedicine Barnesville Hospital Comment on above:Order Comment: Specimen Type: URINE SPECIMENOrdering Facility: [facility] Address:[address] [place] [address] Performed By: #### [id number] ####[facility] LABCLIA [id number] [place] [address] [place] Color (U)Light YellowNormalYellowWvumedicine Barnesville HospitalComjohn d. dingell [facility] on above: Order Comment: Specimen Type: URINE SPECIMENOrdering Facility: [facility] Address:[address] [place], [place] [address]Performed By: #### [id number] ####[facility] LABCLIA [id number] [place] [address] [place] AMERICAGlucose Test strip (U) [Mass/Vol]NegativeNormalTrace, NegativeCleTriHealth Good Samaritan Hospital on above:Order Comment: Specimen Type: URINE SPECIMENOrdering Facility: [facility] Address:[address] [place], [place] [address]Performed By: #### [id number] ####[facility] LABCLIA [id number] [place] [address] [place] AMERICAHemoglobin Ql (U) NegativeNormalNegative, TraceSumma Health Barberton Campus on above:Order Comment: Specimen Type: URINE SPECIMENOrdering Facility: [facility] Address:[address] [place], [place] [address]Performed By: #### [id number] ####[facility] LABCLIA [id number] [place] [address] [place] AMERICAKetones Ql (U)Negative NormalNegative, TraceSumma Health Barberton Campus on above:Order Comment: Specimen Type: URINE SPECIMENOrdering Facility: [facility] Address:[address] [place], [place] [address]Performed By: #### [id number] ####[facility] LABCLIA [id number] [place] [address] [place] AMERICALeukocyte esterase Test strip Ql (U)75 Doreen/uLAbnormalNegative, 25 Doreen/uLCleTriHealth Good Samaritan Hospital on above:Order Comment: Specimen Type: URINE SPECIMENOrdering Facility: [facility] Address:[address] [place], [place] [address]Performed By: #### [id number] ####[facility] LABCLIA [id number] [place] [address] [place] AMERICANitrite Ql (U)Negative NormalNegativeSumma Health Barberton Campus on above:Order Comment: Specimen Type: URINE SPECIMENOrdering Facility: [facility] Address:[address] [place], [place] [address]Performed By: #### [id number] ####[facility] LABCLIA [id number] [place] [address] [place] AMERICApH (U)5.5 [pH]Normal5.0-8.0[facility] on above:Order Comment: Specimen Type: URINE SPECIMENOrdering Facility: [facility] Address:[address] [place], [place] [address]Performed By: #### [id number] ####[facility] LABCLIA [id number] [place] [address] [place] Protein (U) [Mass/Vol]NegativeNormalTrace, NegativeWvumedicine Barnesville Hospital Comment on above:Order Comment: Specimen Type: URINE SPECIMENOrdering Facility: [facility] Address:[address] [place] [address] Performed By: #### [id number] ####[facility] LABIA [id number] [place] [address] [place] Specific gravity (U) [Rel density]1.226Dwkxbl7.005-1.030[facility] on above:Order Comment: Specimen Type: URINE SPECIMENOrdering Facility: [facility] Address:[address] [place], [place] [address]Performed By: #### [id number] ####[facility] LABCLIA [id number] [place] [address] [place] Urobilinogen Ql (U)NegativeNormalNegativeSumma Health Barberton Campus on above:Order Comment: Specimen Type: URINE SPECIMENOrdering Facility: [facility] Address:[address] [place], [place] [address]Performed By: #### [id number] ####[facility] LABIA [id number] [place] [address] [place] AMERICABilirubin Ql (U) NegativeNegativeHenry County HospitalClarity (Unsp spec)ClearCleClermont County Hospital Color (U)Light YellowYellowHenry County HospitalGlucose Test strip (U) [Mass/Vol] NegativeTrace, NegativeHenry County HospitalHemoglobin Ql (U)NegativeNegative, Trace Gong ClinicKetones Ql (U)NegativeNegative, TraceHenry County HospitalLeukocyte esterase Test strip Ql (U)75 Doreen/uLAbnormalNegative, 25 Doreen/uLClefirelands regional medical center south [facility] Clinic Nitrite Ql (U)NegativeNegativeHenry County HospitalpH (U)5.5 [pH]5.0 - 8.0CleHolzer Health SystemProtein (U) [Mass/Vol]NegativeTrace, NegativeJackson ClinicSpecific gravity (U) [Rel density]1.0181.005 - 1.030CleHolzer Health SystemUrobilinogen Ql (U) NegativeNegativeHenry County HospitalPathology Noteon 68-35-5525Smykamyys Note [id number]#1.00CD:[address] [place], [place] [address]Alanine aminotransferase [Enzymatic activity/volume] in Serum or Plasma Ordered By: Silvio Yu on 87-98-4412AXH [Catalytic activity/Vol]20 U/L 7-52[facility] TroyAlbumin [Mass/volume] in Serum or Plasma by Bromocresol green (BCG) dye binding methoOrdered By: Silvio Yu on 08-36-1820Cwovwyq BCG dye [Mass/Vol]4.5 g/dL3.5-5.7FKettering HealthAlkaline phosphatase [Enzymatic activity/volume] in Serum or PlasmaOrdered By: Silvio Yu on 94-42-7837GRQ [Catalytic activity/Vol]57 U/L34-104 [facility] TroyAspartate aminotransferase [Enzymatic activity/volume] in Serum or PlasmaOrdered By: Silvio Yu on 06-30-2022 AST [Catalytic activity/Vol]17 U/O82-01ErwzrkuweKettering Health Troy Basophils Auto (Bld) [#/Vol]Ordered By: Silvio Yu on 54-77-1029Bnbfnapvr (Bld) [#/Vol]0.0 10*3/uL0.0-0.2FKettering HealthBasophils/100 WBC Auto (Bld)Ordered By: Silvio Yu on 78-56-2596Jhqshkhxh/100 WBC (Bld) 0.2 %.[facility] TroyBilirubin.total [Mass/volume] in Serum or PlasmaOrdered By: Silvio Yu on 13-70-4808Fmnnsbjyl [Mass/Vol]0.7 mg/dL 0.3-1.0[facility] TroyCalcium [Mass/volume] in Serum or Plasma Ordered By: Silvio Yu on 67-97-3888Pngsspx [Mass/Vol]9.7 mg/dL8.6-10.3 [facility] TroyCarbon dioxide, total [Moles/volume] in Serum or PlasmaOrdered By: Silvio Yu on 41-40-8393AH1 [Moles/Vol]29.5 mmol/L 21.0-31.0[facility] TroyChloride [Moles/volume] in Serum or PlasmaOrdered By: Silvio Yu on 10-75-9836Yslwamxo [Moles/Vol]98 mmol/L 98-107[facility] TroyCreatinine [Mass/volume] in Serum or PlasmaOrdered By: Silvio Yu on 10-84-7235Xpvdbkomsq [Mass/Vol]0.85 mg/dL 0.70-1.30[facility] TroyEosinophils Auto (Bld) [#/Vol]Ordered By: Silvio Yu on 27-99-8448Uavwqpvhqqr (Bld) [#/Vol]0.1 10*3/uL0.0-0.45 [facility] TroyEosinophils/100 WBC Auto (Bld)Ordered By: Silvio Yu on 22-35-3179Nqwhmvhehzd/100 WBC (Bld)1.3 %.[facility] TroyErythrocyte distribution width Auto (RBC) [Ratio]Ordered By: Silvio Yu on 01-90-7416Utfvbecqtbm distribution width (RBC) [Ratio]13.8 %12.0-14.8[facility] TroyGlobulin Calc (S) [Mass/Vol]Ordered By: Silvio Yu on 52-44-4539Poqadsps (S) [Mass/Vol]3.1 g/dLKettering Health TroyGlucose [Mass/volume] in Serum or PlasmaOrdered By: Silvio Yu on 59-16-1350Mnjwqzz [Mass/Vol]154 mg/kU80-010IvwvpuurjKettering Health TroyComment on above:ADA recommended reference rangeRandom Glucose Reference Range is dependent on time and content of last meal. Glucose of more than 200 mg/dL in a nonstressed, ambulatory subject supports the diagnosisof Diabetes Mellitus.Hematocrit Auto (Bld) [Volume fraction]Ordered By: Silvio Yu on 10-79-9027Vpanmanoka (Bld) [Volume fraction]43.8 %38.8-50.0 [facility] TroyHemoglobin [Mass/volume] in BloodOrdered By: Silvio Yu on 28-03-1421Trcjzlpqjz (Bld) [Mass/Vol]14.7 g/dL13.0-17.0 [facility] TroyLeukocytes [#/volume] corrected for nucleated erythrocytes in Blood by Automated counOrdered By: Silvio Yu on 20-59-1779UIO corrected for nucl RBC Auto (Bld) [#/Vol]8.5 10*3/uL4.1-10.5 [facility] TroyLymphocytes Auto (Bld) [#/Vol]Ordered By: Silvio Yu on 00-53-9963Gatzpglcbtx (Bld) [#/Vol]1.3 10*3/uL1.00-4.8 [facility] TroyLymphocytes/100 WBC Auto (Bld)Ordered By: Silvio Yu on 79-08-6352Umltxbzoxea/100 WBC (Bld)15.0 %.[facility] Auto (RBC) [Entitic mass]Ordered By: Silvio Yu on 54-70-4851WIB (RBC) [Entitic mass]30.4 pg27.5-35.2FUniversity Hospitals Beachwood Medical CenterHC Auto (RBC) [Mass/Vol]Ordered By: Silvio Yu on 60-08-7120LUQE (RBC) [Mass/Vol]33.6 g/dL32.5-35.6FUniversity Hospitals Beachwood Medical CenterV Auto (RBC) [Entitic vol]Ordered By: Silvio Yu on 37-48-9254AVK (RBC) [Entitic vol]90.6 fL83.5-101[facility] TroyMonocytes Auto (Bld) [#/Vol]Ordered By: Silvio Yu on 15-75-9904Gembsnqva (Bld) [#/Vol]0.7 10*3/uL0.0-0.8[facility] TroyMonocytes/100 WBC Auto (Bld)Ordered By: Silvio Yu on 17-13-8941Aakrymgrq/100 WBC (Bld)8.8 %. [facility] TroyNeutrophils Auto (Bld) [#/Vol]Ordered By: Silvio Yu on 33-61-0120Bywngnaioop (Bld) [#/Vol]6.3 10*3/uL1.8-7.7 [facility] TroyNeutrophils/100 WBC Auto (Bld)Ordered By: Silvio Yu on 84-11-8287Aadbcigjgrd/100 WBC (Bld)74.7 %.[facility] TroyNo Panel InformationOrdered By: Silvio Yu on 60-86-6004Hebpdddto GFR (CKD-EPI)> 60.0 mL/MinKettering Health Troy Pharmacy Creatinine Clearance (Lhcw121.44[facility] Nucleated erythrocytes [Presence] in Blood by Automated countOrdered By: Silvio Yu on 48-70-9951Casrqkbtk RBC Auto Ql (Bld)0.1 /100{WBC}0-0.5FKettering HealthPlatelet mean volume Auto (Bld) [Entitic vol]Ordered By: Silvio Yu on 94-98-5440Dbrnchze mean volume (Bld) [Entitic vol]8.3 fL 6.6-10.1FKettering HealthPlatelets Auto (Bld) [#/Vol]Ordered By: Silvio Yu on 91-46-6193Pcuesletp (Bld) [#/Vol]173 10*3/lJ445-839 [facility] TroyPotassium [Moles/volume] in Serum or Plasma Ordered By: Silvio Yu on 37-81-1894Hxyogznmb [Moles/Vol]4.1 mmol/L 3.5-5.1FKettering HealthProtein [Mass/volume] in Serum or Plasma Ordered By: Silvio Yu on 86-15-0580Vumlvhd [Mass/Vol]7.6 g/dL6.4-8.9 [facility] TroyRBC Auto (Bld) [#/Vol]Ordered By: Silvio Yu on 22-88-1197RVY (Bld) [#/Vol]4.83 10*6/uL3.90-5.60Mercy Healtherum or plasma albumin/globulin mass ratioOrdered By: Silvio Yu on 98-22-8433Wvijote/Globulin [Mass ratio]1.5 {ratio}Mercy Healtherum or plasma anion gap determinationOrdered By: Silvio Yu on 13-72-7116Boqxa gap [Moles/Vol]12.6 mmol/L6.0-15.0Mercy Healtherum or plasma carcinoembryonic antigen measurement (mass/volume)Ordered By: Silvio Yu on 36-69-4694Spjurfptudwzgafs Ag [Mass/Vol]1.7 ng/mL0.0-3.0Mercy Healthodium [Moles/volume] in Serum or PlasmaOrdered By: Silvio Yu on 18-84-3750Akmzki [Moles/Vol] 136 mmol/R142-017XhyybyzpiKettering Health TroyUrea nitrogen [Mass/volume] in Serum or PlasmaOrdered By: Silvio Yu on 97-88-8553Rvtg nitrogen [Mass/Vol]20 mg/dL7-25[facility] TroyWBC Auto (Bld) [#/Vol] Ordered By: Silvio Yu on 00-93-9864ETQ (Bld) [#/Vol]8.5 10*3/uL4.1-10.5 [facility] TroyPathology Noteon 63-28-5821Gaftfdifz Note [id number]#1.00CD:127NormalFisher Brandenburg CenterPathology Noteon 57-92-1221Nwrafoumw Note [id number]#1.00CD:127[facility] PreblePhysician Referralon 20-81-4283Tovcsqrjt Referral [id number]#1.00CD:127[facility] PreblePathology Noteon 60-49-8132Mzaqvekfr Note [id number]#1.00CD:[address] [place], [place] [address]URGICAL PATHOLOGY REFERENCE LAB CONSULTon 00-74-6563VRUX REPORTNormal [facility] Barnes[facility] HospitalComjohn d. dingell veterans affairs medical center on above:Order Comment: Specimen Type: SLIDEOrdering Facility: [facility] Address: [address] [place], [place] [address]Result Comment: Surgical Pathology Report Case: [id number] Authorizing Provider: Ritesh Calderon MD Collected: 06/23/2022 10:07 AM Ordering Location: [facility] Received: 06/23/2022 10:07 AM Pathologist: Shubham Pritchett MD, PhD Specimen: SLIDE(S), 3 SLIDES ([id number])Performed By: #### [id number] ####[facility] LABCLIA [id number] [place] [address] [place] AMERICACLINICAL HISTORYCONSULT REQUESTEDNoTwin City HospitalComment on above:Order Comment: Specimen Type: SLIDEOrdering Facility: [facility] Address: [address] [place], [place] [address]Performed By: #### [id number] ####[facility] LABCLIA [id number] [place] [address] [place] AMERICADIAGNOSIS COMMENTNoVeterans Health Administration on above:Order Comment: Specimen Type: SLIDEOrdering Facility: [facility] Address: [address] [place], [place] [address]Result Comment: Many thanks for sending in consultation this excision specimen from the penis of a 57-year-old male. Histologic sections demonstrate a keratinocytic neoplasm composed of full- thickness keratinocyte dysplasia with invasive irregular islands of atypical keratinocytes. These islands demonstrate marked cellular atypia and mitotic activity. Enclosed immunohistochemical stains are reviewed at the [facility]. A Ki- 67 stain demonstrates an increased proliferative index amongst the lesional cells. A stain for p16 is diffusely positivein the dysplastic areas. These findings support the above diagnosis. Overall, I agree with Dr. 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 The squamous cell carcinoma involves the excision margins.Performed By: #### [id number] ####[facility] LABCLIA [id number] [place] [address] [place] [facility] HOSPITALFINAL DIAGNOSISNoTwin City HospitalComment on above:Order Comment: Specimen Type: SLIDEOrdering Facility: [facility] Address: [address] [place], [place] [address] Result Comment: A. Skin, foreskin, circumcision ( [id number], 06/01/2022) : -Invasive moderately differentiated squamous cell carcinoma, see comment. AF/CK 06/23/2022 Performed By: #### [id number] ####[facility] LABCLIA [id number] [address] FINAL PERFORMING LABNoTwin City HospitalComment on above:Order Comment: Specimen Type: SLIDEOrdering Facility: [facility] Address: [address] [place], [place] [address]Result Comment: Diagnostic interpretation performed at [facility], [facility] [place] [address] CLIA# [id number] Hedis Analyst: Antonio Peters M.D.Performed By: #### [id number] ####[facility] LABCLIA [id number] [address] STATES AMERICAConsultation Noteon 06-22-2022 Consultation [id number]#1.00CD:127NoMain Campus Medical Centercreenson 29-44-8417Gztlwlm [id number]#1.00CD:127NoProMedica Flower HospitalPatient Educationon 56-23-5224Ahbsmrz EducationUrology Balanitis Balanitis is swelling and irritation [...] and shower gels thathave fragrance. ? Take iuhm-wkl-yykqpbu and prescription medicines only as told by [...] 07/10/2009 Document Revised: 02/03/2018 (more content not included)...[facility] PrebleUrology Office/Clinic Noteon 63-36-5476Cvhinno Office/Clinic NoteChief Complaint Pt is here for [...] When Contact Information RHONDA PROCTOR, Timmy Howard, URPancho In 2 months 08/21/[address] [address]- Additional Instructions: Patient Education Ramona Christiansen , [...] 2022-05-10: TPV50 influenza virus vaccine, inactivated 12/06/2016 RecordedKettering Health PrebleComment on above:Result Comment: Electronically Signed By: Timmy SANTANA MD\.br\Date and Time Signed: 06/21/22 09:30 EDT\.br\Electronically Co-Signed By: Ramona Yost MA\.br\Date and Time Co-Signed: 06/21/22 09:11 EDT Pathology Noteon 88-63-2638Xxlhsmqze Note [id number]#1.00CD:[address] [place], [place] [address]Operative Reporton 54-86-3561Tsntwbtlj Report [id number]#1.00CD:[address] [place], [place] [address]Consultation Noteon 20-18-4093Sednzrqihxon Note [id number]#1.00CD:[address] [place], [place] [address]Consultation [id number]#1.00CD:[address] [place], [place] [address]Glucose Glucometer (BldC) [Mass/Vol]Ordered By: Timmy Santana on 14-95-3022Ofbbfnp [Mass/Vol]176 mg/dLKettering Health TroyComment on above:Random Glucose Reference Range is dependent on time and content of last meal. 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 and [...] Bedtime as needed Vitamin D3 1.25 MG (81512 UT) Oral Capsuleone tablet weekly Allergies Medication [...] Vital Signs Recorded: 20May2022 11:13AMRecorded: 20May2022 11:12AM Gmawnfis728, LUE, Tbyyzwc266, RUE, Sitting Drioscwax21, LUE, Jazfomw47, RUE, Sitting Heart Ra (more content not included)...NormalUH TouchworksTobacco Screening.on 20-39-5045Wuzmy depression screening assessmentNoWashington [facility] [employer] DO Work Phone: Fall risk assessmentc) Not medically indicatedWashington Rural Health Collaborative & [facility] [employer] DO Work Phone: Tobacco use status CPHSb) NoMVirginia Mason Health System [employer] DO Work Phone: Activated partial thromboplastin time (aPTT) in platelet poor plasma by coagulation aOrdered By: Timmy Santana on 14-52-1949rFRW Coag (PPP) [Time]31.0 s25.1-36.5FKettering HealthBasophils Auto (Bld) [#/Vol]Ordered By: Timmy Santana on 88-33-6683Tfluhlkfl (Bld) [#/Vol]0.0 10*3/uL0.0-0.2FKettering HealthBasophils/100 WBC Auto (Bld) Ordered By: Timmy Santana on 95-36-3314Ozljttsou/100 WBC (Bld)0.6 %.[facility] TroyCalcium [Mass/volume] in Serum or PlasmaOrdered By: Timmy Santana on 50-50-1676Bypwaka [Mass/Vol]9.5 mg/dL8.6-10.3FKettering HealthCarbon dioxide, total [Moles/volume] in Serum or PlasmaOrdered By: Timmy Santana on 76-02-0591YM3 [Moles/Vol]27.9 mmol/L21.0-31.0[facility] TroyChloride [Moles/volume] in Serum or PlasmaOrdered By: Timmy Santana on 82-05-0371Bwyqlvwx [Moles/Vol]98 mmol/Y66-781JjbviocrnKettering Health TroyCreatinine [Mass/volume] in Serum or PlasmaOrdered By: Timmy Santana on 12-13-7537Equzyjbfgr [Mass/Vol]0.75 mg/dL0.70-1.30[facility] TroyEosinophils Auto (Bld) [#/Vol]Ordered By: Timmy Santana on 05-17-2022 Eosinophils (Bld) [#/Vol]0.1 10*3/uL0.0-0.45[facility] Eosinophils/100 WBC Auto (Bld)Ordered By: Timmy Santana on 05-17-2022 Eosinophils/100 WBC (Bld)1.2 %.[facility] TroyErythrocyte distribution width Auto (RBC) [Ratio]Ordered By: Timmy Santana on 05-17-2022 Erythrocyte distribution width (RBC) [Ratio]13.8 %12.0-14.8[facility] TroyGlucose [Mass/volume] in Serum or PlasmaOrdered By: Timmy Santana on 50-10-0702Ifxbqgb [Mass/Vol]172 mg/yJ74-331MeecanueqKettering Health Troy Comment on above:ADA recommended reference rangeRandom Glucose Reference Range is dependent on time and content of last meal. Glucose of more than 200 mg/dL in a nonstressed, ambulatory subject supports the diagnosisof Diabetes Mellitus. Hematocrit Auto (Bld) [Volume fraction]Ordered By: Timmy Santana on 05-17-2022 Hematocrit (Bld) [Volume fraction]39.5 %38.8-50.0[facility] TroyHemoglobin [Mass/volume] in BloodOrdered By: Timmy Santana on 05-17-2022 Hemoglobin (Bld) [Mass/Vol]13.7 g/dL13.0-17.0[facility] - Chemistry and Chemistry - challengeOrdered By: Timmy Santana on 44-32-7186LCY/1.73 sq M.predicted MDRD (S/P/Bld) [Vol rate/Area]mL/min/{1.73_m2} [facility] TroyLaboratory - CoagulationOrdered By: Timmy Santana on 51-20-3969AD Coag (PPP) [Time]11.9 s9.0-12.9[facility] TroyLeukocytes [#/volume] corrected for nucleated erythrocytes in Blood by Automated counOrdered By: Timmy Santana on 92-58-4802QTB corrected for nucl RBC Auto (Bld) [#/Vol]7.9 10*3/uL4.1-10.5FKettering Health Lymphocytes Auto (Bld) [#/Vol]Ordered By: Timmy Santana on 42-80-4330Farcljegzpq (Bld) [#/Vol]1.1 10*3/uL1.00-4.8[facility] TroyLymphocytes/100 WBC Auto (Bld)Ordered By: Timmy Santana on 64-85-5274Spzyysltfce/100 WBC (Bld) 14.3 %.[facility] Auto (RBC) [Entitic mass]Ordered By: Timmy Santana on 00-65-3542ZTM (RBC) [Entitic mass]30.8 pg27.5-35.2FKettering Health [facility] Campus Auto (RBC) [Mass/Vol]Ordered By: Timmy Santana on 74-92-7826NCTM (RBC) [Mass/Vol]34.5 g/dL32.5-35.6FKettering HealthMCV Auto (RBC) [Entitic vol]Ordered By: Timmy Santana on 93-37-6088DRV (RBC) [Entitic vol]89.2 fL83.5-101[facility] TroyMonocytes Auto (Bld) [#/Vol]Ordered By: Timmy Santana on 55-51-5272Vmudnkuck (Bld) [#/Vol] 0.6 10*3/uL0.0-0.8[facility] TroyMonocytes/100 WBC Auto (Bld) Ordered By: Timmy Santana on 72-08-3128Vudlryrpt/100 WBC (Bld)7.5 %.[facility] TroyNeutrophils Auto (Bld) [#/Vol]Ordered By: Timmy Santana on 61-06-9566Hziatrsasga (Bld) [#/Vol]6.1 10*3/uL1.8-7.7FKettering HealthNeutrophils/100 WBC Auto (Bld)Ordered By: Timmy Santana on 05-17-2022 Neutrophils/100 WBC (Bld)76.4 %.[facility] TroyNo Panel InformationOrdered By: Timmy Santana on 50-44-5001Xhsrgtlb Creatinine Clearance (ChemN/AFKettering HealthNucleated erythrocytes [Presence] in Blood by Automated countOrdered By: Timmy Santana on 54-11-4964Ividolhrq RBC Auto Ql (Bld)0.0 /100{WBC}0-0.5FKettering HealthPlatelet mean volume Auto (Bld) [Entitic vol]Ordered By: Timmy Santana on 66-88-5520Tdemluju mean volume (Bld) [Entitic vol]8.2 fL6.6-10.1FKettering Health Platelet poor plasma international normalized ratio (INR) by coagulation assay (relatOrdered By: Timmy Santana on 09-74-1775KIJ Coag (PPP) [Relative time]1.0 {INR}[facility] TroyComment on above:INR Therapeutic Range A) Pre- and [...] Auto (Bld) [#/Vol]Ordered By: Timmy Santana on [id number] (Bld) [#/Vol] 174 10*3/wE768-055IsasudlgxKettering Health TroyPotassium [Moles/volume] in Serum or PlasmaOrdered By: Timmy Santana on [id number] [Moles/Vol]3.9 mmol/L3.5-5.1FKettering HealthRBC Auto (Bld) [#/Vol]Ordered By: Timmy Santana on [id number] (Bld) [#/Vol]4.43 10*6/uL3.90-5.60Mercy Healtherum or plasma anion gap determinationOrdered By: Timmy Santana on [id number] gap [Moles/Vol]13.0 mmol/L6.0-15.0Mercy Healthodium [Moles/volume] in Serum or PlasmaOrdered By: Timmy Santana on 15-56-2522Skoywq [Moles/Vol]135 mmol/V674-638MzacrtazrKettering Health TroyUrea nitrogen [Mass/volume] in Serum or PlasmaOrdered By: Timmy Santana on 78-34-8534Nndx nitrogen [Mass/Vol]16 mg/dL7-25[facility] TroyWBC Auto (Bld) [#/Vol]Ordered By: Tmimy Santana on 50-34-6275IBB (Bld) [#/Vol]7.9 10*3/uL4.1-10.5FKettering HealthFormson 05-12-2022 [id number]#1.00CD:127NormalUc West [facility] HospitalPhysician Referralon 28-53-5528Oogeuwsqu Referral [id number]:127[facility] Systemcreenson 61-03-2754Xpaurwa [id number]#1.00CD:127[facility] PrebleAmbulatory Visit Summaryon 34-79-1392Opqbtaqabh Visit Summary JUAN BEAN :1965 Visit Date:05/10/2022 Ambulatory Visit Instructions Your Diagnosis Phimosis Balanoposthitis Hypogonadism male Tests Performed Urnls Dip Stick Auto w/o Microscopy POC 62448 Your Care Team Attending Physician - RHONDA PROCTOR, Timmy Howard Primary Care Physician - YUE PROCTOR, MANISH Coffman Referring Physician - CAROLYN [...] RHONDA PROCTOR, ROSCOE Garcia When: Where: [address] [place] [address]- Medications What How Much When Instructions Unchanged [...] Urnls Dip Stick Auto w/o Microscopy POC 26557 (05/10/2022) Bilirubin Urine Dipstick - Negative Blood Urine Dipstick - Trace-intact Glucose Urine Dipstick - Negative Ketones Urine Dipstick - Negative Leukocytes Urine Dipstick - Negative Nitrite Urine Dipstick - Negative Protein Urine Dipstick - Negative Specific Wesley Urine Dipstick - 1.025 Urine Appearance Urine [...] or foreskin. ? Itc (more content not included)...[facility] Educationon 81-52-4273Veljjgj EducationUrology Balanitis Balanitis is swelling and irritation [...] and shower gels thathave fragrance. ? Take oulq-dow-mkzfipl and prescription medicines only as told by [...] 07/10/2009 Document Revised: 02/03/2018 (more content not included)...[facility] Vital Signs Date TimeVital SignValuePerforming QediwwmmaHjwbmofx39-55-6717 10:060500Body ymriif840.4 cmCarolyn BRODERICK Work Phone: [phone] CenterJnqjptairf28-68-2088 10:06-0500Body mass index (BMI) [Ratio]54.49 kg/y3MvkpcCarolyn BRODERICK Work Phone: [phone] CenterSdkiekrotl39-29-7484 10:06-0500Body buwpsw380.34 kgCarolyn BRODERICK Work Phone: [phone] CenterZtepaieaio18-75-9181 10:06-0500Diastolic blood osfanrsf15 mm[Hg]Carolyn BRODERICK Work Phone: [phone] CenterClebiakgfp73-67-6394 10:06-0500Heart rate75 /min Carolyn BRODERICK Work Phone: [facility] CenterWpcytimzht04-05-3013 10:06-0500Respiratory rate16 /minKaren Hemmer PA Work Phone: [facility] CenterOlakshgsha70-01-8018 10:06-8140BvN5% (BldA) [Mass fraction]95 %Carolyn Hemmer PA Work Phone: [facility] CenterGhnfjamflq93-70-4336 10:06-0500Systolic blood bxkfmjne701 mm[Hg]Carolyn Hemmer PA Work Phone: [phone] CenterAdlwrmmsdb15-41-4584 15:20-0400Diastolic blood fxceauwo805 mm[Hg]Carolyn Hemmer SYSTEMS ADMINISTRATOR-C Work Phone: 1(301)[address] [place], [place] 9143610-09-2025 15:20-0400 Heart rate82 /minKaren Hemmer SYSTEMS ADMINISTRATOR-C Work Phone: 1([phone] [place], [place] 9143610-09-2025 15:20-0400 SaO2% (BldA) [Mass fraction]98 %Carolyn Hemmer SYSTEMS ADMINISTRATOR-C Work Phone: 1([phone] [place], [place] 9143610-09-2025 15:20-0400 Systolic blood gimdqgdr873 mm[Hg]Carolyn Hemmer SYSTEMS ADMINISTRATOR-C Work Phone: [phone] [place], [place] 9143610-02-2025 14:32-0400 Diastolic blood wipoyffn346 mm[Hg]Carolyn Hemmer SYSTEMS ADMINISTRATOR-C Work Phone: 1([phone] [place], [place] 9143610-02-2025 14:32-0400 Heart rate89 /minKaren Hemmer SYSTEMS ADMINISTRATOR-C Work Phone: [phone] [place], [place] 9143610-02-2025 14:32-0400 SaO2% (BldA) [Mass fraction]92 %Carolyn Hemmer SYSTEMS ADMINISTRATOR-C Work Phone: 1(986)[address] [place], [place] 9143610-02-2025 14:32-0400 Systolic blood asotecap931 mm[Hg]Carolyn Hemmer SYSTEMS ADMINISTRATOR-C Work Phone: 1(522)[address] [place], [place] 9143609-08-2025 15:10-0400 Body xuhgft121.42 cmKaren Hemmer SYSTEMS ADMINISTRATOR-C Work Phone: [facility]09-08-2025 15:10-0400 Diastolic blood mdrqhtfy65 mm[Hg]Carolyn Hemmer SYSTEMS ADMINISTRATOR-C Work Phone: 1([phone]-[facility]09-08-2025 15:10-0400 Heart rate81 /minKaren Hemmer SYSTEMS ADMINISTRATOR-C Work Phone: [phone] [place], [place] 3282009-08-2025 15:10-0400 SaO2% (BldA) [Mass fraction]93 %Carolyn Hemmer SYSTEMS ADMINISTRATOR-C Work Phone: 1([phone] [place], [place] 3282009-08-2025 15:10-0400 Systolic blood udarkimi269 mm[Hg]Carolyn Hemmer SYSTEMS ADMINISTRATOR-C Work Phone: 1(946)[address] [place], [place] 9143608-25-2025 16:54-0400 Diastolic blood eyaftwlm65 mm[Hg]Carolyn Hemmer PA Work Phone: 1(753)[facility]-[address] [place], [place] [address]Frufsibzhh93-85-6949 16:54-0400Systolic blood xdxxvoax310 mm[Hg]Carolyn Hemmer PA Work Phone: [facility] CenterVtgvqxcljk83-48-8729 16:30-0400Body pefdhp903.4 cmKaren Hemmer PA Work Phone: 1(425)[facility]-4513[facility] CenterJgzahtrhqf37-89-1505 16:30-0400Body mass index (BMI) [Ratio]54.22 kg/e7Qrigy Hemmer PA Work Phone: [facility] CenterKfcquzcyya19-18-0348 16:30-0400Body .43 kgKaren Hemmer PA Work Phone: [facility] CenterDpyaiqtark18-57-4201 16:30-0400Heart rate82 /min Carolyn Hemmer PA Work Phone: [facility] CenterFxtddyoltd33-44-8986 16:30-0400Respiratory rate16 /minJesusen Hemmer PA Work Phone: [facility] CenterZtwkfnmtkh55-28-9134 16:30-6886BeL8% (BldA) [Mass fraction]96 %Carolyn Hemmer PA Work Phone: [facility] CenterWdtibkjokb11-61-4786 16:36-0400Body cjynpc366.4 cmKaren Hemmer PA Work Phone: [facility] CenterKbzejkvlsq05-97-8254 16:36-0400Body mass index (BMI) [Ratio]53.3 kg/r6Bjuvc Hemmer PA Work Phone: [facility] CenterBldpkjkehj18-69-4056 16:36-0400Body gedwmo340.25 kgKaren Hemmer PA Work Phone: [facility] CenterZcujdoqkff51-69-5357 16:36-0400Diastolic blood ibfqaljj29 mm[Hg]Carolyn Hemmer PA Work Phone: [facility] CenterTtkhwoptsm09-89-7023 16:36-0400Heart rate82 /min Carolyn Hemmer PA Work Phone: 1(552)[facility]-6310[facility] CenterLucvfitdwk99-75-8639 16:36-6140CjX1% (BldA) [Mass fraction]95 %Carolyn Hemmer PA Work Phone: 1(565)[facility]-6301[facility] CenterIlacjqkerm15-09-1675 16:36-0400Systolic blood vabflmsu458 mm[Hg]Carolyn Hemmer PA Work Phone: [facility] CenterUktkxuhtph04-95-9907 16:58-0400Body .4 cmKaren Hemmer PA Work Phone: [facility] CenterLceiwauyqs78-79-2937 16:58-0400Body mass index (BMI) [Ratio]54.41 kg/f3Cztuh Hemmer PA Work Phone: [facility] CenterXnchaxclcw29-46-8450 16:58-0400Body wwvgca134.06 kgKaren Hemmer PA Work Phone: 1(045)[facility]-[address] [place], [place] [address]Edkvgjhxsa72-38-1302 16:58-0400Diastolic blood huqffjrb02 mm[Hg]Carolyn Hemmer PA Work Phone: 1(175)[facility]-[address] [place], [place] [address]Wxiqphhfgi90-62-2854 16:58-0400Heart rate83 /min Carolyn Hemmer PA Work Phone: 1(809)[facility]-[address] [place], [place] [address]Hhfleiuwni23-43-4108 16:58-0400Respiratory rate16 /minKaren Hemmer PA Work Phone: [facility] CenterGklpxhfufl18-44-4736 16:58-7680SqF7% (BldA) [Mass fraction]98 %Carolyn Hemmer PA Work Phone: [facility] CenterLmspqyxaiz75-96-8912 16:58-0400Systolic blood pieypdyw176 mm[Hg]Carolyn Hemmer PA Work Phone: [facility] CenterVvfncfmjfw23-87-1060 17:23-0500Diastolic blood jnhckarm30 mm[Hg]Carolyn Hemmer PA Work Phone: [facility] CenterKaoyiinrex37-04-9258 17:23-0500Systolic blood rufqyuzt124 mm[Hg]Carolyn Hemmer PA Work Phone: [facility] CenterXlxprawzxk41-52-2151 16:45-0500Body foxnhb376.4 cmKaren Hemmer PA Work Phone: [facility] CenterMehdrpygbf46-96-0486 16:45-0500Body mass index (BMI) [Ratio]52.93 kg/r9Zrpaw Hemmer PA Work Phone: [facility] CenterFargcbbjqg71-59-8285 16:45-0500Body dlilin859.98 kgKaren Hemmer PA Work Phone: [facility] CenterAgpmgspqoe59-77-1427 16:45-0500Heart rate71 /min Carolyn Hemmer PA Work Phone: [facility] CenterDkmufbthfj67-97-5842 16:45-0500Respiratory rate18 /minKaren Hemmer PA Work Phone: [facility] CenterSawvkfnszg18-34-4444 16:45-6962CrG7% (BldA) [Mass fraction]98 %Carolyn Hemmer PA Work Phone: [facility] CenterOwwreadfgb52-96-8895 14:33-0500Diastolic blood awjghcln45 mm[Hg]Carolyn Hemmer PA Work Phone: [facility] CenterOvgxkzksoi21-77-6496 14:33-0500Systolic blood uxbnavhh280 mm[Hg]Carolyn Hemmer PA Work Phone: noMer[facility] WashingtonHhhgzpejmc60-08-4581 14:08-0500Body lywcos882.4 cmKaren Hemmer PA Work Phone: noMercy [facility] WashingtonOfxzooqjip28-36-8745 14:08-0500Body mass index (BMI) [Ratio]52.59 kg/w6Qnxwr Hemmer PA Work Phone: [facility] CenterAggsldaeiz12-45-7913 14:08-0500Body temperature 98.6 [degF]Carolyn Hemmer PA Work Phone: [facility] CenterYfvhmcgfdk13-46-5567 14:08-0500Body zngyym309.8 kgKaren Hemmer PA Work Phone: [facility] CenterKbeqsswebk54-52-8801 14:08-0500Heart rate91 /min Carolyn Hemmer PA Work Phone: [facility] CenterQkgqowmdsw07-07-1613 14:08-0500Respiratory rate16 /minKaren Hemmer PA Work Phone: [facility] CenterHdonpiehcy69-90-5392 14:08-4422XqE8% (BldA) [Mass fraction]96 %Carolyn Hemmer PA Work Phone: [facility] CenterUhrczyokyz91-75-3291 16:41-0500Body wopdyx248.4 cmKaren Hemmer PA Work Phone: [facility] CenterNqealcnrih37-32-7411 16:41-0500Body mass index (BMI) [Ratio]51.16 kg/s1Czsba Hemmer PA Work Phone: [facility] CenterTbsleusjvx24-95-6422 16:41-0500Body wekudq378.91 kgKaren Hemmer PA Work Phone: [facility] CenterKubhoxdstd55-52-7894 16:41-0500Diastolic blood fdwixhub58 mm[Hg]Carolyn Hemmer PA Work Phone: [facility] CenterAxcucpnryn26-07-9917 16:41-0500Heart rate89 /min Carolyn Hemmer PA Work Phone: [facility] CenterZkblfiwkkw56-10-0390 16:41-0500Respiratory rate16 /minJesusen Hemmer PA Work Phone: [facility] CenterFvsusmgbmq11-84-9717 16:41-2127MdE0% (BldA) [Mass fraction]96 %Carolyn Hemmer PA Work Phone: [facility] CenterTuzxydsxaj95-80-7317 16:41-0500Systolic blood juuqeiyq462 mm[Hg]Carolyn Hemmer PA Work Phone: [facility] CenterDqwcytieso46-96-2839 14:12-0500Body tcycgw656.42 cmMichael Frings DO Work Phone: 1(251)[address] [place], [place] 6545201-27-2025 14:12-0500 Body mass index (BMI) [Ratio]50.1 kg/p5Bnqkuhx Frings DO Work Phone: 1(805)[address] [place], [place] 6545201-27-2025 14:12-0500 Body vvjrjo373.36 kgMichael Frings DO Work Phone: 1(147)[address] [place], [place] 6545201-27-2025 08:05-0500 Body ciqjxfetxtk30.7 [degF]Calvin Hannonngs DO Work Phone: 1(228)[address] [place], [place] 6545201-27-2025 08:05-0500 Heart rate98 /minMichael Frings DO Work Phone: 1(505)[address] [place], [place] 6545201-27-2025 08:05-0500 Respiratory rate18 /minMichael Frings DO Work Phone: 1(743)[address] [place], [place] 6545201-13-2025 15:31-0500 Body udhvge837.4 cmJesusen Hemmer PA Work Phone: [facility] CenterGyqnseunzv88-14-1096 15:31-0500Body mass index (BMI) [Ratio]50.95 kg/n8Taude Hemmer PA Work Phone: [facility] CenterUcrkagdnms63-68-8842 15:31-0500Body joyqlh335.18 kgJesusen Hemmer PA Work Phone: 1(419)483-[address] [place], [place] [address]Olzxdfzvoz39-12-3471 15:31-0500Diastolic blood xvsszqzi89 mm[Hg]Carolyn Hemmer PA Work Phone: [facility] CenterGfrbomflke84-57-7271 15:31-0500Heart rate96 /min Carolyn Hemmer PA Work Phone: [facility] CenterZyiptypmhp46-13-2954 15:31-0500Respiratory rate18 /minCarolyn Hemmer PA Work Phone: [facility] CenterSjeoeatxsk93-01-5421 15:31-0310EqX3% (BldA) [Mass fraction]97 %Carolyn Hemmer PA Work Phone: [facility] CenterHthrhljwyg96-55-8672 15:31-0500Systolic blood cmtplrup182 mm[Hg]Carolyn Hemmer PA Work Phone: [facility] CenterLqmyxuurud77-81-5509 08:29-0500Diastolic blood liugdxjq98 mm[Hg]Calvin Son DO Work Phone: [address] [place], [place] 6846001-13-2025 08:29-0500 Systolic blood qesctvvw355 mm[Hg]Calvin Osunas DO Work Phone: 1([phone] [place], [place] 2297601-08-2025 11:16-0500 Diastolic blood sbfzamng61 mm[Hg]Calvin Osunas DO Work Phone: 1(138)644-[address] [place], [place] 2297601-08-2025 11:16-0500 Heart rate98 /minMichael Frings DO Work Phone: 1(410)155-[address] [place], [place] 2297601-08-2025 11:16-0500 Respiratory rate18 /minMichael Frings DO Work Phone: [facility]01-08-2025 11:16-0500 SaO2% (BldA) [Mass fraction]95 %Calvin Osunas DO Work Phone: [facility]01-08-2025 11:16-0500 Systolic blood cxppgivh261 mm[Hg]Calvin Son DO Work Phone: [phone] [place], [place] 1520901-08-2025 08:00-0500 Body rztkskjqqeo45.6 [degF]Calvin Hannonngs DO Work Phone: 1(328)[address] [place], [place] 6545201-08-2025 06:50-0500 Body ojrrho495.8 kgMicsanti Frings DO Work Phone: 1(082)[address] [place], [place] 6545201-05-2025 16:00-0500 Inhaled oxygen flow rate2 L/minMichaepancho Frings DO Work Phone: 1(147)[address] [place], [place] 6545201-03-2025 15:21-0500 Body .42 cmMichaepancho Frings DO Work Phone: 1(305)[address] [place], [place] 6545210-23-2024 16:51-0400 Body qzidyc264.4 cmJesusen Hemmer PA Work Phone: [facility] CenterTlubupirnj85-14-1119 16:51-0400Body mass index (BMI) [Ratio]49.5 kg/y8Cstmc Hemmer PA Work Phone: [facility] CenterWhhfogghgw59-78-0643 16:51-0400Body mxgemi215.19 kgKaren Hemmer PA Work Phone: [facility] CenterMgdxstoplx80-04-6666 16:51-0400Diastolic blood ahzmadym56 mm[Hg]Carolyn Hemmer PA Work Phone: [facility] CenterQkuyyisjyq34-48-5015 16:51-0400Heart rate93 /min Carolyn Hemmer PA Work Phone: [facility] CenterEuynpjhjdh46-02-5684 16:51-0400Respiratory rate16 /minJesusen Hemmer PA Work Phone: [facility] CenterQkstwhlwqw72-15-1144 16:51-4524RkK8% (BldA) [Mass fraction]96 %Carolyn Hemmer PA Work Phone: noMer[facility] Hospital WashingtonNyqbndgekl58-15-2108 16:51-0400Systolic blood mm[Hg]Carolyn Hemmer PA Work Phone: 1(419)483-[address] [place], [place] [address]Xmuuubgoae42-74-7602 16:40-0500Diastolic blood feeyjagv49 mm[Hg]Carolyn Hemmer PA Work Phone: [facility] CenterYhaokkirfv53-13-4633 16:40-0500Systolic blood behvnoeg301 mm[Hg]Carolyn Hemmer PA Work Phone: [facility] CenterQfyveixebv33-55-3219 16:28-0500Body mass index (BMI) [Ratio]46.39 kg/z2Cpndf Hemmer PA Work Phone: [facility] CenterSodrvwovyl16-07-0310 16:28-0500Body nazgcq840.49 kgKaren Hemmer PA Work Phone: [facility] CenterQxboarmhlf50-96-5999 16:28-0500Heart rate91 /min Carolyn Hemmer PA Work Phone: [facility] CenterQnjiqwhgrw81-69-0872 16:28-0500Respiratory rate18 /minKaren Hemmer PA Work Phone: [facility] CenterTwywfrckrk04-44-4100 16:28-5480CdN3% (BldA) [Mass fraction]97 %Carolyn Hemmer PA Work Phone: [facility] CenterLnjkwggtcd16-68-2084 13:45-0500Body iunvqe446.42 cmSbarbara Lewis Other [facility] [facility] [employer] Other 11-29-2023 13:45-0500Diastolic blood mm[Hg] Osiel Lewis Other [facility] [employer] Other 11-29-2023 13:45-5286YzY6% (BldA) [Mass fraction]97 % Osiel Lewis Other [facility] [employer] Other 11-29-2023 13:45-0500Systolic blood owmaqpzc288 mm[Hg] Osiel Lewis Other [facility] [employer] Other 10-26-2023 16:00-0400Body oudpcx575.42 cmSbarbara Lewis Other [facility] [employer] Other 10-26-2023 16:00-0400Body mass index (BMI) [Ratio] 48.02 kg/p6UihadrOsiel Lewis Other [employer] Other 10-26-2023 16:00-0400Body .11 kgOsiel Lewis Other [facility] [employer] Other 10-26-2023 16:00-0400Diastolic blood cfwmykwz27 mm[Hg] Osiel Joshua Other [facility] [employer] Other 10-26-2023 16:00-5683AdI5% (BldA) [Mass fraction]96 % Osiel Parkerky Other [facility] [employer] Other 10-26-2023 16:00-0400Systolic blood neybfrce485 mm[Hg] Osiel Joshua Other [employer] Other 09-27-2023 11:06-0400Diastolic blood jfpxevpm50 mm[Hg] PA-C Carolyn Hemmer Work Phone: [facility]09-27-2023 11:06-0400 Heart rate77 /minPA-C Carolyn Hemmer Work Phone: [facility]09-27-2023 11:06-0400 Respiratory rate19 /minPA-C Carolyn Hemmer Work Phone: [facility]09-27-2023 11:06-0400 SaO2% (BldA) [Mass fraction]97 %PA-C Carolyn Hemmer Work Phone: [facility]09-27-2023 11:06-0400 Systolic blood jkdzsutk841 mm[Hg]PA-C Carolyn Hemmer Work Phone: 1(536)[address] [place], [place] 1243209-27-2023 09:24-0400 Body dlupqoznsvb21.6 [degF]PA-C Carolyn Hemmer Work Phone: 1(186)[address] [place], [place] 1243209-27-2023 09:23-0400 Body ammjbl787.42 cmPA-C Carolyn Hemmer Work Phone: 1(785)[address] [place], [place] 1243209-27-2023 09:23-0400 Body tajhgw997.8 kgPA-C Carolyn Hemmer Work Phone: 1(261)[address] [place], [place] 1243205-09-2023 09:07-0400 Body umkqgnbhabv65.2 [degF]PA-C Carolyn Hemmer Work Phone: 1(958)[address] [place], [place] 1243205-09-2023 09:07-0400 Body bdjwah612.68 kgPA-C Carolyn Hemmer Work Phone: 1(189)[address] [place], [place] 1243205-09-2023 09:07-0400 Diastolic blood uoslgdwk99 mm[Hg]PA-C Carolyn Hemmer Work Phone: 1(574)[address] [place], [place] 1243205-09-2023 09:07-0400 Heart rate80 /minPA-C Carolyn Hemmer Work Phone: 1(908)[address] [place], [place] 1243205-09-2023 09:07-0400 Respiratory rate20 /minPA-C Carolyn Hemmer Work Phone: 1(363)[address] [place], [place] 1243205-09-2023 09:07-0400 SaO2% (BldA) [Mass fraction]97 %PA-C Carolyn Hemmer Work Phone: 1(424)[address] [place], [place] 1243205-09-2023 09:07-0400 Systolic blood zbownrtc746 mm[Hg]PA-C Carolyn Hemmer Work Phone: 1(470)[address] [place], [place] 1243205-08-2023 08:52-0400 Body .4 cmVíctor Rosales MD Work Phone: [phone] Vithxi17-74-6901 08:52-0400Body .48 kgVíctor Rosales MD Work Phone: [phone] Necsmg34-32-1628 08:52-0400Diastolic blood jsxvhopj44 mm[Hg]Víctor Rosales MD Work Phone: [place] Ipcwvm86-52-0080 08:52-0400Heart rate92 /min Víctor Rosales MD Work Phone: [place] Uxjael90-27-2285 08:52-0400Systolic blood luctuwtg970 mm[Hg]Víctor Rosales MD Work Phone: [place] Avjejr71-35-0401 08:01-0400Body .42 cmPA-C Carolyn Hemmer Work Phone: 1(093)[address]03-27-2023 17:55-0400 Diastolic blood mm[Hg]PA-C Carolyn Hemmer Work Phone: 1(406)279-[address] [place], [place] 5871103-27-2023 17:55-0400 Heart rate92 /minPA-C Carolyn Hemmer Work Phone: 1(446)953-[address] [place], [place] 5871103-27-2023 17:55-0400 Respiratory rate16 /minPA-C Carolyn Hemmer Work Phone: 1([phone]03-27-2023 17:55-0400 SaO2% (BldA) [Mass fraction]94 %PA-C Carolyn Hemmer Work Phone: 1(313)976-02[facility]03-27-2023 17:55-0400 Systolic blood urapdnbn322 mm[Hg]PA-C Carolyn Hemmer Work Phone: 1(240)490-[address] [place], [place] 5871103-27-2023 17:25-0400 Inhaled oxygen flow rate1 L/minPA-C Carolyn Hemmer Work Phone: 1(667)754-[address] [place], [place] 5871103-27-2023 16:26-0400 Body kuckubiorbt02.4 [degF]PA-C Carolyn Hemmer Work Phone: [facility]03-27-2023 15:31-0400 Body .42 cmPA-C Carolyn Hemmer Work Phone: [facility]03-27-2023 15:31-0400 Body mass index (BMI) [Ratio]48.2 kg/m2PA-C Carolyn Hemmer Work Phone: [facility]03-27-2023 15:31-0400 Body mzokww908 kgPA-C Carolyn Hemmer Work Phone: [facility]03-16-2023 11:13-0400 Diastolic blood uoeiiffl19 mm[Hg]Carolyn Andrews [facility] 250 DO Work Phone: 1(973)696-088-220421-03 11:13-0400Systolic blood mm[Hg] Carolyn Andrews [facility] 250 DO Work Phone: 1(123)276-541-615577-52 11:12-0400Body byaavk384.42 cmCarolyn Andrews [facility] 250 DO Work Phone: 1(839)411-601-999081-24 11:12-0400Body mass index (BMI) [Ratio] 47.36 kg/b3Vwmjw M [facility] 250 DO Work Phone: 1(355)858-506-258440-67 11:12-0400Body surface area Derived from formula2.76 o4Jmptf M [facility] 250 DO Work Phone: [phone](446)869-290-212629-39 11:12-0400Body .84 kgCarolyn Andrews [facility] DO Work Phone: 1(981)136-481-289813-84 11:12-0400Diastolic blood vfokmzeh41 mm[Hg] Carolyn Andrews [facility] DO Work Phone: 1(898) 266-106203-16-2023 11:12-0400Heart rate90 /minCarolyn Verdin [facility] 250 DO Work Phone: 1(736) 538-284303-16-2023 11:12-0400Systolic blood cpqkjkua444 mm[Hg] [facility] 250 DO Work Phone: 1(809) 652-544703-06-2023 10:54-0500Diastolic blood jzdkykeh60 mm[Hg] [employer] [facility]03-06-2023 10:54-0500Mean blood ffuupfor486 mm[Hg][facility]03-06-2023 10:54-0500Respiratory rate70 /minDoniLED [employer] [facility]03-06-2023 10:54-0500Systolic blood xmovcylv849 mm[Hg][facility]03-06-2023 10:37-0500Blood Pressure LocationGregLED [employer] [facility]03-06-2023 10:37-0500Diastolic blood jryvbmla39 mm[Hg]TimmyLED [employer] [facility]03-06-2023 10:37-0500Heart rate84 /minDoniLED [employer] [facility]03-06-2023 10:37-0500Systolic blood nrrnyoqe697 mm[Hg][employer] [facility] Encounters Encounter DateEncounter TypeCare ProviderFacilityStart: 01-11-2025 End: 79-37-3557Kuyvnh flowsIvelisse BRODERICK Work Phone: [facility] MedinceStart: 01-11-2025 End: 73-11-6839Cbemsd Donavan BRODERICK Work Phone: [facility] MedinceStart: 01-11-2025 End: 74-58-6942Tcthccomxotr care manage srvc 7 day dischargeCarolyn BRODERICK Work Phone: [facility] Efren Contreras MedinceComment on above:Cellulitis of left lower leg (Primary Dx); History of sepsis; Type 2 diabetes mellitus with hyperglycemia, with long-term current use of insulin (HCC); Type 2 diabetes mellitus with other specified complication, with long-term current use of insulin (HCC); Difficulty sleepingStart: 01-11-2025 End: 45-19-0096hojihimprjCXTJC M HEMMERNot AvailableStart: 01-07-2025 End: 87-65-0364Mppgjpikv Result EncounterGeneric External Data ProviderNOMS External Department UnsolicitedStart: 01-07-2025 End: 94-12-7270Usyugedvg Result EncounterGeneric External Data ProviderNOMS External Department UnsolicitedStart: 01-04-2025 End: 94-27-1246Wdquisztt Result EncounterGeneric External Data ProviderNOMS External Department UnsolicitedStart: 01-04-2025 End: 14-21-9746Uyydfzhkm Result EncounterGeneric External Data ProviderNOMS External Department UnsolicitedStart: 01-04-2025 End: 83-70-2216kctlexnyrjJtaur Hemmer SYSTEMS ADMINISTRATOR-C Work Phone: -LAB Path Spec French [facility]: [facility] End: 02-24-0570Gvxmfabs Alex Chua MD-LAB [facility] Start: 12-13-2024 End: 06-25-6240pssmliznfwOpaee Hemmer SYSTEMS ADMINISTRATOR-C Work Phone: [facility] Work Phone: Start: 12-13-2024 End: 15-39-5634Kfuddae encounter procedureSbarbara Lewis MDEcu [facility] Work Phone: Start: 12-06-2024 End: 30-84-7850pryuubzkllHluua Hemmer SYSTEMS ADMINISTRATOR-C Work Phone: [facility] Work Phone: Start: 12-06-2024 End: 38-15-7890Ibqenzl encounter procedureSbarbara Lewis MDEcu [facility] Work Phone: Start: 11-13-2024 End: 21-13-5673Xdofdkb encounter procedureSbarbara Lewis MDN[facility] Work Phone: Start: 11-13-2024 End: 02-33-6162qjekmevclhMnyes Hemmer SYSTEMS ADMINISTRATOR-C Work Phone: [facility] Work Phone: Start: 11-12-2024 End: 82-78-5837qzjduisymsVicce Hemmer SYSTEMS ADMINISTRATOR-C Work Phone: [facility] Work Phone: Start: 11-12-2024 End: 53-44-6261Wpejmof encounter procedureSbarbara Lewis MDEcu [facility] Mg[facility] Work Phone: Start: 10-29-2024 End: 11-27-1729Bxzooc outpatient visit 25 minutesCarolyn BRODERICK Work Phone: [facility] on above:Type 2 diabetes mellitus with hyperglycemia, with long-term current use of insulin (HCC) (Primary Dx); Primary hypertension ; Morbid obesity (CMS-HCC); BMI 50.0-59.9, adult (CMS-HCC); Lumbar spondylosisStart: 10-29-2024 End: 11-60-2376msgsbpjpfoJLENI M HEMMERNot AvailableStart: 10-29-2024 End: 71-79-4477Zehcft flowsIvelisse BRODERICK Work Phone: [facility] MedinceStart: 10-29-2024 End: 02-05-0019Mqetxm Donavan Verdin PA Work Phone: [facility] [place] [facility] MedinceStart: 08-29-2024 End: 10-72-9651Fitgco outpatient visit 25 minutesCarolyn BRODERICK Work Phone: [facility] CI FMComment on above: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); Type 2 diabetes mellitus with hyperglycemia, with long-term current use of insulin (HCC); Morbid obesity (CMS-HCC); BMI 50.0-59.9, adult (CMS-HCC); Type 2 diabetes mellitus with other specified complication, with long-term current use of insulin (HCC)Start: 08-29-2024 End: 04-71-6932kdejapjmvrIMNAPAmrita Deng AvailableStart: 08-01-2024 End: 03-98-7286Grsgwk outpatient visit 25 minutesCarolyn Verdin PA Work Phone: [facility] CI FMComment on above:Type 2 diabetes mellitus with other specified complication, with long-term current use of insulin (P rimary Dx); 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); Lymphedema; Lumbar spondylosis; Type 2 diabetes mellitus with hyperglycemia, with long-term current use of insulin (CMS/HCC); Morbid obesity (CMS/HCC); BMI 50.0-59.9, adult (CMS/HCC)Start: 08-01-2024 End: 51-73-0364vwspfnwmohYGEOEAmrita Deng AvailableStart: 08-01-2024 End: 65-38-9927Vgnnto Donavan BRODERICK Work Phone: [facility] CI FMStart: 08-01-2024 End: 05-86-6177Rwuuxa Donavan BRODERICK Work Phone: [facility] CI FMStart: 05-77-1446hgeivltbzwWngpd Hemmer [facility] 05-09-[facility]24 End: 69-96-9674Fylscn outpatient visit 25 minutesCarolyn BRODERICK Work Phone: [facility] CI FMComment on above:Type 2 diabetes mellitus with hyperglycemia, without long-term current use of insulin (CMS/HCC) (Primary Dx); Morbid obesity (CMS/HCC); BMI 50.0-59.9, adult (CMS/HCC); 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); Cellulitis of left lower leg; Lymphedema; Pitting edema; Levoscoliosis of lumbar spineStart: 05-09-2024 End: 05-09-4715wdxaiehlpcRIMVP M HEMMERNot AvailableStart: 05-09-2024 End: 78-19-7906Hgzaiu Donavan BRODERICK Work Phone: [facility] CI FMStart: 05-09-2024 End: 23-69-8157Worbmx Donavan BRODERICK Work Phone: [facility] CI FMStart: 04-26-2024 End: 88-71-7077Yuljjl outpatient visit 25 minutesCarolyn BRODERICK Work Phone: [facility] CI FMComment on above: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) (Primary Dx); Cellulitis of left lower leg; Pitting edema; Lumbar spondylosis; Spinal stenosis of lumbar region, unspecified whether neurogenic claudication presentStart: 04-26-2024 End: 74-19-3091hdnepguwfuRWLTI M HEMMERNot AvailableStart: 04-10-2024 End: 53-98-5842Alnnqssos Andrew Rodriguez MD Work Phone: [facility] CI FMStart: 04-04-2024 End: 11-66-4408Nxbdvo outpatient visit 25 fmbhtnhCarolyn BRODERICK Work Phone: [facility] CI FMComment on above:Type 2 diabetes mellitus with other specified complication, without long-term current use of insulin (CMS/HCC) (Primary Dx); 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); Cellulitis of left lower leg; Morbid obesity (CMS/HCC); BMI 50.0-59.9, adult (CMS/HCC); Mild tricuspid regurgitationStart: 04-04-2024 End: 01-21-8725jknnfvxmeoWKFZCAmrita Deng AvailableStart: 04-04-2024 End: 34-31-2034Zmpjmj Donavan BRODERICK Work Phone: [facility] CI FMStart: 04-04-2024 End: 03-52-8188Ztzlya Donavan BRODERICK Work Phone: [facility] CI FMStart: 04-02-2024 End: 88-10-5930bskrbvqoxyFhcllri Frings DO Work Phone: [facility] Work Phone: Start: 04-02-2024 End: 57-26-8148Vjvlyobfjo RecurringMichael Frings DO Work Phone: [facility] [place] Work Phone: Start: 03-22-2024 End: 49-87-7207Iydlvnrea encounterManish Rodriguez MD Work Phone: [facility] CI FMStart: 03-19-2024 End: 01-77-5879Riruen outpatient visit 25 minutesCarolyn BRODERICK Work Phone: [facility] CI FMComment on above:Cellulitis of left lower leg (Primary Dx); History of sepsis; Morbid obesity (CMS/HCC); Primary hypertension (CMS/HCC)Start: 03-19-2024 End: 72-45-8978xihaefigjjLQMONAmrita Deng AvailableStart: 13-73-5980Dtr-patient / Non-visitMichael Frings DO Work Phone: [facility] Work Phone: Start: 87-61-9612Imy-patient / Non-visitMichael Frings DO Work Phone: [facility] Orth[facility] Work Phone: Start: 03-08-2024 End: 27-36-7300Mbnxjnqoqs and management of inpatientMike Phelan MD Work Phone: [facility] [place] [facility] Work Phone: Start: 03-07-2024 End: 06-86-8128tvtjzrmbzbSFP STAFFHolzer Medical Center – [facility] Work Phone: Start: 03-07-2024 End: 83-16-3444Hgazyfel ReferredMike Phelan MD Work Phone: [facility]-LAB Path Spec [place] [facility]ospStart: 12-28-2023 End: 60-42-6759Kgdvex outpatient visit 25 minutesCarolyn BRODERICK Work Phone: [facility] CI FMComment on above:Type 2 diabetes mellitus with other specified complication, without long-term current use of insulin (CMS/HCC) (Primary Dx); Primary hypertension (CMS/HCC); Morbid obesity (CMS/HCC)Start: 12-28-2023 End: 11-21-5659Keejvb Donavan Verdin PA Work Phone: [phone] CI FMStart: 12-28-2023 End: 09-51-7405Ivsmjm Donavan Verdin PA Work Phone: [phone] CI FMStart: 12-27-2023 End: 93-97-5318FhiqcqSysblp B Berry MD Work Phone: [phone] CI FMComment on above:Morbid obesity (CMS/HCC) Start: 11-23-2023 End: 94-78-4583ZyrmlgFsard M Hemmer PA Work Phone: [phone] CI FMComment on above:Morbid obesity (CMS/HCC) Start: 11-21-2023 End: 82-21-9537AgtxpbAelupu B Berry MD Work Phone: [phone] CI FMComment on above:Morbid obesity (CMS/HCC) Start: 10-24-2023 End: 09-43-7601KyalxxYvmlf M Hemmer PA Work Phone: noMS CI FMComment on above:Morbid obesity (CMS/HCC) Start: 04-20-2023 End: 43-10-7796Iivert outpatient visit 15 minutesJesusbritney Andrews Lambert PA Work Phone: noMS CI FMComment on above:Primary hypertension (CMS/HCC) (Primary Dx); Morbid obesity (CMS/HCC)Start: 26-51-9493Ehfqmm carolinaIvelisse Juliana Hemmer PA Work Phone: noMS CI FMStart: 02-91-9484Fvandw flowsMiltonbritney Juliana Hemmer PA Work Phone: noms CI FMStart: 02-02-2023 End: 19-26-2609mxlijslcuwHkhvrl Joshua Other [employer] Other Start: 89-38-2803Vjrgtw outpatient visit 15 minutes Osiel ZakyFPG Pain ManagementStart: 12-30-2022 End: 71-19-8697qpgiojjwxcSbfnor Joshua Other noThe [employer] Other Start: 48-75-8442Kqdbvb consultation new/estab patient 60 minSherif ZakyFPG Pain ManagementStart: 12-01-2022 End: 39-81-5923Ozsfrkeid department patient visitPA-C Carolyn Verdin Work Phone: [facility] Work Phone: Start: 11-09-2022 End: 33-92-4274methcfjpzuLJSTV HEMMERFacility:ALISHA LazarouskyStart: 08-19-2022 Telephone Dereje Rosales MD Work Phone: UrologyComment on above:ResultsStart: 08-13-2022 End: 95-15-1027vhrqeczfhpPCKLTRC L RALOFSKYFacility:[facility] Start: 08-09-2022 End: 81-25-7318zygvbironxErjysey P COOKFacility:EU SanduskyStart: 08-09-2022 End: 34-59-9297Kmpvxqd encounter procedureGregory P RHONDA [facility] Shane Start: 07-13-2022 End: 31-08-4228rjjjfljlgxWQ-C Carolyn Verdin Work Phone: [facility] Work Phone: Start: 07-13-2022 End: 06-92-9580Tlkyxsntso RecurringPA-C Carolyn Manjef Work Phone: [facility] Work Phone: Start: 07-12-2022 End: 25-98-9048giknejjacqZvynsnf W Angermeier MD Work Phone: UrologyStart: 07-12-2022 End: 78-55-8467Xlenago encounter procedureVíctor Rosales MD Work Phone: UrologyComment on above:Penile cancer (HCC) (Primary Dx); Hidden penis; Morbid obesity with BMI of 45.0-49.9, adult (HCC)Start: 06-21-2022 End: 69-86-8804qurhndcvfhHpfslxy P COOKFacility:EU [place]kyStart: 05-31-2022 End: 11-19-9126ynnxpmsjakCrsorcm P COOKFacility:CD:[id number]: 05-31-2022 End: 35-80-1482Hawgmojyl to same day surgery centerPA-C Carolyn Verdin Work Phone: [facility] Main CampusStart: 58-38-1357Ygoxsu consultation new/estab patient 60 Vanessa Thompson[facility] 250 DO Work Phone: Start: 94-93-8712vuznkhgfsbMloghkj Sheldon Facility:[id number]: 05-17-2022 End: 93-55-8499arsknzebnzKM-C Carolyn Hemmer Work Phone: [facility] Work Phone: Start: 05-17-2022 End: 40-06-9871Psurlzc encounter procedurePA-C Carolyn Hemmer Work Phone: [facility] Jyj-Tkl-Eiggioxs Testing Work Phone: Start: 05-10-2022 End: 23-85-0123tqglwbwgvmBucqtos P COOKFacility:EU [place]kyStart: 05-10-2022 End: 59-21-5997Kufkhee encounter procedureGregory P COOK [facility] [place] Start: 10-37-3792vkpwdjkkypACRMY HEMMERFacility:EU SanduskyPatient encounter statusCarolyn VerdinMP-[facility] 250 DO Work Phone: Procedures DateProcedureProcedure DetailPerforming ClinicianStart: 76-80-3050ZMJOO CULTURE 2Generic External Data ProviderStart: 30-65-1131WHHID CULTURE 1Generic External Data ProviderStart: 74-40-9678QPGHZ CULTURE 1Generic External Data Provider Start: 43-60-5435Lhjlj X-ray of right hipJesusbritney Conwaymer SYSTEMS ADMINISTRATOR-C Work Phone: Start: 09-94-7803R-ray of thoracic spine, three views Carolyn Hemmer SYSTEMS ADMINISTRATOR-C Work Phone: Start: 75-38-1873Ncanlkxjck glycosylated c4sEuvtd M Hemmer PA Work Phone: Start: 73-75-1321Qeozqmairu glycosylated l6yGavpj M Hemmer PA Work Phone: Start: 16-50-8322Dvavxebvqp glycosylated v0mZpmnx M Hemmer PA Work Phone: Start: 52-50-6707Latzht scan of lower limb veins Calvin Son DO Work Phone: Start: 01-56-4024Fxpyxslr identified in Blood by CultureMichael Frings DO Work Phone: Start: 02-79-2677VP of lower leg with contrastMichael Frings DO Work Phone: Start: 68-38-1421Byflhidu identified in Blood by CultureMichael Frings DO Work Phone: Start: 67-13-7999Ogqokztog ID (NA Multiplex Assay) Mike Phelan MD Work Phone: Start: 97-14-0712Ospwntplqa glycosylated y7bEkhhnCarolyn Verdin PA Work Phone: Start: 34-03-6830PS of right hipPA-C Carolyn Hemmer Work Phone: Start: 50-04-6018Mssri dip stick/tablet rgnt auto w/o microscopyBulk Order ProviderStart: 29-62-7583Evyycyhz tomography of abdomen and pelvis with contrastPA-C Carolyn Hemmer Work Phone: Start: 65-52-6937MP of thorax with contrastPA-C Carolyn Hemmer Work Phone: Start: 99-34-3763FmhbukgglyglBC-C Carolyn Hemmer Work Phone: Start: 16-05-5060SnclzhqfjppfQuglvpk [employer] Start: 30-88-8576Qkbyd chest X-rayPA-C Carolyn Hemmer Work Phone: Start: 52-72-6830Jhyzwqo of tonsillectomyGregory [employer] NEGATED: Highlighted row has not occurred!Total colonoscopyCarolyn Verdin Plan of Treatment DateCare ActivityDetailAuthorStart: 80-96-6897BSBOHPWF CANCER SCREENING DISCUSSIONPROSTATE CANCER SCREENING DISCUSSIONJackson ClinicStart: 05-14-2025 Urine screening for proteinDiabetes: Urine Protein ScreeningCameron [facility] Start: 02-06-2025 End: 20-96-3666Rbfsogh encounter qxigkpowi02/03/2025 4:30 PM EST Office Visit [facility] [facility] [address] [place] [address] Carolyn Verdin, PA [address] [place] [address] [facility]reras MedinceStart: 01-29-2025 Hemoglobin A1c measurementDiabetes: Hemoglobin X0IZVKH HealthcareStart: 01-14-2025 End: 85-93-9031Vipmfnp encounter ijvxjabbm14/10/2025 4:00 PM EST Office Visit [facility] [facility] [address] [place] [address] Carolyn Verdin, PA [address] [place] [address] [facility] [facility]reras MedinceStart: 01-11-2025 End: 85-26-1700Cpzepze encounter ugieitroz47/07/2025 10:00 AM EST Office Visit [facility] [place] Boyk[facility]ce [address] [place] [address] Carolyn Verdin, PA [address] [place] [address] ArrivedNOMS E[place] Contreras MedinceComment on above:ArrivedStart: 03-75-0694Asohhcbu identified in Blood by CultureBlood CultureMercy Healthtart: 42-50-0776HntnsvuaxMercy Healthtart: 42-84-2761JPEVD-19 Vaccine ( season)COVID-19 Vaccine ( season)[facility] HealthcareStart: 40-29-0828Qghapmghw vaccinationInfluenza Vaccine (#1)[facility] HealthcareStart: 94-61-3074Hcfkqoooxa A1c measurementDiabetes: Hemoglobin S6XYRTN HealthcareStart: 10-29-2024 End: 59-14-9153Yefinsd encounter procedureNOMS CI FMComment on above:Arrived Start: 99-31-8034Zkqnseclu vaccinationInfluenza Vaccine (#1)[facility] Comment on above:Postponed from 11/06/2023 (Patient Refused)Start: 08-29-2024 End: 27-28-2246Esgrxxh encounter xaclabadt91/25/2025 4:30 PM EDT Office Visit [facility] FM [address] [place] [address] Carolyn Verdin PA [address] [place] [address] [facility] CI FMStart: 12-19-2491Xycfsxnof for malignant neoplasm of colonColorectal Cancer ScreeningNOMS HealthcareComment on above: Postponed from 1965 (Patient Refused)Start: 08-01-2024 End: 92-66-7415Tmzfqtv encounter hbubhczrd25/28/2025 5:00 PM EDT Office Visit [facility] [address] [place] [address] Carolyn Verdin PA [address] [place] [address] ArrivedNOMS CI FMComment on above:ArrivedStart: 99-62-2895Wzcaxnmcxq A1c measurementDiabetes: Hemoglobin N3MFGJC Healthcare Start: 06-13-2024 End: 32-01-7541Fizovox encounter ryouaeeli92/09/2025 5:00 PM EDT Office Visit [facility] [address] [place] [address] Carolyn Verdin PA [address] [place] [address] N[facility] CI FMStart: 05-09-2024 End: 80-23-6730Pwfguie encounter procedureNOMS CI FMComment on above:Arrived Start: 05-09-2024 End: 66-82-9381Ehtprdtqupzmh metabolic 2000 panel - Serum or PlasmaComprehensive metabolic panel Lab Routine Type 2 diabetes mellitus with hyperglycemia, without long-term current use of insulin ([facility]) Expected: 05/09/2024 (Approximate), Expires: 05/09/2025NOMS HealthcareComment on above:Expected: 05/09/2024 (Approximate), Expires: 05/09/2025Start: 05-09-2024 End: 16-30-7268Cqrjhqnksafx/Creatinine panel in random UrineMicroalbumin / creatinine, urine ratio Lab Routine Type 2 diabetes mellitus with hyperglycemia, without long-term current use of insulin ([facility]) Expected: 05/09/2024 (Approximate), Expires: 05/09/2025[facility] Work Phone: Comment on above:Expected: 05/09/2024 (Approximate), Expires: 05/09/2025Start: 04-04-2024 End: 77-26-5367Hvblodk encounter procedureNOMS CI FMComment on above:Arrived Start: 16-69-2826Dvuuaxijrv A1c measurementDiabetes: Hemoglobin B3NFUII HealthcareStart: 51-75-4837KcliknexxMercy Healthtart: 03-09-2024 ConsultationMercy Healthtart: 04-82-3288Wdvrqznm to infectious diseases physicianMercy Healthtart: 03-09-2024 [facility]: 88-39-8661Hkvgjdiu admissionMercy Healthtart: 57-35-1514LypfekfwfMercy Healthtart: 67-09-4647QiiwzpmmiMercy Healthtart: 19-12-3401Erhzxyfo identified in Blood by CultureBlood CultureMercy Healthtart: 06-47-4451Nltwd screening for proteinDiabetes: Urine Protein ScreeningNOAK HealthcareStart: 12-28-2023 End: 12-46-3735Chpweeh encounter procedureNOMS CI FMComment on above:Arrived Start: 67-92-8863Momqdqybfd A1c measurementDiabetes: Hemoglobin O9IXKSD HealthcareStart: 11-23-2023 End: 29-14-9255Zznexnm encounter ftblpjbic53/18/2024 5:00 PM EDT Office Visit [facility] [address] [place] [address] Carolyn Verdin PA [address] [place] [address] N[facility] CI FMStart: 66-91-9498Luebtdbgd vaccination Influenza Vaccine (#1)[facility] HealthcareStart: 51-57-5598PKJADSBC SCREENDIABETES SCREENOhioHealth Grant Medical Centertart: 07-20-2023 End: 19-68-4791Eqoepsi encounter tahflvkqy39/15/2024 5:00 PM EDT Office Visit [facility] [address] [place] [address] Carolyn Verdin PA [address] [place] [address] N[facility] CI FMStart: 84-78-3442Edrhdzmwxn A1c measurement Diabetes: Hemoglobin P7XSIDW HealthcareStart: 04-20-2023 End: 58-30-4390Nrnviax encounter ggebnbmco92/14/2024 5:00 PM EST Office Visit [facility] [address] [place] [address] Carolyn Verdin PA [address] [place] [address] ArrivedNOMS CI FMComment on above:ArrivedStart: 49-84-1425Hsfufvmsv vaccinationINFLUENZA (Season Ended)[facility] Centertart: 74-80-8841Tugijhpdp for malignant neoplasm of colonNOMS HealthcareStart: 82-43-5745Aelpqgam screeningDiabetes: Retinopathy ScreeningNOMS HealthcareStart: 06-00-3766ZrvuvrxylMercy Healthtart: 88-62-4921PwdziaijtMercy Healthtart: 31-40-3360Gmwfv chest X-rayXR chest 2V*[facility]: 44-67-8715FI Chest 2 ViewsKettering Health Troy Start: 03-24-9556CFUVYNKJKG ASSESSMENTDEPRESSION ASSESSMENTHenry County Hospital Start: 03-95-2429BNZDU-19 VACCINE (4 - Booster for Moderna series)COVID-19 VACCINE (4 - Booster for Moderna series)[facility]art: 2015 SHINGRIX VACCINE (1 of 2)SHINGRIX VACCINE (1 of 2)[facility] Cent[facility]art: 32-63-0247CKMXNYFFF (FIT-DNA)COLOGUARD (FIT-DNA)[facility] Centertart: 12-01-1270HnwmojnxqwhNVYLITYCGDSSlkujbqfs ClinicStart: 28-77-4864WRFDIDVGCJ CANCER SCREENINGCOLORECTAL CANCER SCREENINGOhioHealth Grant Medical Centertart: 05-33-7805XI COLONOGRAPHYCT COLONOGRAPHYOhioHealth Grant Medical Centertart: 19-54-4803WJRGM OCCULT BLOOD FECAL OCCULT BLOODOhioHealth Grant Medical Centertart: 61-82-5038ODTHQIQEHZHHWBXHXBJVUUBHZB [facility]ertart: 34-42-6312LLSQP SCREENLIPID SCREENOhioHealth Grant Medical Centertart: 10-85-9336Jgdukbgup B Vaccines (1 of 3 - 19+ 3-dose series)Hepatitis B Vaccines (1 of 3 - 19+ 3-dose series)[facility] HealthcareStart: 54-01-0708Tqatmghlmgta Vaccine: Pediatrics (0 to 5 Years) and At-Risk Patients (6 to 64 Years) (1 of 2 - PCV)Pneumococcal Vaccine: Pediatrics (0 to 5 Years) and At-Risk Patients (6 to 64 Years) (1 of 2 - PCV)[facility] HealthcareStart: 34-59-6638Tftqt microalbumin profileDTAP,TDAP,TD (1 - Tdap)[facility]art: 61-63-8282PNNSEDVWR C SCREENINGHEPATITIS C SCREENINGOhioHealth Grant Medical Centertart: 50-39-9506DRE SCREENINGHIV SCREENINGOhioHealth Grant Medical Centertart: 28-37-3929QKgB/Tdap/Td Vaccines (1 - Tdap) DTaP/Tdap/Td Vaccines (1 - Tdap)[facility] HealthcareStart: 14-49-2715DRA Vaccines (1 of 1 - Standard series)MMR Vaccines (1 of 1 - Standard series)[facility] Healthcare Start: 84-77-7557HPKSPQIOE B (1 of 3 - 3-dose series)HEPATITIS B (1 of 3 - 3- dose series)[facility] Cent[facility]art: 81-46-3494Naacymavy for malignant neoplasm of colonNOMS HealthcareBLOOD CULTURE 1BLOOD CULTURE 1 Lab Routine 01/04/2025 9:45 AM EDTNOAK HealthcareBLOOD CULTURE 1BLOOD CULTURE 1 Lab Routine 01/07/2025 7:59 AM ESTS[facility] HealthcareBLOOD CULTURE 2BLOOD CULTURE 2 Lab Routine 01/07/2025 8:12 AM [facility] HealthcareCBC W Auto Differential panel - BloodCBC and differential Lab Routine Type 2 diabetes mellitus with hyperglycemia, without long-term curr ent use of insulin ([facility]/HCC) Hypertension due to endocrine disorder ([facility]) Cellulitis of left lower leg Ordered: 05/09/2024[facility] HealthcareComment on above: Ordered: 05/09/2024Lipid 1996 panel - Serum or PlasmaLipid panel Lab Routine Type 2 diabetes mellitus with hyperglycemia, without long-term current use of insulin ([facility]) Hypertension due to endocrine disorder ([facility]/HCC) Ordered: 05/09/2024[facility] HealthcareComment on above:Ordered: 05/09/2024Patient Education [facility] Work Phone: Patient referralHolzer Medical Center [facility] Work Phone: [facility] - right 2 [facility] 3 [facility] Immunizations Immunization DateImmunizationNotesCare XkbgexthUzciejiu17-76-3096rmmdmemkk, seasonal, injectable, preservative freeKaren Hemmer PA Work Phone: [employer] GeosciencesMercy Hospital WashingtonRowxcsmzqf72-60-9023hlhpsocmx, seasonal, injectable, preservative freeKaren Hemmer PA Work Phone: noMercy Hospital WashingtonZtectbvcgc93-36-8987gzhyttuak virus vaccine, unspecified formulationKaren Hemmer PA Work Phone: [employer] GeosciencesMercy Hospital WashingtonRktwsnrryh32-22-7744tftysyftz, injectable, quadrivalent, preservative freeKaren Hemmer PA Work Phone: [employer] GeosciencesMercy Hospital WashingtonKplzonifua35-66-6230tdwanldko virus vaccine, unspecified formulationKaren Hemmer PA Work Phone: [facility] CenterAmskejabks87-94-4187XCCN-EjD-9 (COVID-19) mRNA- 1273 vaccineGregory COOK [facility]y04-29-2021SARS-CoV-2 (COVID-19) mRNA-1273 vaccineTimmy [employer] [facility] on above:Result Comment: 2022-05-10: [id number]-CvD-6 (COVID-19) mRNA-1273 vaccineTimmy [employer] [facility] on above:Result Comment: 2022-05-10: [id number] virus vaccine, unspecified formulationUmmc Grenadajames Secure-NOK Expexwpal [facility]rology [facility] Hospitaly10-02-2017seasonal influenza, intradermal, preservative [facility] Payers DatePayer CategoryPayerPolicy [id number]-[id number] Health InsuranceMEDICAL MUTUAL [id number] [id number] [id number] .1.442737.3.57[id number] .1.766075.3.57[id number] 2..840.1.479755.3.57[id number] 2.16.840.1.887706.3.57[id number] 2..840.1.617018.3.57[id number] 2..840.1.833482.3.579.2.28733-45-9877Vjmcffj28585121 2.840.1.763974.3.579.2.074975-29-3744Rblkuwj18234136 2.840.1.486536.3.579.2.200984-48-2935Kpniucv70870331 2.0.1.429347.3.579.2.941174-79-0058Zfuqpto7055864 2.840.1.243423.3.579.2.176320-81-0261Unqtgjo8711586 2.840.1.799949.3.579.2.886827-07-2744Itiybsh6139553 2.840.1.288594.3.579.2.759744-10-4296Gwaspdx1196239 2.840.1.566130.3.579.2.581518-20-8097Xfhbypr2050116 2.840.1.095974.3.579.2.2781Zeyegxo40864630 2.840.1.573247.3.579.2.531 Lgimdfj22859079 2.16840.1.113171.3.579.2.230Ovlspgu52122556 2.16.840.1.685976.3.579.2.368Yvugkew40519789 2..840.1.855429.3.579.2.531 Tkctohh70501506 2..840.1.271132.3.579.2.872Qbfdfig99624562 2.16.840.1.893818.3.579.2.531 Social History DateTypeDetailFacilityStart: 05-10-2022 End: 89-75-4872Gevoayv smoking statusNever smoked tobacco (finding)[facility] [facility]: [id number] smoking statusNeverExecutive Urology of [facility]: 03-16-2023 End: [id number] [facility]: 05-17-2022 End: 73-75-9043Xjtmhkz smoking status NHISEx-smoker (finding)[facility]: 63-96-0463Mpv [facility]: 03-16-2023 End: 75-13-7921Jcrfskzvzh alcohol useOccasional alcohol useB[place]ille [address] DO Work Phone: Comment on above:couple shots 1- 2 per week;tea all day, occasionally coffee;quit 29+ years ago;History of tobacco useCurrent smoker [facility] HospitalHistory of tobacco useCigarette SmokerOhioHealth Grant Medical Centertart: 07-12-2022 End: 27-05-2464Xxvubkt use and exposureUser of smokeless tobaccoHenry County Hospital Start: 70-32-1841Tqh Assigned At BirthNot on fileHenry County HospitalHistory of tobacco useSnuff UserNOMS HealthcareStart: 03-16-2023 End: 71-23-1382Lqbacce intakeCurrent drinker of alcohol (finding)[facility] Start: 96-39-9358Xhjedom CommentCaffeine intake: coffee, sodaNOMS Healthcare Start: 03-09-2024 End: 57-04-2925EciHomf (finding)[facility] Equipment Procedure CodeEquipment CodeEquipment Original TextEquipment IdentifierDates [id number], [id number], [id number]: 07-03-2013 Goals DatePatient GoalDesired Activity/State Functional Status XsflEqtuwjxvfgWfnhxbXjrqkeuk75-01-3791Uulphbs Health Questionnaire 2 item (PHQ- 2) [Reported][facility] CenterRzgwcbogyb50-30-3141Hgeusdf Health Questionnaire 2 item (PHQ- 2) [Reported][facility] Medical CenterBwghrypdan88-29-3783Lylmjrccdx statusPatient at Baseline [facility] Work Phone: [phone]il StatusN/AExecutive [facility]rology of [facility] Mental Status TwbjOwuqajljfkNkquvjKsiavlxw81-77-4359Flankmkwt functionCognitive Status [facility] Work Phone: Clinical Notes 05-10-2022 to 01-11-2025 Note Date & FdecNxgcLnpoqrwy13-35-5207 History of Present illness Narrative* MEGGAN Lopez - 01/11/2025 10:00 AM EST Images from the original note were not included. Subjective Patient ID: Juan Bean is a 59 y.o. male who presents for [facility] follow up. Flowsheet Row Patient Outreach from 01/10/2025 in [facility] with Gayle Cheng RN Hospital Information ED, Hospital or Long Term Facility Discharge? Hospital Patient has been contacted within two business days of discharge Yes Diagnosis Cellulitis of left leg, Uncontrolled DM, Adult BMI 50.0-59.9 kg/sq m Discharge Date 01/09/25 Discharged To: Home Setting Discharge Hospital [facility] Engagement Call Start Time 1412 Admission Date 01/04/25 Medications Discharge medications reviewed and reconciled from hospital? Yes Is the patient having any side effects they believe may be caused by any medication additions or changes? No Does the patient have all medications ordered at discharge? Yes [picked up medication today] Prescription Comments New: Linezolid 600 mg BID x 10 days, Ertapenem 1 Gram recon soln 1 G IV daily ( will be done at [facility] in evening) Is the patient taking all medications as directed (includes completed medication regime)? Yes Nursing Interventions Nurse provided patient education Medication Comments Discharge has to stop Pioglitazone, pt has not stopped. Increase Insulin soliqua to 35 units ( pt is taking 30 units daily), Lisinopril decreased to 20 mg daily ( pt continues to take 40 mg) Pt will speak to PA tomorrow about medications. Appointments Does the patient have a primary care provider? Yes Nursing Interventions Verified appointment date/time/provider Does the patient have any upcoming specialty appointments? Yes [Dr Navarro- 01/17 at 1 pm] Nursing Interventions Advised patient to keep appointment Does patient have any post discharge follow up testing that needs to be completed? Other (specify) [outpatient sleep study] Self Management Does patient have home health? no Patient Teaching Does the patient have access to their discharge instructions? Yes Nursing Interventions Reviewed instructions with patient What is the patient's perception of their health status since discharge? Improving Is the patient/caregiver able to teach back the hierarchy of who to call/visit for symptoms/problems? PCP, Specialist, Home Health nurse, Urgent Care, ED, 911 Yes Wrap Up Wrap Up Additional Comments Extensive cellulitis involving left leg from the knee down to the ankle. Sepsis present on admission, resolved. Test: labs, CT left leg- no osteomyelitis or deep tissue abscess, Venous studies- negative for DVT, Blood cultures-negative. PICC line right arm, covered up, [facility] will monitor site. Call End Time 1509 Lisinopril was decreased to 20 mg. Soliqua 35 units daily. Ertapenem 1 gm IV daily x 10 days, Linezolid 600 mg BID x 10 days. Was told to follow up with Dr. Navarro on 01/17. The doctor wanted him to stay longer. Pt asked to be discharged. Was told to get CBC, BMP, CRP weekly for two weeks. 01/04/2025 HgbA1c was 8.3. His averages for his glucose over the past 30 days has been trending back down, now in the 160's-170's. Recommended pt have a Sleep Study. Not yet scheduled. He is feeling ok but bilateral legs are still red but left leg is worse than the right and the leftleg is still swollen. He is still taking IV ATB and still on oral ATB. Over the past 2 weeks, how often [...] each 3 ergocalciferol (Vitamin D2) 1.25 MG (12148 UT) capsule TAKE 1 CAPSULE BY MOUTH ONCE A WEEK 12 capsule 3 ertapenem 1 g in sodium chloride 0.9 % 50 mL IVPB Infuse 1 g into a venous catheter 1 (one) time each day at the same time furosemide (Lasix) 40 MG tablet TAKE 1 TABLET BY MOUTH DAILY 30 tablet 5 glucose blood (FREESTYLE TEST STRIPS) test strip 1 each by Other route Daily Use as instructed insulin pen needle (BD Pen Needle Mini Ultrafine) 31G x 5 mm misc Inject 1 each under the skin Daily Use as instructed 100 each 3 Lancets 30G misc 1 each Daily linezolid (Zyvox) 600 MG tablet Take 600 mg by mouth in the morning and 600 mg before bedtime. lisinopril 40 MG tablet Take 1 tablet [...] AT BEDTIME NEEDED 30 tablet 3 [DISCONTINUED] HYDROcodone-acetaminophen (Gulf Breeze) 5-325 MG tablet Take 1 tablet by mouth 2 (two) times a day as needed [DISCONTINUED] insulin glargine-lixisenatide (Soliqua) 100-33 UNT-MCG/ML pen Inject 22 Units under the skin in the morning. Inject before meals. (Patient taking differently: Inject 30 Units under theskin in the morning. Inject before meals.) 6 mL 5 No current facility-administered medications on file [...] PROSTATE BIOPSY TONSILLECTOMY 1970 Visit Vitals BP 138/76 Pulse 75 Resp 16 Ht 6' 1 Wt (!) 413 lb SpO2 95% BMI 54.49 kg/m Smoking Status Never BSA 3.1 m Review of Systems Constitutional: Negative for chills, fatigue and fever. Respiratory: Negative for cough, shortness of breath and wheezing. Cardiovascular: Positive for leg swelling. Negative for chest pain and palpitations. Gastrointestinal: Negative for abdominal pain, constipation, diarrhea, nausea and vomiting. Skin: Positive for color change and rash (Cellulitis). Objective Physical Exam Constitutional: General: He is not in acute distress. Appearance: He is obese. HENT: Head: Normocephalic and atraumatic. Eyes: General: No scleral icterus. Cardiovascular: Rate and Rhythm: Normal rate and regular rhythm. Heart sounds: No murmur heard. Pulmonary: Effort: Pulmonary effort is normal. No respiratory distress. Breath sounds: Decreased air movement (In lower lobes) present. No wheezing, rhonchi or rales. Musculoskeletal: Right lower leg: Edema present. Left lower leg: Edema present. Comments: Bilateral lower legs with erythema L > R, increased warmth to touch on the left lower leg Skin: General: Skin is warm and dry. Neurological: General: No focal deficit present. Mental Status: He is alert and oriented to person, place, and time. Psychiatric: Mood and Affect: Mood normal. Behavior: Behavior normal. Assessment/Plan Diagnoses and all orders for this visit: Cellulitis of left lower leg The patient was seen today in follow up of recent hospital stay. All available hospital records were reviewed and discussed with the patient. Hospital discharge meds were reviewed. Any changes are asnoted. History of sepsis Encouraged pt to finish the IV and oral antibiotics as prescribed. Follow up with Dr. Navarro as scheduled on 01/17. Provided pt with address and contact information for Dr. Navarro's office. Type 2 diabetes mellitus with hyperglycemia, with long-term current use of insulin ([facility]) Continue Pioglitazone, Metformin, Soliqua. Continue to monitor glucose levels routinely. Uses a Pro 3 [employer] Jalil 3+ (some samples provided today). Type 2 diabetes mellitus with other specified complication, with long-term current use of insulin ([facility]) - insulin glargine-lixisenatide (Soliqua) 100-33 UNT-MCG/ML pen; Inject 32 Units under the skin in the morning. Inject before meals. Increase Soliqua to 32 units a day. His glucose readings have slowly been trending down, but remainelevated. Will recheck at follow up in February. Difficulty sleeping Provided pt with contact information for Sleep Clinic. He has not yet been contacted to schedule. Our office will follow up on Tuesday to be sure they have received the order from the hospital. Follow up with MEGGAN Lawler in about 26 days (around 02/06/2025 Appointment as scheduled). documented in this encounterCameron Regional Medical CenterBxktjqxbrx04-01-0898 Evaluation note* Diagnosis Onset Date Resolution Status Admit Date Lumbosacral spondylosis acuteSept2024 2:54pmMid back painacuteSept2024 2:54pmOther chronic painacuteSeptember 2024 2:54pmRight hip painacuteSeptember 2024 2:54pmThoracic spondylosisacuteSeptember 2024 2:54pm [facility] Work Phone: 1(325) 534-747509-08-2025 Evaluation note* Diagnosis Onset Date Resolution Status Admit Date Lumbosacral spondylosis acuteSeptember 2024 2:54pmMid back painacuteSeptember 2024 2:54pmOther chronic painacuteSeptember 2024 2:54pmRight hip painacuteSeptember 2024 2:54pmThoracic spondylosisacuteSeptember 2024 2:54pmMyofascial muscle painacuteOctober 2024 2:16pmOther chronic painacuteOctober 2024 2:16pm Thoracic spondylosisacuteOctober 2024 2:16pm [facility] Work Phone: 1(230) 576-240809-08-2025 Evaluation note* Diagnosis Onset Date Resolution Status Admit Date Lumbosacral spondylosis acuteSeptember 2024 2:54pmMid back painacuteSeptember 2024 2:54pmOther chronic painacuteSeptember 2024 2:54pmRight hip painacuteSeptember 2024 2:54pmThoracic spondylosisacuteSeptember 2024 2:54pmMyofascial muscle painacuteOctober 2024 2:16pmOther chronic painacuteOctober 2024 2:16pm Thoracic spondylosisacuteOctober 2024 2:16pmMyofascial muscle painacute October 2024 3:12pmOther chronic painacuteOctober 2024 3:12pm [facility] Work Phone: 1(620) 247-245908-25-2025 History of Present illness Narrative* MEGGAN Lopez [...] 100 tablet 3 Blood Glucose Monitoring Suppl (D-Oddcast Glucometer) w/Device kit 1 each Daily Test glucose once a day. clobetasol (Temovate) 0.05 % ointment Apply 1 application topically in the morning and 1 application before bedtime. Continuous Glucose Sensor (FreeStyle Jalil 3 Plus Sensor) misc 1 each every 14 (fourteen) days 6 each 3 ergocalciferol (Vitamin D2) 1.25 MG (85056 UT) capsule TAKE 1 CAPSULE BY MOUTH ONCE A WEEK 12 capsule 3 furosemide (Lasix) 40 MG tablet Take 1 tablet (40 mg) by mouth Daily 30 tablet 5 glucose blood (FREESTYLE TEST STRIPS) test strip 1 each by Other route Daily Use as instructed HYDROcodone-acetaminophen (Gulf Breeze) 5-325 MG tablet Take 1 tablet by [...] hyperglycemia, with long-term current use of insulin ([facility]) - POCT Glycated hemoglobin, total Advised pt that his HgbA1c is significantly improved from 8.3 to 6.9 and is now considered controlled. Continue current medications. Will recheck in three months. Primary hypertension BP is much improved on recheck. Continue current medications as prescribed. Will continue to monitor. Morbid obesity ([facility]) Encouraged adequate protein intake. Continue to watch portion sizes. Stay hydrated. BMI 50.0-59.9, adult ([facility]) Encouraged pt to start some from of [...] (around 01/29/2025) for Diabetes. documented in this encounterCameron Regional Medical CenterPrsknjkzbp23-40-9553 History of Present illness Narrative* Carolyn Verdin, MEGGAN - 08/29/2024 4:30 PM EDT Images from [...] eggs, protein bars, low carb breakfast options, personal chef salads. Does feel the CGM is helpful [...] each 3 ergocalciferol (Vitamin D2) 1.25 MG (31090 UT) capsule TAKE 1 CAPSULE BY MOUTH once a week 12 capsule 3 furosemide (Lasix) 40 MG tablet Take 1 tablet (40 mg) by mouth Daily 30 tablet 5 glucose blood (FREESTYLE TEST STRIPS) test strip 1 each by Other route Daily Use as instructed HYDROcodone-acetaminophen (Gulf Breeze) 5-325 MG tablet Take 1 tablet by [...] hyperglycemia, with long-term current use of insulin ([facility]) Patient's glucose readings have been improving with [...] off of the Metforminand Actos. Morbid obesity ([facility]) Pt has lost 8 pounds since his labs appointment, which is excellent. Encouraged portion control, decrease simple sugars and carbohydrates, gradually increase activity level. Aim for continued, gradual steady weight loss. BMI 50.0-59.9, adult ([facility]) See above. Type 2 diabetes mellitus with other specified complication, with long-term current use of insulin ([facility]) - insulin glargine-lixisenatide (Soliqua) 100-33 UNT-MCG/ML pen; Inject 20 Units under the skin in the morning. Inject before meals. See above. Follow up in about 2 months (around 11/01/2024) for Diabetes. documented in this encounterCameron Regional Medical [id number] History of Present illness Narrative* MEGGAN Lopez [...] making his back hurt more. Requesting handicap lucero Will be getting the lymphedema pumps this [...] before bedtime. ergocalciferol (Vitamin D2) 1.25 MG (51661 UT) capsule TAKE 1 CAPSULE BY MOUTH once a week 12 capsule 3 furosemide (Lasix) 40 MG tablet Take 1 tablet (40 mg) by mouth Daily 30 tablet 5 glucose blood (FREESTYLE TEST STRIPS) test strip 1 each by Other route Daily Use as instructed HYDROcodone-acetaminophen (Gulf Breeze) 5-325 MG tablet Take 1 tablet by [...] in the body. Patient is seen for dnom-cs-nian encounter today and has a current diagnosis [...] medication changes. Hypertension due to endocrine disorder ([facility]) - lisinopril 40 MG tablet; Take [...] hyperglycemia, with long-term current use of insulin ([facility]) Encouraged him to continue to aim for healthy diet. Limit simple sugars. Intake adequate protein. Stay hydrated. Morbid obesity ([facility]) Pt has gained 11 pounds since his last appointment. Encouraged pt to aim for gradual weight loss. BMI 50.0-59.9, adult ([facility]) See above. Follow up in about 4 weeks (around 08/29/2024) for Diabetes, Hypertension. documented in this encounterBrett Ville [address]Mhgrmsjvpj83-86-2178 History of Present illness Narrative* Carolyn Verdin, MEGGAN - 05/09/2024 5:00 PM EST Images from [...] the am and amlodipine daily. Is eating Activ[employer]ided Therapeuticsurt. Current Outpatient Medications on File Prior to [...] before bedtime. ergocalciferol (Vitamin D2) 1.25 MG (08023 UT) capsule TAKE 1 CAPSULE BY MOUTH once a week 12 capsule 3 glimepiride (Amaryl) 4 MG tablet Take 1 tablet (4 mg) by mouth in the morning. glucose blood (FREESTYLE TEST STRIPS) test strip 1 each by Other route Daily Use as instructed HYDROcodone-acetaminophen (Gulf Breeze) 5-325 MG tablet Take 1 tablet by [...] hyperglycemia, without long-term current use of insulin ([facility]) - Microalbumin / creatinine, urine ratio; [...] if needed at that time. Morbid obesity ([facility]) Encouraged portion control, decrease simple sugars and carbohydrates, gradually increase activity level. Aim for gradual steady weight loss. BMI 50.0-59.9, adult ([facility]) See above. Hypertension due to endocrine disorder ([facility]) - CBC and differential - Lipid [...] 06/06/2024) for Hypertension, Diabetes. documented in this encounterCameron Regional Medical CenterNiljrkdsgn49-01-2474 History of Present illness Narrative* MEGGAN Lopez [...] 100 tablet 3 Blood Glucose Monitoring Suppl (D-Oddcast Glucometer) w/Device kit 1 each Daily Test glucose once a day. clobetasol (Temovate) 0.05 % ointment Apply 1 application topically in the morning and 1 application before bedtime. ergocalciferol (Vitamin D2) 1.25 MG (51128 UT) capsule TAKE 1 CAPSULE BY MOUTH once a week 12 capsule 3 glimepiride (Amaryl) 4 MG tablet Take 1 tablet (4 mg) by mouth in the morning. glucose blood (FREESTYLE TEST STRIPS) test strip 1 each by Other route Daily Use as instructed HYDROcodone-acetaminophen (Gulf Breeze) 5-325 MG tablet Take 1 tablet by [...] this visit: Hypertension due to endocrine disorder ([facility]) BP is mildly improved on recheck, but [...] of lumbar region May need referral to home health billing specialist. Need to get current infection and his BP under control priorto doing any more to pursue additional treatment for his back. He voiced understanding. Follow up for Appointment As Scheduled. documented in this encounterCameron Regional Medical CenterEgungoqgwx41-15-1554 Telephone encounter Note* Telephone Encounter - Chioma Webb - 04/10/2024 9:00 AM EST Patient was recently seen by carolyn. He called stating that his leg is getting slightly more red. Heis going to be running out of antibiotics by the weekend. He didn't know if he should need more antibiotics or what he should do next for this. [facility] Xzcrmzwdkf09-07-2566 Miscellaneous Notes* Telephone Encounter - Chioma Webb - 04/10/2024 9:00 AM EST Patient was recently seen by carolyn. He called stating that his leg is getting slightly more red. Heis going to be running out of antibiotics by the weekend. He didn't know if he should need more antibiotics or what he should do next for this. documented in this encounterCameron Regional Medical CenterPijodxxdft51-05-1992 History of Present illness Narrative* MEGGAN Lopez [...] a day. ergocalciferol (Vitamin D2) 1.25 MG (07125 UT) capsule TAKE 1 CAPSULE BY MOUTH once a week 12 capsule 3 glimepiride (Amaryl) 4 MG tablet Take 1 tablet (4 mg) by mouth in the morning. glucose blood (FREESTYLE TEST STRIPS) test strip 1 each by Other route Daily Use as instructed HYDROcodone-acetaminophen (Gulf Breeze) 5-325 MG tablet Take 1 tablet by [...] complication, without long-term current use of insulin ([facility]) - POCT Glycated hemoglobin, total Advised pt that his HgbA1c has increased from 7.3 to 7.8. Possibly increased due to recent infections and being less active. Medication coverage through pt's insurance does limit treatment options. Will recheck in three months. Contact office sooner if glucose increases at home. Hypertension secondary to endocrine disorders ([facility]) - lisinopril 20 MG tablet; Take 1 [...] (around 05/02/2024) for Hypertension. documented in this encounterCameron Regional Medical CenterZbokcnbblx79-27-4529 Progress note Author Carolyn Bautista [facility]Note Date/TimeJanuary 2024 2:12pm [place] [address] Wound Center Provider Note Signed Patient: Juan Bean JR MR#: [id number] : 1965 Acct:[id number] Age/Sex: 59 / M Copies to: SHAHZAD Thurston PA-C~ HPI Date of Visit Date of Visit: Date of Service: 04/02/2024 Time of Service: 14:09 Narrative HPI: 03/19/2024-Juan is a 59-year-old male who presents to [facility] wound center for evaluation and treatment of ulcers to the left lower leg and left dorsal foot. Patient was recently admitted here at [facility] due to cellulitis of the left lower [...] 2 weeks. 04/02/2024- Mr. Bean presents to [facility] wound center for follow up evaluation and [...] start?: Early March 2024 Mode of Arrival/ Product Line Manager: Personal vehicle Assistive Device Used Today: Cane Lives with:: Alone Appetite Description: Within Normal Limits Who helps w/ dressing change?: Family Smoking Status: [facility] sm[facility] Medical History (Updated 04/02/24 @ 08:24 [...] Appearance: Beefy Red, Epithelial Tissue or Bridge, Honor and Yellow Percent of Wound Bed Granulated/Red: [...] <Electronically signed by SHAHZAD Bautista> 04/02/24 1412 [facility] Work Phone: 1(146) 720-494701-27-2025 Radiology Diagnostic study [facility] [place] [address] Ultrasound Report Signed Patient: Juan Bean JR MR#: [id number] : 1965 Acct:[id number] Age/Sex: 59 / M ADM Date: 5 Loc: [facility]: Carolyn Bautista APRN Ordering Provider: [...] Alex Sandoval MD04/02/2024 3:30 PM Dictation Location: [place] [address] Tech: Joanne Lorenzo Transcribed By: GISSELL 04/02/24 1530 Dictated By: Alex Sandoval MD 04/02/24 1527 Signed By: 04/02/24 1530 [facility] Work Phone: 1(242) 907-602701-27-2025 [place] [address] Wound Center Provider Note Signed Patient: Juan Bean JR MR#: [id number] : 1965 Acct:[id number] Age/Sex: 59 / M Copies to: SHAHZAD Thurston PA-C~ HPI Date of Visit Date of Visit: Date of Service: 04/02/2024 Time of Service: 14:09 Narrative HPI: 03/19/2024Aislinn is a 59-year-old male who presents to [facility] wound center for evaluation and treatment of ulcers to the left lower leg and left dorsal foot. Patient was recently admitted here at [facility] due to cellulitis of the left lower [...] 2 weeks. 04/02/2024- Mr. Bean presents to [facility] wound center for follow up evaluation and [...] start?: Early March 2024 Mode of Arrival/ Product Line Manager: Personal vehicle Assistive Device Used Today: Cane Lives with:: Alone Appetite Description: Within Normal Limits Who helps w/ dressing change?: Family Smoking Status: Former smoker [facility] Medical History (Updated 04/02/24 @ 08:24 [...] Appearance: Beefy Red, Epithelial Tissue or Bridge, Honor and Yellow Percent of Wound Bed Granulated/Red: [...] APRN DD/ 1409 Signed By: 04/02/24 1412 [facility]01-17-2025 Telephone encounter Note* Telephone Encounter - MEGGAN Lopez - 03/23/2024 8:25 AM EST Augmentin sent in for pt. [facility] CenterRilqiyfyej06-70-6736 Miscellaneous Notes* Telephone Encounter - MEGGAN Lopez [...] been homr 10days in out ofantibiotics. David Terence Efren documented in this encounterCameron Regional Medical CenterTtgfsnazqu91-74-4848 Telephone encounter Note* Telephone Encounter - Rosario Sutherland - 03/22/2024 2:44 PM EST Lt leg is looking better but still has reddness to it. He'd like to have more antibiotics, PT states the hospital told him it would take 10 days to get better but he hasn't been homr 10days in out ofantibiotics. David Pratt Efren [facility] CenterBgeszetdxc25-77-4685 History of Present illness Narrative* MEGGAN Lopez - 03/19/2024 3:30 PM EST Images from the original note were not included. Subjective Patient ID: Juan Bean is a 59 y.o. male who presents for [facility] follow up. Flowsheet Row Patient Outreach from 03/15/2024 in [facility] with Elizabeth Nevarez LPN Hospital Information ED, Hospital or Long Term Facility Discharge? Hospital Patient has been contacted within two business days of discharge Yes Diagnosis Cellulitis, bacteremia, hypophosphatemia, hypomagnesemia, sepsis Discharge Date 03/14/24 Discharged To: Home Setting [transferred from [facility]] Discharge [facility] Engagement Call Start Time 1410 Medications [...] a day. ergocalciferol (Vitamin D2) 1.25 MG (22664 UT) capsule TAKE 1 CAPSULE BY MOUTH once a week 12 capsule 3 glimepiride (Amaryl) 4 MG tablet Take 1 tablet (4 mg) by mouth in the morning. glucose blood (FREESTYLE TEST STRIPS) test strip 1 each by Other route Daily Use as instructed HYDROcodone-acetaminophen (G[place] Breeze) 5-325 MG tablet Take 1 tablet by [...] Diagnosis Date Cholelithiasis 03/2019 Diabetes mellitus (CMS/HCC) History of [...] job that he is not currently safe [employer]. History of sepsis Symptoms improving. Advised the [...] for Appointment As Scheduled. documented in this encounterCameron Regional Medical [id number] Progress note Author Carolyn Bautista [facility] Date/TimeJanuary 2024 8:55am [place] [address] Wound Center Provider Note Signed Patient: Juan Bean JR MR#: [id number] : 1965 Acct:[id number] Age/Sex: 59 / M Copies to: SHAHZAD Thurston PA-C~ HPI Date of Visit Date of Visit: Date of Service: 03/19/2024 Time of Service: 08:41 Narrative HPI: 03/19/2024-Juan is a 59-year-old male who presents to [facility] center for evaluation and treatment of ulcers to the left lower leg and left dorsal foot. Patient was recently admitted here at [facility] due to cellulitis of the left lower [...] start?: Early March 2024 Mode of Arrival/ Product Line Manager: Personal vehicle Assistive Device Used Today: Cane Lives with:: Alone Appetite Description: Within Normal Limits Who helps w/ dressing change?: Family Smoking Status: [facility] sm[facility] Medical History (Updated 03/19/24 @ 08:43 [...] Appearance: Beefy Red, Epithelial Tissue or Bridge, Honor and Yellow Percent of Wound Bed Granulated/Red: 90 Percent of Devitalized: 10 Length (cm): 19.5 Width (cm): 11.0 Depth (cm): 0.1 CM Sq: 214.500 Surrounding Tissue Appearance: Hyperpigmented Surrounding Tissue Temp: Warm Drainage Amount: Moderate Drainage Description: Serosanguineous Drainage Odor: No Odor Left Foot: Type: Ulcer 2nd Infection Thickness: Partial Bed Appearance: Beefy Red, Honor and Yellow Percent of Wound Bed Granulated/Red: [...] 20 Dictated By: Carolyn Bautista APRN DD/ 0 Signed By: <Electronically signed by SHAHZAD Bautista> 03/19/24 0855 [facility] Work Phone: 1(195) 175-275001-13-2025 [place] [address] Wound Center Provider Note Signed Patient: Juan Bean JR MR#: [id number] : 1965 Acct:[id number] Age/Sex: 59 / M Copies to: SHAHZAD Thurston PA-C~ HPI Date of Visit Date of Visit: Date of Service: 03/19/2024 Time of Service: 08:41 Narrative HPI: 03/19/2024-Juan is a 59-year-old male who presents to [facility] wound center for evaluation and treatment of ulcers to the left lower leg and left dorsal foot. Patient was recently admitted here at [facility] due to cellulitis of the left lower [...] start?: Early March 2024 Mode of Arrival/ Product Line Manager: Personal vehicle Assistive Device Used Today: Cane Lives with:: Alone Appetite Description: Within Normal Limits Who helps w/ dressing change?: Family Smoking Status: Former smoker [facility] Medical History (Updated 03/19/24 @ 08:43 [...] Appearance: Beefy Red, Epithelial Tissue or Bridge, Honor and Yellow Percent of Wound Bed Granulated/Red: 90 Percent of Devitalized: 10 Length (cm): 19.5 Width (cm): 11.0 Depth (cm): 0.1 CM Sq: 214.500 Surrounding Tissue Appearance: Hyperpigmented Surrounding Tissue Temp: Warm Drainage Amount: Moderate Drainage Description: Serosanguineous Drainage Odor: No Odor Left Foot: Type: Ulcer 2nd Infection Thickness: Partial Bed Appearance: Beefy Red, Honor and Yellow Percent of Wound Bed Granulated/Red: [...] 20 Dictated By: Carolyn Bautista APRN DD/ 0 Signed By: 03/19/2455 [facility]01-08-2025 Discharge summary Author Jorge Luis Mcgregor [facility] Date/TimeJanuary 2024 2:[place] [address] Discharge Summary Signed Patient: Juan Bean JR MR#: [id number] : 1965 Acct:[id number] Age/Sex: 59 / M Adm Date: 5 Loc: Room: [address] [place] [address]: Jorge Luis Mcgregor MD Copies to: Carolyn Verdin, MIKEY Mcgregor MD~ Providers Date of Discharge: 03/14/24 Discharging Provider: Jorge Luis Mcgregor Primary Care Provider: Carolyn Verdin Consults: 03/09/24 08:48 Consult to Infectious Diseases Routine Comment: Consulting Provider: KEVIN - Infectious Disease Reason For Exam: sepsis, cellulitis Has Provider Been Notified: Yes Date of Notification: 03/12/24 Time of Notification: 07:46 03/09/24 12:14 Consult to Orthopedic Surgery Routine Comment: Consulting Provider: KEVIN - [facility] Reason For Exam: Rule [...] HLD, morbidly obese?BMI 55.[address] [facility] for redness to his left leg [...] TABLET BY MOUTH ONCE DAILY Follow Up: [facility] [Outside] - 03/19/24 7:45 am (Call and pre register for this appointment by March 15 at 3pm. [phone]) Carolyn Verdin NP-C [Primary Care Provider] - [...] signed by Jorge Luis Mcgregor MD> 03/14/24 [facility] Work Phone: [phone]) 120-824001-08-[address] [address] Discharge Summary Signed Patient: Juan Bean JR MR#: [id number] : 1965 Acct:[id number] Age/Sex: 59 / M Adm Date: 5 Loc: Room: [address] [place] [address]: Jorge Luis Mcgregor MD Copies [...] Surgery Routine Comment: Consulting Provider: [facility] Reason For Exam: Rule out leg [...] HLD, morbidly obese?BMI 55.[address] [facility] for redness to his left leg [...] TABLET BY MOUTH ONCE DAILY Follow Up: [facility] [Outside] - 03/19/24 7:45 am (Call and pre register for this appointment by March 15 at 3pm. [phone]) Carolyn Verdin NP-C [Primary Care Provider] - [...] MD 03/14/24 11 58 Signed By: 03/14/24 1413 [facility]01-08-2025 Progress note Author Calvin Navarro [facility] Date/TimeJanuary 2024 10:33am [place] [address] Infect. Disease Progress Note Signed Patient: Juan Bean JR MR#: [id number] : 1965 Acct:[id number] Age/Sex: 59 / M Adm Date: 5 Loc: 3T Room: [address] [place] [address] Type: ADM IN Attending Dr: Jorge Luis [...] 5 Mg Tablet) 5 mg PO QAM [facility] Stop: 03/13/25 08:59 Last Admin: 03/14/24 08:14 Dose: 5 mg Atorvastatin Calcium (Atorvastatin 20 Mg Tablet) 20 mg PO QPM [facility] Stop: 03/09/25 20:59 Last Admin: 03/13/24 22:02 Dose: Not Given Dextrose (Dextrose 50% In Water 25 Gm/50 Ml Syringe) 0 gm IV-PUSH PRN PRN PRN Reason: Hypoglycemia Stop: 03/09/25 01:50 Enoxaparin Sodium (Enoxaparin 40 Mg/0.4 Ml Syringe) 40 mg SUBCUT BID [facility] Stop: 03/09/25 20:59 Last Admin: 03/14/24 08:12 Dose: 40 mg Ergocalciferol (Ergocalciferol 1,250 Mcg (50,000 Units) Capsule) 1,250 mcg PO Th@0900 [facility] Stop: 03/16/25 08:59 Glimepiride (Glimepiride 4 Mg Tablet) 4 mg PO BID.WITH.MEALS [facility] Stop: 03/09/25 16:59 Last Admin: 03/14/24 08:14 Dose: 4 mg Glucose (Dextrose 40% Gel 15 Gm Tube) 0 gm PO PRN PRN PRN Reason: Hypoglycemia Stop: 03/09/25 01:50 Guaifenesin (Guaifenesin Syrup 10 Ml Udc) 20 ml PO Q6H PRN PRN Reason: Cough Stop: 03/09/25 01:45 Ceftaroline Fosamil (Teflaro) 600 mg in 100 mls @ 200 mls/hr IV Q12H [facility] Last Infusion: 03/14/24 05:40 Dose: Infused Insulin Aspart (Insulin Aspart 300 Units/3 Ml) 0 units SUBCUT TID.WM.HS [facility]; Protocol Stop: 03/09/25 07:59 Last Admin: 03/14/24 08:12 Dose: 3 units Insulin Aspart (Insulin Aspart 300 Units/3 Ml) 5 units SUBCUT TID.AC [facility] Stop: 03/10/25 11:29 Last Admin: 03/14/24 08:12 Dose: 5 units Lisinopril (Lisinopril 20 Mg Tablet) 20 mg PO QPM [facility] Stop: 03/09/25 20:59 Last Admin: 03/13/24 22:00 Dose: 20 mg Magnesium Oxide (Magnesium Oxide 400 Mg Tablet) 400 mg PO DAILY [facility] Stop: 03/10/25 09:59 Last Admin: 03/14/24 08:14 Dose: 400 mg Melatonin (Melatonin 5 Mg Tablet) 5 mg PO QHS PRN PRN Reason: Insomnia Stop: 03/09/25 01:45 Last Admin: 03/13/24 22:01 Dose: 5 mg Metformin HCl (Metformin 500 Mg Tablet) 1,000 mg PO BID.WITH.MEALS [facility] Stop: 03/09/25 16:59 Last Admin: 03/14/24 08:14 Dose: 1,000 mg Metoprolol Succinate (Metoprolol Succinate 50 Mg Tab.Er.24h) 50 mg PO QAM [facility] Stop: 03/10/25 08:59 Last Admin: 03/14/24 08:14 [...] 10 Ml Syringe) 0 ml IV-PUSH QSHIFT [facility] Stop: 03/09/25 05:59 Last Admin: 03/14/24 05:03 [...] signed by MD Calvin Navarro> 03/14/24 1033 [facility] Work Phone: 1([phone]) 380-577701-08-2025 [place] [address] Infect. Disease Progress Note Signed Patient: Juan Bean JR MR#: [id number] : 1965 Acct:[id number] Age/Sex: 59 / M Adm Date: 5 Loc: Room: [address] [place] [address] Type: ADM IN Attending Dr: Jorge Luis [...] 5 Mg Tablet) 5 mg PO QAM [facility] Stop: 03/13/25 08:59 Last Admin: 03/14/24 08:14 Dose: 5 mg Atorvastatin Calcium (Atorvastatin 20 Mg Tablet) 20 mg PO QPM [facility] Stop: 03/09/25 20:59 Last Admin: 03/13/24 22:02 Dose: Not Given Dextrose (Dextrose 50% In Water 25 Gm/50 Ml Syringe) 0 gm IV-PUSH PRN PRN PRN Reason: Hypoglycemia Stop: 03/09/25 01:50 Enoxaparin Sodium (Enoxaparin 40 Mg/0.4 Ml Syringe) 40 mg SUBCUT BID [facility] Stop: 03/09/25 20:59 Last Admin: 03/14/24 08:12 Dose: 40 mg Ergocalciferol (Ergocalciferol 1,250 Mcg (50,000 Units) Capsule) 1,250 mcg PO Th@0900 [facility] Stop: 03/16/25 08:59 Glimepiride (Glimepiride 4 Mg Tablet) 4 mg PO BID.WITH.MEALS [facility] Stop: 03/09/25 16:59 Last Admin: 03/14/24 08:14 Dose: 4 mg Glucose (Dextrose 40% Gel 15 Gm Tube) 0 gm PO PRN PRN PRN Reason: Hypoglycemia Stop: 03/09/25 01:50 Guaifenesin (Guaifenesin Syrup 10 Ml Udc) 20 ml PO Q6H PRN PRN Reason: Cough Stop: 03/09/25 01:45 Ceftaroline Fosamil (Teflaro) 600 mg in 100 mls @ 200 mls/hr IV Q12H [facility] Last Infusion: 03/14/24 05:40 Dose: Infused Insulin Aspart (Insulin Aspart 300 Units/3 Ml) 0 units SUBCUT TID.WM.HS [facility]; Protocol Stop: 03/09/25 07:59 Last Admin: 03/14/24 08:12 Dose: 3 units Insulin Aspart (Insulin Aspart 300 Units/3 Ml) 5 units SUBCUT TID.AC [facility] Stop: 03/10/25 11:29 Last Admin: 03/14/24 08:12 Dose: 5 units Lisinopril (Lisinopril 20 Mg Tablet) 20 mg PO QPM [facility] Stop: 03/09/25 20:59 Last Admin: 03/13/24 22:00 Dose: 20 mg Magnesium Oxide (Magnesium Oxide 400 Mg Tablet) 400 mg PO DAILY [facility] Stop: 03/10/25 09:59 Last Admin: 03/14/24 08:14 Dose: 400 mg Melatonin (Melatonin 5 Mg Tablet) 5 mg PO QHS PRN PRN Reason: Insomnia Stop: 03/09/25 01:45 Last Admin: 03/13/24 22:01 Dose: 5 mg Metformin HCl (Metformin 500 Mg Tablet) 1,000 mg PO BID.WITH.MEALS [facility] Stop: 03/09/25 16:59 Last Admin: 03/14/24 08:14 Dose: 1,000 mg Metoprolol Succinate (Metoprolol Succinate 50 Mg Tab.Er.24h) 50 mg PO QAM [facility] Stop: 03/10/25 08:59 Last Admin: 03/14/24 08:14 [...] MD 03/14/24 1030 Signed By: 03/14/24 1033 [facility]01-07-2025 Progress note Author Jorge Luis Mcgregor [facility] Date/TimeJanuary 2024 1:11[place] [address] Hospitalist Progress Note Signed Patient: Juan Bean JR MR#: [id number] : 1965 Acct:[id number] Age/Sex: 59 / M Adm Date: 5 Loc: Room: [address] [place] [address] Type: ADM IN Attending Dr: Jorge Luis [...] by Jorge Luis Mcgregor MD> 03/13/24 1311 [facility] Work Phone: 1([phone] 205-440701-07-2025 Progress note Author Calvin Navarro [facility] Date/TimeJanuary 2024 12:43pm [place] [id number] Infect. Disease Progress Note Signed Patient: Juan Bean JR MR#: [id number] : 1965 Acct:[id number] Age/Sex: 59 / M Adm Date: 5 Loc: Room: [address] [place] [address] Type: ADM IN Attending Dr: Jorge Luis [...] 5 Mg Tablet) 5 mg PO QAM [facility] Stop: 03/13/25 08:59 Last Admin: 03/13/24 08:18 Dose: 5 mg Atorvastatin Calcium (Atorvastatin 20 Mg Tablet) 20 mg PO QPM [facility] Stop: 03/09/25 20:59 Last Admin: 03/12/24 21:33 Dose: 20 mg Dextrose (Dextrose 50% In Water 25 Gm/50 Ml Syringe) 0 gm IV-PUSH PRN PRN PRN Reason: Hypoglycemia Stop: 03/09/25 01:50 Enoxaparin Sodium (Enoxaparin 40 Mg/0.4 Ml Syringe) 40 mg SUBCUT BID [facility] Stop: 03/09/25 20:59 Last Admin: 03/13/24 08:18 Dose: 40 mg Ergocalciferol (Ergocalciferol 1,250 Mcg (50,000 Units) Capsule) 1,250 mcg PO Th@0900 [facility] Stop: 03/16/25 08:59 Glimepiride (Glimepiride 4 Mg Tablet) 4 mg PO BID.WITH.MEALS [facility] Stop: 03/09/25 16:59 Last Admin: 03/13/24 08:18 Dose: 4 mg Glucose (Dextrose 40% Gel 15 Gm Tube) 0 gm PO PRN PRN PRN Reason: Hypoglycemia Stop: 03/09/25 01:50 Guaifenesin (Guaifenesin Syrup 10 Ml Udc) 20 ml PO Q6H PRN PRN Reason: Cough Stop: 03/09/25 01:45 Ceftaroline Fosamil (Teflaro) 600 mg in 100 mls @ 200 mls/hr IV Q12H [facility] Last Admin: 03/13/24 05:56 Dose: 200 mls/hr Insulin Aspart (Insulin Aspart 300 Units/3 Ml) 0 units SUBCUT TID.WM.[facility]; Protocol Stop: 03/09/25 07:59 Last Admin: 03/13/24 08:18 Dose: 3 units Insulin Aspart (Insulin Aspart 300 Units/3 Ml) 5 units SUBCUT TID.AC [facility] Stop: 03/10/25 11:29 Last Admin: 03/13/24 08:19 Dose: 5 units Lisinopril (Lisinopril 20 Mg Tablet) 20 mg PO QPM [facility] Stop: 03/09/25 20:59 Last Admin: 03/12/24 21:33 Dose: 20 mg Magnesium Oxide (Magnesium Oxide 400 Mg Tablet) 400 mg PO DAILY [facility] Stop: 03/10/25 09:59 Last Admin: 03/13/24 08:17 Dose: 400 mg Melatonin (Melatonin 5 Mg Tablet) 5 mg PO QHS PRN PRN Reason: Insomnia Stop: 03/09/25 01:45 Last Admin: 03/12/24 21:33 Dose: 5 mg Metformin HCl (Metformin 500 Mg Tablet) 1,000 mg PO BID.WITH.MEALS [facility] Stop: 03/09/25 16:59 Last Admin: 03/13/24 08:18 Dose: 1,000 mg Metoprolol Succinate (Metoprolol Succinate 50 Mg Tab.Er.24h) 50 mg PO QAM [facility] Stop: 03/10/25 08:59 Last Admin: 03/13/24 08:17 [...] 10 Ml Syringe) 0 ml IV-PUSH QSHIFT [facility] Stop: 03/09/25 05:59 Last Admin: 03/13/24 06:45 [...] <Electronically signed by MD Calvin Navarro> 03/13/24 0778 [facility] Work Phone: 1([phone]) 995-594001-07-2025 [place] [address] Hospitalist Progress Note Signed Patient: Juan Bean JR MR#: [id number] : 1965 Acct:[id number] Age/Sex: 59 / M Adm Date: 5 Loc: Room: [address] [place] [address] Type: ADM IN Attending Dr: Jorge Luis [...] MD 03/13/24 13 10 Signed By: 03/13/[address] [place], [place] 3071101-07-2025 [place] [address] Infect. Disease Progress Note Signed Patient: Juan Bean JR MR#: [id number] : 1965 Acct:[id number] Age/Sex: 59 / M Adm Date: 5 Loc: Room: [address] [place] [address] Type: ADM IN Attending Dr: Jorge Luis [...] 5 Mg Tablet) 5 mg PO QAM [facility] Stop: 03/13/25 08:59 Last Admin: 03/13/24 08:18 Dose: 5 mg Atorvastatin Calcium (Atorvastatin 20 Mg Tablet) 20 mg PO QPM [facility] Stop: 03/09/25 20:59 Last Admin: 03/12/24 21:33 Dose: 20 mg Dextrose (Dextrose 50% In Water 25 Gm/50 Ml Syringe) 0 gm IV-PUSH PRN PRN PRN Reason: Hypoglycemia Stop: 03/09/25 01:50 Enoxaparin Sodium (Enoxaparin 40 Mg/0.4 Ml Syringe) 40 mg SUBCUT BID [facility] Stop: 03/09/25 20:59 Last Admin: 03/13/24 08:18 Dose: 40 mg Ergocalciferol (Ergocalciferol 1,250 Mcg (50,000 Units) Capsule) 1,250 mcg PO Th@0900 [facility] Stop: 03/16/25 08:59 Glimepiride (Glimepiride 4 Mg Tablet) 4 mg PO BID.WITH.MEALS [facility] Stop: 03/09/25 16:59 Last Admin: 03/13/24 08:18 Dose: 4 mg Glucose (Dextrose 40% Gel 15 Gm Tube) 0 gm PO PRN PRN PRN Reason: Hypoglycemia Stop: 03/09/25 01:50 Guaifenesin (Guaifenesin Syrup 10 Ml Udc) 20 ml PO Q6H PRN PRN Reason: Cough Stop: 03/09/25 01:45 Ceftaroline Fosamil (Teflaro) 600 mg in 100 mls @ 200 mls/hr IV Q12H [facility] Last Admin: 03/13/24 05:56 Dose: 200 mls/hr Insulin Aspart (Insulin Aspart 300 Units/3 Ml) 0 units SUBCUT TID.WM.HS [facility]; Protocol Stop: 03/09/25 07:59 Last Admin: 03/13/24 08:18 Dose: 3 units Insulin Aspart (Insulin Aspart 300 Units/3 Ml) 5 units SUBCUT TID.AC [facility] Stop: 03/10/25 11:29 Last Admin: 03/13/24 08:19 Dose: 5 units Lisinopril (Lisinopril 20 Mg Tablet) 20 mg PO QPM [facility] Stop: 03/09/25 20:59 Last Admin: 03/12/24 21:33 Dose: 20 mg Magnesium Oxide (Magnesium Oxide 400 Mg Tablet) 400 mg PO DAILY [facility] Stop: 03/10/25 09:59 Last Admin: 03/13/24 08:17 Dose: 400 mg Melatonin (Melatonin 5 Mg Tablet) 5 mg PO QHS PRN PRN Reason: Insomnia Stop: 03/09/25 01:45 Last Admin: 03/12/24 21:33 Dose: 5 mg Metformin HCl (Metformin 500 Mg Tablet) 1,000 mg PO BID.WITH.MEALS [facility] Stop: 03/09/25 16:59 Last Admin: 03/13/24 08:18 Dose: 1,000 mg Metoprolol Succinate (Metoprolol Succinate 50 Mg Tab.Er.24h) 50 mg PO QAM [facility] Stop: 03/10/25 08:59 Last Admin: 03/13/24 08:17 [...] 10 Ml Syringe) 0 ml IV-PUSH QSHIFT [facility] Stop: 03/09/25 05:59 Last Admin: 03/13/24 06:45 [...] MD 03/13/24 1240 Signed By: 03/13/24 1243 [facility]01-06-2025 Progress note Author Jorge Luis Mcgregor [facility] Date/TimeJanuary 2024 10:54am [place] [address] Hospitalist Progress Note Signed Patient: Juan Bean JR MR#: [id number] : 1965 Acct:[id number] Age/Sex: 59 / M Adm Date: 5 Loc: 3T Room: [address] [place] [address] Type: ADM IN Attending Dr: Jorge Luis [...] Dose Route Start Last Admin Trade Name Elias PRN Reason Stop Dose Admin Acetaminophen 1,000 [...] signed by Jorge Luis Mcgregor MD> 03/12/24 1057 [facility] Work Phone: 1(981) 179-538301-06-2025 Consult note Author Calvin Navarro [facility] Date/TimeJanuary 2024 10:25am [place] [address] Infect. Disease Consult Note Signed Patient: Juan Bean JR MR#: [id number] : 1965 Acct:[id number] Age/Sex: 59 / M Adm Date: 5 Loc: Room: [address] [place] [address] Type: ADM IN Attending Dr: Jorge Luis [...] diabetes and morbid obesity who came from [facility] for redness on his left leg. He was given vancomycin and Zosyn and apparently received this cath [facility] as well. From March 07 are [...] negative unless noted below or in [facility] Medical History (Updated 03/12/24 @ 10:24 [...] 2.5 Mg Tablet) 2.5 mg PO QAM [facility] Stop: 03/09/25 12:59 Last Admin: 03/12/24 08:04 Dose: 2.5 mg Atorvastatin Calcium (Atorvastatin 20 Mg Tablet) 20 mg PO QPM [facility] Stop: 03/09/25 20:59 Last Admin: 03/11/24 21:18 Dose: 20 mg Dextrose (Dextrose 50% In Water 25 Gm/50 Ml Syringe) 0 gm IV-PUSH PRN PRN PRN Reason: Hypoglycemia Stop: 03/09/25 01:50 Enoxaparin Sodium (Enoxaparin 40 Mg/0.4 Ml Syringe) 40 mg SUBCUT BID [facility] Stop: 03/09/25 20:59 Last Admin: 03/12/24 08:04 Dose: 40 mg Ergocalciferol (Ergocalciferol 1,250 Mcg (50,000 Units) Capsule) 1,250 mcg PO Th@0900 [facility] Stop: 03/16/25 08:59 Glimepiride (Glimepiride 4 Mg Tablet) 4 mg PO BID.WITH.MEALS [facility] Stop: 03/09/25 16:59 Last Admin: 03/12/24 08:04 Dose: 4 mg Glucose (Dextrose 40% Gel 15 Gm Tube) 0 gm PO PRN PRN PRN Reason: Hypoglycemia Stop: 03/09/25 01:50 Guaifenesin (Guaifenesin Syrup 10 Ml Udc) 20 ml PO Q6H PRN PRN Reason: Cough Stop: 03/09/25 01:45 Piperacillin Sod/Tazobactam Sod (Zosyn) 4.5 gm in 100 mls @ 200 mls/hr IV Q6H [facility] Last Admin: 03/12/24 04:19 Dose: 200 mls/hr Vancomycin HCl (Vancomycin) 1 gm in 250 mls @ 250 mls/hr IV Q8H [facility] Last Admin: 03/12/24 08:05 Dose: 250 mls/hr Insulin Aspart (Insulin Aspart 300 Units/3 Ml) 0 units SUBCUT TID.WM.HS [facility]; Protocol Stop: 03/09/25 07:59 Last Admin: 03/12/24 08:04 Dose: 4 units Insulin Aspart (Insulin Aspart 300 Units/3 Ml) 5 units SUBCUT TID.AC [facility] Stop: 03/10/25 11:29 Last Admin: 03/12/24 08:05 Dose: 5 units Lisinopril (Lisinopril 20 Mg Tablet) 20 mg PO QPM [facility] Stop: 03/09/25 20:59 Last Admin: 03/11/24 21:18 Dose: 20 mg Magnesium Oxide (Magnesium Oxide 400 Mg Tablet) 400 mg PO DAILY [facility] Stop: 03/10/25 09:59 Last Admin: 03/12/24 08:04 Dose: 400 mg Melatonin (Melatonin 5 Mg Tablet) 5 mg PO QHS PRN PRN Reason: Insomnia Stop: 03/09/25 01:45 Last Admin: 03/10/24 21:13 Dose: 5 mg Metformin HCl (Metformin 500 Mg Tablet) 1,000 mg PO BID.WITH.MEALS [facility] Stop: 03/09/25 16:59 Last Admin: 03/12/24 08:04 Dose: 1,000 mg Metoprolol Succinate (Metoprolol Succinate 50 Mg Tab.Er.24h) 50 mg PO QAM [facility] Stop: 03/10/25 08:59 Last Admin: 03/12/24 08:04 [...] QSHIFT [facility] Stop: 03/09/25 05:59 Last Admin: 03/12/24 05:15 [...] 1011 Signed By: <Electronically signed by MD Calvni Navarro> 03/12/24 1025 [facility] Work Phone: 1(368) 919-696501-06-2025 [place] [address] Hospitalist Progress Note Signed Patient: Juan Bean JR MR#: [id number] : 1965 Acct:[id number] Age/Sex: 59 / M Adm Date: 5 Loc: Room: [address] [place] [address] Type: ADM IN Attending Dr: Jorge Luis [...] Syringe IV-PUSH 03/09/25 05:59 Not Given QSHIFT [facility] Vancomycin HCl 1 each 03/09/24 12:16 Vancomycin [...] MD 03/12/24 10 48 Signed By: 03/12/[address] [place], [place] 2656001-06-2025 [place] [address] Infect. Disease Consult Note Signed Patient: Juan Bean JR MR#: [id number] : 1965 Acct:[id number] Age/Sex: 59 / M Adm Date: 5 Loc: 3T Room: [address] [place] [address] Type: ADM IN Attending Dr: Jorge Luis [...] diabetes and morbid obesity who came from [facility] for redness on his left leg. He was given vancomycin and Zosyn and apparently received this cath [facility] as well. From March 07 are [...] are negative unless noted below or in [facility] Medical History (Updated 03/12/24 @ 10:24 [...] 20 Mg Tablet) 20 mg PO QPM [facility] Stop: 03/09/25 20:59 Last Admin: 03/11/24 21:18 Dose: 20 mg Dextrose (Dextrose 50% In Water 25 Gm/50 Ml Syringe) 0 gm IV-PUSH PRN PRN PRN Reason: Hypoglycemia Stop: 03/09/25 01:50 Enoxaparin Sodium (Enoxaparin 40 Mg/0.4 Ml Syringe) 40 mg SUBCUT BID [facility] Stop: 03/09/25 20:59 Last Admin: 03/12/24 08:04 Dose: 40 mg Ergocalciferol (Ergocalciferol 1,250 Mcg (50,000 Units) Capsule) 1,250 mcg PO Th@0900 [facility] Stop: 03/16/25 08:59 Glimepiride (Glimepiride 4 Mg Tablet) 4 mg PO BID.WITH.MEALS [facility] Stop: 03/09/25 16:59 Last Admin: 03/12/24 08:04 Dose: 4 mg Glucose (Dextrose 40% Gel 15 Gm Tube) 0 gm PO PRN PRN PRN Reason: Hypoglycemia Stop: 03/09/25 01:50 Guaifenesin (Guaifenesin Syrup 10 Ml Udc) 20 ml PO Q6H PRN PRN Reason: Cough Stop: 03/09/25 01:45 Piperacillin Sod/Tazobactam Sod (Zosyn) 4.5 gm in 100 mls @ 200 mls/hr IV Q6H [facility] Last Admin: 03/12/24 04:19 Dose: 200 mls/hr Vancomycin HCl (Vancomycin) 1 gm in 250 mls @ 250 mls/hr IV Q8H [facility] Last Admin: 03/12/24 08:05 Dose: 250 mls/hr Insulin Aspart (Insulin Aspart 300 Units/3 Ml) 0 units SUBCUT TID.WM.HS [facility]; Protocol Stop: 03/09/25 07:59 Last Admin: 03/12/24 08:04 Dose: 4 units Insulin Aspart (Insulin Aspart 300 Units/3 Ml) 5 units SUBCUT TID.AC [facility] Stop: 03/10/25 11:29 Last Admin: 03/12/24 08:05 Dose: 5 units Lisinopril (Lisinopril 20 Mg Tablet) 20 mg PO QPM [facility] Stop: 03/09/25 20:59 Last Admin: 03/11/24 21:18 Dose: 20 mg Magnesium Oxide (Magnesium Oxide 400 Mg Tablet) 400 mg PO DAILY [facility] Stop: 03/10/25 09:59 Last Admin: 03/12/24 08:04 Dose: 400 mg Melatonin (Melatonin 5 Mg Tablet) 5 mg PO QHS PRN PRN Reason: Insomnia Stop: 03/09/25 01:45 Last Admin: 03/10/24 21:13 Dose: 5 mg Metformin HCl (Metformin 500 Mg Tablet) 1,000 mg PO BID.WITH.MEALS [facility] Stop: 03/09/25 16:59 Last Admin: 03/12/24 08:04 Dose: 1,000 mg Metoprolol Succinate (Metoprolol Succinate 50 Mg Tab.Er.24h) 50 mg PO QAM [facility] Stop: 03/10/25 08:59 Last Admin: 03/12/24 08:04 [...] 10 Ml Syringe) 0 ml IV-PUSH QSHIFT [facility] Stop: 03/09/25 05:59 Last Admin: 03/12/24 05:15 [...] MD 03/12/24 1011 Signed By: 03/12/24 1025 [facility]01-05-2025 Progress note Author Gomez Sunshine [facility] Date/TimeJanuary 2024 10:12am [place] [address] Hospitalist Progress Note Signed Patient: Juan Bean JR MR#: [id number] : 1965 Acct:[id number] Age/Sex: 59 / M Adm Date: 5 Loc: 3T Room: [address] [place] [address] Type: ADM IN Attending Dr: Gomez Sunshine [...] signed by Gomez Sunshine MD> 03/11/24 1012 [facility] Work Phone: 1(173) 979-912601-05-2025 [place] [address] Hospitalist Progress Note Signed Patient: Juan Bean JR MR#: [id number] : 1965 Acct:[id number] Age/Sex: 59 / M Adm Date: 5 Loc: 3T Room: [address] [place] [address] Type: ADM IN Attending Dr: Gomez Sunshine [...] MD 03/11/24 1011 Signed By: 03/11/24 1012 [facility]01-05-2025 Progress note Author Brett Chang [facility] Date/TimeJanuary 2024 8:01[place] [id number] Orthopedic Progress Note Signed Patient: Juan Bean JR MR#: [id number] : 1965 Acct:[id number] Age/Sex: 59 / M Adm Date: 5 Loc: 3T Room: [id number] Type: ADM IN Attending Dr: Gomez Sunshine [...] Brett Chang MD 03/11/24 08 Signed By: <Electronically signed by MD Brett Chang> 03/11/24 0801 [facility] Work Phone: 1(253) 719-144201-05-2025 [place] [address] Orthopedic Progress Note Signed Patient: Juan Bean JR MR#: [id number] : 1965 Acct:[id number] Age/Sex: 59 / M Adm Date: 5 Loc: Room: [address] [place] [address] Type: ADM IN Attending Dr: Gomez Sunshine [...] Chang MD 03/11/24 08 Signed By: 03/11/24 0801 [facility]01-04-2025 Progress note Author Gomez Sunshine [facility] Date/TimeJanuary 2024 10:00am [place] [address] Hospitalist Progress Note Signed Patient: Juan Bean JR MR#: [id number] : 1965 Acct:[id number] Age/Sex: 59 / M Adm Date: Loc: 3T Room: [address] [place] [address] Type: ADM IN Attending Dr: Gomez Sunshine [...] phosphate supplementation. Documented By: Gomez Sunshine MD 03/10/2456 Signed By: <Electronically signed by Gomez Sunshine MD> 03/10/[address] [place] [address] Work Phone: [phone] 416-253101-04-2025 [place] [address] Hospitalist Progress Note Signed Patient: Juan Bean JR MR#: [id number] : 1965 Acct:[id number] Age/Sex: 59 / M Adm Date: 5 Loc: Room: [address] [place] [address] Type: ADM IN Attending Dr: Gomez Sunshine [...] Sunshine MD 03/10/24 0956 Signed By: 03/10/[address] [place], [place] 9346001-04-2025 Consult note Author Brett Chang [facility] Date/TimeJanuary 2024 7:46[place] [address] Orthopedic Consult Note Signed Patient: Juan Bean JR MR#: [id number] : 1965 Acct:[id number] Age/Sex: 59 / M Adm Date: 5 Loc: Room: [address] [place] [address] Type: ADM IN Attending Dr: Gomez Sunshine [...] negative unless noted below or in HPI [facility] Medical History Back pain Chewing tobacco [...] Neut % (Auto) 82.8, Lymph % (Auto)8.2, Florence % (Auto) 8.2, Eos % (Auto) 0.6, Baso % (Auto) 0.2, Nucleat RBC Rel Count 0.1, Neut # (Auto) 8.7 H, Lymph # (Auto) 0.9 L, Florence # (Auto) 0.9 H, Eos # (Auto) [...] Appearance Clear, Urine pH 6.0, Ur Specific Wesley 1.037H, Urine Protein 50 H, Urine Glucose [...] % (Auto) 89.3, Lymph % (Auto) 5.7, Florence % (Auto) 4.5, Eos % (Auto)0.0, Baso % (Auto) 0.5, Nucleat RBC Rel Count 0.3, Neut # (Auto) 12.4 H, Lymph #(Auto) 0.8 L, Florence # (Auto) 0.6, Eos # (Auto) 0.0, Baso # (Auto) 0.1, ESR 67 H,PT 14.3 H, INR 1.2, APTT 36.5, PHA Creatinine Clear 166.63, Sodium 131 L, Potassium 3.2 L, Tzragrbw34 L, Carbon Dioxide 29.4, Anion Gap 10.8, [...] <Electronically signed by MD Brett Chang> 03/10/24 0746 [facility] Work Phone: 1(538) 140-195001-04-2025 [place] [address] Orthopedic Consult Note Signed Patient: Juan Bean JR MR#: [id number] : 1965 Acct:[id number] Age/Sex: 59 / M Adm Date: 5 Loc: Room: [address] [place] [address] Type: ADM IN Attending Dr: Gomez Sunshine [...] negative unless noted below or in HPI [facility] Medical History Back pain Chewing tobacco [...] Neut % (Auto) 82.8, Lymph % (Auto)8.2, Florence % (Auto) 8.2, Eos % (Auto) 0.6, Baso % (Auto) 0.2, Nucleat RBC Rel Count 0.1, Neut # (Auto) 8.7 H, Lymph # (Auto) 0.9 L, Florence # (Auto) 0.9 H, Eos # (Auto) [...] Appearance Clear, Urine pH 6.0, Ur Specific Wesley 1.037H, Urine Protein 50 H, Urine Glucose [...] % (Auto) 89.3, Lymph % (Auto) 5.7, Florence % (Auto) 4.5, Eos % (Auto)0.0, Baso % (Auto) 0.5, Nucleat RBC Rel Count 0.3, Neut # (Auto) 12.4 H, Lymph #(Auto) 0.8 L, Florence # (Auto) 0.6, Eos # (Auto) 0.0, Baso # (Auto) 0.1, ESR 67 H,PT 14.3 H, INR 1.2, APTT 36.5, PHA Creatinine Clear 166.63, Sodium 131 L, Potassium 3.2 L, Sfhknewi24 L, Carbon Dioxide 29.4, Anion Gap 10.8, [...] MD 03/10/24 0740 Signed By: 03/10/24 0746 [facility]01-03-2025 Radiology Diagnostic study note [facility] Main Indian [address] [place] [address] CT Scan Report Signed Patient: Juan Bean JR MR#: [id number] : 1965 Acct:[id number] Age/Sex: 59 / M ADM Date: 5 Loc: Room: [address] [place] [address] Type: ADM IN Attending Dr: Gomez Sunshine [...] Tyrese Coon M.D.03/09/2024 7:51 PM Dictation Location: [facility]--17 Transcribed By: PWS 03/09/241950 Dictated By: Tyrese Coon II, MD 03/09/241943 Signed By: 03/09/241950 [facility] Work Phone: 1(411) 459-849201-03-2025 Progress note Author Gomez Sunshine [facility] Date/TimeJanuary 2024 12:24pm [place] [address] Hospitalist Progress Note Signed Patient: Juan Bean JR MR#: [id number] : 1965 Acct:[id number] Age/Sex: 59 / M Adm Date: 5 Loc: Room: [address] [place] [address] Type: ADM IN Attending Dr: Gomez Sunshine MD Copies to: ~ Date of Service: 03/09/2024 Subjective Subjective Narrative: Mr. Bean is a 59-year-old male with a PMH of HTN, T2DM, HLD, morbidly obese?BMI 55.[address] [facility] for redness to his left leg [...] drinks a day. Denies illicit drug use. [facility] chart review?in the emergency room he [...] tachycardia with RBBB. Family requested transfer to [facility]. He was treated with vancomycin, Zosyn and 1 dose of ceftriaxone. With IV hydration overnight during his stay. He was transferred here to [facility] as inpatient to the [facility] telemetry floor. Exam Physical Exam [...] Mg/0.4 Ml Syringe SUBCUT 03/09/25 20:59 BID [facility] Ergocalciferol mcg 03/16/24 09:00 Ergocalciferol 1,250 Mcg (50,000 Units) Capsule PO 03/16/25 08:59 QWEEK [facility] Glimepiride 4 mg 03/09/24 12:30 Glimepiride 4 Mg Tablet PO 03/09/25 12:29 BID [facility] Glucose 0 gm 03/09/24 01:51 Dextrose 40% Gel 15 Gm Tube PO 03/09/25 01:50 PRN PRN Hypoglycemia Guaifenesin 20 ml 03/09/24 01:46 Guaifenesin Syrup 10 Ml Udc PO 03/09/25 01:45 Q6H PRN Cough Piperacillin Sod/Tazobactam Sod 4.5 gm in 100 mls @ 200 mls/hr 03/09/24 04:00 03/09/24 09:09 Zosyn IV Not Given Q6H [facility] Magnesium Sulfate 4 gm in 100 mls @ 25 mls/hr 03/09/24 09:15 03/09/24 09:29 Magnesium Sulf 4 Gm-*Swfi* IV 03/09/24 13:14 25 mls/hr ONCE ONE Administration Vancomycin HCl 1.25 gm/ 275 mls @ 183.333 mls/hr 03/09/24 12:30 Dextrose IV 03/09/25 12:29 Q12H [facility] Insulin Aspart 0 units 03/09/24 08:00 03/09/24 08:46 Insulin Aspart 300 Units/3 Ml SUBCUT 03/09/25 07:59 2 units TID.WM.HS [facility] Administration Protocol Lisinopril 20 mg 03/09/24 21:00 Lisinopril 20 Mg Tablet PO 03/09/25 20:59 QPM [facility] Melatonin 5 mg 03/09/24 01:46 Melatonin 5 Mg Tablet PO 03/09/25 01:45 QHS PRN Insomnia Metoprolol Succinate 50 mg 03/10/24 09:00 Metoprolol Succinate 50 Mg Tab.Er.24h PO 03/10/25 08:59 QAM [facility] Non-Formulary Medication 1,000 mg 03/09/24 21:00 Metformin PO 03/09/25 20:59 BID [facility] Non-Formulary Medication 40 mg 03/09/24 21:00 Simvastatin [...] needed ? Venous Doppler BLE negative at [facility] ? Bibasilar atelectasis on chest x-ray ? Pep therapy Sepsis- likely due to cellulitis, septic workup received at [place] Cellulitis to LLE Lymphedema to LLE likely due to cellulitis - Blood culture x 1 with streptococcus on preliminary result, started on Vanco, pip/tazo at [place], received one dose 2gm ceftriaxone on 03/07/24, preliminary culture results on [facility] with E-coli - Repeat blood cultures, CBC, BMP, Mag, ESR, CRP - Continue pip/tazo- pharmacy to dose - Echo was performed at [facility]- please obtain results Chronic conditions HTN- [...] <Electronically signed by Gomez Sunshine MD> 03/09/24 122 [facility] Work Phone: 1([phone] 618-301701-03-2025 [place] [address] Hospitalist Progress Note Signed Patient: Juan Bean JR MR#: [id number] : 1965 Acct:[id number] Age/Sex: 59 / M Adm Date: 5 Loc: Room: [address] [place] [address] Type: ADM IN Attending Dr: Gomez Sunshine MD Copies to: ~ Date of Service: 03/09/2024 Subjective Subjective Narrative: Mr. Bean is a 59-year-old male with a PMH of HTN, T2DM, HLD, morbidly obese?BMI 55.[address] [facility] for redness to his left leg [...] drinks a day. Denies illicit drug use. [facility] chart review?in the emergency room he [...] tachycardia with RBBB. Family requested transfer to [facility]. He was treated with vancomycin, Zosyn and 1 dose of ceftriaxone. With IV hydration overnight during his stay. He was transferred here to [facility] as inpatient to the [facility] telemetry floor. Exam Physical Exam [...] Dose Route Start Last Admin Trade Name Sinq PRN Reason Stop Dose Admin Acetaminophen 1,000 [...] 03/09/24 12:30 Dextrose IV 03/09/25 12:29 Q12H [facility] Insulin Aspart 0 units 03/09/24 08:00 03/09/24 [...] 50 Mg Tab.Er.24h PO 03/10/25 08:59 QAM [facility] Non-Formulary Medication 1,000 mg 03/09/24 21:00 Metformin PO 03/09/25 20:59 BID [facility] Non-Formulary Medication 40 mg 03/09/24 21:00 Simvastatin [...] needed ? Venous Doppler BLE negative at [facility] ? Bibasilar atelectasis on chest x-ray ? Pep therapy Sepsis- likely due to cellulitis, septic workup received at [place] Cellulitis to LLE Lymphedema to LLE likely due to cellulitis - Blood culture x 1 with streptococcus on preliminary result, started on Vanco, pip/tazo at [place], received one dose 2gm ceftriaxone on 03/07/24, [facility] - Repeat blood cultures, CBC, BMP, Mag, ESR, CRP - Continue pip/tazo- pharmacy to dose - Echo was performed at [facility]- please obtain results Chronic conditions HTN- [...] MD 03/09/24 1222 Signed By: 03/09/24 1224 [facility]01-03-2025 History and physical note Author Yecenia Meléndez [facility] Date/TimeJanuary 2024 8:48[place] [address] Hospitalist H&P Signed Patient: Juan Bean JR MR#: [id number] : 1965 Acct:[id number] Age/Sex: 59 / M Adm Date: 5 Loc: 3T Room: [address] [place] [address] Type: ADM IN Attending Dr: Gomez Sunshine MD Copies to: NON STAFF Calvin Son, DO Yecenia Meléndez, SHAHZAD Sunshine MD~ HPI DATE OF EXAMINATION: 03/09/24 CHIEF COMPLAINT: left leg red HISTORY OF PRESENT ILLNESS: Mr. Bean is a 59-year-old male with a PMH of HTN, T2DM, HLD, morbidly obese?BMI 55.[address] [facility] for redness to his left leg [...] drinks a day. Denies illicit drug use. [facility] chart review?in the emergency room he [...] tachycardia with RBBB. Family requested transfer to [facility]. He was treated with vancomycin, Zosyn and 1 dose of ceftriaxone. With IV hydration overnight during his stay. He was transferred here to [facility] as inpatient to the [facility] telemetry floor. Review of Systems Review of Systems Review of systems: A 10 point review of systems was obtained, negative unless noted in the HPI or below. 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 Venous Doppler BLE negative at [facility] ? Bibasilar atelectasis on chest x-ray ? Pep therapy Sepsis- likely due to cellulitis, septic workup received at [place] Cellulitis to LLE Lymphedema to E likely due to cellulitis - Blood culture x 1 with streptococcus on preliminary result, started on Vanco, pip/tazo at [place], received one dose 2gm ceftriaxone on 03/07/24, preliminary culture results on [facility] with E-coli - Repeat blood cultures, CBC, BMP, Mag, ESR, CRP - Continue pip/tazo- pharmacy to dose - Echo was performed at [facility]- please obtain results Chronic conditions HTN- [...] <Electronically signed by Calvin Son DO> 03/09/24 6538 [facility] Work Phone: 1([phone]) 512-387901-03-2025 History and physical note[address] [address] Hospitalist H&P Signed Patient: Juan Bean JR MR#: [id number] : 1965 Acct:[id number] Age/Sex: 59 / M Adm Date: 5 Loc: Room: [address] [place] [address] Type: ADM IN Attending Dr: Gomez Sunshine MD Copies to: NON STAFF Calvin Son, DO Yecenia Meléndez, DRY HOUSE WORKER Gomez Sunshine MD~ HPI DATE OF EXAMINATION: 03/09/24 CHIEF COMPLAINT: left leg red HISTORY OF PRESENT ILLNESS: Mr. Bean is a 59-year-old male with a PMH of HTN, T2DM, HLD, morbidly obese?BMI 55.[address] [facility] for redness to his left leg [...] drinks a day. Denies illicit drug use. [facility] chart review?in the emergency room he [...] tachycardia with RBBB. Family requested transfer to [facility]. He was treated with vancomycin, Zosyn and 1 dose of ceftriaxone. With IV hydration overnight during his stay. He was transferred here to [facility] as inpatient to the [facility] telemetry floor. Review of Systems Review of Systems Review of systems: A 10 point review of systems was obtained, negative unless noted in the HPI or below. 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 Venous Doppler BLE negative at [facility] ? Bibasilar atelectasis on chest x-ray ? Pep therapy Sepsis- likely due to cellulitis, septic workup received at [place] Cellulitis to LLE Lymphedema to LLE likely due to cellulitis - Blood culture x 1 with streptococcus on preliminary result, started on Vanco, pip/tazo at [place], received one dose 2gm ceftriaxone on 03/07/24, preliminary culture results on [facility] with E-coli - Repeat blood cultures, CBC, BMP, Mag, ESR, CRP - Continue pip/tazo- pharmacy to dose - Echo was performed at [facility]- please obtain results Chronic conditions HTN- [...] Meléndez APRN 03/09/24 0245 Signed By: 03/09/24 0440 03/09/24 0848 [facility]01-03-2025 Evaluation note* Diagnosis Onset Date Resolution Status Admit Date Acute hypoxic respiratory failure acuteJanuary 2024 11:05pmBacteremiaacuteJanuary 2024 11:05pmCellulitis acuteJanuary 2024 11:05pmDiabetesacuteJanuary 2024 11:05pm HypomagnesemiaacuteJanuary 2024 11:05pmHypophosphatemiaacuteJanuary 2024 11:05pmLymphedemaacuteJanuary 2024 11:05pmSepsisacuteJanuary 2024 11:05pm [facility] Work Phone: 1([phone] 101-626901-03-2025 Evaluation note* Diagnosis Onset Date Resolution Status Admit Date Cellulitis acuteJanuary 2024 11:05pmLymphedemaacuteJanuary 2024 11:05pmAcute hypoxic respiratory failureinactiveJanuary 2024 11:05pmBacteremiainactive March 08, 2024 11:05pmDiabetesinactiveMaruary 2024 11:05pmHypomagnesemia inactiveMaruary 2024 11:05pmHypophosphatemiainactiveMaruary 2024 11:05pmSepsisinactiveJanuary 2024 11:05pmCellulitisacuteJanuary 2024 8:30amHemosiderin pigmentation of lower extremity due to varicose veinsacute April 02, 2024 8:30amLymphedemaacuteJanuary 2024 8:30amPain of left calfacuteMaruary 2024 8:30amUlcer of left footacuteMaruary 2024 8:30amUlcer of left lower legacuteMaruary 2024 8:30amVenous stasis dermatitis of lower extremityacuteMaruary 2024 8:30am [facility] Work Phone: 1(774) 316-319710-23-2024 History of Present illness Narrative* MEGGAN Lopez [...] a day. ergocalciferol (Vitamin D2) 1.25 MG (93269 UT) capsule TAKE 1 CAPSULE BY MOUTH [...] (CMS/HCC) Obesity Squamous cell carcinoma of penis ([facility]/HCC) 05/2022 Past Surgical History: Procedure Laterality Date [...] complication, without long-term current use of insulin ([facility]) - POCT Glycated hemoglobin, total Advised pt that his HgbA1c has increased to 7.3. He had a recent change in his diet and was eating unhealthier foods at lunch consistently. Discussed healthier options for snacks or quick meal solutions. Limit simple sugars and carbs. Will recheck in three months. His insurance does not cover GLP class medications. Primary hypertension ([facility]) Patient's blood pressure is currently stable. Continue with current medications and I will continueto monitor. Morbid obesity ([facility]) Pt has gained 21 pounds since his last appointment. Unable to continue the Adipex for the patient at this time as the benefits are no longer outweighing the potential risks of the medication. Encouraged him to work on improving his diet. Stay active, can re-evaluate in three months. Follow up in about 3 months (around 03/29/2024) for Diabetes. documented in this [facility]10-22-2024 Telephone encounter Note* Telephone Encounter - MEGGAN Lopez - 12/27/2023 10:02 AM EDT OARRS reviewed, [id number] Miscellaneous Notes* Telephone Encounter - MEGGAN Lopez - 12/27/2023 10:02 AM EDT OARRS reviewed, Rx sent into patient's pharmacy. * Telephone Encounter - Chioma Webb - 12/27/2023 9:06 AM EDT phentermine (Adipex-P) 37.5 MG tablet Ddm in [place] documented in this [facility]10-22-2024 Telephone encounter Note* Telephone Encounter - Chioma Webb - 12/27/2023 9:06 AM EDT phentermine (Adipex-P) 37.5 MG tablet Ddm in [place] [facility] CenterCnehidqszw12-63-6577 Telephone encounter Note* Telephone Encounter - MEGGAN Lopez - 11/23/2023 8:49 AM EDT Yes, med was already sent [facility] [id number] Miscellaneous Notes* Telephone Encounter - MEGGAN Lopez - 11/23/2023 8:49 AM EDT Yes, med was already sent * Telephone Encounter - Alysha Kent MA - 11/23/2023 8:33 AM EDT This looks as though it was sent in on 11/20 documented in this encounterC[facility] CenterHmjemeruyb14-52-2859 Telephone encounter Note* Telephone Encounter - Alysha Kent MA - 11/23/2023 8:33 AM EDT This looks as though it was sent in on 11/20 [facility] CenterUyqryigstr62-22-1878 Telephone encounter Note* Telephone Encounter - MEGGAN Lopez - 11/21/2023 9:57 AM EDT OARRS reviewed, Rx sent into patient's pharmacy. [place] [id number] Miscellaneous Notes* Telephone Encounter - MEGGAN Lopez - 11/21/2023 9:57 AM EDT OARRS reviewed, Rx sent into patient's pharmacy. * Telephone Encounter - Rosario Sutherland - 11/21/2023 9:14 AM EDT phentermine (Adipex-P) 37.[facility] [place] documented in this [facility] CenterIqvonoqwvf02-34-7908 Telephone encounter Note* Telephone Encounter - Rosario Sutherland - 11/21/2023 9:14 AM EDT phentermine (Adipex-P) 37.5 MG [facility] [place] [facility] CenterIkhleeylmd68-14-7812 Telephone encounter Note* Telephone Encounter - MEGGAN Lopez - 10/25/2023 4:03 PM EDT OARRS reviewed, Rx sent into patient's pharmacy. [facility] CenterFdgxoshsau43-97-2469 Miscellaneous Notes* Telephone Encounter - MEGGAN Lopez - 10/25/2023 4:03 PM EDT OARRS reviewed, Rx sent into patient's pharmacy. documented in this [facility]11-29-2023 Evaluation note* Encounter Date Diagnosis Assessment Notes [...] call the office if his symptoms worsen. [facility] Other 11-29-2023 History of Present illness Narrative* [...] kit 0 ergocalciferol (Vitamin D2) 1.25 MG (20949 UT) capsule Take 1 capsule (1.25 mg) [...] Medication Follow Up, Hypertension. documented in this encounterCamer[facility] CenterCgxhudcwbj45-07-0658 Evaluation note* Encounter Date Diagnosis Assessment Notes [...] negative findings were considered in medical decision-making. [facility] Other 06-15-2023 Miscellaneous Notes* Telephone Encounter - Víctor Rosales [...] needed. Víctor Rosales MD [facility] NoteHNO ID: [id number] Author: Elena Teran APRN.GREENKEEPER Service: ? Author Type: Nurse Mucking Machine Operator Type: Anesthesia Procedure Notes Filed: 08/13/2022 3:45 PM Note Text: ANESTHESIOLOGY PROCEDURE NOTE Airway General Information Procedure Start Time/Medication Administration: 08/13/2022 3:07 PM Procedure End Time: 08/13/2022 3:08 PM Patient location during procedure: OR Timeout Performed Pre-procedure: timeout performed Consent Obtained: Yes Patient identity confirmed: patient sedated or unresponsive and arm band Staffing Anesthesiologist: Brennan Henley MD GREENKEEPER: Elena Teran APRN.GREENKEEPER Performed by: GREENKEEPER Indications and Patient Condition Indications for airway [...] with Mcmahon and stylette. SIGNATURE: Elena Teran APRN.CRNA PATIENT NAME: Juan Bean DATE: August 13, 2022 TIME: 3:38 PM CSN: [id number]06[facility] NoteThis case was seen in consultation with Drs. Florentin Shirley, Hema Edwards and Rita Funez who agree with the above interpretation.[facility] Comment on above:Order Comment: Specimen Type: TISSUE SPECIMENOrdering Facility: [facility] Address: [address] [place] [address] Performed By: #### S ####[facility] LABCLIA [id number] [address]05-08-2023 Note Patient Outreach (UROLMN) JUAN BEAN ([id number]) 1965 M Date Time Provider Department 07/12/22 VÍCTOR ROSALES During your visit today, we recorded the following information about you: Allergies As of Date: 07/12/2022 (No Known Allergies) Date Reviewed: 07/12/2022 Reviewed by: ADELA Cranadll - Fully Assessed Visit Diagnosis:Screening for genitourinary condition [Z13.89] Order(s):URINALYSIS, REFLEX MICROSCOPIC [NBT2002] Order #: [id number]. #:[id number] Prescriptions as of 07/15/2022 - amLODIPine (NORVASC) [...] (HC*07/12/2022 Encounter Status:Closed by ERLINDA GONZALEZ on 07/15/22[facility] 07-12-2022 NoteHNO ID: [id number] Author: Víctor Rosales MD Service: ? Author Type: Physician Type: Progress Notes Filed: 07/12/2022 9:40 AM Note Text: [facility] NEW PATIENT HISTORY AND [...] for internal providers or letter via the [email or web address] Postal [employer] for external providers. HISTORY CHIEF [...] care with the res (more content not included)...[facility]05-08-2023 History of Present illness Narrative* Víctor Rosales MD - 07/12/2022 9:18 AM EDT [facility] NEW PATIENT HISTORY AND [...] for internal providers or letter via the [employer] for external p roviders. HISTORY [...] Service Time: 9:37 AM [facility] Progress note Author Silvio Yu [facility] June 22, 2022 9:03amNote Date/TimeApril 2022 8:21[facility] [place] [id number] Hem/Onc Follow Up Note - OP Signed Patient: Juan Bean JR MR#: [id number] : 1965 Acct:[id number] Age/Sex: 57 / M Type: REG RCR [...] he is a T1b. will send to [facility] path review for second opinion. We would like to ascertain he has no residual disease. Dr. Santana will speak withhis colleague Dr. Víctor Rosales at [facility] and determine if additional excision or biopsy is necessary. Follow Up Instructions: Dr. Santana is setting up to see [facility] urology. send path report to [facility] for review. ct c/a/p with contrst cbc, cmp, cea with ct day. f/u in 3 wks. 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 Hadcircumcision 05/31/22, [facility] pathology. HPI: 57-year-old male past medical history [...] for coordination of care (as documented) and itmt-lk-abtg counseling of patient and/or family. [facility] - Medical History Medical History: Medical [...] by Silvio Yu II, DO> 06/22/22 0903 [facility] Work Phone: 1(114) 650-818403-06-2023 NoteChief Complaint Referral HPI Staff Referral per [...] the plan Follow-up With When Contact Information RHONDA PROCTOR, Timmy Howard, URL [address] [address]- Additional Instructions: pt will f/u after procedure Patient Education Ramona Christiansen , personally scribed for Dr. Santana on 05/10/2022 11:00:16. . Documentation recorded by the scribe, Ramona Yost MA, accurately reflects the services(s) I performed and decisions made by me. Authenticated by (more content not included)...[facility]:Result Comment: Electronically Signed By: Timmy SANTANA MD P\.br\Date and Time Signed: 05/10/22 11:03 EST\.br\Electronically Co-Signed By: Ramona Yost MA\.br\Date and Time Co-Signed: 05/10/22 11:00 [id number] Hospital Discharge instructions Patient Education 05/10/2022 10:53:42 [...] and shower gels that have fragrance. Take txww-tbi-aasshuj and prescription medicines only as told by [...] 07/10/2009 Document Revised: 02/03/2018 Document Reviewed: 01/10/2017 [employer] Patient Education 2020 [employer]. 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 and [...] will follow-up on a as needed basis [facility]-Shane [address] DO Work Phone: Evaluation + Plan note No data available for this section [facility] Shane Evaluation noteNo assessment information available [facility] Work Phone: Evaluation note* Diagnosis Penile cancer (HCC)- Primary Malignant neoplasm of penis, part unspecified Hidden penis Morbid obesity with BMI of 45.0-49.9, adult (HCC) Morbid obesity [facility] Diagnosis Onset Date Resolution Status Squamous cell carcinoma, penis acute [facility] Work Phone: Evaluation note* Diagnosis Screening for genitourinary condition Screening for other and unspecified genitourinary condition Penile cancer (HCC) Malignant neoplasm of penis, part unspecified [facility] Diagnosis Primary hypertension (CMS/HCC)- Primary Unspecified essential hypertension Morbid obesity (CMS/HCC) Morbid obesity documented in this encounter [facility]* Diagnosis Morbid obesity (CMS/HCC) Morbid obesity documented in this encounter [facility]* Diagnosis Type 2 diabetes mellitus with other specified complication, without long-term current use of insulin (CMS/HCC)- Primary Primary hypertension (CMS/HCC) Unspecified essential hypertension Morbid obesity (CMS/HCC) Morbid obesity documented in this encounter [facility]Evaluation note* Diagnosis Morbid obesity (CMS/HCC) Morbid obesity documented in this encounter [facility]* Diagnosis Morbid obesity (CMS/HCC) Morbid obesity documented in this encounter [facility] note* Diagnosis Morbid obesity (CMS/HCC) Morbid obesity documented in this encounter [facility] note* Diagnosis Cellulitis of left lower leg- Primary History of sepsis Personal history of other infectious and parasitic disease Morbid obesity (CMS/HCC) Morbid obesity Primary hypertension (CMS/HCC) Unspecified essential hypertension documented in this encounter [facility]* Diagnosis Cellulitis of left lower leg- Primary documented in this encounter [facility]* Diagnosis Type 2 diabetes mellitus with other specified complication, without long-term current use of insulin ([facility])- Primary Hypertension secondary to endocrine disorders ([facility]/HCC) Cellulitis of left lower leg Morbid obesity ([facility]/HCC) Morbid obesity BMI 50.0-59.9, adult ([facility]) Mild tricuspid regurgitation documented in this encounter [facility]* Diagnosis Cellulitis of both lower extremities- Primary documented in this encounter [facility] note* Diagnosis Hypertension due to endocrine disorder ([facility]/HCC)- Primary Cellulitis of left lower leg Pitting edema Edema Lumbar spondylosis Lumbosacral spondylosis without myelopathy Spinal stenosis of lumbar region, unspecified whether neurogenic claudication present documented in this encounter [facility]* Diagnosis Type 2 diabetes mellitus with hyperglycemia, without long-term current use of insulin ([facility])- Primary Morbid obesity ([facility]) Morbid obesity BMI 50.0-59.9, adult ([facility]) Hypertension due to endocrine disorder ([facility]/HCC) Cellulitis of left lower leg Lymphedema Other noninfectious lymphedema Pitting edema Edema Levoscoliosis of lumbar spine documented in this encounter [facility]* Diagnosis Type 2 diabetes mellitus with other specified complication, with long-term current use of insulin- Primary Hypertension due to endocrine disorder ([facility]) Lymphedema Other noninfectious lymphedema Lumbar spondylosis Lumbosacral spondylosis without myelopathy Type 2 diabetes mellitus with hyperglycemia, with long-term current use of insulin ([facility]) Morbid obesity ([facility]) Morbid obesity BMI 50.0-59.9, adult ([facility]) documented in this encounter [facility] HealthcareEvaluation note* Diagnosis Hypertension due to endocrine disorder- Primary Type 2 diabetes mellitus with hyperglycemia, with long-term current use of insulin ([facility]) Morbid obesity ([facility]) Morbid obesity BMI 50.0-59.9, adult ([facility]) Type 2 diabetes mellitus with other specified complication, with long-term current use of insulin ([facility]) documented in this encounter [facility] HealthcareEvaluation note* Diagnosis Type 2 diabetes mellitus with hyperglycemia, with long-term current use of insulin ([facility])- Primary Primary hypertension Unspecified essential hypertension Morbid obesity ([facility]) Morbid obesity BMI 50.0-59.9, adult ([facility]) Lumbar spondylosis Lumbosacral spondylosis without myelopathy documented in this encounter [facility] HealthcareEvaluation note* Diagnosis Onset Date Resolution Status Admit Date Lumbosacral spondylosis acuteSeptember 2024 2:54pmMid back painacuteSept2024 2:54pmOther chronic painacuteSept2024 2:54pmRight hip painacuteSept2024 2:54pm [facility] Work Phone: Evaluation note* Diagnosis Cellulitis of left lower leg- Primary History of sepsis Personal history of other infectious and parasitic disease Type 2 diabetes mellitus with hyperglycemia, with long-term current use of insulin ([facility]) Type 2 diabetes mellitus with other specified complication, with long-term current use of insulin ([facility]) Difficulty sleeping Unspecified sleep disturbance documented in this encounter [facility] HealthcareHistory general Narrative - Reported* Type Description Date Medical History DM2 Medical HistoryhyperlipedemiaMedical HistoryHTNMedical Historygum diseaseMedical HistoryhypogonadismMedical Historyvit d difMedical HistoryGoutSurgical History [id number] HistorySEE ABOVE SURGERY [place] Other History general Narrative - Reported* Type Description Date Medical History DM2 Medical HistoryhyperlipedemiaMedical HistoryHTNMedical Historygum diseaseMedical HistoryhypogonadismMedical Historyvit d difMedical HistoryGoutSurgical History [id number] HistorySEE ABOVE SURGERYHospitalization Historycellulitis LLE103/2022 [place] Other Hospital Discharge instructions No data available for this section [facility] Hospital Discharge instructions Additional Instructions Take the prednisone twice a day for 5 days Take 1 hydrocodone every 6 hours for severe pain May use ice or warm moist heat Gentle stretching Continue your other medication The steroids can elevate your blood sugar so carefully watch her blood sugar in your diet Follow-up with family doctor and/or [place] [facility] Return to the ER for worsening pain unable to walk fever or any other concerns [facility] Work Phone: Progress note No data available for this section [facility] Progress note Author Silvio Yu [facility] July 13, 2022 9:24amNote Date/TimeMay 2022 9:18[facility] [address] [address] Hem/Onc Follow Up Note - OP Signed Patient: Juan Bean JR MR#: [id number] : 1965 Acct:[id number] Age/Sex: 57 / M Type: REG RCR [...] disease. comanaged by Dr. Av Rosales at [facility], plans additional biopsies under anesthesia for [...] we thave notes from dr rosales at [facility] and potential surgical report and pathology [...] 85%. 07/13/[address] av rosales at [facility]. recommended additional biopsy under anesthesia. ct [...] for coordination of care (as documented) and rydv-bt-svww counseling of patient and/or family. [facility] - Medical History Medical History: Medical [...] by Silvio Yu II, DO> 07/13/22 0924 [facility] Work Phone: Reason for referral (narrative)No reason for referral information availableProtestant Deaconess Hospital Work Phone: Chief Complaint and Reason for [...] Visit Admit Date Lumbosacral spondylosis November 12, 025 2:54pm Mid back pain November 12, [...] chronic pain December 13, 2024 3: 12pm Chief Complaint Admit Date back/leg pain November 12, 2024 2:54pm M54.9 M25.551 November 13, 2024 4:21pm TRIGGER POINT INJECTION December 06 2:16pm TPI December 13, 2024 3: 12pm Unknown January 04, 2025 9 :58am Family History No Family History Records Found Relationship Condition Age at Onset Recorded Date/T [...] 2 diabetes mellitusUnknownsister DeceasedUnknownbrotherDiabetes mellitusUnknown Advance Directives No Advanced Directives Records Found Advance Directive Response Recorded Date/ Time Advance Directives No May 14 10:32am Advance Directive Response Recorded Date/ Time Advance Directives No May 14 9:32am Summary Purpose Reason for Referral SpecialtyDiagnoses / ProceduresReferred By ContactReferred To Contact Diagnoses Morbid obesity (CMS/HCC) Carolyn Verdin PA [address] [place] [address] Referral IDStatusReasonStart DateExpiration DateVisits RequestedVisits [id number] Additional Source Comments Patient Care team informatio n (unrecognized section and content) Team Status: Active Member Role Status Dates Carolyn Verdin PA-C Primary Care Provider Active Team Status: Inactive Member Role Status Dates Timmy Santana MD Attending Provider [facility] Care ProviderActiveTeam MemberRelationshipSpecialty Start DateEnd Date Daniel Leonard MD [facility] Tixrscea29/6/13 Team Status: Active Member Role Status Dates Carolyn Verdin PA-C Primary Care Provider Active Silvio Yu II, DOAttending ProviderActiveHEATHER Caicedoeferring ProviderActiveTeam MemberRelationshipSpecialtyStart DateEnd Date Daniel Leonard MD PCP - [facility] Umxhbvon74/6/13Team MemberRelationshipSpecialtyStart DateEnd Date Carolyn Verdin [address] [place] [address] PCP - [facility]07/27/22 Team Status: Inactive Member Role Status Dates Carolyn Verdin , MEGGAN-Falguni Primary Care Provider Active Roya Childs , VAULT KEEPER-BCEmergency ProviderActiveTeam MemberRelationship SpecialtyStart DateEnd Date Carolyn Verdin PA [address] [place] [address] PCP - [facility] [employer]08/05/22 Manish Rodriguez MD [address] [place] [address] PCP - [facility]07/13/22Team MemberRelationshipSpecialtyStart Date End Date Carolyn Verdin PA [address] [place] [address] PCP - [facility] [employer]08/05/22 Manish Rodriguez MD [address] [place] [address] [facility]07/13/22Team MemberRelationshipSpecialtyStart Date End Date Manish Rodriguez MD [address] [place] [address] [facility] - [facility]07/13/22 Manish Rodriguez MD [address] [place] [address] PCP - [facility] [employer]03/07/1811Team MemberRelationshipSpecialty Start DateEnd Date Manish Rodriguez MD [address] [place] [address] PCP - [facility]07/13/22 Manish Rodriguez MD [address] [place] [address] [facility] - [facility]03/07/1811Team MemberRelationshipSpecialty Start DateEnd Date Manish Rodriguez MD [address] [place] [address] PCP - [facility]07/13/22 Manish Rodriguez MD [address] [place] [address] [facility] - [facility]03/07/1811Te MemberRelationshipSpecialty Start DateEnd Date Manish Rodriguez MD [address] [place] [address] PCP - [facility]07/13/22 Manish Rodriguez MD [address] [place] [address] [facility] - [facility]03/07/1811Te MemberRelationshipSpecialty Start DateEnd Date Manish Rodriguez MD [address] [place] [address] PCP - [facility]07/13/22 Manish Rodriguez MD [address] [place] [address] [facility] - [employer]03/07/1811Team MemberRelationshipSpecialty Start DateEnd Date Manish Rodriguez MD [address] [facility] [address] [place] [address] PCP - GeneralInternal Medicine07/13/22 Manish Rodriguez MD [address] [place] [address] PCP - [employer]03/07/1811 Team Status: Active Member Role Status Dates NON STAFF Primary Care Provider Active Team Status: Inactive Member Role Status Dates Mike Phelan MD Attending Provider Active Sta rt: March 07, 2024 End: March 07, 2024 Team Status: Active Member Role Status Dates NON STAFF Primary Care Provider Active Start: March 08, 2024 Calvin Son DOAdmit Provider, Attending ProviderActiveStart: March 08, 2024 Team Status: Active Member Role Status Dates Carolyn Verdin NP-C Primary Care Provider Active Team Status: Inactive Member Role Status Dates Calvin Son DO Admit Provider Active Start: March 08, 2024 End: March 14, 2024Thdennis Chang MDOther ProviderActiveStart: March 08, 2024 End: March 14siva Casanova MDOther ProviderActiveStart: March 08, 2024 End: March 14, 2024Jeaga Ovalle NP-COther ProviderActiveStart: March 08, 2024 End: March 14, 2024Jupatricia Graf DOOther ProviderActiveStart: March 08, 2024 End: March 14, 2024Marek Mullen II, MDOther ProviderActiveStart: March 08, 2024 End: March 14, 2024Waldemar Rizzo DOOther ProviderActiveStart: March 08, 2024 End: March 14, 2024Obarichi Mcgregor MDAttending ProviderActiveStart: March 08, 2024 End: March 14, 2024Calvin Navarro MDOther ProviderActiveStart: March 08, 2024 End: March 14, 2024Caorlyn Verdin NP-CPrimary Care ProviderActiveStart: March 08, 2024 End: March 14, 2024 Team Status: Active Member Role Status Dates NON STAFF Primary Care Provider Active Start: March 10, 2024 Calvin Son DOVini ProviderActiveStart: March 10, 2024 Gomez Sunshine MDOther ProviderActiveStart: March 10, 2024 Brett Chang , Andrew ProviderActiveStart: March 10, 2024 Team Status: Active Member Role Status Dates NON STAFF Primary Care Provider Active Start: March 12, 2024 Calvin Son DOAdmit ProviderActiveStart: March 12, 2024 Brett Chang MDOther ProviderActiveStart: March 12, 2024 Nelda Casanova MDOther ProviderActiveStart: March 12, 2024 Makayla Ovalle NP-COther ProviderActiveStart: March 12, 2024 Franco Graf , DOOther ProviderActiveStart: March 12, 2024 Marek Mullen II, MDOther ProviderActiveStart: March 12, 2024 Waldemar Rizzo , DOOther ProviderActiveStart: March 12, 2024 Jorge Luis Mcgregor MDOther ProviderActiveStart: March 12, 2024 Calvin Navarro MDAgiancarloending Provider, Other ProviderActiveStart: March 12, 2024 Team MemberRelationshipSpecialtyStart DateEnd Date Manish Rodriguez MD [address] [facility] [address] [place] [address] PCP - GeneralInternal Medicine07/13/22 Manish Rodriguez MD [address] [facility] [address] [place] [address] PCP - [facility] [employer]03/07/1811Team MemberRelationshipSpecialty Start DateEnd Date Manish Rodriguez MD [address] [facility] [address] [place] [address] PCP - GeneralInternal Medicine07/13/22 Manish Rodriguez MD [address] [facility] [address] [place] [address] PCP - [facility] [employer]03/07/1811Team MemberRelationshipSpecialty Start DateEnd Date Manish Rodriguez MD [address] [facility] [address] [place] [address] PCP - GeneralInternal Medicine07/13/22 Manish Rodriguez MD [address] [facility] [address] [place] [address] PCP - [facility] [employer]03/07/1811 Team Status: Active Member Role Status Dates Carolyn Verdin SYSTEMS ADMINISTRATOR-C Primary Care Provider Active Start: March 10, 2024 Yaquelin Burns ProviderActiveStart: March 10, 2024 Team Status: Inactive Member Role Status Dates Carolyn Verdin NP-C Primary Care Provider Active Start: April 02, 2024 End: April 02, 2024Cheryl Thurston ProviderActiveStart: April 02, 2024 End: April 02, 2024Team MemberRelationshipSpecialtyStart DateEnd Date Manish Rodriguez MD [address] [facility] [address] [place] [address] PCP - GeneralInternal Medicine07/13/22 Manish Rodriguez MD [address] [facility] [address] [place] [address] PCP - [facility] [employer]03/07/1811Team MemberRelationshipSpecialty Start DateEnd Date Manish Rodriguez MD [address] [facility] [address] [place] [address] [facility] - [facility]07/13/22 Manish Rodriguez MD [address] [place] [address] PCP - [facility] [employer]03/07/1811Te MemberRelationshipSpecialty Start DateEnd Date Manish Rodriguez MD [address] [place] [address] PCP - GeneralInternal Medicine07/13/22 Manish Rodriguez MD [address] [place] [address] PCP - [facility] [employer]03/07/1811Te MemberRelationshipSpecialty Start DateEnd Date Manish Rodriguez MD [address] [place] [address] [facility] - [facility]07/13/22 Manish Rodriguez MD [address] [place] [address] PCP - [facility] [employer]03/07/1811Team MemberRelationshipSpecialty Start DateEnd Date Manish Rodriguez MD [address] [place] [address] PCP - GeneralInternal Medicine07/13/22 Manish Rodriguez MD [address] [place] [address] PCP - [facility] [employer]03/07/1811Te MemberRelationshipSpecialty Start DateEnd Date Manish Rodriguez MD [address] [place] [address] [facility] - [facility]07/13/22 Manish Rodriguez MD [address] [facility] [address] [place] [address] PCP - [facility] [employer]03/07/1811 Team Status: Inactive Member Role Status Dates Carolyn Verdin , SYSTEMS ADMINISTRATOR-C Primary Care Provider Active Start: November 12, 2024 End: November 12, 2024Shra Lewis , MDAttending ProviderActiveStart: November 12, 2024 End: November 12, 2024 Team Status: Inactive Member Role Status Dates Carolyn Verdin , SYSTEMS ADMINISTRATOR-C Primary Care Provider Active Start: November 13, 2024 End: November 13, 2024Shra Lewis , MDAttending ProviderActiveStart: November 13, 2024 End: November 13, 2024 Team Status: Inactive Member Role Status Dates Carolyn Verdin , SYSTEMS ADMINISTRATOR-C Primary Care Provider Active Start: December 06, 2024 End: December 06, 2024Shra Lewis , MDAttending ProviderActiveStart: December 06, 2024 End: December 06, 2024 Team Status: Inactive Member Role Status Dates Carolyn Verdin , SYSTEMS ADMINISTRATOR-C Primary Care Provider Active Start: December 13, 2024 End: December 13, 2024Shra Lewis , CONCEPCIONttending ProviderActiveStart: December 13, 2024 End: December 13, 2024Team MemberRelationshipSpecialtyStart DateEnd Date Manish Rodriguez MD [address] [facility] [address] [place] [address] PCP - GeneralInternal Medicine07/13/22 Carolyn Verdin PA [address] [facility] [address] [place] [id number] PCP - [facility] [employer]03/07/1811 Team Status: Inactive Member Role/Relationship Status Dates Carolyn Verdin SYSTEMS ADMINISTRATOR-C Primary Care Provider Active Start: November 12, 2024 End: November 12, 2024Shra Lewis , MDAttending ProviderActiveStart: November 12, 2024 End: November 12, 2024 Team Status: Inactive Member Role/Relationship Status Dates Carolyn eVrdin SYSTEMS ADMINISTRATOR-C Primary Care Provider Active Start: November 13, 2024 End: November 13, 2024Andrew Omer ProviderActiveStart: November 13, 2024 End: November 13, 2024 Team Status: Inactive Member Role/Relationship Status Dates Carolyn Verdin SYSTEMS ADMINISTRATOR-C Primary Care Provider Active Start: December 06, 2024 End: December 06, 2024ShAndrew Venegas ProviderActiveStart: December 06, 2024 End: December 06, 2024 Team Status: Inactive Member Role/Relationship Status Dates Carolyn Verdin SYSTEMS ADMINISTRATOR-C Primary Care Provider Active Start: December 13, 2024 End: December 13, 2024Andrew Omer ProviderActiveStart: December 13, 2024 End: December 13, 2024 Team Status: Inactive Member Role/Relationship Status Dates Dot Chua MD Attending Provider Active Sta rt: January 04, 2025 End: January 04, 2025Team MemberRelationshipSpecialtyStart DateEnd Date Manish Rodriguez MD [address] [facility] [address] [place] [address] [facility]22 Carolyn Verdin PA [address] [facility] [address] [place] [address] PCP - [facility] [place] [facility]03/07/1811Team MemberRelationshipSpecialty Start DateEnd Date Manish Rodriguez MD [address] [facility] [address] [place] [address] [facility] - [facility] [place]07/13/22 Carolyn Verdin PA [address] [facility] [address] [place] [address] PCP - [facility] [place] [employer]03/07/1811 Goals (unrecognized section and content) Goals may be documented in a n alternate section (unrecognized sect ion and content) No Status Records FoundNo Status Records FoundNo Status Records FoundNo Status Records FoundNo Status Records FoundNo Status Records FoundNo Status Records Found INFORMATION SOURCE (unrecogn ized section and content) DATE CREATED AUTHOR 05/21/2022 [facility] DATE CREATED AUTHOR AUTHOR'S ORGANIZ ATION 05/21/2022 [employer] DATE CREATED AUTHOR AUTHOR'S ORGANIZ ATION 08/19/2022 [facility] DATE CREATED AUTHOR AUTHOR'S ORGANIZ ATION 11/10/2022 [facility] DATE CREATED AUTHOR AUTHOR'S ORGANIZ ATION 05/18/2024 [facility] DATE CREATED AUTHOR AUTHOR'S ORGANIZ ATION 01/09/2025 [facility] DATE CREATED AUTHOR AUTHOR'S ORGANIZ ATION 01/13/2025 [facility] EPIC Source Comments (unrecognize d section and content) In the event this informatio n is protected by the Federal Confidentiality of Alcohol and Drug Abuse Patient Records regulations: The Federal rules restrict any use of the information to criminally investigate or prosecute any alcohol or drug abuse patient.[facility] HospitalIn the event this information is protected by the Federal Confidentiality of Alcohol and Drug Abuse Patient Records regulations: The Federal rules restrict any use of the information to criminally investigate or prosecute any alcohol or drug abuse patient.[facility] HospitalIn the event this information is protected by the Federal Confidentiality of Alcohol and Drug Abuse Patient Records regulations: The Federal rules restrict any use of the information to criminally investigate or prosecute any alcohol or drug abuse patient.[facility] Reason for Visit (unrecogniz ed section and content) ReasonCommentsNew PatientReasonCommentsResultsReasonOnset DateCommentsMed Refill 4ReasonCommentsMed RefillReasonOnset DateCommentsMed Icghtd5510/24/2023 Adipex Drug D Hanis ClydeReasonCommentsMed RefillLisinopril-HCTZReasonCommentsMed RefillMetoprololHypertensionDenies chest pain, SOB, blurry [...] BE BASED ON THE PRIMARY CLINICAL RECORDS. [facility]. provides no warranty or guarantee of the accuracy or completeness of information in this document.
== END 2025-02-06 07:31 | disposition home or self-care (01) ==
LOC: SLEEP 02-07 11:21
PROVIDERS: PCP Physician Assistant; Visit Provider Internal Medicine
DX: G47.33 Obstructive sleep apnea (adult) (pediatric) (principal)
CPT/HCPCS: 95806